=== PATIENT | female | born 1950 | race Caucasian/White ===

== ENCOUNTER 2018-03-26 15:00 | Inpatient (IN) | payer MEDICARE, SELFPAY ==
[2018-03-26] VITALS (10 sets, daily range): BP systolic 136–171; BP diastolic 53–84; PULSE 57–130; RESP 17–22; TEMP 36.7; O2SAT 96–98; BMI 41.6; BMI 40.9
--- NOTE | 2018-03-26 15:07 | EKG12_ITS ---
Test Reason : CP Blood Pressure : / mmHG Vent. Rate : 125 BPM Atrial Rate : 133 BPM P-R Int : 000 ms QRS Dur : 102 ms QT Int : 332 ms P-R-T Axes : 000 088 -17 degrees QTc Int : 479 ms Atrial fibrillation / FLUTTER with rapid ventricular response Incomplete right bundle branch block Nonspecific ST abnormality Abnormal ECG Confirmed by JENNIFFER ONEAL, NIEVES ([id number]), editorial director SOUMYA BARTH ([id number]) on 03/29/2018 1:30:56 PM Referred By: Ana Bradford Confirmed By:NIEVES ABAD MD
--- NOTE | 2018-03-26 15:10 | RAD_ITS ---
STUDY: X-RAY CHEST REASON FOR EXAM: Female, 67 years old. Hypertension. TECHNIQUE: Single AP portable view of the chest. COMPARISON: Comparison is made with prior study dated October 23, 2016. FINDINGS: EKG electrodes are seen. The lungs are clear and expanded. Scattered calcified granulomas. There is no demonstrated pleural abnormality. Sternal cerclage wires and vascular clips are present from a prior sternotomy and coronary artery bypass graft procedure (CABG). Patient is status post aortic valve replacement. Normal mediastinum and janice. Normal visualized pulmonary arteries. Normal visualized aortic arch and descending thoracic aorta. There are diffuse degenerative changes of the visualized thoracic spine. Normal visualized ribs, clavicles, and shoulders. There is no demonstrated abnormality of the visualized soft tissue structures of the upper abdomen. RAD/Chest 1 View (Portable) IMPRESSION: No acute abnormality is seen. Electronically Signed: Krishan Booker MD at 15:38 EST Tel [phone], Service support ,
--- NOTE | 2018-03-26 15:15 | ED.VISSUMM ---
- ER Visit Summary Date of Service: 03/26/18 Chief Complaint: Chest pain and accelerated heart rate History of Present Illness: The patient is a 67 F known history of prior prosthetic valve. Prior triple bypass. COPD, CAD, pzj-iukuxul-uprjbnmgt diabetes. Prior lung CA. No history previously of A. fib. Patient states that around 130-day should accelerate heart rate starting in mid arms. Mild shortness of breath. Denies any prior history. She is on Coumadin secondary to her prosthetic valve. Physical Examination: Older female complaint chest discomfort. Vital signs are stable except for her heart rate that one in the room is in the 130 range. A. fib on the monitor. HEENT exam unremarkable. Neck nontender. Lungs clear to auscultation bilaterally. Heart irregularly irregular rate about 133. Abdomen is soft nontender. Normal bowel sounds no peritoneal signs. Remedies moves all 4. Calves nontender no edema or cords. Neurologically she is awake and alert with no focal motor deficits. Test Results: Initial EKG showed A. fib fib rate of approximately 125. Incomplete right bundle branch block. Inverted T waves in [address] elevation. Patient was given IV Cardizem 25 mg and the second EKG shows what appears to be atrial flutter with a rate of 63. No signs of ischemia. Chest x-ray shows borderline cardiomegaly and mild CHF. CBC normal white count of 6. Hemoglobin 13. Electrolytes unremarkable. Glucose of 257. She is on Coumadin her INR is 2.2 and her troponin is normal. Emergency Department Course and Treatment: Patient undergo cardiac workup. Will receive IV Cardizem for her new onset A. fib RVR. Treatment Plan: Repeat exam patient is doing better with her heart rate now in the 60s. She is still having chest pain an inch of Nitropaste was placed. I very spoken to the hospitalist who has been down to admit the patient to PCU. Disposition: Admission Impression: New onset A. fib RVR Acute chest pain History of prosthetic aortic valve with a prior triple bypass History of CAD, hypertension, wdr-zsvdfgh-tlmzdkxhm diabetes, prior lung CA This note was generated with [employer] dictation software. It may contain incorrect words, spelling, and punctuation that were not noted in review of the chart prior to signing ED Disposition - Plan for ED Patient: Chief Complaint: Chest Pain Referrals: Collin Gamez MD [Primary Care Provider] -
[2018-03-26] MEDS: dilTIAZem 25 MG/5 ML Vial IV BOLUS (15:20)
--- NOTE | 2018-03-26 15:20 | ED.DCSUM_ITS ---
- ER Visit Summary Date of Service: 03/26/18 Chief Complaint: Chest pain and accelerated heart rate History of Present Illness: The patient is a 67 F known history of prior prosthetic valve. Prior triple bypass. COPD, CAD, xis-cwjlfkq-hwonqofmn diabetes. Prior lung CA. No history previously of A. fib. Patient states that around 130-day should accelerate heart rate starting in mid arms. Mild shortness of breath. Denies any prior history. She is on Coumadin secondary to her prosthetic valve. Physical Examination: Older female complaint chest discomfort. Vital signs are stable except for her heart rate that one in the room is in the 130 range. A. fib on the monitor. HEENT exam unremarkable. Neck nontender. Lungs clear to auscultation bilaterally. Heart irregularly irregular rate about 133. Abdomen is soft nontender. Normal bowel sounds no peritoneal signs. Remedies moves all 4. Calves nontender no edema or cords. Neurologically she is awake and alert with no focal motor deficits. Test Results: Initial EKG showed A. fib fib rate of approximately 125. Incomplete right bundle branch block. Inverted T waves in [address] elevation. Patient was given IV Cardizem 25 mg and the second EKG shows what appears to be atrial flutter with a rate of 63. No signs of ischemia. Chest x- ray shows borderline cardiomegaly and mild CHF. CBC normal white count of 6. Hemoglobin 13. Electrolytes unremarkable. Glucose of 257. She is on Coumadin her INR is 2.2 and her troponin is normal. Emergency Department Course and Treatment: Patient undergo cardiac workup. Will receive IV Cardizem for her new onset A. fib RVR. Treatment Plan: Repeat exam patient is doing better with her heart rate now in the 60s. She is still having chest pain an inch of Nitropaste was placed. I very spoken to the hospitalist who has been down to admit the patient to PCU. Disposition: Admission Impression: New onset A. fib RVR Acute chest pain History of prosthetic aortic valve with a prior triple bypass History of CAD, hypertension, gld-bohibta-fmyzrqqnj diabetes, prior lung CA This note was generated with [employer] dictation software. It may contain incorrect words, spelling, and punctuation that were not noted in review of the chart prior to signing ED Disposition - Plan for ED Patient: Chief Complaint: Chest Pain Referrals: Collin Gamez MD [Primary Care Provider] -
[2018-03-26 15:26] LABS: Absolute Lymphocyte Count 1.57 X10^3/ul (0.83-4.51); Absolute Neutrophil Count 4.2 X10^3/uL (2.0-7.7); Basophil# 0.07 X10^3/uL; Basophil% 1.1 % (0-1); Eosinophil# 0.25 X10^3/uL; Eosinophils% 3.9 % (0-5); Hematocrit 40.7 % (37-47); Hemoglobin 13.1 g/dl (12.0-15.0); Lymphocyte # 1.57 X10^3/ul (4.0); Lymphocyte % 24.4 % (19-41); Mean Corp Hgb Conc 32.2 g/gl (32-36); Mean Corpuscular Hgb 26.5 pg (27.0-32.0); Mean Corpuscular Volume 82.2 fL (81-99); Mean Platelet Vol. 11.1 fl (6.2-12.0); Monocyte# 0.37 X10^3/uL; Monocyte% 5.7 % (0-10); Neutrophil # 4.16 X10^3/uL (2.7-7.7); Neutrophil % 64.6 % (47-70); Platelet Count 169 K/mm3 (150-450); RBC Distribution Width CV 16.1 % (11.6-14.6); RBC Distribution Width SD 47.7 fl (35.1-43.9); Red Blood Count 4.95 M/mm3 (4.2-5.4); White Blood Count 6.4 K/mm3 (4.4-11.0)
[2018-03-26 15:31] LABS: International Normalized Ratio 2.2; Prothrombin Time (Protime)PT. 24.7 SECONDS (11.7-14.9)
[2018-03-26 15:35] LABS: POSITIVE COUNT NO; POSITIVE DIFFERENTIAL NO; POSITIVE MORPHOLOGY NO
[2018-03-26 15:38] LABS: Anion Gap 10 (5-15); BUN 13 mg/dL (7-18); BUN/Creat Ratio 18.7 RATIO (10-20); Calcium,Total 9.1 mg/dL (8.5-10.1); Chloride 103 mmol/L (98-107); EST Glomerular Filtration Rate 89 mL/min (>60); Est Glom Filt Rate - Afr Amer 108 mL/min (>60); Estimated Creatinine Clearance 44.54 ml/min; Glucose 257 mg/dL (74-106); Potassium 4.3 mmol/L (3.5-5.1); Sodium Level 137 mmol/L (136-145)
--- NOTE | 2018-03-26 16:14 | NURSING ---
121 OBS KORAM NEW ONSET AFLUTTER AND RVR, CP
--- NOTE | 2018-03-26 16:30 | EKG12_ITS ---
Test Reason : REPEAT EKG Blood Pressure : / mmHG Vent. Rate : 063 BPM Atrial Rate : 267 BPM P-R Int : 000 ms QRS Dur : 102 ms QT Int : 430 ms P-R-T Axes : 000 072 051 degrees QTc Int : 440 ms Atrial flutter with variable A-V block Nonspecific ST abnormality Abnormal ECG Confirmed by JENNIFFER ONEAL, NIEVES ([id number]), movie editor SOUMYA BARTH ([id number]) on 03/29/2018 1:30:11 PM Referred By: Ana Bradford Confirmed By:NIEVES ABAD MD
--- NOTE | 2018-03-26 16:48 | PCM.HP.STD ---
History of Present Illness Date of Admission: 03/26/18 Chief Complaint: chest pain, palpitations The patient is a 67 year old F with an extensive past medical history as listed below including CAD, bicuspid aortic valve status post valve replacement, and hypertension. She was admitted through the ED on 03/26/2018 with a complaint of chest pain and palpitations. She had had such symptoms before and chest pain was left-sided and radiated to her right neck, and was sharp. He had no aggravating or relieving factors. They called the EMS and she was found to be in A. fib and atrial flutter with RVR. She denied any associated shortness of breath, lightheadedness weakness or dizziness, abdominal pain, diarrhea or vomiting. On admission, heart rate was found to be in the 130s; pressure was 171/84, temperature and respiratory rate were normal. She was treated on 9 7% on 4 L of oxygen. Of note patient does not wear oxygen at home. Labs showed unremarkable CBC with initial negative troponin and BMP was also markable. BNP was not checked. Chest x-ray showed clear expanded lungs with no acute abnormality. She is been admitted to be managed for new onset A. fib with RVR. [] Past Medical History Past Medical History (Chronic Problems): Chronic Problems elevated BMI (Chronic) CAD (coronary artery disease) (Chronic) Hx of CABG (Chronic) Type 2 diabetes mellitus (Chronic) Hypertension (Chronic) Chronic obstructive lung disease (Chronic) Allergies adhesive Allergy (Verified 03/26/18 15:02) Rash fluticasone propionate [From Advair Diskus] Allergy (Verified 03/26/18 15:02) Other gabapentin [From Neurontin] Allergy (Verified 03/26/18 15:02) Swelling salmeterol xinafoate [From Advair Diskus] Allergy (Verified 03/26/18 15:02) Other albuterol [From Ventolin HFA] Adverse Reaction (Verified 03/26/18 15:02) Other TOO JITTERY cephalexin monohydrate [From Keflex] Adverse Reaction (Verified 03/26/18 15:02) Other Home Medications: Ambulatory Orders Medication Instructions Recorded Aspirin [Aspirin EC] 81 mg PO DAILY 10/23/16 Furosemide [Lasix] 20 mg PO DAILY 10/23/16 Lansoprazole [Prevacid] 30 mg PO BID 10/23/16 Loratadine 10 mg PO DAILY 10/23/16 Losartan Potassium [Cozaar] 100 mg PO QHS 10/23/16 Metformin(XR) [Glucophage Xr] 1,000 mg PO BID 10/23/16 Polyethylene Glycol 3350 17 gm PO DAILY PRN 10/23/16 Warfarin [Coumadin ([facility])] 6 mg PO SUMOWEFRSA 10/23/16 glipiZIDE [Glucotrol] 10 mg PO DAILY@0730 10/23/16 Albuterol Sulfate [Ventolin Hfa] 2 puff INHALATION Q4H PRN 03/26/18 Amlodipine [Norvasc] 5 mg PO QHS 03/26/18 Atenolol [Tenormin (beta yi)] 100 mg PO DAILY 03/26/18 Atorvastatin Calcium [Lipitor] 20 mg PO QHS 03/26/18 Ferrous Sulfate 325 mg PO BIDCM 03/26/18 Isosorbide Mononitrate [Isosorbide 90 mg PO DAILY 03/26/18 Mononitrate ER] Meclizine HCl [Antivert] 25 mg PO TID PRN PRN 03/26/18 Mupirocin [Bactroban] 1 applicatio NASAL TID PRN 03/26/18 Nitroglycerin [Nitrostat] 0.4 mg SUBLINGUAL Q5M PRN 03/26/18 Nystatin 1 applicatio TP BID PRN 03/26/18 Oxybutynin Chloride [Ditropan Xl] 10 mg PO DAILY 03/26/18 Tizanidine HCl 4 mg PO QHS PRN 03/26/18 Warfarin Sodium 3 mg PO TUTH 03/26/18 Surgical History: - - aortic valve replacement 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: No pertinent psych hx 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 Denies: Chest Pressure, Chest Tightness, Edema, Heaviness, Light Headedness, Orthopnea, Paroxysmal Noc. Dyspnea, Syncope Respiratory: Reports: Shortness of Breath, Shortness of breath at rest, Shortness of breath upon exertion. Denies: Cough, Sputum production, Wheezing Gastrointestinal: Denies: Abdominal Pain, Nausea, Vomiting Genitourinary: Denies: Dysuria Musculoskeletal: Denies: Joint Pain, Joint Tenderness Neurological: Denies: Numbness, Tingling, Focal weakness Psychiatric: Denies: Anxiety, Depression, Homicidal Ideations, Suicidal Ideations Hematologic/ Lymphatic: Denies: Easy Bruising, Easy Bleeding VTE Information - Inpt Only VTE Present on Admission: No VTE Pharm Prophylaxis ordered?: No Reason prophylaxis not ordered:: Treatment Not Indicated - on coumadin. INR is therapeutic - Physical Exam General: Alert, Oriented x3, Cooperative, No apparent distress HEENT: Atraumatic, PERRLA, EOMI, Normocephalic Oral: Moist Mucosa Neck: Supple, No JVD, Negative Carotid Bruits Lungs: Clear to auscultation, Normal air movement, - - on 4L of oxygen Cardiovascular: Regular rate, Irregular Rate - and rhythm, - - mechanical aortic valve click Abdomen: Bowel Sounds Present, Soft, Non Tender, Non-Distended, No Hepato-splenomegaly Extremities: No clubbing, No cyanosis, No edema, Capillary Refill Less than 3 Seconds Skin: No rashes, No breakdown Musculoskeletal: No Tenderness to Palpation of Joints or Extremities Lymphatic: No Cervical, Supraclavicular, or Inguinal Adenopathy Neurological: Cranial nerves II-XII grossly intact Psych/Mental Status: Normal Affect, Appropriate, Alert and oriented to time, place, person, mood and affect Vital Signs Temp Pulse Resp BP Pulse Ox 98.0 F 57 L 17 145/53 H 97 03/26/18 15:02 03/26/18 16:07 03/26/18 16:07 03/26/18 16:07 03/26/18 16:07 Oxygen Flow Rate (L/min) 4 Oxygen Delivery Method Nasal Cannula Weight: 231 lb 0.711 oz Body Mass Index (BMI) 40.9 Laboratory Tests Past 24 Hrs 03/26/18 03/26/18 03/26/18 15:10 15:10 15:10 WBC 6.4 RBC 4.95 Hgb 13.1 Hct 40.7 MCV 82.2 MCH 26.5 L MCHC 32.2 RDW 16.1 H RDW Differential 47.7 H Plt Count 169 MPV 11.1 Immature Gran % (Auto) 0.300 Neut % (Auto) 64.6 Lymph % (Auto) 24.4 Gilmer % (Auto) 5.7 Eos % (Auto) 3.9 Baso % (Auto) 1.1 H Absolute Neuts (auto) 4.2 Absolute Lymphs (auto) 1.57 Total Counted Not Reportable PT 24.7 H INR 2.2 Sodium 137 Potassium 4.3 Chloride 103 Carbon Dioxide 24.0 Anion Gap 10 BUN 13 Creatinine 0.70 Estim Creat Clear Calc 44.54 Est GFR (MDRD) Af Amer 108 Est GFR (MDRD) Non-Af 89 BUN/Creatinine Ratio 18.7 Glucose 257 H Calcium 9.1 Troponin I < 0.015 Diagnostic Data Chest X-Ray 03/26/18 15:10 IMPRESSION: No acute abnormality is seen. Electronically Signed: Krishan Booker MD at 15:38 EST Tel [phone], Service support , Assessment/Plan 67-year-old female with past medical history of CAD, aortic valve replacement due to bicuspid aortic valve on Coumadin, and hypertension presenting with complaint of chest pain and palpitations. 1. New onset afib with RVR now rate controlled. HR was in 130s on admission was given one dose of IV cardizem in the Ed EKG showed Afib with HR of 130, incomplete RBBB and inverted T waves in leads 3 and aVG. CXR showed no acute cardiopulmonary process admit to PCU with telemetry consult cardiolology o/a of new onset Afib check TSH and BNP get 2D echocardiogram 2. Chest pain to rule out ACS Troponin negative. We will cycle. 2D echo ordered. For stress test tomorrow if troponins remain negative. Sublingual nitroglycerin as needed. Aspirin 81 mg daily. 3. Bicuspid aortic valve status post aortic valve replacement: On Coumadin. INR is 2.2. continue coumadin. INR target likely 2.5-3.5 4. CAD s/p triple bypass: on coumadin, statin and atenolol. 5. Hypertension: Continue BP meds 6. Type 2 diabetes mellitus: Insulin sliding scale. on glipizide and metformin; will hold. Accuchecks ACHS. Continue current diabetes medications. Hold metformin. 7. History of small cell lung cancer: Was treated with radiation and is now stable. To follow-up with oncology on discharge. 8. Goiter: States she has been told that she has enlarged thyroid with multiple nodules in it. She is told no intervention is needed. Will check TSH in light of new onset A. fib. DVT prophylaxis: On Coumadin Code status: Patient counseled extensively about different types of CODE STATUS including full code, DNR CCA and DNR CCA. Patient elects to be full code. Total [id number] time 17 minutes. Code Visit Inpatient E&M: 29069 Init Hosp L3 Procedures: 46142 Advncd Care Plan 30 Min
--- NOTE | 2018-03-26 16:49 | EKG12_ITS ---
Test Reason : CP ADMIT Blood Pressure : / mmHG Vent. Rate : 061 BPM Atrial Rate : 267 BPM P-R Int : 000 ms QRS Dur : 106 ms QT Int : 446 ms P-R-T Axes : 268 079 056 degrees QTc Int : 448 ms Atrial flutter with variable A-V block Abnormal ECG Confirmed by JENNIFFER ONEAL, NIEVES ([id number]), field map editor SOUMYA BARTH ([id number]) on 03/29/2018 2:10:55 PM Referred By: Ana Bradford Confirmed By:NIEVES ABAD MD
--- NOTE | 2018-03-26 16:52 | HP.PCM_ITS ---
History of Present Illness Date of Admission: 03/26/18 Chief Complaint: chest pain, palpitations The patient is a 67 year old F with an extensive past medical history as listed below including CAD, bicuspid aortic valve status post valve replacement, and hypertension. She was admitted through the ED on 03/26/2018 with a complaint of chest pain and palpitations. She had had such symptoms before and chest pain was left-sided and radiated to her right neck, and was sharp. He had no aggravating or relieving factors. They called the EMS and she was found to be in A. fib and atrial flutter with RVR. She denied any associated shortness of breath, lightheadedness weakness or dizziness, abdominal pain, diarrhea or vomiting. On admission, heart rate was found to be in the 130s; pressure was 171/84, temperature and respiratory rate were normal. She was treated on 9 7% on 4 L of oxygen. Of note patient does not wear oxygen at home. Labs showed unremarkable CBC with initial negative troponin and BMP was also markable. BNP was not checked. Chest x-ray showed clear expanded lungs with no acute abnor mality. She is been admitted to be managed for new onset A. fib with RVR. [] Past Medical History Past Medical History (Chronic Problems): Chronic Problems elevated BMI (Chronic) CAD (coronary artery disease) (Chronic) Hx of CABG (Chronic) Type 2 diabetes mellitus (Chronic) Hypertension (Chronic) Chronic obstructive lung disease (Chronic) Allergies adhesive Allergy (Verified 03/26/18 15:02) Rash fluticasone propionate [From Advair Diskus] Allergy (Verified 03/26/18 15:02) Other gabapentin [From Neurontin] Allergy (Verified 03/26/18 15:02) Swelling salmeterol xinafoate [From Advair Diskus] Allergy (Verified 03/26/18 15:02) Other albuterol [From Ventolin HFA] Adverse Reaction (Verified 03/26/18 15:02) Other TOO JITTERY cephalexin monohydrate [From Keflex] Adverse Reaction (Verified 03/26/18 15:02) Other Home Medications: Ambulatory Orders Medication Instructions Recorded Aspirin [Aspirin EC] 81 mg PO DAILY 10/23/16 Furosemide [Lasix] 20 mg PO DAILY 10/23/16 Lansoprazole [Prevacid] 30 mg PO BID 10/23/16 Loratadine 10 mg PO DAILY 10/23/16 Losartan Potassium [Cozaar] 100 mg PO QHS 10/23/16 Metformin(XR) [Glucophage Xr] 1,000 mg PO BID 10/23/16 Polyethylene Glycol 3350 17 gm PO DAILY PRN 10/23/16 Warfarin [Coumadin (PBKC)] 6 mg PO SUMOWEFRSA 10/23/16 glipiZIDE [Glucotrol] 10 mg PO DAILY@0730 10/23/16 Albuterol Sulfate [Ventolin Hfa] 2 puff INHALATION Q4H PRN 03/26/18 Amlodipine [Norvasc] 5 mg PO QHS 03/26/18 Atenolol [Tenormin (beta yi)] 100 mg PO DAILY 03/26/18 Atorvastatin Calcium [Lipitor] 20 mg PO QHS 03/26/18 Ferrous Sulfate 325 mg PO BIDCM 03/26/18 Isosorbide Mononitrate [Isosorbide 90 mg PO DAILY 03/26/18 Mononitrate ER] Meclizine HCl [Antivert] 25 mg PO TID PRN PRN 03/26/18 Mupirocin [Bactroban] 1 applicatio NASAL TID PRN 03/26/18 Nitroglycerin [Nitrostat] 0.4 mg SUBLINGUAL Q5M PRN 03/26/18 Nystatin 1 applicatio TP BID PRN 03/26/18 Oxybutynin Chloride [Ditropan Xl] 10 mg PO DAILY 03/26/18 Tizanidine HCl 4 mg PO QHS PRN 03/26/18 Warfarin Sodium 3 mg PO TUTH 03/26/18 Surgical History: - - aortic valve replacement 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: No pertinent psych hx NEUROCRITICAL CARE PHYSICIAN History: No pertinent NEUROCRITICAL CARE PHYSICIAN history Lives: With Family Smoking Status: Former smoker - *Family History Sibling History Items: Cancer - colorectal cancer in sister, Heart Disease Maternal History Items: Heart Disease, Hypertension Paternal History Items: Heart Disease, Hypertension Review of Systems Constitutional: Denies: Chills, Fever, Malaise, Weakness, Weight Change Eyes: Denies: Blurred vision HEENT: Denies: Head Aches, Sinus Congestion, Sinus Drainage Cardiovascular: Reports: Chest Pain, Palpitations. Denies: Chest Pressure, Chest Tightness, Edema, Heaviness, Light Headedness, Orthopnea, Paroxysmal Noc. Dyspnea, Syncope Respiratory: Reports: Shortness of Breath, Shortness of breath at rest, Shortness of breath upon exertion. Denies: Cough, Sputum production, Wheezing Gastrointestinal: Denies: Abdominal Pain, Nausea, Vomiting Genitourinary: Denies: Dysuria Musculoskeletal: Denies: Joint Pain, Joint Tenderness Neurological: Denies: Numbness, Tingling, Focal weakness Psychiatric: Denies: Anxiety, Depression, Homicidal Ideations, Suicidal Ideations Hematologic/ Lymphatic: Denies: Easy Bruising, Easy Bleeding VTE Information - Inpt Only VTE Present on Admission: No VTE Pharm Prophylaxis ordered?: No Reason prophylaxis not ordered:: Treatment Not Indicated - on coumadin. INR is therapeutic - Physical Exam General: Alert, Oriented x3, Cooperative, No apparent distress HEENT: Atraumatic, PERRLA, EOMI, Normocephalic Oral: Moist Mucosa Neck: Supple, No JVD, Negative Carotid Bruits Lungs: Clear to auscultation, Normal air movement, - - on 4L of oxygen Cardiovascular: Regular rate, Irregular Rate - and rhythm, - - mechanical aortic valve click Abdomen: Bowel Sounds Present, Soft, Non Tender, Non-Distended, No Hepato- splenomegaly Extremities: No clubbing, No cyanosis, No edema, Capillary Refill Less than 3 Seconds Skin: No rashes, No breakdown Musculoskeletal: No Tenderness to Palpation of Joints or Extremities Lymphatic: No Cervical, Supraclavicular, or Inguinal Adenopathy Neurological: Cranial nerves II-XII grossly intact Psych/Mental Status: Normal Affect, Appropriate, Alert and oriented to time, place, person, mood and affect Vital Signs Temp Pulse Resp BP Pulse Ox 98.0 F 57 L 17 145/53 H 97 03/26/18 15:02 03/26/18 16:07 03/26/18 16:07 03/26/18 16:07 03/26/18 16:07 Oxygen Flow Rate (L/min) 4 Oxygen Delivery Method Nasal Cannula Weight: 231 lb 0.711 oz Body Mass Index (BMI) 40.9 Laboratory Tests Past 24 Hrs 03/26/18 03/26/18 03/26/18 15:10 15:10 15:10 WBC 6.4 RBC 4.95 Hgb 13.1 Hct 40.7 MCV 82.2 MCH 26.5 L MCHC 32.2 RDW 16.1 H RDW Differential 47.7 H Plt Count 169 MPV 11.1 Immature Gran % (Auto) 0.300 Neut % (Auto) 64.6 Lymph % (Auto) 24.4 [place] % (Auto) 5.7 Eos % (Auto) 3.9 Baso % (Auto) 1.1 H Absolute Neuts (auto) 4.2 Absolute Lymphs (auto) 1.57 Total Counted Not Reportable PT 24.7 H INR 2.2 Sodium 137 Potassium 4.3 Chloride 103 Carbon Dioxide 24.0 Anion Gap 10 BUN 13 Creatinine 0.70 Estim Creat Clear Calc 44.54 Est GFR (MDRD) Af Amer 108 Est GFR (MDRD) Non-Af 89 BUN/Creatinine Ratio 18.7 Glucose 257 H Calcium 9.1 Troponin I < 0.015 Diagnostic Data Chest X-Ray 03/26/18 15:10 IMPRESSION: No acute abnormality is seen. Electronically Signed: Krishan Booker MD at 15:38 EST Tel [phone], Service support , Assessment/Plan 67-year-old female with past medical history of CAD, aortic valve replacement due to bicuspid aortic valve on Coumadin, and hypertension presenting with complaint of chest pain and palpitations. 1. New onset afib with RVR * now rate controlled. HR was in 130s on admission * was given one dose of IV cardizem in the Ed * EKG showed Afib with HR of 130, incomplete RBBB and inverted T waves in leads 3 and aVG. * CXR showed no acute cardiopulmonary process * admit to PCU with telemetry * consult cardiolology o/a of new onset Afib * check TSH and BNP * get 2D echocardiogram * 2. Chest pain to rule out ACS * Troponin negative. We will cycle. * 2D echo ordered. * For stress test tomorrow if troponins remain negative. * Sublingual nitroglycerin as needed. Aspirin 81 mg daily. * 3. Bicuspid aortic valve status post aortic valve replacement: * On Coumadin. INR is 2.2. continue coumadin. INR target likely 2.5-3.5 * 4. CAD s/p triple bypass: on coumadin, statin and atenolol. 5. Hypertension: Continue BP meds 6. Type 2 diabetes mellitus: Insulin sliding scale. on glipizide and metformin; will hold. Accuchecks ACHS. Continue current diabetes medications. Hold metformin. 7. History of small cell lung cancer: Was treated with radiation and is now stable. To follow-up with oncology on discharge. 8. Goiter: States she has been told that she has enlarged thyroid with multiple nodules in it. She is told no intervention is needed. Will check TSH in light of new onset A. fib. DVT prophylaxis: On Coumadin Code status: Patient counseled extensively about different types of CODE STATUS including full code, DNR CCA and DNR CCA. Patient elects to be full code. Total [id number] time 17 minutes. Code Visit Inpatient E&M: 53340 Init Hosp L3 Procedures: 69316 Advncd Care Plan 30 Min
--- NOTE | 2018-03-26 18:18 | PCM.CONS.C ---
Reason for Consult Date of Consultation: 03/26/18 Reason for Consultation: Abnormal cardiac rhythm History of Present Illness: The patient is a 67 year old F with an extensive past medical history consisting of coronary artery disease status post coronary artery bypass surgery, prosthetic aortic valve replacement and hypertension. She presented to the emergency room with complaints of chest discomfort and palpitations. She said that she had had some symptoms of chest discomfort before with chest pain radiating down the right side of her neck. She called emergency medical squad and when they saw her she was noted to be in atrial fibrillation and they brought her in to be in the emergency room. In the emergency room she was evaluated and was noted to be in atrial fibrillation with rapid ventricular response rate. She was treated with intravenous Cardizem with improvement in her heart rate. She denied any associated dizziness or diaphoresis near syncope or syncope. She does not think that she has had any episode of atrial fibrillation in the past. She has been on anticoagulation for her prosthetic valve. Cardiology was called to evaluate her. She previously was following with Dr. Wade Cramer at the [facility]. Past Medical History Allergies/Adverse Reactions: Allergies adhesive Allergy (Verified 03/26/18 15:02) Rash fluticasone propionate [From Advair Diskus] Allergy (Verified 03/26/18 17:00) chest pain gabapentin [From Neurontin] Allergy (Verified 03/26/18 17:00) Swelling of feet and legs salmeterol xinafoate [From Advair Diskus] Allergy (Verified 03/26/18 17:00) chest pains albuterol [From Ventolin HFA] Adverse Reaction (Verified 03/26/18 17:00) jittery TOO JITTERY cephalexin monohydrate [From Keflex] Adverse Reaction (Verified 03/26/18 17:00) abdominal cramping pregabalin Adverse Reaction (Verified 03/26/18 17:00) makes me slow to respond Home Medications: Ambulatory Orders Medication Instructions Recorded Aspirin [Aspirin EC] 81 mg PO DAILY 10/23/16 Furosemide [Lasix] 20 mg PO DAILY 10/23/16 Lansoprazole [Prevacid] 30 mg PO BID 10/23/16 Loratadine 10 mg PO DAILY 10/23/16 Losartan Potassium [Cozaar] 100 mg PO QHS 10/23/16 Metformin(XR) [Glucophage Xr] 1,000 mg PO BID 10/23/16 Polyethylene Glycol 3350 17 gm PO DAILY PRN 10/23/16 Warfarin [Coumadin (PBKC)] 6 mg PO SUMOWEFRSA 10/23/16 glipiZIDE [Glucotrol] 10 mg PO DAILY@0730 10/23/16 Albuterol Sulfate [Ventolin Hfa] 2 puff INHALATION Q4H PRN 03/26/18 Amlodipine [Norvasc] 5 mg PO QHS 03/26/18 Atenolol [Tenormin (beta yi)] 100 mg PO DAILY 03/26/18 Atorvastatin Calcium [Lipitor] 20 mg PO QHS 03/26/18 Ferrous Sulfate 325 mg PO BIDCM 03/26/18 Isosorbide Mononitrate [Isosorbide 90 mg PO DAILY 03/26/18 Mononitrate ER] Meclizine HCl [Antivert] 25 mg PO TID PRN PRN 03/26/18 Mupirocin [Bactroban] 1 applicatio NASAL TID PRN 03/26/18 Nitroglycerin [Nitrostat] 0.4 mg SUBLINGUAL Q5M PRN 03/26/18 Nystatin 1 applicatio TP BID PRN 03/26/18 Oxybutynin Chloride [Ditropan Xl] 10 mg PO DAILY 03/26/18 Tizanidine HCl 4 mg PO QHS PRN 03/26/18 Warfarin Sodium 3 mg PO TUTH 03/26/18 Past Medical History (Chronic Problems): Chronic Problems elevated BMI (Chronic) CAD (coronary artery disease) (Chronic) Hx of CABG (Chronic) Type 2 diabetes mellitus (Chronic) Hypertension (Chronic) Chronic obstructive lung disease (Chronic) Surgical History: coronary bypass surgery, - - aortic valve replacement 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: No pertinent psych hx INSTRUCTIONAL DEVELOPER History: No pertinent INSTRUCTIONAL DEVELOPER history - *Family History Sibling History Items: Cancer - colorectal cancer in sister, Heart Disease Maternal History Items: Heart Disease, Hypertension Paternal History Items: Heart Disease, Hypertension Lives: With Family Smoking Status: Former smoker Tobacco Use: Cigarettes Alcohol: None Drugs: None Review of Systems - Review of Systems General: Denies: Fever, Night Sweats, Fatigue HEENT: Denies: Vision Change Cardiovascular: Reports: Chest Discomfort, Palpitations. Denies: Shortness of Breath, Orthopnea, PND, Peripheral Edema, Lightheadedness, Dizziness, Near Syncope, Syncope Respiratory: Denies: Cough, Sputum Production, Hemoptysis Gastrointestinal: Denies: Indigestion, Hematemesis, Hematochezia, Melena Genitourinary: Denies: Dysuria, Hematuria Muscoloskeletal: Denies: Myalgias Skin: Denies: Rash Neurological: Denies: Dizziness Psychiatric: Denies: Anxiety Endocrine: Denies: Unexplained Weight Loss Hematologic/ Lymphatic: Denies: Anemia Subjectve: Pleasant lady in no apparent distress Objective: Vital Signs Temp Pulse Resp BP Pulse Ox 98.1 F 64 20 H 144/69 H 96 03/26/18 17:13 03/26/18 17:13 03/26/18 17:13 03/26/18 17:14 03/26/18 17:28 Oxygen Flow Rate (L/min) 3 Oxygen Delivery Method Nasal Cannula Weight: 231 lb 0.711 oz Body Mass Index (BMI) 40.9 General: Awake, Alert, Oriented x 3 HEENT: PERRL, EOMI, Sclera Non Icteric Neck: Supple, Good ROM, No Lymph Node Enlargement Lungs: Clear to auscultation Cardiovascular: Regular Rhythm, Normal S1, Normal S2, No Murmurs, No Rubs, No Gallops, [place] Prosthetic S1 Vascular: No Carotid Bruits, Normal Femoral Pulses, Normal Radial Pulses, Normal Dorsalis Pedal Pulse, Normal Posterior Tibial Pulses Abdomen: Bowel Sounds Present, Soft, Non Tender, No HSM, No Organomegaly Extremities: No Cyanosis, No Clubbing, No edema Musculoskeletal: No Erythema Skin: No Rashes Lymphatic: No Lymph Node Enlargement Neurological: No Focal Motor or Sensory Deficit Psych/Mental Status: Appropriate 03/26/18 15:10: WBC 6.4, RBC 4.95, Hgb 13.1, Hct 40.7, MCV 82.2, MCH 26.5 L, MCHC 32.2, RDW 16.1 H, RDW Differential 47.7 H, Plt Count 169, MPV 11.1, Immature Gran % (Auto) 0.300, Neut % (Auto) 64.6, Lymph % (Auto) 24.4, [place] % (Auto) 5.7, Eos % (Auto) 3.9, Baso % (Auto) 1.1 H, Absolute Neuts (auto) 4.2, Total Counted Not Reportable 12/03/18 15:10: Sodium 137, Potassium 4.3, Chloride 103, Carbon Dioxide 24.0, Anion Gap 10, BUN 13, Creatinine 0.70, Est GFR (MDRD) Af Amer 108, Est GFR (MDRD) Non-Af 89, BUN/Creatinine Ratio 18.7, Glucose 257 H, Calcium 9.1, Troponin I < 0.015 03/26/18 15:10: PT 24.7 H, INR 2.2 Rhythm: EKG: Initial EKG demonstrated atrial fibrillation with a rate of 125 bpm., Follow-up EKG demonstrates atrial flutter with a controlled ventricular response rate of 70 bpm. Assessment/Plan 1. Atrial fibrillation with rapid ventricular response rate Patient presents with recent onset atrial fibrillation flutter which responded very well to intravenous Cardizem. Would suggest continue anticoagulation with Coumadin Echocardiogram to assess her left ventricular function Agree with the increase in the beta-yi to 100 mg of atenolol We will obtain records of anticoagulation from her primary woodworking bench carpenter office. If she has been noted to be therapeutic for at least a month may consider DC cardioversion 2. Chest pain Patient has known coronary artery disease status post coronary bypass surgery Chest discomfort is somewhat atypical but thus far her cardiac enzymes are normal with no abnormal EKG findings. If enzymes remain normal may recommend a pharmacologic myocardial perfusion stress test and further treatment depending on the findings 3. 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 Coronary artery disease Patient is status post coronary bypass surgery We will continue cardiac enzymes to rule out acute coronary syndrome 5. Hypertension Pressure control appears to be fair Would recommend the addition of the beta-yi. Thank you for allowing me to participate in the care of your patient. Please don't hesitate to call if any issues arise
[2018-03-26 18:19] LABS: Partial Thromboplast Time 49.7 Seconds (24.1-36.2)
[2018-03-26 18:22] LABS: Thyroid Stim Hormone (TSH) 0.94 uIU/mL (0.358-3.74)
--- NOTE | 2018-03-26 18:23 | CON.PCM_ITS ---
Reason for Consult Date of Consultation: 03/26/18 Reason for Consultation: Abnormal cardiac rhythm History of Present Illness: The patient is a 67 year old F with an extensive past medical history consisting of coronary artery disease status post coronary artery bypass surgery, prosthetic aortic valve replacement and hypertension. She presented to the emergency room with complaints of chest discomfort and palpitations. She said that she had had some symptoms of chest discomfort before with chest pain radiating down the right side of her neck. She called emergency medical squad and when they saw her she was noted to be in atrial fibrillation and they brought her in to be in the emergency room. In the emergency room she was evaluated and was noted to be in atrial fibrillation with rapid ventricular response rate. She was treated with intravenous Cardizem with improvement in her heart rate. She denied any associated dizziness or diaphoresis near syncope or syncope. She does not think that she has had any episode of atrial fibrillation in the past. She has been on anticoagulation for her prosthetic valve. Cardiology was called to evaluate her. She previously was following with Dr. Wade Cramer at the [facility]. Past Medical History Allergies/Adverse Reactions: Allergies adhesive Allergy (Verified 03/26/18 15:02) Rash fluticasone propionate [From Advair Diskus] Allergy (Verified 03/26/18 17:00) chest pain gabapentin [From Neurontin] Allergy (Verified 03/26/18 17:00) Swelling of feet and legs salmeterol xinafoate [From Advair Diskus] Allergy (Verified 03/26/18 17:00) chest pains albuterol [From Ventolin HFA] Adverse Reaction (Verified 03/26/18 17:00) jittery TOO JITTERY cephalexin monohydrate [From Keflex] Adverse Reaction (Verified 03/26/18 17:00) abdominal cramping pregabalin Adverse Reaction (Verified 03/26/18 17:00) makes me slow to respond Home Medications: Ambulatory Orders Medication Instructions Recorded Aspirin [Aspirin EC] 81 mg PO DAILY 10/23/16 Furosemide [Lasix] 20 mg PO DAILY 10/23/16 Lansoprazole [Prevacid] 30 mg PO BID 10/23/16 Loratadine 10 mg PO DAILY 10/23/16 Losartan Potassium [Cozaar] 100 mg PO QHS 10/23/16 Metformin(XR) [Glucophage Xr] 1,000 mg PO BID 10/23/16 Polyethylene Glycol 3350 17 gm PO DAILY PRN 10/23/16 Warfarin [Coumadin (PBKC)] 6 mg PO SUMOWEFRSA 10/23/16 glipiZIDE [Glucotrol] 10 mg PO DAILY@0730 10/23/16 Albuterol Sulfate [Ventolin Hfa] 2 puff INHALATION Q4H PRN 03/26/18 Amlodipine [Norvasc] 5 mg PO QHS 03/26/18 Atenolol [Tenormin (beta yi)] 100 mg PO DAILY 03/26/18 Atorvastatin Calcium [Lipitor] 20 mg PO QHS 03/26/18 Ferrous Sulfate 325 mg PO BIDCM 03/26/18 Isosorbide Mononitrate [Isosorbide 90 mg PO DAILY 03/26/18 Mononitrate ER] Meclizine HCl [Antivert] 25 mg PO TID PRN PRN 03/26/18 Mupirocin [Bactroban] 1 applicatio NASAL TID PRN 03/26/18 Nitroglycerin [Nitrostat] 0.4 mg SUBLINGUAL Q5M PRN 03/26/18 Nystatin 1 applicatio TP BID PRN 03/26/18 Oxybutynin Chloride [Ditropan Xl] 10 mg PO DAILY 03/26/18 Tizanidine HCl 4 mg PO QHS PRN 03/26/18 Warfarin Sodium 3 mg PO TUTH 03/26/18 Past Medical History (Chronic Problems): Chronic Problems elevated BMI (Chronic) CAD (coronary artery disease) (Chronic) Hx of CABG (Chronic) Type 2 diabetes mellitus (Chronic) Hypertension (Chronic) Chronic obstructive lung disease (Chronic) Surgical History: coronary bypass surgery, - - aortic valve replacement 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: No pertinent psych hx 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 Denies: Shortness of Breath, Orthopnea, PND, Peripheral Edema, Lightheadedness, Dizziness, Near Syncope, Syncope Respiratory: Denies: Cough, Sputum Production, Hemoptysis Gastrointestinal: Denies: Indigestion, Hematemesis, Hematochezia, Melena Genitourinary: Denies: Dysuria, Hematuria Muscoloskeletal: Denies: Myalgias Skin: Denies: Rash Neurological: Denies: Dizziness Psychiatric: Denies: Anxiety Endocrine: Denies: Unexplained Weight Loss Hematologic/ Lymphatic: Denies: Anemia Subjectve: Pleasant lady in no apparent distress Objective: Vital Signs Temp Pulse Resp BP Pulse Ox 98.1 F 64 20 H 144/69 H 96 03/26/18 17:13 03/26/18 17:13 03/26/18 17:13 03/26/18 17:14 03/26/18 17:28 Oxygen Flow Rate (L/min) 3 Oxygen Delivery Method Nasal Cannula Weight: 231 lb 0.711 oz Body Mass Index (BMI) 40.9 General: Awake, Alert, Oriented x 3 HEENT: PERRL, EOMI, Sclera Non Icteric Neck: Supple, Good ROM, No Lymph Node Enlargement Lungs: Clear to auscultation Cardiovascular: Regular Rhythm, Normal S1, Normal S2, No Murmurs, No Rubs, No Gallops, [place] Prosthetic S1 Vascular: No Carotid Bruits, Normal Femoral Pulses, Normal Radial Pulses, Normal Dorsalis Pedal Pulse, Normal Posterior Tibial Pulses Abdomen: Bowel Sounds Present, Soft, Non Tender, No HSM, No Organomegaly Extremities: No Cyanosis, No Clubbing, No edema Musculoskeletal: No Erythema Skin: No Rashes Lymphatic: No Lymph Node Enlargement Neurological: No Focal Motor or Sensory Deficit Psych/Mental Status: Appropriate 03/26/18 15:10: WBC 6.4, RBC 4.95, Hgb 13.1, Hct 40.7, MCV 82.2, MCH 26.5 L, MCHC 32.2, RDW 16.1 H, RDW Differential 47.7 H, Plt Count 169, MPV 11.1, Immature Gran % (Auto) 0.300, Neut % (Auto) 64.6, Lymph % (Auto) 24.4, [place] % (Auto) 5.7, Eos % (Auto) 3.9, Baso % (Auto) 1.1 H, Absolute Neuts (auto) 4.2, Total Counted Not Reportable 12/03/18 15:10: Sodium 137, Potassium 4.3, Chloride 103, Carbon Dioxide 24.0, Anion Gap 10, BUN 13, Creatinine 0.70, Est GFR (MDRD) Af Amer 108, Est GFR (MDRD) Non-Af 89, BUN/Creatinine Ratio 18.7, Glucose 257 H, Calcium 9.1, Troponin I < 0.015 03/26/18 15:10: PT 24.7 H, INR 2.2 Rhythm: EKG: Initial EKG demonstrated atrial fibrillation with a rate of 125 bpm., Follow-up EKG demonstrates atrial flutter with a controlled ventricular response rate of 70 bpm. Assessment/Plan 1. Atrial fibrillation with rapid ventricular response rate * Patient presents with recent onset atrial fibrillation flutter which responded very well to intravenous Cardizem. * Would suggest continue anticoagulation with Coumadin * Echocardiogram to assess her left ventricular function * Agree with the increase in the beta-yi to 100 mg of atenolol * We will obtain records of anticoagulation from her primary home care associate office. If she has been noted to be therapeutic for at least a month may consider DC cardioversion * 2. Chest pain * Patient has known coronary artery disease status post coronary bypass surgery * Chest discomfort is somewhat atypical but thus far her cardiac enzymes are normal with no abnormal EKG findings. * If enzymes remain normal may recommend a pharmacologic myocardial perfusion stress test and further treatment depending on the findings * 3. Prosthetic aortic valve- * Patient has been on anticoagulation and appears to be functioning well * Obtain echocardiogram to assess the above * Obtain records to confirm an INR of 2.5-3.5 * 4. Coronary artery disease * Patient is status post coronary bypass surgery * We will continue cardiac enzymes to rule out acute coronary syndrome * 5. Hypertension * Pressure control appears to be fair * Would recommend the addition of the beta-yi. * * Thank you for allowing me to participate in the care of your patient. Please don't hesitate to call if any issues arise
[2018-03-26 18:27] LABS: BNP,B-Type NATRIURETIC PEPTIDE 150.3 pg/mL (0-100)
[2018-03-26] MEDS: Famotidine 20 MG Tablet PO (21:00)
[2018-03-26] MEDS: Pantoprazole Sodium 40 MG Tablet PO (21:00)
[2018-03-26] MEDS: Atorvastatin Calcium 20 MG Tablet PO (21:00)
[2018-03-26] MEDS: Losartan Potassium 100 MG Tablet PO (21:00)
[2018-03-26] MEDS: amLODIPine 5 MG Tablet PO (21:00)
[2018-03-26] MEDS: Insulin Lispro 100 UNIT/ML INSULN.PEN SQ (21:10)
[2018-03-26] MEDS: tiZANidine HCl 2 MG Tablet 4 MG PO (21:12)
[2018-03-26 23:31] LABS: Bedside Glucose 202 mg/dL (70-110)
[2018-03-27] VITALS (13 sets, daily range): BP systolic 131–197; BP diastolic 60–80; PULSE 61–71; RESP 12–20; TEMP 36.6–36.8; O2SAT 94–97
[2018-03-27 05:18] LABS: Absolute Lymphocyte Count 1.93 X10^3/ul (0.83-4.51); Absolute Neutrophil Count 4.1 X10^3/uL (2.0-7.7); Basophil# 0.08 X10^3/uL; Basophil% 1.1 % (0-1); Eosinophil# 0.28 X10^3/uL; Hematocrit 37.1 % (37-47); Lymphocyte # 1.93 X10^3/ul (4.0); Lymphocyte % 27.7 % (19-41); Mean Corp Hgb Conc 32.3 g/gl (32-36); Mean Corpuscular Hgb 26.8 pg (27.0-32.0); Mean Platelet Vol. 11.5 fl (6.2-12.0); Monocyte# 0.57 X10^3/uL; Monocyte% 8.2 % (0-10); Neutrophil # 4.09 X10^3/uL (2.7-7.7); Neutrophil % 58.6 % (47-70); Platelet Count 172 K/mm3 (150-450); RBC Distribution Width SD 47.7 fl (35.1-43.9); Red Blood Count 4.47 M/mm3 (4.2-5.4)
[2018-03-27 05:19] LABS: POSITIVE COUNT NO; POSITIVE DIFFERENTIAL NO; POSITIVE MORPHOLOGY NO
--- NOTE | 2018-03-27 05:30 | EKG12_ITS ---
Test Reason : AM EKG Blood Pressure : / mmHG Vent. Rate : 070 BPM Atrial Rate : 280 BPM P-R Int : 000 ms QRS Dur : 110 ms QT Int : 436 ms P-R-T Axes : 075 082 061 degrees QTc Int : 470 ms Atrial flutter with 4:1 A-V conduction Nonspecific ST abnormality Abnormal ECG Confirmed by JENNIFFER ONEAL, NIEVES ([id number]), movie editor SOUMYA BARTH ([id number]) on 03/29/2018 1:50:49 PM Referred By: Ana Bradford Confirmed By:NIEVES ABAD MD
[2018-03-27 05:33] LABS: Anion Gap 9 (5-15); BUN 14 mg/dL (7-18); BUN/Creat Ratio 19.4 RATIO (10-20); Calcium,Total 8.6 mg/dL (8.5-10.1); Chloride 105 mmol/L (98-107); Creatinine, Serum 0.72 mg/dL (0.55-1.02); EST Glomerular Filtration Rate 85 mL/min (>60); Est Glom Filt Rate - Afr Amer 103 mL/min (>60); Estimated Creatinine Clearance 44.54 ml/min; Glucose 163 mg/dL (74-106); Sodium Level 142 mmol/L (136-145)
[2018-03-27 05:36] LABS: International Normalized Ratio 2.7; Prothrombin Time (Protime)PT. 28.9 SECONDS (11.7-14.9)
[2018-03-27 05:37] LABS: Partial Thromboplast Time 56.2 Seconds (24.1-36.2)
--- NOTE | 2018-03-27 05:55 | NURSING ---
Pt. resting in bed and wanted oxygen off due to nose dryness. removed oxygen and raised HOB to 30 degrees so pt. could take morning ASA. Upon raising HOB, pt. c/o dizziness and felt like she was going to pass out. 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 HR had dropped to 33. BP was 197/80. Placed pt back on oxygen 2L, repeat BP was 162/69, HR 65. Pt. also reported chest pain 3/10 at this time that felt like an aching pressure midsternal. Pt. feeling better at 0609. Feeling very anxious over possible procedures today. Reassured pt. and will continue to monitor.
[2018-03-27] MEDS: Aspirin E.C. 81 MG Tablet PO (06:14)
--- NOTE | 2018-03-27 06:29 | EKG12_ITS ---
Test Reason : CONVERTED Blood Pressure : / mmHG Vent. Rate : 064 BPM Atrial Rate : 064 BPM P-R Int : 186 ms QRS Dur : 106 ms QT Int : 442 ms P-R-T Axes : 047 080 061 degrees QTc Int : 455 ms Normal sinus rhythm Nonspecific ST abnormality Abnormal ECG When compared with ECG of 27-MAR-2018 05:06, MANUAL COMPARISON REQUIRED, DATA IS UNCONFIRMED Confirmed by ROSALBA ONEAL, GREG ([id number]), state editor SOUMYA BARTH ([id number]) on 03/30/2018 3:06:49 PM Referred By: Ana Bradford Confirmed By:GREG NVAARRETE MD
[2018-03-27 07:06] LABS: Bedside Glucose 178 mg/dL (70-110)
[2018-03-27] MEDS: Insulin Lispro 100 UNIT/ML INSULN.PEN SQ ×4 (07:45→22:15)
[2018-03-27] MEDS: Acetaminophen 325 MG Tablet 650 MG PO ×2 (07:45→16:20)
[2018-03-27] MEDS: Ferrous Sulfate 325 MG Tablet PO ×2 (07:46→16:17)
--- NOTE | 2018-03-27 07:54 | PCM.PN.CARD ---
Subjectve: Patient seen and evaluated. Had an episode of chest pain. Apparently converted early this morning. Objective: Vital Signs Temp Pulse Resp BP Pulse Ox 98.2 F 68 20 H 137/60 H 97 03/27/18 05:55 03/27/18 07:41 03/27/18 05:55 03/27/18 07:41 03/27/18 07:52 Oxygen Flow Rate (L/min) 2 Oxygen Delivery Method Nasal Cannula Weight: 231 lb 0.711 oz Body Mass Index (BMI) 40.9 Intake and Output for Last 24 Hours 03/25/18 03/26/18 03/27/18 23:59 23:59 23:59 Intake Total 650 / 650 50 / 50 Balance 650 / 650 50 / 50 General: Awake, Alert, Oriented x 3 HEENT: PERRL, EOMI, Sclera Non Icteric Neck: Supple, Good ROM, No Lymph Node Enlargement Lungs: Clear to auscultation Cardiovascular: Regular Rhythm, Normal S1, Normal S2, No Murmurs, No Rubs, No Gallops Vascular: No Carotid Bruits, Normal Femoral Pulses, Normal Radial Pulses, Normal Dorsalis Pedal Pulse, Normal Posterior Tibial Pulses Abdomen: Bowel Sounds Present, Soft, Non Tender, No HSM, No Organomegaly Extremities: No Cyanosis, No Clubbing, No edema Neurological: No Focal Motor or Sensory Deficit Psych/Mental Status: Appropriate, Anxious 03/26/18 15:10: WBC 6.4, RBC 4.95, Hgb 13.1, Hct 40.7, MCV 82.2, MCH 26.5 L, MCHC 32.2, RDW 16.1 H, RDW Differential 47.7 H, Plt Count 169, MPV 11.1, Immature Gran % (Auto) 0.300, Neut % (Auto) 64.6, Lymph % (Auto) 24.4, Clinch % (Auto) 5.7, Eos % (Auto) 3.9, Baso % (Auto) 1.1 H, Absolute Neuts (auto) 4.2, Total Counted Not Reportable 03/26/18 15:10: Sodium 137, Potassium 4.3, Chloride 103, Carbon Dioxide 24.0, Anion Gap 10, BUN 13, Creatinine 0.70, Est GFR (MDRD) Af Amer 108, Est GFR (MDRD) Non-Af 89, BUN/Creatinine Ratio 18.7, Glucose 257 H, Calcium 9.1, Troponin I < 0.015 03/26/18 15:10: PT 24.7 H, INR 2.2 03/26/18 15:10: B-Natriuretic Peptide 150.3 H 03/26/18 15:10: APTT 49.7 H 03/26/18 18:35: Troponin I 0.337 H 03/26/18 20:56: Troponin I 0.582 H 03/27/18 05:00: WBC 7.0, RBC 4.47, Hgb 12.0, Hct 37.1, MCV 83.0, MCH 26.8 L, MCHC 32.3, RDW 16.0 H, RDW Differential 47.7 H, Plt Count 172, MPV 11.5, Immature Gran % (Auto) 0.400, Neut % (Auto) 58.6, Lymph % (Auto) 27.7, Clinch % (Auto) 8.2, Eos % (Auto) 4.0, Baso % (Auto) 1.1 H, Absolute Neuts (auto) 4.1, Total Counted Not Reportable 03/27/18 05:00: Sodium 142, Potassium 4.0, Chloride 105, Carbon Dioxide 28.0, Anion Gap 9, BUN 14, Creatinine 0.72, Est GFR (MDRD) Af Amer 103, Est GFR (MDRD) Non-Af 85, BUN/Creatinine Ratio 19.4, Glucose 163 H, Calcium 8.6 03/27/18 05:00: PT 28.9 H, INR 2.7, APTT 56.2 H Rhythm: EKG: ECHO: Stress Test: Cardiac Cath: PCI: CT Surgery: Holter monitor: EPS: PPM: CXR: Chest CT Scan: Medical Necessity - Tobacco Use Smoking Status: Former smoker Tobacco Use: Cigarettes Assessment/Plan 1. Atrial fibrillation with rapid ventricular response rate Patient presents with recent onset atrial fibrillation flutter which responded very well to intravenous Cardizem. Would suggest continue anticoagulation with Coumadin Echocardiogram to assess her left ventricular function She did develop a post conversion pause which was rather prolonged more than 5 seconds. She is currently in sinus rhythm though. 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 2. Chest pain Patient has known coronary artery disease status post coronary bypass surgery and she appears to have had a left internal mammary artery to the left anterior descending artery, saphenous vein graft to the right coronary artery, and saphenous vein graft to the circumflex artery. Chest discomfort is somewhat concerning with mild rise in her troponins. Her EKG remains normal with no acute changes. If enzymes remain mildly abnormal may recommend a pharmacologic myocardial perfusion stress test and further treatment depending on the findings The patient is very hesitant to proceed with a cardiac catheterization Will increase isosorbide 120 mg a day 3. 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 Coronary artery disease Patient is status post coronary bypass surgery Cardiac enzymes suggest myocardial damage. However it is not clear whether this is from the tachycardia or progressive coronary disease 5. Hypertension Pressure control appears to be fair Would recommend the addition of the beta-yi. Will increase amlodipine to 10 mg a day 6. Hyperlipidemia Continue statin and increase Lipitor to 40 mg a day Thank you for allowing me to participate in the care of your patient. Please don't hesitate to call if any issues arise
--- NOTE | 2018-03-27 07:59 | PN.CARD_ITS ---
Subjectve: Patient seen and evaluated. Had an episode of chest pain. Apparently converted early this morning. Objective: Vital Signs Temp Pulse Resp BP Pulse Ox 98.2 F 68 20 H 137/60 H 97 03/27/18 05:55 03/27/18 07:41 03/27/18 05:55 03/27/18 07:41 03/27/18 07:52 Oxygen Flow Rate (L/min) 2 Oxygen Delivery Method Nasal Cannula Weight: 231 lb 0.711 oz Body Mass Index (BMI) 40.9 Intake and Output for Last 24 Hours 03/25/18 03/26/18 03/27/18 23:59 23:59 23:59 Intake Total 650 / 650 50 / 50 Balance 650 / 650 50 / 50 General: Awake, Alert, Oriented x 3 HEENT: PERRL, EOMI, Sclera Non Icteric Neck: Supple, Good ROM, No Lymph Node Enlargement Lungs: Clear to auscultation Cardiovascular: Regular Rhythm, Normal S1, Normal S2, No Murmurs, No Rubs, No Ga llops Vascular: No Carotid Bruits, Normal Femoral Pulses, Normal Radial Pulses, Normal Dorsalis Pedal Pulse, Normal Posterior Tibial Pulses Abdomen: Bowel Sounds Present, Soft, Non Tender, No HSM, No Organomegaly Extremities: No Cyanosis, No Clubbing, No edema Neurological: No Focal Motor or Sensory Deficit Psych/Mental Status: Appropriate, Anxious 03/26/18 15:10: WBC 6.4, RBC 4.95, Hgb 13.1, Hct 40.7, MCV 82.2, MCH 26.5 L, MCHC 32.2, RDW 16.1 H, RDW Differential 47.7 H, Plt Count 169, MPV 11.1, Immature Gran % (Auto) 0.300, Neut % (Auto) 64.6, Lymph % (Auto) 24.4, [place] % (Auto) 5.7, Eos % (Auto) 3.9, Baso % (Auto) 1.1 H, Absolute Neuts (auto) 4.2, Total Counted Not Reportable 03/26/18 15:10: Sodium 137, Potassium 4.3, Chloride 103, Carbon Dioxide 24.0, Anion Gap 10, BUN 13, Creatinine 0.70, Est GFR (MDRD) Af Amer 108, Est GFR (MDRD) Non-Af 89, BUN/Creatinine Ratio 18.7, Glucose 257 H, Calcium 9.1, Troponin I < 0.015 03/26/18 15:10: PT 24.7 H, INR 2.2 03/26/18 15:10: B-Natriuretic Peptide 150.3 H 03/26/18 15:10: APTT 49.7 H 03/26/18 18:35: Troponin I 0.337 H 03/26/18 20:56: Troponin I 0.582 H 03/27/18 05:00: WBC 7.0, RBC 4.47, Hgb 12.0, Hct 37.1, MCV 83.0, MCH 26.8 L, MCHC 32.3, RDW 16.0 H, RDW Differential 47.7 H, Plt Count 172, MPV 11.5, Immature Gran % (Auto) 0.400, Neut % (Auto) 58.6, Lymph % (Auto) 27.7, [place] % (Auto) 8.2, Eos % (Auto) 4.0, Baso % (Auto) 1.1 H, Absolute Neuts (auto) 4.1, Total Counted Not Reportable 03/27/18 05:00: Sodium 142, Potassium 4.0, Chloride 105, Carbon Dioxide 28.0, Anion Gap 9, BUN 14, Creatinine 0.72, Est GFR (MDRD) Af Amer 103, Est GFR (MDRD) Non-Af 85, BUN/Creatinine Ratio 19.4, Glucose 163 H, Calcium 8.6 03/27/18 05:00: PT 28.9 H, INR 2.7, APTT 56.2 H Rhythm: EKG: ECHO: Stress Test: Cardiac Cath: PCI: CT Surgery: Holter monitor: EPS: PPM: CXR: Chest CT Scan: Medical Necessity - Tobacco Use Smoking Status: Former smoker Tobacco Use: Cigarettes Assessment/Plan 1. Atrial fibrillation with rapid ventricular response rate * Patient presents with recent onset atrial fibrillation flutter which responded very well to intravenous Cardizem. * Would suggest continue anticoagulation with Coumadin * Echocardiogram to assess her left ventricular function * She did develop a post conversion pause which was rather prolonged more than 5 seconds. She is currently in sinus rhythm though. 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 * 2. Chest pain * Patient has known coronary artery disease status post coronary bypass surgery and she appears to have had a left internal mammary artery to the left anterior descending artery, saphenous vein graft to the right coronary artery, and saphenous vein graft to the circumflex artery. * Chest discomfort is somewhat concerning with mild rise in her troponins. Her EKG remains normal with no acute changes. * If enzymes remain mildly abnormal may recommend a pharmacologic myocardial perfusion stress test and further treatment depending on the findings * The patient is very hesitant to proceed with a cardiac catheterization * Will increase isosorbide 120 mg a day 3. Prosthetic aortic valve- * Patient has been on anticoagulation and appears to be functioning well * Obtain echocardiogram to assess the above * Obtain records to confirm an INR of 2.5-3.5 * 4. Coronary artery disease * Patient is status post coronary bypass surgery * Cardiac enzymes suggest myocardial damage. However it is not clear whether this is from the tachycardia or progressive coronary disease * 5. Hypertension * Pressure control appears to be fair * Would recommend the addition of the beta-yi. * Will increase amlodipine to 10 mg a day * 6. Hyperlipidemia * Continue statin and increase Lipitor to 40 mg a day * * Thank you for allowing me to participate in the care of your patient. Please don't hesitate to call if any issues arise
--- NOTE | 2018-03-27 08:00 | ECHOD_ITS ---
Reason For Study: ATRIAL FIB-FLUTTER Procedure This was a 2D Doppler, Color Flow transthoracic echocardiogram. Myocardial strain analysis was performed in this exam to aid in the assessment of cardiac function. Exam performed portable in patient room. Left Ventricle Normal LV size. Moderate concentric left ventricular hypertrophy. Left ventricular systolic function is normal. The estimated ejection fraction is 60 %. Stage 3 diastolic dysfunction. No regional wall motion abnormalities noted. Atria The left atrium is mildly enlarged. Normal right atrium. Mitral Valve There is mild to moderate mitral annular calcification. Mild focal mitral valve calcification of the anterior leaflet. Mild (1+) eccentric mitral valve insufficiency. Tricuspid Valve Normal tricuspid valve. Mild (1+) tricuspid valve insufficiency. Pulmonary artery systolic pressure is 28 mmHg. Aortic Valve Peak aortic valve gradient 69 mmHg. Mean aortic valve gradient 37 mmHg. Moderate aortic stenosis. Calculated aortic valve area (continuity equation) is 0.9 cm2. Stable appearing mechanical aortic valve apparatus. Pulmonic Valve Normal pulmonic valve. Mild-Moderate (1-2+) pulmonic valve insufficiency. Great Vessels Normal aortic root. The pulmonary artery is normal size. Normal inferior vena cava. Pericardium/Pleural No pericardial effusion. MMode/2D Measurements & Calculations LVIDd: 4.8 cm IVSd: 1.3 cm LVOT diam: 2.0 cm LVIDs: 2.9 cm LVPWd: 1.3 cm LVOT area: 3.1 cm2 RVDd: 4.1 cm FS: 39.6 % Ao root diam: 3.4 cm LAV(MOD-bp): 73.5 ml LVAd ap4: 35.0 cm2 LAV(MOD-bp) Indexed: 35.7 ml/m2 EDV(MOD-sp4): 125.4 ml LAV(MOD-sp2): 81.4 ml EDV(sp4-el): 130.2 ml LAV(MOD-sp4): 64.5 ml LVAs ap4: 20.8 cm2 ESV(MOD-sp4): 54.8 ml ESV(sp4-el): 54.1 ml EF(MOD-sp4): 56.3 % EF(sp4-el): 58.4 % SV(MOD-sp4): 70.6 ml SV(sp4-el): 76.1 ml LA A4 area: 21.5 cm2 LA dimension(2D): 4.1 cm RA A4 area: 17.2 cm2 Time Measurements MV dec time: 0.29 sec Doppler Measurements & Calculations MV E max petr: 146.1 cm/sec Lat Peak E' Petr: 6.5 cm/sec Med Peak E' Petr: 5.6 cm/sec MV A max petr: 47.6 cm/sec E/E' lat: 22.6 E/E' med: 26.0 MV E/A: 3.1 MV V2 max: 147.3 cm/sec Ao V2 max: 413.7 cm/sec LV V1 max: 118.1 cm/sec MV max P.7 mmHg Ao max P.8 mmHg LV V1 max P.6 mmHg MV V2 mean: 83.9 cm/sec Ao V2 mean: 281.3 cm/sec LV V1 mean P.6 mmHg MV mean P.4 mmHg Ao mean P.4 mmHg LV V1 mean: 91.3 cm/sec MV V2 VTI: 47.3 cm Ao V2 VTI: 85.9 cm LV V1 VTI: 30.6 cm MVA(VTI): 2.0 cm2 EDEN(I,D): 1.1 cm2 EDEN(V,D): 0.90 cm2 SV(LVOT): 96.4 ml PA V2 max: 116.0 cm/sec TR max petr: 240.8 cm/sec TR max P.3 mmHg MV P1/2t-pr_phl: 119.9 msec Interpretation Summary Normal LV size. Moderate concentric left ventricular hypertrophy. Left ventricular systolic function is normal. The estimated ejection fraction is 60 %. Stage 3 diastolic dysfunction. Mild (1+) eccentric mitral valve insufficiency. Moderate aortic stenosis. Mean aortic valve gradient 37 mmHg. According to echo from [facility] the aortic valve gradients are similar Ordering Physician: Ana Bradford Referring Physician: KERI SUMMERS Performed By: Yudith Keane RDCS
[2018-03-27] MEDS: Loratadine 10 MG Tablet PO (09:24)
[2018-03-27] MEDS: Tolterodine Tartrate 2 MG CAP.SA PO (09:24)
[2018-03-27] MEDS: Furosemide 20 MG Tablet PO (09:25)
[2018-03-27] MEDS: Atenolol 50 MG Tablet PO (09:25)
[2018-03-27] MEDS: amLODIPine 10 MG Tablet PO (09:25)
[2018-03-27] MEDS: Famotidine 20 MG Tablet PO ×2 (09:25→22:14)
[2018-03-27] MEDS: Pantoprazole Sodium 40 MG Tablet PO ×2 (09:25→22:14)
[2018-03-27 11:20] LABS: Bedside Glucose 240 mg/dL (70-110)
--- NOTE | 2018-03-27 11:58 | CASEMGMT ---
STEFFI PARNELL assessment: Face to Face with patient for initial transition planning/care coordination assessment. STEFFI PARNELL introduced self and role at [facility], pt voices understanding and consents to assessment at this time. Pt is sitting up in bed in no distress at this time. Pt is A/Ox4 at this time and answers all questions appropriately at this time. Care providers, pharmacy, and demographics verified at this time. PCP: Vera Specialists: Shoaib, cardio; onc at [facility] Preferred Pharmacy: [facility] Insurance: [employer] Prescription Benefit: [facility] Living Will/HPOA: Pt states does not have LW/HPOA and declines info at this time as she states that they are already meeting a diesel instructor to set up everything at once. LNOK: Luis Pablo, son; Bear Almanzar, daughter Living Arrangements: Pt states lives with great-granddaughter and sometimes daughter on main level of 2 story home with a couple steps into home and states no concerns at home at this time. Transportation: Pt states drives self and states no transportation concerns at this time. DME/HHC: Pt states has canes/walker at home but does not use. Pt also states has a nebulizer that she does use. Pt states no need for any further DME at this time. Pt states no hx of HHC or SNF in the past. Pt states no concerns with going home at time of discharge. Pt states is retired. Pt states does not smoke or drink ETOH. Pt states no further concerns/needs at this time. CM to follow for any further discharge planning/needs. Advised pt to ask for CM if any further questions/concerns/needs arise, voices understanding. Plan[place] STEFFI PARNELL
--- NOTE | 2018-03-27 13:33 | PCM.PROGNOTE ---
<Efrain Blanco - Last Filed: 03/27/18 13:33> Subjective: Palpitations and CP resolved. No SOB. No LE edema. Rate converted this AM. She had a pause around the time she converted. - Physical Exam General: Alert, Oriented x3, Cooperative HEENT: Atraumatic, PERRLA, EOMI, Normocephalic Neck: Supple, No JVD, Negative Carotid Bruits Lungs: Clear to auscultation, Normal air movement Cardiovascular: Regular rate, No murmurs Abdomen: Bowel Sounds Present, Soft, Non Tender Extremities: No edema, Capillary Refill Less than 3 Seconds Skin: No rashes, No breakdown Musculoskeletal: No Tenderness to Palpation of Joints or Extremities Neurological: Cranial nerves II-XII grossly intact Psych/Mental Status: Normal Affect, Appropriate, Alert and oriented to time, place, person, mood and affect Vital Signs Temp Pulse Resp BP Pulse Ox 98.3 F 65 16 136/72 H 94 03/27/18 09:30 03/27/18 11:00 03/27/18 09:30 03/27/18 09:30 03/27/18 09:30 Oxygen Flow Rate (L/min) 2 Oxygen Delivery Method Room Air Weight: 231 lb 0.711 oz Body Mass Index (BMI) 40.9 Intake and Output for Last 24 Hours 03/25/18 03/26/18 03/27/18 23:59 23:59 23:59 Intake Total 650 / 650 450 / 450 Balance 650 / 650 450 / 450 Laboratory Tests Past 24 Hrs 03/26/18 03/26/18 03/26/18 15:10 15:10 15:10 WBC 6.4 RBC 4.95 Hgb 13.1 Hct 40.7 MCV 82.2 MCH 26.5 L MCHC 32.2 RDW 16.1 H RDW Differential 47.7 H Plt Count 169 MPV 11.1 Immature Gran % (Auto) 0.300 Neut % (Auto) 64.6 Lymph % (Auto) 24.4 [place] % (Auto) 5.7 Eos % (Auto) 3.9 Baso % (Auto) 1.1 H Absolute Neuts (auto) 4.2 Absolute Lymphs (auto) 1.57 Total Counted Not Reportable PT 24.7 H INR 2.2 APTT Sodium 137 Potassium 4.3 Chloride 103 Carbon Dioxide 24.0 Anion Gap 10 BUN 13 Creatinine 0.70 Estim Creat Clear Calc 44.54 Est GFR (MDRD) Af Amer 108 Est GFR (MDRD) Non-Af 89 BUN/Creatinine Ratio 18.7 Glucose 257 H Calcium 9.1 Troponin I < 0.015 B-Natriuretic Peptide TSH 03/26/18 03/26/18 03/26/18 15:10 15:10 15:10 WBC RBC Hgb Hct MCV MCH MCHC RDW RDW Differential Plt Count MPV Immature Gran % (Auto) Neut % (Auto) Lymph % (Auto) [place] % (Auto) Eos % (Auto) Baso % (Auto) Absolute Neuts (auto) Absolute Lymphs (auto) Total Counted PT INR APTT 49.7 H Sodium Potassium Chloride Carbon Dioxide Anion Gap BUN Creatinine Estim Creat Clear Calc Est GFR (MDRD) Af Amer Est GFR (MDRD) Non-Af BUN/Creatinine Ratio Glucose Calcium Troponin I B-Natriuretic Peptide 150.3 H TSH 0.94 03/26/18 03/26/18 03/27/18 18:35 20:56 05:00 WBC 7.0 RBC 4.47 Hgb 12.0 Hct 37.1 MCV 83.0 MCH 26.8 L MCHC 32.3 RDW 16.0 H RDW Differential 47.7 H Plt Count 172 MPV 11.5 Immature Gran % (Auto) 0.400 Neut % (Auto) 58.6 Lymph % (Auto) 27.7 [place] % (Auto) 8.2 Eos % (Auto) 4.0 Baso % (Auto) 1.1 H Absolute Neuts (auto) 4.1 Absolute Lymphs (auto) 1.93 Total Counted Not Reportable PT INR APTT Sodium Potassium Chloride Carbon Dioxide Anion Gap BUN Creatinine Estim Creat Clear Calc Est GFR (MDRD) Af Amer Est GFR (MDRD) Non-Af BUN/Creatinine Ratio Glucose Calcium Troponin I 0.337 H 0.582 H B-Natriuretic Peptide TSH 03/27/18 03/27/18 05:00 05:00 WBC RBC Hgb Hct MCV MCH MCHC RDW RDW Differential Plt Count MPV Immature Gran % (Auto) Neut % (Auto) Lymph % (Auto) [place] % (Auto) Eos % (Auto) Baso % (Auto) Absolute Neuts (auto) Absolute Lymphs (auto) Total Counted PT 28.9 H INR 2.7 APTT 56.2 H Sodium 142 Potassium 4.0 Chloride 105 Carbon Dioxide 28.0 Anion Gap 9 BUN 14 Creatinine 0.72 Estim Creat Clear Calc 44.54 Est GFR (MDRD) Af Amer 103 Est GFR (MDRD) Non-Af 85 BUN/Creatinine Ratio 19.4 Glucose 163 H Calcium 8.6 Troponin I B-Natriuretic Peptide TSH POC Glucose 03/27/18 03/27/18 03/26/18 11:04 06:32 21:03 POC Glucose 240 H 178 H 202 H Medical Necessity - Tobacco Use Smoking Status: Former smoker Tobacco Use: Cigarettes Assessment/Plan 1. Afib with RVR - converted. Cardiology following. Atenolol increased. Continue warfarin. therapeutic. TSH normal. 2. Chest pain with rising troponin - stress test in AM. Echo pending. Prior 3xCABG. On Asa, Atenolol, statin, imdur (increased), losartan. CXR neg. 3. DMT2 - orals held. SSI. 4. HTN - mildly elevated. 5. Prosthetic, titanium, aortic valve - INR goal 2.5-3.5 6. ? Hx COPD - albuterol prn DVT ppx: warfarin DC planning: pending stress test in AM. This patient was seen by Efrain Blanco PA-C under the supervision of Dr. Garcia. <Alex Lainez - Last Filed: 03/27/18 14:54> - Physical Exam Vital Signs Temp Pulse Resp BP Pulse Ox 98.3 F 65 16 136/72 H 94 03/27/18 09:30 03/27/18 11:00 03/27/18 09:30 03/27/18 09:30 03/27/18 09:30 Oxygen Flow Rate (L/min) 2 Oxygen Delivery Method Room Air Weight: 104.8 kg Body Mass Index (BMI) 40.9 Intake and Output for Last 24 Hours 03/25/18 03/26/18 03/27/18 23:59 23:59 23:59 Intake Total 650 / 650 450 / 450 Balance 650 / 650 450 / 450 Laboratory Tests Past 24 Hrs 03/26/18 03/26/18 03/26/18 15:10 15:10 15:10 WBC 6.4 RBC 4.95 Hgb 13.1 Hct 40.7 MCV 82.2 MCH 26.5 L MCHC 32.2 RDW 16.1 H RDW Differential 47.7 H Plt Count 169 MPV 11.1 Immature Gran % (Auto) 0.300 Neut % (Auto) 64.6 Lymph % (Auto) 24.4 [place] % (Auto) 5.7 Eos % (Auto) 3.9 Baso % (Auto) 1.1 H Absolute Neuts (auto) 4.2 Absolute Lymphs (auto) 1.57 Total Counted Not Reportable PT 24.7 H INR 2.2 APTT Sodium 137 Potassium 4.3 Chloride 103 Carbon Dioxide 24.0 Anion Gap 10 BUN 13 Creatinine 0.70 Estim Creat Clear Calc 44.54 Est GFR (MDRD) Af Amer 108 Est GFR (MDRD) Non-Af 89 BUN/Creatinine Ratio 18.7 Glucose 257 H Calcium 9.1 Troponin I < 0.015 B-Natriuretic Peptide TSH 03/26/18 03/26/18 03/26/18 15:10 15:10 15:10 WBC RBC Hgb Hct MCV MCH MCHC RDW RDW Differential Plt Count MPV Immature Gran % (Auto) Neut % (Auto) Lymph % (Auto) [place] % (Auto) Eos % (Auto) Baso % (Auto) Absolute Neuts (auto) Absolute Lymphs (auto) Total Counted PT INR APTT 49.7 H Sodium Potassium Chloride Carbon Dioxide Anion Gap BUN Creatinine Estim Creat Clear Calc Est GFR (MDRD) Af Amer Est GFR (MDRD) Non-Af BUN/Creatinine Ratio Glucose Calcium Troponin I B-Natriuretic Peptide 150.3 H TSH 0.94 03/26/18 03/26/18 03/27/18 18:35 20:56 05:00 WBC 7.0 RBC 4.47 Hgb 12.0 Hct 37.1 MCV 83.0 MCH 26.8 L MCHC 32.3 RDW 16.0 H RDW Differential 47.7 H Plt Count 172 MPV 11.5 Immature Gran % (Auto) 0.400 Neut % (Auto) 58.6 Lymph % (Auto) 27.7 [place] % (Auto) 8.2 Eos % (Auto) 4.0 Baso % (Auto) 1.1 H Absolute Neuts (auto) 4.1 Absolute Lymphs (auto) 1.93 Total Counted Not Reportable PT INR APTT Sodium Potassium Chloride Carbon Dioxide Anion Gap BUN Creatinine Estim Creat Clear Calc Est GFR (MDRD) Af Amer Est GFR (MDRD) Non-Af BUN/Creatinine Ratio Glucose Calcium Troponin I 0.337 H 0.582 H B-Natriuretic Peptide TSH 03/27/18 03/27/18 05:00 05:00 WBC RBC Hgb Hct MCV MCH MCHC RDW RDW Differential Plt Count MPV Immature Gran % (Auto) Neut % (Auto) Lymph % (Auto) [place] % (Auto) Eos % (Auto) Baso % (Auto) Absolute Neuts (auto) Absolute Lymphs (auto) Total Counted PT 28.9 H INR 2.7 APTT 56.2 H Sodium 142 Potassium 4.0 Chloride 105 Carbon Dioxide 28.0 Anion Gap 9 BUN 14 Creatinine 0.72 Estim Creat Clear Calc 44.54 Est GFR (MDRD) Af Amer 103 Est GFR (MDRD) Non-Af 85 BUN/Creatinine Ratio 19.4 Glucose 163 H Calcium 8.6 Troponin I B-Natriuretic Peptide TSH POC Glucose 03/27/18 03/27/18 03/26/18 11:04 06:32 21:03 POC Glucose 240 H 178 H 202 H Assessment/Plan This patient was seen in conjunction with Efrain Blanco PA-C . I have independently interviewed and examined the patient and reviewed pertinent historical, laboratory, and other data. Please refer to Efrain Blanco PA-C note for details of this patient's presentation, findings, and recommendations. I have reviewed Efrain Blanco PA-C note and concur with documented findings. In brief, patient is a 67-year-old lady with multiple comorbidities including CAD status post CABG, prosthetic(mechanical) valve on systemic anticoagulation with Coumadin, hypertension who presented with palpitations. Patient was found to be in A. fib with RVR started on Cardizem drip admitted to a monitored bed for further management Patient converted on the morning of 03/27/2018 followed by a 5-second pause Physical Examination: GENERAL: cooperative HEENT: Atraumatic; EYES; Anicteric, Normal Conjunctiva NECK; supple, normal thyroid, RESPIRATORY: Diminished to auscultation bilaterally, CARDIOVASCULAR: Regular S1 S2,s GI: soft, non-tender, normoactive bowel sounds, : No Renal angle tenderness; EXTREMITIES: No edema, no clubbing, no cyanosis. NEURO: Awake; no lateralizing signs. SKIN: No Rash PSYCH; Normal affect Assessment: 1. A. fib with RVR converted on Cardizem drip 2. Chest pain nuclear stress test ordered for 03/28/2018 3. Prosthetic titanium aortic valve systemic anticoagulation with a therapeutic INR 4. Diabetes mellitus type 2 5. Essential hypertension 6. COPD stable Recommendations: 1. I have discussed the results of my overview and impressions with the patient 2. Options for management were reviewed Active Medications Acetaminophen (Tylenol) 650 mg PO Q6H PRN PRN PRN Reason: PAIN Last Admin: 03/27/18 07:45 Dose: 650 mg Amlodipine Besylate (Norvasc) 10 mg PO DAILY [facility] Last Admin: 03/27/18 09:25 Dose: 10 mg Aspirin (Ecotrin) 81 mg PO DAILY@0800 [facility] Last Admin: 03/27/18 06:14 Dose: 81 mg Atenolol (Tenormin (Beta Arie)) 50 mg PO DAILY [facility] Last Admin: 03/27/18 09:25 Dose: 50 mg Atorvastatin Calcium (Lipitor) 20 mg PO QHS [facility] Last Admin: 03/26/18 21:00 Dose: 20 mg Dextrose (D50w Syringe) 0 gm IV X1 PRN; Protocol PRN Reason: Hypoglycemia Famotidine (Pepcid) 20 mg PO BID [facility] Last Admin: 03/27/18 09:25 Dose: 20 mg Ferrous Sulfate ([facility]ous Sulfate) [facility] Last Admin: 03/27/18 07:46 Dose: 325 mg Furosemide (Lasix) 20 mg PO DAILY [facility] Last Admin: 03/27/18 09:25 Dose: 20 mg Glucagon () 1 mg IM .X1 PRN PRN Reason: Hypoglycemia Heparin Sodium (Porcine) (Heparin Na) 0 unit IV UD PRN; Protocol Insulin Human Lispro (Humalog Kwikpen (Bkc)) 0 unit SQ ACHS [facility]; Protocol Last Admin: 03/27/18 11:11 Dose: 4 units Isosorbide Mononitrate (Imdur) 120 mg PO DAILY [facility] Last Admin: 03/27/18 09:24 Dose: 120 mg Loratadine (Claritin) 10 mg PO DAILY [facility] Last Admin: 03/27/18 09:24 Dose: 10 mg Losartan Potassium (Cozaar) 100 mg PO QHS [facility] Last Admin: 03/26/18 21:00 Dose: 100 mg Magnesium Hydroxide (Milk Of Magnesia) 30 ml PO DAILY PRN PRN PRN Reason: Constipation Meclizine HCl (Antivert) 25 mg PO TID PRN PRN PRN Reason: DIZZINESS Nitroglycerin (Nitrostat) 0.4 mg SUBLINGUAL Q5M PRN PRN Reason: Chest Pain Last Admin: 03/27/18 07:41 Dose: 0.4 mg Pantoprazole Sodium (Protonix) 40 mg PO BID [facility] Last Admin: 03/27/18 09:25 Dose: 40 mg Polyethylene Glycol (Miralax) 17 gm PO DAILY PRN PRN Reason: Constipation Sodium Chloride () 5 - 15 ml IV UD PRN PRN Reason: SALINE FLUSH Tizanidine HCl (Zanaflex) 4 mg PO QHS PRN PRN Reason: SPASMS Last Admin: 03/26/18 21:12 Dose: 4 mg Tolterodine Tartrate (Detrol La) 2 mg PO DAILY [facility] Last Admin: 03/27/18 09:24 Dose: 2 mg Warfarin Sodium (Coumadin (Pbkc)) 6 mg PO SuMoWeFrSa@1700 [facility] Warfarin Sodium (Coumadin (Pbkc)) 3 mg PO TuTh@1700 [facility] Clinical Impression(s) from Imaging Studies Chest X-Ray 03/26/18 15:10 IMPRESSION: No acute abnormality is seen. Electronically Signed: Krishan Booker MD at 15:38 EST Tel [phone], Service support , Code Visit Inpatient E&M: [id number] [facility]
--- NOTE | 2018-03-27 13:41 | PN_ITS ---
<Efrain Blanco - Last Filed: 03/27/18 13:33> Subjective: Palpitations and CP resolved. No SOB. No LE edema. Rate converted this AM. She had a pause around the time she converted. - Physical Exam General: Alert, Oriented x3, Cooperative HEENT: Atraumatic, PERRLA, EOMI, Normocephalic Neck: Supple, No JVD, Negative Carotid Bruits Lungs: Clear to auscultation, Normal air movement Cardiovascular: Regular rate, No murmurs Abdomen: Bowel Sounds Present, Soft, Non Tender Extremities: No edema, Capillary Refill Less than 3 Seconds Skin: No rashes, No breakdown Musculoskeletal: No Tenderness to Palpation of Joints or Extremities Neurological: Cranial nerves II-XII grossly intact Psych/Mental Status: Normal Affect, Appropriate, Alert and oriented to time, place, person, mood and affect Vital Signs Temp Pulse Resp BP Pulse Ox 98.3 F 65 16 136/72 H 94 03/27/18 09:30 03/27/18 11:00 03/27/18 09:30 03/27/18 09:30 03/27/18 09:30 Oxygen Flow Rate (L/min) 2 Oxygen Delivery Method Room Air Weight: 231 lb 0.711 oz Body Mass Index (BMI) 40.9 Intake and Output for Last 24 Hours 03/25/18 03/26/18 03/27/18 23:59 23:59 23:59 Intake Total 650 / 650 450 / 450 Balance 650 / 650 450 / 450 Laboratory Tests Past 24 Hrs 03/26/18 03/26/18 03/26/18 15:10 15:10 15:10 WBC 6.4 RBC 4.95 Hgb 13.1 Hct 40.7 MCV 82.2 MCH 26.5 L MCHC 32.2 RDW 16.1 H RDW Differential 47.7 H Plt Count 169 MPV 11.1 Immature Gran % (Auto) 0.300 Neut % (Auto) 64.6 Lymph % (Auto) 24.4 [place] % (Auto) 5.7 Eos % (Auto) 3.9 Baso % (Auto) 1.1 H Absolute Neuts (auto) 4.2 Absolute Lymphs (auto) 1.57 Total Counted Not Reportable PT 24.7 H INR 2.2 APTT Sodium 137 Potassium 4.3 Chloride 103 Carbon Dioxide 24.0 Anion Gap 10 BUN 13 Creatinine 0.70 Estim Creat Clear Calc 44.54 Est GFR (MDRD) Af Amer 108 Est GFR (MDRD) Non-Af 89 BUN/Creatinine Ratio 18.7 Glucose 257 H Calcium 9.1 Troponin I < 0.015 B-Natriuretic Peptide TSH 03/26/18 03/26/18 03/26/18 15:10 15:10 15:10 WBC RBC Hgb Hct MCV MCH MCHC RDW RDW Differential Plt Count MPV Immature Gran % (Auto) Neut % (Auto) Lymph % (Auto) [place] % (Auto) Eos % (Auto) Baso % (Auto) Absolute Neuts (auto) Absolute Lymphs (auto) Total Counted PT INR APTT 49.7 H Sodium Potassium Chloride Carbon Dioxide Anion Gap BUN Creatinine Estim Creat Clear Calc Est GFR (MDRD) Af Amer Est GFR (MDRD) Non-Af BUN/Creatinine Ratio Glucose Calcium Troponin I B-Natriuretic Peptide 150.3 H TSH 0.94 03/26/18 03/26/18 03/27/18 18:35 20:56 05:00 WBC 7.0 RBC 4.47 Hgb 12.0 Hct 37.1 MCV 83.0 MCH 26.8 L MCHC 32.3 RDW 16.0 H RDW Differential 47.7 H Plt Count 172 MPV 11.5 Immature Gran % (Auto) 0.400 Neut % (Auto) 58.6 Lymph % (Auto) 27.7 [place] % (Auto) 8.2 Eos % (Auto) 4.0 Baso % (Auto) 1.1 H Absolute Neuts (auto) 4.1 Absolute Lymphs (auto) 1.93 Total Counted Not Reportable PT INR APTT Sodium Potassium Chloride Carbon Dioxide Anion Gap BUN Creatinine Estim Creat Clear Calc Est GFR (MDRD) Af Amer Est GFR (MDRD) Non-Af BUN/Creatinine Ratio Glucose Calcium Troponin I 0.337 H 0.582 H B-Natriuretic Peptide TSH 03/27/18 03/27/18 05:00 05:00 WBC RBC Hgb Hct MCV MCH MCHC RDW RDW Differential Plt Count MPV Immature Gran % (Auto) Neut % (Auto) Lymph % (Auto) [place] % (Auto) Eos % (Auto) Baso % (Auto) Absolute Neuts (auto) Absolute Lymphs (auto) Total Counted PT 28.9 H INR 2.7 APTT 56.2 H Sodium 142 Potassium 4.0 Chloride 105 Carbon Dioxide 28.0 Anion Gap 9 BUN 14 Creatinine 0.72 Estim Creat Clear Calc 44.54 Est GFR (MDRD) Af Amer 103 Est GFR (MDRD) Non-Af 85 BUN/Creatinine Ratio 19.4 Glucose 163 H Calcium 8.6 Troponin I B-Natriuretic Peptide TSH POC Glucose 03/27/18 03/27/18 03/26/18 11:04 06:32 21:03 POC Glucose 240 H 178 H 202 H Medical Necessity - Tobacco Use Smoking Status: Former smoker Tobacco Use: Cigarettes Assessment/Plan 1. Afib with RVR - converted. Cardiology following. Atenolol increased. Continue warfarin. therapeutic. TSH normal. 2. Chest pain with rising troponin - stress test in AM. Echo pending. Prior 3xCABG. On Asa, Atenolol, statin, imdur (increased), losartan. CXR neg. 3. DMT2 - orals held. SSI. 4. HTN - mildly elevated. 5. Prosthetic, titanium, aortic valve - INR goal 2.5-3.5 6. ? Hx COPD - albuterol prn DVT ppx: warfarin DC planning: pending stress test in AM. This patient was seen by Efrain Blanco PA-C under the supervision of Dr. Garcia. <Alex Lainez - Last Filed: 03/27/18 14:54> - Physical Exam Vital Signs Temp Pulse Resp BP Pulse Ox 98.3 F 65 16 136/72 H 94 03/27/18 09:30 03/27/18 11:00 03/27/18 09:30 03/27/18 09:30 03/27/18 09:30 Oxygen Flow Rate (L/min) 2 Oxygen Delivery Method Room Air Weight: 104.8 kg Body Mass Index (BMI) 40.9 Intake and Output for Last 24 Hours 03/25/18 03/26/18 03/27/18 23:59 23:59 23:59 Intake Total 650 / 650 450 / 450 Balance 650 / 650 450 / 450 Laboratory Tests Past 24 Hrs 03/26/18 03/26/18 03/26/18 15:10 15:10 15:10 WBC 6.4 RBC 4.95 Hgb 13.1 Hct 40.7 MCV 82.2 MCH 26.5 L MCHC 32.2 RDW 16.1 H RDW Differential 47.7 H Plt Count 169 MPV 11.1 Immature Gran % (Auto) 0.300 Neut % (Auto) 64.6 Lymph % (Auto) 24.4 [place] % (Auto) 5.7 Eos % (Auto) 3.9 Baso % (Auto) 1.1 H Absolute Neuts (auto) 4.2 Absolute Lymphs (auto) 1.57 Total Counted Not Reportable PT 24.7 H INR 2.2 APTT Sodium 137 Potassium 4.3 Chloride 103 Carbon Dioxide 24.0 Anion Gap 10 BUN 13 Creatinine 0.70 Estim Creat Clear Calc 44.54 Est GFR (MDRD) Af Amer 108 Est GFR (MDRD) Non-Af 89 BUN/Creatinine Ratio 18.7 Glucose 257 H Calcium 9.1 Troponin I < 0.015 B-Natriuretic Peptide TSH 03/26/18 03/26/18 03/26/18 15:10 15:10 15:10 WBC RBC Hgb Hct MCV MCH MCHC RDW RDW Differential Plt Count MPV Immature Gran % (Auto) Neut % (Auto) Lymph % (Auto) [place] % (Auto) Eos % (Auto) Baso % (Auto) Absolute Neuts (auto) Absolute Lymphs (auto) Total Counted PT INR APTT 49.7 H Sodium Potassium Chloride Carbon Dioxide Anion Gap BUN Creatinine Estim Creat Clear Calc Est GFR (MDRD) Af Amer Est GFR (MDRD) Non-Af BUN/Creatinine Ratio Glucose Calcium Troponin I B-Natriuretic Peptide 150.3 H TSH 0.94 03/26/18 03/26/18 03/27/18 18:35 20:56 05:00 WBC 7.0 RBC 4.47 Hgb 12.0 Hct 37.1 MCV 83.0 MCH 26.8 L MCHC 32.3 RDW 16.0 H RDW Differential 47.7 H Plt Count 172 MPV 11.5 Immature Gran % (Auto) 0.400 Neut % (Auto) 58.6 Lymph % (Auto) 27.7 [place] % (Auto) 8.2 Eos % (Auto) 4.0 Baso % (Auto) 1.1 H Absolute Neuts (auto) 4.1 Absolute Lymphs (auto) 1.93 Total Counted Not Reportable PT INR APTT Sodium Potassium Chloride Carbon Dioxide Anion Gap BUN Creatinine Estim Creat Clear Calc Est GFR (MDRD) Af Amer Est GFR (MDRD) Non-Af BUN/Creatinine Ratio Glucose Calcium Troponin I 0.337 H 0.582 H B-Natriuretic Peptide TSH 03/27/18 03/27/18 05:00 05:00 WBC RBC Hgb Hct MCV MCH MCHC RDW RDW Differential Plt Count MPV Immature Gran % (Auto) Neut % (Auto) Lymph % (Auto) [place] % (Auto) Eos % (Auto) Baso % (Auto) Absolute Neuts (auto) Absolute Lymphs (auto) Total Counted PT 28.9 H INR 2.7 APTT 56.2 H Sodium 142 Potassium 4.0 Chloride 105 Carbon Dioxide 28.0 Anion Gap 9 BUN 14 Creatinine 0.72 Estim Creat Clear Calc 44.54 Est GFR (MDRD) Af Amer 103 Est GFR (MDRD) Non-Af 85 BUN/Creatinine Ratio 19.4 Glucose 163 H Calcium 8.6 Troponin I B-Natriuretic Peptide TSH POC Glucose 03/27/18 03/27/18 03/26/18 11:04 06:32 21:03 POC Glucose 240 H 178 H 202 H Assessment/Plan This patient was seen in conjunction with Efrain Blanco PA-C . I have independently interviewed and examined the patient and reviewed pertinent historical, laboratory, and other data. Please refer to Efrain Blanco PA-C note for details of this patient's presentation, findings, and recommendations. I have reviewed Efrain Blanco PA-C note and concur with documented findings. In brief, patient is a 67-year-old lady with multiple comorbidities including CAD status post CABG, prosthetic(mechanical) valve on systemic anticoagulation with Coumadin, hypertension who presented with palpitations. Patient was found to be in A. fib with RVR started on Cardizem drip admitted to a monitored bed for further management Patient converted on the morning of 03/27/2018 followed by a 5-second pause Physical Examination: GENERAL: cooperative HEENT: Atraumatic; EYES; Anicteric, Normal Conjunctiva NECK; supple, normal thyroid, RESPIRATORY: Diminished to auscultation bilaterally, CARDIOVASCULAR: Regular S1 S2,s GI: soft, non-tender, normoactive bowel sounds, : No Renal angle tenderness; EXTREMITIES: No edema, no clubbing, no cyanosis. NEURO: Awake; no lateralizing signs. SKIN: No Rash PSYCH; Normal affect Assessment: 1. A. fib with RVR converted on Cardizem drip 2. Chest pain nuclear stress test ordered for 03/28/2018 3. Prosthetic titanium aortic valve systemic anticoagulation with a therapeutic INR 4. Diabetes mellitus type 2 5. Essential hypertension 6. COPD stable Recommendations: 1. I have discussed the results of my overview and impressions with the patient 2. Options for management were reviewed Active Medications Acetaminophen (Tylenol) 650 mg PO Q6H PRN PRN PRN Reason: PAIN Last Admin: 03/27/18 07:45 Dose: 650 mg Amlodipine Besylate (Norvasc) 10 mg PO DAILY [facility] Last Admin: 03/27/18 09:25 Dose: 10 mg Aspirin (Ecotrin) 81 mg PO DAILY@0800 [facility] Last Admin: 03/27/18 06:14 Dose: 81 mg Atenolol (Tenormin (Beta Arie)) 50 mg PO DAILY [facility] Last Admin: 03/27/18 09:25 Dose: 50 mg Atorvastatin Calcium (Lipitor) 20 mg PO QHS [facility] Last Admin: 03/26/18 21:00 Dose: 20 mg Dextrose (D50w Syringe) 0 gm IV X1 PRN; Protocol PRN Reason: Hypoglycemia Famotidine (Pepcid) 20 mg PO BID [facility] Last Admin: 03/27/18 09:25 Dose: 20 mg [facility] Last Admin: 03/27/18 07:46 Dose: 325 mg Furosemide (Lasix) 20 mg PO DAILY [facility] Last Admin: 03/27/18 09:25 Dose: 20 mg Glucagon () 1 mg IM .X1 PRN PRN Reason: Hypoglycemia Heparin Sodium (Porcine) (Heparin Na) 0 unit IV UD PRN; Protocol Insulin Human Lispro (Humalog Kwikpen (Bkc)) 0 unit SQ ACHS [facility]; Protocol Last Admin: 03/27/18 11:11 Dose: 4 units Isosorbide Mononitrate (Imdur) 120 mg PO DAILY [facility] Last Admin: 03/27/18 09:24 Dose: 120 mg Loratadine (Claritin) 10 mg PO DAILY [facility] Last Admin: 03/27/18 09:24 Dose: 10 mg Losartan Potassium (Cozaar) 100 mg PO QHS [facility] Last Admin: 03/26/18 21:00 Dose: 100 mg Magnesium Hydroxide (Milk Of Magnesia) 30 ml PO DAILY PRN PRN PRN Reason: Constipation Meclizine HCl (Antivert) 25 mg PO TID PRN PRN PRN Reason: DIZZINESS Nitroglycerin (Nitrostat) 0.4 mg SUBLINGUAL Q5M PRN PRN Reason: Chest Pain Last Admin: 03/27/18 07:41 Dose: 0.4 mg Pantoprazole Sodium (Protonix) 40 mg PO BID [facility] Last Admin: 03/27/18 09:25 Dose: 40 mg Polyethylene Glycol (Miralax) 17 gm PO DAILY PRN PRN Reason: Constipation Sodium Chloride () 5 - 15 ml IV UD PRN PRN Reason: SALINE FLUSH Tizanidine HCl (Zanaflex) 4 mg PO QHS PRN PRN Reason: SPASMS Last Admin: 03/26/18 21:12 Dose: 4 mg Tolterodine Tartrate (Detrol La) 2 mg PO DAILY [facility] Last Admin: 03/27/18 09:24 Dose: 2 mg Warfarin Sodium (Coumadin (Pbkc)) 6 mg PO SuMoWeFrSa@1700 [facility] Warfarin Sodium (Coumadin (Pbkc)) 3 mg PO TuTh@1700 [facility] Clinical Impression(s) from Imaging Studies Chest X-Ray 03/26/18 15:10 IMPRESSION: No acute abnormality is seen. Electronically Signed: Krishan Booker MD at 15:38 EST Tel [phone], Service support , Code Visit Inpatient E&M: [id number] [facility] L[facility]
[2018-03-27 16:46] LABS: Bedside Glucose 217 mg/dL (70-110)
[2018-03-27] MEDS: Atorvastatin Calcium 20 MG Tablet PO (22:14)
[2018-03-27] MEDS: Losartan Potassium 100 MG Tablet PO (22:14)
[2018-03-27 22:41] LABS: Bedside Glucose 218 mg/dL (70-110)
[2018-03-28] VITALS (8 sets, daily range): BP systolic 127–160; BP diastolic 49–71; PULSE 58–73; RESP 14–20; TEMP 36.6–36.7; O2SAT 94–97
[2018-03-28] MEDS: Aspirin E.C. 81 MG Tablet PO (05:26)
[2018-03-28 05:30] LABS: Anion Gap 8 (5-15); BUN 15 mg/dL (7-18); Calcium,Total 8.6 mg/dL (8.5-10.1); Chloride 105 mmol/L (98-107); Creatinine, Serum 0.79 mg/dL (0.55-1.02); EST Glomerular Filtration Rate 77 mL/min (>60); Est Glom Filt Rate - Afr Amer 93 mL/min (>60); Estimated Creatinine Clearance 44.54 ml/min; Glucose 169 mg/dL (74-106); Sodium Level 142 mmol/L (136-145)
[2018-03-28] MEDS: Insulin Lispro 100 UNIT/ML INSULN.PEN SQ ×2 (05:30→16:21)
--- NOTE | 2018-03-28 05:30 | EKG12_ITS ---
Test Reason : AM EKG Blood Pressure : / mmHG Vent. Rate : 062 BPM Atrial Rate : 062 BPM P-R Int : 170 ms QRS Dur : 108 ms QT Int : 448 ms P-R-T Axes : 027 073 032 degrees QTc Int : 454 ms Normal sinus rhythm Nonspecific ST abnormality Abnormal ECG When compared with ECG of 27-MAR-2018 07:23, MANUAL COMPARISON REQUIRED, DATA IS UNCONFIRMED Confirmed by ROSALBA ONEAL, GREG ([id number]), photographic editor SOUMYA BARTH ([id number]) on 03/30/2018 3:06:38 PM Referred By: Ana Bradford Confirmed By:GREG NAVARRETE MD
[2018-03-28 05:34] LABS: Hematocrit 37.4 % (37-47); Mean Corp Hgb Conc 32.1 g/gl (32-36); Mean Corpuscular Hgb 26.6 pg (27.0-32.0); Mean Corpuscular Volume 82.9 fL (81-99); Platelet Count 175 K/mm3 (150-450); RBC Distribution Width CV 16.2 % (11.6-14.6); RBC Distribution Width SD 49.2 fl (35.1-43.9); Red Blood Count 4.51 M/mm3 (4.2-5.4); Scan Indicated on CBC? Y/N NO; White Blood Count 6.4 K/mm3 (4.4-11.0)
[2018-03-28 05:37] LABS: International Normalized Ratio 2.9; Prothrombin Time (Protime)PT. 30.2 SECONDS (11.7-14.9)
[2018-03-28 05:51] LABS: Partial Thromboplast Time 51.9 Seconds (24.1-36.2)
[2018-03-28 06:41] LABS: Bedside Glucose 185 mg/dL (70-110)
--- NOTE | 2018-03-28 10:07 | STRESSREP_ITS ---
Stress Test Report Pharmacologic myocardial perfusion stress test. 67-year-old lady with a history of abnormal cardiac enzymes. Stress protocol: Resting EKG demonstrates normal sinus rhythm with a rate of 69/min normal intervals are noted resting blood pressure is 148/62 mmHg. 0.4 mg of regadenoson was infused per usual protocol followed by rapid intravenous saline flush injection continuous EKG monitoring was performed. The patient maintained sinus rhythm throughout the recording. The maximum heart rate attained was 92 bpm which was 60% of maximum predicted heart rate the maximum workload was 1 metabolic equivalent. At rest there were nonspecific ST-T wave changes noted with normally the criteria for ischemia at peak infusion nonspecific ST-T wave changes were noted. Resting blood pressure is 148/62 with a final blood pressure 144/58. Myocardial perfusion protocol. 14.4 mCi of technetium 99m sestamibi was injected at rest. 0.4 mg of re gadenoson was infused per usual protocol peak infusion 44.2 mCi of technetium 99m sestamibi was injected stress images were obtained stress and rest images were reconstructed and compared in the short axis vertical long horizontal long axis. Gated images were also obtained next Perfusion SPECT analysis: Review of the stress images demonstrate normal cardiac silhouette size. There is mild reduction of perfusion noted involving the anterolateral wall on the stress and resting images to a similar extent. The septum and inferior wall and inferolateral wall appear to be well perfused. No areas of reversibility are noted suggest ischemia. A small anterolateral infarct cannot be completely excluded. Gated SPECT analysis: The gated ejection fraction is noted to be 64%. Conclusion: Pharmacologic myocardial perfusion stress test with no evidence of ischemia. Small anterior lateral infarct cannot be completely excluded. Preserved ejection fraction.
[2018-03-28] MEDS: Loratadine 10 MG Tablet PO (10:15)
[2018-03-28] MEDS: Tolterodine Tartrate 2 MG CAP.SA PO (10:15)
[2018-03-28] MEDS: amLODIPine 10 MG Tablet PO (10:15)
[2018-03-28] MEDS: Furosemide 20 MG Tablet PO (10:15)
[2018-03-28] MEDS: Ferrous Sulfate 325 MG Tablet PO ×2 (10:15→16:20)
[2018-03-28] MEDS: Pantoprazole Sodium 40 MG Tablet PO (10:16)
[2018-03-28] MEDS: Famotidine 20 MG Tablet PO (10:16)
[2018-03-28] MEDS: Atenolol 50 MG Tablet PO (10:16)
[2018-03-28] MEDS: Acetaminophen 325 MG Tablet 650 MG PO (10:19)
--- NOTE | 2018-03-28 10:23 | DCINST_ITS ---
You will use the following diet at home:: Calorie/Carbohydrate Controlled (specify 1200, 1400, etc) - 1800 obi / day, Cardiac Your food should be the consistency of: Regular Your liquids should be the consistency of: Regular/Thin Discharge Activity: Return to Normal Activity Allergies/Adverse Reactions: Allergies adhesive Allergy (Verified 03/26/18 15:02) Rash fluticasone propionate [From Advair Diskus] Allergy (Verified 03/26/18 17:00) chest pain gabapentin [From Neurontin] Allergy (Verified 03/26/18 17:00) Swelling of feet and legs salmeterol xinafoate [From Advair Diskus] Allergy (Verified 03/26/18 17:00) chest pains albuterol [From Ventolin HFA] Adverse Reaction (Verified 03/26/18 17:00) jittery TOO JITTERY cephalexin monohydrate [From Keflex] Adverse Reaction (Verified 03/26/18 17:00) abdominal cramping pregabalin Adverse Reaction (Verified 03/26/18 17:00) makes me slow to respond Medications to take at Discharge Aspirin [Aspirin EC] 81 mg PO DAILY 10/23/16 Furosemide [Lasix] 20 mg PO DAILY 10/23/16 Lansoprazole [Prevacid] 30 mg PO BID 10/23/16 Loratadine 10 mg PO DAILY 10/23/16 Losartan Potassium [Cozaar] 100 mg PO QHS 10/23/16 Metformin(XR) [Glucophage Xr] 1,000 mg PO BID 10/23/16 Polyethylene Glycol 3350 17 gm PO DAILY PRN 10/23/16 Warfarin [Coumadin] 6 mg PO SUMOWEFRSA 10/23/16 glipiZIDE [Glucotrol] 10 mg PO DAILY@0730 10/23/16 Albuterol Sulfate [Ventolin Hfa] 2 puff INHALATION Q4H PRN 03/26/18 Atorvastatin Calcium [Lipitor] 20 mg PO QHS 03/26/18 Ferrous Sulfate 325 mg PO BIDCM 03/26/18 Meclizine HCl [Antivert] 25 mg PO TID PRN PRN 03/26/18 Mupirocin [Bactroban] 1 applicatio NASAL TID PRN 03/26/18 Nitroglycerin [Nitrostat] 0.4 mg SUBLINGUAL Q5M PRN 03/26/18 Nystatin 1 applicatio TP BID PRN 03/26/18 Oxybutynin Chloride [Ditropan Xl] 10 mg PO DAILY 03/26/18 Tizanidine HCl 4 mg PO QHS PRN 03/26/18 Warfarin Sodium 3 mg PO TUTH 03/26/18 Amlodipine [Norvasc] 10 mg PO DAILY #30 tablet 03/28/18 Atenolol [Tenormin (beta yi)] 50 mg PO DAILY #30 tablet 03/28/18 Isosorbide Mononitrate [Imdur] 120 mg PO DAILY #30 tablet 03/28/18 The following prescriptions were given: Amlodipine [Norvasc] 10 mg PO DAILY #30 tablet Atenolol [Tenormin (beta yi)] 50 mg PO DAILY #30 tablet Isosorbide Mononitrate [Imdur] 120 mg PO DAILY #30 tablet Primary Care Physician: Collin Gamez MD [Primary Care Provider] - Please follow up with your Primary Care Physician in: 1-2 weeks Test Results: Test results from this visit will be discussed in further detail at your follow- up appointment, if applicable. Please Follow Up With: Wade Cramer MD When: 3-4 weeks Proposed Discharge Date: 03/28/18
--- NOTE | 2018-03-28 13:59 | PCM.DC.SUM ---
<Efrain Blanco - Last Filed: 03/28/18 13:59> Discharge Date and Diagnosis Date of Admission: 03/26/18 Date of Discharge: 03/28/18 - Primary Discharge Diagnosis New onset Atrial fibrillation with RVR Chest pain with Indeterminate troponins Presence of mechanical aortic valve CAD s/p 3xCABG HTN T2DM Hx SCLC Goiter Morbid obesity - Secondary Discharge Diagnosis Chronic Problems elevated BMI (Chronic) CAD (coronary artery disease) (Chronic) Hx of CABG (Chronic) Type 2 diabetes mellitus (Chronic) Hypertension (Chronic) Chronic obstructive lung disease (Chronic) Hospital Course and Treatment Imaging Results: 03/28/18 05:55 Nuclear Stress Test - Chemical [NM] AM (NON MEDS) Conclusion: Pharmacologic myocardial perfusion stress test with no evidence of ischemia. Small anterior lateral infarct cannot be completely excluded. Preserved ejection fraction. RAD/Chest 1 View (Portable) IMPRESSION: No acute abnormality is seen. Echo: Interpretation Summary Normal LV size. Moderate concentric left ventricular hypertrophy. Left ventricular systolic function is normal. The estimated ejection fraction is 60 %. Stage 3 diastolic dysfunction. Mild (1+) eccentric mitral valve insufficiency. Moderate aortic stenosis. Mean aortic valve gradient 37 mmHg. According to echo from [facility] the aortic valve gradients are similar Consults: Cardiology Operations: None Procedures: 2-D Echocardiogram, Stress test Summary of Care Provided: Hospital Course: The patient is a 67 year old F with pmhx of mechanical aortic valve, on coumadin, CAD with prior 3x CABG, HTN, HLD, DMt2, goiter, SCLC, who presented to the ER with c/o chest discomfort and palpitations. She was found to be in new onset Afib with RVR. She was admitted to the PCU and placed on tele. She was given cardizem for her dysrhythmia and she converted. When she converted she did have a >5 second pause. Cardiology was consulted. She was on warfarin already which was therapeutic. Echo was checked, with findings as above. Troponins were cycled and had a small rise. BNP was mildly elevated, TSH was normal. Stress test was obtained which was negative for ischemia. She was placed on atenolol, increased imdur, increased norvasc. She was discharged home in stable condition. 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 She will need to see her PCP in 1-2 weeks. This patient was seen by Efrain Blanco PA-C under the supervision of Dr. Lainez. [] - Physical Exam General: Alert, Oriented x3, Cooperative HEENT: Atraumatic, PERRLA, EOMI, Normocephalic Neck: Supple, No JVD, Negative Carotid Bruits Lungs: Clear to auscultation, Normal air movement Cardiovascular: Regular rate, No murmurs Abdomen: Bowel Sounds Present, Soft, Non Tender Extremities: No edema, Capillary Refill Less than 3 Seconds Skin: No rashes, No breakdown Musculoskeletal: No Tenderness to Palpation of Joints or Extremities Neurological: Cranial nerves II-XII grossly intact Psych/Mental Status: Normal Affect, Appropriate, Alert and oriented to time, place, person, mood and affect Vital Signs Temp Pulse Resp BP Pulse Ox 97.8 F 58 L 14 138/53 H 94 03/28/18 10:15 03/28/18 11:00 03/28/18 10:15 03/28/18 10:15 03/28/18 10:15 Oxygen Flow Rate (L/min) 2 Oxygen Delivery Method Room Air Weight: 231 lb 0.711 oz Body Mass Index (BMI) 40.9 Intake and Output for Last 24 Hours 03/26/18 03/27/18 03/28/18 23:59 23:59 23:59 Intake Total 650 / 650 1200 / 1200 555 / 555 Output Total 1250 / 1250 700 / 700 Balance 650 / 650 -50 / -50 -145 / -145 Laboratory Tests Past 24 Hrs 03/28/18 03/28/18 03/28/18 05:05 05:05 05:05 WBC 6.4 RBC 4.51 Hgb 12.0 Hct 37.4 MCV 82.9 MCH 26.6 L MCHC 32.1 RDW 16.2 H RDW Differential 49.2 H Plt Count 175 MPV 11.0 PT 30.2 H INR 2.9 APTT 51.9 H Sodium Potassium Chloride Carbon Dioxide Anion Gap BUN Creatinine Estim Creat Clear Calc Est GFR (MDRD) Af Amer Est GFR (MDRD) Non-Af BUN/Creatinine Ratio Glucose Calcium 03/28/18 05:05 WBC RBC Hgb Hct MCV MCH MCHC RDW RDW Differential Plt Count MPV PT INR APTT Sodium 142 Potassium 4.0 Chloride 105 Carbon Dioxide 29.0 Anion Gap 8 BUN 15 Creatinine 0.79 Estim Creat Clear Calc 44.54 Est GFR (MDRD) Af Amer 93 Est GFR (MDRD) Non-Af 77 BUN/Creatinine Ratio 19.0 Glucose 169 H Calcium 8.6 POC Glucose 03/28/18 03/27/18 03/27/18 05:28 22:10 16:16 POC Glucose 185 H 218 H 217 H Discharge Diet: Low fat/ Low Cholesterol, 1800 Calorie Control Diet, 2000 mg Sodium Diet Discharge Activity: Return to Normal Activity Home Medications: Medications to take at Discharge Aspirin [Aspirin EC] 81 mg PO DAILY 10/23/16 Furosemide [Lasix] 20 mg PO DAILY 10/23/16 Lansoprazole [Prevacid] 30 mg PO BID 10/23/16 Loratadine 10 mg PO DAILY 10/23/16 Losartan Potassium [Cozaar] 100 mg PO QHS 10/23/16 Metformin(XR) [Glucophage Xr] 1,000 mg PO BID 10/23/16 Polyethylene Glycol 3350 17 gm PO DAILY PRN 10/23/16 Warfarin [Coumadin] 6 mg PO SUMOWEFRSA 10/23/16 glipiZIDE [Glucotrol] 10 mg PO DAILY@0730 10/23/16 Albuterol Sulfate [Ventolin Hfa] 2 puff INHALATION Q4H PRN 03/26/18 Atorvastatin Calcium [Lipitor] 20 mg PO QHS 03/26/18 Ferrous Sulfate 325 mg PO BIDCM 03/26/18 Meclizine HCl [Antivert] 25 mg PO TID PRN PRN 03/26/18 Mupirocin [Bactroban] 1 applicatio NASAL TID PRN 03/26/18 Nitroglycerin [Nitrostat] 0.4 mg SUBLINGUAL Q5M PRN 03/26/18 Nystatin 1 applicatio TP BID PRN 03/26/18 Oxybutynin Chloride [Ditropan Xl] 10 mg PO DAILY 03/26/18 Tizanidine HCl 4 mg PO QHS PRN 03/26/18 Warfarin Sodium 3 mg PO TUTH 03/26/18 Amlodipine [Norvasc] 10 mg PO DAILY #30 tablet 03/28/18 Atenolol [Tenormin (beta yi)] 50 mg PO DAILY #30 tablet 03/28/18 Isosorbide Mononitrate [Imdur] 120 mg PO DAILY #30 tablet 03/28/18 Following Prescrptions Were Given to Patient: Amlodipine [Norvasc] 10 mg PO DAILY #30 tablet Atenolol [Tenormin (beta yi)] 50 mg PO DAILY #30 tablet Isosorbide Mononitrate [Imdur] 120 mg PO DAILY #30 tablet Primary Care Physician: Collin Gamez MD [Primary Care Provider] - Please follow up with your Primary Care Physician in: 1-2 weeks Please Follow Up With: Wade Cramer MD When: 3-4 weeks Please Follow Up With: Collin Gamez MD Disposition: Home Minutes spent on discharge:: 35 Patient Condition:: Stable Medical Necessity - Tobacco Use Smoking Status: Former smoker Tobacco Use: Cigarettes Meaningful Use Info Meaningful Use Diagnoses (Choose all that apply): None applicable <Alex Lainez - Last Filed: 03/28/18 14:36> Discharge Date and Diagnosis - Secondary Discharge Diagnosis Chronic Problems elevated BMI (Chronic) CAD (coronary artery disease) (Chronic) Hx of CABG (Chronic) Type 2 diabetes mellitus (Chronic) Hypertension (Chronic) Chronic obstructive lung disease (Chronic) Hospital Course and Treatment Imaging Results: 03/28/18 05:55 Nuclear Stress Test - Chemical [NM] AM (NON MEDS) Summary of Care Provided: This patient was seen in conjunction with Efrain Blanco PA-C . I have independently interviewed and examined the patient and reviewed pertinent historical, laboratory, and other data. Please refer to Efrain Blanco PA-C note for details of this patient's presentation, findings, and recommendations. I have reviewed Efrain Blanco PA-C note and concur with documented findings. In brief, patient is a 67-year-old lady with multiple comorbidities including CAD status post CABG, prosthetic(mechanical) valve on systemic anticoagulation with Coumadin, hypertension who presented with palpitations. Patient was found to be in A. fib with RVR started on Cardizem drip admitted to a monitored bed for further management Assessment: 1. A. fib with RVR converted on Cardizem drip 2. Chest pain 3. Prosthetic titanium aortic valve on systemic anticoagulation with a therapeutic INR 4. Diabetes mellitus type 2 5. Essential hypertension 6. COPD stable Hospital course: As elicited above by Efrain Blanco PA-C - Physical Exam Vital Signs Temp Pulse Resp BP Pulse Ox 97.8 F 58 L 14 138/53 H 94 03/28/18 10:15 03/28/18 11:00 03/28/18 10:15 03/28/18 10:15 03/28/18 10:15 Oxygen Flow Rate (L/min) 2 Oxygen Delivery Method Room Air Weight: 104.8 kg Body Mass Index (BMI) 40.9 Intake and Output for Last 24 Hours 03/26/18 03/27/18 03/28/18 23:59 23:59 23:59 Intake Total 650 / 650 1200 / 1200 555 / 555 Output Total 1250 / 1250 700 / 700 Balance 650 / 650 -50 / -50 -145 / -145 Laboratory Tests Past 24 Hrs 03/28/18 03/28/18 03/28/18 05:05 05:05 05:05 WBC 6.4 RBC 4.51 Hgb 12.0 Hct 37.4 MCV 82.9 MCH 26.6 L MCHC 32.1 RDW 16.2 H RDW Differential 49.2 H Plt Count 175 MPV 11.0 PT 30.2 H INR 2.9 APTT 51.9 H Sodium Potassium Chloride Carbon Dioxide Anion Gap BUN Creatinine Estim Creat Clear Calc Est GFR (MDRD) Af Amer Est GFR (MDRD) Non-Af BUN/Creatinine Ratio Glucose Calcium 03/28/18 05:05 WBC RBC Hgb Hct MCV MCH MCHC RDW RDW Differential Plt Count MPV PT INR APTT Sodium 142 Potassium 4.0 Chloride 105 Carbon Dioxide 29.0 Anion Gap 8 BUN 15 Creatinine 0.79 Estim Creat Clear Calc 44.54 Est GFR (MDRD) Af Amer 93 Est GFR (MDRD) Non-Af 77 BUN/Creatinine Ratio 19.0 Glucose 169 H Calcium 8.6 POC Glucose 03/28/18 03/27/18 03/27/18 05:28 22:10 16:16 POC Glucose 185 H 218 H 217 H Code Visit Inpatient E&M: 00139 Disch Hosp
--- NOTE | 2018-03-28 16:00 | NURSING ---
This RN taking over care at this time
[2018-03-28 16:26] LABS: Bedside Glucose 247 mg/dL (70-110)
--- NOTE | 2018-03-29 16:07 | CASEMGMT ---
STEFFI PARNELL Discharge F/U Phone Call LACE: 10 Strata: 3 Discharge date: 03/28/18 Call date: 03/29/18 Call time: [id number] Duration: 3 minutes Admission dx: New onset A-flutter w/ RVR, Chest pain Pt states has been 'doing great' since discharge from hospital and states 'I feel better than I have in a long, long time.' Pt states no questions regarding discharge instructions at this time. Pt does request to get Imdur in 60mg and take twice daily instead of 120mg once daily. Advised pt to speak with Dr. Gamez when she f/u next week regarding same and pt voices understanding. Pt states no suggestions for WC at this time. Pt voices no further questions/concerns/needs at this time. [place] STEFFI PARNELL
== END 2018-03-28 18:31 | disposition home or self-care (01) | DRG 309 ==
LOC: ED 16:07 → PCU 16:11
PROVIDERS: Internal Medicine Cardiovascular Disease; Physician Assistant; Admitting Provider Student in an Organized Health Care Education/Training Program; Emergency Provider Emergency Medicine; Family Provider Family Medicine; PCP Family Medicine; Referring Provider Student in an Organized Health Care Education/Training Program; Visit Provider Internal Medicine
DX: I48.91 Unspecified atrial fibrillation (principal); Z68.41 Body mass index [BMI] 40.0-44.9, adult; I10 Essential (primary) hypertension; E11.9 Type 2 diabetes mellitus without complications; E04.9 Nontoxic goiter, unspecified; I25.10 Atherosclerotic heart disease of native coronary artery without angina pectoris; E66.01 Morbid (severe) obesity due to excess calories; E78.5 Hyperlipidemia, unspecified; R07.9 Chest pain, unspecified; J44.9 Chronic obstructive pulmonary disease, unspecified; Z79.01 Long term (current) use of anticoagulants; Z95.1 Presence of aortocoronary bypass graft; Z79.84 Long term (current) use of oral hypoglycemic drugs; Z92.3 Personal history of irradiation; Z85.118 Personal history of other malignant neoplasm of bronchus and lung; Z95.2 Presence of prosthetic heart valve; Z87.891 Personal history of nicotine dependence; Z79.82 Long term (current) use of aspirin
CPT/HCPCS: 36415; 71045; 78452; 80048; 82962; 83880; 84443; 84484; 85025; 85027; 85610; 85730; 93005; 93017; 93306; 97162; 97165; 99285; A9500; J7030; A4216; J2785

== ENCOUNTER 2018-04-07 05:11 | Inpatient (IN) | payer MEDICARE, SELFPAY ==
[2018-03-26 16:36] VITALS: BMI 40.9
[2018-04-07] VITALS (16 sets, daily range): BP systolic 120–163; BP diastolic 53–67; PULSE 60–103; RESP 18–20; TEMP 36.6–37.2; O2SAT 93–98; BMI 43.0; BMI 41.4
--- NOTE | 2018-04-07 05:47 | EKG12_ITS ---
Test Reason : PALPITATIONS Blood Pressure : / mmHG Vent. Rate : 105 BPM Atrial Rate : 088 BPM P-R Int : 000 ms QRS Dur : 106 ms QT Int : 336 ms P-R-T Axes : 000 082 -29 degrees QTc Int : 444 ms Atrial fibrillation with rapid ventricular response Nonspecific ST abnormality Abnormal QRS-T angle, consider primary T wave abnormality Abnormal ECG Confirmed by ROSALBA ONEAL, GREG ([id number]), editor in chief SOUMYA BARTH ([id number]) on 04/11/2018 3:51:26 PM Referred By: JENISE Confirmed By:GREG NAVARRETE MD
--- NOTE | 2018-04-07 05:47 | RAD_ITS ---
HISTORY: PT STATED AFIB SINCE 033. HX OF BYPASS STENTS EXAM: XR Chest 1 View: Portable COMPARISON: 03/26/2018 FINDINGS: EKG leads in place. Shallow inspiration. The heart appears normal in size. No vascular congestion, pleural effusion, or acute pulmonary infiltration. Median sternotomy and postsurgical changes in keeping with aortic valve replacement and previous CABG. No pneumothorax. Atherosclerotic thoracic aorta. RAD/Chest 1 View (Portable) IMPRESSION: 1. No acute disease or significant change. Xi 2. Postsurgical changes, as above. at 0618 Reported and signed by: Kleber Baig MD Electronically Signed: Kleber Baig, at 6:16 EST Tel , Service support ,
[2018-04-07 05:57] LABS: Absolute Lymphocyte Count 1.76 X10^3/ul (0.83-4.51); Absolute Neutrophil Count 3.9 X10^3/uL (2.0-7.7); Basophil# 0.06 X10^3/uL; Basophil% 0.9 % (0-1); Eosinophil# 0.26 X10^3/uL; Hematocrit 37.2 % (37-47); Hemoglobin 12.4 g/dl (12.0-15.0); Lymphocyte # 1.76 X10^3/ul (4.0); Lymphocyte % 26.7 % (19-41); Mean Corp Hgb Conc 33.3 g/gl (32-36); Mean Corpuscular Hgb 27.4 pg (27.0-32.0); Mean Corpuscular Volume 82.3 fL (81-99); Mean Platelet Vol. 11.8 fl (6.2-12.0); Monocyte# 0.55 X10^3/uL; Monocyte% 8.4 % (0-10); Neutrophil # 3.92 X10^3/uL (2.7-7.7); Neutrophil % 59.5 % (47-70); Platelet Count 166 K/mm3 (150-450); RBC Distribution Width CV 16.5 % (11.6-14.6); RBC Distribution Width SD 48.7 fl (35.1-43.9); Red Blood Count 4.52 M/mm3 (4.2-5.4); White Blood Count 6.6 K/mm3 (4.4-11.0)
[2018-04-07 05:58] LABS: POSITIVE COUNT NO; POSITIVE DIFFERENTIAL NO; POSITIVE MORPHOLOGY NO
[2018-04-07] MEDS: Metoprolol Tartrate 5 MG/5 ML Vial IV (06:03)
[2018-04-07 06:07] LABS: Anion Gap 9 (5-15); BUN 18 mg/dL (7-18); BUN/Creat Ratio 21.4 RATIO (10-20); Chloride 105 mmol/L (98-107); Creatinine, Serum 0.84 mg/dL (0.55-1.02); EST Glomerular Filtration Rate 71 mL/min (>60); Est Glom Filt Rate - Afr Amer 86 mL/min (>60); Estimated Creatinine Clearance 52.29 ml/min; Glucose 237 mg/dL (74-106); Potassium 3.8 mmol/L (3.5-5.1); Sodium Level 139 mmol/L (136-145)
--- NOTE | 2018-04-07 06:58 | ED.VISSUMM ---
- ER Visit Summary Date of Service: 04/07/18 Chief Complaint: Atrial fibrillation History of Present Illness: The patient is a 68 F who presents with atrial fibrillation. She has a known history and is anticoagulated. About 2 hours before he was already awake but began to feel like her heart was racing and fluttering. She developed central chest pressure which she rated as a 5 out of 10. She also felt short of breath. She called EMS. She was given aspirin and 2 nitroglycerin. She reports improvement but not resolution of her chest pain. He was recently admitted for similar symptoms and underwent stress testing. Physical Examination: Afebrile vitals notable for heart rate 102 Heart is irregularly irregular and slightly tachycardic Lungs are clear Abdomen soft nontender Alert Test Results: EKG shows atrial fibrillation at a rate of 105. Chest x-ray shows no acute disease. Labs unremarkable with negative troponin. Emergency Department Course and Treatment: Patient was continued complaint of chest discomfort and pressure despite being rate controlled. She was given additional sublingual nitroglycerin here with resolution of symptoms. Although she did have a recent negative stress with ongoing angina despite being rate controlled I do feel at minimum she needs repeat enzymes. She was discussed with the hospitalist will be admitted. Treatment Plan: [] Disposition: Admit Impression: Chest pain A. fib with RVR This note was generated with [employer] dictation software. It may contain incorrect words, spelling, and punctuation that were not noted in review of the chart prior to signing ED Disposition - Plan for ED Patient: Chief Complaint: Palpitations Referrals: Collin Gamez MD [Primary Care Provider] -
--- NOTE | 2018-04-07 06:58 | NURSING ---
DR GALLAGHER FOR DR BURDEN
--- NOTE | 2018-04-07 07:08 | NURSING ---
PCU OBS CP SEMENTI
[2018-04-07 07:16] LABS: International Normalized Ratio 3.3; Prothrombin Time (Protime)PT. 34.1 SECONDS (11.7-14.9)
--- NOTE | 2018-04-07 07:44 | EKG12_ITS ---
Test Reason : Blood Pressure : / mmHG Vent. Rate : 069 BPM Atrial Rate : 276 BPM P-R Int : 000 ms QRS Dur : 110 ms QT Int : 430 ms P-R-T Axes : 085 084 087 degrees QTc Int : 460 ms Atrial flutter with 4:1 A-V conduction Nonspecific ST abnormality Abnormal ECG When compared with ECG of 07-APR-2018 05:23, MANUAL COMPARISON REQUIRED, DATA IS UNCONFIRMED Confirmed by ROSALBA ONEAL, GREG ([id number]), mapping editor SOUMYA BARTH ([id number]) on 04/11/2018 4:00:50 PM Referred By: ELLIOTT Confirmed By:GREG NAVARRETE MD
[2018-04-07 08:11] LABS: Bedside Glucose 258 mg/dL (70-110)
[2018-04-07 08:32] LABS: Hemoglobin A1c 8.3 % (4.2-6.3)
[2018-04-07] MEDS: Loratadine 10 MG Tablet PO (09:51)
[2018-04-07] MEDS: Tolterodine Tartrate 2 MG CAP.SA PO (09:51)
[2018-04-07] MEDS: Aspirin E.C. 81 MG Tablet PO (09:52)
[2018-04-07] MEDS: glipiZIDE 10 MG Tablet PO (09:52)
[2018-04-07] MEDS: Ferrous Sulfate 325 MG Tablet PO ×2 (09:52→17:42)
[2018-04-07] MEDS: Atenolol 50 MG Tablet PO (09:53)
[2018-04-07] MEDS: Furosemide 20 MG Tablet PO (09:53)
[2018-04-07] MEDS: Pantoprazole Sodium 40 MG Tablet PO ×2 (09:53→21:46)
[2018-04-07] MEDS: amLODIPine 10 MG Tablet PO (09:53)
--- NOTE | 2018-04-07 10:40 | NURSING ---
pt expressing concerns & states she told the ER she wanted to be a DNR. However, now she wants to be a full code. Talked with patient about advanced directives and CM consulted. Also explained differences between DNR, DNRCCA, & Full Code. Will notify MD of patients wishes.
[2018-04-07 11:30] LABS: Bedside Glucose 225 mg/dL (70-110)
--- NOTE | 2018-04-07 12:13 | PCM.HP.STD ---
Problem List (1) Morbid obesity Status: Chronic (2) Unstable angina Status: Acute (3) Paroxysmal atrial fibrillation with RVR Status: Acute (4) H/O prosthetic aortic valve replacement Status: Chronic Comment: 1994 (5) CAD (coronary artery disease) Status: Chronic (6) Chronic obstructive lung disease Status: Chronic (7) Hx of CABG Status: Chronic (8) Hypertension Status: Chronic (9) Type 2 diabetes mellitus Status: Chronic History of Present Illness Date of Admission: 04/07/18 Chief Complaint: palpitations and substernal chest pain The patient is a 68 year old F with a past medical history of coronary artery disease, CABG, prosthetic aortic valve replacement, hypertension, morbid obesity, type 2 diabetes mellitus and COPD who presented to the emergency department at [facility] on 04/07/2018 complaining of sudden onset of her heart racing and substernal chest pain this a.m. The heart racing began prior to the chest discomfort. She had no radiation of the pain but did experience shortness of breath and nausea. EKG in the emergency room showed atrial fibrillation with rapid ventricular response and nonspecific ST and T wave changes. She was recently admitted to the hospital on 03/26/2018 for atrial fibrillation with RVR and at that time had a stress test that was negative for ischemia. She converted to normal sinus rhythm prior to discharge and she was discharged on atenolol 50 mg p.o. daily. Vital signs of presentation to the emergency room were temp 98.8, pulse rate 102, blood pressure 145/53, respiratory rate 20 and she was 95% saturated on room air. She was given metoprolol 5 mg IV while in the emergency room and the heart rate came under better control. All lab was personally reviewed. CBC is unremarkable. INR is therapeutic at 3.3. Electrolytes are within normal limits and the magnesium was 2.0. Initial troponin was less than 0.015. Hemoglobin A1c is 8.3. Chest x-ray shows no infiltrates, pleural effusions or pulmonary vascular congestion. She is being admitted to the hospital with a diagnosis of PAF with RVR/recurrent. Echocardiogram in early March showed moderate concentric left ventricular hypertrophy with a 60% ejection fraction. She has stage III diastolic dysfunction, moderate aortic stenosis with a mean aortic valve gradient of 37. The aortic valve area was 0.9 cm?. The left atrium was mildly enlarged in the right atrium was normal Past Medical History Past Medical History (Chronic Problems): Chronic Problems Morbid obesity (Chronic) H/O prosthetic aortic valve replacement (Chronic) 1995 elevated BMI (Chronic) CAD (coronary artery disease) (Chronic) Hx of CABG (Chronic) Type 2 diabetes mellitus (Chronic) Hypertension (Chronic) Chronic obstructive lung disease (Chronic) Allergies adhesive Allergy (Verified 03/26/18 15:02) Rash fluticasone propionate [From Advair Diskus] Allergy (Verified 03/26/18 17:00) chest pain gabapentin [From Neurontin] Allergy (Verified 03/26/18 17:00) Swelling of feet and legs salmeterol xinafoate [From Advair Diskus] Allergy (Verified 03/26/18 17:00) chest pains albuterol [From Ventolin HFA] Adverse Reaction (Verified 03/26/18 17:00) jittery TOO JITTERY cephalexin monohydrate [From Keflex] Adverse Reaction (Verified 03/26/18 17:00) abdominal cramping pregabalin Adverse Reaction (Verified 03/26/18 17:00) makes me slow to respond Home Medications: Ambulatory Orders Medication Instructions Recorded Aspirin [Aspirin EC] 81 mg PO DAILY 10/23/16 Furosemide [Lasix] 20 mg PO DAILY 10/23/16 Lansoprazole [Prevacid] 30 mg PO BID 10/23/16 Loratadine 10 mg PO DAILY 10/23/16 Losartan Potassium [Cozaar] 100 mg PO QHS 10/23/16 Metformin(XR) [Glucophage Xr] 1,000 mg PO BID 10/23/16 Polyethylene Glycol 3350 17 gm PO DAILY PRN 10/23/16 Warfarin [Coumadin] 6 mg PO SUMOWEFRSA 10/23/16 glipiZIDE [Glucotrol] 10 mg PO DAILY@0730 10/23/16 Albuterol Sulfate [Ventolin Hfa] 2 puff INHALATION Q4H PRN 03/26/18 Atorvastatin Calcium [Lipitor] 20 mg PO QHS 03/26/18 Ferrous Sulfate 325 mg PO BIDCM 03/26/18 Meclizine HCl [Antivert] 25 mg PO TID PRN PRN 03/26/18 Mupirocin [Bactroban] 1 applicatio NASAL TID PRN 03/26/18 Nitroglycerin [Nitrostat] 0.4 mg SUBLINGUAL Q5M PRN 03/26/18 Nystatin 1 applicatio TP BID PRN 03/26/18 Oxybutynin Chloride [Ditropan Xl] 10 mg PO DAILY 03/26/18 Tizanidine HCl 4 mg PO QHS PRN 03/26/18 Warfarin Sodium 3 mg PO TUTH 03/26/18 Amlodipine [Norvasc] 10 mg PO DAILY #30 tablet 03/28/18 Atenolol [Tenormin (beta yi)] 50 mg PO DAILY #30 tablet 03/28/18 Isosorbide Mononitrate [Imdur] 120 mg PO DAILY #30 tablet 03/28/18 Surgical History: - - aortic valve replacement 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: No pertinent psych hx 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 Denies: Syncope Respiratory: Reports: Shortness of Breath, Shortness of breath at rest, Shortness of breath upon exertion. Denies: Cough, Sputum production Gastrointestinal: Reports: Nausea. Denies: Abdominal Pain, Vomiting Genitourinary: Denies: Dysuria Musculoskeletal: Denies: Joint Pain, Joint Tenderness Skin: Denies: Rash, Wounds Neurological: Denies: Numbness, Tingling, Focal weakness Psychiatric: Reports: Anxiety. Denies: Depression, Homicidal Ideations, Suicidal Ideations Hematologic/ Lymphatic: Reports: Easy Bruising, Easy Bleeding. Denies: Hx of blood clot VTE Information - Inpt Only VTE Present on Admission: No VTE Mechan Device Prophylaxis: None VTE Pharm Prophylaxis ordered?: No Reason prophylaxis not ordered:: Treatment Not Indicated - INR is 3.3 on Warfarin Patient Problems: Active and Suspected Problems Unstable angina (Acute) Paroxysmal atrial fibrillation with RVR (Acute) - Physical Exam General: Alert, Oriented x3, Cooperative, No apparent distress, Well developed, Well nourished HEENT: Atraumatic, PERRLA, EOMI, Normocephalic Oral: Moist Mucosa Neck: Supple, No JVD, Negative Carotid Bruits Lungs: Clear to auscultation, Normal air movement Cardiovascular: Normal S1, Normal S2, No murmurs, Irregular Rate, No Gallop, Tachycardic, - - she has a mechanical aortic valve click Abdomen: Bowel Sounds Present, Soft, Non Tender, Obese Extremities: No clubbing, No cyanosis, No edema, Capillary Refill Less than 3 Seconds, No Calf Tenderness Skin: No rashes, No breakdown Musculoskeletal: No Tenderness to Palpation of Joints or Extremities Neurological: Cranial nerves II-XII grossly intact, Neuro grossly intact Psych/Mental Status: Normal Affect, Appropriate, Anxious Vital Signs Temp Pulse Resp BP Pulse Ox 98.4 F 85 20 H 129/58 H 96 04/07/18 08:00 04/07/18 10:59 04/07/18 08:00 04/07/18 08:00 04/07/18 08:00 Oxygen Flow Rate (L/min) 2 Oxygen Delivery Method Room Air Weight: 233 lb 14.567 oz Body Mass Index (BMI) 41.4 Laboratory Tests Past 24 Hrs 04/07/18 04/07/18 04/07/18 05:18 05:18 05:18 WBC 6.6 RBC 4.52 Hgb 12.4 Hct 37.2 MCV 82.3 MCH 27.4 MCHC 33.3 RDW 16.5 H RDW Differential 48.7 H Plt Count 166 MPV 11.8 Immature Gran % (Auto) 0.500 Neut % (Auto) 59.5 Lymph % (Auto) 26.7 Caswell % (Auto) 8.4 Eos % (Auto) 4.0 Baso % (Auto) 0.9 Absolute Neuts (auto) 3.9 Absolute Lymphs (auto) 1.76 Total Counted Not Reportable PT 34.1 H INR 3.3 Sodium 139 Potassium 3.8 Chloride 105 Carbon Dioxide 25.0 Anion Gap 9 BUN 18 Creatinine 0.84 Estim Creat Clear Calc 52.29 Est GFR (MDRD) Af Amer 86 Est GFR (MDRD) Non-Af 71 BUN/Creatinine Ratio 21.4 H Glucose 237 H Hemoglobin A1c Calcium 9.0 Magnesium Troponin I < 0.015 04/07/18 04/07/18 04/07/18 05:18 05:18 08:18 WBC RBC Hgb Hct MCV MCH MCHC RDW RDW Differential Plt Count MPV Immature Gran % (Auto) Neut % (Auto) Lymph % (Auto) Caswell % (Auto) Eos % (Auto) Baso % (Auto) Absolute Neuts (auto) Absolute Lymphs (auto) Total Counted PT INR Sodium Potassium Chloride Carbon Dioxide Anion Gap BUN Creatinine Estim Creat Clear Calc Est GFR (MDRD) Af Amer Est GFR (MDRD) Non-Af BUN/Creatinine Ratio Glucose Hemoglobin A1c 8.3 H Calcium Magnesium 2.0 Troponin I 0.041 04/07/18 11:24 WBC RBC Hgb Hct MCV MCH MCHC RDW RDW Differential Plt Count MPV Immature Gran % (Auto) Neut % (Auto) Lymph % (Auto) Caswell % (Auto) Eos % (Auto) Baso % (Auto) Absolute Neuts (auto) Absolute Lymphs (auto) Total Counted PT INR Sodium Potassium Chloride Carbon Dioxide Anion Gap BUN Creatinine Estim Creat Clear Calc Est GFR (MDRD) Af Amer Est GFR (MDRD) Non-Af BUN/Creatinine Ratio Glucose Hemoglobin A1c Calcium Magnesium Troponin I Pending POC Glucose 04/07/18 04/07/18 11:21 08:07 POC Glucose 225 H 258 H Assessment/Plan All Active Problems Unstable angina (Acute) Paroxysmal atrial fibrillation with RVR (Acute) Impressions 1. unstable angina - I suspect the pain and the increased troponin are due to AF with RVR. The second troponin increased to 0.095.......it peaked at 0.582 on her last admission and the stress test was negative for ischemia. 2. Coronary artery disease with history of CABG 3. Moderate aortic stenosis with history of mechanical aortic valve replacement in 1994-recent valve area 0.9 cm? 4. Hypertension 5. Morbid obesity 6. COPD 7. Diabetes mellitus type 2-not optimally controlled Admit to a monitored bed on PCU ASA 81 mg PO daily SL NTG 0.4 mg PRN chest pain Serial Cardiac Enzymes Stat EKG PRN CP Chest XRAY DC Norvasc and start Cardizem to better control the heart rate Recent stress was negative and she was seen by cardiology at the last visit.......no plan for anything but rate control at present. If unable to control HR or if chest pain persists will reconsult cardiology Code Visit Inpatient E&M: [id number] Init Hosp L3
--- NOTE | 2018-04-07 13:56 | EKG12_ITS ---
Test Reason : RYTHM CHANGE Blood Pressure : / mmHG Vent. Rate : 077 BPM Atrial Rate : 077 BPM P-R Int : 178 ms QRS Dur : 112 ms QT Int : 424 ms P-R-T Axes : 037 078 035 degrees QTc Int : 479 ms Normal sinus rhythm Nonspecific ST abnormality Abnormal ECG When compared with ECG of 07-APR-2018 11:11, MANUAL COMPARISON REQUIRED, DATA IS UNCONFIRMED Confirmed by ROSALBA ONEAL, GREG ([id number]), photo editor SOUMYA BARTH ([id number]) on 04/11/2018 4:01:31 PM Referred By: ELLIOTT Confirmed By:GREG NAVARRETE MD
--- NOTE | 2018-04-07 14:00 | NURSING ---
this RN entered room @ 1350 to patient stating she needed help, felt like she was going to pass out and couldn't breathe. Pt josemanuel on telemetry. Eyes rolled back in pt's head, but pt remained conscious. Applied 2L O2, other VS stable. Appeared pt flipped back into SR. EKG to confirm. notified.
[2018-04-07] MEDS: dilTIAZem CD 120 MG Capsule PO ×2 (14:38→21:46)
--- NOTE | 2018-04-07 16:44 | CM.UR ---
RN CM assessment (approximately 1:20pm) Face to Face with patient for initial transition planning/care coordination assessment. RN CM introduced self and role at [facility], pt voices understanding and consents to assessment at this time. Pt is sitting up in bed in no distress at this time. Pt is A/Ox4 at this time and answers all questions appropriately at this time. Care providers, pharmacy, and demographics verified at this time. + readmission. PCP: Vera Specialists: Shoaib, cardio; onc at [facility] Preferred [facility]acy: [facility] Insurance: General Blood [facility] Prescription Benefit: [facility] Living Will/HPOA: Pt states does not have LW/HPOA. She wanted the information at this time. States she initially told them in ER that she wanted to be a DNR but she changed her mind. Gave her the informational booklet plus the actual packet of forms. States she wants to talk to her family about it. Explained that a SW can assist filling them out, answer additional questions, etc. Explained if she fills them out ahead of time--to NOT sign them. Explained they should be signed in presence of a notary or two impartial witnesses. Verb understanding. LNOK: Luis Pablo, son; Bear Almanzar, daughter Living Arrangements: Pt states lives with great-granddaughter and sometimes daughter on main level of 2 story home with a couple steps into home and states no concerns at home at this time. Transportation: Pt states drives self and states no transportation concerns at this time. DME/HHC: Pt states has canes/walker at home but does not use. Pt also states has a nebulizer that she does use. Pt states no need for any further DME at this time. Pt states no hx of HHC or SNF in the past. Pt states no concerns with going home at time of discharge. Pt states is retired. Pt states does not smoke or drink ETOH. Pt states no further concerns/needs at this time. CM to follow for any further discharge planning/needs. Advised pt to ask for CM if any further questions/concerns/needs arise, voices understanding. Plan: Home Stacey Harrison RN, CCM.
[2018-04-07 16:56] LABS: Bedside Glucose 197 mg/dL (70-110)
[2018-04-07] MEDS: Atorvastatin Calcium 20 MG Tablet PO (21:45)
[2018-04-07] MEDS: Losartan Potassium 100 MG Tablet PO (21:46)
[2018-04-07 23:10] LABS: Bedside Glucose 183 mg/dL (70-110)
[2018-04-08] VITALS (15 sets, daily range): BP systolic 108–139; BP diastolic 35–66; PULSE 31–71; RESP 16–20; TEMP 36.6–37.7; O2SAT 93–98
[2018-04-08 06:55] LABS: Prothrombin Time (Protime)PT. 35.5 SECONDS (11.7-14.9)
[2018-04-08] MEDS: glipiZIDE 10 MG Tablet PO (07:08)
[2018-04-08 07:13] LABS: International Normalized Ratio 3.5
[2018-04-08 07:16] LABS: Bedside Glucose 169 mg/dL (70-110)
--- NOTE | 2018-04-08 08:31 | PCM.PROGNOTE ---
Patient Problems: Active and Suspected Problems Unstable angina (Acute) Paroxysmal atrial fibrillation with RVR (Acute) Subjective: The patient is a 68-year-old female admitted to [facility] on 04/07/2018 with atrial fibrillation with rapid ventricular response and chest pain. She converted to normal sinus rhythm in the afternoon on 04/07/2018. Norvasc was discontinued and she was started on Cardizem for better rate control when she is in AF and to prevent PAF. she received the first dose of Cardizem this AM and now has SB with pauses. The longest pause is 2.68 seconds. She denies chest pain but does complain of lightheadedness and shortness of breath. Temp today is 99.8. Vital signs are stable with exception of the HR Telemetry: SB with pauses Lab: All lab was personally reviewed. The INR today is 3.5 despite holding warfarin on 04/07/18. Blood sugars are adequately controlled. - Physical Exam General: Alert, Oriented x3, Cooperative HEENT: PERRLA, EOMI Oral: Moist Mucosa Neck: No JVD Lungs: Clear to auscultation, No rhonchi, No wheeze, No rales Cardiovascular: Normal S1, Normal S2, No murmurs, Bradycardic, No Gallop, - - irregular due to pauses Abdomen: Bowel Sounds Present, Soft, Non Tender, Non-Distended Extremities: No Calf Tenderness, Edema - trace pretibial edema Skin: No rashes, No breakdown Neurological: Cranial nerves II-XII grossly intact, Neuro grossly intact Psych/Mental Status: Appropriate, Anxious Vital Signs Temp Pulse Resp BP Pulse Ox 99.8 F H 63 18 135/63 H 94 04/08/18 03:47 04/08/18 07:00 04/08/18 03:47 04/08/18 03:47 04/08/18 07:14 Oxygen Flow Rate (L/min) 4 Oxygen Delivery Method Room Air Weight: 233 lb 14.567 oz Body Mass Index (BMI) 41.4 Intake and Output for Last 24 Hours 04/06/18 04/07/18 04/08/18 23:59 23:59 23:59 Intake Total 990 / 990 100 / 100 Balance 990 / 990 100 / 100 Laboratory Tests Past 24 Hrs 04/07/18 04/07/18 04/07/18 05:18 08:18 11:24 PT INR Hemoglobin A1c 8.3 H Troponin I 0.041 0.095 H 04/08/18 06:18 PT 35.5 H INR 3.5 H* Hemoglobin A1c Troponin I POC Glucose 04/08/18 04/07/18 04/07/18 07:06 21:44 16:49 POC Glucose 169 H 183 H 197 H 04/07/18 11:21 POC Glucose 225 H Medical Necessity - Tobacco Use Smoking Status: Former smoker Tobacco Use: Non-smoker Assessment/Plan All Active Problems Unstable angina (Acute) Paroxysmal atrial fibrillation with RVR (Acute) Impressions 1. unstable angina - I suspect the pain and the increased troponin are due to AF with RVR. The second troponin increased to 0.095.......it peaked at 0.582 on her last admission and the stress test was negative for ischemia. 2. Coronary artery disease with history of CABG 3. Moderate aortic stenosis with history of mechanical aortic valve replacement in 1994-recent valve area 0.9 cm? 4. Hypertension 5. Morbid obesity 6. COPD 7. Diabetes mellitus type 2-not optimally controlled 8. SB with pauses - suspect due to Cardizem add to control the fast HR.......was on Atenolol 50 mg at home when she had the RVR. She may have SSS. May need a PM. Will consult Cardiology in the AM regarding how to manage the AF with the tachy/josemanuel going forward DC Cardizem Pt is symptomatic but tolerating it....would like to avoid Atropine if possible so we do not precipitate another AF with rvr Hold Coumadin today and recheck the INR in the AM Recheck a BMP in the AM and a mag Code Visit Inpatient E&M: [id number] [facility] Hosp L3
[2018-04-08] MEDS: Aspirin E.C. 81 MG Tablet PO (08:46)
[2018-04-08] MEDS: Loratadine 10 MG Tablet PO (08:47)
[2018-04-08] MEDS: Ferrous Sulfate 325 MG Tablet PO ×2 (08:47→16:36)
[2018-04-08] MEDS: dilTIAZem CD 120 MG Capsule PO (08:47)
[2018-04-08] MEDS: Tolterodine Tartrate 2 MG CAP.SA PO (08:48)
[2018-04-08] MEDS: Atenolol 50 MG Tablet PO (08:48)
[2018-04-08] MEDS: Furosemide 20 MG Tablet PO (08:48)
[2018-04-08] MEDS: Pantoprazole Sodium 40 MG Tablet PO ×2 (08:48→22:47)
--- NOTE | 2018-04-08 09:33 | EKG12_ITS ---
Test Reason : Blood Pressure : / mmHG Vent. Rate : 062 BPM Atrial Rate : 062 BPM P-R Int : 194 ms QRS Dur : 112 ms QT Int : 454 ms P-R-T Axes : 046 082 039 degrees QTc Int : 460 ms Normal sinus rhythm Normal ECG When compared with ECG of 07-APR-2018 14:14, MANUAL COMPARISON REQUIRED, DATA IS UNCONFIRMED Confirmed by ROSALBA ONEAL, GREG ([id number]), clinical editor SOUMYA BARTH ([id number]) on 04/11/2018 3:58:03 PM Referred By: ELLIOTT Confirmed By:GREG NAVARRETE MD
[2018-04-08 11:16] LABS: Bedside Glucose 200 mg/dL (70-110)
[2018-04-08 16:35] LABS: Bedside Glucose 229 mg/dL (70-110)
[2018-04-08] MEDS: Acetaminophen 325 MG Tablet 650 MG PO (16:36)
[2018-04-08] MEDS: Atorvastatin Calcium 20 MG Tablet PO (22:47)
[2018-04-08] MEDS: Losartan Potassium 100 MG Tablet PO (22:47)
[2018-04-08 23:10] LABS: Bedside Glucose 181 mg/dL (70-110)
[2018-04-09] VITALS (11 sets, daily range): BP systolic 118–147; BP diastolic 39–68; PULSE 62–74; RESP 16–20; TEMP 36.5–36.9; O2SAT 92–97
[2018-04-09] MEDS: glipiZIDE 10 MG Tablet PO (06:47)
[2018-04-09 06:52] LABS: Hematocrit 35.2 % (37-47); Hemoglobin 11.4 g/dl (12.0-15.0); Mean Corp Hgb Conc 32.4 g/gl (32-36); Mean Corpuscular Hgb 27.3 pg (27.0-32.0); Mean Corpuscular Volume 84.2 fL (81-99); Mean Platelet Vol. 11.8 fl (6.2-12.0); Platelet Count 167 K/mm3 (150-450); RBC Distribution Width CV 16.8 % (11.6-14.6); RBC Distribution Width SD 50.8 fl (35.1-43.9); Red Blood Count 4.18 M/mm3 (4.2-5.4); White Blood Count 8.4 K/mm3 (4.4-11.0)
[2018-04-09 06:55] LABS: Scan Indicated on CBC? Y/N NO
[2018-04-09 06:56] LABS: Bedside Glucose 140 mg/dL (70-110)
[2018-04-09 06:57] LABS: International Normalized Ratio 2.5
[2018-04-09 06:59] LABS: Anion Gap 8 (5-15); BUN 24 mg/dL (7-18); BUN/Creat Ratio 29.6 RATIO (10-20); Calcium,Total 8.4 mg/dL (8.5-10.1); Chloride 106 mmol/L (98-107); Creatinine, Serum 0.81 mg/dL (0.55-1.02); EST Glomerular Filtration Rate 74 mL/min (>60); Est Glom Filt Rate - Afr Amer 90 mL/min (>60); Estimated Creatinine Clearance 54.22 ml/min; Glucose 134 mg/dL (74-106); Magnesium 2.1 mg/dL (1.6-2.6); Potassium 4.1 mmol/L (3.5-5.1); Sodium Level 139 mmol/L (136-145)
[2018-04-09] MEDS: Aspirin E.C. 81 MG Tablet PO (08:37)
[2018-04-09] MEDS: Ferrous Sulfate 325 MG Tablet PO ×2 (08:37→16:52)
--- NOTE | 2018-04-09 09:25 | PCM.CONS.C ---
Reason for Consult Date of Consultation: 04/09/18 Reason for Consultation: Chest pain abnormal cardiac enzymes. Irregular heart rate History of Present Illness: The patient is a 68 year old F with an extensive past medical history consisting of coronary artery disease status post coronary artery bypass surgery, prosthetic aortic valve replacement and hypertension. She presented to the emergency room with complaints of chest discomfort and palpitations. She said that she had had some symptoms of chest discomfort before with chest pain radiating down the right side of her neck. She called emergency medical squad and when they saw her she was noted to be in atrial fibrillation and they brought her in to be in the emergency room. In the emergency room she was evaluated and was noted to be in atrial fibrillation with rapid ventricular response rate. She had presented to the hospital a week ago in atrial fibrillation with rapid ventricular response rate and converted to sinus rhythm. She underwent a pharmacologic myocardial perfusion stress test which demonstrated no evidence of ischemia a small anterolateral infarct cannot be completely excluded though. An echocardiogram was performed which demonstrated preserved ejection fraction with a stable prosthetic valve and a mean gradient of 37 mmHg across. During this hospitalization she was started on Cardizem and became bradycardic. Due to her mildly abnormal cardiac enzymes it was felt that she should undergo further cardiology evaluation with a cardiac catheterization. she has not had any further chest discomfort. Past Medical History Allergies/Adverse Reactions: Allergies adhesive Allergy (Verified 03/26/18 15:02) Rash fluticasone propionate [From Advair Diskus] Allergy (Verified 03/26/18 17:00) chest pain gabapentin [From Neurontin] Allergy (Verified 03/26/18 17:00) Swelling of feet and legs salmeterol xinafoate [From Advair Diskus] Allergy (Verified 03/26/18 17:00) chest pains albuterol [From Ventolin HFA] Adverse Reaction (Verified 03/26/18 17:00) jittery TOO JITTERY cephalexin monohydrate [From Keflex] Adverse Reaction (Verified 03/26/18 17:00) abdominal cramping pregabalin Adverse Reaction (Verified 03/26/18 17:00) makes me slow to respond Home Medications: Ambulatory Orders Medication Instructions Recorded Aspirin [Aspirin EC] 81 mg PO DAILY 10/23/16 Furosemide [Lasix] 20 mg PO DAILY 10/23/16 Lansoprazole [Prevacid] 30 mg PO BID 10/23/16 Loratadine 10 mg PO DAILY 10/23/16 Losartan Potassium [Cozaar] 100 mg PO QHS 10/23/16 Metformin(XR) [Glucophage Xr] 1,000 mg PO BID 10/23/16 Polyethylene Glycol 3350 17 gm PO DAILY PRN 10/23/16 Warfarin [Coumadin] 6 mg PO SUMOWEFRSA 10/23/16 glipiZIDE [Glucotrol] 10 mg PO DAILY@0730 10/23/16 Albuterol Sulfate [Ventolin Hfa] 2 puff INHALATION Q4H PRN 03/26/18 Atorvastatin Calcium [Lipitor] 20 mg PO QHS 03/26/18 Ferrous Sulfate 325 mg PO BIDCM 03/26/18 Meclizine HCl [Antivert] 25 mg PO TID PRN PRN 03/26/18 Mupirocin [Bactroban] 1 applicatio NASAL TID PRN 03/26/18 Nitroglycerin [Nitrostat] 0.4 mg SUBLINGUAL Q5M PRN 03/26/18 Nystatin 1 applicatio TP BID PRN 03/26/18 Oxybutynin Chloride [Ditropan Xl] 10 mg PO DAILY 03/26/18 Tizanidine HCl 4 mg PO QHS PRN 03/26/18 Warfarin Sodium 3 mg PO TUTH 03/26/18 Amlodipine [Norvasc] 10 mg PO DAILY #30 tablet 03/28/18 Atenolol [Tenormin (beta yi)] 50 mg PO DAILY #30 tablet 03/28/18 Isosorbide Mononitrate [Imdur] 120 mg PO DAILY #30 tablet 03/28/18 Past Medical History (Chronic Problems): Chronic Problems Morbid obesity (Chronic) H/O prosthetic aortic valve replacement (Chronic) 1994 elevated BMI (Chronic) CAD (coronary artery disease) (Chronic) Hx of CABG (Chronic) Type 2 diabetes mellitus (Chronic) Hypertension (Chronic) Chronic obstructive lung disease (Chronic) Surgical History: - - aortic valve replacement 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: No pertinent psych hx 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 - *Family History Sibling History Items: Cancer - colorectal cancer in sister, Heart Disease Maternal History Items: Heart Disease, Hypertension Paternal History Items: Heart Disease, Hypertension Smoking Status: Former smoker Tobacco Use: Non-smoker Alcohol: Rare Drugs: None Subjectve: Pleasant lady in no apparent distress Objective: Vital Signs Temp Pulse Resp BP Pulse Ox 97.7 F L 67 17 147/68 H 94 04/09/18 08:29 04/09/18 08:29 04/09/18 08:29 04/09/18 08:29 04/09/18 08:29 Oxygen Flow Rate (L/min) 2 Oxygen Delivery Method Room Air Weight: 233 lb 14.567 oz Body Mass Index (BMI) 41.4 Intake and Output for Last 24 Hours 04/07/18 04/08/18 04/09/18 23:59 23:59 23:59 Intake Total 990 / 990 1180 / 1180 150 / 150 Balance 990 / 990 1180 / 1180 150 / 150 General: Awake, Alert, Oriented x 3 HEENT: PERRL, EOMI, Sclera Non Icteric Neck: Supple, Good ROM, No Lymph Node Enlargement Lungs: Clear to auscultation Cardiovascular: Regular Rhythm, Normal S1, Normal S2, No Rubs, No Gallops, [place] Prosthetic S1 Murmur Murmur: Grade 1/6, Early Systolic, LLSB Vascular: No Carotid Bruits, Normal Femoral Pulses, Normal Radial Pulses, Normal Dorsalis Pedal Pulse, Normal Posterior Tibial Pulses Abdomen: Bowel Sounds Present, Soft, Non Tender, No HSM, No Organomegaly Extremities: No Cyanosis, No Clubbing, No edema Musculoskeletal: No Erythema Skin: No Rashes Lymphatic: No Lymph Node Enlargement Neurological: No Focal Motor or Sensory Deficit Psych/Mental Status: Appropriate 04/09/18 06:24: Sodium 139, Potassium 4.1, Chloride 106, Carbon Dioxide 25.0, Anion Gap 8, BUN 24 H, Creatinine 0.81, Est GFR (MDRD) Af Amer 90, Est GFR (MDRD) Non-Af 74, BUN/Creatinine Ratio 29.6 H, Glucose 134 H, Calcium 8.4 L, Magnesium 2.1 04/09/18 06:24: WBC 8.4, RBC 4.18 L, Hgb 11.4 L, Hct 35.2 L, MCV 84.2, MCH 27.3, MCHC 32.4, RDW 16.8 H, RDW Differential 50.8 H, Plt Count 167, MPV 11.8 04/09/18 06:24: PT 27.0 H, INR 2.5 Rhythm: EKG: Normal sinus rhythm with a rate of 62 bpm and no acute changes Assessment/Plan 1. Atrial fibrillation with rapid ventricular response rate Patient presents with recent onset atrial fibrillation flutter which responded very well to intravenous Cardizem. She has spontaneously converted back to sinus rhythm and is on the beta-yi Would suggest continue anticoagulation with Coumadin Echocardiogram demonstrated normal left ventricular size and function Agree with the continuation of her beta-yi at 50 mg a day and will consider adding amiodarone 200 mg a day to her regimen. 2. Chest pain Patient has known coronary artery disease status post coronary bypass surgery Chest discomfort is somewhat atypical but thus far her cardiac enzymes are minimally abnormal with no ischemia noted on a recent stress test. I would like to discuss this further with the primary writing manager as to whether we continue to manage this medically or needs a cardiac catheterization. This is because the anticoagulation would need to be discontinued completely and we have to weigh the risks versus the benefit. 3. 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 Coronary artery disease Patient is status post coronary bypass surgery We will continue cardiac enzymes to rule out acute coronary syndrome. At this time I suspect the above is more secondary to demand ischemia. 5. Hypertension Pressure control appears to be fair Would recommend the addition of the beta-yi. Thank you for allowing me to participate in the care of your patient. Please don't hesitate to call if any issues arise
--- NOTE | 2018-04-09 09:29 | CON.PCM_ITS ---
Reason for Consult Date of Consultation: 04/09/18 Reason for Consultation: Chest pain abnormal cardiac enzymes. Irregular heart rate History of Present Illness: The patient is a 68 year old F with an extensive past medical history consisting of coronary artery disease status post coronary artery bypass surgery, prosthetic aortic valve replacement and hypertension. She presented to the emergency room with complaints of chest discomfort and palpitations. She said that she had had some symptoms of chest discomfort before with chest pain radiating down the right side of her neck. She called emergency medical squad and when they saw her she was noted to be in atrial fibrillation and they brought her in to be in the emergency room. In the emergency room she was evaluated and was noted to be in atrial fibrillation with rapid ventricular response rate. She had presented to the hospital a week ago in atrial fibrillation with rapid ventricular response rate and converted to sinus rhythm. She underwent a pharmacologic myocardial perfusion stress test which demonstrated no evidence of ischemia a small anterolateral infarct cannot be completely excluded though. An echocardiogram was performed which demonstrated preserved ejection fraction with a stable prosthetic valve and a mean gradient of 37 mmHg across. During this hospitalization she was started on Cardizem and became bradycardic. Due to her mildly abnormal cardiac enzymes it was felt that she should undergo further cardiology evaluation with a cardiac catheterization. she has not had any further chest discomfort. Past Medical History Allergies/Adverse Reactions: Allergies adhesive Allergy (Verified 03/26/18 15:02) Rash fluticasone propionate [From Advair Diskus] Allergy (Verified 03/26/18 17:00) chest pain gabapentin [From Neurontin] Allergy (Verified 03/26/18 17:00) Swelling of feet and legs salmeterol xinafoate [From Advair Diskus] Allergy (Verified 03/26/18 17:00) chest pains albuterol [From Ventolin HFA] Adverse Reaction (Verified 03/26/18 17:00) jittery TOO JITTERY cephalexin monohydrate [From Keflex] Adverse Reaction (Verified 03/26/18 17:00) abdominal cramping pregabalin Adverse Reaction (Verified 03/26/18 17:00) makes me slow to respond Home Medications: Ambulatory Orders Medication Instructions Recorded Aspirin [Aspirin EC] 81 mg PO DAILY 10/23/16 Furosemide [Lasix] 20 mg PO DAILY 10/23/16 Lansoprazole [Prevacid] 30 mg PO BID 10/23/16 Loratadine 10 mg PO DAILY 10/23/16 Losartan Potassium [Cozaar] 100 mg PO QHS 10/23/16 Metformin(XR) [Glucophage Xr] 1,000 mg PO BID 10/23/16 Polyethylene Glycol 3350 17 gm PO DAILY PRN 10/23/16 Warfarin [Coumadin] 6 mg PO SUMOWEFRSA 10/23/16 glipiZIDE [Glucotrol] 10 mg PO DAILY@0730 10/23/16 Albuterol Sulfate [Ventolin Hfa] 2 puff INHALATION Q4H PRN 03/26/18 Atorvastatin Calcium [Lipitor] 20 mg PO QHS 03/26/18 Ferrous Sulfate 325 mg PO BIDCM 03/26/18 Meclizine HCl [Antivert] 25 mg PO TID PRN PRN 03/26/18 Mupirocin [Bactroban] 1 applicatio NASAL TID PRN 03/26/18 Nitroglycerin [Nitrostat] 0.4 mg SUBLINGUAL Q5M PRN 03/26/18 Nystatin 1 applicatio TP BID PRN 03/26/18 Oxybutynin Chloride [Ditropan Xl] 10 mg PO DAILY 03/26/18 Tizanidine HCl 4 mg PO QHS PRN 03/26/18 Warfarin Sodium 3 mg PO TUTH 03/26/18 Amlodipine [Norvasc] 10 mg PO DAILY #30 tablet 03/28/18 Atenolol [Tenormin (beta yi)] 50 mg PO DAILY #30 tablet 03/28/18 Isosorbide Mononitrate [Imdur] 120 mg PO DAILY #30 tablet 03/28/18 Past Medical History (Chronic Problems): Chronic Problems Morbid obesity (Chronic) H/O prosthetic aortic valve replacement (Chronic) 1994 elevated BMI (Chronic) CAD (coronary artery disease) (Chronic) Hx of CABG (Chronic) Type 2 diabetes mellitus (Chronic) Hypertension (Chronic) Chronic obstructive lung disease (Chronic) Surgical History: - - aortic valve replacement 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: 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 - *Family History Sibling History Items: Cancer - colorectal cancer in sister, Heart Disease Maternal History Items: Heart Disease, Hypertension Paternal History Items: Heart Disease, Hypertension Smoking Status: Former smoker Tobacco Use: Non-smoker Alcohol: Rare Drugs: None Subjectve: Pleasant lady in no apparent distress Objective: Vital Signs Temp Pulse Resp BP Pulse Ox 97.7 F L 67 17 147/68 H 94 04/09/18 08:29 04/09/18 08:29 04/09/18 08:29 04/09/18 08:29 04/09/18 08:29 Oxygen Flow Rate (L/min) 2 Oxygen Delivery Method Room Air Weight: 233 lb 14.567 oz Body Mass Index (BMI) 41.4 Intake and Output for Last 24 Hours 04/07/18 04/08/18 04/09/18 23:59 23:59 23:59 Intake Total 990 / 990 1180 / 1180 150 / 150 Balance 990 / 990 1180 / 1180 150 / 150 General: Awake, Alert, Oriented x 3 HEENT: PERRL, EOMI, Sclera Non Icteric Neck: Supple, Good ROM, No Lymph Node Enlargement Lungs: Clear to auscultation Cardiovascular: Regular Rhythm, Normal S1, Normal S2, No Rubs, No Gallops, [place] Prosthetic S1 Murmur Murmur: Grade 1/6, Early Systolic, LLSB Vascular: No Carotid Bruits, Normal Femoral Pulses, Normal Radial Pulses, Normal Dorsalis Pedal Pulse, Normal Posterior Tibial Pulses Abdomen: Bowel Sounds Present, Soft, Non Tender, No HSM, No Organomegaly Extremities: No Cyanosis, No Clubbing, No edema Musculoskeletal: No Erythema Skin: No Rashes Lymphatic: No Lymph Node Enlargement Neurological: No Focal Motor or Sensory Deficit Psych/Mental Status: Appropriate 04/09/18 06:24: Sodium 139, Potassium 4.1, Chloride 106, Carbon Dioxide 25.0, Anion Gap 8, BUN 24 H, Creatinine 0.81, Est GFR (MDRD) Af Amer 90, Est GFR (MDRD) Non-Af 74, BUN/Creatinine Ratio 29.6 H, Glucose 134 H, Calcium 8.4 L, Magnesium 2.1 04/09/18 06:24: WBC 8.4, RBC 4.18 L, Hgb 11.4 L, Hct 35.2 L, MCV 84.2, MCH 27.3, MCHC 32.4, RDW 16.8 H, RDW Differential 50.8 H, Plt Count 167, MPV 11.8 04/09/18 06:24: PT 27.0 H, INR 2.5 Rhythm: EKG: Normal sinus rhythm with a rate of 62 bpm and no acute changes Assessment/Plan 1. Atrial fibrillation with rapid ventricular response rate * Patient presents with recent onset atrial fibrillation flutter which responded very well to intravenous Cardizem. She has spontaneously converted back to sinus rhythm and is on the beta-iy * Would suggest continue anticoagulation with Coumadin * Echocardiogram demonstrated normal left ventricular size and function * Agree with the continuation of her beta-yi at 50 mg a day and will consider adding amiodarone 200 mg a day to her regimen. * 2. Chest pain * Patient has known coronary artery disease status post coronary bypass surgery * Chest discomfort is somewhat atypical but thus far her cardiac enzymes are minimally abnormal with no ischemia noted on a recent stress test. I would like to discuss this further with the primary certified ophthalmic assistant as to whether we continue to manage this medically or needs a cardiac catheterization. This is because the anticoagulation would need to be discontinued completely and we have to weigh the risks versus the benefit. * * 3. Prosthetic aortic valve- * Patient has been on anticoagulation and appears to be functioning well * Obtain echocardiogram to assess the above * Obtain records to confirm an INR of 2.5-3.5 * 4. Coronary artery disease * Patient is status post coronary bypass surgery * We will continue cardiac enzymes to rule out acute coronary syndrome. At this time I suspect the above is more secondary to demand ischemia. * 5. Hypertension * Pressure control appears to be fair * Would recommend the addition of the beta-yi. * * Thank you for allowing me to participate in the care of your patient. Please don't hesitate to call if any issues arise
--- NOTE | 2018-04-09 10:31 | EKG12_ITS ---
Test Reason : CHEST PAIN Blood Pressure : / mmHG Vent. Rate : 068 BPM Atrial Rate : 068 BPM P-R Int : 188 ms QRS Dur : 116 ms QT Int : 446 ms P-R-T Axes : 045 070 000 degrees QTc Int : 474 ms Normal sinus rhythm Incomplete right bundle branch block Nonspecific ST abnormality Abnormal ECG When compared with ECG of 08-APR-2018 09:37, MANUAL COMPARISON REQUIRED, DATA IS UNCONFIRMED Confirmed by ROSALBA ONEAL, GREG ([id number]), assignment editor SOUMYA BARTH ([id number]) on 04/13/2018 2:15:47 PM Referred By: ELLIOTT Confirmed By:GREG NAVARRETE MD
[2018-04-09] MEDS: Amiodarone 200 MG Tablet PO (10:32)
[2018-04-09] MEDS: Tolterodine Tartrate 2 MG CAP.SA PO (10:32)
[2018-04-09] MEDS: Loratadine 10 MG Tablet PO (10:32)
[2018-04-09] MEDS: Atenolol 50 MG Tablet PO (10:33)
[2018-04-09] MEDS: Pantoprazole Sodium 40 MG Tablet PO ×2 (10:33→21:09)
[2018-04-09] MEDS: Furosemide 20 MG Tablet PO (10:33)
[2018-04-09 11:55] LABS: Bedside Glucose 203 mg/dL (70-110)
--- NOTE | 2018-04-09 12:21 | CASEMGMT ---
This STEFFI CM to room with FERRELL form at this time, explanation done and pt voices understanding. Pt signed FERRELL form at this time. Original to chart and copy to pt. Sis KAPADIA CM
[2018-04-09 17:11] LABS: Bedside Glucose 212 mg/dL (70-110)
[2018-04-09] MEDS: 0.9% NaCl Peripheral Flush Adult/Peds IV (17:32)
--- NOTE | 2018-04-09 18:45 | PN_ITS ---
Patient Problems: Active and Suspected Problems Unstable angina (Acute) Paroxysmal atrial fibrillation with RVR (Acute) Subjective: All events of the past 24 hours of been reviewed. Severe bradycardia has resolved with discontinuation of Cardizem. I discussed her treatment plan with Dr. Moo Schrader and he recommended cardiac catheterization. Dr. Marie was consulted and he feels that the elevation in the troponins is likely due to demand ischemia related to A. fib RVR. Patient clearly states that the fast heart rate started prior to chest pain. Dr. Marie spoke to Dr. Schrader and will defer cardiac cath at this time and start the patient on oral amiodarone. She is afebrile. Blood pressures are well controlled. She is 97% saturated on a 2 L nasal cannula today. All lab was personally reviewed. The INR is 2.5 today and will restart Coumadin and give 6 mg today. Electrolytes are within normal limits and the BUN is 24 with a creatinine of 0.81. I reviewed the blood sugar record and blood sugars at noon and 5 PM are mildly elevated. She denies chest pain today. Her shortness of breath has improved. She denies lightheadedness. She does admit to feeling anxious. Objective: PHYSICAL EXAM: GENERAL: alert, oriented X 3, Cooperative, NAD, looks much better today than yesterday when the HR was in the high 30's and low 40's ORAL: moist mucosa, no mucosal lesions NECK: No JVD, supple, trachea midline LUNGS: CTA, symmetric chest expansion, not tachypneic, no conversational dyspnea, no accessory muscle use HEART: RRR, Normal S1 and S2, no rub, no gallop ABDOMEN: soft, NT, ND, BS present, no guarding with palpation, obese EXTREMITIES: +1 pretibial edema, no cyanosis, no calf tenderness SKIN: No rashes, no breakdown NEUROLOGIC: no focal neurologic deficits PSYCH: appropriate, normal affect, pleasant - Physical Exam Vital Signs Temp Pulse Resp BP Pulse Ox 98.2 F 74 16 118/39 L 97 04/09/18 14:00 04/09/18 15:14 04/09/18 14:00 04/09/18 14:00 04/09/18 14:00 Oxygen Flow Rate (L/min) 2 Oxygen Delivery Method Nasal Cannula Weight: 233 lb 14.567 oz Body Mass Index (BMI) 41.4 Intake and Output for Last 24 Hours 04/07/18 04/08/18 04/09/18 23:59 23:59 23:59 Intake Total 990 / 990 1180 / 1180 1170 / 1170 Balance 990 / 990 1180 / 1180 1170 / 1170 Laboratory Tests Past 24 Hrs 04/09/18 04/09/18 04/09/18 06:24 06:24 06:24 WBC 8.4 RBC 4.18 L Hgb 11.4 L Hct 35.2 L MCV 84.2 MCH 27.3 MCHC 32.4 RDW 16.8 H RDW Differential 50.8 H Plt Count 167 MPV 11.8 PT 27.0 H INR 2.5 Sodium 139 Potassium 4.1 Chloride 106 Carbon Dioxide 25.0 Anion Gap 8 BUN 24 H Creatinine 0.81 Estim Creat Clear Calc 54.22 Est GFR (MDRD) Af Amer 90 Est GFR (MDRD) Non-Af 74 BUN/Creatinine Ratio 29.6 H Glucose 134 H Calcium 8.4 L Magnesium 2.1 POC Glucose 04/09/18 04/09/18 04/09/18 16:45 11:42 06:43 POC Glucose 212 H 203 H 140 H 04/08/18 22:45 POC Glucose 181 H Medical Necessity - Tobacco Use Smoking Status: Former smoker Tobacco Use: Non-smoker Assessment/Plan All Active Problems Unstable angina (Acute) Paroxysmal atrial fibrillation with RVR (Acute) Impressions 1. NSTEMI/type II- I suspect the pain and the increased troponin are due to AF with RVR and demand ischemia. The second troponin increased to 0.095.......it peaked at 0.582 on her last admission and the stress test was negative for ischemia. 2. Coronary artery disease with history of CABG 3. Moderate aortic stenosis with history of mechanical aortic valve replacement in 1994-recent valve area 0.9 cm? 4. Hypertension 5. Morbid obesity 6. COPD 7. Diabetes mellitus type 2-not optimally controlled 8. SB with pauses - suspect due to Cardizem add to control the fast HR... ....was on Atenolol 50 mg at home when she had the RVR. She may have SSS. May need a PM. Will consult Cardiology in the AM regarding how to manage the AF with the tachy/josemanuel going forward. resolved with discontinuation of the CardiZem Start Januvia 100 mg p.o. daily Started on amiodarone 200 mg p[address] daily by Dr. Marie-we will continue to monitor heart rate for recurrence of bradycardia.... Recent TSH was normal at 0.94 Encouraged the patient to ambulate in the halls so we can see what the HR does with exertion Start Buspar 5 mg BID for anxiety.....pt denies feeling depressed but, admits to feeling very anxious. She lives with her dtr and grandchild Code Visit Inpatient E&M: 48522 Subs Hosp L2
[2018-04-09] MEDS: Atorvastatin Calcium 20 MG Tablet PO (21:09)
[2018-04-09] MEDS: Losartan Potassium 100 MG Tablet PO (21:09)
[2018-04-09] MEDS: busPIRone 5 MG Tablet PO (21:09)
[2018-04-09 21:50] LABS: Bedside Glucose 156 mg/dL (70-110)
[2018-04-10] VITALS (11 sets, daily range): BP systolic 133–153; BP diastolic 42–70; PULSE 66–74; RESP 18; TEMP 36.4–37.2; O2SAT 92–100
[2018-04-10] MEDS: glipiZIDE 10 MG Tablet PO (06:48)
[2018-04-10 06:55] LABS: Bedside Glucose 132 mg/dL (70-110)
[2018-04-10 07:11] LABS: International Normalized Ratio 2.1; Prothrombin Time (Protime)PT. 23.3 SECONDS (11.7-14.9)
[2018-04-10 07:25] LABS: Anion Gap 11 (5-15); BUN 16 mg/dL (7-18); BUN/Creat Ratio 20.7 RATIO (10-20); Calcium,Total 8.8 mg/dL (8.5-10.1); Chloride 107 mmol/L (98-107); Creatinine, Serum 0.77 mg/dL (0.55-1.02); EST Glomerular Filtration Rate 79 mL/min (>60); Est Glom Filt Rate - Afr Amer 95 mL/min (>60); Estimated Creatinine Clearance 43.92 ml/min; Glucose 139 mg/dL (74-106); Potassium 3.9 mmol/L (3.5-5.1); Sodium Level 142 mmol/L (136-145)
[2018-04-10] MEDS: Ferrous Sulfate 325 MG Tablet PO ×2 (07:56→16:40)
[2018-04-10] MEDS: Aspirin E.C. 81 MG Tablet PO (07:56)
[2018-04-10] MEDS: Amiodarone 200 MG Tablet PO (10:04)
[2018-04-10] MEDS: Loratadine 10 MG Tablet PO (10:04)
[2018-04-10] MEDS: busPIRone 5 MG Tablet PO ×2 (10:04→21:03)
[2018-04-10] MEDS: Tolterodine Tartrate 2 MG CAP.SA PO (10:05)
[2018-04-10] MEDS: Furosemide 20 MG Tablet PO (10:05)
[2018-04-10] MEDS: Pantoprazole Sodium 40 MG Tablet PO ×2 (10:05→21:04)
[2018-04-10] MEDS: LINAGLIPTIN 5 MG TABLET PO (10:05)
[2018-04-10] MEDS: Atenolol 50 MG Tablet PO (10:05)
[2018-04-10 12:01] LABS: Bedside Glucose 185 mg/dL (70-110)
[2018-04-10 16:50] LABS: Bedside Glucose 182 mg/dL (70-110)
--- NOTE | 2018-04-10 19:43 | PCM.PROGNOTE ---
Patient Problems: Active and Suspected Problems Unstable angina (Acute) Paroxysmal atrial fibrillation with RVR (Acute) Subjective: All events of the past 24 hours of been reviewed. Afebrile, vital signs stable, pulse ox 92-96% on room air Blood sugars are better today with the addition of Januvia to her drug regimen. She has experienced no bradycardia with the amiodarone initiation yesterday. She states she feels well. Her anxiety is better with the addition of BuSpar. Denies chest pain, shortness of breath, palpitations. Telemetry shows normal sinus rhythm. Objective: General: alert, oriented X3, NAD, appropriate with normal affect Neck: supple, trachea midline, carotids have brisk upstroke and normal pulse volume, no JVD, no carotid bruits Lungs: CTA, symmetric chest expansion, not tachypneic, able to lie flat with no respiratory distress Heart: Regular rate and rhythm, normal S1, normal S2, no murmur, no gallop, no rub Abdomen: soft, NT, ND, BS's present Extremities: no edema, no calf tenderness, peripheral pulses are normal, no cyanosis - Physical Exam Vital Signs Temp Pulse Resp BP Pulse Ox 97.9 F 74 18 139/63 H 92 04/10/18 16:15 04/10/18 16:15 04/10/18 16:15 04/10/18 16:15 04/10/18 16:15 Oxygen Flow Rate (L/min) 2 Oxygen Delivery Method Room Air Weight: 233 lb 14.567 oz Body Mass Index (BMI) 41.4 Intake and Output for Last 24 Hours 04/08/18 04/09/18 04/10/18 23:59 23:59 23:59 Intake Total 1180 / 1180 1270 / 1270 940 / 940 Balance 1180 / 1180 1270 / 1270 940 / 940 Laboratory Tests Past 24 Hrs 04/10/18 04/10/18 06:37 06:37 PT 23.3 H INR 2.1 Sodium 142 Potassium 3.9 Chloride 107 Carbon Dioxide 24.0 Anion Gap 11 BUN 16 Creatinine 0.77 Estim Creat Clear Calc 43.92 Est GFR (MDRD) Af Amer 95 Est GFR (MDRD) Non-Af 79 BUN/Creatinine Ratio 20.7 H Glucose 139 H Calcium 8.8 POC Glucose 12/04/10/18 04/10/18 16:36 11:55 06:47 POC Glucose 182 H 185 H 132 H 04/09/18 21:20 POC Glucose 156 H Medical Necessity - Tobacco Use Smoking Status: Former smoker Tobacco Use: Non-smoker Assessment/Plan All Active Problems Unstable angina (Acute) Paroxysmal atrial fibrillation with RVR (Acute) Impressions 1. NSTEMI/type II- I suspect the pain and the increased troponin are due to AF with RVR and demand ischemia. The second troponin increased to 0.095.......it peaked at 0.582 on her last admission and the stress test was negative for ischemia. 2. Coronary artery disease with history of CABG 3. Moderate aortic stenosis with history of mechanical aortic valve replacement in 1994-recent valve area 0.9 cm? 4. Hypertension 5. Morbid obesity 6. COPD 7. Diabetes mellitus type 2-not optimally controlled 8. SB with pauses - suspect due to Cardizem add to control the fast HR.......was on Atenolol 50 mg at home when she had the RVR. She may have SSS. May need a PM. Will consult Cardiology in the AM regarding how to manage the AF with the tachy/josemanuel going forward. resolved with discontinuation of the CardiZem Continue Homar Increase BuSpar to 3 times daily since she has had no adverse gastrointestinal effects Continue amiodarone I spent 30 minutes with the patient explaining that she likely has demand ischemia and what that means. I aslso explained that since we are not loading with Amiodarone I can not say with any certainty that she will not have any recurrent AF when she goes home. I taught her how to do a valsalva if she feels her heart start to beat faster. Probable DC in the next 24-48 hours if no AF with RVR and no significant bradycardia. Attempt to keep the potassium at 4 or greater and the magnesium at 2 or greater. Give 6 mg warfarin today rather than 3 mg and recheck the INR in the AM......would like it between 3 and 3.5 per the pt....per Dr. Cramer Code Visit Inpatient E&M: 91977 Subs Hosp L2
[2018-04-10] MEDS: Magnesium Oxide 400 MG Tablet PO (21:03)
[2018-04-10] MEDS: Losartan Potassium 100 MG Tablet PO (21:03)
[2018-04-10] MEDS: Atorvastatin Calcium 20 MG Tablet PO (21:03)
[2018-04-10 21:16] LABS: Bedside Glucose 166 mg/dL (70-110)
[2018-04-11] VITALS (10 sets, daily range): BP systolic 107–139; BP diastolic 42–69; PULSE 64–72; RESP 16–20; TEMP 36.5–37.2; O2SAT 93–96
[2018-04-11] MEDS: glipiZIDE 10 MG Tablet PO (06:44)
[2018-04-11] MEDS: busPIRone 5 MG Tablet PO ×3 (06:44→21:16)
[2018-04-11 07:06] LABS: Bedside Glucose 143 mg/dL (70-110)
[2018-04-11 07:07] LABS: Prothrombin Time (Protime)PT. 22.9 SECONDS (11.7-14.9)
[2018-04-11 07:18] LABS: Anion Gap 11 (5-15); BUN 17 mg/dL (7-18); BUN/Creat Ratio 22.8 RATIO (10-20); Calcium,Total 9.2 mg/dL (8.5-10.1); Chloride 104 mmol/L (98-107); Creatinine, Serum 0.75 mg/dL (0.55-1.02); EST Glomerular Filtration Rate 82 mL/min (>60); Est Glom Filt Rate - Afr Amer 99 mL/min (>60); Estimated Creatinine Clearance 43.92 ml/min; Glucose 143 mg/dL (74-106); Magnesium 1.9 mg/dL (1.6-2.6); Potassium 4.2 mmol/L (3.5-5.1); Sodium Level 140 mmol/L (136-145)
[2018-04-11] MEDS: Ferrous Sulfate 325 MG Tablet PO ×2 (08:08→16:34)
[2018-04-11] MEDS: Aspirin E.C. 81 MG Tablet PO (08:08)
[2018-04-11] MEDS: Magnesium Oxide 400 MG Tablet PO (08:10)
[2018-04-11] MEDS: Loratadine 10 MG Tablet PO (08:10)
[2018-04-11] MEDS: Amiodarone 200 MG Tablet PO (08:10)
[2018-04-11] MEDS: Pantoprazole Sodium 40 MG Tablet PO ×2 (08:10→21:16)
[2018-04-11] MEDS: LINAGLIPTIN 5 MG TABLET PO (08:11)
[2018-04-11] MEDS: Tolterodine Tartrate 2 MG CAP.SA PO (08:11)
[2018-04-11] MEDS: Atenolol 50 MG Tablet PO (08:11)
[2018-04-11] MEDS: Furosemide 20 MG Tablet PO (08:11)
[2018-04-11 11:31] LABS: Bedside Glucose 147 mg/dL (70-110)
--- NOTE | 2018-04-11 12:43 | PN_ITS ---
Patient Problems: Active and Suspected Problems Unstable angina (Acute) Paroxysmal atrial fibrillation with RVR (Acute) Subjective: All events of the past 24 hours been reviewed. She is afebrile and vital signs are stable. She is 95% saturated on room air. The heart rate is within normal limits. All lab was personally reviewed. The INR is only 2.0 today despite an increased dose of Coumadin yesterday. Blood sugars are well controlled. BMP is within normal limits today. States her anxiety is under control. She has no complaints today. Objective: General: alert, oriented X3, NAD, appropriate with normal affect Neck: supple, trachea midline, carotids have brisk upstroke and normal pulse volume, no JVD, no carotid bruits Lungs: CTA, symmetric chest expansion, not tachypneic, able to lie flat with no respiratory distress Heart: Regular rate and rhythm, normal S1, normal S2, no murmur, no gallop, no rub Abdomen: soft, NT, ND, BS's present Extremities: trace ankle edema, no calf tenderness, peripheral pulses are normal, no cyanosis - Physical Exam Vital Signs Temp Pulse Resp BP Pulse Ox 98.1 F 68 18 134/42 H 95 04/11/18 08:03 04/11/18 10:59 04/11/18 08:03 04/11/18 08:03 04/11/18 08:03 Oxygen Flow Rate (L/min) 2 Oxygen Delivery Method Room Air Weight: 233 lb 14.567 oz Body Mass Index (BMI) 41.4 Intake and Output for Last 24 Hours 04/09/18 04/10/18 04/11/18 23:59 23:59 23:59 Intake Total 1270 / 1270 1240 / 1240 500 / 500 Balance 1270 / 1270 1240 / 1240 500 / 500 Laboratory Tests Past 24 Hrs 04/11/18 04/11/18 06:31 06:31 PT 22.9 H INR 2.0 Sodium 140 Potassium 4.2 Chloride 104 Carbon Dioxide 25.0 Anion Gap 11 BUN 17 Creatinine 0.75 Estim Creat Clear Calc 43.92 Est GFR (MDRD) Af Amer 99 Est GFR (MDRD) Non-Af 82 BUN/Creatinine Ratio 22.8 H Glucose 143 H Calcium 9.2 Magnesium 1.9 POC Glucose 04/11/18 04/11/18 04/10/18 11:22 06:47 21:01 POC Glucose 147 H 143 H 166 H 04/10/18 16:36 POC Glucose 182 H Medical Necessity - Tobacco Use Smoking Status: Former smoker Tobacco Use: Non-smoker Assessment/Plan All Active Problems Unstable angina (Acute) Paroxysmal atrial fibrillation with RVR (Acute) Impressions 1. NSTEMI/type II- I suspect the pain and the increased troponin are due to AF with RVR and demand ischemia. The second troponin increased to 0.095.......it peaked at 0.582 on her last admission and the stress test was negative for ischemia. 2. Coronary artery disease with history of CABG 3. Moderate aortic stenosis with history of mechanical aortic valve replacement in 1994-recent valve area 0.9 cm? 4. Hypertension 5. Morbid obesity 6. COPD 7. Diabetes mellitus type 2-not optimally controlled 8. SB with pauses - suspect due to Cardizem add to control the fast HR....... was on Atenolol 50 mg at home when she had the RVR. She may have SSS. May need a PM. Will consult Cardiology in the AM regarding how to manage the AF with the tachy/josemanuel going forward. resolved with discontinuation of the CardiZem 9. Subtherapeutic INR Start the patient on a heparin infusion with no bolus 9 mg of Coumadin today Recheck INR in the a.m. Discharge when the INR is greater than 2.5 and closer to 3. Continue amiodarone Code Visit Inpatient E&M: [id number] [facility] [[email or web address]] Hosp L2
--- NOTE | 2018-04-11 12:43 | CASEMGMT ---
Per RN-CM, patient may D/C with correction and will need referral placed, no preference of agency. Call placed to Laurita at [facility], Laurita will review patient and see if patient can be accepted. STEFFI Gregory-CM aware. Dana Ramey LPN Clinical Support
[2018-04-11 13:24] LABS: Absolute Lymphocyte Count 1.38 X10^3/ul (0.83-4.51); Absolute Neutrophil Count 4.8 X10^3/uL (2.0-7.7); Basophil# 0.07 X10^3/uL; Eosinophil# 0.28 X10^3/uL; Eosinophils% 3.9 % (0-5); Hematocrit 37.2 % (37-47); Hemoglobin 12.1 g/dl (12.0-15.0); Lymphocyte # 1.38 X10^3/ul (4.0); Lymphocyte % 19.1 % (19-41); Mean Corp Hgb Conc 32.5 g/gl (32-36); Mean Corpuscular Hgb 27.3 pg (27.0-32.0); Mean Corpuscular Volume 83.8 fL (81-99); Mean Platelet Vol. 11.5 fl (6.2-12.0); Monocyte# 0.68 X10^3/uL; Monocyte% 9.4 % (0-10); Neutrophil # 4.78 X10^3/uL (2.7-7.7); Neutrophil % 66.2 % (47-70); POSITIVE COUNT NO; POSITIVE DIFFERENTIAL NO; POSITIVE MORPHOLOGY NO; Platelet Count 168 K/mm3 (150-450); RBC Distribution Width CV 16.2 % (11.6-14.6); RBC Distribution Width SD 48.4 fl (35.1-43.9); Red Blood Count 4.44 M/mm3 (4.2-5.4); White Blood Count 7.2 K/mm3 (4.4-11.0)
--- NOTE | 2018-04-11 13:40 | CASEMGMT ---
STEFFI PARNELL ASSESSMENT Face to Face with patient for initial transition planning/care coordination assessment. STEFFI PARNELL introduced self and role at [facility]. Pt voices understanding and consents to assessment at this time. Pt sitting up in chair, in no distress at this time. Pt is A/O at this time and answers all questions appropriately. Care providers, pharmacy, and demographics verified/updated at this time. PCP: Vera Specialists: Oncologist @ [facility], Cardiology: Moo Cramer. Preferred Pharmacy: [facility]. Insurance: [employer] Prescription Benefit: Yes Living Will/HPOA: does not have LW or HCPOA . Interested in more information and stats would like to talk to SW. Provided information on advanced directives and SW, Lucy, made aware pt would like to talk with her. LNOK: Daughter and son Living Arrangements: Lives in 2 story home w/2 steps to enter. has everything set up on main floor and the 2nd floor is an attic. does have laundry in basement but her daughter does her laundry for her so she does not go down the stairs. She states she is independent with all personal ADL's, medications, finances, and home mgmt tasks, stating she does all light-duty chores, except for the heavy chores..my daughter does those for me. Pt states her 14-yr-old great granddaughter lives with her and that she has custody of her. Transportation: Pt is able to drive but that she does not get out much. States her car is broken down currently and that she does have 2 sisters that may be available to help with transportation if needed. Pt provided with [facility] van transportation information. DME: has the following DME: hand-held shower, nebulizer. has not used the nebulizer for a long time. Pt is interested in information on medical alert button. Information given to pt. Pt also is planning on getting a shower chair, stating she already has a script for one from her PCP. Pt wishes to return home. would like to have [facility] fdc for teaching re: a-fib and new medications. Referral made with WAQAS Shay, @ [facility]. Pt does not smoke or drink ETOH. CM to follow for any further discharge planning/needs. Pt voices no further concerns/needs at this time. Advised pt to ask for CM if any further questions/concerns/needs arise. Voices understanding. Plan: Home with HHC: fdc. Adeel REYESN RN CM
[2018-04-11 13:41] LABS: Partial Thromboplast Time 45.4 Seconds (24.1-36.2)
[2018-04-11] MEDS: HEPARIN/D5w 25,000 UNITS 25,000 UNITS/250 ML IV.SOLN. 15 UNITS IV (14:17)
[2018-04-11] MEDS: 0.9% NaCl Peripheral Flush Adult/Peds IV (14:21)
--- NOTE | 2018-04-11 16:15 | CASEMGMT ---
Social Work Received referral from STEFFI Gregory that pt would like information on advance directives. SW met with pt in room and discussed AD. SW explained HCPOA and Living Will as well as difference between living will and DNR. Pt with many questions which were answered. Pt would like to complete both HCPOA and Living Will but would like to speak with her daughter this evening prior to completing documents tomorrow. SW will followup to assist with document completion. KATHARINE Somers
[2018-04-11 17:00] LABS: Bedside Glucose 151 mg/dL (70-110)
[2018-04-11 21:08] LABS: Partial Thromboplast Time 83.5 Seconds (24.1-36.2)
[2018-04-11] MEDS: Atorvastatin Calcium 20 MG Tablet PO (21:16)
[2018-04-11] MEDS: Losartan Potassium 100 MG Tablet PO (21:16)
[2018-04-11 21:40] LABS: Bedside Glucose 120 mg/dL (70-110)
[2018-04-12] VITALS (10 sets, daily range): BP systolic 119–152; BP diastolic 39–70; PULSE 64–80; RESP 14–20; TEMP 36.4–36.9; O2SAT 94–97
[2018-04-12 03:29] LABS: Absolute Lymphocyte Count 1.73 X10^3/ul (0.83-4.51); Absolute Neutrophil Count 3.8 X10^3/uL (2.0-7.7); Basophil# 0.06 X10^3/uL; Eosinophil# 0.27 X10^3/uL; Eosinophils% 4.3 % (0-5); Hematocrit 36.6 % (37-47); Hemoglobin 12.2 g/dl (12.0-15.0); Lymphocyte # 1.73 X10^3/ul (4.0); Lymphocyte % 27.6 % (19-41); Mean Corp Hgb Conc 33.3 g/gl (32-36); Mean Corpuscular Hgb 27.7 pg (27.0-32.0); Mean Corpuscular Volume 83.2 fL (81-99); Monocyte# 0.42 X10^3/uL; Monocyte% 6.7 % (0-10); Neutrophil # 3.76 X10^3/uL (2.7-7.7); Neutrophil % 59.9 % (47-70); POSITIVE COUNT NO; POSITIVE DIFFERENTIAL NO; POSITIVE MORPHOLOGY NO; Platelet Count 161 K/mm3 (150-450); RBC Distribution Width CV 16.3 % (11.6-14.6); RBC Distribution Width SD 48.5 fl (35.1-43.9); White Blood Count 6.3 K/mm3 (4.4-11.0)
[2018-04-12 03:43] LABS: International Normalized Ratio 2.1; Prothrombin Time (Protime)PT. 23.8 SECONDS (11.7-14.9)
[2018-04-12 03:52] LABS: Partial Thromboplast Time 90.1 Seconds (24.1-36.2)
[2018-04-12] MEDS: HEPARIN/D5w 25,000 UNITS 25,000 UNITS/250 ML IV.SOLN. 13 UNITS IV (04:12)
[2018-04-12] MEDS: busPIRone 5 MG Tablet PO ×3 (06:14→22:55)
[2018-04-12 07:01] LABS: Bedside Glucose 135 mg/dL (70-110)
[2018-04-12] MEDS: Pantoprazole Sodium 40 MG Tablet PO ×2 (08:51→22:54)
[2018-04-12] MEDS: Atenolol 50 MG Tablet PO (08:51)
[2018-04-12] MEDS: glipiZIDE 10 MG Tablet PO (08:51)
[2018-04-12] MEDS: Aspirin E.C. 81 MG Tablet PO (08:52)
[2018-04-12] MEDS: Ferrous Sulfate 325 MG Tablet PO ×2 (08:52→17:01)
[2018-04-12] MEDS: LINAGLIPTIN 5 MG TABLET PO (08:52)
[2018-04-12] MEDS: Loratadine 10 MG Tablet PO (08:52)
[2018-04-12] MEDS: Magnesium Oxide 400 MG Tablet PO (08:52)
[2018-04-12] MEDS: Furosemide 20 MG Tablet PO (08:53)
[2018-04-12] MEDS: Amiodarone 200 MG Tablet PO (08:53)
[2018-04-12] MEDS: Tolterodine Tartrate 2 MG CAP.SA PO (08:53)
[2018-04-12 10:37] LABS: Partial Thromboplast Time 82.5 Seconds (24.1-36.2)
--- NOTE | 2018-04-12 11:05 | CASEMGMT ---
Pt is not homebound and therefore, does not qualify for HHC at this time. Pt is aware and agrees to same at this time. Pt does agree to CCN referral at this time. Laurita from [facility] HHC is aware at this time. HHC order is cancelled at this time. Pt does state she would like to complete AD with SW while she is here. E.Mercedes ROGEL aware at this time, voices understanding. Sis KAPADIA CM
[2018-04-12 11:50] LABS: Bedside Glucose 177 mg/dL (70-110)
--- NOTE | 2018-04-12 13:21 | CASEMGMT ---
Social Work: Referral for SW to speak with patient about advance directives. Met with patient in room. Patient verbalizing desire to complete AD documents. Spent time with patient explaining the documents. This social services director assisted patient with filling out documents. Documents completed, signed, witnessed, copies given to patient and copy put in patient's current chart. YOSEPH Garza
[2018-04-12 16:10] LABS: Partial Thromboplast Time 70.8 Seconds (24.1-36.2)
[2018-04-12 16:51] LABS: Bedside Glucose 154 mg/dL (70-110)
--- NOTE | 2018-04-12 16:52 | PN_ITS ---
Patient Problems: Active and Suspected Problems Unstable angina (Acute) Paroxysmal atrial fibrillation with RVR (Acute) Subjective: All events of the past 24 hours have been reviewed. Telemetry shows normal sinus rhythm with no recurrence of atrial fibrillation. She denies chest pain, shortness of breath, lightheadedness. She states that her anxiety is much improved. INR was checked at 320 this a.m. and it was still only 2.1. She remains on a heparin infusion. Blood sugars are well controlled - Physical Exam General: Alert, Oriented x3, Cooperative Lungs: Clear to auscultation Cardiovascular: Regular rate, Regular Rhythm, Normal S1, Normal S2, No Gallop Abdomen: Bowel Sounds Present, Soft, Non Tender Extremities: No edema Psych/Mental Status: Normal Affect, Appropriate Vital Signs Temp Pulse Resp BP Pulse Ox 97.9 F 76 18 119/70 95 04/12/18 14:37 04/12/18 14:59 04/12/18 14:37 04/12/18 14:37 04/12/18 14:37 Oxygen Flow Rate (L/min) 2 Oxygen Delivery Method Room Air Weight: 233 lb 14.567 oz Body Mass Index (BMI) 41.4 Intake and Output for Last 24 Hours 04/10/18 04/11/18 04/12/18 23:59 23:59 23:59 Intake Total 1240 / 1240 1643.8 / 1643.8 640 / 640 Balance 1240 / 1240 1643.8 / 1643.8 640 / 640 Laboratory Tests Past 24 Hrs 04/11/18 04/12/18 04/12/18 20:22 03:20 03:20 WBC 6.3 RBC 4.40 Hgb 12.2 Hct 36.6 L MCV 83.2 MCH 27.7 MCHC 33.3 RDW 16.3 H RDW Differential 48.5 H Plt Count 161 MPV 11.0 Immature Gran % (Auto) 0.500 Neut % (Auto) 59.9 Lymph % (Auto) 27.6 [place] % (Auto) 6.7 Eos % (Auto) 4.3 Baso % (Auto) 1.0 Absolute Neuts (auto) 3.8 Absolute Lymphs (auto) 1.73 Total Counted Not Reportable PT 23.8 H INR 2.1 APTT 83.5 H 04/12/18 04/12/18 04/12/18 03:20 10:02 15:48 WBC RBC Hgb Hct MCV MCH MCHC RDW RDW Differential Plt Count MPV Immature Gran % (Auto) Neut % (Auto) Lymph % (Auto) [place] % (Auto) Eos % (Auto) Baso % (Auto) Absolute Neuts (auto) Absolute Lymphs (auto) Total Counted PT INR APTT 90.1 H* 82.5 H 70.8 H POC Glucose 04/12/18 04/12/18 04/11/18 11:36 06:55 21:19 POC Glucose 177 H 135 H 120 H 04/11/18 16:29 POC Glucose 151 H Medical Necessity - Tobacco Use Smoking Status: Former smoker Tobacco Use: Non-smoker Assessment/Plan All Active Problems Unstable angina (Acute) Paroxysmal atrial fibrillation with RVR (Acute) Impressions 1. NSTEMI/type II- I suspect the pain and the increased troponin are due to AF with RVR and demand ischemia. The second troponin increased to 0.095.......it peaked at 0.582 on her last admission and the stress test was negative for ischemia. 2. Coronary artery disease with history of CABG 3. Moderate aortic stenosis with history of mechanical aortic valve replacement in 1994-recent valve area 0.9 cm? 4. Hypertension 5. Morbid obesity 6. COPD 7. Diabetes mellitus type 2-not optimally controlled 8. SB with pauses - suspect due to Cardizem add to control the fast HR.......was on Atenolol 50 mg at home when she had the RVR. She may have SSS. May need a PM. Will consult Cardiology in the AM regarding how to manage the AF with the tachy/josemanuel going forward. resolved with discontinuation of the CardiZem 9. Subtherapeutic INR Give 9 mg of Coumadin again today Recheck PT/INR in the a.m. Discharge when the INR is 2.5 or greater Code Visit Inpatient E&M: [id number] [facility] Hosp L1
[2018-04-12] MEDS: Atorvastatin Calcium 20 MG Tablet PO (22:54)
[2018-04-12] MEDS: Losartan Potassium 100 MG Tablet PO (22:54)
[2018-04-12] MEDS: HEPARIN/D5w 25,000 UNITS 25,000 UNITS/250 ML IV.SOLN. 15 UNITS IV (22:55)
[2018-04-12 23:15] LABS: Partial Thromboplast Time 77.4 Seconds (24.1-36.2)
[2018-04-13] VITALS (7 sets, daily range): BP systolic 134–147; BP diastolic 54–65; PULSE 67–79; RESP 15–18; TEMP 36.2–36.8; O2SAT 94–96
[2018-04-13 00:21] LABS: Bedside Glucose 153 mg/dL (70-110)
[2018-04-13] MEDS: busPIRone 5 MG Tablet PO ×2 (06:31→15:12)
[2018-04-13] MEDS: glipiZIDE 10 MG Tablet PO (06:32)
[2018-04-13 06:51] LABS: Bedside Glucose 145 mg/dL (70-110)
[2018-04-13 07:03] LABS: Absolute Lymphocyte Count 1.64 X10^3/ul (0.83-4.51); Absolute Neutrophil Count 3.1 X10^3/uL (2.0-7.7); Basophil# 0.05 X10^3/uL; Basophil% 0.9 % (0-1); Eosinophil# 0.21 X10^3/uL; Eosinophils% 3.8 % (0-5); Hematocrit 37.1 % (37-47); Hemoglobin 11.8 g/dl (12.0-15.0); Lymphocyte # 1.64 X10^3/ul (4.0); Lymphocyte % 29.9 % (19-41); Mean Corp Hgb Conc 31.8 g/gl (32-36); Mean Corpuscular Hgb 26.3 pg (27.0-32.0); Mean Corpuscular Volume 82.8 fL (81-99); Mean Platelet Vol. 10.6 fl (6.2-12.0); Monocyte# 0.46 X10^3/uL; Monocyte% 8.4 % (0-10); Neutrophil # 3.12 X10^3/uL (2.7-7.7); Neutrophil % 56.8 % (47-70); Platelet Count 161 K/mm3 (150-450); RBC Distribution Width CV 16.3 % (11.6-14.6); RBC Distribution Width SD 49.3 fl (35.1-43.9); Red Blood Count 4.48 M/mm3 (4.2-5.4); White Blood Count 5.5 K/mm3 (4.4-11.0)
[2018-04-13 07:05] LABS: POSITIVE COUNT NO; POSITIVE DIFFERENTIAL NO; POSITIVE MORPHOLOGY NO
[2018-04-13 07:22] LABS: International Normalized Ratio 2.7; Prothrombin Time (Protime)PT. 28.9 SECONDS (11.7-14.9)
[2018-04-13 07:26] LABS: Partial Thromboplast Time 90.4 Seconds (24.1-36.2)
[2018-04-13] MEDS: Aspirin E.C. 81 MG Tablet PO (09:55)
[2018-04-13] MEDS: Ferrous Sulfate 325 MG Tablet PO ×2 (09:55→16:46)
[2018-04-13] MEDS: Amiodarone 200 MG Tablet PO (09:56)
[2018-04-13] MEDS: Pantoprazole Sodium 40 MG Tablet PO (09:56)
[2018-04-13] MEDS: Tolterodine Tartrate 2 MG CAP.SA PO (09:56)
[2018-04-13] MEDS: Furosemide 20 MG Tablet PO (09:56)
[2018-04-13] MEDS: Loratadine 10 MG Tablet PO (09:56)
[2018-04-13] MEDS: Magnesium Oxide 400 MG Tablet PO (09:56)
[2018-04-13] MEDS: Atenolol 50 MG Tablet PO (09:57)
[2018-04-13] MEDS: LINAGLIPTIN 5 MG TABLET PO (09:57)
--- NOTE | 2018-04-13 15:38 | DCINST_ITS ---
- Discharge Diagnoses Current Active Problems: Current Active and Chronic Problems Morbid obesity (Chronic) Unstable angina (Acute) Paroxysmal atrial fibrillation with RVR (Acute) H/O prosthetic aortic valve replacement (Chronic) 1994 You will use the following diet at home:: Calorie/Carbohydrate Controlled (specify 1200, 1400, etc), Cardiac Your food should be the consistency of: Regular Your liquids should be the consistency of: Regular/Thin Discharge Activity: Return to Normal Activity Call your doctor if you observe: Fever of 101 or Higher, Shortness of breath, Dizziness, Fainting spells, Swelling in the ankles, Chest pain Additional Instructions: 1. I have given you a prescription for a medication called Sharon. It is for anxiety and you have been taking it in the hospital wi th good results. You will take it three times a day with meals. 2. You are being discharged on the antiarrhythmic Amiodarone and you will take this medication once a day. 3. To prevent atrial fibrillation it is important to keep the potassium around 4 and the magnesium around 2. I have given you prescriptions for both potassium and magnesium. You can follow up with Dr. Gamez in 7-10 days to have your lab rechecked. Allergies/Adverse Reactions: Allergies adhesive Allergy (Verified 03/26/18 15:02) Rash fluticasone propionate [From Advair Diskus] Allergy (Verified 03/26/18 17:00) chest pain gabapentin [From Neurontin] Allergy (Verified 03/26/18 17:00) Swelling of feet and legs salmeterol xinafoate [From Advair Diskus] Allergy (Verified 03/26/18 17:00) chest pains albuterol [From Ventolin HFA] Adverse Reaction (Verified 03/26/18 17:00) jittery TOO JITTERY cephalexin monohydrate [From Keflex] Adverse Reaction (Verified 03/26/18 17:00) abdominal cramping pregabalin Adverse Reaction (Verified 03/26/18 17:00) makes me slow to respond Medications to take at Discharge Aspirin [Aspirin EC] 81 mg PO DAILY 10/23/16 Furosemide [Lasix] 20 mg PO DAILY 10/23/16 Lansoprazole [Prevacid] 30 mg PO BID 10/23/16 Loratadine 10 mg PO DAILY 10/23/16 Losartan Potassium [Cozaar] 100 mg PO QHS 10/23/16 Metformin(XR) [Glucophage Xr] 1,000 mg PO BID 10/23/16 Polyethylene Glycol 3350 17 gm PO DAILY PRN 10/23/16 Warfarin [Coumadin] 6 mg PO SUMOWEFRSA 10/23/16 glipiZIDE [Glucotrol] 10 mg PO DAILY@0730 10/23/16 Albuterol Sulfate [Ventolin Hfa] 2 puff INHALATION Q4H PRN 03/26/18 Atorvastatin Calcium [Lipitor] 20 mg PO QHS 03/26/18 Ferrous Sulfate 325 mg PO BIDCM 03/26/18 Meclizine HCl [Antivert] 25 mg PO TID PRN PRN 03/26/18 Mupirocin [Bactroban] 1 applicatio NASAL TID PRN 03/26/18 Nitroglycerin [Nitrostat] 0.4 mg SUBLINGUAL Q5M PRN 03/26/18 Nystatin 1 applicatio TP BID PRN 03/26/18 Oxybutynin Chloride [Ditropan Xl] 10 mg PO DAILY 03/26/18 Tizanidine HCl 4 mg PO QHS PRN 03/26/18 Warfarin Sodium 3 mg PO TUTH 03/26/18 Amlodipine [Norvasc] 10 mg PO DAILY #30 tablet 03/28/18 Atenolol [Tenormin (beta yi)] 50 mg PO DAILY #30 tablet 03/28/18 Isosorbide Mononitrate [Imdur] 120 mg PO DAILY #30 tablet 03/28/18 Amiodarone HCl [Cordarone] 200 mg PO DAILY #30 tablet 04/13/18 Linagliptin [Tradjenta] 5 mg PO DAILY #30 tablet 04/13/18 Magnesium Oxide [Mag-Ox 400] 400 mg PO DAILYCM #30 tablet 04/13/18 Potassium Chloride [K-Dur] 20 meq PO DAILYCM #30 tablet 04/13/18 busPIRone [Buspar] 5 mg PO TID #90 tablet 04/13/18 The following prescriptions were given: Amiodarone HCl [Cordarone] 200 mg PO DAILY #30 tablet Linagliptin [Tradjenta] 5 mg PO DAILY #30 tablet Magnesium Oxide [Mag-Ox 400] 400 mg PO DAILYCM #30 tablet Potassium Chloride [K-Dur] 20 meq PO DAILYCM #30 tablet busPIRone [Buspar] 5 mg PO TID #90 tablet Primary Care Physician: Collin Gamez MD [Primary Care Provider] - Please follow up with your Primary Care Physician in: 7-10 days Test Results: Test results from this visit will be discussed in further detail at your follow- up appointment, if applicable. Please Follow Up With: Wade Cramer MD When: call the office for an appt Proposed Discharge Date: 04/13/18
--- NOTE | 2018-04-13 15:56 | DS.PCM_ITS ---
Discharge Date and Diagnosis - Problem List Patient Problems: Active and Suspected Problems Anxiety about health (Acute) Subtherapeutic international normalized ratio (INR) (Acute) Sinus bradycardia (Acute) Paroxysmal atrial fibrillation with RVR (Acute) Date of Admission: 04/07/18 Date of Discharge: 04/13/18 - Primary Discharge Diagnosis Active and Suspected Problems Paroxysmal atrial fibrillation with RVR (Acute) NSTEMI - type II Anxiety about health (Acute) Subtherapeutic international normalized ratio (INR) (Acute) Sinus bradycardia (Acute) with pauses due to Cardizem intolerance - Secondary Discharge Diagnosis Chronic Problems Moderate aortic stenosis (Chronic) Morbid obesity (Chronic) H/O prosthetic aortic valve replacement (Chronic) 1994 CAD (coronary artery disease) (Chronic) Hx of CABG (Chronic) Type 2 diabetes mellitus (Chronic) Hypertension (Chronic) Chronic obstructive lung disease (Chronic) Hospital Course and Treatment Imaging Results: Clinical Impression(s) from Imaging Studies Chest X-Ray 04/07/18 05:47 IMPRESSION: 1. No acute disease or significant change. Xi 2. Postsurgical changes, as above. at 0618 Reported and signed by: Kleber Baig MD Electronically Signed: Kleber Baig, at 6:16 EST Tel , Service support , Laboratory Results - last 24 hr 04/12/18 04/12/18 04/12/18 15:48 16:25 22:06 WBC RBC Hgb Hct MCV MCH MCHC RDW RDW Differential Plt Count MPV Immature Gran % (Auto) Neut % (Auto) Lymph % (Auto) [place] % (Auto) Eos % (Auto) Baso % (Auto) Absolute Neuts (auto) Absolute Lymphs (auto) Total Counted PT INR APTT 70.8 H 77.4 H POC Glucose 154 H 04/12/18 04/13/18 04/13/18 23:01 06:25 06:25 WBC 5.5 RBC 4.48 Hgb 11.8 L Hct 37.1 MCV 82.8 MCH 26.3 L MCHC 31.8 L RDW 16.3 H RDW Differential 49.3 H Plt Count 161 MPV 10.6 Immature Gran % (Auto) 0.200 Neut % (Auto) 56.8 Lymph % (Auto) 29.9 [place] % (Auto) 8.4 Eos % (Auto) 3.8 Baso % (Auto) 0.9 Absolute Neuts (auto) 3.1 Absolute Lymphs (auto) 1.64 Total Counted Not Reportable PT 28.9 H INR 2.7 APTT 90.4 H* POC Glucose 153 H 04/13/18 04/13/18 06:34 13:31 WBC RBC Hgb Hct MCV MCH MCHC RDW RDW Differential Plt Count MPV Immature Gran % (Auto) Neut % (Auto) Lymph % (Auto) [place] % (Auto) Eos % (Auto) Baso % (Auto) Absolute Neuts (auto) Absolute Lymphs (auto) Total Counted PT INR APTT 75.0 H POC Glucose [address] [facility] cardiology Operations: None Procedures: None Summary of Care Provided: The patient is a 68 year old F with a past medical history of coronary artery disease, CABG, prosthetic aortic valve replacement in 1994, moderate aortic stenosis currently, hypertension, morbid obesity, diabetes mellitus type 2, COPD and morbid obesity who presented to the emergency department at [facility] on 04/07/2018 complaining of sudden onset of racing heart/palpitations and substernal chest pain. The palpitations and racing heart came first and then she got chest pain. EKG in the emergency room revealed atrial fibrillation with rapid ventricular response. She was treated with 5 mg of metoprolol and her heart rate improved. She was admitted to a monitored bed on PCU. The initial troponin was less than 0.015 but the second troponin was 0.041 and the third troponin was 0.095. The chest pain resolved with control of the heart rate. She was started on Cardizem CD 120 mg and unfortunately had symptomatic bradycardia with pauses. Cardizem was discontinued and she was started on amiodarone 200 mg p.o. daily. She was also started on a potassium supplement to keep her K at 4 or greater and a magnesium supplement to keep her magnesium at at least 2. She had no recurrence of atrial fibrillation for the remainder of her hospital stay. She was quite anxious about having to be readmitted for AF with RVR after just recently being in the hospital for the same thing. She was started on Buspar and her anxiety is much better. Her HGBA1C is 8.3 and the blood sugars were mildly elevated in the hospital. She was started on Tradjenta 5 mg daily and the blood sugars were well controlled at NM. She was discharged on 04/13/2018 with prescriptions for Amiodarone 200 mg p.o. daily, BuSpar 5 mg p.o. 3 times daily, Tradjenta 5 mg daily, potassium chloride 20 mEq daily and magnesium oxide 400 mg daily. She will follow-up with Dr. Gamez in the office in 7-10 days and should have a BMP and magnesium drawn at that time. She will call Dr. Cramer's office to schedule an appt for follow up. INR on the day of DC was 2.7 and she is going to resume her regular Warfarin dosage. It was supratherapeutic initially and Coumadin was held and then The INR dropped to 2.1 and heparin was initiated until the INR dayanara to >2.5. PHYSICAL EXAM: GENERAL: alert, oriented X 3, Cooperative, NAD ORAL: moist mucosa, no mucosal lesions NECK: No JVD, supple, trachea midline LUNGS: CTA, symmetric chest expansion HEART: RRR, Normal S1 and S2, no rub, no gallop ABDOMEN: soft, NT, ND, BS present, no guarding with palpation, obese EXTREMITIES: no edema, no cyanosis, no calf tenderness SKIN: No rashes, no breakdown NEUROLOGIC: no focal neurologic deficits PSYCH: appropriate, normal affect, pleasant This note was generated with [employer] dictation software. It may contain incorrect words, spelling, and punctuation that were not noted in checking the note before signing. Patient Problems: Active and Suspected Problems Anxiety about health (Acute) Subtherapeutic international normalized ratio (INR) (Acute) Sinus bradycardia (Acute) Paroxysmal atrial fibrillation with RVR (Acute) - Physical Exam Vital Signs Temp Pulse Resp BP Pulse Ox 97.2 F L 69 16 134/54 H 96 04/13/18 15:32 04/13/18 15:32 04/13/18 15:32 04/13/18 15:32 04/13/18 15:32 Oxygen Flow Rate (L/min) 2 Oxygen Delivery Method Room Air Weight: 233 lb 14.567 oz Body Mass Index (BMI) 41.4 Intake and Output for Last 24 Hours 04/11/18 04/12/18 04/13/18 23:59 23:59 23:59 Intake Total 1643.8 / 1643.8 1167 / 1167 1198 / 1198 Balance 1643.8 / 1643.8 1167 / 1167 1198 / 1198 Laboratory Tests Past 24 Hrs 04/12/18 04/12/18 04/13/18 15:48 22:06 06:25 WBC RBC Hgb Hct MCV MCH MCHC RDW RDW Differential Plt Count MPV Immature Gran % (Auto) Neut % (Auto) Lymph % (Auto) [place] % (Auto) Eos % (Auto) Baso % (Auto) Absolute Neuts (auto) Absolute Lymphs (auto) Total Counted PT 28.9 H INR 2.7 APTT 70.8 H 77.4 H 90.4 H* 04/13/18 04/13/18 06:25 13:31 WBC 5.5 RBC 4.48 Hgb 11.8 L Hct 37.1 MCV 82.8 MCH 26.3 L MCHC 31.8 L RDW 16.3 H RDW Differential 49.3 H Plt Count 161 MPV 10.6 Immature Gran % (Auto) 0.200 Neut % (Auto) 56.8 Lymph % (Auto) 29.9 [place] % (Auto) 8.4 Eos % (Auto) 3.8 Baso % (Auto) 0.9 Absolute Neuts (auto) 3.1 Absolute Lymphs (auto) 1.64 Total Counted Not Reportable PT INR APTT 75.0 H POC Glucose 04/13/18 04/12/18 04/12/18 06:34 23:01 16:25 POC Glucose 145 H 153 H 154 H Discharge Activity: Return to Normal Activity Call your doctor if you observe: Fever of 101 or Higher, Shortness of breath, Dizziness, Fainting spells, Swelling in the ankles, Chest pain Home Medications: Medications to take at Discharge Aspirin [Aspirin EC] 81 mg PO DAILY 10/23/16 Furosemide [Lasix] 20 mg PO DAILY 10/23/16 Lansoprazole [Prevacid] 30 mg PO BID 10/23/16 Loratadine 10 mg PO DAILY 10/23/16 Losartan Potassium [Cozaar] 100 mg PO QHS 10/23/16 Metformin(XR) [Glucophage Xr] 1,000 mg PO BID 10/23/16 Polyethylene Glycol 3350 17 gm PO DAILY PRN 10/23/16 Warfarin [Coumadin] 6 mg PO SUMOWEFRSA 10/23/16 glipiZIDE [Glucotrol] 10 mg PO DAILY@0730 10/23/16 Albuterol Sulfate [Ventolin Hfa] 2 puff INHALATION Q4H PRN 03/26/18 Atorvastatin Calcium [Lipitor] 20 mg PO QHS 03/26/18 Ferrous Sulfate 325 mg PO BIDCM 03/26/18 Meclizine HCl [Antivert] 25 mg PO TID PRN PRN 03/26/18 Mupirocin [Bactroban] 1 applicatio NASAL TID PRN 03/26/18 Nitroglycerin [Nitrostat] 0.4 mg SUBLINGUAL Q5M PRN 03/26/18 Nystatin 1 applicatio TP BID PRN 03/26/18 Oxybutynin Chloride [Ditropan Xl] 10 mg PO DAILY 03/26/18 Tizanidine HCl 4 mg PO QHS PRN 03/26/18 Warfarin Sodium 3 mg PO TUTH 03/26/18 Amlodipine [Norvasc] 10 mg PO DAILY #30 tablet 03/28/18 Atenolol [Tenormin (beta arie)] 50 mg PO DAILY #30 tablet 03/28/18 Isosorbide Mononitrate [Imdur] 120 mg PO DAILY #30 tablet 03/28/18 Amiodarone HCl [Cordarone] 200 mg PO DAILY #30 tablet 04/13/18 Linagliptin [Tradjenta] 5 mg PO DAILY #30 tablet 04/13/18 Magnesium Oxide [Mag-Ox 400] 400 mg PO DAILYCM #30 tablet 04/13/18 Potassium Chloride [K-Dur] 20 meq PO DAILYCM #30 tablet 04/13/18 busPIRone [Buspar] 5 mg PO TID #90 tablet 04/13/18 Following Prescrptions Were Given to Patient: Amiodarone HCl [Cordarone] 200 mg PO DAILY #30 tablet Linagliptin [Tradjenta] 5 mg PO DAILY #30 tablet Magnesium Oxide [Mag-Ox 400] 400 mg PO DAILYCM #30 tablet Potassium Chloride [K-Dur] 20 meq PO DAILYCM #30 tablet busPIRone [Buspar] 5 mg PO TID #90 tablet Primary Care Physician: Collin Gamez MD [Primary Care Provider] - Please follow up with your Primary Care Physician in: 7-10 days Please Follow Up With: Wade Cramer MD When: call the office for an appt Disposition: Home Minutes spent on discharge:: 38 Patient Condition:: Good Medical Necessity - Tobacco Use Smoking Status: Former smoker Tobacco Use: Non-smoker Meaningful Use Info Meaningful Use Diagnoses (Choose all that apply): AMI - AMI Aspirin given w/in 24hrs of arrival?: Yes ASA at discharge?: Yes Statins at discharge?: Yes Malik/ARB at discharge?: Yes Beta Arie at discharge?: Yes Done w/ Acute AK measure.: Yes Code Visit Inpatient E&M: [id number] [facility]
--- NOTE | 2018-04-16 14:27 | CASEMGMT ---
STEFFI CM DC Phone Call DC Date: 04/13/18 DC Disposition: Home Attempted call, home phone not operating. Unable to leave message. Kevin REYESN RN ACM
--- OUTSIDE RECORDS SUMMARY | 2018-07-11 08:12 | XMS RPT_ITS ---
:1950 Author Organization OHIP Support Name Relationship Address Phone BEAR ALMANZAR Unavailable [address] + [address] [place] [id number] R Unavailable Unavailable Unavailable CASE, LACI Unavailable [address] + [place] [address] BEAR ALMANZAR Unavailable [address] + [address] [place] [address] R Unavailable Unavailable Unavailable CASE, LACI Unavailable [address] + [place] [address] BEAR ALMANZAR Unavailable [address] + [address] [place] [address] R Unavailable Unavailable Unavailable CASE, LACI Unavailable [address] + [place] [address] BEAR ALMANZAR Unavailable [address] + [address] [place] [address] R Unavailable Unavailable Unavailable CASE, LACI Unavailable [address] + [place] [address] BEAR ALMANZAR Unavailable [address] + [address] [place] [address] R Unavailable Unavailable Unavailable CASE, LACI Unavailable [address] + [place] [address] BEAR ALMANZAR Unavailable [address] + [address] [place] [address] R Unavailable Unavailable Unavailable CASE, LACI Unavailable [address] + [place] [address] BEAR ALMANZAR Unavailable [address] + [address] [place] [address] R Unavailable Unavailable Unavailable CASE, LACI Unavailable [address] + [place] [address] BEAR ALMANZAR Unavailable [address] + [address] [place] [address] R Unavailable Unavailable Unavailable CASE, LACI Unavailable [address] + [place] [address] BEAR ALMANZAR Unavailable [address] + [address] [place] [address] R Unavailable Unavailable Unavailable CASE, LACI Unavailable [address] + [place] [address] BEAR ALMANZAR Unavailable [address] + [address] [place] [address] R Unavailable Unavailable Unavailable CASE, LACI Unavailable [address] + [place] [address] BEAR ALMANZAR Unavailable [address] + [address] [place] [address] R Unavailable Unavailable Unavailable CASE, LACI Unavailable [address] + [place] [address] BEAR ALMANZAR Unavailable [address] + [address] [place] [address] R Unavailable Unavailable Unavailable CASE, LACI Unavailable [address] + [place] [address] BEAR ALMANZAR Unavailable [address] + [address] [place] [address] R Unavailable Unavailable Unavailable CASE, LACI Unavailable [address] + [place] [address] BEAR ALMANZAR Unavailable [address] + [address] [place] [address] R Unavailable Unavailable Unavailable CASE, LACI Unavailable [address] + [place] [address] BEAR ALMANZAR Unavailable [address] + [address] [place] [address] R Unavailable Unavailable Unavailable CASE, LACI Unavailable [address] + [place] [address] BEAR ALMANZAR Unavailable [address] + [address] [place] [address] R Unavailable Unavailable Unavailable CASE, LACI Unavailable [address] + [place] [address] LENIN BEAR Unavailable [address] + [address] [place] [address] R Unavailable Unavailable Unavailable CASE, LACI Unavailable [address] + [place] [address] LENIN BEAR Unavailable [address] + [address] [place] [address] R Unavailable Unavailable Unavailable CASE, LACI Unavailable [address] + [place] [address] LENIN BEAR Unavailable [address] + [address] [place] [address] R Unavailable Unavailable Unavailable CASE, LACI Unavailable [address] + [place] [address] LENIN BEAR Unavailable [address] + [address] [place] [address] R Unavailable Unavailable Unavailable CASE, LACI Unavailable [address] + [place] [address] LENIN BEAR Unavailable [address] + [address] [place] [address] R Unavailable Unavailable Unavailable CASE, LACI Unavailable [address] + [place] [address] LENIN BEAR Unavailable [address] + [address] [place] [address] R Unavailable Unavailable Unavailable CASE, LACI Unavailable [address] + [place] [address] LENIN BEAR Unavailable [address] + [address] [place] [address] R Unavailable Unavailable Unavailable CASE, LACI Unavailable [address] + [place] [address] LENIN BEAR Unavailable [address] + [address] [place] [address] R Unavailable Unavailable Unavailable CASE, LACI Unavailable [address] + [place] [address] ALMANZAR, BEAR Unavailable [address] + [address] [place] [address] R Unavailable Unavailable Unavailable CASE, LACI Unavailable [address] + [place] [address] BEAR ALMANZAR Unavailable [address] + [address] [place] [address] R Unavailable Unavailable Unavailable CASE, LACI Unavailable [address] + [place] [address] BEAR ALMANZAR Unavailable [address] + [address] [place] [address] R Unavailable Unavailable Unavailable CASE, LACI Unavailable [address] + [place] [address] BEAR ALMANZAR Unavailable [address] + [address] [place] [address] R Unavailable Unavailable Unavailable CASE, LACI Unavailable [address] + [place] [address] BEAR ALMANZAR Unavailable [address] + [address] [place] [address] R Unavailable Unavailable Unavailable CASE, LACI Unavailable [address] + [place] [address] BEAR ALMANZAR Unavailable [address] + [address] [place] [address] R Unavailable Unavailable Unavailable CASE, LACI Unavailable [address] + [place] [address] BEAR ALMANZAR Unavailable [address] + [address] [place] [address] R Unavailable Unavailable Unavailable CASE, LACI Unavailable [address] + [place] [address] BEAR ALMANZAR Unavailable [address] + [address] [place] [address] R Unavailable Unavailable Unavailable CASE, LACI Unavailable [address] + [place] [address] BEAR ALMANZAR Unavailable [address] + [address] [place] [address] R Unavailable Unavailable Unavailable CASE, LACI Unavailable [address] + [place] [address] ALMANZARBEAR Unavailable [address] + [address] [place] [address] R Unavailable Unavailable Unavailable CASE, LACI Unavailable [address] + [place] [address] ALMANZAR, BEAR Unavailable [address] + [address] [place] [address] R Unavailable Unavailable Unavailable CASE, LACI Unavailable [address] + [place] [address] ALMANZAR, BEAR Unavailable [address] + [address] [place] [address] R Unavailable Unavailable Unavailable CASE, LACI Unavailable [address] + [place] [address] ALMANZARBEAR Unavailable [address] + [address] [facility] [place] [address] R Unavailable Unavailable Unavailable CASE, LACI Unavailable [address] + [place] [address] Care Team Providers Name Role Phone [facility] Unavailable Sementi, Sandra Admitting Unavailable Sementi, Sandra Attending Unavailable Sementi, Snadra Admitting Unavailable Sementi, Sandra Attending Unavailable [facility] Unavailable Sementi, Sandra Consulting Unavailable Sementi, Sandra Admitting Unavailable Sementi, Sandra Attending Unavailable [facility] Unavailable Sementi, Sandra Consulting Unavailable Sementi, Sandra Admitting Unavailable Sementi, Sandra Attending Unavailable [facility] Unavailable Sementi, Sandra Consulting Unavailable Sementi, Sandra Admitting Unavailable Sementi, Sandra Attending Unavailable [facility] Unavailable Sementi, Sandra Consulting Unavailable Sementi, Sandra Admitting Unavailable Sementi, Sandra Attending Unavailable [facility] Unavailable Sementi, Sandra Consulting Unavailable Frank, Ferny Attending Unavailable Ana Bradford Referring Unavailable Sementi, Sandra Admitting Unavailable Sementi, Sandra Attending Unavailable [facility] Unavailable Sementi, Sandra Consulting Unavailable Frank, Ferny Attending Unavailable Koram, Ana Allie Referring Unavailable Frank, Everett Attending Unavailable Koram, Ana Allie Referring Unavailable Sementi, Sandra Admitting Unavailable Sementi, Sandra Attending Unavailable [facility] Unavailable Sementi, Sandra Consulting Unavailable [facility] Unavailable Agyepong, Marin Admitting Unavailable Moodispaw, Nieves Consulting Unavailable Semengema, Sandra Attending Unavailable Jasmina aMhajan Consulting Unavailable Agyepong, Marin Admitting Unavailable Agyepong, Marin Attending Unavailable [facility] Unavailable Agyepong, Marin Consulting Unavailable Agyepong, Marin Admitting Unavailable Moodispakatrina, Nieves Attending Unavailable [facility] Unavailable Moodispaw, Nieves Consulting Unavailable Nae, Dusty Consulting Unavailable Agyepong, Marin Admitting Unavailable Dusty Soni Attending Unavailable [facility] Unavailable Moodispaw, Nieves Consulting Unavailable Nae, Dusty Consulting Unavailable Agyepong, Marin Admitting Unavailable Moodischepe, Nieves Attending Unavailable [facility] Unavailable Moodismaycow, Nieves Consulting Unavailable Nae, Dusty Consulting Unavailable Agyepong, Marin Admitting Unavailable Dusty Soni Attending Unavailable [facility] Unavailable Moodispaw, Nieves Consulting Unavailable Nae, Dusty Consulting Unavailable Agyepong, Marin Admitting Unavailable Moodischepe, Nieves Attending Unavailable [facility] Unavailable Moodispaw, Nieves Consulting Unavailable Joppbrenda, Dusty Consulting Unavailable Agyepong, Marin Admitting Unavailable Moodispaw, Nieves Attending Unavailable [facility] Unavailable Moodispaw, Nieves Consulting Unavailable Jopperi, Dusty Consulting Unavailable Agyepong, Marin Admitting Unavailable Dusty Soni Attending Unavailable [facility] Unavailable Moodispaw, Nieves Consulting Unavailable Jopperi, Dusty Consulting Unavailable Agyepong, Marin Admitting Unavailable JoppDusty gutierrez Attending Unavailable [facility] Unavailable Moodispaw, Nieves Consulting Unavailable Jopperi, Dusty Consulting Unavailable Agyepong, Marin Admitting Unavailable Moodispaw, Nieves Attending Unavailable Bursley, Collin Primary Care Unavailable Moodispaw, Nieves Consulting Unavailable Dusty Soni Consulting Unavailable Agyepong, Marin Admitting Unavailable Moodispaw, Nieves Attending [facility] Un[facility] Moodispaw, Nieves Consulting Unavailable Wyneski, Jasmina Consulting Unavailable Sementi, Sandra Consulting Unavailable Agyepong, Marin Admitting Unavailable Sementi, Sandra Attending [facility]available [facility] Unavailable Moodispaw, Nieves Consulting Unavailable Wyneski, Jasmina Consulting Unavailable Sementi, Sandra Consulting Unavailable Agyepong, Marin Admitting Unavailable Moodispaw, Nieves Attending [facility]available [facility] Unavailable Moodispaw, Nieves Consulting Unavailable Wyneski, Jasmina Consulting Unavailable Sementi, Sandra Consulting Unavailable Agyepong, Marin Admitting Unavailable Sementi, Sandra Attending Unavailable [facility] Unavailable Moodispaw, Nieves Consulting Unavailable Wyneski, Jasmina Consulting Unavailable Sementi, Sandra Consulting Unavailable Agyepong, Marin Admitting Unavailable Sementi, Sandra Attending Unavailable [facility] Unavailable Moodispaw, Nieves Consulting Unavailable Wyneski, Jasmina Consulting Unavailable Sementi, Sandra Consulting Unavailable Frank, Ferny Attending Unavailable Sementi, Sandra Referring Unavailable [facility] Unavailable Koram, Ana Allie Admitting Unavailable Koram, Ana Allie Referring Unavailable Frank, Everett Consulting Unavailable Alex Lainez Attending Unavailable Koram, Ana Allie Admitting Unavailable Koram, Ana Allie Attending Unavailable Koram, Ana Allie Referring Unavailable [facility] Unavailable Frank, Everett Consulting Unavailable Koram, Ana Allie Consulting Unavailable Koram, Ana Allie Admitting Unavailable Frank, Ferny Attending Unavailable Koram, Ana Allie Referring Unavailable [facility] Care Unavailable Frank, Everett Consulting Unavailable Alex Lainez Consulting Unavailable Koram, Ana Allie Admitting Unavailable Koram, Ana Allie Referring Unavailable [facility] Care Unavailable Frank, Ferny Consulting Unavailable Alex Lainez Attending Unavailable Alex Lainez Consulting Unavailable Koram, Ana Allie Admitting Unavailable Koram, Ana Allie Referring Unavailable Bursley, Collin Primary Care Unavailable Frank, Everett Consulting Unavailable Alex Lainez Attending Unavailable Alex Lainez Consulting Unavailable Frank, Ferny Attending Unavailable Sandra Mcconnell Referring Unavailable Bursley, Collin Primary Care Unavailable Matti Ledesma Attending Unavailable Brenda Mckenna Attending Unavailable Frank, Ferny Attending Unavailable Marin Sheikh Referring Unavailable MAK, WADE E Attending Unavailable BURSKERI VERMA) Referring Unavailable MAK, WADE Attending Unavailable BURSLEY, CHRISTCAMERONER Referring Unavailable BURSLEY, CHRISTOPHER Primary Care Unavailable MAK, WADE Attending Unavailable MAK, WADE Referring Unavailable BURSLEY, CHRISTOPHER Primary Care Unavailable KERI GAMEZ) Referring Unavailable MAK, WADE E Referring Unavailable BURSLEYKERI) Referring Unavailable JEREMI GREGORY Attending Unavailable KERI GAMEZ) Referring Unavailable BURSLEYKERI) Referring Unavailable BURSLEYKERI) Referring Unavailable BURSLEYKERI) Referring Unavailable BURSLEYKERI) Referring Unavailable BURSLEYKERI) Referring Unavailable BURSLEYKERI) Attending Unavailable BURSKERI VERMA) Referring Unavailable VIDETICKENN Referring Unavailable BURSKERI VERMA) Referring Unavailable BURSKERI VERMA) Referring Unavailable BURSLEYKERI) Referring Unavailable BURSLEYKERI) Referring Unavailable BURSLEYKERI) Referring Unavailable BURSLEYKERI) Referring Unavailable BURSKERI VERMA) Attending Unavailable KERI GAMEZ) Referring Unavailable BURSKERI VERMA) Referring Unavailable BURSLEYKERI) Referring Unavailable MAK, WADE E Attending Unavailable MAK, WADE E Referring Unavailable MAK, WADE E Referring Unavailable BURSLEYKERI) Referring Unavailable KERI GAMEZ) Referring Unavailable ANDERS BURR (TREV) Referring Unavailable VIDETICKENN Referring Unavailable VIDETICKENN Attending Unavailable KENN LIZARRAGA Referring Unavailable KERI GAMEZ () Attending Unavailable KERI GAMEZ () Referring Unavailable KERI GAMEZ () Referring Unavailable KERI GAMEZ () Referring Unavailable KERI GAMEZ () Referring Unavailable KERI GAMEZ () Attending Unavailable KERI GAMEZ () Referring Unavailable KERI GAMEZ () Referring Unavailable CAROLINA WEI Admitting Unavailable DEREK TIRADO Attending Unavailable MATTI LEDESMA Referring Unavailable CAROLINA WEI C Referring Unavailable CAROLINA WEI C Referring Unavailable CAROLINA WEI C Referring Unavailable SYMONE SONG () Referring Unavailable LAURI, GENIA (POINT OF CARE TECHNICIAN) Referring Unavailable LAURI, GENIA (POINT OF CARE TECHNICIAN) Referring Unavailable LAURI, GENIA (POINT OF CARE TECHNICIAN) Referring Unavailable PROBLEMS PROBLEMS DATE TYPE CONDITION / CODE ATTENDING STATUS SOURCE Unknown R31.0 - Gross Sementi, Active [place] 9 hematuria / Sandra Community R31.0(ICD-10) Hospital Repository Unknown R07.9 - Chest pain, Frank, Everett Active [place] 9 unspecified / Community R07.9(ICD-10) Hospital Repository Unknown I10 - Essential Frank, Everett Active [place] 9 (primary) hypertension Community / I10(ICD-10) Hospital Repository Unknown R94.31 - Abnormal Frank, Everett Active [place] 9 electrocardiogram Community [ECG] [EKG] / Hospital R94.31(ICD-10) Repository Unknown R00.1 - Bradycardia, Frank, Everett Active [place] 9 unspecified / Community R00.1(ICD-10) Hospital Repository Unknown I25.110 - Frank, Everett Active [place] 9 Atherosclerotic heart Community disease of [facility] coronary artery with Repository unstable angina pectoris / I25.110(ICD-10) Unknown I48.0 - Paroxysmal Frank, Everett Active [place] 9 atrial fibrillation / Community I48.0(ICD-10) Hospital Repository Unknown I48.91 - Unspecified Frank, Everett Active [place] 8 atrial fibrillation / Community I48.91(ICD-10) Hospital Repository Unknown Z95.2 - Presence of Frank, Everett Active [place] 8 prosthetic heart valve Community / Z95.2(ICD-10) Hospital Repository Unknown I25.10 - FrankTrung wilcoxril Active [place] 8 Atherosclerotic heart Community disease of [facility] coronary artery Repository without angina pectoris / I25.10(ICD-10) Active Encounter for NA Active [place] 8 screening for Clinic Main malignant neoplasm of [place] colon / Z12.11(ICD-10) Repository Active Other specified NA Active [place] 8 symptoms and signs Clinic Main involving the [place] digestive system and Repository abdomen / R19.8(ICD-10) Active Presence of prosthetic NA [facility] 7 heart valve / Clinic Main Z95.2(ICD-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 Clinic Main / Z79.01(ICD-10) [place] Repository Active Malignant neoplasm of [facility] 7 unspecified part of Clinic Main left bronchus or lung [place] / C34.92(ICD-10) Repository Active Type 2 diabetes NA [facility] 8 mellitus without Clinic Main complications / [place] E11.9(ICD-10) Repository Active Encounter for NA [facility] 8 screening mammogram Clinic Main for malignant neoplasm [place] of breast / Repository Z12.31(ICD-10) Active Atherosclerotic heart MAK [facility] 7 disease of [place] [facility] Other coronary artery [place] without angina Repository pectoris / I25.10(ICD-10) Active Essential (primary) MAK [facility] 8 hypertension / [place] [facility] Other I10(ICD-10) [place] Repository Admitting Unknown / UNK(Unknown) MAK Active [facility] 7 diagnosis [facility] Repository Active Unknown / UNK(Unknown) LOIS [facility] 8 [facility] Main [place] Repository PROCEDURES PROCEDURES No Procedure Records FoundRESULTS RESULTS CBC Collected: 05/16/2018 Status: F Source: [place] 12:34 PM [facility] REPOSITORY TYPE CODE TESTS RESULT OUT OF REFERENCE UNITS RANGE LAB WBC 3.70-11.00 k/uL WBC High 13.64 LAB RBC 3.90-5.20 m/uL Low RBC 3.08 LAB HGB 11.5-15.5 g/dL Low Hemoglobin 8.3 LAB HCT 36.0-46.0 % Low Hematocrit 25.6 LAB MCV 80.0-100.0 fL MCV 83.1 LAB MCH 26.0-34.0 pG MCH 26.9 LAB MCHC 30.5-36.0 g/dL MCHC 32.4 LAB RDWCV 11.5-15.0 % RDW-CV High 17.3 LAB PLTCT 150-400 k/uL Low Platelet Count 103 LAB MPV 9.0-12.7 fL MPV 11.7 LAB ABSNUC <0.01 k/uL Absolute nRBC <0.01 Performed By: #### CBC #### [facility] [address] [place], [place] [address] GASA + ALL Collected: 05/16/2018 Status: F Source: [place] FOR 12:04 PM [facility] RADIANCE USE ONLY REPOSITORY TYPE CODE TESTS RESULT OUT OF REFERENCE UNITS RANGE LAB PH 7.35-7.45 pH 7.36 LAB PCO2 34-46 mm Hg pCO2 Low 33 LAB PO2 85-95 mm Hg pO2 High 144 LAB BE mmol/L Base Excess NEG 6 LAB HCO3 22-26 mmol/L Bicarbonate Low 18 LAB CO2CT 22.0-28.0 mmol/L CO2 Content Low 19 LAB O2HB 95-98 % Oxyhemoglobin, Art. 97 LAB COHB 0-5.0 % Carboxyhemoglobin,A 1.8 rt LAB MHGB 0.4-1.5 % Methemoglobin 0.5 LAB TEMP C Temperature, Body 37.0 LAB PHTC 7.35-7.45 pH, Temp Corrected 7.36 LAB PCO2T 34-46 mm Hg pCO2, Temp Low Correct 33 LAB PO2T mm Hg pO2, Temp Corrected 144 LAB NAB 132-148 mmol/L Sodium,Whole Bld Low 127 LAB KWB 3.5-5.0 mmol/L Potassium, Whole Bld 3.9 LAB HGBB 11.5-15.5 g/dL Low Hemoglobin,Total,AC 7.5 L LAB HCTB 36.0-46.0 % Hematocrit, ACL Low 23 LAB IC 1.08-1.30 mmol/L Calcium, Ion, WB Low 1.07 LAB GLB 60-105 mg/dL Glucose,Whole Bld High 210 LAB LACT 0.5-2.2 mmol/L Lactate 1.0 Performed By: #### ALLBG #### [facility] [address] [place], [place] [address] PROGRESS Observed: 05/16/2018 Status: COMPLETED Source: [place] 9:23 AM [facility] REPOSITORY HNO ID: [id number] Author: Jazmin (Trev) Jackie Service: Critical Care Author Type: Nurse Practitioner Type: Progress Notes Filed: 05/16/2018 9:24 AM Note Text: [facility] Note Name: Flavia Case Coordination of Care Note: Indication for Surgery: CAD, , MR, TR, AF Preop LVEF: 71% RVF: Normal Postop LVEF: Normal RVF: Normal Important/Relevant PMH/PSH: CAD, , MR, TR, AF, s/p CABG 1996, s/p AVR with mechanical valve 2005, acute on chronic diastolic HF, Squamous cell lung CA s/p rads, DM, COPD Preoperative Hospital Course: Airway Difficulty: Grade I - No special instrumentation Pacing Wires: Yes: Atrial and Ventricular: When discontinuing pacing wires: Pull all pacing wires Chronological List of Surgeries and Major Events (Diagnosis): (Surgeries in bold characters) 05/14/2018: Redo CABG X 2 SVG-OM, SVG-RCA (prior patent SHELBY- LAD), AVR with 23 CE Inspiris, MVr with 27 Hyde band, TVr with Tia stitch, Biatrial cryoMaze (no CHARLES ligation) A/P of Major Active Problems (excluding routine care and common problems): Cardiac: Junctional bradycardia, intrinsic rhythm adequately supports BP. Continue VVI backup at 40 bpm MA 10. Acute on chronic diastolic HF, Epi weaned off and tolerating. Pulmonary: Post op atelectasis and pulmonary edema on CXR. Oxygenation stable on 4 L NC. Continue OOB, PEP, and optimize pain control. Increase diuresis. Wean O2 as tolerated. Renal: Peripheral edema/Pulmonary edema on exam. Increase lasix dosing, trend IANDO/labs and adjust accordingly. Hyponatremia in the setting of FVO, continue diuresis and monitor and trend Endo: Perioperative insulin resistance and exacerbation of hyperglycemia, SSI for glycemic control. Endocrinology consulted for uncontrolled BG ID: Leukocytosis, WBC 14.50, afebrile. Continue to monitor. Heme: Thrombocytopenia, Plt 96 K. No active s/sx bleeding, continue to monitor and trend Lines:05/14/2018 Charly BRYAN, KARO PA catheter To Do or to Watch: S/p MAZE-daily dose coumadin Junctional bradycardia- VVI backup at 40 bpm MA 10 Discharge Planning: Anticipated Discharge Date: Unknown Barriers to Discharge: Unknown Care Management Discharge Needs: Needs Prior to Discharge: To Be Determined Other Problems I Reviewed and/or Managed During This Encounter: Problem Mr (Mitral Regurgitation) 05/14/2018 Redo MVr with 27 Hyde band A/P: ASA Tricuspid Regurgitation 05/14/2018 Redo TVr with Tia stitch A/P: ASA Coronary Artery Disease Involving [place] Coronary Artery of [place] Heart With Unstable Angina Pectoris (Hcc) History of CABG 1997 05/14/2018 Redo CABG X 2 SVG-OM, SVG-RCA (prior patent SHELBY-LAD) CAD Core Measures: Aspirin: Yes Beta blockers: No - due to not indicated at this time Statins: Reassess for Best Practices prior to hospital discharge Paf (Paroxysmal Atrial Fibrillation) ([facility]) History of PAF-on coumadin 05/14/2018 Redo sternotomy Biatrial cryoMaze (no CHARLES ligation) A/P: Junctional bradycardia, intrinsic rhythm adequately supports BP. Continue VVI backup at 40 bpm MA 10. Daily dosing coumadin. Nonrheumatic Aortic Valve Stenosis History of AVR with mechanical valve 2006 05/14/2018 Redo AVR with 23 CE Inspiris A/P: ASA Acute Pulmonary Edema (Hcc) A/P: Pulmonary edema on CXR. Oxygenation stable on 4 L NC. Increase diuresis, monitor daily CXR Atelectasis A/P: Post op atelectasis. Oxygenation stable on 4 L NC. Continue OOB, PEP, and optimize pain control. Copd (Chronic Obstructive Pulmonary Disease) ([facility]) A/P: Start duonebs scheduled, prednisone 40 mg QD X 3 days duration Junctional Bradycardia A/P: Junctional bradycardia, intrinsic rhythm adequately supports BP. Continue VVI backup at 40 bpm MA 10. Continue to monitor rhythm Acute On Chronic Diastolic Heart Failure ([facility]) A/P: Epi weaned off and tolerating. Start diuresis, resume HF regimen once appropriate Hyperlipemia A/P: Resume statin once appropriate Acute Post-Operative Pain A/P: Pain controlled. Continue Tylenol, lidoderm, and oxycodone. Type 2 Diabetes Mellitus With Complication, Without Long-Term Current Use of Insulin ([facility]) A/P: Perioperative insulin resistance and exacerbation of hyperglycemia, SSI for glycemic control. Endocrinology consulted for assistance with glycemic control. Hyponatremia A/P: NA 126 in the setting of FVO, increase diuresis. Continue to trend NA Hypervolemia A/P: Peripheral edema on exam/pulmonary edema on CXR. Increase diuresis, trend IANDO/labs and adjust accordingly. Thrombocytopenia ([facility]) A/P: Plt 96 K, no active s/sx bleeding. Continue to monitor and trend Anticoagulation Management Encounter A/P: s/p MAZE. Daily dose coumadin for goal INR 2-3 Leukocytosis A/P: WBC 14.50, afebrile. Continue to monitor and trend PHYSICAL EXAM: Neuro: Awake, Follows commands, Alert and oriented x 3 and SANCHEZ Cardiovascular: Rhythm: junctional bradycardia Pulmonary: Clear to auscultation, Breath sounds equal and Diminished breath sounds, bilateral bases Ventilator: N/A, patient is extubated CXR Findings: Pulmonary edema, Atelectasis Bilateral, Pleural effusion Bilateral and CXR personally viewed and interpreted by ICU staff Nurse Practitioner Gastrointestinal: Abdominal: Soft and Non-tender DAILY CVICU CHECKLIST VTE Prophylaxis: Pharmacologic Yes VTE Prophylaxis: Mechanical: Yes Line infection prevention: Can CVC, PAC or arterial line be removed: Yes - Remove arterial line and Remove Central venous catheter Continued need for urinary catheter: Yes - clinical indication: Patient post major surgery requiring fluid balance and input and output measurement. Restraints needed: No SIGNATURE: Jazmin Mejia APRN.CNP DATE of SERVICE: 05/16/2018 TIME of SERVICE: 9:24 AM GASA + ALL Collected: 05/16/2018 Status: F Source: [facility] 4:02 AM [facility] RADIANCE USE ONLY REPOSITORY TYPE CODE TESTS RESULT OUT OF REFERENCE UNITS RANGE LAB PH 7.35-7.45 pH Low 7.33 LAB PCO2 34-46 mm Hg pCO2 43 LAB PO2 85-95 mm Hg pO2 94 LAB BE mmol/L Base Excess NEG 3 LAB HCO3 22-26 mmol/L Bicarbonate 22 LAB CO2CT 22.0-28.0 mmol/L CO2 Content 24 LAB O2HB 95-98 % Oxyhemoglobin, Art. 95 LAB COHB 0-5.0 % Carboxyhemoglobin,A 1.7 rt LAB MHGB 0.4-1.5 % Methemoglobin 0.8 LAB TEMP C Temperature, Body 37.0 LAB PHTC 7.35-7.45 pH, Temp Low Corrected 7.33 LAB PCO2T 34-46 mm Hg pCO2, Temp Correct 43 LAB PO2T mm Hg pO2, Temp Corrected 94 LAB NAB 132-148 mmol/L Sodium,Whole Bld Low 124 LAB KWB 3.5-5.0 mmol/L Potassium, Whole Bld 4.9 LAB HGBB 11.5-15.5 g/dL Low Hemoglobin,Total,AC 9.5 L LAB HCTB 36.0-46.0 % Hematocrit, ACL Low 29 LAB IC 1.08-1.30 mmol/L Calcium, Ion, WB 1.19 LAB GLB 60-105 mg/dL Glucose,Whole Bld High 224 LAB LACT 0.5-2.2 mmol/L Lactate 1.3 Performed By: #### ALLBG #### [facility] [address] [place], [place] [address] XR CHEST 1V FRONTAL Observed: 05/16/2018 Status: F Source: [facility] 2:22 AM [facility] REPOSITORY * * *Final Report* * * DATE OF EXAM: May 16 2018 2:22AM MANUELA [id number] - XR CHEST 1V FRONTAL PORT / PROCEDURE REASON: Post-operative / post-procedure assessment, asymptomatic * * * * Physician Interpretation * * * * EXAMINATION: CHEST RADIOGRAPH (PORTABLE SINGLE VIEW AP) Exam Date/Time: 05/16/2018 2:22 AM Clinical History: Post-operative / post-procedure assessment, asymptomatic, MQ: [id number] Comparison: 1 day prior RESULT: See impression. IMPRESSION: Lines, tubes, and devices: Stable support tubes and lines. Lungs and pleura: Mild interstitial edema pattern. Bilateral basilar subsegmental atelectases possibly associated with small pleural effusions. No large pneumothorax. Cardiomediastinal silhouette: Stable enlarged cardiomediastinal silhouette. CABG, aortic valve replacement (as per history), and mitral annuloplasty Other: Median sternotomy. Tax Associate Attorney: PSCB Transcribe Date/Time: May 16 2018 8:12A Dictated by : SARAI SANTIAGO MD This examination was interpreted and the report reviewed and electronically signed by: SARAI SANTIAGO MD on May 16 2018 8:14AM EST [id number] GASA + ALL Collected: 05/16/2018 Status: F Source: [facility] FOR 1:43 AM [facility] USE ONLY REPOSITORY TYPE CODE TESTS RESULT OUT OF REFERENCE UNITS RANGE LAB PH 7.35-7.45 pH Low 7.33 LAB PCO2 34-46 mm Hg pCO2 42 LAB PO2 85-95 mm Hg pO2 High 124 LAB BE mmol/L Base Excess NEG 4 LAB HCO3 22-26 mmol/L Bicarbonate Low 21 LAB CO2CT 22.0-28.0 mmol/L CO2 Content 23 LAB O2HB 95-98 % Oxyhemoglobin, Art. 97 LAB COHB 0-5.0 % Carboxyhemoglobin,A 1.2 rt LAB MHGB 0.4-1.5 % Methemoglobin 0.6 LAB TEMP C Temperature, Body 37.0 LAB PHTC 7.35-7.45 pH, Temp Low Corrected 7.33 LAB PCO2T 34-46 mm Hg pCO2, Temp Correct 42 LAB PO2T mm Hg pO2, Temp Corrected 124 LAB NAB 132-148 mmol/L Sodium,Whole Bld Low 124 LAB KWB 3.5-5.0 mmol/L Potassium, Whole Bld 4.8 LAB HGBB 11.5-15.5 g/dL Low Hemoglobin,Total,AC 8.6 L LAB HCTB 36.0-46.0 % Hematocrit, ACL Low 27 LAB IC 1.08-1.30 mmol/L Calcium, Ion, WB 1.17 LAB GLB 60-105 mg/dL Glucose,Whole Bld High 267 LAB LACT 0.5-2.2 mmol/L Lactate 1.4 Performed By: #### ALLBG #### [facility] [address] [place], [place] [address] CBC Collected: 05/16/2018 Status: F Source: [facility] 1:39 [facility] REPOSITORY TYPE CODE TESTS RESULT OUT OF REFERENCE UNITS RANGE LAB WBC 3.70-11.00 k/uL WBC High 14.50 LAB RBC 3.90-5.20 m/uL Low RBC 3.24 LAB HGB 11.5-15.5 g/dL Low Hemoglobin 8.8 LAB HCT 36.0-46.0 % Low Hematocrit 27.1 LAB MCV 80.0-100.0 fL MCV 83.6 LAB MCH 26.0-34.0 pG MCH 27.2 LAB MCHC 30.5-36.0 g/dL MCHC 32.5 LAB RDWCV 11.5-15.0 % RDW-CV High 17.2 LAB PLTCT 150-400 k/uL Low Platelet Count 96 Result Comment: Result checked and verified No clot detected. LAB MPV 9.0-12.7 fL MPV 12.1 LAB ABSNUC <0.01 k/uL Absolute nRBC <0.01 Performed By: #### CBC, PT, CMP #### [facility] [address] [place], [place] [address] PROTIME Collected: 05/16/2018 Status: F Source: [facility] 1:39 [facility] REPOSITORY TYPE CODE TESTS RESULT OUT OF RANGE REFERENCE UNITS LAB PSEC 9.7-13.0 sec PT Sec 12.4 LAB INR 0.9-1.3 PT INR 1.2 Result Comment: Vitamin K Antagonist (VKA) Therapeutic Range: INR 2 to 3 (Target INR of 2.5) Note: For patients treated with VKA drugs, such as warfarin, the [place] [employer] 2012 Guideline recommends a therapeutic INR range of 2 to 3 (target INR of 2.5). This recommendation includes high-risk patients with antiphospholipid syndrome with previous arterial or venous thromboembolism, current-generation mechanical or bioprosthetic aortic heart valve replacement. Note: Patients with mechanical aortic valve replacement and additional risk factors for thromboembolic events (atrial fibrillation, previous thromboembolism, LV dysfunction, hypercoagulable conditions) or an older generation mechanical AVR (i.e., ball in-Cage) or any mechanical MVR should have a INR therapeutic range of 2.5 to 3.5 (target INR of 3). Joe BARBER, et al. Chest 2012, 141:7S-47S Catie HONG et al. [facility] 2017, 70: 252-289 Performed By: #### CBC, PT, CMP #### [facility] [address] [place], [place] [address] COMP METABOLIC PANEL Collected: 05/16/2018 Status: F Source: [facility] 1:39 AM [facility] REPOSITORY TYPE CODE TESTS RESULT OUT OF REFERENCE UNITS RANGE LAB TP 6.3-8.0 g/dL Low Protein, Total 6.1 LAB ALB 3.9-4.9 g/dL Low Albumin 3.2 LAB CA 8.5-10.2 mg/dL Low Calcium, Total 8.3 LAB TBIL 0.2-1.3 mg/dL Bilirubin, Total 0.4 LAB ALKP 34-123 U/L Alkaline Phosphatase 50 LAB AST 13-35 U/L AST High 44 LAB GLU 74-99 mg/dL Glucose High 267 Result Comment: The [place] Diabetes Association (ADA) provides guidance for cutoff values for fasting glucose and random glucose. The ADA defines fasting as no caloric intake for at least 8 hours. Fas ting plasma glucose results between 100 to 125 mg/dL indicate increased risk for diabetes (prediabetes). Fasting plasma glucose results greater than or equal to 126 mg/dL meet the criteria for diagnosis of diabetes. In the absence of unequivocal hyperglycemia, results should be confirmed by repeat testing. In a patient with classic symptoms of hyperglycemia or hyperglycemic crisis, random plasma glucose results greater than or equal to 200 mg/dL meet the criteria for diagnosis of diabetes. Reference: Standards of Medical Care in Diabetes 2016, [place] [employer] Association. Diabetes Care. 2016.39(Suppl 1). LAB BUN 7-21 mg/dL BUN High 25 LAB CRET 0.58-0.96 mg/dL Creatinine High 1.00 LAB NA 136-144 mmol/L Low Sodium 126 Result Comment: Result rechecked. LAB K 3.7-5.1 mmol/L Potassium 5.1 LAB CL 97-105 mmol/L Chloride Low 93 Result Comment: Result rechecked. LAB CO2 22-30 mmol/L Low CO2 21 Result Comment: Result rechecked. LAB AGAP 9-18 mmol/L Anion Gap 12 LAB ALT 7-38 U/L ALT 37 LAB GFRAA eGFR- Amer. >60 LAB GFRNAA . eGFR-All Other Races 55 Result Comment: eGFR (Estimated GFR) Units of measure: mL/min/1.73 meters squared eGFR is derived from the reexpressed MDRD Study equation using the following parameters: serum creatinine, age, gender and race. The creatinine assay has been calibrated to be traceable to IDMS. An eGFR <60 mL/min/1.73m2 for >3 months is consistent with chronic kidney disease. Refer to KDOQI guidelines for clinical interpretation. In patients with unstable renal function, e.g. those with acute kidney injury, the eGFR may not accurately reflect actual GFR. Performed By: #### CBC, PT, CMP #### [facility] [address] [place], [place] [address] GASA + ALL Collected: 05/15/2018 Status: F Source: [facility] FOR 9:11 PM [facility] RAD[facility] USE ONLY REPOSITORY TYPE CODE TESTS RESULT OUT OF REFERENCE UNITS RANGE LAB PH 7.35-7.45 pH Low 7.34 LAB PCO2 34-46 mm Hg pCO2 39 LAB PO2 85-95 mm Hg pO2 High 126 LAB BE mmol/L Base Excess NEG 4 LAB HCO3 22-26 mmol/L Bicarbonate Low 21 LAB CO2CT 22.0-28.0 mmol/L CO2 Content 22 LAB O2HB 95-98 % Oxyhemoglobin, Art. 97 LAB COHB 0-5.0 % Carboxyhemoglobin,A 1.8 rt LAB MHGB 0.4-1.5 % Methemoglobin 0.6 LAB TEMP C Temperature, Body 37.0 LAB PHTC 7.35-7.45 pH, Temp Low Corrected 7.34 LAB PCO2T 34-46 mm Hg pCO2, Temp Correct 39 LAB PO2T mm Hg pO2, Temp Corrected 126 LAB NAB 132-148 mmol/L Sodium,Whole Bld Low 127 LAB KWB 3.5-5.0 mmol/L Potassium, Whole Bld 4.5 LAB HGBB 11.5-15.5 g/dL Low Hemoglobin,Total,AC 9.0 L LAB HCTB 36.0-46.0 % Hematocrit, ACL Low 28 LAB IC 1.08-1.30 mmol/L Calcium, Ion, WB 1.15 LAB GLB 60-105 mg/dL Glucose,Whole Bld High 230 LAB LACT 0.5-2.2 mmol/L Lactate 1.0 Performed By: #### ALLBG #### [facility] [address], [place] [address] GASA + ALL Collected: 05/15/2018 Status: F Source: [facility] FOR 6:47 PM [facility] RAD[facility] USE ONLY REPOSITORY TYPE CODE TESTS RESULT OUT OF REFERENCE UNITS RANGE LAB PH 7.35-7.45 pH Low 7.29 LAB PCO2 34-46 mm Hg pCO2 46 LAB PO2 85-95 mm Hg pO2 High 118 LAB BE mmol/L Base Excess NEG 4 LAB HCO3 22-26 mmol/L Bicarbonate 22 LAB CO2CT 22.0-28.0 mmol/L CO2 Content 23 LAB O2HB 95-98 % Oxyhemoglobin, Art. 97 LAB COHB 0-5.0 % Carboxyhemoglobin,A 1.6 rt LAB MHGB 0.4-1.5 % Methemoglobin 0.7 LAB TEMP C Temperature, Body 37.0 LAB PHTC 7.35-7.45 pH, Temp Low Corrected 7.29 LAB PCO2T 34-46 mm Hg pCO2, Temp Correct 46 LAB PO2T mm Hg pO2, Temp Corrected 118 LAB NAB 132-148 mmol/L Sodium,Whole Bld Low 126 LAB KWB 3.5-5.0 mmol/L Potassium, Whole High Bld 5.1 LAB HGBB 11.5-15.5 g/dL Low Hemoglobin,Total,AC 9.1 L LAB HCTB 36.0-46.0 % Hematocrit, ACL Low 28 LAB IC 1.08-1.30 mmol/L Calcium, Ion, WB 1.23 LAB GLB 60-105 mg/dL Glucose,Whole Bld High 264 LAB LACT 0.5-2.2 mmol/L Lactate 1.4 Performed By: #### ALLBG #### [facility] [address] [place], [place] [address] GASA + ALL Collected: 05/15/2018 Status: F Source: [facility] FOR 4:08 PM [facility] RAD[facility] USE ONLY REPOSITORY TYPE CODE TESTS RESULT OUT OF REFERENCE UNITS RANGE LAB PH 7.35-7.45 pH Low 7.32 LAB PCO2 34-46 mm Hg pCO2 42 LAB PO2 85-95 mm Hg pO2 High 116 LAB BE mmol/L Base Excess NEG 4 LAB HCO3 22-26 mmol/L Bicarbonate Low 21 LAB CO2CT 22.0-28.0 mmol/L CO2 Content 22 LAB O2HB 95-98 % Oxyhemoglobin, Art. 96 LAB COHB 0-5.0 % Carboxyhemoglobin,A 1.8 rt LAB MHGB 0.4-1.5 % Methemoglobin 0.4 LAB TEMP C Temperature, Body 37.0 LAB PHTC 7.35-7.45 pH, Temp Low Corrected 7.32 LAB PCO2T 34-46 mm Hg pCO2, Temp Correct 42 LAB PO2T mm Hg pO2, Temp Corrected 116 LAB NAB 132-148 mmol/L Sodium,Whole Bld Low 127 LAB KWB 3.5-5.0 mmol/L Potassium, Whole Bld 5.0 LAB HGBB 11.5-15.5 g/dL Low Hemoglobin,Total,AC 9.5 L LAB HCTB 36.0-46.0 % Hematocrit, ACL Low 29 LAB IC 1.08-1.30 mmol/L Calcium, Ion, WB 1.23 LAB GLB 60-105 mg/dL Glucose,Whole Bld High 259 LAB LACT 0.5-2.2 mmol/L Lactate 1.2 Performed By: #### ALLBG #### [facility] [address] [place], [place] [address] NUTRITION Observed: 05/15/2018 Status: COMPLETED Source: [facility] 3:00 PM [facility] REPOSITORY HNO ID: [id number] Author: Jovita Reyes (Diet-T) Basic Service: Nutrition Therapy Author Type: Railway Switchman Type: Nutrition Filed: 05/15/2018 3:01 PM Note Text: NUTRITION THERAPY FOLLOW-UP NOTE SERVICE DATE: 05/15/2018 SERVICE TIME: 1015 Anthropometrics: Height: 160 cm (5' 3) Current Weight: Weight: (bed not zeroed) Body mass index is 39.38 kg/m?. Loss of lean body mass/visual muscle wasting: no malnutrition per RD on 05/09/2018 Admitting Diagnosis: ANGINA Present Diet Order: Carbohydrate Controlled and Heart Healthy 4 gm Na Is the patient having any pain that is interfering with oral/enteral intake? Unable to assess Allergies: ALLERGIES Allergen Reactions - Advair Diskus [Flut* Other: See Comments CHEST PAIN - Asa [Salicylates] Unknown patient taking coumadin - on low dose ASA for valve dysfunction - Cephalexin Stomach pains-pt. ended up in hospital - Ekg Pads [Other] adhesive - Lisinopril Cough - Nexium [Esomeprazol* Other: See Comments Ineffective - Omeprazole Other: See Comments Ineffective - Tudorza Pressair [A* GI Upset - Ventolin [Albuterol* Other: See Comments Severe shaking, palpitations - Ventolin [Albuterol] Other: See Comments Ventolin MDI does not work, Pro Air works best Reason for Visit: Nutrition screen: LOS > 6 days Nutrient intake assessment: Current intake of meals: 75 - 100% prior to surgery POD#1, sleeping at time of visit. Per RN, patient only consumed orange juice this morning. 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 due to conflicting diet orders, diet has since been corrected Nursing Admission Assessment Malnutrition Score Tool: 3 Plan of Care: Recommendation Continue to monitor weekly Discharge Plan: Home on Carbohydrate Controlled and Heart Healthy 4 gm Na diet MNT Billing Type: Routine Care/15 min 1 unit SIGNATURE: Jovita Melgar DTR PATIENT NAME: Flavia Case DATE: May 15, 2018 TIME: 3:00 PM PAGER: [phone] CONSULT PROG Observed: 05/15/2018 Status: COMPLETED Source: [facility] 1:42 PM [facility] REPOSITORY HNO ID: [id number] Author: Joaquin Barth (Fel) Service: Pulmonary Disease Author Type: Fellow Type: Consult Progress Note Filed: 05/15/2018 1:46 PM Note Text: Saw patient post op Doing well from respiratory perspective. Would recommend continue prednisone for total 5 days Rest of recommendation as previously stated Will sign off. Call back with questions Joaquin Barth MD ANES POST Observed: 05/15/2018 Status: COMPLETED Source: [facility] 1:05 PM [facility] REPOSITORY HNO ID: [id number] Author: Laci Saleh Service: Anesthesiology Author Type: Anesthesiologist Type: Anesthesia PostOp Filed: 05/15/2018 1:06 PM Note Text: POST ANESTHESIA EVALUATION NOTE SERVICE DATE: 05/15/2018 SERVICE TIME: 1306 : 1950 Vitals: 05/13/18 2245 05/14/18 0000 05/15/18 0723 05/15/18 1108 Temp: (!) 35.9 ?C (96.7 ?F) 36.5 ?C (97.7 ?F) (!) 35.6 ?C (96.1 ?F) 36.1 ?C (97 ?F) 05/15/18 1130 05/15/18 1150 05/15/18 1210 05/15/18 1230 Arterial BP 1: 126/52 122/53 112/47 117/48 BP: 114/58 134/60 05/15/18 1154 05/15/18 1207 05/15/18 1210 05/15/18 1230 Pulse: 79 79 79 79 05/15/18 1154 05/15/18 1207 05/15/18 1210 05/15/18 1230 Resp: 13 18 16 13 05/15/18 1154 05/15/18 1207 05/15/18 1210 05/15/18 1230 SpO2: 95% 95% 92% 95% Validated Vital Signs: Yes POST ANES STATUS: No apparent anesthetic complications. The patient is appropriately hydrated with stable respiratory and cardiovascular status. Patient has safe and adequate airway control. The patient has appropriate pain relief and no significant post operative nausea or vomiting. The patient has achieved baseline mental status. Intra-Operative Events: No Significant Anesthesia Events Further assessment by Anesthesia Service: None Other Remarks: SIGNATURE: Laci Saleh MD PATIENT NAME: Flavia Case DATE: May 15, 2018 TIME: 1:05 PM PAGER/CONTACT #: [email or web address] Observed: 05/15/2018 Status: COMPLETED Source: [facility] 11:27 AM [facility] REPOSITORY O ID: [id number] Author: Himanshu Green) Sybil Service: (none) Author Type: Registered Nurse Type: Progress Notes Filed: 05/15/2018 3:22 PM Note Text: PRIMARY CARE COORDINATION SBAR PCC HAND IN Flavia Case, 68 year old female SITUATION: Pt transferred to [facility] after several admissions in past month for chest pain. BACKGROUND: Living arrangements: Lives with great granddaughter pt is raising. 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 ? [phone] Health Pony Roll Finisher: Family Member: daughterBear Self Care/ADLs: Independent Mobility: Independent Barriers to care/Adherence: Financial ASSESSMENT: Psychosocial: Patient has had much stress and anxiety with her family and her medical condition over the past year. Stated she made her grandson HCPOA because pt can not easily get a hold of her son when she needs assistance and even though grandson is out of state he will always answer her calls. RECOMMENDATIONS: Crown Buffer will follow up with patient at discharge. Name of Crown Buffer: Himanshu Aquino RN [facility] or [facility] office: [place] Department: Family Medicine Phone number: [phone] E-mail address: [email or web address] Himanshu Aquino RN PROGRESS Observed: 05/15/2018 Status: COMPLETED Source: [facility] 11:18 AM [facility] REPOSITORY HNO ID: [id number] Author: Himanshu (Koko) Sybil Service: (none) Author Type: Registered Nurse Type: Progress Notes Filed: 05/15/2018 11:26 AM Note Text: PRIMARY CARE COORDINATION FOLLOW-UP NOTE Provider Action/CLAYI DARRYL Araiza requires diagnosis codes for shower chair. Patient identified by name and date of . YES Spoke to Noreen Parker from [facility] Summary: States she needs other ICD-10 codes to cover patient's shower chair ordered by PCP. Informed pt just had CABG yesterday. ICD-10 Codes S/P Aortic and Mitral Valve Replacement Z98.890 Tricuspid Valve Repair Z95.4 CABG I25.709 Blue Leather Sorter plan for next outreach: Will follow up at Hospital Discharge Signature Himanshu Aquino RN May 15, 2018 GASA + ALL Collected: 05/15/2018 Status: F Source: [facility] FOR 10:57 AM [facility] USE ONLY REPOSITORY TYPE CODE TESTS RESULT OUT OF REFERENCE UNITS RANGE LAB PH 7.35-7.45 pH Low 7.29 LAB PCO2 34-46 mm Hg pCO2 42 LAB PO2 85-95 mm Hg pO2 High 102 LAB BE mmol/L Base Excess NEG 6 LAB HCO3 22-26 mmol/L Bicarbonate Low 20 LAB CO2CT 22.0-28.0 mmol/L CO2 Content Low 21 LAB O2HB 95-98 % Oxyhemoglobin, Art. 96 LAB COHB 0-5.0 % Carboxyhemoglobin, 0.0 Art LAB MHGB 0.4-1.5 % Methemoglobin 0.6 LAB TEMP C Temperature, Body 37.0 LAB PHTC 7.35-7.45 pH, Temp Low Corrected 7.29 LAB PCO2T 34-46 mm Hg pCO2, Temp Correct 42 LAB PO2T mm Hg pO2, Temp Corrected 102 LAB NAB 132-148 mmol/L Sodium,Whole Low Bld 130 LAB KWB 3.5-5.0 mmol/L Potassium, Whole Bld 4.8 LAB HGBB 11.5-15.5 g/dL Low Hemoglobin,Total,A 8.5 CL LAB HCTB 36.0-46.0 % Hematocrit, Low ACL 27 LAB IC 1.08-1.30 mmol/L Calcium, Ion, WB 1.15 LAB GLB 60-105 mg/dL Glucose,Whole High Bld 265 LAB LACT 0.5-2.2 mmol/L Lactate 1.8 LAB ACBDTE Notify Date, Art [id number] LAB ACBTME Notify Time, Art Performed By: #### ALLBG #### [facility] [address] [place] [address] PROGRESS Observed: 05/15/2018 Status: COMPLETED Source: [facility] 9:07 AM [facility] REPOSITORY HNO ID: [id number] Author: Jazmin Mejia Service: Critical Care Author Type: Nurse Practitioner Type: Progress Notes Filed: 05/15/2018 9:11 AM Note Text: [facility] Note Name: Flavia Case Coordination of Care Note: Indication for Surgery: CAD, , MR, TR, AF Preop LVEF: 71% RVF: Normal Postop LVEF: Normal RVF: Normal Important/Relevant PMH/PSH: CAD, , MR, TR, AF, s/p CABG 1996, s/p AVR with mechanical valve 2005, acute on chronic diastolic HF, Squamous cell lung CA s/p rads, DM, COPD Preoperative Hospital Course: Airway Difficulty: Grade I - No special instrumentation Pacing Wires: Yes: Atrial and Ventricular: When discontinuing pacing wires: Pull all pacing wires Chronological List of Surgeries and Major Events (Diagnosis): (Surgeries in bold characters) 05/14/2018: Redo CABG X 2 SVG-OM, SVG-RCA (prior patent SHELBY- LAD), AVR with 23 CE Inspiris, MVr with 27 Hyde band, TVr with Tia stitch, Biatrial cryoMaze (no CHARLES ligation) A/P of Major Active Problems (excluding routine care and common problems): Cardiac: Junctional bradycardia requiring VVI pacing at 80 bpm V MA 7, associated hypotension when EPM dialed down. Acute on chronic diastolic HF, Epi weaned off and tolerating. Pulmonary: Post op atelectasis. Oxygenation stable on 3 L NC. Continue OOB, PEP, and optimize pain control. Wean O2 as tolerated. Renal: Peripheral edema on exam. Start lasix, trend IANDO/labs and adjust accordingly. Endo: Perioperative insulin resistance and exacerbation of hyperglycemia, SSI for glycemic control. Consider endo consult if uncontrolled on current regimen ID: Leukocytosis, WBC 12.94, afebrile. Continue to monitor. Lines:05/14/2018 Chraly BRYAN, KARO PA catheter To Do or to Watch: S/p MAZE-daily dose coumadin Junctional bradycardia- VVI pacing Discharge Planning: Anticipated Discharge Date: Unknown Barriers to Discharge: Unknown Care Management Discharge Needs: Needs Prior to Discharge: To Be Determined Other Problems I Reviewed and/or Managed During This Encounter: Problem Mr (Mitral Regurgitation) 05/14/2018 Redo MVr with 27 Hyde band A/P: ASA Tricuspid Regurgitation 05/14/2018 Redo TVr with Tia stitch A/P: ASA Coronary Artery Disease Involving [place] Coronary Artery of [place] Heart With Unstable Angina Pectoris (Hcc) History of CABG 1997 05/14/2018 Redo CABG X 2 SVG-OM, SVG-RCA (prior patent SHELBY-LAD) CAD Core Measures: Aspirin: Yes Beta blockers: No - due to not indicated at this time Statins: Reassess for Best Practices prior to hospital discharge Paf (Paroxysmal Atrial Fibrillation) ([facility]) History of PAF-on coumadin 05/14/2018 Redo sternotomy Biatrial cryoMaze (no CHARLES ligation) A/P: Currently junctional bradycardia, HR 40s. Continue VVI pacing at 80 bpm. Start daily dosing coumadin. Nonrheumatic Aortic Valve Stenosis History of AVR with mechanical valve 200505/14/2018 Redo AVR with 23 CE Inspiris A/P: ASA Atelectasis A/P: Post op atelectasis. Oxygenation stable on 3 L NC. Continue OOB, PEP, and optimize pain control. Copd (Chronic Obstructive Pulmonary Disease) ([facility]) A/P: Start duonebs scheduled, resume prednisone 40 mg QD X 3 days duration Junctional Bradycardia A/P: Junctional bradycardia, underlying HR 40s with associated hypotension. Continue VVI Pacing at 80 bpm MA 7. Continue to monitor rhythm Acute On Chronic Diastolic Heart Failure ([facility]) A/P: Epi weaned off and tolerating. Start diuresis, resume HF regimen once appropriate Hyperlipemia A/P: Resume statin once appropriate Acute Post-Operative Pain A/P: Pain controlled. 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 Type 2 Diabetes Mellitus With Complication, Without Long-Term Current Use of Insulin ([facility]) A/P: Perioperative insulin resistance and exacerbation of hyperglycemia, SSI for glycemic control. Consider endo consult if remains uncontrolled. Hypervolemia A/P: Peripheral edema on exam. Start diuresis, trend IANDO/labs and adjust accordingly. Leukocytosis A/P: WBC 12.94, afebrile. Continue to monitor and trend PHYSICAL EXAM: Neuro: Awake, Follows commands, Alert and oriented x 3 and SANCHEZ Cardiovascular: Rhythm: junctional josemanuel underlying, VVI pacing at 80 bpm Pulmonary: Clear to auscultation, Breath sounds equal and Diminished breath sounds, bilateral bases Ventilator: N/A, patient is extubated CXR Findings: Atelectasis Bilateral, Pleural effusion Bilateral and CXR personally viewed and interpreted by ICU staff Nurse Practitioner Gastrointestinal: Abdominal: Soft and Non-tender DAILY CVICU CHECKLIST VTE Prophylaxis: Pharmacologic Yes VTE Prophylaxis: Mechanical: Yes Line infection prevention: Can CVC, PAC or arterial line be removed: No Continued need for urinary catheter: Yes - clinical indication: Patient post major surgery requiring fluid balance and input and output measurement. Restraints needed: No This patient has a high probability of sudden, clinically significant deterioration, which requires the highest level of preparedness to intervene urgently. I participated in the decision making and personally managed or directed the management of the following life and organ supporting interventions that required my frequent assessment to treat or prevent imminent deterioration of: Problem Mr (Mitral Regurgitation) Tricuspid Regurgitation Coronary Artery Disease Involving Chitina Coronary Artery of [place]it[place] Heart With Unstable Angina Pectoris (Hcc) Paf (Paroxysmal Atrial Fibrillation) (Hcc) Nonrheumatic Aortic Valve Stenosis Atelectasis Copd (Chronic Obstructive Pulmonary Disease) (Hcc) Junctional Bradycardia Acute On Chronic Diastolic Heart Failure (Hcc) Hyperlipemia Acute Post-Operative Pain Type 2 Diabetes Mellitus With Complication, Without Long-Term Current Use of Insulin (Hcc) Hypervolemia Leukocytosis On Mechanically Assisted Ventilation (Hcc) (Resolved) Hypovolemia (Resolved) I personally spent 44 minutes of critical care time treating the patient. Time devoted to any procedures I billed separately is not included. SIGNATURE: Jazmin Mejia APRN.CNP DATE of SERVICE: 05/15/2018 TIME of SERVICE: 9:08 AM CASE MANAGEM Observed: 05/15/2018 Status: COMPLETED Source: [facility] 8:27 AM [facility] REPOSITORY [facility] ID: [id number] Author: Rachell (Koko) KOKO Alba Service: Case Management Author Type: Registered Nurse Type: Care Mgt Progress Note Filed: 05/15/2018 8:33 AM Note Text: CARE MANAGEMENT PROGRESS NOTE SERVICE DATE: 05/15/2018 SERVICE TIME: 8:27 AM LOS: 6 days Needs Prior to Discharge: To Be Determined Chronological List of Surgeries and Major Events (Diagnosis): (Surgeries in bold characters) 05/14/2018: Redo CABG X 2 SVG-OM, SVG-RCA (prior patent SHELBY- LAD), AVR with 23 CE Inspiris, MVr with 27 Hyde band, TVr with Tia stitch, Biatrial cryoMaze (no CHARLES ligation) Patient received from OR intubated and sedated, wean to extubate and OOB to chair. Dc needs TBD. PT eval pending. Case Management will continue to follow Medical course and plan discharge accordingly. SIGNATURE: Rachell Alba RN PATIENT NAME: Flavia Case DATE: May 15, 2018 TIME: 8:27 AM PAGER/CONTACT #: [phone] GASA + ALL Collected: 05/15/2018 Status: F Source: [facility] 7:45 AM [facility] RADIANCE USE ONLY REPOSITORY TYPE CODE TESTS RESULT OUT OF REFERENCE UNITS RANGE LAB PH 7.35-7.45 pH 7.36 LAB PCO2 34-46 mm Hg pCO2 39 LAB PO2 85-95 mm Hg pO2 High 108 LAB BE mmol/L Base Excess NEG 3 LAB HCO3 22-26 mmol/L Bicarbonate Low 21 LAB CO2CT 22.0-28.0 mmol/L CO2 Content 22 LAB O2HB 95-98 % Oxyhemoglobin, Art. 96 LAB COHB 0-5.0 % Carboxyhemoglobin, 1.3 Art LAB MHGB 0.4-1.5 % Methemoglobin 0.8 LAB TEMP C Temperature, Body 37.0 LAB PHTC 7.35-7.45 pH, Temp Corrected 7.36 LAB PCO2T 34-46 mm Hg pCO2, Temp Correct 39 LAB PO2T mm Hg pO2, Temp Corrected 108 LAB NAB 132-148 mmol/L Sodium,Whole Low Bld 130 LAB KWB 3.5-5.0 mmol/L Potassium, Whole Bld 4.8 LAB HGBB 11.5-15.5 g/dL Low Hemoglobin,Total,A 9.8 CL LAB HCTB 36.0-46.0 % Hematocrit, Low ACL 30 LAB IC 1.08-1.30 mmol/L Calcium, Ion, WB 1.25 LAB GLB 60-105 mg/dL Glucose,Whole High Bld 230 LAB LACT 0.5-2.2 mmol/L Lactate 1.3 LAB ACBDTE Notify Date, Art [id number] LAB ACBTME Notify Time, Art Performed By: #### ALLBG #### [facility] [address] [place] [address] PROTIME Collected: 05/15/2018 Status: F Source: [facility] 7:40 AM [facility] REPOSITORY TYPE CODE TESTS RESULT OUT OF RANGE REFERENCE UNITS LAB PSEC 9.7-13.0 sec PT Sec 12.2 LAB INR 0.9-1.3 PT INR 1.2 Result Comment: Vitamin K Antagonist (VKA) Therapeutic Range: INR 2 to 3 (Target INR of 2.5) Note: For patients treated with VKA drugs, such as warfarin, the [place] [employer] 2012 Guideline recommends a therapeutic INR range of 2 to 3 (target INR of 2.5). This recommendation includes high-risk patients with antiphospholipid syndrome with previous arterial or venous thromboembolism, current-generation mechanical or bioprosthetic aortic heart valve replacement. Note: Patients with mechanical aortic valve replacement and additional risk factors for thromboembolic events (atrial fibrillation, previous thromboembolism, LV dysfunction, hypercoagulable conditions) or an older generation mechanical AVR (i.e., ball in-Cage) or any mechanical MVR should have a INR therapeutic range of 2.5 to 3.5 (target INR of 3). Joe GH, et al. Chest 2012, 141:7S-47S Catie RA, et al. [facility] 2017, 70: 252-289 Performed By: #### PT, PTT #### [facility] [address] [place], [place] [address] APTT Collected: 05/15/2018 Status: F Source: [facility] 7:40 AM [facility] REPOSITORY TYPE CODE TESTS RESULT OUT OF RANGE REFERENCE UNITS LAB APTT 23.0-32.4 sec APTT 31.5 Result Comment: Unfractionated Heparin Therapeutic Ranges: Standard Heparin Nomogram: 53 to 78 seconds (anti-Xa level of 0.3 to 0.7 U/ml) Low Dose/ACS Nomogram: 49 to 67 seconds (anti-Xa level of 0.2 to 0.5 U/ml) Stroke Treatment Nomogram: 49 to 67 seconds (anti-Xa level of 0.2 to 0.5 U/ml) Note: The APTT therapeutic range has been determined for the current lot of laboratory APTT reagent in use throughout the [employer]. Performed By: #### PT, PTT #### [facility] [address] [place], [place] [address] GASA + ALL Collected: 05/15/2018 Status: F Source: [facility] 6:41 AM [facility] RADIANCE USE ONLY REPOSITORY TYPE CODE TESTS RESULT OUT OF REFERENCE UNITS RANGE LAB PH 7.35-7.45 pH Low 7.33 LAB PCO2 34-46 mm Hg pCO2 40 LAB PO2 85-95 mm Hg pO2 High 142 LAB BE mmol/L Base Excess NEG 5 LAB HCO3 22-26 mmol/L Bicarbonate Low 21 LAB CO2CT 22.0-28.0 mmol/L CO2 Content 22 LAB O2HB 95-98 % Oxyhemoglobin, Art. 97 LAB COHB 0-5.0 % Carboxyhemoglobin,A 0.8 rt LAB MHGB 0.4-1.5 % Methemoglobin 0.7 LAB TEMP C Temperature, Body 37.0 LAB PHTC 7.35-7.45 pH, Temp Low Corrected 7.33 LAB PCO2T 34-46 mm Hg pCO2, Temp Correct 40 LAB PO2T mm Hg pO2, Temp Corrected 142 LAB NAB 132-148 mmol/L Sodium,Whole Bld 132 LAB KWB 3.5-5.0 mmol/L Potassium, Whole Bld 4.7 LAB HGBB 11.5-15.5 g/dL Low Hemoglobin,Total,AC 9.6 L LAB HCTB 36.0-46.0 % Hematocrit, ACL Low 30 LAB IC 1.08-1.30 mmol/L Calcium, Ion, WB 1.25 LAB GLB 60-105 mg/dL Glucose,Whole Bld High 221 LAB LACT 0.5-2.2 mmol/L Lactate 1.4 Performed By: #### ALLBG #### [facility] [address] [place], [place] [address] GASA + ALL Collected: 05/15/2018 Status: F Source: [facility] FOR 3:47 AM [facility] RADIANCE USE ONLY REPOSITORY TYPE CODE TESTS RESULT OUT OF REFERENCE UNITS RANGE LAB PH 7.35-7.45 pH Low 7.34 LAB PCO2 34-46 mm Hg pCO2 41 LAB PO2 85-95 mm Hg pO2 High 98 LAB BE mmol/L Base Excess NEG 3 LAB HCO3 22-26 mmol/L Bicarbonate 22 LAB CO2CT 22.0-28.0 mmol/L CO2 Content 23 LAB O2HB 95-98 % Oxyhemoglobin, Art. 96 LAB COHB 0-5.0 % Carboxyhemoglobin,A 1.0 rt LAB MHGB 0.4-1.5 % Methemoglobin 0.7 LAB TEMP C Temperature, Body 37.0 LAB PHTC 7.35-7.45 pH, Temp Low Corrected 7.34 LAB PCO2T 34-46 mm Hg pCO2, Temp Correct 41 LAB PO2T mm Hg pO2, Temp Corrected 98 LAB NAB 132-148 mmol/L Sodium,Whole Bld Low 129 LAB KWB 3.5-5.0 mmol/L Potassium, Whole High Bld 5.3 LAB HGBB 11.5-15.5 g/dL Low Hemoglobin,Total,AC 9.6 L LAB HCTB 36.0-46.0 % Hematocrit, ACL Low 30 LAB IC 1.08-1.30 mmol/L Calcium, Ion, WB 1.11 LAB GLB 60-105 mg/dL Glucose,Whole Bld High 213 LAB LACT 0.5-2.2 mmol/L Lactate 1.2 Performed By: #### ALLBG #### [facility] [address] [place], [place] [address] XR CHEST 1V FRONTAL Observed: 05/15/2018 Status: F Source: [facility] 2:14 AM [facility] REPOSITORY * * *Final Report* * * DATE OF EXAM: May 15 2018 2:14AM JIX [id number] - XR CHEST 1V FRONTAL PORT / PROCEDURE REASON: Post-operative / post-procedure assessment, asymptomatic * * * * Physician Interpretation * * * * EXAMINATION: CHEST RADIOGRAPH (PORTABLE SINGLE VIEW AP) Exam Date/Time: 05/15/2018 2:14 AM Clinical History: Post-operative / post-procedure assessment, asymptomatic, MQ: [id number] Comparison: 1 day prior RESULT: See impression. IMPRESSION: Lines, tubes, and devices: Interval extubation. Other support tubes and lines are unchanged. Lungs and pleura: Mild worsening bilateral basilar airspace opacities with possible small layering pleural effusions. Findings likely represent atelectasis, although underlying aspiration in the lung bases cannot be excluded. No pneumothorax. Cardiomediastinal silhouette: Stable cardiomediastinal silhouette. Previous aortic valve replacement and mitral annuloplasty. Other: Median sternotomy Tax Associate Attorney: [facility] Transcribe Date/Time: May 15 2018 7:26A Dictated by : SARAI SANTIAGO MD This examination was interpreted and the report reviewed and electronically signed by: SARAI SANTIAGO MD on May 15 2018 7:27AM EST [id number] GASA + ALL Collected: 05/15/2018 Status: F Source: [facility] FOR 1:43 AM [facility] RADIANCE USE ONLY REPOSITORY TYPE CODE TESTS RESULT OUT OF REFERENCE UNITS RANGE LAB PH 7.35-7.45 pH 7.36 LAB PCO2 34-46 mm Hg pCO2 40 LAB PO2 85-95 mm Hg pO2 High 157 LAB BE mmol/L Base Excess NEG 3 LAB HCO3 22-26 mmol/L Bicarbonate 22 LAB CO2CT 22.0-28.0 mmol/L CO2 Content 23 LAB O2HB 95-98 % Oxyhemoglobin, Art. 97 LAB COHB 0-5.0 % Carboxyhemoglobin,A 0.7 rt LAB MHGB 0.4-1.5 % Methemoglobin 0.9 LAB TEMP C Temperature, Body 37.0 LAB PHTC 7.35-7.45 pH, Temp Corrected 7.36 LAB PCO2T 34-46 mm Hg pCO2, Temp Correct 40 LAB PO2T mm Hg pO2, Temp Corrected 157 LAB NAB 132-148 mmol/L Sodium,Whole Bld 132 LAB KWB 3.5-5.0 mmol/L Potassium, Whole Bld 4.8 LAB HGBB 11.5-15.5 g/dL Low Hemoglobin,Total,AC 9.6 L LAB HCTB 36.0-46.0 % Hematocrit, ACL Low 30 LAB IC 1.08-1.30 mmol/L Calcium, Ion, WB 1.17 LAB GLB 60-105 mg/dL Glucose,Whole Bld High 168 LAB LACT 0.5-2.2 mmol/L Lactate 1.2 Performed By: #### ALLBG #### [facility] [address] [place] [address] CBC Collected: 05/15/2018 Status: F Source: [facility] 1:38 AM [facility] REPOSITORY TYPE CODE TESTS RESULT OUT OF REFERENCE UNITS RANGE LAB WBC 3.70-11.00 k/uL WBC High 12.94 LAB RBC 3.90-5.20 m/uL Low RBC 3.59 LAB HGB 11.5-15.5 g/dL Low Hemoglobin 9.6 LAB HCT 36.0-46.0 % Low Hematocrit 30.0 LAB MCV 80.0-100.0 fL MCV 83.6 LAB MCH 26.0-34.0 pG MCH 26.7 LAB MCHC 30.5-36.0 g/dL MCHC 32.0 LAB RDWCV 11.5-15.0 % RDW-CV High 17.0 LAB PLTCT 150-400 k/uL Low Platelet Count 117 LAB MPV 9.0-12.7 fL MPV 11.8 LAB ABSNUC <0.01 k/uL Absolute High nRBC 0.03 Performed By: #### CBC, CMP, CASSIA #### [facility] [address] [place], [place] [address] COMP METABOLIC PANEL Collected: 05/15/2018 Status: F Source: [facility] 1:38 AM [facility] REPOSITORY TYPE CODE TESTS RESULT OUT OF REFERENCE UNITS RANGE LAB TP 6.3-8.0 g/dL Low Protein, Total 5.3 LAB ALB 3.9-4.9 g/dL Low Albumin 3.1 LAB CA 8.5-10.2 mg/dL Low Calcium, Total 8.3 LAB TBIL 0.2-1.3 mg/dL Bilirubin, Total 0.3 LAB ALKP 34-123 U/L Alkaline Phosphatase 48 LAB AST 13-35 U/L AST High 102 LAB GLU 74-99 mg/dL Glucose High 188 Result Comment: The [place] Diabetes Association (ADA) provides guidance for cutoff values for fasting glucose and random glucose. The ADA defines fasting as no caloric intake for at least 8 hours. Fas ting plasma glucose results between 100 to 125 mg/dL indicate increased risk for diabetes (prediabetes). Fasting plasma glucose results greater than or equal to 126 mg/dL meet the criteria for diagnosis of diabetes. In the absence of unequivocal hyperglycemia, results should be confirmed by repeat testing. In a patient with classic symptoms of hyperglycemia or hyperglycemic crisis, random plasma glucose results greater than or equal to 200 mg/dL meet the criteria for diagnosis of diabetes. Reference: Standards of Medical Care in Diabetes 2016, [place] Diabetes Association. Diabetes Care. 2016.39(Suppl 1). LAB BUN 7-21 mg/dL BUN 18 LAB CRET 0.58-0.96 mg/dL Creatinine 0.95 LAB NA 136-144 mmol/L Low Sodium 135 LAB K 3.7-5.1 mmol/L Potassium High 5.6 LAB CL 97-105 mmol/L Chloride 103 LAB CO2 22-30 mmol/L CO2 24 LAB AGAP 9-18 mmol/L Low Anion Gap 8 LAB ALT 7-38 U/L ALT High 40 LAB GFRAA eGFR- Amer. >60 LAB GFRNAA . eGFR-All Other Races 58 Result Comment: eGFR (Estimated GFR) Units of measure: mL/min/1.73 meters squared eGFR is derived from the reexpressed MDRD Study equation using the following parameters: serum creatinine, age, gender and race. The creatinine assay has been calibrated to be traceable to IDMS. An eGFR <60 mL/min/1.73m2 for >3 months is consistent with chronic kidney disease. Refer to KDOQI guidelines for clinical interpretation. In patients with unstable renal function, e.g. those with acute kidney injury, the eGFR may not accurately reflect actual GFR. Performed By: #### CBC, CMP, CASSIA #### [facility] [address] [place], [place] [address] TROPONIN T Collected: 05/15/2018 Status: F Source: [facility] 1:38 AM [facility] REPOSITORY TYPE CODE TESTS RESULT OUT OF REFERENCE UNITS RANGE LAB TROPT 0.000-0.029 ng/mL High Troponin T 2.440 Result Comment: Called to and read back by: KOKO CASTRO J56 05/15/18 Emeli ZARATE Performed By: #### CBC, CMP, CASSIA #### [facility] [address] [place], [place] [address] CNPTOUTREACH Observed: 05/15/2018 Status: COMPLETED Source: [facility] 12:00 AM [facility] REPOSITORY Patient Outreach (FAMPWS) FLAVIA CASE ([id number]) 1950 F Date Time Provider Department 05/15/18 HIMANSHU AQUINO) FAMPWS During your visit today, we recorded the following information about you: Himanshu Aquino RN 05/15/2018 11:26 AM Signed PRIMARY CARE COORDINATION FOLLOW-UP NOTE Provider Action/FYI FYI [facility] requires diagnosis codes for shower chair. Patient identified by name and date of . YES Spoke to Noreen Parker from [facility] DME Summary: States she needs other ICD-10 codes to cover patient's shower chair ordered by PCP. Informed pt just had CABG yesterday. ICD-10 Codes S/P Aortic and Mitral Valve Replacement Z98.890 Tricuspid Valve Repair Z95.4 CABG I25.709 Blue Leather Sorter plan for next outreach: Will follow up at Hospital Discharge Signature Himanshu Aquino RN May 15, 2018 Himanshu Aquino RN 05/15/2018 3:22 PM Signed PRIMARY CARE COORDINATION SBAR PCC HAND IN Flavia Case, 68 year old female SITUATION: Pt transferred to [facility] after several admissions in past month for chest pain. BACKGROUND: Living arrangements: Lives with great granddaughter pt is raising. 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 ? [phone] Health Pony Roll Finisher: Family Member: Bear mauricio Self Care/ADLs: Independent Mobility: Independent Barriers to care/Adherence: Financial ASSESSMENT: Psychosocial: Patient has had much stress and anxiety with her family and her medical condition over the past year. Stated she made her grandson HCPOA because pt can not easily get a hold of her son when she needs assistance and even though grandson is out of state he will always answer her calls. RECOMMENDATIONS: [facility] will follow up with patient at discharge. Name of [facility]: Himanshu Aquino RN [facility] or [facility] office: [place] Department: Family Medicine Phone number: [phone] E-mail address: [email or web address] Himanshu Aquino RN Allergies As of Date: 05/15/2018 Noted Allergy Reaction ADVAIR DISKUS (FLUTICASONE-SALMET*05/16/2011 14 - Other: See Comments Comments: CHEST PAIN ASA (SALICYLATES) 05/10/2005 16 - Unknown Comments: patient taking coumadin - on low dose ASA for valve dysfunction CEPHALEXIN 02/21/2008 Comments: Stomach pains-pt. ended up in hospital EKG PADS [Other] 05/10/2005 Comments: adhesive LISINOPRIL 07/03/2014 3 - Cough NEXIUM (ESOMEPRAZOLE MAGNESIUM) 01/26/2016 14 - Other: See Comments Comments: Ineffective OMEPRAZOLE 01/26/2016 14 - Other: See Comments Comments: Ineffective TUDORZA PRESSAIR (ACLIDINIUM BROM*01/26/2016 8 - GI Upset VENTOLIN (ALBUTEROL SULFATE) 10/24/2017 14 - Other: See Comments Comments: Severe shaking, palpitations VENTOLIN (ALBUTEROL) 01/26/2016 14 - Other: See Comments Comments: Ventolin MDI does not work, Pro Air works best Date Reviewed: 05/15/2018 Reviewed by: Veda (Rn) KOKO Nolan - Fully Assessed Reason for Visit: [facility] Chronic Care [4828] Prescriptions as of 05/15/2018 Sig: IV CONTRAST (RADIOLOGY PROCED* CT Cardiac - No IV access, in* FUROSEMIDE 20 MG TABLET Take 1 tablet by mouth once d* ISOSORBIDE MONONITRATE ER 120* Take 120 mg by mouth once aminah* MAGNESIUM OXIDE 400 MG CAPSULE Take 1 capsule by mouth w FRANCHESCA* ATENOLOL 50 MG TABLET Take 1 tablet by mouth once d* WARFARIN 6 MG TABLET Take 3 mg , and 6 m* AMLODIPINE 10 MG TABLET Take 1 tablet by mouth once d* LORATADINE 10 MG TABLET Take 1 tablet by mouth once d* BUSPIRONE 5 MG TABLET Take 1 tablet by mouth three * AMIODARONE 200 MG TABLET Take 1 tablet by mouth once d* POTASSIUM CHLORIDE ER 20 MEQ * Take 1 tablet by mouth once d* MECLIZINE 12.5 MG TABLET Take 1 tablet by mouth three * NYSTATIN-TRIAMCINOLONE 100,00* Apply 1 application to affect* LINAGLIPTIN 5 MG TABLET Take 1 tablet by mouth once d* ALPRAZOLAM 0.25 MG TABLET Take 1 tablet by mouth every * RANOLAZINE ER 500 MG TABLET,E* Take 1 tablet by mouth twice * COMPOUNDED PRESCRIPTION HOME BP MONITOR, DX: HTN LABI* COMPOUNDED PRESCRIPTION Home scale for daily weight c* COMPOUNDED PRESCRIPTION Nebulizer for home use. Diagn* GUAIFENESIN ER 600 MG TABLET,* Take 2 tablets by mouth twice* FERROUS SULFATE 325 MG (65 MG* take 1 tablet by mouth twice * ASPIRIN 81 MG TABLET,DELAYED * Take 1 tablet by mouth once d* LANSOPRAZOLE 30 MG CAPSULE,DE* take 1 capsule by mouth every* LOSARTAN 100 MG TABLET take 1 tablet by mouth once d* NITROGLYCERIN 0.4 MG SUBLINGU* Dissolve 1 tablet under the t* ATORVASTATIN 20 MG TABLET take 1 tablet by mouth once d* METFORMIN ER 500 MG TABLET,EX* take 2 tablets by mouth twice* OXYBUTYNIN CHLORIDE ER 10 MG * take 1 tablet by mouth once d* MUPIROCIN 2 % TOPICAL OINTMENT Apply 1 application to affect* ALBUTEROL SULFATE HFA 90 MCG/* Inhale 2 Puffs as instructed * POLYETHYLENE GLYCOL 3350 17 G* Take 17 g by mouth once daily* GLIPIZIDE ER 10 MG TABLET, EX* Take 1 tablet by mouth once d* DICLOFENAC 1 % TOPICAL GEL Apply 2 g to affected area tw* LEG BRACE 1 Each continuous. DX: S89.92* LEG BRACE 1 Each continuous. COMPOUNDED PRESCRIPTION NEBULIZER SUPPLIES, MEDICATIO* Problem List As Of Date 05/15/2018 Noted Resolved AORTOCORONARY BYPASS STATUS [Z95.1] More... OVERWEIGHT [E66.9] 05/08/2015 ASHD (arteriosclerotic heart disease) [I25.10] INVALID FOR* More... DIABETES MELLITUS TYPE II-UNCOMPL [E11.9] INVALID FOR*02/12/2014 More... HYPERLIPIDEMIA NEC/NOS [E78.5] INVALID FOR*07/24/2015 More... Hematuria [599.7] INVALID FOR*07/24/2015 More... History of mechanical aortic valve replacement *INVALID FOR*05/14/2018 More... Abdominal pain, unspecified site [R10.9] INVALID FOR*05/08/2015 Acute gastritis without mention of hemorrhage [*INVALID FOR*01/26/2016 Esophageal reflux [K21.9] INVALID FOR* More... Headache(784.0) [R51] INVALID FOR*01/26/2016 Bronchitis Recurrent [J40] INVALID FOR*03/21/2017 Hallux valgus (acquired) [M20.10] INVALID FOR*07/24/2015 Pain in limb [M79.609] INVALID FOR*01/26/2016 Goiter [E04.9] INVALID FOR* S/P AVR [Z95.2] INVALID FOR*01/26/2016 Multinodular thyroid [E04.2] INVALID FOR* Emphysema of lung (HCC) [J43.9] More... Hyperlipemia [E78.5] INVALID FOR* More... DM type 2 (diabetes mellitus, type 2) ([facility]) [E1*INVALID FOR*05/08/2015 Hematuria [R31.9] INVALID FOR*10/23/2015 Smoking [F17.200] INVALID FOR*10/23/2015 OAB (overactive bladder) [N32.81] INVALID FOR* More... Frequency of urination [R35.0] INVALID FOR*01/26/2016 Hypertension goal BP (blood pressure) < 140/90 *INVALID FOR* More... Diabetes mellitus type 2, uncontrolled, without*INVALID FOR*03/21/2017 More... Nicole rash of groin [B37.89] INVALID FOR* More... Stress at home [F43.9] INVALID FOR* Insomnia [G47.00] INVALID FOR* Financial difficulties [Z59.8] INVALID FOR* Obesity, Class III, BMI >= 40 (morbid obesity) *INVALID FOR* More... Hemoptysis [R04.2] INVALID FOR* More... 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 Eczema [L30.9] Type 2 diabetes mellitus with complication, wit* More... COPD (chronic obstructive pulmonary disease) (H* More... Diastolic CHF ([facility]) [I50.30] Angina at rest ([facility]) [I20.8] INVALID FOR*05/09/2018 Coronary artery disease involving skull [place] man*INVALID FOR* More... PAF (paroxysmal atrial fibrillation) ([facility]) [I48*INVALID FOR* More... Acute on chronic diastolic heart failure ([facility]) *INVALID FOR* More... Nonrheumatic aortic valve stenosis [I35.0] INVALID FOR* More... Preop testing [Z01.818] INVALID FOR* More... MR (mitral regurgitation) [I34.0] INVALID FOR* More... Tricuspid regurgitation [I07.1] INVALID FOR* More... On mechanically assisted ventilation ([facility]) [Z99*INVALID FOR*05/15/2018 More... Acute post-operative pain [G89.18] INVALID FOR* More... Atelectasis [J98.11] INVALID FOR* More... Junctional bradycardia [R00.1] INVALID FOR* More... Hypovolemia [E86.1] INVALID FOR*05/15/2018 More... Hypervolemia [E87.70] INVALID FOR* More... Leukocytosis [D72.829] INVALID FOR* More... Encounter Status:Closed by HIMANSHU AQUINO on 05/15/18 GASA + ALL Collected: 05/14/2018 Status: F Source: [facility] 11:51 PM [facility] RADIANCE USE ONLY REPOSITORY TYPE CODE TESTS RESULT OUT OF REFERENCE UNITS RANGE LAB PH 7.35-7.45 pH 7.37 LAB PCO2 34-46 mm Hg pCO2 38 LAB PO2 85-95 mm Hg pO2 High 169 LAB BE mmol/L Base Excess NEG 3 LAB HCO3 22-26 mmol/L Bicarbonate 22 LAB CO2CT 22.0-28.0 mmol/L CO2 Content 23 LAB O2HB 95-98 % Oxyhemoglobin, High Art. 99 LAB COHB 0-5.0 % Carboxyhemoglobin,A 0.0 rt LAB MHGB 0.4-1.5 % Methemoglobin Low 0.3 LAB TEMP C Temperature, Body 37.0 LAB PHTC 7.35-7.45 pH, Temp Corrected 7.37 LAB PCO2T 34-46 mm Hg pCO2, Temp Correct 38 LAB PO2T mm Hg pO2, Temp Corrected 169 LAB NAB 132-148 mmol/L Sodium,Whole Bld 132 LAB KWB 3.5-5.0 mmol/L Potassium, Whole Bld 4.3 LAB HGBB 11.5-15.5 g/dL Low Hemoglobin,Total,AC 10.3 L LAB HCTB 36.0-46.0 % Hematocrit, ACL Low 32 LAB IC 1.08-1.30 mmol/L Calcium, Ion, WB 1.18 LAB GLB 60-105 mg/dL Glucose,Whole Bld High 150 LAB LACT 0.5-2.2 mmol/L Lactate 1.8 Performed By: #### ALLBG #### [facility] [address] [place], [place] [address] PROGRESS Observed: 05/14/2018 Status: COMPLETED Source: [facility]AT 11:29 PM [facility] REPOSITORY HNO ID: [id number] Author: Ky Damon (Brown Sourer) KIET Hurt Service: Respiratory Therapy Author Type: Respiratory Therapist Type: Progress Notes Filed: 05/14/2018 11:29 PM Note Text: Dr breen at bedside. Rt directed to extubate. Pt follows commands well. GASA + ALL Collected: 05/14/2018 Status: F Source: [facility] FOR 10:55 PM [facility] RADIANCE USE ONLY REPOSITORY TYPE CODE TESTS RESULT OUT OF REFERENCE UNITS RANGE LAB PH 7.35-7.45 pH 7.40 LAB PCO2 34-46 mm Hg pCO2 37 LAB PO2 85-95 mm Hg pO2 High 145 LAB BE mmol/L Base Excess NEG 1 LAB HCO3 22-26 mmol/L Bicarbonate 23 LAB CO2CT 22.0-28.0 mmol/L CO2 Content 24 LAB O2HB 95-98 % Oxyhemoglobin, Art. 96 LAB COHB 0-5.0 % Carboxyhemoglobin,A 1.6 rt LAB MHGB 0.4-1.5 % Methemoglobin 1.3 LAB TEMP C Temperature, Body 37.0 LAB PHTC 7.35-7.45 pH, Temp Corrected 7.40 LAB PCO2T 34-46 mm Hg pCO2, Temp Correct 37 LAB PO2T mm Hg pO2, Temp Corrected 145 LAB NAB 132-148 mmol/L Sodium,Whole Bld 132 LAB KWB 3.5-5.0 mmol/L Potassium, Whole Bld 4.4 LAB HGBB 11.5-15.5 g/dL Low Hemoglobin,Total,AC 10.5 L LAB HCTB 36.0-46.0 % Hematocrit, ACL Low 33 LAB IC 1.08-1.30 mmol/L Calcium, Ion, WB 1.18 LAB GLB 60-105 mg/dL Glucose,Whole Bld High 180 LAB LACT 0.5-2.2 mmol/L Lactate 1.9 Performed By: #### ALLBG #### [facility] [address] [place], [place] [address] GASV + ALL Collected: 05/14/2018 Status: F Source: [facility] 8:52 PM [facility] REPOSITORY TYPE CODE TESTS RESULT OUT OF REFERENCE UNITS RANGE LAB VPH 7.32-7.42 pH 7.34 LAB VPC2 42-55 mm Hg pCO2 47 LAB VPO2 35-45 mm Hg pO2 38 LAB VBE mmol/L Base Excess NEG 1 LAB VHC3 24-28 mmol/L Bicarbonate 25 LAB VC2C 25-29 mmol/L CO2 Content 26 LAB O2HBCX 60-85 % 64 Oxyhemoglobin, Ld. LAB CO <2.0 % 1.0 Carboxyhemoglobin ,Ld LAB METHB 0.4-1.5 % 0.9 Methemoglobin LAB VTMP C 37.0 Temperature, Body LAB VPHTC 7.32-7.42 pH, Temp 7.34 Corrected LAB VPC2T mm Hg pCO2, Temp 47 Correct LAB VPO2T mm Hg pO2, Temp 38 Corrected LAB NAB 132-148 mmol/L 134 Sodium,Whole Bld LAB KWB 3.5-5.0 mmol/L Potassium, 4.0 Whole Bld LAB HGBB 11.5-15.5 g/dL 10.4 Low Hemoglobin,Total, ACL LAB HCTB 36.0-46.0 % Hematocrit, 32 Low ACL LAB IC 1.08-1.30 mmol/L Calcium, 1.18 Ion, WB LAB GLB 60-105 mg/dL 143 High Glucose,Whole Bld LAB LACT 0.5-2.2 mmol/L Lactate 1.6 LAB VBGCOM Blood Gas O2 Comm, Ld Administration Result Comment: 40% Performed By: #### VALLBG #### [facility] [address], [place] [address] GASA + ALL Collected: 05/14/2018 Status: F Source: [facility] FOR 8:49 PM [facility] RADIANCE USE ONLY REPOSITORY TYPE CODE TESTS RESULT OUT OF REFERENCE UNITS RANGE LAB PH 7.35-7.45 pH 7.40 LAB PCO2 34-46 mm Hg pCO2 38 LAB PO2 85-95 mm Hg pO2 138 High LAB BE mmol/L Base Excess NEG 1 LAB HCO3 22-26 mmol/L Bicarbonate 23 LAB CO2CT 22.0-28.0 mmol/L CO2 Content 24 LAB O2HB 95-98 % 97 Oxyhemoglobin, Art. LAB COHB 0-5.0 % 0.9 Carboxyhemoglobin ,Art LAB MHGB 0.4-1.5 % 1.1 Methemoglobin LAB TEMP C 37.0 Temperature, Body LAB PHTC 7.35-7.45 pH, Temp 7.40 Corrected LAB PCO2T 34-46 mm Hg pCO2, Temp 38 Correct LAB PO2T mm Hg pO2, Temp 138 Corrected LAB NAB 132-148 mmol/L 134 Sodium,Whole Bld LAB KWB 3.5-5.0 mmol/L Potassium, 4.1 Whole Bld LAB HGBB 11.5-15.5 g/dL 10.3 Low Hemoglobin,Total, ACL LAB HCTB 36.0-46.0 % Hematocrit, 32 Low ACL LAB IC 1.08-1.30 mmol/L Calcium, 1.22 Ion, WB LAB GLB 60-105 mg/dL 146 High Glucose,Whole Bld LAB LACT 0.5-2.2 mmol/L Lactate 1.6 LAB ABGCOM Blood Gas O2 Comm, Art Administration Result Comment: 40% Performed By: #### ALLBG #### [facility] [address], [place] [address] GASV + ALL Collected: 05/14/2018 Status: F Source: [facility] 7:27 PM [facility] [place] REPOSITORY TYPE CODE TESTS RESULT OUT OF REFERENCE UNITS RANGE LAB VPH 7.32-7.42 pH 7.34 LAB VPC2 42-55 mm Hg pCO2 48 LAB VPO2 35-45 mm Hg pO2 Low 32 LAB VBE mmol/L Base Excess 0 LAB VHC3 24-28 mmol/L Bicarbonate 25 LAB VC2C 25-29 mmol/L CO2 Content 27 LAB O2HBCX 60-85 % Oxyhemoglobin, Low Ld. 51 LAB CO <2.0 % Carboxyhemoglobin,V 1.2 en LAB METHB 0.4-1.5 % Methemoglobin 0.8 LAB VTMP C Temperature, Body 37.0 LAB VPHTC 7.32-7.42 pH, Temp Corrected 7.34 LAB VPC2T mm Hg pCO2, Temp Correct 48 LAB VPO2T mm Hg pO2, Temp Corrected 32 LAB NAB 132-148 mmol/L Sodium,Whole Bld 136 LAB KWB 3.5-5.0 mmol/L Potassium, Whole Bld 4.0 LAB HGBB 11.5-15.5 g/dL Low Hemoglobin,Total,AC 10.1 L LAB HCTB 36.0-46.0 % Hematocrit, ACL Low 31 LAB IC 1.08-1.30 mmol/L Calcium, Ion, WB 1.16 LAB GLB 60-105 mg/dL Glucose,Whole Bld High 144 LAB LACT 0.5-2.2 mmol/L Lactate 1.6 Performed By: #### VALLBG #### [facility] [address] [place], [place] [address] GASA + ALL Collected: 05/14/2018 Status: F Source: [facility] FOR 7:11 PM [facility] REPOSITORY TYPE CODE TESTS RESULT OUT OF REFERENCE UNITS RANGE LAB PH 7.35-7.45 pH 7.40 LAB PCO2 34-46 mm Hg pCO2 39 LAB PO2 85-95 mm Hg pO2 High 138 LAB BE mmol/L Base Excess NEG 1 LAB HCO3 22-26 mmol/L Bicarbonate 23 LAB CO2CT 22.0-28.0 mmol/L CO2 Content 25 LAB O2HB 95-98 % Oxyhemoglobin, Art. 97 LAB COHB 0-5.0 % Carboxyhemoglobin,A 1.3 rt LAB MHGB 0.4-1.5 % Methemoglobin 1.1 LAB TEMP C Temperature, Body 37.0 LAB PHTC 7.35-7.45 pH, Temp Corrected 7.40 LAB PCO2T 34-46 mm Hg pCO2, Temp Correct 39 LAB PO2T mm Hg pO2, Temp Corrected 138 LAB NAB 132-148 mmol/L Sodium,Whole Bld 136 LAB KWB 3.5-5.0 mmol/L Potassium, Whole Bld 4.2 LAB HGBB 11.5-15.5 g/dL Low Hemoglobin,Total,AC 10.4 L LAB HCTB 36.0-46.0 % Hematocrit, ACL Low 32 LAB IC 1.08-1.30 mmol/L Calcium, Ion, WB 1.25 LAB GLB 60-105 mg/dL Glucose,Whole Bld High 158 LAB LACT 0.5-2.2 mmol/L Lactate 1.8 Performed By: #### ALLBG #### [facility] [address] [place], [place] [address] GASA + ALL Collected: 05/14/2018 Status: F Source: [facility] FOR 6:15 PM [facility] USE ONLY REPOSITORY TYPE CODE TESTS RESULT OUT OF REFERENCE UNITS RANGE LAB PH 7.35-7.45 pH 7.38 LAB PCO2 34-46 mm Hg pCO2 38 LAB PO2 85-95 mm Hg pO2 High 153 LAB BE mmol/L Base Excess NEG 2 LAB HCO3 22-26 mmol/L Bicarbonate 22 LAB CO2CT 22.0-28.0 mmol/L CO2 Content 23 LAB O2HB 95-98 % Oxyhemoglobin, Art. 98 LAB COHB 0-5.0 % Carboxyhemoglobin,A 0.3 rt LAB MHGB 0.4-1.5 % Methemoglobin 0.6 LAB TEMP C Temperature, Body 37.0 LAB PHTC 7.35-7.45 pH, Temp Corrected 7.38 LAB PCO2T 34-46 mm Hg pCO2, Temp Correct 38 LAB PO2T mm Hg pO2, Temp Corrected 153 LAB NAB 132-148 mmol/L Sodium,Whole Bld 135 LAB KWB 3.5-5.0 mmol/L Potassium, Whole Bld 3.8 LAB HGBB 11.5-15.5 g/dL Low Hemoglobin,Total,AC 10.2 L LAB HCTB 36.0-46.0 % Hematocrit, ACL Low 32 LAB IC 1.08-1.30 mmol/L Calcium, Ion, WB 1.21 LAB GLB 60-105 mg/dL Glucose,Whole Bld High 148 LAB LACT 0.5-2.2 mmol/L Lactate 2.1 Performed By: #### ALLBG #### [facility] [address] [place] [address] STAPH AUREUS PCR Collected: 05/14/2018 Status: F Source: [facility] 5:43 PM [facility] REPOSITORY TYPE CODE TESTS RESULT OUT OF REFERENCE UNITS RANGE LAB SASRC Nasal S aureus Spec Source LAB MRSRES Negative for MRSA MRSA by PCR. PCR LAB SARES Negative for Staph Staphylococcus aureus PCR aureus by PCR. Performed By: #### SAPCR #### [facility] [address] [place] [address] GASA + ALL Collected: 05/14/2018 Status: F Source: [facility] FOR 5:23 PM [facility] RADIANCE USE ONLY REPOSITORY TYPE CODE TESTS RESULT OUT OF REFERENCE UNITS RANGE LAB PH 7.35-7.45 pH 7.36 LAB PCO2 34-46 mm Hg pCO2 43 LAB PO2 85-95 mm Hg pO2 High 186 LAB BE mmol/L Base Excess NEG 1 LAB HCO3 22-26 mmol/L Bicarbonate 24 LAB CO2CT 22.0-28.0 mmol/L CO2 Content 25 LAB O2HB 95-98 % Oxyhemoglobin, Art. 97 LAB COHB 0-5.0 % Carboxyhemoglobin,A 1.3 rt LAB MHGB 0.4-1.5 % Methemoglobin 0.9 LAB TEMP C Temperature, Body 37.0 LAB PHTC 7.35-7.45 pH, Temp Corrected 7.36 LAB PCO2T 34-46 mm Hg pCO2, Temp Correct 43 LAB PO2T mm Hg pO2, Temp Corrected 186 LAB NAB 132-148 mmol/L Sodium,Whole Bld 134 LAB KWB 3.5-5.0 mmol/L Potassium, Whole Bld 3.9 LAB HGBB 11.5-15.5 g/dL Low Hemoglobin,Total,AC 10.9 L LAB HCTB 36.0-46.0 % Hematocrit, ACL Low 34 LAB IC 1.08-1.30 mmol/L Calcium, Ion, WB 1.21 LAB GLB 60-105 mg/dL Glucose,Whole Bld High 187 LAB LACT 0.5-2.2 mmol/L Lactate 2.0 Performed By: #### ALLBG #### [facility] [address] [place], [place] [address] CBC Collected: 05/14/2018 Status: F Source: [facility] 5:15 PM [facility] REPOSITORY TYPE CODE TESTS RESULT OUT OF REFERENCE UNITS RANGE LAB WBC 3.70-11.00 k/uL WBC High 14.37 LAB RBC 3.90-5.20 m/uL RBC 3.91 LAB HGB 11.5-15.5 g/dL Low Hemoglobin 10.6 LAB HCT 36.0-46.0 % Low Hematocrit 32.5 LAB MCV 80.0-100.0 fL MCV 83.1 LAB MCH 26.0-34.0 pG MCH 27.1 LAB MCHC 30.5-36.0 g/dL MCHC 32.6 LAB RDWCV 11.5-15.0 % RDW-CV High 16.7 LAB PLTCT 150-400 k/uL Low Platelet Count 141 LAB MPV 9.0-12.7 fL MPV 11.2 LAB ABSNUC <0.01 k/uL Absolute High nRBC 0.02 Performed By: #### CBC, FIBCT, PT, PTT #### [facility] [address] [place], [place] [address] FIBRINOGEN Collected: 05/14/2018 Status: F Source: [facility] 5:15 PM [facility] REPOSITORY TYPE CODE TESTS RESULT OUT OF REFERENCE UNITS RANGE LAB FIBCT 200-400 mg/dL Fibrinogen 220 Performed By: #### CBC, FIBCT, PT, PTT #### [facility] [address] [place], [place] [address] PROTIME Collected: 05/14/2018 Status: F Source: [facility] 5:15 PM [facility] REPOSITORY TYPE CODE TESTS RESULT OUT OF RANGE REFERENCE UNITS LAB PSEC 9.7-13.0 sec PT Sec 12.4 LAB INR 0.9-1.3 PT INR 1.2 Result Comment: Vitamin K Antagonist (VKA) Therapeutic Range: INR 2 to 3 (Target INR of 2.5) Note: For patients treated with VKA drugs, such as warfarin, the [employer] 2012 Guideline recommends a therapeutic INR range of 2 to 3 (target INR of 2.5). This recommendation includes high-risk patients with antiphospholipid syndrome with previous arterial or venous thromboembolism, current-generation mechanical or bioprosthetic aortic heart valve replacement. Note: Patients with mechanical aortic valve replacement and additional risk factors for thromboembolic events (atrial fibrillation, previous thromboembolism, LV dysfunction, hypercoagulable conditions) or an older generation mechanical AVR (i.e., ball in-Cage) or any mechanical MVR should have a INR therapeutic range of 2.5 to 3.5 (target INR of 3). Joe BARBER, et al. Chest 2012, 141:7S-47S Catie RA, et al. JACC 2017, 70: 252-289 Performed By: #### CBC, FIBCT, PT, PTT #### [facility] [address] [place], [place] [address] APTT Collected: 05/14/2018 Status: F Source: [facility] 5:15 PM [facility] REPOSITORY TYPE CODE TESTS RESULT OUT OF RANGE REFERENCE UNITS LAB APTT 23.0-32.4 sec High APTT 34.4 Result Comment: Unfractionated Heparin Therapeutic Ranges: Standard Heparin Nomogram: 53 to 78 seconds (anti-Xa level of 0.3 to 0.7 U/ml) Low Dose/ACS Nomogram: 49 to 67 seconds (anti-Xa level of 0.2 to 0.5 U/ml) Stroke Treatment Nomogram: 49 to 67 seconds (anti-Xa level of 0.2 to 0.5 U/ml) Note: The APTT therapeutic range has been determined for the current lot of laboratory APTT reagent in use throughout the [employer]. Performed By: #### CBC, FIBCT, PT, PTT #### [facility] [address] [place], [place] [address] PROGRESS Observed: 05/14/2018 Status: COMPLETED Source: [facility] 4:29 PM [facility] REPOSITORY HNO ID: [id number] Author: Jazmin Mejia Service: Critical Care Author Type: Nurse Practitioner Type: Progress Notes Filed: 05/14/2018 4:33 PM Note Text: [facility] Admission Note Name: Flavia Case Principal Diagnosis: Coronary artery disease involving [place] coronary artery of [place] heart with unstable angina pectoris (HCC) Indication for Surgery: CAD, , MR, TR, AF Preop LVEF: 71% RVF: Normal Postop LVEF: Normal RVF: Normal Important/Relevant PMH/PSH: CAD, , MR, TR, AF, s/p CABG 1996, s/p AVR with mechanical valve 2005, acute on chronic diastolic HF, Squamous cell lung CA s/p rads, DM, COPD Preoperative Hospital Course: Airway Difficulty: Grade I - No special instrumentation Pacing Wires: Yes: Atrial and Ventricular: When discontinuing pacing wires: Pull all pacing wires Chronological List of Surgeries and Major Events (Diagnosis): (Surgeries in bold characters) 05/14/2018: Redo CABG X 2 SVG-OM, SVG-RCA (prior patent SHELBY- LAD), AVR with 23 CE Inspiris, MVr with 27 Hyde band, TVr with Tia stitch, Biatrial cryoMaze (no CHARLES ligation) A/P of Major Active Problems (excluding routine care and common problems): Neuro: Sedation Cardiac: Junctional bradycardia requiring DDD pacing, continue DDD at 80 bpm A MA 18, V MA 7. Acute on chronic diastolic HF, requiring Epi infusion, titrate to maintain CI > 2.2 Pulmonary: Post op atelectasis. Continue lung protective ventilation, WTE. Initiate PEP upon extubation. Renal: Post op fluid shifts. IVF resuscitation as needed. Endo: Perioperative insulin resistance and exacerbation of hyperglycemia, continue RHI infusion to maintain BG <180 Lines:05/14/2018 L RADHA MAL, RIJ PA catheter To Do or to Watch: WTE Junctional bradycardia- DDD pacing. High thresholds for A wires Discharge Planning: Anticipated Discharge Date: Unknown Barriers to Discharge: Unknown Care Management Discharge Needs: Needs Prior to Discharge: To Be Determined Additional Hospital Problems Problem Mr (Mitral Regurgitation) 05/14/2018 Redo MVr with 27 Hyde band A/P: ASA Tricuspid Regurgitation 05/14/2018 Redo TVr with Tia stitch A/P: ASA Coronary Artery Disease Involving [place] Coronary Artery of [place] Heart With Unstable Angina Pectoris ([facility]) History of CABG 1997 05/14/2018 Redo CABG X 2 SVG-OM, SVG-RCA (prior patent SHELBY-LAD) CAD Core Measures: Aspirin: Yes Beta blockers: No - due to not indicated at this time Statins: Reassess for Best Practices prior to hospital discharge Paf (Paroxysmal Atrial Fibrillation) ([facility]) History of PAF-on coumadin 05/14/2018 Redo sternotomy Biatrial cryoMaze (no CHARLES ligation) A/P: Currently junctional bradycardia, HR 40s. Continue DDD pacing at 80 bpm Nonrheumatic Aortic Valve Stenosis History of AVR with mechanical valve 200505/14/2018 Redo AVR with 23 CE Inspiris A/P: ASA On Mechanically Assisted Ventilation ([facility]) A/P: Grade I airway. WTE Atelectasis A/P: Post op atelectasis. Continue lung protective ventilation, WTE. Initiate PEP upon extubation. Copd (Chronic Obstructive Pulmonary Disease) ([facility]) A/P: Start duonebs scheduled, resume prednisone 40 mg QD X 3 days duration Junctional Bradycardia A/P: Junctional bradycardia requiring DDD pacing, continue DDD at 80 bpm A MA 18, V MA 7 Acute On Chronic Diastolic Heart Failure (Hcc) A/P: Requiring Epi post CPB, titrate to maintain CI > 2.2 Hyperlipemia A/P: Resume statin once appropriate Acute Post-Operative Pain A/P: Appears comfortable. 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 Type 2 Diabetes Mellitus With Complication, Without Long-Term Current Use of Insulin ([facility]) A/P: Perioperative insulin resistance and exacerbation of hyperglycemia, continue RHI infusion to maintain BG <180 Hypovolemia A/P: Post op fluid shifts. IVF resuscitation as needed Infusions: Epinephrine Insulin Propofol CVICU Admission ECG: Reviewed CVICU Admission CXR: Reviewed Neuro: Sedation . Cardiovascular: Rhythm: underlying junctional bradycardia, DDD pacing at 80 MAP: 71 mmHg Cardiac Index: 2.5 L/min/m2 Pacemaker : Temporary Epicardial - Pacing Mode: DDD ICD: No Peripheral pulses present: All present Pulmonary: Clear to auscultation, Breath sounds equal and Diminished breath sounds, bilateral bases Ventilator: Intubated Potential prolonged intubation : No Abdominal: Soft Continued need for urinary catheter: Yes - clinical indication: Patient post major surgery requiring fluid balance and input and output measurement. DAY OF SURGERY PLAN: Standard Protocol, intubated patient: Cardiovascular monitoring, stabilization of blood pressure and cardiac function, wean to extubate when ready per protocol. Pain control, glycemic control, DVT prophylaxis, antibiotic prophylaxis. This patient has a high probability of sudden, clinically significant deterioration, which requires the highest level of preparedness to intervene urgently. I participated in the decision making and personally managed or directed the management of the following life and organ supporting interventions that required my frequent assessment to treat or prevent imminent deterioration of: Problem Mr (Mitral Regurgitation) Tricuspid Regurgitation Coronary Artery Disease Involving Chitina Coronary Artery of [place] Heart With Unstable Angina Pectoris (Hcc) Paf (Paroxysmal Atrial Fibrillation) ([facility]) Nonrheumatic Aortic Valve Stenosis On Mechanically Assisted Ventilation (Hcc) Atelectasis Copd (Chronic Obstructive Pulmonary Disease) (Hcc) Junctional Bradycardia Acute On Chronic Diastolic Heart Failure (Hcc) Hyperlipemia Acute Post-Operative Pain Type 2 Diabetes Mellitus With Complication, Without Long-Term Current Use of Insulin (Hcc) Hypovolemia History of Mechanical Aortic Valve Replacement (Resolved) I personally spent 30 minutes of critical care time treating the patient. Time devoted to any procedures I billed separately is not included. SIGNATURE: Jazmin Mejia APRN.CNP DATE of SERVICE: 05/14/2018 TIME of SERVICE: 4:30 PM GASA + ALL Collected: 05/14/2018 Status: F Source: [facility] 4:29 PM [facility] RADIANCE USE ONLY REPOSITORY TYPE CODE TESTS RESULT OUT OF REFERENCE UNITS RANGE LAB PH 7.35-7.45 pH Low 7.33 LAB PCO2 34-46 mm Hg pCO2 High 47 LAB PO2 85-95 mm Hg pO2 88 LAB BE mmol/L Base Excess NEG 2 LAB HCO3 22-26 mmol/L Bicarbonate 24 LAB CO2CT 22.0-28.0 mmol/L CO2 Content 25 LAB O2HB 95-98 % Oxyhemoglobin, Low Art. 94 LAB COHB 0-5.0 % Carboxyhemoglobin,A 1.7 rt LAB MHGB 0.4-1.5 % Methemoglobin 0.4 LAB TEMP C Temperature, Body 37.0 LAB PHTC 7.35-7.45 pH, Temp Low Corrected 7.33 LAB PCO2T 34-46 mm Hg pCO2, Temp High Correct 47 LAB PO2T mm Hg pO2, Temp Corrected 88 LAB NAB 132-148 mmol/L Sodium,Whole Bld 135 LAB KWB 3.5-5.0 mmol/L Potassium, Whole Bld 3.7 LAB HGBB 11.5-15.5 g/dL Low Hemoglobin,Total,AC 10.5 L LAB HCTB 36.0-46.0 % Hematocrit, ACL Low 32 LAB IC 1.08-1.30 mmol/L Calcium, Ion, WB 1.25 LAB GLB 60-105 mg/dL Glucose,Whole Bld High 211 LAB LACT 0.5-2.2 mmol/L Lactate 2.1 Performed By: #### ALLBG #### [facility] [address] [place], [place] [address] XR CHEST 1V FRONTAL Observed: 05/14/2018 Status: F Source: [facility] 4:19 PM [facility] REPOSITORY * * *Final Report* * * DATE OF EXAM: May 14 2018 4:19PM JIX [id number] - XR CHEST 1V FRONTAL PORT / PROCEDURE REASON: Post-operative / post-procedure assessment, asymptomatic * * * * Physician Interpretation * * * * EXAMINATION: CHEST RADIOGRAPH (PORTABLE SINGLE VIEW AP) Exam Date/Time: 05/14/2018 4:19 PM Clinical History: Post-operative / post-procedure assessment, asymptomatic, MQ: [id number] Comparison: 05/09/2018 RESULT: See impression. IMPRESSION: Lines, tubes, and devices: Interval redo median sternotomy. Support devices are unremarkable. Lungs and pleura: Development of basilar atelectatic changes, left more than right. Superimposed infiltrates/infection or edema cannot be entirely excluded. There is blunting of the left CP angle which may represent tiny effusion or pleural thickening. No significant pneumothorax. Cardiomediastinal silhouette: Stable cardiomediastinal silhouette. Other: . Tax Associate Attorney: PSCB Transcribe Date/Time: May 14 2018 4:38P Dictated by : GIOVANY KRAUSE MD This examination was interpreted and the report reviewed and electronically signed by: GIOVANY KRAUSE MD on May 14 2018 4:39PM EST [id number] OP NOT Observed: 05/14/2018 Status: COMPLETED Source: [facility] 3:18 PM [facility] REPOSITORY O ID: [id number] Author: Chad Villa Service: Cardiac Surgery Author Type: Resident Type: Brief Op Note Filed: 05/14/2018 3:21 PM Note Text: CARDIOTHORACIC BRIEF OP NOTE LOG ID: [id number] SURGERY/PROCEDURE DATE: 05/14/2018 INCISION/PROCEDURE START TIME: 8:19 AM INCISION CLOSE/PROCEDURE END TIME: SURGEON(S) 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): Surgeon(s) and Role: * Marj Vargas - Primary * Chad Villa - Resident - Assisting Registered Nurse Weed Sprayer: Lesli (Rn) Nato, RN; Dori (Rn) KOKO AmbrocioFILLER IN AND ANESTHESIA: Redo CABGx2, AVR, MVr, TVr, Maze Great Saphenous Vein, Right, Percutaneous endoscopic ANESTHESIA: General BRIEF FINDINGS: Redo sternotomy Mechanical prosthetic aortic valve stenosis SVG-OM, SVG-RCA (prior patent SHELBY-LAD) AVR with 23 CE Inspiris MVr with 27 Hyde band TVr with Tia stitch Biatrial cryoMaze (no CHARLES ligation) Mediastinal and right pleural tubes A- and V-wires (pull) PREOPERATIVE DIAGNOSIS: atrial fibrillation, aortic stenosis, coronary artery disease, mitral insufficiency and tricuspid insufficiency POSTOPERATIVE DIAGNOSIS: atrial fibrillation, aortic stenosis, coronary artery disease, mitral insufficiency and tricuspid insufficiency ESTIMATED BLOOD LOSS: 500 ml SPECIMENS: Specimen ID Type Site Comments Sent To 1 (path) - explanted prosthetic aortic valve Explant Heart Valve Aortic Prepared by:EILEEN/SONY; Taken by: [facility] Pathology Routine COMPLICATIONS: None SIGNATURE: Chad Villa MD PATIENT NAME: Flavia Case DATE: May 14, 2018 TIME: 3:18 PM PAGER/CONTACT #: [phone] GASA + ALL Collected: 05/14/2018 Status: F Source: [facility] FOR 2:54 PM [facility] USE ONLY REPOSITORY TYPE CODE TESTS RESULT OUT OF REFERENCE UNITS RANGE LAB PH 7.35-7.45 pH 7.36 LAB PCO2 34-46 mm Hg pCO2 41 LAB PO2 85-95 mm Hg pO2 High 319 LAB BE mmol/L Base Excess NEG 2 LAB HCO3 22-26 mmol/L Bicarbonate 23 LAB CO2CT 22.0-28.0 mmol/L CO2 Content 24 LAB O2HB 95-98 % Oxyhemoglobin, Art. 97 LAB COHB 0-5.0 % Carboxyhemoglobin,A 1.6 rt LAB MHGB 0.4-1.5 % Methemoglobin 1.3 LAB TEMP C Temperature, Body 37.0 LAB PHTC 7.35-7.45 pH, Temp Corrected 7.36 LAB PCO2T 34-46 mm Hg pCO2, Temp Correct 41 LAB PO2T mm Hg pO2, Temp Corrected 319 LAB NAB 132-148 mmol/L Sodium,Whole Bld 135 LAB KWB 3.5-5.0 mmol/L Potassium, Whole Bld 3.5 LAB HGBB 11.5-15.5 g/dL Low Hemoglobin,Total,AC 8.2 L LAB HCTB 36.0-46.0 % Hematocrit, ACL Low 26 LAB IC 1.08-1.30 mmol/L Calcium, Ion, WB 1.11 LAB GLB 60-105 mg/dL Glucose,Whole Bld High 298 LAB LACT 0.5-2.2 mmol/L Lactate High 3.6 Performed By: #### ALLBG #### [facility] [address] [place] [phone] GASA + ALL Collected: 05/14/2018 Status: F Source: [facility] FOR 2:11 PM [facility] RADIANCE USE ONLY REPOSITORY TYPE CODE TESTS RESULT OUT OF REFERENCE UNITS RANGE LAB PH 7.35-7.45 pH Low 7.33 LAB PCO2 34-46 mm Hg pCO2 42 LAB PO2 85-95 mm Hg pO2 High 297 LAB BE mmol/L Base Excess NEG 4 LAB HCO3 22-26 mmol/L Bicarbonate 22 LAB CO2CT 22.0-28.0 mmol/L CO2 Content 23 LAB O2HB 95-98 % Oxyhemoglobin, Art. 97 LAB COHB 0-5.0 % Carboxyhemoglobin, 1.2 Art LAB MHGB 0.4-1.5 % Methemoglobin 1.2 LAB TEMP C Temperature, Body 37.0 LAB PHTC 7.35-7.45 pH, Temp Low Corrected 7.33 LAB PCO2T 34-46 mm Hg pCO2, Temp Correct 42 LAB PO2T mm Hg pO2, Temp Corrected 297 LAB NAB 132-148 mmol/L Sodium,Whole Bld 133 LAB KWB 3.5-5.0 mmol/L Potassium, Whole Bld 3.7 LAB HGBB 11.5-15.5 g/dL Low Hemoglobin,Total,A 8.0 CL LAB HCTB 36.0-46.0 % Hematocrit, Low ACL 25 LAB IC 1.08-1.30 mmol/L Calcium, Ion, High WB 1.32 LAB GLB 60-105 mg/dL Glucose,Whole High Bld 331 LAB LACT 0.5-2.2 mmol/L Lactate High 3.8 LAB ACBDTE Notify Date, Art [id number] LAB ACBTME Notify Time, Art Performed By: #### ALLBG #### [facility] [address] [place], [place] [address] GASA + ALL Collected: 05/14/2018 Status: F Source: ARARAT FOR 1:15 PM [facility] USE [facility] REPOSITORY TYPE CODE TESTS RESULT OUT OF REFERENCE UNITS RANGE LAB PH 7.35-7.45 pH 7.36 LAB PCO2 34-46 mm Hg pCO2 43 LAB PO2 85-95 mm Hg pO2 High 292 LAB BE mmol/L Base Excess NEG 1 LAB HCO3 22-26 mmol/L Bicarbonate 24 LAB CO2CT 22.0-28.0 mmol/L CO2 Content 25 LAB O2HB 95-98 % Oxyhemoglobin, Art. 98 LAB COHB 0-5.0 % Carboxyhemoglobin, 0.8 Art LAB MHGB 0.4-1.5 % Methemoglobin 0.8 LAB TEMP C Temperature, Body 37.0 LAB PHTC 7.35-7.45 pH, Temp Corrected 7.36 LAB PCO2T 34-46 mm Hg pCO2, Temp Correct 43 LAB PO2T mm Hg pO2, Temp Corrected 292 LAB NAB 132-148 mmol/L Sodium,Whole Bld 132 LAB KWB 3.5-5.0 mmol/L Potassium, Whole Bld 4.7 LAB HGBB 11.5-15.5 g/dL Low Hemoglobin,Total,A 8.2 CL LAB HCTB 36.0-46.0 % Hematocrit, Low ACL 25 LAB IC 1.08-1.30 mmol/L Calcium, Ion, Low WB 1.07 LAB GLB 60-105 mg/dL Glucose,Whole High Bld 291 LAB LACT 0.5-2.2 mmol/L Lactate High 3.2 LAB ACBDTE Notify Date, Art [id number] LAB ACBTME Notify Time, Art Performed By: #### ALLBG #### [facility] [address] [place], [place] [address] THROMBOGRAPH HEPASE Collected: 05/14/2018 Status: F Source: ARARAT 1:14 PM [facility] REPOSITORY TYPE CODE TESTS RESULT OUT OF REFERENCE UNITS RANGE LAB RTEGH 4.0-10.0 min R Value High (Hep) 11.4 LAB MATEGH 51.0-69.0 mm Maximum Amplit (Hep) 64.1 LAB DEGANH 47.0-74.0 deg Degree Angle (Hep) 53.3 LAB LY30H 0.0-5.0 % Lysis Time High 30 (Hep) 7.1 LAB CITEGH Coagulation Ind(Hep) NEG 5 Result Comment: (NOTE) Reference Range: NEG 4 to 2 The Coagulation Index, a secondary parameter, is labeled by the apns as for research use only and is used per the apns's instructions. Its performance characteristics were determined by [facility] [place] in a manner consistent with CLIA requirements. This test has not been cleared by the U.S. Food and Drug Administration. LAB TEGINH Thrombograph Int(Hep) (NOTE) Result Comment: Performing Pathologist: Jacqueline Chatterjee Interpretation: Abnormal - see comment below. A thromboelastograph (TEG) study was performed using citrate-anticoagulated whole blood treated with heparinase to neutralize a heparin effect. The R value, a measure of coagulation function, is prolonged. This indicates coagulation hypofunction. The Maximal Amplitude (MA), a measure of platelet function, is within the normal range. The Angle, a measure of fibrinogen function, is within the normal range. This is indicative of normal fibrinogen concentration or function. The Ly30, a measure of fibrinolysis function, is prolonged. This is indicative of increased fibrinolytic function. The Coagulation Index (CI), a measure of hemostasis function, is decreased. The CI is a calculated parameter based on the other TEG results. Performed By: #### TEGHPP #### [facility] [address] [place], [place] [address] GASA + ALL Collected: 05/14/2018 Status: F Source: ARARAT FOR 12:36 PM [facility] USE ONLY REPOSITORY TYPE CODE TESTS RESULT OUT OF REFERENCE UNITS RANGE LAB PH 7.35-7.45 pH Low 7.34 LAB PCO2 34-46 mm Hg pCO2 42 LAB PO2 85-95 mm Hg pO2 High 299 LAB BE mmol/L Base Excess NEG 3 LAB HCO3 22-26 mmol/L Bicarbonate 23 LAB CO2CT 22.0-28.0 mmol/L CO2 Content 24 LAB O2HB 95-98 % Oxyhemoglobin, Art. 98 LAB COHB 0-5.0 % Carboxyhemoglobin, 1.7 Art LAB MHGB 0.4-1.5 % Methemoglobin 0.8 LAB TEMP C Temperature, Body 37.0 LAB PHTC 7.35-7.45 pH, Temp Low Corrected 7.34 LAB PCO2T 34-46 mm Hg pCO2, Temp Correct 42 LAB PO2T mm Hg pO2, Temp Corrected 299 LAB NAB 132-148 mmol/L Sodium,Whole Bld 134 LAB KWB 3.5-5.0 mmol/L Potassium, Whole Bld 4.7 LAB HGBB 11.5-15.5 g/dL Low Hemoglobin,Total,A 8.2 CL LAB HCTB 36.0-46.0 % Hematocrit, Low ACL 26 LAB IC 1.08-1.30 mmol/L Calcium, Ion, WB 1.12 LAB GLB 60-105 mg/dL Glucose,Whole High Bld 300 LAB LACT 0.5-2.2 mmol/L Lactate High 3.7 LAB ACBDTE Notify Date, Art [id number] LAB ACBTME Notify Time, Art [id number] Performed By: #### ALLBG #### [facility] [address] [place], [place] [address] FIBRINOGEN Collected: 05/14/2018 Status: F Source: ARARAT 12:13 PM [facility] REPOSITORY TYPE CODE TESTS RESULT OUT OF REFERENCE UNITS RANGE LAB FIBCT 200-400 mg/dL Low Fibrinogen 165 Performed By: #### FIBCT #### [facility] [address] [place], [place] [address] GASA + ALL Collected: 05/14/2018 Status: F Source: ARARAT FOR 11:49 AM [facility] USE ONLY REPOSITORY TYPE CODE TESTS RESULT OUT OF REFERENCE UNITS RANGE LAB PH 7.35-7.45 pH 7.36 LAB PCO2 34-46 mm Hg pCO2 43 LAB PO2 85-95 mm Hg pO2 High 389 LAB BE mmol/L Base Excess NEG 1 LAB HCO3 22-26 mmol/L Bicarbonate 24 LAB CO2CT 22.0-28.0 mmol/L CO2 Content 25 LAB O2HB 95-98 % Oxyhemoglobin, Art. 98 LAB COHB 0-5.0 % Carboxyhemoglobin, 1.7 Art LAB MHGB 0.4-1.5 % Methemoglobin 0.6 LAB TEMP C Temperature, Body 37.0 LAB PHTC 7.35-7.45 pH, Temp Corrected 7.36 LAB PCO2T 34-46 mm Hg pCO2, Temp Correct 43 LAB PO2T mm Hg pO2, Temp Corrected 389 LAB NAB 132-148 mmol/L Sodium,Whole Low Bld 130 LAB KWB 3.5-5.0 mmol/L Potassium, Whole Bld 4.5 LAB HGBB 11.5-15.5 g/dL Low Hemoglobin,Total,A 7.3 CL LAB HCTB 36.0-46.0 % Hematocrit, Low ACL 23 LAB IC 1.08-1.30 mmol/L Calcium, Ion, Low WB 1.07 LAB GLB 60-105 mg/dL Glucose,Whole High Bld 281 LAB LACT 0.5-2.2 mmol/L Lactate High 3.7 LAB ACBDTE Notify Date, Art [id number] LAB ACBTME Notify Time, Art [id number] Performed By: #### ALLBG #### [facility] [address] [place], [place] [address] GASA + ALL Collected: 05/14/2018 Status: F Source: ARARAT FOR 11:13 AM [facility] USE ONLY REPOSITORY TYPE CODE TESTS RESULT OUT OF REFERENCE UNITS RANGE LAB PH 7.35-7.45 pH 7.40 LAB PCO2 34-46 mm Hg pCO2 37 LAB PO2 85-95 mm Hg pO2 High 215 LAB BE mmol/L Base Excess NEG 2 LAB HCO3 22-26 mmol/L Bicarbonate 22 LAB CO2CT 22.0-28.0 mmol/L CO2 Content 23 LAB O2HB 95-98 % Oxyhemoglobin, Art. 97 LAB COHB 0-5.0 % Carboxyhemoglobin, 1.8 Art LAB MHGB 0.4-1.5 % Methemoglobin 0.7 LAB TEMP C Temperature, Body 37.0 LAB PHTC 7.35-7.45 pH, Temp Corrected 7.40 LAB PCO2T 34-46 mm Hg pCO2, Temp Correct 37 LAB PO2T mm Hg pO2, Temp Corrected 215 LAB NAB 132-148 mmol/L Sodium,Whole Low Bld 131 LAB KWB 3.5-5.0 mmol/L Potassium, Whole Bld 4.4 LAB HGBB 11.5-15.5 g/dL Low Hemoglobin,Total,A 8.2 CL LAB HCTB 36.0-46.0 % Hematocrit, Low ACL 25 LAB IC 1.08-1.30 mmol/L Calcium, Ion, WB 1.09 LAB GLB 60-105 mg/dL Glucose,Whole High Bld 272 LAB LACT 0.5-2.2 mmol/L Lactate High 3.3 LAB ACBDTE Notify Date, Art [id number] LAB ACBTME Notify Time, Art [id number] Performed By: #### ALLBG #### [facility] [address] [place], [place] [address] GASV + ALL Collected: 05/14/2018 Status: F Source: ARARAT 10:33 AM [facility] REPOSITORY TYPE CODE TESTS RESULT OUT OF REFERENCE UNITS RANGE LAB VPH 7.32-7.42 pH 7.33 LAB VPC2 42-55 mm Hg pCO2 49 LAB VPO2 35-45 mm Hg pO2 High 48 LAB VBE mmol/L Base Excess 0 LAB VHC3 24-28 mmol/L Bicarbonate 25 LAB VC2C 25-29 mmol/L CO2 Content 27 LAB O2HBCX 60-85 % Oxyhemoglobin, Ld. 76 LAB CO <2.0 % Carboxyhemoglobin, 1.5 Ld LAB METHB 0.4-1.5 % Methemoglobin 0.9 LAB VTMP C Temperature, Body 37.0 LAB VPHTC 7.32-7.42 pH, Temp Corrected 7.33 LAB VPC2T mm Hg pCO2, Temp Correct 49 LAB VPO2T mm Hg pO2, Temp Corrected 48 LAB NAB 132-148 mmol/L Sodium,Whole Bld 134 LAB KWB 3.5-5.0 mmol/L Potassium, Whole Bld 4.2 LAB HGBB 11.5-15.5 g/dL Low Hemoglobin,Total,A 8.7 CL LAB HCTB 36.0-46.0 % Hematocrit, Low ACL 27 LAB IC 1.08-1.30 mmol/L Calcium, Ion, WB 1.12 LAB GLB 60-105 mg/dL Glucose,Whole High Bld 218 LAB LACT 0.5-2.2 mmol/L Lactate High 2.8 LAB VCBDTE Notify Date, Ld [id number] LAB VCBTME Notify Time, Ld Performed By: #### VALLBG #### [facility] [address] [place], [place] [address] GASA + ALL Collected: 05/14/2018 Status: F Source: ARARAT FOR 10:30 AM [facility] USE ONLY REPOSITORY TYPE CODE TESTS RESULT OUT OF REFERENCE UNITS RANGE LAB PH 7.35-7.45 pH 7.39 LAB PCO2 34-46 mm Hg pCO2 40 LAB PO2 85-95 mm Hg pO2 High 329 LAB BE mmol/L Base Excess NEG 1 LAB HCO3 22-26 mmol/L Bicarbonate 24 LAB CO2CT 22.0-28.0 mmol/L CO2 Content 25 LAB O2HB 95-98 % Oxyhemoglobin, Art. 98 LAB COHB 0-5.0 % Carboxyhemoglobin, 1.4 Art LAB MHGB 0.4-1.5 % Methemoglobin 0.8 LAB TEMP C Temperature, Body 37.0 LAB PHTC 7.35-7.45 pH, Temp Corrected 7.39 LAB PCO2T 34-46 mm Hg pCO2, Temp Correct 40 LAB PO2T mm Hg pO2, Temp Corrected 329 LAB NAB 132-148 mmol/L Sodium,Whole Bld 134 LAB KWB 3.5-5.0 mmol/L Potassium, Whole Bld 4.1 LAB HGBB 11.5-15.5 g/dL Low Hemoglobin,Total,A 8.8 CL LAB HCTB 36.0-46.0 % Hematocrit, Low ACL 27 LAB IC 1.08-1.30 mmol/L Calcium, Ion, WB 1.09 LAB GLB 60-105 mg/dL Glucose,Whole High Bld 219 LAB LACT 0.5-2.2 mmol/L Lactate High 2.8 LAB ACBDTE Notify Date, Art [id number] LAB ACBTME Notify Time, Art Performed By: #### ALLBG #### [facility] [address] [place] [address] GASA + ALL Collected: 05/14/2018 Status: F Source: ARARAT FOR 9:47 AM [facility] USE ONLY REPOSITORY TYPE CODE TESTS RESULT OUT OF REFERENCE UNITS RANGE LAB PH 7.35-7.45 pH Low 7.33 LAB PCO2 34-46 mm Hg pCO2 46 LAB PO2 85-95 mm Hg pO2 High 200 LAB BE mmol/L Base Excess NEG 2 LAB HCO3 22-26 mmol/L Bicarbonate 23 LAB CO2CT 22.0-28.0 mmol/L CO2 Content 25 LAB O2HB 95-98 % Oxyhemoglobin, Art. 98 LAB COHB 0-5.0 % Carboxyhemoglobin, 1.5 Art LAB MHGB 0.4-1.5 % Methemoglobin 0.7 LAB TEMP C Temperature, Body 37.0 LAB PHTC 7.35-7.45 pH, Temp Low Corrected 7.33 LAB PCO2T 34-46 mm Hg pCO2, Temp Correct 46 LAB PO2T mm Hg pO2, Temp Corrected 200 LAB NAB 132-148 mmol/L Sodium,Whole Bld 134 LAB KWB 3.5-5.0 mmol/L Potassium, Whole Bld 4.4 LAB HGBB 11.5-15.5 g/dL Low Hemoglobin,Total,A 10.7 CL LAB HCTB 36.0-46.0 % Hematocrit, Low ACL 33 LAB IC 1.08-1.30 mmol/L Calcium, Ion, WB 1.20 LAB GLB 60-105 mg/dL Glucose,Whole High Bld 219 LAB LACT 0.5-2.2 mmol/L Lactate High 2.4 LAB ACBDTE Notify Date, Art [id number] LAB ACBTME Notify Time, Art Performed By: #### ALLBG #### [facility] [address] [place], [place] [address] JARRELL TRIANA, MG Collected: 05/14/2018 Status: F Source: ARARAT FOR 7:22 AM [facility] USE ONLY REPOSITORY TYPE CODE TESTS RESULT OUT OF REFERENCE UNITS RANGE LAB PH 7.35-7.45 pH 7.42 LAB PCO2 34-46 mm Hg pCO2 37 LAB PO2 85-95 mm Hg pO2 High 243 LAB BE mmol/L Base Excess 0 LAB HCO3 22-26 mmol/L Bicarbonate 24 LAB CO2CT 22.0-28.0 mmol/L CO2 Content 25 LAB O2HB 95-98 % Oxyhemoglobin, Art. 97 LAB COHB 0-5.0 % Carboxyhemoglobin,A 1.3 rt LAB MHGB 0.4-1.5 % Methemoglobin 1.0 LAB TEMP C Temperature, Body 37.0 LAB PHTC 7.35-7.45 pH, Temp Corrected 7.42 LAB PCO2T 34-46 mm Hg pCO2, Temp Correct 37 LAB PO2T mm Hg pO2, Temp Corrected 243 LAB NAB 132-148 mmol/L Sodium,Whole Bld 137 LAB KWB 3.5-5.0 mmol/L Potassium, Whole Bld 4.3 LAB HGBB 11.5-15.5 g/dL Low Hemoglobin,Total,AC 10.9 L LAB HCTB 36.0-46.0 % Hematocrit, ACL Low 34 LAB IC 1.08-1.30 mmol/L Calcium, Ion, WB 1.25 LAB GLB 60-105 mg/dL Glucose,Whole Bld High 176 LAB LACT 0.5-2.2 mmol/L Lactate 1.6 LAB MGI 0.43-0.66 mmol/L Magnesium, Ion, WB 0.57 Performed By: #### ALLMG #### [facility] [address] [place], [place] [address] CBC Collected: 05/14/2018 Status: F Source: ARARAT 4:08 AM [facility] REPOSITORY TYPE CODE TESTS RESULT OUT OF REFERENCE UNITS RANGE LAB WBC 3.70-11.00 k/uL WBC 7.30 LAB RBC 3.90-5.20 m/uL RBC 4.20 LAB HGB 11.5-15.5 g/dL Low Hemoglobin 11.3 LAB HCT 36.0-46.0 % Low Hematocrit 35.3 LAB MCV 80.0-100.0 fL MCV 84.0 LAB MCH 26.0-34.0 pG MCH 26.9 LAB MCHC 30.5-36.0 g/dL MCHC 32.0 LAB RDWCV 11.5-15.0 % RDW-CV High 16.2 LAB PLTCT 150-400 k/uL Platelet Count 209 LAB MPV 9.0-12.7 fL MPV 11.0 LAB ABSNUC <0.01 k/uL Absolute nRBC <0.01 Performed By: #### CBC, PT, PTTAC #### [facility] [address] [place], [place] [address] PROTIME Collected: 05/14/2018 Status: F Source: ARARAT 4:08 AM [facility] REPOSITORY TYPE CODE TESTS RESULT OUT OF RANGE REFERENCE UNITS LAB PSEC 9.7-13.0 sec PT Sec 11.7 LAB INR 0.9-1.3 PT INR 1.1 Result Comment: Vitamin K Antagonist (VKA) Therapeutic Range: INR 2 to 3 (Target INR of 2.5) Note: For patients treated with VKA drugs, such as warfarin, the [employer] 2012 Guideline recommends a therapeutic INR range of 2 to 3 (target INR of 2.5). This recommendation includes high-risk patients with antiphospholipid syndrome with previous arterial or venous thromboembolism, current-generation mechanical or bioprosthetic aortic heart valve replacement. Note: Patients with mechanical aortic valve replacement and additional risk factors for thromboembolic events (atrial fibrillation, previous thromboembolism, LV dysfunction, hypercoagulable conditions) or an older generation mechanical AVR (i.e., ball in-Cage) or any mechanical MVR should have a INR therapeutic range of 2.5 to 3.5 (target INR of 3). Joe BARBER, et al. Chest 2012, 141:7S-47S Catie RA, et al. [facility] 2017, 70: 252-289 Performed By: #### CBC, PT, PTTAC #### [facility] [place], [place] [address] PTT,ANTICOAG THERAPY Collected: 05/14/2018 Status: F Source: ARARAT 4:08 AM [facility] REPOSITORY TYPE CODE TESTS RESULT OUT OF RANGE REFERENCE UNITS LAB APTT 23.0-32.4 sec APTT 26.5 Result Comment: Unfractionated Heparin Therapeutic Ranges: Standard Heparin Nomogram: 53 to 78 seconds (anti-Xa level of 0.3 to 0.7 U/ml) Low Dose/ACS Nomogram: 49 to 67 seconds (anti-Xa level of 0.2 to 0.5 U/ml) Stroke Treatment Nomogram: 49 to 67 seconds (anti-Xa level of 0.2 to 0.5 U/ml) Note: The APTT therapeutic range has been determined for the current lot of laboratory APTT reagent in use throughout the [employer]. Performed By: #### CBC, PT, PTTAC #### [place] [id number] [place], [place] [address] OPERATIVE NO Observed: 05/14/2018 Status: COMPLETED Source: ARARAT 12:00 AM [facility] REPOSITORY HNO ID: [id number] Author: Marj Vargas Service: Cardiovascular Surgery Author Type: Physician Type: Operative Report Filed: 05/16/2018 10:09 AM Note Text: [facility] - Cardiothoracic Operative Report [address] [place], [place] [address] [place] FLAVIA CASE : 1950 AGE: 68. SEX: F PATIENT TYPE: IN [facility] [id number] LOCATION: [id number] ATTENDING PHYSICIAN: Marj Vargas M.D., Ph.D. CSN NUMBER: [id number] DATE OF SURGERY/PROCEDURE: 05/14/2018 Incision/Procedure Start Time: 8:19 AM Incision Close/Procedure End Time: 3:35 PM PREOPERATIVE DIAGNOSIS: Aortic valve disease and coronary artery disease, status post aortic valve replacement with mechanical valve and coronary artery bypass grafting x3 in 1996. Aortic valve stenosis. Paroxysmal atrial fibrillation. POSTOPERATIVE DIAGNOSIS: Aortic valve disease and coronary artery disease, status post aortic valve replacement with mechanical valve and coronary artery bypass grafting x3 in 1996. Aortic valve stenosis. Paroxysmal atrial fibrillation and mitral valve regurgitation. SURGEON: Marj Vargas M.D., Ph.D. METAL CNC OPERATOR: Chad Villa M.D. SURGERY/PROCEDURE: Reoperation, 2nd open heart surgery. Coronary artery bypass grafting x2 with saphenous vein graft to lateral circumflex branch and saphenous vein graft to right coronary artery. Maze procedure with cryo. Mitral valve repair with Hyde band #27. Aortic valve re-replacement with Jose M-Neves Inspiris valve #23. Tricuspid valve repair according to Tia. ANESTHESIA: General endotracheal. OPERATIVE INDICATIONS: The patient is a 68-year-old lady with history of coronary artery bypass grafting and aortic valve replacement in 1996. She has multiple comorbidities including diabetes and is fairly severe overweight and she has also history of non-small cell lung cancer in the left upper lobe, which was radiated in 2017. She now returns with fairly severe angina. She has a patent SHELBY to LAD, but other grafts are down. She has left main disease, circumflex disease, and occlusion of the right coronary artery. The aortic valve is also stenotic with peak gradient in the 90s. Preoperatively, minimal MR and TR. OPERATIVE FINDINGS: Transesophageal echocardiography in the operating room confirms the diagnosis and in addition, significant MR and TR. There is mild mitral annular calcification. On exploration, these findings were confirmed. The tricuspid valve however only displayed annulus dilatation, but otherwise looked good. In the coronary arteries, we explored the graft, the lateral circumflex branch, and the right coronary beyond crux were of good size and quality. The conduit was of good quality. DESCRIPTION OF PROCEDURE: The patient was prepped and draped in normal sterile fashion. Re-sternotomy was performed. The right side of the heart and the ascending aorta were dissected out. Saphenous vein graft was harvested from the right thigh endoscopically by the Lesli MAO. The patient was heparinized and aortic and bicaval cannulation was carried out. Cardiopulmonary bypass was initiated. The ascending aorta was cross-clamped and the heart arrested with antegrade and retrograde cardioplegia. We had also dissected out the mammary artery and this was also clamped. The heart was arrested with antegrade and retrograde cardioplegia. Dissection of the heart was completed. 1st, we did the 2 bypasses. The lateral circumflex branch was grafted with 1st vein graft. Distal anastomosis with 7-0 Prolene and proximal anastomosis to the ascending aorta with 5-0 Prolene. Next, we grafted the right coronary artery in the AV groove beyond the crux. Distal anastomosis with 7-0 Prolene and proximal anastomosis at the end of the procedure to the ascending aorta with 5-0 Prolene. The mitral valve and left atrium were approached through the atrial septum. First, we did the Maze procedure. This included a box around the pulmonary veins and a connecting lesion to the mitral annulus with cryo. In the right atrium, we did an SVC-IVC lesion and the lesion from the IVC to the tricuspid annulus at 4 o'clock and up to the incision. This completed the Maze procedure. Mitral valve was repaired with Hyde band #27 inserted with nine 2-0 Ethibond annular sutures. Atrial septum was closed with running 4-0 Prolene. Proximal aortotomy was performed. The aortic root was cleaned from some calcium, which was peeled off the aortic wall. Generous irrigation was performed repeatedly. The old prosthesis was removed and the subvalvular pannus was removed and the annulus debrided from old suture material. Generous irrigation was performed repeatedly. The aortic valve was replaced with a Jose M-Neves Inspiris valve #23 inserted with twelve 2-0 Ethibond annular sutures. The aortotomy was closed with running 4- 0 Prolene. Finally, the tricuspid valve was repaired according to Tia with lateral plication with 1 pledgeted sutures. The right atrium was closed with running 4-0 Prolene. Cardioplegia hotshot was given. The aortic cross-clamp was removed. Pacing wires were placed. The patient was weaned from cardiopulmonary bypass. The heart was decannulated. Protamine was given. Careful hemostasis was carried out. Mediastinal chest tubes were placed. The sternotomy and leg incisions were closed in an ordinary fashion. Post-pump echocardiography demonstrated a well-seated aortic valve prosthesis, 1+ residual mitral and 1+ residual tricuspid regurgitation. The removed aortic valve prosthesis was sent for pathology. Dr. Villa opened and closed the chest and performed components of the procedure. The P.A., Lesli Dutton, harvested the vein endoscopically from the right leg. I was present from cannulation to decannulation and I or another staff surgeon was immediately available for the rest of the procedure. ESTIMATED BLOOD LOSS: Bleeding was estimated to 500 mL. COUNTS: Counts were correct. Marj Vargas M.D., Ph.D. GP:[id number] /[id number] cc: PTT,ANTICOAG THERAPY Collected: 05/13/2018 Status: F Source: ARARAT 6:37 PM [facility] REPOSITORY TYPE CODE TESTS RESULT OUT OF RANGE REFERENCE UNITS LAB APTT 23.0-32.4 sec High APTT 50.7 Result Comment: Unfractionated Heparin Therapeutic Ranges: Standard Heparin Nomogram: 53 to 78 seconds (anti-Xa level of 0.3 to 0.7 U/ml) Low Dose/ACS Nomogram: 49 to 67 seconds (anti-Xa level of 0.2 to 0.5 U/ml) Stroke Treatment Nomogram: 49 to 67 seconds (anti-Xa level of 0.2 to 0.5 U/ml) Note: The APTT therapeutic range has been determined for the current lot of laboratory APTT reagent in use throughout the [employer] [facility]. Results may be inaccurate due to age of specimen. Performed By: #### PTTAC #### [facility] [address] [place], [place] [address] CONSULT PROG Observed: 05/13/2018 Status: COMPLETED Source: ARARAT 2:46 PM [facility] REPOSITORY HNO ID: [id number] Author: Stacy Salazar Service: Pulmonary Disease Author Type: Physician Type: Consult Progress Note Filed: 05/13/2018 5:31 PM Note Text: Brief consult note 68 year old yrs old female with PMH of COPD, CAD, pAFIB, AVR being evaluated for re do CABG, AVR. Consulted for pre-op risk assessment. Recent COPD flare treated with OCS, and again 3 weeks of worsening productive cough. S: improvement in breathing and cough with prednisone x2 days O: on room air, lungs clear without wheezing Labs reviewed. AT-T level wnl, genotype pending. Imp/Rec - COPD exacerbation, good response to prednisone. Plan for total 5 day course - Patient willing to try duoneb while in hospital. Prior history of tachycardia while using albuterol but was years ago - Please have duoneb scheduled q6 hours, plus as needed. If unable to tolerate, can use atrovent plus xopenex. - would benefit from LAMA-LABA eg Anoro as repair tech COPD regimen. - will following AAT genotype. Levels normal. Will follow post op. Joaquin Barth MD Statement of Personal Involvement by the Attending Physician I have personally interviewed and examined the patient. I have personally verified elements of the exam listed above. I have personally and independently reviewed CXR images and results (see data section). I have personally reviewed the resident's note and concur with my comments below representing annotations based on this direct personal review. feels a bit better today. Plan OHS tomorrow. Rx duoneb qid and now day 2 of 5 of prednisone. AAT level normal. Dr. Henson assumes pulm Consult service tomorrow. Stacy Salazar M.D., M.S. CONSULT PROG Observed: 05/13/2018 Status: COMPLETED Source: ARARAT 12:09 PM [facility] REPOSITORY HNO ID: [id number] Author: Annette Ortega Service: Cardiac Surgery Author Type: Nurse Practitioner Type: Consult Progress Note Filed: 05/13/2018 6:30 PM Note Text: [facility] CONSULT PROGRESS NOTE Flavia Case [id number] CONSULTING SERVICE: Cardiothoracic Surgery:Dr. Vargas: Redo AVR/CABG PRIMARY SERVICE: Cardiology: Imaging:Dr. Nur/Dr. Bales ASSESSMENT / RECOMMENDATIONS / PLAN: 68 y/o female with PMHx of COPD, CAD, pAfib, CAD/AVR- s/p CABG/AVR (1996) Now being eval for Redo AVR/CABG Pt was seen/eval by Pulmonary--Prednisone 40 mg/day x 5days rec--ordered--started on 05/12/2018---on day 2 of prednisone Pt was seen/eval and consented per Dr. Vargas on 05/11/2018->Reoperation, 2nd heart surgery, sternotomy, aortic valve replacement (tissue valve), plus minus coronary bypass x1- 3 with vein from right leg, maze procedure Seen eval by Pulm initially on 05/11/18--COPD exac--recs for 40mg Prednisone x 5 days--prednisone started on 05/12/18 [facility] called 05/12/18--elevated SBP c/w flashing--given lasix 80mg IV; EKG negative for acute ischemia; added isordil to BP management- (per [facility] note) Preop education/orders TENTATIVELY SCHEDULED FOR OHS 1ST RND ON ?May 14, 2018 NPO after MN on May 14, 2018 ?Except for Meds with Sips of Water PLEASE GIVE Beta Yi prior to OR on day of OHS PLEASE HOLD JEFF/ARB on day of OHS If BP is elevated-please contact Cardiology for BP managment Please HOLD ?IV HEPARIN @ 12 am MN on 05/14/2018 in anticipation of OHS ?05/14/2018 THANK YOU Pulm 05/13/18-->Imp/Rec - COPD exacerbation, good response to prednisone. Plan for total 5 day course - Patient willing to try duoneb while in hospital. Prior history of tachycardia while using albuterol but was years ago - Please have duoneb scheduled q6 hours, plus as needed. If unable to tolerate, can use atrovent plus xopenex. - would benefit from LAMA-LABA eg Anoro as repair tech COPD regimen. - will following AAT genotype. Levels normal. ?Will follow post op. ?Joaquin Barth MD feels a bit better today. Plan OHS tomorrow. Rx duoneb qid and now day 2 of 5 of prednisone. AAT level normal. Dr. Henson assumes pulm Consult service tomorrow. ?Stacy Salazar M.D., M.S. Seen/eval by Pulmonary 05/11/2018-->IMPRESSION: Flavia Case is a 68 year old yrs old female with PMH of COPD, CAD, pAFIB, AVR being evaluated for re do CABG, AVR. COPD had recent flare about 2-3 months ago treated with OCS burst, and again worsening sx of SOB, productive cough in the last three weeks likely represent another COPD flare currently in partial recovery but not back to baseline. Lung function largely stable compared with 2017 result. Patient would likely benefit from LAMA-LABA regimen in the long run. ? RECOMMENDATIONS: - prednisone 40 x 5 days - duoneb scheduled q6hr scheduled, plus q4 prn as needed - please give patient incentive spirometry device to encourage lung expansion - post surgery, would recommend adding LAMA-LABA to COPD regimen, such as Anoro - rest of pre-op assessments as below. - screen for alpha-1 AT deficiency (ordered) given family history of COPD - influenza and pneumococcal vaccination UTD ? PETRA 05/10/2018-->The left ventricle is normal in size. There is moderate concentric left ventricular hypertrophy. Left ventricular systolic function is normal. EF = 65 ? 5% (visual est.) - The right ventricle is normal in size. Right ventricular systolic function is normal. - The left atrial cavity is dilated. - There is a moderate amount of sub mitral valve calcification. - Mechanical prosthetic aortic valve (size #21). There is trace aortic valve regurgitation. The peak gradient is 71 mmHg and the mean gradient is 32 mmHg. S/p bileaflet mechanical aortic valve prosthesis implant w/ knwon hi gradients, opening well by recent C. CT CHEST 05/11/18->PROXIMITY OF THE CARDIOVASCULAR STRUCTURES TO THE STERNUM: The left brachiocephalic vein lies in close proximity to the posterior aspect of the manubrium at 3 mm The right ventricle is in close proximity to the sternum 5 mm at the level of the lower 2 sternal wires The remainder of the cardiac and vascular structures including the bypass grafts lie a safe distance from the sternum. 1 ?Status post mechanical aortic valve with bileaflet tilting disc that appears well seated with symmetric leaflet excursion. 2. Severe coronary calcifications. There is a SHELBY graft to the LAD that appears patent. ?Additionally, there are 2 aortocoronary bypass grafts that are occluded, though this study was not optimized for coronary artery evaluation 3. ?The thoracic aorta is normal in course and caliber with severe calcification of the ascending aorta. ?There is no acute aortic pathology. 4. ?The pelvic arteries are tortuous with severe calcification of the proximal common iliac arteries and narrowing of the ostium of the right common iliac artery (approximately 5 mm). ?The ostium of the left common iliac artery is approximately 8 mm. ?The ostium of the left external iliac artery is not well visualized due to significant calcium blooming artifact. ?The common femoral arteries are normal in course small in caliber with moderate predominantly distal calcification. ?The minimal luminal caliber throughout = 5 mm. NM PET 05/09/18-->1. PET Perfusion Study: Abnormal. ?2. No evidence of scarred myocardium. ?3. No evidence of hibernation. ?4. There is severe (>20%) ischemia in the anterior wall. ?5. There is moderate (10-20%) ischemia in the inferior wall. ?6. Left ventricle is mildly dilated. The left ventricle systolic function is low normal. ?7. Right ventricle is mildly dilated. The right ventricle systolic function is mildly decreased. ?8. There is a drop in Ejection Fraction post stess. ?9. There is transient ischemic dilation of the LV cavity with stress. 10. This is a high risk scan. ?Gated Stress IR:3D:SC:CTAC Gated Rest IR:3D:SC:CTAC ?LVEF % 64 ? 66 Hospital Problem List reviewed. SUBJECTIVE: INTERVAL HISTORY: seen/eval by PULParvin 05/11/18--recs for Prednisone- 40mg x 5days for COPD exacberation Prednisone started on 05/12/2018 CMET called 05/12/2018--for hypertension SBP-195--c/with flashing; EKG negative for acute ischemia; isordil added to BP management (per CMET note) PERTINENT REVIEW OF SYSTEMS: concern about getting IV started prior to surgery--has anixety w/getting IVs Denies any increased SOB, Denies chest pain, N/V/Dizziness or POLLARD; no constipation or diarrhea Last BM yesterday--no blood in stool No BM today See HPI: Remaining ROS reviewed and negative OBJECTIVE: MEDICATIONS: Current hospital medications: isosorbide dinitrate 30 mg tab(s) (ISORDIL, SORBITRATE) 30 mg ORAL TID 9a/3p/9p predniSONE 40 mg tab(s) (DELTASONE) 40 mg ORAL DAILY [START ON 05/14/2018] metoprolol tartrate (short acting) 12.5 mg tab(s) (LOPRESSOR) 12.5 mg ORAL ONCE nitroglycerin sublingual 0.4 mg tab(s) (NITROQUICK) 0.4 mg SUBLINGUAL PRN heparin iv infusion (STANDARD NOMOGRAM) 25,000 units in NaCl 0.45% 250 mL PREMIX 0-3,000 Units/hr INTRAVENOUS CONTINUOUS heparin RATE CHANGE bolus 1,000-10,000 Units for subtherapeutic aptt results 1,000-10,000 Units INTRAVENOUS PRN furosemide 20 mg tab(s) (LASIX) 20 mg ORAL DAILY ipratropium 0.02 % 0.5 mg (ATROVENT) 0.5 mg INHALATION q 6 H PRN calcium carbonate 750 mg chewable tab(s) (TUMS) 750 mg ORAL BID PRN busPIRone 5 mg tab(s) (BUSPAR) 5 mg ORAL TID ranolazine ER 500 mg tab(s) (RANEXA) 500 mg ORAL BID loratadine 10 mg tab(s) (CLARITIN) 10 mg ORAL DAILY losartan 100 mg tab(s) (COZAAR) 100 mg ORAL DAILY amLODIPine 10 mg tab(s) (NORVASC) 10 mg ORAL DAILY aspirin, enteric coated 81 mg tab(s) 81 mg ORAL DAILY dextrose 40 % 15 g 15 g ORAL PRN glucagon 1 mg injection (GLUCAGEN) 1 mg INTRAMUSCULAR PRN dextrose 50 % 12.5 g injection 12.5 g INTRAVENOUS PRN acetaminophen 650 mg tab(s) (TYLENOL) 650 mg ORAL q 4 H PRN docusate sodium 100 mg cap(s) (COLACE) 100 mg ORAL BID PRN insulin lispro injection (rapid acting) (HumaLOG) SUBCUTANEOUS w MEALS insulin lispro injection (rapid acting) (HumaLOG) SUBCUTANEOUS AT BEDTIME polyethylene glycol 3350 17 g packet (MIRALAX, GLYCOLAX) 17 g ORAL DAILY PRN atorvastatin 80 mg tab(s) (LIPITOR) 80 mg ORAL DAILY guaiFENesin 1,200 mg ER tab(s) (MUCINEX) 1,200 mg ORAL q 12 H sodium chloride 0.65 % 2 [place] (AYR, OCEAN) 2 [place] EACH NOSTRIL PRN lactobacillus rhamnosus 10 billion cell (CULTURELLE) capsule 1 capsule ORAL DAILY PHYSICAL EXAM: 05/13/18 0320 05/13/18 0724 05/13/18 1018 05/13/18 1056 BP: 131/63 159/70 168/72 168/72 Pulse: 62 60 68 69 Resp: 18 18 18 Temp: 36.9 ?C (98.4 ?F) 36.3 ?C (97.4 ?F) 36.7 ?C (98 ?F) TempSrc: Oral Oral Oral SpO2: 97% 95% 97% Weight: 101.2 kg (223 lb 1.7 oz) Height: General: Somewhat fatigue but stable female in NAD noted AAOX 3 Skin: Sternal scar; SVG scars LLE; bilat abdominal folds/ groin skin intact and without incident Head/Eyes: Sclera clear, intact conjunctiva. EOMI. Mouth/Pharynx: Teeth: Full Dentures. No lesions. Neck: No JVD. Supple. Lungs: BBS coarse and diminished throughout Breasts:BBS grossly symmetrical skin intact under breasts bilat Heart: S1 S1 noted 3/6 murmur noted Peripheral Vascular/Arteries: Carotid pulse noted +2 bilat DP/Radial pulses +2 bilat Abdomen: Soft abdomen, nontender, nondistended without mass. + bowel sounds. Musculoskeletal: No kyphoscoliosis.+ joint deformities. Extremities: No clubbing or cyanosis. ++ bilat LE edema. Neurologic/Psychiatric: Stable affect. No gross focal neurologic deficits. Intake/Output Summary (Last 24 hours) at 05/13/18 1209 Last data filed at 05/13/18 0900 Gross per 24 hour Intake 1450 ml Output 1 ml Net 1449 ml DATA: Laboratory: Recent Labs 05/13/18 0549 05/12/18 0611 05/11/18 0113 WBC 6.58 4.76 5.82 HB 10.6* 10.9* 11.3* HCT 32.7* 33.7* 34.9* PLT 160 146* 160 NA -- 139 141 K -- 4.1 3.9 CHLOR -- 101 98 CO2 -- 22 28 BUN -- 13 15 CREAT -- 0.68 0.88 GLUC -- 151* 167* ] Recent Labs 05/13/18 0549 05/12/18 0611 05/11/18 0113 INR 1.2 1.4* 1.6* ] Case discussed with CTS Director Of Industrial Relations SIGNATURE: Annette Ortega APRN.POINT OF CARE TECHNICIAN PAGER: [phone] DATE of SERVICE: 05/13/2018 TIME of SERVICE: 1420 For further questions or If no answer to above pager after 5:30 pm, Please contact CTS office @ [phone] or pgr:[phone]; or CTS Fellow documentation improvement specialist @ [phone] for Emergency/Emergent changes in pt's status. THANK YOU Informed patient (and family) what to expect pre/post operatively: Your surgery and recovery will take place in the [facility] ([facility] Surgery (Cardiac ORs) is on the 4th floor of the [facility], ICUs/ Postop floors are on 5 and 6th floors of the [facility] ([facility]_. Although your surgery has been scheduled for tomorrow-unfortunately there is always a chance that it may be cancel due to an emergency/emergent case in the OR--(for example a heart/lung transplant or an aortic dissection). If you have family that will be here with you on the day of your surgery, during your surgery, your family will wait in J1-2 -which is the Cardiac Surgery waiting area on the first floor of the [facility] ([facility]). One of your family members will need to sign in and get a pager so that family member can be notified when your surgery has started and when it is almost over. The surgical ICUs are on the 5th and 6 th floors of the [facility] ([facility])--it is open visitation---no set times to visit-however, your family member will need to call into the nurses station to make sure it is an appropriate time to visit. You will be NPO after 12 am MN night prior to OHS You will need to take 2 showers night prior to your surgery and the 2 showers morning of your surgery--1st of the 2 showers-will be as if you are taking a shower at home--no ekg electrodes; shower-wash face to feet. Your second shower will be approximately just minutes after your first shower and you will use the antibacterial soap (or wipes if not possible for you to shower). You will wash from your neck to your feet--please wash both sides of your neck, your chest, both groins but not your private area, legs and feet. Stressed to patient the importance of pain control for successful recovery: INFORMED OF IMPORTANCE OF GOOD PAIN [id number]-tlo for pain medication early when pain level is 3/0-10Informed patient (and family) what to expect pre/post operatively IMPORTANCE OF PAIN [id number]-aov for pain medication early, take pain medication routinely to have adquate pain control to prevent postop complications ie Pneumonia, Deep Vein Thrombosis, Delayed Wound Healing, Longer Hospital Stay. Explained importance of Deep Breathing/Coughing before and after surgery pain scale, take pain medication routinely to have adquate pain control to prevent postop complications for example,? Pneumonia, Deep Vein Thrombosis, Delayed Wound Healing, Longer Hospital Stay. ? Explained the importance of Bowel Maintenance-taking stool softners (or laxatives if indicated) to maintain regular bowel movements while on pain medication. Informed of benefits of adequate pain control- taking pain medication when pain level is -ask for pain medication; Inform pt may want to ask for pain medication around the clock/routinely on first postop Day on Regular Nursing Floor- thereby promoting recovery;-able to breathe deeply and adequately thus decrease Oxygen requirements of body, Able to walk, get out of bed- thereby decrease recovery time and decreased risk for infection. Discussed Chest Protection: NO HEAVY LIFTING nothing heaving than 5-10 pounds for 6 weeks to ensure proper healing of sternum. Explained importance of Deep Breathing/Coughing before and after surgery Instructed in breathing exercises-deep breaths 10 times/hour while awake. Pt verbalized understanding and demostrated understanding via return demonstration. ? Discussed discharged plans-informed patient , a Cardiac Surgery Nurse Practitioner visit is recommended within 3-7 days after being discharged if lived in near [place], [place] area or within [address] [place], [place]. Discussed with Patient (Family) will need to see their PCP and Manager Respiratory? following discharged- specific time frames for postop visits for Cardiac Surgery Nurse Practitioner, PCP and Manager Respiratory will be discussed at time of discharged. Patient (Family) Verbalized understanding. PROGRESS Observed: 05/13/2018 Status: COMPLETED Source: ARARAT 7:21 AM [facility] REPOSITORY [facility] ID: [id number] Author: Jean Mukherjee MD Service: Cardiovascular Medicine Author Type: Physician Type: Progress Notes Filed: 05/13/2018 10:08 AM Note Text: [facility] PROGRESS NOTE PRIMARY SERVICE: Hvi Card Intervention HOSPITAL DAY: # 4 68 year old female with pmhx of CAD s/p CABG with recent crescendo angina,paroxysmal, symptomatic atrial fibirllation on coumadin, s/p mechanical AVR on coumadin. Needs redo AVR/CABG- tentatively scheduled for james on Monday INTERVAL HISTORY - Had a flash pulmonary edema event with SBP 195 (also has history of panic attacks). Added isordil to regimen and monitored on the floor - SBP in 130s this AM - Pulm consulted for copd/restriction to start predniseon 40 x 5 days, duonebs, screen for alpha 1 AT given family hx of COPD - HR closely watching -- low of 52 and high of 76 - Labs: Cr is normal - Imaging: had CTA of C/A/P for preop planning, ultasound of carotids done PLAN - tentative AVR/CABG next week with James - monitor HR closely given brief episode of 40s on Monday. Holding amiodarone and carvedilol with HR 60-70s - added isordil in absence of carvedilol - continue heparin PHYSICAL EXAM BP 131/63 Pulse 62 Temp 36.9 ?C (98.4 ?F) (Oral) Resp 18 Ht 160 cm (5' 3) Wt 101.2 kg (223 lb 1.7 oz) SpO2 97% BMI 39.52 kg/m? Intake/Output Summary (Last 24 hours) at 05/13/18 0721 Last data filed at 05/12/18 2238 Gross per 24 hour Intake 1450 ml Output 600 ml Net 850 ml General Appearance: No acute distress HEENT: PERRLA Lungs: Clear Heart: Regular rate AND rhythm Abdomen: Soft and Non-tender Skin: Warm Musculoskeletal: No deformities Neurologic/Psychiatric: Oriented to time, place AND person MEDICATIONS Current hospital medications: predniSONE 40 mg tab(s) (DELTASONE) 40 mg ORAL DAILY [START ON 05/14/2018] metoprolol tartrate (short acting) 12.5 mg tab(s) (LOPRESSOR) 12.5 mg ORAL ONCE nitroglycerin sublingual 0.4 mg tab(s) (NITROQUICK) 0.4 mg SUBLINGUAL PRN isosorbide dinitrate 20 mg tab(s) (ISORDIL, SORBITRATE) 20 mg ORAL TID 9a/3p/9p heparin iv infusion (STANDARD NOMOGRAM) 25,000 units in NaCl 0.45% 250 mL PREMIX 0-3,000 Units/hr INTRAVENOUS CONTINUOUS heparin RATE CHANGE bolus 1,000-10,000 Units for subtherapeutic aptt results 1,000-10,000 Units INTRAVENOUS PRN furosemide 20 mg tab(s) (LASIX) 20 mg ORAL DAILY ipratropium 0.02 % 0.5 mg (ATROVENT) 0.5 mg INHALATION q 6 H PRN calcium carbonate 750 mg chewable tab(s) (TUMS) 750 mg ORAL BID PRN busPIRone 5 mg tab(s) (BUSPAR) 5 mg ORAL TID ranolazine ER 500 mg tab(s) (RANEXA) 500 mg ORAL BID loratadine 10 mg tab(s) (CLARITIN) 10 mg ORAL DAILY losartan 100 mg tab(s) (COZAAR) 100 mg ORAL DAILY amLODIPine 10 mg tab(s) (NORVASC) 10 mg ORAL DAILY aspirin, enteric coated 81 mg tab(s) 81 mg ORAL DAILY dextrose 40 % 15 g 15 g ORAL PRN glucagon 1 mg injection (GLUCAGEN) 1 mg INTRAMUSCULAR PRN dextrose 50 % 12.5 g injection 12.5 g INTRAVENOUS PRN acetaminophen 650 mg tab(s) (TYLENOL) 650 mg ORAL q 4 H PRN docusate sodium 100 mg cap(s) (COLACE) 100 mg ORAL BID PRN insulin lispro injection (rapid acting) (HumaLOG) SUBCUTANEOUS w MEALS insulin lispro injection (rapid acting) (HumaLOG) SUBCUTANEOUS AT BEDTIME polyethylene glycol 3350 17 g packet (MIRALAX, GLYCOLAX) 17 g ORAL DAILY PRN atorvastatin 80 mg tab(s) (LIPITOR) 80 mg ORAL DAILY guaiFENesin 1,200 mg ER tab(s) (MUCINEX) 1,200 mg ORAL q 12 H sodium chloride 0.65 % 2 [place] (AYR, OCEAN) 2 [place] EACH NOSTRIL PRN lactobacillus rhamnosus 10 billion cell (CULTURELLE) capsule 1 capsule ORAL DAILY DATA Recent Labs 05/12/18 0605/11/18112 WBC 4.76 5.82 HB 10.9* 11.3* HCT 33.7* 34.9* PLT 146* 160 Recent Labs 05/12/18 0605/11/18112 NA 139 141 K 4.1 3.9 CO2 22 28 BUN 13 15 CREAT 0.68 0.88 GLUC 151* 167* MG 2.3 2.4* IMAGING reviewed ASSESSMENT AND PLAN 68 year old female with pmhx of CAD s/p CABG with recent crescendo angina,paroxysmal, symptomatic atrial fibirllation on coumadin, s/p mechanical AVR on coumadin. She most recently admitted at [facility] from 04/18/2018 through 04/25/2018. During that admission she presented with chest pain and dyspnea and ultimately had a stress test. This showed no ischemia but given her recurrent symptoms, the patient was taken for cath on 04/20. This showed a 100% SVG-RCA, 100% SVG-LCx and a patent SHELBY-lAD. The AV looked good during the catheterization. She was sent for PCI but despite multiple dilations, no stent was able to pass due to excessive calcifications and the procedure was aborted. She presented to [place] ED with recurrent anginal symptoms and was transferred to [facility] for further evaluation. 68 year old female with pmhx of CAD s/p CABG with recent crescendo angina,paroxysmal, symptomatic atrial fibirllation on coumadin, s/p mechanical AVR on coumadin. She most recently admitted at [facility] from 04/18/2018 through 04/25/2018. During that admission she presented with chest pain and dyspnea and ultimately had a stress test. This showed no ischemia but given her recurrent symptoms, the patient was taken for cath on 04/20. This showed a 100% SVG-RCA, 100% SVG-LCx and a patent SHELBY-lAD. The AV looked good during the catheterization. She was sent for PCI but despite multiple dilations, no stent was able to pass due to excessive calcifications and the procedure was aborted. [facility] for further evaluation. Problem Coronary Artery Disease Involving [place] Coronary Artery of [place] Heart With Unstable Angina Pectoris (Hcc) ? History -s/p CABG with mechanical AVR ? 03/2018 angina pain stress test. This showed no ischemia ? 03/2018 [facility] LM distal 50% LAD - pLAD 85% eccentric, mLAD fills via SHELBY, D1 fills via L-L collaterals LCx- pLCx 25-50% stenosis RCA - pRCA with 95%, mRCA with 50%, dRCA occluded and fills via L-R collaterals SHELBY-LAD patent SVG-LCx occluded SVG-RCA occluded unsuccessful attempt at PCI of RCA ? BNP 653 ? PET There is severe (>20%) ischemia in the anterior wall. There is moderate (10-20%) ischemia in the inferior wall ? 05/09/2018 responded well to 1 dose of IV lasix ? Plan ASA 81mg daily coumadin held heparin gtt per nomagram cont coreg 3.125mg BID (Home BB is atenolol) Cont arb cont norvasc stop Imdur (will need to hold for PET and cautious use in symptomatic ) oral lasix CTS consult for redo AVR/CABG/MAZE dentures- no dental needed ? ? ? History of Mechanical Aortic Valve Replacement ? 1996 on coumadin at home ? 03/2018 OSH echo ? Echo The peak gradient is 98 mmHg (peak velocity = 494.0 cm/s). The mean gradient is 48 ?mmHg. CTS surgery consult for redo AVR/CABG+/_ MAZE ? Acute On Chronic Diastolic Heart Failure (Hcc) ? see plan CAD for management ? Copd (Chronic Obstructive Pulmonary Disease) (Hcc) ? on nebs at home- prn Rhinosinusitis with cough and increased sputum since last hospitalizations- improved slightly with amoxicillin that was given for UTI-(has completed that course) CXR okay much improved with treatment ? Plan Prednisone per pulmonary plan resume mucinex that was helping with sputum nebs as needed- nasal spray- saline will try augmentin (interactions with zithromax and ranexa) pulmonary consult ? ? Case to be discussed with staff Seferino Marrufo MD For communication after 5 pm on weekdays and after 12 pm on weekends, please page the following: - Clinical Cardiology patients on all floors: page [phone] - Other Cardiology patients on J5 and J6: page [phone] - Other Cardiology patients on J7 and J8: page [phone] [facility] STAFF PHYSICIAN NOTE OF PERSONAL INVOLVEMENT IN CARE I have reviewed the progress note obtained and documented by the fellow and I personally participated in the cabral components. I have discussed the case and management of the patient's care. The following comments revise or confirm relevant cabral components of their note. IMPRESSION: This is a 68 year old female who presents with CAD and need for AVR PLAN: Redo AVR with bioprosthetic valve (hopefully large) and CABG Jean Mukherjee MD ETX [id number] PROTIME Collected: 05/13/2018 Status: F Source: ARARAT 5:49 AM [facility] REPOSITORY TYPE CODE TESTS RESULT OUT OF RANGE REFERENCE UNITS LAB PSEC 9.7-13.0 sec PT Sec 12.5 LAB INR 0.9-1.3 PT INR 1.2 Result Comment: Vitamin K Antagonist (VKA) Therapeutic Range: INR 2 to 3 (Target INR of 2.5) Note: For patients treated with VKA drugs, such as warfarin, the [employer] 2012 Guideline recommends a therapeutic INR range of 2 to 3 (target INR of 2.5). This recommendation includes high-risk patients with antiphospholipid syndrome with previous arterial or venous thromboembolism, current-generation mechanical or bioprosthetic aortic heart valve replacement. Note: Patients with mechanical aortic valve replacement and additional risk factors for thromboembolic events (atrial fibrillation, previous thromboembolism, LV dysfunction, hypercoagulable conditions) or an older generation mechanical AVR (i.e., ball in-Cage) or any mechanical MVR should have a INR therapeutic range of 2.5 to 3.5 (target INR of 3). Joe GH, et al. Chest 2012, 141:7S-47S Catie RA, et al. [facility] 2017, 70: 252-289 Performed By: #### PT, PTTAC, CBC #### [facility] [address] [place] [address] PTT,ANTICOAG THERAPY Collected: 05/13/2018 Status: F Source: ARARAT 5:49 [facility] REPOSITORY TYPE CODE TESTS RESULT OUT OF RANGE REFERENCE UNITS LAB APTT 23.0-32.4 sec High APTT 99.6 Result Comment: Unfractionated Heparin Therapeutic Ranges: Standard Heparin Nomogram: 53 to 78 seconds (anti-Xa level of 0.3 to 0.7 U/ml) Low Dose/ACS Nomogram: 49 to 67 seconds (anti-Xa level of 0.2 to 0.5 U/ml) Stroke Treatment Nomogram: 49 to 67 seconds (anti-Xa level of 0.2 to 0.5 U/ml) Note: The APTT therapeutic range has been determined for the current lot of laboratory APTT reagent in use throughout the [employer]. Performed By: #### PT, PTTAC, CBC #### [facility] [address] [place], [place] [address] CBC Collected: 05/13/2018 Status: F Source: ARARAT 5:49 AM [facility] REPOSITORY TYPE CODE TESTS RESULT OUT OF REFERENCE UNITS RANGE LAB WBC 3.70-11.00 k/uL WBC 6.58 LAB RBC 3.90-5.20 m/uL RBC 3.96 LAB HGB 11.5-15.5 g/dL Low Hemoglobin 10.6 LAB HCT 36.0-46.0 % Low Hematocrit 32.7 LAB MCV 80.0-100.0 fL MCV 82.6 LAB MCH 26.0-34.0 pG MCH 26.8 LAB MCHC 30.5-36.0 g/dL MCHC 32.4 LAB RDWCV 11.5-15.0 % RDW-CV High 16.5 LAB PLTCT 150-400 k/uL Platelet Count 160 LAB MPV 9.0-12.7 fL MPV 11.4 LAB ABSNUC <0.01 k/uL Absolute nRBC <0.01 Performed By: #### PT, PTTAC, CBC #### [facility] [address] [place], [place] [address] TYPE AND SCREEN Collected: 05/13/2018 Status: F Source: ARARAT 5:49 AM [facility] REPOSITORY TYPE CODE TESTS RESULT OUT OF REFERENCE UNITS RANGE LAB %ABR O ABO/RH(D) POSITIVE LAB % Antibody NEG Screen Performed By: #### TSCR #### [facility] [facility] [address], [place] [address] PTT,ANTICOAG THERAPY Collected: 05/12/2018 Status: F Source: ARARAT 9:25 PM [facility] REPOSITORY TYPE CODE TESTS RESULT OUT OF RANGE REFERENCE UNITS LAB APTT 23.0-32.4 sec High APTT 75.7 Result Comment: Unfractionated Heparin Therapeutic Ranges: Standard Heparin Nomogram: 53 to 78 seconds (anti-Xa level of 0.3 to 0.7 U/ml) Low Dose/ACS Nomogram: 49 to 67 seconds (anti-Xa level of 0.2 to 0.5 U/ml) Stroke Treatment Nomogram: 49 to 67 seconds (anti-Xa level of 0.2 to 0.5 U/ml) Note: The APTT therapeutic range has been determined for the current lot of laboratory APTT reagent in use throughout the [facility]. Performed By: #### PTTAC #### [facility] [address], [place] [address] PTT,ANTICOAG THERAPY Collected: 05/12/2018 Status: F Source: ARARAT 3:19 PM [facility] REPOSITORY TYPE CODE TESTS RESULT OUT OF RANGE REFERENCE UNITS LAB APTT 23.0-32.4 sec High APTT 75.7 Result Comment: Unfractionated Heparin Therapeutic Ranges: Standard Heparin Nomogram: 53 to 78 seconds (anti-Xa level of 0.3 to 0.7 U/ml) Low Dose/ACS Nomogram: 49 to 67 seconds (anti-Xa level of 0.2 to 0.5 U/ml) Stroke Treatment Nomogram: 49 to 67 seconds (anti-Xa level of 0.2 to 0.5 U/ml) Note: The APTT therapeutic range has been determined for the current lot of laboratory APTT reagent in use throughout the [facility]. Results may be inaccurate due to age of specimen. Performed By: #### PTTAC #### [facility] [address], [place] [address] PROGRESS Observed: 05/12/2018 Status: COMPLETED Source: ARARAT 12:48 PM [facility] REPOSITORY HNO ID: [id number] Author: Stacy Castañeda RRT Service: Respiratory Therapy Author Type: Respiratory Therapist Type: Progress Notes Filed: 05/12/2018 12:56 PM Note Text: RESPIRATORY THERAPY PROGRESS NOTE SERVICE DATE: 05/12/2018 SERVICE TIME: 1152 Call to evaluate patient with hypertension and SOB.Upon arrival patients systolic bp was 193. Patient received 2 doses of sub lingual nitro and Fio2 increased to 5 l/m temporarily until patients symptoms improved. Systolic BP at 135 after nitro and O2 decreased back to 2 l/m with patient stating she felt much better. SIGNATURE: Stacy Castañeda RRT PATIENT NAME: Flavia Case DATE: May 12, 2018 TIME: 12:48 PM PAGER/CONTACT #: [phone] 05/12/18 1152 RT Rapid Response/CMET Is this a Rapid Response/CMET team response? Yes $ CPR/Code Blue No $ CPR/Code [place] No RT medication given? No Is patient on O2? Yes Was patient intubated? No ABGs drawn No O2 Resp 20 SpO2 97 % O2 Device Nasal Cannula Liters 2 $Oximetry $Performed $Oxygen Therapy per protocol $Performed NURSING PROG Observed: 05/12/2018 Status: COMPLETED Source: ARARAT 12:36 PM [facility] REPOSITORY HNO ID: [id number] Author: Keri (Rn) KOKO Weeks Service: (none) Author Type: Registered Nurse Type: Nursing Progress Note Filed: 05/12/2018 12:48 PM Note Text: Nursing Progress Note Patient Name: Flavia Case Patient Location: [address]- Patient states she was washing up when she felt like she had a run of afib, became SOB, headache, anxious. O2 96-98%, HR 48-56, SBP 190s, pt still stating SOB and pursed lip breathing. Service paged at and CMET activated, physician arrived at bedside. This note was completed by: Keri Weeks RN EKG1 Observed: 05/12/2018 Status: F Source: ARARAT 12:11 PM [facility] REPOSITORY NAME : FLAVIA CASE PID : [id number] : 1950 Gender : Female Race : ORD : Procedure Date : May 12 2018 12:11:17 Edit Date : May 16 2018 14:32:53 Diagnosis:SINUS BRADYCARDIA NONSPECIFIC T WAVE ABNORMALITY ABNORMAL ECG Confirmed by CAROLINA WEI M.D. ([id number]) on 05/16/2018 2:19:49 PM Ventricular Rate : 51 BPM Atrial Rate : 51 BPM P-R Interval : 146 ms QRS Duration : 106 ms Q-T Interval : 456 ms QTC Calculation(Bezet) : 420 ms P [place] : 5 degrees R [place] : 74 degrees T [place] : 40 degrees Test Reason : Location : [address] [place] [address] 11 Overread By : CAROLINA WEI M.D. Edited By : CAROLINA WEI M.D. Referred By : , Acquired by : [id number], PROGRESS Observed: 05/12/2018 Status: COMPLETED Source: ARARAT 12:02 PM [facility] REPOSITORY HNO ID: [id number] Author: Leonard Owens (Fel) Service: Cardiovascular Medicine Author Type: Fellow Type: Progress Notes Filed: 05/12/2018 12:14 PM Note Text: CMET note: CMET activated for hypertension (SBP 195) chest pressure and SOB. Presentation c/w flashing. Gave SLN and 80 mg IV lasix with immediate improvement in BP (SBP 165) and symptoms. ECG showed no evidence of acute ischemia. - added isordil to BP regimen - Will continue to monitor on RNF. Ruben Owens MD, PhD EP Fellow, PGY-7 Pager: [phone] 05/12/18 ANES PREOP Observed: 05/12/2018 Status: COMPLETED Source: ARARAT 10:34 AM [facility] REPOSITORY HNO ID: [id number] Author: Manuel Madsen Service: Anesthesiology Author Type: Resident Type: Anesthesia PreOp Filed: 05/12/2018 2:27 PM Note Text: [facility] PREOP EVALUATION CARDIOTHORACIC ANESTHESIA INPATIENT @[email or web address]@ SERVICE DATE: 05/12/2018 SERVICE TIME: 10:34 AM [id number] Proposed Surgical Procedure: CABG and AVR Re-do: YES ASA Class: 4 Surgeon: Sam Surgery Date: 05/14/17 Last Wt 05/12/18 : 101.6 kg (224 lb) Last Ht 05/09/18 : 160 cm (5' 3) Estimated body mass index is 39.68 kg/m? as calculated from the following: Height as of this encounter: 160 cm (5' 3). Weight as of this encounter: 101.6 kg (224 lb). Estimated body surface area is 2.13 meters squared as calculated from the following: Height as of this encounter: 160 cm (5' 3). Weight as of this encounter: 101.6 kg (224 lb). 68 YO female with hx of COPD, HTN, CADS/P CABG, pAfib on coumadin, and mechanical AVR who presents with increasing angina. Scheduled for redo AVR and CABG. PAST MEDICAL HISTORY Diagnosis Date - Acute gastritis without mention of hemorrhage - Acute peptic ulcer - Anxiety - ASHD (arteriosclerotic heart disease) Dr. Corado - Benign neoplasm of colon - Carpal tunnel syndrome - COPD (chronic obstructive pulmonary disease) (HCC) - Corns and callosities 02/11/2010 - Dermatophytosis of nail 02/11/2010 - Diabetes mellitus (HCC) - Diaphragmatic hernia without mention of obstruction or gangrene - Diastolic CHF (HCC) - Eczema - External hemorrhoids without mention of complication - Fatty liver - Hepatosplenomegaly - Hirsutism 10/21/2010 - Hyperlipidemia - Hypertension - Internal hemorrhoids without mention of complication - Lung cancer (HCC) 09/[address] Lizarraga. Stage I squamous cell s/p radiation - Multinodular thyroid benign - Obesity, unspecified - Overactive bladder Dr. Recio - Postsurgical aortocoronary bypass status triple bypass, aortic valve replacement - Pulmonary hypertension (HCC) - Radiation disease - S/P AVR - Seasonal allergies - Squamous cell carcinoma neck, back, leg, left lung - Toe deformity 02/11/2010 PAST SURGICAL HISTORY Procedure Laterality Date - CABG, ARTERY-VEIN, THREE 1996 CABG, three grafts, replace heart valve - DELIVERY ONLY x3 - COLONOSCOP W/ OR W/O [facility] SPEC 01/02/2001, 09/21/2005 Colonoscopy - COLONOSCOP W/ OR W/O [facility] SPEC 04/26/06 - EGD W/O OR W/BRUSH/WASH 04/26/06 - EGD W/O OR W/BRUSH/WASH 01/12/1984 EGD with biopsy of antral ulcer - LAPAROSCOPIC CHOLEYCYSTECTOMY 09-06-12 - PAST SURGICAL HISTORY OF skin cancer from knee / benign spot from back - PAST SURGICAL HISTORY OF cataract removal bilateral - TOTAL ABDOM HYSTERECTOMY 1978 for endometriosis, ovaries spared FAMILY HISTORY Problem Relation Age of Onset - Heart Father - Heart Mother - Thyroid Mother Goiter - Diabetes Maternal Grandfather - other (stomach cancer) Sister Adenocarcinoma - Heart Daughter - Colon Cancer Sister 52 Social History Substance Use Topics - Smoking status: Former Smoker Packs/day: 2.00 Years: 36.00 Types: Cigarettes Start date: 1962 Quit date: 06/28/1995 - Smokeless tobacco: Never Used Comment: Both parents smoked in childhood home. Ex-spouse of 38 years also a smoker. - Alcohol use No ALLERGIES Allergen Reactions - Advair Diskus [Flut* Other: See Comments CHEST PAIN - Asa [Salicylates] Unknown patient taking coumadin - on low dose ASA for valve dysfunction - Cephalexin Stomach pains-pt. ended up in hospital - Ekg Pads [Other] adhesive - Lisinopril Cough - Nexium [Esomeprazol* Other: See Comments Ineffective - Omeprazole Other: See Comments Ineffective - Tudorza Pressair [A* GI Upset - Ventolin [Albuterol* Other: See Comments Severe shaking, palpitations - Ventolin [Albuterol] Other: See Comments Ventolin MDI does not work, Pro Air works best REVIEW OF SYSTEMS: Neuro: no hx of seizures or strokes Respiratory: COPD, Current cough, Daily bronchodilator use for previous 3 months Cardiovascular: See HPI GI: Positive for GERD, PUD Endocrine: Diabetes Mellitus on oral agent Hematology: Chronic anti-coagulation / platelet meds (Aspirin, Coumadin) CKD AND ANEMIA ASSESSMENT: Patient has both eGFR < 60 mL/min and a Hemoglobin < 11 g/dl: No if the patient is going on CPB. ANESTHETIC HISTORY: History of general anesthesia without complications. AIRWAY ASSESSMENT: Airway History: No abnormal airway history Airway Exam: General: Normal appearance Mallampati Score: CLASS I Temporo-Mandibular Displacement Test: no teeth Interincisor Distance: 6 cm Thyromental Distance: 10 cm Neck Circumference: 40 cm Overbite: No Cervical Mobility: Normal Facial Hair: No Head/Neck Pathology: No ANTICIPATED DIFFICULT AIRWAY: NO Pre-Existing Diagnosis of Obstructive Sleep Apnea: No, STOP BANG SCORE: Criteria = Criteria: BMI > 35 Age over 50 (68 year old) Neck circumference > 15.75 inches HTN Score = 4, Score = 4 PHYSICAL EXAM: VITALS: BP 171/74 Pulse 73 Temp 36.6 ?C (97.8 ?F) (Oral) Resp 18 Ht 160 cm (5' 3) Wt 101.6 kg (224 lb) SpO2 97% BMI 39.68 kg/m? CARDIAC: Regular rate and rhythm. Mechanical valve LUNGS: wheezing with exhalation Date 05/12/18 0700 - 05/13/18 0659 Shift 1518-5256 5514-0911 2683-7819 24 Hour Total I N T A K E Shift Total O U T P U T Urine 300 300 Shift Total 300 300 Weight (kg) 101.6 101.6 101.6 101.6 Lines, Drains, Airway: PIV x2 O2 Therapy: Room Air (05/12/18 0732) LABS: Lab Results Past 6 Months Component Value Date HB 10.9 (L) 05/12/2018 HCT 33.7 (L) 05/12/2018 PLT 146 (L) 05/12/2018 WBC 4.76 05/12/2018 NA 139 05/12/2018 K 4.1 05/12/2018 CREAT 0.68 05/12/2018 CA 9.3 05/12/2018 APTT 51.4 (H) 05/12/2018 INR 1.4 (H) 05/12/2018 HBA1C 6.9 (H) 05/10/2018 TSH 2.130 05/10/2018 Lab Results Past 6 Months Component Value Date GLUC 151 (H) 05/12/2018 K 4.1 05/12/2018 NA 139 05/12/2018 CHLOR 101 05/12/2018 CO2 22 05/12/2018 CREAT 0.68 05/12/2018 BUN 13 05/12/2018 ANION 16 05/12/2018 CA 9.3 05/12/2018 TPROT 6.4 05/12/2018 ALB 3.7 (L) 05/12/2018 TBILI 0.3 05/12/2018 ALKPHOS 65 05/12/2018 AST 27 05/12/2018 ALT 28 05/12/2018 ABO/RH(D) (no units) Date Value 10/24/2016 O POSITIVE Antibody Screen (no units) Date Value 10/24/2016 NEG Historical Ab Scr Status (no units) Date Value 10/24/2016 NEGATIVE Anticipated Blood Products Ordered: Ordered 1 units of PRBC. Will the Patient Accept Blood: Yes IMAGING AND TESTS: CTA chest: 1 ?Status post mechanical aortic valve with bileaflet tilting disc that appears well seated with symmetric leaflet excursion. 2. Severe coronary calcifications. There is a SHELBY graft to the LAD that appears patent. ?Additionally, there are 2 aortocoronary bypass grafts that are occluded, though this study was not optimized for coronary artery evaluation 3. ?The thoracic aorta is normal in course and caliber with severe calcification of the ascending aorta. ?There is no acute aortic pathology. 4. ?The pelvic arteries are tortuous with severe calcification of the proximal common iliac arteries and narrowing of the ostium of the right common iliac artery (approximately 5 mm). ?The ostium of the left common iliac artery is approximately 8 mm. ?The ostium of the left external iliac artery is not well visualized due to significant calcium blooming artifact. ?The common femoral arteries are normal in course small in caliber with moderate predominantly distal calcification. ?The minimal luminal caliber throughout = 5 mm. 5. ?Proximity of the cardiovascular structures to the sternum: The left brachiocephalic vein lies in close proximity to the posterior aspect of the manubrium at 3 mm The right ventricle is in close proximity to the sternum 5 mm at the level of the lower 2 sternal wires The remainder of the cardiac and vascular structures including the bypass grafts lie a safe distance from the sternum. 6. ?Old granulomatous disease. 7. ?Stable heterogeneous opacity pattern in the left apex, most likely representing post radiation changes, with component of fibrosis presumed. Treated tumor again is no longer identifiable. Carotid US: Bilateral carotids with 40-59% stenosis NM PET cardiac stress: CONCLUSIONS: ?1. PET Perfusion Study: Abnormal. ?2. No evidence of scarred myocardium. ?3. No evidence of hibernation. ?4. There is severe (>20%) ischemia in the anterior wall. ?5. There is moderate (10-20%) ischemia in the inferior wall. ?6. Left ventricle is mildly dilated. The left ventricle systolic function is low normal. ?7. Right ventricle is mildly dilated. The right ventricle systolic function is mildly decreased. ?8. There is a drop in Ejection Fraction post stess. ?9. There is transient ischemic dilation of the LV cavity with stress. 10. This is a high risk scan. ?Gated Stress IR:3D:SC:CTAC Gated Rest IR:3D:SC:CTAC ?LVEF % 64 Spirometry: Spirometry indicates moderately severe obstruction. The reduced FVC may be due to obstruction: however concurrent restriction is not excluded. Lung volumes are suggested for clarification, if clinically indicated. The diffusing capacity is normal ECG: Sinus rhythm PETRA: Max aortic dimension 3.0 cm ? Ao < 3.8 Ejection Fraction ? ?65 % (visual est.) EF > 54 FINDINGS: LEFT VENTRICLE The left ventricle is normal in size. There is moderate concentric left ventricular hypertrophy. Left ventricular systolic function is normal. Wall Motion: All scored segments are normal. ? RIGHT VENTRICLE The right ventricle is normal in size. Right ventricular systolic function is normal. ? LEFT ATRIUM The left atrial cavity is dilated. ? RIGHT ATRIUM The right atrial cavity is normal in size. ? MITRAL VALVE There is moderate mitral annular calcification observed posterior. There is mild (1+ - 2+) mitral valve regurgitation due to excessive leaflet motion. There is moderate thickening of the anterior and posterior mitral leaflets. There is moderate calcification. 3D echocardiographic multi-planar reconstruction of the mitral valve was performed to assess anatomy and function. ? TRICUSPID VALVE There is mild (1+) tricuspid valve regurgitation. ? AORTIC VALVE Mechanical prosthetic valve size #21. There is trace aortic valve regurgitation. The peak gradient is 71 mmHg (peak velocity = 422.0 cm/s). The mean gradient is 32 mmHg. The aortic VTI is 0.8 cm. 3D echocardiographic multi-planar reconstruction of the aortic valve was performed to assess anatomy and function. ? AORTA The visualized aorta is normal in size. Measurements - Sinus 2.3 cm. Sinotubular junction 2.6 cm. Mid ascending aorta 3.0 cm. There is a moderate atheroma in the mid descending thoracic. DEVICES: none MEDICATIONS: Current Facility-Administered Medications: predniSONE 40 mg tab(s) (DELTASONE) 40 mg ORAL DAILY heparin iv infusion (STANDARD NOMOGRAM) 25,000 units in NaCl 0.45% 250 mL PREMIX 0-3,000 Units/hr INTRAVENOUS CONTINUOUS And heparin RATE CHANGE bolus 1,000-10,000 Units for subtherapeutic aptt results 1,000-10,000 Units INTRAVENOUS PRN furosemide 20 mg tab(s) (LASIX) 20 mg ORAL DAILY ipratropium 0.02 % 0.5 mg (ATROVENT) 0.5 mg INHALATION q 6 H PRN calcium carbonate 750 mg chewable tab(s) (TUMS) 750 mg ORAL BID PRN busPIRone 5 mg tab(s) (BUSPAR) 5 mg ORAL TID ranolazine ER 500 mg tab(s) (RANEXA) 500 mg ORAL BID loratadine 10 mg tab(s) (CLARITIN) 10 mg ORAL DAILY losartan 100 mg tab(s) (COZAAR) 100 mg ORAL DAILY amLODIPine 10 mg tab(s) (NORVASC) 10 mg ORAL DAILY aspirin, enteric coated 81 mg tab(s) 81 mg ORAL DAILY dextrose 40 % 15 g 15 g ORAL PRN Or glucagon 1 mg injection (GLUCAGEN) 1 mg INTRAMUSCULAR PRN Or dextrose 50 % 12.5 g injection 12.5 g INTRAVENOUS PRN acetaminophen 650 mg tab(s) (TYLENOL) 650 mg ORAL q 4 H PRN docusate sodium 100 mg cap(s) (COLACE) 100 mg ORAL BID PRN insulin lispro injection (rapid acting) (HumaLOG) SUBCUTANEOUS w MEALS insulin lispro injection (rapid acting) (HumaLOG) SUBCUTANEOUS AT BEDTIME polyethylene glycol 3350 17 g packet (MIRALAX, GLYCOLAX) 17 g ORAL DAILY PRN atorvastatin 80 mg tab(s) (LIPITOR) 80 mg ORAL DAILY guaiFENesin 1,200 mg ER tab(s) (MUCINEX) 1,200 mg ORAL q 12 H sodium chloride 0.65 % 2 [place] (AYR, OCEAN) 2 [place] EACH NOSTRIL PRN lactobacillus rhamnosus 10 billion cell (CULTURELLE) capsule 1 capsule ORAL DAILY Is the patient currently on any anticoagulant medications: Yes: Anticoagulant medications the patient is currently on: Coumadin This was adequately stopped before surgery: Yes, currently on heparin gtt PAIN AND ANXIETY EDUCATION AND MANAGEMENT: Patient has no concerns to address at this time. Will the Patient Require an Epidural? No Does the Patient have an Anticoagulation Bridge Plan? Yes: heparin gtt Additional Comments: none I have reviewed the Cardiothoracic Surgical Assessment and agree with its findings. During the course of the encounter the patient was prepared for anesthetic care. This conversation included anesthetic options, possible use of invasive monitoring, the risks, benefits, alternatives, and personnel that will be present for the anesthetic encounter. The patient agreed to proceed with the planned anesthetic. BETA YI COMPLIANCE: Is the Patient Scheduled for a CABG: Yes. Order has been written for Metoprolol 12.5mg PO upon patient arrival to preoperative area. SIGNATURE: Manuel Madsen DO PATIENT NAME: Flavia Case DATE: May 12, 2018 TIME: 2:27 PM PAGER/CONTACT #: [email or web address] Collected: 05/12/2018 Status: F Source: ARARAT 6:11 AM [facility] REPOSITORY TYPE CODE TESTS RESULT OUT OF RANGE REFERENCE UNITS LAB PSEC 9.7-13.0 sec High PT Sec 14.0 LAB INR 0.9-1.3 High PT INR 1.4 Result Comment: Vitamin K Antagonist (VKA) Therapeutic Range: INR 2 to 3 (Target INR of 2.5) Note: For patients treated with VKA drugs, such as warfarin, the [place] [employer] 2012 Guideline recommends a therapeutic INR range of 2 to 3 (target INR of 2.5). This recommendation includes high-risk patients with antiphospholipid syndrome with previous arterial or venous thromboembolism, current-generation mechanical or bioprosthetic aortic heart valve replacement. Note: Patients with mechanical aortic valve replacement and additional risk factors for thromboembolic events (atrial fibrillation, previous thromboembolism, LV dysfunction, hypercoagulable conditions) or an older generation mechanical AVR (i.e., ball in-Cage) or any mechanical MVR should have a INR therapeutic range of 2.5 to 3.5 (target INR of 3). Joe GH, et al. Chest 2012, 141:7S-47S Catie RA, et al. [facility] 2017, 70: 252-289 Performed By: #### PT, PTT, CBC, CMP, MG1 #### [facility] [address] [place], [place] [address] APTT Collected: 05/12/2018 Status: F Source: ARARAT 6:11 AM [facility] REPOSITORY TYPE CODE TESTS RESULT OUT OF RANGE REFERENCE UNITS LAB APTT 23.0-32.4 sec High APTT 51.4 Result Comment: Unfractionated Heparin Therapeutic Ranges: Standard Heparin Nomogram: 53 to 78 seconds (anti-Xa level of 0.3 to 0.7 U/ml) Low Dose/ACS Nomogram: 49 to 67 seconds (anti-Xa level of 0.2 to 0.5 U/ml) Stroke Treatment Nomogram: 49 to 67 seconds (anti-Xa level of 0.2 to 0.5 U/ml) Note: The APTT therapeutic range has been determined for the current lot of laboratory APTT reagent in use throughout the [facility]. Performed By: #### PT, PTT, CBC, CMP, MG1 #### [facility] [address] [place], [place] [address] CBC Collected: 05/12/2018 Status: F Source: ARARAT 6:11 AM [facility] REPOSITORY TYPE CODE TESTS RESULT OUT OF REFERENCE UNITS RANGE LAB WBC 3.70-11.00 k/uL WBC 4.76 LAB RBC 3.90-5.20 m/uL RBC 4.03 LAB HGB 11.5-15.5 g/dL Low Hemoglobin 10.9 LAB HCT 36.0-46.0 % Low Hematocrit 33.7 LAB MCV 80.0-100.0 fL MCV 83.6 LAB MCH 26.0-34.0 pG MCH 27.0 LAB MCHC 30.5-36.0 g/dL MCHC 32.3 LAB RDWCV 11.5-15.0 % RDW-CV High 16.4 LAB PLTCT 150-400 k/uL Low Platelet Count 146 LAB MPV 9.0-12.7 fL MPV 12.1 LAB ABSNUC <0.01 k/uL Absolute nRBC <0.01 Performed By: #### PT, PTT, CBC, CMP, MG1 #### [facility] [address] [id number] COMP METABOLIC PANEL Collected: 05/12/2018 Status: F Source: ARARAT 6:11 AM [facility] REPOSITORY TYPE CODE TESTS RESULT OUT OF REFERENCE UNITS RANGE LAB TP 6.3-8.0 g/dL Protein, Total 6.4 LAB ALB 3.9-4.9 g/dL Low Albumin 3.7 LAB CA 8.5-10.2 mg/dL Calcium, Total 9.3 LAB TBIL 0.2-1.3 mg/dL Bilirubin, Total 0.3 LAB ALKP 34-123 U/L Alkaline Phosphatase 65 LAB AST 13-35 U/L AST 27 LAB GLU 74-99 mg/dL Glucose High 151 Result Comment: The [place] Diabetes Association (ADA) provides guidance for cutoff values for fasting glucose and random glucose. The ADA defines fasting as no caloric intake for at least 8 hours. Fas ting plasma glucose results between 100 to 125 mg/dL indicate increased risk for diabetes (prediabetes). Fasting plasma glucose results greater than or equal to 126 mg/dL meet the criteria for diagnosis of diabetes. In the absence of unequivocal hyperglycemia, results should be confirmed by repeat testing. In a patient with classic symptoms of hyperglycemia or hyperglycemic crisis, random plasma glucose results greater than or equal to 200 mg/dL meet the criteria for diagnosis of diabetes. Reference: Standards of Medical Care in Diabetes 2016, [place] [employer]. Diabetes Care. 2016.39(Suppl 1). LAB BUN 7-21 mg/dL BUN 13 LAB CRET 0.58-0.96 mg/dL Creatinine 0.68 LAB NA 136-144 mmol/L Sodium 139 LAB K 3.7-5.1 mmol/L Potassium 4.1 LAB CL 97-105 mmol/L Chloride 101 LAB CO2 22-30 mmol/L CO2 22 LAB AGAP 9-18 mmol/L Anion Gap 16 LAB ALT 7-38 U/L ALT 28 LAB GFRAA eGFR- Amer. >60 LAB GFRNAA . eGFR-All Other Races >60 Result Comment: eGFR (Estimated GFR) Units of measure: mL/min/1.73 meters squared eGFR is derived from the reexpressed MDRD Study equation using the following parameters: serum creatinine, age, gender and race. The creatinine assay has been calibrated to be traceable to IDMS. An eGFR <60 mL/min/1.73m2 for >3 months is consistent with chronic kidney disease. Refer to KDOQI guidelines for clinical interpretation. In patients with unstable renal function, e.g. those with acute kidney injury, the eGFR may not accurately reflect actual GFR. Performed By: #### PT, PTT, CBC, CMP, MG1 #### [facility] [address] [place], [place] [address] MAGNESIUM Collected: 05/12/2018 Status: F Source: ARARAT 6:11 AM [facility] REPOSITORY TYPE CODE TESTS RESULT OUT OF REFERENCE UNITS RANGE LAB MG 1.7-2.3 mg/dL Magnesium 2.3 Performed By: #### PT, PTT, CBC, CMP, MG1 #### [facility] [address] [place], [place] [address] PROGRESS Observed: 05/12/2018 Status: COMPLETED Source: ARARAT 2:17 AM [facility] REPOSITORY HNO ID: [id number] Author: Juana Guido Service: Cardiovascular Medicine Author Type: Physician Type: Progress Notes Filed: 05/12/2018 10:27 AM Note Text: [facility] STAFF PHYSICIAN NOTE OF PERSONAL INVOLVEMENT IN CARE IMPRESSION/PLAN: 68 yo F with mechanical AVR and CAD s/p CABG, with hihg gradient across the mechanical prosthesis and both vein grafts occluded here for redo-AVR + CABG. Hypertensive to 160-180's, adjust antihypertensives. I have reviewed the documentation obtained and documented by the Fellow and have reviewed and updated the problem list as appropriate. I have personally performed a face to face assessment of the patient and have personally participated in the cabral components. I have discussed the case and management of the patient's care. STAFF PHYSICIAN: Juana Guido MD DATE OF SERVICE: May 12, 2018 TIME OF SERVICE: 10:09 AM [facility] PROGRESS NOTE PRIMARY SERVICE: Hvi Card Intervention HOSPITAL DAY: # 3 68 year old female with pmhx of CAD s/p CABG with recent crescendo angina,paroxysmal, symptomatic atrial fibirllation on coumadin, s/p mechanical AVR on coumadin. Needs redo AVR/CABG- tentatively scheduled for james on Monday INTERVAL HISTORY - No acute events overnight. Vitals stable. - Pulm consulted for copd/restriction to start predniseon 40 x 5 days, duonebs, screen for alpha 1 AT given family hx of COPD - Of note, had bradycardic episode in the 40?s on the monitor on Monday. Stopped amio and coreg with improvement in rates to 75. - Labs: Cr is pending today from 0.88. - Imaging: had CTA of C/A/P for preop planning, ultasound of carotids done PLAN - tentative AVR/CABG next week with James - monitor HR closely given brief episode of 40s on Monday. Holding amiodarone and carvedilol with HR 60-70s - continue heparin PHYSICAL EXAM BP 125/60 Pulse 61 Temp 36.4 ?C (97.6 ?F) (Oral) Resp 16 Ht 160 cm (5' 3) Wt 101.6 kg (224 lb) SpO2 97% BMI 39.68 kg/m? Intake/Output Summary (Last 24 hours) at 05/12/18 0559 Last data filed at 05/12/18 0400 Gross per 24 hour Intake 1010 ml Output 2500 ml Net -1490 ml General Appearance: No acute distress HEENT: PERRLA Lungs: Clear Heart: Regular rate AND rhythm Abdomen: Soft and Non-tender Skin: Warm Musculoskeletal: No deformities Neurologic/Psychiatric: Oriented to time, place AND person MEDICATIONS Current hospital medications: iv contrast (radiology procedure) INTRAVENOUS DIRECTED PRN heparin iv infusion (STANDARD NOMOGRAM) 25,000 units in NaCl 0.45% 250 mL PREMIX 0-3,000 Units/hr INTRAVENOUS CONTINUOUS heparin RATE CHANGE bolus 1,000-10,000 Units for subtherapeutic aptt results 1,000-10,000 Units INTRAVENOUS PRN furosemide 20 mg tab(s) (LASIX) 20 mg ORAL DAILY ipratropium 0.02 % 0.5 mg (ATROVENT) 0.5 mg INHALATION q 6 H PRN calcium carbonate 750 mg chewable tab(s) (TUMS) 750 mg ORAL BID PRN busPIRone 5 mg tab(s) (BUSPAR) 5 mg ORAL TID ranolazine ER 500 mg tab(s) (RANEXA) 500 mg ORAL BID loratadine 10 mg tab(s) (CLARITIN) 10 mg ORAL DAILY losartan 100 mg tab(s) (COZAAR) 100 mg ORAL DAILY amLODIPine 10 mg tab(s) (NORVASC) 10 mg ORAL DAILY aspirin, enteric coated 81 mg tab(s) 81 mg ORAL DAILY dextrose 40 % 15 g 15 g ORAL PRN glucagon 1 mg injection (GLUCAGEN) 1 mg INTRAMUSCULAR PRN dextrose 50 % 12.5 g injection 12.5 g INTRAVENOUS PRN acetaminophen 650 mg tab(s) (TYLENOL) 650 mg ORAL q 4 H PRN docusate sodium 100 mg cap(s) (COLACE) 100 mg ORAL BID PRN insulin lispro injection (rapid acting) (HumaLOG) SUBCUTANEOUS w MEALS insulin lispro injection (rapid acting) (HumaLOG) SUBCUTANEOUS AT BEDTIME polyethylene glycol 3350 17 g packet (MIRALAX, GLYCOLAX) 17 g ORAL DAILY PRN atorvastatin 80 mg tab(s) (LIPITOR) 80 mg ORAL DAILY guaiFENesin 1,200 mg ER tab(s) (MUCINEX) 1,200 mg ORAL q 12 H sodium chloride 0.65 % 2 [place] (AYR, OCEAN) 2 [place] EACH NOSTRIL PRN lactobacillus rhamnosus 10 billion cell (CULTURELLE) capsule 1 capsule ORAL DAILY DATA Recent Labs 05/11/18 0113 05/10/18 0623 WBC 5.82 4.98 HB 11.3* 11.3* HCT 34.9* 35.6* PLT 160 168 Recent Labs 05/11/18 0113 05/10/18 0623 NA 141 141 K 3.9 3.6* CO2 28 27 BUN 15 14 CREAT 0.88 0.78 GLUC 167* 110* MG 2.4* 2.3 IMAGING reviewed ASSESSMENT AND PLAN 68 year old female with pmhx of CAD s/p CABG with recent crescendo angina,paroxysmal, symptomatic atrial fibirllation on coumadin, s/p mechanical AVR on coumadin. She most recently admitted at [facility] from 04/18/2018 through 04/25/2018. During that admission she presented with chest pain and dyspnea and ultimately had a stress test. This showed no ischemia but given her recurrent symptoms, the patient was taken for cath on 04/20. This showed a 100% SVG-RCA, 100% SVG-LCx and a patent SHELBY-lAD. The AV looked good during the catheterization. She was sent for PCI but despite multiple dilations, no stent was able to pass due to excessive calcifications and the procedure was aborted. She presented to [place] ED with recurrent anginal symptoms and was transferred to [facility] for further evaluation. 68 year old female with pmhx of CAD s/p CABG with recent crescendo angina,paroxysmal, symptomatic atrial fibirllation on coumadin, s/p mechanical AVR on coumadin. She most recently admitted at [facility] from 04/18/2018 through 04/25/2018. During that admission she presented with chest pain and dyspnea and ultimately had a stress test. This showed no ischemia but given her recurrent symptoms, the patient was taken for cath on 04/20. This showed a 100% SVG-RCA, 100% SVG-LCx and a patent SHELBY-lAD. The AV looked good during the catheterization. She was sent for PCI but despite multiple dilations, no stent was able to pass due to excessive calcifications and the procedure was aborted. [facility] and [facility] to [facility] for further evaluation. Problem Coronary Artery Disease Involving [place] Coronary Artery of [place] Heart With Unstable Angina Pectoris (Hcc) ? History -s/p CABG with mechanical AVR ? 03/2018 angina pain stress test. This showed no ischemia ? 03/2018 [facility] LM distal 50% LAD - pLAD 85% eccentric, mLAD fills via SHELBY, D1 fills via L-L collaterals LCx- pLCx 25-50% stenosis RCA - pRCA with 95%, mRCA with 50%, dRCA occluded and fills via L-R collaterals SHELBY-LAD patent SVG-LCx occluded SVG-RCA occluded unsuccessful attempt at PCI of RCA ? BNP 653 ? PET There is severe (>20%) ischemia in the anterior wall. There is moderate (10-20%) ischemia in the inferior wall ? 05/09/2018 responded well to 1 dose of IV lasix ? Plan ASA 81mg daily coumadin held heparin gtt per nomagram cont coreg 3.125mg BID (Home BB is atenolol) Cont arb cont norvasc stop Imdur (will need to hold for PET and cautious use in symptomatic ) oral lasix CTS consult for redo AVR/CABG/MAZE dentures- no dental needed ? ? ? History of Mechanical Aortic Valve Replacement ? 1996 on coumadin at home ? 03/2018 OSH echo ? Echo The peak gradient is 98 mmHg (peak velocity = 494.0 cm/s). The mean gradient is 48 ?mmHg. CTS surgery consult for redo AVR/CABG+/_ MAZE ? Acute On Chronic Diastolic Heart Failure (Hcc) ? see plan CAD for management ? Copd (Chronic Obstructive Pulmonary Disease) (Hcc) ? on nebs at home- prn Rhinosinusitis with cough and increased sputum since last hospitalizations- improved slightly with amoxicillin that was given for UTI-(has completed that course) CXR okay much improved with treatment ? Plan Prednisone per pulmonary plan resume mucinex that was helping with sputum nebs as needed- nasal spray- saline will try augmentin (interactions with zithromax and ranexa) pulmonary consult ? ? Case to be discussed with staff SIGNATURE: Seferino Marrufo MD PATIENT NAME: Flavia Case DATE: May 12, 2018 TIME: 2:17 AM PAGER/CONTACT #: SEE BELOW For communication after 5 pm on weekdays and after 12 pm on weekends, please page the following: - Clinical Cardiology patients on all floors: page [phone] - Other Cardiology patients on J5 and J6: page [phone] - Other Cardiology patients on J7 and J8: page [phone] ETX [id number] ECG COMPLETE W Observed: 05/12/2018 Status: F Source: [place] INTERPRETATION 12:37 AM [facility] REPOSITORY NAME : FLAVIA CASE PID : [id number] : 1950 Gender : Female Race : ORD : [id number] Procedure Date : May 12 2018 00:37:57 Edit Date : May 15 2018 09:49:18 Diagnosis:NORMAL SINUS RHYTHM NONSPECIFIC INTRAVENTRICULAR CONDUCTION DELAY BORDERLINE ECG Confirmed by SIDRA DE LA TORRE M.D. ([id number]) on 05/15/2018 9:31:49 AM Ventricular Rate : 66 BPM Atrial Rate : 66 BPM P-R Interval : 190 ms QRS Duration : 120 ms Q-T Interval : 454 ms QTC Calculation(Bezet) : 475 ms P [place] : 54 degrees R [place] : 76 degrees T [place] : 33 degrees Test Reason : ANGINA Location : 361 : [id number] Overread By : SIDRA DE LA TORRE M.D. Edited By : SIDRA DE LA TORRE M.D. Referred By : MATTI LEDESMA Acquired by : RENU WINTER NURSING PROG Observed: 05/11/2018 Status: COMPLETED Source: [place] 10:46 PM [facility] [place] REPOSITORY HNO ID: [id number] Author: Aliza (Rn) KOKO Casarez Service: (none) Author Type: Registered Nurse Type: Nursing Progress Note Filed: 05/11/2018 10:48 PM Note Text: Nursing Progress Note Patient Name: Flavia Case [address] BP 160/69 HR 74 pt feeling lightheaded and flushed LIP paged via alpha 23994. 1L o2 applied. Pt. AANDOx3, bed in low and locked position, call mcmanus within reach, will continue to monitor. This note was completed by: Aliza Casarez RN ALPHA 1 ANTITRYPSIN Collected: 05/11/2018 Status: F Source: [place] 9:07 PM [facility] [place] REPOSITORY TYPE CODE TESTS RESULT OUT OF REFERENCE UNITS RANGE LAB AAT 90-200 mg/dL Alpha 1 antitrypsin 171 Performed By: #### AAT #### [facility] [address] [id number] STAPH AUREUS PCR Collected: 05/11/2018 Status: F Source: [place] 5:36 PM [facility] REPOSITORY TYPE CODE TESTS RESULT OUT OF REFERENCE UNITS RANGE LAB [facility] Nasal S aureus Spec Source LAB MRSRES Negative for MRSA MRSA by PCR. PCR LAB SARES Negative for Staph Staphylococcus aureus PCR aureus by PCR. Performed By: #### SAPCR #### [facility] [address], [place] [id number] NURSING PROG Observed: 05/11/2018 Status: COMPLETED Source: [place] 2:38 PM [facility] REPOSITORY HNO ID: [id number] Author: Jessie SamuelsRn) KOKO Parker Service: Nursing Author Type: Registered Nurse Type: Nursing Progress Note Filed: 05/11/2018 2:47 PM Note Text: Problem(s) / Intervention(s) PATIENT NAME: Flavia Case The patient was observed having HR in 40s BP 193/78. The following intervention(s) were initiated :[place] [phone]. The following observation(s) were made: Vitals taken and patient remains under constant observation This note was completed by: Jessie Parker RN CONSULT Observed: 05/11/2018 Status: COMPLETED Source: [place] 1:35 PM [facility] REPOSITORY HNO ID: [id number] Author: Stacy Salazar Service: Pulmonary Disease Author Type: Physician Type: Consults Filed: 05/11/2018 9:56 PM Note Text: PULMONARY CONSULT SERVICE INITIAL CONSULT NOTE Patient Name: Flavia Case Primary Care Physician: Keri Gamez MD REASON FOR CONSULT: pre op evaluation REQUESTING PHYSICIAN: SYMONE SONG?? IMPRESSION: Flavia Case is a 68 year old yrs old female with PMH of COPD, CAD, pAFIB, AVR being evaluated for re do CABG, AVR. COPD had recent flare about 2-3 months ago treated with OCS burst, and again worsening sx of SOB, productive cough in the last three weeks likely represent another COPD flare currently in partial recovery but not back to baseline. Lung function largely stable compared with 2017 result. Patient would likely benefit from LAMA-LABA regimen in the long run. RECOMMENDATIONS: - prednisone 40 x 5 days - duoneb scheduled q6hr scheduled, plus q4 prn as needed - please give patient incentive spirometry device to encourage lung expansion - post surgery, would recommend adding LAMA-LABA to COPD regimen, such as Anoro - rest of pre-op assessments as below. - screen for alpha-1 AT deficiency (ordered) given family history of COPD - influenza and pneumococcal vaccination UTD Will follow. HPI Flavia Case is a 68 year old yrs old female with PMH of 60 pack year prior smoker, quit 1995, COPD (moderate severe obstruction, emphysema type, no peripheral eosinophilia), CAD, AVR, AFIB, being evaluated for redo CABG AVR. Regarding COPD, diagnosed multiple years ago, usually denied cough/sputum production. Last flare was about 1-2 months ago treated with OCS buerst. No recent PNA. No home maintenance inhaler regimen other than proair. Doing okay until 3 weeks ago with increased cough and thick yellow sputum. She was on PO abx already at that time for UTI. Was not given prednisone. Currently felt breathing improved but not completely back to baseline. Never been in pulmonary rehab Family history of COPD: yes, smoker No family history of liver disease Past Medical History: PAST MEDICAL HISTORY Diagnosis Date - Acute gastritis without mention of hemorrhage - Acute peptic ulcer - Anxiety - ASHD (arteriosclerotic heart disease) Dr. Corado - Benign neoplasm of colon - Carpal tunnel syndrome - COPD (chronic obstructive pulmonary disease) (HCC) - Corns and callosities 02/11/2010 - Dermatophytosis of nail 02/11/2010 - Diabetes mellitus (HCC) - Diaphragmatic hernia without mention of obstruction or gangrene - Diastolic CHF (HCC) - Eczema - External hemorrhoids without mention of complication - Fatty liver - Hepatosplenomegaly - Hirsutism 10/21/2010 - Hyperlipidemia - Hypertension - Internal hemorrhoids without mention of complication - Lung cancer (HCC) 09/[address] Lizarraga. Stage I squamous cell s/p radiation - Multinodular thyroid benign - Obesity, unspecified - Overactive bladder Dr. Recio - Postsurgical aortocoronary bypass status triple bypass, aortic valve replacement - Pulmonary hypertension (HCC) - Radiation disease - S/P AVR - Seasonal allergies - Squamous cell carcinoma neck, back, leg, left lung - Toe deformity 02/11/2010 Past Surgical History: PAST SURGICAL HISTORY Procedure Laterality Date - CABG, ARTERY-VEIN, THREE 1996 CABG, three grafts, replace heart valve - DELIVERY ONLY x3 - COLONOSCOP W/ OR W/O [facility] SPEC 01/02/2001, 09/21/2005 Colonoscopy - COLONOSCOP W/ OR W/O [facility] SPEC 04/26/06 - EGD W/O OR W/BRUSH/WASH 04/26/06 - EGD W/O OR W/BRUSH/WASH 01/12/1984 EGD with biopsy of antral ulcer - LAPAROSCOPIC CHOLEYCYSTECTOMY 09-06-12 - PAST SURGICAL HISTORY OF skin cancer from knee / benign spot from back - PAST SURGICAL HISTORY OF cataract removal bilateral - TOTAL ABDOM HYSTERECTOMY 1978 for endometriosis, ovaries spared Family History: FAMILY HISTORY Problem Relation Age of Onset - Heart Father - Heart Mother - Thyroid Mother Goiter - Diabetes Maternal Grandfather - other (stomach cancer) Sister Adenocarcinoma - Heart Daughter - Colon Cancer Sister 52 Social History: Social History Substance Use Topics - Smoking status: Former Smoker Packs/day: 2.00 Years: 36.00 Types: Cigarettes Start date: 1962 Quit date: 06/28/1995 - Smokeless tobacco: Never Used Comment: Both parents smoked in childhood home. Ex-spouse of 38 years also a smoker. - Alcohol use No Medications: Prior to Admission Medications: furosemide (LASIX) 20 mg tablet Take 1 tablet by mouth once daily. magnesium oxide 400 mg cap Take 1 capsule by mouth w MEALS. atenolol (TENORMIN) 50 mg tablet Take 1 tablet by mouth once daily. warfarin (COUMADIN) 6 mg tablet Take 3 mg Tues, Thurs and 6 mg all other days. amLODIPine (NORVASC) 10 mg tablet Take 1 tablet by mouth once daily. loratadine (CLARITIN) 10 mg tablet Take 1 tablet by mouth once daily. busPIRone (BUSPAR) 5 mg tablet Take 1 tablet by mouth three times daily. amiodarone (PACERONE) 200 mg tablet Take 1 tablet by mouth once daily. potassium chloride ER (K-DUR, KLOR-CON) 20 mEq tablet Take 1 tablet by mouth once daily. meclizine (ANTIVERT) 12.5 mg tab Take 1 tablet by mouth three times daily as needed (dizziness). nystatin-triamcinolone (MYCOLOG II) cream Apply 1 application to affected area twice daily as needed. Apply to affected area for 2 weeks linagliptin (TRADJENTA) 5 mg tab Take 1 tablet by mouth once daily. ALPRAZolam (XANAX) 0.25 mg tablet Take 1 tablet by mouth every 6 hours as needed for Anxiety for up to 20 doses. ranolazine ER (RANEXA) 500 mg 12 hr tablet Take 1 tablet by mouth twice daily. COMPOUNDED PRESCRIPTION HOME BP MONITOR, DX: HTN LABILE Dx: Hypertension goal BP (blood pressure) < 140/90 ICD-10 I10 COMPOUNDED PRESCRIPTION Home scale for daily weight check. Dx: CHF-diastolic >Nebulizer For Home Nebulizer for home use. Diagnosis: COPD ICD-10 J42 guaiFENesin (MUCINEX) 600 mg 12 hr tablet Take 2 tablets by mouth twice daily. ferrous sulfate 325 mg (65 mg iron) tablet take 1 tablet by mouth twice a day with meals aspirin, enteric coated (ASPIRIN, ENTERIC COATED) 81 mg EC tablet Take 1 tablet by mouth once daily. lansoprazole (PREVACID) 30 mg capsule take 1 capsule by mouth every morning AT 6 AM and every evening AT 4 PM before meals losartan (COZAAR) 100 mg tablet take 1 tablet by mouth once daily nitroglycerin sublingual (NITROSTAT) 0.4 mg SL tablet Dissolve 1 tablet under the tongue as needed. DISSOLVE ON TONGUE FOR CHEST PAIN. IF NO PAIN RELIEF, CALL 911 atorvastatin (LIPITOR) 20 mg tablet take 1 tablet by mouth once daily metFORMIN ER (GLUCOPHAGE XR) 500 mg 24 hr tablet take 2 tablets by mouth twice a day oxybutynin ER (DITROPAN XL) 10 mg 24 hr tablet take 1 tablet by mouth once daily mupirocin (BACTROBAN) 2 % ointment Apply 1 application to affected area three times daily. Location: Inside nose albuterol HFA (PROAIR HFA) 90 mcg/actuation inhaler Inhale 2 Puffs as instructed every 4 hours as needed. polyethylene glycol 3350 (MIRALAX, GLYCOLAX) 17 gram/dose powder Take 17 g by mouth once daily. dissolve in water. glipiZIDE XL (GLUCOTROL XL) 10 mg 24 hr tablet Take 1 tablet by mouth once daily. diclofenac sodium (VOLTAREN) 1 % topical gel Apply 2 g to affected area twice daily as needed. Both heels Leg Brace (KNEE SUPPORT BRACE) misc 1 Each continuous. DX: S89.92XA Leg Brace (KNEE SUPPORT BRACE) misc 1 Each continuous. COMPOUNDED PRESCRIPTION NEBULIZER SUPPLIES, MEDICATION CUP, TUBING FOR USE WITH NEBULIZER MACHINE DX J40.0 iv contrast (will be provided with radiology test) CT Cardiac - No IV access, insert saline lock prior to the sedation, infusion, injection for imaging exam. Discontinue saline lock post exam. If Pt. has a central line or IVAD, may access for administration according to line specific nursing protocol. Once exam is complete flush line and de-access according to line specific nursing protocol in the CT contrast administration guidelines link. isosorbide mononitrate ER (IMDUR) 120 mg 24 hr tablet Take 120 mg by mouth once daily. Current Medications: Current hospital medications: iv contrast (radiology procedure) INTRAVENOUS DIRECTED PRN heparin iv infusion (STANDARD NOMOGRAM) 25,000 units in NaCl 0.45% 250 mL PREMIX 0-3,000 Units/hr INTRAVENOUS CONTINUOUS heparin RATE CHANGE bolus 1,000-10,000 Units for subtherapeutic aptt results 1,000-10,000 Units INTRAVENOUS PRN furosemide 20 mg tab(s) (LASIX) 20 mg ORAL DAILY ipratropium 0.02 % 0.5 mg (ATROVENT) 0.5 mg INHALATION q 6 H PRN calcium carbonate 750 mg chewable tab(s) (TUMS) 750 mg ORAL BID PRN busPIRone 5 mg tab(s) (BUSPAR) 5 mg ORAL TID ranolazine ER 500 mg tab(s) (RANEXA) 500 mg ORAL BID amiodarone 200 mg tab(s) (PACERONE) 200 mg ORAL DAILY loratadine 10 mg tab(s) (CLARITIN) 10 mg ORAL DAILY losartan 100 mg tab(s) (COZAAR) 100 mg ORAL DAILY carvedilol 3.125 mg tab(s) (COREG) 3.125 mg ORAL BID w MEALS amLODIPine 10 mg tab(s) (NORVASC) 10 mg ORAL DAILY aspirin, enteric coated 81 mg tab(s) 81 mg ORAL DAILY dextrose 40 % 15 g 15 g ORAL PRN glucagon 1 mg injection (GLUCAGEN) 1 mg INTRAMUSCULAR PRN dextrose 50 % 12.5 g injection 12.5 g INTRAVENOUS PRN acetaminophen 650 mg tab(s) (TYLENOL) 650 mg ORAL q 4 H PRN docusate sodium 100 mg cap(s) (COLACE) 100 mg ORAL BID PRN insulin lispro injection (rapid acting) (HumaLOG) SUBCUTANEOUS w MEALS insulin lispro injection (rapid acting) (HumaLOG) SUBCUTANEOUS AT BEDTIME polyethylene glycol 3350 17 g packet (MIRALAX, GLYCOLAX) 17 g ORAL DAILY PRN atorvastatin 80 mg tab(s) (LIPITOR) 80 mg ORAL DAILY guaiFENesin 1,200 mg ER tab(s) (MUCINEX) 1,200 mg ORAL q 12 H sodium chloride 0.65 % 2 [place] (AYR, OCEAN) 2 [place] EACH NOSTRIL PRN amoxicillin-clavulanic acid 875 mg tab(s) (AUGMENTIN) 875 mg ORAL q 12 H lactobacillus rhamnosus 10 billion cell (CULTURELLE) capsule 1 capsule ORAL DAILY REVIEW OF SYSTEMS GEN: No fevers/chills, night sweats, or weight changes HENT: No rhinorrhea, pharyngitis, sinus drainage, congestion, or oral ulcers EYES: No sudden vision changes CV: No chest pain, but intermittent flutter sensation RESP: As above GI: No nausea/vomiting/constipation/diarrhea : No dysuria, no hematuria MSK: No joint swelling NEURO: No sudden weakness or numbness SKIN: No rash PSYCH: No hallucinations Physical Exam: BP 164/71 Pulse 61 Temp 36.8 ?C (98.2 ?F) (Oral) Resp 18 Ht 160 cm (5' 3) Wt 100.8 kg (222 lb 3.2 oz) SpO2 96% BMI 39.36 kg/m? General appearance: Well appearing, alert, in no acute distress Skin: Skin color, turgor normal, No suspicious rashes or lesions Eyes: Anicteric sclera. Pupils are equally round and reactive to light. Extraocular movements are intact. Oropharynx: Lips, mucosa, and tongue normal, oropharynx normal Neck: Supple, no adenopathy; thyroid symmetric, normal size, no bruits Lungs:wheezing and prolonged expiratory phase with forced exhalation. No rhonchi, rales Heart: NS1S2, no, gallop, or rubs Abdomen: Abdomen soft, non-tender. Bowel sounds normal. No masses, organomegaly Extremities: No deformities, edema, clubbing or cyanosis. Peripheral pulses present. Neuro: Reflexes normal and symmetric. Sensation grossly intact. No focal motor deficit Fluid Balance: Intake/Output Summary (Last 24 hours) at 05/11/18 1336 Last data filed at 05/11/18 1200 Gross per 24 hour Intake 848 ml Output 1600 ml Net -752 ml DATA: Lab Data: Recent Labs 05/11/18 0113 05/10/18 0623 05/09/18220 WBC 5.82 4.98 7.17 HB 11.3* 11.3* 11.5 HCT 34.9* 35.6* 35.2* PLT 160 168 207 NA 141 141 138 K 3.9 3.6* 4.2 CHLOR 98 100 102 CO2 28 27 20* BUN 15 14 16 CREAT 0.88 0.78 0.73 GLUC 167* 110* 90 MG 2.4* 2.3 2.3 ALT 28 26 29 AST 27 25 25 TBILI 0.3 0.3 0.3 ALKPHOS 69 71 79 ABG: No results for input(s): BODSITE, CTYPE, PH, PCO2, PO2, BE, HCO3, CO2CT, O2HB, COHB, MHGB, TEMP, PHTC, PCO2T, PO2T, O2AD in the last 72 hours. Coags: Recent Labs 05/11/18 0113 05/10/18 0605/09/18220 INR 1.6* 1.9* 2.5* Immunosuppresion Levels: No results found for: FK506, IGG, CSA 05/11/2018 FEV1/FVC 65%, FEV1 53 %, FVC 61%, DLCO 82%, DL/VA 101%. moderately severe obstruction 01/2017 FEV1 64%, FEV1/FVC 71, DLCO 78% Lung volume 2016:TLC 79% PREOPERATIVE EVALUATION: This patients [facility] Respiratory Failure Index is 10.1% risk of respiratory failure. Sharma respiratory failure risk model [1] predicts 3.1% risk of postoperative respiratory failure. Postoperative respiratory failure (PRF) is considered as failure to wean from mechanical ventilation within 48 hours of surgery or unplanned intubation/reintubation postoperatively. The validated risk calculator provides a risk estimate of PRF and is anticipated to aid in surgical decision-making and informed patient consent. These risk do not preclude the patient from a medically necessary surgical procedure. We would recommend the following intervention to minimize the patients risk for respiratory complications: # Lung Expansion Maneuvers: ? Provide teaching on using incentive spirometry AND deep breathing exercises prior to surgery; these should be done 10X an hour, every hour while awake. ? Provide adequate suctioning if indicated ? Intermittent positive pressure breathing or CPAP @ 10 cm H20 as needed # Early mobilization of the patient, aggressive PT/OT # Pain control: ? Adequate pain control to encourage deep breathing and ambulation # Ventilator/post extubation ? Low tidal volume ventilation (~6 ml/kg) when intubated. ? Post operatively consider extubating to BIPAP (especially if the patient is drowsy or has evidence of hypercapnia) # Other: ? Diuresis to maintain patient at dry weight ? Adequate glycemic control (target blood glucose <180) ? Bowel regimen: prevention of constipation and abdominal distension, aspiration precautions, NGT if needed. ? DVT prophylaxis [1] Zachary H, Zachary PK, Jackie X, Trent SamJ, Татьяна S, Akanksha RA, Sheela ARNDT. Development and validation of a risk calculator predicting postoperative respiratory failure. Chest. 2011 Nov;140(5):1207-15. Epub 2010Nov 04. Thank you for this interesting consult. Page [phone] for Pulmonary On-call after 5:00pm on weekdays and 12 pm on weekends Patient staffed with . The recommendations contained in this consult note are preliminary until co-signed by staff. SIGNATURE: Joaquin Barth MD [facility] PAGER: [phone] DATE of SERVICE: May 11, 2018 TIME of SERVICE: 1:36 PM Statement of Personal Involvement by the Attending Physician I have personally interviewed and examined the patient. I have personally verified elements of the exam listed above. I have personally and independently reviewed CXR images and results (see data section). I have personally reviewed the resident's note and concur with my comments below representing annotations based on this direct personal review. agree with plan per dr. barth above. risk increased for cabg/valve but not prohibitive in my view. . Stacy Salazar M.D., M.S. PROGRESS Observed: 05/11/2018 Status: COMPLETED Source: [facility] 1:10 PM [facility] HNO ID: [id number] Author: Debbie Spears Service: Cardiovascular Medicine Author Type: Nurse Practitioner Type: Progress Notes Filed: 05/11/2018 1:11 PM Note Text: [facility] CARDI[facility]ASCULAR [facility]ICINE PROGRESS NOTE PRIMARY SERVICE: Hvi Card Intervention HOSPITAL DAY: # 2 INTERVAL HISTORY no acute events for CT today no cp cough still there but improved PHYSICAL EXAM BP 164/71 Pulse 61 Temp 36.8 ?C (98.2 ?F) (Oral) Resp 18 Ht 160 cm (5' 3) Wt 100.8 kg (222 lb 3.2 oz) SpO2 96% BMI 39.36 kg/m? Intake/Output Summary (Last 24 hours) at 05/11/18 1310 Last data filed at 05/11/18 1200 Gross per 24 hour Intake 848 ml Output 1600 ml Net -752 ml General: no acute distress- walking around hallways without difficulty Skin warm and dry Neck- no JVP +bruits vs transmitted murmur Lungs- breath sounds clear throughout. Heart- RRR, + valve sound, II/ systolic murmur Abd- Soft nontedner, +BSx4 ext- trace edema, distal pulses intact. Musculoskeletal: No deformities Neurologic/Psychiatric: Oriented to time, place AND person, MAEx4 and No gross focal neurologic deficits MEDICATIONS Current hospital medications: iv contrast (radiology procedure) INTRAVENOUS DIRECTED PRN heparin iv infusion (STANDARD NOMOGRAM) 25,000 units in NaCl 0.45% 250 mL PREMIX 0-3,000 Units/hr INTRAVENOUS CONTINUOUS heparin RATE CHANGE bolus 1,000-10,000 Units for subtherapeutic aptt results 1,000-10,000 Units INTRAVENOUS PRN furosemide 20 mg tab(s) (LASIX) 20 mg ORAL DAILY ipratropium 0.02 % 0.5 mg (ATROVENT) 0.5 mg INHALATION q 6 H PRN calcium carbonate 750 mg chewable tab(s) (TUMS) 750 mg ORAL BID PRN busPIRone 5 mg tab(s) (BUSPAR) 5 mg ORAL TID ranolazine ER 500 mg tab(s) (RANEXA) 500 mg ORAL BID amiodarone 200 mg tab(s) (PACERONE) 200 mg ORAL DAILY loratadine 10 mg tab(s) (CLARITIN) 10 mg ORAL DAILY losartan 100 mg tab(s) (COZAAR) 100 mg ORAL DAILY carvedilol 3.125 mg tab(s) (COREG) 3.125 mg ORAL BID w MEALS amLODIPine 10 mg tab(s) (NORVASC) 10 mg ORAL DAILY aspirin, enteric coated 81 mg tab(s) 81 mg ORAL DAILY dextrose 40 % 15 g 15 g ORAL PRN glucagon 1 mg injection (GLUCAGEN) 1 mg INTRAMUSCULAR PRN dextrose 50 % 12.5 g injection 12.5 g INTRAVENOUS PRN acetaminophen 650 mg tab(s) (TYLENOL) 650 mg ORAL q 4 H PRN docusate sodium 100 mg cap(s) (COLACE) 100 mg ORAL BID PRN insulin lispro injection (rapid acting) (HumaLOG) SUBCUTANEOUS w MEALS insulin lispro injection (rapid acting) (HumaLOG) SUBCUTANEOUS AT BEDTIME polyethylene glycol 3350 17 g packet (MIRALAX, GLYCOLAX) 17 g ORAL DAILY PRN atorvastatin 80 mg tab(s) (LIPITOR) 80 mg ORAL DAILY guaiFENesin 1,200 mg ER tab(s) (MUCINEX) 1,200 mg ORAL q 12 H sodium chloride 0.65 % 2 [place] (AYR, OCEAN) 2 [place] EACH NOSTRIL PRN amoxicillin-clavulanic acid 875 mg tab(s) (AUGMENTIN) 875 mg ORAL q 12 H lactobacillus rhamnosus 10 billion cell (CULTURELLE) capsule 1 capsule ORAL DAILY DATA Recent Labs 05/11/18 0113 05/10/18 0623 05/09/18 0221 WBC 5.82 4.98 7.17 HB 11.3* 11.3* 11.5 HCT 34.9* 35.6* 35.2* PLT 160 168 207 Recent Labs 05/11/18 0113 05/10/18 0623 05/09/18 0221 NA 141 141 138 K 3.9 3.6* 4.2 CO2 28 27 20* BUN 15 14 16 CREAT 0.88 0.78 0.73 GLUC 167* 110* 90 MG 2.4* 2.3 2.3 IMAGING reviewed ASSESSMENT AND PLAN 68 year old female with pmhx of CAD s/p CABG with recent crescendo angina,paroxysmal, symptomatic atrial fibirllation on coumadin, s/p mechanical AVR on coumadin. She most recently admitted at [facility] from 04/18/2018 through 04/25/2018. During that admission she presented with chest pain and dyspnea and ultimately had a stress test. This showed no ischemia but given her recurrent symptoms, the patient was taken for cath on 04/20. This showed a 100% SVG-RCA, 100% SVG-LCx and a patent SHELBY-lAD. The AV looked good during the catheterization. She was sent for PCI but despite multiple dilations, no stent was able to pass due to excessive calcifications and the procedure was aborted. She presented to [place] ED with recurrent anginal symptoms and was transferred to [facility] for further evaluation. Problem Coronary Artery Disease Involving [place] Coronary Artery of [place] Heart With Unstable Angina Pectoris (Hcc) History -s/p CABG with mechanical AVR 03/2018 angina pain stress test. This showed no ischemia 03/2018 [facility] LM distal 50% LAD - pLAD 85% eccentric, mLAD fills via SHELBY, D1 fills via L-L collaterals LCx- pLCx 25-50% stenosis RCA - pRCA with 95%, mRCA with 50%, dRCA occluded and fills via L-R collaterals SHELBY-LAD patent SVG-LCx occluded SVG-RCA occluded unsuccessful attempt at PCI of RCA BNP 653 PET There is severe (>20%) ischemia in the anterior wall. There is moderate (10-20%) ischemia in the inferior wall 05/09/2018 responded well to 1 dose of IV lasix Plan ASA 81mg daily coumadin held heparin gtt per nomagram cont coreg 3.125mg BID (Home BB is atenolol) Cont arb cont norvasc stop Imdur (will need to hold for PET and cautious use in symptomatic ) oral lasix CTS consult for redo AVR/CABG/MAZE dentures- no dental needed History of Mechanical Aortic Valve Replacement 1996 on coumadin at home 03/2018 OSH echo Echo The peak gradient is 98 mmHg (peak velocity = 494.0 cm/s). The mean gradient is 48 ?mmHg. CTS surgery consult for redo AVR/CABG+/_ MAZE Acute On Chronic Diastolic Heart Failure (Hcc) see plan CAD for management Copd (Chronic Obstructive Pulmonary Disease) ([facility]) on nebs at home- prn Rhinosinusitis with cough and increased sputum since last hospitalizations- improved slightly with amoxicillin that was given for UTI-(has completed that course) CXR okay much improved with treatment Plan resume mucinex that was helping with sputum nebs as needed- nasal spray- saline will try augmentin (interactions with zithromax and ranexa) pulmonary consult Case to be discussed with staff- Dr. Song SIGNATURE: Debbie Spears APRN.CNP PATIENT NAME: Flavia Case DATE: May 11, 2018 TIME: 1:10 PM PAGER/CONTACT #: SEE BELOW For communication after 5 pm on weekdays and after 12 pm on weekends, please page the following: - Clinical Cardiology patients on all floors: page [phone] - Other Cardiology patients on J5 and J6: page [phone] - Other Cardiology patients on J7 and J8: page [phone] ETX [id number] CTA C/A/P (GATED) W Observed: 05/11/2018 Status: F Source: [facility] IVCON 1:03 PM [facility] REPOSITORY * * *Final Report* * * DATE OF EXAM: May 11 2018 1:03PM JQC 0133 - CTA C/A/P (GATED) W IVCON / PROCEDURE REASON: Aortic valve stenosis, non-rheumatic * * * * Physician Interpretation * * * * Examination: CTA chest, CTA abdomen and pelvis dated 05/11/2018 1:03 PM. Comparison: CT chest 01/23/[address] abdomen and pelvis 04/01/2013 Indication: 68 year old Female with history of coronary artery disease status post 3 vessel CABG and mechanical AVR (1996), paroxysmal atrial fibrillation, L apical lung cancer s/p radiation (2016), who was admitted with worsening angina in the setting of occluded vein grafts not amenable to PCI and who is being evaluated for redo aortic valve replacement and CABG. Technique: Multi-detector CT technology was employed (Siemens Somatom Force dual source scanner). Spiral imaging of the heart with retrospective gating with sub-millimeter slice reconstruction throughout the cardiac cycle for dynamic 4-D assessment, following contrast administration. Additional single-phase, Flash mode spiral imaging of the chest/abdomen/pelvis with 1 and 3-mm slice reconstruction without additional contrast administration. A low-osmolar contrast agent was used (60 cc of Omnipaque 350). CT Dose-Length Product (DLP): [address] Dose Reduction Employed: Automated exposure control(AEC) and iterative recon For optimization of anatomic evaluation, multiplanar reconstruction, maximum intensity projections, and advanced 3-D off-line postprocessing were performed on a dedicated stand-alone workstation under the direct supervision of the interpreting physician. RESULT: Potential study limitations: None. CHEST: 8 mm hypodense lesion within the left thyroid as well as an adjacent punctate calcification. The chest wall is remarkable for prior median sternotomy with sternal wires and intact sternal union. The mediastinum and pericardium are unremarkable. No significant adenopathy is identified in the axilla, mediastinum, and janice, though there is a single calcified lymph node in the mediastinum. The pulmonary arteries are mildly dilated (main PA 3.2 cm), as can be seen in pulmonary hypertension. Lung windows reveal no acute abnormalities. There is mild upper lobe predominant emphysematous changes. There is no infiltrate, or pleural effusion. Within the left apex, heterogeneous opacities are noted related to posttreatment changes, with treated tumor again difficult to identify. There are a few small noncalcified nodules in the lungs. For example, there is a stable subpleural 3 mm nodule in the left lower lobe (image 153) and a stable, 3 mm subpleural nodule in the left upper lobe (image 108). There are also a few surgical clips noted in the anterior left lung/mediastinum. There are a few calcified nodules in the lungs bilaterally including a stable,7 mm nodule within the right lower lobe consistent with granulomatous disease. The cardiac chambers demonstrate normal atrioventricular and ventriculoarterial concordance, and systemic and pulmonary venous return. The cardiac chamber sizes are normal. The left ventricle has normal systolic function as assess qualitatively. There is moderate posterior mitral annular calcification as well as calcification noted within the mid posterior medial papillary muscles. The coronary arteries have normal origins and courses with dominant right coronary artery. There are severe coronary calcifications identified. There is a SHELBY graft to the LAD that appears patent. Additionally there are 2 aortocoronary bypass grafts that are occluded, though this study was not optimized for coronary artery evaluation. VASCULAR WITH ADVANCED 3-D OFF-LINE POSTPROCESSING: Status post mechanical aortic valve with bileaflet tilting disc that appears well seated with symmetric leaflet excursion. The thoracic aorta is normal in course and caliber with severe calcification of the ascending aorta, moderate calcification within the transverse arch, and mild calcification within the descending thoracic aorta. There is no acute aortic pathology, such as dissection, intramural hematoma, or contained rupture. The arch vessel branching pattern is bovine (i.e., common trunk of the innominate and left common carotid artery), and the arch branch vessels are all widely patent in their proximal portions with mild proximal calcifications. The abdominal aorta is normal in course and caliber with moderate calcification of the suprarenal and severe calcification of the infrarenal abdominal aorta. There is no acute aortic pathology. Artificial Glass Eye Maker dimensions of the thoracoabdominal aorta are as follows: 3.3 cm at the sinuses of Valsalva (the sinotubular junction is preserved) 3.6 cm in the mid ascending aorta 3.2 cm at the distal ascending aorta 2.8 cm at the mid transverse arch 3.0 cm at the proximal descending thoracic aorta 2.6 cm at the diaphragmatic hiatus. 2.3 cm at the supramesenteric segment 2.0 cm at the mesenteric segment 1.8 cm at the renal segment 1.8 cm at the mid infrarenal segment 1.6 cm at the aortic bifurcation. The celiac axis, SMA, and single renal arteries bilaterally that appear patent. The LILLY is not well-visualized and may be occluded. The pelvic arteries are tortuous with severe calcification of the proximal common iliac arteries and narrowing of the ostium of the right common iliac artery (approximately 5 mm). Of note, the ostium of the left common iliac artery is approximately 8 mm. The ostium of the left external iliac artery is not well visualized due to significant calcium blooming artifact. The common femoral arteries are normal in course small in caliber with moderate predominantly distal calcification. The minimal luminal caliber throughout = 5 mm. PROXIMITY OF THE CARDIOVASCULAR STRUCTURES TO THE STERNUM: The left brachiocephalic vein lies in close proximity to the posterior aspect of the manubrium at 3 mm The right ventricle is in close proximity to the sternum 5 mm at the level of the lower 2 sternal wires The remainder of the cardiac and vascular structures including the bypass grafts lie a safe distance from the sternum. ABDOMEN: The liver, gallbladder, spleen, and pancreas appear normal aside from punctate calcifications within the liver and spleen. The adrenal glands appear normal. Both kidneys are normal in size, shape, and density. There is no abnormal mass or hydronephrosis. PELVIS: Status post hysterectomy. There is no significant retroperitoneal adenopathy. No free fluid or free air within the abdomen or pelvis. The bowel appears unremarkable on this non-GI contrast examination aside from diverticulosis. The urinary bladder appears normal. There are scattered phleboliths within the deep pelvis. BONES: Degenerative changes of the spine. IMPRESSION: 1 Status post mechanical aortic valve with bileaflet tilting disc that appears well seated with symmetric leaflet excursion. 2. Severe coronary calcifications. There is a SHELBY graft to the LAD that appears patent. Additionally, there are 2 aortocoronary bypass grafts that are occluded, though this study was not optimized for coronary artery evaluation 3. The thoracic aorta is normal in course and caliber with severe calcification of the ascending aorta. There is no acute aortic pathology. 4. The pelvic arteries are tortuous with severe calcification of the proximal common iliac arteries and narrowing of the ostium of the right common iliac artery (approximately 5 mm). The ostium of the left common iliac artery is approximately 8 mm. The ostium of the left external iliac artery is not well visualized due to significant calcium blooming artifact. The common femoral arteries are normal in course small in caliber with moderate predominantly distal calcification. The minimal luminal caliber throughout = 5 mm. 5. Proximity of the cardiovascular structures to the sternum: As detailed in the body of report. 6. Old granulomatous disease. 7. Stable heterogeneous opacity pattern in the left apex, most likely representing post radiation changes, with component of fibrosis presumed. Treated tumor again is no longer identifiable. Tax Associate Attorney: FAHAD Transcribe Date/Time: May 11 2018 1:18P Dictated by : STACY MARQUEZ MD This examination was interpreted and the report reviewed and electronically signed by: VIRGILIO EMMANUEL MD on May 11 2018 4:12PM EST [id number] PROGRESS Observed: 05/11/2018 Status: COMPLETED Source: [facility] 1:02 PM [facility] REPOSITORY HNO ID: [id number] Author: Snow Sanz Ct Service: (none) Author Type: (none) Type: Progress Notes Filed: 05/11/2018 1:03 PM Note Text: Radiology Service Progress Note PATIENT NAME: Flavia Case DATE OF SERVICE: May 11, 2018 TIME: 1:02 PM PATIENT IDENTITY VERIFICATION COMPLETED USING TWO (2) METHODS: Patient confirmed name verbally and ID band matches.. PATIENT GENDER DATA: Female. status: : No status: NO. PATIENT RELEVANT IMPLANT DATA REVIEWED: Yes RADIOLOGY DEPARTMENT: CT; Exam(s) Completed: Cardiac PERIPHERAL IV DATA: Inpatient: see LDA documentation SIGNED BY: Snow Garcia May 11, 2018 1:02 PM PROGRESS Observed: 05/11/2018 Status: COMPLETED Source: [facility] 12:51 PM [facility] REPOSITORY HNO ID: [id number] Author: Margoth (Rn) KOKO Snider Service: Radiology Author Type: Registered Nurse Type: Progress Notes Filed: 05/11/2018 12:52 PM Note Text: Radiology Service Progress Note PATIENT NAME: Flavia Case DATE OF SERVICE: May 11, 2018 TIME: 12:51 PM PATIENT WEIGHT: 222 LBS PATIENT IDENTITY VERIFICATION COMPLETED USING TWO (2) METHODS: Patient confirmed name verbally and ID band matches.. PATIENT GENDER DATA: Female. status: : No status: NO. CONTRAST INDUCED NEPHROPATHY RISK FACTORS: Patient age > 60 years CREATININE: Creatinine Date Value Ref Range Status 05/11/2018 0.88 0.58 - 0.96 mg/dL Final 05/10/2018 0.78 0.58 - 0.96 mg/dL Final 05/09/2018 0.73 0.58 - 0.96 mg/dL Final eGFR-All Other Races Date Value Ref Range Status 05/11/2018 >60 . Final Comment: eGFR (Estimated GFR) Units of measure: mL/min/1.73 meters squared eGFR is derived from the reexpressed MDRD Study equation using the following parameters: serum creatinine, age, gender and race. The creatinine assay has been calibrated to be traceable to IDMS. An eGFR <60 mL/min/1.73m2 for >3 months is consistent with chronic kidney disease. Refer to KDOQI guidelines for clinical interpretation. In patients with unstable renal function, e.g. those with acute kidney injury, the eGFR may not accurately reflect actual GFR. eGFR- Date Value Ref Range Status 05/11/2018 >60 Final P.O.C.T. RESULTS: N/A May 11, 2018 TREATMENT: No Hydration needed. ALLERGIES: Reviewed and unchanged CONTRAST ALLERGY: NO. IV SITE: Inpatient - refer to LDA documentation IV SITE APPEARANCE: Clean,Dry and Intact SIGNED BY: Margoth Snider RN May 11, 2018 12:51 PM CONSULT PROG Observed: 05/11/2018 Status: COMPLETED Source: [facility] 10:59 AM [facility] REPOSITORY HNO ID: [id number] Author: Chikis Sharma Service: Cardiac Surgery Author Type: Nurse Practitioner Type: Consult Progress Note Filed: 05/11/2018 11:03 AM Note Text: CTS: Dr. Vargas DX: Redo AV/CABG Pt tentatively for surgery Monday. Mapping completed. PFTs are poor, pt needs a pulmonary evaluation prior to surgery. CTA chest, abd, and pelvis to be done to evaluate cardiac structures r/t sternum, for evaluation of fatty liver, and for evaluation of iliac arteries. Will get updated type and screen on Monday. LHC needs to be reviewed. Will get op note from 1996. Chikis Sharma, CAROLE.POINT OF CARE TECHNICIAN CNOV Observed: 05/11/2018 Status: COMPLETED Source: [facility] 8:45 AM [facility] REPOSITORY Office Visit ([facility]) FLAVIA CASE ([id number]) 1950 F Date Time Provider Department 05/11/18 8:45 AM [facility]1 [facility] During your visit today, we recorded the following information about you: Referring Provider: DEBBIE SPEARS CNP [[id number]] Allergies As of Date: 05/11/2018 Noted Allergy Reaction ADVAIR DISKUS (FLUTICASONE-SALMET*05/16/2011 14 - Other: See Comments Comments: CHEST PAIN ASA (SALICYLATES) 05/10/2005 16 - Unknown Comments: patient taking coumadin - on low dose ASA for valve dysfunction CEPHALEXIN 02/21/2008 Comments: Stomach pains-pt. ended up in hospital EKG PADS [Other] 05/10/2005 Comments: adhesive LISINOPRIL 07/03/2014 3 - Cough NEXIUM (ESOMEPRAZOLE MAGNESIUM) 01/26/2016 14 - Other: See Comments Comments: Ineffective OMEPRAZOLE 01/26/2016 14 - Other: See Comments Comments: Ineffective TUDORZA PRESSAIR (ACLIDINIUM BROM*01/26/2016 8 - GI Upset VENTOLIN (ALBUTEROL SULFATE) 10/24/2017 14 - Other: See Comments Comments: Severe shaking, palpitations VENTOLIN (ALBUTEROL) 01/26/2016 14 - Other: See Comments Comments: Ventolin MDI does not work, Pro Air works best Date Reviewed: 05/10/2018 Reviewed by: Padmini (Rn) KOKO Evangelista - Fully Assessed Reason for Visit: Spirometry [191] Primary Visit Diagnosis:Dyspnea and respiratory abnormalities [R06.00, R06.89] Prescriptions as of 05/11/2018 Sig: FUROSEMIDE 20 MG TABLET Take 1 tablet by mouth once d* ISOSORBIDE MONONITRATE ER 120* Take 120 mg by mouth once aminah* MAGNESIUM OXIDE 400 MG CAPSULE Take 1 capsule by mouth w FRANCHESCA* ATENOLOL 50 MG TABLET Take 1 tablet by mouth once d* WARFARIN 6 MG TABLET Take 3 mg , and 6 m* AMLODIPINE 10 MG TABLET Take 1 tablet by mouth once d* LORATADINE 10 MG TABLET Take 1 tablet by mouth once d* BUSPIRONE 5 MG TABLET Take 1 tablet by mouth three * AMIODARONE 200 MG TABLET Take 1 tablet by mouth once d* POTASSIUM CHLORIDE ER 20 MEQ * Take 1 tablet by mouth once d* MECLIZINE 12.5 MG TABLET Take 1 tablet by mouth three * NYSTATIN-TRIAMCINOLONE 100,00* Apply 1 application to affect* LINAGLIPTIN 5 MG TABLET Take 1 tablet by mouth once d* ALPRAZOLAM 0.25 MG TABLET Take 1 tablet by mouth every * RANOLAZINE ER 500 MG TABLET,E* Take 1 tablet by mouth twice * COMPOUNDED PRESCRIPTION HOME BP MONITOR, DX: HTN LABI* COMPOUNDED PRESCRIPTION Home scale for daily weight c* COMPOUNDED PRESCRIPTION Nebulizer for home use. Diagn* GUAIFENESIN ER 600 MG TABLET,* Take 2 tablets by mouth twice* FERROUS SULFATE 325 MG (65 MG* take 1 tablet by mouth twice * ASPIRIN 81 MG TABLET,DELAYED * Take 1 tablet by mouth once d* LANSOPRAZOLE 30 MG CAPSULE,DE* take 1 capsule by mouth every* LOSARTAN 100 MG TABLET take 1 tablet by mouth once d* NITROGLYCERIN 0.4 MG SUBLINGU* Dissolve 1 tablet under the t* ATORVASTATIN 20 MG TABLET take 1 tablet by mouth once d* METFORMIN ER 500 MG TABLET,EX* take 2 tablets by mouth twice* OXYBUTYNIN CHLORIDE ER 10 MG * take 1 tablet by mouth once d* MUPIROCIN 2 % TOPICAL OINTMENT Apply 1 application to affect* ALBUTEROL SULFATE HFA 90 MCG/* Inhale 2 Puffs as instructed * POLYETHYLENE GLYCOL 3350 17 G* Take 17 g by mouth once daily* GLIPIZIDE ER 10 MG TABLET, EX* Take 1 tablet by mouth once d* DICLOFENAC 1 % TOPICAL GEL Apply 2 g to affected area tw* LEG BRACE 1 Each continuous. DX: S89.92* LEG BRACE 1 Each continuous. COMPOUNDED PRESCRIPTION NEBULIZER SUPPLIES, MEDICATIO* Problem List As Of Date 05/11/2018 Noted Resolved AORTOCORONARY BYPASS STATUS [Z95.1] More... OVERWEIGHT [E66.9] 05/08/2015 ASHD (arteriosclerotic heart disease) [I25.10] INVALID FOR* More... DIABETES MELLITUS TYPE II-UNCOMPL [E11.9] INVALID FOR*02/12/2014 More... HYPERLIPIDEMIA NEC/NOS [E78.5] INVALID FOR*07/24/2015 More... Hematuria [599.7] INVALID FOR*07/24/2015 More... History of mechanical aortic valve replacement *INVALID FOR* More... Abdominal pain, unspecified site [R10.9] INVALID FOR*05/08/2015 Acute gastritis without mention of hemorrhage [*INVALID FOR*01/26/2016 Esophageal reflux [K21.9] INVALID FOR* More... Headache(784.0) [R51] INVALID FOR*01/26/2016 Bronchitis Recurrent [J40] INVALID FOR*03/21/2017 Hallux valgus (acquired) [M20.10] INVALID FOR*07/24/2015 Pain in limb [M79.609] INVALID FOR*01/26/2016 Goiter [E04.9] INVALID FOR* S/P AVR [Z95.2] INVALID FOR*01/26/2016 Multinodular thyroid [E04.2] INVALID FOR* Emphysema of lung (HCC) [J43.9] More... Hyperlipemia [E78.5] INVALID FOR* More... DM type 2 (diabetes mellitus, type 2) (HCC) [E1*INVALID FOR*05/08/2015 Hematuria [R31.9] INVALID FOR*10/23/2015 Smoking [F17.200] INVALID FOR*10/23/2015 Chronic anticoagulation [Z79.01] INVALID FOR* OAB (overactive bladder) [N32.81] INVALID FOR* More... Frequency of urination [R35.0] INVALID FOR*01/26/2016 Hypertension goal BP (blood pressure) < 140/90 *INVALID FOR* More... Diabetes mellitus type 2, uncontrolled, without*INVALID FOR*03/21/2017 More... Nicole rash of groin [B37.89] INVALID FOR* More... Stress at home [F43.9] INVALID FOR* Insomnia [G47.00] INVALID FOR* Financial difficulties [Z59.8] INVALID FOR* Obesity, Class III, BMI >= 40 (morbid obesity) *INVALID FOR* More... Hemoptysis [R04.2] INVALID FOR* More... 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 Eczema [L30.9] Diabetes mellitus (HCC) [E11.9] More... COPD (chronic obstructive pulmonary disease) (H* More... Diastolic CHF (HCC) [I50.30] Angina at rest (HCC) [I20.8] INVALID FOR*05/09/2018 Coronary artery disease involving [place] man*INVALID FOR* More... PAF (paroxysmal atrial fibrillation) (HCC) [I48*INVALID FOR* More... Acute on chronic diastolic heart failure (HCC) *INVALID FOR* More... Nonrheumatic aortic valve stenosis [I35.0] INVALID FOR* More... Encounter Status:Closed by JERRELL EVANS on 05/11/18 JULIENNE Observed: 05/11/2018 Status: COMPLETED Source: MARILEE 8:30 AM [facility] REPOSITORY Office Visit (PULACA) FLAVIA CASE ([id number]) 1950 F Date Time Provider Department 05/11/18 8:30 AM [facility] J-1 PULACA During your visit today, we recorded the following information about you: Referring Provider: DEBBIE SPEARS POINT OF CARE TECHNICIAN [[id number]] Allergies As of Date: 05/11/2018 Noted Allergy Reaction ADVAIR DISKUS (FLUTICASONE-SALMET*05/16/2011 14 - Other: See Comments Comments: CHEST PAIN ASA (SALICYLATES) 05/10/2005 16 - Unknown Comments: patient taking coumadin - on low dose ASA for valve dysfunction CEPHALEXIN 02/21/2008 Comments: Stomach pains-pt. ended up in hospital EKG PADS [Other] 05/10/2005 Comments: adhesive LISINOPRIL 07/03/2014 3 - Cough NEXIUM (ESOMEPRAZOLE MAGNESIUM) 01/26/2016 14 - Other: See Comments Comments: Ineffective OMEPRAZOLE 01/26/2016 14 - Other: See Comments Comments: Ineffective TUDORZA PRESSAIR (ACLIDINIUM BROM*01/26/2016 8 - GI Upset VENTOLIN (ALBUTEROL SULFATE) 10/24/2017 14 - Other: See Comments Comments: Severe shaking, palpitations VENTOLIN (ALBUTEROL) 01/26/2016 14 - Other: See Comments Comments: Ventolin MDI does not work, Pro Air works best Date Reviewed: 05/10/2018 Reviewed by: Padmini (Rn) KOKO Evangelista - Fully Assessed Reason for Visit: Spirometry [191] Primary Visit Diagnosis:Dyspnea and respiratory abnormalities [R06.00, R06.89] Prescriptions as of 05/11/2018 Sig: FUROSEMIDE 20 MG TABLET Take 1 tablet by mouth once d* ISOSORBIDE MONONITRATE ER 120* Take 120 mg by mouth once aminah* MAGNESIUM OXIDE 400 MG CAPSULE Take 1 capsule by mouth w FRANCHESCA* ATENOLOL 50 MG TABLET Take 1 tablet by mouth once d* WARFARIN 6 MG TABLET Take 3 mg Tues, Thurs and 6 m* AMLODIPINE 10 MG TABLET Take 1 tablet by mouth once d* LORATADINE 10 MG TABLET Take 1 tablet by mouth once d* BUSPIRONE 5 MG TABLET Take 1 tablet by mouth three * AMIODARONE 200 MG TABLET Take 1 tablet by mouth once d* POTASSIUM CHLORIDE ER 20 MEQ * Take 1 tablet by mouth once d* MECLIZINE 12.5 MG TABLET Take 1 tablet by mouth three * NYSTATIN-TRIAMCINOLONE 100,00* Apply 1 application to affect* LINAGLIPTIN 5 MG TABLET Take 1 tablet by mouth once d* ALPRAZOLAM 0.25 MG TABLET Take 1 tablet by mouth every * RANOLAZINE ER 500 MG TABLET,E* Take 1 tablet by mouth twice * COMPOUNDED PRESCRIPTION HOME BP MONITOR, DX: HTN LABI* COMPOUNDED PRESCRIPTION Home scale for daily weight c* COMPOUNDED PRESCRIPTION Nebulizer for home use. Diagn* GUAIFENESIN ER 600 MG TABLET,* Take 2 tablets by mouth twice* FERROUS SULFATE 325 MG (65 MG* take 1 tablet by mouth twice * ASPIRIN 81 MG TABLET,DELAYED * Take 1 tablet by mouth once d* LANSOPRAZOLE 30 MG CAPSULE,DE* take 1 capsule by mouth every* LOSARTAN 100 MG TABLET take 1 tablet by mouth once d* NITROGLYCERIN 0.4 MG SUBLINGU* Dissolve 1 tablet under the t* ATORVASTATIN 20 MG TABLET take 1 tablet by mouth once d* METFORMIN ER 500 MG TABLET,EX* take 2 tablets by mouth twice* OXYBUTYNIN CHLORIDE ER 10 MG * take 1 tablet by mouth once d* MUPIROCIN 2 % TOPICAL OINTMENT Apply 1 application to affect* ALBUTEROL SULFATE HFA 90 MCG/* Inhale 2 Puffs as instructed * POLYETHYLENE GLYCOL 3350 17 G* Take 17 g by mouth once daily* GLIPIZIDE ER 10 MG TABLET, EX* Take 1 tablet by mouth once d* DICLOFENAC 1 % TOPICAL GEL Apply 2 g to affected area tw* LEG BRACE 1 Each continuous. DX: S89.92* LEG BRACE 1 Each continuous. COMPOUNDED PRESCRIPTION NEBULIZER SUPPLIES, MEDICATIO* Problem List As Of Date 05/11/2018 Noted Resolved AORTOCORONARY BYPASS STATUS [Z95.1] More... OVERWEIGHT [E66.9] 05/08/2015 ASHD (arteriosclerotic heart disease) [I25.10] INVALID FOR* More... DIABETES MELLITUS TYPE II-UNCOMPL [E11.9] INVALID FOR*02/12/2014 More... HYPERLIPIDEMIA NEC/NOS [E78.5] INVALID FOR*07/24/2015 More... Hematuria [599.7] INVALID FOR*07/24/2015 More... History of mechanical aortic valve replacement *INVALID FOR* More... Abdominal pain, unspecified site [R10.9] INVALID FOR*05/08/2015 Acute gastritis without mention of hemorrhage [*INVALID FOR*01/26/2016 Esophageal reflux [K21.9] INVALID FOR* More... Headache(784.0) [R51] INVALID FOR*01/26/2016 Bronchitis Recurrent [J40] INVALID FOR*03/21/2017 Hallux valgus (acquired) [M20.10] INVALID FOR*07/24/2015 Pain in limb [M79.609] INVALID FOR*01/26/2016 Goiter [E04.9] INVALID FOR* S/P AVR [Z95.2] INVALID FOR*01/26/2016 Multinodular thyroid [E04.2] INVALID FOR* Emphysema of lung (HCC) [J43.9] More... Hyperlipemia [E78.5] INVALID FOR* More... DM type 2 (diabetes mellitus, type 2) (HCC) [E1*INVALID FOR*05/08/2015 Hematuria [R31.9] INVALID FOR*10/23/2015 Smoking [F17.200] INVALID FOR*10/23/2015 Chronic anticoagulation [Z79.01] INVALID FOR* OAB (overactive bladder) [N32.81] INVALID FOR* More... Frequency of urination [R35.0] INVALID FOR*01/26/2016 Hypertension goal BP (blood pressure) < 140/90 *INVALID FOR* More... Diabetes mellitus type 2, uncontrolled, without*INVALID FOR*03/21/2017 More... Nicole rash of groin [B37.89] INVALID FOR* More... Stress at home [F43.9] INVALID FOR* Insomnia [G47.00] INVALID FOR* Financial difficulties [Z59.8] INVALID FOR* Obesity, Class III, BMI >= 40 (morbid obesity) *INVALID FOR* More... Hemoptysis [R04.2] INVALID FOR* More... 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 Eczema [L30.9] Diabetes mellitus (HCC) [E11.9] More... COPD (chronic obstructive pulmonary disease) (H* More... Diastolic CHF (HCC) [I50.30] Angina at rest (HCC) [I20.8] INVALID FOR*05/09/2018 Coronary artery disease involving [place] man*INVALID FOR* More... PAF (paroxysmal atrial fibrillation) (HCC) [I48*INVALID FOR* More... Acute on chronic diastolic heart failure (HCC) *INVALID FOR* More... Nonrheumatic aortic valve stenosis [I35.0] INVALID FOR* More... Encounter Status:Closed by JERRELL EVANS on 05/11/18 CASE MANAGEM Observed: 05/11/2018 Status: COMPLETED Source: ARARAT 8:29 AM [facility] REPOSITORY HNO ID: [id number] Author: Bella (Koko) KOKO Bunch Service: Care Management Author Type: Registered Nurse Type: Care Mgt Progress Note Filed: 05/11/2018 8:30 AM Note Text: CARE MANAGEMENT PROGRESS NOTE SERVICE DATE: 05/11/2018 SERVICE TIME: 8:29 AM LOS: 2 days Needs Prior to Discharge: To Be Determined Patient remains on RA. CTS evaluation in process. Currently no skilled discharge needs. Will continue to follow and plan for discharge accordingly. SIGNATURE: Bella Bunch RN PATIENT NAME: Flavia Case DATE: May 11, 2018 TIME: 8:29 AM PAGER/CONTACT #: [phone] [facility] PAGER: [phone] PROTIME Collected: 05/11/2018 Status: F Source: ARARAT 1:13 AM [facility] REPOSITORY TYPE CODE TESTS RESULT OUT OF RANGE REFERENCE UNITS LAB PSEC 9.7-13.0 sec High PT Sec 16.5 LAB INR 0.9-1.3 High PT INR 1.6 Result Comment: Vitamin K Antagonist (VKA) Therapeutic Range: INR 2 to 3 (Target INR of 2.5) Note: For patients treated with VKA drugs, such as warfarin, the [place] [employer] 2012 Guideline recommends a therapeutic INR range of 2 to 3 (target INR of 2.5). This recommendation includes high-risk patients with antiphospholipid syndrome with previous arterial or venous thromboembolism, current-generation mechanical or bioprosthetic aortic heart valve replacement. Note: Patients with mechanical aortic valve replacement and additional risk factors for thromboembolic events (atrial fibrillation, previous thromboembolism, LV dysfunction, hypercoagulable conditions) or an older generation mechanical AVR (i.e., ball in-Cage) or any mechanical MVR should have a INR therapeutic range of 2.5 to 3.5 (target INR of 3). Joe GH, et al. Chest 2012, 141:7S-47S Catie RA et al. [facility] 2017, 70: 252-289 Performed By: #### PT, PTTAC, CBC, CMP, MG1 #### [facility] [address], [place] [address] PTT,ANTICOAG THERAPY Collected: 05/11/2018 Status: F Source: ARARAT 1:13 [facility] REPOSITORY TYPE CODE TESTS RESULT OUT OF RANGE REFERENCE UNITS LAB APTT 23.0-32.4 sec High APTT 66.9 Result Comment: Unfractionated Heparin Therapeutic Ranges: Standard Heparin Nomogram: 53 to 78 seconds (anti-Xa level of 0.3 to 0.7 U/ml) Low Dose/ACS Nomogram: 49 to 67 seconds (anti-Xa level of 0.2 to 0.5 U/ml) Stroke Treatment Nomogram: 49 to 67 seconds (anti-Xa level of 0.2 to 0.5 U/ml) Note: The APTT therapeutic range has been determined for the current lot of laboratory APTT reagent in use throughout the [employer] [facility]. Performed By: #### PT, PTTAC, CBC, CMP, MG1 #### [facility] [address] [place], [place] [address] CBC Collected: 05/11/2018 Status: F Source: ARARAT 1:13 AM [facility] REPOSITORY TYPE CODE TESTS RESULT OUT OF REFERENCE UNITS RANGE LAB WBC 3.70-11.00 k/uL WBC 5.82 LAB RBC 3.90-5.20 m/uL RBC 4.17 LAB HGB 11.5-15.5 g/dL Low Hemoglobin 11.3 LAB HCT 36.0-46.0 % Low Hematocrit 34.9 LAB MCV 80.0-100.0 fL MCV 83.7 LAB MCH 26.0-34.0 pG MCH 27.1 LAB MCHC 30.5-36.0 g/dL MCHC 32.4 LAB RDWCV 11.5-15.0 % RDW-CV High 16.4 LAB PLTCT 150-400 k/uL Platelet Count 160 LAB MPV 9.0-12.7 fL MPV 11.7 LAB ABSNUC <0.01 k/uL Absolute nRBC <0.01 Performed By: #### PT, PTTAC, CBC, CMP, MG1 #### [facility] [address] [place], [place] [address] COMP METABOLIC PANEL Collected: 05/11/2018 Status: F Source: ARARAT 1:13 AM [facility] REPOSITORY TYPE CODE TESTS RESULT OUT OF REFERENCE UNITS RANGE LAB TP 6.3-8.0 g/dL Protein, Total 6.8 LAB ALB 3.9-4.9 g/dL Albumin 4.1 LAB CA 8.5-10.2 mg/dL Calcium, Total 9.4 LAB TBIL 0.2-1.3 mg/dL Bilirubin, Total 0.3 LAB ALKP 34-123 U/L Alkaline Phosphatase 69 LAB AST 13-35 U/L AST 27 LAB GLU 74-99 mg/dL Glucose High 167 Result Comment: The [place] Diabetes Association (ADA) provides guidance for cutoff values for fasting glucose and random glucose. The ADA defines fasting as no caloric intake for at least 8 hours. Fas ting plasma glucose results between 100 to 125 mg/dL indicate increased risk for diabetes (prediabetes). Fasting plasma glucose results greater than or equal to 126 mg/dL meet the criteria for diagnosis of diabetes. In the absence of unequivocal hyperglycemia, results should be confirmed by repeat testing. In a patient with classic symptoms of hyperglycemia or hyperglycemic crisis, random plasma glucose results greater than or equal to 200 mg/dL meet the criteria for diagnosis of diabetes. Reference: Standards of Medical Care in Diabetes 2016, [place] Diabetes Association. Diabetes Care. 2016.39(Suppl 1). LAB BUN 7-21 mg/dL BUN 15 LAB CRET 0.58-0.96 mg/dL Creatinine 0.88 LAB NA 136-144 mmol/L Sodium 141 LAB K 3.7-5.1 mmol/L Potassium 3.9 LAB CL 97-105 mmol/L Chloride 98 LAB CO2 22-30 mmol/L CO2 28 LAB AGAP 9-18 mmol/L Anion Gap 15 LAB ALT 7-38 U/L ALT 28 LAB GFRAA eGFR- Amer. >60 LAB GFRNAA . eGFR-All Other Races >60 Result Comment: eGFR (Estimated GFR) Units of measure: mL/min/1.73 meters squared eGFR is derived from the reexpressed MDRD Study equation using the following parameters: serum creatinine, age, gender and race. The creatinine assay has been calibrated to be traceable to IDMS. An eGFR <60 mL/min/1.73m2 for >3 months is consistent with chronic kidney disease. Refer to KDOQI guidelines for clinical interpretation. In patients with unstable renal function, e.g. those with acute kidney injury, the eGFR may not accurately reflect actual GFR. Performed By: #### PT, PTTAC, CBC, CMP, MG1 #### [facility] [address] [place] [address] MAGNESIUM Collected: 05/11/2018 Status: F Source: ARARAT 1:13 AM [facility] REPOSITORY TYPE CODE TESTS RESULT OUT OF REFERENCE UNITS RANGE LAB MG 1.7-2.3 mg/dL High Magnesium 2.4 Performed By: #### PT, PTTAC, CBC, CMP, MG1 #### [facility] [address] [place], [place] [address] NURSING PROG Observed: 05/10/2018 Status: COMPLETED Source: ARARAT 7:51 PM [facility] REPOSITORY HNO ID: [id number] Author: Padmini (Rn) KOKO Evangelista Service: (none) Author Type: Registered Nurse Type: Nursing Progress Note Filed: 05/10/2018 7:52 PM Note Text: Paged documentation improvement specialist card intervention regarding pt's K+ 3.6. No prn orders noted. Pt remains under constant observation. PTT,ANTICOAG THERAPY Collected: 05/10/2018 Status: F Source: ARARAT 6:47 PM [facility] REPOSITORY TYPE CODE TESTS RESULT OUT OF RANGE REFERENCE UNITS LAB APTT 23.0-32.4 sec High APTT 62.6 Result Comment: Unfractionated Heparin Therapeutic Ranges: Standard Heparin Nomogram: 53 to 78 seconds (anti-Xa level of 0.3 to 0.7 U/ml) Low Dose/ACS Nomogram: 49 to 67 seconds (anti-Xa level of 0.2 to 0.5 U/ml) Stroke Treatment Nomogram: 49 to 67 seconds (anti-Xa level of 0.2 to 0.5 U/ml) Note: The APTT therapeutic range has been determined for the current lot of laboratory APTT reagent in use throughout the [employer] [facility]. Performed By: #### PTTAC #### [facility] [address] [place], [place] [address] CNOV Observed: 05/10/2018 Status: COMPLETED Source: ARARAT 4:15 PM [facility] REPOSITORY Office Visit (CAFLMN) FLAVIA CASE ([id number]) 1950 F Date Time Provider Department 05/10/18 4:15 PM IP TRANSESOPHAGEAL ECHO CAFLMN During your visit today, we recorded the following information about you: Melissa Madrid RN, RN 05/10/2018 12:29 PM Signed AMBULATORY PATIENT EDUCATION TOPIC: PETRA READINESS TO LEARN COGNITIVE ABILITY: Alert and oriented MOTIVATION TO LEARN: Interested FAMILY SUPPORT: None - Unavailable/disinterested INSTRUCTION PROVIDED TO: Patient PATIENT LEARNS BEST BY: Multiple Methods FACTORS AFFECTING LEARNING: None PHYSICAL LIMITATIONS AFFECTING LEARNING: None LEARNING RESPONSE DIAGNOSIS: METHOD OF INSTRUCTION: Individual instruction Written instruction - handouts PATIENT / FAMILY RESPONSE: Verbalizes understanding of: POST-PROCEDURE INSTRUCTIONS-Correct actions to take to reduce post procedure complications PRE-PROCEDURE INSTRUCTIONS-Correct action to take to follow pre-procedure instructions FOLLOW-UP PLAN: Complete - No need for follow-up SUPPLEMENTAL MATERIAL: Procedure discharge instructions REFERRAL (RECOMMENDATION): None Electronically Signed By Melissa Madrid RN In Department: CARDIOLOGY Referring Provider: SYMONE SONG) [[id number]] Allergies As of Date: 05/10/2018 Noted Allergy Reaction ADVAIR DISKUS (FLUTICASONE-SALMET*05/16/2011 14 - Other: See Comments Comments: CHEST PAIN ASA (SALICYLATES) 05/10/2005 16 - Unknown Comments: patient taking coumadin - on low dose ASA for valve dysfunction CEPHALEXIN 02/21/2008 Comments: Stomach pains-pt. ended up in hospital EKG PADS [Other] 05/10/2005 Comments: adhesive LISINOPRIL 07/03/2014 3 - Cough NEXIUM (ESOMEPRAZOLE MAGNESIUM) 01/26/2016 14 - Other: See Comments Comments: Ineffective OMEPRAZOLE 01/26/2016 14 - Other: See Comments Comments: Ineffective TUDORZA PRESSAIR (ACLIDINIUM BROM*01/26/2016 8 - GI Upset VENTOLIN (ALBUTEROL SULFATE) 10/24/2017 14 - Other: See Comments Comments: Severe shaking, palpitations VENTOLIN (ALBUTEROL) 01/26/2016 14 - Other: See Comments Comments: Ventolin MDI does not work, Pro Air works best Date Reviewed: 05/10/2018 Reviewed by: Melissa SamuelsRn) KOKO Madrid - Fully Assessed Reason for Visit: Patient Education [91] Cmt: PETRA Primary Visit Diagnosis:Nonrheumatic aortic valve stenosis [I35.0] Prescriptions as of 05/10/2018 Sig: FUROSEMIDE 20 MG TABLET Take 1 tablet by mouth once d* ISOSORBIDE MONONITRATE ER 120* Take 120 mg by mouth once aminah* MAGNESIUM OXIDE 400 MG CAPSULE Take 1 capsule by mouth w FRANCHESCA* ATENOLOL 50 MG TABLET Take 1 tablet by mouth once d* WARFARIN 6 MG TABLET Take 3 mg Tu, and 6 m* AMLODIPINE 10 MG TABLET Take 1 tablet by mouth once d* LORATADINE 10 MG TABLET Take 1 tablet by mouth once d* BUSPIRONE 5 MG TABLET Take 1 tablet by mouth three * AMIODARONE 200 MG TABLET Take 1 tablet by mouth once d* POTASSIUM CHLORIDE ER 20 MEQ * Take 1 tablet by mouth once d* MECLIZINE 12.5 MG TABLET Take 1 tablet by mouth three * NYSTATIN-TRIAMCINOLONE 100,00* Apply 1 application to affect* LINAGLIPTIN 5 MG TABLET Take 1 tablet by mouth once d* ALPRAZOLAM 0.25 MG TABLET Take 1 tablet by mouth every * RANOLAZINE ER 500 MG TABLET,E* Take 1 tablet by mouth twice * COMPOUNDED PRESCRIPTION HOME BP MONITOR, DX: HTN LABI* COMPOUNDED PRESCRIPTION Home scale for daily weight c* COMPOUNDED PRESCRIPTION Nebulizer for home use. Diagn* GUAIFENESIN ER 600 MG TABLET,* Take 2 tablets by mouth twice* FERROUS SULFATE 325 MG (65 MG* take 1 tablet by mouth twice * ASPIRIN 81 MG TABLET,DELAYED * Take 1 tablet by mouth once d* LANSOPRAZOLE 30 MG CAPSULE,DE* take 1 capsule by mouth every* LOSARTAN 100 MG TABLET take 1 tablet by mouth once d* NITROGLYCERIN 0.4 MG SUBLINGU* Dissolve 1 tablet under the t* ATORVASTATIN 20 MG TABLET take 1 tablet by mouth once d* METFORMIN ER 500 MG TABLET,EX* take 2 tablets by mouth twice* OXYBUTYNIN CHLORIDE ER 10 MG * take 1 tablet by mouth once d* MUPIROCIN 2 % TOPICAL OINTMENT Apply 1 application to affect* ALBUTEROL SULFATE HFA 90 MCG/* Inhale 2 Puffs as instructed * POLYETHYLENE GLYCOL 3350 17 G* Take 17 g by mouth once daily* GLIPIZIDE ER 10 MG TABLET, EX* Take 1 tablet by mouth once d* DICLOFENAC 1 % TOPICAL GEL Apply 2 g to affected area tw* LEG BRACE 1 Each continuous. DX: S89.92* LEG BRACE 1 Each continuous. COMPOUNDED PRESCRIPTION NEBULIZER SUPPLIES, MEDICATIO* Problem List As Of Date 05/10/2018 Noted Resolved AORTOCORONARY BYPASS STATUS [Z95.1] More... OVERWEIGHT [E66.9] 05/08/2015 ASHD (arteriosclerotic heart disease) [I25.10] INVALID FOR* More... DIABETES MELLITUS TYPE II-UNCOMPL [E11.9] INVALID FOR*02/12/2014 More... HYPERLIPIDEMIA NEC/NOS [E78.5] INVALID FOR*07/24/2015 More... Hematuria [599.7] INVALID FOR*07/24/2015 More... History of mechanical aortic valve replacement *INVALID FOR* More... Abdominal pain, unspecified site [R10.9] INVALID FOR*05/08/2015 Acute gastritis without mention of hemorrhage [*INVALID FOR*01/26/2016 Esophageal reflux [K21.9] INVALID FOR* More... Headache(784.0) [R51] INVALID FOR*01/26/2016 Bronchitis Recurrent [J40] INVALID FOR*03/21/2017 Hallux valgus (acquired) [M20.10] INVALID FOR*07/24/2015 Pain in limb [M79.609] INVALID FOR*01/26/2016 Goiter [E04.9] INVALID FOR* S/P AVR [Z95.2] INVALID FOR*01/26/2016 Multinodular thyroid [E04.2] INVALID FOR* Emphysema of lung (HCC) [J43.9] More... Hyperlipemia [E78.5] INVALID FOR* More... DM type 2 (diabetes mellitus, type 2) ([facility]) [E1*INVALID FOR*05/08/2015 Hematuria [R31.9] INVALID FOR*10/23/2015 Smoking [F17.200] INVALID FOR*10/23/2015 Chronic anticoagulation [Z79.01] INVALID FOR* OAB (overactive bladder) [N32.81] INVALID FOR* More... Frequency of urination [R35.0] INVALID FOR*01/26/2016 Hypertension goal BP (blood pressure) < 140/90 *INVALID FOR* More... Diabetes mellitus type 2, uncontrolled, without*INVALID FOR*03/21/2017 More... Nicole rash of groin [B37.89] INVALID FOR* More... Stress at home [F43.9] INVALID FOR* Insomnia [G47.00] INVALID FOR* Financial difficulties [Z59.8] INVALID FOR* Obesity, Class III, BMI >= 40 (morbid obesity) *INVALID FOR* More... Hemoptysis [R04.2] INVALID FOR* More... 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 Eczema [L30.9] Diabetes mellitus (HCC) [E11.9] More... COPD (chronic obstructive pulmonary disease) (H* More... Diastolic CHF ([facility]) [I50.30] Angina at rest ([facility]) [I20.8] INVALID FOR*05/09/2018 Coronary artery disease involving skull [place] man*INVALID FOR* More... PAF (paroxysmal atrial fibrillation) ([facility]) [I48*INVALID FOR* More... Acute on chronic diastolic heart failure (HCC) *INVALID FOR* More... Nonrheumatic aortic valve stenosis [I35.0] INVALID FOR* More... Encounter Status:Closed by MELISSA MADRID on 05/10/18 12 LEAD ELECTROCARDIOGRAM Observed: 05/10/2018 Status: F Source: HELENA 3:55 PM [facility] REPOSITORY [facility] Cardiovascular Services [address] [place] [address] 12 Lead EKG 05/08/18 1447 MR#: [id number] Acct: [id number] Name: FLAVIA CASE Rep #: [id number] : 1950 68 From: Nieves Lei MD Attending Dr: Status: DEP ER Ordering Dr: Matti Ledesma DO Date: 05/08/18 Location: ED Sex: F C Admitted: Test Reason : CHEST PAIN Blood Pressure : / mmHG Vent. Rate : 048 BPM Atrial Rate : 048 BPM P-R Int : 174 ms QRS Dur : 110 ms QT Int : 496 ms P-R-T Axes : 029 074 062 degrees QTc Int : 443 ms Sinus bradycardia Otherwise normal ECG Confirmed by JENNIFFER ONEAL, NIEVES ([id number]), graphic editor SOUMYA BARTH ([id number]) on 05/10/2018 3:55:17 PM Referred By: DAVID Confirmed By:NIEVES LEI MD 05/10/18 155 Date Nieves Lei MD CC: Collin Gamez MD; Matti Ledesma DO Signed 12 LEAD ELECTROCARDIOGRAM Observed: 05/10/2018 Status: F Source: HELENA 3:49 PM [facility] REPOSITORY [facility] Cardiovascular Services [address] [place] [address] 12 Lead EKG 05/08/18 1653 MR#: [id number] Acct: [id number] Name: CASEFLAVIA Rep #: [id number] : 1950 68 From: Nieves Lei MD Attending Dr: Status: DEP ER Ordering Dr: Matti Ledesma DO Date: 05/08/18 Location: ED Sex: F C Admitted: Test Reason : REPEAT EKG Blood Pressure : / mmHG Vent. Rate : 044 BPM Atrial Rate : 044 BPM P-R Int : 172 ms QRS Dur : 104 ms QT Int : 488 ms P-R-T Axes : 018 071 081 degrees QTc Int : 417 ms Marked sinus bradycardia Nonspecific ST abnormality Abnormal ECG Confirmed by JENNIFFER ONEAL, NIEVES ([id number]), graphic editor SOUMYA BARTH ([id number]) on 05/10/2018 3:49:17 PM Referred By: BALTAZAR Confirmed By:NIEVES LEI MD 05/10/18 1549 Date Nieves Lei MD CC: Collin Gamez MD; Matti Ledesma DO Signed CASE MANAGEM Observed: 05/10/2018 Status: COMPLETED Source: ARARAT 3:14 PM [facility] REPOSITORY HNO ID: [id number] Author: Tracy Neil (Sw) Service: Care Management Author Type: Outside Rigger Type: Care Mgt Progress Note Filed: 05/10/2018 3:15 PM Note Text: CARE MANAGEMENT PROGRESS NOTE SERVICE DATE: 05/10/2018 SERVICE TIME: 3:14 PM LOS: 1 day JUAN F met with pt to complete advance directives. Pt completed HCPOA and listed sonLaci, at agent. Pt also completed living will. JUAN F submitted documents to be added to pt's medical record. SW to follow as needed. SIGNATURE: YOSEPH Bianchi PATIENT NAME: Flavia Hook Manpreet DATE: May 10, 2018 TIME: 3:14 PM PAGER/CONTACT #: [phone] CONSULT Observed: 05/10/2018 Status: COMPLETED Source: ARARAT 2:38 PM [facility] REPOSITORY HNO ID: [id number] Author: Marj Vargas Service: Cardiac Surgery Author Type: Physician Type: Consults Filed: 05/11/2018 5:41 PM Note Text: CONSULT HISTORY and PHYSICAL CARDIOTHORACIC SURGERY Consulting Service: Cardiothoracic Surgery [facility] Manager Respiratory, Dr. Song Opinion/advice regarding: Pre-Op Open Heart Surgery Cardiothoracic Physician: Marj Vargas M.D. NAME: Flavia Case HEIGHT: 160 cm WEIGHT: 100.8 kg Intended Procedure: REDO AVR CABG REDO: Yes, 1996: Dr. Heredia CABG STS SCORE: 11% HPI: This is a 68 year old female who presents in consultation for an opinion regarding treatment options for Coroanry Artery disease and Mechanical prosthetic-valve aortic valve (#21) with P/M gradients 71/32 mmHg on PETRA and recent TTE: 97/48 mmHg in the setting of chest pain and presyncopal episodes and prior radiation exposure to the chest: Status post radiation therapy on 11/18/2016, 3400 cGy to the left upper lobe; who recently has required multiple recent hospital (4) total since Mar for heart failure exacerbations and intermittent bursts of atrial fibrillation. She was a hospital transfer from [place] for continuation of medical care and for consideration of a REDO OHS. Currently, she is in stable condition. Comorbidities include COPD, Diabetes~hgba1c: 6.9, Diastolic Heart Failure, Diabetes, Fatty liver/Hepatosplenomegaly, Diaphragmatic hernia without mention of obstruction or gangrene, HTN, HPL, Obesity~39.36, Squamous cell carcinoma: ABOVE RIGHT KNEE, SHAVE BIOPSY - SQUAMOUS CELL CARCINOMA IN SITU,WELL-DIFFERENTIATED, Lung cancer: LEFT UPPER LOBE LUNG: Positive for malignant cells. Non-small cell carcinoma, consistent with squamous cell carcinoma. The malignant cells showed strong positive staining with P40 and negative staining with TTF1, consistent with squamous cell carcinoma. Rosales from Dr. Young at the time of Radiation Therapy; former 72 py smoker (quit 1995) with a pmh significant for COPD, AVR (Coumadin), CAD (s/p 3 vessel CABG in 1996), skin cancer excised from knee, pulmonary HTN, and DM.?On 06/08/2016 CT imaging of her chest for evaluation of her thoracic aorta incidentally identified a 1.3 cm PAWAN nodule, a few 3 mm nodules bilaterally, and innumerable tiny centrilobular nodules throughout both lungs, likely related to small airway disease. Remote granulomatous disease was also seen in the chest and abdomen. PET imaging performed on 09/14/2016 described hypermetabolic uptake associated with the 1.3 x 1.2 cm PAWAN nodule. The additional scattered nodules were below the resolution for PET. CT guided biopsy of the PAWAN lung lesion confirmed non- small cell carcinoma, consistent with squamous cell carcinoma. Pulmonary function testing performed on 11/09/16 reported a FEV1 of?1.16L / 51% and DLCO of 83 % of predicted value. Thoracic Surgery determined patient to be a risk candidate for surgery due to her co morbid health issues. Received Radiation Therapy: 11/18/2016. PAST MEDICAL HISTORY Diagnosis Date - Acute gastritis without mention of hemorrhage - Acute peptic ulcer - Anxiety - ASHD (arteriosclerotic heart disease) Dr. Corado - Benign neoplasm of colon - Carpal tunnel syndrome - COPD (chronic obstructive pulmonary disease) (HCC) - Corns and callosities 02/11/2010 - Dermatophytosis of nail 02/11/2010 - Diabetes mellitus (HCC) - Diaphragmatic hernia without mention of obstruction or gangrene - Diastolic CHF (HCC) - Eczema - External hemorrhoids without mention of complication - Fatty liver - Hepatosplenomegaly - Hirsutism 10/21/2010 - Hyperlipidemia - Hypertension - Internal hemorrhoids without mention of complication - Lung cancer (HCC) 09/[address] Lizarraga. Stage I squamous cell s/p radiation - Multinodular thyroid benign - Obesity, unspecified - Overactive bladder Dr. Recio - Postsurgical aortocoronary bypass status triple bypass, aortic valve replacement - Pulmonary hypertension (HCC) - S/P AVR - Seasonal allergies - Squamous cell carcinoma neck, back, leg, left lung - Toe deformity 02/11/2010 PAST SURGICAL HISTORY Procedure Laterality Date - CABG, ARTERY-VEIN, THREE 1996 CABG, three grafts, replace heart valve - DELIVERY ONLY x3 - COLONOSCOP W/ OR W/O [facility] SPEC 01/02/2001, 09/21/2005 Colonoscopy - COLONOSCOP W/ OR W/O [facility] SPEC 04/26/06 - EGD W/O OR W/BRUSH/WASH 04/26/06 - EGD W/O OR W/BRUSH/WASH 01/12/1984 EGD with biopsy of antral ulcer - LAPAROSCOPIC CHOLEYCYSTECTOMY 09-06-12 - PAST SURGICAL HISTORY OF skin cancer from knee / benign spot from back - PAST SURGICAL HISTORY OF cataract removal bilateral - TOTAL ABDOM HYSTERECTOMY 1978 for endometriosis, ovaries spared FAMILY HISTORY Problem Relation Age of Onset - Heart Father - Heart Mother - Thyroid Mother Goiter - Diabetes Maternal Grandfather - other (stomach cancer) Sister Adenocarcinoma - Heart Daughter - Colon Cancer Sister 52 FAMILY HISTORY OF CAD: Yes SOCIAL HISTORY: Social History Substance Use Topics - Smoking status: Former Smoker Packs/day: 2.00 Years: 36.00 Types: Cigarettes Start date: 1962 Quit date: 06/28/1995 - Smokeless tobacco: Never Used Comment: Both parents smoked in childhood home. Ex-spouse of 38 years also a smoker. - Alcohol use No MEDICATIONS: Prior to Admission Medications: furosemide (LASIX) 20 mg tablet Take 1 tablet by mouth once daily. magnesium oxide 400 mg cap Take 1 capsule by mouth w MEALS. atenolol (TENORMIN) 50 mg tablet Take 1 tablet by mouth once daily. warfarin (COUMADIN) 6 mg tablet Take 3 mg Tues, Thurs and 6 mg all other days. amLODIPine (NORVASC) 10 mg tablet Take 1 tablet by mouth once daily. loratadine (CLARITIN) 10 mg tablet Take 1 tablet by mouth once daily. busPIRone (BUSPAR) 5 mg tablet Take 1 tablet by mouth three times daily. amiodarone (PACERONE) 200 mg tablet Take 1 tablet by mouth once daily. potassium chloride ER (K-DUR, KLOR-CON) 20 mEq tablet Take 1 tablet by mouth once daily. meclizine (ANTIVERT) 12.5 mg tab Take 1 tablet by mouth three times daily as needed (dizziness). nystatin-triamcinolone (MYCOLOG II) cream Apply 1 application to affected area twice daily as needed. Apply to affected area for 2 weeks linagliptin (TRADJENTA) 5 mg tab Take 1 tablet by mouth once daily. ALPRAZolam (XANAX) 0.25 mg tablet Take 1 tablet by mouth every 6 hours as needed for Anxiety for up to 20 doses. ranolazine ER (RANEXA) 500 mg 12 hr tablet Take 1 tablet by mouth twice daily. COMPOUNDED PRESCRIPTION HOME BP MONITOR, DX: HTN LABILE Dx: Hypertension goal BP (blood pressure) < 140/90 ICD-10 I10 COMPOUNDED PRESCRIPTION Home scale for daily weight check. Dx: CHF-diastolic >Nebulizer For Home Nebulizer for home use. Diagnosis: COPD ICD-10 J42 guaiFENesin (MUCINEX) 600 mg 12 hr tablet Take 2 tablets by mouth twice daily. ferrous sulfate 325 mg (65 mg iron) tablet take 1 tablet by mouth twice a day with meals aspirin, enteric coated (ASPIRIN, ENTERIC COATED) 81 mg EC tablet Take 1 tablet by mouth once daily. lansoprazole (PREVACID) 30 mg capsule take 1 capsule by mouth every morning AT 6 AM and every evening AT 4 PM before meals losartan (COZAAR) 100 mg tablet take 1 tablet by mouth once daily nitroglycerin sublingual (NITROSTAT) 0.4 mg SL tablet Dissolve 1 tablet under the tongue as needed. DISSOLVE ON TONGUE FOR CHEST PAIN. IF NO PAIN RELIEF, CALL 911 atorvastatin (LIPITOR) 20 mg tablet take 1 tablet by mouth once daily metFORMIN ER (GLUCOPHAGE XR) 500 mg 24 hr tablet take 2 tablets by mouth twice a day oxybutynin ER (DITROPAN XL) 10 mg 24 hr tablet take 1 tablet by mouth once daily mupirocin (BACTROBAN) 2 % ointment Apply 1 application to affected area three times daily. Location: Inside nose albuterol HFA (PROAIR HFA) 90 mcg/actuation inhaler Inhale 2 Puffs as instructed every 4 hours as needed. polyethylene glycol 3350 (MIRALAX, GLYCOLAX) 17 gram/dose powder Take 17 g by mouth once daily. dissolve in water. glipiZIDE XL (GLUCOTROL XL) 10 mg 24 hr tablet Take 1 tablet by mouth once daily. diclofenac sodium (VOLTAREN) 1 % topical gel Apply 2 g to affected area twice daily as needed. Both heels Leg Brace (KNEE SUPPORT BRACE) misc 1 Each continuous. DX: S89.92XA Leg Brace (KNEE SUPPORT BRACE) misc 1 Each continuous. COMPOUNDED PRESCRIPTION NEBULIZER SUPPLIES, MEDICATION CUP, TUBING FOR USE WITH NEBULIZER MACHINE DX J40.0 isosorbide mononitrate ER (IMDUR) 120 mg 24 hr tablet Take 120 mg by mouth once daily. Current hospital medications: heparin iv infusion (STANDARD NOMOGRAM) 25,000 units in NaCl 0.45% 250 mL PREMIX 0-3,000 Units/hr INTRAVENOUS CONTINUOUS heparin RATE CHANGE bolus 1,000-10,000 Units for subtherapeutic aptt results 1,000-10,000 Units INTRAVENOUS PRN heparin nomogram - NO INITIAL BOLUS OTHER ONCE (heparin bolus) furosemide 20 mg tab(s) (LASIX) 20 mg ORAL DAILY busPIRone 5 mg tab(s) (BUSPAR) 5 mg ORAL TID ranolazine ER 500 mg tab(s) (RANEXA) 500 mg ORAL BID amiodarone 200 mg tab(s) (PACERONE) 200 mg ORAL DAILY loratadine 10 mg tab(s) (CLARITIN) 10 mg ORAL DAILY losartan 100 mg tab(s) (COZAAR) 100 mg ORAL DAILY carvedilol 3.125 mg tab(s) (COREG) 3.125 mg ORAL BID w MEALS amLODIPine 10 mg tab(s) (NORVASC) 10 mg ORAL DAILY aspirin, enteric coated 81 mg tab(s) 81 mg ORAL DAILY dextrose 40 % 15 g 15 g ORAL PRN glucagon 1 mg injection (GLUCAGEN) 1 mg INTRAMUSCULAR PRN dextrose 50 % 12.5 g injection 12.5 g INTRAVENOUS PRN acetaminophen 650 mg tab(s) (TYLENOL) 650 mg ORAL q 4 H PRN docusate sodium 100 mg cap(s) (COLACE) 100 mg ORAL BID PRN insulin lispro injection (rapid acting) (HumaLOG) SUBCUTANEOUS w MEALS insulin lispro injection (rapid acting) (HumaLOG) SUBCUTANEOUS AT BEDTIME polyethylene glycol 3350 17 g packet (MIRALAX, GLYCOLAX) 17 g ORAL DAILY PRN atorvastatin 80 mg tab(s) (LIPITOR) 80 mg ORAL DAILY guaiFENesin 1,200 mg ER tab(s) (MUCINEX) 1,200 mg ORAL q 12 H sodium chloride 0.65 % 2 [place] (AYR, OCEAN) 2 [place] EACH NOSTRIL PRN amoxicillin-clavulanic acid 875 mg tab(s) (AUGMENTIN) 875 mg ORAL q 12 H lactobacillus rhamnosus 10 billion cell (CULTURELLE) capsule 1 capsule ORAL DAILY ALLERGIES Allergen Reactions - Advair Diskus [Flut* Other: See Comments CHEST PAIN - Asa [Salicylates] Unknown patient taking coumadin - on low dose ASA for valve dysfunction - Cephalexin Stomach pains-pt. ended up in hospital - Ekg Pads [Other] adhesive - Lisinopril Cough - Nexium [Esomeprazol* Other: See Comments Ineffective - Omeprazole Other: See Comments Ineffective - Tudorza Pressair [A* GI Upset - Ventolin [Albuterol* Other: See Comments Severe shaking, palpitations - Ventolin [Albuterol] Other: See Comments Ventolin MDI does not work, Pro Air works best COMPLETE REVIEW OF SYSTEMS: Constitutional: Positive for fatigue and significant weight loss x 20 since Mar HEENT: Negative for frequent or significant headaches, No changes in hearing or vision, no nose bleeds or other nasal problems. Edentulous Resp: Positive for shortness of breath limiting daily activity Cardiovascular: Positive for chest pain, paroxysmal nocturnal dyspnea and orthopnea GI: Negative for abdominal discomfort, blood in stools or black stools or change in bowel habits : Positive for dysuria~cleared with UTI treatment Endo: Negative for cold or heat intolerance, polyuria, polydipsia and goiter Heme/Lymph: Negative for prolonged bleeding, bruising easily or swollen nodes Neurologic: No history or headaches, syncope, paralysis, seizures or tremors Integumentary: Negative for lesions, rash, and itching. Additional systems reviewed: Pain:denies, Musculoskeletal: normal strength and Psychiatric: Negative for sleep disturbance, mood disorder and recent psychosocial stressors PHYSICAL EXAM: (8) BP 133/64 Pulse 71 Temp 36.5 ?C (97.7 ?F) (Oral) Resp 18 Ht 160 cm (5' 3) Wt 100.8 kg (222 lb 3.2 oz) SpO2 96% BMI 39.36 kg/m? Constitutional: No acute distress, Obese HEENT: PERRLA, EOM's intact, Dentures and Neck No cervical, supraclavicular, or axillary adenopathy Resp: Decreased breath sounds Cardiovascular: IRRegular rate AND rhythm, No heaves, Murmur and S1, S2 normal GI: Soft, Non-tender and Bowel sounds present Integumentary: Warm and Dry Musculoskeletal: No deformities Neurological/Psychiatric: Oriented to time, place AND person Additional systems reviewed: No additional systems reviewed Labs: Recent Labs 05/09/18 1833 05/09/18220 CK 64 62 MB 1.9 1.7 CKMBP CK MB % not reported with CK <100 U/L. CK MB % not reported with CK <100 U/L. TROPT <0.010 <0.010 Recent Labs 05/10/18 0623 05/09/18220 WBC 4.98 7.17 HB 11.3* 11.5 HCT 35.6* 35.2* PLT 168 207 Recent Labs 05/10/18 0623 05/09/18220 INR 1.9* 2.5* APTT 38.4* 42.7* Recent Labs 05/10/18 0623 05/09/18 0221 NA 141 138 K 3.6* 4.2 CHLOR 100 102 CO2 27 20* BUN 14 16 CREAT 0.78 0.73 GLUC 110* 90 ALKPHOS 71 79 ALT 26 29 AST 25 25 ALB 4.0 4.5 Cholesterol, Total 121 05/10/2018 HDL Cholesterol 23 05/10/2018 LDL Chol, [place] 61 05/10/2018 DATA: I have personally reviewed the following data: Cardiac Catheterization: [place] multivessel coronary artery disease, Known SVG x 3 failure, patent SHELBY. SHELBY to LAD patent SVG to LCx occluded SVG to RCA occluded Aortic valve: Mechanical bileaflet opening and closing appropriately. ? Attempt was made to PTCA the RCA but the vessel was too heavily calcified and the procedure was not successful ? PI: dom: BOTH RIGHT: 70% left: 75% PETRA: 05/10/2018:The left ventricle is normal in size. There is moderate concentric left ventricular hypertrophy. Left ventricular systolic function is normal. EF = 65 ? 5% (visual est.) - The right ventricle is normal in size. Right ventricular systolic function is normal. - The left atrial cavity is dilated. - There is a moderate amount of sub mitral valve calcification. - Mechanical prosthetic aortic valve (size #21). There is trace aortic valve regurgitation. The peak gradient is 71 mmHg and the mean gradient is 32 mmHg. Gradients on recent TTE were peak 97 mmHg and mean 48 mmHg. CXR: 05/09/2018: Lungs and pleura: Stable size of approximately 1 cm right lower lobe nodule likely representing a granuloma. ?Left apical ill-defined opacity probably from radiation changes. ?No new consolidations. ?No pneumothorax. Cardiomediastinal silhouette: ?Borderline enlarged cardiomediastinal silhouette. Other: ?Mild degenerative changes of the thoracic spine. CT scan: 01/23/2018: 1. ?Stable heterogeneous opacity pattern in the left apex, most likely representing post radiation changes, with component of fibrosis presumed. ?Treated tumor is no longer identifiable. 2. ?Other small indeterminate pulmonary nodules are redemonstrated. ?Mosaic attenuation pattern indicating small airways disease and some component of emphysema noted again. 3. ?No enlarging lymph nodes. ?Status post CABG and mechanical aortic valve replacement. ?Suspect mild anemia. ?Old granulomatous disease. ?Diffuse hepatic steatosis ?with subtle nodularity of the liver surface redemonstrated. Carotids: Pending Dental clearance: N/A edentulous EKG: May 10 2018 13:08:16 NORMAL SINUS RHYTHM INCOMPLETE LEFT BUNDLE BRANCH BLOCK ORDERLINE ECG Ventricular Rate : 68 ?BPM Atrial Rate : 68 ?BPM P-R Interval : 184 ?ms QRS Duration : 120 ?ms Q-T Interval : 456 ?ms QTC Calculation(Bezet) : 484 ?ms P [place] : 27 ?degrees R [place] : 71 ?degrees T [place] : 16 ?degrees PET scan: 05/09/2018 1. PET Perfusion Study: Abnormal. ?2. No evidence of scarred myocardium. ?3. No evidence of hibernation. ?4. There is severe (>20%) ischemia in the anterior wall. ?5. There is moderate (10-20%) ischemia in the inferior wall. ?6. Left ventricle is mildly dilated. The left ventricle systolic function is low normal. ?7. Right ventricle is mildly dilated. The right ventricle systolic function is mildly decreased. ?8. There is a drop in Ejection Fraction post stess. ?9. There is transient ischemic dilation of the LV cavity with stress. 10. This is a high risk scan. ??Gated Stress IR:3D:SC:CTAC Gated Rest IR:3D:SC:CTAC ?LVEF % 64 ? PFT: 01/24/2017: FVC ?2.04 ? ? 69 ? FEV 1 ? ? ?1.45 ? ? 64 ? FEV1%F ? ?71.11 ? ? 93 ? FEV 2 ?1.70 ? ? 74 ? FEV 3 ? ? ? 1.82 ? ? 70 ? DLCOSB ? ? ?15.85 ? ? 78 ? Impression: This is a 68 year old year-old female, who is being evaluated for surgical intervention of aortic stenosis and coronary artery disease. In consideration for surgery, the patient's acute and chronic medical issues have been evaluated as documented above and reviewed in the electronic medical record. Active Hospital Problems Diagnosis - Squamous cell carcinoma of left lung (HCC) PAWAN nodule, medically inoperable [cardiac comorbidity], peripheral, squamous cell CA, T1a[1.3cm, ?SUV 5] ?N0[PET] M0 s/p 34 Gy in 1 fx completed 11/18/16. Follows with oncology at [place]- last check up stable on 01/2018 - Coronary artery disease involving [place] coronary artery of [place] heart with unstable angina pectoris ([facility]) History -s/p CABG with mechanical AVR 03/2018 angina pain stress test. This showed no ischemia 03/2018 [facility] LM distal 50% LAD - pLAD 85% eccentric, mLAD fills via SHELBY, D1 fills via L-L collaterals LCx- pLCx 25-50% stenosis RCA - pRCA with 95%, mRCA with 50%, dRCA occluded and fills via L-R collaterals SHELBY-LAD patent SVG-LCx occluded SVG-RCA occluded unsuccessful attempt at PCI of RCA BNP 653 PET There is severe (>20%) ischemia in the anterior wall. There is moderate (10-20%) ischemia in the inferior wall 05/09/2018 responded well to 1 dose of IV lasix Plan ASA 81mg daily coumadin held heparin gtt per nomagram cont coreg 3.125mg BID (Home BB is atenolol) Cont arb cont norvasc stop Imdur (will need to hold for PET and cautious use in symptomatic ) oral lasix CTS consult for redo AVR/CABG/MAZE dentures- no dental needed PFT's ordered will need carotid and vein mapping - PAF (paroxysmal atrial fibrillation) ([facility]) History of PAF-on coumadin Assessment symptomatic when in afib with palpitations. This also leads to dyspnea. When she returns to normal rhythm it sounds like she is having pauses which do cause presyncopal symptoms Plan cont BB for rate control cont oral amio monitor tele - Acute on chronic diastolic heart failure ([facility]) see plan CAD for management. - Nonrheumatic aortic valve stenosis see plan s/p AVR. - COPD (chronic obstructive pulmonary disease) (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 The mean gradient is 48 ?mmHg. PETRA today and then CTS surgery consult for redo AVR/CABG+/_ MAZE Plan: Patient will be seen by the surgeon, for his surgical impression. We will need to obtain a Cardiac CT Scan along with CT of the ABD/pelvis for eval of the fatty liver and also for access to the iliac arteries. PFT/DLCO, carotid US, LILLY and vein mapping and obtain the op-note from 1996 and formal cath review from the cath from 03/2018. Anticipated Discharge Needs: TBD. These findings will be communicated back to the requesting provider electronically. SIGNATURE:Genia Mcknight APRN.POINT OF CARE TECHNICIAN PAGER:[phone] Date of Service: May 10, 2018 Time of Service: 6:27 PM [facility] STAFF PHYSICIAN NOTE OF PERSONAL INVOLVEMENT IN CARE I have reviewed the documentation above obtained and documented by the Nurse Practitioner and have reviewed and updated the problem list as appropriate. I have personally participated in the cabral component and physical exam and have discussed the case and management of the patient's care. The following comments revise or confirm relevant cabral components. HPI: Ms. Flavia Case is a 68 year old female seen in consultation at the request of Dr. Kimber MD for opinion regarding treatment options for Paroxysmal Atrial Fibrillation, Aortic Stenosis, Coronary Artery Disease and st/p CABG and AVR in 1996, after being seen by Symone Mo) MD Kimber. She is currently symptomatic and complains of chest pain and dyspnea. She had a stress test which showed no ischemia but given her recurrent symptoms, the patient was taken for cath on 04/20. This showed a 100% SVG-RCA, 100% SVG-LCx and a patent SHELBY-lAD. The AV looked good during the catheterization. Complicating her entire presentation is her paroxysmal atrial fibrillation which is highly symptomatic. She reports feeling her heart racing when she goes into atrial fibrillation. This also leads to dyspnea. When she returns to normal rhythm it sounds like she is having pauses which do cause presyncopal symptoms Comorbidities include hypertension, diabetes mellitus, overweight, coronary artery disease, valvular heart disease, arrhythmia and angina. CABG and Aortic valve replacement (1996). She had radiation for a NSCLC in 2017 and she has no recurrence at this point, she has a reduced FEV1 to 53% but her DLCO is normal. Primary rhythm: sinus. Height: 160.00 cm BSA: 2.14 m? Weight: 103.28 kg BMI: 40.3 kg/m? I have personally reviewed her outside cardiac catheterization which shows severe 3 vessel CAD wit occluded right and LAD and patent KEY to LAD which wraps th apex and fills distal right. LM and a large LCx has at least moderate, according to Dr. Pino possibly 70 %. PET scan 05-09-18 CONCLUSIONS: ?1. PET Perfusion Study: Abnormal. ?2. No evidence of scarred myocardium. ?3. No evidence of hibernation. ?4. There is severe (>20%) ischemia in the anterior wall. ?5. There is moderate (10-20%) ischemia in the inferior wall. ?6. Left ventricle is mildly dilated. The left ventricle systolic function is low normal. ?7. Right ventricle is mildly dilated. The right ventricle systolic function is mildly decreased. ?8. There is a drop in Ejection Fraction post stess. ?9. There is transient ischemic dilation of the LV cavity with stress. 10. This is a high risk scan. The Echocardiogram reveals CONCLUSIONS: - Technically difficult exam due to body habitus. - Exam indication: Chest Pain - The left ventricle is normal in size. There is moderate concentric left ventricular hypertrophy. Left ventricular systolic function is normal. EF = 71 ? 5% (2D biplane) Grade II left ventricular diastolic dysfunction. - The right ventricle is normal in size. Right ventricular systolic function is normal. - The left atrial cavity is mildly dilated. - The visualized aorta is borderline dilated with a maximal dimension of 3.9 cm. - Mechanical prosthetic aortic valve (size #21). There is trace aortic valve regurgitation. The peak gradient is 98 mmHg, the mean gradient is 48 mmHg and the dimensionless valve index is 0.30. Prior Pk/Mn gradients= 80/39 mmHg. - Estimated right ventricular systolic pressure is 41 mmHg consistent with mild pulmonary hypertension. Estimated right atrial pressure is 3 mmHg based on IVC assessment. - Exam was compared with the prior CC echocardiographic exam performed on 05/24/2017. Significant gradients across LVOT as previously noted. PETRA CONCLUSIONS: - Exam indication: Routine surveillance of moderate or severe valvular stenosis (>1yr) - The left ventricle is normal in size. There is moderate concentric left ventricular hypertrophy. Left ventricular systolic function is normal. EF = 65 ? 5% (visual est.) - The right ventricle is normal in size. Right ventricular systolic function is normal. - The left atrial cavity is dilated. - There is a moderate amount of sub mitral valve calcification. - Mechanical prosthetic aortic valve (size #21). There is trace aortic valve regurgitation. The peak gradient is 71 mmHg and the mean gradient is 32 mmHg. S/p bileaflet mechanical aortic valve prosthesis implant w/ knwon hi gradients, opening well by recent C. -No change since prior echoes ECG Diagnosis:NORMAL SINUS RHYTHM INCOMPLETE LEFT BUNDLE BRANCH BLOCK BORDERLINE ECG PFTS IMPRESSION: ?[facility] ?Pulmonary Function Lab ?Pred ? ? ? LLN ? ULN ? ? ? Pre ? ? % ? Date ? 117374 ? Time ?08:47AM ? Height ?159.7 ? Weight ?100 ? FVC ?2.89 ? ? ?2.23 ?3.56 ? ? ?1.77 ? ? 61 ? FEV 1 ?2.19 ? ? ?1.63 ?2.76 ? ? ?1.17 ? ? 53 ? FEV1%F ? ? ?76.15 ? ? 66.35 85.94 ? ? 65.76 ? ? 86 ? DLCO ?20.16 ? ? 13.65 26.67 ? ? 16.54 ? ? 82 ? DL/VA ?4.35 ? ? ?3.03 ?5.67 ? ? ?4.38 ? ?101 ? VA ? 4.88 ? ? ?3.78 ?5.98 ? ? ?3.78 ? ? 77 ? Results for JESUS CASELY Monster ( ) as of 05/11/2018 16:33 Ref. Range 05/11/2018 01:13 Sodium Latest Ref Range: 136 - 144 mmol/L 141 Potassium Latest Ref Range: 3.7 - 5.1 mmol/L 3.9 Chloride Latest Ref Range: 97 - 105 mmol/L 98 CO2 Latest Ref Range: 22 - 30 mmol/L 28 BUN Latest Ref Range: 7 - 21 mg/dL 15 Creatinine Latest Ref Range: 0.58 - 0.96 mg/dL 0.88 Glucose Latest Ref Range: 74 - 99 mg/dL 167 (H) Protein, Total Latest Ref Range: 6.3 - 8.0 g/dL 6.8 Calcium Latest Ref Range: 8.5 - 10.2 mg/dL 9.4 Magnesium Latest Ref Range: 1.7 - 2.3 mg/dL 2.4 (H) Albumin Latest Ref Range: 3.9 - 4.9 g/dL 4.1 Bilirubin, Total Latest Ref Range: 0.2 - 1.3 mg/dL 0.3 Alkaline Phosphatase Latest Ref Range: 34 - 123 U/L 69 ALT Latest Ref Range: 7 - 38 U/L 28 AST Latest Ref Range: 13 - 35 U/L 27 Anion Gap Latest Ref Range: 9 - 18 mmol/L 15 eGFR- Unknown >60 eGFR-All Other Races Latest Units: . >60 Hematocrit Latest Ref Range: 36.0 - 46.0 % 34.9 (L) WBC Latest Ref Range: 3.70 - 11.00 k/uL 5.82 RBC Latest Ref Range: 3.90 - 5.20 m/uL 4.17 Hemoglobin Latest Ref Range: 11.5 - 15.5 g/dL 11.3 (L) Platelet Count Latest Ref Range: 150 - 400 k/uL 160 MCV Latest Ref Range: 80.0 - 100.0 fL 83.7 MCH Latest Ref Range: 26.0 - 34.0 pG 27.1 MCHC Latest Ref Range: 30.5 - 36.0 g/dL 32.4 MPV Latest Ref Range: 9.0 - 12.7 fL 11.7 RDW-CV Latest Ref Range: 11.5 - 15.0 % 16.4 (H) Absolute nRBC Latest Ref Range: <0.01 k/uL <0.01 PT Sec Latest Ref Range: 9.7 - 13.0 sec 16.5 (H) PT INR Latest Ref Range: 0.9 - 1.3 1.6 (H) APTT Latest Ref Range: 23.0 - 32.4 sec 66.9 (H) Impression: Paroxysmal Atrial Fibrillation, Aortic Stenosis, Coronary Artery Disease and st/p CABG and AVR in 1996 Plan: Redo, Full Sternotomy, +CABG x1-3 S-RCA, S-DG1, S-Lat Cx , AV Replacement (Tissue valve) and Maze Procedure Based on my evaluation she is high risk. Discussed the operaiton with Dr. Song and Dr. Pino, will do AVR and Maze and CABG only if conduits and dissection are favorable. STAFF PHYSICIAN: Marj Vargas MD DATE OF SERVICE: May 11, 2018 TIME OF SERVICE: 4:17 PM PROGRESS Observed: 05/10/2018 Status: COMPLETED Source: ARARAT 11:46 AM [facility] [place] REPOSITORY HNO ID: [id number] Author: Debbie Spears Service: Cardiovascular Medicine Author Type: Nurse Practitioner Type: Progress Notes Filed: 05/10/2018 11:48 AM Note Text: [facility] PROGRESS NOTE PRIMARY SERVICE: Hvi Card Intervention HOSPITAL DAY: # 1 INTERVAL HISTORY no acute events no further cp post stress test breathing is stable, cough has improved with treatment and with IV lasix for PETRA today and then CTS consult PHYSICAL EXAM BP 133/64 Pulse 71 Temp 36.5 ?C (97.7 ?F) (Oral) Resp 18 Ht 160 cm (5' 3) Wt 100.8 kg (222 lb 3.2 oz) SpO2 96% BMI 39.36 kg/m? Intake/Output Summary (Last 24 hours) at 05/10/18 1146 Last data filed at 05/10/18 0354 Gross per 24 hour Intake 0 ml Output 1300 ml Net -1300 ml General: no acute distress- walking around hallways without difficulty Skin warm and dry Neck- no JVP +bruits vs transmitted murmur Lungs- breath sounds clear throughout. Heart- RRR, + valve sound, II/ systolic murmur Abd- Soft nontedner, +BSx4 ext- trace edema, distal pulses intact. Musculoskeletal: No deformities Neurologic/Psychiatric: Oriented to time, place AND person, MAEx4 and No gross focal neurologic deficits MEDICATIONS Current hospital medications: heparin iv infusion (STANDARD NOMOGRAM) 25,000 units in NaCl 0.45% 250 mL PREMIX 0-3,000 Units/hr INTRAVENOUS CONTINUOUS heparin RATE CHANGE bolus 1,000-10,000 Units for subtherapeutic aptt results 1,000-10,000 Units INTRAVENOUS PRN heparin nomogram - NO INITIAL BOLUS OTHER ONCE (heparin bolus) busPIRone 5 mg tab(s) (BUSPAR) 5 mg ORAL TID ranolazine ER 500 mg tab(s) (RANEXA) 500 mg ORAL BID amiodarone 200 mg tab(s) (PACERONE) 200 mg ORAL DAILY loratadine 10 mg tab(s) (CLARITIN) 10 mg ORAL DAILY losartan 100 mg tab(s) (COZAAR) 100 mg ORAL DAILY carvedilol 3.125 mg tab(s) (COREG) 3.125 mg ORAL BID w MEALS amLODIPine 10 mg tab(s) (NORVASC) 10 mg ORAL DAILY aspirin, enteric coated 81 mg tab(s) 81 mg ORAL DAILY dextrose 40 % 15 g 15 g ORAL PRN glucagon 1 mg injection (GLUCAGEN) 1 mg INTRAMUSCULAR PRN dextrose 50 % 12.5 g injection 12.5 g INTRAVENOUS PRN acetaminophen 650 mg tab(s) (TYLENOL) 650 mg ORAL q 4 H PRN docusate sodium 100 mg cap(s) (COLACE) 100 mg ORAL BID PRN insulin lispro injection (rapid acting) (HumaLOG) SUBCUTANEOUS w MEALS insulin lispro injection (rapid acting) (HumaLOG) SUBCUTANEOUS AT BEDTIME polyethylene glycol 3350 17 g packet (MIRALAX, GLYCOLAX) 17 g ORAL DAILY PRN atorvastatin 80 mg tab(s) (LIPITOR) 80 mg ORAL DAILY guaiFENesin 1,200 mg ER tab(s) (MUCINEX) 1,200 mg ORAL q 12 H sodium chloride 0.65 % 2 [place] (AYR, OCEAN) 2 [place] EACH NOSTRIL PRN amoxicillin-clavulanic acid 875 mg tab(s) (AUGMENTIN) 875 mg ORAL q 12 H lactobacillus rhamnosus 10 billion cell (CULTURELLE) capsule 1 capsule ORAL DAILY DATA Recent Labs 05/10/18 0623 05/09/18220 WBC 4.98 7.17 HB 11.3* 11.5 HCT 35.6* 35.2* PLT 168 207 Recent Labs 05/09/18220 NA 138 K 4.2 CO2 20* BUN 16 CREAT 0.73 GLUC 90 MG 2.3 IMAGING reviewed ASSESSMENT AND PLAN 68 year old female with pmhx of CAD s/p CABG with recent crescendo angina,paroxysmal, symptomatic atrial fibirllation on coumadin, s/p mechanical AVR on coumadin. She most recently admitted at [facility] from 04/18/2018 through 04/25/2018. During that admission she presented with chest pain and dyspnea and ultimately had a stress test. This showed no ischemia but given her recurrent symptoms, the patient was taken for cath on 04/20. This showed a 100% SVG-RCA, 100% SVG-LCx and a patent SHELBY-lAD. The AV looked good during the catheterization. She was sent for PCI but despite multiple dilations, no stent was able to pass due to excessive calcifications and the procedure was aborted. She presented to [place] ED with recurrent anginal symptoms and was transferred to [facility] for further evaluation. Problem Coronary Artery Disease Involving [place] Coronary Artery of [place] Heart With Unstable Angina Pectoris (Hcc) History -s/p CABG with mechanical AVR 03/2018 angina pain stress test. This showed no ischemia 03/2018 [facility] LM distal 50% LAD - pLAD 85% eccentric, mLAD fills via SHELBY, D1 fills via L-L collaterals LCx- pLCx 25-50% stenosis RCA - pRCA with 95%, mRCA with 50%, dRCA occluded and fills via L-R collaterals SHELBY-LAD patent SVG-LCx occluded SVG-RCA occluded unsuccessful attempt at PCI of RCA BNP 653 PET There is severe (>20%) ischemia in the anterior wall. There is moderate (10-20%) ischemia in the inferior wall 05/09/2018 responded well to 1 dose of IV lasix Plan ASA 81mg daily coumadin held heparin gtt per nomagram cont coreg 3.125mg BID (Home BB is atenolol) Cont arb cont norvasc stop Imdur (will need to hold for PET and cautious use in symptomatic ) oral lasix CTS consult for redo AVR/CABG/MAZE dentures- no dental needed PFT's ordered will need carotid and vein mapping History of Mechanical Aortic Valve Replacement 1996 on coumadin at home 03/2018 OSH echo Echo The peak gradient is 98 mmHg (peak velocity = 494.0 cm/s). The mean gradient is 48 ?mmHg. PETRA today and then CTS surgery consult for redo AVR/CABG+/_ MAZE Acute On Chronic Diastolic Heart Failure (Hcc) see plan CAD for management. Nonrheumatic Aortic Valve Stenosis see plan s/p AVR. Paf (Paroxysmal Atrial Fibrillation) ([facility]) History of PAF-on coumadin Assessment symptomatic when in afib with palpitations. This also leads to dyspnea. When she returns to normal rhythm it sounds like she is having pauses which do cause presyncopal symptoms Plan cont BB for rate control cont oral amio monitor tele Copd (Chronic Obstructive Pulmonary Disease) ([facility]) on nebs at home- prn Rhinosinusitis with cough and increased sputum since last hospitalizations- improved slightly with amoxicillin that was given for UTI-(has completed that course) CXR okay 05/10/2018 much improved with treatment Plan resume mucinex that was helping with sputum nebs as needed- check allergies nasal spray- saline will try augmentin (interactions with zithromax and ranexa) will need pft's Case to be discussed with staff- Dr. Pino covering SIGNATURE: Debbie Spears APRN.POINT OF CARE TECHNICIAN PATIENT NAME: Flavia Case DATE: May 10, 2018 TIME: 11:46 AM PAGER/CONTACT #: SEE BELOW For communication after 5 pm on weekdays and after 12 pm on weekends, please page the following: - Clinical Cardiology patients on all floors: page [phone] - Other Cardiology patients on J5 and J6: page [phone] - Other Cardiology patients on J7 and J8: page [phone] ETX [id number] PROGRESS Observed: 05/10/2018 Status: COMPLETED Source: ARARAT 11:18 AM [facility] [place] REPOSITORY HNO ID: [id number] Author: Melissa (Rn) KOKO Madrid Service: (none) Author Type: Registered Nurse Type: Progress Notes Filed: 05/10/2018 12:29 PM Note Text: AMBULATORY PATIENT EDUCATION TOPIC: PETRA READINESS TO LEARN COGNITIVE ABILITY: Alert and oriented MOTIVATION TO LEARN: Interested FAMILY SUPPORT: None - Unavailable/disinterested INSTRUCTION PROVIDED TO: Patient PATIENT LEARNS BEST BY: Multiple Methods FACTORS AFFECTING LEARNING: None PHYSICAL LIMITATIONS AFFECTING LEARNING: None LEARNING RESPONSE DIAGNOSIS: METHOD OF INSTRUCTION: Individual instruction Written instruction - handouts PATIENT / FAMILY RESPONSE: Verbalizes understanding of: POST-PROCEDURE INSTRUCTIONS-Correct actions to take to reduce post procedure complications PRE-PROCEDURE INSTRUCTIONS-Correct action to take to follow pre-procedure instructions FOLLOW-UP PLAN: Complete - No need for follow-up SUPPLEMENTAL MATERIAL: Procedure discharge instructions REFERRAL (RECOMMENDATION): None Electronically Signed By Melissa Madrid RN In Department: CARDIOLOGY CBC Collected: 05/10/2018 Status: F Source: ARARAT 6:23 AM [facility] REPOSITORY TYPE CODE TESTS RESULT OUT OF REFERENCE UNITS RANGE LAB WBC 3.70-11.00 k/uL WBC 4.98 LAB RBC 3.90-5.20 m/uL RBC 4.21 LAB HGB 11.5-15.5 g/dL Low Hemoglobin 11.3 LAB HCT 36.0-46.0 % Low Hematocrit 35.6 LAB MCV 80.0-100.0 fL MCV 84.6 LAB MCH 26.0-34.0 pG MCH 26.8 LAB MCHC 30.5-36.0 g/dL MCHC 31.7 LAB RDWCV 11.5-15.0 % RDW-CV High 16.5 LAB PLTCT 150-400 k/uL Platelet Count 168 LAB MPV 9.0-12.7 fL MPV 11.6 LAB ABSNUC <0.01 k/uL Absolute nRBC <0.01 Performed By: #### CBC, PT, PTT, HBA1C, CMP, LIPB, MG1, TSH #### [facility] [address] [address] PROTIME Collected: 05/10/2018 Status: F Source: ARARAT 6:23 AM [facility] REPOSITORY TYPE CODE TESTS RESULT OUT OF RANGE REFERENCE UNITS LAB PSEC 9.7-13.0 sec High PT Sec 18.7 LAB INR 0.9-1.3 High PT INR 1.9 Result Comment: Vitamin K Antagonist (VKA) Therapeutic Range: INR 2 to 3 (Target INR of 2.5) Note: For patients treated with VKA drugs, such as warfarin, the [place] [employer] 2012 Guideline recommends a therapeutic INR range of 2 to 3 (target INR of 2.5). This recommendation includes high-risk patients with antiphospholipid syndrome with previous arterial or venous thromboembolism, current-generation mechanical or bioprosthetic aortic heart valve replacement. Note: Patients with mechanical aortic valve replacement and additional risk factors for thromboembolic events (atrial fibrillation, previous thromboembolism, LV dysfunction, hypercoagulable conditions) or an older generation mechanical AVR (i.e., ball in-Cage) or any mechanical MVR should have a INR therapeutic range of 2.5 to 3.5 (target INR of 3). Joe GH, et al. Chest 2012, 141:7S-47S Catie RA, et al. [facility] 2017, 70: 252-289 Performed By: #### CBC, PT, PTT, HBA1C, CMP, LIPB, MG1, TSH #### [facility] [address], [place] [address] APTT Collected: 05/10/2018 Status: F Source: ARARAT 6:23 [facility] REPOSITORY TYPE CODE TESTS RESULT OUT OF RANGE REFERENCE UNITS LAB APTT 23.0-32.4 sec High APTT 38.4 Result Comment: Unfractionated Heparin Therapeutic Ranges: Standard Heparin Nomogram: 53 to 78 seconds (anti-Xa level of 0.3 to 0.7 U/ml) Low Dose/ACS Nomogram: 49 to 67 seconds (anti-Xa level of 0.2 to 0.5 U/ml) Stroke Treatment Nomogram: 49 to 67 seconds (anti-Xa level of 0.2 to 0.5 U/ml) Note: The APTT therapeutic range has been determined for the current lot of laboratory APTT reagent in use throughout the [employer]. Performed By: #### CBC, PT, PTT, HBA1C, CMP, LIPB, MG1, TSH #### [facility] [address] [place], [place] [address] HEMOGLOBIN A1C Collected: 05/10/2018 Status: F Source: ARARAT 6:[address] [place] [address] REPOSITORY TYPE CODE TESTS RESULT OUT OF REFERENCE UNITS RANGE LAB HGBA1C 4.3-5.6 % High Hemoglobin A1c 6.9 Result Comment: [place] Diabetes Association guidelines indicate that patients with HgbA1c in the range 5.7-6.4% are at increased risk for development of diabetes, and intervention by lifestyle modification may be beneficial. HgbA1c greater or equal to 6.5% is considered diagnostic of diabetes. LAB HBA0 mg/dL Est. Average Glucose 151 Result Comment: eAG: (Estimated average glucose) is a calculated value from HgbA1c and is retail service representative of the average blood glucose level in the last 2-3 month period. Performed By: #### CBC, PT, PTT, HBA1C, CMP, LIPB, MG1, TSH #### [facility] [address] [place], [place] [address] COMP METABOLIC PANEL Collected: 05/10/2018 Status: F Source: ARARAT 6:23 AM [facility] REPOSITORY TYPE CODE TESTS RESULT OUT OF REFERENCE UNITS RANGE LAB TP 6.3-8.0 g/dL Protein, Total 6.6 LAB ALB 3.9-4.9 g/dL Albumin 4.0 LAB CA 8.5-10.2 mg/dL Calcium, Total 9.5 LAB TBIL 0.2-1.3 mg/dL Bilirubin, Total 0.3 LAB ALKP 34-123 U/L Alkaline Phosphatase 71 LAB AST 13-35 U/L AST 25 LAB GLU 74-99 mg/dL Glucose High 110 Result Comment: The [place] Diabetes Association (ADA) provides guidance for cutoff values for fasting glucose and random glucose. The ADA defines fasting as no caloric intake for at least 8 hours. Fas ting plasma glucose results between 100 to 125 mg/dL indicate increased risk for diabetes (prediabetes). Fasting plasma glucose results greater than or equal to 126 mg/dL meet the criteria for diagnosis of diabetes. In the absence of unequivocal hyperglycemia, results should be confirmed by repeat testing. In a patient with classic symptoms of hyperglycemia or hyperglycemic crisis, random plasma glucose results greater than or equal to 200 mg/dL meet the criteria for diagnosis of diabetes. Reference: Standards of Medical Care in Diabetes 2016, [place] Diabetes Association. Diabetes Care. 2016.39(Suppl 1). LAB BUN 7-21 mg/dL BUN 14 LAB CRET 0.58-0.96 mg/dL Creatinine 0.78 LAB NA 136-144 mmol/L Sodium 141 LAB K 3.7-5.1 mmol/L Potassium Low 3.6 LAB CL 97-105 mmol/L Chloride 100 LAB CO2 22-30 mmol/L CO2 27 LAB AGAP 9-18 mmol/L Anion Gap 14 LAB ALT 7-38 U/L ALT 26 LAB GFRAA eGFR- Amer. >60 LAB GFRNAA . eGFR-All Other Races >60 Result Comment: eGFR (Estimated GFR) Units of measure: mL/min/1.73 meters squared eGFR is derived from the reexpressed MDRD Study equation using the following parameters: serum creatinine, age, gender and race. The creatinine assay has been calibrated to be traceable to IDMS. An eGFR <60 mL/min/1.73m2 for >3 months is consistent with chronic kidney disease. Refer to KDOQI guidelines for clinical interpretation. In patients with unstable renal function, e.g. those with acute kidney injury, the eGFR may not accurately reflect actual GFR. Performed By: #### CBC, PT, PTT, HBA1C, CMP, LIPB, MG1, TSH #### [facility] [address] [place], [place] [address] LIPID PANEL, BASIC Collected: 05/10/2018 Status: F Source: ARARAT 6:23 AM [facility] [place] REPOSITORY TYPE CODE TESTS RESULT OUT OF REFERENCE UNITS RANGE LAB CHOL <200 mg/dL Cholesterol 121 Result Comment: <200 mg/dL, Desirable 200-239 mg/dL, Borderline high >239 mg/dL, High LAB TRIGLY <150 mg/dL Triglyceride High 187 Result Comment: <150 mg/dL, Normal 150-199 mg/dL, Borderline high 200-499 mg/dL, High >499 mg/dL, Very high LAB HDL >39 mg/dL HDL-Cholesterol Low 23 Result Comment: 40-59 mg/dL, Acceptable >59 mg/dL, High: Negative risk factor for coronary heart disease <40 mg/dL, Low: Positive risk factor for coronary heart disease LAB LDL <100 mg/dL LDL-Cholesterol 61 Result Comment: <100 mg/dL, Optimal 100-129 mg/dL, Near optimal/above optimal 130-159 mg/dL, Borderline high 160-189 mg/dL, High >189 mg/dL, Very high Secondary prevention optimal LDL Cholesterol levels are recommended to be < 70 mg/dL LAB NONHDL <130 mg/dL Non HDL Cholesterol 98 Result Comment: <130 mg/dL, Optimal 130-159 mg/dL, Near optimal/above optimal 160-189 mg/dL, Borderline high 190-219 mg/dL, High >219 mg/dL, Very high Secondary prevention optimal non HDL Cholesterol levels are recommended to be < 100 mg/dL LAB FT hrs Fasting Time Unknown LAB VLDL <30 mg/dL VLDL 37 High Cholesterol LAB TCHDL <5.10 TC:HDL Ratio High 5.26 LAB LDLHDL <2.54 LDL:HDL Ratio High 2.65 Result Comment: Reference: 1. National Cholesterol Education Program ATP III Guideline At-A-Glance Quick Desk Reference: National Heart, Lung, and Blood [place]. National Institutes of Health. 2001: NIH Publication No. 01-3305. 2. An International Atherosclerosis Society position paper: global recommendations for the management of dyslipidemia: executive summary, Atherosclerosis. 2014: 232(2):410-413. Performed By: #### CBC, PT, PTT, HBA1C, CMP, LIPB, MG1, TSH #### [facility] [address] [place], [place] [address] MAGNESIUM Collected: 05/10/2018 Status: F Source: ARARAT 6:23 AM [facility] REPOSITORY TYPE CODE TESTS RESULT OUT OF REFERENCE UNITS RANGE LAB MG 1.7-2.3 mg/dL Magnesium 2.3 Performed By: #### CBC, PT, PTT, HBA1C, CMP, LIPB, MG1, TSH #### [address] [address] TSH Collected: 05/10/2018 Status: F Source: ARARAT 6:23 AM [facility] REPOSITORY TYPE CODE TESTS RESULT OUT OF RANGE REFERENCE UNITS LAB TSH 0.400-5.500 uU/mL TSH 2.130 Performed By: #### CBC, PT, PTT, HBA1C, CMP, LIPB, MG1, TSH #### [facility] [address] [place], [place] [address] CK, TOTAL AND CKMB Collected: 05/09/2018 Status: F Source: ARARAT 6:33 PM [facility] REPOSITORY TYPE CODE TESTS RESULT OUT OF REFERENCE UNITS RANGE LAB CK 42-196 U/L 64 CK LAB MB <4.3 ng/mL MB 1.9 LAB CKMBRI 0.0-4.0 % CK CK MB MB % not % reported with CK <100 U/L. Performed By: #### CKCKMB #### [facility] [address] [place], [place] [address] TROPONIN T Collected: 05/09/2018 Status: F Source: ARARAT 6:33 PM [facility] REPOSITORY TYPE CODE TESTS RESULT OUT OF REFERENCE UNITS RANGE LAB TROPT 0.000-0.029 ng/mL Troponin T <0.010 Performed By: #### CASSIA #### [facility] [address] [place], [place] [address] PROGRESS Observed: 05/09/2018 Status: COMPLETED Source: ARARAT 2:28 PM [facility] REPOSITORY HNO ID: [id number] Author: Sheldon Guerra Service: (none) Author Type: (none) Type: Progress Notes Filed: 05/09/2018 2:29 PM Note Text: Radiology Service Progress Note PATIENT NAME: Flavia Case DATE OF SERVICE: May 09, 2018 TIME: 2:28 PM PATIENT IDENTITY VERIFICATION COMPLETED USING TWO (2) METHODS: Patient confirmed name verbally and Date of . PATIENT GENDER DATA: Female. status: : No status: NO. PATIENT RELEVANT IMPLANT DATA REVIEWED: Not Applicable RADIOLOGY DEPARTMENT: General X-ray: Exam(s) Completed: Chest X-Ray PERIPHERAL IV DATA: Not applicable SIGNED BY: Sheldon Guerra May 09, 2018 2:28 PM XR CHEST 2V FRONTAL/LAT Observed: 05/09/2018 Status: F Source: ARARAT 2:25 PM [facility] REPOSITORY * * *Final Report* * * DATE OF EXAM: May 09 2018 2:25PM JIX [id number] - XR CHEST 2V FRONTAL/LAT / PROCEDURE REASON: Shortness of breath * * * * Physician Interpretation * * * * EXAMINATION: CHEST RADIOGRAPH (2 VIEW FRONTAL and LATERAL) CLINICAL HISTORY: Shortness of breath, MQ: XC2_5 Comparison: 2 view chest radiograph 10/20/2016. RESULT: Lines, tubes, and devices: None. Lungs and pleura: Stable size of approximately 1 cm right lower lobe nodule likely representing a granuloma. Left apical ill-defined opacity probably from radiation changes. No new consolidations. No pneumothorax. Cardiomediastinal silhouette: Borderline enlarged cardiomediastinal silhouette. Other: Mild degenerative changes of the thoracic spine. IMPRESSION: See report. Tax Associate Attorney: FAHAD Transcribe Date/Time: May 09 2018 2:35P Dictated by : QUANG JOHNSON MD This examination was interpreted and the report reviewed and electronically signed by: LEN FLEMING MD on May 09 2018 4:51PM EST [id number] NM PET CARDIAC PERF Observed: 05/09/2018 Status: F Source: ARARAT REST/STRESS 12:52 PM [facility] REPOSITORY * * *Final Report* * * DATE OF EXAM: May 09 2018 12:52PM [facility] 0109 - NM PET CARDIAC PERF REST/STRESS / PROCEDURE REASON: Prior revascularization (either PTCA or CABG) * * * * Physician Interpretation * * * * PATIENT: Name: FLAVIA CASE Age: 68 years Gender: F CONCLUSIONS: 1. PET Perfusion Study: Abnormal. 2. No evidence of scarred myocardium. 3. No evidence of hibernation. 4. There is severe (>20%) ischemia in the anterior wall. 5. There is moderate (10-20%) ischemia in the inferior wall. 6. Left ventricle is mildly dilated. The left ventricle systolic function is low normal. 7. Right ventricle is mildly dilated. The right ventricle systolic function is mildly decreased. 8. There is a drop in Ejection Fraction post stess. 9. There is transient ischemic dilation of the LV cavity with stress. 10. This is a high risk scan. Gated Stress IR:3D:SC:CTAC Gated Rest IR:3D:SC:CTAC LVEF % 64 66 Prior Study Comparison No prior nuclear cardiology exam available for comparison. Nuclear Med Report:Gated Rb-82 Regadenoson Stress PET Study: The patient was injected with Rb-82 at rest, and ECG gated tomographic images were obtained. Approximately 10 minutes later, the patient received 0.4 mg of regadenoson, via rapid IV push, immediately followed by Rb- 82 30 seconds after starting the regadenoson infusion; and ECG gated tomographic images were obtained. See administered doses below. [facility] Date of service: 05/09/2018 12:04:52 PM Ordering Physician: Requesting Physician: EDY SAMUEL Indication: Assessment for suspected CAD. Interpreting physician: Jack Man MD Weight: 102.97 kg BMI: CT Dose-Length Product(DLP): 44.0 mGy*cm. CT Dose Reduction Employed: Yes. Exam Type: Rest Stress Radiopharm: Rb-82 Rb-82 Dosage(mCi): 35 35 Atten Correction: performed performed Stress Agent: Regadenoson 0.4mg Supply provided from [facility] Image Quality The overall study imaging quality was deemed to be good. FINDINGS: Left Ventricle Wall Motion: Stress IR:3D:SC:CTAC - The mid and distal anterior wall and inferior wall are hypokinetic. All remaining scored segments are normal. Rest IR:3D:SC:CTAC - Gated Stress IR:3D:SC:CTAC - Gated Rest IR:3D:SC:CTAC - Reversibility - Stress IR:3D:SC:CTAC Stress Gated Stress Gated Rest IR:3D:SC:CTAC IR:3D:SC:CTAC IR:3D:SC:CTAC LVEF: 64 % 66 % ED Volume: 166 ml 136 ml ES Volume: 59 ml 46 ml TID: 1.32 Perfusion Findings Stress IR:3D:SC:CTAC - Summed Score=13 There is a moderate perfusion defect in the apical lateral segment, apical anterior segment, basal inferior segment, and apex. There is a mild perfusion defect in the anterior wall, mid and distal inferior wall, and apical septal segment. All remaining scored segments show normal perfusion. Rest IR:3D:SC:CTAC - Summed Score=0 All scored segments reflect normal perfusion. Stress IR:3D:SC:CTAC Rest IR:3D:SC:CTAC Summed Score=13 Summed Score=0 LEFT VENTRICLE The left ventricle is mildly dilated. Left ventricular systolic function is low normal. Right Ventricle The right ventricle is mildly dilated. Right ventricle systolic function is mildly decreased. Stress Test Findings: Positron Emission Aleksandar Test Findings: There is no evidence of scarring. There is no evidence of hibernation. Final Tax Associate Attorney: DANNY Transcribe Date/Time: May 09 2018 12:04P Dictated by : JACK MAN MD This examination was interpreted and the report reviewed and electronically signed by: JACK MAN MD on May 09 2018 1:38PM EST [id number] NURSING PROG Observed: 05/09/2018 Status: COMPLETED Source: [place] 12:50 PM [facility] REPOSITORY HNO ID: [id number] Author: Noreen SamuelsRn) KOKO Moralez Service: Nursing Author Type: Registered Nurse Type: Nursing Progress Note Filed: 05/09/2018 12:52 PM Note Text: RADIOLOGY SERVICE PROGRESS NOTE SERVICE DATE: 05/09/2018 SERVICE TIME: 12:50 PM PATIENT IDENTITY VERIFICATION COMPLETED USING TWO (2) METHODS: Patient confirmed name and Date of verbally. PATIENT GENDER DATA: female : No ALLERGIES: Reviewed and unchanged MEDICATIONS REVIEWED BY: Wood Polisher and Noreen Moralez RN PROCEDURE TYPE: NM PET Myocardial Imagin.4 mg of Regadenoson was administered at 1224 over 10 Seconds. Reversal agent used: Nitroglycerin. 0.4mg sl at 1235 and NM PET Myocardial Action Taken: POCT Blood Glucose 148 mg/dL at 1203 (QC = OK). Viability not needed per Dr Yuan MAR SITE: Inpatient - refer to LDA documentation POST EXAM PIV STATUS: Inpatient see LDA documentation PATIENT DISCHARGED TO: Ambulatory patient, left [place] department area. A Diagnostic radioactive procedure has taken place, with no further precautions necessary other than routine body substance precautions. More information regarding radiation safety can be found using this link: [email or web address] SIGNATURE: Noreen Moralez RN PATIENT NAME: Flavia Case DATE: May 09, 2018 TIME: 12:50 PM PAGER/CONTACT #:[phone] PROGRESS Observed: 05/09/2018 Status: COMPLETED Source: ARARAT 12:44 PM [facility] [place] [facility] REPOSITORY HNO ID: [id number] Author: Samantha Crenshaw Service: (none) Author Type: (none) Type: Progress Notes Filed: 05/09/2018 12:45 PM Note Text: 12:10pm 70 mCi 82Rb iv for PET CARDIAC PERFUSION STRESS test. samantha rousemt NUTRITION Observed: 05/09/2018 Status: COMPLETED Source: ARARAT 12:23 PM [facility] [place] [facility] REPOSITORY HNO ID: [id number] Author: Marin Cooney RD Service: Nutrition Therapy Author Type: Registered Dietitian Type: Nutrition Filed: 05/09/2018 12:34 PM Note Text: NUTRITION THERAPY INITIAL ASSESSMENT SERVICE DATE: 05/09/2018 SERVICE TIME: 0900 RECOMMENDED MALNUTRITION DIAGNOSIS: NO MALNUTRITION IDENTIFIED NUTRITION CARE PLAN: Problem, Etiology and Signs/Symptoms: Suboptimal oral intake related to decreased appetite and inability to meet nutritional needs as evidenced by pt interview. Intervention: 1) NPO currently - Recommend HH 2g Na+ restricted diet once medically appropriate 2) Denies need for supplements/snacks 3) Recommend daily MVI 4) Maintain normal bowel regimen 5) Please document accurate intakes of meals and supplements to further assess nutritional status. Thank you. Goal: pt to meet >/ 75% of est needs prior to d/c. Monitor and Evaluation: 1) PO intake 2) Supplement tolerance 3) Wt status 4) Biochemical Markers 5) Skin integrity 6) Plan of care Discharge Nutrition Recommendations: Diet: HH 2g Na+ restricted diet as tolerated Supplements: high kcal/high ptn commercial beverage if PO </ 75% of est needs _ _ _ _ _ _ _ _ _ _ _ _ _ _ _ _ _ _ _ _ _ _ _ _ _ _ _ _ _ _ _ _ _ _ _ _ _ _ _ _ _ _ _ _ _ _ _ Per HPI: This is a 68 year old female with a past history notable for: ? - CAD s/p CABG with recent crescendo angina - hematuria - cystitis due to E.Coli s/p treatment with amoxicillin - HLD - morbid obesity - paroxysmal, symptomatic atrial fibirllation on coumadin - s/p mechanical AVR on coumadin - DM2 - HTN - COPD ? Ms Case presents from [place] ED with recurrent anginal symptoms. Patient has been in the hospital 4 times during the past month with the same symptoms, most recently admitted at [facility] from 04/18/2018 through 04/25/2018. During that admission she presented with chest pain and dyspnea and ultimately had a stress test. This showed no ischemia but given her recurrent symptoms, the patient was taken for cath on 04/20. This showed a 100% SVG-RCA, 100% SVG-LCx and a patent SHELBY- lAD. The AV looked good during the catheterization. She was sent for PCI but despite multiple dilations, no stent was able to pass due to excessive calcifications and the procedure was aborted. ? Also during this admission, she had a supratherapeutic INR and hematuria. She ultimately did ok with heparin and urology felt this was due to an E.coli UTI. ? Complicating her entire presentation is her paroxysmal atrial fibrillation which is highly symptomatic. She reports feeling her heart racing when she goes into atrial fibrillation. This also leads to dyspnea. When she returns to normal rhythm it sounds like she is having pauses which do cause presyncopal symptoms. She denies arun syncope. She tells me that the presyncopal symptoms do not come in the setting of exertion or while she is having chest pain. ? At the time of my evaluation, she is chest pain free and in normal rhythm. Nutritional Intake Prior to Admission: Pt reports slightly decreased appetite and intakes COOKY PACKER, mainly d/t previous hospitalizations. Pt denies any chewing/swallowing difficulties, no current N/V/D/C. Pt denies any food allergies at present. Pt is agreeable to supplementation while admitted. GI symptoms: none Nutrition Abdominal Exam: and not assessed ANTHROPOMETRICS Height: 160 cm (5' 3) Admission Weight: 103.3 kg (227 lb 11.2 oz) Current Weight: 103.3 kg (227 lb 11.2 oz) Body mass index is 40.34 kg/m?. class 3 obesity Pt reports UBW of ~230-240# COOKY PACKER. HT/WT/BMI HEIGHT WEIGHT 06/05/2017 101.152 kg 06/15/2017 5' 3 100.789 kg 06/28/2017 93.441 kg 07/25/2017 101.016 kg 10/24/2017 105.235 kg 12/19/2017 105.688 kg 01/23/2018 105.688 kg 01/24/2018 104.781 kg 05/01/2018 102.967 kg 05/09/2018 5' 3 103.284 kg [place] Body Weight: 52.3kg Dosing Weight: 103.3 kg Resting Metabolic Rate: 1531 Estimated kilocalorie needs: 1238-8775 kilocalories determined by 15-20 kcal/kg @ CBW Estimated protein needs: 83-103 grams determined by 0.8-1.0 g/kg Current weight Estimated fluid needs: ~6550-7163 milliliters based on 1 mL per kcal (unless otherwise indicated) NUTRITION FOCUSED PHYSICAL EXAM: Subcutaneous Fat Loss Orbital Mild Triceps No fat loss Mid-axillary at the iliac crest Unable to determine at this time Muscle Loss Locations: Temporalis No muscle loss Pectoralis No muscle loss Deltoids No muscle loss Interosseous No muscle loss Latissimus dorsi, trapezius Unable to determine at this time Quadriceps No muscle loss Gastrocnemius Unable to determine at this time Potential micronutrient deficiency revealed in: No deficiency identified Edema: Yes Lower extremities Moderate 2+ Ascites: No Assessment of Functional Status: Functional capacity is unrelated to nutrition status Temperature Max:36.7 ?C (98.1 ?F) BP 162/73 Pulse 70 Resp 18 Recent Labs 05/09/18 0221 GLUC 90 BUN 16 CREAT 0.73 NA 138 K 4.2 CHLOR 102 CO2 20* ALB 4.5 HB 11.5 HCT 35.2* WBC 7.17 MG 2.3 Potential Signs of Inflammation: no identifiable sources Current Pertinent Medications: busPIRone 5 mg tab(s) (BUSPAR) 5 mg ORAL TID ranolazine ER 500 mg tab(s) (RANEXA) 500 mg ORAL BID amiodarone 200 mg tab(s) (PACERONE) 200 mg ORAL DAILY loratadine 10 mg tab(s) (CLARITIN) 10 mg ORAL DAILY losartan 100 mg tab(s) (COZAAR) 100 mg ORAL DAILY carvedilol 3.125 mg tab(s) (COREG) 3.125 mg ORAL BID w MEALS amLODIPine 10 mg tab(s) (NORVASC) 10 mg ORAL DAILY aspirin, enteric coated 81 mg tab(s) 81 mg ORAL DAILY docusate sodium 100 mg cap(s) (COLACE) 100 mg ORAL BID PRN insulin lispro injection (rapid acting) (HumaLOG) SUBCUTANEOUS w MEALS insulin lispro injection (rapid acting) (HumaLOG) SUBCUTANEOUS AT BEDTIME polyethylene glycol 3350 17 g packet (MIRALAX, GLYCOLAX) 17 g ORAL DAILY PRN atorvastatin 80 mg tab(s) (LIPITOR) 80 mg ORAL DAILY NaCl 0.9% 2-10 mL 2-10 mL INTRAVENOUS ONCE furosemide 20 mg injection (LASIX) 20 mg INTRAVENOUS ONCE guaiFENesin 1,200 mg ER tab(s) (MUCINEX) 1,200 mg ORAL q 12 H lactobacillus rhamnosus 10 billion cell (CULTURELLE) capsule 1 capsule ORAL DAILY MNT Billing Type: Initial Assess/15 min 4 units SIGNATURE: Marin Cooney RD, LD PATIENT NAME: Flavia Case DATE: May 09, 2018 TIME: 12:24 PM PAGER: [phone] CASE MGT INIT Observed: 05/09/2018 Status: COMPLETED Source: [facility] 8:35 AM [facility] REPOSIT[facility] HNO ID: [id number] Author: Bella (Rn) KOKO Bunch Service: Care Management Author Type: Registered Nurse Type: Care Mgt Initial Assessment Filed: 05/09/2018 9:19 AM Note Text: CARE MANAGEMENT: ASSESSMENT AND DISCHARGE PLAN SERVICE DATE: 05/09/2018 SERVICE TIME: 08:35 AM PRIMARY CARE PHYSICIAN: Keri Gamez MD *Confirmed this is patients PCP ADMISSION STATUS: Inpatient Needs Prior to Discharge: To Be Determined 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 No Advance Directive: Current Advance Directive: Health Care Power of Opto Mechanical Engineer;Living Will In Chart: No Legislative Assistant Attempted to Assist with AD Completion: Yes Action: Education Provided (Patient reports has AD at home and on file at [facility]. She reports will ask family to bring a copy. ) *Patient reports kenia Rogers is her HCPOA. She did not have a phone number to provide for him. She will ask family to bring in copies of AD from home. Health Literacy: 1. How often do you need to have someone help you when you read instructions, pamphlets, or other written material from your doctor or pharmacy? Never - 1 2. How confident are you filling out medical forms by yourself? Extremely - 1 If Patient scores > 3 on either question, the following interventions were put into place: Patient did not score > 3 FUNCTIONAL AND COGNITIVE/BEHAVIORAL PRIOR TO ADMISSION: Baseline Mental Status: Alert AND Oriented, Person, Place , Time and Situation Functional Status: Independent Does Patient Currently Receive Any Community Services or Home Care? None Equipment Prior to Admission: Nebulizer, BP cuff, Shower chair Has the Patient Been in a Fdc Facility in the Past 30 days? No SOCIAL: Living Arrangement: Home Lives With: Great granddaughter (who is 15 y/o). Reports daughter and granddaughter also stay/assist daily. Financial Resources: Retired Primary Contact: Extended Emergency Contact Information Primary Emergency Contact: Bear Almanzar Mobile Relation: Daughter Secondary Emergency Contact: Laci Case Address: [address] [place] [address] Mobile Relation: Son Supportive: Yes Other Important Patient Contacts: None Caregiver Assessment: Caregiver is ready, willing and able to meet the patient's needs as recommended by the inter-professional team? 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 Does the patient have an acute stroke diagnosis, or has the patient had a stroke during this admission? No Medication Adherence: I am convinced of the importance of my prescription medication: Agree completely - 0 I worry that my prescription medication will do more harm than good to me Disagree completely - 0 I feel financially burdened by my [id number] expenses for my prescription medication: Disagree completely - 0 Patient is categorized as low risk < 2 Are you interested in bedside delivery of your medications? Yes Food Concerns: In the Last Month, Have You had Trouble Getting Food? No trouble getting food During the Last Month, Have You Worried Whether Your Food Would Run Out Before You Had Enough Money to Buy More? No Is the Patient Psychosocially Complex? No ASSESSMENT AND PLAN: Medical Needs: 2 or more chronic diseases Psychosocial Needs: None FREEDOM OF CHOICE EXPLAINED: N/A POTENTIAL TRANSITION PLANS Home To Be Determined Patient is a 68 year old female who was admitted on 05/09/18 from [place] ED with recurrent anginal symptoms. She reports multiple recent admissions for same symptoms. She is awaiting further evaluation at [facility]. 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 She reports great granddaughter (Caren) stays with her and that her daughter (Bear) is there daily as well. She reports being independent with ADL's, with minimal assistance from family (for laundry as it's in the basement). She drives to her own appointments. No HHC or Home O2 in place COOKY PACKER. Patient reports supportive family available to assist as needed at discharge. She also reports son will provide transportation when ready for discharge. Patient has a PCC on file at her PCP office: Himanshu Aquino ([phone]). Called PCC to notify her of discharge, VM left. Will follow and plan for discharge accordingly. SIGNATURE: Bella Bunch RN PATIENT NAME: Flavia Case DATE: May 09, 2018 TIME: 08:35 AM PAGER/CONTACT #: [phone] URINALYSIS Collected: 05/09/2018 Status: F Source: [place] 5:58 AM [facility] REPOSITORY TYPE CODE TESTS RESULT OUT OF REFERENCE UNITS RANGE LAB UCOL Yellow Color Yellow LAB [facility] Clear Clarity Clear LAB UGLUC Negative mg/dL Glucose, Urine Negative LAB UBIL Negative Bilirubin, Urine Negative LAB UKET Negative Ketones, Urine Negative LAB USPG 1.005-1.030 Specific [place], Ur 1.013 LAB UHGB Negative Hemoglobin/Blood, Negative Ur LAB UPH 4.5-8.0 pH 5.0 LAB UPROT Negative mg/dL Protein, Urine Negative LAB UUROB Normal Urobilinogen Normal LAB UNITR Negative Nitrites Negative LAB ULKEST Negative Leukest Negative LAB UCOM Comments SEE COMMENT Result Comment: Microscopic not warranted LAB UMCOM Urine SEE Bozena Comment COMMENT Result Comment: N/A Performed By: #### UA #### [facility] [address], [place] [address] ECG COMPLETE W Observed: 05/09/2018 Status: F Source: ARARAT INTERPRETATION 4:10 AM [facility] REPOSITORY NAME : FLAVIA CASE PID : [id number] : 1950 Gender : Female Race : ORD : [id number] Procedure Date : May 09 2018 04:10:35 Edit Date : May 10 2018 13:08:16 Diagnosis:NORMAL SINUS RHYTHM INCOMPLETE LEFT BUNDLE BRANCH BLOCK BORDERLINE ECG Confirmed by AARTI CONTRERAS M.D. ([id number]) on 05/10/2018 12:54:20 PM Ventricular Rate : 68 BPM Atrial Rate : 68 BPM P-R Interval : 184 ms QRS Duration : 120 ms Q-T Interval : 456 ms QTC Calculation(Bezet) : 484 ms P [place] : 27 degrees R [place] : 71 degrees T [place] : 16 degrees Test Reason : ANGINA Location : 361 : [id number] Overread By : AARTI CONTRERAS M.D. Edited By : AARTI CONTRERAS M.D. Referred By : MATTI LEDESMA Acquired by : Kathleen Osorio NURSING PROG Observed: 05/09/2018 Status: COMPLETED Source: [place] 3:51 AM [facility] REPOSITORY HNO ID: [id number] Author: Jeffry (Rn) KOKO Dobbs Service: (none) Author Type: Registered Nurse Type: Nursing Progress Note Filed: 05/09/2018 3:53 AM Note Text: Nursing Progress Note Patient Name: Flavia Case Patient Location: [place] [address]-- Daily Note:Pt transferred to [facility] in stable condition. Pt was oriented to room and call light. Oriented about falls risk Skin check done with Jhony KAPADIA. Will continue to monitor and assess. This note was completed by: Jeffry Dobbs RN CBC AND DIFFERENTIAL Collected: 05/09/2018 Status: F Source: ARARAT 2:21 AM [facility] REPOSITORY TYPE CODE TESTS RESULT OUT OF REFERENCE UNITS RANGE LAB WBC 3.70-11.00 k/uL WBC 7.17 LAB RBC 3.90-5.20 m/uL RBC 4.22 LAB HGB 11.5-15.5 g/dL Hemoglobin 11.5 LAB HCT 36.0-46.0 % Low Hematocrit 35.2 LAB MCV 80.0-100.0 fL MCV 83.4 LAB MCH 26.0-34.0 pG MCH 27.3 LAB MCHC 30.5-36.0 g/dL MCHC 32.7 LAB RDWCV 11.5-15.0 % RDW-CV High 16.6 LAB PLTCT 150-400 k/uL Platelet Count 207 LAB MPV 9.0-12.7 fL MPV 11.0 LAB ANEUT % Neut% 67.2 LAB AANEUT 1.45-7.50 k/uL Abs Neut 4.81 LAB ALYMP % Lymph% 20.2 LAB AALYMP 1.00-4.00 k/uL Abs Lymph 1.45 LAB AMONO % [place]% 8.5 LAB AAMONO <0.87 k/uL Abs [place] 0.61 LAB AEOS % Eosin% 3.3 LAB AAEOS <0.46 k/uL Abs Eosin 0.24 LAB ABASO % Baso% 0.8 LAB AABASO <0.11 k/uL Abs Baso 0.06 LAB AUNRBC 0 /100 WBC NRBCs High 0.1 LAB ABNRBC <0.01 k/uL Absolute High nRBC 0.01 LAB DTYP DTYPE Auto Diff Performed By: #### CBCDIF, PT, PTT, CKCKMB, CMP, MG1, NTBNP, CASSIA #### [facility] [address] [place], [place] [address] PROTIME Collected: 05/09/2018 Status: F Source: ARARAT 2:21 AM [facility] REPOSITORY TYPE CODE TESTS RESULT OUT OF RANGE REFERENCE UNITS LAB PSEC 9.7-13.0 sec High PT Sec 24.5 LAB INR 0.9-1.3 High PT INR 2.5 Result Comment: Vitamin K Antagonist (VKA) Therapeutic Range: INR 2 to 3 (Target INR of 2.5) Note: For patients treated with VKA drugs, such as warfarin, the [place] [employer] 2012 Guideline recommends a therapeutic INR range of 2 to 3 (target INR of 2.5). This recommendation includes high-risk patients with antiphospholipid syndrome with previous arterial or venous thromboembolism, current-generation mechanical or bioprosthetic aortic heart valve replacement. Note: Patients with mechanical aortic valve replacement and additional risk factors for thromboembolic events (atrial fibrillation, previous thromboembolism, LV dysfunction, hypercoagulable conditions) or an older generation mechanical AVR (i.e., ball in-Cage) or any mechanical MVR should have a INR therapeutic range of 2.5 to 3.5 (target INR of 3). Joe BARBER, et al. Chest 2012, 141:7S-47S Catie RA, et al. [facility] 2017, 70: 252-289 Performed By: #### CBCDIF, PT, PTT, CKCKMB, CMP, MG1, NTBNP, CASSIA #### [facility] [address] [place], [place] [address] APTT Collected: 05/09/2018 Status: F Source: AR[place]AT 2:21 AM [facility] REPOSITORY TYPE CODE TESTS RESULT OUT OF RANGE REFERENCE UNITS LAB APTT 23.0-32.4 sec High APTT 42.7 Result Comment: Unfractionated Heparin Therapeutic Ranges: Standard Heparin Nomogram: 53 to 78 seconds (anti-Xa level of 0.3 to 0.7 U/ml) Low Dose/ACS Nomogram: 49 to 67 seconds (anti-Xa level of 0.2 to 0.5 U/ml) Stroke Treatment Nomogram: 49 to 67 seconds (anti-Xa level of 0.2 to 0.5 U/ml) Note: The APTT therapeutic range has been determined for the current lot of laboratory APTT reagent in use throughout the [employer]. Performed By: #### CBCDIF, PT, PTT, CKCKMB, CMP, MG1, NTBNP, CASSIA #### [facility] [address], [place] [address] CK, TOTAL AND CKMB Collected: 05/09/2018 Status: F Source: ARARAT 2:21 AM [facility] REPOSITORY TYPE CODE TESTS RESULT OUT OF REFERENCE UNITS RANGE LAB CK 42-196 U/L 62 CK LAB MB <4.3 ng/mL MB 1.7 LAB CKMBRI 0.0-4.0 % CK CK MB MB % not % reported with CK <100 U/L. Performed By: #### CBCDIF, PT, PTT, CKCKMB, CMP, MG1, NTBNP, CASSIA #### [facility] [address], [place] [id number] COMP METABOLIC PANEL Collected: 05/09/2018 Status: F Source: ARARAT 2:21 AM [facility] REPOSITORY TYPE CODE TESTS RESULT OUT OF REFERENCE UNITS RANGE LAB TP 6.3-8.0 g/dL Protein, Total 7.5 LAB ALB 3.9-4.9 g/dL Albumin 4.5 LAB CA 8.5-10.2 mg/dL Calcium, Total 9.6 LAB TBIL 0.2-1.3 mg/dL Bilirubin, Total 0.3 LAB ALKP 34-123 U/L Alkaline Phosphatase 79 LAB AST 13-35 U/L AST 25 LAB GLU 74-99 mg/dL Glucose 90 Result Comment: The [place] Diabetes Association (ADA) provides guidance for cutoff values for fasting glucose and random glucose. The ADA defines fasting as no caloric intake for at least 8 hours. Fas ting plasma glucose results between 100 to 125 mg/dL indicate increased risk for diabetes (prediabetes). Fasting plasma glucose results greater than or equal to 126 mg/dL meet the criteria for diagnosis of diabetes. In the absence of unequivocal hyperglycemia, results should be confirmed by repeat testing. In a patient with classic symptoms of hyperglycemia or hyperglycemic crisis, random plasma glucose results greater than or equal to 200 mg/dL meet the criteria for diagnosis of diabetes. Reference: Standards of Medical Care in Diabetes 2016, [place] Diabetes Association. Diabetes Care. 2016.39(Suppl 1). LAB BUN 7-21 mg/dL BUN 16 LAB CRET 0.58-0.96 mg/dL Creatinine 0.73 LAB NA 136-144 mmol/L Sodium 138 LAB K 3.7-5.1 mmol/L Potassium 4.2 LAB CL 97-105 mmol/L Chloride 102 LAB CO2 22-30 mmol/L CO2 Low 20 LAB AGAP 9-18 mmol/L Anion Gap 16 LAB ALT 7-38 U/L ALT 29 LAB GFRAA eGFR- Amer. >60 LAB GFRNAA . eGFR-All Other Races >60 Result Comment: eGFR (Estimated GFR) Units of measure: mL/min/1.73 meters squared eGFR is derived from the reexpressed MDRD Study equation using the following parameters: serum creatinine, age, gender and race. The creatinine assay has been calibrated to be traceable to IDMS. An eGFR <60 mL/min/1.73m2 for >3 months is consistent with chronic kidney disease. Refer to KDOQI guidelines for clinical interpretation. In patients with unstable renal function, e.g. those with acute kidney injury, the eGFR may not accurately reflect actual GFR. Performed By: #### CBCDIF, PT, PTT, CKCKMB, CMP, MG1, NTBNP, CASSIA #### [facility] [address], [place] [address] MAGNESIUM Collected: 05/09/2018 Status: F Source: ARARAT 2:21 AM [facility] REPOSITORY TYPE CODE TESTS RESULT OUT OF REFERENCE UNITS RANGE LAB MG 1.7-2.3 mg/dL Magnesium 2.3 Performed By: #### CBCDIF, PT, PTT, CKCKMB, CMP, MG1, NTBNP, CASSIA #### [facility] [address], [place] [address] NT PRO BNP Collected: 05/09/2018 Status: F Source: ARARAT 2:21 AM [facility] REPOSITORY TYPE CODE TESTS RESULT OUT OF REFERENCE UNITS RANGE LAB PBNP <125 pg/mL High PRO B Natr 653 Peptide Performed By: #### CBCDIF, PT, PTT, CKCKMB, CMP, MG1, NTBNP, CASSIA #### [facility] [address], [place] [address] TROPONIN T Collected: 05/09/2018 Status: F Source: ARARAT 2:21 AM [facility] REPOSITORY TYPE CODE TESTS RESULT OUT OF REFERENCE UNITS RANGE LAB TROPT 0.000-0.029 ng/mL Troponin T <0.010 Performed By: #### CBCDIF, PT, PTT, CKCKMB, CMP, MG1, NTBNP, CASSIA #### [facility] [address], [place] [address] EMERGENCY DEPARTMENT Observed: 05/09/2018 Status: F Source: [place] SUMMARY 1:22 AM [facility] REPOSITORY [facility] Medical Records Department [address] [place] [address] Emergency Department Summary 05/08/18 1643 MR#: [id number] Acct: [id number] Name: FLAVIA CASE Rep #: [id number] : 1950 68 From: Matti Ledesma DO PCP: Collin Gamez MD Status: DEP ER - ER Visit Summary Date of Service: 05/08/18 Chief Complaint: Chest pain History of Present Illness: The patient is a 68 F who presents for the evaluation of chest pain. Patient states that today at approximately 1330 hrs. while doing dishes she suddenly got dizzy weak and developed a pressure in her chest. She felt that maybe her blood sugar was low so she took it was 117. She felt her heart fluttering so she took her heart rate and blood pressure and they were lower than normal for her. She states her heart rate typically is in the 50-70 range. Patient has cardiac history of having had a mechanical aortic valve replacement and is on Coumadin. She also has a history of having had a CABG in 1996. She is on amiodarone and also takes 50 of atenolol a day. Also history of COPD and lung cancer. She is recently treated with amoxicillin and a cough medicine through her primary care physician for what sounds like a bronchitis. In March she was admitted several times for chest pain and her last admission underwent cardiac catheterization. She was found to have multivessel coronary artery disease her SHELBY graft to the LAD was patent. Her SVG graft to the LCx was occluded. Her SVG graft to the RCA was occluded. The proximal right coronary artery was moderate to large sized in a long acute marginal branch was unprotected. There is a mild calcification and eccentric 95% stenosis. It was made to stent this and was unsuccessful due to underlying calcification. Because of this it was felt that if despite medical management she was continued to have symptoms that she would need referral to tertiary care facility for high risk pCI. Physical Examination: Afebrile heart rate noted at 47 otherwise vital signs are stable Gen: Well-nourished well-developed obese Head: Normocephalic atraumatic Eyes: Perrl EOMI ENT: TMs clear no rhinorrhea moist mucous membranes Neck: Supple no lymphadenopathy no JVD nontender CVS: Regular rate bradycardic rhythm no murmurs normal S1-S2 Respiratory: No distress clear to auscultation bilaterally chest nontender Abdomen: Soft nontender nondistended normal bowel sounds no masses Back: Nontender Extremity: Nontender 1+ bilateral edema Skin: Normal color no rash Neuro: alert orientated 3 CN II-XII intact normal strength sensation reflexes gait cerebellar Psych: Normal affect normal mood Test Results: EKG showed a sinus bradycardia at a rate of 48. CBC showed a hemoglobin 11.3. Glucose of 186. INR 2.6. Troponin less than 0.015. Chest x-ray showed no acute findings. Emergency Department Course and Treatment: Patient was discussed with Dr. Lei who confirms that the patient should be transferred. Patient has requested [facility]. I have contacted [facility]. Impression: 1. Acute chest pain 2. Coronary artery disease This note was generated with Newsboundation software. It may contain incorrect words, spelling, and punctuation that were not noted in review of the chart prior to signing ED Disposition - Plan for ED Patient: Chief Complaint: Chest Pain Referrals: Collin Gamez MD [Primary Care Provider] - What to do if you have Problems For any increased pain, shortness of breath, bleeding, nausea or vomiting, chest pain, or any unexpected problems, contact your Primary Care Provider. Call [facility] ([phone]) or report to the closest Emergency Room. Call 911 if necessary. 05/09/18 0122 <Electronically signed by Matti Ledesma DO> Date Matti Ledesma DO Cosigner Signature (If Indicated): Date CC: Collin Gamez MD HISTORY PHYSICAL Observed: 05/09/2018 Status: COMPLETED Source: ARARAT 1:06 AM [facility] REPOSITORY HNO ID: [id number] Author: Symone Mo) MD Kimber Service: Cardiovascular Medicine Author Type: Physician Type: HANDP Filed: 05/09/2018 11:09 AM Note Text: [facility] HISTORY AND PHYSICAL Flavia Case [id number] HPI: This is a 68 year old female with a past history notable for: - CAD s/p CABG with recent crescendo angina - hematuria - cystitis due to E.Coli s/p treatment with amoxicillin - HLD - morbid obesity - paroxysmal, symptomatic atrial fibirllation on coumadin - s/p mechanical AVR on coumadin - DM2 - HTN - COPD Ms Case presents from [place] ED with recurrent anginal symptoms. Patient has been in the hospital 4 times during the past month with the same symptoms, most recently admitted at [facility] from 04/18/2018 through 04/25/2018. During that admission she presented with chest pain and dyspnea and ultimately had a stress test. This showed no ischemia but given her recurrent symptoms, the patient was taken for cath on 04/20. This showed a 100% SVG-RCA, 100% SVG-LCx and a patent SHELBY- lAD. The AV looked good during the catheterization. She was sent for PCI but despite multiple dilations, no stent was able to pass due to excessive calcifications and the procedure was aborted. Also during this admission, she had a supratherapeutic INR and hematuria. She ultimately did ok with heparin and urology felt this was due to an E.coli UTI. Complicating her entire presentation is her paroxysmal atrial fibrillation which is highly symptomatic. She reports feeling her heart racing when she goes into atrial fibrillation. This also leads to dyspnea. When she returns to normal rhythm it sounds like she is having pauses which do cause presyncopal symptoms. She denies arun syncope. She tells me that the presyncopal symptoms do not come in the setting of exertion or while she is having chest pain. At the time of my evaluation, she is chest pain free and in normal rhythm. HISTORY PAST MEDICAL HISTORY: PAST MEDICAL HISTORY Diagnosis Date - Acute gastritis without mention of hemorrhage - Acute peptic ulcer - Anxiety - ASHD (arteriosclerotic heart disease) Dr. Corado - Benign neoplasm of colon - Carpal tunnel syndrome - COPD (chronic obstructive pulmonary disease) (HCC) - Corns and callosities 02/11/2010 - Dermatophytosis of nail 02/11/2010 - Diabetes mellitus (HCC) - Diaphragmatic hernia without mention of obstruction or gangrene - Diastolic CHF (HCC) - Eczema - External hemorrhoids without mention of complication - Fatty liver - Hepatosplenomegaly - Hirsutism 10/21/2010 - Hyperlipidemia - Hypertension - Internal hemorrhoids without mention of complication - Lung cancer (HCC) 09/[address] Lizarraga. Stage I squamous cell s/p radiation - Multinodular thyroid benign - Obesity, unspecified - Overactive bladder Dr. Recio - Postsurgical aortocoronary bypass status triple bypass, aortic valve replacement - Pulmonary hypertension (HCC) - S/P AVR - Seasonal allergies - Squamous cell carcinoma neck, back, leg, left lung - Toe deformity 02/11/2010 PAST SURGICAL HISTORY: PAST SURGICAL HISTORY Procedure Laterality Date - CABG, ARTERY-VEIN, THREE 1997 CABG, three grafts, replace heart valve - DELIVERY ONLY x3 - COLONOSCOP W/ OR W/O BRS SPEC 01/02/2001, 09/21/2005 Colonoscopy - COLONOSCOP W/ OR W/O BRSH SPEC 04/26/06 - EGD W/O OR W/BRUSH/WASH 04/26/06 - EGD W/O OR W/BRUSH/WASH 01/12/1984 EGD with biopsy of antral ulcer - LAPAROSCOPIC CHOLEYCYSTECTOMY 09-06-12 - PAST SURGICAL HISTORY OF skin cancer from knee / benign spot from back - PAST SURGICAL HISTORY OF cataract removal bilateral - TOTAL ABDOM HYSTERECTOMY 1978 for endometriosis, ovaries spared FAMILY HISTORY: FAMILY HISTORY Problem Relation Age of Onset - Heart Father - Heart Mother - Thyroid Mother Goiter - Diabetes Maternal Grandfather - other (stomach cancer) Sister Adenocarcinoma - Heart Daughter - Colon Cancer Sister 52 SOCIAL HISTORY: Social History Substance Use Topics - Smoking status: Former Smoker Packs/day: 2.00 Years: 36.00 Types: Cigarettes Start date: 1962 Quit date: 06/28/1995 - Smokeless tobacco: Never Used Comment: Both parents smoked in childhood home. Ex-spouse of 38 years also a smoker. - Alcohol use No MEDICATIONS: Prior to Admission Medications: warfarin (COUMADIN) 6 mg tablet Take 3 mg Tues, Thurs and 6 mg all other days. atenolol (TENORMIN) 50 mg tablet Take 0.5 tablets by mouth once daily. amLODIPine (NORVASC) 10 mg tablet Take 1 tablet by mouth once daily. loratadine (CLARITIN) 10 mg tablet Take 1 tablet by mouth once daily. busPIRone (BUSPAR) 5 mg tablet Take 1 tablet by mouth three times daily. amiodarone (PACERONE) 200 mg tablet Take 1 tablet by mouth once daily. potassium chloride ER (K-DUR, KLOR-CON) 20 mEq tablet Take 1 tablet by mouth once daily. magnesium oxide (MAG-OX) 400 mg (241.3 mg magnesium) tablet Take 1 tablet by mouth once daily. meclizine (ANTIVERT) 12.5 mg tab Take 1 tablet by mouth three times daily as needed (dizziness). nystatin-triamcinolone (MYCOLOG II) cream Apply 1 application to affected area twice daily as needed. Apply to affected area for 2 weeks linagliptin (TRADJENTA) 5 mg tab Take 1 tablet by mouth once daily. ALPRAZolam (XANAX) 0.25 mg tablet Take 1 tablet by mouth every 6 hours as needed for Anxiety for up to 20 doses. amoxicillin (POLYMOX, AMOXIL) 500 mg capsule Take 1 capsule by mouth three times daily for 30 doses. ranolazine ER (RANEXA) 500 mg 12 hr tablet Take 1 tablet by mouth twice daily. COMPOUNDED PRESCRIPTION HOME BP MONITOR, DX: HTN LABILE Dx: Hypertension goal BP (blood pressure) < 140/90 ICD-10 I10 COMPOUNDED PRESCRIPTION Home scale for daily weight check. Dx: CHF-diastolic >Nebulizer For Home Nebulizer for home use. Diagnosis: COPD ICD-10 J42 guaiFENesin (MUCINEX) 600 mg 12 hr tablet Take 2 tablets by mouth twice daily. ferrous sulfate 325 mg (65 mg iron) tablet take 1 tablet by mouth twice a day with meals isosorbide mononitrate ER (IMDUR) 30 mg 24 hr tablet Take 4 tablets by mouth once daily. atenolol (TENORMIN) 100 mg tablet Take 0.5 tablets by mouth once daily. warfarin (COUMADIN) 6 mg tablet 3 mg Tues/th and 6 mg all other days or as directed amLODIPine (NORVASC) 5 mg tablet Take 2 tablets by mouth once daily. aspirin, enteric coated (ASPIRIN, ENTERIC COATED) 81 mg EC tablet Take 1 tablet by mouth once daily. lansoprazole (PREVACID) 30 mg capsule take 1 capsule by mouth every morning AT 6 AM and every evening AT 4 PM before meals losartan (COZAAR) 100 mg tablet take 1 tablet by mouth once daily nitroglycerin sublingual (NITROSTAT) 0.4 mg SL tablet Dissolve 1 tablet under the tongue as needed. DISSOLVE ON TONGUE FOR CHEST PAIN. IF NO PAIN RELIEF, CALL 911 atorvastatin (LIPITOR) 20 mg tablet take 1 tablet by mouth once daily metFORMIN ER (GLUCOPHAGE XR) 500 mg 24 hr tablet take 2 tablets by mouth twice a day oxybutynin ER (DITROPAN XL) 10 mg 24 hr tablet take 1 tablet by mouth once daily mupirocin (BACTROBAN) 2 % ointment Apply 1 application to affected area three times daily. Location: Inside nose albuterol HFA (PROAIR HFA) 90 mcg/actuation inhaler Inhale 2 Puffs as instructed every 4 hours as needed. polyethylene glycol 3350 (MIRALAX, GLYCOLAX) 17 gram/dose powder Take 17 g by mouth once daily. dissolve in water. glipiZIDE XL (GLUCOTROL XL) 10 mg 24 hr tablet Take 1 tablet by mouth once daily. diclofenac sodium (VOLTAREN) 1 % topical gel Apply 2 g to affected area twice daily as needed. Both heels Leg Brace (KNEE SUPPORT BRACE) misc 1 Each continuous. DX: S89.92XA furosemide (LASIX) 20 mg tablet take 1 tablet by mouth once daily Leg Brace (KNEE SUPPORT BRACE) misc 1 Each continuous. nystatin (MYCOSTATIN) cream Apply 1 application to affected area twice daily. Groin as needed traZODone (DESYREL) 50 mg tablet Take 1 tablet by mouth daily at bedtime. albuterol (PROVENTIL) 5 mg/mL nebu Inhale 0.5 mL as instructed one time only for 1 dose. 1 DOSE NOW - BACK OFFICE. PLACE 0.5 ML PER DROPPER AND 2.5 ML OF NORMAL SALINE INTO RESERVOIR. COMPOUNDED PRESCRIPTION NEBULIZER SUPPLIES, MEDICATION CUP, TUBING FOR USE WITH NEBULIZER MACHINE DX J40.0 Current hospital medications: busPIRone 5 mg tab(s) (BUSPAR) 5 mg ORAL TID ranolazine ER 500 mg tab(s) (RANEXA) 500 mg ORAL BID amiodarone 200 mg tab(s) (PACERONE) 200 mg ORAL DAILY loratadine 10 mg tab(s) (CLARITIN) 10 mg ORAL DAILY [START ON 05/10/2018] atorvastatin 20 mg tab(s) (LIPITOR) 20 mg ORAL DAILY losartan 100 mg tab(s) (COZAAR) 100 mg ORAL DAILY carvedilol 3.125 mg tab(s) (COREG) 3.125 mg ORAL BID w MEALS amLODIPine 10 mg tab(s) (NORVASC) 10 mg ORAL DAILY aspirin, enteric coated 81 mg tab(s) 81 mg ORAL DAILY isosorbide mononitrate ER 120 mg tab(s) (IMDUR) 120 mg ORAL DAILY dextrose 40 % 15 g 15 g ORAL PRN glucagon 1 mg injection (GLUCAGEN) 1 mg INTRAMUSCULAR PRN dextrose 50 % 12.5 g injection 12.5 g INTRAVENOUS PRN acetaminophen 650 mg tab(s) (TYLENOL) 650 mg ORAL q 4 H PRN docusate sodium 100 mg cap(s) (COLACE) 100 mg ORAL BID PRN insulin lispro injection (rapid acting) (HumaLOG) SUBCUTANEOUS w MEALS insulin lispro injection (rapid acting) (HumaLOG) SUBCUTANEOUS AT BEDTIME polyethylene glycol 3350 17 g packet (MIRALAX, GLYCOLAX) 17 g ORAL DAILY PRN ALLERGIES: ALLERGIES Allergen Reactions - Advair Diskus [Flut* Other: See Comments CHEST PAIN - Asa [Salicylates] Unknown patient taking coumadin - on low dose ASA for valve dysfunction - Cephalexin Stomach pains-pt. ended up in hospital - Ekg Pads [Other] adhesive - Lisinopril Cough - Nexium [Esomeprazol* Other: See Comments Ineffective - Omeprazole Other: See Comments Ineffective - Tudorza Pressair [A* GI Upset - Ventolin [Albuterol* Other: See Comments Severe shaking, palpitations - Ventolin [Albuterol] Other: See Comments Ventolin MDI does not work, Pro Air works best COMPLETE REVIEW OF SYSTEMS: See HPI: 10 point ROS reviewed and otherwise negative. PHYSICAL EXAM: BP 134/63 Pulse 72 Temp 36.7 ?C (98.1 ?F) (Oral) Resp 18 SpO2 94% GEN: well appearing, NAD, AANDOx3 HEENT: OP clear, MMM, sclera anicteric, no conj pallor Neck: JVP not appreciated due to habitus. CV: RRR. Warm and nonedematous. Mechanical AV sounds crisp. II/ crescendo-decrescendo systolic murmur with S2 still appreciable. Lungs: No IWOB. Abd: SNTND, BS+ Ext. WWP DATA: Laboratory: Studies 03/27/2018 TTE (OSH) LVEF 60. Mod LVH. LA mild enlargement. 1+MR. 1+TR. AV peak 69 with mean 37. 05/24/2017 TTE ([facility] study) AV pk/mn 80/39. CONCLUSIONS: - Technically difficult exam due to body habitus. - Exam indication: Routine surveillance of prosthetic valve (>3yrs) - The left ventricle is normal in size. There is moderate concentric left ventricular hypertrophy. Left ventricular systolic function is normal. EF = 62 ? 5% (2D biplane) Indeterminate left ventricular diastolic dysfunction. - The right ventricle is normal in size. Right ventricular systolic function is low normal. - Mechanical prosthetic aortic valve (size #21). There is trivial aortic valve regurgitation. The peak gradient is 80 mmHg, the mean gradient is 39 mmHg and the dimensionless valve index is 0.30. - Exam was compared with the prior echocardiographic exam performed on 05/25/2016, no significant change. Since 2010, there has been progressive increase ?in wall thickness and now patient has moderate LVH. 03/2018 [facility] LM distal 50% LAD - pLAD 85% eccentric, mLAD fills via SHELBY, D1 fills via L-L collaterals LCx- pLCx 25-50% stenosis RCA - pRCA with 95%, mRCA with 50%, dRCA occluded and fills via L-R collaterals SHELBY-LAD patent SVG-LCx occluded SVG-RCA occluded ASSESSMENT AND PLAN RECOMMENDATIONS: Ms Case is a 68yo woman with hx of AVR(mechanical)/CABG who presents with recurrent chest pain. Differential at this point for her chest pain is coronary artery disease (recent [facility] with RCA calcified stenosis), prosthetic AV stenosis. Her symptoms are made worse by her anxiety. Also concerning for her is her presyncopal episodes which are concerning for post-conversion pauses although less likely could be related to prosthetic valve dysfunction. Given the technical issues with stenting the RCA, I think it would be useful to document ischemia in this territory before repeating another revascularization attempt. #Chest Pain Admit to tele. - cycle enzymes - PET rest/stress/viability - need to obtain OSH [facility] films - cont coreg, amlodipine, ranolazine, losartan, aspirin #s/p Mechanical AVR Stable gradients for the past 8 years. - repeat surface to confirm valve integrity but do not think this is most likely source of her pain or symptoms #DM2 - POCT with SSI #AF - cont coumadin/amio - coreg #Hematura Appears to have resolved and was related to UTI Case to be discussed with staff. Edy Samuel MD Fellow, Cardiovascular Disease Pager: [phone] This note was written by the overnight or covering fellow. Please page the primary service indicated on the top of this note Monday-Monday 8am-5pm and the Cardiology on-call pager (see below) during evenings and on weekends. On-Call Cardiology Pagers: J5 and 6: pager - [phone] J7 and 8: pager - [phone] [facility] STAFF PHYSICIAN NOTE OF PERSONAL INVOLVEMENT IN CARE IMPRESSION: History reviewed with patient. Likely mechanical aortic valve progressive stenosis with mean transprosthetic gradients approaching 40 mmHg. Intermittent rapid AF and exertional symptoms. Known SVG x 3 failure, patent SHELBY. LV f(x) normal. Failed attempt at OSH to intervene percutaneously on skull valley coronaries. Was not able to personally view these PLAN: PETRA, nazanin OSH cath films, agree with PET stress to assess residual ischemia burden. Looking like probable re-eval for re-do AVR +/- CABG. Increase beta-yi dose, prn lasix I have reviewed the documentation obtained and documented by the Fellow and have reviewed and updated the problem list as appropriate. I have personally performed a face to face assessment of the patient and have personally participated in the cabral components. I have discussed the case and management of the patient's care. Counseling (Inpatient): I personally spent 45 total minutes involved in the care of this patient. Greater than 50% of the time was spent counseling and/or coordinating care for the patient, the nature of which is noted above. Symone Song MD, PhD, FRACP Clinical Staff [facility] Department of Cardiovascular Medicine Heart and Vascular [facility] Desk [place] [id number] Office STAFF PHYSICIAN: Symone Song DATE OF SERVICE: May 09, 2018 TIME OF SERVICE: 11:04 AM CNCO Observed: 05/09/2018 Status: COMPLETED Source: ARARAT 12:00 AM [facility] REPOSITORY Letter Text Symone Song MD, PhD [facility] [address] [place] [address] /[place] [address] Office: [phone] URGENT REQUEST FOR CONTINUITY OF CARE May 09, 2018 [facility] Medical Records - Jessica Alejandro REGARDING: NAME: FLAVIA CASE : 1950 CLINIC NO: [id number] [place] DATE OF HEART CATH: 04/20/2018 [employer] will be picking up CD copy of patients heart cath that was completed at [facility] on 04/20/2018 today. Thank you for your assistance. Sincerely yours, Symone Song MD CNPN Observed: 05/09/2018 Status: COMPLETED Source: ARARAT 12:00 AM [facility] REPOSITORY Telephone (CATHMN) FLAVIA CASE ([id number]) 1950 F Date Time Provider Department 05/09/18 SYMONE SONG) CATHMN During your visit today, we recorded the following information about you: Pareshbrandon Rodeo [facility] 05/09/2018 2:13 PM Signed Office contacted [facility] this morning for a copy patients heart cath from 04/20/18 on a CD. Office has been informed that the CD is ready to be picked up. Office contacted [employer] to pick up attendant CD from [place] and bring to J2-3. [facility] 05/09/2018 5:38 PM Signed CD of patients heart cath arrived and was uploaded into [employer]. Allergies As of Date: 05/09/2018 Noted Allergy Reaction ADVAIR DISKUS (FLUTICASONE-SALMET*05/16/2011 14 - Other: See Comments Comments: CHEST PAIN ASA (SALICYLATES) 05/10/2005 16 - Unknown Comments: patient taking coumadin - on low dose ASA for valve dysfunction CEPHALEXIN 02/21/2008 Comments: Stomach pains-pt. ended up in hospital EKG PADS [Other] 05/10/2005 Comments: adhesive LISINOPRIL 07/03/2014 3 - Cough NEXIUM (ESOMEPRAZOLE MAGNESIUM) 01/26/2016 14 - Other: See Comments Comments: Ineffective OMEPRAZOLE 01/26/2016 14 - Other: See Comments Comments: Ineffective TUDORZA PRESSAIR (ACLIDINIUM BROM*01/26/2016 8 - GI Upset VENTOLIN (ALBUTEROL SULFATE) 10/24/2017 14 - Other: See Comments Comments: Severe shaking, palpitations VENTOLIN (ALBUTEROL) 01/26/2016 14 - Other: See Comments Comments: Ventolin MDI does not work, Pro Air works best Date Reviewed: 05/09/2018 Reviewed by: Jessie Green) KOKO Parker - Fully Assessed Reason for Visit: CD of heart cath [Other] Prescriptions as of 05/09/2018 Sig: FUROSEMIDE 20 MG TABLET Take 1 tablet by mouth once d* ISOSORBIDE MONONITRATE ER 120* Take 120 mg by mouth once aminah* MAGNESIUM OXIDE 400 MG CAPSULE Take 1 capsule by mouth w FRANCHESCA* ATENOLOL 50 MG TABLET Take 1 tablet by mouth once d* WARFARIN 6 MG TABLET Take 3 mg , and 6 m* AMLODIPINE 10 MG TABLET Take 1 tablet by mouth once d* LORATADINE 10 MG TABLET Take 1 tablet by mouth once d* BUSPIRONE 5 MG TABLET Take 1 tablet by mouth three * AMIODARONE 200 MG TABLET Take 1 tablet by mouth once d* POTASSIUM CHLORIDE ER 20 MEQ * Take 1 tablet by mouth once d* MECLIZINE 12.5 MG TABLET Take 1 tablet by mouth three * NYSTATIN-TRIAMCINOLONE 100,00* Apply 1 application to affect* LINAGLIPTIN 5 MG TABLET Take 1 tablet by mouth once d* ALPRAZOLAM 0.25 MG TABLET Take 1 tablet by mouth every * RANOLAZINE ER 500 MG TABLET,E* Take 1 tablet by mouth twice * COMPOUNDED PRESCRIPTION HOME BP MONITOR, DX: HTN LABI* COMPOUNDED PRESCRIPTION Home scale for daily weight c* COMPOUNDED PRESCRIPTION Nebulizer for home use. Diagn* GUAIFENESIN ER 600 MG TABLET,* Take 2 tablets by mouth twice* FERROUS SULFATE 325 MG (65 MG* take 1 tablet by mouth twice * ASPIRIN 81 MG TABLET,DELAYED * Take 1 tablet by mouth once d* LANSOPRAZOLE 30 MG CAPSULE,DE* take 1 capsule by mouth every* LOSARTAN 100 MG TABLET take 1 tablet by mouth once d* NITROGLYCERIN 0.4 MG SUBLINGU* Dissolve 1 tablet under the t* ATORVASTATIN 20 MG TABLET take 1 tablet by mouth once d* METFORMIN ER 500 MG TABLET,EX* take 2 tablets by mouth twice* OXYBUTYNIN CHLORIDE ER 10 MG * take 1 tablet by mouth once d* MUPIROCIN 2 % TOPICAL OINTMENT Apply 1 application to affect* ALBUTEROL SULFATE HFA 90 MCG/* Inhale 2 Puffs as instructed * POLYETHYLENE GLYCOL 3350 17 G* Take 17 g by mouth once daily* GLIPIZIDE ER 10 MG TABLET, EX* Take 1 tablet by mouth once d* DICLOFENAC 1 % TOPICAL GEL Apply 2 g to affected area tw* LEG BRACE 1 Each continuous. DX: S89.92* LEG BRACE 1 Each continuous. COMPOUNDED PRESCRIPTION NEBULIZER SUPPLIES, MEDICATIO* Problem List As Of Date 05/09/2018 Noted Resolved AORTOCORONARY BYPASS STATUS [Z95.1] More... OVERWEIGHT [E66.9] 05/08/2015 ASHD (arteriosclerotic heart disease) [I25.10] INVALID FOR* More... DIABETES MELLITUS TYPE II-UNCOMPL [E11.9] INVALID FOR*02/12/2014 More... HYPERLIPIDEMIA NEC/NOS [E78.5] INVALID FOR*07/24/2015 More... Hematuria [599.7] INVALID FOR*07/24/2015 More... History of mechanical aortic valve replacement *INVALID FOR* More... Abdominal pain, unspecified site [R10.9] INVALID FOR*05/08/2015 Acute gastritis without mention of hemorrhage [*INVALID FOR*01/26/2016 Esophageal reflux [K21.9] INVALID FOR* More... Headache(784.0) [R51] INVALID FOR*01/26/2016 Bronchitis Recurrent [J40] INVALID FOR*03/21/2017 Hallux valgus (acquired) [M20.10] INVALID FOR*07/24/2015 Pain in limb [M79.609] INVALID FOR*01/26/2016 Goiter [E04.9] INVALID FOR* S/P AVR [Z95.2] INVALID FOR*01/26/2016 Multinodular thyroid [E04.2] INVALID FOR* Emphysema of lung (HCC) [J43.9] More... Hyperlipemia [E78.5] INVALID FOR* More... DM type 2 (diabetes mellitus, type 2) (HCC) [E1*INVALID FOR*05/08/2015 Hematuria [R31.9] INVALID FOR*10/23/2015 Smoking [F17.200] INVALID FOR*10/23/2015 Chronic anticoagulation [Z79.01] INVALID FOR* OAB (overactive bladder) [N32.81] INVALID FOR* More... Frequency of urination [R35.0] INVALID FOR*01/26/2016 Hypertension goal BP (blood pressure) < 140/90 *INVALID FOR* More... Diabetes mellitus type 2, uncontrolled, without*INVALID FOR*03/21/2017 More... Nicole rash of groin [B37.89] INVALID FOR* More... Stress at home [F43.9] INVALID FOR* Insomnia [G47.00] INVALID FOR* Financial difficulties [Z59.8] INVALID FOR* Obesity, Class III, BMI >= 40 (morbid obesity) *INVALID FOR* More... Hemoptysis [R04.2] INVALID FOR* More... 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 Eczema [L30.9] Diabetes mellitus (HCC) [E11.9] More... COPD (chronic obstructive pulmonary disease) (H* More... Diastolic CHF (HCC) [I50.30] Angina at rest (HCC) [I20.8] INVALID FOR*05/09/2018 Coronary artery disease involving [place] man*INVALID FOR* More... PAF (paroxysmal atrial fibrillation) (HCC) [I48*INVALID FOR* More... Acute on chronic diastolic heart failure (HCC) *INVALID FOR* More... Nonrheumatic aortic valve stenosis [I35.0] INVALID FOR* More... Encounter Status:Closed by NONI MARTE on 05/09/18 TROPONIN-I Collected: 05/08/2018 Status: F Source: HELENA 6:00 PM [facility] REPOSITORY TYPE CODE TESTS RESULT OUT OF RANGE REFERENCE UNITS LAB [id number] <0.045 ng/mL Normal < 0.015 TROPONIN-I Result Comment: TROPONIN-I EXPECTED VALUES <0.045 Negative 0.045 - 0.590 Consistent with Cardiac Damage > OR = 0.600 Critical Value Not every elevated troponin is indicative of FL. These values should be used with clinical judgement in examining the patient's clinical picture for diagnosis. To establish a diagnosis of FL versus myocardial injury, there must be a demonstrated rise and/or fall in the troponin values, in addition to ischemic symptoms, EKG changes, new regional wall motion abnormality, and/or angiographical evidence. PLEASE NOTE: REFERENCE RANGES EDITED 17 Performed By: #### L501.4010 #### [facility] [place], [address] CHEST 1 VIEW Observed: 05/08/2018 Status: F Source: [place] (PORTABLE) 3:07 PM [facility] REPOSITORY [facility] Imaging Services [address] [place] [address] Chest 1 View (Portable) MR#: [id number] Acct: [id number] Name: FLAVIA CASE Rep #: [id number] : 1950 F 68 From: Krishan Booker MD PCP: Collin Gamez MD Status: REG ER Study: Chest 1 View (Portable) Date of Exam: 05/08/18 Exam# [id number] Ordering Dr: Matti Ledesma DO STUDY: X-RAY CHEST REASON FOR EXAM: Female, 68 years old. Chest pain and chest pressure. TECHNIQUE: Single AP portable view of the chest. COMPARISON: Comparison is made with prior study dated April 18, 2018. FINDINGS: EKG electrodes are seen. Findings suggestive of a minimal degree of vascular congestion. There is no demonstrated pleural abnormality. Sternal cerclage wires and vascular clips are present from a prior sternotomy and coronary artery bypass graft procedure (CABG). Cardiomegaly. Normal mediastinum and janice. Normal visualized pulmonary arteries. There is atherosclerotic calcification of the aortic arch with tortuosity. Normal visualized thoracic spine. Normal visualized ribs, clavicles, and shoulders. There is no demonstrated abnormality of the visualized soft tissue structures of the upper abdomen. RAD/Chest 1 View (Portable) IMPRESSION: Findings suggestive of a mild degree of vascular congestion. Electronically Signed: Krishan Booker MD at 15:45 EST Tel [phone], Service support , CC: Collin Gamez MD; Matti Ledesma DO Tax Associate Attorney: Signed BASIC METABOLIC Collected: 05/08/2018 Status: F Source: [place] PROFILE (BMP) 2:45 PM [facility] REPOSITORY TYPE CODE TESTS RESULT OUT OF RANGE REFERENCE UNITS LAB L501.0100 74-106 mg/dL High GLU 186 Result Comment: Fasting Glucose result greater than or equal to 126 mg/dL suggests DIABETES MELLITUS per A.D.A. criteria. Please note revised GLUCOSE reference range effective 2017. LAB L501.1000 7-18 mg/dL Normal BUN 14 LAB L501.1100 0.55-1.02 mg/dL Normal CREAT,SERUM 0.80 Result Comment: The validity of the calculated GFR AND GFRAA in patients over 70 years has not been determined. Clinical correlation is essential. LAB L501.1110 >60 mL/min Normal EST GFR 76 Result Comment: Non- GFR Calc LAB L501.1115 >60 mL/min Normal EST GFR - AA 91 Result Comment: GFR Calc LAB L501.1255 ml/min Normal Estimated CRCL 54.90 LAB L501.1300 10-20 RATIO Normal BUN/CRE 17.5 LAB L501.2200 8.5-10 mg/dL Low .1 CA 8.3 LAB L501.5300 136-14 mmol/L Normal 5 NA 138 LAB L501.5600 3.5-5. mmol/L Normal 1 K 4.3 LAB L501.5900 98-107 mmol/L Normal CL 107 LAB L501.6100 21.0-3 mmol/L Normal 2.0 CO2 22.0 LAB L501.6200 5-15 Normal GAP 9 Performed By: #### L500.2500, L501.4010 #### [facility] [address] [place], [address] TROPONIN-I Collected: 05/08/2018 Status: F Source: [place] 2:45 PM [facility] REPOSITORY TYPE CODE TESTS RESULT OUT OF RANGE REFERENCE UNITS LAB L501.4010 <0.045 ng/mL Normal < 0.015 TROPONIN-I Result Comment: TROPONIN-I EXPECTED VALUES <0.045 Negative 0.045 - 0.590 Consistent with Cardiac Damage > OR = 0.600 Critical Value Not every elevated troponin is indicative of FL. These values should be used with clinical judgement in examining the patient's clinical picture for diagnosis. To establish a diagnosis of FL versus myocardial injury, there must be a demonstrated rise and/or fall in the troponin values, in addition to ischemic symptoms, EKG changes, new regional wall motion abnormality, and/or angiographical evidence. PLEASE NOTE: REFERENCE RANGES EDITED 17 Performed By: #### L500.2500, L501.4010 #### [facility] [place], [address] CBC W/DIFF, AUTOMATED Collected: 05/08/2018 Status: F Source: [place] 2:45 PM [facility] REPOSITORY TYPE CODE TESTS RESULT OUT OF RANGE REFERENCE UNITS LAB L100.1000 4.4-11.0 K/mm3 Normal WBC 6.5 LAB L100.1200 4.2-5.4 M/mm3 Normal RBC 4.20 LAB L100.1300 12.0-15.0 g/dl Low HGB 11.3 LAB L100.1400 37-47 % Low HCT 35.1 LAB L100.1500 81-99 fL Normal MCV 83.6 LAB L100.1600 27.0-32.0 pg Low MCH 26.9 LAB L100.1700 32-36 g/gl Normal MCHC 32.2 LAB L100.1810 11.6-14.6 % High RDW CV 16.9 LAB L100.1820 35.1-43.9 fl High RDW SD 50.1 LAB L100.1900 150-450 K/mm3 Normal PLT 196 LAB L100.2000 6.2-12.0 fl Normal MPV 11.2 LAB L100.2100 47-70 % High NEUT% 71.5 LAB L100.2200 19-41 % Low LY% 18.4 LAB L100.2300 0-10 % Normal MONO% 5.9 LAB L100.2400 0-5 % Normal EO% 3.1 LAB L100.2500 0-1 % Normal BASO% 0.6 LAB L100.2550 0.0-0.9 % Normal IM GRAN % 0.500 Result Comment: IG% - Immature Granulocytes (promyelocytes, myelocytes and metamyelocytes) > 1% indicates that a LEFT SHIFT is Present. LAB L100.2620 2.0-7.7 X10 3/uL Normal Absolute Neut 4.6 LAB L100.2720 0.83-4.51 X10 3/ul Normal Absolute Lymph 1.19 Performed By: #### L100.0100 #### [facility] [address] [place], [address] PROTHROMBIN TIME W/INR Collected: 05/08/2018 Status: F Source: [place] 2:45 PM [facility] REPOSITORY TYPE CODE TESTS RESULT OUT OF RANGE REFERENCE UNITS LAB L300.4150 11.7-14.9 SECONDS High PROTIME 28.3 LAB L300.4200 Normal INR 2.6 Performed By: #### L300.3900, L300.4310 #### [facility] [address] [place], [address] PARTIAL THROMBOPLAST Collected: 05/08/2018 Status: F Source: [place] TIME 2:45 PM [facility] REPOSITORY TYPE CODE TESTS RESULT OUT OF REFERENCE UNITS RANGE LAB L300.4310 24.1-36.2 Seconds High PTT 48.8 Performed By: #### L300.3900, L300.4310 #### [facility] [address] [place], [address] HOSP Observed: 05/08/2018 Status: COMPLETED Source: [place] 12:00 AM [facility] REPOSITORY Patient:Flavia Case MRN: <[id number]> Height:5' 3(1.6 m) Weight:222 lb 4.8 oz (100.835 kg) Outpatient Medications as of 05/14/18: iv contrast (will be provided with radiology test) furosemide (LASIX) 20 mg tablet isosorbide mononitrate ER (IMDUR) 120 mg 24 hr tablet magnesium oxide 400 mg cap atenolol (TENORMIN) 50 mg tablet warfarin (COUMADIN) 6 mg tablet amLODIPine (NORVASC) 10 mg tablet loratadine (CLARITIN) 10 mg tablet busPIRone (BUSPAR) 5 mg tablet amiodarone (PACERONE) 200 mg tablet potassium chloride ER (K-DUR, KLOR-CON) 20 mEq tablet meclizine (ANTIVERT) 12.5 mg tab nystatin-triamcinolone (MYCOLOG II) cream linagliptin (TRADJENTA) 5 mg tab ALPRAZolam (XANAX) 0.25 mg tablet ranolazine ER (RANEXA) 500 mg 12 hr tablet COMPOUNDED PRESCRIPTION COMPOUNDED PRESCRIPTION >Nebulizer For Home guaiFENesin (MUCINEX) 600 mg 12 hr tablet ferrous sulfate 325 mg (65 mg iron) tablet aspirin, enteric coated (ASPIRIN, ENTERIC COATED) 81 mg EC tablet lansoprazole (PREVACID) 30 mg capsule losartan (COZAAR) 100 mg tablet nitroglycerin sublingual (NITROSTAT) 0.4 mg SL tablet atorvastatin (LIPITOR) 20 mg tablet metFORMIN ER (GLUCOPHAGE XR) 500 mg 24 hr tablet oxybutynin ER (DITROPAN XL) 10 mg 24 hr tablet mupirocin (BACTROBAN) 2 % ointment albuterol HFA (PROAIR HFA) 90 mcg/actuation inhaler polyethylene glycol 3350 (MIRALAX, GLYCOLAX) 17 gram/dose powder glipiZIDE XL (GLUCOTROL XL) 10 mg 24 hr tablet diclofenac sodium (VOLTAREN) 1 % topical gel Leg Brace (KNEE SUPPORT BRACE) [facility] Leg Brace (KNEE SUPPORT BRACE) [facility] COMPOUNDED PRESCRIPTION Admission/Clinic Administered Medications as of 05/14/18: isosorbide dinitrate 30 mg tab(s) (ISORDIL, SORBITRATE) docusate sodium 100 mg cap(s) (COLACE) predniSONE 40 mg tab(s) (DELTASONE) nitroglycerin sublingual 0.4 mg tab(s) (NITROQUICK) heparin iv infusion (STANDARD NOMOGRAM) 25,000 units in NaCl 0.45% 250 mL PREMIX heparin RATE CHANGE bolus 1,000-10,000 Units for subtherapeutic aptt results furosemide 20 mg tab(s) (LASIX) ipratropium 0.02 % 0.5 mg (ATROVENT) calcium carbonate 750 mg chewable tab(s) (TUMS) busPIRone 5 mg tab(s) (BUSPAR) ranolazine ER 500 mg tab(s) (RANEXA) loratadine 10 mg tab(s) (CLARITIN) losartan 100 mg tab(s) (COZAAR) amLODIPine 10 mg tab(s) (NORVASC) aspirin, enteric coated 81 mg tab(s) dextrose 40 % 15 g glucagon 1 mg injection (GLUCAGEN) dextrose 50 % 12.5 g injection acetaminophen 650 mg tab(s) (TYLENOL) docusate sodium 100 mg cap(s) (COLACE) insulin lispro injection (rapid acting) (HumaLOG) insulin lispro injection (rapid acting) (HumaLOG) polyethylene glycol 3350 17 g packet (MIRALAX, GLYCOLAX) atorvastatin 80 mg tab(s) (LIPITOR) guaiFENesin 1,200 mg ER tab(s) (MUCINEX) sodium chloride 0.65 % 2 [place] (AYR, OCEAN) lactobacillus rhamnosus 10 billion cell (CULTURELLE) capsule Problem List: Postsurgical aortocoronary bypass status [Z95.1] ASHD (arteriosclerotic heart disease) [I25.10] History of mechanical aortic valve replacement [Z95.2] Esophageal reflux [K21.9] Goiter [E04.9] Multinodular thyroid [E04.2] Emphysema of lung (HCC) [J43.9] Hyperlipemia [E78.5] Chronic anticoagulation [Z79.01] OAB (overactive bladder) [N32.81] Hypertension goal BP (blood pressure) < 140/90 [I10] Nicole rash of groin [B37.89] Stress at home [F43.9] Insomnia [G47.00] Financial difficulties [Z59.8] Obesity, Class III, BMI >= 40 (morbid obesity) E66.01 [E66.01] Hemoptysis [R04.2] 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) [I50.30] Coronary artery disease involving [place] coronary artery of [place] heart with unstable angina pectoris (HCC) [I25.110] PAF (paroxysmal atrial fibrillation) ([facility]) [I48.0] Acute on chronic diastolic heart failure (HCC) [I50.33] Nonrheumatic aortic valve stenosis [I35.0] Preop testing [Z01.818] Allergies: Advair Diskus [Fluticasone-Salmeterol] Asa [Salicylates] Cephalexin EKG PADS [Other] Lisinopril Nexium [Esomeprazole Magnesium] Omeprazole Tudorza Pressair [Aclidinium Gypsum] Ventolin [Albuterol Sulfate] Ventolin [Albuterol] Date Verified: 05/13/18 Lab Values Lab Value Units Date High Low POTA* 4.1 mmol/L 05/12/2018 5.1 3.7 THOM* 35.3 % 05/14/2018 46.0 36.0 Progress Notes (CARD FUNCTION LAB J1-5): Melissa aMdrid RN, RN 05/10/2018 12:29 PM Signed AMBULATORY PATIENT EDUCATION TOPIC: PETRA READINESS TO LEARN COGNITIVE ABILITY: Alert and oriented MOTIVATION TO LEARN: Interested FAMILY SUPPORT: None - Unavailable/disinterested INSTRUCTION PROVIDED TO: Patient PATIENT LEARNS BEST BY: Multiple Methods FACTORS AFFECTING LEARNING: None PHYSICAL LIMITATIONS AFFECTING LEARNING: None LEARNING RESPONSE DIAGNOSIS: METHOD OF INSTRUCTION: Individual instruction Written instruction - handouts PATIENT / FAMILY RESPONSE: Verbalizes understanding of: POST-PROCEDURE INSTRUCTIONS-Correct actions to take to reduce post procedure complications PRE-PROCEDURE INSTRUCTIONS-Correct action to take to follow pre-procedure instructions FOLLOW-UP PLAN: Complete - No need for follow-up SUPPLEMENTAL MATERIAL: Procedure discharge instructions REFERRAL (RECOMMENDATION): None Electronically Signed By Melissa Madrid RN In Department: CARDIOLOGY Progress Notes (CARD INTERVENTION MAIN): Noni Mendes [facility] 05/09/2018 2:13 PM Signed Office contacted [facility] this morning for a copy patients heart cath from 04/20/18 on a CD. Office has been informed that the CD is ready to be picked up. Office contacted reliable runners to pick up attendant CD from [place] and bring to J2-3. Noni Mendes [facility] 05/09/2018 5:38 PM Signed CD of patients heart cath arrived and was uploaded into [employer]. 12 LEAD ELECTROCARDIOGRAM Observed: 05/07/2018 Status: F Source: [place] 10:31 AM [facility] REPOSITORY [facility] Cardiovascular Services [address] [place] [address] 12 Lead EKG 04/24/18 011 MR#: [id number] Acct: [id number] Name: FLAVIA CASE Rep #: [id number] : 1950 68 From: Ferny Marie MD Attending Dr: Sandra Mcconnell Status: DIS IN Ordering Dr: Marin Sheikh MD Date: 04/24/18 [facility] [facility] Sex: F C Admitted: 04/20/18 Test Reason : CP Blood Pressure : / mmHG Vent. Rate : 067 BPM Atrial Rate : 067 BPM P-R Int : 182 ms QRS Dur : 116 ms QT Int : 442 ms P-R-T Axes : 047 075 029 degrees QTc Int : 467 ms Normal sinus rhythm Incomplete left bundle branch block Borderline ECG When compared with ECG of 20-APR-2018 13:57, MANUAL COMPARISON REQUIRED, DATA IS UNCONFIRMED Confirmed by FRANK ONEAL, FERNY ([id number]), graphic editor SOUMYA BARTH ([id number]) on 05/07/2018 10:31:24 AM Referred By: DR FUNES Confirmed By:FERNY MARIE MD 05/07/18 1031 Date Ferny Marie MD CC: Sandra Mcconnell; Collin Gamez MD; Marin Sheikh MD Signed PROGRESS Observed: 05/04/2018 Status: COMPLETED Source: [place] 1:14 PM [facility] REPOSITORY HNO ID: [id number] Author: Keri Gamez Service: (none) Author Type: Physician Type: Progress Notes Filed: 05/04/2018 1:15 PM Note Text: INR therapeutic. Continue current coumadin dosage and follow up in 2 weeks. PROGRESS Observed: 05/04/2018 Status: COMPLETED Source: [place] 1:05 PM [facility] REPOSITORY HNO ID: [id number] Author: Brenda Darby RN Service: (none) Author Type: (none) Type: Progress Notes Filed: 05/04/2018 1:06 PM Note Text: patient had inr completed at [facility] patients inr is 3.3 (patients inr range is 3.0-4.0) patient is currently taking 3mg Tues, Thurs and 6mg all other days patients last dose change was on 01/08/18 due to a low level of 2.6 (dose at that time was 3mg Tues,Thurs,Sat and 6mg all other days) patient has had no changes in medication and no missed doses and no change in diet Advised patient to continue on the same dose(s) and that they would only be contacted regarding dosage and follow up instructions after review with provider, if a change is needed. Written instructions given and patient verbalized understanding. Presently scheduled on 05/15/18 for follow up INR. PROGRESS Observed: 05/02/2018 Status: COMPLETED Source: [place] 1:35 PM [facility] REPOSITORY HNO ID: [id number] Author: Keri Mo) Vera Service: (none) Author Type: Physician Type: Progress Notes Filed: 05/02/2018 1:36 PM Note Text: Reviewed. Will await their recommendations. If symptoms return and she has crushing chest pain, SOB, nausea, diaphoresis, and palpitations would recommend she return to the ED. PROGRESS Observed: 05/02/2018 Status: COMPLETED Source: [place] 10:53 AM [facility] REPOSITORY HNO ID: [id number] Author: Himanshu Green) Sybil Service: (none) Author Type: Registered Nurse Type: Progress Notes Filed: 05/02/2018 11:57 AM Note Text: TRANSITION CARE MANAGEMENT (TCM) FOLLOW-UP NOTE Provider Action/FYI Dr. Lei's nurse sending message to Dr. Lei to ask if he wants to see pt sooner regarding elevated BP, quivering in mid chest and sm amt of pain in chest last night. Pt having congestion with some trouble breathing and heaviness. Asked if she can use her rescue inhaler. Informed yes, use inhaler but if sx don't clear or pt has increased sx she is to call Dr. Lei's office Patient identified by name and date of : YES Spoke to patient and nurse Gigi at Dr. Lei Summary: TC to patient, discussed conversation with Dr. Lei's nurse (below.) Informed pt Dr. Lei's office should be calling to let pt know if she should be seen sooner. Also instructed to call Dr. Lei's office right away if she has any further symptoms. Patient asked if she can use her inhaler? Asked why? Pt states she is having some congestion and a little difficulty breathing, like heaviness. Instructed to use her inhaler but if the trouble breathing and heaviness doesn't clear she should call Dr. Lei's office and let them know in case it is due to her heart, verbalized understanding and agreement. TC to Gigi, nurse at Dr. Lei's office. Informed of all of below and read hospital discharge note regarding patient's cardiac cath and PCI documentation. Gigi asked Brenda MAO if patient should be seen sooner, she recommended Gigi send a message to Dr. Lei. Instructed to tell patient if she has any other symptoms to call their office right away. Concerns: Pt states last night she was woken up twice. Her BP was 200+/100+ and pulse was above 80. States she has a quivery feeling in the center of my chest and last night had some small pain with it. She called Dr. Lei's office but hasn't heard back from them yet. BP this morning was 169/75 and 154/57 and pulse 69 both times. Blue Leather Sorter plan for next outreach: Will follow up one week Signature Himanshu Aquino RN May 02, 2018 PROGRESS Observed: 05/02/2018 Status: COMPLETED Source: [place] 10:42 AM [facility] REPOSITORY HNO ID: [id number] Author: Himanshu (Rn) Sybil Service: (none) Author Type: Registered Nurse Type: Progress Notes Filed: 05/02/2018 10:51 AM Note Text: PRIMARY CARE COORDINATION QUICK NOTE Provider Action/FYI FYI Patient identified by name and date . TC to Micaela at [facility], informed pt received a call from rehab stating Dr. Lei wanted pt to start rehab. Micaela states patient would need to come in for an interview/assessment in a week or two then they decide if she is appropriate for rehab. Informed pt doesn't want to start the rehab process until after she sees Dr. Lei, states she will let Tom know. LIBORIO Observed: 05/02/2018 Status: COMPLETED Source: [place] 12:00 AM [facility] REPOSITORY Patient Outreach ([facility]AMP[facility]) MANPREETFLAVIA Hook ([id number]) 1950 F Date Time Provider Department 05/02/18 HIMANSHU AQUINO (RN) JERAD During your visit today, we recorded the following information about you: Himanshu Aquino RN 05/02/2018 11:57 AM Signed TRANSITION CARE MANAGEMENT (TCM) FOLLOW-UP NOTE Provider Action/FYI Dr. Lei's nurse sending message to Dr. Lei to ask if he wants to see pt sooner regarding elevated BP, quivering in mid chest and sm amt of pain in chest last night. Pt having congestion with some trouble breathing and heaviness. Asked if she can use her rescue inhaler. Informed yes, use inhaler but if sx don't clear or pt has increased sx she is to call Dr. Lei's office Patient identified by name and date of : YES Spoke to patient and nurse Gigi at Dr. Lei Summary: TC to patient, discussed conversation with Dr. Lei's nurse (below.) Informed pt Dr. Lei's office should be calling to let pt know if she should be seen sooner. Also instructed to call Dr. Lei's office right away if she has any further symptoms. Patient asked if she can use her inhaler? Asked why? Pt states she is having some congestion and a little difficulty breathing, like heaviness. Instructed to use her inhaler but if the trouble breathing and heaviness doesn't clear she should call Dr. Lei's office and let them know in case it is due to her heart, verbalized understanding and agreement. TC to nurse Gigi at Dr. Lei's office. Informed of all of below and read hospital discharge note regarding patient's cardiac cath and PCI documentation. Gigi asked Brenda MAO if patient should be seen sooner, she recommended Gigi send a message to Dr. Lei. Instructed to tell patient if she has any other symptoms to call their office right away. Concerns: Pt states last night she was woken up twice. Her BP was 200+/100+ and pulse was above 80. States she has a quivery feeling in the center of my chest and last night had some small pain with it. She called Dr. Lei's office but hasn't heard back from them yet. BP this morning was 169/75 and 154/57 and pulse 69 both times. Blue Leather Sorter plan for next outreach: Will follow up one week Signature Himanshu Aquino RN May 02, 2018 Keri Gamez MD 05/02/2018 1:36 PM Signed Reviewed. Will await their recommendations. If symptoms return and she has crushing chest pain, SOB, nausea, diaphoresis, and palpitations would recommend she return to the ED. Allergies As of Date: 05/02/2018 Noted Allergy Reaction ADVAIR DISKUS (FLUTICASONE-SALMET*05/16/2011 14 - Other: See Comments Comments: CHEST PAIN ASA (SALICYLATES) 05/10/2005 16 - Unknown Comments: patient taking coumadin - on low dose ASA for valve dysfunction CEPHALEXIN 02/21/2008 Comments: Stomach pains-pt. ended up in hospital EKG PADS [Other] 05/10/2005 Comments: adhesive LISINOPRIL 07/03/2014 3 - Cough NEXIUM (ESOMEPRAZOLE MAGNESIUM) 01/26/2016 14 - Other: See Comments Comments: Ineffective OMEPRAZOLE 01/26/2016 14 - Other: See Comments Comments: Ineffective TUDORZA PRESSAIR (ACLIDINIUM BROM*01/26/2016 8 - GI Upset VENTOLIN (ALBUTEROL SULFATE) 10/24/2017 14 - Other: See Comments Comments: Severe shaking, palpitations VENTOLIN (ALBUTEROL) 01/26/2016 14 - Other: See Comments Comments: Ventjose LEGER does not work, Pro Air works best Date Reviewed: 05/01/2018 Reviewed by: Pepito Li Ma - Fully Assessed Reason for Visit: [facility] Follow Up [3604] Cmt: TCM F/U call #1 Prescriptions as of 05/02/2018 Sig: WARFARIN 6 MG TABLET Take 3 mg Tues, Thurs and 6 m* ATENOLOL 50 MG TABLET Take 0.5 tablets by mouth onc* AMLODIPINE 10 MG TABLET Take 1 tablet by mouth once d* LORATADINE 10 MG TABLET Take 1 tablet by mouth once d* BUSPIRONE 5 MG TABLET Take 1 tablet by mouth three * AMIODARONE 200 MG TABLET Take 1 tablet by mouth once d* POTASSIUM CHLORIDE ER 20 MEQ * Take 1 tablet by mouth once d* MAGNESIUM OXIDE 400 MG (241.3* Take 1 tablet by mouth once d* MECLIZINE 12.5 MG TABLET Take 1 tablet by mouth three * NYSTATIN-TRIAMCINOLONE 100,00* Apply 1 application to affect* LINAGLIPTIN 5 MG TABLET Take 1 tablet by mouth once d* ALPRAZOLAM 0.25 MG TABLET Take 1 tablet by mouth every * AMOXICILLIN 500 MG CAPSULE Take 1 capsule by mouth three* RANOLAZINE ER 500 MG TABLET,E* Take 1 tablet by mouth twice * COMPOUNDED PRESCRIPTION HOME BP MONITOR, DX: HTN LABI* COMPOUNDED PRESCRIPTION Home scale for daily weight c* COMPOUNDED PRESCRIPTION Nebulizer for home use. Diagn* GUAIFENESIN ER 600 MG TABLET,* Take 2 tablets by mouth twice* FERROUS SULFATE 325 MG (65 MG* take 1 tablet by mouth twice * ISOSORBIDE MONONITRATE ER 30 * Take 4 tablets by mouth once * ATENOLOL 100 MG TABLET Take 0.5 tablets by mouth onc* WARFARIN 6 MG TABLET 3 mg Tu/ and 6 mg all * AMLODIPINE 5 MG TABLET Take 2 tablets by mouth once * ASPIRIN 81 MG TABLET,DELAYED * Take 1 tablet by mouth once d* LANSOPRAZOLE 30 MG CAPSULE,DE* take 1 capsule by mouth every* LOSARTAN 100 MG TABLET take 1 tablet by mouth once d* NITROGLYCERIN 0.4 MG SUBLINGU* Dissolve 1 tablet under the t* ATORVASTATIN 20 MG TABLET take 1 tablet by mouth once d* METFORMIN ER 500 MG TABLET,EX* take 2 tablets by mouth twice* OXYBUTYNIN CHLORIDE ER 10 MG * take 1 tablet by mouth once d* MUPIROCIN 2 % TOPICAL OINTMENT Apply 1 application to affect* ALBUTEROL SULFATE HFA 90 MCG/* Inhale 2 Puffs as instructed * POLYETHYLENE GLYCOL 3350 17 G* Take 17 g by mouth once daily* GLIPIZIDE ER 10 MG TABLET, EX* Take 1 tablet by mouth once d* DICLOFENAC 1 % TOPICAL GEL Apply 2 g to affected area tw* LEG BRACE 1 Each continuous. DX: S89.92* FUROSEMIDE 20 MG TABLET take 1 tablet by mouth once d* LEG BRACE 1 Each continuous. NYSTATIN 100,000 UNIT/GRAM TO* Apply 1 application to affect* TRAZODONE 50 MG TABLET Take 1 tablet by mouth daily * ALBUTEROL SULFATE CONCENTRATE* Inhale 0.5 mL as instructed o* COMPOUNDED PRESCRIPTION NEBULIZER SUPPLIES, MEDICATIO* Problem List As Of Date 05/02/2018 Noted Resolved AORTOCORONARY BYPASS STATUS [Z95.1] More... OVERWEIGHT [E66.9] 05/08/2015 ASHD (arteriosclerotic heart disease) [I25.10] INVALID FOR* More... DIABETES MELLITUS TYPE II-UNCOMPL [E11.9] INVALID FOR*02/12/2014 More... HYPERLIPIDEMIA NEC/NOS [E78.5] INVALID FOR*07/24/2015 More... Hematuria [599.7] INVALID FOR*07/24/2015 More... History of mechanical aortic valve replacement *INVALID FOR* More... Abdominal pain, unspecified site [R10.9] INVALID FOR*05/08/2015 Acute gastritis without mention of hemorrhage [*INVALID FOR*01/26/2016 Esophageal reflux [K21.9] INVALID FOR* More... Headache(784.0) [R51] INVALID FOR*01/26/2016 Bronchitis Recurrent [J40] INVALID FOR*03/21/2017 Hallux valgus (acquired) [M20.10] INVALID FOR*07/24/2015 Pain in limb [M79.609] INVALID FOR*01/26/2016 Goiter [E04.9] INVALID FOR* S/P AVR [Z95.2] INVALID FOR*01/26/2016 Multinodular thyroid [E04.2] INVALID FOR* Emphysema of lung (HCC) [J43.9] More... Hyperlipemia [E78.5] INVALID FOR* DM type 2 (diabetes mellitus, type 2) (HCC) [E1*INVALID FOR*05/08/2015 Hematuria [R31.9] INVALID FOR*10/23/2015 Smoking [F17.200] INVALID FOR*10/23/2015 Chronic anticoagulation [Z79.01] INVALID FOR* OAB (overactive bladder) [N32.81] INVALID FOR* More... Frequency of urination [R35.0] INVALID FOR*01/26/2016 Hypertension goal BP (blood pressure) < 140/90 *INVALID FOR* More... Diabetes mellitus type 2, uncontrolled, without*INVALID FOR*03/21/2017 More... Nicole rash of groin [B37.89] INVALID FOR* More... Stress at home [F43.9] INVALID FOR* Insomnia [G47.00] INVALID FOR* Financial difficulties [Z59.8] INVALID FOR* Obesity, Class III, BMI >= 40 (morbid obesity) *INVALID FOR* Hemoptysis [R04.2] INVALID FOR* More... 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 Eczema [L30.9] Diabetes mellitus (HCC) [E11.9] COPD (chronic obstructive pulmonary disease) (H* Diastolic CHF (HCC) [I50.30] Encounter Status:Closed by HIMANSHU AQUINO on 05/02/18 PROGRESS Observed: 05/01/2018 Status: COMPLETED Source: [place] 7:14 PM [facility] REPOSITORY HNO ID: [id number] Author: Pepito Li Ma Service: (none) Author Type: (none) Type: Progress Notes Filed: 05/01/2018 7:15 PM Note Text: Patient made aware at today's OV. Checking with CC for double book appointment. Pepito Li Ma PROGRESS Observed: 05/01/2018 Status: COMPLETED Source: [place] 5:28 PM [facility] REPOSITORY HNO ID: [id number] Author: Himanshu (Koko) Sybil Service: (none) Author Type: Registered Nurse Type: Progress Notes Filed: 05/01/2018 5:33 PM Note Text: PRIMARY CARE COORDINATION IN OFFICE VISIT WITH PCP Patient has been identified by name and date of . PCP Assessment/Plan: Reviewed PCP plan with patient using Teach Back Lengthy discussion regarding advanced directives and discussing pt's wishes for cardiac treatment with pt's family Patient completed Advanced Directives at [facility]. Asked pt to bring copies in to next appt to be scanned, verbalized understanding PCC Plan of Care: Patient concerns: Patient wants to have cardiac treatment done to open heart vessel before she has more chest pain. Patient is not afraid of dying but states she doesn't want to leave her family and she is worried about the pain and suffering she would go through during the dying process. Patient goals: Patient will follow up with Dr. Lei and will have treatment completed before she begins to have more chest pain Next Office Visit: 06/29/2018 Plan For Next Call: One week Himanshu Aquino RN May 01, 2018 PROGRESS Observed: 05/01/2018 Status: COMPLETED Source: [place] 5:08 PM [facility] REPOSITORY HNO ID: [id number] Author: Twila Bah LPN Service: (none) Author Type: (none) Type: Progress Notes Filed: 05/01/2018 5:08 PM Note Text: LM for pt to return call to Triage nurse. PROGRESS Observed: 05/01/2018 Status: COMPLETED Source: [place] 4:41 PM [facility] REPOSITORY HNO ID: [id number] Author: Keri Mo) Vera Service: (none) Author Type: Physician Type: Progress Notes Filed: 05/01/2018 4:41 PM Note Text: INR therapeutic. Continue current coumadin dosage and follow up on 05/04 due to amoxicillin use with coumadin. CNOV Observed: 05/01/2018 Status: COMPLETED Source: ARARAT 4:20 PM [facility] REPOSITORY Office Visit (FAMPWS) MANPREETFLAVIA Hook ([id number]) 1950 F Date Time Provider Department 05/01/18 4:20 PM KERI GAMEZ) FAMPWS During your visit today, we recorded the following information about you: Pulse Respiration Blood pressure Weight 68/minute 16/minute 136/60 103 kg Keri Gamez MD 05/01/2018 5:55 PM Signed Chief Complaint No chief complaint on file. HPI Flavia Case is a 68 year old female who presents here today for Hospital Discharge Follow up. Patient admitted to [facility] from 04/18 to 04/25 for complaint of chest pain and SOB. Hopsital course summarized by PCC Himanshu Aquino in bold below: TRANSITION CARE MANAGEMENT (TCM) INITIAL CONTACT ? ? Provider Action/FYI: NOT A TCM ? Pt states pulse dropped to 50's yesterday and she called [facility]. Instructed to decrease atenolol 50 mg to 1/2 tablet Daily ? Pt has chest congestion, some SOB and slight wheezing and expectorating yellow mucous since hospital discharge. Hasn't used rescue inhaler, instructed to use with wheezing and SOB Pt concerned Amoxil for UTI will not help her URI. Appt scheduled for tomorrow Pt asking if she can take Mucinex or decongestant ? Pt wasn't instructed on when to get next INR. 04/25/18 INR 2.2 On same dose of insulin as pre-hospital ? PLEASE FILE MEDICATION UPDATES AND ORDERS PENDED: Meclizine and Loratadine Refills Home Scale, BP Monitor and Nebulizer printed scripts ? TC jeremias Mendez at [facility], instructed to fax scripts for medical supplies along with insurance card copy and she will check if they are covered by [employer]. ? ? Initial contact with patient post discharge, spoke to Patient. Patient identified by name and . ? SUMMARY: -Pt discharged from [facility] on 04/25. -Follow up appointment on 05/01. -Medication review done with patient. -Admitted for: Unstable Angina/ACS Hematuria Cystitis due to E. Coli ? CONCERNS: Pt has chest congestion, some SOB and slight wheezing since hospital discharge. Hasn't used rescue inhaler, instructed to use with wheezing and SOB Pt concerned Amoxil for UTI will not help her URI. Appt scheduled for tomorrow ? NEW MEDICATIONS: Alprazolam [Xanax] 0.25 mg PO Q6H PRN #20 tab PRN Reason: panic attack Amoxicillin [Amoxil] 500 mg PO Q8H #30 Ranolazine [Ranexa] 500 mg PO BID #60 Amiodarone HCl [Cordarone] 200 mg PO DAILY #30 tablet 04/13/18 Linagliptin [Tradjenta] 5 mg PO DAILY #30 tablet 04/13/18 Magnesium Oxide [Mag-Ox 400] 400 mg PO DAILYCM #30 tablet Potassium Chloride [K-Dur] 20 meq PO DAILYCM #30 tablet busPIRone [Buspar] 5 mg PO TID #90 tablet ? MEDICATION CHANGES: Isosorbide Mononitrate (Imdur) 120 mg PO Daily #30 tablet ? MEDS HELD/DISCONTINUED: sertraline (ZOLOFT) 100 mg 1 tablet by mouth once daily ? BRIEF HOSPITAL COURSE: ? COPIED FROM [facility]: ? Procedures: Cardiac catheterization - [place] multivessel coronary artery disease, SHELBY to LAD patent, SVG to LCx occluded, SVG to RCA occluded, aortic valve: Mechanical bileaflet opening and closing appropriately. Attempt was made to PTCA the RCA but the vessel was too heavily calcified and the procedure was not successful Presented to the ED at [facility] on 04/18/2018 complaining of chest pain radiating into both sides of her neck. It was a associated with shortness of breath and diaphoresis. Earlier in month she had a stress test that was negative for ischemia. She has had 2 recent admissions for paroxysmal atrial fibrillation with rapid ventricular response. Troponin x3 was less than 0.015. She was seen in consultation by Dr. Nieves Lei who felt that since this was her third admission in less than 30 days for chest pain that she should have a cardiac catheterization. Pt agreeable. Cardiac catheterization was done on 04/20/2018 and revealed a 100% occlusion of the saphenous vein graft to the RCA, occluded left circumflex saphenous vein graft and a patent SHELBY to the LAD. The AV was a bileaflet valve which opened and closed appropriately. She was referred for PCI but the RCA was heavily calcified and could not be successfully dilated. The preprocedure stenosis was 95-100% and post procedure the RCA had a 80% stenosis. She was started on Ranexa. INR at admission was 4 and she had gross hematuria. Warfarin was held and she was started on a Heparin drip when the INR dropped below 2. Seen in consult by Dr. Mahajan from urology. The urine cleared and the aden was removed. The patient is going to follow up with Dr. Mahajan in the office for renal imaging for hematuria and possible cystoscopy. Warfarin was restarted and a heparin infusion was used to bridge. She had no further hematuria. She began c/o urinary frequency and a straight cath was done and the urine was sent for culture which grew a saunders-sensitive E. Coli. She was started on Amoxil 500 mg TID. Discharged home on 04/25/18. She will be continued on Buspar which has significantly improved her anxiety and he was given a RX for Xanax 0.25 mg and will take 1 every 4 hours as needed for panic attack. She was given literature at [place] about anxiety disorders, panic attacks and medical and non-pharmacologic treatments for anxiety with panic attacks. ?s She will follow-up with Dr. Gamez in the office in 1-[address] Lei in 2-3 weeks. She is also going to follow-up with Dr. Mahajan in the future. ? Himanshu Aquino, RN Since discharge, patient has been doing well at home without OT or PT. Cardiology recommended cardiac rehab, but patient has been playing phone tag and nothing has been set up this far. Denies chest pain since discharge. Able to perform all ADL's without issue. Feels like she is doing much better than when she was admitted to the hospital. Taking all medications as prescribed without side effects. UTI: asymptomatic on amoxicillin. Has about 3 days left of rx. Cough: Improving slowly on OTC mucinex. Denies SOB, chest pain, chest congestion, fever/chills or wheezing today. Anxiety: patient's symptoms controlled with buspar and xanax PRN. Patient requesting to stay on current regimen. Discussed may need to add on SSRI to control symptoms so she doesn't need Xanax. Patient would like to continue this regimen as she may feel better once she knows her vessels are open again. Patient has appointment with Dr. Lei's office on 05/16. Considering switching to Dr. Lei as network coordinator as Dr. Corado is leaving. Past medical history, appointments, medications, allergies reviewed. Previous Medical History PAST MEDICAL HISTORY Diagnosis Date - Acute gastritis without mention of hemorrhage - Acute peptic ulcer - Anxiety - ASHD (arteriosclerotic heart disease) Dr. Corado - Benign neoplasm of colon - Carpal tunnel syndrome - COPD (chronic obstructive pulmonary disease) (HCC) - Corns and callosities 02/11/2010 - Dermatophytosis of nail 02/11/2010 - Diabetes mellitus (HCC) - Diaphragmatic hernia without mention of obstruction or gangrene - Diastolic CHF (HCC) - Eczema - External hemorrhoids without mention of complication - Fatty liver - Hepatosplenomegaly - Hirsutism 10/21/2010 - Hyperlipidemia - Hypertension - Internal hemorrhoids without mention of complication - Lung cancer (HCC) 09/[address] Lizarraga. Stage I squamous cell s/p radiation - Multinodular thyroid benign - Obesity, unspecified - Overactive bladder Dr. Recio - Postsurgical aortocoronary bypass status triple bypass, aortic valve replacement - Pulmonary hypertension (HCC) - S/P AVR - Seasonal allergies - Squamous cell carcinoma neck, back, leg, left lung - Toe deformity 02/11/2010 Previous Surgical History PAST SURGICAL HISTORY Procedure Laterality Date - CABG, ARTERY-VEIN, THREE 1996 CABG, three grafts, replace heart valve - DELIVERY ONLY x3 - COLONOSCOP W/ OR W/O [facility] SPEC 01/02/2001, 09/21/2005 Colonoscopy - COLONOSCOP W/ OR W/O BRS SPEC 04/26/06 - EGD W/O OR W/BRUSH/WASH 04/26/06 - EGD W/O OR W/BRUSH/WASH 01/12/1984 EGD with biopsy of antral ulcer - LAPAROSCOPIC CHOLEYCYSTECTOMY 09-06-12 - PAST SURGICAL HISTORY OF skin cancer from knee / benign spot from back - PAST SURGICAL HISTORY OF cataract removal bilateral - TOTAL ABDOM HYSTERECTOMY 1978 for endometriosis, ovaries spared Family History FAMILY HISTORY Problem Relation Age of Onset - Heart Father - Heart Mother - Thyroid Mother Goiter - Diabetes Maternal Grandfather - other (stomach cancer) Sister Adenocarcinoma - Heart Daughter - Colon Cancer Sister 52 Patient Allergies ALLERGIES Allergen Reactions - Advair Diskus [Flut* Other: See Comments CHEST PAIN - Asa [Salicylates] Unknown patient taking coumadin - on low dose ASA for valve dysfunction - Cephalexin Stomach pains-pt. ended up in hospital - Ekg Pads [Other] adhesive - Lisinopril Cough - Nexium [Esomeprazol* Other: See Comments Ineffective - Omeprazole Other: See Comments Ineffective - Tudorza Pressair [A* GI Upset - Ventolin [Albuterol* Other: See Comments Severe shaking, palpitations - Ventolin [Albuterol] Other: See Comments Ventolin MDI does not work, Pro Air works best Current Medications Current Outpatient Prescriptions on File Prior to Visit: atenolol (TENORMIN) 50 mg tablet Take 0.5 tablets by mouth once daily. amLODIPine (NORVASC) 10 mg tablet Take 1 tablet by mouth once daily. loratadine (CLARITIN) 10 mg tablet Take 1 tablet by mouth once daily. busPIRone (BUSPAR) 5 mg tablet Take 1 tablet by mouth three times daily. amiodarone (PACERONE) 200 mg tablet Take 1 tablet by mouth once daily. potassium chloride ER (K-DUR, KLOR-CON) 20 mEq tablet Take 1 tablet by mouth once daily. magnesium oxide (MAG-OX) 400 mg (241.3 mg magnesium) tablet Take 1 tablet by mouth once daily. meclizine (ANTIVERT) 12.5 mg tab Take 1 tablet by mouth three times daily as needed (dizziness). nystatin-triamcinolone (MYCOLOG II) cream Apply 1 application to affected area twice daily as needed. Apply to affected area for 2 weeks linagliptin (TRADJENTA) 5 mg tab Take 1 tablet by mouth once daily. ALPRAZolam (XANAX) 0.25 mg tablet Take 1 tablet by mouth every 6 hours as needed for Anxiety for up to 20 doses. amoxicillin (POLYMOX, AMOXIL) 500 mg capsule Take 1 capsule by mouth three times daily for 30 doses. ranolazine ER (RANEXA) 500 mg 12 hr tablet Take 1 tablet by mouth twice daily. COMPOUNDED PRESCRIPTION HOME BP MONITOR, DX: HTN LABILE Dx: Hypertension goal BP (blood pressure) < 140/90 ICD-10 I10 COMPOUNDED PRESCRIPTION Home scale for daily weight check. Dx: CHF-diastolic >Nebulizer For Home Nebulizer for home use. Diagnosis: COPD ICD-10 J42 guaiFENesin (MUCINEX) 600 mg 12 hr tablet Take 2 tablets by mouth twice daily. tiZANidine (ZANAFLEX) 4 mg tablet take 1 tablet by mouth at bedtime if needed ferrous sulfate 325 mg (65 mg iron) tablet take 1 tablet by mouth twice a day with meals isosorbide mononitrate ER (IMDUR) 30 mg 24 hr tablet Take 4 tablets by mouth once daily. atenolol (TENORMIN) 100 mg tablet Take 0.5 tablets by mouth once daily. warfarin (COUMADIN) 6 mg tablet 3 mg Tues/thurs and 6 mg all other days or as directed amLODIPine (NORVASC) 5 mg tablet Take 2 tablets by mouth once daily. aspirin, enteric coated (ASPIRIN, ENTERIC COATED) 81 mg EC tablet Take 1 tablet by mouth once daily. lansoprazole (PREVACID) 30 mg capsule take 1 capsule by mouth every morning AT 6 AM and every evening AT 4 PM before meals losartan (COZAAR) 100 mg tablet take 1 tablet by mouth once daily nitroglycerin sublingual (NITROSTAT) 0.4 mg SL tablet Dissolve 1 tablet under the tongue as needed. DISSOLVE ON TONGUE FOR CHEST PAIN. IF NO PAIN RELIEF, CALL 911 atorvastatin (LIPITOR) 20 mg tablet take 1 tablet by mouth once daily metFORMIN ER (GLUCOPHAGE XR) 500 mg 24 hr tablet take 2 tablets by mouth twice a day oxybutynin ER (DITROPAN XL) 10 mg 24 hr tablet take 1 tablet by mouth once daily mupirocin (BACTROBAN) 2 % ointment Apply 1 application to affected area three times daily. Location: Inside nose albuterol HFA (PROAIR HFA) 90 mcg/actuation inhaler Inhale 2 Puffs as instructed every 4 hours as needed. polyethylene glycol 3350 (MIRALAX, GLYCOLAX) 17 gram/dose powder Take 17 g by mouth once daily. dissolve in water. warfarin (COUMADIN) 1 mg tablet Take 1 tablet by mouth once daily. glipiZIDE XL (GLUCOTROL XL) 10 mg 24 hr tablet Take 1 tablet by mouth once daily. diclofenac sodium (VOLTAREN) 1 % topical gel Apply 2 g to affected area twice daily as needed. Both heels Leg Brace (KNEE SUPPORT BRACE) misc 1 Each continuous. DX: S89.92XA furosemide (LASIX) 20 mg tablet take 1 tablet by mouth once daily Leg Brace (KNEE SUPPORT BRACE) misc 1 Each continuous. warfarin (COUMADIN) 6 mg tablet Take 7 mg Daily nystatin (MYCOSTATIN) cream Apply 1 application to affected area twice daily. Groin as needed traZODone (DESYREL) 50 mg tablet Take 1 tablet by mouth daily at bedtime. albuterol (PROVENTIL) 5 mg/mL nebu Inhale 0.5 mL as instructed one time only for 1 dose. 1 DOSE NOW - BACK OFFICE. PLACE 0.5 ML PER DROPPER AND 2.5 ML OF NORMAL SALINE INTO RESERVOIR. COMPOUNDED PRESCRIPTION NEBULIZER SUPPLIES, MEDICATION CUP, TUBING FOR USE WITH NEBULIZER MACHINE DX J40.0 No current facility-administered medications on file prior to visit. 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 Ex-spouse of 38 years also a smoker. Alcohol use: No Drug use: No Sexual activity: No Comment: Social History Narrative Born [place], moved [facility] 1958 age 9. 4 years in current home[place]. Dry basement. Electric baseboard heat. No central A/C, uses window units. No pets in home currently. Bird and dog not replaced at deaths 13 years ago. SSI and medical card. [employer], 01/07 in 2012. Review of Symptoms REVIEW OF SYSTEMS GENERAL: No weight loss, malaise or fevers RESPIRATORY: Negative for cough, hemoptysis, wheezing, COPD, dyspnea or shortness of breath CARDIOVASCULAR: Negative for chest pain, leg swelling, hypertension, CHF or palpitations GI: No nausea, vomiting, or diarrhea SKIN: Negative for lesions, rash, and itching EXAM: BP 136/60 Pulse 68 Resp 16 Wt 103 kg (227 lb) SpO2 96% BMI 40.21 kg/m? General Appearance: Well appearing, alert, in no acute distress, well-hydrated, well nourished.. Skin: Skin color, texture, turgor normal, no suspicious rashes or lesions. Lungs: lungs clear to auscultation. No wheezing, rhonchi, rales. Heart: RRR without murmur, gallop, or rubs. No ectopy. Abdomen: Normal abdominal exam, Abdomen soft, non-tender. Bowel sounds normal. No masses, organomegaly. Extremities: No deformities, edema, skin discoloration, clubbing or cyanosis. Good capillary refill. . Health Maintenance List DILATED RETINAL EXAM due on 03/10/2018 JEFF/ARB MED PRESCRIBED due on 05/25/2018 STATIN MED ADHERENCE due on 05/25/2018 DIABETES MED ADHERENCE due on 05/25/2018 MAMMOGRAM due on 06/16/2018 LDL CHOLESTEROL due on 06/16/2018 DIABETIC FOOT EXAM due on 06/28/2018 HBA1C due on 07/15/2018 URINE ALBUMIN:CREATININE RATIO due on 01/15/2019 ANNUAL PCP TEAM CHRONIC DISEASE VISIT due on 01/24/2019 BP CONTROLLED (<130/80) due on 01/24/2019 FECAL OCCULT BLOOD due on 01/30/2019 DTAP,TDAP,TD(2 - Td) due on 03/08/2021 BONE DENSITY Completed ADULT PREVNAR-13 Completed INFLUENZA Completed HEPATITIS C SCREENING Completed PNEUMOVAX AGE 65 AND OVER WITH 5YR LOOKBACK Completed ASSESSMENT/PLAN: 1. Unstable angina (HCC) - ICD9: 411.1, ICD10: I20.0 (primary diagnosis) Asymptomatic on current regimen. F/u with cardiology as recommended. 2. Anxiety - ICD9: 300.00, ICD10: F41.9 Controlled on current regimen. Continue buspar and xanax as prescribed. 3. Acute cystitis with hematuria - ICD9: 595.0, ICD10: N30.01 Symptoms resolved. Finish course of abx. 4. Cough - ICD9: 786.2, ICD10: R05 Improving with OTC mucinex. To call with changing/worsening symptoms. 5. Hospital discharge follow-up - ICD9: V67.59, ICD10: Z09 Patient doing well after discharge. Discussed scheduling f/u with cardiac rehab with PCC Himanshu Aquino. music coordinator will call later this week to help set up. Keri Gamez MD Referring Provider: EKRI GAMEZ) [[id number]] Allergies As of Date: 05/01/2018 Noted Allergy Reaction ADVAIR DISKUS (FLUTICASONE-SALMET*05/16/2011 14 - Other: See Comments Comments: CHEST PAIN ASA (SALICYLATES) 05/10/2005 16 - Unknown Comments: patient taking coumadin - on low dose ASA for valve dysfunction CEPHALEXIN 02/21/2008 Comments: Stomach pains-pt. ended up in hospital EKG PADS [Other] 05/10/2005 Comments: adhesive LISINOPRIL 07/03/2014 3 - Cough NEXIUM (ESOMEPRAZOLE MAGNESIUM) 01/26/2016 14 - Other: See Comments Comments: Ineffective OMEPRAZOLE 01/26/2016 14 - Other: See Comments Comments: Ineffective TUDORZA PRESSAIR (ACLIDINIUM BROM*01/26/2016 8 - GI Upset VENTOLIN (ALBUTEROL SULFATE) 10/24/2017 14 - Other: See Comments Comments: Severe shaking, palpitations JANY (ALBUTEROL) 01/26/2016 14 - Other: See Comments Comments: Jany LEGER does not work, Pro Air works best Date Reviewed: 05/01/2018 Reviewed by: Pepito Li Ma - Fully Assessed Reason for Visit: Hospital Follow Up [177] Cmt: fasting BS this amm 99 Reason For Visit History Recorded Primary Visit Diagnosis:Unstable angina (HCC) [I20.0] Other Visit Diagnoses:Anxiety [F41.9] Acute cystitis with hematuria [N30.01] Cough [R05] Hospital discharge follow-up [Z09] History of mechanical aortic valve replacement [Z95.2] Chronic anticoagulation [Z79.01] Order(s):warfarin (COUMADIN) 6 mg tabletTake 3 mg Tues, Thurs and 6 mg all other days.Disp: 90 tabletRfl: 3 Prescriptions as of 05/01/2018 Sig: WARFARIN 6 MG TABLET Take 3 mg Tues, Thurs and 6 m* ATENOLOL 50 MG TABLET Take 0.5 tablets by mouth onc* AMLODIPINE 10 MG TABLET Take 1 tablet by mouth once d* LORATADINE 10 MG TABLET Take 1 tablet by mouth once d* BUSPIRONE 5 MG TABLET Take 1 tablet by mouth three * AMIODARONE 200 MG TABLET Take 1 tablet by mouth once d* POTASSIUM CHLORIDE ER 20 MEQ * Take 1 tablet by mouth once d* MAGNESIUM OXIDE 400 MG (241.3* Take 1 tablet by mouth once d* MECLIZINE 12.5 MG TABLET Take 1 tablet by mouth three * NYSTATIN-TRIAMCINOLONE 100,00* Apply 1 application to affect* LINAGLIPTIN 5 MG TABLET Take 1 tablet by mouth once d* ALPRAZOLAM 0.25 MG TABLET Take 1 tablet by mouth every * AMOXICILLIN 500 MG CAPSULE Take 1 capsule by mouth three* RANOLAZINE ER 500 MG TABLET,E* Take 1 tablet by mouth twice * COMPOUNDED PRESCRIPTION HOME BP MONITOR, DX: HTN LABI* COMPOUNDED PRESCRIPTION Home scale for daily weight c* COMPOUNDED PRESCRIPTION Nebulizer for home use. Diagn* GUAIFENESIN ER 600 MG TABLET,* Take 2 tablets by mouth twice* FERROUS SULFATE 325 MG (65 MG* take 1 tablet by mouth twice * ISOSORBIDE MONONITRATE ER 30 * Take 4 tablets by mouth once * ATENOLOL 100 MG TABLET Take 0.5 tablets by mouth onc* WARFARIN 6 MG TABLET 3 mg Tues/thurs and 6 mg all * AMLODIPINE 5 MG TABLET Take 2 tablets by mouth once * ASPIRIN 81 MG TABLET,DELAYED * Take 1 tablet by mouth once d* LANSOPRAZOLE 30 MG CAPSULE,DE* take 1 capsule by mouth every* LOSARTAN 100 MG TABLET take 1 tablet by mouth once d* NITROGLYCERIN 0.4 MG SUBLINGU* Dissolve 1 tablet under the t* ATORVASTATIN 20 MG TABLET take 1 tablet by mouth once d* METFORMIN ER 500 MG TABLET,EX* take 2 tablets by mouth twice* OXYBUTYNIN CHLORIDE ER 10 MG * take 1 tablet by mouth once d* MUPIROCIN 2 % TOPICAL OINTMENT Apply 1 application to affect* ALBUTEROL SULFATE HFA 90 MCG/* Inhale 2 Puffs as instructed * POLYETHYLENE GLYCOL 3350 17 G* Take 17 g by mouth once daily* GLIPIZIDE ER 10 MG TABLET, EX* Take 1 tablet by mouth once d* DICLOFENAC 1 % TOPICAL GEL Apply 2 g to affected area tw* LEG BRACE 1 Each continuous. DX: S89.92* FUROSEMIDE 20 MG TABLET take 1 tablet by mouth once d* LEG BRACE 1 Each continuous. NYSTATIN 100,000 UNIT/GRAM TO* Apply 1 application to affect* TRAZODONE 50 MG TABLET Take 1 tablet by mouth daily * ALBUTEROL SULFATE CONCENTRATE* Inhale 0.5 mL as instructed o* COMPOUNDED PRESCRIPTION NEBULIZER SUPPLIES, MEDICATIO* Problem List As Of Date 05/01/2018 Noted Resolved AORTOCORONARY BYPASS STATUS [Z95.1] More... OVERWEIGHT [E66.9] 05/08/2015 ASHD (arteriosclerotic heart disease) [I25.10] INVALID FOR* More... DIABETES MELLITUS TYPE II-UNCOMPL [E11.9] INVALID FOR*02/12/2014 More... HYPERLIPIDEMIA NEC/NOS [E78.5] INVALID FOR*07/24/2015 More... Hematuria [599.7] INVALID FOR*07/24/2015 More... History of mechanical aortic valve replacement *INVALID FOR* More... Abdominal pain, unspecified site [R10.9] INVALID FOR*05/08/2015 Acute gastritis without mention of hemorrhage [*INVALID FOR*01/26/2016 Esophageal reflux [K21.9] INVALID FOR* More... Headache(784.0) [R51] INVALID FOR*01/26/2016 Bronchitis Recurrent [J40] INVALID FOR*03/21/2017 Hallux valgus (acquired) [M20.10] INVALID FOR*07/24/2015 Pain in limb [M79.609] INVALID FOR*01/26/2016 Goiter [E04.9] INVALID FOR* S/P AVR [Z95.2] INVALID FOR*01/26/2016 Multinodular thyroid [E04.2] INVALID FOR* Emphysema of lung (HCC) [J43.9] More... Hyperlipemia [E78.5] INVALID FOR* DM type 2 (diabetes mellitus, type 2) (HCC) [E1*INVALID FOR*05/08/2015 Hematuria [R31.9] INVALID FOR*10/23/2015 Smoking [F17.200] INVALID FOR*10/23/2015 Chronic anticoagulation [Z79.01] INVALID FOR* OAB (overactive bladder) [N32.81] INVALID FOR* More... Frequency of urination [R35.0] INVALID FOR*01/26/2016 Hypertension goal BP (blood pressure) < 140/90 *INVALID FOR* More... Diabetes mellitus type 2, uncontrolled, without*INVALID FOR*03/21/2017 More... Nicole rash of groin [B37.89] INVALID FOR* More... Stress at home [F43.9] INVALID FOR* Insomnia [G47.00] INVALID FOR* Financial difficulties [Z59.8] INVALID FOR* Obesity, Class III, BMI >= 40 (morbid obesity) *INVALID FOR* Hemoptysis [R04.2] INVALID FOR* More... 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 Eczema [L30.9] Diabetes mellitus (HCC) [E11.9] COPD (chronic obstructive pulmonary disease) (H* Diastolic CHF (HCC) [I50.30] Prescriptions ordered this encounter Disp Refills Start End WARFARIN 6 MG TABLET 90 t* 3 05/01/2018 Class: Med Update Cmt: Take with 1 mg tablet to make 7 mg dose Sig: Take 3 mg Tues, Thurs and 6 mg all other days. Medications Discontinued During This Encounter warfarin (COUMADIN) 6 mg tablet 90 t* 3 11/03/2016 05/01/2018 Class: Med Update Cmt: Take with 1 mg tablet to make 7 mg dose Sig: Take 7 mg Daily Disc: Adjust Sig - Block E-Cancel warfarin (COUMADIN) 1 mg tablet 30 t* 11 09/05/2017 05/01/2018 Route: ORAL Sig: Take 1 tablet by mouth once daily. Disc: Reason for discontinue is not on file. tiZANidine (ZANAFLEX) 4 mg tablet 30 t* 2 04/09/2018 05/01/2018 Sig: take 1 tablet by mouth at bedtime if needed Disc: Reason for discontinue is not on file. Disposition: Return in about 2 months (around 06/29/2018). Follow-up and Disposition History Recorded Encounter Status:Closed by KERI GAMEZ MD on 05/01/18 PROGRESS Observed: 05/01/2018 Status: COMPLETED Source: [facility] 4:10 PM [facility] [place] REPOSITORY HNO ID: [id number] Author: Keri Mo) Vera Service: (none) Author Type: Physician Type: Progress Notes Filed: 05/01/2018 5:55 PM Note Text: Chief Complaint No chief complaint on file. HPI Flavia Case is a 68 year old female who presents here today for Hospital Discharge Follow up. Patient admitted to [facility] from 04/18 to 04/25 for complaint of chest pain and SOB. Hopsital course summarized by PCC Himanshu Aquino in bold below: TRANSITION CARE MANAGEMENT (TCM) INITIAL CONTACT ? ? Provider Action/FYI: NOT A TCM ? Pt states pulse dropped to 50's yesterday and she called [facility]. Instructed to decrease atenolol 50 mg to 1/2 tablet Daily ? Pt has chest congestion, some SOB and slight wheezing and expectorating yellow mucous since hospital discharge. Hasn't used rescue inhaler, instructed to use with wheezing and SOB Pt concerned Amoxil for UTI will not help her URI. Appt scheduled for tomorrow Pt asking if she can take Mucinex or decongestant ? Pt wasn't instructed on when to get next INR. 04/25/18 INR 2.2 On same dose of insulin as pre-hospital ? PLEASE FILE MEDICATION UPDATES AND ORDERS PENDED: Meclizine and Loratadine Refills Home Scale, BP Monitor and Nebulizer printed scripts ? TC to Vanessa at [facility], instructed to fax scripts for medical supplies along with insurance card copy and she will check if they are covered by [employer]. ? ? Initial contact with patient post discharge, spoke to Patient. Patient identified by name and . ? SUMMARY: -Pt discharged from [facility] on 04/25. -Follow up appointment on 05/01. -Medication review done with patient. -Admitted for: Unstable Angina/ACS Hematuria Cystitis due to E. Coli ? CONCERNS: Pt has chest congestion, some SOB and slight wheezing since hospital discharge. Hasn't used rescue inhaler, instructed to use with wheezing and SOB Pt concerned Amoxil for UTI will not help her URI. Appt scheduled for tomorrow ? NEW MEDICATIONS: Alprazolam [Xanax] 0.25 mg PO Q6H PRN #20 tab PRN Reason: panic attack Amoxicillin [Amoxil] 500 mg PO Q8H #30 Ranolazine [Ranexa] 500 mg PO BID #60 Amiodarone HCl [Cordarone] 200 mg PO DAILY #30 tablet 04/13/18 Linagliptin [Tradjenta] 5 mg PO DAILY #30 tablet 18 Magnesium Oxide [Mag-Ox 400] 400 mg PO DAILYCM #30 tablet Potassium Chloride [K-Dur] 20 meq PO DAILYCM #30 tablet busPIRone [Buspar] 5 mg PO TID #90 tablet ? MEDICATION CHANGES: Isosorbide Mononitrate (Imdur) 120 mg PO Daily #30 tablet ? MEDS HELD/DISCONTINUED: sertraline (ZOLOFT) 100 mg 1 tablet by mouth once daily ? BRIEF HOSPITAL COURSE: ? COPIED FROM [facility]: ? Procedures: Cardiac catheterization - [place] multivessel coronary artery disease, SHELBY to LAD patent, SVG to LCx occluded, SVG to RCA occluded, aortic valve: Mechanical bileaflet opening and closing appropriately. Attempt was made to PTCA the RCA but the vessel was too heavily calcified and the procedure was not successful Presented to the ED at [facility] on 04/18/2018 complaining of chest pain radiating into both sides of her neck. It was a associated with shortness of breath and diaphoresis. Earlier in month she had a stress test that was negative for ischemia. She has had 2 recent admissions for paroxysmal atrial fibrillation with rapid ventricular response. Troponin x3 was less than 0.015. She was seen in consultation by Dr. Nieves Lei who felt that since this was her third admission in less than 30 days for chest pain that she should have a cardiac catheterization. Pt agreeable. Cardiac catheterization was done on 04/20/2018 and revealed a 100% occlusion of the saphenous vein graft to the RCA, occluded left circumflex saphenous vein graft and a patent SHELBY to the LAD. The AV was a bileaflet valve which opened and closed appropriately. She was referred for PCI but the RCA was heavily calcified and could not be successfully dilated. The preprocedure stenosis was 95-100% and post procedure the RCA had a 80% stenosis. She was started on Ranexa. INR at admission was 4 and she had gross hematuria. Warfarin was held and she was started on a Heparin drip when the INR dropped below 2. Seen in consult by Dr. Mahajan from urology. The urine cleared and the aden was removed. The patient is going to follow up with Dr. Mahajan in the office for renal imaging for hematuria and possible cystoscopy. Warfarin was restarted and a heparin infusion was used to bridge. She had no further hematuria. She began c/o urinary frequency and a straight cath was done and the urine was sent for culture which grew a saunders-sensitive E. Coli. She was started on Amoxil 500 mg TID. Discharged home on 04/25/18. She will be continued on Buspar which has significantly improved her anxiety and he was given a RX for Xanax 0.25 mg and will take 1 every 4 hours as needed for panic attack. She was given literature at [place] about anxiety disorders, panic attacks and medical and non-pharmacologic treatments for anxiety with panic attacks. ?s She will follow-up with Dr. Gamez in the office in 1-[address] Lei in 2-3 weeks. She is also going to follow-up with Dr. Mahajan in the future. ? Himanshu Aquino, RN Since discharge, patient has been doing well at home without OT or PT. Cardiology recommended cardiac rehab, but patient has been playing phone tag and nothing has been set up this far. Denies chest pain since discharge. Able to perform all ADL's without issue. Feels like she is doing much better than when she was admitted to the hospital. Taking all medications as prescribed without side effects. UTI: asymptomatic on amoxicillin. Has about 3 days left of rx. Cough: Improving slowly on OTC mucinex. Denies SOB, chest pain, chest congestion, fever/chills or wheezing today. Anxiety: patient's symptoms controlled with buspar and xanax PRN. Patient requesting to stay on current regimen. Discussed may need to add on SSRI to control symptoms so she doesn't need Xanax. Patient would like to continue this regimen as she may feel better once she knows her vessels are open again. Patient has appointment with Dr. Lei's office on 05/16. Considering switching to Dr. Lei as network coordinator as Dr. Corado is leaving. Past medical history, appointments, medications, allergies reviewed. Previous Medical History PAST MEDICAL HISTORY Diagnosis Date - Acute gastritis without mention of hemorrhage - Acute peptic ulcer - Anxiety - ASHD (arteriosclerotic heart disease) Dr. Corado - Benign neoplasm of colon - Carpal tunnel syndrome - COPD (chronic obstructive pulmonary disease) (HCC) - Corns and callosities 02/11/2010 - Dermatophytosis of nail 02/11/2010 - Diabetes mellitus (HCC) - Diaphragmatic hernia without mention of obstruction or gangrene - Diastolic CHF (HCC) - Eczema - External hemorrhoids without mention of complication - Fatty liver - Hepatosplenomegaly - Hirsutism 10/21/2010 - Hyperlipidemia - Hypertension - Internal hemorrhoids without mention of complication - Lung cancer (HCC) 09/[address] Lizarraga. Stage I squamous cell s/p radiation - Multinodular thyroid benign - Obesity, unspecified - Overactive bladder Dr. Recio - Postsurgical aortocoronary bypass status triple bypass, aortic valve replacement - Pulmonary hypertension (HCC) - S/P AVR - Seasonal allergies - Squamous cell carcinoma neck, back, leg, left lung - Toe deformity 02/11/2010 Previous Surgical History PAST SURGICAL HISTORY Procedure Laterality Date - CABG, ARTERY-VEIN, THREE 1996 CABG, three grafts, replace heart valve - DELIVERY ONLY x3 - COLONOSCOP W/ OR W/O [facility] SPEC 01/02/2001, 09/21/2005 Colonoscopy - COLONOSCOP W/ OR W/O [facility] SPEC 04/26/06 - EGD W/O OR W/BRUSH/WASH 04/26/06 - EGD W/O OR W/BRUSH/WASH 01/12/1984 EGD with biopsy of antral ulcer - LAPAROSCOPIC CHOLEYCYSTECTOMY 09-06-12 - PAST SURGICAL HISTORY OF skin cancer from knee / benign spot from back - PAST SURGICAL HISTORY OF cataract removal bilateral - TOTAL ABDOM HYSTERECTOMY 1978 for endometriosis, ovaries spared Family History FAMILY HISTORY Problem Relation Age of Onset - Heart Father - Heart Mother - Thyroid Mother Goiter - Diabetes Maternal Grandfather - other (stomach cancer) Sister Adenocarcinoma - Heart Daughter - Colon Cancer Sister 52 Patient Allergies ALLERGIES Allergen Reactions - Advair Diskus [Flut* Other: See Comments CHEST PAIN - Asa [Salicylates] Unknown patient taking coumadin - on low dose ASA for valve dysfunction - Cephalexin Stomach pains-pt. ended up in hospital - Ekg Pads [Other] adhesive - Lisinopril Cough - Nexium [Esomeprazol* Other: See Comments Ineffective - Omeprazole Other: See Comments Ineffective - Tudorza Pressair [A* GI Upset - Ventolin [Albuterol* Other: See Comments Severe shaking, palpitations - Ventolin [Albuterol] Other: See Comments Ventolin MDI does not work, Pro Air works best Current Medications Current Outpatient Prescriptions on File Prior to Visit: atenolol (TENORMIN) 50 mg tablet Take 0.5 tablets by mouth once daily. amLODIPine (NORVASC) 10 mg tablet Take 1 tablet by mouth once daily. loratadine (CLARITIN) 10 mg tablet Take 1 tablet by mouth once daily. busPIRone (BUSPAR) 5 mg tablet Take 1 tablet by mouth three times daily. amiodarone (PACERONE) 200 mg tablet Take 1 tablet by mouth once daily. potassium chloride ER (K-DUR, KLOR-CON) 20 mEq tablet Take 1 tablet by mouth once daily. magnesium oxide (MAG-OX) 400 mg (241.3 mg magnesium) tablet Take 1 tablet by mouth once daily. meclizine (ANTIVERT) 12.5 mg tab Take 1 tablet by mouth three times daily as needed (dizziness). nystatin-triamcinolone (MYCOLOG II) cream Apply 1 application to affected area twice daily as needed. Apply to affected area for 2 weeks linagliptin (TRADJENTA) 5 mg tab Take 1 tablet by mouth once daily. ALPRAZolam (XANAX) 0.25 mg tablet Take 1 tablet by mouth every 6 hours as needed for Anxiety for up to 20 doses. amoxicillin (POLYMOX, AMOXIL) 500 mg capsule Take 1 capsule by mouth three times daily for 30 doses. ranolazine ER (RANEXA) 500 mg 12 hr tablet Take 1 tablet by mouth twice daily. COMPOUNDED PRESCRIPTION HOME BP MONITOR, DX: HTN LABILE Dx: Hypertension goal BP (blood pressure) < 140/90 ICD-10 I10 COMPOUNDED PRESCRIPTION Home scale for daily weight check. Dx: CHF-diastolic >Nebulizer For Home Nebulizer for home use. Diagnosis: COPD ICD-10 J42 guaiFENesin (MUCINEX) 600 mg 12 hr tablet Take 2 tablets by mouth twice daily. tiZANidine (ZANAFLEX) 4 mg tablet take 1 tablet by mouth at bedtime if needed ferrous sulfate 325 mg (65 mg iron) tablet take 1 tablet by mouth twice a day with meals isosorbide mononitrate ER (IMDUR) 30 mg 24 hr tablet Take 4 tablets by mouth once daily. atenolol (TENORMIN) 100 mg tablet Take 0.5 tablets by mouth once daily. warfarin (COUMADIN) 6 mg tablet 3 mg Tues/th and 6 mg all other days or as directed amLODIPine (NORVASC) 5 mg tablet Take 2 tablets by mouth once daily. aspirin, enteric coated (ASPIRIN, ENTERIC COATED) 81 mg EC tablet Take 1 tablet by mouth once daily. lansoprazole (PREVACID) 30 mg capsule take 1 capsule by mouth every morning AT 6 AM and every evening AT 4 PM before meals losartan (COZAAR) 100 mg tablet take 1 tablet by mouth once daily nitroglycerin sublingual (NITROSTAT) 0.4 mg SL tablet Dissolve 1 tablet under the tongue as needed. DISSOLVE ON TONGUE FOR CHEST PAIN. IF NO PAIN RELIEF, CALL 911 atorvastatin (LIPITOR) 20 mg tablet take 1 tablet by mouth once daily metFORMIN ER (GLUCOPHAGE XR) 500 mg 24 hr tablet take 2 tablets by mouth twice a day oxybutynin ER (DITROPAN XL) 10 mg 24 hr tablet take 1 tablet by mouth once daily mupirocin (BACTROBAN) 2 % ointment Apply 1 application to affected area three times daily. Location: Inside nose albuterol HFA (PROAIR HFA) 90 mcg/actuation inhaler Inhale 2 Puffs as instructed every 4 hours as needed. polyethylene glycol 3350 (MIRALAX, GLYCOLAX) 17 gram/dose powder Take 17 g by mouth once daily. dissolve in water. warfarin (COUMADIN) 1 mg tablet Take 1 tablet by mouth once daily. glipiZIDE XL (GLUCOTROL XL) 10 mg 24 hr tablet Take 1 tablet by mouth once daily. diclofenac sodium (VOLTAREN) 1 % topical gel Apply 2 g to affected area twice daily as needed. Both heels Leg Brace (KNEE SUPPORT BRACE) misc 1 Each continuous. DX: S89.92XA furosemide (LASIX) 20 mg tablet take 1 tablet by mouth once daily Leg Brace (KNEE SUPPORT BRACE) misc 1 Each continuous. warfarin (COUMADIN) 6 mg tablet Take 7 mg Daily nystatin (MYCOSTATIN) cream Apply 1 application to affected area twice daily. Groin as needed traZODone (DESYREL) 50 mg tablet Take 1 tablet by mouth daily at bedtime. albuterol (PROVENTIL) 5 mg/mL nebu Inhale 0.5 mL as instructed one time only for 1 dose. 1 DOSE NOW - BACK OFFICE. PLACE 0.5 ML PER DROPPER AND 2.5 ML OF NORMAL SALINE INTO RESERVOIR. COMPOUNDED PRESCRIPTION NEBULIZER SUPPLIES, MEDICATION CUP, TUBING FOR USE WITH NEBULIZER MACHINE DX J40.0 No current facility-administered medications on file prior to visit. 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 Ex-spouse of 38 years also a smoker. Alcohol use: No Drug use: No Sexual activity: No Comment: Social History Narrative Born [place], moved [facility] 1958 age 9. 4 years in current home[place]. Dry basement. Electric baseboard heat. No central A/C, uses window units. No pets in home currently. Bird and dog not replaced at deaths 13 years ago. SSI and medical card. Watches 2 grandkids, 01/07 in 2012. Review of Symptoms REVIEW OF SYSTEMS GENERAL: No weight loss, malaise or fevers RESPIRATORY: Negative for cough, hemoptysis, wheezing, COPD, dyspnea or shortness of breath CARDIOVASCULAR: Negative for chest pain, leg swelling, hypertension, CHF or palpitations GI: No nausea, vomiting, or diarrhea SKIN: Negative for lesions, rash, and itching EXAM: BP 136/60 Pulse 68 Resp 16 Wt 103 kg (227 lb) SpO2 96% BMI 40.21 kg/m? General Appearance: Well appearing, alert, in no acute distress, well-hydrated, well nourished.. Skin: Skin color, texture, turgor normal, no suspicious rashes or lesions. Lungs: lungs clear to auscultation. No wheezing, rhonchi, rales. Heart: RRR without murmur, gallop, or rubs. No ectopy. Abdomen: Normal abdominal exam, Abdomen soft, non-tender. Bowel sounds normal. No masses, organomegaly. Extremities: No deformities, edema, skin discoloration, clubbing or cyanosis. Good capillary refill. . Health Maintenance List DILATED RETINAL EXAM due on 03/10/2018 JEFF/ARB MED PRESCRIBED due on 05/25/2018 STATIN MED ADHERENCE due on 05/25/2018 DIABETES MED ADHERENCE due on 05/25/2018 MAMMOGRAM due on 06/16/2018 LDL CHOLESTEROL due on 06/16/2018 DIABETIC FOOT EXAM due on 06/28/2018 HBA1C due on 07/15/2018 URINE ALBUMIN:CREATININE RATIO due on 01/15/2019 ANNUAL PCP TEAM CHRONIC DISEASE VISIT due on 01/24/2019 BP CONTROLLED (<130/80) due on 01/24/2019 FECAL OCCULT BLOOD due on 01/30/2019 DTAP,TDAP,TD(2 - Td) due on 03/08/2021 BONE DENSITY Completed ADULT PREVNAR-13 Completed INFLUENZA Completed HEPATITIS C SCREENING Completed PNEUMOVAX AGE 65 AND OVER WITH 5YR LOOKBACK Completed ASSESSMENT/PLAN: 1. Unstable angina (HCC) - ICD9: 411.1, ICD10: I20.0 (primary diagnosis) Asymptomatic on current regimen. F/u with cardiology as recommended. 2. Anxiety - ICD9: 300.00, ICD10: F41.9 Controlled on current regimen. Continue buspar and xanax as prescribed. 3. Acute cystitis with hematuria - ICD9: 595.0, ICD10: N30.01 Symptoms resolved. Finish course of abx. 4. Cough - ICD9: 786.2, ICD10: R05 Improving with OTC mucinex. To call with changing/worsening symptoms. 5. Hospital discharge follow-up - ICD9: V67.59, ICD10: Z09 Patient doing well after discharge. Discussed scheduling f/u with cardiac rehab with PCC Himanshu Aquino. music coordinator will call later this week to help set up. Keri Gamez MD PROGRESS Observed: 05/01/2018 Status: COMPLETED Source: ARARAT 3:54 PM [facility] REPOSITORY HNO ID: [id number] Author: Brenda Darby RN Service: (none) Author Type: (none) Type: Progress Notes Filed: 05/01/2018 3:55 PM Note Text: patient had inr completed at [facility] patients inr is 3.4 (patients inr range is 3.0-4.0) patient is currently taking n3mg Tues,Thurs and 6mg all other days patients last dose change unknown as patient was in the hospital and discharged on this dosing patient has had a change in medication and pt is on an antibiotic and no missed doses and no change in diet Advised patient to continue on the same dose(s) and that they would only be contacted regarding dosage and follow up instructions after review with provider, if a change is needed. Written instructions given and patient verbalized understanding. Presently scheduled in 2 weeks (05/15/18) for follow up INR. [id number] Observed: 05/01/2018 Status: COMPLETED Source: ARARAT 12:00 AM [facility] REPOSITORY Patient Outreach (FAMPWS) FLAVIA CASE ([id number]) 1950 F Date Time Provider Department 05/01/18 HIMANSHU AQUINORN) FAMPWS During your visit today, we recorded the following information about you: Himanshu Aquino RN 05/01/2018 5:33 PM Signed PRIMARY CARE COORDINATION IN OFFICE VISIT WITH PCP Patient has been identified by name and date of . PCP Assessment/Plan: Reviewed PCP plan with patient using Teach Back Lengthy discussion regarding advanced directives and discussing pt's wishes for cardiac treatment with pt's family Patient completed Advanced Directives at [facility]. Asked pt to bring copies in to next appt to be scanned, verbalized understanding PCC Plan of Care: Patient concerns: Patient wants to have cardiac treatment done to open heart vessel before she has more chest pain. Patient is not afraid of dying but states she doesn't want to leave her family and she is worried about the pain and suffering she would go through during the dying process. Patient goals: Patient will follow up with Dr. Lei and will have treatment completed before she begins to have more chest pain Next Office Visit: 06/29/2018 Plan For Next Call: One week Himanshu Aquino RN May 01, 2018 Himanshu Aquino RN 05/02/2018 10:51 AM Signed PRIMARY CARE COORDINATION QUICK NOTE Provider Action/FYI FYI Patient identified by name and date . TC to Micaela at [facility] Cardiac Rehab, informed pt received a call from rehab stating Dr. Lei wanted pt to start rehab. Micaela states patient would need to come in for an interview/assessment in a week or two then they decide if she is appropriate for rehab. Informed pt doesn't want to start the rehab process until after she sees Dr. Lei, states she will let Tom know. Allergies As of Date: 05/01/2018 Noted Allergy Reaction ADVAIR DISKUS (FLUTICASONE-SALMET*05/16/2011 14 - Other: See Comments Comments: CHEST PAIN ASA (SALICYLATES) 05/10/2005 16 - Unknown Comments: patient taking coumadin - on low dose ASA for valve dysfunction CEPHALEXIN 02/21/2008 Comments: Stomach pains-pt. ended up in hospital EKG PADS [Other] 05/10/2005 Comments: adhesive LISINOPRIL 07/03/2014 3 - Cough NEXIUM (ESOMEPRAZOLE MAGNESIUM) 01/26/2016 14 - Other: See Comments Comments: Ineffective OMEPRAZOLE 01/26/2016 14 - Other: See Comments Comments: Ineffective TUDORZA PRESSAIR (ACLIDINIUM BROM*01/26/2016 8 - GI Upset VENTOLIN (ALBUTEROL SULFATE) 10/24/2017 14 - Other: See Comments Comments: Severe shaking, palpitations VENTOLIN (ALBUTEROL) 01/26/2016 14 - Other: See Comments Comments: Ventolin MDI does not work, Pro Air works best Date Reviewed: 05/01/2018 Reviewed by: Pepito Li Ma - Fully Assessed Reason for Visit: Crown Buffer-In Office Visit [4194] Prescriptions as of 05/01/2018 Sig: ATENOLOL 50 MG TABLET Take 0.5 tablets by mouth onc* AMLODIPINE 10 MG TABLET Take 1 tablet by mouth once d* LORATADINE 10 MG TABLET Take 1 tablet by mouth once d* BUSPIRONE 5 MG TABLET Take 1 tablet by mouth three * AMIODARONE 200 MG TABLET Take 1 tablet by mouth once d* POTASSIUM CHLORIDE ER 20 MEQ * Take 1 tablet by mouth once d* MAGNESIUM OXIDE 400 MG (241.3* Take 1 tablet by mouth once d* MECLIZINE 12.5 MG TABLET Take 1 tablet by mouth three * NYSTATIN-TRIAMCINOLONE 100,00* Apply 1 application to affect* LINAGLIPTIN 5 MG TABLET Take 1 tablet by mouth once d* ALPRAZOLAM 0.25 MG TABLET Take 1 tablet by mouth every * AMOXICILLIN 500 MG CAPSULE Take 1 capsule by mouth three* RANOLAZINE ER 500 MG TABLET,E* Take 1 tablet by mouth twice * COMPOUNDED PRESCRIPTION HOME BP MONITOR, DX: HTN LABI* COMPOUNDED PRESCRIPTION Home scale for daily weight c* COMPOUNDED PRESCRIPTION Nebulizer for home use. Diagn* GUAIFENESIN ER 600 MG TABLET,* Take 2 tablets by mouth twice* X TIZANIDINE 4 MG TABLET take 1 tablet by mouth at bed* FERROUS SULFATE 325 MG (65 MG* take 1 tablet by mouth twice * ISOSORBIDE MONONITRATE ER 30 * Take 4 tablets by mouth once * ATENOLOL 100 MG TABLET Take 0.5 tablets by mouth onc* WARFARIN 6 MG TABLET 3 mg Tues/thurs and 6 mg all * AMLODIPINE 5 MG TABLET Take 2 tablets by mouth once * ASPIRIN 81 MG TABLET,DELAYED * Take 1 tablet by mouth once d* LANSOPRAZOLE 30 MG CAPSULE,DE* take 1 capsule by mouth every* LOSARTAN 100 MG TABLET take 1 tablet by mouth once d* NITROGLYCERIN 0.4 MG SUBLINGU* Dissolve 1 tablet under the t* ATORVASTATIN 20 MG TABLET take 1 tablet by mouth once d* METFORMIN ER 500 MG TABLET,EX* take 2 tablets by mouth twice* OXYBUTYNIN CHLORIDE ER 10 MG * take 1 tablet by mouth once d* MUPIROCIN 2 % TOPICAL OINTMENT Apply 1 application to affect* ALBUTEROL SULFATE HFA 90 MCG/* Inhale 2 Puffs as instructed * POLYETHYLENE GLYCOL 3350 17 G* Take 17 g by mouth once daily* X WARFARIN 1 MG TABLET Take 1 tablet by mouth once d* GLIPIZIDE ER 10 MG TABLET, EX* Take 1 tablet by mouth once d* DICLOFENAC 1 % TOPICAL GEL Apply 2 g to affected area tw* LEG BRACE 1 Each continuous. DX: S89.92* FUROSEMIDE 20 MG TABLET take 1 tablet by mouth once d* LEG BRACE 1 Each continuous. NYSTATIN 100,000 UNIT/GRAM TO* Apply 1 application to affect* X WARFARIN 6 MG TABLET Take 7 mg Daily TRAZODONE 50 MG TABLET Take 1 tablet by mouth daily * ALBUTEROL SULFATE CONCENTRATE* Inhale 0.5 mL as instructed o* COMPOUNDED PRESCRIPTION NEBULIZER SUPPLIES, MEDICATIO* Problem List As Of Date 05/01/2018 Noted Resolved AORTOCORONARY BYPASS STATUS [Z95.1] More... OVERWEIGHT [E66.9] 05/08/2015 ASHD (arteriosclerotic heart disease) [I25.10] INVALID FOR* More... DIABETES MELLITUS TYPE II-UNCOMPL [E11.9] INVALID FOR*02/12/2014 More... HYPERLIPIDEMIA NEC/NOS [E78.5] INVALID FOR*07/24/2015 More... Hematuria [599.7] INVALID FOR*07/24/2015 More... History of mechanical aortic valve replacement *INVALID FOR* More... Abdominal pain, unspecified site [R10.9] INVALID FOR*05/08/2015 Acute gastritis without mention of hemorrhage [*INVALID FOR*01/26/2016 Esophageal reflux [K21.9] INVALID FOR* More... Headache(784.0) [R51] INVALID FOR*01/26/2016 Bronchitis Recurrent [J40] INVALID FOR*03/21/2017 Hallux valgus (acquired) [M20.10] INVALID FOR*07/24/2015 Pain in limb [M79.609] INVALID FOR*01/26/2016 Goiter [E04.9] INVALID FOR* S/P AVR [Z95.2] INVALID FOR*01/26/2016 Multinodular thyroid [E04.2] INVALID FOR* Emphysema of lung (HCC) [J43.9] More... Hyperlipemia [E78.5] INVALID FOR* DM type 2 (diabetes mellitus, type 2) (HCC) [E1*INVALID FOR*05/08/2015 Hematuria [R31.9] INVALID FOR*10/23/2015 Smoking [F17.200] INVALID FOR*10/23/2015 Chronic anticoagulation [Z79.01] INVALID FOR* OAB (overactive bladder) [N32.81] INVALID FOR* More... Frequency of urination [R35.0] INVALID FOR*01/26/2016 Hypertension goal BP (blood pressure) < 140/90 *INVALID FOR* More... Diabetes mellitus type 2, uncontrolled, without*INVALID FOR*03/21/2017 More... Nicole rash of groin [B37.89] INVALID FOR* More... Stress at home [F43.9] INVALID FOR* Insomnia [G47.00] INVALID FOR* Financial difficulties [Z59.8] INVALID FOR* Obesity, Class III, BMI >= 40 (morbid obesity) *INVALID FOR* Hemoptysis [R04.2] INVALID FOR* More... 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 Eczema [L30.9] Diabetes mellitus (HCC) [E11.9] COPD (chronic obstructive pulmonary disease) (H* Diastolic CHF (HCC) [I50.30] Encounter Status:Closed by HIMANSHU AQUINO on 05/01/18 PROGRESS Observed: 04/30/2018 Status: COMPLETED Source: [facility] 5:17 PM [facility] REPOSITORY HNO ID: [id number] Author: Pepito Li Ma Service: (none) Author Type: (none) Type: Progress Notes Filed: 04/30/2018 5:17 PM Note Text: Orders faxed to [facility] along with face sheet and insurance cards. Pepito Li Ma PROGRESS Observed: 04/30/2018 Status: COMPLETED Source: AR[facility] 5:02 PM [facility] REPOSITORY HNO ID: [id number] Author: Himanshu Green) Sybil Service: (none) Author Type: Registered Nurse Type: Progress Notes Filed: 04/30/2018 5:11 PM Note Text: PRIMARY CARE COORDINATION QUICK NOTE Provider Action/FYI FYI Patient identified by name and date . TC to patient, informed Mucinex script was sent in along with refills. Instructed pt to continue Amoxicillin but if cough worsens, SOB or wheezing increases go to ER, verbalized understanding. Also informed [facility] will send scripts for BP, nebulizer and scale to [facility] [employer]. [facility] will check to see which ones are covered. Himanshu Aquino RN April 30, 2018 5:11 PM PROGRESS Observed: 04/30/2018 Status: COMPLETED Source: AR[facility] 3:29 PM [facility] REPOSITORY HNO ID: [id number] Author: Keri Mo) Vera Service: (none) Author Type: Physician Type: Progress Notes Filed: 04/30/2018 3:31 PM Note Text: meds updated and rx printed as requested. Removed discontinued medications. OK to take Mucinex OTC as directed on package for cough. Continue amoxicillin at this time for UTI. If cough worsens or she becomes more SOB, has increased wheezing should be seen immediately. PROGRESS Observed: 04/30/2018 Status: COMPLETED Source: [facility] 1:39 PM [facility] REPOSITORY HNO ID: [id number] Author: Himanshu Green) Sybil Service: (none) Author Type: Registered Nurse Type: Progress Notes Filed: 04/30/2018 2:45 PM Note Text: TRANSITION CARE MANAGEMENT (TCM) INITIAL CONTACT Provider Action/FYI: NOT A TCM Pt states pulse dropped to 50's yesterday and she called [facility]. Instructed to decrease atenolol 50 mg to 1/2 tablet Daily Pt has chest congestion, some SOB and slight wheezing and expectorating yellow mucous since hospital discharge. Hasn't used rescue inhaler, instructed to use with wheezing and SOB Pt concerned Amoxil for UTI will not help her URI. Appt scheduled for tomorrow Pt asking if she can take Mucinex or decongestant Pt wasn't instructed on when to get next INR. 04/25/18 INR 2.2 On same dose of insulin as pre-hospital PLEASE FILE MEDICATION UPDATES AND ORDERS PENDED: Meclizine and Loratadine Refills Home Scale, BP Monitor and Nebulizer printed scripts TC jeremias Mendez at [facility], instructed to fax scripts for medical supplies along with insurance card copy and she will [facility] Initial contact with patient post discharge, spoke to Patient. Patient identified by name and . SUMMARY: -Pt discharged from [facility] on 04/25. -Follow up appointment on 05/01. -Medication review done with patient. -Admitted for: Unstable Angina/ACS Hematuria Cystitis due to E. Coli CONCERNS: Pt has chest congestion, some SOB and slight wheezing since hospital discharge. Hasn't used rescue inhaler, instructed to use with wheezing and SOB Pt concerned Amoxil for UTI will not help her URI. Appt scheduled for tomorrow NEW MEDICATIONS: Alprazolam [Xanax] 0.25 mg PO Q6H PRN #20 tab PRN Reason: panic attack Amoxicillin [Amoxil] 500 mg PO Q8H #30 Ranolazine [Ranexa] 500 mg PO BID #60 Amiodarone HCl [Cordarone] 200 mg PO DAILY #30 tablet 04/13/18 Linagliptin [Tradjenta] 5 mg PO DAILY #30 tablet 04/13/18 Magnesium Oxide [Mag-Ox 400] 400 mg PO DAILYCM #30 tablet Potassium Chloride [K-Dur] 20 meq PO DAILYCM #30 tablet busPIRone [Buspar] 5 mg PO TID #90 tablet MEDICATION CHANGES: Isosorbide Mononitrate (Imdur) 120 mg PO Daily #30 tablet MEDS HELD/DISCONTINUED: sertraline (ZOLOFT) 100 mg 1 tablet by mouth once daily BRIEF HOSPITAL COURSE: COPIED FROM [facility]: Procedures: Cardiac catheterization - [place] multivessel coronary artery disease, SHELBY to LAD patent, SVG to LCx occluded, SVG to RCA occluded, aortic valve: Mechanical bileaflet opening and closing appropriately. Attempt was made to PTCA the RCA but the vessel was too heavily calcified and the procedure was not successful Presented to the ED at [facility] on 04/18/2018 complaining of chest pain radiating into both sides of her neck. It was a associated with shortness of breath and diaphoresis. Earlier in month she had a stress test that was negative for ischemia. She has had 2 recent admissions for paroxysmal atrial fibrillation with rapid ventricular response. Troponin x3 was less than 0.015. She was seen in consultation by Dr. Nieves Lei who felt that since this was her third admission in less than 30 days for chest pain that she should have a cardiac catheterization. Pt agreeable. Cardiac catheterization was done on 04/20/2018 and revealed a 100% occlusion of the saphenous vein graft to the RCA, occluded left circumflex saphenous vein graft and a patent SHELBY to the LAD. The AV was a bileaflet valve which opened and closed appropriately. She was referred for PCI but the RCA was heavily calcified and could not be successfully dilated. The preprocedure stenosis was 95- 100% and post procedure the RCA had a 80% stenosis. She was started on Ranexa. INR at admission was 4 and she had gross hematuria. Warfarin was held and she was started on a Heparin drip when the INR dropped below 2. Seen in consult by Dr. Mahajan from urology. The urine cleared and the aden was removed. The patient is going to follow up with Dr. Mahajan in the office for renal imaging for hematuria and possible cystoscopy. Warfarin was restarted and a heparin infusion was used to bridge. She had no further hematuria. She began c/o urinary frequency and a straight cath was done and the urine was sent for culture which grew a saunders- sensitive E. Coli. She was started on Amoxil 500 mg TID. Discharged home on 04/25/18. She will be continued on Buspar which has significantly improved her anxiety and she was given a RX for Xanax 0.25 mg and will take 1 every 4 hours as needed for panic attack. She was given literature at [place] about anxiety disorders, panic attacks and medical and non-pharmacologic treatments for anxiety with panic attacks. She will follow-up with Dr. Gamez in the office in 1-[address] Lei in 2-3 weeks. She is also going to follow-up with Dr. Mahajan in the future. Himanshu Aquino RN CNPTOUTREACH Observed: 04/30/2018 Status: COMPLETED Source: [facility] 12:00 AM [facility] REPOSITORY Patient Outreach (FAMPWS) FLAVIA CASE ([id number]) 1950 F Date Time Provider Department 04/30/18 HIMANSHU AQUINO (RN) FAMPWS During your visit today, we recorded the following information about you: Himanshu Aquino RN 04/30/2018 2:45 PM Addendum TRANSITION CARE MANAGEMENT (TCM) INITIAL CONTACT Provider Action/FYI: NOT A TCM Pt states pulse dropped to 50's yesterday and she called [facility]. Instructed to decrease atenolol 50 mg to 1/2 tablet Daily Pt has chest congestion, some SOB and slight wheezing and expectorating yellow mucous since hospital discharge. Hasn't used rescue inhaler, instructed to use with wheezing and SOB Pt concerned Amoxil for UTI will not help her URI. Appt scheduled for tomorrow Pt asking if she can take Mucinex or decongestant Pt wasn't instructed on when to get next INR. 04/25/18 INR 2.2 On same dose of insulin as pre-hospital PLEASE FILE MEDICATION UPDATES AND ORDERS PENDED: Meclizine and Loratadine Refills Home Scale, BP Monitor and Nebulizer printed scripts TC to [facility], instructed to fax scripts for medical supplies along with insurance card copy and she will check if they are covered by [employer]. Initial contact with patient post discharge, spoke to Patient. Patient identified by name and . SUMMARY: -Pt discharged from [facility] on 04/25. -Follow up appointment on 05/01. -Medication review done with patient. -Admitted for: Unstable Angina/ACS Hematuria Cystitis due to E. Coli CONCERNS: Pt has chest congestion, some SOB and slight wheezing since hospital discharge. Hasn't used rescue inhaler, instructed to use with wheezing and SOB Pt concerned Amoxil for UTI will not help her URI. Appt scheduled for tomorrow NEW MEDICATIONS: Alprazolam [Xanax] 0.25 mg PO Q6H PRN #20 tab PRN Reason: panic attack Amoxicillin [Amoxil] 500 mg PO Q8H #30 Ranolazine [Ranexa] 500 mg PO BID #60 Amiodarone HCl [Cordarone] 200 mg PO DAILY #30 tablet 04/13/18 Linagliptin [Tradjenta] 5 mg PO DAILY #30 tablet 18 Magnesium Oxide [Mag-Ox 400] 400 mg PO DAILYCM #30 tablet Potassium Chloride [K-Dur] 20 meq PO DAILYCM #30 tablet busPIRone [Buspar] 5 mg PO TID #90 tablet MEDICATION CHANGES: Isosorbide Mononitrate (Imdur) 120 mg PO Daily #30 tablet MEDS HELD/DISCONTINUED: sertraline (ZOLOFT) 100 mg 1 tablet by mouth once daily BRIEF HOSPITAL COURSE: COPIED FROM [facility]: Procedures: Cardiac catheterization - Chitina multivessel coronary artery disease, SHELBY to LAD patent, SVG to LCx occluded, SVG to RCA occluded, aortic valve: Mechanical bileaflet opening and closing appropriately. Attempt was made to PTCA the RCA but the vessel was too heavily calcified and the procedure was not successful Presented to the ED at [facility] on 04/18/2018 complaining of chest pain radiating into both sides of her neck. It was a associated with shortness of breath and diaphoresis. Earlier in month she had a stress test that was negative for ischemia. She has had 2 recent admissions for paroxysmal atrial fibrillation with rapid ventricular response. Troponin x3 was less than 0.015. She was seen in consultation by Dr. Nieves Lei who felt that since this was her third admission in less than 30 days for chest pain that she should have a cardiac catheterization. Pt agreeable. Cardiac catheterization was done on 04/20/2018 and revealed a 100% occlusion of the saphenous vein graft to the RCA, occluded left circumflex saphenous vein graft and a patent SHELBY to the LAD. The AV was a bileaflet valve which opened and closed appropriately. She was referred for PCI but the RCA was heavily calcified and could not be successfully dilated. The preprocedure stenosis was 95-100% and post procedure the RCA had a 80% stenosis. She was started on Ranexa. INR at admission was 4 and she had gross hematuria. Warfarin was held and she was started on a Heparin drip when the INR dropped below 2. Seen in consult by Dr. Mahajan from urology. The urine cleared and the aden was removed. The patient is going to follow up with Dr. Mahajan in the office for renal imaging for hematuria and possible cystoscopy. Warfarin was restarted and a heparin infusion was used to bridge. She had no further hematuria. She began c/o urinary frequency and a straight cath was done and the urine was sent for culture which grew a saunders-sensitive E. Coli. She was started on Amoxil 500 mg TID. Discharged home on 04/25/18. She will be continued on Buspar which has significantly improved her anxiety and she was given a RX for Xanax 0.25 mg and will take 1 every 4 hours as needed for panic attack. She was given literature at [place] about anxiety disorders, panic attacks and medical and non-pharmacologic treatments for anxiety with panic attacks. She will follow-up with Dr. Gamez in the office in 1-[address] Lei in 2-3 weeks. She is also going to follow-up with Dr. Mahajan in the future. KOKO Hopson MD 04/30/2018 3:31 PM Signed meds updated and rx printed as requested. Removed discontinued medications. OK to take Mucinex OTC as directed on package for cough. Continue amoxicillin at this time for UTI. If cough worsens or she becomes more SOB, has increased wheezing should be seen immediately. Himanshu Aquino RN 04/30/2018 5:11 PM Signed PRIMARY CARE COORDINATION QUICK NOTE Provider Action/FYI FYI Patient identified by name and date . TC to patient, informed Mucinex script was sent in along with refills. Instructed pt to continue Amoxicillin but if cough worsens, SOB or wheezing increases go to ER, verbalized understanding. Also informed [facility] will send scripts for BP, nebulizer and scale to [facility] [employer]. [facility] will check to see which ones are covered. Himanshu Aquino RN April 30, 2018 5:11 PM Pepito Li Ma 04/30/2018 5:17 PM Signed Orders faxed to [facility] along with face sheet and insurance cards. Pepito Li Ma Allergies As of Date: 04/30/2018 Noted Allergy Reaction ADVAIR DISKUS (FLUTICASONE-SALMET*05/16/2011 14 - Other: See Comments Comments: CHEST PAIN ASA (SALICYLATES) 05/10/2005 16 - Unknown Comments: patient taking coumadin - on low dose ASA for valve dysfunction CEPHALEXIN 02/21/2008 Comments: Stomach pains-pt. ended up in hospital EKG PADS [Other] 05/10/2005 Comments: adhesive LISINOPRIL 07/03/2014 3 - Cough NEXIUM (ESOMEPRAZOLE MAGNESIUM) 01/26/2016 14 - Other: See Comments Comments: Ineffective OMEPRAZOLE 01/26/2016 14 - Other: See Comments Comments: Ineffective TUDORZA PRESSAIR (ACLIDINIUM BROM*01/26/2016 8 - GI Upset VENTOLIN (ALBUTEROL SULFATE) 10/24/2017 14 - Other: See Comments Comments: Severe shaking, palpitations VENTOLIN (ALBUTEROL) 01/26/2016 14 - Other: See Comments Comments: Ventolin MDI does not work, Pro Air works best Date Reviewed: 01/24/2018 Reviewed by: Mary Weber - Fully Assessed Reason for Visit: [facility] Follow Up [3610] Cmt: Not A TCM Primary Visit Diagnosis:Urine culture positive for Escherichia coli Other Visit Diagnoses:Dizziness and giddiness [R42] Chest pain, unspecified type [R07.9] Hypertension goal BP (blood pressure) < 140/90 [I10] Anxiety [F41.9] Panic attacks [F41.0] ACS (acute coronary syndrome) (HCC) [I24.9] Unstable angina (HCC) [I20.0] Chronic bronchitis, unspecified chronic bronchitis type (HCC) [J42] Order(s):atenolol (TENORMIN) 50 mg tabletTake 0.5 tablets by mouth once daily.Disp: Rfl: amLODIPine (NORVASC) 10 mg tabletTake 1 tablet by mouth once daily.Disp: Rfl: loratadine (CLARITIN) 10 mg tabletTake 1 tablet by mouth once daily.Disp: 75 tabletRfl: 0 busPIRone (BUSPAR) 5 mg tabletTake 1 tablet by mouth three times daily.Disp: Rfl: amiodarone (PACERONE) 200 mg tabletTake 1 tablet by mouth once daily.Disp: Rfl: potassium chloride ER (K-DUR, KLOR-CON) 20 mEq tabletTake 1 tablet by mouth once daily.Disp: Rfl: magnesium oxide (MAG-OX) 400 mg (241.3 mg magnesium) tabletTake 1 tablet by mouth once daily.Disp: Rfl: meclizine (ANTIVERT) 12.5 mg tabTake 1 tablet by mouth three times daily as needed (dizziness).Disp: 30 tabletRfl: 0 nystatin-triamcinolone (MYCOLOG II) creamApply 1 application to affected area twice daily as needed. Apply to affected area for 2 weeksDisp: Rfl: linagliptin (TRADJENTA) 5 mg tabTake 1 tablet by mouth once daily.Disp: 30 tabletRfl: 0 ALPRAZolam (XANAX) 0.25 mg tabletTake 1 tablet by mouth every 6 hours as needed for Anxiety for up to 20 doses.Disp: 20 tabletRfl: 0 amoxicillin (POLYMOX, AMOXIL) 500 mg capsuleTake 1 capsule by mouth three times daily for 30 doses.Disp: 30 capsuleRfl: 0 ranolazine ER (RANEXA) 500 mg 12 hr tabletTake 1 tablet by mouth twice daily.Disp: Rfl: COMPOUNDED PRESCRIPTIONHOME BP MONITOR, DX: HTN LABILE Dx: Hypertension goal BP (blood pressure) < 140/90 ICD- 10 [id number]: 1 EachRfl: 0 COMPOUNDED PRESCRIPTIONHome scale for daily weight check. Dx: CHF-diastolicDisp: 1 DeviceRfl: 0 >Nebulizer For HomeNebulizer for home use. Diagnosis: COPD ICD-10 [id number]: 1 EachRfl: 0 guaiFENesin (MUCINEX) 600 mg 12 hr tabletTake 2 tablets by mouth twice daily.Disp: 40 tabletRfl: 0 Prescriptions as of 04/30/2018 Sig: LORATADINE 10 MG TABLET Take 1 tablet by mouth once d* MECLIZINE 12.5 MG TABLET Take 1 tablet by mouth three * FERROUS SULFATE 325 MG (65 MG* take 1 tablet by mouth twice * ISOSORBIDE MONONITRATE ER 30 * Take 4 tablets by mouth once * WARFARIN 6 MG TABLET 3 mg Tues/thurs and 6 mg all * ASPIRIN 81 MG TABLET,DELAYED * Take 1 tablet by mouth once d* LANSOPRAZOLE 30 MG CAPSULE,DE* take 1 capsule by mouth every* LOSARTAN 100 MG TABLET take 1 tablet by mouth once d* NITROGLYCERIN 0.4 MG SUBLINGU* Dissolve 1 tablet under the t* ATORVASTATIN 20 MG TABLET take 1 tablet by mouth once d* METFORMIN ER 500 MG TABLET,EX* take 2 tablets by mouth twice* OXYBUTYNIN CHLORIDE ER 10 MG * take 1 tablet by mouth once d* MUPIROCIN 2 % TOPICAL OINTMENT Apply 1 application to affect* ALBUTEROL SULFATE HFA 90 MCG/* Inhale 2 Puffs as instructed * POLYETHYLENE GLYCOL 3350 17 G* Take 17 g by mouth once daily* WARFARIN 1 MG TABLET Take 1 tablet by mouth once d* GLIPIZIDE ER 10 MG TABLET, EX* Take 1 tablet by mouth once d* DICLOFENAC 1 % TOPICAL GEL Apply 2 g to affected area tw* LEG BRACE 1 Each continuous. DX: S89.92* FUROSEMIDE 20 MG TABLET take 1 tablet by mouth once d* LEG BRACE 1 Each continuous. ATENOLOL 50 MG TABLET Take 0.5 tablets by mouth onc* AMLODIPINE 10 MG TABLET Take 1 tablet by mouth once d* BUSPIRONE 5 MG TABLET Take 1 tablet by mouth three * AMIODARONE 200 MG TABLET Take 1 tablet by mouth once d* POTASSIUM CHLORIDE ER 20 MEQ * Take 1 tablet by mouth once d* MAGNESIUM OXIDE 400 MG (241.3* Take 1 tablet by mouth once d* NYSTATIN-TRIAMCINOLONE 100,00* Apply 1 application to affect* LINAGLIPTIN 5 MG TABLET Take 1 tablet by mouth once d* ALPRAZOLAM 0.25 MG TABLET Take 1 tablet by mouth every * AMOXICILLIN 500 MG CAPSULE Take 1 capsule by mouth three* RANOLAZINE ER 500 MG TABLET,E* Take 1 tablet by mouth twice * COMPOUNDED PRESCRIPTION HOME BP MONITOR, DX: HTN LABI* COMPOUNDED PRESCRIPTION Home scale for daily weight c* COMPOUNDED PRESCRIPTION Nebulizer for home use. Diagn* GUAIFENESIN ER 600 MG TABLET,* Take 2 tablets by mouth twice* TIZANIDINE 4 MG TABLET take 1 tablet by mouth at bed* ATENOLOL 100 MG TABLET Take 0.5 tablets by mouth onc* AMLODIPINE 5 MG TABLET Take 2 tablets by mouth once * WARFARIN 6 MG TABLET Take 7 mg Daily NYSTATIN 100,000 UNIT/GRAM TO* Apply 1 application to affect* TRAZODONE 50 MG TABLET Take 1 tablet by mouth daily * ALBUTEROL SULFATE CONCENTRATE* Inhale 0.5 mL as instructed o* COMPOUNDED PRESCRIPTION NEBULIZER SUPPLIES, MEDICATIO* Medication notes this encounter TIZANIDINE 4 MG TABLET >> Hiamnshu Aquino RN 04/30/2018 11:49 AM >> HIMANSHU AQUINO Apr 30, 2018 11:49 AM Patient hasn't taken for a while SERTRALINE 100 MG TABLET >> Himanshu Aquino RN 04/30/2018 11:54 AM >> SYBIL HIMANSHU [facility] Apr 30, 2018 11:54 AM Discontinued ISOSORBIDE MONONITRATE ER 30 MG TABLET,EXTENDED RELEASE 24 HR >> Himanshu Aquino RN 04/30/2018 11:56 AM >> HIMANSHU AQUINO [facility] Apr 30, 2018 11:56 AM Duplicate Entry Problem List As Of Date 04/30/2018 Noted Resolved AORTOCORONARY BYPASS STATUS [Z95.1] More... OVERWEIGHT [E66.9] 05/08/2015 ASHD (arteriosclerotic heart disease) [I25.10] INVALID FOR* More... DIABETES MELLITUS TYPE II-UNCOMPL [E11.9] INVALID FOR*02/12/2014 More... HYPERLIPIDEMIA NEC/NOS [E78.5] INVALID FOR*07/24/2015 More... Hematuria [599.7] INVALID FOR*07/24/2015 More... History of mechanical aortic valve replacement *INVALID FOR* More... Abdominal pain, unspecified site [R10.9] INVALID FOR*05/08/2015 Acute gastritis without mention of hemorrhage [*INVALID FOR*01/26/2016 Esophageal reflux [K21.9] INVALID FOR* More... Headache(784.0) [R51] INVALID FOR*01/26/2016 Bronchitis Recurrent [J40] INVALID FOR*03/21/2017 Hallux valgus (acquired) [M20.10] INVALID FOR*07/24/2015 Pain in limb [M79.609] INVALID FOR*01/26/2016 Goiter [E04.9] INVALID FOR* S/P AVR [Z95.2] INVALID FOR*01/26/2016 Multinodular thyroid [E04.2] INVALID FOR* Emphysema of lung (HCC) [J43.9] More... Hyperlipemia [E78.5] INVALID FOR* DM type 2 (diabetes mellitus, type 2) (HCC) [E1*INVALID FOR*05/08/2015 Hematuria [R31.9] INVALID FOR*10/23/2015 Smoking [F17.200] INVALID FOR*10/23/2015 Chronic anticoagulation [Z79.01] INVALID FOR* OAB (overactive bladder) [N32.81] INVALID FOR* More... Frequency of urination [R35.0] INVALID FOR*01/26/2016 Hypertension goal BP (blood pressure) < 140/90 *INVALID FOR* More... Diabetes mellitus type 2, uncontrolled, without*INVALID FOR*03/21/2017 More... Nicole rash of groin [B37.89] INVALID FOR* More... Stress at home [F43.9] INVALID FOR* Insomnia [G47.00] INVALID FOR* Financial difficulties [Z59.8] INVALID FOR* Obesity, Class III, BMI >= 40 (morbid obesity) *INVALID FOR* Hemoptysis [R04.2] INVALID FOR* More... 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 Eczema [L30.9] Diabetes mellitus (HCC) [E11.9] COPD (chronic obstructive pulmonary disease) (H* Diastolic CHF (HCC) [I50.30] Prescriptions ordered this encounter Disp Refills Start End ATENOLOL 50 MG TABLET 04/30/2018 Class: Med Update Route: ORAL Sig: Take 0.5 tablets by mouth once daily. AMLODIPINE 10 MG TABLET 04/30/2018 Class: Med Update Route: ORAL Sig: Take 1 tablet by mouth once daily. LORATADINE 10 MG TABLET 75 t* 0 04/30/2018 Class: Med Update Route: ORAL Sig: Take 1 tablet by mouth once daily. BUSPIRONE 5 MG TABLET 04/30/2018 Class: Med Update Route: ORAL Sig: Take 1 tablet by mouth three times daily. AMIODARONE 200 MG TABLET 04/30/2018 Class: Med Update Route: ORAL Sig: Take 1 tablet by mouth once daily. POTASSIUM CHLORIDE ER 20 MEQ TABLET,* 04/30/2018 Class: Med Update Route: ORAL Sig: Take 1 tablet by mouth once daily. MAGNESIUM OXIDE 400 MG (241.3 MG MAG* 04/30/2018 Class: Med Update Route: ORAL Sig: Take 1 tablet by mouth once daily. MECLIZINE 12.5 MG TABLET 30 t* 0 04/30/2018 Class: Med Update Route: ORAL Sig: Take 1 tablet by mouth three times daily as needed (dizziness). NYSTATIN-TRIAMCINOLONE 100,000 UNIT/* 04/30/2018 Class: Med Update Route: TOPICAL Sig: Apply 1 application to affected area twice daily as needed. Apply to affected area for 2 weeks LINAGLIPTIN 5 MG TABLET 30 t* 0 04/30/2018 Class: Med Update Route: ORAL Sig: Take 1 tablet by mouth once daily. ALPRAZOLAM 0.25 MG TABLET 20 t* 0 04/30/2018 05/28/2018 Class: Med Update Route: ORAL Sig: Take 1 tablet by mouth every 6 hours as needed for Anxiety for up to 20 doses. AMOXICILLIN 500 MG CAPSULE 30 c* 0 04/30/2018 05/10/2018 Class: Med Update Route: ORAL Sig: Take 1 capsule by mouth three times daily for 30 doses. RANOLAZINE ER 500 MG TABLET,EXTENDED* 04/30/2018 Class: Med Update Route: ORAL Sig: Take 1 tablet by mouth twice daily. COMPOUNDED PRESCRIPTION 1 Ea* 0 04/30/2018 Class: Print RX Sig: HOME BP MONITOR, DX: HTN LABILE Dx: Hypertension goal BP (blood pressure) < 140/90 ICD-10 I10 COMPOUNDED PRESCRIPTION 1 De* 0 04/30/2018 Class: Print RX Sig: Home scale for daily weight check. Dx: CHF-diastolic COMPOUNDED PRESCRIPTION 1 Ea* 0 04/30/2018 Class: Print RX Sig: Nebulizer for home use. Diagnosis: COPD ICD-10 J42 GUAIFENESIN ER 600 MG TABLET, EXTEND* 40 t* 0 04/30/2018 Route: ORAL Sig: Take 2 tablets by mouth twice daily. Medications Discontinued During This Encounter loratadine (CLARITIN) 10 mg tablet 75 t* 0 03/05/2018 04/30/2018 Route: ORAL Sig: take 1 tablet by mouth once daily Disc: Reason for discontinue is not on file. meclizine (ANTIVERT) 12.5 mg tab 30 t* 0 11/03/2016 04/30/2018 Route: ORAL Sig: Take 1 tablet by mouth three times daily as needed (dizziness). Disc: Reason for discontinue is not on file. >Blood Pressure Cuff Home 1 Ea* 0 06/05/2015 04/30/2018 Class: Print RX Sig: HOME BP CUFF, DX: HTN LABILE Dx: i10 Disc: Reason for discontinue is not on file. COMPOUNDED PRESCRIPTION 1 De* 0 01/08/2018 04/30/2018 Class: Print RX Sig: Home scale for daily weight check. Dx: CHF-diastolic Disc: Reason for discontinue is not on file. sertraline (ZOLOFT) 100 mg tablet 90 t* 1 08/28/2017 04/30/2018 Sig: take 1 tablet by mouth once daily Disc: Reason for discontinue is not on file. isosorbide mononitrate ER (IMDUR) 30* 180 * 3 08/03/2017 04/30/2018 Class: Med Update Route: ORAL Sig: Take 3 tablets by mouth once daily. Disc: Reason for discontinue is not on file. FREESTYLE LITE STRIPS test strip 50 S* 11 07/31/2017 04/30/2018 Cmt: ICD 10 E11.9, Insulin: No Sig: TEST twice a day Disc: Reason for discontinue is not on file. FREESTYLE LANCETS 28 gauge misc 100 * 11 07/31/2017 04/30/2018 Sig: TEST twice a day Disc: Reason for discontinue is not on file. Encounter Status:Closed by HIMANSHU AQUINO on 04/30/18 DISCHARGE SUMMARY Observed: 04/25/2018 Status: F Source: [place] 2:49 PM [facility]POS[facility] Medical Records Department [address] [place] [address] Discharge Summary 04/25/18 1424 MR#: [id number] Acct: [id number] Name: FLAVIA CASE Monster Rep #: [id number] : 1950 68 From: Parvin Mcconnell DO PCP: Collin Gamez MD Status: ADM IN Location: [place] [id number] Discharge Date and Diagnosis - Problem List Patient Problems: Active and Suspected Problems Chest pain at rest (Acute) Chest pain (Acute) Date of Admission: 04/18/18 Date of Discharge: 04/25/18 - Primary Discharge Diagnosis Active and Suspected Problems unstable angina/ACS Hematuria Cystitis due to E. Coli - Secondary Discharge Diagnosis Chronic Problems HLD (hyperlipidemia) (Chronic) Moderate aortic stenosis (Chronic) Morbid obesity (Chronic) Paroxysmal atrial fibrillation with RVR (Chronic) H/O prosthetic aortic valve replacement (Chronic) 1994 CAD (coronary artery disease) (Chronic) Hx of CABG (Chronic) Type 2 diabetes mellitus (Chronic) Hypertension (Chronic) Chronic obstructive lung disease (Chronic) Hospital Course and Treatment Imaging Results: Clinical Impression(s) from Imaging Studies Chest X-Ray 04/18/18 02:50 IMPRESSION: Postoperative changes and mild cardiomegaly without evidence of acute cardiopulmonary disease. Electronically Signed: Brittany Barth MD at 3:12 EST , Service support , Dr. Jasmina Mahajan -urology Dr. Nieves [facility] Operations: None Procedures: Cardiac catheterization - [place] multivessel coronary artery disease, SHELBY to LAD patent, SVG to LCx occluded, SVG to RCA occluded, aortic valve: Mechanical bileaflet opening and closing appropriately. Attempt was made to PTCA the RCA but the vessel was too heavily calcified and the procedure was not successful Summary of Care Provided: Mrs Case is a 68 YO female with a PMH of DM II, CAD with hx of CABG, mechanical AVR,COPD, HTN, paroxysmal atrial fibrillation, chronic anticoagulation with warfarin, anxiety and obesity who presented to the emergency department at [facility] on 04/18/2018 complaining of chest pain radiating into both sides of her neck. It was a associated with shortness of breath and diaphoresis. Earlier in the month she had a stress test that was negative for ischemia. She has had 2 recent admissions for paroxysmal atrial fibrillation with rapid ventricular response. He was admitted to a monitored bed and serial cardiac enzymes were ordered. Troponin x3 was less than 0.015. She was seen in consultation by Dr. Nieves Lei who felt that since this was her third admission in less than 30 days for chest pain that she should have a cardiac catheterization. The patient was agreeable. Cardiac catheterization was done on 04/20/2018 and revealed a 100% occlusion of the saphenous vein graft to the RCA, occluded left circumflex saphenous vein graft and a patent SHELBY to the LAD. The AV was a bileaflet valve which opened and closed appropriately. She was referred for PCI but the RCA was heavily calcified and could not be successfully dilated. The preprocedure stenosis was 95-100% and post procedure the RCA had a 80% stenosis. She was started on Ranexa. The INR at admission was 4 and she had gross hematuria. Warfarin was held and she was started on a Heparin drip when the INR dropped below 2. she was seen in consult by Dr. Mahajan from urology. The urine cleared and the aden was removed. The patient is going to follow up with Dr. Mahajan in the office for renal imaging for hematuria and possible cystoscopy. Warfarin was restarted and a heparin infusion was used to bridge. She had no further hematuria. She began c/o urinary frequency and a straight cath was done and the urine was sent for culture which grew a saunders-sensitive E. Coli. She was started on Amoxil 500 mg TID. She was discharged home on 04/25/18. She will be continued on Buspar which has significantly improved her anxiety and she was given a RX for Xanax 0.25 mg and will take 1 every 4 hours as needed for panic attack. She was given literature at [place] about anxiety disorders, panic attacks and medical and non-pharmacologic treatments for anxiety with panic attacks. She will follow-up with Dr. Gamez in the office in 1-[address] Lei in 2-3 weeks. She is also going to follow-up with Dr. Mahajan in the future. GENERAL: alert, oriented X 3, Cooperative, NAD ORAL: moist mucosa, no mucosal lesions NECK: No JVD, supple, trachea midline LUNGS: CTA, symmetric chest expansion, no conversational dyspnea, not tachypneic, no accessory muscle use HEART: RRR, Normal S1 and S2, no rub, no gallop, she has a mechanical valve click at the second RICS ABDOMEN: soft, NT, ND, BS present, no guarding with palpation, obese EXTREMITIES: no edema, no cyanosis, no calf tenderness SKIN: No rashes, no breakdown NEUROLOGIC: no focal neurologic deficits PSYCH: appropriate, normal affect, pleasant This note was generated with Newsboundation software. It may contain incorrect words, spelling, and punctuation that were not noted in checking the note before signing. Patient Problems: Active and Suspected Problems Chest pain at rest (Acute) Chest pain (Acute) - Physical Exam Vital Signs Temp Pulse Resp BP Pulse Ox 97.9 F 69 18 132/56 H 95 04/25/18 08:16 04/25/18 11:17 04/25/18 08:16 04/25/18 08:16 04/25/18 08:16 Oxygen Flow Rate (L/min) 2 Oxygen Delivery Method Room Air Weight: 229 lb 15.074 oz Body Mass Index (BMI) 41.1 Intake and Output for Last 24 Hours Intake Total 2149.2 / 2149.2 2550 / 2550 1460 / 1460 Output Total 2275 / 2275 1500 / 1500 Balance -125.8 / -125.8 1050 / 1050 1460 / 1460 Microbiology Past 72 Hours 04/23/18 16:55 Urine Culture - Final Urine Catheter - Catheter Presumptive E. coli 04/22/18 09:15 Urine Culture - Final Urine, Clean Catch Presumptive E. coli Laboratory Tests Past 24 Hrs PT 24.3 H INR 2.2 POC Glucose POC Glucose 250 H 194 H 208 H POC Glucose 267 H Discharge Activity: Return to Normal Activity Call your doctor if you observe: Fever of 101 or Higher, Shortness of breath, Dizziness, Fainting spells, Swelling in the ankles, Chest pain, Calf discomfort, - - palpitations Home Medications: Medications to take at Discharge Aspirin [Aspirin EC] 81 mg PO DAILY 10/23/16 Furosemide [Lasix] 20 mg PO DAILY 10/23/16 Lansoprazole [Prevacid] 30 mg PO BID 10/23/16 Loratadine 10 mg PO DAILY 10/23/16 Losartan Potassium [Cozaar] 100 mg PO QHS 10/23/16 Metformin(XR) [Glucophage Xr] 1,000 mg PO BID 10/23/16 Polyethylene Glycol 3350 17 gm PO DAILY PRN 10/23/16 Warfarin [Coumadin] 6 mg PO SUMOWEFRSA 10/23/16 glipiZIDE [Glucotrol] 10 mg PO DAILY@0730 10/23/16 Atorvastatin Calcium [Lipitor] 20 mg PO QHS 03/26/18 Ferrous Sulfate 325 mg PO BIDCM 03/26/18 Meclizine HCl [Antivert] 25 mg PO TID PRN PRN 03/26/18 Mupirocin [Bactroban] 1 applicatio NASAL TID PRN 03/26/18 Nitroglycerin [Nitrostat] 0.4 mg SUBLINGUAL Q5M PRN 03/26/18 Nystatin 1 applicatio TP BID PRN 03/26/18 Oxybutynin Chloride [Ditropan Xl] 10 mg PO DAILY 03/26/18 Tizanidine HCl 4 mg PO QHS PRN 03/26/18 Warfarin Sodium 3 mg PO TUTH 03/26/18 Amlodipine [Norvasc] 10 mg PO DAILY #30 tablet 03/28/18 Atenolol [Tenormin (beta yi)] 50 mg PO DAILY #30 tablet 03/28/18 Isosorbide Mononitrate [Imdur] 120 mg PO DAILY #30 tablet 03/28/18 Amiodarone HCl [Cordarone] 200 mg PO DAILY #30 tablet 04/13/18 Linagliptin [Tradjenta] 5 mg PO DAILY #30 tablet 04/13/18 Magnesium Oxide [Mag-Ox 400] 400 mg PO DAILYCM #30 tablet 04/13/18 Potassium Chloride [K-Dur] 20 meq PO DAILYCM #30 tablet 04/13/18 busPIRone [Buspar] 5 mg PO TID #90 tablet 04/13/18 Albuterol IH (ProAir) [Proair Hfa] 2 puff INHALATION Q4H PRN PRN 04/18/18 Alprazolam [Xanax] 0.25 mg PO Q6H PRN PRN #20 tab 04/25/18 Amoxicillin [Amoxil] 500 mg PO Q8H #30 capsule 04/25/18 Ranolazine [Ranexa] 500 mg PO BID #60 tablet 04/25/18 Following Prescrptions Were Given to Patient: Alprazolam [Xanax] 0.25 mg PO Q6H PRN PRN #20 tab PRN Reason: panic attack Amoxicillin [Amoxil] 500 mg PO Q8H #30 capsule Ranolazine [Ranexa] 500 mg PO BID #60 tablet Primary Care Physician: Collin Gamez MD [Primary Care Provider] - Please follow up with your Primary Care Physician in: 1-2 weeks Please Follow Up With: Nieves Lei MD When: 2-3 weeks Please Follow Up With: Jasmina Mahajan MD When: as needed Patient Instructions: Your Body's Response to Anxiety, Understanding Panic Disorder (Panic Attack) Disposition: Home Minutes spent on discharge:: 35 Patient Condition:: Good Medical Necessity - Tobacco Use Smoking Status: Former smoker Tobacco Use: Cigarettes Meaningful Use Info Meaningful Use Diagnoses (Choose all that apply): None applicable Code Visit Inpatient MARTY: [id number] Disch Hosp 04/25/18 1449 <Electronically signed by Parvin Mcconnell DO> Date Parvin Mcconnell DO Cosigner Signature (if applicable): Date CC: Sandra Mcconnell; Collin Gamez MD; Jasmina Mahajan MD; Wade Corado MD; Nieves Lei MD Signed DISCHARGE INSTRUCTION Observed: 04/25/2018 Status: F Source: [place] 2:24 PM [facility]POS[facility] Medical Records Department [address] [place] [address] Instructions for Home/Discharge Instructions 04/25/18 1411 MR#: [id number] Acct: [id number] Name: FLAVIA CASE Rep #: [id number] : 1950 68 From: Parvin Mcconnell DO PCP: Collin Gamez MD Status: ADM IN - Discharge Diagnoses Current Active Problems: Current Active and Chronic Problems Chest pain at rest (Acute) Chest pain (Acute) HLD (hyperlipidemia) (Chronic) You will use the following diet at home:: Calorie/Carbohydrate Controlled (specify 1200, 1400, etc), Cardiac Your food should be the consistency of: Regular Your liquids should be the consistency of: Regular/Thin Discharge Activity: Return to Normal Activity Call your doctor if you observe: Fever of 101 or Higher, Shortness of breath, Dizziness, Fainting spells, Swelling in the ankles, Chest pain, Calf discomfort, - - palpitations Instructions: Your Body's Response to Anxiety, Understanding Panic Disorder (Panic Attack) Additional Instructions: I have given you a prescription for a medication called Alprazolam (Xanax). this medication is to be used for a panic attack........when you get anxious and feel like the breath will not go the whole way down and you get tingling in your fingers and around your mouth and when your hair stands on end and you feel like you are going to . Allergies/Adverse Reactions: Allergies adhesive Allergy (Verified 04/18/18 02:03) Rash fluticasone propionate [From Advair Diskus] Allergy (Verified 04/18/18 02:03) chest pain gabapentin [From Neurontin] Allergy (Verified 04/18/18 02:03) Swelling of feet and legs salmeterol xinafoate [From Advair Diskus] Allergy (Verified 04/18/18 02:03) chest pains albuterol [From Ventolin HFA] Adverse Reaction (Verified 04/18/18 02:03) jittery TOO JITTERY cephalexin monohydrate [From Keflex] Adverse Reaction (Verified 04/18/18 02:03) abdominal cramping diltiazem [From Cardizem] Adverse Reaction (Verified 04/18/18 06:08) Other pregabalin Adverse Reaction (Verified 04/18/18 02:03) makes me slow to respond Medications to take at Discharge Aspirin [Aspirin EC] 81 mg PO DAILY 10/23/16 Furosemide [Lasix] 20 mg PO DAILY 10/23/16 Lansoprazole [Prevacid] 30 mg PO BID 10/23/16 Loratadine 10 mg PO DAILY 10/23/16 Losartan Potassium [Cozaar] 100 mg PO QHS 10/23/16 Metformin(XR) [Glucophage Xr] 1,000 mg PO BID 10/23/16 Polyethylene Glycol 3350 17 gm PO DAILY PRN 10/23/16 Warfarin [Coumadin] 6 mg PO SUMOWEFRSA 10/23/16 glipiZIDE [Glucotrol] 10 mg PO DAILY@0730 10/23/16 Atorvastatin Calcium [Lipitor] 20 mg PO QHS 03/26/18 Ferrous Sulfate 325 mg PO BIDCM 03/26/18 Meclizine HCl [Antivert] 25 mg PO TID PRN PRN 03/26/18 Mupirocin [Bactroban] 1 applicatio NASAL TID PRN 03/26/18 Nitroglycerin [Nitrostat] 0.4 mg SUBLINGUAL Q5M PRN 03/26/18 Nystatin 1 applicatio TP BID PRN 03/26/18 Oxybutynin Chloride [Ditropan Xl] 10 mg PO DAILY 03/26/18 Tizanidine HCl 4 mg PO QHS PRN 03/26/18 Warfarin Sodium 3 mg PO TUTH 03/26/18 Amlodipine [Norvasc] 10 mg PO DAILY #30 tablet 03/28/18 Atenolol [Tenormin (beta yi)] 50 mg PO DAILY #30 tablet 03/28/18 Isosorbide Mononitrate [Imdur] 120 mg PO DAILY #30 tablet 03/28/18 Amiodarone HCl [Cordarone] 200 mg PO DAILY #30 tablet 04/13/18 Linagliptin [Tradjenta] 5 mg PO DAILY #30 tablet 04/13/18 Magnesium Oxide [Mag-Ox 400] 400 mg PO DAILYCM #30 tablet 04/13/18 Potassium Chloride [K-Dur] 20 meq PO DAILYCM #30 tablet 04/13/18 busPIRone [Buspar] 5 mg PO TID #90 tablet 04/13/18 Albuterol IH (ProAir) [Proair Hfa] 2 puff INHALATION Q4H PRN PRN 04/18/18 Amoxicillin [Amoxil] 500 mg PO Q8H #30 capsule 04/25/18 Ranolazine [Ranexa] 500 mg PO BID #60 tablet 04/25/18 The following prescriptions were given: Amoxicillin [Amoxil] 500 mg PO Q8H #30 capsule Ranolazine [Ranexa] 500 mg PO BID #60 tablet Primary Care Physician: Collin Gamez MD [Primary Care Provider] - Please follow up with your Primary Care Physician in: 1-2 weeks Test Results: Test results from this visit will be discussed in further detail at your follow-up appointment, if applicable. Please Follow Up With: Nieves Lei MD When: 2-3 weeks Please Follow Up With: Jasmina Mahajan MD When: as needed Proposed Discharge Date: 04/25/18 04/25/18 1424 <Electronically signed by Parvin Mcconnell DO> Date M CRodrigo Mcconnell DO CC: Collin Gamez MD; Jasmina Mahajan MD; Nieves Lei MD Signed BEDSIDE GLUCOSE Collected: 04/25/2018 Status: F Source: [place] 11:09 AM [facility] REPOSITORY TYPE CODE TESTS RESULT OUT OF REFERENCE UNITS RANGE LAB L501.080 70-110 mg/dL High BEDSIDE GLU 250 Result Comment: MANAGEMENT OF PATIENT CARE PER NURSING PROTOCOL Performed By: #### L501.080 #### [facility] Laboratory Point of Care [address] [place] [address] BEDSIDE GLUCOSE Collected: 04/25/2018 Status: F Source: [place] 6:29 AM [facility] REPOSITORY TYPE CODE TESTS RESULT OUT OF REFERENCE UNITS RANGE LAB L501.080 70-110 mg/dL High BEDSIDE GLU 194 Result Comment: MANAGEMENT OF PATIENT CARE PER NURSING PROTOCOL Performed By: #### L501.080 #### [facility] Point of Care [address] [place] [address] PROTHROMBIN TIME W/INR Collected: 04/25/2018 Status: F Source: [place] 5:30 AM [facility] REPOSITORY TYPE CODE TESTS RESULT OUT OF RANGE REFERENCE UNITS LAB L300.4150 11.7-14.9 SECONDS High PROTIME 24.3 LAB L300.4200 Normal INR 2.2 Performed By: #### L300.3900 #### [facility] [address] [place], [address] BEDSIDE GLUCOSE Collected: 04/24/2018 Status: F Source: [place] 9:59 PM [facility] REPOSITORY TYPE CODE TESTS RESULT OUT OF REFERENCE UNITS RANGE LAB L501.080 70-110 mg/dL High BEDSIDE GLU 208 Result Comment: MANAGEMENT OF PATIENT CARE PER NURSING PROTOCOL Performed By: #### L501.080 #### [facility] Point of Care [address] [place] [address] BEDSIDE GLUCOSE Collected: 04/24/2018 Status: F Source: [place] 3:40 PM [facility] REPOSITORY TYPE CODE TESTS RESULT OUT OF REFERENCE UNITS RANGE LAB L501.080 70-110 mg/dL High BEDSIDE GLU 267 Result Comment: MANAGEMENT OF PATIENT CARE PER NURSING PROTOCOL Performed By: #### L501.080 #### [facility] Point of Care [address] [place] [address] PROTHROMBIN TIME W/INR Collected: 04/24/2018 Status: F Source: [place] 11:55 AM [facility] REPOSITORY TYPE CODE TESTS RESULT OUT OF RANGE REFERENCE UNITS LAB L300.4150 11.7-14.9 SECONDS High PROTIME 20.9 LAB L300.4200 Normal INR 1.8 Performed By: #### L300.3900 #### [facility] [address] [place], [address] BEDSIDE GLUCOSE Collected: 04/24/2018 Status: F Source: [place] 11:54 AM [facility] REPOSITORY TYPE CODE TESTS RESULT OUT OF REFERENCE UNITS RANGE LAB L501.080 70-110 mg/dL High BEDSIDE GLU 262 Result Comment: MANAGEMENT OF PATIENT CARE PER NURSING PROTOCOL Performed By: #### L501.080 #### [facility] Point of Care [address] [place] [address] TROPONIN-I Collected: 04/24/2018 Status: F Source: [place] 7:50 AM [facility] REPOSITORY Order Comment: 'TROP' Serial specimen #1, #2 or #3: 3 TYPE CODE TESTS RESULT OUT OF RANGE REFERENCE UNITS LAB L501.4010 <0.045 ng/mL Normal < 0.015 TROPONIN-I Result Comment: TROPONIN-I EXPECTED VALUES <0.045 Negative 0.045 - 0.590 Consistent with Cardiac Damage > OR = 0.600 Critical Value Not every elevated troponin is indicative of [place]. These values should be used with clinical judgement in examining the patient's clinical picture for diagnosis. To establish a diagnosis of [place] versus myocardial injury, there must be a demonstrated rise and/or fall in the troponin values, in addition to ischemic symptoms, EKG changes, new regional wall motion abnormality, and/or angiographical evidence. PLEASE NOTE: REFERENCE RANGES EDITED 17 Performed By: #### L501.4010 #### [facility] [address] [place], [address] BEDSIDE GLUCOSE Collected: 04/24/2018 Status: F Source: [place] 6:26 AM [facility] REPOSITORY TYPE CODE TESTS RESULT OUT OF REFERENCE UNITS RANGE LAB L501.080 70-110 mg/dL High BEDSIDE GLU 211 Result Comment: MANAGEMENT OF PATIENT CARE PER NURSING PROTOCOL Performed By: #### L501.080 #### [place] [facility] Laboratory Point of Care [address] [place] [address] PROTHROMBIN TIME W/INR Collected: 04/24/2018 Status: F Source: [place] 4:30 AM [facility] REPOSITORY TYPE CODE TESTS RESULT OUT OF RANGE REFERENCE UNITS LAB L300.4150 11.7-14.9 SECONDS High PROTIME 21.6 LAB L300.4200 Normal INR 1.9 Performed By: #### L300.3900 #### [facility] [address] [place], [address] TROPONIN-I Collected: 04/24/2018 Status: F Source: [place] 4:30 AM [facility] REPOSITORY Order Comment: 'TROP' Serial specimen #1, #2 or #3: 2 TYPE CODE TESTS RESULT OUT OF RANGE REFERENCE UNITS LAB L501.4010 <0.045 ng/mL Normal < 0.015 TROPONIN-I Result Comment: TROPONIN-I EXPECTED VALUES <0.045 Negative 0.045 - 0.590 Consistent with Cardiac Damage > OR = 0.600 Critical Value Not every elevated troponin is indicative of [place]. These values should be used with clinical judgement in examining the patient's clinical picture for diagnosis. To establish a diagnosis of [place] versus myocardial injury, there must be a demonstrated rise and/or fall in the troponin values, in addition to ischemic symptoms, EKG changes, new regional wall motion abnormality, and/or angiographical evidence. PLEASE NOTE: REFERENCE RANGES EDITED 17 Performed By: #### L501.4010 #### [place] [facility] [address] [place], [address] TROPONIN-I Collected: 04/24/2018 Status: F Source: [place] 1:38 AM [facility] REPOSITORY Order Comment: 'TROP' Serial specimen #1, #2 or #3: 1 TYPE CODE TESTS RESULT OUT OF RANGE REFERENCE UNITS LAB L501.4010 <0.045 ng/mL Normal < 0.015 TROPONIN-I Result Comment: TROPONIN-I EXPECTED VALUES <0.045 Negative 0.045 - 0.590 Consistent with Cardiac Damage > OR = 0.600 Critical Value Not every elevated troponin is indicative of FL. These values should be used with clinical judgement in examining the patient's clinical picture for diagnosis. To establish a diagnosis of FL versus myocardial injury, there must be a demonstrated rise and/or fall in the troponin values, in addition to ischemic symptoms, EKG changes, new regional wall motion abnormality, and/or angiographical evidence. PLEASE NOTE: REFERENCE RANGES EDITED 17 Performed By: #### L501.4010 #### [facility] [address] [place], [place], [id number] BEDSIDE GLUCOSE Collected: 04/24/2018 Status: F Source: [place] 1:05 AM [facility] REPOSITORY TYPE CODE TESTS RESULT OUT OF REFERENCE UNITS RANGE LAB L501.080 70-110 mg/dL High BEDSIDE GLU 252 Result Comment: MANAGEMENT OF PATIENT CARE PER NURSING PROTOCOL Performed By: #### L501.080 #### [facility] Point of Care [address] [facility] [address] [place] [address] BEDSIDE GLUCOSE Collected: 04/23/2018 Status: F Source: [place] 8:38 PM [facility] REPOSITORY TYPE CODE TESTS RESULT OUT OF REFERENCE UNITS RANGE LAB L501.080 70-110 mg/dL High BEDSIDE GLU 200 Result Comment: MANAGEMENT OF PATIENT CARE PER NURSING PROTOCOL Performed By: #### L501.080 #### [facility] Point of Care [address] [place] [address] Observed: 04/23/2018 Status: F Source: [place] CULTURE, URINE 4:55 PM [facility] REPOSITORY Urine Culture ORGANISM 1: Presumptive E. coli Brooks Count >100,000 Presumptive E. coli: REACTION Amoxacillin/Clavulanic Acid $ <=2 S Ampicillin $ <=2 S Ampicillin/Sulbactam $ <=2 S Cefazolin $ <=4 S Cefepime $ <=1 S Ceftriaxone $ <=1 S Ciprofloxacin $ <=0.25 S ESBL - Ertapenim $$$ <=0.5 S Gentamicin $ <=1 S Imipenem *NF <=0.25 S Levofloxacin $ <=0.12 S Nitrofurantoin $ <=16 S Piperacillin/Tazobactam $$ <=4 S Tobramycin $ <=1 S Trimethoprim/Sulfametho $ <=20 S (NF) indicates non-formulary drug at [facility]. Approval by Infectious Disease Specialist required before non-formulary drugs may be ordered and/or dispensed. Performed By: #### M100.0650 #### [facility] [address] [place], [address] BEDSIDE GLUCOSE Collected: 04/23/2018 Status: F Source: [place] 4:37 PM [facility] REPOSITORY TYPE CODE TESTS RESULT OUT OF REFERENCE UNITS RANGE LAB L501.080 70-110 mg/dL High BEDSIDE GLU 238 Result Comment: MANAGEMENT OF PATIENT CARE PER NURSING PROTOCOL Performed By: #### L501.080 #### [facility] Point of Care [address] [place] [address] CYTOSPIN ON FLUID Observed: 04/23/2018 Status: F Source: [place] 2:00 PM [facility] REPOSITORY Patient: FLAVIA CASE : 1950 (68/F) Acct Num: [id number] Phys: Sandra Mcconnell Unit Num: [id number] Loc: MS2 [id number] Specimen: [id number] Received: 04/25/1858 Spec Type: CYSPIN FL TISSUES 1 TISSUES: Urine CYTOLOGY GROSS Received is 7.5 ml of clear yellow fluid labeled with the patient's name and and designated per the requisition as urine. Submitted for cytology preparation. / 04/25/18 TC:2 CPT: 94782 CYTOLOGY STUDY Slides are reviewed. DIAGNOSIS CYTOLOGY Urine for cytology (cytospin): Negative for malignant cells. Acute inflammation and bacterial colonies. AM:matthew 04/26/18 HEADER OPERATION: Not noted PRE-OP DIAGNOSIS: Gross hematuria TISSUE SUBMITTED: Urine for cytology Signed Paxtondavid Nava, DO 04/26/18 <signature on file> Performed By: #### PCYSPIN #### [facility] [address] [place], [address] CYTOLOGY, BODY FLUID / Collected: 04/23/2018 Status: F Source: [place] CSF 2:00 PM [facility] REPOSITORY Order Comment: Comments: urine for cytology, gross hematuria TYPE CODE TESTS RESULT OUT OF RANGE REFERENCE UNITS LAB L350.1000 SEE Normal PATHOLOGY CYTOLOGY,BF REPORT /CSF Result Comment: Specimen submitted to Anatomical Pathology Department for testing. Performed By: #### L350.1000 #### [facility] [address] [facility] [address] [place], [address] 12 LEAD ELECTROCARDIOGRAM Observed: 04/23/2018 Status: F Source: [place] 1:32 PM [facility] REPOSITORY [facility] Cardiovascular Services [address] [place] [address] 12 Lead EKG 04/20/18 0531 MR#: [id number] Acct: [id number] Name: FLAVIA CASE Rep #: [id number] : 1950 68 From: Nieves Lei MD Attending Dr: Sandra Mcconnell Status: ADM IN Ordering Dr: Nieves Lei MD Date: 04/20/18 [facility] [facility] Sex: F C Admitted: 04/20/18 Test Reason : MORNING EKG Blood Pressure : / mmHG Vent. Rate : 062 BPM Atrial Rate : 062 BPM P-R Int : 172 ms QRS Dur : 118 ms QT Int : 442 ms P-R-T Axes : 024 074 019 degrees QTc Int : 448 ms Normal sinus rhythm Non-specific intra-ventricular conduction delay Borderline ECG Confirmed by JENNIFFER ONEAL, NIEVES ([id number]), graphic editor SOUMYA BARTH ([id number]) on 04/23/2018 1:32:04 PM Referred By: NAE Confirmed By:NIEVES LEI MD 04/23/18 1332 Date Nieves Lei MD CC: Sandra Mcconnell; Collin Gamez MD; Nieves Lei MD Signed BEDSIDE GLUCOSE Collected: 04/23/2018 Status: F Source: [place] 11:17 AM [facility] REPOSITORY TYPE CODE TESTS RESULT OUT OF REFERENCE UNITS RANGE LAB L501.080 70-110 mg/dL High BEDSIDE GLU 295 Result Comment: MANAGEMENT OF PATIENT CARE PER NURSING PROTOCOL Performed By: #### L501.080 #### [facility] Point of Care [address] [facility] [address] [facility] [place] [address] CONSULTATION Observed: 04/23/2018 Status: F Source: [place] 10:47 AM [facility] REPOSIT[facility] Medical Records Department [address] [place] [address] Consultation 04/23/18 1041 MR#: [id number] Acct: [id number] Name: FLAVIA CASE Rep #: [id number] : 1950 68 From: Jasmina Mahajan MD PCP: Collin Gamez MD Status: ADM IN Location: [place] [id number] Problem List (1) Hematuria Status: Resolved Reason for Consult Date of Consultation: 04/23/18 Reason for Consultation: gross hematuria History of Present Illness: The patient is a 68 year old F receiving anticoagulation secondary to cardiac condition and procedure. She developed gross hematuria on heparin anticoagulation and urology consultation was placed. The patient is a patient of the [facility] and has had gross hematuria in the past approximately 2 years ago. She had a full evaluation at that time revealing no evidence of etiology. She denies history of urinary tract infections in the past and does not have any dysuria, increase in urgency or frequency at this time. She does have a history of overactive bladder and this is being successfully treated with oxybutynin. She is engaged and understands the importance of follow-up after discharge in regards to her hematuria. Past Medical History Past Medical History (Chronic Problems): Chronic Problems HLD (hyperlipidemia) (Chronic) Moderate aortic stenosis (Chronic) Morbid obesity (Chronic) Paroxysmal atrial fibrillation with RVR (Chronic) H/O prosthetic aortic valve replacement (Chronic) 1994 CAD (coronary artery disease) (Chronic) Hx of CABG (Chronic) Type 2 diabetes mellitus (Chronic) Hypertension (Chronic) Chronic obstructive lung disease (Chronic) Allergies adhesive Allergy (Verified 04/18/18 02:03) Rash fluticasone propionate [From Advair Diskus] Allergy (Verified 04/18/18 02:03) chest pain gabapentin [From Neurontin] Allergy (Verified 04/18/18 02:03) Swelling of feet and legs salmeterol xinafoate [From Advair Diskus] Allergy (Verified 04/18/18 02:03) chest pains albuterol [From Ventolin HFA] Adverse Reaction (Verified 04/18/18 02:03) jittery TOO JITTERY cephalexin monohydrate [From Keflex] Adverse Reaction (Verified 04/18/18 02:03) abdominal cramping diltiazem [From Cardizem] Adverse Reaction (Verified 04/18/18 06:08) Other pregabalin Adverse Reaction (Verified 04/18/18 02:03) makes me slow to respond Home Medications: Ambulatory Orders Medication Instructions Recorded Aspirin [Aspirin EC] 81 mg PO DAILY 10/23/16 Furosemide [Lasix] 20 mg PO DAILY 10/23/16 Lansoprazole [Prevacid] 30 mg PO BID 10/23/16 Surgical History: - - aortic valve replacement 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: No pertinent psych hx 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 Denies: Dysuria, Frequency, Hesitancy - Please see HPI, she has known urgency and frequency with her overactive bladder. This is not increased., Urgency Patient Problems: Active and Suspected Problems Chest pain at rest (Acute) Chest pain (Acute) - Physical Exam General: Alert, Oriented x3, Cooperative, No apparent distress HEENT: Atraumatic, Normocephalic Oral: Moist Mucosa Neck: Supple, Trachea Midline Lungs: Normal air movement Cardiovascular: Regular rate Abdomen: Soft Extremities: Edema Musculoskeletal: No Muscle Wasting Neurological: Cranial nerves II-XII grossly intact, Neuro grossly intact Psych/Mental Status: Normal Affect Vital Signs Temp Pulse Resp BP Pulse Ox 98.5 F 67 18 127/63 H 95 04/23/18 02:48 04/23/18 04:04 04/23/18 02:48 04/23/18 02:48 04/23/18 02:48 Oxygen Flow Rate (L/min) 2 Oxygen Delivery Method Room Air Weight: 104.3 kg Body Mass Index (BMI) 41.1 Intake and Output for Last 24 Hours Laboratory Tests Past 24 Hrs WBC 8.4 RBC 4.19 L Hgb 11.5 L Hct 35.4 L MCV 84.5 MCH 27.4 WBC RBC Hgb Hct POC Glucose POC Glucose 183 H 200 H 237 H POC Glucose 255 H Assessment/Plan All Active Problems Hematuria (Resolved) Chest pain at rest (Acute) Chest pain (Acute) Anxiety about health (Acute) Subtherapeutic international normalized ratio (INR) (Acute) Urine has cleared and aden is out. Urine for cytology. Await urine culture, treat with appropriate antibiotics. Will consider repeat cystoscopy as out patient. Renal imaging for hematuria. Can be done in few weeks as outpatient due to recent dye load. Ok to follow up with or with me in the office. Thank you for the consult. 04/23/18 1047 <Electronically signed by Jasmina Mahajan MD> Date Jasmina Mahajan MD Cosigner Signature (if applicable): Date CC: Collin Gamez MD; Jasmina Mahajan MD; Nieves Lei MD Signed BEDSIDE GLUCOSE Collected: 04/23/2018 Status: F Source: [place] 6:39 AM [facility] REPOSITORY TYPE CODE TESTS RESULT OUT OF REFERENCE UNITS RANGE LAB L501.080 70-110 mg/dL High BEDSIDE GLU 183 Result Comment: MANAGEMENT OF PATIENT CARE PER NURSING PROTOCOL Performed By: #### L501.080 #### [facility] Point of Care [address] [place] [address] CBC W/DIFF, AUTOMATED Collected: 04/23/2018 Status: F Source: [place] 5:30 AM [facility] REPOSITORY TYPE CODE TESTS RESULT OUT OF RANGE REFERENCE UNITS LAB L100.1000 4.4-11.0 K/mm3 Normal WBC 8.4 LAB L100.1200 4.2-5.4 M/mm3 Low RBC 4.19 LAB L100.1300 12.0-15.0 g/dl Low HGB 11.5 LAB L100.1400 37-47 % Low HCT 35.4 LAB L100.1500 81-99 fL Normal MCV 84.5 LAB L100.1600 27.0-32.0 pg Normal MCH 27.4 LAB L100.1700 32-36 g/gl Normal MCHC 32.5 LAB L100.1810 11.6-14.6 % High RDW CV 16.5 LAB L100.1820 35.1-43.9 fl High RDW SD 48.7 LAB L100.1900 150-450 K/mm3 Normal PLT 167 LAB L100.2000 6.2-12.0 fl Normal MPV 11.1 LAB L100.3100 MANUAL DIFF Normal CELLS COUNTED 100 LAB L100.3200 47-70 % High 76 SEGS LAB L100.3800 19-41 % Low 15 LYMPH LAB L100.3900 0-10 % 6 Normal MONOCYTE LAB L100.4000 0-5 % 2 Normal EOS LAB L100.4100 0-1 % 1 Normal BASOPHIL LAB L100.5500 ADEQ Normal PLT EST ADEQUATE LAB L100.7000 NORM C AND C NORMAL Normal RED CELL MORPH NORM C+C LAB L100.2620 2.0-7.7 X10 3/uL Normal Absolute Neut 6.4 LAB L100.2720 0.83-4.51 X10 3/ul Normal Absolute Lymph 1.26 LAB L100.9900 Normal PATH REV May foll Performed By: #### L100.0100 #### [facility] [address] [place], [place], [address] BASIC METABOLIC Collected: 04/23/2018 Status: F Source: [place] PROFILE (BMP) 5:30 AM [facility] REPOSITORY TYPE CODE TESTS RESULT OUT OF RANGE REFERENCE UNITS LAB L501.0100 74-106 mg/dL High GLU 175 Result Comment: Fasting Glucose result greater than or equal to 126 mg/dL suggests DIABETES MELLITUS per A.D.A. criteria. Please note revised GLUCOSE reference range effective 2017. LAB L501.1000 7-18 mg/dL Normal BUN 13 LAB L501.1100 0.55-1.02 mg/dL Normal CREAT,SERUM 0.75 Result Comment: The validity of the calculated GFR AND GFRAA in patients over 70 years has not been determined. Clinical correlation is essential. LAB L501.1110 >60 mL/min Normal EST GFR 81 Result Comment: Non- GFR Calc LAB L501.1115 >60 mL/min Normal EST GFR - AA 98 Result Comment: GFR Calc LAB L501.1255 ml/min Normal Estimated CRCL 43.92 LAB L501.1300 10-20 RATIO Normal BUN/CRE 17.3 LAB L501.2200 8.5-10 mg/dL Normal .1 CA 8.7 LAB L501.5300 136-14 mmol/L Normal 5 NA 139 LAB L501.5600 3.5-5. mmol/L Normal 1 K 4.1 LAB L501.5900 98-107 mmol/L Normal CL 103 LAB L501.6100 21.0-3 mmol/L Normal 2.0 CO2 26.0 LAB L501.6200 5-15 Normal GAP 10 Performed By: #### L500.2500 #### [facility] [address] [place], [place], [address] PROTHROMBIN TIME W/INR Collected: 04/23/2018 Status: F Source: [place] 5:30 AM [facility] REPOSITORY TYPE CODE TESTS RESULT OUT OF RANGE REFERENCE UNITS LAB L300.4150 11.7-14.9 SECONDS High PROTIME 18.7 LAB L300.4200 Normal INR 1.6 Performed By: #### L300.3900 #### [facility] [address] [place], [place], [address] BEDSIDE GLUCOSE Collected: 04/22/2018 Status: F Source: [place] 9:46 PM [facility] REPOSITORY TYPE CODE TESTS RESULT OUT OF REFERENCE UNITS RANGE LAB L501.080 70-110 mg/dL High BEDSIDE GLU 200 Result Comment: MANAGEMENT OF PATIENT CARE PER NURSING PROTOCOL Performed By: #### L501.080 #### [facility] Point of Care [address] [place] [address] BEDSIDE GLUCOSE Collected: 04/22/2018 Status: F Source: [place] 4:22 PM [facility] REPOSITORY TYPE CODE TESTS RESULT OUT OF REFERENCE UNITS RANGE LAB L501.080 70-110 mg/dL High BEDSIDE GLU 237 Result Comment: MANAGEMENT OF PATIENT CARE PER NURSING PROTOCOL Performed By: #### L501.080 #### [facility] Point of Care [address] [place], [place] [address] PROTHROMBIN TIME W/INR Collected: 04/22/2018 Status: F Source: [place] 12:30 PM [facility] REPOSITORY TYPE CODE TESTS RESULT OUT OF RANGE REFERENCE UNITS LAB L300.4150 11.7-14.9 SECONDS High PROTIME 16.0 LAB L300.4200 Normal INR 1.3 Performed By: #### L300.3900 #### [facility] [address] [place], [place], [address] BEDSIDE GLUCOSE Collected: 04/22/2018 Status: F Source: [place] 11:44 AM [facility] REPOSITORY TYPE CODE TESTS RESULT OUT OF REFERENCE UNITS RANGE LAB L501.080 70-110 mg/dL High BEDSIDE GLU 255 Result Comment: MANAGEMENT OF PATIENT CARE PER NURSING PROTOCOL Performed By: #### L501.080 #### [facility] Point of Care [address] [place] [address] URINALYSIS, COMPLETE Collected: 04/22/2018 Status: F Source: [place] 9:15 AM [facility] REPOSITORY Order Comment: COLOR OF URINE MAY AFFECT DIPSTICK RESULTS. How was Urine Obtained? CLEAN CATCH TYPE CODE TESTS RESULT OUT OF RANGE REFERENCE UNITS LAB L400.3000 Yellow COLOR Normal Red LAB L400.3050 Clear Normal CLARITY Cloudy LAB L400.3200 Normal mg/dl Normal GLUCOSE, UR Normal LAB L400.3300 Negative mg/dL Normal BILIRUBIN URINE Negative LAB L400.3400 Negative mg/dl Normal KETONE UR Negative LAB L400.3465 1.002-1.030 Normal SP.GR. DIPSTX 1.010 LAB L400.3550 5.0 - 8.0 pH UR Normal 8.0 LAB L400.3600 Negative mg/dl High PROT DIPSTX 100 LAB L400.3700 Normal mg/dl Normal UROBILI Normal LAB L400.3750 Negative High NITRITE UR Positive LAB L400.3780 Negative /ul High OCCULT BLOOD-UR 250 LAB L400.3800 Negative /ul High LEUK ESTERASE 100 LAB L400.4050 0-5 /hpf WBC Normal 10-25 SEEN LAB L400.4100 0-5 /hpf > Normal RBC-UA 100 SEEN LAB L400.4150 5-10 /hpf SQUAM 0 Normal EPI SEEN LAB L400.4300 None Seen /hpf 1+ Normal BACTERIA LAB L400.4350 <or=2+ /hpf 0 Normal MUCUS, URINE SEEN Performed By: #### L400.0001 #### [facility] [address] [place], [address] Observed: 04/22/2018 Status: F Source: [place] CULTURE, URINE 9:15 AM [facility] REPOSITORY Urine Culture ORGANISM 1: Presumptive E. coli Brooks Count >100,000 Presumptive E. coli: REACTION Amoxacillin/Clavulanic Acid $ <=2 S Ampicillin $ <=2 S Ampicillin/Sulbactam $ <=2 S Cefazolin $ <=4 S Cefepime $ <=1 S Ceftriaxone $ <=1 S Ciprofloxacin $ <=0.25 S ESBL - Ertapenim $$$ <=0.5 S Gentamicin $ <=1 S Imipenem *NF <=0.25 S Levofloxacin $ <=0.12 S Nitrofurantoin $ <=16 S Piperacillin/Tazobactam $$ <=4 S Tobramycin $ <=1 S Trimethoprim/Sulfametho $ <=20 S (NF) indicates non-formulary drug at [facility]. Approval by Infectious Disease Specialist required before non-formulary drugs may be ordered and/or dispensed. Performed By: #### M100.0650 #### [facility] [address] [place], [place], [address] BEDSIDE GLUCOSE Collected: 04/22/2018 Status: F Source: [place] 6:44 AM [facility] REPOSITORY TYPE CODE TESTS RESULT OUT OF REFERENCE UNITS RANGE LAB L501.080 70-110 mg/dL High BEDSIDE GLU 158 Result Comment: MANAGEMENT OF PATIENT CARE PER NURSING PROTOCOL Performed By: #### L501.080 #### [facility] Point of Care [address] [place] [address] CBC W/DIFF, AUTOMATED Collected: 04/22/2018 Status: F Source: [place] 3:10 AM [facility] REPOSITORY TYPE CODE TESTS RESULT OUT OF RANGE REFERENCE UNITS LAB L100.1000 4.4-11.0 K/mm3 Normal WBC 7.2 LAB L100.1200 4.2-5.4 M/mm3 Low RBC 4.05 LAB L100.1300 12.0-15.0 g/dl Low HGB 11.1 LAB L100.1400 37-47 % Low HCT 34.1 LAB L100.1500 81-99 fL Normal MCV 84.2 LAB L100.1600 27.0-32.0 pg Normal MCH 27.4 LAB L100.1700 32-36 g/gl Normal MCHC 32.6 LAB L100.1810 11.6-14.6 % High RDW CV 15.9 LAB L100.1820 35.1-43.9 fl High RDW SD 47.3 LAB L100.1900 150-450 K/mm3 Normal PLT 166 LAB L100.2000 6.2-12.0 fl Normal MPV 11.5 LAB L100.2100 47-70 % Normal NEUT% 66.3 LAB L100.2200 19-41 % Normal LY% 19.9 LAB L100.2300 0-10 % Normal MONO% 9.2 LAB L100.2400 0-5 % Normal EO% 2.9 LAB L100.2500 0-1 % Normal BASO% 1.0 LAB L100.2550 0.0-0.9 % Normal IM GRAN % 0.700 Result Comment: IG% - Immature Granulocytes (promyelocytes, myelocytes and metamyelocytes) > 1% indicates that a LEFT SHIFT is Present. LAB L100.2620 2.0-7.7 X10 3/uL Normal Absolute Neut 4.8 LAB L100.2720 0.83-4.51 X10 3/ul Normal Absolute Lymph 1.43 Performed By: #### L100.0100 #### [facility] [address] [place], [address] PARTIAL THROMBOPLAST Collected: 04/22/2018 Status: F Source: [place] TIME 3:10 AM [facility] REPOSITORY TYPE CODE TESTS RESULT OUT OF REFERENCE UNITS RANGE LAB L300.4310 24.1-36.2 Seconds High PTT 38.7 Performed By: #### L300.4310 #### [facility] [address] [place], [address] PROTHROMBIN TIME W/INR Collected: 04/22/2018 Status: F Source: [place] 3:10 AM [facility] REPOSITORY TYPE CODE TESTS RESULT OUT OF RANGE REFERENCE UNITS LAB L300.4150 11.7-14.9 SECONDS High PROTIME 16.0 LAB L300.4200 Normal INR 1.3 Performed By: #### L300.3900 #### [facility] [address] [place], [address] PARTIAL THROMBOPLAST Collected: 04/22/2018 Status: F Source: [place] TIME 1:15 AM [facility] REPOSITORY TYPE CODE TESTS RESULT OUT OF REFERENCE UNITS RANGE LAB L300.4310 24.1-36.2 Seconds High PTT 66.6 Performed By: #### L300.4310 #### [facility] [address] [place], [address] BEDSIDE GLUCOSE Collected: 04/21/2018 Status: F Source: [place] 9:42 PM [facility] REPOSITORY TYPE CODE TESTS RESULT OUT OF REFERENCE UNITS RANGE LAB L501.080 70-110 mg/dL High BEDSIDE GLU 183 Result Comment: MANAGEMENT OF PATIENT CARE PER NURSING PROTOCOL Performed By: #### L501.080 #### [facility] Point of Care [address] [place] [address] BEDSIDE GLUCOSE Collected: 04/21/2018 Status: F Source: [place] 4:35 PM [facility] REPOSITORY TYPE CODE TESTS RESULT OUT OF REFERENCE UNITS RANGE LAB L501.080 70-110 mg/dL High BEDSIDE GLU 201 Result Comment: MANAGEMENT OF PATIENT CARE PER NURSING PROTOCOL Performed By: #### L501.080 #### [facility] Point of Care [address] [place] [address] BEDSIDE GLUCOSE Collected: 04/21/2018 Status: F Source: [place] 12:03 PM [facility] REPOSITORY TYPE CODE TESTS RESULT OUT OF REFERENCE UNITS RANGE LAB L501.080 70-110 mg/dL High BEDSIDE GLU 184 Result Comment: MANAGEMENT OF PATIENT CARE PER NURSING PROTOCOL Performed By: #### L501.080 #### [facility] Point of Care [address] [place] [address] BEDSIDE GLUCOSE Collected: 04/21/2018 Status: F Source: [place] 8:22 AM [facility] REPOSITORY TYPE CODE TESTS RESULT OUT OF REFERENCE UNITS RANGE LAB L501.080 70-110 mg/dL High BEDSIDE GLU 157 Result Comment: MANAGEMENT OF PATIENT CARE PER NURSING PROTOCOL Performed By: #### L501.080 #### [facility] Point of Care [address] [place] [address] PARTIAL THROMBOPLAST Collected: 04/21/2018 Status: F Source: [place] TIME 6:45 AM [facility] REPOSITORY TYPE CODE TESTS RESULT OUT OF REFERENCE UNITS RANGE LAB L300.4310 24.1-36.2 Seconds High PTT 76.1 Performed By: #### L300.4310 #### [facility] [address] [place], [address] CBC W/DIFF, AUTOMATED Collected: 04/21/2018 Status: F Source: [place] 4:35 AM [facility] REPOSITORY TYPE CODE TESTS RESULT OUT OF RANGE REFERENCE UNITS LAB L100.1000 4.4-11.0 K/mm3 Normal WBC 5.7 LAB L100.1200 4.2-5.4 M/mm3 Low RBC 4.04 LAB L100.1300 12.0-15.0 g/dl Low HGB 10.9 LAB L100.1400 37-47 % Low HCT 33.7 LAB L100.1500 81-99 fL Normal MCV 83.4 LAB L100.1600 27.0-32.0 pg Normal MCH 27.0 LAB L100.1700 32-36 g/gl Normal MCHC 32.3 LAB L100.1810 11.6-14.6 % High RDW CV 16.1 LAB L100.1820 35.1-43.9 fl High RDW SD 49.2 LAB L100.1900 150-450 K/mm3 Normal PLT 156 LAB L100.2000 6.2-12.0 fl Normal MPV 10.5 LAB L100.2100 47-70 % Normal NEUT% 56.5 LAB L100.2200 19-41 % Normal LY% 32.6 LAB L100.2300 0-10 % Normal MONO% 6.1 LAB L100.2400 0-5 % Normal EO% 3.3 LAB L100.2500 0-1 % High BASO% 1.1 LAB L100.2550 0.0-0.9 % Normal IM GRAN % 0.400 Result Comment: IG% - Immature Granulocytes (promyelocytes, myelocytes and metamyelocytes) > 1% indicates that a LEFT SHIFT is Present. LAB L100.2620 2.0-7.7 X10 3/uL Normal Absolute Neut 3.2 LAB L100.2720 0.83-4.51 X10 3/ul Normal Absolute Lymph 1.86 Performed By: #### L100.0100 #### [facility] [address]. [place], [place], [address] PROTHROMBIN TIME W/INR Collected: 04/21/2018 Status: F Source: [place] 4:35 AM [facility] REPOSITORY TYPE CODE TESTS RESULT OUT OF RANGE REFERENCE UNITS LAB L300.4150 11.7-14.9 SECONDS High PROTIME 16.3 LAB L300.4200 Normal INR 1.3 Performed By: #### L300.3900 #### [facility] [address] [facility]. [place], [place], [address] BASIC METABOLIC Collected: 04/21/2018 Status: F Source: [place] PROFILE (BMP) [facility] TYPE CODE TESTS RESULT OUT OF RANGE REFERENCE UNITS LAB L501.0100 74-106 mg/dL High GLU 156 Result Comment: Fasting Glucose result greater than or equal to 126 mg/dL suggests DIABETES MELLITUS per A.D.A. criteria. Please note revised GLUCOSE reference range effective 2017. LAB L501.1000 7-18 mg/dL Normal BUN 14 LAB L501.1100 0.55-1.02 mg/dL Normal CREAT,SERUM 0.71 Result Comment: The validity of the calculated GFR AND GFRAA in patients over 70 years has not been determined. Clinical correlation is essential. LAB L501.1110 >60 mL/min Normal EST GFR 87 Result Comment: Non- GFR Calc LAB L501.1115 >60 mL/min Normal EST GFR - AA 106 Result Comment: GFR Calc LAB L501.1255 ml/min Normal Estimated CRCL 43.92 LAB L501.1300 10-20 RATIO Normal BUN/CRE 19.8 LAB L501.2200 8.5-10 mg/dL Low .1 CA 8.3 LAB L501.5300 136-14 mmol/L Normal 5 NA 141 LAB L501.5600 3.5-5. mmol/L Normal 1 K 4.0 LAB L501.5900 98-107 mmol/L Normal CL 106 LAB L501.6100 21.0-3 mmol/L Normal 2.0 CO2 27.0 LAB L501.6200 5-15 Normal GAP 8 Performed By: #### L500.2500 #### [facility] [address] [place], [place], [address] PARTIAL THROMBOPLAST Collected: 04/21/2018 Status: F Source: [place] TIME 12:55 AM [facility] REPOSITORY TYPE CODE TESTS RESULT OUT OF REFERENCE UNITS RANGE LAB L300.4310 24.1-36.2 Seconds High PTT 78.8 Performed By: #### L300.4310 #### [facility] [address] [place], [address] BEDSIDE GLUCOSE Collected: 04/20/2018 Status: F Source: [place] 9:10 PM [facility] REPOSITORY TYPE CODE TESTS RESULT OUT OF REFERENCE UNITS RANGE LAB L501.080 70-110 mg/dL High BEDSIDE GLU 179 Result Comment: MANAGEMENT OF PATIENT CARE PER NURSING PROTOCOL Performed By: #### L501.080 #### [facility] Point of Care [address] [place] [address] BEDSIDE GLUCOSE Collected: 04/20/2018 Status: F Source: [place] 5:02 PM [facility] REPOSITORY TYPE CODE TESTS RESULT OUT OF REFERENCE UNITS RANGE LAB L501.080 70-110 mg/dL High BEDSIDE GLU 140 Result Comment: MANAGEMENT OF PATIENT CARE PER NURSING PROTOCOL Performed By: #### L501.080 #### [facility] Point of Care [address] [place] [address] 12 LEAD ELECTROCARDIOGRAM Observed: 04/20/2018 Status: F Source: [place] 3:38 PM [facility] REPOSITORY [facility] Cardiovascular Services [address] [place] [address] 12 Lead EKG 04/18/18 0546 MR#: [id number] Acct: [id number] Name: FLAVIA CASE Rep #: [id number] : 1950 68 From: Nieves Lei MD Attending Dr: Dusty Soni DO Status: ADM BOZENA Ordering Dr: Marin Sheikh MD Date: 04/18/18 Location: ICU Sex: F C Admitted: 04/18/18 Test Reason : CP ADMIT Blood Pressure : / mmHG Vent. Rate : 067 BPM Atrial Rate : 067 BPM P-R Int : 176 ms QRS Dur : 110 ms QT Int : 448 ms P-R-T Axes : 031 082 037 degrees QTc Int : 473 ms Normal sinus rhythm Nonspecific ST abnormality Abnormal ECG Confirmed by JENNIFFER ONEAL, NIEVES ([id number]), graphic editor SOUMYA BARTH ([id number]) on 04/20/2018 3:37:55 PM Referred By: DR FUNES Confirmed By:NIEVES LEI MD 04/20/18 8809 Date Nieves Lei MD CC: Collin Gamez MD; Dusty Soni DO; Marin Sheikh MD Signed 12 LEAD ELECTROCARDIOGRAM Observed: 04/20/2018 Status: F Source: [place] 3:23 PM [facility] REPOSITORY [facility] Cardiovascular Services [address] [place] [address] 12 Lead EKG 04/18/18 0201 MR#: [id number] Acct: [id number] Name: FLAVIA CASE Rep #: [id number] : 1950 68 From: Nieves Lei MD Attending Dr: Dusty Soni DO Status: ADM BOZENA Ordering Dr: Chikis Jackson MD Date: 04/18/18 Location: ICU Sex: F C Admitted: 04/18/18 Test Reason : CHEST PRESSURE Blood Pressure : / mmHG Vent. Rate : 069 BPM Atrial Rate : 069 BPM P-R Int : 168 ms QRS Dur : 114 ms QT Int : 440 ms P-R-T Axes : 040 087 032 degrees QTc Int : 471 ms Normal sinus rhythm Normal ECG Confirmed by JENNIFFER ONEAL, NIEVES ([id number]), graphic editor SOUMYA BARTH ([id number]) on 04/20/2018 3:22:47 PM Referred By: TIMBO Confirmed By:NIEVES LEI MD 04/20/18 1522 Date Nieves Lei MD CC: Collin Gamez MD; Dusty Soni DO; Chikis Jackson MD Signed BEDSIDE GLUCOSE Collected: 04/20/2018 Status: F Source: [place] 2:46 PM [facility] REPOSITORY TYPE CODE TESTS RESULT OUT OF REFERENCE UNITS RANGE LAB L501.080 70-110 mg/dL High BEDSIDE GLU 156 Result Comment: MANAGEMENT OF PATIENT CARE PER NURSING PROTOCOL Performed By: #### L501.080 #### [facility] Point of Care [address] [place] [address] BEDSIDE GLUCOSE Collected: 04/20/2018 Status: F Source: [place] 6:48 AM [facility] REPOSITORY TYPE CODE TESTS RESULT OUT OF REFERENCE UNITS RANGE LAB L501.080 70-110 mg/dL High BEDSIDE GLU 156 Result Comment: MANAGEMENT OF PATIENT CARE PER NURSING PROTOCOL Performed By: #### L501.080 #### [facility] Point of Care [address] [place], [place] [address] CBC W/DIFF, AUTOMATED Collected: 04/20/2018 Status: F Source: [place] 5:18 AM [facility] REPOSITORY TYPE CODE TESTS RESULT OUT OF RANGE REFERENCE UNITS LAB L100.1000 4.4-11.0 K/mm3 Normal WBC 6.0 LAB L100.1200 4.2-5.4 M/mm3 Normal RBC 4.21 LAB L100.1300 12.0-15.0 g/dl Low HGB 11.3 LAB L100.1400 37-47 % Low HCT 35.4 LAB L100.1500 81-99 fL Normal MCV 84.1 LAB L100.1600 27.0-32.0 pg Low MCH 26.8 LAB L100.1700 32-36 g/gl Low MCHC 31.9 LAB L100.1810 11.6-14.6 % High RDW CV 15.9 LAB L100.1820 35.1-43.9 fl High RDW SD 48.3 LAB L100.1900 150-450 K/mm3 Normal PLT 160 LAB L100.2000 6.2-12.0 fl Normal MPV 11.5 LAB L100.2100 47-70 % Normal NEUT% 57.6 LAB L100.2200 19-41 % Normal LY% 28.7 LAB L100.2300 0-10 % Normal MONO% 9.0 LAB L100.2400 0-5 % Normal EO% 3.2 LAB L100.2500 0-1 % Normal BASO% 1.0 LAB L100.2550 0.0-0.9 % Normal IM GRAN % 0.500 Result Comment: IG% - Immature Granulocytes (promyelocytes, myelocytes and metamyelocytes) > 1% indicates that a LEFT SHIFT is Present. LAB L100.2620 2.0-7.7 X10 3/uL Normal Absolute Neut 3.5 LAB L100.2720 0.83-4.51 X10 3/ul Normal Absolute Lymph 1.73 Performed By: #### L100.0100 #### [facility] [address] [place], [address] BASIC METABOLIC Collected: 04/20/2018 Status: F Source: [place] PROFILE ([facility]) 5:18 AM [facility] REPOSITORY TYPE CODE TESTS RESULT OUT OF RANGE REFERENCE UNITS LAB L501.0100 74-106 mg/dL High GLU 160 Result Comment: Fasting Glucose result greater than or equal to 126 mg/dL suggests DIABETES MELLITUS per A.D.A. criteria. Please note revised GLUCOSE reference range effective 2017. LAB L501.1000 7-18 mg/dL Normal BUN 17 LAB L501.1100 0.55-1.02 mg/dL Normal CREAT,SERUM 0.71 Result Comment: The validity of the calculated GFR AND GFRAA in patients over 70 years has not been determined. Clinical correlation is essential. LAB L501.1110 >60 mL/min Normal EST GFR 86 Result Comment: Non- GFR Calc LAB L501.1115 >60 mL/min Normal EST GFR - AA 104 Result Comment: GFR Calc LAB L501.1255 ml/min Normal Estimated CRCL 43.92 LAB L501.1300 10-20 RATIO High BUN/CRE 23.8 LAB L501.2200 8.5-10 mg/dL Normal .1 CA 8.7 LAB L501.5300 136-14 mmol/L Normal 5 NA 140 LAB L501.5600 3.5-5. mmol/L Normal 1 K 4.3 LAB L501.5900 98-107 mmol/L Normal CL 107 LAB L501.6100 21.0-3 mmol/L Normal 2.0 CO2 26.0 LAB L501.6200 5-15 Normal GAP 7 Performed By: #### L500.2500 #### [facility] [address] [place], [address] PROTHROMBIN TIME W/INR Collected: 04/20/2018 Status: F Source: [place] 5:18 AM [facility] REPOSITORY TYPE CODE TESTS RESULT OUT OF RANGE REFERENCE UNITS LAB L300.4150 11.7-14.9 SECONDS High PROTIME 20.8 LAB L300.4200 Normal INR 1.8 Performed By: #### L300.3900, L300.4310 #### [facility] [address] [place], [address] PARTIAL THROMBOPLAST Collected: 04/20/2018 Status: F Source: [place] TIME 5:18 AM [facility] REPOSITORY TYPE CODE TESTS RESULT OUT OF REFERENCE UNITS RANGE LAB L300.4310 24.1-36.2 Seconds High PTT 42.7 Performed By: #### L300.3900, L300.4310 #### [facility] [address] [place], [address] BEDSIDE GLUCOSE Collected: 04/19/2018 Status: F Source: [place] 11:55 PM [facility] REPOSITORY TYPE CODE TESTS RESULT OUT OF REFERENCE UNITS RANGE LAB L501.080 70-110 mg/dL High BEDSIDE GLU 192 Result Comment: MANAGEMENT OF PATIENT CARE PER NURSING PROTOCOL Performed By: #### L501.080 #### [facility] Point of Care [address] [place] [address] URINALYSIS, COMPLETE Collected: 04/19/2018 Status: F Source: [place] 9:30 PM [facility] REPOSITORY Order Comment: How was Urine Obtained? GRILL CHEF TO SPECIFY TYPE CODE TESTS RESULT OUT OF RANGE REFERENCE UNITS LAB L400.3000 Yellow COLOR Normal Straw LAB L400.3050 Clear Normal CLARITY Clear LAB L400.3200 Normal mg/dl Normal GLUCOSE, UR Normal LAB L400.3300 Negative mg/dL Normal BILIRUBIN URINE Negative LAB L400.3400 Negative mg/dl Normal KETONE UR Negative LAB L400.3465 1.002-1.030 Normal SP.GR. DIPSTX 1.010 LAB L400.3550 5.0 - 8.0 pH UR Normal 6.0 LAB L400.3600 Negative mg/dl PROT Normal DIPSTX Negative LAB L400.3700 Normal mg/dl Normal UROBILI Normal LAB L400.3750 Negative Normal NITRITE UR Negative LAB L400.3780 Negative /ul Normal OCCULT BLOOD-UR Negative LAB L400.3800 Negative /ul High LEUK 25 ESTERASE LAB L400.4050 0-5 /hpf WBC Normal 0-5 SEEN LAB L400.4100 0-5 /hpf 0 Normal RBC-UA SEEN LAB L400.4150 5-10 /hpf SQUAM Normal EPI 0-5 SEEN LAB L400.4300 None Seen /hpf Normal BACTERIA RARE LAB L400.4350 <or=2+ /hpf 0 Normal MUCUS, URINE SEEN Performed By: #### L400.0001 #### [facility] [address] [place], [address] BEDSIDE GLUCOSE Collected: 04/19/2018 Status: F Source: [place] 5:21 PM [facility] REPOSITORY TYPE CODE TESTS RESULT OUT OF REFERENCE UNITS RANGE LAB L501.080 70-110 mg/dL High BEDSIDE GLU 172 Result Comment: MANAGEMENT OF PATIENT CARE PER NURSING PROTOCOL Performed By: #### L501.080 #### [facility] Point of Care [address] [place], [place] [address] PROTHROMBIN TIME W/INR Collected: 04/19/2018 Status: F Source: [place] 4:05 PM [facility] REPOSITORY TYPE CODE TESTS RESULT OUT OF RANGE REFERENCE UNITS LAB L300.4150 11.7-14.9 SECONDS High PROTIME 32.0 LAB L300.4200 Normal INR 3.1 Performed By: #### L300.3900 #### [facility] [address] [place], [address] BEDSIDE GLUCOSE Collected: 04/19/2018 Status: F Source: [place] 11:55 AM [facility] REPOSITORY TYPE CODE TESTS RESULT OUT OF REFERENCE UNITS RANGE LAB L501.080 70-110 mg/dL High BEDSIDE GLU 216 Result Comment: MANAGEMENT OF PATIENT CARE PER NURSING PROTOCOL Performed By: #### L501.080 #### [facility] Point of Care [address] [place], [place] [address] PROGRESS Observed: 04/19/2018 Status: COMPLETED Source: [place] 7:57 AM [facility] REPOSITORY HNO ID: [id number] Author: Keri Mo) Vera Service: (none) Author Type: Physician Type: Progress Notes Filed: 04/19/2018 7:57 AM Note Text: Reviewed. Thanks. BEDSIDE GLUCOSE Collected: 04/19/2018 Status: F Source: [place] 7:04 AM [facility] REPOSITORY TYPE CODE TESTS RESULT OUT OF REFERENCE UNITS RANGE LAB L501.080 70-110 mg/dL High BEDSIDE GLU 154 Result Comment: MANAGEMENT OF PATIENT CARE PER NURSING PROTOCOL Performed By: #### L501.080 #### [facility] Point of Care [address] [place] [address] PROTHROMBIN TIME W/INR Collected: 04/19/2018 Status: F Source: [place] 6:45 AM [facility] REPOSITORY TYPE CODE TESTS RESULT OUT OF RANGE REFERENCE UNITS LAB L300.4150 11.7-14.9 SECONDS High PROTIME 33.7 LAB L300.4200 Normal INR 3.3 Performed By: #### L300.3900 #### [facility] [address] [place], [address] BEDSIDE GLUCOSE Collected: 04/19/2018 Status: F Source: [place] 12:22 AM [facility] REPOSITORY TYPE CODE TESTS RESULT OUT OF REFERENCE UNITS RANGE LAB L501.080 70-110 mg/dL High BEDSIDE GLU 130 Result Comment: MANAGEMENT OF PATIENT CARE PER NURSING PROTOCOL Performed By: #### L501.080 #### [facility] Point of Care [address] [place] [address] CONSULTATION Observed: 04/18/2018 Status: F Source: [place] 9:00 PM [facility] REPOSITORY [facility] Medical Records Department [address] [place] [address] Consultation 04/18/18 2044 MR#: [id number] Acct: [id number] Name: FLAVIA CASE Monster Rep #: [id number] : 1950 68 From: Nieves Lei MD PCP: Collin Gamez MD Status: ADM BOZENA Y Location: [place] [address] Problem List (1) Chest pain Status: Acute (2) CAD (coronary artery disease) Status: Chronic (3) Hx of CABG Status: Chronic (4) H/O prosthetic aortic valve replacement Status: Chronic Comment: 1994 (5) Paroxysmal atrial fibrillation with RVR Status: Chronic (6) Sinus bradycardia Status: Inactive (7) HLD (hyperlipidemia) Status: Chronic (8) Hypertension Status: Chronic (9) Type 2 diabetes mellitus Status: Chronic (10) Chronic obstructive lung disease Status: Chronic (11) Morbid obesity Status: Chronic Reason for Consult Date of Consultation: 04/18/18 History of Present Illness: The patient is a 68 year old white female who has previously been followed by Dr. Wade Corado formerly of [facility] cardiology who presents back to the [facility] for the third time this month for a variety of concerns of chest discomfort, palpitations, and anxiety that she may need a redo open heart surgery and a redo aortic valve replacement and readily admitting she is afraid to go home. She has been evaluated earlier this month x2 by Ferny Marie MD of the [facility]. During this time she is undergone noninvasive evaluation and medication adjustment. It appears that she had a transthoracic echocardiogram performed on 03/27/2018. At that time her left ventricle was described as normal with an LVEF of 60%, mild MR, a stable appearing mechanical aortic valve prosthesis with a peak gradient of approximately 69 mmHg, mean gradient of approximately 36 mmHg, and an aortic valve area of approximately 1.0 cm . According to previous medical records it appeared that this was considered similar to previous outside [facility] echocardiographic studies. She also underwent evaluation with a pharmacologic stress nuclear imaging study on 03/28/2018. According to report a small anterolateral infarct cannot be completely excluded, there is no evidence of inducible ischemia, the LVEF was 64%. There apparently were concerns based upon her underlying cardiac rate and rhythm with atrial fibrillation with subsequent postconversion pauses and bradycardia. Her medications were adjusted. She was eventually released home. However, there were comments that she should be considered for further evaluation with diagnostic cardiac catheterization. This did not occur during either 1 of her hospitalizations. She notes she was to follow-up with Dr. Schrader today. However she states based upon concerns of recurrent chest pressure, a quivering sensation in her chest, followed by the anxiety of being at home, superimposed upon chronic shortness of breath/dyspnea and peripheral pitting edema, she elected to present back to the hospital for reevaluation. Thus far her cardiac enzymes have been negative. Her ECG has demonstrated sinus rhythm with nonspecific ST segment abnormality. Her INR was therapeutic at 4.0. [] Past Medical History Allergies/Adverse Reactions: Allergies adhesive Allergy (Verified 04/18/18 02:03) Rash fluticasone propionate [From Advair Diskus] Allergy (Verified 04/18/18 02:03) chest pain gabapentin [From Neurontin] Allergy (Verified 04/18/18 02:03) Swelling of feet and legs salmeterol xinafoate [From Advair Diskus] Allergy (Verified 04/18/18 02:03) chest pains albuterol [From Ventolin HFA] Adverse Reaction (Verified 04/18/18 02:03) jittery TOO JITTERY cephalexin monohydrate [From Keflex] Adverse Reaction (Verified 04/18/18 02:03) abdominal cramping diltiazem [From Cardizem] Adverse Reaction (Verified 04/18/18 06:08) Other pregabalin Adverse Reaction (Verified 04/18/18 02:03) makes me slow to respond Home Medications: Ambulatory Orders Medication Instructions Recorded Aspirin [Aspirin EC] 81 mg PO DAILY 10/23/16 Furosemide [Lasix] 20 mg PO DAILY 10/23/16 Lansoprazole [Prevacid] 30 mg PO BID 10/23/16 Past Medical History (Chronic Problems): Chronic Problems HLD (hyperlipidemia) (Chronic) Moderate aortic stenosis (Chronic) Morbid obesity (Chronic) Paroxysmal atrial fibrillation with RVR (Chronic) H/O prosthetic aortic valve replacement (Chronic) 1994 CAD (coronary artery disease) (Chronic) Hx of CABG (Chronic) Type 2 diabetes mellitus (Chronic) Hypertension (Chronic) Chronic obstructive lung disease (Chronic) Surgical History: - - aortic valve replacement 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: No pertinent psych hx 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 Denies: Orthopnea, PND, Peripheral Edema, Lightheadedness, Dizziness, Near Syncope, Syncope Respiratory: Reports: Shortness of Breath. Denies: Cough, Sputum Production, Hemoptysis Gastrointestinal: Denies: Hematemesis, Hematochezia, Melena Genitourinary: Denies: Dysuria, Hematuria Skin: Denies: Rash Subjectve: This is a 68-year-old white female who appears resting comfortably at the moment in no acute distress. Objective: Vital Signs Temp Pulse Resp BP Pulse Ox 97 F L 65 16 133/49 H 92 04/18/18 15:29 04/18/18 19:05 04/18/18 15:29 04/18/18 15:29 04/18/18 15:29 Oxygen Flow Rate (L/min) 2 Oxygen Delivery Method Room Air Weight: 231 lb 14.821 oz Body Mass Index (BMI) 41.1 Intake and Output for Last 24 Hours Intake Total 770 / 770 Balance 770 / 770 General: Awake, Alert, Oriented x 3, Cooperative, No Acute Distress, Obese HEENT: Atraumatic, Normocephalic, PERRL, EOMI, Sclera Non Icteric Oral: Moist Mucosa Neck: Supple, Good ROM, No JVD Lungs: Clear to auscultation Cardiovascular: Regular Rhythm, Normal S1, Josephine Prosthetic S2 Vascular: No Carotid Bruits Abdomen: Bowel Sounds Present, Soft Extremities: No Cyanosis, No Clubbing, No edema Neurological: No Focal Motor or Sensory Deficit Psych/Mental Status: Appropriate 04/18/18 02:10: WBC 5.5, RBC 4.29, Hgb 11.7 L, Hct 35.5 L, MCV 82.8, MCH 27.3, MCHC 33.0, RDW 16.0 H, RDW Differential 48.1 H, Plt Count 169, MPV 11.8, Immature Gran % (Auto) 0.400, Neut % (Auto) 57.8, Lymph % (Auto) 26.6, [place] % (Auto) 9.4, Eos % (Auto) 4.5, Baso % (Auto) 1.3 H, Absolute Neuts (auto) 3.2, Total Counted Not Reportable 04/18/18 02:10: Sodium 139, Potassium 3.8, Chloride 107, Carbon Dioxide 22.0, Anion Gap 10, BUN 18, Creatinine 0.83, Est GFR (MDRD) Af Amer 87, Est GFR (MDRD) Non-Af 72, BUN/Creatinine Ratio 21.6 H, Glucose 178 H, Calcium 8.9, Magnesium 2.0, Troponin I < 0.015 04/18/18 03:00: PT 39.1 H, INR 4.0 H* 04/18/18 05:55: Triglycerides 205 H, Cholesterol 123, LDL Cholesterol 59, VLDL Cholesterol 41 H, HDL Cholesterol 23 L 04/18/18 05:55: Troponin I < 0.015 04/18/18 09:03: Troponin I < 0.015 Rhythm: Sinus rhythm EKG: As noted above ECHO: As noted above Stress Test: As noted above CT Surgery: VS report unavailable for review at this time, however, based on previous [facility] medical record there is comments that the patient received a SHELBY to the LAD, and SVG to the LCx, and an SVG to the RCA CXR: Preliminary evaluation: Postoperative changes: No acute cardiopulmonary disease process appreciated: Please see official report Assessment/Plan 1. CAD status post CABG-remote The patient has a history of CAD status post remote CABG. She has been having recurrent chest discomfort. She has undergone evaluation with cardiac enzymes which have been negative. Her ECG demonstrates no acute changes. She is also undergone evaluation earlier this month with both a transthoracic echocardiogram and an exercise tolerance test/imaging study-pharmacologic. The studies demonstrated her left ventricle to be preserved with respect to wall motion and systolic function and no definitive evidence of ongoing myocardial ischemia. The patient has been considered based on the previous cardiovascular consultation notes for cardiac catheterization. However this is not been accomplished thus far. At the present time the patient can continue to be monitored. The patient can be considered for further evaluation with diagnostic cardiac catheterization. However her anticoagulant will have to be placed on hold and her INR will have to be allowed to decrease. Once that occurs her anticoagulant therapy can be adjusted to IV heparin as a bridge with respect to her aortic valve prosthesis. She could then undergo diagnostic cardiac catheterization, and eventually be placed back on IV heparin and then subsequently her oral anticoagulant. 2. Status post aortic valve replacement The patient does have a mechanical aortic valve prosthesis. Her most recent noninvasive study is as noted above. It is unclear at this time, noting that the report states there is no significant change compared to previous [facility] echocardiogram, as to whether or not she is symptomatic with respect to her aortic valve based upon her gradients, etc. and what it can some point in time being need for a redo aortic valve replacement surgery. In the interim she should continue AHA antibiotic prophylaxis as deemed appropriate and anticoagulant therapy as deemed appropriate. 3. Paroxysmal atrial fibrillation At the present time she remains in sinus rhythm. She will continue a combination of rate control therapy, antiarrhythmic therapy, and anticoagulant therapy as deemed appropriate. 4. Bradycardia Apparently there is been concerns in the past that she has developed episodes of bradycardia especially post return to sinus rhythm. Thus her medications have been adjusted in the past. At the moment her rate and rhythm. Be stable. She will continue to be followed. 5. Hyperlipidemia She will continue medical management. 6. Hypertension Her blood pressure can be followed. Her medications can be adjusted as needed. 7. Diabetes The patient will need to continue on her care of internal medicine for her diabetes. 8. COPD The patient does have a history of COPD. This can contribute to her shortness of breath and dyspnea. He could also potentially contribute to concerns of her atrial dysrhythmia. She will need continue evaluation care per internal medicine and pulmonology as deemed appropriate. 9. Obesity The patient remains overweight. Again this could contribute to her shortness of breath and dyspnea as well. He has been counseled on dietary adjustment and exercise as best as possible and attempt to bring her weight under better control. This note was generated using a voice recognition system and there may be incorrect words, spelling or punctuation that were not noted when reviewing the office note prior to saving. 04/18/18 2100 <Electronically signed by Nieves Lei MD> Date Nieves Lei MD Cosigner Signature (if applicable): Date CC: Collin Gamez MD; Wade Corado MD; Nieves Lei MD Signed BEDSIDE GLUCOSE Collected: 04/18/2018 Status: F Source: [place] 5:28 PM [facility] REPOSITORY TYPE CODE TESTS RESULT OUT OF REFERENCE UNITS RANGE LAB L501.080 70-110 mg/dL High BEDSIDE GLU 186 Result Comment: MANAGEMENT OF PATIENT CARE PER NURSING PROTOCOL Performed By: #### L501.080 #### [facility] Point of Care [address] [place] [address] BEDSIDE GLUCOSE Collected: 04/18/2018 Status: F Source: [place] 11:00 AM [facility] REPOSITORY TYPE CODE TESTS RESULT OUT OF REFERENCE UNITS RANGE LAB L501.080 70-110 mg/dL High BEDSIDE GLU 148 Result Comment: MANAGEMENT OF PATIENT CARE PER NURSING PROTOCOL Performed By: #### L501.080 #### [facility] Point of Care [address] [place] [address] TROPONIN-I Collected: 04/18/2018 Status: F Source: [place] 9:03 AM [facility] REPOSITORY Order Comment: 'TROP' Serial specimen #1, #2 or #3: 3 TYPE CODE TESTS RESULT OUT OF RANGE REFERENCE UNITS LAB L501.4010 <0.045 ng/mL Normal < 0.015 TROPONIN-I Result Comment: TROPONIN-I EXPECTED VALUES <0.045 Negative 0.045 - 0.590 Consistent with Cardiac Damage > OR = 0.600 Critical Value Not every elevated troponin is indicative of FL. These values should be used with clinical judgement in examining the patient's clinical picture for diagnosis. To establish a diagnosis of FL versus myocardial injury, there must be a demonstrated rise and/or fall in the troponin values, in addition to ischemic symptoms, EKG changes, new regional wall motion abnormality, and/or angiographical evidence. PLEASE NOTE: REFERENCE RANGES EDITED 17 Performed By: #### L501.4010 #### [facility] [address] [place], [address] EMERGENCY DEPARTMENT Observed: 04/18/2018 Status: F Source: [place] SUMMARY 7:25 AM [facility] REPOSITORY [facility] Medical Records Department [address] [place] [address] Emergency Department Summary 04/18/18 0426 MR#: [id number] Acct: [id number] Name: FLAVIA CASE Rep #: [id number] : 1950 68 From: Chikis Jackson MD PCP: Collin Gamez MD Status: ADM BOZENA - ER Visit Summary Date of Service: 04/18/18 Chief Complaint: Chest pain History of Present Illness: The patient is a 68 F with onset of chest pain which she describes as tightness and heaviness tonight. She also had palpitations. Pain was relieved with aspirin and 2 sublingual nitro. Patient was admitted to the hospital April 07. At that time she had paroxysmal A. fib and was started on amiodarone. In looking at cardiology consult note, it appears there was some thought given to performing a heart cath as patient does have known history of cardiac disease, but decision was made to hold off at that time until it can be further discussed with her personal network coordinator. Physical Examination: Blood pressure is 182/64, temperature 97.8, heart rate 71, respiratory rate 16, pulse ox 94% on room air. Patient sitting upright in bed no acute distress. Head neck examination is unremarkable. Heart is regular rate and rhythm. Lung sounds are clear. Abdomen is soft nontender. Lower extremity examination reveals no focal calf tenderness. She has strong distal pulses. Test Results: EKG is sinus at 69 with no sign of acute ischemia. Portable chest x-ray shows postoperative changes and mild cardiomegaly. CBC was normal white count with hemoglobin 11.7. Chemistry studies significant for glucose of 178. INR is 4.0. Troponin is less than 0.015. Emergency Department Course and Treatment: Patient had been given aspirin and sublingual nitro with EMS. She has not had recurrent chest pain while here. Patient certainly does have some element of anxiety, she also has known history of cardiac disease and it does appear there was thought given to heart cath on last admission. Patient will be admitted for cycling of cardiac enzymes and further discussion with cardiology regarding any further testing at this time. Hospitalist has been contacted for admission. Treatment Plan: [] Disposition: Admit Impression: Chest pain This note was generated with [employer] dictation software. It may contain incorrect words, spelling, and punctuation that were not noted in review of the chart prior to signing ED Disposition - Plan for ED Patient: Chief Complaint: Chest Pain Referrals: Collin Gamez MD [Primary Care Provider] - What to do if you have Problems For any increased pain, shortness of breath, bleeding, nausea or vomiting, chest pain, or any unexpected problems, contact your Primary Care Provider. Call [facility] ([phone]) or report to the closest Emergency Room. Call 911 if necessary. 04/18/18 7852 <Electronically signed by Chikis Jackson MD> Date Chikis Jackson MD Cosigner Signature (If Indicated): Date CC: Collin Gamez MD BEDSIDE GLUCOSE Collected: 04/18/2018 Status: F Source: [place] 6:50 AM [facility] REPOSITORY TYPE CODE TESTS RESULT OUT OF REFERENCE UNITS RANGE LAB L501.080 70-110 mg/dL High BEDSIDE GLU 153 Result Comment: MANAGEMENT OF PATIENT CARE PER NURSING PROTOCOL Performed By: #### L501.080 #### [facility] Point of Care [address] [facility] [place], [place] [address] LIPID PROFILE Collected: 04/18/2018 Status: F Source: [place] 5:55 AM [facility] REPOSITORY TYPE CODE TESTS RESULT OUT OF RANGE REFERENCE UNITS LAB L501.4900 200 mg/dL Normal CHOL 123 Result Comment: <200 mg/dL Desirable 200-240 mg/dL Borderline >240 mg/dL High Risk LAB L501.5000 mg/dL High TRIG 205 Result Comment: The drugs N-Acetylcysteine and Metamizole may falsely depress this assay. Serum Triglycerides Reference Interval Normal <150 mg/dL Borderline high 150 - 199 mg/dL High 200 - 499 mg/dL Very High > or = 500 mg/dL LAB L501.6400 mg/dL Low HDL 23 Result Comment: The drugs N-Acetylcysteine and Metamizole may falsely depress this assay. Reference Range HDL <40 mg/dL Low HDL Cholesterol HDL >or= 60 mg/dL High HDL Cholesterol LAB L501.6500 0-130 mg/dL Normal LDL 59 LAB L501.6600 5-40 mg/dL High VLDL 41 Performed By: #### L500.4100 #### [facility] [address] [facility] [facility] [place], [address] TROPONIN-I Collected: 04/18/2018 Status: F Source: [place] 5:55 AM [facility] REPOSITORY Order Comment: 'TROP' Serial specimen #1, #2 or #3: 2 TYPE CODE TESTS RESULT OUT OF RANGE REFERENCE UNITS LAB L501.4010 <0.045 ng/mL Normal < 0.015 TROPONIN-I Result Comment: TROPONIN-I EXPECTED VALUES <0.045 Negative 0.045 - 0.590 Consistent with Cardiac Damage > OR = 0.600 Critical Value Not every elevated troponin is indicative of FL. These values should be used with clinical judgement in examining the patient's clinical picture for diagnosis. To establish a diagnosis of FL versus myocardial injury, there must be a demonstrated rise and/or fall in the troponin values, in addition to ischemic symptoms, EKG changes, new regional wall motion abnormality, and/or angiographical evidence. PLEASE NOTE: REFERENCE RANGES EDITED 17 Performed By: #### L501.4010 #### [facility] [address] [facility] [place], [address] HISTORY AND PHYSICAL Observed: 04/18/2018 Status: F Source: [place] EXAM 5:47 AM [facility]POSIT[facility] Medical Records Department [address] [place] [address] History and Physical 04/18/18 0408 MR#: [id number] Acct: [id number] Name: FLAVIA CASE Rep #: [id number] : 1950 68 From: Marin Sheikh MD PCP: Collin Gamez MD Status: ADM BOZENA Y Location: [place] [address] Problem List (1) Chest pain at rest Status: Acute History of Present Illness Date of Admission: 04/18/18 Chief Complaint: chest Pain The patient is a 68 year old F with a significant history of morbid obesity; anxiety; aortic stenosis status post mechanical [place] valve; paroxysmal A. fib; CAD status post CABG; type 2 diabetes; hypertension and chronic obstructive lung disease who presented with epigastric to substernal progressively worsening chest pain that started a few hours prior to her admission. Her chest pain started when patient was at rest. Her chest pain began suddenly when she was playing computer games. She described her chest pain as squeezing and pressure. Her chest pain radiates to her bilateral neck. Associated with her symptoms is anxiety, shortness of breath, headache and diaphoresis. Further she reports a feeling of her heart fluttering. She denies any nausea or vomiting. There is no aggravating factor to her chest pain. Chest pain was somewhat relieved with receiving 2 tablets of nitroglycerin. In the last 24 hours she took 4 tablets of aspirin: her routine 1 tablet that she takes in the morning and 3 tablets that was given by the paramedics when patient had chest pain. She reported that at home when the chest pain began her systolic blood pressure was in the high between 220s and her diastolic blood pressure was 104. Paramedics reported that patient was in sinus rhythm with PVCs At emergency department her INR was 4.0. As stated the above patient had CABG at 22 years ago. At the same time he had aortic valve replacement. Patient was admitted at our hospital and discharged about 1 week ago. At that time she was started on amiodarone because of A. fib. Patient reported that on a previous admission because of her Afib a discussion was made on permanent pacemaker. She also reported that on her last admission discussion was made on cardiac cath. Emergency department doctor reported that on patient last admission cardiac cath was not done because of uncertainty in stopping her Coumadin and beginning heparin drip. Patient sees Dr. Schrader, cardiology outpatient. Last time patient was here she saw Dr. Marie. Past Medical History Past Medical History (Chronic Problems): Chronic Problems Moderate aortic stenosis (Chronic) Morbid obesity (Chronic) H/O prosthetic aortic valve replacement (Chronic) 1994 CAD (coronary artery disease) (Chronic) Hx of CABG (Chronic) Type 2 diabetes mellitus (Chronic) Hypertension (Chronic) Chronic obstructive lung disease (Chronic) Allergies adhesive Allergy (Verified 04/18/18 02:03) Rash fluticasone propionate [From Advair Diskus] Allergy (Verified 04/18/18 02:03) chest pain gabapentin [From Neurontin] Allergy (Verified 04/18/18 02:03) Swelling of feet and legs salmeterol xinafoate [From Advair Diskus] Allergy (Verified 04/18/18 02:03) chest pains albuterol [From Ventolin HFA] Adverse Reaction (Verified 04/18/18 02:03) jittery TOO JITTERY cephalexin monohydrate [From Keflex] Adverse Reaction (Verified 04/18/18 02:03) abdominal cramping pregabalin Adverse Reaction (Verified 04/18/18 02:03) makes me slow to respond Home Medications: Ambulatory Orders Medication Instructions Recorded Aspirin [Aspirin EC] 81 mg PO DAILY 10/23/16 Furosemide [Lasix] 20 mg PO DAILY 10/23/16 Surgical History: - - aortic valve replacement 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: No pertinent psych hx 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 Denies: Sinus Congestion, Sinus Drainage Cardiovascular: Reports: Chest Pain, Chest Pressure, Chest Tightness. Denies: Palpitations Respiratory: Reports: Shortness of Breath. Denies: Cough, Shortness of breath at rest, Sputum production Gastrointestinal: Denies: Abdominal Pain, Nausea, Vomiting Genitourinary: Denies: Dysuria Musculoskeletal: Reports: Neck Pain. Denies: Joint Pain, Joint Tenderness Skin: Denies: Rash, Wounds Neurological: Denies: Numbness, Tingling, Focal weakness Psychiatric: Denies: Anxiety, Depression, Homicidal Ideations, Suicidal Ideations Hematologic/ Lymphatic: Denies: Easy Bruising, Easy Bleeding VTE Information - Inpt Only VTE Present on Admission: No VTE Mechan Device Prophylaxis: SCD's VTE Pharm Prophylaxis ordered?: No Patient Problems: Active and Suspected Problems Chest pain at rest (Acute) Chest pain (Acute) - Physical Exam General: Alert, Oriented x3, Cooperative HEENT: Atraumatic, PERRLA, EOMI, Normocephalic Neck: Supple, No JVD, Negative Carotid Bruits Lungs: Clear to auscultation, Normal air movement Cardiovascular: Regular rate, No murmurs Abdomen: Bowel Sounds Present, Soft, Non Tender Extremities: No edema, Capillary Refill Less than 3 Seconds Skin: No rashes, No breakdown Musculoskeletal: No Tenderness to Palpation of Joints or Extremities Neurological: Neuro grossly intact Psych/Mental Status: Normal Affect, Appropriate Vital Signs Temp Pulse Resp BP Pulse Ox 97.8 F 65 18 181/67 H 96 04/18/18 01:57 04/18/18 04:04 04/18/18 04:04 04/18/18 04:04 04/18/18 04:04 Oxygen Flow Rate (L/min) 2 Oxygen Delivery Method Room Air Weight: 106.5 kg Body Mass Index (BMI) 41.5 Laboratory Tests Past 24 Hrs Assessment/Plan All Active Problems Chest pain at rest (Acute) Chest pain (Acute) Anxiety about health (Acute) Subtherapeutic international normalized ratio (INR) (Acute) Paroxysmal atrial fibrillation with RVR (Acute) The patient is a 68 year old F with a significant history of morbid obesity; anxiety; aortic stenosis status post mechanical [place] valve; paroxysmal A. fib; CAD status post CABG; type 2 diabetes; hypertension and chronic obstructive lung disease who presented with epigastric to substernal progressively worsening chest pain Chest pain Different diagnosis of her chest pain includes hypertensive emergency; aortic stenosis; paroxysmal A. fib; anxiety or CAD Admit to a monitored bed on PCU CXR independently reviewed confirms cardiomegaly; previous sternotomy ; and enlargement of the pulmonary vessels without congestion. EKG independently reviewed confirms sinus rhythm ASA 81 mg p.o. daily SL NTG 0.4 mg prn as needed for chest pain Serial cardiac enzymes Stat EKG as needed for chest pain Since a cardiac cath was being planned on the last admission we will consult cardiology for risk stratification and to optimize management. Will control blood pressure by continuing home amlodipine; atenolol; Cozaar; Lasix and Imdur. We will add as needed labetalol for systolic blood pressure more than 160. Will check fasting lipids. We will continue home Lipitor Aortic stenosis status post mechanical [place] valve. Last echocardiogram was on 03/27/2018. It showed a peak aortic valve gradient of 69. Mean aortic valve gradient of 37. Moderate aortic stenosis. Calculated aortic valve area by continuity equation was 0.9 cm . Also echo showed stable appearing mechanical aortic valve apparatus. She reports that her cardiology wants her INR between 3 and 4. On admission her INR was 4. Would hold off Coumadin at this time. Repeat INR next day. Cardiology consult as above to optimize management. Hypertensive emergency She reports that at home at the time of chest pain her blood pressure was in the high 220s; and a diastolic blood pressure was 104. Her systolic blood pressure at emergency department was in the 180s. We will continue home blood pressure medications as above; and add as needed labetalol for systolic blood pressure more than 160. COPD Patient has associated shortness of breath with chest pain. Her chest pain is likely due to cardiac origin. Her lungs are clear, not diminished; no wheezing. COPD is probably stable As needed albuterol continued. Diabetes mellitus On admission blood pressure was within goal of 140s-180. Since we will keep patient n.p.o. until cardiology sees patient will order fingerstick q. before meals at bedtime and hold home metformin; Tradjenta and glipizide. Low-dose correction scale ordered. Paroxysmal A. fib On admission patient was in sinus rhythm. Amiodarone and atenolol continued Anxiety Buspirone continued Overactive bladder Oxybutynin continued. DVT prophylaxis SCD ordered. Patient supratherapeutic on Coumadin. Code Visit OBSV E AND M: [id number] Initial observation care L3 04/18/18 0547 <Electronically signed by Marin Sheikh MD> Date Marin Sheikh MD Cosigner Signature: Date (if applicable) CC: Collin Gamez MD; Marin Sheikh MD Signed PROTHROMBIN TIME W/INR Collected: 04/18/2018 Status: F Source: [place] 3:00 AM [facility] REPOSITORY TYPE CODE TESTS RESULT OUT OF REFERENCE UNITS RANGE LAB L300.4150 11.7-14.9 SECONDS High PROTIME 39.1 LAB L300.4200 High alert INR 4.0 Result Comment: CRITICAL VALUE VERIFIED. CALLED TO ADEOLA HENDERSON 04/18/18 Javier Johnson. RESULTS READ BACK BY SAME . Performed By: #### L300.3900 #### [facility] [address] [place], [address] CHEST 1 VIEW Observed: 04/18/2018 Status: F Source: [place] (PORTABLE) 2:21 AM [facility] REPOSITORY [facility] Imaging Services [address] [place] [address] Chest 1 View (Portable) MR#: [id number] Acct: [id number] Name: FLAVIA CASE Rep #: [id number] : 1950 F 68 From: Brittany Barth MD PCP: Collin Gamez MD Status: REG ER Study: Chest 1 View (Portable) Date of Exam: 04/18/18 Exam# [id number] Ordering Dr: Chikis Jackson MD STUDY: X-RAY CHEST REASON FOR EXAM: Female, 68 years old. Chest pain and palpitations. TECHNIQUE: Single AP portable view of the chest. COMPARISON: April 07, 2018. FINDINGS: Cardiac monitoring leads are present. Patient has had a sternotomy. The lungs are clear and expanded. There is no demonstrated pleural abnormality. There is mild cardiac enlargement. Normal mediastinum and janice. There is prominence of the pulmonary hilar arteries without peripheral pulmonary vascular congestion. Normal visualized aortic arch and descending thoracic aorta. There is mild curvature of the thoracic spine with convexity towards the right. There are degenerative changes of both shoulders. Normal visualized ribs, clavicles, and shoulders. There is no demonstrated abnormality of the visualized soft tissue structures of the upper abdomen. RAD/Chest 1 View (Portable) IMPRESSION: Postoperative changes and mild cardiomegaly without evidence of acute cardiopulmonary disease. Electronically Signed: Brittany Barth MD at 3:12 EST , Service support , CC: Collin Gamez MD; Chikis Jackson MD Tax Associate Attorney: Signed CBC W/DIFF, AUTOMATED Collected: 04/18/2018 Status: F Source: [place] 2:10 AM [facility] REPOSITORY TYPE CODE TESTS RESULT OUT OF RANGE REFERENCE UNITS LAB L100.1000 4.4-11.0 K/mm3 Normal WBC 5.5 LAB L100.1200 4.2-5.4 M/mm3 Normal RBC 4.29 LAB L100.1300 12.0-15.0 g/dl Low HGB 11.7 LAB L100.1400 37-47 % Low HCT 35.5 LAB L100.1500 81-99 fL Normal MCV 82.8 LAB L100.1600 27.0-32.0 pg Normal MCH 27.3 LAB L100.1700 32-36 g/gl Normal MCHC 33.0 LAB L100.1810 11.6-14.6 % High RDW CV 16.0 LAB L100.1820 35.1-43.9 fl High RDW SD 48.1 LAB L100.1900 150-450 K/mm3 Normal PLT 169 LAB L100.2000 6.2-12.0 fl Normal MPV 11.8 LAB L100.2100 47-70 % Normal NEUT% 57.8 LAB L100.2200 19-41 % Normal LY% 26.6 LAB L100.2300 0-10 % Normal MONO% 9.4 LAB L100.2400 0-5 % Normal EO% 4.5 LAB L100.2500 0-1 % High BASO% 1.3 LAB L100.2550 0.0-0.9 % Normal IM GRAN % 0.400 Result Comment: IG% - Immature Granulocytes (promyelocytes, myelocytes and metamyelocytes) > 1% indicates that a LEFT SHIFT is Present. LAB L100.2620 2.0-7.7 X10 3/uL Normal Absolute Neut 3.2 LAB L100.2720 0.83-4.51 X10 3/ul Normal Absolute Lymph 1.47 Performed By: #### L100.0100 #### [facility] [address] [place], [address] BASIC METABOLIC Collected: 04/18/2018 Status: F Source: [place] PROFILE (BMP) 2:10 AM [facility] REPOSITORY TYPE CODE TESTS RESULT OUT OF RANGE REFERENCE UNITS LAB L501.0100 74-106 mg/dL High GLU 178 Result Comment: Fasting Glucose result greater than or equal to 126 mg/dL suggests DIABETES MELLITUS per A.D.A. criteria. Please note revised GLUCOSE reference range effective 2017. LAB L501.1000 7-18 mg/dL Normal BUN 18 LAB L501.1100 0.55-1.02 mg/dL Normal CREAT,SERUM 0.83 Result Comment: The validity of the calculated GFR AND GFRAA in patients over 70 years has not been determined. Clinical correlation is essential. LAB L501.1110 >60 mL/min Normal EST GFR 72 Result Comment: Non- GFR Calc LAB L501.1115 >60 mL/min Normal EST GFR - AA 87 Result Comment: GFR Calc LAB L501.1255 ml/min Normal Estimated CRCL 52.92 LAB L501.1300 10-20 RATIO High BUN/CRE 21.6 LAB L501.2200 8.5-10 mg/dL Normal .1 CA 8.9 LAB L501.5300 136-14 mmol/L Normal 5 NA 139 LAB L501.5600 3.5-5. mmol/L Normal 1 K 3.8 LAB L501.5900 98-107 mmol/L Normal CL 107 LAB L501.6100 21.0-3 mmol/L Normal 2.0 CO2 22.0 LAB L501.6200 5-15 Normal GAP 10 Performed By: #### L500.2500, L501.4010, L501.5200 #### [facility] [address] [place], [address] TROPONIN-I Collected: 04/18/2018 Status: F Source: [place] 2:10 AM [facility] REPOSITORY TYPE CODE TESTS RESULT OUT OF RANGE REFERENCE UNITS LAB L501.4010 <0.045 ng/mL Normal < 0.015 TROPONIN-I Result Comment: TROPONIN-I EXPECTED VALUES <0.045 Negative 0.045 - 0.590 Consistent with Cardiac Damage > OR = 0.600 Critical Value Not every elevated troponin is indicative of FL. These values should be used with clinical judgement in examining the patient's clinical picture for diagnosis. To establish a diagnosis of FL versus myocardial injury, there must be a demonstrated rise and/or fall in the troponin values, in addition to ischemic symptoms, EKG changes, new regional wall motion abnormality, and/or angiographical evidence. PLEASE NOTE: REFERENCE RANGES EDITED 17 Performed By: #### L500.2500, L501.4010, L501.5200 #### [facility] [address] [place], [address] MAGNESIUM Collected: 04/18/2018 Status: F Source: [place] 2:10 AM [facility] REPOSITORY TYPE CODE TESTS RESULT OUT OF RANGE REFERENCE UNITS LAB L501.5200 1.6-2.6 mg/dL Normal MG 2.0 Performed By: #### L500.2500, L501.4010, L501.5200 #### [facility] [address] [place], [address] PROGRESS Observed: 04/16/2018 Status: COMPLETED Source: [place] 11:34 AM [facility] REPOSITORY HNO ID: [id number] Author: Himanshu Green) Sybil Service: (none) Author Type: Registered Nurse Type: Progress Notes Filed: 04/18/2018 5:14 PM Note Text: PRIMARY CARE COORDINATION FOLLOW-UP NOTE Provider Action/FYI TC to patient, left messages on 04/16 and 04/18 regarding hospital discharge on 04/13 REVIEWED WC ON 04/18 PT READMITTED TO HOSPITAL FOR CHEST PAIN AT REST Patient identified by name and date of . YES Himanshu Aquino RN April 18, 2018 [id number] Observed: 04/16/2018 Status: COMPLETED Source: [place] 12:00 AM [facility] REPOSITORY Patient Outreach (FAMPWS) FLAVIA CASE ([id number]) 1950 F Date Time Provider Department 04/16/18 HIMANSHU AQUINO) JERAD During your visit today, we recorded the following information about you: Himanshu Aquino RN 04/18/2018 5:14 PM Signed PRIMARY CARE COORDINATION FOLLOW-UP NOTE Provider Action/FYI TC to patient, left messages on 04/16 and 04/18 regarding hospital discharge on 04/13 REVIEWED WC ON 04/18 PT READMITTED TO HOSPITAL FOR CHEST PAIN AT REST Patient identified by name and date of . YES Himanshu Aquino RN April 18, 2018 Keri Gamez MD 04/19/2018 7:57 AM Signed Reviewed. Thanks. Allergies As of Date: 04/16/2018 Noted Allergy Reaction ADVAIR DISKUS (FLUTICASONE-SALMET*05/16/2011 14 - Other: See Comments Comments: CHEST PAIN ASA (SALICYLATES) 05/10/2005 16 - Unknown Comments: patient taking coumadin - on low dose ASA for valve dysfunction CEPHALEXIN 02/21/2008 Comments: Stomach pains-pt. ended up in hospital EKG PADS [Other] 05/10/2005 Comments: adhesive LISINOPRIL 07/03/2014 3 - Cough NEXIUM (ESOMEPRAZOLE MAGNESIUM) 01/26/2016 14 - Other: See Comments Comments: Ineffective OMEPRAZOLE 01/26/2016 14 - Other: See Comments Comments: Ineffective TUDORZA PRESSAIR (ACLIDINIUM BROM*01/26/2016 8 - GI Upset VENTOLIN (ALBUTEROL SULFATE) 10/24/2017 14 - Other: See Comments Comments: Severe shaking, palpitations VENTOLIN (ALBUTEROL) 01/26/2016 14 - Other: See Comments Comments: Ventolin MDI does not work, Pro Air works best Date Reviewed: 01/24/2018 Reviewed by: Mary Weber - Fully Assessed Reason for Visit: Transition Of Care [4074] Prescriptions as of 04/16/2018 Sig: COMPOUNDED PRESCRIPTION HOME BP CUFF, DX: HTN LABILE * ALBUTEROL SULFATE CONCENTRATE* Inhale 0.5 mL as instructed o* ALBUTEROL SULFATE HFA 90 MCG/* Inhale 2 Puffs as instructed * AMLODIPINE 5 MG TABLET Take 2 tablets by mouth once * ASPIRIN 81 MG TABLET,DELAYED * Take 1 tablet by mouth once d* ATENOLOL 100 MG TABLET Take 0.5 tablets by mouth onc* ATORVASTATIN 20 MG TABLET take 1 tablet by mouth once d* COMPOUNDED PRESCRIPTION NEBULIZER SUPPLIES, MEDICATIO* COMPOUNDED PRESCRIPTION Home scale for daily weight c* DICLOFENAC 1 % TOPICAL GEL Apply 2 g to affected area tw* FERROUS SULFATE 325 MG (65 MG* take 1 tablet by mouth twice * FREESTYLE LANCETS 28 GAUGE TEST twice a day FREESTYLE LITE STRIPS TEST twice a day FUROSEMIDE 20 MG TABLET take 1 tablet by mouth once d* GLIPIZIDE ER 10 MG TABLET, EX* Take 1 tablet by mouth once d* ISOSORBIDE MONONITRATE ER 30 * Take 3 tablets by mouth once * ISOSORBIDE MONONITRATE ER 30 * Take 4 tablets by mouth once * LANSOPRAZOLE 30 MG CAPSULE,DE* take 1 capsule by mouth every* LEG BRACE 1 Each continuous. LEG BRACE 1 Each continuous. DX: S89.92* LORATADINE 10 MG TABLET take 1 tablet by mouth once d* LOSARTAN 100 MG TABLET take 1 tablet by mouth once d* MECLIZINE 12.5 MG TABLET Take 1 tablet by mouth three * METFORMIN ER 500 MG TABLET,EX* take 2 tablets by mouth twice* MUPIROCIN 2 % TOPICAL OINTMENT Apply 1 application to affect* NITROGLYCERIN 0.4 MG SUBLINGU* Dissolve 1 tablet under the t* NYSTATIN 100,000 UNIT/GRAM TO* Apply 1 application to affect* OXYBUTYNIN CHLORIDE ER 10 MG * take 1 tablet by mouth once d* POLYETHYLENE GLYCOL 3350 17 G* Take 17 g by mouth once daily* SERTRALINE 100 MG TABLET take 1 tablet by mouth once d* TIZANIDINE 4 MG TABLET take 1 tablet by mouth at bed* TRAZODONE 50 MG TABLET Take 1 tablet by mouth daily * WARFARIN 1 MG TABLET Take 1 tablet by mouth once d* WARFARIN 6 MG TABLET Take 7 mg Daily WARFARIN 6 MG TABLET 3 mg Tues/th and 6 mg all * Problem List As Of Date 04/16/2018 Noted Resolved AORTOCORONARY BYPASS STATUS [Z95.1] More... OVERWEIGHT [E66.9] 05/08/2015 ASHD (arteriosclerotic heart disease) [I25.10] INVALID FOR* More... DIABETES MELLITUS TYPE II-UNCOMPL [E11.9] INVALID FOR*02/12/2014 More... HYPERLIPIDEMIA NEC/NOS [E78.5] INVALID FOR*07/24/2015 More... Hematuria [599.7] INVALID FOR*07/24/2015 More... History of mechanical aortic valve replacement *INVALID FOR* More... Abdominal pain, unspecified site [R10.9] INVALID FOR*05/08/2015 Acute gastritis without mention of hemorrhage [*INVALID FOR*01/26/2016 Esophageal reflux [K21.9] INVALID FOR* More... Headache(784.0) [R51] INVALID FOR*01/26/2016 Bronchitis Recurrent [J40] INVALID FOR*03/21/2017 Hallux valgus (acquired) [M20.10] INVALID FOR*07/24/2015 Pain in limb [M79.609] INVALID FOR*01/26/2016 Goiter [E04.9] INVALID FOR* S/P AVR [Z95.2] INVALID FOR*01/26/2016 Multinodular thyroid [E04.2] INVALID FOR* Emphysema of lung (HCC) [J43.9] More... Hyperlipemia [E78.5] INVALID FOR* DM type 2 (diabetes mellitus, type 2) (HCC) [E1*INVALID FOR*05/08/2015 Hematuria [R31.9] INVALID FOR*10/23/2015 Smoking [F17.200] INVALID FOR*10/23/2015 Chronic anticoagulation [Z79.01] INVALID FOR* OAB (overactive bladder) [N32.81] INVALID FOR* More... Frequency of urination [R35.0] INVALID FOR*01/26/2016 Hypertension goal BP (blood pressure) < 140/90 *INVALID FOR* More... Diabetes mellitus type 2, uncontrolled, without*INVALID FOR*03/21/2017 More... Nicole rash of groin [B37.89] INVALID FOR* More... Stress at home [F43.9] INVALID FOR* Insomnia [G47.00] INVALID FOR* Financial difficulties [Z59.8] INVALID FOR* Obesity, Class III, BMI >= 40 (morbid obesity) *INVALID FOR* Hemoptysis [R04.2] INVALID FOR* More... 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 Eczema [L30.9] Diabetes mellitus (HCC) [E11.9] COPD (chronic obstructive pulmonary disease) (H* Diastolic CHF (HCC) [I50.30] Encounter Status:Closed by HIMANSHU AQUINO on 04/19/18 DISCHARGE SUMMARY Observed: 04/13/2018 Status: F Source: [place] 4:00 PM [facility] REPOSITORY [facility] Medical Records Department [address] [place] [address] Discharge Summary 04/13/18 1541 MR#: [id number] Acct: [id number] Name: FLAVIA CASE Rep #: [id number] : 1950 68 From: Parvin Mcconnell DO PCP: Collin Gamez MD Status: ADM IN Y Location: [place] [address] Discharge Date and Diagnosis - Problem List Patient Problems: Active and Suspected Problems Anxiety about health (Acute) Subtherapeutic international normalized ratio (INR) (Acute) Sinus bradycardia (Acute) Paroxysmal atrial fibrillation with RVR (Acute) Date of Admission: 04/07/18 Date of Discharge: 04/13/18 - Primary Discharge Diagnosis Active and Suspected Problems Paroxysmal atrial fibrillation with RVR (Acute) NSTEMI - type II Anxiety about health (Acute) Subtherapeutic international normalized ratio (INR) (Acute) Sinus bradycardia (Acute) with pauses due to Cardizem intolerance - Secondary Discharge Diagnosis Chronic Problems Moderate aortic stenosis (Chronic) Morbid obesity (Chronic) H/O prosthetic aortic valve replacement (Chronic) 1994 CAD (coronary artery disease) (Chronic) Hx of CABG (Chronic) Type 2 diabetes mellitus (Chronic) Hypertension (Chronic) Chronic obstructive lung disease (Chronic) Hospital Course and Treatment Imaging Results: Clinical Impression(s) from Imaging Studies Chest X-Ray 04/07/18 05:47 IMPRESSION: 1. No acute disease or significant change. Xi 2. Postsurgical changes, as above. at 0618 Reported and signed by: Jeremi Baig MD Electronically Signed: Jeremi Baig, at 6:16 EST Tel , Service support , Laboratory Results - last 24 hr WBC 5.5 RBC 4.48 Hgb 11.8 L Hct 37.1 MCV 82.8 MCH 26.3 L MCHC 31.8 L WBC RBC Hgb Hct MCV MCH MCHC RDW RDW Differential Plt Count MPV Immature Gran % (Auto) Neut % (Auto) Dr. Isaacs [facility] cardiology Operations: None Procedures: None Summary of Care Provided: The patient is a 68 year old F with a past medical history of coronary artery disease, CABG, prosthetic aortic valve replacement in 1994, moderate aortic stenosis currently, hypertension, morbid obesity, diabetes mellitus type 2, COPD and morbid obesity who presented to the emergency department at [facility] on 04/07/2018 complaining of sudden onset of racing heart/palpitations and substernal chest pain. The palpitations and racing heart came first and then she got chest pain. EKG in the emergency room revealed atrial fibrillation with rapid ventricular response. She was treated with 5 mg of metoprolol and her heart rate improved. She was admitted to a monitored bed on PCU. The initial troponin was less than 0.015 but the second troponin was 0.041 and the third troponin was 0.095. The chest pain resolved with control of the heart rate. She was started on Cardizem CD 120 mg and unfortunately had symptomatic bradycardia with pauses. Cardizem was discontinued and she was started on amiodarone 200 mg p.o. daily. She was also started on a potassium supplement to keep her K at 4 or greater and a magnesium supplement to keep her magnesium at at least 2. She had no recurrence of atrial fibrillation for the remainder of her hospital stay. She was quite anxious about having to be readmitted for AF with RVR after just recently being in the hospital for the same thing. She was started on Buspar and her anxiety is much better. Her HGBA1C is 8.3 and the blood sugars were mildly elevated in the hospital. She was started on Tradjenta 5 mg daily and the blood sugars were well controlled at LA. She was discharged on 04/13/2018 with prescriptions for Amiodarone 200 mg p.o. daily, BuSpar 5 mg p.o. 3 times daily, Tradjenta 5 mg daily, potassium chloride 20 mEq daily and magnesium oxide 400 mg daily. She will follow-up with Dr. Gamez in the office in 7-10 days and should have a BMP and magnesium drawn at that time. She will call Dr. Corado's office to schedule an appt for follow up. INR on the day of DC was 2.7 and she is going to resume her regular Warfarin dosage. It was supratherapeutic initially and Coumadin was held and then The INR dropped to 2.1 and heparin was initiated until the INR dayanara to >2.5. PHYSICAL EXAM: GENERAL: alert, oriented X 3, Cooperative, NAD ORAL: moist mucosa, no mucosal lesions NECK: No JVD, supple, trachea midline LUNGS: CTA, symmetric chest expansion HEART: RRR, Normal S1 and S2, no rub, no gallop ABDOMEN: soft, NT, ND, BS present, no guarding with palpation, obese EXTREMITIES: no edema, no cyanosis, no calf tenderness SKIN: No rashes, no breakdown NEUROLOGIC: no focal neurologic deficits PSYCH: appropriate, normal affect, pleasant This note was generated with [employer] dictation software. It may contain incorrect words, spelling, and punctuation that were not noted in checking the note before signing. Patient Problems: Active and Suspected Problems Anxiety about health (Acute) Subtherapeutic international normalized ratio (INR) (Acute) Sinus bradycardia (Acute) Paroxysmal atrial fibrillation with RVR (Acute) - Physical Exam Vital Signs Temp Pulse Resp BP Pulse Ox 97.2 F L 69 16 134/54 H 96 04/13/18 15:32 04/13/18 15:32 04/13/18 15:32 04/13/18 15:32 04/13/18 15:32 Oxygen Flow Rate (L/min) 2 Oxygen Delivery Method Room Air Weight: 233 lb 14.567 oz Body Mass Index (BMI) 41.4 Intake and Output for Last 24 Hours Intake Total 1643.8 / 1643.8 1167 / 1167 1198 / 1198 Balance 1643.8 / 1643.8 1167 / 1167 1198 / 1198 Laboratory Tests Past 24 Hrs WBC 5.5 RBC 4.48 Hgb 11.8 L Hct 37.1 POC Glucose POC Glucose 145 H 153 H 154 H Discharge Activity: Return to Normal Activity Call your doctor if you observe: Fever of 101 or Higher, Shortness of breath, Dizziness, Fainting spells, Swelling in the ankles, Chest pain Home Medications: Medications to take at Discharge Aspirin [Aspirin EC] 81 mg PO DAILY 10/23/16 Furosemide [Lasix] 20 mg PO DAILY 10/23/16 Lansoprazole [Prevacid] 30 mg PO BID 10/23/16 Loratadine 10 mg PO DAILY 10/23/16 Losartan Potassium [Cozaar] 100 mg PO QHS 10/23/16 Metformin(XR) [Glucophage Xr] 1,000 mg PO BID 10/23/16 Polyethylene Glycol 3350 17 gm PO DAILY PRN 10/23/16 Warfarin [Coumadin] 6 mg PO SUMOWEFRSA 10/23/16 glipiZIDE [Glucotrol] 10 mg PO DAILY@0730 10/23/16 Albuterol Sulfate [Ventolin Hfa] 2 puff INHALATION Q4H PRN 03/26/18 Atorvastatin Calcium [Lipitor] 20 mg PO QHS 03/26/18 Ferrous Sulfate 325 mg PO BIDCM 03/26/18 Meclizine HCl [Antivert] 25 mg PO TID PRN PRN 03/26/18 Mupirocin [Bactroban] 1 applicatio NASAL TID PRN 03/26/18 Nitroglycerin [Nitrostat] 0.4 mg SUBLINGUAL Q5M PRN 03/26/18 Nystatin 1 applicatio TP BID PRN 03/26/18 Oxybutynin Chloride [Ditropan Xl] 10 mg PO DAILY 03/26/18 Tizanidine HCl 4 mg PO QHS PRN 03/26/18 Warfarin Sodium 3 mg PO TUTH 03/26/18 Amlodipine [Norvasc] 10 mg PO DAILY #30 tablet 03/28/18 Atenolol [Tenormin (beta yi)] 50 mg PO DAILY #30 tablet 03/28/18 Isosorbide Mononitrate [Imdur] 120 mg PO DAILY #30 tablet 03/28/18 Amiodarone HCl [Cordarone] 200 mg PO DAILY #30 tablet 04/13/18 Linagliptin [Tradjenta] 5 mg PO DAILY #30 tablet 04/13/18 Magnesium Oxide [Mag-Ox 400] 400 mg PO DAILYCM #30 tablet 04/13/18 Potassium Chloride [K-Dur] 20 meq PO DAILYCM #30 tablet 04/13/18 busPIRone [Buspar] 5 mg PO TID #90 tablet 04/13/18 Following Prescrptions Were Given to Patient: Amiodarone HCl [Cordarone] 200 mg PO DAILY #30 tablet Linagliptin [Tradjenta] 5 mg PO DAILY #30 tablet Magnesium Oxide [Mag-Ox 400] 400 mg PO DAILYCM #30 tablet Potassium Chloride [K-Dur] 20 meq PO DAILYCM #30 tablet busPIRone [Buspar] 5 mg PO TID #90 tablet Primary Care Physician: Collin Gamez MD [Primary Care Provider] - Please follow up with your Primary Care Physician in: 7-10 days Please Follow Up With: Wade Corado MD When: call the office for an appt Disposition: Home Minutes spent on discharge:: 38 Patient Condition:: Good Medical Necessity - Tobacco Use Smoking Status: Former smoker Tobacco Use: Non-smoker Meaningful Use Info Meaningful Use Diagnoses (Choose all that apply): AMI - AMI Aspirin given w/in 24hrs of arrival?: Yes ASA at discharge?: Yes Statins at discharge?: Yes Jeff/ARB at discharge?: Yes Beta Yi at discharge?: Yes Done w/ Acute [place] measure.: Yes Code Visit Inpatient E AND M: [id number] Disch Hosp 04/13/18 1600 <Electronically signed by Parvin Mcconnell DO> Date Parvin Mcconnell DO Cosigner Signature (if applicable): Date CC: Sandra Mcconnell; Collin Gamez MD; Ferny Marie MD; Wade Corado MD Signed DISCHARGE INSTRUCTION Observed: 04/13/2018 Status: F Source: [place] 3:40 PM [facility] REPOSITORY [facility] Medical Records Department [address] [place] [address] Instructions for Home/Discharge Instructions 04/13/18 1529 MR#: [id number] Acct: [id number] Name: FLAVIA CASE Rep #: [id number] : 1950 68 From: Parvin Mcconnell DO PCP: Collin Gamez MD Status: ADM IN - Discharge Diagnoses Current Active Problems: Current Active and Chronic Problems Morbid obesity (Chronic) Unstable angina (Acute) Paroxysmal atrial fibrillation with RVR (Acute) H/O prosthetic aortic valve replacement (Chronic) 1994 You will use the following diet at home:: Calorie/Carbohydrate Controlled (specify 1200, 1400, etc), Cardiac Your food should be the consistency of: Regular Your liquids should be the consistency of: Regular/Thin Discharge Activity: Return to Normal Activity Call your doctor if you observe: Fever of 101 or Higher, Shortness of breath, Dizziness, Fainting spells, Swelling in the ankles, Chest pain Additional Instructions: 1. I have given you a prescription for a medication called Sharon. It is for anxiety and you have been taking it in the hospital with good results. You will take it three times a day with meals. 2. You are being discharged on the antiarrhythmic Amiodarone and you will take this medication once a day. 3. To prevent atrial fibrillation it is important to keep the potassium around 4 and the magnesium around 2. I have given you prescriptions for both potassium and magnesium. You can follow up with Dr. Gamez in 7-10 days to have your lab rechecked. Allergies/Adverse Reactions: Allergies adhesive Allergy (Verified 03/26/18 15:02) Rash fluticasone propionate [From Advair Diskus] Allergy (Verified 03/26/18 17:00) chest pain gabapentin [From Neurontin] Allergy (Verified 03/26/18 17:00) Swelling of feet and legs salmeterol xinafoate [From Advair Diskus] Allergy (Verified 03/26/18 17:00) chest pains albuterol [From Ventolin HFA] Adverse Reaction (Verified 03/26/18 17:00) jittery TOO JITTERY cephalexin monohydrate [From Keflex] Adverse Reaction (Verified 03/26/18 17:00) abdominal cramping pregabalin Adverse Reaction (Verified 03/26/18 17:00) makes me slow to respond Medications to take at Discharge Aspirin [Aspirin EC] 81 mg PO DAILY 10/23/16 Furosemide [Lasix] 20 mg PO DAILY 10/23/16 Lansoprazole [Prevacid] 30 mg PO BID 10/23/16 Loratadine 10 mg PO DAILY 10/23/16 Losartan Potassium [Cozaar] 100 mg PO QHS 10/23/16 Metformin(XR) [Glucophage Xr] 1,000 mg PO BID 10/23/16 Polyethylene Glycol 3350 17 gm PO DAILY PRN 10/23/16 Warfarin [Coumadin] 6 mg PO SUMOWEFRSA 10/23/16 glipiZIDE [Glucotrol] 10 mg PO DAILY@0730 10/23/16 Albuterol Sulfate [Ventolin Hfa] 2 puff INHALATION Q4H PRN 03/26/18 Atorvastatin Calcium [Lipitor] 20 mg PO QHS 03/26/18 Ferrous Sulfate 325 mg PO BIDCM 03/26/18 Meclizine HCl [Antivert] 25 mg PO TID PRN PRN 03/26/18 Mupirocin [Bactroban] 1 applicatio NASAL TID PRN 03/26/18 Nitroglycerin [Nitrostat] 0.4 mg SUBLINGUAL Q5M PRN 03/26/18 Nystatin 1 applicatio TP BID PRN 03/26/18 Oxybutynin Chloride [Ditropan Xl] 10 mg PO DAILY 03/26/18 Tizanidine HCl 4 mg PO QHS PRN 03/26/18 Warfarin Sodium 3 mg PO TUTH 03/26/18 Amlodipine [Norvasc] 10 mg PO DAILY #30 tablet 03/28/18 Atenolol [Tenormin (beta yi)] 50 mg PO DAILY #30 tablet 03/28/18 Isosorbide Mononitrate [Imdur] 120 mg PO DAILY #30 tablet 03/28/18 Amiodarone HCl [Cordarone] 200 mg PO DAILY #30 tablet 04/13/18 Linagliptin [Tradjenta] 5 mg PO DAILY #30 tablet 04/13/18 Magnesium Oxide [Mag-Ox 400] 400 mg PO DAILYCM #30 tablet 04/13/18 Potassium Chloride [K-Dur] 20 meq PO DAILYCM #30 tablet 04/13/18 busPIRone [Buspar] 5 mg PO TID #90 tablet 04/13/18 The following prescriptions were given: Amiodarone HCl [Cordarone] 200 mg PO DAILY #30 tablet Linagliptin [Tradjenta] 5 mg PO DAILY #30 tablet Magnesium Oxide [Mag-Ox 400] 400 mg PO DAILYCM #30 tablet Potassium Chloride [K-Dur] 20 meq PO DAILYCM #30 tablet busPIRone [Buspar] 5 mg PO TID #90 tablet Primary Care Physician: Clolin Gamez MD [Primary Care Provider] - Please follow up with your Primary Care Physician in: 7-10 days Test Results: Test results from this visit will be discussed in further detail at your follow-up appointment, if applicable. Please Follow Up With: Wade Corado MD When: call the office for an appt Proposed Discharge Date: 04/13/18 04/13/18 1540 <Electronically signed by Parvin Mcconnell DO> Date Parvin Mcconnell DO CC: Collin Gamez MD; Ferny Marie MD; Wade Corado MD Signed 12 LEAD ELECTROCARDIOGRAM Observed: 04/13/2018 Status: F Source: [place] 2:16 PM [facility] REPOSITORY [facility] Cardiovascular Services [facility] [place] [address] [place] [address] 12 Lead EKG 04/09/18 1040 MR#: [id number] Acct: [id number] Name: FLAVIA CASE Rep #: [id number] : 1950 68 From: Ferny Marie MD Attending Dr: Sandra Mcconnell Status: ADM IN Ordering Dr: Parvin Mcconnell DO Date: 04/09/18 Location: [facility] Sex: F C Admitted: 04/10/18 Test Reason : CHEST PAIN Blood Pressure : / mmHG Vent. Rate : 068 BPM Atrial Rate : 068 BPM P-R Int : 188 ms QRS Dur : 116 ms QT Int : 446 ms P-R-T Axes : 045 070 000 degrees QTc Int : 474 ms Normal sinus rhythm Incomplete right bundle branch block Nonspecific ST abnormality Abnormal ECG When compared with ECG of 08-APR-2018 09:37, MANUAL COMPARISON REQUIRED, DATA IS UNCONFIRMED Confirmed by FERNY MARIE MD ([id number]), graphic editor SOUMYA BARTH ([id number]) on 04/13/2018 2:15:47 PM Referred By: ELLIOTT Confirmed By:FERNY MARIE MD 04/13/18 1415 Date Ferny Marie MD CC: Sandra Mcconnell; Collin Gamez MD Signed PARTIAL THROMBOPLAST Collected: 04/13/2018 Status: F Source: [place] TIME 1:31 PM [facility] REPOSITORY TYPE CODE TESTS RESULT OUT OF REFERENCE UNITS RANGE LAB L300.4310 24.1-36.2 Seconds High PTT 75.0 Performed By: #### L300.4310 #### [facility] [address] [place], [place], [address] BEDSIDE GLUCOSE Collected: 04/13/2018 Status: F Source: [place] 6:34 AM [facility] REPOSITORY TYPE CODE TESTS RESULT OUT OF REFERENCE UNITS RANGE LAB L501.080 70-110 mg/dL High BEDSIDE GLU 145 Result Comment: MANAGEMENT OF PATIENT CARE PER NURSING PROTOCOL Performed By: #### L501.080 #### [facility] Point of Care [address] [place], [place] [address] CBC W/DIFF, AUTOMATED Collected: 04/13/2018 Status: F Source: [place] 6:25 AM [facility] REPOSITORY TYPE CODE TESTS RESULT OUT OF RANGE REFERENCE UNITS LAB L100.1000 4.4-11.0 K/mm3 Normal WBC 5.5 LAB L100.1200 4.2-5.4 M/mm3 Normal RBC 4.48 LAB L100.1300 12.0-15.0 g/dl Low HGB 11.8 LAB L100.1400 37-47 % Normal HCT 37.1 LAB L100.1500 81-99 fL Normal MCV 82.8 LAB L100.1600 27.0-32.0 pg Low MCH 26.3 LAB L100.1700 32-36 g/gl Low MCHC 31.8 LAB L100.1810 11.6-14.6 % High RDW CV 16.3 LAB L100.1820 35.1-43.9 fl High RDW SD 49.3 LAB L100.1900 150-450 K/mm3 Normal PLT 161 LAB L100.2000 6.2-12.0 fl Normal MPV 10.6 LAB L100.2100 47-70 % Normal NEUT% 56.8 LAB L100.2200 19-41 % Normal LY% 29.9 LAB L100.2300 0-10 % Normal MONO% 8.4 LAB L100.2400 0-5 % Normal EO% 3.8 LAB L100.2500 0-1 % Normal BASO% 0.9 LAB L100.2550 0.0-0.9 % Normal IM GRAN % 0.200 Result Comment: IG% - Immature Granulocytes (promyelocytes, myelocytes and metamyelocytes) > 1% indicates that a LEFT SHIFT is Present. LAB L100.2620 2.0-7.7 X10 3/uL Normal Absolute Neut 3.1 LAB L100.2720 0.83-4.51 X10 3/ul Normal Absolute Lymph 1.64 Performed By: #### L100.0100 #### [facility] [address] [place], [place], [id number] PROTHROMBIN TIME W/INR Collected: 04/13/2018 Status: F Source: [place] 6:25 AM [facility] REPOSITORY TYPE CODE TESTS RESULT OUT OF RANGE REFERENCE UNITS LAB L300.4150 11.7-14.9 SECONDS High PROTIME 28.9 LAB L300.4200 Normal INR 2.7 Performed By: #### L300.3900, L300.4310 #### [facility] [address] [place], [place], [id number] PARTIAL THROMBOPLAST Collected: 04/13/2018 Status: F Source: [place] TIME 6:25 AM [facility] REPOSITORY TYPE CODE TESTS RESULT OUT OF REFERENCE UNITS RANGE LAB L300.4310 24.1-36.2 Seconds High alert PTT 90.4 Result Comment: CRITICAL VALUE VERIFIED. CALLED TO GEOVANY KAPADIA 04/13/18 0726 [place]. RESULTS READ BACK BY SAME. Performed By: #### L300.3900, L300.4310 #### [facility] [address] [place], [place], [address] BEDSIDE GLUCOSE Collected: 04/12/2018 Status: F Source: [place] 11:01 PM [facility] REPOSITORY TYPE CODE TESTS RESULT OUT OF REFERENCE UNITS RANGE LAB L501.080 70-110 mg/dL High BEDSIDE GLU 153 Result Comment: MANAGEMENT OF PATIENT CARE PER NURSING PROTOCOL Performed By: #### L501.080 #### [facility] Point of Care [address] [place] [address] PARTIAL THROMBOPLAST Collected: 04/12/2018 Status: F Source: [place] TIME 10:06 PM [facility] REPOSITORY TYPE CODE TESTS RESULT OUT OF REFERENCE UNITS RANGE LAB L300.4310 24.1-36.2 Seconds High PTT 77.4 Performed By: #### L300.4310 #### [facility] [address] [place], [address] BEDSIDE GLUCOSE Collected: 04/12/2018 Status: F Source: [place] 4:25 PM [facility] REPOSITORY TYPE CODE TESTS RESULT OUT OF REFERENCE UNITS RANGE LAB L501.080 70-110 mg/dL High BEDSIDE GLU 154 Result Comment: MANAGEMENT OF PATIENT CARE PER NURSING PROTOCOL Performed By: #### L501.080 #### [facility] Point of Care [address] [place] [address] PARTIAL THROMBOPLAST Collected: 04/12/2018 Status: F Source: [place] TIME 3:48 PM [facility] REPOSITORY TYPE CODE TESTS RESULT OUT OF REFERENCE UNITS RANGE LAB L300.4310 24.1-36.2 Seconds High PTT 70.8 Performed By: #### L300.4310 #### [facility] [address] [place], [address] BEDSIDE GLUCOSE Collected: 04/12/2018 Status: F Source: [place] 11:36 AM [facility] REPOSITORY TYPE CODE TESTS RESULT OUT OF REFERENCE UNITS RANGE LAB L501.080 70-110 mg/dL High BEDSIDE GLU 177 Result Comment: MANAGEMENT OF PATIENT CARE PER NURSING PROTOCOL Performed By: #### L501.080 #### [facility] Point of Care [address] [place] [address] PARTIAL THROMBOPLAST Collected: 04/12/2018 Status: F Source: [place] TIME 10:02 AM [facility] REPOSITORY TYPE CODE TESTS RESULT OUT OF REFERENCE UNITS RANGE LAB L300.4310 24.1-36.2 Seconds High PTT 82.5 Performed By: #### L300.4310 #### [facility] [address] [place], [address] BEDSIDE GLUCOSE Collected: 04/12/2018 Status: F Source: [place] 6:55 AM [facility] REPOSITORY TYPE CODE TESTS RESULT OUT OF REFERENCE UNITS RANGE LAB L501.080 70-110 mg/dL High BEDSIDE GLU 135 Result Comment: MANAGEMENT OF PATIENT CARE PER NURSING PROTOCOL Performed By: #### L501.080 #### [facility] Point of Care [address] [place] [address] CBC W/DIFF, AUTOMATED Collected: 04/12/2018 Status: F Source: [place] 3:20 AM [facility] REPOSITORY TYPE CODE TESTS RESULT OUT OF RANGE REFERENCE UNITS LAB L100.1000 4.4-11.0 K/mm3 Normal WBC 6.3 LAB L100.1200 4.2-5.4 M/mm3 Normal RBC 4.40 LAB L100.1300 12.0-15.0 g/dl Normal HGB 12.2 LAB L100.1400 37-47 % Low HCT 36.6 LAB L100.1500 81-99 fL Normal MCV 83.2 LAB L100.1600 27.0-32.0 pg Normal MCH 27.7 LAB L100.1700 32-36 g/gl Normal MCHC 33.3 LAB L100.1810 11.6-14.6 % High RDW CV 16.3 LAB L100.1820 35.1-43.9 fl High RDW SD 48.5 LAB L100.1900 150-450 K/mm3 Normal PLT 161 LAB L100.2000 6.2-12.0 fl Normal MPV 11.0 LAB L100.2100 47-70 % Normal NEUT% 59.9 LAB L100.2200 19-41 % Normal LY% 27.6 LAB L100.2300 0-10 % Normal MONO% 6.7 LAB L100.2400 0-5 % Normal EO% 4.3 LAB L100.2500 0-1 % Normal BASO% 1.0 LAB L100.2550 0.0-0.9 % Normal IM GRAN % 0.500 Result Comment: IG% - Immature Granulocytes (promyelocytes, myelocytes and metamyelocytes) > 1% indicates that a LEFT SHIFT is Present. LAB L100.2620 2.0-7.7 X10 3/uL Normal Absolute Neut 3.8 LAB L100.2720 0.83-4.51 X10 3/ul Normal Absolute Lymph 1.73 Performed By: #### L100.0100 #### [facility] [address] [place], [address] PROTHROMBIN TIME W/INR Collected: 04/12/2018 Status: F Source: [place] 3:20 AM [facility] REPOSITORY TYPE CODE TESTS RESULT OUT OF RANGE REFERENCE UNITS LAB L300.4150 11.7-14.9 SECONDS High PROTIME 23.8 LAB L300.4200 Normal INR 2.1 Performed By: #### L300.3900 #### [facility] [address] [place], [address] PARTIAL THROMBOPLAST Collected: 04/12/2018 Status: F Source: [place] TIME 3:20 AM [facility] REPOSITORY TYPE CODE TESTS RESULT OUT OF REFERENCE UNITS RANGE LAB L300.4310 24.1-36.2 Seconds High alert PTT 90.1 Result Comment: CRITICAL VALUE VERIFIED. CALLED TO DANDY HAUSER 04/12/18 0352 Marlee Johnson. RESULTS READ BACK BY SAME . Performed By: #### L300.4310 #### [facility] [address] [address] [place], [place], [address] BEDSIDE GLUCOSE Collected: 04/11/2018 Status: F Source: [place] 9:19 PM [facility] REPOSITORY TYPE CODE TESTS RESULT OUT OF REFERENCE UNITS RANGE LAB L501.080 70-110 mg/dL High BEDSIDE GLU 120 Result Comment: MANAGEMENT OF PATIENT CARE PER NURSING PROTOCOL Performed By: #### L501.080 #### [facility] Point of Care [address] [place], [place] [address] PARTIAL THROMBOPLAST Collected: 04/11/2018 Status: F Source: [place] TIME 8:22 PM [facility] REPOSITORY TYPE CODE TESTS RESULT OUT OF REFERENCE UNITS RANGE LAB L300.4310 24.1-36.2 Seconds High PTT 83.5 Performed By: #### L300.4310 #### [facility] [address] [place], [address] BEDSIDE GLUCOSE Collected: 04/11/2018 Status: F Source: [place] 4:29 PM [facility] REPOSITORY TYPE CODE TESTS RESULT OUT OF REFERENCE UNITS RANGE LAB L501.080 70-110 mg/dL High BEDSIDE GLU 151 Result Comment: MANAGEMENT OF PATIENT CARE PER NURSING PROTOCOL Performed By: #### L501.080 #### [facility] Point of Care [address] [place] [address] 12 LEAD ELECTROCARDIOGRAM Observed: 04/11/2018 Status: F Source: [place] 4:01 PM [facility] REPOSITORY [facility] Cardiovascular Services [address] [place] [address] 12 Lead EKG 04/07/18 1111 MR#: [id number] Acct: [id number] Name: FLAVIA CASE Rep #: [id number] : 1950 68 From: Ferny Marie MD Attending Dr: Sandra Mcconnell Status: ADM IN Ordering Dr: Parvin Mcconnell DO Date: 04/07/18 Location: [facility] Sex: F C Admitted: 04/10/18 Test Reason : Blood Pressure : / mmHG Vent. Rate : 069 BPM Atrial Rate : 276 BPM P-R Int : 000 ms QRS Dur : 110 ms QT Int : 430 ms P-R-T Axes : 085 084 087 degrees QTc Int : 460 ms Atrial flutter with 4:1 A-V conduction Nonspecific ST abnormality Abnormal ECG When compared with ECG of 07-APR-2018 05:23, MANUAL COMPARISON REQUIRED, DATA IS UNCONFIRMED Confirmed by FERNY MARIE MD ([id number]), graphic editor SOUMYA BARTH ([id number]) on 04/11/2018 4:00:50 PM Referred By: ELLIOTT Confirmed By:FERNY MARIE MD 04/11/18 1600 Date Ferny Marie MD CC: Sandra Mcconnell; Collin Gamez MD Signed 12 LEAD ELECTROCARDIOGRAM Observed: 04/11/2018 Status: F Source: [place] 4:01 PM [facility] REPOSITORY [facility] Cardiovascular Services [address] [place] [address] 12 Lead EKG 04/07/18 1414 MR#: [id number] Acct: [id number] Name: FLAVIA CASE Rep #: [id number] : 1950 68 From: Ferny Marie MD Attending Dr: Sandra Mcconnell Status: ADM IN Ordering Dr: Parvin Mcconnell DO Date: 04/07/18 Location: [facility] Sex: F C Admitted: 04/10/18 Test Reason : RYTHM CHANGE Blood Pressure : / mmHG Vent. Rate : 077 BPM Atrial Rate : 077 BPM P-R Int : 178 ms QRS Dur : 112 ms QT Int : 424 ms P-R-T Axes : 037 078 035 degrees QTc Int : 479 ms Normal sinus rhythm Nonspecific ST abnormality Abnormal ECG When compared with ECG of 07-APR-2018 11:11, MANUAL COMPARISON REQUIRED, DATA IS UNCONFIRMED Confirmed by FERNY MARIE MD ([id number]), graphic editor SOUMYA BARTH ([id number]) on 04/11/2018 4:01:31 PM Referred By: ELLIOTT Confirmed By:FERNY MARIE MD 04/11/18 1601 Date Ferny Marie MD CC: Sandra Mcconnell; Collin Gamez MD Signed 12 LEAD ELECTROCARDIOGRAM Observed: 04/11/2018 Status: F Source: [place] 3:58 PM [facility] REPOSITORY [facility] Cardiovascular Services [address] [place] [address] 12 Lead EKG 04/08/18 0937 MR#: [id number] Acct: [id number] Name: FLAVIA CASE Rep #: [id number] : 1950 68 From: Ferny Marie MD Attending Dr: Sandra Mcconnell Status: ADM IN Ordering Dr: Parvin Mcconnell DO Date: 04/08/18 Location: [facility] Sex: F C Admitted: 04/10/18 Test Reason : Blood Pressure : / mmHG Vent. Rate : 062 BPM Atrial Rate : 062 BPM P-R Int : 194 ms QRS Dur : 112 ms QT Int : 454 ms P-R-T Axes : 046 082 039 degrees QTc Int : 460 ms Normal sinus rhythm Normal ECG When compared with ECG of 07-APR-2018 14:14, MANUAL COMPARISON REQUIRED, DATA IS UNCONFIRMED Confirmed by FERNY MARIE MD ([id number]), graphic editor SOUMYA BARTH ([id number]) on 04/11/2018 3:58:03 PM Referred By: ELLIOTT Confirmed By:FERNY MARIE MD 04/11/18 1558 Date Ferny Marie MD CC: Sandra Mcconnell; Collin Gamez MD Signed 12 LEAD ELECTROCARDIOGRAM Observed: 04/11/2018 Status: F Source: [place] 3:51 PM [facility] REPOSITORY [facility] Cardiovascular Services [address] [place] [address] 12 Lead EKG 04/07/18 0523 MR#: [id number] Acct: [id number] Name: FLAVIA CASE Rep #: [id number] : 1950 68 From: Ferny Marie MD Attending Dr: Sandra Mcconnell Status: ADM IN Ordering Dr: Mike Oliva MD Date: 04/07/18 Location: [facility] Sex: F C Admitted: 04/10/18 Test Reason : PALPITATIONS Blood Pressure : / mmHG Vent. Rate : 105 BPM Atrial Rate : 088 BPM P-R Int : 000 ms QRS Dur : 106 ms QT Int : 336 ms P-R-T Axes : 000 082 -29 degrees QTc Int : 444 ms Atrial fibrillation with rapid ventricular response Nonspecific ST abnormality Abnormal QRS-T angle, consider primary T wave abnormality Abnormal ECG Confirmed by FERNY MARIE MD ([id number]), graphic editor SOUMYA BARTH ([id number]) on 04/11/2018 3:51:26 PM Referred By: JENISE Confirmed By:FERNY MARIE MD 04/11/18 1551 Date Ferny Marie MD CC: Sandra Mcconnell; Collin Gamez MD; Mike Oliva MD Signed CBC W/DIFF, AUTOMATED Collected: 04/11/2018 Status: F Source: [place] 1:15 PM [facility] REPOSITORY TYPE CODE TESTS RESULT OUT OF RANGE REFERENCE UNITS LAB L100.1000 4.4-11.0 K/mm3 Normal WBC 7.2 LAB L100.1200 4.2-5.4 M/mm3 Normal RBC 4.44 LAB L100.1300 12.0-15.0 g/dl Normal HGB 12.1 LAB L100.1400 37-47 % Normal HCT 37.2 LAB L100.1500 81-99 fL Normal MCV 83.8 LAB L100.1600 27.0-32.0 pg Normal MCH 27.3 LAB L100.1700 32-36 g/gl Normal MCHC 32.5 LAB L100.1810 11.6-14.6 % High RDW CV 16.2 LAB L100.1820 35.1-43.9 fl High RDW SD 48.4 LAB L100.1900 150-450 K/mm3 Normal PLT 168 LAB L100.2000 6.2-12.0 fl Normal MPV 11.5 LAB L100.2100 47-70 % Normal NEUT% 66.2 LAB L100.2200 19-41 % Normal LY% 19.1 LAB L100.2300 0-10 % Normal MONO% 9.4 LAB L100.2400 0-5 % Normal EO% 3.9 LAB L100.2500 0-1 % Normal BASO% 1.0 LAB L100.2550 0.0-0.9 % Normal IM GRAN % 0.400 Result Comment: IG% - Immature Granulocytes (promyelocytes, myelocytes and metamyelocytes) > 1% indicates that a LEFT SHIFT is Present. LAB L100.2620 2.0-7.7 X10 3/uL Normal Absolute Neut 4.8 LAB L100.2720 0.83-4.51 X10 3/ul Normal Absolute Lymph 1.38 Performed By: #### L100.0100 #### [facility] [address] [place], [address] PARTIAL THROMBOPLAST Collected: 04/11/2018 Status: F Source: [place] TIME 1:15 PM [facility] REPOSITORY TYPE CODE TESTS RESULT OUT OF REFERENCE UNITS RANGE LAB L300.4310 24.1-36.2 Seconds High PTT 45.4 Performed By: #### L300.4310 #### [facility] [address] [place], [address] BEDSIDE GLUCOSE Collected: 04/11/2018 Status: F Source: [place] 11:22 AM [facility] REPOSITORY TYPE CODE TESTS RESULT OUT OF REFERENCE UNITS RANGE LAB L501.080 70-110 mg/dL High BEDSIDE GLU 147 Result Comment: MANAGEMENT OF PATIENT CARE PER NURSING PROTOCOL Performed By: #### L501.080 #### [facility] Point of Care [address] [place] [address] BEDSIDE GLUCOSE Collected: 04/11/2018 Status: F Source: [place] 6:47 AM [facility] REPOSITORY TYPE CODE TESTS RESULT OUT OF REFERENCE UNITS RANGE LAB L501.080 70-110 mg/dL High BEDSIDE GLU 143 Result Comment: MANAGEMENT OF PATIENT CARE PER NURSING PROTOCOL Performed By: #### L501.080 #### [facility] Point of Care [address] [place] [address] PROTHROMBIN TIME W/INR Collected: 04/11/2018 Status: F Source: [place] 6:31 AM [facility] REPOSITORY TYPE CODE TESTS RESULT OUT OF RANGE REFERENCE UNITS LAB L300.4150 11.7-14.9 SECONDS High PROTIME 22.9 LAB L300.4200 Normal INR 2.0 Performed By: #### L300.3900 #### [facility] [address] [place], [address] BASIC METABOLIC Collected: 04/11/2018 Status: F Source: [place] PROFILE (BMP) 6:31 AM [facility] REPOSITORY TYPE CODE TESTS RESULT OUT OF RANGE REFERENCE UNITS LAB L501.0100 74-106 mg/dL High GLU 143 Result Comment: Fasting Glucose result greater than or equal to 126 mg/dL suggests DIABETES MELLITUS per A.D.A. criteria. Please note revised GLUCOSE reference range effective 2017. LAB L501.1000 7-18 mg/dL Normal BUN 17 LAB L501.1100 0.55-1.02 mg/dL Normal CREAT,SERUM 0.75 Result Comment: The validity of the calculated GFR AND GFRAA in patients over 70 years has not been determined. Clinical correlation is essential. LAB L501.1110 >60 mL/min Normal EST GFR 82 Result Comment: Non- GFR Calc LAB L501.1115 >60 mL/min Normal EST GFR - AA 99 Result Comment: GFR Calc LAB L501.1255 ml/min Normal Estimated CRCL 43.92 LAB L501.1300 10-20 RATIO High BUN/CRE 22.8 LAB L501.2200 8.5-10 mg/dL Normal .1 CA 9.2 LAB L501.5300 136-14 mmol/L Normal 5 NA 140 LAB L501.5600 3.5-5. mmol/L Normal 1 K 4.2 LAB L501.5900 98-107 mmol/L Normal CL 104 LAB L501.6100 21.0-3 mmol/L Normal 2.0 CO2 25.0 LAB L501.6200 5-15 Normal GAP 11 Performed By: #### L500.2500, L501.5200 #### [facility] [address] [place], [place], [address] MAGNESIUM Collected: 04/11/2018 Status: F Source: [place] 6:31 AM [facility] REPOSITORY TYPE CODE TESTS RESULT OUT OF RANGE REFERENCE UNITS LAB L501.5200 1.6-2.6 mg/dL Normal MG 1.9 Performed By: #### L500.2500, L501.5200 #### [facility] [address] [place], [address] BEDSIDE GLUCOSE Collected: 04/10/2018 Status: F Source: [place] 9:01 PM [facility] REPOSITORY TYPE CODE TESTS RESULT OUT OF REFERENCE UNITS RANGE LAB L501.080 70-110 mg/dL High BEDSIDE GLU 166 Result Comment: MANAGEMENT OF PATIENT CARE PER NURSING PROTOCOL Performed By: #### L501.080 #### [facility] Point of Care [address] [place] [address] BEDSIDE GLUCOSE Collected: 04/10/2018 Status: F Source: [place] 4:36 PM [facility] REPOSITORY TYPE CODE TESTS RESULT OUT OF REFERENCE UNITS RANGE LAB L501.080 70-110 mg/dL High BEDSIDE GLU 182 Result Comment: MANAGEMENT OF PATIENT CARE PER NURSING PROTOCOL Performed By: #### L501.080 #### [facility] Point of Care [address] [place] [address] CONSULTATION Observed: 04/10/2018 Status: F Source: [place] 12:54 PM [facility] REPOSITORY [facility] Medical Records Department [address] [place] [address] Consultation 04/09/18 0925 MR#: [id number] Acct: [id number] Name: FLAVIA CASE Rep #: [id number] : 1950 68 From: Ferny Marie MD PCP: Collin Gamez MD Status: ADM BOZENA Y Location: [place] [address] Reason for Consult Date of Consultation: 04/09/18 Reason for Consultation: Chest pain abnormal cardiac enzymes. Irregular heart rate History of Present Illness: The patient is a 68 year old F with an extensive past medical history consisting of coronary artery disease status post coronary artery bypass surgery, prosthetic aortic valve replacement and hypertension. She presented to the emergency room with complaints of chest discomfort and palpitations. She said that she had had some symptoms of chest discomfort before with chest pain radiating down the right side of her neck. She called emergency medical squad and when they saw her she was noted to be in atrial fibrillation and they brought her in to be in the emergency room. In the emergency room she was evaluated and was noted to be in atrial fibrillation with rapid ventricular response rate. She had presented to the hospital a week ago in atrial fibrillation with rapid ventricular response rate and converted to sinus rhythm. She underwent a pharmacologic myocardial perfusion stress test which demonstrated no evidence of ischemia a small anterolateral infarct cannot be completely excluded though. An echocardiogram was performed which demonstrated preserved ejection fraction with a stable prosthetic valve and a mean gradient of 37 mmHg across. During this hospitalization she was started on Cardizem and became bradycardic. Due to her mildly abnormal cardiac enzymes it was felt that she should undergo further cardiology evaluation with a cardiac catheterization. she has not had any further chest discomfort. Past Medical History Allergies/Adverse Reactions: Allergies adhesive Allergy (Verified 03/26/18 15:02) Rash fluticasone propionate [From Advair Diskus] Allergy (Verified 03/26/18 17:00) chest pain gabapentin [From Neurontin] Allergy (Verified 03/26/18 17:00) Swelling of feet and legs salmeterol xinafoate [From Advair Diskus] Allergy (Verified 03/26/18 17:00) chest pains albuterol [From Ventolin HFA] Adverse Reaction (Verified 03/26/18 17:00) jittery TOO JITTERY cephalexin monohydrate [From Keflex] Adverse Reaction (Verified 03/26/18 17:00) abdominal cramping pregabalin Adverse Reaction (Verified 03/26/18 17:00) makes me slow to respond Home Medications: Ambulatory Orders Medication Instructions Recorded Past Medical History (Chronic Problems): Chronic Problems Morbid obesity (Chronic) H/O prosthetic aortic valve replacement (Chronic) 1994 elevated BMI (Chronic) CAD (coronary artery disease) (Chronic) Hx of CABG (Chronic) Type 2 diabetes mellitus (Chronic) Hypertension (Chronic) Chronic obstructive lung disease (Chronic) Surgical History: - - aortic valve replacement 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: No pertinent psych hx 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 - *Family History Sibling History Items: Cancer - colorectal cancer in sister, Heart Disease Maternal History Items: Heart Disease, Hypertension Paternal History Items: Heart Disease, Hypertension Smoking Status: Former smoker Tobacco Use: Non-smoker Alcohol: Rare Drugs: None Subjectve: Pleasant lady in no apparent distress Objective: Vital Signs Temp Pulse Resp BP Pulse Ox 97.7 F L 67 17 147/68 H 94 04/09/18 08:29 04/09/18 08:29 04/09/18 08:29 04/09/18 08:29 04/09/18 08:29 Oxygen Flow Rate (L/min) 2 Oxygen Delivery Method Room Air Weight: 233 lb 14.567 oz Body Mass Index (BMI) 41.4 Intake and Output for Last 24 Hours Intake Total 990 / 990 1180 / 1180 150 / 150 Balance 990 / 990 1180 / 1180 150 / 150 General: Awake, Alert, Oriented x 3 HEENT: PERRL, EOMI, Sclera Non Icteric Neck: Supple, Good ROM, No Lymph Node Enlargement Lungs: Clear to auscultation Cardiovascular: Regular Rhythm, Normal S1, Normal S2, No Rubs, No Gallops, Josephine Prosthetic S1 Murmur Murmur: Grade 1/6, Early Systolic, LLSB Vascular: No Carotid Bruits, Normal Femoral Pulses, Normal Radial Pulses, Normal Dorsalis Pedal Pulse, Normal Posterior Tibial Pulses Abdomen: Bowel Sounds Present, Soft, Non Tender, No HSM, No Organomegaly Extremities: No Cyanosis, No Clubbing, No edema Musculoskeletal: No Erythema Skin: No Rashes Lymphatic: No Lymph Node Enlargement Neurological: No Focal Motor or Sensory Deficit Psych/Mental Status: Appropriate 04/09/18 06:24: Sodium 139, Potassium 4.1, Chloride 106, Carbon Dioxide 25.0, Anion Gap 8, BUN 24 H, Creatinine 0.81, Est GFR (MDRD) Af Amer 90, Est GFR (MDRD) Non-Af 74, BUN/Creatinine Ratio 29.6 H, Glucose 134 H, Calcium 8.4 L, Magnesium 2.1 04/09/18 06:24: WBC 8.4, RBC 4.18 L, Hgb 11.4 L, Hct 35.2 L, MCV 84.2, MCH 27.3, MCHC 32.4, RDW 16.8 H, RDW Differential 50.8 H, Plt Count 167, MPV 11.8 04/09/18 06:24: PT 27.0 H, INR 2.5 Rhythm: EKG: Normal sinus rhythm with a rate of 62 bpm and no acute changes Assessment/Plan 1. Atrial fibrillation with rapid ventricular response rate * Patient presents with recent onset atrial fibrillation flutter which responded very well to intravenous Cardizem. She has spontaneously converted back to sinus rhythm and is on the beta-yi * Would suggest continue anticoagulation with Coumadin * Echocardiogram demonstrated normal left ventricular size and function * Agree with the continuation of her beta-yi at 50 mg a day and will consider adding amiodarone 200 mg a day to her regimen. * 2. Chest pain * Patient has known coronary artery disease status post coronary bypass surgery * Chest discomfort is somewhat atypical but thus far her cardiac enzymes are minimally abnormal with no ischemia noted on a recent stress test. I would like to discuss this further with the primary network coordinator as to whether we continue to manage this medically or needs a cardiac catheterization. This is because the anticoagulation would need to be discontinued completely and we have to weigh the risks versus the benefit. * * 3. Prosthetic aortic valve- * Patient has been on anticoagulation and appears to be functioning well * Obtain echocardiogram to assess the above * Obtain records to confirm an INR of 2.5-3.5 * 4. Coronary artery disease * Patient is status post coronary bypass surgery * We will continue cardiac enzymes to rule out acute coronary syndrome. At this time I suspect the above is more secondary to demand ischemia. * 5. Hypertension * Pressure control appears to be fair * Would recommend the addition of the beta-yi. * * Thank you for allowing me to participate in the care of your patient. Please don't hesitate to call if any issues arise 04/10/18 1254 <Electronically signed by Ferny Marie MD> Date Ferny Marie MD Cosigner Signature (if applicable): Date CC: Collin Gamez MD Signed BEDSIDE GLUCOSE Collected: 04/10/2018 Status: F Source: [place] 11:55 AM [facility] REPOSITORY TYPE CODE TESTS RESULT OUT OF REFERENCE UNITS RANGE LAB L501.080 70-110 mg/dL High BEDSIDE GLU 185 Result Comment: MANAGEMENT OF PATIENT CARE PER NURSING PROTOCOL Performed By: #### L501.080 #### [facility] Point [place] [address] BEDSIDE GLUCOSE Collected: 04/10/2018 Status: F Source: [place] 6:47 AM [facility] REPOSITORY TYPE CODE TESTS RESULT OUT OF REFERENCE UNITS RANGE LAB L501.080 70-110 mg/dL High BEDSIDE GLU 132 Result Comment: MANAGEMENT OF PATIENT CARE PER NURSING PROTOCOL Performed By: #### L501.080 #### [facility] Point of Care [address] [place], [place] [address] PROTHROMBIN TIME W/INR Collected: 04/10/2018 Status: F Source: [place] 6:37 AM [facility] REPOSITORY TYPE CODE TESTS RESULT OUT OF RANGE REFERENCE UNITS LAB L300.4150 11.7-14.9 SECONDS High PROTIME 23.3 LAB L300.4200 Normal INR 2.1 Performed By: #### L300.3900 #### [facility] [address] [place], [address] BASIC METABOLIC Collected: 04/10/2018 Status: F Source: [place] PROFILE (BMP) 6:37 AM [facility] REPOSITORY TYPE CODE TESTS RESULT OUT OF RANGE REFERENCE UNITS LAB L501.0100 74-106 mg/dL High GLU 139 Result Comment: Fasting Glucose result greater than or equal to 126 mg/dL suggests DIABETES MELLITUS per A.D.A. criteria. Please note revised GLUCOSE reference range effective 2017. LAB L501.1000 7-18 mg/dL Normal BUN 16 LAB L501.1100 0.55-1.02 mg/dL Normal CREAT,SERUM 0.77 Result Comment: The validity of the calculated GFR AND GFRAA in patients over 70 years has not been determined. Clinical correlation is essential. LAB L501.1110 >60 mL/min Normal EST GFR 79 Result Comment: Non- GFR Calc LAB L501.1115 >60 mL/min Normal EST GFR - AA 95 Result Comment: GFR Calc LAB L501.1255 ml/min Normal Estimated CRCL 43.92 LAB L501.1300 10-20 RATIO High BUN/CRE 20.7 LAB L501.2200 8.5-10 mg/dL Normal .1 CA 8.8 LAB L501.5300 136-14 mmol/L Normal 5 NA 142 LAB L501.5600 3.5-5. mmol/L Normal 1 K 3.9 LAB L501.5900 98-107 mmol/L Normal CL 107 LAB L501.6100 21.0-3 mmol/L Normal 2.0 CO2 24.0 LAB L501.6200 5-15 Normal GAP 11 Performed By: #### L500.2500 #### [facility] [address] [place], [address] BEDSIDE GLUCOSE Collected: 04/09/2018 Status: F Source: [place] 9:20 PM [facility] REPOSITORY TYPE CODE TESTS RESULT OUT OF REFERENCE UNITS RANGE LAB L501.080 70-110 mg/dL High BEDSIDE GLU 156 Result Comment: MANAGEMENT OF PATIENT CARE PER NURSING PROTOCOL Performed By: #### L501.080 #### [facility] Point of Care [address] [place] [address] BEDSIDE GLUCOSE Collected: 04/09/2018 Status: F Source: [place] 4:45 PM [facility] REPOSITORY TYPE CODE TESTS RESULT OUT OF REFERENCE UNITS RANGE LAB L501.080 70-110 mg/dL High BEDSIDE GLU 212 Result Comment: MANAGEMENT OF PATIENT CARE PER NURSING PROTOCOL Performed By: #### L501.080 #### [facility] Point of Care [address] [place] [address] BEDSIDE GLUCOSE Collected: 04/09/2018 Status: F Source: [place] 11:42 AM [facility] REPOSITORY TYPE CODE TESTS RESULT OUT OF REFERENCE UNITS RANGE LAB L501.080 70-110 mg/dL High BEDSIDE GLU 203 Result Comment: MANAGEMENT OF PATIENT CARE PER NURSING PROTOCOL Performed By: #### L501.080 #### [facility] Point of Care [address] [place] [address] BEDSIDE GLUCOSE Collected: 04/09/2018 Status: F Source: [place] 6:43 AM [facility] REPOSITORY TYPE CODE TESTS RESULT OUT OF REFERENCE UNITS RANGE LAB L501.080 70-110 mg/dL High BEDSIDE GLU 140 Result Comment: MANAGEMENT OF PATIENT CARE PER NURSING PROTOCOL Performed By: #### L501.080 #### [facility] Point of Care [address] [place] [address] CBC-COMPLETE BLOOD CNT Collected: 04/09/2018 Status: F Source: [place] NO DIFF 6:24 AM [facility] REPOSITORY TYPE CODE TESTS RESULT OUT OF RANGE REFERENCE UNITS LAB L100.1000 4.4-11.0 K/mm3 Normal WBC 8.4 LAB L100.1200 4.2-5.4 M/mm3 Low RBC 4.18 LAB L100.1300 12.0-15.0 g/dl Low HGB 11.4 LAB L100.1400 37-47 % Low HCT 35.2 LAB L100.1500 81-99 fL Normal MCV 84.2 LAB L100.1600 27.0-32.0 pg Normal MCH 27.3 LAB L100.1700 32-36 g/gl Normal MCHC 32.4 LAB L100.1810 11.6-14.6 % High RDW CV 16.8 LAB L100.1820 35.1-43.9 fl High RDW SD 50.8 LAB L100.1900 150-450 K/mm3 Normal PLT 167 LAB L100.2000 6.2-12.0 fl Normal MPV 11.8 Performed By: #### L100.0500 #### [facility] [address] [place], [address] BASIC METABOLIC Collected: 04/09/2018 Status: F Source: [place] PROFILE (BMP) 6:24 AM [facility] REPOSITORY TYPE CODE TESTS RESULT OUT OF RANGE REFERENCE UNITS LAB L501.0100 74-106 mg/dL High GLU 134 Result Comment: Fasting Glucose result greater than or equal to 126 mg/dL suggests DIABETES MELLITUS per A.D.A. criteria. Please note revised GLUCOSE reference range effective 2017. LAB L501.1000 7-18 mg/dL High BUN 24 LAB L501.1100 0.55-1.02 mg/dL Normal CREAT,SERUM 0.81 Result Comment: The validity of the calculated GFR AND GFRAA in patients over 70 years has not been determined. Clinical correlation is essential. LAB L501.1110 >60 mL/min Normal EST GFR 74 Result Comment: Non- GFR Calc LAB L501.1115 >60 mL/min Normal EST GFR - AA 90 Result Comment: GFR Calc LAB L501.1255 ml/min Normal Estimated CRCL 54.22 LAB L501.1300 10-20 RATIO High BUN/CRE 29.6 LAB L501.2200 8.5-10 mg/dL Low .1 CA 8.4 LAB L501.5300 136-14 mmol/L Normal 5 NA 139 LAB L501.5600 3.5-5. mmol/L Normal 1 K 4.1 Result Comment: Slight Hemolysis, Result may be falsely increased. LAB L501.5900 98-107 mmol/L Normal CL 106 LAB L501.6100 21.0-32.0 mmol/L Normal CO2 25.0 LAB L501.6200 5-15 Normal 8 GAP Performed By: #### L500.2500, L501.5200 #### [facility] [address] [place], [address] MAGNESIUM Collected: 04/09/2018 Status: F Source: [place] 6:24 AM [facility] REPOSITORY TYPE CODE TESTS RESULT OUT OF RANGE REFERENCE UNITS LAB L501.5200 1.6-2.6 mg/dL Normal MG 2.1 Result Comment: Slight Hemolysis, Result may be falsely increased. Performed By: #### L500.2500, L501.5200 #### [facility] [address] [facility] [place], [address] PROTHROMBIN TIME W/INR Collected: 04/09/2018 Status: F Source: [place] 6:24 AM [facility] REPOSITORY TYPE CODE TESTS RESULT OUT OF RANGE REFERENCE UNITS LAB L300.4150 11.7-14.9 SECONDS High PROTIME 27.0 LAB L300.4200 Normal INR 2.5 Performed By: #### L300.3900 #### [facility] [place], [address] BEDSIDE GLUCOSE Collected: 04/08/2018 Status: F Source: [place] 10:45 PM [facility] REPOSITORY TYPE CODE TESTS RESULT OUT OF REFERENCE UNITS RANGE LAB L501.080 70-110 mg/dL High BEDSIDE GLU 181 Result Comment: MANAGEMENT OF PATIENT CARE PER NURSING PROTOCOL Performed By: #### L501.080 #### [facility] Point of Care [address] [facility] [address] BEDSIDE GLUCOSE Collected: 04/08/2018 Status: F Source: [place] 4:28 PM [facility] REPOSITORY TYPE CODE TESTS RESULT OUT OF REFERENCE UNITS RANGE LAB L501.080 70-110 mg/dL High BEDSIDE GLU 229 Result Comment: MANAGEMENT OF PATIENT CARE PER NURSING PROTOCOL Performed By: #### L501.080 #### [facility] Point of Care [address] [place], [place] [id number] BEDSIDE GLUCOSE Collected: 04/08/2018 Status: F Source: [place] 11:13 AM [facility] REPOSITORY TYPE CODE TESTS RESULT OUT OF REFERENCE UNITS RANGE LAB L501.080 70-110 mg/dL High BEDSIDE GLU 200 Result Comment: MANAGEMENT OF PATIENT CARE PER NURSING PROTOCOL Performed By: #### L501.080 #### [facility] Point of Care [address] [place], [place] [id number] BEDSIDE GLUCOSE Collected: 04/08/2018 Status: F Source: [place] 7:06 AM [facility] REPOSITORY TYPE CODE TESTS RESULT OUT OF REFERENCE UNITS RANGE LAB L501.080 70-110 mg/dL High BEDSIDE GLU 169 Result Comment: MANAGEMENT OF PATIENT CARE PER NURSING PROTOCOL Performed By: #### L501.080 #### [facility] Point of Care [address] [place] [address] PROTHROMBIN TIME W/INR Collected: 04/08/2018 Status: F Source: [place] 6:18 AM [facility] REPOSITORY TYPE CODE TESTS RESULT OUT OF REFERENCE UNITS RANGE LAB L300.4150 11.7-14.9 SECONDS High PROTIME 35.5 LAB L300.4200 High alert INR 3.5 Result Comment: CRITICAL VALUE VERIFIED. CALLED TO KOKO POON 04/08/18 0713 Dana Armas. RESULTS READ BACK BY SAME . Performed By: #### L300.3900 #### [facility] [address] [place], [place], [address] BEDSIDE GLUCOSE Collected: 04/07/2018 Status: F Source: [place] 9:44 PM [facility] REPOSITORY TYPE CODE TESTS RESULT OUT OF REFERENCE UNITS RANGE LAB L501.080 70-110 mg/dL High BEDSIDE GLU 183 Result Comment: MANAGEMENT OF PATIENT CARE PER NURSING PROTOCOL Performed By: #### L501.080 #### [facility] Point of Care [address] [place] [address] BEDSIDE GLUCOSE Collected: 04/07/2018 Status: F Source: [place] 4:49 PM [facility] REPOSITORY TYPE CODE TESTS RESULT OUT OF REFERENCE UNITS RANGE LAB L501.080 70-110 mg/dL High BEDSIDE GLU 197 Result Comment: MANAGEMENT OF PATIENT CARE PER NURSING PROTOCOL Performed By: #### L501.080 #### [facility] Point of Care [address] [place] [address] HISTORY AND PHYSICAL Observed: 04/07/2018 Status: F Source: [place] EXAM 12:53 PM [facility] REPOSITORY [facility] Medical Records Department [address] [place] [address] History and Physical 04/07/18 1213 MR#: [id number] Acct: [id number] Name: FLAVIA CASE Rep #: [id number] : 1950 68 From: Parvin Mcconnell DO PCP: Collin Gamez MD Status: ADM BOZENA Y Location: [place] [address] Problem List (1) Morbid obesity Status: Chronic (2) Unstable angina Status: Acute (3) Paroxysmal atrial fibrillation with RVR Status: Acute (4) H/O prosthetic aortic valve replacement Status: Chronic Comment: 1994 (5) CAD (coronary artery disease) Status: Chronic (6) Chronic obstructive lung disease Status: Chronic (7) Hx of CABG Status: Chronic (8) Hypertension Status: Chronic (9) Type 2 diabetes mellitus Status: Chronic History of Present Illness Date of Admission: 04/07/18 Chief Complaint: palpitations and substernal chest pain The patient is a 68 year old F with a past medical history of coronary artery disease, CABG, prosthetic aortic valve replacement, hypertension, morbid obesity, type 2 diabetes mellitus and COPD who presented to the emergency department at [facility] on 04/07/2018 complaining of sudden onset of her heart racing and substernal chest pain this a.m. The heart racing began prior to the chest discomfort. She had no radiation of the pain but did experience shortness of breath and nausea. EKG in the emergency room showed atrial fibrillation with rapid ventricular response and nonspecific ST and T wave changes. She was recently admitted to the hospital on 03/26/2018 for atrial fibrillation with RVR and at that time had a stress test that was negative for ischemia. She converted to normal sinus rhythm prior to discharge and she was discharged on atenolol 50 mg p.o. daily. Vital signs of presentation to the emergency room were temp 98.8, pulse rate 102, blood pressure 145/53, respiratory rate 20 and she was 95% saturated on room air. She was given metoprolol 5 mg IV while in the emergency room and the heart rate came under better control. All lab was personally reviewed. CBC is unremarkable. INR is therapeutic at 3.3. Electrolytes are within normal limits and the magnesium was 2.0. Initial troponin was less than 0.015. Hemoglobin A1c is 8.3. Chest x-ray shows no infiltrates, pleural effusions or pulmonary vascular congestion. She is being admitted to the hospital with a diagnosis of PAF with RVR/recurrent. Echocardiogram in early March showed moderate concentric left ventricular hypertrophy with a 60% ejection fraction. She has stage III diastolic dysfunction, moderate aortic stenosis with a mean aortic valve gradient of 37. The aortic valve area was 0.9 cm . The left atrium was mildly enlarged in the right atrium was normal Past Medical History Past Medical History (Chronic Problems): Chronic Problems Morbid obesity (Chronic) H/O prosthetic aortic valve replacement (Chronic) 1994 elevated BMI (Chronic) CAD (coronary artery disease) (Chronic) Hx of CABG (Chronic) Type 2 diabetes mellitus (Chronic) Hypertension (Chronic) Chronic obstructive lung disease (Chronic) Allergies adhesive Allergy (Verified 03/26/18 15:02) Rash fluticasone propionate [From Advair Diskus] Allergy (Verified 03/26/18 17:00) chest pain gabapentin [From Neurontin] Allergy (Verified 03/26/18 17:00) Swelling of feet and legs salmeterol xinafoate [From Advair Diskus] Allergy (Verified 03/26/18 17:00) chest pains albuterol [From Ventolin HFA] Adverse Reaction (Verified 03/26/18 17:00) jittery TOO JITTERY cephalexin monohydrate [From Keflex] Adverse Reaction (Verified 03/26/18 17:00) abdominal cramping pregabalin Adverse Reaction (Verified 03/26/18 17:00) makes me slow to respond Home Medications: Ambulatory Orders Medication Instructions Recorded Surgical History: - - aortic valve replacement 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: No pertinent psych hx 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 Denies: Syncope Respiratory: Reports: Shortness of Breath, Shortness of breath at rest, Shortness of breath upon exertion. Denies: Cough, Sputum production Gastrointestinal: Reports: Nausea. Denies: Abdominal Pain, Vomiting Genitourinary: Denies: Dysuria Musculoskeletal: Denies: Joint Pain, Joint Tenderness Skin: Denies: Rash, Wounds Neurological: Denies: Numbness, Tingling, Focal weakness Psychiatric: Reports: Anxiety. Denies: Depression, Homicidal Ideations, Suicidal Ideations Hematologic/ Lymphatic: Reports: Easy Bruising, Easy Bleeding. Denies: Hx of blood clot VTE Information - Inpt Only VTE Present on Admission: No VTE Mechan Device Prophylaxis: None VTE Pharm Prophylaxis ordered?: No Reason prophylaxis not ordered:: Treatment Not Indicated - INR is 3.3 on Warfarin Patient Problems: Active and Suspected Problems Unstable angina (Acute) Paroxysmal atrial fibrillation with RVR (Acute) - Physical Exam General: Alert, Oriented x3, Cooperative, No apparent distress, Well developed, Well nourished HEENT: Atraumatic, PERRLA, EOMI, Normocephalic Oral: Moist Mucosa Neck: Supple, No JVD, Negative Carotid Bruits Lungs: Clear to auscultation, Normal air movement Cardiovascular: Normal S1, Normal S2, No murmurs, Irregular Rate, No Gallop, Tachycardic, - - she has a mechanical aortic valve click Abdomen: Bowel Sounds Present, Soft, Non Tender, Obese Extremities: No clubbing, No cyanosis, No edema, Capillary Refill Less than 3 Seconds, No Calf Tenderness Skin: No rashes, No breakdown Musculoskeletal: No Tenderness to Palpation of Joints or Extremities Neurological: Cranial nerves II-XII grossly intact, Neuro grossly intact Psych/Mental Status: Normal Affect, Appropriate, Anxious Vital Signs Temp Pulse Resp BP Pulse Ox 98.4 F 85 20 H 129/58 H 96 04/07/18 08:00 04/07/18 10:59 04/07/18 08:00 04/07/18 08:00 04/07/18 08:00 Oxygen Flow Rate (L/min) 2 Oxygen Delivery Method Room Air Weight: 233 lb 14.567 oz Body Mass Index (BMI) 41.4 Laboratory Tests Past 24 Hrs WBC 6.6 WBC RBC Hgb Hct WBC RBC Hgb Hct MCV MCH MCHC RDW RDW Differential Plt Count MPV Immature Gran % (Auto) Neut % (Auto) Lymph % (Auto) POC Glucose POC Glucose 225 H 258 H Assessment/Plan All Active Problems Unstable angina (Acute) Paroxysmal atrial fibrillation with RVR (Acute) Impressions 1. unstable angina - I suspect the pain and the increased troponin are due to AF with RVR. The second troponin increased to 0.095.......it peaked at 0.582 on her last admission and the stress test was negative for ischemia. 2. Coronary artery disease with history of CABG 3. Moderate aortic stenosis with history of mechanical aortic valve replacement in 1994-recent valve area 0.9 cm 4. Hypertension 5. Morbid obesity 6. COPD 7. Diabetes mellitus type 2-not optimally controlled Admit to a monitored bed on PCU ASA 81 mg PO daily SL NTG 0.4 mg PRN chest pain Serial Cardiac Enzymes Stat EKG PRN CP Chest XRAY DC Norvasc and start Cardizem to better control the heart rate Recent stress was negative and she was seen by cardiology at the last visit.......no plan for anything but rate control at present. If unable to control HR or if chest pain persists will reconsult cardiology Code Visit Inpatient Tomasa AND Parvin: [id number] Init Hosp L3 04/07/18 1253 <Electronically signed by Parvin Mcconnell DO> Date Parvin Mcconnell DO Cosigner Signature: Date (if applicable) CC: Sandra Mcconnell; Collin Gamez MD Signed TROPONIN-I Collected: 04/07/2018 Status: F Source: [place] 11:24 AM [facility] REPOSITORY Order Comment: 'TROP' Serial specimen #1, #2 or #3: 3 TYPE CODE TESTS RESULT OUT OF RANGE REFERENCE UNITS LAB L501.4010 <0.045 ng/mL High 0.095 TROPONIN-I Result Comment: TROPONIN-I EXPECTED VALUES <0.045 Negative 0.045 - 0.590 Consistent with Cardiac Damage > OR = 0.600 Critical Value Not every elevated troponin is indicative of FL. These values should be used with clinical judgement in examining the patient's clinical picture for diagnosis. To establish a diagnosis of FL versus myocardial injury, there must be a demonstrated rise and/or fall in the troponin values, in addition to ischemic symptoms, EKG changes, new regional wall motion abnormality, and/or angiographical evidence. PLEASE NOTE: REFERENCE RANGES EDITED 17 Performed By: #### L501.4010 #### [facility] [address] [place], [place], [address] BEDSIDE GLUCOSE Collected: 04/07/2018 Status: F Source: [place] 11:21 AM [facility] REPOSITORY TYPE CODE TESTS RESULT OUT OF REFERENCE UNITS RANGE LAB L501.080 70-110 mg/dL High BEDSIDE GLU 225 Result Comment: MANAGEMENT OF PATIENT CARE PER NURSING PROTOCOL Performed By: #### L501.080 #### [facility] Point of Care [address] [place] [address] TROPONIN-I Collected: 04/07/2018 Status: F Source: [place] 8:18 AM [facility] REPOSITORY Order Comment: 'TROP' Serial specimen #1, #2 or #3: 2 TYPE CODE TESTS RESULT OUT OF RANGE REFERENCE UNITS LAB L501.4010 <0.045 ng/mL Normal 0.041 TROPONIN-I Result Comment: TROPONIN-I EXPECTED VALUES <0.045 Negative 0.045 - 0.590 Consistent with Cardiac Damage > OR = 0.600 Critical Value Not every elevated troponin is indicative of FL. These values should be used with clinical judgement in examining the patient's clinical picture for diagnosis. To establish a diagnosis of FL versus myocardial injury, there must be a demonstrated rise and/or fall in the troponin values, in addition to ischemic symptoms, EKG changes, new regional wall motion abnormality, and/or angiographical evidence. PLEASE NOTE: REFERENCE RANGES EDITED 17 Performed By: #### L501.4010 #### [facility] [address] [place], [address] BEDSIDE GLUCOSE Collected: 04/07/2018 Status: F Source: [place] 8:07 AM [facility] REPOSITORY TYPE CODE TESTS RESULT OUT OF REFERENCE UNITS RANGE LAB L501.080 70-110 mg/dL High BEDSIDE GLU 258 Result Comment: MANAGEMENT OF PATIENT CARE PER NURSING PROTOCOL Performed By: #### L501.080 #### [facility] Point of Care [address] [facility] [place] [address] EMERGENCY DEPARTMENT Observed: 04/07/2018 Status: F Source: [place] SUMMARY 7:05 AM [facility] REPOSITORY [facility] Medical Records Department [address] [place] [address] Emergency Department Summary 04/07/18 0658 MR#: [id number] Acct: [id number] Name: FLAVIA CASE Rep #: [id number] : 1950 68 From: Mike Oliva MD PCP: Collin Gamez MD Status: REG ER - ER Visit Summary Date of Service: 04/07/18 Chief Complaint: Atrial fibrillation History of Present Illness: The patient is a 68 F who presents with atrial fibrillation. She has a known history and is anticoagulated. About 2 hours before he was already awake but began to feel like her heart was racing and fluttering. She developed central chest pressure which she rated as a 5 out of 10. She also felt short of breath. She called EMS. She was given aspirin and 2 nitroglycerin. She reports improvement but not resolution of her chest pain. He was recently admitted for similar symptoms and underwent stress testing. Physical Examination: Afebrile vitals notable for heart rate 102 Heart is irregularly irregular and slightly tachycardic Lungs are clear Abdomen soft nontender Alert Test Results: EKG shows atrial fibrillation at a rate of 105. Chest x-ray shows no acute disease. Labs unremarkable with negative troponin. Emergency Department Course and Treatment: Patient was continued complaint of chest discomfort and pressure despite being rate controlled. She was given additional sublingual nitroglycerin here with resolution of symptoms. Although she did have a recent negative stress with ongoing angina despite being rate controlled I do feel at minimum she needs repeat enzymes. She was discussed with the hospitalist will be admitted. Treatment Plan: [] Disposition: Admit Impression: Chest pain A. fib with RVR This note was generated with [employer] dictation software. It may contain incorrect words, spelling, and punctuation that were not noted in review of the chart prior to signing ED Disposition - Plan for ED Patient: Chief Complaint: Palpitations Referrals: Collin Gamez MD [Primary Care Provider] - What to do if you have Problems For any increased pain, shortness of breath, bleeding, nausea or vomiting, chest pain, or any unexpected problems, contact your Primary Care Provider. Call [facility] ([phone]) or report to the closest Emergency Room. Call 911 if necessary. 04/07/18 0705 <Electronically signed by Mike Oliva MD> Date Mike Oliva MD Cosigner Signature (If Indicated): Date CC: Collin Gamez MD CHEST 1 VIEW Observed: 04/07/2018 Status: F Source: [place] (PORTABLE) 5:48 AM [facility] REPOSITORY [facility] Imaging Services [address] [place] [id number] Chest 1 View (Portable) MR#: [id number] Acct: [id number] Name: FLAVIA CASE Rep #: [id number] : 1950 F 68 From: Jeremi Baig MD PCP: Collin Gamez MD Status: REG ER Study: Chest 1 View (Portable) Date of Exam: 04/07/18 Exam# [id number] Ordering Dr: Mike Oliva MD HISTORY: PT STATED AFIB SINCE 0330. HX OF BYPASS STENTS EXAM: XR Chest 1 View: Portable COMPARISON: 03/26/2018 FINDINGS: EKG leads in place. Shallow inspiration. The heart appears normal in size. No vascular congestion, pleural effusion, or acute pulmonary infiltration. Median sternotomy and postsurgical changes in keeping with aortic valve replacement and previous CABG. No pneumothorax. Atherosclerotic thoracic aorta. RAD/Chest 1 View (Portable) IMPRESSION: 1. No acute disease or significant change. Xi 2. Postsurgical changes, as above. at 0618 Reported and signed by: Jeremi Baig MD Electronically Signed: Jeremi Baig, at 6:16 EST Tel , Service support , CC: Collin Gamez MD; Mike Oliva MD Tax Associate Attorney: Signed CBC W/DIFF, AUTOMATED Collected: 04/07/2018 Status: F Source: [place] 5:18 AM [facility] REPOSITORY TYPE CODE TESTS RESULT OUT OF RANGE REFERENCE UNITS LAB L100.1000 4.4-11.0 K/mm3 Normal WBC 6.6 LAB L100.1200 4.2-5.4 M/mm3 Normal RBC 4.52 LAB L100.1300 12.0-15.0 g/dl Normal HGB 12.4 LAB L100.1400 37-47 % Normal HCT 37.2 LAB L100.1500 81-99 fL Normal MCV 82.3 LAB L100.1600 27.0-32.0 pg Normal MCH 27.4 LAB L100.1700 32-36 g/gl Normal MCHC 33.3 LAB L100.1810 11.6-14.6 % High RDW CV 16.5 LAB L100.1820 35.1-43.9 fl High RDW SD 48.7 LAB L100.1900 150-450 K/mm3 Normal PLT 166 LAB L100.2000 6.2-12.0 fl Normal MPV 11.8 LAB L100.2100 47-70 % Normal NEUT% 59.5 LAB L100.2200 19-41 % Normal LY% 26.7 LAB L100.2300 0-10 % Normal MONO% 8.4 LAB L100.2400 0-5 % Normal EO% 4.0 LAB L100.2500 0-1 % Normal BASO% 0.9 LAB L100.2550 0.0-0.9 % Normal IM GRAN % 0.500 Result Comment: IG% - Immature Granulocytes (promyelocytes, myelocytes and metamyelocytes) > 1% indicates that a LEFT SHIFT is Present. LAB L100.2620 2.0-7.7 X10 3/uL Normal Absolute Neut 3.9 LAB L100.2720 0.83-4.51 X10 3/ul Normal Absolute Lymph 1.76 Performed By: #### L100.0100 #### [facility] [address] [place], [address] BASIC METABOLIC Collected: 04/07/2018 Status: F Source: [place] PROFILE (BMP) 5:18 AM [facility] REPOSITORY TYPE CODE TESTS RESULT OUT OF RANGE REFERENCE UNITS LAB L501.0100 74-106 mg/dL High GLU 237 Result Comment: Glucose result greater than or equal to 200 mg/dL suggests DIABETES MELLITUS per A.D.A. criteria. Please note revised GLUCOSE reference range effective 2017. LAB L501.1000 7-18 mg/dL Normal BUN 18 LAB L501.1100 0.55-1.02 mg/dL Normal CREAT,SERUM 0.84 Result Comment: The validity of the calculated GFR AND GFRAA in patients over 70 years has not been determined. Clinical correlation is essential. LAB L501.1110 >60 mL/min Normal EST GFR 71 Result Comment: Non- GFR Calc LAB L501.1115 >60 mL/min Normal EST GFR - AA 86 Result Comment: GFR Calc LAB L501.1255 ml/min Normal Estimated CRCL 52.29 LAB L501.1300 10-20 RATIO High BUN/CRE 21.4 LAB L501.2200 8.5-10 mg/dL Normal .1 CA 9.0 LAB L501.5300 136-14 mmol/L Normal 5 NA 139 LAB L501.5600 3.5-5. mmol/L Normal 1 K 3.8 LAB L501.5900 98-107 mmol/L Normal CL 105 LAB L501.6100 21.0-3 mmol/L Normal 2.0 CO2 25.0 LAB L501.6200 5-15 Normal GAP 9 Performed By: #### L500.2500, L501.4010 #### [facility] [address] [place], [address] TROPONIN-I Collected: 04/07/2018 Status: F Source: [place] 5:18 AM [facility] REPOSITORY TYPE CODE TESTS RESULT OUT OF RANGE REFERENCE UNITS LAB L501.4010 <0.045 ng/mL Normal < 0.015 TROPONIN-I Result Comment: TROPONIN-I EXPECTED VALUES <0.045 Negative 0.045 - 0.590 Consistent with Cardiac Damage > OR = 0.600 Critical Value Not every elevated troponin is indicative of FL. These values should be used with clinical judgement in examining the patient's clinical picture for diagnosis. To establish a diagnosis of FL versus myocardial injury, there must be a demonstrated rise and/or fall in the troponin values, in addition to ischemic symptoms, EKG changes, new regional wall motion abnormality, and/or angiographical evidence. PLEASE NOTE: REFERENCE RANGES EDITED 17 Performed By: #### L500.2500, L501.4010 #### [facility] [address] [place], [address] PROTHROMBIN TIME W/INR Collected: 04/07/2018 Status: F Source: [place] 5:18 AM [facility] REPOSITORY TYPE CODE TESTS RESULT OUT OF RANGE REFERENCE UNITS LAB L300.4150 11.7-14.9 SECONDS High PROTIME 34.1 LAB L300.4200 Normal INR 3.3 Performed By: #### L300.3900 #### [facility] [address] [place], [address] MAGNESIUM Collected: 04/07/2018 Status: F Source: [place] 5:18 AM [facility] REPOSITORY TYPE CODE TESTS RESULT OUT OF RANGE REFERENCE UNITS LAB L501.5200 1.6-2.6 mg/dL Normal MG 2.0 Performed By: #### L501.5200 #### [facility] [address] [place], [address] HEMOGLOBIN A1C Collected: 04/07/2018 Status: F Source: [place] 5:18 AM [facility] REPOSITORY TYPE CODE TESTS RESULT OUT OF RANGE REFERENCE UNITS LAB L501.9985 4.2-6.3 % High HGB A1C 8.3 Performed By: #### L501.9985 #### [facility] [address] [place], [address] PROGRESS Observed: 04/03/2018 Status: COMPLETED Source: [place] 2:57 PM [facility] REPOSITORY HNO ID: [id number] Author: Keri Mo) Vera Service: (none) Author Type: Physician Type: Progress Notes Filed: 04/03/2018 2:57 PM Note Text: Reviewed. thanks PROGRESS Observed: 04/03/2018 Status: COMPLETED Source: [place] 9:30 AM [facility] REPOSITORY HNO ID: [id number] Author: Himanshu SamuelsRn) Sybil Service: (none) Author Type: Registered Nurse Type: Progress Notes Filed: 04/03/2018 2:53 PM Note Text: TRANSITION CARE MANAGEMENT (TCM) FOLLOW-UP NOTE Provider Action/FYI No SOB, Chest Pain or palpitations since D/C States she feels better than she has felt in a long time Received letter recommending sleep study because it can cause A fib Appt w/ PCP on 04/11 Appt w/ Dr. Corado on 04/18 Would like to establish with new network coordinator in [place] instead of driving to [place] Continuing taking warfarin 6 mg daily except 3 mg on and Appt made for coumadin clinic on 04/11 Shower chair script faxed to [facility] [place] Patient identified by name and date of : YES Spoke to patient Summary: Patient states she received a letter from [facility] that A fib can be caused by sleep apnea and they recommend pt have a sleep study. They didn't order the sleep study. Informed PCC will discuss with PCP and he will discuss with patient at 04/11 appt, verbalized agreement. Concerns: TC to patient, left message to please call PCC back regarding where shower chair script is to be faxed and to discuss coumadin and INR. Himanshu Aquino RN April 03, 2018 9:31 AM TC to patient, left message to please call PCC back Himanshu Aquino RN April 02, 2018 2:54 PM Blue Leather Sorter plan for next outreach: Will follow up one week Signature Himanshu Aquino RN April 03, 2018 12 LEAD ELECTROCARDIOGRAM Observed: 03/30/2018 Status: F Source: [place] 3:07 PM [facility] REPOSITORY [facility] Cardiovascular Services [address] [place] [address] 12 Lead EKG 03/28/18 0530 MR#: [id number] Acct: [id number] Name: FLAVIA CASE Rep #: [id number] : 1950 67 From: Ferny Marie MD Attending Dr: Alex Lainez MD Status: DIS IN Ordering Dr: Ferny Marie MD Date: 03/28/18 Location: [facility] Sex: F C Admitted: 03/26/18 Test Reason : AM EKG Blood Pressure : / mmHG Vent. Rate : 062 BPM Atrial Rate : 062 BPM P-R Int : 170 ms QRS Dur : 108 ms QT Int : 448 ms P-R-T Axes : 027 073 032 degrees QTc Int : 454 ms Normal sinus rhythm Nonspecific ST abnormality Abnormal ECG When compared with ECG of 27-MAR-2018 07:23, MANUAL COMPARISON REQUIRED, DATA IS UNCONFIRMED Confirmed by FRANK ONEAL, FERNY ([id number]), graphic editor SOUMYA BARTH ([id number]) on 03/30/2018 3:06:38 PM Referred By: Ana Bradford Confirmed By:FERNY MARIE MD 03/30/18 1506 Date Ferny Marie MD CC: Collin Gamez MD; Ferny Marie MD; Alex Lainez MD; Ana Bradford MD Signed 12 LEAD ELECTROCARDIOGRAM Observed: 03/30/2018 Status: F Source: [place] 3:07 PM [facility] REPOSITORY [facility] Cardiovascular Services [address] [place] [address] 12 Lead EKG 03/27/18 0723 MR#: [id number] Acct: [id number] Name: FLAVIA CASE Rep #: [id number] : 1950 67 From: Ferny Marie MD Attending Dr: Alex Lainez MD Status: DIS IN Ordering Dr: Nieves Jim MD Date: 03/27/18 Location: [facility] Sex: F C Admitted: 03/26/18 Test Reason : CONVERTED Blood Pressure : / mmHG Vent. Rate : 064 BPM Atrial Rate : 064 BPM P-R Int : 186 ms QRS Dur : 106 ms QT Int : 442 ms P-R-T Axes : 047 080 061 degrees QTc Int : 455 ms Normal sinus rhythm Nonspecific ST abnormality Abnormal ECG When compared with ECG of 27-MAR-2018 05:06, MANUAL COMPARISON REQUIRED, DATA IS UNCONFIRMED Confirmed by FRANK ONEAL, FERNY ([id number]), graphic editor SOUMYA BARTH ([id number]) on 03/30/2018 3:06:49 PM Referred By: Ana Bradford Confirmed By:FERNY MARIE MD 03/30/18 1506 Date Ferny Marie MD CC: Collin Gamez MD; Alex Lainez MD; Ana Bradford MD; Nieves Jim MD Signed PROGRESS Observed: 03/29/2018 Status: COMPLETED Source: [place] 4:11 PM [facility] REPOSITORY HNO ID: [id number] Author: Keri Mo) Vera Service: (none) Author Type: Physician Type: Progress Notes Filed: 03/29/2018 4:11 PM Note Text: INR therapeutic. Continue current coumadin dosage and follow up in 2 weeks. meds updated PROGRESS Observed: 03/29/2018 Status: COMPLETED Source: [place] 4:03 PM [facility] REPOSITORY HNO ID: [id number] Author: Himanshu SamuelsRn) Sybil Service: (none) Author Type: Registered Nurse Type: Progress Notes Filed: 03/29/2018 4:09 PM Note Text: PRIMARY CARE COORDINATION QUICK NOTE Provider Action/FYI When do you want pt to get next INR INR on 03/28 at [facility] 2.9 Warfarin 3 mg Tues/Thurs and 6 mg all other days. ORDER FOR SHOWER CHAIR PENDED FOR YOUR APPROVAL PLEASE FILE MEDICATION UPDATES Patient identified by name and date . Himanshu Aquino RN March 29, 2018 4:07 PM PROGRESS Observed: 03/29/2018 Status: COMPLETED Source: [place] 3:46 PM [facility] REPOSITORY HNO ID: [id number] Author: Keri Mo) Vera Service: (none) Author Type: Physician Type: Progress Notes Filed: 03/29/2018 3:46 PM Note Text: Reviewed. Thanks. PROGRESS Observed: 03/29/2018 Status: COMPLETED Source: [place] 3:33 PM [facility] REPOSITORY HNO ID: [id number] Author: Himanshu Green) Sybil Service: (none) Author Type: Registered Nurse Type: Progress Notes Filed: 03/29/2018 3:35 PM Note Text: PRIMARY CARE COORDINATION QUICK NOTE Provider Action/FYI Noted TCM on 04/11 PCC will f/u next week Patient identified by name and date . Himanshu Aquino RN March 29, 2018 3:35 PM PROGRESS Observed: 03/29/2018 Status: COMPLETED Source: [place] 2:55 PM [facility] REPOSITORY HNO ID: [id number] Author: Radha Bartholomew) WAQAS Gibson Service: (none) Author Type: LICENSED NURSE Type: Progress Notes Filed: 04/03/2018 5:08 PM Note Text: TRANSITION CARE MANAGEMENT (TCM) INITIAL CONTACT Financial Institution Branch Manager Outreach Provider Action/FYI: Pt just wanting doctor to know when Dr. Corado retires August 22 she will be going to [place] [facility] . Then any surgeries she wants to go to [facility] Initial contact with patient post discharge, spoke to patient. Patient identified by name and . TRANSITION CARE MANAGEMENT INITIAL OUTREACH DOCUMENTATION: Date of Outreach: 03/29/2018 03/29/2018 Outreach Attempt 1: Contact Not Made - Date of Discharge 03/28/2018 03/28/2018 Some recent data might be hidden SUMMARY: -Pt discharged from [facility] on 03/28/18. -Admitted for: chest pain ,a fib Do you have a hospital follow up appointment with your PCP? Appointment on 04/11/[address] GAMEZ. Yes. Remind patient of appointment date, time, and location. If not within 14 calendar days of discharge - please reschedule accordingly. MEDICATIONS: Many patients have questions or concerns about their medications once they are home. Were you prescribed any new medications? No Were you told to hold any medications? Yes , Glucophage for 48 hours she will continue taking on Monday the . Were any of your medications discontinued? No Do you have any questions about getting or taking your medications? No Your discharge instructions/After visit Summary (AVS) are important in guiding you through the recovery process. Is there anything I might help you understand? No, she received and understands instructions. Do you have all the necessary equipment and supplies at home? Yes Medical records from recent hospitalization: Placed for provider to review PROGRESS Observed: 03/29/2018 Status: COMPLETED Source: [place] 2:48 PM [facility] REPOSITORY HNO ID: [id number] Author: Himanshu Green) Sybil Service: (none) Author Type: Registered Nurse Type: Progress Notes Filed: 04/03/2018 5:08 PM Note Text: Initial contact with patient post discharge, spoke to patient. Unable to reach managed care analyst at time of call. Patient identified by name and . SUMMARY: -Pt discharged from [facility] on 03/28/18, was admitted on 03/26/18. -Follow up appointment on 04/11/18. -Medication review done yes- please see changes on Imdur, Amlodipine, warfarin and Atenolol. -Admitted for: Chest pain, went to [facility] via squad. A-Fib was confirmed, stress test negative. CONCERNS: 1) Asking when Next INR should be checked? 2) Asking for order for shower bench[facility] NEW MEDICATIONS: No new medications, Amolodipine increased from 5 mg to 10 mg, Atenolol decreased from 100 mg to 50 mg, Imdur increased from 90 mg to 120 mg and warfarin changed to 3 mg Tues/Thurs and 6 mg all other days. MEDS HELD/DISCONTINUED: Holding Metformin for two days, related to Nuclear Stress Test. BRIEF HOSPITAL COURSE: 03/26: Chest pain and short of breath, went to [facility] via squad. A- Fib was confirmed, stress test negative. Cardiac medications adjusted. Patient states this is the best I have felt in months. 1) Asking when Next INR should be checked? 2) Asking for order for shower bench, [facility] Please review and advise. Anastasiya Swift RN 12 LEAD ELECTROCARDIOGRAM Observed: 03/29/2018 Status: F Source: [place] 2:11 PM [facility] REPOSITORY [facility] Cardiovascular Services [address] [place] [address] 12 Lead EKG 03/26/18 1645 MR#: [id number] Acct: [id number] Name: FLAVIA CASE Rep #: [id number] : 1950 67 From: Nieves Lei MD Attending Dr: Fatou ONEAL,Alex Status: DIS IN Ordering Dr: Phillip Alexandra MD Date: 03/26/18 Location: [facility] Sex: F C Admitted: 03/26/18 Test Reason : CP ADMIT Blood Pressure : / mmHG Vent. Rate : 061 BPM Atrial Rate : 267 BPM P-R Int : 000 ms QRS Dur : 106 ms QT Int : 446 ms P-R-T Axes : 268 079 056 degrees QTc Int : 448 ms Atrial flutter with variable A-V block Abnormal ECG Confirmed by JENNIFFER ONEAL, NIEVES ([id number]), graphic editor SOUMYA BARTH ([id number]) on 03/29/2018 2:10:55 PM Referred By: Ana Bradford Confirmed By:NIEVES LEI MD 03/29/18 1411 Date Nieves Lei MD CC: Collin Gamez MD; Alex Lainez MD; Phillip Alexandra MD; Ana Bradford MD Signed 12 LEAD ELECTROCARDIOGRAM Observed: 03/29/2018 Status: F Source: [place] 1:50 PM [facility] REPOSITORY [facility] Cardiovascular Services [address] [place] [address] 12 Lead EKG 03/27/18 0506 MR#: [id number] Acct: [id number] Name: CASEFLAVIA Rep #: [id number] : 1950 67 From: Nieves Lei MD Attending Dr: Alex Lainez MD Status: DIS IN Ordering Dr: Ferny Marie MD Date: 03/27/18 Location: [facility] Sex: F C Admitted: 03/26/18 Test Reason : AM EKG Blood Pressure : / mmHG Vent. Rate : 070 BPM Atrial Rate : 280 BPM P-R Int : 000 ms QRS Dur : 110 ms QT Int : 436 ms P-R-T Axes : 075 082 061 degrees QTc Int : 470 ms Atrial flutter with 4:1 A-V conduction Nonspecific ST abnormality Abnormal ECG Confirmed by NIEVES LEI MD ([id number]), graphic editor SOUMYA BARTH ([id number]) on 03/29/2018 1:50:49 PM Referred By: Ana Bradford Confirmed By:NIEVES LEI MD 03/29/18 1350 Date Nieves Lei MD CC: Collin Gamez MD; Ferny Marie MD; Alex Lainez MD; Ana Bradford MD Signed 12 LEAD ELECTROCARDIOGRAM Observed: 03/29/2018 Status: F Source: [place] 1:31 PM [facility] REPOSITORY [facility] Cardiovascular Services [address] [place] [address] 12 Lead EKG 03/26/18 1504 MR#: [id number] Acct: [id number] Name: FLAVIA CASE Rep #: [id number] : 1950 67 From: Nieves Lei MD Attending Dr: Alex Lainez MD Status: DIS IN Ordering Dr: Phillip Alexandra MD Date: 03/26/18 Location: U Sex: F C Admitted: 03/26/18 Test Reason : CP Blood Pressure : / mmHG Vent. Rate : 125 BPM Atrial Rate : 133 BPM P-R Int : 000 ms QRS Dur : 102 ms QT Int : 332 ms P-R-T Axes : 000 088 -17 degrees QTc Int : 479 ms Atrial fibrillation / FLUTTER with rapid ventricular response Incomplete right bundle branch block Nonspecific ST abnormality Abnormal ECG Confirmed by NIEVES LEI MD ([id number]), graphic editor SOUMYA BARTH ([id number]) on 03/29/2018 1:30:56 PM Referred By: Ana Bradford Confirmed By:NIEVES LEI MD 03/29/18 133 Date Nieves Lei MD CC: Collin Gamez MD; Alex Lainez MD; Phillip Alexandra MD; Ana Bradford MD Signed 12 LEAD ELECTROCARDIOGRAM Observed: 03/29/2018 Status: F Source: [place] 1:30 PM [facility] REPOSITORY [facility] Cardiovascular Services [address] [address] 12 Lead EKG 03/26/18 1530 MR#: [id number] Acct: [id number] Name: FLAVIA CASE Rep #: [id number] : 1950 67 From: Nieves Lei MD Attending Dr: Alex Lainez MD Status: DIS IN Ordering Dr: Ana Bradford MD Date: 03/26/18 Location: [facility] Sex: F C Admitted: 03/26/18 Test Reason : REPEAT EKG Blood Pressure : / mmHG Vent. Rate : 063 BPM Atrial Rate : 267 BPM P-R Int : 000 ms QRS Dur : 102 ms QT Int : 430 ms P-R-T Axes : 000 072 051 degrees QTc Int : 440 ms Atrial flutter with variable A-V block Nonspecific ST abnormality Abnormal ECG Confirmed by NIEVES LEI MD ([id number]), graphic editor SOUMYA BARTH ([id number]) on 03/29/2018 1:30:11 PM Referred By: Ana Bradford Confirmed By:NIEVES LEI MD 03/29/18 1330 Date Nieves Lei MD CC: Collin Gamez MD; Alex Lainez MD; Ana Bradford MD Signed PROGRESS Observed: 03/29/2018 Status: COMPLETED Source: [place] 9:17 AM [facility] REPOSITORY HNO ID: [id number] Author: Radha Bartholomew) WAQAS Gibson Service: (none) Author Type: LICENSED NURSE Type: Progress Notes Filed: 04/03/2018 5:08 PM Note Text: Attempted to call pt for tcm. Left message on machine to return call. [id number] Observed: 03/29/2018 Status: COMPLETED Source: [place] 12:00 AM [facility] REPOSITORY Patient Outreach ([facility]) FLAVIA CASE ([id number]) 1950 F Date Time Provider Department 03/29/18 [facility] GAMEZ) [facility] During your visit today, we recorded the following information about you: Radha Gibson LPN, WAQAS 04/03/2018 5:08 PM Signed Attempted to call pt for tcm. Left message on machine to return call. Himanshu Aquino RN 04/03/2018 5:08 PM Signed Initial contact with patient post discharge, spoke to patient. Unable to reach managed care analyst at time of call. Patient identified by name and . SUMMARY: -Pt discharged from [facility] on 03/28/18, was admitted on 03/26/18. -Follow up appointment on 04/11/18. -Medication review done yes- please see changes on Imdur, Amlodipine, warfarin and Atenolol. -Admitted for: Chest pain, went to [facility] via squad. A-Fib was confirmed, stress test negative. CONCERNS: 1) Asking when Next INR should be checked? 2) Asking for order for shower bench[facility] NEW MEDICATIONS: No new medications, Amolodipine increased from 5 mg to 10 mg, Atenolol decreased from 100 mg to 50 mg, Imdur increased from 90 mg to 120 mg and warfarin changed to 3 mg Tues/Thurs and 6 mg all other days. MEDS HELD/DISCONTINUED: Holding Metformin for two days, related to Nuclear Stress Test. BRIEF HOSPITAL COURSE: 03/26: Chest pain and short of breath, went to [facility] via squad. A- Fib was confirmed, stress test negative. Cardiac medications adjusted. Patient states this is the best I have felt in months. 1) Asking when Next INR should be checked? 2) Asking for order for shower bench, faxed to [facility]. Please review and advise. KOKO Santamaria, VETERINARY ASSISTANT TECHNICIAN, VETERINARY ASSISTANT TECHNICIAN 04/03/2018 5:08 PM Signed TRANSITION CARE MANAGEMENT (TCM) INITIAL CONTACT Financial Institution Branch Manager Outreach Provider Action/FYI: Pt just wanting doctor to know when Dr. oCrado retires August 22 she will be going to [place] [facility] . Then any surgeries she wants to go to [facility] Initial contact with patient post discharge, spoke to patient. Patient identified by name and . TRANSITION CARE MANAGEMENT INITIAL OUTREACH DOCUMENTATION: Date of Outreach: 03/29/2018 03/29/2018 Outreach Attempt 1: Contact Not Made - Date of Discharge 03/28/2018 03/28/2018 Some recent data might be hidden SUMMARY: -Pt discharged from [facility] on 03/28/18. -Admitted for: chest pain ,a fib Do you have a hospital follow up appointment with your PCP? Appointment on 04/11/[address] GAMEZ. Yes. Remind patient of appointment date, time, and location. If not within 14 calendar days of discharge - please reschedule accordingly. MEDICATIONS: Many patients have questions or concerns about their medications once they are home. Were you prescribed any new medications? No Were you told to hold any medications? Yes , Glucophage for 48 hours she will continue taking on Monday the . Were any of your medications discontinued? No Do you have any questions about getting or taking your medications? No Your discharge instructions/After visit Summary (AVS) are important in guiding you through the recovery process. Is there anything I might help you understand? No, she received and understands instructions. Do you have all the necessary equipment and supplies at home? Yes Medical records from recent hospitalization: Placed for provider to review Himanshu Aquino RN 03/29/2018 3:35 PM Signed PRIMARY CARE COORDINATION QUICK NOTE Provider Action/FYI Noted TCM on 04/11 PCC will f/u next week Patient identified by name and date . Himanshu Aquino RN March 29, 2018 3:35 PM Keri Gamez MD 03/29/2018 3:46 PM Signed Reviewed. Thanks. Himanshu Aquino RN 03/29/2018 4:09 PM Addendum PRIMARY CARE COORDINATION QUICK NOTE Provider Action/FYI When do you want pt to get next INR INR on 03/28 at [facility] 2.9 Warfarin 3 mg Tues/Thurs and 6 mg all other days. ORDER FOR SHOWER CHAIR PENDED FOR YOUR APPROVAL PLEASE FILE MEDICATION UPDATES Patient identified by name and date . Himanshu Aquino RN March 29, 2018 4:07 PM Keri Gamez MD 03/29/2018 4:11 PM Signed INR therapeutic. Continue current coumadin dosage and follow up in 2 weeks. meds updated Himanshu Aquino RN 04/03/2018 2:53 PM Signed TRANSITION CARE MANAGEMENT (TCM) FOLLOW-UP NOTE Provider Action/FYI No SOB, Chest Pain or palpitations since D/C States she feels better than she has felt in a long time Received letter recommending sleep study because it can cause A fib Appt w/ PCP on 04/11 Appt w/ Dr. Corado on 04/18 Would like to establish with new network coordinator in [place] instead of driving to [place] Continuing taking warfarin 6 mg daily except 3 mg on and Th Appt made for coumadin clinic on 04/11 Shower chair script faxed to [facility] Patient identified by name and date of : YES Spoke to patient Summary: Patient states she received a letter from [facility] that A fib can be caused by sleep apnea and they recommend pt have a sleep study. They didn't order the sleep study. Informed PCC will discuss with PCP and he will discuss with patient at 04/11 appt, verbalized agreement. Concerns: TC to patient, left message to please call PCC back regarding where shower chair script is to be faxed and to discuss coumadin and INR. Himanshu Aquino RN April 03, 2018 9:31 AM TC to patient, left message to please call PCC back Himanshu Aquino RN April 02, 2018 2:54 PM [employer] plan for next outreach: Will follow up one week Signature Himanshu Aquino RN April 03, 2018 Keri Gamez MD 04/03/2018 2:57 PM Signed Reviewed. thanks Allergies As of Date: 03/29/2018 Noted Allergy Reaction ADVAIR DISKUS (FLUTICASONE-SALMET*05/16/2011 14 - Other: See Comments Comments: CHEST PAIN ASA (SALICYLATES) 05/10/2005 16 - Unknown Comments: patient taking coumadin - on low dose ASA for valve dysfunction CEPHALEXIN 02/21/2008 Comments: Stomach pains-pt. ended up in hospital EKG PADS [Other] 05/10/2005 Comments: adhesive LISINOPRIL 07/03/2014 3 - Cough NEXIUM (ESOMEPRAZOLE MAGNESIUM) 01/26/2016 14 - Other: See Comments Comments: Ineffective OMEPRAZOLE 01/26/2016 14 - Other: See Comments Comments: Ineffective TUDORZA PRESSAIR (ACLIDINIUM BROM*01/26/2016 8 - GI Upset VENTOLIN (ALBUTEROL SULFATE) 10/24/2017 14 - Other: See Comments Comments: Severe shaking, palpitations VENTOLIN (ALBUTEROL) 01/26/2016 14 - Other: See Comments Comments: Ventolin MDI does not work, Pro Air works best Date Reviewed: 01/24/2018 Reviewed by: Mary Weber - Fully Assessed Reason for Visit: [facility] Follow Up [7275] Primary Visit Diagnosis:Pulmonary emphysema, unspecified emphysema type (HCC) [J43.9] Other Visit Diagnoses:Chronic obstructive pulmonary disease, unspecified COPD type (HCC) [J44.9] Diastolic congestive heart failure, unspecified HF chronicity (HCC) [I50.30] Order(s):isosorbide mononitrate ER (IMDUR) 30 mg 24 hr tabletTake 4 tablets by mouth once daily.Disp: 270 tabletRfl: 3 atenolol (TENORMIN) 100 mg tabletTake 0.5 tablets by mouth once daily.Disp: 90 tabletRfl: 1 warfarin (COUMADIN) 6 mg tablet3 mg Tues/thurs and 6 mg all other days or as directedDisp: 90 tabletRfl: 1 amLODIPine (NORVASC) 5 mg tabletTake 2 tablets by mouth once daily.Disp: 30 tabletRfl: 5 SHOWER CHAIR [[id number]] Order #: [id number] Prescriptions as of 03/29/2018 Sig: COMPOUNDED PRESCRIPTION HOME BP CUFF, DX: HTN LABILE * ALBUTEROL SULFATE CONCENTRATE* Inhale 0.5 mL as instructed o* ALBUTEROL SULFATE HFA 90 MCG/* Inhale 2 Puffs as instructed * AMLODIPINE 5 MG TABLET Take 2 tablets by mouth once * ASPIRIN 81 MG TABLET,DELAYED * Take 1 tablet by mouth once d* ATENOLOL 100 MG TABLET Take 0.5 tablets by mouth onc* ATORVASTATIN 20 MG TABLET take 1 tablet by mouth once d* COMPOUNDED PRESCRIPTION NEBULIZER SUPPLIES, MEDICATIO* COMPOUNDED PRESCRIPTION Home scale for daily weight c* DICLOFENAC 1 % TOPICAL GEL Apply 2 g to affected area tw* FERROUS SULFATE 325 MG (65 MG* take 1 tablet by mouth twice * FREESTYLE LANCETS 28 GAUGE TEST twice a day FREESTYLE LITE STRIPS TEST twice a day FUROSEMIDE 20 MG TABLET take 1 tablet by mouth once d* GLIPIZIDE ER 10 MG TABLET, EX* Take 1 tablet by mouth once d* ISOSORBIDE MONONITRATE ER 30 * Take 3 tablets by mouth once * ISOSORBIDE MONONITRATE ER 30 * Take 4 tablets by mouth once * LANSOPRAZOLE 30 MG CAPSULE,DE* take 1 capsule by mouth every* LEG BRACE 1 Each continuous. LEG BRACE 1 Each continuous. DX: S89.92* LORATADINE 10 MG TABLET take 1 tablet by mouth once d* LOSARTAN 100 MG TABLET take 1 tablet by mouth once d* MECLIZINE 12.5 MG TABLET Take 1 tablet by mouth three * METFORMIN ER 500 MG TABLET,EX* take 2 tablets by mouth twice* MUPIROCIN 2 % TOPICAL OINTMENT Apply 1 application to affect* NITROGLYCERIN 0.4 MG SUBLINGU* Dissolve 1 tablet under the t* NYSTATIN 100,000 UNIT/GRAM TO* Apply 1 application to affect* OXYBUTYNIN CHLORIDE ER 10 MG * take 1 tablet by mouth once d* POLYETHYLENE GLYCOL 3350 17 G* Take 17 g by mouth once daily* SERTRALINE 100 MG TABLET take 1 tablet by mouth once d* TIZANIDINE 4 MG TABLET take 1 tablet by mouth once d* TRAZODONE 50 MG TABLET Take 1 tablet by mouth daily * WARFARIN 1 MG TABLET Take 1 tablet by mouth once d* WARFARIN 6 MG TABLET Take 7 mg Daily WARFARIN 6 MG TABLET 3 mg Tues/thurs and 6 mg all * Problem List As Of Date 03/29/2018 Noted Resolved AORTOCORONARY BYPASS STATUS [Z95.1] More... OVERWEIGHT [E66.9] 05/08/2015 ASHD (arteriosclerotic heart disease) [I25.10] INVALID FOR* More... DIABETES MELLITUS TYPE II-UNCOMPL [E11.9] INVALID FOR*02/12/2014 More... HYPERLIPIDEMIA NEC/NOS [E78.5] INVALID FOR*07/24/2015 More... Hematuria [599.7] INVALID FOR*07/24/2015 More... History of mechanical aortic valve replacement *INVALID FOR* More... Abdominal pain, unspecified site [R10.9] INVALID FOR*05/08/2015 Acute gastritis without mention of hemorrhage [*INVALID FOR*01/26/2016 Esophageal reflux [K21.9] INVALID FOR* More... Headache(784.0) [R51] INVALID FOR*01/26/2016 Bronchitis Recurrent [J40] INVALID FOR*03/21/2017 Hallux valgus (acquired) [M20.10] INVALID FOR*07/24/2015 Pain in limb [M79.609] INVALID FOR*01/26/2016 Goiter [E04.9] INVALID FOR* S/P AVR [Z95.2] INVALID FOR*01/26/2016 Multinodular thyroid [E04.2] INVALID FOR* Emphysema of lung (HCC) [J43.9] More... Hyperlipemia [E78.5] INVALID FOR* DM type 2 (diabetes mellitus, type 2) (HCC) [E1*INVALID FOR*05/08/2015 Hematuria [R31.9] INVALID FOR*10/23/2015 Smoking [F17.200] INVALID FOR*10/23/2015 Chronic anticoagulation [Z79.01] INVALID FOR* OAB (overactive bladder) [N32.81] INVALID FOR* More... Frequency of urination [R35.0] INVALID FOR*01/26/2016 Hypertension goal BP (blood pressure) < 140/90 *INVALID FOR* More... Diabetes mellitus type 2, uncontrolled, without*INVALID FOR*03/21/2017 More... Nicole rash of groin [B37.89] INVALID FOR* More... Stress at home [F43.9] INVALID FOR* Insomnia [G47.00] INVALID FOR* Financial difficulties [Z59.8] INVALID FOR* Obesity, Class III, BMI >= 40 (morbid obesity) *INVALID FOR* Hemoptysis [R04.2] INVALID FOR* More... 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 Eczema [L30.9] Diabetes mellitus (HCC) [E11.9] COPD (chronic obstructive pulmonary disease) (H* Diastolic CHF (HCC) [I50.30] Prescriptions ordered this encounter Disp Refills Start End ISOSORBIDE MONONITRATE ER 30 MG TABL* 270 * 3 03/29/2018 Class: Med Update Route: ORAL Sig: Take 4 tablets by mouth once daily. ATENOLOL 100 MG TABLET 90 t* 1 03/29/2018 Class: Med Update Route: ORAL Sig: Take 0.5 tablets by mouth once daily. WARFARIN 6 MG TABLET 90 t* 1 03/29/2018 Class: Med Update Si mg Tues/thurs and 6 mg all other days or as directed AMLODIPINE 5 MG TABLET 30 t* 5 03/29/2018 Class: Med Update Route: ORAL Sig: Take 2 tablets by mouth once daily. Medications Discontinued During This Encounter isosorbide mononitrate ER (IMDUR) 30* 270 * 3 03/16/2018 03/29/2018 Route: ORAL Sig: Take 3 tablets by mouth once daily. Disc: Reason for discontinue is not on file. atenolol (TENORMIN) 100 mg tablet 90 t* 1 03/14/2018 03/29/2018 Route: ORAL Sig: take 1 tablet by mouth once daily Disc: Reason for discontinue is not on file. warfarin (COUMADIN) 6 mg tablet 90 t* 1 08/28/2017 03/29/2018 Cmt: Take with 1 mg tablet to make 7 mg dose Sig: TAKE 7 MG ON Monday AND MONDAY, TAKE 1 TABLET (6 MG) ON ALL OTHER DAYS, TAKE 6 MG AND 1 MG TAB TABLET TO MAKE 7 MG Disc: Reason for discontinue is not on file. amLODIPine (NORVASC) 5 mg tablet 30 t* 5 11/07/2017 03/29/2018 Route: ORAL Sig: Take 1 tablet by mouth once daily. Disc: Reason for discontinue is not on file. Encounter Status:Closed by HIMANSHU AQUINO on 04/03/18 BEDSIDE GLUCOSE Collected: 03/28/2018 Status: F Source: [place] 4:17 PM [facility] REPOSITORY TYPE CODE TESTS RESULT OUT OF REFERENCE UNITS RANGE LAB L501.080 70-110 mg/dL High BEDSIDE GLU 247 Result Comment: MANAGEMENT OF PATIENT CARE PER NURSING PROTOCOL Performed By: #### L501.080 #### [facility] Point of Care [address] [facility] [place] [place] [address] DISCHARGE SUMMARY Observed: 03/28/2018 Status: F Source: [place] 2:36 PM [facility] REPOSITORY [facility] Medical Records Department [address] [place] [address] Discharge Summary 03/28/18 1359 MR#: [id number] Acct: [id number] Name: FLAVIA CASE Rep #: [id number] : 1950 67 From: Efrain MAO PCP: Collin Gamez MD Status: ADM IN Y Location: [place] [id number] <Efrain Blanco - Last Filed: 03/28/18 13:59> Discharge Date and Diagnosis Date of Admission: 03/26/18 Date of Discharge: 03/28/18 - Primary Discharge Diagnosis New onset Atrial fibrillation with RVR Chest pain with Indeterminate troponins Presence of mechanical aortic valve CAD s/p 3xCABG HTN T2DM Hx SCLC Goiter Morbid obesity - Secondary Discharge Diagnosis Chronic Problems elevated BMI (Chronic) CAD (coronary artery disease) (Chronic) Hx of CABG (Chronic) Type 2 diabetes mellitus (Chronic) Hypertension (Chronic) Chronic obstructive lung disease (Chronic) Hospital Course and Treatment Imaging Results: 03/28/18 05:55 Nuclear Stress Test - Chemical [NM] AM (NON MEDS) Conclusion: Pharmacologic myocardial perfusion stress test with no evidence of ischemia. Small anterior lateral infarct cannot be completely excluded. Preserved ejection fraction. RAD/Chest 1 View (Portable) IMPRESSION: No acute abnormality is seen. Echo: Interpretation Summary Normal LV size. Moderate concentric left ventricular hypertrophy. Left ventricular systolic function is normal. The estimated ejection fraction is 60 %. Stage 3 diastolic dysfunction. Mild (1+) eccentric mitral valve insufficiency. Moderate aortic stenosis. Mean aortic valve gradient 37 mmHg. According to echo from [facility] the aortic valve gradients are similar Consults: Cardiology Operations: None Procedures: 2-D Echocardiogram, Stress test Summary of Care Provided: Hospital Course: The patient is a 67 year old F with pmhx of mechanical aortic valve, on coumadin, CAD with prior 3x CABG, HTN, HLD, DMt2, goiter, SCLC, who presented to the ER with c/o chest discomfort and palpitations. She was found to be in new onset Afib with RVR. She was admitted to the PCU and placed on tele. She was given cardizem for her dysrhythmia and she converted. When she converted she did have a >5 second pause. Cardiology was consulted. She was on warfarin already which was therapeutic. Echo was checked, with findings as above. Troponins were cycled and had a small rise. BNP was mildly elevated, TSH was normal. Stress test was obtained which was negative for ischemia. She was placed on atenolol, increased imdur, increased norvasc. She was discharged home in stable condition. She desired to follow up with her own network coordinator, Dr. Garcia, and will do so in 3-4 weeks. She will need to see her PCP in 1-2 weeks. This patient was seen by Efrain Blanco PA-C under the supervision of Dr. Lainez. [] - Physical Exam General: Alert, Oriented x3, Cooperative HEENT: Atraumatic, PERRLA, EOMI, Normocephalic Neck: Supple, No JVD, Negative Carotid Bruits Lungs: Clear to auscultation, Normal air movement Cardiovascular: Regular rate, No murmurs Abdomen: Bowel Sounds Present, Soft, Non Tender Extremities: No edema, Capillary Refill Less than 3 Seconds Skin: No rashes, No breakdown Musculoskeletal: No Tenderness to Palpation of Joints or Extremities Neurological: Cranial nerves II-XII grossly intact Psych/Mental Status: Normal Affect, Appropriate, Alert and oriented to time, place, person, mood and affect Vital Signs Temp Pulse Resp BP Pulse Ox 97.8 F 58 L 14 138/53 H 94 03/28/18 10:15 03/28/18 11:00 03/28/18 10:15 03/28/18 10:15 03/28/18 10:15 Oxygen Flow Rate (L/min) 2 Oxygen Delivery Method Room Air Weight: 231 lb 0.711 oz Body Mass Index (BMI) 40.9 Intake and Output for Last 24 Hours Intake Total 650 / 650 1200 / 1200 555 / 555 Output Total 1250 / 1250 700 / 700 Balance 650 / 650 -50 / -50 -145 / -145 Laboratory Tests Past 24 Hrs WBC 6.4 RBC 4.51 Hgb 12.0 Hct 37.4 MCV 82.9 POC Glucose POC Glucose 185 H 218 H 217 H Discharge Diet: Low fat/ Low Cholesterol, 1800 Calorie Control Diet, 2000 mg Sodium Diet Discharge Activity: Return to Normal Activity Home Medications: Medications to take at Discharge Aspirin [Aspirin EC] 81 mg PO DAILY 10/23/16 Furosemide [Lasix] 20 mg PO DAILY 10/23/16 Lansoprazole [Prevacid] 30 mg PO BID 10/23/16 Loratadine 10 mg PO DAILY 10/23/16 Losartan Potassium [Cozaar] 100 mg PO QHS 10/23/16 Metformin(XR) [Glucophage Xr] 1,000 mg PO BID 10/23/16 Polyethylene Glycol 3350 17 gm PO DAILY PRN 10/23/16 Warfarin [Coumadin] 6 mg PO SUMOWEFRSA 10/23/16 glipiZIDE [Glucotrol] 10 mg PO DAILY@0730 10/23/16 Albuterol Sulfate [Ventolin Hfa] 2 puff INHALATION Q4H PRN 03/26/18 Atorvastatin Calcium [Lipitor] 20 mg PO QHS 03/26/18 Ferrous Sulfate 325 mg PO BIDCM 03/26/18 Meclizine HCl [Antivert] 25 mg PO TID PRN PRN 03/26/18 Mupirocin [Bactroban] 1 applicatio NASAL TID PRN 03/26/18 Nitroglycerin [Nitrostat] 0.4 mg SUBLINGUAL Q5M PRN 03/26/18 Nystatin 1 applicatio TP BID PRN 03/26/18 Oxybutynin Chloride [Ditropan Xl] 10 mg PO DAILY 03/26/18 Tizanidine HCl 4 mg PO QHS PRN 03/26/18 Warfarin Sodium 3 mg PO TUTH 03/26/18 Amlodipine [Norvasc] 10 mg PO DAILY #30 tablet 03/28/18 Atenolol [Tenormin (beta yi)] 50 mg PO DAILY #30 tablet 03/28/18 Isosorbide Mononitrate [Imdur] 120 mg PO DAILY #30 tablet 03/28/18 Following Prescrptions Were Given to Patient: Amlodipine [Norvasc] 10 mg PO DAILY #30 tablet Atenolol [Tenormin (beta yi)] 50 mg PO DAILY #30 tablet Isosorbide Mononitrate [Imdur] 120 mg PO DAILY #30 tablet Primary Care Physician: Collin Gamez MD [Primary Care Provider] - Please follow up with your Primary Care Physician in: 1-2 weeks Please Follow Up With: Wade Corado MD When: 3-4 weeks Please Follow Up With: Collin Gamez MD Disposition: Home Minutes spent on discharge:: 35 Patient Condition:: Stable Medical Necessity - Tobacco Use Smoking Status: Former smoker Tobacco Use: Cigarettes Meaningful Use Info Meaningful Use Diagnoses (Choose all that apply): None applicable <Alex Lainez - Last Filed: 03/28/18 14:36> Discharge Date and Diagnosis - Secondary Discharge Diagnosis Chronic Problems elevated BMI (Chronic) CAD (coronary artery disease) (Chronic) Hx of CABG (Chronic) Type 2 diabetes mellitus (Chronic) Hypertension (Chronic) Chronic obstructive lung disease (Chronic) Hospital Course and Treatment Imaging Results: 03/28/18 05:55 Nuclear Stress Test - Chemical [NM] AM (NON MEDS) Summary of Care Provided: This patient was seen in conjunction with Efrain Blanco PA-C . I have independently interviewed and examined the patient and reviewed pertinent historical, laboratory, and other data. Please refer to Efrain Blanco PA-C note for details of this patient's presentation, findings, and recommendations. I have reviewed Efrain Blanco PA-C note and concur with documented findings. In brief, patient is a 67-year-old lady with multiple comorbidities including CAD status post CABG, prosthetic(mechanical) valve on systemic anticoagulation with Coumadin, hypertension who presented with palpitations. Patient was found to be in A. fib with RVR started on Cardizem drip admitted to a monitored bed for further management Assessment: 1. A. fib with RVR converted on Cardizem drip 2. Chest pain 3. Prosthetic titanium aortic valve on systemic anticoagulation with a therapeutic INR 4. Diabetes mellitus type 2 5. Essential hypertension 6. COPD stable Hospital course: As elicited above by Efrain Blanco PA-C - Physical Exam Vital Signs Temp Pulse Resp BP Pulse Ox 97.8 F 58 L 14 138/53 H 94 03/28/18 10:15 03/28/18 11:00 03/28/18 10:15 03/28/18 10:15 03/28/18 10:15 Oxygen Flow Rate (L/min) 2 Oxygen Delivery Method Room Air Weight: 104.8 kg Body Mass Index (BMI) 40.9 Intake and Output for Last 24 Hours Intake Total 650 / 650 1200 / 1200 555 / 555 Output Total 1250 / 1250 700 / 700 Balance 650 / 650 -50 / -50 -145 / -145 Laboratory Tests Past 24 Hrs WBC 6.4 RBC 4.51 Hgb 12.0 Hct 37.4 MCV 82.9 POC Glucose POC Glucose 185 H 218 H 217 H Code Visit Inpatient E AND M: [id number] Disch Hosp 03/28/18 1408 <Electronically signed by Efrain MAO> Date Efrain MAO 03/28/18 1436<Electronically signed by Alex Lainez MD> Cosigner Signature (if applicable): Date Alex Lainez MD CC: MAYCO Blanco; Collin Gamez MD; Alex Lainez MD Signed DISCHARGE INSTRUCTION Observed: 03/28/2018 Status: F Source: [place] 10:23 AM [facility] REPOSITORY [facility] Medical Records Department [facility] [place] [address] Instructions for Home/Discharge Instructions 03/28/18 1021 MR#: [id number] Acct: [id number] Name: FLAVIA CASE Rep #: [id number] : 1950 67 From: Efrain MAO PCP: Collin Gamez MD Status: ADM IN You will use the following diet at home:: Calorie/Carbohydrate Controlled (specify 1200, 1400, etc) - 1800 obi / day, Cardiac Your food should be the consistency of: Regular Your liquids should be the consistency of: Regular/Thin Discharge Activity: Return to Normal Activity Allergies/Adverse Reactions: Allergies adhesive Allergy (Verified 03/26/18 15:02) Rash fluticasone propionate [From Advair Diskus] Allergy (Verified 03/26/18 17:00) chest pain gabapentin [From Neurontin] Allergy (Verified 03/26/18 17:00) Swelling of feet and legs salmeterol xinafoate [From Advair Diskus] Allergy (Verified 03/26/18 17:00) chest pains albuterol [From Ventolin HFA] Adverse Reaction (Verified 03/26/18 17:00) jittery TOO JITTERY cephalexin monohydrate [From Keflex] Adverse Reaction (Verified 03/26/18 17:00) abdominal cramping pregabalin Adverse Reaction (Verified 03/26/18 17:00) makes me slow to respond Medications to take at Discharge Aspirin [Aspirin EC] 81 mg PO DAILY 10/23/16 Furosemide [Lasix] 20 mg PO DAILY 10/23/16 Lansoprazole [Prevacid] 30 mg PO BID 10/23/16 Loratadine 10 mg PO DAILY 10/23/16 Losartan Potassium [Cozaar] 100 mg PO QHS 10/23/16 Metformin(XR) [Glucophage Xr] 1,000 mg PO BID 10/23/16 Polyethylene Glycol 3350 17 gm PO DAILY PRN 10/23/16 Warfarin [Coumadin] 6 mg PO SUMOWEFRSA 10/23/16 glipiZIDE [Glucotrol] 10 mg PO DAILY@0730 10/23/16 Albuterol Sulfate [Ventolin Hfa] 2 puff INHALATION Q4H PRN 03/26/18 Atorvastatin Calcium [Lipitor] 20 mg PO QHS 03/26/18 Ferrous Sulfate 325 mg PO BIDCM 03/26/18 Meclizine HCl [Antivert] 25 mg PO TID PRN PRN 03/26/18 Mupirocin [Bactroban] 1 applicatio NASAL TID PRN 03/26/18 Nitroglycerin [Nitrostat] 0.4 mg SUBLINGUAL Q5M PRN 03/26/18 Nystatin 1 applicatio TP BID PRN 03/26/18 Oxybutynin Chloride [Ditropan Xl] 10 mg PO DAILY 03/26/18 Tizanidine HCl 4 mg PO QHS PRN 03/26/18 Warfarin Sodium 3 mg PO TUTH 03/26/18 Amlodipine [Norvasc] 10 mg PO DAILY #30 tablet 03/28/18 Atenolol [Tenormin (beta yi)] 50 mg PO DAILY #30 tablet 03/28/18 Isosorbide Mononitrate [Imdur] 120 mg PO DAILY #30 tablet 03/28/18 The following prescriptions were given: Amlodipine [Norvasc] 10 mg PO DAILY #30 tablet Atenolol [Tenormin (beta yi)] 50 mg PO DAILY #30 tablet Isosorbide Mononitrate [Imdur] 120 mg PO DAILY #30 tablet Primary Care Physician: Collin Gamez MD [Primary Care Provider] - Please follow up with your Primary Care Physician in: 1-2 weeks Test Results: Test results from this visit will be discussed in further detail at your follow-up appointment, if applicable. Please Follow Up With: Wade Corado MD When: 3-4 weeks Proposed Discharge Date: 03/28/18 03/28/18 1023 <Electronically signed by Efrain MAO> Date Efrain MAO CC: Collin Gamez MD; Ferny Marie MD STRESS REPORT Observed: 03/28/2018 Status: F Source: [place] 10:07 AM [facility] Cardiovascular Services [address] [place] [id number] MR#: [id number] Acct: [id number] Name: FLAVIA CASE Rep #: [id number] : 1950 67 From: Ferny Marie MD Primary Care: Collin Gamez MD Status: ADM IN Ordering Dr: Sex: F C Stress Test Report Pharmacologic myocardial perfusion stress test. 67-year-old lady with a history of abnormal cardiac enzymes. Stress protocol: Resting EKG demonstrates normal sinus rhythm with a rate of 69/min normal intervals are noted resting blood pressure is 148/62 mmHg. 0.4 mg of regadenoson was infused per usual protocol followed by rapid intravenous saline flush injection continuous EKG monitoring was performed. The patient maintained sinus rhythm throughout the recording. The maximum heart rate attained was 92 bpm which was 60% of maximum predicted heart rate the maximum workload was 1 metabolic equivalent. At rest there were nonspecific ST-T wave changes noted with normally the criteria for ischemia at peak infusion nonspecific ST-T wave changes were noted. Resting blood pressure is 148/62 with a final blood pressure 144/58. Myocardial perfusion protocol. 14.4 mCi of technetium 99m sestamibi was injected at rest. 0.4 mg of regadenoson was infused per usual protocol peak infusion 44.2 mCi of technetium 99m sestamibi was injected stress images were obtained stress and rest images were reconstructed and compared in the short axis vertical long horizontal long axis. Gated images were also obtained next Perfusion SPECT analysis: Review of the stress images demonstrate normal cardiac silhouette size. There is mild reduction of perfusion noted involving the anterolateral wall on the stress and resting images to a similar extent. The septum and inferior wall and inferolateral wall appear to be well perfused. No areas of reversibility are noted suggest ischemia. A small anterolateral infarct cannot be completely excluded. Gated SPECT analysis: The gated ejection fraction is noted to be 64%. Conclusion: Pharmacologic myocardial perfusion stress test with no evidence of ischemia. Small anterior lateral infarct cannot be completely excluded. Preserved ejection fraction. 03/28/18 1007 <Electronically signed by Ferny Marie MD> Date Ferny Marie MD CC: Collin Gamez MD; Alex Lainez MD; Ana Bradford MD Date Dictated: 03/28/18 1004 Date Transcribed: 03/28/18 100 Tax Associate Attorney: [place] Signed BEDSIDE GLUCOSE Collected: 03/28/2018 Status: F Source: [place] 5:28 AM [facility] REPOSITORY TYPE CODE TESTS RESULT OUT OF REFERENCE UNITS RANGE LAB L501.080 70-110 mg/dL High BEDSIDE GLU 185 Result Comment: MANAGEMENT OF PATIENT CARE PER NURSING PROTOCOL Performed By: #### L501.080 #### [facility] Point of Care [address] [place] [address] BASIC METABOLIC Collected: 03/28/2018 Status: F Source: [place] PROFILE (BMP) 5:05 AM [facility] REPOSITORY Order Comment: Comments: stress test protocol TYPE CODE TESTS RESULT OUT OF RANGE REFERENCE UNITS LAB L501.0100 74-106 mg/dL High GLU 169 Result Comment: Fasting Glucose result greater than or equal to 126 mg/dL suggests DIABETES MELLITUS per A.D.A. criteria. Please note revised GLUCOSE reference range effective 2017. LAB L501.1000 7-18 mg/dL Normal BUN 15 LAB L501.1100 0.55-1.02 mg/dL Normal CREAT,SERUM 0.79 Result Comment: The validity of the calculated GFR AND GFRAA in patients over 70 years has not been determined. Clinical correlation is essential. LAB L501.1110 >60 mL/min Normal EST GFR 77 Result Comment: Non- GFR Calc LAB L501.1115 >60 mL/min Normal EST GFR - AA 93 Result Comment: GFR Calc LAB L501.1255 ml/min Normal Estimated CRCL 44.54 LAB L501.1300 10-20 RATIO Normal BUN/CRE 19.0 LAB L501.2200 8.5-10 mg/dL Normal .1 CA 8.6 LAB L501.5300 136-14 mmol/L Normal 5 NA 142 LAB L501.5600 3.5-5. mmol/L Normal 1 K 4.0 LAB L501.5900 98-107 mmol/L Normal CL 105 LAB L501.6100 21.0-3 mmol/L Normal 2.0 CO2 29.0 LAB L501.6200 5-15 Normal GAP 8 Performed By: #### L500.2500, L100.0500, L300.4310 #### [facility] [address] [place], [place], [address] CBC-COMPLETE BLOOD CNT Collected: 03/28/2018 Status: F Source: [place] NO DIFF 5:05 AM [facility] REPOSITORY Order Comment: Comments: stress test protocol TYPE CODE TESTS RESULT OUT OF RANGE REFERENCE UNITS LAB L100.1000 4.4-11.0 K/mm3 Normal WBC 6.4 LAB L100.1200 4.2-5.4 M/mm3 Normal RBC 4.51 LAB L100.1300 12.0-15.0 g/dl Normal HGB 12.0 LAB L100.1400 37-47 % Normal HCT 37.4 LAB L100.1500 81-99 fL Normal MCV 82.9 LAB L100.1600 27.0-32.0 pg Low MCH 26.6 LAB L100.1700 32-36 g/gl Normal MCHC 32.1 LAB L100.1810 11.6-14.6 % High RDW CV 16.2 LAB L100.1820 35.1-43.9 fl High RDW SD 49.2 LAB L100.1900 150-450 K/mm3 Normal PLT 175 LAB L100.2000 6.2-12.0 fl Normal MPV 11.0 Performed By: #### L500.2500, L100.0500, L300.4310 #### [facility] [address] [place], [place], [id number] PARTIAL THROMBOPLAST Collected: 03/28/2018 Status: F Source: [place] TIME 5:05 AM [facility] REPOSITORY Order Comment: Comments: stress test protocol TYPE CODE TESTS RESULT OUT OF REFERENCE UNITS RANGE LAB L300.4310 24.1-36.2 Seconds High PTT 51.9 Performed By: #### L500.2500, L100.0500, L300.4310 #### [facility] [address] [place], [place], [address] PROTHROMBIN TIME W/INR Collected: 03/28/2018 Status: F Source: [place] 5:05 AM [facility] REPOSITORY TYPE CODE TESTS RESULT OUT OF RANGE REFERENCE UNITS LAB L300.4150 11.7-14.9 SECONDS High PROTIME 30.2 LAB L300.4200 Normal INR 2.9 Performed By: #### L300.3900 #### [facility] [address] [place], [place], [id number] BEDSIDE GLUCOSE Collected: 03/27/2018 Status: F Source: [place] 10:10 PM [facility] REPOSITORY TYPE CODE TESTS RESULT OUT OF REFERENCE UNITS RANGE LAB L501.080 70-110 mg/dL High BEDSIDE GLU 218 Result Comment: MANAGEMENT OF PATIENT CARE PER NURSING PROTOCOL Performed By: #### L501.080 #### [facility] Point of Care [address] [place] [address] ECHOCARDIOGRAM COMPLETE Observed: 03/27/2018 Status: F Source: [place] 5:27 PM [facility] REPOSITORY [facility] Cardiovascular Services [address] [place] [address] Echo Complete 03/27/18 08 MR#: [id number] Acct: [id number] Name: FLAVIA CASE Rep #: [id number] : 1950 67 From: Ferny Marie MD Attending Dr: Alex Lainez MD Status: ADM IN Ordering Dr: Ana Bradford MD Date: 03/27/18 Location: U Sex: F C Admitted: 03/26/18 Reason For Study: ATRIAL FIB-FLUTTER Procedure This was a 2D Doppler, Color Flow transthoracic echocardiogram. Myocardial strain analysis was performed in this exam to aid in the assessment of cardiac function. Exam performed portable in patient room. Left Ventricle Normal LV size. Moderate concentric left ventricular hypertrophy. Left ventricular systolic function is normal. The estimated ejection fraction is 60 %. Stage 3 diastolic dysfunction. No regional wall motion abnormalities noted. Atria The left atrium is mildly enlarged. Normal right atrium. Mitral Valve There is mild to moderate mitral annular calcification. Mild focal mitral valve calcification of the anterior leaflet. Mild (1+) eccentric mitral valve insufficiency. Tricuspid Valve Normal tricuspid valve. Mild (1+) tricuspid valve insufficiency. Pulmonary artery systolic pressure is 28 mmHg. Aortic Valve Peak aortic valve gradient 69 mmHg. Mean aortic valve gradient 37 mmHg. Moderate aortic stenosis. Calculated aortic valve area (continuity equation) is 0.9 cm2. Stable appearing mechanical aortic valve apparatus. Pulmonic Valve Normal pulmonic valve. Mild-Moderate (1-2+) pulmonic valve insufficiency. Great Vessels Normal aortic root. The pulmonary artery is normal size. Normal inferior vena cava. Pericardium/Pleural No pericardial effusion. MMode/2D Measurements AND Calculations LVIDd: 4.8 cm IVSd: 1.3 cm LVOT diam: 2.0 cm LVIDs: 2.9 cm LVPWd: 1.3 cm LVOT area: 3.1 cm2 RVDd: 4.1 cm FS: 39.6 % Ao root diam: 3.4 cm LAV(MOD-bp): 73.5 ml LVAd ap4: 35.0 cm2 LAV(MOD-bp) Indexed: 35.7 ml/m2 EDV(MOD-sp4): 125.4 ml LAV(MOD-sp2): 81.4 ml EDV(sp4-el): 130.2 ml LAV(MOD-sp4): 64.5 ml LVAs ap4: 20.8 cm2 ESV(MOD-sp4): 54.8 ml ESV(sp4-el): 54.1 ml EF(MOD-sp4): 56.3 % EF(sp4-el): 58.4 % SV(MOD-sp4): 70.6 ml SV(sp4-el): 76.1 ml LA A4 area: 21.5 cm2 LA dimension(2D): 4.1 cm RA A4 area: 17.2 cm2 Time Measurements MV dec time: 0.29 sec Doppler Measurements AND Calculations MV E max santo: 146.1 cm/sec Lat Peak E' Santo: 6.5 cm/sec Med Peak E' Santo: 5.6 cm/sec MV A max santo: 47.6 cm/sec E/E' lat: 22.6 E/E' med: 26.0 MV E/A: 3.1 MV V2 max: 147.3 cm/sec Ao V2 max: 413.7 cm/sec LV V1 max: 118.1 cm/sec MV max P.7 mmHg Ao max P.8 mmHg LV V1 max P.6 mmHg MV V2 mean: 83.9 cm/sec Ao V2 mean: 281.3 cm/sec LV V1 mean P.6 mmHg MV mean P.4 mmHg Ao mean P.4 mmHg LV V1 mean: 91.3 cm/sec MV V2 VTI: 47.3 cm Ao V2 VTI: 85.9 cm LV V1 VTI: 30.6 cm MVA(VTI): 2.0 cm2 EDEN(I,D): 1.1 cm2 EDEN(V,D): 0.90 cm2 SV(LVOT): 96.4 ml PA V2 max: 116.0 cm/sec TR max santo: 240.8 cm/sec TR max P.3 mmHg MV P1/2t-pr_phl: 119.9 msec Interpretation Summary Normal LV size. Moderate concentric left ventricular hypertrophy. Left ventricular systolic function is normal. The estimated ejection fraction is 60 %. Stage 3 diastolic dysfunction. Mild (1+) eccentric mitral valve insufficiency. Moderate aortic stenosis. Mean aortic valve gradient 37 mmHg. According to echo from [facility] the aortic valve gradients are similar Ordering Physician: Ana Bradford Referring Physician: KERI GAMEZ Performed By: Yudith Keane RDCS 03/27/181725 Date Ferny Marie MD CC: Collin Gamez MD; Alex Lainez MD; Ana Bradford MD Date Dictated: 03/27/18825 Date Transcribed: 03/27/181725 Tax Associate Attorney: Signed BEDSIDE GLUCOSE Collected: 03/27/2018 Status: F Source: [place] 4:16 PM [facility] REPOSITORY TYPE CODE TESTS RESULT OUT OF REFERENCE UNITS RANGE LAB L501.080 70-110 mg/dL High BEDSIDE GLU 217 Result Comment: MANAGEMENT OF PATIENT CARE PER NURSING PROTOCOL Performed By: #### L501.080 #### [facility] Point of [place] [address] BEDSIDE GLUCOSE Collected: 03/27/2018 Status: F Source: [place] 11:04 AM [facility] REPOSITORY TYPE CODE TESTS RESULT OUT OF REFERENCE UNITS RANGE LAB L501.080 70-110 mg/dL High BEDSIDE GLU 240 Result Comment: MANAGEMENT OF PATIENT CARE PER NURSING PROTOCOL Performed By: #### L501.080 #### [facility] Point of Care [address] [place] [address] CONSULTATION Observed: 03/27/2018 Status: F Source: [place] 8:15 AM [facility]IT[facility] Medical Records Department [address] [place] [address] Consultation 03/26/18 1818 MR#: [id number] Acct: [id number] Name: FLAVIA CASE Rep #: [id number] : 1950 67 From: Ferny Marie MD PCP: Collin Gamez MD Status: ADM IN Y Location: [place] [address] Reason for Consult Date of Consultation: 03/26/18 Reason for Consultation: Abnormal cardiac rhythm History of Present Illness: The patient is a 67 year old F with an extensive past medical history consisting of coronary artery disease status post coronary artery bypass surgery, prosthetic aortic valve replacement and hypertension. She presented to the emergency room with complaints of chest discomfort and palpitations. She said that she had had some symptoms of chest discomfort before with chest pain radiating down the right side of her neck. She called emergency medical squad and when they saw her she was noted to be in atrial fibrillation and they brought her in to be in the emergency room. In the emergency room she was evaluated and was noted to be in atrial fibrillation with rapid ventricular response rate. She was treated with intravenous Cardizem with improvement in her heart rate. She denied any associated dizziness or diaphoresis near syncope or syncope. She does not think that she has had any episode of atrial fibrillation in the past. She has been on anticoagulation for her prosthetic valve. Cardiology was called to evaluate her. She previously was following with Dr. Wade Corado at the [facility]. Past Medical History Allergies/Adverse Reactions: Allergies adhesive Allergy (Verified 03/26/18 15:02) Rash fluticasone propionate [From Advair Diskus] Allergy (Verified 03/26/18 17:00) chest pain gabapentin [From Neurontin] Allergy (Verified 03/26/18 17:00) Swelling of feet and legs salmeterol xinafoate [From Advair Diskus] Allergy (Verified 03/26/18 17:00) chest pains albuterol [From Ventolin HFA] Adverse Reaction (Verified 03/26/18 17:00) jittery TOO JITTERY cephalexin monohydrate [From Keflex] Adverse Reaction (Verified 03/26/18 17:00) abdominal cramping pregabalin Adverse Reaction (Verified 03/26/18 17:00) makes me slow to respond Home Medications: Ambulatory Orders Medication Instructions Recorded Past Medical History (Chronic Problems): Chronic Problems elevated BMI (Chronic) CAD (coronary artery disease) (Chronic) Hx of CABG (Chronic) Type 2 diabetes mellitus (Chronic) Hypertension (Chronic) Chronic obstructive lung disease (Chronic) Surgical History: coronary bypass surgery, - - aortic valve replacement 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: No pertinent psych hx 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 Denies: Shortness of Breath, Orthopnea, PND, Peripheral Edema, Lightheadedness, Dizziness, Near Syncope, Syncope Respiratory: Denies: Cough, Sputum Production, Hemoptysis Gastrointestinal: Denies: Indigestion, Hematemesis, Hematochezia, Melena Genitourinary: Denies: Dysuria, Hematuria Muscoloskeletal: Denies: Myalgias Skin: Denies: Rash Neurological: Denies: Dizziness Psychiatric: Denies: Anxiety Endocrine: Denies: Unexplained Weight Loss Hematologic/ Lymphatic: Denies: Anemia Subjectve: Pleasant lady in no apparent distress Objective: Vital Signs Temp Pulse Resp BP Pulse Ox 98.1 F 64 20 H 144/69 H 96 03/26/18 17:13 03/26/18 17:13 03/26/18 17:13 03/26/18 17:14 03/26/18 17:28 Oxygen Flow Rate (L/min) 3 Oxygen Delivery Method Nasal Cannula Weight: 231 lb 0.711 oz Body Mass Index (BMI) 40.9 General: Awake, Alert, Oriented x 3 HEENT: PERRL, EOMI, Sclera Non Icteric Neck: Supple, Good ROM, No Lymph Node Enlargement Lungs: Clear to auscultation Cardiovascular: Regular Rhythm, Normal S1, Normal S2, No Murmurs, No Rubs, No Gallops, Josephine Prosthetic S1 Vascular: No Carotid Bruits, Normal Femoral Pulses, Normal Radial Pulses, Normal Dorsalis Pedal Pulse, Normal Posterior Tibial Pulses Abdomen: Bowel Sounds Present, Soft, Non Tender, No HSM, No Organomegaly Extremities: No Cyanosis, No Clubbing, No edema Musculoskeletal: No Erythema Skin: No Rashes Lymphatic: No Lymph Node Enlargement Neurological: No Focal Motor or Sensory Deficit Psych/Mental Status: Appropriate 03/26/18 15:10: WBC 6.4, RBC 4.95, Hgb 13.1, Hct 40.7, MCV 82.2, MCH 26.5 L, MCHC 32.2, RDW 16.1 H, RDW Differential 47.7 H, Plt Count 169, MPV 11.1, Immature Gran % (Auto) 0.300, Neut % (Auto) 64.6, Lymph % (Auto) 24.4, [place] % (Auto) 5.7, Eos % (Auto) 3.9, Baso % (Auto) 1.1 H, Absolute Neuts (auto) 4.2, Total Counted Not Reportable 03/26/18 15:10: Sodium 137, Potassium 4.3, Chloride 103, Carbon Dioxide 24.0, Anion Gap 10, BUN 13, Creatinine 0.70, Est GFR (MDRD) Af Amer 108, Est GFR (MDRD) Non-Af 89, BUN/Creatinine Ratio 18.7, Glucose 257 H, Calcium 9.1, Troponin I < 0.015 03/26/18 15:10: PT 24.7 H, INR 2.2 Rhythm: EKG: Initial EKG demonstrated atrial fibrillation with a rate of 125 bpm., Follow-up EKG demonstrates atrial flutter with a controlled ventricular response rate of 70 bpm. Assessment/Plan 1. Atrial fibrillation with rapid ventricular response rate * Patient presents with recent onset atrial fibrillation flutter which responded very well to intravenous Cardizem. * Would suggest continue anticoagulation with Coumadin * Echocardiogram to assess her left ventricular function * Agree with the increase in the beta-yi to 100 mg of atenolol * We will obtain records of anticoagulation from her primary network coordinator office. If she has been noted to be therapeutic for at least a month may consider DC cardioversion * 2. Chest pain * Patient has known coronary artery disease status post coronary bypass surgery * Chest discomfort is somewhat atypical but thus far her cardiac enzymes are normal with no abnormal EKG findings. * If enzymes remain normal may recommend a pharmacologic myocardial perfusion stress test and further treatment depending on the findings * 3. Prosthetic aortic valve- * Patient has been on anticoagulation and appears to be functioning well * Obtain echocardiogram to assess the above * Obtain records to confirm an INR of 2.5-3.5 * 4. Coronary artery disease * Patient is status post coronary bypass surgery * We will continue cardiac enzymes to rule out acute coronary syndrome * 5. Hypertension * Pressure control appears to be fair * Would recommend the addition of the beta-yi. * * Thank you for allowing me to participate in the care of your patient. Please don't hesitate to call if any issues arise 03/27/1815 <Electronically signed by Ferny Marie MD> Date Ferny Marie MD Cosigner Signature (if applicable): Date CC: Collin Gamez MD; Ferny Marie MD; Ana Bradford MD Signed BEDSIDE GLUCOSE Collected: 03/27/2018 Status: F Source: [place] 6:32 AM [facility] REPOS[facility]ORY TYPE CODE TESTS RESULT OUT OF REFERENCE UNITS RANGE LAB L501.080 70-110 mg/dL High BEDSIDE GLU 178 Result Comment: MANAGEMENT OF PATIENT CARE PER NURSING PROTOCOL Performed By: #### L501.080 #### [facility] Point of Care [address] [place] [address] CBC W/DIFF, AUTOMATED Collected: 03/27/2018 Status: F Source: [place] 5:00 AM [facility] REPOS[facility]ORY TYPE CODE TESTS RESULT OUT OF RANGE REFERENCE UNITS LAB L100.1000 4.4-11.0 K/mm3 Normal WBC 7.0 LAB L100.1200 4.2-5.4 M/mm3 Normal RBC 4.47 LAB L100.1300 12.0-15.0 g/dl Normal HGB 12.0 LAB L100.1400 37-47 % Normal HCT 37.1 LAB L100.1500 81-99 fL Normal MCV 83.0 LAB L100.1600 27.0-32.0 pg Low MCH 26.8 LAB L100.1700 32-36 g/gl Normal MCHC 32.3 LAB L100.1810 11.6-14.6 % High RDW CV 16.0 LAB L100.1820 35.1-43.9 fl High RDW SD 47.7 LAB L100.1900 150-450 K/mm3 Normal PLT 172 LAB L100.2000 6.2-12.0 fl Normal MPV 11.5 LAB L100.2100 47-70 % Normal NEUT% 58.6 LAB L100.2200 19-41 % Normal LY% 27.7 LAB L100.2300 0-10 % Normal MONO% 8.2 LAB L100.2400 0-5 % Normal EO% 4.0 LAB L100.2500 0-1 % High BASO% 1.1 LAB L100.2550 0.0-0.9 % Normal IM GRAN % 0.400 Result Comment: IG% - Immature Granulocytes (promyelocytes, myelocytes and metamyelocytes) > 1% indicates that a LEFT SHIFT is Present. LAB L100.2620 2.0-7.7 X10 3/uL Normal Absolute Neut 4.1 LAB L100.2720 0.83-4.51 X10 3/ul Normal Absolute Lymph 1.93 Performed By: #### L100.0100 #### [facility] [address] [place], [place], [id number] BASIC METABOLIC Collected: 03/27/2018 Status: F Source: [place] PROFILE (BMP) 5:00 AM [facility] REPOSITORY TYPE CODE TESTS RESULT OUT OF RANGE REFERENCE UNITS LAB L501.0100 74-106 mg/dL High GLU 163 Result Comment: Fasting Glucose result greater than or equal to 126 mg/dL suggests DIABETES MELLITUS per A.D.A. criteria. Please note revised GLUCOSE reference range effective 2017. LAB L501.1000 7-18 mg/dL Normal BUN 14 LAB L501.1100 0.55-1.02 mg/dL Normal CREAT,SERUM 0.72 Result Comment: The validity of the calculated GFR AND GFRAA in patients over 70 years has not been determined. Clinical correlation is essential. LAB L501.1110 >60 mL/min Normal EST GFR 85 Result Comment: Non- GFR Calc LAB L501.1115 >60 mL/min Normal EST GFR - AA 103 Result Comment: GFR Calc LAB L501.1255 ml/min Normal Estimated CRCL 44.54 LAB L501.1300 10-20 RATIO Normal BUN/CRE 19.4 LAB L501.2200 8.5-10 mg/dL Normal .1 CA 8.6 LAB L501.5300 136-14 mmol/L Normal 5 NA 142 LAB L501.5600 3.5-5. mmol/L Normal 1 K 4.0 LAB L501.5900 98-107 mmol/L Normal CL 105 LAB L501.6100 21.0-3 mmol/L Normal 2.0 CO2 28.0 LAB L501.6200 5-15 Normal GAP 9 Performed By: #### L500.2500 #### [facility] [address] [place], [place], [id number] PROTHROMBIN TIME W/INR Collected: 03/27/2018 Status: F Source: [place] 5:00 AM [facility] REPOSITORY Order Comment: Comments: stress test protocol TYPE CODE TESTS RESULT OUT OF RANGE REFERENCE UNITS LAB L300.4150 11.7-14.9 SECONDS High PROTIME 28.9 LAB L300.4200 Normal INR 2.7 Performed By: #### L300.3900, L300.4310 #### [facility] [address] [place], [address] PARTIAL THROMBOPLAST Collected: 03/27/2018 Status: F Source: [place] TIME 5:00 AM [facility] REPOSITORY Order Comment: Comments: stress test protocol TYPE CODE TESTS RESULT OUT OF REFERENCE UNITS RANGE LAB L300.4310 24.1-36.2 Seconds High PTT 56.2 Performed By: #### L300.3900, L300.4310 #### [facility] [address] [place], [address] EMERGENCY DEPARTMENT Observed: 03/26/2018 Status: F Source: [place] SUMMARY 11:27 PM [facility] REPOSITORY [facility] Medical Records Department [address] [place] [address] Emergency Department Summary 03/26/18 1515 MR#: [id number] Acct: [id number] Name: FLAVIA CASE Rep #: [id number] : 1950 67 From: Phillip Alexandra MD PCP: Collin Gamez MD Status: ADM IN - ER Visit Summary Date of Service: 03/26/18 Chief Complaint: Chest pain and accelerated heart rate History of Present Illness: The patient is a 67 F known history of prior prosthetic valve. Prior triple bypass. COPD, CAD, wii-nqqxjyi-opqjrkarb diabetes. Prior lung CA. No history previously of A. fib. Patient states that around 130-day should accelerate heart rate starting in mid arms. Mild shortness of breath. Denies any prior history. She is on Coumadin secondary to her prosthetic valve. Physical Examination: Older female complaint chest discomfort. Vital signs are stable except for her heart rate that one in the room is in the 130 range. A. fib on the monitor. HEENT exam unremarkable. Neck nontender. Lungs clear to auscultation bilaterally. Heart irregularly irregular rate about 133. Abdomen is soft nontender. Normal bowel sounds no peritoneal signs. Remedies moves all 4. Calves nontender no edema or cords. Neurologically she is awake and alert with no focal motor deficits. Test Results: Initial EKG showed A. fib fib rate of approximately 125. Incomplete right bundle branch block. Inverted T waves in [address] elevation. Patient was given IV Cardizem 25 mg and the second EKG shows what appears to be atrial flutter with a rate of 63. No signs of ischemia. Chest x-ray shows borderline cardiomegaly and mild CHF. CBC normal white count of 6. Hemoglobin 13. Electrolytes unremarkable. Glucose of 257. She is on Coumadin her INR is 2.2 and her troponin is normal. Emergency Department Course and Treatment: Patient undergo cardiac workup. Will receive IV Cardizem for her new onset A. fib RVR. Treatment Plan: Repeat exam patient is doing better with her heart rate now in the 60s. She is still having chest pain an inch of Nitropaste was placed. I very spoken to the hospitalist who has been down to admit the patient to PCU. Disposition: Admission Impression: New onset A. fib RVR Acute chest pain History of prosthetic aortic valve with a prior triple bypass History of CAD, hypertension, lvd-mvzhhfv-srdkvafqq diabetes, prior lung CA This note was generated with Newsboundation software. It may contain incorrect words, spelling, and punctuation that were not noted in review of the chart prior to signing ED Disposition - Plan for ED Patient: Chief Complaint: Chest Pain Referrals: Collin Gamez MD [Primary Care Provider] - What to do if you have Problems For any increased pain, shortness of breath, bleeding, nausea or vomiting, chest pain, or any unexpected problems, contact your Primary Care Provider. Call [facility] ([phone]) or report to the closest Emergency Room. Call 911 if necessary. 03/26/18 8120 <Electronically signed by Phillip Alexandra MD> Date Phillip Alexandra MD Cosigner Signature (If Indicated): Date CC: Collin Gamez MD BEDSIDE GLUCOSE Collected: 03/26/2018 Status: F Source: [place] 9:03 PM [facility] REPOSITORY TYPE CODE TESTS RESULT OUT OF REFERENCE UNITS RANGE LAB L501.080 70-110 mg/dL High BEDSIDE GLU 202 Result Comment: MANAGEMENT OF PATIENT CARE PER NURSING PROTOCOL Performed By: #### L501.080 #### [facility] Point of Care [address] [place] [address] TROPONIN-I Collected: 03/26/2018 Status: F Source: [place] 8:56 PM [facility] REPOSITORY Order Comment: 'TROP' Serial specimen #1, #2 or #3: 3 TYPE CODE TESTS RESULT OUT OF RANGE REFERENCE UNITS LAB L501.4010 <0.045 ng/mL High 0.582 TROPONIN-I Result Comment: TROPONIN-I EXPECTED VALUES <0.045 Negative 0.045 - 0.590 Consistent with Cardiac Damage > OR = 0.600 Critical Value Not every elevated troponin is indicative of FL. These values should be used with clinical judgement in examining the patient's clinical picture for diagnosis. To establish a diagnosis of FL versus myocardial injury, there must be a demonstrated rise and/or fall in the troponin values, in addition to ischemic symptoms, EKG changes, new regional wall motion abnormality, and/or angiographical evidence. PLEASE NOTE: REFERENCE RANGES EDITED 17 Performed By: #### L501.4010 #### [facility] [address] [facility] [place], [address] HISTORY AND PHYSICAL Observed: 03/26/2018 Status: F Source: [place] EXAM 6:53 PM [facility] REPOSITORY [facility] Medical Records Department [address] [place] [address] History and Physical 03/26/18 1648 MR#: [id number] Acct: [id number] Name: FLAVIA CASE Rep #: [id number] : 1950 67 From: Ana Bradford MD PCP: Collin Gamez MD Status: ADM IN Location: [place] [address] History of Present Illness Date of Admission: 03/26/18 Chief Complaint: chest pain, palpitations The patient is a 67 year old F with an extensive past medical history as listed below including CAD, bicuspid aortic valve status post valve replacement, and hypertension. She was admitted through the ED on 03/26/2018 with a complaint of chest pain and palpitations. She had had such symptoms before and chest pain was left-sided and radiated to her right neck, and was sharp. He had no aggravating or relieving factors. They called the EMS and she was found to be in A. fib and atrial flutter with RVR. She denied any associated shortness of breath, lightheadedness weakness or dizziness, abdominal pain, diarrhea or vomiting. On admission, heart rate was found to be in the 130s; pressure was 171/84, temperature and respiratory rate were normal. She was treated on 9 7% on 4 L of oxygen. Of note patient does not wear oxygen at home. Labs showed unremarkable CBC with initial negative troponin and BMP was also markable. BNP was not checked. Chest x-ray showed clear expanded lungs with no acute abnormality. She is been admitted to be managed for new onset A. fib with RVR. [] Past Medical History Past Medical History (Chronic Problems): Chronic Problems elevated BMI (Chronic) CAD (coronary artery disease) (Chronic) Hx of CABG (Chronic) Type 2 diabetes mellitus (Chronic) Hypertension (Chronic) Chronic obstructive lung disease (Chronic) Allergies adhesive Allergy (Verified 03/26/18 15:02) Rash fluticasone propionate [From Advair Diskus] Allergy (Verified 03/26/18 15:02) Other gabapentin [From Neurontin] Allergy (Verified 03/26/18 15:02) Swelling salmeterol xinafoate [From Advair Diskus] Allergy (Verified 03/26/18 15:02) Other albuterol [From Ventolin HFA] Adverse Reaction (Verified 03/26/18 15:02) Other TOO JITTERY cephalexin monohydrate [From Keflex] Adverse Reaction (Verified 03/26/18 15:02) Other Home Medications: Ambulatory Orders Medication Instructions Recorded Surgical History: - - aortic valve replacement 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: No pertinent psych hx 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 Denies: Chest Pressure, Chest Tightness, Edema, Heaviness, Light Headedness, Orthopnea, Paroxysmal Noc. Dyspnea, Syncope Respiratory: Reports: Shortness of Breath, Shortness of breath at rest, Shortness of breath upon exertion. Denies: Cough, Sputum production, Wheezing Gastrointestinal: Denies: Abdominal Pain, Nausea, Vomiting Genitourinary: Denies: Dysuria Musculoskeletal: Denies: Joint Pain, Joint Tenderness Neurological: Denies: Numbness, Tingling, Focal weakness Psychiatric: Denies: Anxiety, Depression, Homicidal Ideations, Suicidal Ideations Hematologic/ Lymphatic: Denies: Easy Bruising, Easy Bleeding VTE Information - Inpt Only VTE Present on Admission: No VTE Pharm Prophylaxis ordered?: No Reason prophylaxis not ordered:: Treatment Not Indicated - on coumadin. INR is therapeutic - Physical Exam General: Alert, Oriented x3, Cooperative, No apparent distress HEENT: Atraumatic, PERRLA, EOMI, Normocephalic Oral: Moist Mucosa Neck: Supple, No JVD, Negative Carotid Bruits Lungs: Clear to auscultation, Normal air movement, - - on 4L of oxygen Cardiovascular: Regular rate, Irregular Rate - and rhythm, - - mechanical aortic valve click Abdomen: Bowel Sounds Present, Soft, Non Tender, Non-Distended, No Hepato-splenomegaly Extremities: No clubbing, No cyanosis, No edema, Capillary Refill Less than 3 Seconds Skin: No rashes, No breakdown Musculoskeletal: No Tenderness to Palpation of Joints or Extremities Lymphatic: No Cervical, Supraclavicular, or Inguinal Adenopathy Neurological: Cranial nerves II-XII grossly intact Psych/Mental Status: Normal Affect, Appropriate, Alert and oriented to time, place, person, mood and affect Vital Signs Temp Pulse Resp BP Pulse Ox 98.0 F 57 L 17 145/53 H 97 03/26/18 15:02 03/26/18 16:07 03/26/18 16:07 03/26/18 16:07 03/26/18 16:07 Oxygen Flow Rate (L/min) 4 Oxygen Delivery Method Nasal Cannula Weight: 231 lb 0.711 oz Body Mass Index (BMI) 40.9 Laboratory Tests Past 24 Hrs Diagnostic Data Chest X-Ray 03/26/18 15:10 IMPRESSION: No acute abnormality is seen. Electronically Signed: Krishan Booker MD at 15:38 EST Tel [phone], Service support , Assessment/Plan 67-year-old female with past medical history of CAD, aortic valve replacement due to bicuspid aortic valve on Coumadin, and hypertension presenting with complaint of chest pain and palpitations. 1. New onset afib with RVR * now rate controlled. HR was in 130s on admission * was given one dose of IV cardizem in the Ed * EKG showed Afib with HR of 130, incomplete RBBB and inverted T waves in leads 3 and aVG. * CXR showed no acute cardiopulmonary process * admit to PCU with telemetry * consult cardiolology o/a of new onset Afib * check TSH and BNP * get 2D echocardiogram * 2. Chest pain to rule out ACS * Troponin negative. We will cycle. * 2D echo ordered. * For stress test tomorrow if troponins remain negative. * Sublingual nitroglycerin as needed. Aspirin 81 mg daily. * 3. Bicuspid aortic valve status post aortic valve replacement: * On Coumadin. INR is 2.2. continue coumadin. INR target likely 2.5-3.5 * 4. CAD s/p triple bypass: on coumadin, statin and atenolol. 5. Hypertension: Continue BP meds 6. Type 2 diabetes mellitus: Insulin sliding scale. on glipizide and metformin; will hold. Accuchecks ACHS. Continue current diabetes medications. Hold metformin. 7. History of small cell lung cancer: Was treated with radiation and is now stable. To follow-up with oncology on discharge. 8. Goiter: States she has been told that she has enlarged thyroid with multiple nodules in it. She is told no intervention is needed. Will check TSH in light of new onset A. fib. DVT prophylaxis: On Coumadin Code status: Patient counseled extensively about different types of CODE STATUS including full code, DNR CCA and DNR CCA. Patient elects to be full code. Total [id number] time 17 minutes. Code Visit Inpatient E AND M: 89890 Init Hosp L3 Procedures: 59250 Advncd Care Plan 30 Min 03/26/18 4613 <Electronically signed by Ana Bradford MD> Date Ana Bradford MD Cosigner Signature: Date (if applicable) CC: Collin Gamez MD; Ana Bradford MD Signed CBC W/DIFF, AUTOMATED Collected: 03/26/2018 Status: F Source: [place] 3:10 PM [facility] REPOSITORY TYPE CODE TESTS RESULT OUT OF RANGE REFERENCE UNITS LAB L100.1000 4.4-11.0 K/mm3 Normal WBC 6.4 LAB L100.1200 4.2-5.4 M/mm3 Normal RBC 4.95 LAB L100.1300 12.0-15.0 g/dl Normal HGB 13.1 LAB L100.1400 37-47 % Normal HCT 40.7 LAB L100.1500 81-99 fL Normal MCV 82.2 LAB L100.1600 27.0-32.0 pg Low MCH 26.5 LAB L100.1700 32-36 g/gl Normal MCHC 32.2 LAB L100.1810 11.6-14.6 % High RDW CV 16.1 LAB L100.1820 35.1-43.9 fl High RDW SD 47.7 LAB L100.1900 150-450 K/mm3 Normal PLT 169 LAB L100.2000 6.2-12.0 fl Normal MPV 11.1 LAB L100.2100 47-70 % Normal NEUT% 64.6 LAB L100.2200 19-41 % Normal LY% 24.4 LAB L100.2300 0-10 % Normal MONO% 5.7 LAB L100.2400 0-5 % Normal EO% 3.9 LAB L100.2500 0-1 % High BASO% 1.1 LAB L100.2550 0.0-0.9 % Normal IM GRAN % 0.300 Result Comment: IG% - Immature Granulocytes (promyelocytes, myelocytes and metamyelocytes) > 1% indicates that a LEFT SHIFT is Present. LAB L100.2620 2.0-7.7 X10 3/uL Normal Absolute Neut 4.2 LAB L100.2720 0.83-4.51 X10 3/ul Normal Absolute Lymph 1.57 Performed By: #### L100.0100 #### [facility] [address] [place], [address] PROTHROMBIN TIME W/INR Collected: 03/26/2018 Status: F Source: [place] 3:10 PM [facility] REPOSITORY TYPE CODE TESTS RESULT OUT OF RANGE REFERENCE UNITS LAB L300.4150 11.7-14.9 SECONDS High PROTIME 24.7 LAB L300.4200 Normal INR 2.2 Performed By: #### L300.3900 #### [facility] [address] [place], [address] BASIC METABOLIC Collected: 03/26/2018 Status: F Source: [place] PROFILE (BMP) 3:10 PM [facility] REPOSITORY TYPE CODE TESTS RESULT OUT OF RANGE REFERENCE UNITS LAB L501.0100 74-106 mg/dL High GLU 257 Result Comment: Glucose result greater than or equal to 200 mg/dL suggests DIABETES MELLITUS per A.D.A. criteria. Please note revised GLUCOSE reference range effective 2017. LAB L501.1000 7-18 mg/dL Normal BUN 13 LAB L501.1100 0.55-1.02 mg/dL Normal CREAT,SERUM 0.70 Result Comment: The validity of the calculated GFR AND GFRAA in patients over 70 years has not been determined. Clinical correlation is essential. LAB L501.1110 >60 mL/min Normal EST GFR 89 Result Comment: Non- GFR Calc LAB L501.1115 >60 mL/min Normal EST GFR - AA 108 Result Comment: GFR Calc LAB L501.1255 ml/min Normal Estimated CRCL 44.54 LAB L501.1300 10-20 RATIO Normal BUN/CRE 18.7 LAB L501.2200 8.5-10 mg/dL Normal .1 CA 9.1 LAB L501.5300 136-14 mmol/L Normal 5 NA 137 LAB L501.5600 3.5-5. mmol/L Normal 1 K 4.3 LAB L501.5900 98-107 mmol/L Normal CL 103 LAB L501.6100 21.0-3 mmol/L Normal 2.0 CO2 24.0 LAB L501.6200 5-15 Normal GAP 10 Performed By: #### L500.2500, L501.4010 #### [facility] [address] [place], [address] TROPONIN-I Collected: 03/26/2018 Status: F Source: [place] 3:10 PM [facility] REPOSITORY TYPE CODE TESTS RESULT OUT OF RANGE REFERENCE UNITS LAB L501.4010 <0.045 ng/mL Normal < 0.015 TROPONIN-I Result Comment: TROPONIN-I EXPECTED VALUES <0.045 Negative 0.045 - 0.590 Consistent with Cardiac Damage > OR = 0.600 Critical Value Not every elevated troponin is indicative of FL. These values should be used with clinical judgement in examining the patient's clinical picture for diagnosis. To establish a diagnosis of FL versus myocardial injury, there must be a demonstrated rise and/or fall in the troponin values, in addition to ischemic symptoms, EKG changes, new regional wall motion abnormality, and/or angiographical evidence. PLEASE NOTE: REFERENCE RANGES EDITED 17 Performed By: #### L500.2500, L501.4010 #### [facility] [address] [place], [address] PARTIAL THROMBOPLAST Collected: 03/26/2018 Status: F Source: [place] TIME 3:10 PM [facility] REPOSITORY TYPE CODE TESTS RESULT OUT OF REFERENCE UNITS RANGE LAB L300.4310 24.1-36.2 Seconds High PTT 49.7 Performed By: #### L300.4310 #### [facility] [address] [place], [address] THYROID STIM HORMONE Collected: 03/26/2018 Status: F Source: [place] (TSH) 3:10 PM [facility] REPOSITORY TYPE CODE TESTS RESULT OUT OF RANGE REFERENCE UNITS LAB L501.9520 0.358-3.74 uIU/mL Normal TSH 0.94 Performed By: #### L501.9520 #### [facility] [address] [place], [address] BNP,B-TYPE NATRIURETIC Collected: 03/26/2018 Status: F Source: [place] PEPTIDE 3:10 PM [facility] REPOSITORY TYPE CODE TESTS RESULT OUT OF RANGE REFERENCE UNITS LAB L503.6620 0-100 pg/mL High B-TYPE 150.3 STIVEN PEP Performed By: #### L503.6620 #### [facility] [address] [place], [address] CHEST 1 VIEW Observed: 03/26/2018 Status: F Source: [place] (PORTABLE) 3:09 PM [facility] REPOSITORY [facility] Imaging Services [address] [place] [address] Chest 1 View (Portable) MR#: [id number] Acct: [id number] Name: FLAVIA CASE Rep #: [id number] : 1950 F 67 From: Krishan Booker MD PCP: Collin Gamez MD Status: PRE ER Study: Chest 1 View (Portable) Date of Exam: 03/26/18 Exam# [id number] Ordering Dr: Phillip Alexandra MD STUDY: X-RAY CHEST REASON FOR EXAM: Female, 67 years old. Hypertension. TECHNIQUE: Single AP portable view of the chest. COMPARISON: Comparison is made with prior study dated October 23, 2016. FINDINGS: EKG electrodes are seen. The lungs are clear and expanded. Scattered calcified granulomas. There is no demonstrated pleural abnormality. Sternal cerclage wires and vascular clips are present from a prior sternotomy and coronary artery bypass graft procedure (CABG). Patient is status post aortic valve replacement. Normal mediastinum and janice. Normal visualized pulmonary arteries. Normal visualized aortic arch and descending thoracic aorta. There are diffuse degenerative changes of the visualized thoracic spine. Normal visualized ribs, clavicles, and shoulders. There is no demonstrated abnormality of the visualized soft tissue structures of the upper abdomen. RAD/Chest 1 View (Portable) IMPRESSION: No acute abnormality is seen. Electronically Signed: Krishan Booker MD at 15:38 EST Tel [phone], Service support , CC: Collin Gamez MD; Phillip Alexandra MD Tax Associate Attorney: Signed PROGRESS Observed: 02/01/2018 Status: COMPLETED Source: [place] 10:51 AM [facility] REPOSITORY HNO ID: [id number] Author: Dana Alfaro Service: (none) Author Type: Validation Engineer Type: Progress Notes Filed: 02/01/2018 10:51 AM Note Text: Radiology Service Progress Note PATIENT NAME: Flavia Case DATE OF SERVICE: February 01, 2018 TIME: 10:51 AM PATIENT IDENTITY VERIFICATION COMPLETED USING TWO (2) METHODS: Patient confirmed name verbally and Date of . PATIENT GENDER DATA: Female. status: : No status: N/A PATIENT RELEVANT IMPLANT DATA REVIEWED: Not Applicable RADIOLOGY DEPARTMENT: Ultrasound PERIPHERAL IV DATA: Not applicable SIGNED BY: DANA ALFARO RDMS RVJohnathan February 01, 2018 10:51 AM US ABD SPLEEN -NB Observed: 02/01/2018 Status: F Source: [place] 10:49 AM [facility] REPOSITORY * * *Final Report* * * DATE OF EXAM: Feb 01 2018 10:49AM WRU 1232 - US ABD SPLEEN -NB / PROCEDURE REASON: RUQ fullness * * * * Physician Interpretation * * * * EXAMINATION: RIGHT UPPER QUADRANT ULTRASOUND CLINICAL HISTORY: Right upper quadrant fullness and pain. Remote cholecystectomy. TECHNIQUE: Sonography of the right upper quadrant was performed. Images were obtained and stored in a permanent archive. MQ: URUQ_1 COMPARISON: Comparison is made to CT chest dated 23 January [address] abdomen pelvis from 01 April 2013 LIMITATIONS: Patient body habitus and shadowing from bowel gas. RESULT: Pancreas: Normal sonographic appearance. Portions obscured: tail Liver: Enlarged with a sagittal length of 24 cm Echotexture: Coarsened Echogenicity: Inhomogeneous Surface contour: Smooth Lesions: None. Spleen: Spleen is homogeneous with calcified residuals prior granulomatous disease. It is mildly enlarged with a sagittal length of 13.9 cm. No focal lesions. Biliary: No intrahepatic biliary duct dilation. CBD: 0.51 cm at the hilum. Gallbladder: Surgically absent. Right and left Kidney: No hydronephrosis. Ascites: None. IMPRESSION: Chronic hepatosplenomegaly with fatty infiltration of the liver. Gallbladder surgically absent. No apparent choledocholithiasis or significant biliary ectasia. Tax Associate Attorney: FAHAD Transcribe Date/Time: Feb 01 2018 11:34A Dictated by : BOB OBRIEN MD This examination was interpreted and the report reviewed and electronically signed by: BOB OBRIEN MD on Feb 01 2018 11:43AM EST [id number] US ABD RIGHT UPPER Observed: 02/01/2018 Status: F Source: [facility] 10:49 AM [facility] REPOSITORY * * *Final Report* * * DATE OF EXAM: Feb 01 2018 10:49AM WRU 1032 - US ABD RIGHT UPPER QUADRANT / PROCEDURE REASON: RUQ fullness * * * * Physician Interpretation * * * * EXAMINATION: RIGHT UPPER QUADRANT ULTRASOUND CLINICAL HISTORY: Right upper quadrant fullness and pain. Remote cholecystectomy. TECHNIQUE: Sonography of the right upper quadrant was performed. Images were obtained and stored in a permanent archive. MQ: URUQ_1 COMPARISON: Comparison is made to CT chest dated 23 January [address] abdomen pelvis from 01 April 2013 LIMITATIONS: Patient body habitus and shadowing from bowel gas. RESULT: Pancreas: Normal sonographic appearance. Portions obscured: tail Liver: Enlarged with a sagittal length of 24 cm Echotexture: Coarsened Echogenicity: Inhomogeneous Surface contour: Smooth Lesions: None. Spleen: Spleen is homogeneous with calcified residuals prior granulomatous disease. It is mildly enlarged with a sagittal length of 13.9 cm. No focal lesions. Biliary: No intrahepatic biliary duct dilation. CBD: 0.51 cm at the hilum. Gallbladder: Surgically absent. Right and left Kidney: No hydronephrosis. Ascites: None. IMPRESSION: Chronic hepatosplenomegaly with fatty infiltration of the liver. Gallbladder surgically absent. No apparent choledocholithiasis or significant biliary ectasia. Tax Associate Attorney: FAHAD Transcribe Date/Time: Feb 01 2018 11:34A Dictated by : BOB OBRIEN MD This examination was interpreted and the report reviewed and electronically signed by: BOB OBRIEN MD on Feb 01 2018 11:43AM EST [id number] FECAL OCCULT BLD Collected: 01/30/2018 Status: F Source: [facility] 9:00 AM [facility] REPOSITORY TYPE CODE TESTS RESULT OUT OF REFERENCE UNITS RANGE LAB IFO Negative Immuno Negative FOB Result Comment: This test was developed and its performance characteristics determined by [facility] [place] ([facility]). It has not been cleared or approved by the FDA. [facility] is regulated under CLIA as qualified to perform high-complexity testing. This test is used for clinical purposes. It should not be regarded as investigational or for research. Performed By: #### IFOBT #### [facility] [address], [place] [address] Observed: 01/24/2018 Status: F Source: [place] URINE CULTURE 2:44 PM [facility] REPOSITORY Sp. Request/Comment: - Specimen received in preservative Culture Result - >=100,000 CFU/ml Escherichia coli --> ABNORMAL ALERT ORGANISM: Escherichia coli METHOD: Minimum inhibitory concentration(Vitek) Antibiotic Interp BOZENA Status Ampicillin SUSCEPTIBLE <=2 F Gentamicin SUSCEPTIBLE <=1 F Trimeth sulfameth SUSCEPTIBLE <=20 F Cefazolin SUSCEPTIBLE <=4 F CLSI breakpoints for therapy of uncomplicated UTI's due to E.coli, K.pneumoniae, and P.mirabilis were applied and may be used to predict the activity of oral agents(cefaclor, cefdinir, cefpodoxime, cefp rozil, cefuroxime, cephalexin, loracarbef). Ciprofloxacin SUSCEPTIBLE <=0.25 F Nitrofurantoin SUSCEPTIBLE <=16 F Cefepime SUSCEPTIBLE <=1 F Piperacillin/Tazobac SUSCEPTIBLE <=4 F Ampicillin Sulbact SUSCEPTIBLE <=2 F Ceftriaxone SUSCEPTIBLE <=1 F Meropenem SUSCEPTIBLE <=0.25 F Ertapenem SUSCEPTIBLE <=0.5 F Performed By: #### URCUL #### [facility] [address], [place] [address] PROGRESS Observed: 01/24/2018 Status: COMPLETED Source: [place] 2:26 PM [facility] REPOSITORY HNO ID: [id number] Author: Himanshu (Koko) Sybil Service: (none) Author Type: Registered Nurse Type: Progress Notes Filed: 01/24/2018 2:55 PM Note Text: PRIMARY CARE COORDINATION IN OFFICE VISIT WITH PCP Patient has been identified by name and date of . PCP Assessment/Plan: Reviewed PCP plan with patient using Teach Back PCP concerned about abdominal fullness. Will have pt get abdominal US today PCC Plan of Care: PCC Interventions: Gave patient printed script for home scale. Instructed to go to [facility] and have them check with insurance if they will pay for scale. If they won't pay let PCC know, pt verbalized understanding. Next Office Visit: Visit date not found Plan For Next Call: 3 weeks Himanshu Aquino RN January 24, 2018 PROGRESS Observed: 01/24/2018 Status: COMPLETED Source: [place] 1:46 PM [facility] REPOSITORY O ID: [id number] Author: Keri Mo) Vera Service: (none) Author Type: Physician Type: Progress Notes Filed: 01/24/2018 3:23 PM Note Text: 67 year old female here for INACTIVATED INFLUENZA VACCINE. 5900-3475 Season Patient is identified by name and date of : Yes [] CONTRAINDICATIONS color enhanced section Age less than 6 months? No Allergy to eggs, chicken, chicken feathers, or chicken dander? No Allergy to thimerosal (a preservative) or formaldehyde, gelatin? No History of severe reaction to any vaccine component or a previous dose of influenza vaccination? No History of Guillain-[place] Syndrome within 6 weeks after a previous influenza vaccine? No Patient is not moderately or severely ill? No Current temperature greater or equal to 100.4F? No History of Bone Marrow Transplant prior 6 months or solid organ transplant in the past 3 months ? No History of fainting after a prior injection or medical procedure? No- ? If patient has fainted in the past, the CDC recommends sitting or lying down for 15 minutes after the vaccination. [] VERIFICATION color enhanced section Was the answer Yes for any of the above contraindications? No contraindications present. Acceptable to proceed with vaccine. Patient/guardian agrees the above answers are true to the best of their knowledge? Yes Flu vaccine information sheet given? Yes See immunization activity in [facility] for details of immunizations adminstered today. Patient age: [age] year old For The 8186-6477 Flu Season 6-35 months old: Fluzone 0.25 ml - IM (Preservative Free) 3 years of age: Fluzone 0.5 ml - IM (Preservative Free) 3 years and older: Fluzone 0.5 ml- IM-(with Preservatives) 65+ years old: 2-49 years old Fluzone High-Dose 0.5 ml - IM (Preservative Free) FLUMIST- intranasal REMEMBER: If patient is less than 9 years of age and this is the first vaccine of Influenza to be received in any flu season, they should receive a second dose in one months time. CNOV Observed: 01/24/2018 Status: COMPLETED Source: [place] 1:40 PM [facility] REPOSITORY [facility] FLAVIA CASE ([id number]) 1950 F Date Time Provider Department 01/24/18 1:40 PM KERI GAMEZ) [facility] During your visit today, we recorded the following information about you: Pulse Respiration Blood pressure Weight 78/minute 18/minute 124/78 104.8 kg Keri Gamez MD 01/24/2018 3:23 PM Signed Chief Complaint Patient presents with: Recheck: pt complains of nausea for 2-3 months Imm/Inj: Flu Vaccine HPI Flavia Case is a 67 year old female who presents here today for 3 month follow up. Complaining today of nausea without vomiting intermittently over the last 2-3 months. Symptoms occur 2-3 times per week. Thinks symptoms occur when she eats a big meal. Taking prevacid as prescribed. Admits to urinary urgency and dark urine. Denies abdominal pain, GERD, flank pain, hematuria, frequency, dysuria. DIABETES MELLITUS: Ms. Case was last seen 3 months ago. Since our last visit she denies excessive thirst or increased frequency of urination, numbness, tingling or pain in extremities, new or unusual visual symptoms and low sugar/hypoglycemic reactions. Follows a diabetic diet most of the time. She is not compliant with medication(s) but is tolerating med(s) without any side effects. She reports checking her glucose on a once a day schedule with sugars in the fasting 140-160 range. Patient's last HgA1C was Hemoglobin A1C (%) Date Value 01/15/2018 6.8 10/03/2017 7.7 ) Last Ophthalmology exam was within the past 12 months Last Podiatry exam was within the past 12 months Seen yesterday by oncology Dr. Lizarraga and told that she does not need to undergo any further treatment for lung cancer at this time as CT yesterday showed no further identifiable lesions, just post radiation changes. Recommended follow up in 6 months. ASHD: Stable. patient following up with Dr. Corado. Last OV in November no changes made to regimen. F/u in 8 months. Due for flu vaccine today. Past medical history, appointments, medications, allergies reviewed. Previous Medical History PAST MEDICAL HISTORY Diagnosis Date - Acute gastritis without mention of hemorrhage - Acute peptic ulcer - Anxiety - ASHD (arteriosclerotic heart disease) Dr. Corado - Benign neoplasm of colon - Carpal tunnel syndrome - COPD (chronic obstructive pulmonary disease) (HCC) - Corns and callosities 02/11/2010 - Dermatophytosis of nail 02/11/2010 - Diabetes mellitus (HCC) - Diaphragmatic hernia without mention of obstruction or gangrene - Diastolic CHF (HCC) - Eczema - External hemorrhoids without mention of complication - Hirsutism 10/21/2010 - Hyperlipidemia - Hypertension - Internal hemorrhoids without mention of complication - Lung cancer (HCC) 09/[address] Lizarraga. Stage I squamous cell s/p radiation - Multinodular thyroid benign - Obesity, unspecified - Overactive bladder Dr. Recio - Postsurgical aortocoronary bypass status triple bypass, aortic valve replacement - Pulmonary hypertension (HCC) - S/P AVR - Seasonal allergies - Squamous cell carcinoma neck, back, leg, left lung - Toe deformity 02/11/2010 Previous Surgical History PAST SURGICAL HISTORY Procedure Laterality Date - CABG, ARTERY-VEIN, THREE 1996 CABG, three grafts, replace heart valve - DELIVERY ONLY x3 - COLONOSCOP W/ OR W/O [facility] SPEC 01/02/2001, 09/21/2005 Colonoscopy - COLONOSCOP W/ OR W/O [facility] SPEC 04/26/06 - EGD W/O OR W/BRUSH/WASH 04/26/06 - EGD W/O OR W/BRUSH/WASH 01/12/1984 EGD with biopsy of antral ulcer - LAPAROSCOPIC CHOLEYCYSTECTOMY 09-06-12 - PAST SURGICAL HISTORY OF skin cancer from knee / benign spot from back - PAST SURGICAL HISTORY OF cataract removal bilateral - TOTAL ABDOM HYSTERECTOMY 1978 for endometriosis, ovaries spared Family History FAMILY HISTORY Problem Relation Age of Onset - Heart Father - Heart Mother - Thyroid Mother Goiter - Diabetes Maternal Grandfather - other (stomach cancer) Sister Adenocarcinoma - Heart Daughter - Colon Cancer Sister 52 Patient Allergies ALLERGIES Allergen Reactions - Advair Diskus [Flut* Other: See Comments CHEST PAIN - Asa [Salicylates] Unknown patient taking coumadin - on low dose ASA for valve dysfunction - Cephalexin Stomach pains-pt. ended up in hospital - Ekg Pads [Other] adhesive - Lisinopril Cough - Nexium [Esomeprazol* Other: See Comments Ineffective - Omeprazole Other: See Comments Ineffective - Tudorza Pressair [A* GI Upset - Ventolin [Albuterol* Other: See Comments Severe shaking, palpitations - Ventolin [Albuterol] Other: See Comments Ventolin MDI does not work, Pro Air works best Current Medications Current Outpatient Prescriptions on File Prior to Visit: COMPOUNDED PRESCRIPTION Home scale for daily weight check. Dx: CHF-diastolic atorvastatin (LIPITOR) 20 mg tablet take 1 tablet by mouth once daily tiZANidine (ZANAFLEX) 4 mg tablet take 1 tablet by mouth once daily at bedtime if needed ferrous sulfate 325 mg (65 mg iron) tablet take 1 tablet by mouth twice a day with meals metFORMIN ER (GLUCOPHAGE XR) 500 mg 24 hr tablet take 2 tablets by mouth twice a day oxybutynin ER (DITROPAN XL) 10 mg 24 hr tablet take 1 tablet by mouth once daily amLODIPine (NORVASC) 5 mg tablet Take 1 tablet by mouth once daily. mupirocin (BACTROBAN) 2 % ointment Apply 1 application to affected area three times daily. Location: Inside nose albuterol HFA (PROAIR HFA) 90 mcg/actuation inhaler Inhale 2 Puffs as instructed every 4 hours as needed. polyethylene glycol 3350 (MIRALAX, GLYCOLAX) 17 gram/dose powder Take 17 g by mouth once daily. dissolve in water. aspirin, enteric coated (ASPIRIN, ENTERIC COATED) 81 mg EC tablet take 1 tablet by mouth once daily warfarin (COUMADIN) 1 mg tablet Take 1 tablet by mouth once daily. atenolol (TENORMIN) 100 mg tablet take 1 tablet by mouth once daily warfarin (COUMADIN) 6 mg tablet TAKE 7 MG ON Monday AND MONDAY, TAKE 1 TABLET (6 MG) ON ALL OTHER DAYS, TAKE 6 MG AND 1 MG TAB TABLET TO MAKE 7 MG sertraline (ZOLOFT) 100 mg tablet take 1 tablet by mouth once daily isosorbide mononitrate ER (IMDUR) 30 mg 24 hr tablet Take 3 tablets by mouth once daily. FREESTYLE LITE STRIPS test strip TEST twice a day FREESTYLE LANCETS 28 gauge misc TEST twice a day loratadine (CLARITIN) 10 mg tablet Take 1 tablet by mouth once daily. lansoprazole (PREVACID) 30 mg capsule Take 1 capsule by mouth twice daily before meals (0600/1600). glipiZIDE XL (GLUCOTROL XL) 10 mg 24 hr tablet Take 1 tablet by mouth once daily. losartan (COZAAR) 100 mg tablet take 1 tablet by mouth once daily diclofenac sodium (VOLTAREN) 1 % topical gel Apply 2 g to affected area twice daily as needed. Both heels Leg Brace (KNEE SUPPORT BRACE) misc 1 Each continuous. DX: S89.92XA furosemide (LASIX) 20 mg tablet take 1 tablet by mouth once daily Leg Brace (KNEE SUPPORT BRACE) misc 1 Each continuous. warfarin (COUMADIN) 6 mg tablet Take 7 mg Daily nitroglycerin sublingual (NITROSTAT) 0.4 mg SL tablet Dissolve 1 tablet under the tongue as needed. DISSOLVE ON TONGUE FOR CHEST PAIN. IF NO PAIN RELIEF, CALL 911 nystatin (MYCOSTATIN) cream Apply 1 application to affected area twice daily. Groin as needed meclizine (ANTIVERT) 12.5 mg tab Take 1 tablet by mouth three times daily as needed (dizziness). traZODone (DESYREL) 50 mg tablet Take 1 tablet by mouth daily at bedtime. albuterol (PROVENTIL) 5 mg/mL nebu Inhale 0.5 mL as instructed one time only for 1 dose. 1 DOSE NOW - BACK OFFICE. PLACE 0.5 ML PER DROPPER AND 2.5 ML OF NORMAL SALINE INTO RESERVOIR. COMPOUNDED PRESCRIPTION NEBULIZER SUPPLIES, MEDICATION CUP, TUBING FOR USE WITH NEBULIZER MACHINE DX J40.0 >Blood Pressure Cuff Home HOME BP CUFF, DX: HTN LABILE Dx: i10 No current facility-administered medications on file prior to visit. 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 Ex-spouse of 38 years also a smoker. Alcohol use: No Drug use: No Sexual activity: No Comment: Social History Narrative Born [place], moved [facility] 1958 age 9. 4 years in current home[place]. Dry basement. Electric baseboard heat. No central A/C, uses window units. No pets in home currently. Bird and dog not replaced at deaths 13 years ago. SSI and medical card. Watches 2 [employer], 01/07 in 2012. Review of Symptoms REVIEW OF SYSTEMS GENERAL: No weight loss, malaise or fevers RESPIRATORY: Negative for cough, hemoptysis, wheezing, COPD, dyspnea or shortness of breath CARDIOVASCULAR: Negative for chest pain, leg swelling, hypertension, CHF or palpitations GI: No nausea, vomiting, or diarrhea SKIN: Positive for rash: right lateral calf, itching without pain/burning or vesicles. treating with OTC anti itch cream which is helping with symtpoms and rash is improving. EXAM: BP 124/78 (BP Site: Left Arm, BP Position: Sitting, BP Cuff Size: Regular Adult) Pulse 78 Resp 18 Wt 104.8 kg (231 lb) BMI 40.92 kg/m? General Appearance: Well appearing, alert, in no acute distress, well-hydrated, well nourished.. Skin: confluent raised erythematous rash on right lateral calf without vesicles or pustules. Lungs: Lungs clear to auscultation. No wheezing, rhonchi, rales. Heart: RRR without murmur, gallop, or rubs. No ectopy. Abdomen: Abdomen soft=. Bowel sounds normal. Negative CVA tenderness, Positive findings: tenderness mild RUQ, hepatomegaly, liver edge palpable 7 cm below costal margin. Extremities: No deformities, edema, skin discoloration, clubbing or cyanosis. Good capillary refill. . Health Maintenance List INFLUENZA(1) due on 12/23/2017 FECAL OCCULT BLOOD due on 01/09/2018 JEFF/ARB MED PRESCRIBED due on 02/22/2018 STATIN MED ADHERENCE due on 02/22/2018 DIABETES MED ADHERENCE due on 02/22/2018 DILATED RETINAL EXAM due on 03/10/2018 MAMMOGRAM due on 06/16/2018 LDL CHOLESTEROL due on 06/16/2018 DIABETIC FOOT EXAM due on 06/28/2018 HBA1C due on 07/15/2018 ANNUAL PCP TEAM CHRONIC DISEASE VISIT due on 10/24/2018 URINE ALBUMIN:CREATININE RATIO due on 01/15/2019 BP CONTROLLED (<130/80) due on 01/23/2019 DTAP,TDAP,TD(2 - Td) due on 03/08/2021 BONE DENSITY Completed ADULT PREVNAR-13 Completed HEPATITIS C SCREENING Completed PNEUMOVAX AGE 65 AND OVER WITH 5YR LOOKBACK Completed Data reviewed Component Latest Ref Rng AND Units 06/16/2017 01/15/2018 WBC 3.70 - 11.00 k/uL 9.37 6.96 RBC 3.90 - 5.20 m/uL 5.27 (H) 4.41 Hemoglobin 11.5 - 15.5 g/dL 12.5 11.6 Hematocrit 36.0 - 46.0 % 41.2 38.1 MCV 80.0 - 100.0 fL 78.2 (L) 86.4 MCH 26.0 - 34.0 pG 23.7 (L) 26.3 MCHC 30.5 - 36.0 g/dL 30.3 (L) 30.4 (L) RDW-CV 11.5 - 15.0 % 17.3 (H) 15.9 (H) Platelet Count 150 - 400 k/uL 224 193 MPV 9.0 - 12.7 fL 11.6 11.8 Neut% % 77.2 Abs Neut (ANC) 1.45 - 7.50 k/uL 7.23 Lymph% % 12.9 Abs Lymph 1.00 - 4.00 k/uL 1.21 [place]% % 6.8 Abs [place] <0.87 k/uL 0.64 Eosin% % 2.0 Abs Eosin <0.46 k/uL 0.19 Baso% % 1.1 Abs Baso <0.11 k/uL 0.10 Nucleated Reds 0 /100 WBC 0.0 Absolute nRBC <0.01 k/uL <0.01 <0.01 Diff Type Auto Diff Protein, Total 6.3 - 8.0 g/dL 7.1 7.0 Albumin 3.9 - 4.9 g/dL 3.9 4.4 Calcium 8.5 - 10.2 mg/dL 9.3 9.5 Bilirubin, Total 0.2 - 1.3 mg/dL 0.2 0.2 Alkaline Phosphatase 32 - 117 U/L 101 84 AST 13 - 35 U/L 22 31 Glucose 74 - 99 mg/dL 212 (H) 179 (H) BUN 7 - 21 mg/dL 14 19 Creatinine 0.58 - 0.96 mg/dL 0.64 0.60 Sodium 136 - 144 mmol/L 135 (L) 139 Potassium 3.7 - 5.1 mmol/L 4.8 4.2 Chloride 97 - 105 mmol/L 101 100 CO2 22 - 30 mmol/L 22 23 Anion Gap 9 - 18 mmol/L 12 16 ALT 7 - 38 U/L 31 30 eGFR- >60 >60 eGFR-All Other Races . >60 >60 Cholesterol, Total <200 mg/dL 143 Triglyceride <150 mg/dL 222 (H) HDL Cholesterol >39 mg/dL 27 (L) LDL Cholesterol <100 mg/dL 72 Non HDL Cholesterol <130 mg/dL 116 Fasting Time hrs 14 VLDL Cholesterol <30 mg/dL 44 (H) TC:HDL Ratio <5.10 5.30 (H) LDL:HDL Ratio <2.54 2.67 (H) Creatinine, Ur Random (UCRR) 20 - 300 mg/dL 91.7 Albumin, Urine Random 0.0 - 23.0 mg/L 16.6 Albumin/Creat Ratio 0 - 30 mg/g 18 Hemoglobin A1C 4.3 - 5.6 % 8.5 (H) 6.8 (H) Estimated Average Glucose mg/dL 197 148 PT Sec 9.7 - 13.0 sec 29.3 (H) PT INR 0.9 - 1.3 3.0 (H) Component Latest Ref Rng AND Units 01/24/2018 Glucose, Urine Neg mg/dL neg Bilirubin, Urine Neg neg Ketones, Urine Neg neg Specific [place], Ur 1.005 - 1.030 1.020 Hemoglobin/Blood,Ur Neg [id number]-xdru-[id number] pH, Urine 4.5 - 8.0 5.0 Protein, Urine Neg mg/dL neg Urobilinogen, Urine Normal (<1.1) EU normal Nitrites Neg neg Leukocytes Neg trace Color/Appearance comment: yellow/clear Quality Check yes/no Yes ASSESSMENT/PLAN: 1. Type 2 diabetes mellitus without complication, without long-term current use of insulin (HCC) - ICD9: 250.00, ICD10: E11.9 (primary diagnosis) Controlled. - Continue current medications - Blood glucose monitoring on a once a day schedule - Encouraged regular aerobic exercise and weight loss - Daily Asprin therapy recommended - Follow up in 6 months, sooner should any other issues arise. 2. ASHD (arteriosclerotic heart disease) - ICD9: 414.00, ICD10: I25.10 Asymptomatic. Will refill nitro. Continue current regimen. F/u with cardiology as scheduled. - NITROGLYCERIN 0.4 MG SUBLINGUAL TABLET 3. Squamous cell carcinoma of left lung (HCC) - ICD9: 162.9, ICD10: C34.92 Lesions resolved on last CT. Will follow up oncology recommendations in 6 months. 4. Nausea without vomiting - ICD9: 787.02, ICD10: R11.0 Suspect 2/2 hiatal hernia and large meals. Will have patient eat smaller meals throughout the day ,work on weight loss, and continue current regimen. 5. Gastroesophageal reflux disease, esophagitis presence not specified - ICD9: 530.81, ICD10: K21.9 - Continue treatment with Prevacid 30 mg QD 6. Dermatitis - ICD9: 692.9, ICD10: L30.9 - Topical steriod tx with OTC 1% Hydrocortisone cream - Anti itch therapy of OTC 1% Hydrocortisone cream recommended prn - discussed skin care of rash - follow up if symptoms persist or worsen. 7. Hiatal hernia - ICD9: 553.3, ICD10: K44.9 See above 8. RUQ fullness - ICD9: 789.9, ICD10: R19.8 Suspect fatty liver disease as noted on CT chest yesterday. Obtain US to confirm. Normal LFTs recently. Will call with results. - US ABD RT UPPER QUADRANT 9. Dark brown urine - ICD9: 791.9, ICD10: R82.998 UA shows trace leuks and WBC, send for culture, push PO fluids. - UA DIP B/O - URINE CULTURE 10. Screening for colon cancer - ICD9: V76.51, ICD10: Z12.11 - FECAL OCCULT BLOOD TEST 11. Need for vaccination - ICD9: V05.9, ICD10: Z23 - INFLUENZA SEASONAL HIGH DOSE AGE 65+ MD Keri Curiel MD 01/24/2018 3:23 PM Signed 67 year old female here for INACTIVATED INFLUENZA VACCINE. [id number] Season Patient is identified by name and date of : Yes [] CONTRAINDICATIONS color enhanced section Age less than 6 months? No Allergy to eggs, chicken, chicken feathers, or chicken dander? No Allergy to thimerosal (a preservative) or formaldehyde, gelatin? No History of severe reaction to any vaccine component or a previous dose of influenza vaccination? No History of Guillain-[place] Syndrome within 6 weeks after a previous influenza vaccine? No Patient is not moderately or severely ill? No Current temperature greater or equal to 100.4F? No History of Bone Marrow Transplant prior 6 months or solid organ transplant in the past 3 months ? No History of fainting after a prior injection or medical procedure? No- ? If patient has fainted in the past, the CDC recommends sitting or lying down for 15 minutes after the vaccination. [] VERIFICATION color enhanced section Was the answer Yes for any of the above contraindications? No contraindications present. Acceptable to proceed with vaccine. Patient/guardian agrees the above answers are true to the best of their knowledge? Yes Flu vaccine information sheet given? Yes See immunization activity in [facility] for details of immunizations adminstered today. Patient age: [age] year old For The [id number] Flu Season 6-35 months old: Fluzone 0.25 ml - IM (Preservative Free) 3 years of age: Fluzone 0.5 ml - IM (Preservative Free) 3 years and older: Fluzone 0.5 ml- IM-(with Preservatives) 65+ years old: 2-49 years old Fluzone High-Dose 0.5 ml - IM (Preservative Free) FLUMIST- intranasal REMEMBER: If patient is less than 9 years of age and this is the first vaccine of Influenza to be received in any flu season, they should receive a second dose in one months time. Mary Weber 01/24/2018 3:15 PM Signed Urine Dip: Had trace leukocytes, results were put in with no trace of leukocytes this is incorrect. Mary Weber Referring Provider: KERI GAMEZ) [[id number]] Allergies As of Date: 01/24/2018 Noted Allergy Reaction ADVAIR DISKUS (FLUTICASONE-SALMET*05/16/2011 14 - Other: See Comments Comments: CHEST PAIN ASA (SALICYLATES) 05/10/2005 16 - Unknown Comments: patient taking coumadin - on low dose ASA for valve dysfunction CEPHALEXIN 02/21/2008 Comments: Stomach pains-pt. ended up in hospital EKG PADS [Other] 05/10/2005 Comments: adhesive LISINOPRIL 07/03/2014 3 - Cough NEXIUM (ESOMEPRAZOLE MAGNESIUM) 01/26/2016 14 - Other: See Comments Comments: Ineffective OMEPRAZOLE 01/26/2016 14 - Other: See Comments Comments: Ineffective TUDORZA PRESSAIR (ACLIDINIUM BROM*01/26/2016 8 - GI Upset VENTOLIN (ALBUTEROL SULFATE) 10/24/2017 14 - Other: See Comments Comments: Severe shaking, palpitations VENTOLIN (ALBUTEROL) 01/26/2016 14 - Other: See Comments Comments: Ventolin MDI does not work, Pro Air works best Date Reviewed: 01/24/2018 Reviewed by: Mary Weber - Fully Assessed Reason for Visit: Recheck [92] Cmt: pt complains of nausea for 2-3 months Imm/Inj [58] Cmt: Flu Vaccine Reason For Visit History Recorded Primary Visit Diagnosis:Type 2 diabetes mellitus without complication, without long-term current use of insulin (HCC) [E11.9] Other Visit Diagnoses:ASHD (arteriosclerotic heart disease) [I25.10] Squamous cell carcinoma of left lung (HCC) [C34.92] Nausea without vomiting [R11.0] Gastroesophageal reflux disease, esophagitis presence not specified [K21.9] Dermatitis [L30.9] Hiatal hernia [K44.9] RUQ fullness [R19.8] Dark brown urine [R82.998] Screening for colon cancer [Z12.11] Need for vaccination [Z23] Order(s):INFLUENZA SEASONAL HIGH DOSE AGE 65+ [[id number]] Order #: [id number] nitroglycerin sublingual (NITROSTAT) 0.4 mg SL tabletDissolve 1 tablet under the tongue as needed. DISSOLVE ON TONGUE FOR CHEST PAIN. IF NO PAIN RELIEF, CALL 911Disp: 25 tabletRfl: 1 FECAL OCCULT BLOOD TEST [SQIFOBT] Order #: [id number] FUTURE US ABD RT UPPER QUADRANT [[id number]] Order #: [id number] FUTURE UA DIP B/O [[id number]] Order #: [id number] URINE CULTURE [SQURCUL] Order #: [id number]. #:[id number] Prescriptions as of 01/24/2018 Sig: NITROGLYCERIN 0.4 MG SUBLINGU* Dissolve 1 tablet under the t* COMPOUNDED PRESCRIPTION Home scale for daily weight c* ATORVASTATIN 20 MG TABLET take 1 tablet by mouth once d* TIZANIDINE 4 MG TABLET take 1 tablet by mouth once d* FERROUS SULFATE 325 MG (65 MG* take 1 tablet by mouth twice * METFORMIN ER 500 MG TABLET,EX* take 2 tablets by mouth twice* OXYBUTYNIN CHLORIDE ER 10 MG * take 1 tablet by mouth once d* AMLODIPINE 5 MG TABLET Take 1 tablet by mouth once d* MUPIROCIN 2 % TOPICAL OINTMENT Apply 1 application to affect* ALBUTEROL SULFATE HFA 90 MCG/* Inhale 2 Puffs as instructed * POLYETHYLENE GLYCOL 3350 17 G* Take 17 g by mouth once daily* ASPIRIN 81 MG TABLET,DELAYED * take 1 tablet by mouth once d* WARFARIN 1 MG TABLET Take 1 tablet by mouth once d* ATENOLOL 100 MG TABLET take 1 tablet by mouth once d* WARFARIN 6 MG TABLET TAKE 7 MG ON Monday* SERTRALINE 100 MG TABLET take 1 tablet by mouth once d* ISOSORBIDE MONONITRATE ER 30 * Take 3 tablets by mouth once * FREESTYLE LITE STRIPS TEST twice a day FREESTYLE LANCETS 28 GAUGE TEST twice a day LORATADINE 10 MG TABLET Take 1 tablet by mouth once d* LANSOPRAZOLE 30 MG CAPSULE,DE* Take 1 capsule by mouth twice* GLIPIZIDE ER 10 MG TABLET, EX* Take 1 tablet by mouth once d* LOSARTAN 100 MG TABLET take 1 tablet by mouth once d* DICLOFENAC 1 % TOPICAL GEL Apply 2 g to affected area tw* LEG BRACE 1 Each continuous. DX: S89.92* FUROSEMIDE 20 MG TABLET take 1 tablet by mouth once d* LEG BRACE 1 Each continuous. WARFARIN 6 MG TABLET Take 7 mg Daily NYSTATIN 100,000 UNIT/GRAM TO* Apply 1 application to affect* MECLIZINE 12.5 MG TABLET Take 1 tablet by mouth three * TRAZODONE 50 MG TABLET Take 1 tablet by mouth daily * ALBUTEROL SULFATE CONCENTRATE* Inhale 0.5 mL as instructed o* COMPOUNDED PRESCRIPTION NEBULIZER SUPPLIES, MEDICATIO* COMPOUNDED PRESCRIPTION HOME BP CUFF, DX: HTN LABILE * Problem List As Of Date 01/24/2018 Noted Resolved AORTOCORONARY BYPASS STATUS [Z95.1] More... OVERWEIGHT [E66.9] 05/08/2015 ASHD (arteriosclerotic heart disease) [I25.10] INVALID FOR* More... DIABETES MELLITUS TYPE II-UNCOMPL [E11.9] INVALID FOR*02/12/2014 More... HYPERLIPIDEMIA NEC/NOS [E78.5] INVALID FOR*07/24/2015 More... Hematuria [599.7] INVALID FOR*07/24/2015 More... History of mechanical aortic valve replacement *INVALID FOR* More... Abdominal pain, unspecified site [R10.9] INVALID FOR*05/08/2015 Acute gastritis without mention of hemorrhage [*INVALID FOR*01/26/2016 Esophageal reflux [K21.9] INVALID FOR* More... Headache(784.0) [R51] INVALID FOR*01/26/2016 Bronchitis Recurrent [J40] INVALID FOR*03/21/2017 Hallux valgus (acquired) [M20.10] INVALID FOR*07/24/2015 Pain in limb [M79.609] INVALID FOR*01/26/2016 Goiter [E04.9] INVALID FOR* S/P AVR [Z95.2] INVALID FOR*01/26/2016 Multinodular thyroid [E04.2] INVALID FOR* Emphysema of lung (HCC) [J43.9] More... Hyperlipemia [E78.5] INVALID FOR* DM type 2 (diabetes mellitus, type 2) (HCC) [E1*INVALID FOR*05/08/2015 Hematuria [R31.9] INVALID FOR*10/23/2015 Smoking [F17.200] INVALID FOR*10/23/2015 Chronic anticoagulation [Z79.01] INVALID FOR* OAB (overactive bladder) [N32.81] INVALID FOR* More... Frequency of urination [R35.0] INVALID FOR*01/26/2016 Hypertension goal BP (blood pressure) < 140/90 *INVALID FOR* More... Diabetes mellitus type 2, uncontrolled, without*INVALID FOR*03/21/2017 More... Nicole rash of groin [B37.89] INVALID FOR* More... Stress at home [F43.9] INVALID FOR* Insomnia [G47.00] INVALID FOR* Financial difficulties [Z59.8] INVALID FOR* Obesity, Class III, BMI >= 40 (morbid obesity) *INVALID FOR* Hemoptysis [R04.2] INVALID FOR* Priority: A More... 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 Eczema [L30.9] Diabetes mellitus (HCC) [E11.9] COPD (chronic obstructive pulmonary disease) (H* Diastolic CHF (HCC) [I50.30] Visit Notes: >> Mary Tia MonJan 24, 2018 3:13 PM Status: Signed Urine Dip: Had trace leukocytes, results were put in with no trace of leukocytes this is incorrect. Mary Weber Prescriptions ordered this encounter Disp Refills Start End NITROGLYCERIN 0.4 MG SUBLINGUAL TABL* 25 t* 1 01/24/2018 Route: SUBLINGUAL Sig: Dissolve 1 tablet under the tongue as needed. DISSOLVE ON TONGUE FOR CHEST PAIN. IF NO PAIN RELIEF, CALL 911 Medications Discontinued During This Encounter nitroglycerin sublingual (NITROSTAT)* 25 t* 1 11/03/2016 01/24/2018 Route: SUBLINGUAL Sig: Dissolve 1 tablet under the tongue as needed. DISSOLVE ON TONGUE FOR CHEST PAIN. IF NO PAIN RELIEF, CALL 911 Disc: Reason for discontinue is not on file. Encounter Status:Closed by KERI GAMEZ MD on 01/24/18 PROGRESS Observed: 01/24/2018 Status: COMPLETED Source: [place] 1:39 PM [facility] [place] REPOSITORY HNO ID: [id number] Author: Keri Mo) Vera Service: (none) Author Type: Physician Type: Progress Notes Filed: 01/24/2018 3:23 PM Note Text: Chief Complaint Patient presents with: Recheck: pt complains of nausea for 2-3 months Imm/Inj: Flu Vaccine HPI Flavia Case is a 67 year old female who presents here today for 3 month follow up. Complaining today of nausea without vomiting intermittently over the last 2-3 months. Symptoms occur 2-3 times per week. Thinks symptoms occur when she eats a big meal. Taking prevacid as prescribed. Admits to urinary urgency and dark urine. Denies abdominal pain, GERD, flank pain, hematuria, frequency, dysuria. DIABETES MELLITUS: Ms. Case was last seen 3 months ago. Since our last visit she denies excessive thirst or increased frequency of urination, numbness, tingling or pain in extremities, new or unusual visual symptoms and low sugar/hypoglycemic reactions. Follows a diabetic diet most of the time. She is not compliant with medication(s) but is tolerating med(s) without any side effects. She reports checking her glucose on a once a day schedule with sugars in the fasting 140-160 range. Patient's last HgA1C was Hemoglobin A1C (%) Date Value 01/15/2018 6.8 10/03/2017 7.7 ) Last Ophthalmology exam was within the past 12 months Last Podiatry exam was within the past 12 months Seen yesterday by oncology Dr. Lizarraga and told that she does not need to undergo any further treatment for lung cancer at this time as CT yesterday showed no further identifiable lesions, just post radiation changes. Recommended follow up in 6 months. ASHD: Stable. patient following up with Dr. Corado. Last OV in November no changes made to regimen. F/u in 8 months. Due for flu vaccine today. Past medical history, appointments, medications, allergies reviewed. Previous Medical History PAST MEDICAL HISTORY Diagnosis Date - Acute gastritis without mention of hemorrhage - Acute peptic ulcer - Anxiety - ASHD (arteriosclerotic heart disease) Dr. Corado - Benign neoplasm of colon - Carpal tunnel syndrome - COPD (chronic obstructive pulmonary disease) (HCC) - Corns and callosities 02/11/2010 - Dermatophytosis of nail 02/11/2010 - Diabetes mellitus (HCC) - Diaphragmatic hernia without mention of obstruction or gangrene - Diastolic CHF (HCC) - Eczema - External hemorrhoids without mention of complication - Hirsutism 10/21/2010 - Hyperlipidemia - Hypertension - Internal hemorrhoids without mention of complication - Lung cancer (HCC) 09/[address] Lizarraga. Stage I squamous cell s/p radiation - Multinodular thyroid benign - Obesity, unspecified - Overactive bladder Dr. Recio - Postsurgical aortocoronary bypass status triple bypass, aortic valve replacement - Pulmonary hypertension (HCC) - S/P AVR - Seasonal allergies - Squamous cell carcinoma neck, back, leg, left lung - Toe deformity 02/11/2010 Previous Surgical History PAST SURGICAL HISTORY Procedure Laterality Date - CABG, ARTERY-VEIN, THREE 1996 CABG, three grafts, replace heart valve - DELIVERY ONLY x3 - COLONOSCOP W/ OR W/O [facility] 01/02/2001, 09/21/2005 Colonoscopy - COLONOSCOP W/ OR W/O [facility] SPEC 04/26/06 - EGD W/O OR W/BRUSH/WASH 04/26/06 - EGD W/O OR W/BRUSH/WASH 01/12/1984 EGD with biopsy of antral ulcer - LAPAROSCOPIC CHOLEYCYSTECTOMY 5-16-13 - PAST SURGICAL HISTORY OF skin cancer from knee / benign spot from back - PAST SURGICAL HISTORY OF cataract removal bilateral - TOTAL ABDOM HYSTERECTOMY 1978 for endometriosis, ovaries spared Family History FAMILY HISTORY Problem Relation Age of Onset - Heart Father - Heart Mother - Thyroid Mother Goiter - Diabetes Maternal Grandfather - other (stomach cancer) Sister Adenocarcinoma - Heart Daughter - Colon Cancer Sister 52 Patient Allergies ALLERGIES Allergen Reactions - Advair Diskus [Flut* Other: See Comments CHEST PAIN - Asa [Salicylates] Unknown patient taking coumadin - on low dose ASA for valve dysfunction - Cephalexin Stomach pains-pt. ended up in hospital - Ekg Pads [Other] adhesive - Lisinopril Cough - Nexium [Esomeprazol* Other: See Comments Ineffective - Omeprazole Other: See Comments Ineffective - Tudorza Pressair [A* GI Upset - Ventolin [Albuterol* Other: See Comments Severe shaking, palpitations - Ventolin [Albuterol] Other: See Comments Ventolin MDI does not work, Pro Air works best Current Medications Current Outpatient Prescriptions on File Prior to Visit: COMPOUNDED PRESCRIPTION Home scale for daily weight check. Dx: CHF-diastolic atorvastatin (LIPITOR) 20 mg tablet take 1 tablet by mouth once daily tiZANidine (ZANAFLEX) 4 mg tablet take 1 tablet by mouth once daily at bedtime if needed ferrous sulfate 325 mg (65 mg iron) tablet take 1 tablet by mouth twice a day with meals metFORMIN ER (GLUCOPHAGE XR) 500 mg 24 hr tablet take 2 tablets by mouth twice a day oxybutynin ER (DITROPAN XL) 10 mg 24 hr tablet take 1 tablet by mouth once daily amLODIPine (NORVASC) 5 mg tablet Take 1 tablet by mouth once daily. mupirocin (BACTROBAN) 2 % ointment Apply 1 application to affected area three times daily. Location: Inside nose albuterol HFA (PROAIR HFA) 90 mcg/actuation inhaler Inhale 2 Puffs as instructed every 4 hours as needed. polyethylene glycol 3350 (MIRALAX, GLYCOLAX) 17 gram/dose powder Take 17 g by mouth once daily. dissolve in water. aspirin, enteric coated (ASPIRIN, ENTERIC COATED) 81 mg EC tablet take 1 tablet by mouth once daily warfarin (COUMADIN) 1 mg tablet Take 1 tablet by mouth once daily. atenolol (TENORMIN) 100 mg tablet take 1 tablet by mouth once daily warfarin (COUMADIN) 6 mg tablet TAKE 7 MG ON Monday AND MONDAY, TAKE 1 TABLET (6 MG) ON ALL OTHER DAYS, TAKE 6 MG AND 1 MG TAB TABLET TO MAKE 7 MG sertraline (ZOLOFT) 100 mg tablet take 1 tablet by mouth once daily isosorbide mononitrate ER (IMDUR) 30 mg 24 hr tablet Take 3 tablets by mouth once daily. FREESTYLE LITE STRIPS test strip TEST twice a day FREESTYLE LANCETS 28 gauge misc TEST twice a day loratadine (CLARITIN) 10 mg tablet Take 1 tablet by mouth once daily. lansoprazole (PREVACID) 30 mg capsule Take 1 capsule by mouth twice daily before meals (0600/1600). glipiZIDE XL (GLUCOTROL XL) 10 mg 24 hr tablet Take 1 tablet by mouth once daily. losartan (COZAAR) 100 mg tablet take 1 tablet by mouth once daily diclofenac sodium (VOLTAREN) 1 % topical gel Apply 2 g to affected area twice daily as needed. Both heels Leg Brace (KNEE SUPPORT BRACE) misc 1 Each continuous. DX: S89.92XA furosemide (LASIX) 20 mg tablet take 1 tablet by mouth once daily Leg Brace (KNEE SUPPORT BRACE) misc 1 Each continuous. warfarin (COUMADIN) 6 mg tablet Take 7 mg Daily nitroglycerin sublingual (NITROSTAT) 0.4 mg SL tablet Dissolve 1 tablet under the tongue as needed. DISSOLVE ON TONGUE FOR CHEST PAIN. IF NO PAIN RELIEF, CALL 911 nystatin (MYCOSTATIN) cream Apply 1 application to affected area twice daily. Groin as needed meclizine (ANTIVERT) 12.5 mg tab Take 1 tablet by mouth three times daily as needed (dizziness). traZODone (DESYREL) 50 mg tablet Take 1 tablet by mouth daily at bedtime. albuterol (PROVENTIL) 5 mg/mL nebu Inhale 0.5 mL as instructed one time only for 1 dose. 1 DOSE NOW - BACK OFFICE. PLACE 0.5 ML PER DROPPER AND 2.5 ML OF NORMAL SALINE INTO RESERVOIR. COMPOUNDED PRESCRIPTION NEBULIZER SUPPLIES, MEDICATION CUP, TUBING FOR USE WITH NEBULIZER MACHINE DX J40.0 >Blood Pressure Cuff Home HOME BP CUFF, DX: HTN LABILE Dx: i10 No current facility-administered medications on file prior to visit. 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 Ex-spouse of 38 years also a smoker. Alcohol use: No Drug use: No Sexual activity: No Comment: Social History Narrative Born [place], moved [facility] 1958 age 9. 4 years in current home[place]. Dry basement. Electric baseboard heat. No central A/C, uses window units. No pets in home currently. Bird and dog not replaced at deaths 13 years ago. SSI and medical card. [employer], 01/07 in 2012. Review of Symptoms REVIEW OF SYSTEMS GENERAL: No weight loss, malaise or fevers RESPIRATORY: Negative for cough, hemoptysis, wheezing, COPD, dyspnea or shortness of breath CARDIOVASCULAR: Negative for chest pain, leg swelling, hypertension, CHF or palpitations GI: No nausea, vomiting, or diarrhea SKIN: Positive for rash: right lateral calf, itching without pain/burning or vesicles. treating with OTC anti itch cream which is helping with symtpoms and rash is improving. EXAM: BP 124/78 (BP Site: Left Arm, BP Position: Sitting, BP Cuff Size: Regular Adult) Pulse 78 Resp 18 Wt 104.8 kg (231 lb) BMI 40.92 kg/m? General Appearance: Well appearing, alert, in no acute distress, well-hydrated, well nourished.. Skin: confluent raised erythematous rash on right lateral calf without vesicles or pustules. Lungs: Lungs clear to auscultation. No wheezing, rhonchi, rales. Heart: RRR without murmur, gallop, or rubs. No ectopy. Abdomen: Abdomen soft=. Bowel sounds normal. Negative CVA tenderness, Positive findings: tenderness mild RUQ, hepatomegaly, liver edge palpable 7 cm below costal margin. Extremities: No deformities, edema, skin discoloration, clubbing or cyanosis. Good capillary refill. . Health Maintenance List INFLUENZA(1) due on 12/23/2017 FECAL OCCULT BLOOD due on 01/09/2018 JEFF/ARB MED PRESCRIBED due on 02/22/2018 STATIN MED ADHERENCE due on 02/22/2018 DIABETES MED ADHERENCE due on 02/22/2018 DILATED RETINAL EXAM due on 03/10/2018 MAMMOGRAM due on 06/16/2018 LDL CHOLESTEROL due on 06/16/2018 DIABETIC FOOT EXAM due on 06/28/2018 HBA1C due on 07/15/2018 ANNUAL PCP TEAM CHRONIC DISEASE VISIT due on 10/24/2018 URINE ALBUMIN:CREATININE RATIO due on 01/15/2019 BP CONTROLLED (<130/80) due on 01/23/2019 DTAP,TDAP,TD(2 - Td) due on 03/08/2021 BONE DENSITY Completed ADULT PREVNAR-13 Completed HEPATITIS C SCREENING Completed PNEUMOVAX AGE 65 AND OVER WITH 5YR LOOKBACK Completed Data reviewed Component Latest Ref Rng AND Units 06/16/2017 01/15/2018 WBC 3.70 - 11.00 k/uL 9.37 6.96 RBC 3.90 - 5.20 m/uL 5.27 (H) 4.41 Hemoglobin 11.5 - 15.5 g/dL 12.5 11.6 Hematocrit 36.0 - 46.0 % 41.2 38.1 MCV 80.0 - 100.0 fL 78.2 (L) 86.4 MCH 26.0 - 34.0 pG 23.7 (L) 26.3 MCHC 30.5 - 36.0 g/dL 30.3 (L) 30.4 (L) RDW-CV 11.5 - 15.0 % 17.3 (H) 15.9 (H) Platelet Count 150 - 400 k/uL 224 193 MPV 9.0 - 12.7 fL 11.6 11.8 Neut% % 77.2 Abs Neut (ANC) 1.45 - 7.50 k/uL 7.23 Lymph% % 12.9 Abs Lymph 1.00 - 4.00 k/uL 1.21 [place]% % 6.8 Abs [place] <0.87 k/uL 0.64 Eosin% % 2.0 Abs Eosin <0.46 k/uL 0.19 Baso% % 1.1 Abs Baso <0.11 k/uL 0.10 Nucleated Reds 0 /100 WBC 0.0 Absolute nRBC <0.01 k/uL <0.01 <0.01 Diff Type Auto Diff Protein, Total 6.3 - 8.0 g/dL 7.1 7.0 Albumin 3.9 - 4.9 g/dL 3.9 4.4 Calcium 8.5 - 10.2 mg/dL 9.3 9.5 Bilirubin, Total 0.2 - 1.3 mg/dL 0.2 0.2 Alkaline Phosphatase 32 - 117 U/L 101 84 AST 13 - 35 U/L 22 31 Glucose 74 - 99 mg/dL 212 (H) 179 (H) BUN 7 - 21 mg/dL 14 19 Creatinine 0.58 - 0.96 mg/dL 0.64 0.60 Sodium 136 - 144 mmol/L 135 (L) 139 Potassium 3.7 - 5.1 mmol/L 4.8 4.2 Chloride 97 - 105 mmol/L 101 100 CO2 22 - 30 mmol/L 22 23 Anion Gap 9 - 18 mmol/L 12 16 ALT 7 - 38 U/L 31 30 eGFR- >60 >60 eGFR-All Other Races . >60 >60 Cholesterol, Total <200 mg/dL 143 Triglyceride <150 mg/dL 222 (H) HDL Cholesterol >39 mg/dL 27 (L) LDL Cholesterol <100 mg/dL 72 Non HDL Cholesterol <130 mg/dL 116 Fasting Time hrs 14 VLDL Cholesterol <30 mg/dL 44 (H) TC:HDL Ratio <5.10 5.30 (H) LDL:HDL Ratio <2.54 2.67 (H) Creatinine, Ur Random (UCRR) 20 - 300 mg/dL 91.7 Albumin, Urine Random 0.0 - 23.0 mg/L 16.6 Albumin/Creat Ratio 0 - 30 mg/g 18 Hemoglobin A1C 4.3 - 5.6 % 8.5 (H) 6.8 (H) Estimated Average Glucose mg/dL 197 148 PT Sec 9.7 - 13.0 sec 29.3 (H) PT INR 0.9 - 1.3 3.0 (H) Component Latest Ref Rng AND Units 01/24/2018 Glucose, Urine Neg mg/dL neg Bilirubin, Urine Neg neg Ketones, Urine Neg neg Specific [place], Ur 1.005 - 1.030 1.020 Hemoglobin/Blood,Ur Neg [id number] pH, Urine 4.5 - 8.0 5.0 Protein, Urine Neg mg/dL neg Urobilinogen, Urine Normal (<1.1) EU normal Nitrites Neg neg Leukocytes Neg trace Color/Appearance comment: yellow/clear Quality Check yes/no Yes ASSESSMENT/PLAN: 1. Type 2 diabetes mellitus without complication, without long-term current use of insulin (HCC) - ICD9: 250.00, ICD10: E11.9 (primary diagnosis) Controlled. - Continue current medications - Blood glucose monitoring on a once a day schedule - Encouraged regular aerobic exercise and weight loss - Daily Asprin therapy recommended - Follow up in 6 months, sooner should any other issues arise. 2. ASHD (arteriosclerotic heart disease) - ICD9: 414.00, ICD10: I25.10 Asymptomatic. Will refill nitro. Continue current regimen. F/u with cardiology as scheduled. - NITROGLYCERIN 0.4 MG SUBLINGUAL TABLET 3. Squamous cell carcinoma of left lung (HCC) - ICD9: 162.9, ICD10: C34.92 Lesions resolved on last CT. Will follow up oncology recommendations in 6 months. 4. Nausea without vomiting - ICD9: 787.02, ICD10: R11.0 Suspect 2/2 hiatal hernia and large meals. Will have patient eat smaller meals throughout the day ,work on weight loss, and continue current regimen. 5. Gastroesophageal reflux disease, esophagitis presence not specified - ICD9: 530.81, ICD10: K21.9 - Continue treatment with Prevacid 30 mg QD 6. Dermatitis - ICD9: 692.9, ICD10: L30.9 - Topical steriod tx with OTC 1% Hydrocortisone cream - Anti itch therapy of OTC 1% Hydrocortisone cream recommended prn - discussed skin care of rash - follow up if symptoms persist or worsen. 7. Hiatal hernia - ICD9: 553.3, ICD10: K44.9 See above 8. RUQ fullness - ICD9: 789.9, ICD10: R19.8 Suspect fatty liver disease as noted on CT chest yesterday. Obtain US to confirm. Normal LFTs recently. Will call with results. - US ABD RT UPPER QUADRANT 9. Dark brown urine - ICD9: 791.9, ICD10: R82.998 UA shows trace leuks and WBC, send for culture, push PO fluids. - UA DIP B/O - URINE CULTURE 10. Screening for colon cancer - ICD9: V76.51, ICD10: Z12.11 - FECAL OCCULT BLOOD TEST 11. Need for vaccination - ICD9: V05.9, ICD10: Z23 - INFLUENZA SEASONAL HIGH DOSE AGE 65+ Keri Gamez MD CNPTOUTREA Observed: 01/24/2018 Status: COMPLETED Source: ARARAT 12:00 AM [facility] REPOSITORY Patient Outreach (FAMPWS) FLAVIA CASE ([id number]) 1950 F Date Time Provider Department 01/24/18 HIMANSHU AQUINO (RN) FAMPWS During your visit today, we recorded the following information about you: Himanshu Aquino RN 01/24/2018 2:55 PM Signed PRIMARY CARE COORDINATION IN OFFICE VISIT WITH PCP Patient has been identified by name and date of . PCP Assessment/Plan: Reviewed PCP plan with patient using Te[facility] Back PCP concerned about abdominal fullness. Will have pt get abdominal US today PCC Plan of Care: PCC Interventions: Gave patient printed script for home scale. Instructed to go to [facility] and have them check with insurance if they will pay for scale. If they won't pay let PCC know, pt verbalized understanding. Next Office Visit: Visit date not found Plan For Next Call: 3 weeks Himanshu Aquino RN January 24, 2018 Allergies As of Date: 01/24/2018 Noted Allergy Reaction ADVAIR DISKUS (FLUTICASONE-SALMET*05/16/2011 14 - Other: See Comments Comments: CHEST PAIN ASA (SALICYLATES) 05/10/2005 16 - Unknown Comments: patient taking coumadin - on low dose ASA for valve dysfunction CEPHALEXIN 02/21/2008 Comments: Stomach pains-pt. ended up in hospital EKG PADS [Other] 05/10/2005 Comments: adhesive LISINOPRIL 07/03/2014 3 - Cough NEXIUM (ESOMEPRAZOLE MAGNESIUM) 01/26/2016 14 - Other: See Comments Comments: Ineffective OMEPRAZOLE 01/26/2016 14 - Other: See Comments Comments: Ineffective TUDORZA PRESSAIR (ACLIDINIUM BROM*01/26/2016 8 - GI Upset VENTOLIN (ALBUTEROL SULFATE) 10/24/2017 14 - Other: See Comments Comments: Severe shaking, palpitations VENTOLIN (ALBUTEROL) 01/26/2016 14 - Other: See Comments Comments: Ventolin MDI does not work, Pro Air works best Date Reviewed: 01/24/2018 Reviewed by: Mary Weber - Fully Assessed Reason for Visit: Crown Buffer-In Office Visit [2824] Prescriptions as of 01/24/2018 Sig: NITROGLYCERIN 0.4 MG SUBLINGU* Dissolve 1 tablet under the t* COMPOUNDED PRESCRIPTION Home scale for daily weight c* ATORVASTATIN 20 MG TABLET take 1 tablet by mouth once d* TIZANIDINE 4 MG TABLET take 1 tablet by mouth once d* FERROUS SULFATE 325 MG (65 MG* take 1 tablet by mouth twice * METFORMIN ER 500 MG TABLET,EX* take 2 tablets by mouth twice* OXYBUTYNIN CHLORIDE ER 10 MG * take 1 tablet by mouth once d* AMLODIPINE 5 MG TABLET Take 1 tablet by mouth once d* MUPIROCIN 2 % TOPICAL OINTMENT Apply 1 application to affect* ALBUTEROL SULFATE HFA 90 MCG/* Inhale 2 Puffs as instructed * POLYETHYLENE GLYCOL 3350 17 G* Take 17 g by mouth once daily* ASPIRIN 81 MG TABLET,DELAYED * take 1 tablet by mouth once d* WARFARIN 1 MG TABLET Take 1 tablet by mouth once d* ATENOLOL 100 MG TABLET take 1 tablet by mouth once d* WARFARIN 6 MG TABLET TAKE 7 MG ON Monday* SERTRALINE 100 MG TABLET take 1 tablet by mouth once d* ISOSORBIDE MONONITRATE ER 30 * Take 3 tablets by mouth once * FREESTYLE LITE STRIPS TEST twice a day FREESTYLE LANCETS 28 GAUGE TEST twice a day LORATADINE 10 MG TABLET Take 1 tablet by mouth once d* LANSOPRAZOLE 30 MG CAPSULE,DE* Take 1 capsule by mouth twice* GLIPIZIDE ER 10 MG TABLET, EX* Take 1 tablet by mouth once d* LOSARTAN 100 MG TABLET take 1 tablet by mouth once d* DICLOFENAC 1 % TOPICAL GEL Apply 2 g to affected area tw* LEG BRACE 1 Each continuous. DX: S89.92* FUROSEMIDE 20 MG TABLET take 1 tablet by mouth once d* LEG BRACE 1 Each continuous. WARFARIN 6 MG TABLET Take 7 mg Daily NYSTATIN 100,000 UNIT/GRAM TO* Apply 1 application to affect* MECLIZINE 12.5 MG TABLET Take 1 tablet by mouth three * TRAZODONE 50 MG TABLET Take 1 tablet by mouth daily * ALBUTEROL SULFATE CONCENTRATE* Inhale 0.5 mL as instructed o* COMPOUNDED PRESCRIPTION NEBULIZER SUPPLIES, MEDICATIO* COMPOUNDED PRESCRIPTION HOME BP CUFF, DX: HTN LABILE * Problem List As Of Date 01/24/2018 Noted Resolved AORTOCORONARY BYPASS STATUS [Z95.1] More... OVERWEIGHT [E66.9] 05/08/2015 ASHD (arteriosclerotic heart disease) [I25.10] INVALID FOR* More... DIABETES MELLITUS TYPE II-UNCOMPL [E11.9] INVALID FOR*02/12/2014 More... HYPERLIPIDEMIA NEC/NOS [E78.5] INVALID FOR*07/24/2015 More... Hematuria [599.7] INVALID FOR*07/24/2015 More... History of mechanical aortic valve replacement *INVALID FOR* More... Abdominal pain, unspecified site [R10.9] INVALID FOR*05/08/2015 Acute gastritis without mention of hemorrhage [*INVALID FOR*01/26/2016 Esophageal reflux [K21.9] INVALID FOR* More... Headache(784.0) [R51] INVALID FOR*01/26/2016 Bronchitis Recurrent [J40] INVALID FOR*03/21/2017 Hallux valgus (acquired) [M20.10] INVALID FOR*07/24/2015 Pain in limb [M79.609] INVALID FOR*01/26/2016 Goiter [E04.9] INVALID FOR* S/P AVR [Z95.2] INVALID FOR*01/26/2016 Multinodular thyroid [E04.2] INVALID FOR* Emphysema of lung (HCC) [J43.9] More... Hyperlipemia [E78.5] INVALID FOR* DM type 2 (diabetes mellitus, type 2) (HCC) [E1*INVALID FOR*05/08/2015 Hematuria [R31.9] INVALID FOR*10/23/2015 Smoking [F17.200] INVALID FOR*10/23/2015 Chronic anticoagulation [Z79.01] INVALID FOR* OAB (overactive bladder) [N32.81] INVALID FOR* More... Frequency of urination [R35.0] INVALID FOR*01/26/2016 Hypertension goal BP (blood pressure) < 140/90 *INVALID FOR* More... Diabetes mellitus type 2, uncontrolled, without*INVALID FOR*03/21/2017 More... Nicole rash of groin [B37.89] INVALID FOR* More... Stress at home [F43.9] INVALID FOR* Insomnia [G47.00] INVALID FOR* Financial difficulties [Z59.8] INVALID FOR* Obesity, Class III, BMI >= 40 (morbid obesity) *INVALID FOR* Hemoptysis [R04.2] INVALID FOR* Priority: A More... 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 Eczema [L30.9] Diabetes mellitus (HCC) [E11.9] COPD (chronic obstructive pulmonary disease) (H* Diastolic CHF (HCC) [I50.30] Encounter Status:Closed by HIMANSHU AQUINO on 01/24/18 PROGRESS Observed: 01/23/2018 Status: COMPLETED Source: ARARAT 3:15 PM [facility] REPOSITORY HNO ID: [id number] Author: Kenn Lizarraga Service: (none) Author Type: Physician Type: Progress Notes Filed: 01/24/2018 12:10 PM Note Text: Radiation Oncology - Follow Up Note PATIENT NAME: Flavia Case PATIENT DIAGNOSIS: 67 year old female with incidentally found PAWAN nodule, medically inoperable [cardiac comorbidity], peripheral, squamous cell CA, T1a[1.3cm, ?SUV 5] ?N0[PET] M0 s/p 34 Gy in 1 fx completed 11/18/16. INTERVAL HISTORY: Ms. Case came for her follow up. She says she is doing well overall. She complaint of cough and SOB. She has history of COPD. She complaints loss of appetite and loss of weight. Other leija she is doing well. CT Scan done today showed(01/23/18) Stable heterogeneous opacity pattern in the left apex, most likely representing post radiation changes, with component of fibrosis presumed. Treated tumor is no longer identifiable. ?No enlarging lymph nodes ALLERGIES Allergen Reactions - Advair Diskus [Flut* Other: See Comments CHEST PAIN - Asa [Salicylates] Unknown patient taking coumadin - on low dose ASA for valve dysfunction - Cephalexin Stomach pains-pt. ended up in hospital - Ekg Pads [Other] adhesive - Lisinopril Cough - Nexium [Esomeprazol* Other: See Comments Ineffective - Omeprazole Other: See Comments Ineffective - Tudorza Pressair [A* GI Upset - Ventolin [Albuterol* Other: See Comments Severe shaking, palpitations - Ventolin [Albuterol] Other: See Comments Ventolin MDI does not work, Pro Air works best MEDICATIONS: COMPOUNDED PRESCRIPTION Home scale for daily weight check. Dx: CHF-diastolic atorvastatin (LIPITOR) 20 mg tablet take 1 tablet by mouth once daily tiZANidine (ZANAFLEX) 4 mg tablet take 1 tablet by mouth once daily at bedtime if needed ferrous sulfate 325 mg (65 mg iron) tablet take 1 tablet by mouth twice a day with meals metFORMIN ER (GLUCOPHAGE XR) 500 mg 24 hr tablet take 2 tablets by mouth twice a day oxybutynin ER (DITROPAN XL) 10 mg 24 hr tablet take 1 tablet by mouth once daily amLODIPine (NORVASC) 5 mg tablet Take 1 tablet by mouth once daily. mupirocin (BACTROBAN) 2 % ointment Apply 1 application to affected area three times daily. Location: Inside nose albuterol HFA (PROAIR HFA) 90 mcg/actuation inhaler Inhale 2 Puffs as instructed every 4 hours as needed. polyethylene glycol 3350 (MIRALAX, GLYCOLAX) 17 gram/dose powder Take 17 g by mouth once daily. dissolve in water. aspirin, enteric coated (ASPIRIN, ENTERIC COATED) 81 mg EC tablet take 1 tablet by mouth once daily warfarin (COUMADIN) 1 mg tablet Take 1 tablet by mouth once daily. atenolol (TENORMIN) 100 mg tablet take 1 tablet by mouth once daily warfarin (COUMADIN) 6 mg tablet TAKE 7 MG ON Monday AND MONDAY, TAKE 1 TABLET (6 MG) ON ALL OTHER DAYS, TAKE 6 MG AND 1 MG TAB TABLET TO MAKE 7 MG sertraline (ZOLOFT) 100 mg tablet take 1 tablet by mouth once daily isosorbide mononitrate ER (IMDUR) 30 mg 24 hr tablet Take 3 tablets by mouth once daily. FREESTYLE LITE STRIPS test strip TEST twice a day FREESTYLE LANCETS 28 gauge misc TEST twice a day loratadine (CLARITIN) 10 mg tablet Take 1 tablet by mouth once daily. lansoprazole (PREVACID) 30 mg capsule Take 1 capsule by mouth twice daily before meals (0600/1600). glipiZIDE XL (GLUCOTROL XL) 10 mg 24 hr tablet Take 1 tablet by mouth once daily. losartan (COZAAR) 100 mg tablet take 1 tablet by mouth once daily diclofenac sodium (VOLTAREN) 1 % topical gel Apply 2 g to affected area twice daily as needed. Both heels Leg Brace (KNEE SUPPORT BRACE) misc 1 Each continuous. DX: S89.92XA furosemide (LASIX) 20 mg tablet take 1 tablet by mouth once daily Leg Brace (KNEE SUPPORT BRACE) misc 1 Each continuous. warfarin (COUMADIN) 6 mg tablet Take 7 mg Daily nitroglycerin sublingual (NITROSTAT) 0.4 mg SL tablet Dissolve 1 tablet under the tongue as needed. DISSOLVE ON TONGUE FOR CHEST PAIN. IF NO PAIN RELIEF, CALL 911 nystatin (MYCOSTATIN) cream Apply 1 application to affected area twice daily. Groin as needed meclizine (ANTIVERT) 12.5 mg tab Take 1 tablet by mouth three times daily as needed (dizziness). traZODone (DESYREL) 50 mg tablet Take 1 tablet by mouth daily at bedtime. albuterol (PROVENTIL) 5 mg/mL nebu Inhale 0.5 mL as instructed one time only for 1 dose. 1 DOSE NOW - BACK OFFICE. PLACE 0.5 ML PER DROPPER AND 2.5 ML OF NORMAL SALINE INTO RESERVOIR. COMPOUNDED PRESCRIPTION NEBULIZER SUPPLIES, MEDICATION CUP, TUBING FOR USE WITH NEBULIZER MACHINE DX J40.0 >Blood Pressure Cuff Home HOME BP CUFF, DX: HTN LABILE Dx: i10 REVIEW OF SYSTEMS: GENERAL: Negative for fevers, chills, or night sweats. HEENT: Negative for sudden vision or hearing changes. NECK: Negative for masses in the neck. RESPIRATORY: see HPI GI: Negative for nausea, vomiting, diarrhea, constipation, blood per rectum, or melena. : Negative for dysuria, hematuria, urgency, frequency or incontinence. MUSCULOSKELETAL: Negative for limitations in movement, pain, or swelling. NEURO: Negative for dizziness, headache, weakness or numbness. PHYSICAL EXAM: VS: BP (!) 114/46 Pulse 61 Temp 37.2 ?C (98.9 ?F) (Oral) Resp 20 Wt 105.7 kg (233 lb) SpO2 95% BMI 41.27 kg/m? KPS: 70 General Appearance: Alert and oriented. No acute distress. HEENT: Sclera anicteric. Neck: Normal ROM. Chest: No respiratory distress. Abdomen: Nondistended. Neuro: No focal deficits. TOXICITY ASSESSMENT CTC3: No ASSESSMENT/PLAN: Clinically doing well. CT demonstrates complete response in the treated tumor. We will see her again in 6 months for followup. Fatimah Enamorado MD Fellow Rad Onc Page: [phone] [facility] STAFF PHYSICAN NOTE OF PERSONAL INVOLVEMENT IN CARE I have personally participated in the cabral components of the case including a review of imaging and agree with the above findings Kenn Lizarraga MD cc: Keri Gamez MD [id number] [place] [address] [place] [id number] [facility] [id number] CNOV Observed: 01/23/2018 Status: COMPLETED Source: ARARAT 2:45 PM [facility] REPOSITORY Office Visit (RADTMN) FLAVIA CASE ([id number]) 1950 F Date Time Provider Department 01/23/18 2:45 PM KENN LIZARRAGA During your visit today, we recorded the following information about you: Temperature Pulse Respiration Blood pressure 98.9 degrees 61/minute 20/minute 114/46 Weight 105.7 kg Jodie Veronica APRN.POINT OF CARE TECHNICIAN 01/24/2018 12:10 PM Signed Cancer Treatment Summary Provided by Jodie Veronica CNP on June 01, 2016 General Information Patient Name: Flavia Case Date of : 1950 Age: 67 Support Contact: Bear Almanzar (daughter) [phone] Background Information Ms. Flavia Case is a 67 year old female, former 72 py smoker (quit 1995) with a pmh significant for COPD, AVR (Coumadin), CAD (s/p 3 vessel CABG in 1996), skin cancer excised from knee, pulmonary HTN, and DM.?On 06/08/2016 CT imaging of her chest for evaluation of her thoracic aorta incidentally identified a 1.3 cm PAWAN nodule, a few 3 mm nodules bilaterally, and innumerable tiny centrilobular nodules throughout both lungs, likely related to small airway disease. Remote granulomatous disease was also seen in the chest and abdomen. PET imaging performed on 09/14/2016 described hypermetabolic uptake associated with the 1.3 x 1.2 cm PAWAN nodule. The additional scattered nodules were below the resolution for PET. CT guided biopsy of the PAWAN lung lesion confirmed non-small cell carcinoma, consistent with squamous cell carcinoma. Pulmonary function testing performed on 11/09/16 reported a FEV1 of?1.16L / 51% and DLCO of 83 % of predicted value. Thoracic Surgery determined patient to be a risk candidate for surgery due to her co morbid health issues.. Care Team Radiation Oncologist: Kenn Lizarraga MD: [phone] Pulmonary Physician: JARRETT Primary Care Physician: Dr. Keri Gamez Cancer Diagnosis Information Diagnosis: Lung Cancer Diagnosis date: 10/20/2016 (CT guided biopsy) Staging Information: Histology: Squamous Cell Carcinoma Stage: IA AJCC TNM (7th edition) stage: [id number] Tumor Size: 1.3 cm Diagnostic Imaging (Date): As documented above Diagnostic Surgical procedure: NA Surgical Pathology: NA TREATMENT REGIMENS PROVIDED AT [facility] Radiation Therapy Radiation Therapy Type Area in Treatment Field Total Dose Total number of fractions (sessions): SBRT PAWAN lung 3400 cGy 1 Start Date: 11/18/2016 End Date: 11/18/2016 Treatment Goal: Curative Treatment on Clinical Trial? No Potential Delayed Side Effects: ? Cough ? Chest wall aching ? Radiation pneumonitis ? Rib fracture (very rare) Response to Treatment: Favorable with no evidence or recurrent disease as of 07/25/2017 CT imaging Post Treatment Care Post treatment Imaging (Date): CT chest without contrast: 01/24/2017, 07/25/2017, scheduled 01/23/2018 Ability to perform activities of daily living has: Remained the same Years since Diagnosis Outpatient Visits Chest Imaging 1-2 Every 3 - 6 months Every 3 - 6 months 3-5 Every 6 months Every 6 months Healthy Lifestyle: ? Continue to NOT smoke ? Minimize alcohol consumption ? Adequate calorie and fluid intake ? Maintain routine follow up with PCP and Manager Respiratory as directed ? Routine exercise as recommended by PCP Potential late effects of treatment(s): ? Radiation Pneumonitis ? Cough ? Chest wall aching ? Rib fracture (very rare) When to call: We encourage you to call with any new concerns or questions. Specifically report any: - Increased cough - Blood tinged sputum - Changes in breathing - Chest Pain Notify your health care team so that we can evaluate your concerns in a timely manner. We routinely do NOT recommend: FDG-PET scans for routine surveillance. Other Concerns: Prevention and Wellness: ? Tobacco Cessation services available upon request ? Follow up with PCP ? [facility] - [phone] Support Services: ? Outside [facility] - [facility] [phone] ? Tobacco Cessation Services Available Upon Request ? [facility] [phone] ([place]) ? [address] [place] [address] ? [facility] [phone] ([place]) If you are experience any financial, insurance, employment, or social issues directly related to your cancer diagnosis and/or treatment: Contact your treatment team or [facility] [place] [phone] so that you can be directed to the appropriate support person. Referrals provided: Discussed and ordered as appropriate during Survivorship Visit. Survivorship Care Provider Contacts: If at any time you have questions or concerns, please do not hesitate to contact any member of your health care team: ? Jodie Veronica CNP at [phone] ? Dr. Kenn Lizarraga at [phone] Treatment plan and follow-up summary given to patient and sent to: PCP: Dr. Keri Gamez via [facility] ? 2008 [employer]. All rights reserved. Important caution: this is a summary document whose purpose is to review the highlights of the cancer treatment for this patient. This does not replace information available in the medical record, a complete medical history provided by the patient, examination and diagnostic information, or educational materials that describe strategies for coping with cancer and cancer therapies in detail. Both medical science and an individual's health care needs change, and therefore this document is current only as of the date of preparation. This summary document does not prescribe or recommend any particular medical treatment or care for cancer or any other disease and does not substitute for the independent medical judgment of the treating professional. Kenn Lizarraga MD 01/24/2018 12:10 PM Signed Radiation Oncology - Follow Up Note PATIENT NAME: Flavia Case PATIENT DIAGNOSIS: 67 year old female with incidentally found PAWAN nodule, medically inoperable [cardiac comorbidity], peripheral, squamous cell CA, T1a[1.3cm, ?SUV 5] ?N0[PET] M0 s/p 34 Gy in 1 fx completed 11/18/16. INTERVAL HISTORY: Ms. Case came for her follow up. She says she is doing well overall. She complaint of cough and SOB. She has history of COPD. She complaints loss of appetite and loss of weight. Other leija she is doing well. CT Scan done today showed(01/23/18) Stable heterogeneous opacity pattern in the left apex, most likely representing post radiation changes, with component of fibrosis presumed. Treated tumor is no longer identifiable. ?No enlarging lymph nodes ALLERGIES Allergen Reactions - Advair Diskus [Flut* Other: See Comments CHEST PAIN - Asa [Salicylates] Unknown patient taking coumadin - on low dose ASA for valve dysfunction - Cephalexin Stomach pains-pt. ended up in hospital - Ekg Pads [Other] adhesive - Lisinopril Cough - Nexium [Esomeprazol* Other: See Comments Ineffective - Omeprazole Other: See Comments Ineffective - Tudorza Pressair [A* GI Upset - Ventolin [Albuterol* Other: See Comments Severe shaking, palpitations - Ventolin [Albuterol] Other: See Comments Ventolin MDI does not work, Pro Air works best MEDICATIONS: COMPOUNDED PRESCRIPTION Home scale for daily weight check. Dx: CHF-diastolic atorvastatin (LIPITOR) 20 mg tablet take 1 tablet by mouth once daily tiZANidine (ZANAFLEX) 4 mg tablet take 1 tablet by mouth once daily at bedtime if needed ferrous sulfate 325 mg (65 mg iron) tablet take 1 tablet by mouth twice a day with meals metFORMIN ER (GLUCOPHAGE XR) 500 mg 24 hr tablet take 2 tablets by mouth twice a day oxybutynin ER (DITROPAN XL) 10 mg 24 hr tablet take 1 tablet by mouth once daily amLODIPine (NORVASC) 5 mg tablet Take 1 tablet by mouth once daily. mupirocin (BACTROBAN) 2 % ointment Apply 1 application to affected area three times daily. Location: Inside nose albuterol HFA (PROAIR HFA) 90 mcg/actuation inhaler Inhale 2 Puffs as instructed every 4 hours as needed. polyethylene glycol 3350 (MIRALAX, GLYCOLAX) 17 gram/dose powder Take 17 g by mouth once daily. dissolve in water. aspirin, enteric coated (ASPIRIN, ENTERIC COATED) 81 mg EC tablet take 1 tablet by mouth once daily warfarin (COUMADIN) 1 mg tablet Take 1 tablet by mouth once daily. atenolol (TENORMIN) 100 mg tablet take 1 tablet by mouth once daily warfarin (COUMADIN) 6 mg tablet TAKE 7 MG ON Monday AND MONDAY, TAKE 1 TABLET (6 MG) ON ALL OTHER DAYS, TAKE 6 MG AND 1 MG TAB TABLET TO MAKE 7 MG sertraline (ZOLOFT) 100 mg tablet take 1 tablet by mouth once daily isosorbide mononitrate ER (IMDUR) 30 mg 24 hr tablet Take 3 tablets by mouth once daily. FREESTYLE LITE STRIPS test strip TEST twice a day FREESTYLE LANCETS 28 gauge misc TEST twice a day loratadine (CLARITIN) 10 mg tablet Take 1 tablet by mouth once daily. lansoprazole (PREVACID) 30 mg capsule Take 1 capsule by mouth twice daily before meals (0600/1600). glipiZIDE XL (GLUCOTROL XL) 10 mg 24 hr tablet Take 1 tablet by mouth once daily. losartan (COZAAR) 100 mg tablet take 1 tablet by mouth once daily diclofenac sodium (VOLTAREN) 1 % topical gel Apply 2 g to affected area twice daily as needed. Both heels Leg Brace (KNEE SUPPORT BRACE) misc 1 Each continuous. DX: S89.92XA furosemide (LASIX) 20 mg tablet take 1 tablet by mouth once daily Leg Brace (KNEE SUPPORT BRACE) misc 1 Each continuous. warfarin (COUMADIN) 6 mg tablet Take 7 mg Daily nitroglycerin sublingual (NITROSTAT) 0.4 mg SL tablet Dissolve 1 tablet under the tongue as needed. DISSOLVE ON TONGUE FOR CHEST PAIN. IF NO PAIN RELIEF, CALL 911 nystatin (MYCOSTATIN) cream Apply 1 application to affected area twice daily. Groin as needed meclizine (ANTIVERT) 12.5 mg tab Take 1 tablet by mouth three times daily as needed (dizziness). traZODone (DESYREL) 50 mg tablet Take 1 tablet by mouth daily at bedtime. albuterol (PROVENTIL) 5 mg/mL nebu Inhale 0.5 mL as instructed one time only for 1 dose. 1 DOSE NOW - BACK OFFICE. PLACE 0.5 ML PER DROPPER AND 2.5 ML OF NORMAL SALINE INTO RESERVOIR. COMPOUNDED PRESCRIPTION NEBULIZER SUPPLIES, MEDICATION CUP, TUBING FOR USE WITH NEBULIZER MACHINE DX J40.0 >Blood Pressure Cuff Home HOME BP CUFF, DX: HTN LABILE Dx: i10 REVIEW OF SYSTEMS: GENERAL: Negative for fevers, chills, or night sweats. HEENT: Negative for sudden vision or hearing changes. NECK: Negative for masses in the neck. RESPIRATORY: see HPI GI: Negative for nausea, vomiting, diarrhea, constipation, blood per rectum, or melena. : Negative for dysuria, hematuria, urgency, frequency or incontinence. MUSCULOSKELETAL: Negative for limitations in movement, pain, or swelling. NEURO: Negative for dizziness, headache, weakness or numbness. PHYSICAL EXAM: VS: BP (!) 114/46 Pulse 61 Temp 37.2 ?C (98.9 ?F) (Oral) Resp 20 Wt 105.7 kg (233 lb) SpO2 95% BMI 41.27 kg/m? KPS: 70 General Appearance: Alert and oriented. No acute distress. HEENT: Sclera anicteric. Neck: Normal ROM. Chest: No respiratory distress. Abdomen: Nondistended. Neuro: No focal deficits. TOXICITY ASSESSMENT CTC3: No ASSESSMENT/PLAN: Clinically doing well. CT demonstrates complete response in the treated tumor. We will see her again in 6 months for followup. Fatimah Enamorado MD Fellow Rad Onc Page: [id number] [facility] STAFF PHYSICAN NOTE OF PERSONAL INVOLVEMENT IN CARE I have personally participated in the cabral components of the case including a review of imaging and agree with the above findings Kenn Lizarraga MD cc: Keri Gamez MD [id number] [place] [address] [place] [id number] [address] [facility] [address] Referring Provider: KENN LIZARRAGA [[id number]] Allergies As of Date: 01/23/2018 Noted Allergy Reaction ADVAIR DISKUS (FLUTICASONE-SALMET*05/16/2011 14 - Other: See Comments Comments: CHEST PAIN ASA (SALICYLATES) 05/10/2005 16 - Unknown Comments: patient taking coumadin - on low dose ASA for valve dysfunction CEPHALEXIN 02/21/2008 Comments: Stomach pains-pt. ended up in hospital EKG PADS [Other] 05/10/2005 Comments: adhesive LISINOPRIL 07/03/2014 3 - Cough NEXIUM (ESOMEPRAZOLE MAGNESIUM) 01/26/2016 14 - Other: See Comments Comments: Ineffective OMEPRAZOLE 01/26/2016 14 - Other: See Comments Comments: Ineffective TUDORZA PRESSAIR (ACLIDINIUM BROM*01/26/2016 8 - GI Upset VENTOLIN (ALBUTEROL SULFATE) 10/24/2017 14 - Other: See Comments Comments: Severe shaking, palpitations VENTOLIN (ALBUTEROL) 01/26/2016 14 - Other: See Comments Comments: Ventolin MDI does not work, Pro Air works best Date Reviewed: 12/19/2017 Reviewed by: Laina Aponte RN - Fully Assessed Primary Visit Diagnosis:Squamous carcinoma of lung, 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] Other Visit Diagnosis:Neoplasm of lung [D49.1] Order(s):CT CHEST WO IVCON [[id number]] Order #: [id number] FUTURE Prescriptions as of 01/23/2018 Sig: COMPOUNDED PRESCRIPTION Home scale for daily weight c* ATORVASTATIN 20 MG TABLET take 1 tablet by mouth once d* TIZANIDINE 4 MG TABLET take 1 tablet by mouth once d* FERROUS SULFATE 325 MG (65 MG* take 1 tablet by mouth twice * METFORMIN ER 500 MG TABLET,EX* take 2 tablets by mouth twice* OXYBUTYNIN CHLORIDE ER 10 MG * take 1 tablet by mouth once d* AMLODIPINE 5 MG TABLET Take 1 tablet by mouth once d* MUPIROCIN 2 % TOPICAL OINTMENT Apply 1 application to affect* ALBUTEROL SULFATE HFA 90 MCG/* Inhale 2 Puffs as instructed * POLYETHYLENE GLYCOL 3350 17 G* Take 17 g by mouth once daily* ASPIRIN 81 MG TABLET,DELAYED * take 1 tablet by mouth once d* WARFARIN 1 MG TABLET Take 1 tablet by mouth once d* ATENOLOL 100 MG TABLET take 1 tablet by mouth once d* WARFARIN 6 MG TABLET TAKE 7 MG ON Monday* SERTRALINE 100 MG TABLET take 1 tablet by mouth once d* ISOSORBIDE MONONITRATE ER 30 * Take 3 tablets by mouth once * FREESTYLE LITE STRIPS TEST twice a day FREESTYLE LANCETS 28 GAUGE TEST twice a day LORATADINE 10 MG TABLET Take 1 tablet by mouth once d* LANSOPRAZOLE 30 MG CAPSULE,DE* Take 1 capsule by mouth twice* GLIPIZIDE ER 10 MG TABLET, EX* Take 1 tablet by mouth once d* LOSARTAN 100 MG TABLET take 1 tablet by mouth once d* DICLOFENAC 1 % TOPICAL GEL Apply 2 g to affected area tw* LEG BRACE 1 Each continuous. DX: S89.92* FUROSEMIDE 20 MG TABLET take 1 tablet by mouth once d* LEG BRACE 1 Each continuous. WARFARIN 6 MG TABLET Take 7 mg Daily NITROGLYCERIN 0.4 MG SUBLINGU* Dissolve 1 tablet under the t* NYSTATIN 100,000 UNIT/GRAM TO* Apply 1 application to affect* MECLIZINE 12.5 MG TABLET Take 1 tablet by mouth three * TRAZODONE 50 MG TABLET Take 1 tablet by mouth daily * ALBUTEROL SULFATE CONCENTRATE* Inhale 0.5 mL as instructed o* COMPOUNDED PRESCRIPTION NEBULIZER SUPPLIES, MEDICATIO* COMPOUNDED PRESCRIPTION HOME BP CUFF, DX: HTN LABILE * Problem List As Of Date 01/23/2018 Noted Resolved AORTOCORONARY BYPASS STATUS [Z95.1] More... OVERWEIGHT [E66.9] 05/08/2015 ASHD (arteriosclerotic heart disease) [I25.10] INVALID FOR* More... DIABETES MELLITUS TYPE II-UNCOMPL [E11.9] INVALID FOR*02/12/2014 More... HYPERLIPIDEMIA NEC/NOS [E78.5] INVALID FOR*07/24/2015 More... Hematuria [599.7] INVALID FOR*07/24/2015 More... History of mechanical aortic valve replacement *INVALID FOR* More... Abdominal pain, unspecified site [R10.9] INVALID FOR*05/08/2015 Acute gastritis without mention of hemorrhage [*INVALID FOR*01/26/2016 Esophageal reflux [K21.9] INVALID FOR* More... Headache(784.0) [R51] INVALID FOR*01/26/2016 Bronchitis Recurrent [J40] INVALID FOR*03/21/2017 Hallux valgus (acquired) [M20.10] INVALID FOR*07/24/2015 Pain in limb [M79.609] INVALID FOR*01/26/2016 Goiter [E04.9] INVALID FOR* S/P AVR [Z95.2] INVALID FOR*01/26/2016 Multinodular thyroid [E04.2] INVALID FOR* Emphysema of lung (HCC) [J43.9] More... Hyperlipemia [E78.5] INVALID FOR* DM type 2 (diabetes mellitus, type 2) (HCC) [E1*INVALID FOR*05/08/2015 Hematuria [R31.9] INVALID FOR*10/23/2015 Smoking [F17.200] INVALID FOR*10/23/2015 Chronic anticoagulation [Z79.01] INVALID FOR* OAB (overactive bladder) [N32.81] INVALID FOR* More... Frequency of urination [R35.0] INVALID FOR*01/26/2016 Hypertension goal BP (blood pressure) < 140/90 *INVALID FOR* More... Diabetes mellitus type 2, uncontrolled, without*INVALID FOR*03/21/2017 More... Nicole rash of groin [B37.89] INVALID FOR* More... Stress at home [F43.9] INVALID FOR* Insomnia [G47.00] INVALID FOR* Financial difficulties [Z59.8] INVALID FOR* Obesity, Class III, BMI >= 40 (morbid obesity) *INVALID FOR* Hemoptysis [R04.2] INVALID FOR* Priority: A More... 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 Eczema [L30.9] Diabetes mellitus (HCC) [E11.9] COPD (chronic obstructive pulmonary disease) (H* Diastolic CHF (HCC) [I50.30] Disposition: Return in about 6 months (around 07/24/2018) for Follow up. LOS history recorded Follow-up and Disposition History Recorded Encounter Status:Closed by KENN LIZARRAGA MD on 01/24/18 PROGRESS Observed: 01/23/2018 Status: COMPLETED Source: [place]AT 2:26 PM [facility] [place] REPOSITORY HNO ID: [id number] Author: Jodie Mann (Trev) Jeremías Service: (none) Author Type: Nurse Practitioner Type: Progress Notes Filed: 01/24/2018 12:10 PM Note Text: Cancer Treatment Summary Provided by Jodie Veronica CNP on June 01, 2016 General Information Patient Name: Flavia Case Date of : 1950 Age: 67 Support Contact: Bear Almanzar (daughter) [phone] Background Information Ms. Flavia Case is a 67 year old female, former 72 py smoker (quit 1995) with a pmh significant for COPD, AVR (Coumadin), CAD (s/p 3 vessel CABG in 1996), skin cancer excised from knee, pulmonary HTN, and DM.?On 06/08/2016 CT imaging of her chest for evaluation of her thoracic aorta incidentally identified a 1.3 cm PAWAN nodule, a few 3 mm nodules bilaterally, and innumerable tiny centrilobular nodules throughout both lungs, likely related to small airway disease. Remote granulomatous disease was also seen in the chest and abdomen. PET imaging performed on 09/14/2016 described hypermetabolic uptake associated with the 1.3 x 1.2 cm PAWAN nodule. The additional scattered nodules were below the resolution for PET. CT guided biopsy of the PAWAN lung lesion confirmed non- small cell carcinoma, consistent with squamous cell carcinoma. Pulmonary function testing performed on 11/09/16 reported a FEV1 of?1.16L / 51% and DLCO of 83 % of predicted value. Thoracic Surgery determined patient to be a risk candidate for surgery due to her co morbid health issues.. Care Team Radiation Oncologist: Kenn Lizarraga MD: [phone] Pulmonary Physician: JARRETT Primary Care Physician: Dr. Keri Gamez Cancer Diagnosis Information Diagnosis: Lung Cancer Diagnosis date: 10/20/2016 (CT guided biopsy) Staging Information: Histology: Squamous Cell Carcinoma Stage: IA AJCC TNM (7th edition) stage: [id number] Tumor Size: 1.3 cm Diagnostic Imaging (Date): As documented above Diagnostic Surgical procedure: NA Surgical Pathology: NA TREATMENT REGIMENS PROVIDED AT [facility] Radiation Therapy Radiation Therapy Type Area in Treatment Field Total Dose Total number of fractions (sessions): SBRT PAWAN lung 3400 cGy 1 Start Date: 11/18/2016 End Date: 11/18/2016 Treatment Goal: Curative Treatment on Clinical Trial? No Potential Delayed Side Effects: ? Cough ? Chest wall aching ? Radiation pneumonitis ? Rib fracture (very rare) Response to Treatment: Favorable with no evidence or recurrent disease as of 07/25/2017 CT imaging Post Treatment Care Post treatment Imaging (Date): CT chest without contrast: 01/24/2017, 07/25/2017, scheduled 01/23/2018 Ability to perform activities of daily living has: Remained the same Years since Diagnosis Outpatient Visits Chest Imaging 1-2 Every 3 - 6 months Every 3 - 6 months 3-5 Every 6 months Every 6 months Healthy Lifestyle: ? Continue to NOT smoke ? Minimize alcohol consumption ? Adequate calorie and fluid intake ? Maintain routine follow up with PCP and Manager Respiratory as directed ? Routine exercise as recommended by PCP Potential late effects of treatment(s): ? Radiation Pneumonitis ? Cough ? Chest wall aching ? Rib fracture (very rare) When to call: We encourage you to call with any new concerns or questions. Specifically report any: - Increased cough - Blood tinged sputum - Changes in breathing - Chest Pain Notify your health care team so that we can evaluate your concerns in a timely manner. We routinely do NOT recommend: FDG-PET scans for routine surveillance. Other Concerns: Prevention and Wellness: ? Tobacco Cessation services available upon request ? Follow up with PCP ? [place] [facility] - [phone] Support Services: ? Outside [facility] - [employer] [facility] [phone] ? Tobacco Cessation Services Available Upon Request ? [facility] [phone] ([place]) ? [address] [place] [address] ? [facility] - [phone] ([place]) If you are experience any financial, insurance, employment, or social issues directly related to your cancer diagnosis and/or treatment: Contact your treatment team or [employer] [place] [phone] so that you can be directed to the appropriate support person. Referrals provided: Discussed and ordered as appropriate during Survivorship Visit. Survivorship Care Provider Contacts: If at any time you have questions or concerns, please do not hesitate to contact any member of your health care team: ? Jodie Veronica CNP at [phone] ? Dr. Kenn Lizarraga at [phone] Treatment plan and follow-up summary given to patient and sent to: PCP: Dr. Keri Gamez via [employer] ? 2008 [employer]. All rights reserved. Important caution: this is a summary document whose purpose is to review the highlights of the cancer treatment for this patient. This does not replace information available in the medical record, a complete medical history provided by the patient, examination and diagnostic information, or educational materials that describe strategies for coping with cancer and cancer therapies in detail. Both medical science and an individual's health care needs change, and therefore this document is current only as of the date of preparation. This summary document does not prescribe or recommend any particular medical treatment or care for cancer or any other disease and does not substitute for the independent medical judgment of the treating professional. CT CHEST WO IVCON Observed: 01/23/2018 Status: F Source: ARARAT 2:26 PM [facility] REPOSITORY * * *Final Report* * * DATE OF EXAM: Jan 23 2018 2:26PM [facility] 0541 - CT CHEST WO IVCON / PROCEDURE REASON: Malignant neoplasm of unspecified part of left bronchus or lung * * * * Physician Interpretation * * * * EXAMINATION: CHEST CT WITHOUT CONTRAST CLINICAL HISTORY: Malignant neoplasm of unspecified part of left bronchus or lung 67 year old female, former 72 py smoker (quit 1995) with a pmh significant for COPD, AVR (Coumadin), CAD (s/p 3 vessel CABG in 1996), skin cancer excised from knee, pulmonary HTN, and DM.?On 06/08/2016 CT imaging of her chest for evaluation of her thoracic aorta incidentally identified a 1.3 cm PAWAN nodule, a few 3 mm nodules bilaterally, and innumerable tiny centrilobular nodules throughout both lungs, likely related to small airway disease. ?CT guided biopsy of the PAWAN lung lesion confirmed non-small cell carcinoma, consistent with squamous cell carcinoma. Status post radiation therapy on 11/18/2016, 3400 cGy to the left upper lobe Technique: Spiral CT acquisition of the chest from the thoracic inlet to the upper abdomen without contrast. MQ: [id number]_4 CT Dose-Length Product: 504 mGy*cm CT Dose Reduction Employed: Automated exposure control (AEC) Comparison: 07/25/2017 RESULT: Limitations: None. Lines, tubes, and devices: None. Lung parenchyma and pleura: On lung windows, clear central airways noted. Within the left apex, heterogeneous opacities are noted with peripheral bronchiectasis/bronchiolectasis, related to posttreatment changes/, with treated tumor difficult to identify. There are some peripheral nodular opacities noted on image 20, presumably related to posttreatment changes. Redemonstration of bilateral small indeterminate pulmonary nodules, for example right upper lobe image 70, right lower lobe image 100, left upper lobe image 41, left lower lobe image 104. These are visible back to 06/08/2016 exam. Calcified granuloma. Mild mosaic attenuation noted suggestive of small airways disease. Some of the parenchymal lucencies in the upper lobes may relate to emphysema. No pleural effusion. No pneumothorax. Thoracic inlet, heart, and mediastinum: Visualized portions of the thyroid appear stable with focally calcified nodules. No progressive axillary or supraclavicular lymphadenopathy meeting size criteria noted. Intrathoracically, no progressive intrathoracic lymphadenopathy meeting size criteria noted. Calcified subcarinal lymph node redemonstrated. Atherosclerotic calcifications of the aorta and its branches noted. Common origin of brachiocephalic and left common carotid arteries arising off the aortic arch is noted, an anatomic variant. CABG and mechanical aortic valve replacement changes are noted. Severe, multivessel [place] coronary artery calcifications noted. Mitral annular calcifications. Left ventricular calcifications, may relate to papillary muscle or left ventricular myocardial calcifications. Normal caliber ascending aorta and pulmonary trunk noted. Stable cardiac chambers, with mild anemia suspected, attenuation of the blood slightly lower than adjacent myocardium. No pericardial effusion. Stable esophagus with some luminal gas. Bones and soft tissues: Chest wall soft tissues are stable, with median sternotomy changes. On bone window images, minor degenerative changes of the spine noted. Upper abdomen: Numerous splenic calcified granulomata and hepatic granulomata noted. Hepatic steatosis noted with subtle nodularity of the liver surface, fairly diffuse (intrinsic attenuation ranging 17- 21 Hounsfield units). Atherosclerotic calcifications of the abdominal aorta and splenic artery appears fairly extensive. Small upper abdominal lymph nodes noted in the gastrohepatic ligament. QB_N IMPRESSION: 1. Stable heterogeneous opacity pattern in the left apex, most likely representing post radiation changes, with component of fibrosis presumed. Treated tumor is no longer identifiable. 2. Other small indeterminate pulmonary nodules are redemonstrated. Mosaic attenuation pattern indicating small airways disease and some component of emphysema noted again. 3. No enlarging lymph nodes. Status post CABG and mechanical aortic valve replacement. Suspect mild anemia. Old granulomatous disease. Diffuse hepatic steatosis with subtle nodularity of the liver surface redemonstrated. Tax Associate Attorney: PSCB Transcribe Date/Time: Jan 23 2018 2:45P Dictated by : DEMETRIUS VÁSQUEZ MD This examination was interpreted and the report reviewed and electronically signed by: DEMETRIUS VÁSQUEZ MD on Jan 23 2018 3:09PM EST [id number] PROGRESS Observed: 01/23/2018 Status: COMPLETED Source: ARARAT 2:17 PM [facility] REPOSITORY HNO ID: [id number] Author: PETRONA Grove (Ct) Service: Radiology Author Type: Clinical Biomedical Photographer Type: Progress Notes Filed: 01/23/2018 2:21 PM Note Text: Radiology Service Progress Note PATIENT NAME: Flavia Case DATE OF SERVICE: January 23, 2018 TIME: 2:17 PM PATIENT IDENTITY VERIFICATION COMPLETED USING TWO (2) METHODS: Patient confirmed name verbally and ID band matches.. PATIENT GENDER DATA: Female. status: : No status: NO. PATIENT RELEVANT IMPLANT DATA REVIEWED: Yes RADIOLOGY DEPARTMENT: CT; Exam(s) Completed: Chest PERIPHERAL IV DATA: Not applicable SIGNED BY: PETRONA Grove January 23, 2018 2:17 PM ALBUMIN/CREAT RATIO Collected: 01/15/2018 Status: F Source: ARARAT 1:55 PM [facility] REPOSITORY TYPE CODE TESTS RESULT OUT OF REFERENCE UNITS RANGE LAB UCRR 20-300 mg/dL Creatinine,Ur 91.7 ine,Ran LAB UALBR 0.0-23.0 mg/L Albumin Urine 16.6 Random LAB UALBCR 0-30 mg/g Albumin/Creat 18 Ratio Result Comment: 30 to 300 mg/g indicates an increased risk for diabetic nephropathy. Greater than 300 mg/g is consistent with clinical nephropathy. (Am J Kidney Disease 1994, 25:107) Performed By: #### UACR #### [facility] [address], [place] [address] CBC Collected: 01/15/2018 Status: F Source: ARARAT 1:29 [facility] REPOSITORY TYPE CODE TESTS RESULT OUT OF REFERENCE UNITS RANGE LAB WBC 3.70-11.00 k/uL WBC 6.96 LAB RBC 3.90-5.20 m/uL RBC 4.41 LAB HGB 11.5-15.5 g/dL Hemoglobin 11.6 LAB HCT 36.0-46.0 % Hematocrit 38.1 LAB MCV 80.0-100.0 fL MCV 86.4 LAB MCH 26.0-34.0 pG MCH 26.3 LAB MCHC 30.5-36.0 g/dL Low MCHC 30.4 LAB RDWCV 11.5-15.0 % RDW-CV High 15.9 LAB PLTCT 150-400 k/uL Platelet Count 193 LAB MPV 9.0-12.7 fL MPV 11.8 LAB ABSNUC <0.01 k/uL Absolute nRBC <0.01 Performed By: #### CBC, PT, CMP, HBA1C #### [facility] [address], [place] [address] PROTIME Collected: 01/15/2018 Status: F Source: ARARAT 1:29 [facility] REPOSITORY TYPE CODE TESTS RESULT OUT OF RANGE REFERENCE UNITS LAB PSEC 9.7-13.0 sec High PT Sec 29.3 LAB INR 0.9-1.3 High PT INR 3.0 Result Comment: Vitamin K Antagonist (VKA) Therapeutic Range: INR 2 to 3 (Target INR of 2.5) Note: For patients treated with VKA drugs, such as warfarin, the [place] [employer] 2012 Guideline recommends a therapeutic INR range of 2 to 3 (target INR of 2.5). This recommendation includes high-risk patients with antiphospholipid syndrome with previous arterial or venous thromboembolism, current-generation mechanical or bioprosthetic aortic heart valve replacement. Note: Patients with mechanical aortic valve replacement and additional risk factors for thromboembolic events (atrial fibrillation, previous thromboembolism, LV dysfunction, hypercoagulable conditions) or an older generation mechanical AVR (i.e., ball in-Cage) or any mechanical MVR should have a INR therapeutic range of 2.5 to 3.5 (target INR of 3). Joe GH, et al. Chest 2012, 141:7S-47S Catie HONG, et al. [facility] 2017, 70: 252-289 Performed By: #### CBC, PT, CMP, HBA1C #### [facility] [address] [place] [id number] COMP METABOLIC PANEL Collected: 01/15/2018 Status: F Source: ARARAT 1:29 PM [facility] REPOSITORY TYPE CODE TESTS RESULT OUT OF REFERENCE UNITS RANGE LAB TP 6.3-8.0 g/dL Protein, Total 7.0 LAB ALB 3.9-4.9 g/dL Albumin 4.4 LAB CA 8.5-10.2 mg/dL Calcium, Total 9.5 LAB TBIL 0.2-1.3 mg/dL Bilirubin, Total 0.2 LAB ALKP 32-117 U/L Alkaline Phosphatase 84 LAB AST 13-35 U/L AST 31 LAB GLU 74-99 mg/dL Glucose High 179 Result Comment: The [place] Diabetes [employer] (ADA) provides guidance for cutoff values for fasting glucose and random glucose. The ADA defines fasting as no caloric intake for at least 8 hours. Fas ting plasma glucose results between 100 to 125 mg/dL indicate increased risk for diabetes (prediabetes). Fasting plasma glucose results greater than or equal to 126 mg/dL meet the criteria for diagnosis of diabetes. In the absence of unequivocal hyperglycemia, results should be confirmed by repeat testing. In a patient with classic symptoms of hyperglycemia or hyperglycemic crisis, random plasma glucose results greater than or equal to 200 mg/dL meet the criteria for diagnosis of diabetes. Reference: Standards of Medical Care in Diabetes 2016, [place] [employer] Association. Diabetes Care. 2016.39(Suppl 1). LAB BUN 7-21 mg/dL BUN 19 LAB CRET 0.58-0.96 mg/dL Creatinine 0.60 LAB NA 136-144 mmol/L Sodium 139 LAB K 3.7-5.1 mmol/L Potassium 4.2 LAB CL 97-105 mmol/L Chloride 100 LAB CO2 22-30 mmol/L CO2 23 LAB AGAP 9-18 mmol/L Anion Gap 16 LAB ALT 7-38 U/L ALT 30 LAB GFRAA eGFR- Amer. >60 LAB GFRNAA . eGFR-All Other Races >60 Result Comment: eGFR (Estimated GFR) Units of measure: mL/min/1.73 meters squared eGFR is derived from the reexpressed MDRD Study equation using the following parameters: serum creatinine, age, gender and race. The creatinine assay has been calibrated to be traceable to IDMS. An eGFR <60 mL/min/1.73m2 for >3 months is consistent with chronic kidney disease. Refer to KDOQI guidelines for clinical interpretation. In patients with unstable renal function, e.g. those with acute kidney injury, the eGFR may not accurately reflect actual GFR. Performed By: #### CBC, PT, CMP, HBA1C #### [facility] [address] [place], [place] [address] HEMOGLOBIN A1C Collected: 01/15/2018 Status: F Source: ARARAT 1:29 PM [facility] REPOSITORY TYPE CODE TESTS RESULT OUT OF REFERENCE UNITS RANGE LAB HGBA1C 4.3-5.6 % High Hemoglobin A1c 6.8 LAB HBA0 mg/dL Est. Average Glucose 148 Result Comment: eAG: (Estimated average glucose) is a calculated value from HgbA1c and is retail service representative of the average blood glucose level in the last 2-3 month period. Performed By: #### CBC, PT, CMP, HBA1C #### [facility] [address] [place], [place] [address] CNPTOUTREACH Observed: 01/09/2018 Status: COMPLETED Source: ARARAT 12:00 AM [facility] REPOSITORY Patient Outreach (FAMPST) FLAVIA CASE ([id number]) 1950 F Date Time Provider Department 01/09/18 KERI GAMEZ) NAEEMPST During your visit today, we recorded the following information about you: Allergies As of Date: 01/09/2018 Noted Allergy Reaction ADVAIR DISKUS (FLUTICASONE-SALMET*05/16/2011 14 - Other: See Comments Comments: CHEST PAIN ASA (SALICYLATES) 05/10/2005 16 - Unknown Comments: patient taking coumadin - on low dose ASA for valve dysfunction CEPHALEXIN 02/21/2008 Comments: Stomach pains-pt. ended up in hospital EKG PADS [Other] 05/10/2005 Comments: adhesive LISINOPRIL 07/03/2014 3 - Cough NEXIUM (ESOMEPRAZOLE MAGNESIUM) 01/26/2016 14 - Other: See Comments Comments: Ineffective OMEPRAZOLE 01/26/2016 14 - Other: See Comments Comments: Ineffective TUDORZA PRESSAIR (ACLIDINIUM BROM*01/26/2016 8 - GI Upset VENTOLIN (ALBUTEROL SULFATE) 10/24/2017 14 - Other: See Comments Comments: Severe shaking, palpitations VENTOLIN (ALBUTEROL) 01/26/2016 14 - Other: See Comments Comments: Ventolin MDI does not work, Pro Air works best Date Reviewed: 12/19/2017 Reviewed by: Laina Aponte RN - Fully Assessed Visit Diagnosis:Medication management [Z79.899] Order(s):ALBUMIN/CREAT RATIO RND UR [SQUACR] Order #: [id number] FUTURE Prescriptions as of 01/09/2018 Sig: COMPOUNDED PRESCRIPTION Home scale for daily weight c* ATORVASTATIN 20 MG TABLET take 1 tablet by mouth once d* TIZANIDINE 4 MG TABLET take 1 tablet by mouth once d* FERROUS SULFATE 325 MG (65 MG* take 1 tablet by mouth twice * METFORMIN ER 500 MG TABLET,EX* take 2 tablets by mouth twice* OXYBUTYNIN CHLORIDE ER 10 MG * take 1 tablet by mouth once d* AMLODIPINE 5 MG TABLET Take 1 tablet by mouth once d* MUPIROCIN 2 % TOPICAL OINTMENT Apply 1 application to affect* ALBUTEROL SULFATE HFA 90 MCG/* Inhale 2 Puffs as instructed * POLYETHYLENE GLYCOL 3350 17 G* Take 17 g by mouth once daily* ASPIRIN 81 MG TABLET,DELAYED * take 1 tablet by mouth once d* WARFARIN 1 MG TABLET Take 1 tablet by mouth once d* ATENOLOL 100 MG TABLET take 1 tablet by mouth once d* WARFARIN 6 MG TABLET TAKE 7 MG ON Monday* SERTRALINE 100 MG TABLET take 1 tablet by mouth once d* ISOSORBIDE MONONITRATE ER 30 * Take 3 tablets by mouth once * FREESTYLE LITE STRIPS TEST twice a day FREESTYLE LANCETS 28 GAUGE TEST twice a day LORATADINE 10 MG TABLET Take 1 tablet by mouth once d* LANSOPRAZOLE 30 MG CAPSULE,DE* Take 1 capsule by mouth twice* GLIPIZIDE ER 10 MG TABLET, EX* Take 1 tablet by mouth once d* LOSARTAN 100 MG TABLET take 1 tablet by mouth once d* DICLOFENAC 1 % TOPICAL GEL Apply 2 g to affected area tw* LEG BRACE 1 Each continuous. DX: S89.92* FUROSEMIDE 20 MG TABLET take 1 tablet by mouth once d* LEG BRACE 1 Each continuous. WARFARIN 6 MG TABLET Take 7 mg Daily NYSTATIN 100,000 UNIT/GRAM TO* Apply 1 application to affect* MECLIZINE 12.5 MG TABLET Take 1 tablet by mouth three * X NITROGLYCERIN 0.4 MG SUBLINGU* Dissolve 1 tablet under the t* TRAZODONE 50 MG TABLET Take 1 tablet by mouth daily * ALBUTEROL SULFATE CONCENTRATE* Inhale 0.5 mL as instructed o* COMPOUNDED PRESCRIPTION NEBULIZER SUPPLIES, MEDICATIO* COMPOUNDED PRESCRIPTION HOME BP CUFF, DX: HTN LABILE * Problem List As Of Date 01/09/2018 Noted Resolved AORTOCORONARY BYPASS STATUS [Z95.1] More... OVERWEIGHT [E66.9] 05/08/2015 ASHD (arteriosclerotic heart disease) [I25.10] INVALID FOR* More... DIABETES MELLITUS TYPE II-UNCOMPL [E11.9] INVALID FOR*02/12/2014 More... HYPERLIPIDEMIA NEC/NOS [E78.5] INVALID FOR*07/24/2015 More... Hematuria [599.7] INVALID FOR*07/24/2015 More... History of mechanical aortic valve replacement *INVALID FOR* More... Abdominal pain, unspecified site [R10.9] INVALID FOR*05/08/2015 Acute gastritis without mention of hemorrhage [*INVALID FOR*01/26/2016 Esophageal reflux [K21.9] INVALID FOR* More... Headache(784.0) [R51] INVALID FOR*01/26/2016 Bronchitis Recurrent [J40] INVALID FOR*03/21/2017 Hallux valgus (acquired) [M20.10] INVALID FOR*07/24/2015 Pain in limb [M79.609] INVALID FOR*01/26/2016 Goiter [E04.9] INVALID FOR* S/P AVR [Z95.2] INVALID FOR*01/26/2016 Multinodular thyroid [E04.2] INVALID FOR* Emphysema of lung (HCC) [J43.9] More... Hyperlipemia [E78.5] INVALID FOR* DM type 2 (diabetes mellitus, type 2) (HCC) [E1*INVALID FOR*05/08/2015 Hematuria [R31.9] INVALID FOR*10/23/2015 Smoking [F17.200] INVALID FOR*10/23/2015 Chronic anticoagulation [Z79.01] INVALID FOR* OAB (overactive bladder) [N32.81] INVALID FOR* More... Frequency of urination [R35.0] INVALID FOR*01/26/2016 Hypertension goal BP (blood pressure) < 140/90 *INVALID FOR* More... Diabetes mellitus type 2, uncontrolled, without*INVALID FOR*03/21/2017 More... Nicole rash of groin [B37.89] INVALID FOR* More... Stress at home [F43.9] INVALID FOR* Insomnia [G47.00] INVALID FOR* Financial difficulties [Z59.8] INVALID FOR* Obesity, Class III, BMI >= 40 (morbid obesity) *INVALID FOR* Hemoptysis [R04.2] INVALID FOR* Priority: A More... 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 Eczema [L30.9] Diabetes mellitus (HCC) [E11.9] COPD (chronic obstructive pulmonary disease) (H* Diastolic CHF (HCC) [I50.30] Encounter Status:Closed by [employer], DonordonutUSER on 02/09/18 PROGRESS Observed: 01/08/2018 Status: COMPLETED Source: ARARAT 4:57 PM [facility] REPOSITORY O ID: [id number] Author: Brenda Darby RN Service: (none) Author Type: (none) Type: Progress Notes Filed: 01/08/2018 4:59 PM Note Text: please file pended order detailed message left for patient with information and to contact the office with any questions PROGRESS Observed: 01/08/2018 Status: COMPLETED Source: ARARAT 4:07 PM [facility] REPOSITORY HNO ID: [id number] Author: Keri Mo) Vera Service: (none) Author Type: Physician Type: Progress Notes Filed: 01/08/2018 4:07 PM Note Text: INR subtherapeutic. Increase coumadin to 3 mg Tue, Thurs and 6 mg all other days. Recheck in 1 week. PROGRESS Observed: 01/08/2018 Status: COMPLETED Source: ARARAT 3:59 PM [facility] REPOSITORY HNO ID: [id number] Author: Brenda Darby RN Service: (none) Author Type: (none) Type: Progress Notes Filed: 01/08/2018 4:01 PM Note Text: patient had inr completed at [facility] patients inr is 2.6 (patients inr range is 3.0-4.0) patient is currently taking 3mg Tues,Thurs,Sat and 6mg all other days patients last dose change was on 12/15/17 due to a high level of 4.3 (dose at that time was 3mg Tues and 6mg all other days) patient has had no changes in medication and no missed doses and no change in diet Advised patient that they would be contacted regarding medication dose and when to follow up after information is reviewed by provider. After provider review please contact the patient with information and schedule follow up appointment with coumadin clinic. FYI - patient has been instructed to repeat inr in 1 week and would like to have this completed at the lab due to she needs to have other lab testing done. please review pended order and ok. PROGRESS Observed: 01/03/2018 Status: COMPLETED Source: ARARAT 9:20 AM [facility] REPOSITORY HNO ID: [id number] Author: Keri Mo) Vera Service: (none) Author Type: Physician Type: Progress Notes Filed: 01/04/2018 3:11 PM Note Text: Reviewed. Problem list and PMH updated. Order for social work placed. PROGRESS Observed: 01/02/2018 Status: COMPLETED Source: ARARAT 5:44 PM [facility] REPOSITORY HNO ID: [id number] Author: Himanshu Green) Sybil Service: (none) Author Type: Registered Nurse Type: Progress Notes Filed: 01/03/2018 8:54 AM Note Text: PRIMARY CARE COORDINATION PRE-VISIT ASSESSMENT Provider Action/FYI: Pt now has order for second dose of Lasix 20 mg PRN edema Reports LE edema, Abdominal edema and SOB when she overeats Discussed CHF, when to call MD and obtaining scale for daily weights DIAGNOSIS CHF-DIASTOLIC IS NOT ON PROBLEM LIST (dx per Param Coraod) PLEASE FILE SW CONSULT FBS 140 or higher. Not watching diet, discussed diet PCP appt 01/24 To obtain labs prior Patient has been identified by name and date of . Next Office Visit: 01/24/2018 Last Office Visit Plan/Progress: 10/24/2017 Gaps in care: Last ambulatory BP 130/65 Specialty visits: Saw Dr. Corado on 12/19 Instructed pt can take an extra Lasix 20 mg daily PRN to control edema Reports: LE edema that goes down overnight SOB, especially when pt overeats. Feels she carries fluid in her midriff Patient Concerns: 1. Cardiology Discussed getting scale so pt can weigh daily to monitor edema-pt can't afford scale. Will check with SW re: assistance with obtaining scale 2. Diabetes FBS ranging 140 or higher. States she hasn't been watching her diet due to family issues and stress 3. Anticoalgulation Pt didn't get INR lab this week. Appt made for Anticoagulation Clinic on Monday, 01/08 4. Labs Reminded of appt with PCP on 01/24. Informed pt needs labs, CBC, CMP, A1C Medication Review: No new medications or medication changes Health Maintenance: BP CONTROLLED (<130/80) due on 1967 INFLUENZA(1) due on 12/23/2017 URINE ALBUMIN:CREATININE RATIO due on 12/27/2017 Interventions/PCC Plan of Care: Recommendations: Pt to watch diet and obtain labs before PCP appt. Pt to f/u with INR clinic next week SW contact for assistance with obtaining scale for pt. Himanshu Aquino RN January 03, 2018 LIBORIO Observed: 01/02/2018 Status: COMPLETED Source: ARARAT 12:00 AM [facility] REPOSITORY Patient Outreach (FAMPWS) FLAVIA CASE ([id number]) 1950 F Date Time Provider Department 01/02/18 HIMANSHU AQUINO (RN) JERAD During your visit today, we recorded the following information about you: Himanshu Aquino RN 01/03/2018 8:54 AM Addendum PRIMARY CARE COORDINATION PRE-VISIT ASSESSMENT Provider Action/FYI: Pt now has order for second dose of Lasix 20 mg PRN edema Reports LE edema, Abdominal edema and SOB when she overeats Discussed CHF, when to call MD and obtaining scale for daily weights DIAGNOSIS CHF-DIASTOLIC IS NOT ON PROBLEM LIST (dx per Param Corado) PLEASE FILE SW CONSULT FBS 140 or higher. Not watching diet, discussed diet PCP appt 01/24 To obtain labs prior Patient has been identified by name and date of . Next Office Visit: 01/24/2018 Last Office Visit Plan/Progress: 10/24/2017 Gaps in care: Last ambulatory BP 130/65 Specialty visits: Saw Dr. Corado on 12/19 Instructed pt can take an extra Lasix 20 mg daily PRN to control edema Reports: LE edema that goes down overnight SOB, especially when pt overeats. Feels she carries fluid in her midriff Patient Concerns: 1. Cardiology Discussed getting scale so pt can weigh daily to monitor edema-pt can't afford scale. Will check with SW re: assistance with obtaining scale 2. Diabetes FBS ranging 140 or higher. States she hasn't been watching her diet due to family issues and stress 3. Anticoalgulation Pt didn't get INR lab this week. Appt made for Anticoagulation Clinic on Monday, 01/08 4. Labs Reminded of appt with PCP on 01/24. Informed pt needs labs, CBC, CMP, A1C Medication Review: No new medications or medication changes Health Maintenance: BP CONTROLLED (<130/80) due on 1967 INFLUENZA(1) due on 12/23/2017 URINE ALBUMIN:CREATININE RATIO due on 12/27/2017 Interventions/PCC Plan of Care: Recommendations: Pt to watch diet and obtain labs before PCP appt. Pt to f/u with INR clinic next week SW contact for assistance with obtaining scale for pt. Himanshu Aquino RN January 03, 2018 Keri Gamez MD 01/04/2018 3:11 PM Signed Reviewed. Problem list and PMH updated. Order for social work placed. Allergies As of Date: 01/02/2018 Noted Allergy Reaction ADVAIR DISKUS (FLUTICASONE-SALMET*05/16/2011 14 - Other: See Comments Comments: CHEST PAIN ASA (SALICYLATES) 05/10/2005 16 - Unknown Comments: patient taking coumadin - on low dose ASA for valve dysfunction CEPHALEXIN 02/21/2008 Comments: Stomach pains-pt. ended up in hospital EKG PADS [Other] 05/10/2005 Comments: adhesive LISINOPRIL 07/03/2014 3 - Cough NEXIUM (ESOMEPRAZOLE MAGNESIUM) 01/26/2016 14 - Other: See Comments Comments: Ineffective OMEPRAZOLE 01/26/2016 14 - Other: See Comments Comments: Ineffective TUDORZA PRESSAIR (ACLIDINIUM BROM*01/26/2016 8 - GI Upset VENTOLIN (ALBUTEROL SULFATE) 10/24/2017 14 - Other: See Comments Comments: Severe shaking, palpitations VENTOLIN (ALBUTEROL) 01/26/2016 14 - Other: See Comments Comments: Ventolin MDI does not work, Pro Air works best Date Reviewed: 12/19/2017 Reviewed by: Laina Aponte RN - Fully Assessed Reason for Visit: Crown Buffer-Pre-Visit Assessment [4923] Reason For Visit History Recorded Primary Visit Diagnosis:Diastolic congestive heart failure, unspecified HF chronicity (HCC) [I50.30] Order(s):PRIMARY CARE SOCIAL WORK CONSULT [8349769] Order #: [id number]: 1 Prescriptions as of 01/02/2018 Sig: TIZANIDINE 4 MG TABLET take 1 tablet by mouth once d* FERROUS SULFATE 325 MG (65 MG* take 1 tablet by mouth twice * METFORMIN ER 500 MG TABLET,EX* take 2 tablets by mouth twice* OXYBUTYNIN CHLORIDE ER 10 MG * take 1 tablet by mouth once d* AMLODIPINE 5 MG TABLET Take 1 tablet by mouth once d* MUPIROCIN 2 % TOPICAL OINTMENT Apply 1 application to affect* ALBUTEROL SULFATE HFA 90 MCG/* Inhale 2 Puffs as instructed * POLYETHYLENE GLYCOL 3350 17 G* Take 17 g by mouth once daily* ASPIRIN 81 MG TABLET,DELAYED * take 1 tablet by mouth once d* WARFARIN 1 MG TABLET Take 1 tablet by mouth once d* ATENOLOL 100 MG TABLET take 1 tablet by mouth once d* WARFARIN 6 MG TABLET TAKE 7 MG ON Monday* SERTRALINE 100 MG TABLET take 1 tablet by mouth once d* ISOSORBIDE MONONITRATE ER 30 * Take 3 tablets by mouth once * FREESTYLE LITE STRIPS TEST twice a day FREESTYLE LANCETS 28 GAUGE TEST twice a day ATORVASTATIN 20 MG TABLET take 1 tablet by mouth once d* LORATADINE 10 MG TABLET Take 1 tablet by mouth once d* LANSOPRAZOLE 30 MG CAPSULE,DE* Take 1 capsule by mouth twice* GLIPIZIDE ER 10 MG TABLET, EX* Take 1 tablet by mouth once d* LOSARTAN 100 MG TABLET take 1 tablet by mouth once d* DICLOFENAC 1 % TOPICAL GEL Apply 2 g to affected area tw* LEG BRACE 1 Each continuous. DX: S89.92* FUROSEMIDE 20 MG TABLET take 1 tablet by mouth once d* LEG BRACE 1 Each continuous. WARFARIN 6 MG TABLET Take 7 mg Daily NITROGLYCERIN 0.4 MG SUBLINGU* Dissolve 1 tablet under the t* NYSTATIN 100,000 UNIT/GRAM TO* Apply 1 application to affect* MECLIZINE 12.5 MG TABLET Take 1 tablet by mouth three * TRAZODONE 50 MG TABLET Take 1 tablet by mouth daily * ALBUTEROL SULFATE CONCENTRATE* Inhale 0.5 mL as instructed o* COMPOUNDED PRESCRIPTION NEBULIZER SUPPLIES, MEDICATIO* COMPOUNDED PRESCRIPTION HOME BP CUFF, DX: HTN LABILE * Problem List As Of Date 01/02/2018 Noted Resolved AORTOCORONARY BYPASS STATUS [Z95.1] More... OVERWEIGHT [E66.9] 05/08/2015 ASHD (arteriosclerotic heart disease) [I25.10] INVALID FOR* More... DIABETES MELLITUS TYPE II-UNCOMPL [E11.9] INVALID FOR*02/12/2014 More... HYPERLIPIDEMIA NEC/NOS [E78.5] INVALID FOR*07/24/2015 More... Hematuria [599.7] INVALID FOR*07/24/2015 More... History of mechanical aortic valve replacement *INVALID FOR* More... Abdominal pain, unspecified site [R10.9] INVALID FOR*05/08/2015 Acute gastritis without mention of hemorrhage [*INVALID FOR*01/26/2016 Esophageal reflux [K21.9] INVALID FOR* More... Headache(784.0) [R51] INVALID FOR*01/26/2016 Bronchitis Recurrent [J40] INVALID FOR*03/21/2017 Hallux valgus (acquired) [M20.10] INVALID FOR*07/24/2015 Pain in limb [M79.609] INVALID FOR*01/26/2016 Goiter [E04.9] INVALID FOR* S/P AVR [Z95.2] INVALID FOR*01/26/2016 Multinodular thyroid [E04.2] INVALID FOR* Emphysema of lung (HCC) [J43.9] More... Hyperlipemia [E78.5] INVALID FOR* DM type 2 (diabetes mellitus, type 2) (HCC) [E1*INVALID FOR*05/08/2015 Hematuria [R31.9] INVALID FOR*10/23/2015 Smoking [F17.200] INVALID FOR*10/23/2015 Chronic anticoagulation [Z79.01] INVALID FOR* OAB (overactive bladder) [N32.81] INVALID FOR* More... Frequency of urination [R35.0] INVALID FOR*01/26/2016 Hypertension goal BP (blood pressure) < 140/90 *INVALID FOR* More... Diabetes mellitus type 2, uncontrolled, without*INVALID FOR*03/21/2017 More... Nicole rash of groin [B37.89] INVALID FOR* More... Stress at home [F43.9] INVALID FOR* Insomnia [G47.00] INVALID FOR* Financial difficulties [Z59.8] INVALID FOR* Obesity, Class III, BMI >= 40 (morbid obesity) *INVALID FOR* Hemoptysis [R04.2] INVALID FOR* Priority: A More... 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 Eczema [L30.9] Diabetes mellitus (HCC) [E11.9] COPD (chronic obstructive pulmonary disease) (H* Encounter Status:Closed by HIMANSHU AQUINO on 01/04/18 PROGRESS Observed: 12/22/2017 Status: COMPLETED Source: ARARAT 2:34 PM [facility] REPOSITORY HNO ID: [id number] Author: Keri Mo) Vera Service: (none) Author Type: Physician Type: Progress Notes Filed: 12/22/2017 2:34 PM Note Text: Agreed. Continue current regimen. Recheck in 1 week. PROGRESS Observed: 12/22/2017 Status: COMPLETED Source: ARARAT 2:19 PM [facility] REPOSITORY HNO ID: [id number] Author: Brenda Darby RN Service: (none) Author Type: (none) Type: Progress Notes Filed: 12/22/2017 2:21 PM Note Text: patient had inr completed at [facility] patients inr is 2.8 (patients inr range is 3.0-4.0) patient is currently taking 3mg Tues,thurs,Sat and 6mg all other days patients last dose change was on 12/15/17 due to a high level of 4.3 (dose at that time was 3mg Tues, and 6mg all other days) patient has had no changes in medication and no uninstructed missed doses and no change in diet Advised patient to continue on the same dose(s) and that they would only be contacted regarding dosage and follow up instructions after review with provider, if a change is needed. Written instructions given and patient verbalized understanding. Presently scheduled in 1 week (pt has been instructed to go to the lab for a blood draw due to the coumadin clinic will be closed) for follow up INR, since level is slightly low must most likely cause due to missing one 6mg dose. PROGRESS Observed: 12/19/2017 Status: COMPLETED Source: [place] 3:27 PM [facility] REPOSITORY HNO ID: [id number] Author: Wade Corado Service: (none) Author Type: Physician Type: Progress Notes Filed: 12/19/2017 5:12 PM Note Text: PERTINENT CARDIAC HISTORY Aortic stenosis - mechanical AVR, with elevated gradients 1996 (prosthetic/BSA mismatch) ASHD - CABGx3 1996 HTN HL DM CHF - diastolic ADHERENCE TO GUIDELINES JEFF-I or ARB for HF with prior LVEF<40 (NQF 0081) - N/A ASA or Plavix for ASHD (NQF 0067) - met Beta yi for ASHD with prior FL or prior LVEF<40 (NQF 0070) - N/A Beta yi for HF with prior LVEF<40 (NQF 0083) - N/A JEFF-I or ARB for ASHD with DM or prior LVEF<40 (NQF 0066) - N/A Statin therapy for ASHD or FHL or DM - met BMI documented and plan if >25 (NQF 0421) - lifestyle recommendation form Tobacco use screening and referral (NQF 0028) - lifestyle recommendation form Recommendation for whole food, plant based diet - lifestyle recommendation form CLINICAL IMPRESSION/PLAN: Flavia Case has stable valvular heart disease. She has been strongly advised to get her weight under better control for improvement in her valve gradient, hypertension, hyperlipidemia and diabetes. She has been advised that she can take an extra Lasix on a when necessary basis for control of her edema. If she does so, we'll update her electrolytes, although her potassium tends to run on the high side. I will see her in 8 months or as needed. If there is increased chest pain or shortness of breath, she has been advised to contact me. Written and verbal health teaching given to patient, patient verbalizes understanding and agrees with treatment plan. DIAGNOSIS FOR VISIT: AVR ASHD HISTORY OF PRESENT ILLNESS Flavia Caes returns for follow-up of her coronary disease and valvular heart disease. She reports chronic exercise intolerance. She's had no change in her intermittent atypical chest discomfort. She continues to be active. Her edema has been stable. She's had no bleeding. She is tolerating high-dose warfarin and aspirin. She's had no syncope, palpitations, TIAs, amaurosis or claudication. ALLERGIES: ALLERGIES Allergen Reactions - Advair Diskus [Flut* Other: See Comments CHEST PAIN - Asa [Salicylates] Unknown patient taking coumadin - on low dose ASA for valve dysfunction - Cephalexin Stomach pains-pt. ended up in hospital - Ekg Pads [Other] adhesive - Lisinopril Cough - Nexium [Esomeprazol* Other: See Comments Ineffective - Omeprazole Other: See Comments Ineffective - Tudorza Pressair [A* GI Upset - Ventolin [Albuterol* Other: See Comments Severe shaking, palpitations - Ventolin [Albuterol] Other: See Comments Ventolin MDI does not work, Pro Air works best CURRENT OUTPATIENT MEDICATIONS: tiZANidine (ZANAFLEX) 4 mg tablet take 1 tablet by mouth once daily at bedtime if needed ferrous sulfate 325 mg (65 mg iron) tablet take 1 tablet by mouth twice a day with meals metFORMIN ER (GLUCOPHAGE XR) 500 mg 24 hr tablet take 2 tablets by mouth twice a day oxybutynin ER (DITROPAN XL) 10 mg 24 hr tablet take 1 tablet by mouth once daily amLODIPine (NORVASC) 5 mg tablet Take 1 tablet by mouth once daily. mupirocin (BACTROBAN) 2 % ointment Apply 1 application to affected area three times daily. Location: Inside nose albuterol HFA (PROAIR HFA) 90 mcg/actuation inhaler Inhale 2 Puffs as instructed every 4 hours as needed. polyethylene glycol 3350 (MIRALAX, GLYCOLAX) 17 gram/dose powder Take 17 g by mouth once daily. dissolve in water. aspirin, enteric coated (ASPIRIN, ENTERIC COATED) 81 mg EC tablet take 1 tablet by mouth once daily warfarin (COUMADIN) 1 mg tablet Take 1 tablet by mouth once daily. atenolol (TENORMIN) 100 mg tablet take 1 tablet by mouth once daily warfarin (COUMADIN) 6 mg tablet TAKE 7 MG ON Monday AND MONDAY, TAKE 1 TABLET (6 MG) ON ALL OTHER DAYS, TAKE 6 MG AND 1 MG TAB TABLET TO MAKE 7 MG sertraline (ZOLOFT) 100 mg tablet take 1 tablet by mouth once daily isosorbide mononitrate ER (IMDUR) 30 mg 24 hr tablet Take 3 tablets by mouth once daily. atorvastatin (LIPITOR) 20 mg tablet take 1 tablet by mouth once daily loratadine (CLARITIN) 10 mg tablet Take 1 tablet by mouth once daily. lansoprazole (PREVACID) 30 mg capsule Take 1 capsule by mouth twice daily before meals (0600/1600). glipiZIDE XL (GLUCOTROL XL) 10 mg 24 hr tablet Take 1 tablet by mouth once daily. losartan (COZAAR) 100 mg tablet take 1 tablet by mouth once daily diclofenac sodium (VOLTAREN) 1 % topical gel Apply 2 g to affected area twice daily as needed. Both heels furosemide (LASIX) 20 mg tablet take 1 tablet by mouth once daily warfarin (COUMADIN) 6 mg tablet Take 7 mg Daily nitroglycerin sublingual (NITROSTAT) 0.4 mg SL tablet Dissolve 1 tablet under the tongue as needed. DISSOLVE ON TONGUE FOR CHEST PAIN. IF NO PAIN RELIEF, CALL 911 nystatin (MYCOSTATIN) cream Apply 1 application to affected area twice daily. Groin as needed meclizine (ANTIVERT) 12.5 mg tab Take 1 tablet by mouth three times daily as needed (dizziness). traZODone (DESYREL) 50 mg tablet Take 1 tablet by mouth daily at bedtime. COMPOUNDED PRESCRIPTION NEBULIZER SUPPLIES, MEDICATION CUP, TUBING FOR USE WITH NEBULIZER MACHINE DX J40.0 FREESTYLE LITE STRIPS test strip TEST twice a day FREESTYLE LANCETS 28 gauge misc TEST twice a day Leg Brace (KNEE SUPPORT BRACE) misc 1 Each continuous. DX: S89.92XA Leg Brace (KNEE SUPPORT BRACE) misc 1 Each continuous. albuterol (PROVENTIL) 5 mg/mL nebu Inhale 0.5 mL as instructed one time only for 1 dose. 1 DOSE NOW - BACK OFFICE. PLACE 0.5 ML PER DROPPER AND 2.5 ML OF NORMAL SALINE INTO RESERVOIR. >Blood Pressure Cuff Home HOME BP CUFF, DX: HTN LABILE Dx: i10 PHYSICAL EXAMINATION: VITAL SIGNS: BP 130/65 Pulse 65 Wt 233 lb (105.7kg) Chest: Clear to percussion and auscultation. Trachea is midline. Air entry is equal. Cardiac: Regular rhythm. Mechanical prosthetic valve sounds are normal. PMI is nondisplaced. There is a 2/6 mid peaking systolic ejection murmur. Carotids are brisk without bruits. JVP is less than 10 cm. Abdomen: Soft and nontender. There are no pulsatile masses or bruits. No liver enlargement. Bowel sounds are active. Extremities: 1 plus edema. Pulses are intact and symmetrical. EKG shows sinus rhythm. There are nonspecific repolarization changes. No change is seen since 11/22/16. Recent labs were reviewed. Hemoglobin is normal. Renal function is normal. LDL was 72. Electronically Signed: Wade Corado MD December 19, 2017 3:27 PM CC: Keri Gamez MD EKG1 Observed: 12/19/2017 Status: F Source: [place] 3:14 PM [facility] REPOSITORY NAME : FLAVIA CASE PID : [id number] : 1950 Gender : Female Race : ORD : Procedure Date : Dec 19 2017 15:14:27 Edit Date : Dec 21 2017 16:12:33 Diagnosis:NORMAL SINUS RHYTHM NON-SPECIFIC ST AND T WAVE CHANGES ABNORMAL ECG Confirmed by WADE CORADO MD ([id number]) on 12/21/2017 4:12:11 PM Ventricular Rate : 65 BPM Atrial Rate : 65 BPM P-R Interval : 166 ms QRS Duration : 104 ms Q-T Interval : 424 ms QTC Calculation(Bezet) : 440 ms P [place] : 4 degrees R [place] : 70 degrees T [place] : 45 degrees Test Reason : Location : 136 : [facility] Overread By : WADE CORDAO MD Edited By : WADE CORADO MD Referred By : WADE CORADO Acquired by : JULIENNE TORRES Observed: 12/19/2017 Status: COMPLETED Source: [place] 3:00 PM [facility] REPOSITORY Office Visit (CAWSTR) FLAVIA CASE ([id number]) 1950 F Date Time Provider Department 12/19/17 3:00 PM WADE CORADO E CAWSTR During your visit today, we recorded the following information about you: Pulse Blood pressure Weight 65/minute 130/65 105.7 kg Wade Corado MD 12/19/2017 5:12 PM Signed PERTINENT CARDIAC HISTORY Aortic stenosis - mechanical AVR, with elevated gradients 1996 (prosthetic/BSA mismatch) ASHD - CABGx3 1996 HTN HL DM CHF - diastolic ADHERENCE TO GUIDELINES JEFF-I or ARB for HF with prior LVEF<40 (NQF 0081) - N/A ASA or Plavix for ASHD (NQF 0067) - met Beta yi for ASHD with prior FL or prior LVEF<40 (NQF 0070) - N/A Beta yi for HF with prior LVEF<40 (NQF 0083) - N/A JEFF-I or ARB for ASHD with DM or prior LVEF<40 (NQF 0066) - N/A Statin therapy for ASHD or FHL or DM - met BMI documented and plan if >25 (NQF 0421) - lifestyle recommendation form Tobacco use screening and referral (NQF 0028) - lifestyle recommendation form Recommendation for whole food, plant based diet - lifestyle recommendation form CLINICAL IMPRESSION/PLAN: Flavia Case has stable valvular heart disease. She has been strongly advised to get her weight under better control for improvement in her valve gradient, hypertension, hyperlipidemia and diabetes. She has been advised that she can take an extra Lasix on a when necessary basis for control of her edema. If she does so, we'll update her electrolytes, although her potassium tends to run on the high side. I will see her in 8 months or as needed. If there is increased chest pain or shortness of breath, she has been advised to contact me. Written and verbal health teaching given to patient, patient verbalizes understanding and agrees with treatment plan. DIAGNOSIS FOR VISIT: AGNES CASE HISTORY OF PRESENT ILLNESS Flavia Case returns for follow-up of her coronary disease and valvular heart disease. She reports chronic exercise intolerance. She's had no change in her intermittent atypical chest discomfort. She continues to be active. Her edema has been stable. She's had no bleeding. She is tolerating high-dose warfarin and aspirin. She's had no syncope, palpitations, TIAs, amaurosis or claudication. ALLERGIES: ALLERGIES Allergen Reactions - Advair Diskus [Flut* Other: See Comments CHEST PAIN - Asa [Salicylates] Unknown patient taking coumadin - on low dose ASA for valve dysfunction - Cephalexin Stomach pains-pt. ended up in hospital - Ekg Pads [Other] adhesive - Lisinopril Cough - Nexium [Esomeprazol* Other: See Comments Ineffective - Omeprazole Other: See Comments Ineffective - Tudorza Pressair [A* GI Upset - Ventolin [Albuterol* Other: See Comments Severe shaking, palpitations - Ventolin [Albuterol] Other: See Comments Ventolin MDI does not work, Pro Air works best CURRENT OUTPATIENT MEDICATIONS: tiZANidine (ZANAFLEX) 4 mg tablet take 1 tablet by mouth once daily at bedtime if needed ferrous sulfate 325 mg (65 mg iron) tablet take 1 tablet by mouth twice a day with meals metFORMIN ER (GLUCOPHAGE XR) 500 mg 24 hr tablet take 2 tablets by mouth twice a day oxybutynin ER (DITROPAN XL) 10 mg 24 hr tablet take 1 tablet by mouth once daily amLODIPine (NORVASC) 5 mg tablet Take 1 tablet by mouth once daily. mupirocin (BACTROBAN) 2 % ointment Apply 1 application to affected area three times daily. Location: Inside nose albuterol HFA (PROAIR HFA) 90 mcg/actuation inhaler Inhale 2 Puffs as instructed every 4 hours as needed. polyethylene glycol 3350 (MIRALAX, GLYCOLAX) 17 gram/dose powder Take 17 g by mouth once daily. dissolve in water. aspirin, enteric coated (ASPIRIN, ENTERIC COATED) 81 mg EC tablet take 1 tablet by mouth once daily warfarin (COUMADIN) 1 mg tablet Take 1 tablet by mouth once daily. atenolol (TENORMIN) 100 mg tablet take 1 tablet by mouth once daily warfarin (COUMADIN) 6 mg tablet TAKE 7 MG ON Monday AND MONDAY, TAKE 1 TABLET (6 MG) ON ALL OTHER DAYS, TAKE 6 MG AND 1 MG TAB TABLET TO MAKE 7 MG sertraline (ZOLOFT) 100 mg tablet take 1 tablet by mouth once daily isosorbide mononitrate ER (IMDUR) 30 mg 24 hr tablet Take 3 tablets by mouth once daily. atorvastatin (LIPITOR) 20 mg tablet take 1 tablet by mouth once daily loratadine (CLARITIN) 10 mg tablet Take 1 tablet by mouth once daily. lansoprazole (PREVACID) 30 mg capsule Take 1 capsule by mouth twice daily before meals (0600/1600). glipiZIDE XL (GLUCOTROL XL) 10 mg 24 hr tablet Take 1 tablet by mouth once daily. losartan (COZAAR) 100 mg tablet take 1 tablet by mouth once daily diclofenac sodium (VOLTAREN) 1 % topical gel Apply 2 g to affected area twice daily as needed. Both heels furosemide (LASIX) 20 mg tablet take 1 tablet by mouth once daily warfarin (COUMADIN) 6 mg tablet Take 7 mg Daily nitroglycerin sublingual (NITROSTAT) 0.4 mg SL tablet Dissolve 1 tablet under the tongue as needed. DISSOLVE ON TONGUE FOR CHEST PAIN. IF NO PAIN RELIEF, CALL 911 nystatin (MYCOSTATIN) cream Apply 1 application to affected area twice daily. Groin as needed meclizine (ANTIVERT) 12.5 mg tab Take 1 tablet by mouth three times daily as needed (dizziness). traZODone (DESYREL) 50 mg tablet Take 1 tablet by mouth daily at bedtime. COMPOUNDED PRESCRIPTION NEBULIZER SUPPLIES, MEDICATION CUP, TUBING FOR USE WITH NEBULIZER MACHINE DX J40.0 FREESTYLE LITE STRIPS test strip TEST twice a day FREESTYLE LANCETS 28 gauge misc TEST twice a day Leg Brace (KNEE SUPPORT BRACE) misc 1 Each continuous. DX: S89.92XA Leg Brace (KNEE SUPPORT BRACE) misc 1 Each continuous. albuterol (PROVENTIL) 5 mg/mL nebu Inhale 0.5 mL as instructed one time only for 1 dose. 1 DOSE NOW - BACK OFFICE. PLACE 0.5 ML PER DROPPER AND 2.5 ML OF NORMAL SALINE INTO RESERVOIR. >Blood Pressure Cuff Home HOME BP CUFF, DX: HTN LABILE Dx: i10 PHYSICAL EXAMINATION: VITAL SIGNS: BP 130/65 Pulse 65 Wt 233 lb (105.7kg) Chest: Clear to percussion and auscultation. Trachea is midline. Air entry is equal. Cardiac: Regular rhythm. Mechanical prosthetic valve sounds are normal. PMI is nondisplaced. There is a 2/6 mid peaking systolic ejection murmur. Carotids are brisk without bruits. JVP is less than 10 cm. Abdomen: Soft and nontender. There are no pulsatile masses or bruits. No liver enlargement. Bowel sounds are active. Extremities: 1 plus edema. Pulses are intact and symmetrical. EKG shows sinus rhythm. There are nonspecific repolarization changes. No change is seen since 11/22/16. Recent labs were reviewed. Hemoglobin is normal. Renal function is normal. LDL was 72. Electronically Signed: Wade Corado MD December 19, 2017 3:27 PM CC: MD Wade Curiel MD 12/19/2017 3:27 PM Signed LIFESTYLE CHANGE A healthy lifestyle is the most important component of your overall treatment plan. Please give serious thought to the following areas and commit to making repair tech changes. EAT A WHOLE FOOD, PLANT BASED DIET The nutrition your body gets is more important than the medicine you take. What matters most is the overall way you eat. We encourage you to minimize the use of animal products (which include dairy and all meats except fatty fish) and use whole, unprocessed plant foods to provide your protein, vitamins and other nutrients. We have a lot of information to share with you on this topic. This is not a diet. It is a way of life that you will keep with you. EXERCISE REGULARLY It is not important to spend hours in the gym, lifting weights and perspiring heavily. A total of 2-3 hours per week of aerobic (causing you to be moderately short of breath) exercise is sufficient to improve your health. Talk to us before you begin a new exercise program, if you have heart disease or experience shortness of breath or chest pain. REDUCE STRESS Chronic emotional and physical stress leads to disease. Ways of reducing stress include meditation, visualization, prayer, yoga and other forms of relaxation therapy. Consistency is the cabral. Find a technique that works for you and do it every day. CULTIVATE RELATIONSHIPS Loneliness and isolation have a major negative impact on health. Seek out others who can love, care for and nurture you. Avoid hurtful relationships. MAINTAIN IDEAL BODY WEIGHT The best way to do this is to do all the things above. Our bodies naturally find the right weight if we keep moving and feed ourselves the right food. If your BMI is greater than 25, we strongly recommend a referral to a weight management program. Please speak to us or your family physician about available programs. AVOID NICOTINE IN ALL FORMS This includes all tobacco products, whether chewed, smoked, vaped, or rubbed on the skin. Smoking cessation programs, which can make use of tobacco substitutes, medications to suppress cravings and behavior management, are available. Please contact your family physician about programs in your area. Referring Provider: WADE CORADO [[id number]] Allergies As of Date: 12/19/2017 Noted Allergy Reaction ADVAIR DISKUS (FLUTICASONE-SALMET*05/16/2011 14 - Other: See Comments Comments: CHEST PAIN ASA (SALICYLATES) 05/10/2005 16 - Unknown Comments: patient taking coumadin - on low dose ASA for valve dysfunction CEPHALEXIN 02/21/2008 Comments: Stomach pains-pt. ended up in hospital EKG PADS [Other] 05/10/2005 Comments: adhesive LISINOPRIL 07/03/2014 3 - Cough NEXIUM (ESOMEPRAZOLE MAGNESIUM) 01/26/2016 14 - Other: See Comments Comments: Ineffective OMEPRAZOLE 01/26/2016 14 - Other: See Comments Comments: Ineffective TUDORZA PRESSAIR (ACLIDINIUM BROM*01/26/2016 8 - GI Upset VENTOLIN (ALBUTEROL SULFATE) 10/24/2017 14 - Other: See Comments Comments: Severe shaking, palpitations JANY (ALBUTEROL) 01/26/2016 14 - Other: See Comments Comments: Jany LEGER does not work, Pro Air works best Date Reviewed: 12/19/2017 Reviewed by: Laina Aponte RN - Fully Assessed Reason for Visit: Recheck [92] Primary Visit Diagnosis:ASHD (arteriosclerotic heart disease) [I25.10] Other Visit Diagnoses:S/P AVR [Z95.2] Hypertension, essential [I10] Order(s):ECG COMPLETE W INTERPRETATION [ECG01] Order #: [id number] FUTURE COMPLETE ECG [9788713] Order #: [id number]. #:[id number]--[id number]: 1 Prescriptions as of 12/19/2017 Sig: TIZANIDINE 4 MG TABLET take 1 tablet by mouth once d* FERROUS SULFATE 325 MG (65 MG* take 1 tablet by mouth twice * METFORMIN ER 500 MG TABLET,EX* take 2 tablets by mouth twice* OXYBUTYNIN CHLORIDE ER 10 MG * take 1 tablet by mouth once d* AMLODIPINE 5 MG TABLET Take 1 tablet by mouth once d* MUPIROCIN 2 % TOPICAL OINTMENT Apply 1 application to affect* ALBUTEROL SULFATE HFA 90 MCG/* Inhale 2 Puffs as instructed * POLYETHYLENE GLYCOL 3350 17 G* Take 17 g by mouth once daily* ASPIRIN 81 MG TABLET,DELAYED * take 1 tablet by mouth once d* WARFARIN 1 MG TABLET Take 1 tablet by mouth once d* ATENOLOL 100 MG TABLET take 1 tablet by mouth once d* WARFARIN 6 MG TABLET TAKE 7 MG ON Monday* SERTRALINE 100 MG TABLET take 1 tablet by mouth once d* ISOSORBIDE MONONITRATE ER 30 * Take 3 tablets by mouth once * ATORVASTATIN 20 MG TABLET take 1 tablet by mouth once d* LORATADINE 10 MG TABLET Take 1 tablet by mouth once d* LANSOPRAZOLE 30 MG CAPSULE,DE* Take 1 capsule by mouth twice* GLIPIZIDE ER 10 MG TABLET, EX* Take 1 tablet by mouth once d* LOSARTAN 100 MG TABLET take 1 tablet by mouth once d* DICLOFENAC 1 % TOPICAL GEL Apply 2 g to affected area tw* FUROSEMIDE 20 MG TABLET take 1 tablet by mouth once d* WARFARIN 6 MG TABLET Take 7 mg Daily NITROGLYCERIN 0.4 MG SUBLINGU* Dissolve 1 tablet under the t* NYSTATIN 100,000 UNIT/GRAM TO* Apply 1 application to affect* MECLIZINE 12.5 MG TABLET Take 1 tablet by mouth three * TRAZODONE 50 MG TABLET Take 1 tablet by mouth daily * COMPOUNDED PRESCRIPTION NEBULIZER SUPPLIES, MEDICATIO* FREESTYLE LITE STRIPS TEST twice a day FREESTYLE LANCETS 28 GAUGE TEST twice a day LEG BRACE 1 Each continuous. DX: S89.92* LEG BRACE 1 Each continuous. ALBUTEROL SULFATE CONCENTRATE* Inhale 0.5 mL as instructed o* COMPOUNDED PRESCRIPTION HOME BP CUFF, DX: HTN LABILE * Problem List As Of Date 12/19/2017 Noted Resolved AORTOCORONARY BYPASS STATUS [Z95.1] More... OVERWEIGHT [E66.9] 05/08/2015 ASHD (arteriosclerotic heart disease) [I25.10] INVALID FOR* More... DIABETES MELLITUS TYPE II-UNCOMPL [E11.9] INVALID FOR*02/12/2014 More... HYPERLIPIDEMIA NEC/NOS [E78.5] INVALID FOR*07/24/2015 More... Hematuria [599.7] INVALID FOR*07/24/2015 More... History of mechanical aortic valve replacement *INVALID FOR* More... Abdominal pain, unspecified site [R10.9] INVALID FOR*05/08/2015 Acute gastritis without mention of hemorrhage [*INVALID FOR*01/26/2016 Esophageal reflux [K21.9] INVALID FOR* More... Headache(784.0) [R51] INVALID FOR*01/26/2016 Bronchitis Recurrent [J40] INVALID FOR*03/21/2017 Hallux valgus (acquired) [M20.10] INVALID FOR*07/24/2015 Pain in limb [M79.609] INVALID FOR*01/26/2016 Goiter [E04.9] INVALID FOR* S/P AVR [Z95.2] INVALID FOR*01/26/2016 Multinodular thyroid [E04.2] INVALID FOR* Emphysema of lung (HCC) [J43.9] More... Hyperlipemia [E78.5] INVALID FOR* DM type 2 (diabetes mellitus, type 2) (HCC) [E1*INVALID FOR*05/08/2015 Hematuria [R31.9] INVALID FOR*10/23/2015 Smoking [F17.200] INVALID FOR*10/23/2015 Chronic anticoagulation [Z79.01] INVALID FOR* OAB (overactive bladder) [N32.81] INVALID FOR* More... Frequency of urination [R35.0] INVALID FOR*01/26/2016 Hypertension goal BP (blood pressure) < 140/90 *INVALID FOR* More... Diabetes mellitus type 2, uncontrolled, without*INVALID FOR*03/21/2017 More... Nicole rash of groin [B37.89] INVALID FOR* More... Stress at home [F43.9] INVALID FOR* Insomnia [G47.00] INVALID FOR* Financial difficulties [Z59.8] INVALID FOR* Obesity, Class III, BMI >= 40 (morbid obesity) *INVALID FOR* Hemoptysis [R04.2] INVALID FOR* Priority: A More... 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 Eczema [L30.9] Diabetes mellitus (HCC) [E11.9] COPD (chronic obstructive pulmonary disease) (H* Other instructions from your clinician: LIFESTYLE CHANGE A healthy lifestyle is the most important component of your overall treatment plan. Please give serious thought to the following areas and commit to making repair tech changes. EAT A WHOLE FOOD, PLANT BASED DIET The nutrition your body gets is more important than the medicine you take. What matters most is the overall way you eat. We encourage you to minimize the use of animal products (which include dairy and all meats except fatty fish) and use whole, unprocessed plant foods to provide your protein, vitamins and other nutrients. We have a lot of information to share with you on this topic. This is not a diet. It is a way of life that you will keep with you. EXERCISE REGULARLY It is not important to spend hours in the gym, lifting weights and perspiring heavily. A total of 2-3 hours per week of aerobic (causing you to be moderately short of breath) exercise is sufficient to improve your health. Talk to us before you begin a new exercise program, if you have heart disease or experience shortness of breath or chest pain. REDUCE STRESS Chronic emotional and physical stress leads to disease. Ways of reducing stress include meditation, visualization, prayer, yoga and other forms of relaxation therapy. Consistency is the cabral. Find a technique that works for you and do it every day. CULTIVATE RELATIONSHIPS Loneliness and isolation have a major negative impact on health. Seek out others who can love, care for and nurture you. Avoid hurtful relationships. MAINTAIN IDEAL BODY WEIGHT The best way to do this is to do all the things above. Our bodies naturally find the right weight if we keep moving and feed ourselves the right food. If your BMI is greater than 25, we strongly recommend a referral to a weight management program. Please speak to us or your family physician about available programs. AVOID NICOTINE IN ALL FORMS This includes all tobacco products, whether chewed, smoked, vaped, or rubbed on the skin. Smoking cessation programs, which can make use of tobacco substitutes, medications to suppress cravings and behavior management, are available. Please contact your family physician about programs in your area. Encounter Status:Closed by WADE CORADO MD on 12/19/17 CNNURSE Observed: 12/19/2017 Status: COMPLETED Source: [facility] 2:45 PM [facility] REPOSITORY Nurse Visit (CAWSTR) FLAVIA CASE ([id number]) 1950 F Date Time Provider Department 12/19/17 2:45 PM [facility] During your visit today, we recorded the following information about you: Laina Aponte RN 12/20/2017 5:14 PM Signed Ekg completed per order. Pt tolerated procedure without distress. Laina Aponte RN Referring Provider: WADE CORADO [[id number]] Allergies As of Date: 12/19/2017 Noted Allergy Reaction ADVAIR DISKUS (FLUTICASONE-SALMET*05/16/2011 14 - Other: See Comments Comments: CHEST PAIN ASA (SALICYLATES) 05/10/2005 16 - Unknown Comments: patient taking coumadin - on low dose ASA for valve dysfunction CEPHALEXIN 02/21/2008 Comments: Stomach pains-pt. ended up in hospital EKG PADS [Other] 05/10/2005 Comments: adhesive LISINOPRIL 07/03/2014 3 - Cough NEXIUM (ESOMEPRAZOLE MAGNESIUM) 01/26/2016 14 - Other: See Comments Comments: Ineffective OMEPRAZOLE 01/26/2016 14 - Other: See Comments Comments: Ineffective TUDORZA PRESSAIR (ACLIDINIUM BROM*01/26/2016 8 - GI Upset VENTOLIN (ALBUTEROL SULFATE) 10/24/2017 14 - Other: See Comments Comments: Severe shaking, palpitations VENTOLIN (ALBUTEROL) 01/26/2016 14 - Other: See Comments Comments: Ventolin MDI does not work, Pro Air works best Date Reviewed: 12/19/2017 Reviewed by: Laina Aponte RN - Fully Assessed Reason for Visit: Nurse Visit [792] Visit Diagnoses:ASHD (arteriosclerotic heart disease) [I25.10] S/P AVR [Z95.2] Hypertension, essential [I10] Order(s):ECG COMPLETE W INTERPRETATION [ECG01] Order #: [id number] Prescriptions as of 12/19/2017 Sig: TIZANIDINE 4 MG TABLET take 1 tablet by mouth once d* FERROUS SULFATE 325 MG (65 MG* take 1 tablet by mouth twice * METFORMIN ER 500 MG TABLET,EX* take 2 tablets by mouth twice* OXYBUTYNIN CHLORIDE ER 10 MG * take 1 tablet by mouth once d* AMLODIPINE 5 MG TABLET Take 1 tablet by mouth once d* MUPIROCIN 2 % TOPICAL OINTMENT Apply 1 application to affect* ALBUTEROL SULFATE HFA 90 MCG/* Inhale 2 Puffs as instructed * POLYETHYLENE GLYCOL 3350 17 G* Take 17 g by mouth once daily* ASPIRIN 81 MG TABLET,DELAYED * take 1 tablet by mouth once d* WARFARIN 1 MG TABLET Take 1 tablet by mouth once d* ATENOLOL 100 MG TABLET take 1 tablet by mouth once d* WARFARIN 6 MG TABLET TAKE 7 MG ON Monday* SERTRALINE 100 MG TABLET take 1 tablet by mouth once d* ISOSORBIDE MONONITRATE ER 30 * Take 3 tablets by mouth once * FREESTYLE LITE STRIPS TEST twice a day FREESTYLE LANCETS 28 GAUGE TEST twice a day ATORVASTATIN 20 MG TABLET take 1 tablet by mouth once d* LORATADINE 10 MG TABLET Take 1 tablet by mouth once d* LANSOPRAZOLE 30 MG CAPSULE,DE* Take 1 capsule by mouth twice* GLIPIZIDE ER 10 MG TABLET, EX* Take 1 tablet by mouth once d* LOSARTAN 100 MG TABLET take 1 tablet by mouth once d* DICLOFENAC 1 % TOPICAL GEL Apply 2 g to affected area tw* LEG BRACE 1 Each continuous. DX: S89.92* FUROSEMIDE 20 MG TABLET take 1 tablet by mouth once d* LEG BRACE 1 Each continuous. WARFARIN 6 MG TABLET Take 7 mg Daily NITROGLYCERIN 0.4 MG SUBLINGU* Dissolve 1 tablet under the t* NYSTATIN 100,000 UNIT/GRAM TO* Apply 1 application to affect* MECLIZINE 12.5 MG TABLET Take 1 tablet by mouth three * TRAZODONE 50 MG TABLET Take 1 tablet by mouth daily * ALBUTEROL SULFATE CONCENTRATE* Inhale 0.5 mL as instructed o* COMPOUNDED PRESCRIPTION NEBULIZER SUPPLIES, MEDICATIO* COMPOUNDED PRESCRIPTION HOME BP CUFF, DX: HTN LABILE * Problem List As Of Date 12/19/2017 Noted Resolved AORTOCORONARY BYPASS STATUS [Z95.1] More... OVERWEIGHT [E66.9] 05/08/2015 ASHD (arteriosclerotic heart disease) [I25.10] INVALID FOR* More... DIABETES MELLITUS TYPE II-UNCOMPL [E11.9] INVALID FOR*02/12/2014 More... HYPERLIPIDEMIA NEC/NOS [E78.5] INVALID FOR*07/24/2015 More... Hematuria [599.7] INVALID FOR*07/24/2015 More... History of mechanical aortic valve replacement *INVALID FOR* More... Abdominal pain, unspecified site [R10.9] INVALID FOR*05/08/2015 Acute gastritis without mention of hemorrhage [*INVALID FOR*01/26/2016 Esophageal reflux [K21.9] INVALID FOR* More... Headache(784.0) [R51] INVALID FOR*01/26/2016 Bronchitis Recurrent [J40] INVALID FOR*03/21/2017 Hallux valgus (acquired) [M20.10] INVALID FOR*07/24/2015 Pain in limb [M79.609] INVALID FOR*01/26/2016 Goiter [E04.9] INVALID FOR* S/P AVR [Z95.2] INVALID FOR*01/26/2016 Multinodular thyroid [E04.2] INVALID FOR* Emphysema of lung (HCC) [J43.9] More... Hyperlipemia [E78.5] INVALID FOR* DM type 2 (diabetes mellitus, type 2) (HCC) [E1*INVALID FOR*05/08/2015 Hematuria [R31.9] INVALID FOR*10/23/2015 Smoking [F17.200] INVALID FOR*10/23/2015 Chronic anticoagulation [Z79.01] INVALID FOR* OAB (overactive bladder) [N32.81] INVALID FOR* More... Frequency of urination [R35.0] INVALID FOR*01/26/2016 Hypertension goal BP (blood pressure) < 140/90 *INVALID FOR* More... Diabetes mellitus type 2, uncontrolled, without*INVALID FOR*03/21/2017 More... Nicole rash of groin [B37.89] INVALID FOR* More... Stress at home [F43.9] INVALID FOR* Insomnia [G47.00] INVALID FOR* Financial difficulties [Z59.8] INVALID FOR* Obesity, Class III, BMI >= 40 (morbid obesity) *INVALID FOR* Hemoptysis [R04.2] INVALID FOR* Priority: A More... 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 Eczema [L30.9] Diabetes mellitus (HCC) [E11.9] COPD (chronic obstructive pulmonary disease) (H* Visit Notes: >> Laina Aponte RN MonDec 20, 2017 5:14 PM Status: Signed Ekg completed per order. Pt tolerated procedure without distress. Laina Aponte RN Encounter Status:Closed by LAINA APONTE RN on 12/20/17 PROGRESS Observed: 12/15/2017 Status: COMPLETED Source: [facility] 3:57 PM [facility] HNO ID: [id number] Author: Briseida Gunn LPN Service: (none) Author Type: (none) Type: Progress Notes Filed: 12/15/2017 3:59 PM Note Text: patient notified with understanding and correctly read back instructions. Tracker updated. PROGRESS Observed: 12/15/2017 Status: COMPLETED Source: [facility] 3:20 PM [facility] HNO ID: [id number] Author: Keri Mo) Vera Service: (none) Author Type: Physician Type: Progress Notes Filed: 12/15/2017 3:21 PM Note Text: INR still supratherapeutic. Hold next dose. Decrease coumadin to 3mg Tues, Thurs, Sat and 6 mg all other days. Recheck in 1 week. PROGRESS Observed: 12/15/2017 Status: COMPLETED Source: [facility] 3:10 PM [facility] [place] REPOSITORY HNO ID: [id number] Author: Brenda Darby RN Service: (none) Author Type: (none) Type: Progress Notes Filed: 12/15/2017 3:12 PM Note Text: patient had inr completed at [facility] patients inr is 4.3 (patients inr rangeis 3.0-4.0) patient is currently taking 3mg Tues and 6mg all other days patients last dose change was on 12/08/17 due to a high level of 4.8 (dose at that time was 6mg daily) patient has had no changes in medication except for coumadin and no missed doses and no change in diet Advised patient that they would be contacted regarding medication dose and when to follow up after information is reviewed by provider. After provider review please contact the patient with information and schedule follow up appointment with coumadin clinic. FYI - patient has been scheduled for a 1 week follow up inr on 12/22/17 PROGRESS Observed: 12/08/2017 Status: COMPLETED Source: [facility] 5:40 PM [facility] REPOSITORY HNO ID: [id number] Author: Natasha SamuelsRn) Adelina Service: (none) Author Type: Registered Nurse Type: Progress Notes Filed: 12/12/2017 1:42 PM Note Text: Patient returned call. Patient repeated instructions left on voicemail back to nurse correctly. Aware to have lab rechecked in 1 week. PROGRESS Observed: 12/08/2017 Status: COMPLETED Source: [facility] 4:49 PM [facility] [place] REPOSITORY HNO ID: [id number] Author: Briseida Gunn LPN Service: (none) Author Type: (none) Type: Progress Notes Filed: 12/12/2017 1:42 PM Note Text: left message on secure voicemail with instructions and to return call to office to confirm message received. PROGRESS Observed: 12/08/2017 Status: COMPLETED Source: [facility] 3:51 PM [facility] REPOSITORY HNO ID: [id number] Author: Keri Gamez Service: (none) Author Type: Physician Type: Progress Notes Filed: 12/08/2017 3:52 PM Note Text: INR supratherapeutic. Hold next dose, decrease to 3 mg Tues, 6 mg all other days. Recheck in 1 week. PROGRESS Observed: 12/08/2017 Status: COMPLETED Source: [facility] 3:32 PM [facility] REPOSITORY HNO ID: [id number] Author: Brenda Darby RN Service: (none) Author Type: (none) Type: Progress Notes Filed: 12/08/2017 3:33 PM Note Text: patient had inr completed at [facility] patients inr is 4.8 (patients inr range is 3.0-4.0) patient is currently taking 6mg daily patients last dose change was on 10/03/17 due to a high level of 5.5 (dose at that time was 7mg daily) patient has had no changes in medication and no missed doses and no change in diet Advised patient that they would be contacted regarding medication dose and when to follow up after information is reviewed by provider. After provider review please contact the patient with information and schedule follow up appointment with coumadin clinic. FYI - patient has been scheduled for a 1 week follow up inr on 12/15/17 PROGRESS Observed: 12/08/2017 Status: COMPLETED Source: [facility] 2:33 PM [facility] REPOSITORY HNO ID: [id number] Author: Jane Dejesus LPN Service: (none) Author Type: (none) Type: Progress Notes Filed: 12/08/2017 2:43 PM Note Text: Manual Readin/50 Pulse: 70 Reason for blood pressure check - Last BP elevated and Medication adjustment Patient is: Taking medication as prescribed Yes Took medication today Yes If no, date medication last taken N/A Experiencing side effects No BP continued to be elevated at nurse visit 11/07/17. Was started on Amlodipine 5mg daily. Tolerating medication well. Does report increased fatigue. Denies any chest pain, unusual shortness of breath, dizziness, or headaches. Occasional caffeine use; none today. Past personal history of tobacco use; no current exposure. Alert and oriented. Pt has been identified by name and birthdate: Yes Allergies reviewed: Yes Latex allergy: no. Medication - prescribed and OTC reviewed and updated: Yes Do you need any prescription refills prior to your next visit: No Health Maintenance: Reviewed and not up to date and provider notified Patient advised to continue with current medications and would be contacted with any further instructions after review by PCP. Jane Dejesus LPN CNNURSE Observed: 12/08/2017 Status: COMPLETED Source: [facility] 2:30 PM [facility] REPOSITORY Nurse Visit (FAMPWS) FLAVIA CASE ([id number]) 1950 F Date Time Provider Department 12/08/17 2:30 PM [place] [facility] During your visit today, we recorded the following information about you: Pulse Blood pressure 70/minute 114/50 Jane Dejesus LPN 12/08/2017 2:43 PM Signed Manual Readin/50 Pulse: 70 Reason for blood pressure check - Last BP elevated and Medication adjustment Patient is: Taking medication as prescribed Yes Took medication today Yes If no, date medication last taken N/A Experiencing side effects No BP continued to be elevated at nurse visit 11/07/17. Was started on Amlodipine 5mg daily. Tolerating medication well. Does report increased fatigue. Denies any chest pain, unusual shortness of breath, dizziness, or headaches. Occasional caffeine use; none today. Past personal history of tobacco use; no current exposure. Alert and oriented. Pt has been identified by name and birthdate: Yes Allergies reviewed: Yes Latex allergy: no. Medication - prescribed and OTC reviewed and updated: Yes Do you need any prescription refills prior to your next visit: No Health Maintenance: Reviewed and not up to date and provider notified Patient advised to continue with current medications and would be contacted with any further instructions after review by PCP. Jane Dejesus LPN Referring Provider: SELF [[id number]] Allergies As of Date: 12/08/2017 Noted Allergy Reaction ADVAIR DISKUS (FLUTICASONE-SALMET*05/16/2011 14 - Other: See Comments Comments: CHEST PAIN ASA (SALICYLATES) 05/10/2005 16 - Unknown Comments: patient taking coumadin - on low dose ASA for valve dysfunction CEPHALEXIN 02/21/2008 Comments: Stomach pains-pt. ended up in hospital EKG PADS [Other] 05/10/2005 Comments: adhesive LISINOPRIL 07/03/2014 3 - Cough NEXIUM (ESOMEPRAZOLE MAGNESIUM) 01/26/2016 14 - Other: See Comments Comments: Ineffective OMEPRAZOLE 01/26/2016 14 - Other: See Comments Comments: Ineffective TUDORZA PRESSAIR (ACLIDINIUM BROM*01/26/2016 8 - GI Upset VENTOLIN (ALBUTEROL SULFATE) 10/24/2017 14 - Other: See Comments Comments: Severe shaking, palpitations VENTOLIN (ALBUTEROL) 01/26/2016 14 - Other: See Comments Comments: Ventolin MDI does not work, Pro Air works best Date Reviewed: 10/24/2017 Reviewed by: Pepito Li Ma - Fully Assessed Reason for Visit: Blood Pressure Check [195] Primary Visit Diagnosis:Essential hypertension, malignant [I10] Prescriptions as of 12/08/2017 Sig: METFORMIN ER 500 MG TABLET,EX* take 2 tablets by mouth twice* OXYBUTYNIN CHLORIDE ER 10 MG * take 1 tablet by mouth once d* AMLODIPINE 5 MG TABLET Take 1 tablet by mouth once d* MUPIROCIN 2 % TOPICAL OINTMENT Apply 1 application to affect* ALBUTEROL SULFATE HFA 90 MCG/* Inhale 2 Puffs as instructed * POLYETHYLENE GLYCOL 3350 17 G* Take 17 g by mouth once daily* TIZANIDINE 4 MG TABLET take 1 tablet by mouth at bed* FERROUS SULFATE 325 MG (65 MG* take 1 tablet by mouth twice * ASPIRIN 81 MG TABLET,DELAYED * take 1 tablet by mouth once d* WARFARIN 1 MG TABLET Take 1 tablet by mouth once d* ATENOLOL 100 MG TABLET take 1 tablet by mouth once d* WARFARIN 6 MG TABLET TAKE 7 MG ON Monday* SERTRALINE 100 MG TABLET take 1 tablet by mouth once d* ISOSORBIDE MONONITRATE ER 30 * Take 3 tablets by mouth once * FREESTYLE LITE STRIPS TEST twice a day FREESTYLE LANCETS 28 GAUGE TEST twice a day ATORVASTATIN 20 MG TABLET take 1 tablet by mouth once d* LORATADINE 10 MG TABLET Take 1 tablet by mouth once d* LANSOPRAZOLE 30 MG CAPSULE,DE* Take 1 capsule by mouth twice* GLIPIZIDE ER 10 MG TABLET, EX* Take 1 tablet by mouth once d* LOSARTAN 100 MG TABLET take 1 tablet by mouth once d* DICLOFENAC 1 % TOPICAL GEL Apply 2 g to affected area tw* LEG BRACE 1 Each continuous. DX: S89.92* FUROSEMIDE 20 MG TABLET take 1 tablet by mouth once d* LEG BRACE 1 Each continuous. WARFARIN 6 MG TABLET Take 7 mg Daily NITROGLYCERIN 0.4 MG SUBLINGU* Dissolve 1 tablet under the t* NYSTATIN 100,000 UNIT/GRAM TO* Apply 1 application to affect* MECLIZINE 12.5 MG TABLET Take 1 tablet by mouth three * TRAZODONE 50 MG TABLET Take 1 tablet by mouth daily * ALBUTEROL SULFATE CONCENTRATE* Inhale 0.5 mL as instructed o* COMPOUNDED PRESCRIPTION NEBULIZER SUPPLIES, MEDICATIO* COMPOUNDED PRESCRIPTION HOME BP CUFF, DX: HTN LABILE * Problem List As Of Date 12/08/2017 Noted Resolved AORTOCORONARY BYPASS STATUS [Z95.1] More... OVERWEIGHT [E66.9] 05/08/2015 ASHD (arteriosclerotic heart disease) [I25.10] INVALID FOR* More... DIABETES MELLITUS TYPE II-UNCOMPL [E11.9] INVALID FOR*02/12/2014 More... HYPERLIPIDEMIA NEC/NOS [E78.5] INVALID FOR*07/24/2015 More... Hematuria [599.7] INVALID FOR*07/24/2015 More... History of mechanical aortic valve replacement *INVALID FOR* More... Abdominal pain, unspecified site [R10.9] INVALID FOR*05/08/2015 Acute gastritis without mention of hemorrhage [*INVALID FOR*01/26/2016 Esophageal reflux [K21.9] INVALID FOR* More... Headache(784.0) [R51] INVALID FOR*01/26/2016 Bronchitis Recurrent [J40] INVALID FOR*03/21/2017 Hallux valgus (acquired) [M20.10] INVALID FOR*07/24/2015 Pain in limb [M79.609] INVALID FOR*01/26/2016 Goiter [E04.9] INVALID FOR* S/P AVR [Z95.2] INVALID FOR*01/26/2016 Multinodular thyroid [E04.2] INVALID FOR* Emphysema of lung (HCC) [J43.9] More... Hyperlipemia [E78.5] INVALID FOR* DM type 2 (diabetes mellitus, type 2) (HCC) [E1*INVALID FOR*05/08/2015 Hematuria [R31.9] INVALID FOR*10/23/2015 Smoking [F17.200] INVALID FOR*10/23/2015 Chronic anticoagulation [Z79.01] INVALID FOR* OAB (overactive bladder) [N32.81] INVALID FOR* More... Frequency of urination [R35.0] INVALID FOR*01/26/2016 Hypertension goal BP (blood pressure) < 140/90 *INVALID FOR* More... Diabetes mellitus type 2, uncontrolled, without*INVALID FOR*03/21/2017 More... Nicole rash of groin [B37.89] INVALID FOR* More... Stress at home [F43.9] INVALID FOR* Insomnia [G47.00] INVALID FOR* Financial difficulties [Z59.8] INVALID FOR* Obesity, Class III, BMI >= 40 (morbid obesity) *INVALID FOR* Hemoptysis [R04.2] INVALID FOR* Priority: A More... 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 Eczema [L30.9] Diabetes mellitus (HCC) [E11.9] COPD (chronic obstructive pulmonary disease) (H* Encounter Status:Closed by JANE DEJESUS LPN on 12/08/17 PROGRESS Observed: 11/24/2017 Status: COMPLETED Source: [facility] 3:56 PM [facility] REPOSITORY HNO ID: [id number] Author: Keri Mo) Vera Service: (none) Author Type: Physician Type: Progress Notes Filed: 11/24/2017 3:57 PM Note Text: Reviewed. PROGRESS Observed: 11/24/2017 Status: COMPLETED Source: [facility] 3:26 PM [facility] REPOSITORY HNO ID: [id number] Author: Himanshu SamuelsRn) Sybil Service: (none) Author Type: Registered Nurse Type: Progress Notes Filed: 11/24/2017 3:50 PM Note Text: PRIMARY CARE COORDINATION FOLLOW-UP NOTE Provider Action/FYI Increased amlodipine to 5 mg daily Home BP elevated and almost went to ER for chest pain. Noted her atenolol wasn't in medications so she started taking it immediately and felt better shortly after. BP was running 170's systolic, now down to 139/60 today [facility] scheduled BP ck for 11/28 Patient identified by name and date of . YES Spoke to patient Summary: States she inadvertently forgot to put her atenolol in her medications for the past week. Home BP was elevated and she almost went to ER for chest pain. Noted her atenolol wasn't in medications so she started taking it immediately and felt better shortly after. BP was running 170's systolic, now down to 139/60 today Discussed scheduling BP check, scheduled for 11/28 Verbalizes compliance with increasing amlodipine to 5 mg daily [employer] plan for next outreach: Will follow up one month Signature Himanshu Aquino RN November 24, 2017 ANAIS Observed: 11/24/2017 Status: COMPLETED Source: [facility] 12:00 AM [facility] REPOSITORY Patient Outreach (FAMPWS) FLAVIA CASE ([id number]) 1950 F Date Time Provider Department 11/24/17 HIMANSHU AQUINO (RN) NAEEMPWS During your visit today, we recorded the following information about you: Himanshu Aquino RN 11/24/2017 3:50 PM Signed PRIMARY CARE COORDINATION FOLLOW-UP NOTE Provider Talat/DARRYL Increased amlodipine to 5 mg daily Home BP elevated and almost went to ER for chest pain. Noted her atenolol wasn't in medications so she started taking it immediately and felt better shortly after. BP was running 170's systolic, now down to 139/60 today [facility] scheduled BP ck for 11/28 Patient identified by name and date of . YES Spoke to patient Summary: States she inadvertently forgot to put her atenolol in her medications for the past week. Home BP was elevated and she almost went to ER for chest pain. Noted her atenolol wasn't in medications so she started taking it immediately and felt better shortly after. BP was running 170's systolic, now down to 139/60 today Discussed scheduling BP check, scheduled for 11/28 Verbalizes compliance with increasing amlodipine to 5 mg daily [employer] plan for next outreach: Will follow up one month Signature Himanshu Aquino RN November 24, 2017 Keri Gamez MD 11/24/2017 3:57 PM Signed Reviewed. Allergies As of Date: 11/24/2017 Noted Allergy Reaction ADVAIR DISKUS (FLUTICASONE-SALMET*05/16/2011 14 - Other: See Comments Comments: CHEST PAIN ASA (SALICYLATES) 05/10/2005 16 - Unknown Comments: patient taking coumadin - on low dose ASA for valve dysfunction CEPHALEXIN 02/21/2008 Comments: Stomach pains-pt. ended up in hospital EKG PADS [Other] 05/10/2005 Comments: adhesive LISINOPRIL 07/03/2014 3 - Cough NEXIUM (ESOMEPRAZOLE MAGNESIUM) 01/26/2016 14 - Other: See Comments Comments: Ineffective OMEPRAZOLE 01/26/2016 14 - Other: See Comments Comments: Ineffective TUDORZA PRESSAIR (ACLIDINIUM BROM*01/26/2016 8 - GI Upset VENTOLIN (ALBUTEROL SULFATE) 10/24/2017 14 - Other: See Comments Comments: Severe shaking, palpitations VENTOLIN (ALBUTEROL) 01/26/2016 14 - Other: See Comments Comments: Ventolin MDI does not work, Pro Air works best Date Reviewed: 10/24/2017 Reviewed by: Pepito Li Ma - Fully Assessed Reason for Visit: [facility] [1356] Prescriptions as of 11/24/2017 Sig: METFORMIN ER 500 MG TABLET,EX* take 2 tablets by mouth twice* OXYBUTYNIN CHLORIDE ER 10 MG * take 1 tablet by mouth once d* AMLODIPINE 5 MG TABLET Take 1 tablet by mouth once d* MUPIROCIN 2 % TOPICAL OINTMENT Apply 1 application to affect* ALBUTEROL SULFATE HFA 90 MCG/* Inhale 2 Puffs as instructed * POLYETHYLENE GLYCOL 3350 17 G* Take 17 g by mouth once daily* TIZANIDINE 4 MG TABLET take 1 tablet by mouth at bed* FERROUS SULFATE 325 MG (65 MG* take 1 tablet by mouth twice * ASPIRIN 81 MG TABLET,DELAYED * take 1 tablet by mouth once d* WARFARIN 1 MG TABLET Take 1 tablet by mouth once d* ATENOLOL 100 MG TABLET take 1 tablet by mouth once d* WARFARIN 6 MG TABLET TAKE 7 MG ON Monday* SERTRALINE 100 MG TABLET take 1 tablet by mouth once d* ISOSORBIDE MONONITRATE ER 30 * Take 3 tablets by mouth once * FREESTYLE LITE STRIPS TEST twice a day FREESTYLE LANCETS 28 GAUGE TEST twice a day ATORVASTATIN 20 MG TABLET take 1 tablet by mouth once d* LORATADINE 10 MG TABLET Take 1 tablet by mouth once d* LANSOPRAZOLE 30 MG CAPSULE,DE* Take 1 capsule by mouth twice* GLIPIZIDE ER 10 MG TABLET, EX* Take 1 tablet by mouth once d* LOSARTAN 100 MG TABLET take 1 tablet by mouth once d* DICLOFENAC 1 % TOPICAL GEL Apply 2 g to affected area tw* LEG BRACE 1 Each continuous. DX: S89.92* FUROSEMIDE 20 MG TABLET take 1 tablet by mouth once d* LEG BRACE 1 Each continuous. WARFARIN 6 MG TABLET Take 7 mg Daily NITROGLYCERIN 0.4 MG SUBLINGU* Dissolve 1 tablet under the t* NYSTATIN 100,000 UNIT/GRAM TO* Apply 1 application to affect* MECLIZINE 12.5 MG TABLET Take 1 tablet by mouth three * TRAZODONE 50 MG TABLET Take 1 tablet by mouth daily * ALBUTEROL SULFATE CONCENTRATE* Inhale 0.5 mL as instructed o* COMPOUNDED PRESCRIPTION NEBULIZER SUPPLIES, MEDICATIO* COMPOUNDED PRESCRIPTION HOME BP CUFF, DX: HTN LABILE * Problem List As Of Date 11/24/2017 Noted Resolved AORTOCORONARY BYPASS STATUS [Z95.1] More... OVERWEIGHT [E66.9] 05/08/2015 ASHD (arteriosclerotic heart disease) [I25.10] INVALID FOR* More... DIABETES MELLITUS TYPE II-UNCOMPL [E11.9] INVALID FOR*02/12/2014 More... HYPERLIPIDEMIA NEC/NOS [E78.5] INVALID FOR*07/24/2015 More... Hematuria [599.7] INVALID FOR*07/24/2015 More... History of mechanical aortic valve replacement *INVALID FOR* More... Abdominal pain, unspecified site [R10.9] INVALID FOR*05/08/2015 Acute gastritis without mention of hemorrhage [*INVALID FOR*01/26/2016 Esophageal reflux [K21.9] INVALID FOR* More... Headache(784.0) [R51] INVALID FOR*01/26/2016 Bronchitis Recurrent [J40] INVALID FOR*03/21/2017 Hallux valgus (acquired) [M20.10] INVALID FOR*07/24/2015 Pain in limb [M79.609] INVALID FOR*01/26/2016 Goiter [E04.9] INVALID FOR* S/P AVR [Z95.2] INVALID FOR*01/26/2016 Multinodular thyroid [E04.2] INVALID FOR* Emphysema of lung (HCC) [J43.9] More... Hyperlipemia [E78.5] INVALID FOR* DM type 2 (diabetes mellitus, type 2) (HCC) [E1*INVALID FOR*05/08/2015 Hematuria [R31.9] INVALID FOR*10/23/2015 Smoking [F17.200] INVALID FOR*10/23/2015 Chronic anticoagulation [Z79.01] INVALID FOR* OAB (overactive bladder) [N32.81] INVALID FOR* More... Frequency of urination [R35.0] INVALID FOR*01/26/2016 Hypertension goal BP (blood pressure) < 140/90 *INVALID FOR* More... Diabetes mellitus type 2, uncontrolled, without*INVALID FOR*03/21/2017 More... Nicole rash of groin [B37.89] INVALID FOR* More... Stress at home [F43.9] INVALID FOR* Insomnia [G47.00] INVALID FOR* Financial difficulties [Z59.8] INVALID FOR* Obesity, Class III, BMI >= 40 (morbid obesity) *INVALID FOR* Hemoptysis [R04.2] INVALID FOR* Priority: A More... 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 Eczema [L30.9] Diabetes mellitus (HCC) [E11.9] COPD (chronic obstructive pulmonary disease) (H* Disposition: Return in about 5 weeks (around 12/27/2017). Follow-up and Disposition History Recorded Encounter Status:Closed by HIMANSHU AQUINO on 11/27/17 PROGRESS Observed: 11/07/2017 Status: COMPLETED Source: [place] 1:11 PM [facility] REPOSITORY HNO ID: [id number] Author: Jane Dejesus LPN Service: (none) Author Type: (none) Type: Progress Notes Filed: 11/07/2017 1:27 PM Note Text: Manual Readin/62 Pulse: 74 BP Bishnu average: 141/54 P: 71 Repeat BP Check: 142/58 P71 #1 145/50 P72 #2 140/51 P69 #4 140/58 P72 #5 139/58 P72 #6 Reason for blood pressure check - Last BP elevated Patient is: Taking medication as prescribed Yes Took medication today Yes If no, date medication last taken N/A Experiencing side effects No BP was elevated at last appt 10/24/17. No BP medication changes were made at that time. Taking all medications as prescribed; does report that she did not take her Lasix today d/t travel and needing the bathroom. Denies any chest pain, unusual shortness of breath, dizziness, or headaches. Occasional caffeine use. Past personal history of tobacco use; no current exposure. Alert and oriented. Pt has been identified by name and birthdate: Yes Allergies reviewed: Yes Latex allergy: no. Medication - prescribed and OTC reviewed and updated: Yes Do you need any prescription refills prior to your next visit: No Health Maintenance: Reviewed and not up to date and provider notified Patient advised that she would be contacted after review by PCP. Jane Dejesus LPN CNNURSE Observed: 11/07/2017 Status: COMPLETED Source: [place] 1:00 PM [facility] REPOSITORY Nurse Visit (FAMPWS) FLAVIA CASE ([id number]) 1950 F Date Time Provider Department 11/07/17 1:00 PM [place] NURSE FAMPWS During your visit today, we recorded the following information about you: Pulse Blood pressure 71/minute 141/54 Jane Dejesus LPN 11/07/2017 1:27 PM Signed Manual Readin/62 Pulse: 74 BP Bishnu average: 141/54 P: 71 Repeat BP Check: 142/58 P71 #1 145/50 P72 #2 140/51 P69 #4 140/58 P72 #5 139/58 P72 #6 Reason for blood pressure check - Last BP elevated Patient is: Taking medication as prescribed Yes Took medication today Yes If no, date medication last taken N/A Experiencing side effects No BP was elevated at last appt 10/24/17. No BP medication changes were made at that time. Taking all medications as prescribed; does report that she did not take her Lasix today d/t travel and needing the bathroom. Denies any chest pain, unusual shortness of breath, dizziness, or headaches. Occasional caffeine use. Past personal history of tobacco use; no current exposure. Alert and oriented. Pt has been identified by name and birthdate: Yes Allergies reviewed: Yes Latex allergy: no. Medication - prescribed and OTC reviewed and updated: Yes Do you need any prescription refills prior to your next visit: No Health Maintenance: Reviewed and not up to date and provider notified Patient advised that she would be contacted after review by PCP. Jane Dejesus LPN Referring Provider: KERI AGMEZ) [[id number]] Allergies As of Date: 11/07/2017 Noted Allergy Reaction ADVAIR DISKUS (FLUTICASONE-SALMET*05/16/2011 14 - Other: See Comments Comments: CHEST PAIN ASA (SALICYLATES) 05/10/2005 16 - Unknown Comments: patient taking coumadin - on low dose ASA for valve dysfunction CEPHALEXIN 02/21/2008 Comments: Stomach pains-pt. ended up in hospital EKG PADS [Other] 05/10/2005 Comments: adhesive LISINOPRIL 07/03/2014 3 - Cough NEXIUM (ESOMEPRAZOLE MAGNESIUM) 01/26/2016 14 - Other: See Comments Comments: Ineffective OMEPRAZOLE 01/26/2016 14 - Other: See Comments Comments: Ineffective TUDORZA PRESSAIR (ACLIDINIUM BROM*01/26/2016 8 - GI Upset VENTOLIN (ALBUTEROL SULFATE) 10/24/2017 14 - Other: See Comments Comments: Severe shaking, palpitations VENTOLIN (ALBUTEROL) 01/26/2016 14 - Other: See Comments Comments: Jany LEGER does not work, Pro Air works best Date Reviewed: 10/24/2017 Reviewed by: Pepito Li Ma - Fully Assessed Reason for Visit: Blood Pressure Check [195] Primary Visit Diagnosis:Essential hypertension, malignant [I10] Prescriptions as of 11/07/2017 Sig: MUPIROCIN 2 % TOPICAL OINTMENT Apply 1 application to affect* ALBUTEROL SULFATE HFA 90 MCG/* Inhale 2 Puffs as instructed * POLYETHYLENE GLYCOL 3350 17 G* Take 17 g by mouth once daily* TIZANIDINE 4 MG TABLET take 1 tablet by mouth at bed* FERROUS SULFATE 325 MG (65 MG* take 1 tablet by mouth twice * ASPIRIN 81 MG TABLET,DELAYED * take 1 tablet by mouth once d* WARFARIN 1 MG TABLET Take 1 tablet by mouth once d* ATENOLOL 100 MG TABLET take 1 tablet by mouth once d* WARFARIN 6 MG TABLET TAKE 7 MG ON Monday* SERTRALINE 100 MG TABLET take 1 tablet by mouth once d* ISOSORBIDE MONONITRATE ER 30 * Take 3 tablets by mouth once * FREESTYLE LITE STRIPS TEST twice a day FREESTYLE LANCETS 28 GAUGE TEST twice a day OXYBUTYNIN CHLORIDE ER 10 MG * take 1 tablet by mouth once d* ATORVASTATIN 20 MG TABLET take 1 tablet by mouth once d* LORATADINE 10 MG TABLET Take 1 tablet by mouth once d* METFORMIN ER 500 MG TABLET,EX* Take 2 tablets by mouth twice* LANSOPRAZOLE 30 MG CAPSULE,DE* Take 1 capsule by mouth twice* GLIPIZIDE ER 10 MG TABLET, EX* Take 1 tablet by mouth once d* LOSARTAN 100 MG TABLET take 1 tablet by mouth once d* DICLOFENAC 1 % TOPICAL GEL Apply 2 g to affected area tw* LEG BRACE 1 Each continuous. DX: S89.92* FUROSEMIDE 20 MG TABLET take 1 tablet by mouth once d* LEG BRACE 1 Each continuous. WARFARIN 6 MG TABLET Take 7 mg Daily NITROGLYCERIN 0.4 MG SUBLINGU* Dissolve 1 tablet under the t* NYSTATIN 100,000 UNIT/GRAM TO* Apply 1 application to affect* MECLIZINE 12.5 MG TABLET Take 1 tablet by mouth three * TRAZODONE 50 MG TABLET Take 1 tablet by mouth daily * ALBUTEROL SULFATE CONCENTRATE* Inhale 0.5 mL as instructed o* COMPOUNDED PRESCRIPTION NEBULIZER SUPPLIES, MEDICATIO* COMPOUNDED PRESCRIPTION HOME BP CUFF, DX: HTN LABILE * Problem List As Of Date 11/07/2017 Noted Resolved AORTOCORONARY BYPASS STATUS [Z95.1] More... OVERWEIGHT [E66.9] 05/08/2015 ASHD (arteriosclerotic heart disease) [I25.10] INVALID FOR* More... DIABETES MELLITUS TYPE II-UNCOMPL [E11.9] INVALID FOR*02/12/2014 More... HYPERLIPIDEMIA NEC/NOS [E78.5] INVALID FOR*07/24/2015 More... Hematuria [599.7] INVALID FOR*07/24/2015 More... History of mechanical aortic valve replacement *INVALID FOR* More... Abdominal pain, unspecified site [R10.9] INVALID FOR*05/08/2015 Acute gastritis without mention of hemorrhage [*INVALID FOR*01/26/2016 Esophageal reflux [K21.9] INVALID FOR* More... Headache(784.0) [R51] INVALID FOR*01/26/2016 Bronchitis Recurrent [J40] INVALID FOR*03/21/2017 Hallux valgus (acquired) [M20.10] INVALID FOR*07/24/2015 Pain in limb [M79.609] INVALID FOR*01/26/2016 Goiter [E04.9] INVALID FOR* S/P AVR [Z95.2] INVALID FOR*01/26/2016 Multinodular thyroid [E04.2] INVALID FOR* Emphysema of lung (HCC) [J43.9] More... Hyperlipemia [E78.5] INVALID FOR* DM type 2 (diabetes mellitus, type 2) (HCC) [E1*INVALID FOR*05/08/2015 Hematuria [R31.9] INVALID FOR*10/23/2015 Smoking [F17.200] INVALID FOR*10/23/2015 Chronic anticoagulation [Z79.01] INVALID FOR* OAB (overactive bladder) [N32.81] INVALID FOR* More... Frequency of urination [R35.0] INVALID FOR*01/26/2016 Hypertension goal BP (blood pressure) < 140/90 *INVALID FOR* More... Diabetes mellitus type 2, uncontrolled, without*INVALID FOR*03/21/2017 More... Nicole rash of groin [B37.89] INVALID FOR* More... Stress at home [F43.9] INVALID FOR* Insomnia [G47.00] INVALID FOR* Financial difficulties [Z59.8] INVALID FOR* Obesity, Class III, BMI >= 40 (morbid obesity) *INVALID FOR* Hemoptysis [R04.2] INVALID FOR* Priority: A More... 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 Eczema [L30.9] Diabetes mellitus (HCC) [E11.9] COPD (chronic obstructive pulmonary disease) (H* Encounter Status:Closed by JANE DEJESUS LPN on 11/07/17 PROGRESS Observed: 10/24/2017 Status: COMPLETED Source: [place] 4:36 PM [facility] REPOSITORY HNO ID: [id number] Author: Keri Mo) Vera Service: (none) Author Type: Physician Type: Progress Notes Filed: 10/24/2017 4:36 PM Note Text: INR therapeutic. Continue current coumadin dosage and follow up in 4 weeks. PROGRESS Observed: 10/24/2017 Status: COMPLETED Source: [place] 4:16 PM [facility] REPOSIT[facility] HNO ID: [id number] Author: Brenda Darby RN Service: (none) Author Type: (none) Type: Progress Notes Filed: 10/24/2017 4:18 PM Note Text: patient had inr completed at [facility] patients inr is 3.2 (patients inr range is 3.0-4.0) patient is currently taking 6mg daily patients last dose change was on 10/03/17 due to a high level of 5.5 (dose at that time was 7mg daily) patient has had no changes in medication and no missed doses and no change in diet Advised patient to continue on the same dose(s) and that they would only be contacted regarding dosage and follow up instructions after review with provider, if a change is needed. Written instructions given and patient verbalized understanding. Presently scheduled in 1 month follow up (11/28/17) for follow up INR. CNOV Observed: 10/24/2017 Status: COMPLETED Source: [place] 1:00 PM [facility] REPOSIT[facility] Office Visit (FAMPWS) FLAVIA CASE ([id number]) 1950 F Date Time Provider Department 10/24/17 1:00 PM KERI GAMEZ) JERAD During your visit today, we recorded the following information about you: Pulse Respiration Blood pressure Weight 64/minute 20/minute 146/62 105.2 kg Keri Gamez MD 10/24/2017 7:50 PM Signed Chief Complaint Patient presents with: F/U 3 Month: see Nursing Note HPI Flavia Case is a 67 year old female who presents here today for 3 month DM follow up. DIABETES MELLITUS: Ms. Case was last seen 3 months ago. At that OV, we increased her metformin to max dosage. Since our last visit she denies excessive thirst or increased frequency of urination, numbness, tingling or pain in extremities, new or unusual visual symptoms and low sugar/hypoglycemic reactions. Follows a diabetic diet some of the time. She is compliant with medication(s) and is tolerating med(s) without any side effects. She reports checking her glucose on a once a day schedule with sugars in the <200 range. Patient's last HgA1C was Hemoglobin A1C (%) Date Value 10/03/2017 7.7 06/16/2017 8.5 ) Last Ophthalmology exam was within the past 12 months Last Podiatry exam was within the past 12 months Was seen by Dr. Lizarraga about [address] scan showed improvement of squamous cell lung cancer after dose of radiation. Recommending 6 month follow up. COPD has been worse with the hot weather. When she is in air conditioning she is able to breath normally, but when she goes out in the heat becomes more SOB with wheezing. 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 Requesting Proair instead of ventolin due to side effect of ventolin. Gets severe shaking and palpitations. Requesting mupirocin refill for pimples in nares occasionally. Past medical history, appointments, medications, allergies reviewed. Previous Medical History PAST MEDICAL HISTORY Diagnosis Date - Acute gastritis without mention of hemorrhage - Acute peptic ulcer - Anxiety - ASHD (arteriosclerotic heart disease) Dr. Corado - Benign neoplasm of colon - Carpal tunnel syndrome - COPD (chronic obstructive pulmonary disease) (HCC) - Corns and callosities 02/11/2010 - Dermatophytosis of nail 02/11/2010 - Diabetes mellitus (HCC) - Diaphragmatic hernia without mention of obstruction or gangrene - Eczema - External hemorrhoids without mention of complication - Hirsutism 10/21/2010 - Hyperlipidemia - Hypertension - Internal hemorrhoids without mention of complication - Lung cancer (HCC) 09/[address] Lizarraga. Stage I squamous cell s/p radiation - Multinodular thyroid benign - Obesity, unspecified - Overactive bladder Dr. Recio - Postsurgical aortocoronary bypass status triple bypass, aortic valve replacement - Pulmonary hypertension (HCC) - S/P AVR - Seasonal allergies - Squamous cell carcinoma neck, back, leg, left lung - Toe deformity 02/11/2010 Previous Surgical History PAST SURGICAL HISTORY Procedure Laterality Date - CABG, ARTERY-VEIN, THREE 1996 CABG, three grafts, replace heart valve - DELIVERY ONLY x3 - COLONOSCOP W/ OR W/O [facility] SPEC 01/02/2001, 09/21/2005 Colonoscopy - COLONOSCOP W/ OR W/O [facility] SPEC 04/26/06 - EGD W/O OR W/BRUSH/WASH 04/26/06 - EGD W/O OR W/BRUSH/WASH 01/12/1984 EGD with biopsy of antral ulcer - LAPAROSCOPIC CHOLEYCYSTECTOMY 09-06- - PAST SURGICAL HISTORY OF skin cancer from knee / benign spot from back - PAST SURGICAL HISTORY OF cataract removal bilateral - TOTAL ABDOM HYSTERECTOMY 1978 for endometriosis, ovaries spared Family History FAMILY HISTORY Problem Relation Age of Onset - Heart Father - Heart Mother - Thyroid Mother Goiter - Diabetes Maternal Grandfather - stomach cancer [OTHER] Sister Adenocarcinoma - Heart Daughter - Colon Cancer Sister 52 Patient Allergies ALLERGIES Allergen Reactions - Advair Diskus [Flut* Other: See Comments CHEST PAIN - Asa [Salicylates] Unknown patient taking coumadin - on low dose ASA for valve dysfunction - Cephalexin Stomach pains-pt. ended up in hospital - Ekg Pads [Other] adhesive - Lisinopril Cough - Nexium [Esomeprazol* Other: See Comments Ineffective - Omeprazole Other: See Comments Ineffective - Tudorza Pressair [A* GI Upset - Ventolin [Albuterol] Other: See Comments Ventolin MDI does not work, Pro Air works best Current Medications Current Outpatient Prescriptions on File Prior to Visit: polyethylene glycol 3350 (MIRALAX, GLYCOLAX) 17 gram/dose powder Take 17 g by mouth once daily. dissolve in water. tiZANidine (ZANAFLEX) 4 mg tablet take 1 tablet by mouth at bedtime if needed for muscle spasm ferrous sulfate 325 mg (65 mg iron) tablet take 1 tablet by mouth twice a day with meals aspirin, enteric coated (ASPIRIN, ENTERIC COATED) 81 mg EC tablet take 1 tablet by mouth once daily warfarin (COUMADIN) 1 mg tablet Take 1 tablet by mouth once daily. atenolol (TENORMIN) 100 mg tablet take 1 tablet by mouth once daily warfarin (COUMADIN) 6 mg tablet TAKE 7 MG ON Monday AND MONDAY, TAKE 1 TABLET (6 MG) ON ALL OTHER DAYS, TAKE 6 MG AND 1 MG TAB TABLET TO MAKE 7 MG sertraline (ZOLOFT) 100 mg tablet take 1 tablet by mouth once daily isosorbide mononitrate ER (IMDUR) 30 mg 24 hr tablet Take 3 tablets by mouth once daily. FREESTYLE LITE STRIPS test strip TEST twice a day FREESTYLE LANCETS 28 gauge misc TEST twice a day oxybutynin ER (DITROPAN XL) 10 mg 24 hr tablet take 1 tablet by mouth once daily atorvastatin (LIPITOR) 20 mg tablet take 1 tablet by mouth once daily loratadine (CLARITIN) 10 mg tablet Take 1 tablet by mouth once daily. metFORMIN ER (GLUCOPHAGE XR) 500 mg 24 hr tablet Take 2 tablets by mouth twice daily. lansoprazole (PREVACID) 30 mg capsule Take 1 capsule by mouth twice daily before meals (0600/1600). glipiZIDE XL (GLUCOTROL XL) 10 mg 24 hr tablet Take 1 tablet by mouth once daily. losartan (COZAAR) 100 mg tablet take 1 tablet by mouth once daily diclofenac sodium (VOLTAREN) 1 % topical gel Apply 2 g to affected area twice daily as needed. Both heels Leg Brace (KNEE SUPPORT BRACE) misc 1 Each continuous. DX: S89.92XA furosemide (LASIX) 20 mg tablet take 1 tablet by mouth once daily albuterol HFA (PROAIR HFA) 90 mcg/actuation inhaler Inhale 2 Puffs as instructed every 4 hours as needed. Leg Brace (KNEE SUPPORT BRACE) misc 1 Each continuous. warfarin (COUMADIN) 6 mg tablet Take 7 mg Daily nitroglycerin sublingual (NITROSTAT) 0.4 mg SL tablet Dissolve 1 tablet under the tongue as needed. DISSOLVE ON TONGUE FOR CHEST PAIN. IF NO PAIN RELIEF, CALL 911 nystatin (MYCOSTATIN) cream Apply 1 application to affected area twice daily. Groin as needed meclizine (ANTIVERT) 12.5 mg tab Take 1 tablet by mouth three times daily as needed (dizziness). traZODone (DESYREL) 50 mg tablet Take 1 tablet by mouth daily at bedtime. COMPOUNDED PRESCRIPTION NEBULIZER SUPPLIES, MEDICATION CUP, TUBING FOR USE WITH NEBULIZER MACHINE DX J40.0 >Blood Pressure Cuff Home HOME BP CUFF, DX: HTN LABILE Dx: i10 No current facility-administered medications on file prior to visit. 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 Ex-spouse of 38 years also a smoker. Alcohol use: No Drug use: No Sexual activity: No Comment: Social History Narrative Born [place], moved [facility] age 9. 4 years in current home[place]. Dry basement. Electric baseboard heat. No central A/C, uses window units. No pets in home currently. Bird and dog not replaced at deaths 13 years ago. SSI and medical card. Watches 2 grandkids, 01/07 in 2013. Review of Symptoms REVIEW OF SYSTEMS GENERAL: No weight loss, malaise or fevers RESPIRATORY: See HPI CARDIOVASCULAR: Negative for chest pain, leg swelling, hypertension, CHF or palpitations GI: No nausea, vomiting, or diarrhea SKIN: Negative for lesions, rash, and itching EXAM: BP 146/62 Pulse 64 Resp 20 Wt 105.2 kg (232 lb) SpO2 96% BMI 41.10 kg/m? General Appearance: Well appearing, alert, in no acute distress, well-hydrated, well nourished.. Skin: Skin color, texture, turgor normal, no suspicious rashes or lesions. Lungs: Lungs clear to auscultation. No wheezing, rhonchi, rales. Heart: RRR without murmur, gallop, or rubs. No ectopy. Mechanical heart valve appreciated. Abdomen: Abdomen soft. Bowel sounds normal. No masses, organomegaly, Positive findings: tenderness mild RUQ without guarding or rebound. Extremities: No deformities, edema, skin discoloration, clubbing or cyanosis. Good capillary refill. . Health Maintenance List ZOSTER VACCINE (SHINGRIX)(2 of 3) due on 12/16/2011 INFLUENZA(1) due on 12/23/2017 URINE ALBUMIN CREATININE RATIO due on 12/27/2017 FECAL OCCULT BLOOD due on 01/09/2018 DILATED RETINAL EXAM due on 03/10/2018 HBA1C due on 2018 MAMMOGRAM due on 06/16/2018 LDL due on 06/16/2018 DIABETIC FOOT EXAM due on 06/28/2018 DTAP,TDAP,TD(2 - Td) due on 03/08/2021 BONE DENSITY Completed ADULT PREVNAR-13 Completed HEPATITIS C SCREENING Completed PNEUMOVAX AGE 65 AND OVER WITH 5YR LOOKBACK Completed Data reviewed Component Latest Ref Rng AND Units 01/09/2017 03/15/2017 06/16/2017 10/03/2017 WBC 3.70 - 11.00 k/uL 9.37 RBC 3.90 - 5.20 m/uL 5.27 (H) Hemoglobin 11.5 - 15.5 g/dL 12.5 Hematocrit 36.0 - 46.0 % 41.2 MCV 80.0 - 100.0 fL 78.2 (L) MCH 26.0 - 34.0 pG 23.7 (L) MCHC 30.5 - 36.0 g/dL 30.3 (L) RDW-CV 11.5 - 15.0 % 17.3 (H) Platelet Count 150 - 400 k/uL 224 MPV 9.0 - 12.7 fL 11.6 Neut% % 77.2 Abs Neut (ANC) 1.45 - 7.50 k/uL 7.23 Lymph% % 12.9 Abs Lymph 1.00 - 4.00 k/uL 1.21 [place]% % 6.8 Abs [place] <0.87 k/uL 0.64 Eosin% % 2.0 Abs Eosin <0.46 k/uL 0.19 Baso% % 1.1 Abs Baso <0.11 k/uL 0.10 Nucleated Reds 0 /100 WBC 0.0 Absolute nRBC <0.01 k/uL <0.01 Diff Type Auto Diff Protein, Total 6.3 - 8.0 g/dL 7.1 Albumin 3.9 - 4.9 g/dL 3.9 Calcium 8.5 - 10.2 mg/dL 9.3 Bilirubin, Total 0.2 - 1.3 mg/dL 0.2 Alkaline Phosphatase 32 - 117 U/L 101 AST 13 - 35 U/L 22 Glucose 74 - 99 mg/dL 212 (H) BUN 7 - 21 mg/dL 14 Creatinine 0.58 - 0.96 mg/dL 0.64 Sodium 136 - 144 mmol/L 135 (L) Potassium 3.7 - 5.1 mmol/L 4.8 Chloride 97 - 105 mmol/L 101 CO2 22 - 30 mmol/L 22 Anion Gap 9 - 18 mmol/L 12 ALT 7 - 38 U/L 31 eGFR- >60 eGFR-All Other Races . >60 Hemoglobin A1C 4.3 - 5.6 % 7.2 (H) 8.5 (H) 7.7 (H) Estimated Average Glucose mg/dL 160 197 174 Occult Blood, Stool Negative Negative ASSESSMENT/PLAN: 1. Type 2 diabetes mellitus without complication, without long-term current use of insulin (HCC) - ICD9: 250.00, ICD10: E11.9 (primary diagnosis) Controlled. - Continue current medications - Blood glucose monitoring on a once a day schedule - Encouraged regular aerobic exercise and weight loss - Daily Asprin therapy recommended - Follow up in 3 months, sooner should any other issues arise. 2. Abdominal pain, RUQ - ICD9: 789.01, ICD10: R10.11 - Mild TTP on exam today with intermittent pain at home. Patient refusing further workup today. Discussed possible liver etiology vs gastritis vs muscle soreness. To call if symptoms worsen or change. 3. Other hyperlipidemia - ICD9: 272.4, ICD10: E78.4 - good control - Continue current medication. - Encouraged following a low fat, low cholesterol diet. - Discussed the benefits of regular aerobic exercise and weight loss. 4. ASHD (arteriosclerotic heart disease) - ICD9: 414.00, ICD10: I25.10 Asymptomatic. Continue current regimen. Follow up with cardiology as scheduled. 5. History of mechanical aortic valve replacement - ICD9: V43.3, ICD10: Z95.2 Continue anticoagulation and follow up with cardiology. 6. Chronic anticoagulation - ICD9: V58.61, ICD10: Z79.01 See above. 7. Hypertension goal BP (blood pressure) < 140/90 - ICD9: 401.9, ICD10: I10 - suboptimal control - Continue current medication(s) - Encouraged dietary sodium restriction/DASH diet - Recommended regular aerobic exercise. - Follow up in 1 month for BP recheck. - Reviewed risks of HTN and principles of treatment - Goal of BP <140/90 8. Obesity, Class III, BMI >= 40 (morbid obesity) E66.01 - ICD9: 278.01, ICD10: E66.01 Discussed improved diet and exercise. Recheck at next OV. 9. 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 Recommend follow up in 6 months. - HGB A1C - COMP METABOLIC PANEL - CBC 10. Chronic obstructive pulmonary disease, unspecified COPD type (HCC) - ICD9: 496, ICD10: J44.9 Discussed continued inhaler regimen and staying inside during high temperature portion of the day. Will attempt to get patient Proair instead of ventolin due to side effects. Will start PA if not approved. - ALBUTEROL SULFATE HFA 90 MCG/ACTUATION AEROSOL INHALER MD Pepito Curiel Ma 10/24/2017 1:03 PM Signed Patient states she was seen through ENT with previous PCP - was given Bactroban ointment for sores in nose - would like to know if ok for a new rx. Referring Provider: KERI GAMEZ) [[id number]] Allergies As of Date: 10/24/2017 Noted Allergy Reaction ADVAIR DISKUS (FLUTICASONE-SALMET*05/16/2011 14 - Other: See Comments Comments: CHEST PAIN ASA (SALICYLATES) 05/10/2005 16 - Unknown Comments: patient taking coumadin - on low dose ASA for valve dysfunction CEPHALEXIN 02/21/2008 Comments: Stomach pains-pt. ended up in hospital EKG PADS [Other] 05/10/2005 Comments: adhesive LISINOPRIL 07/03/2014 3 - Cough NEXIUM (ESOMEPRAZOLE MAGNESIUM) 01/26/2016 14 - Other: See Comments Comments: Ineffective OMEPRAZOLE 01/26/2016 14 - Other: See Comments Comments: Ineffective TUDORZA PRESSAIR (ACLIDINIUM BROM*01/26/2016 8 - GI Upset VENTOLIN (ALBUTEROL SULFATE) 10/24/2017 14 - Other: See Comments Comments: Severe shaking, palpitations VENTOLIN (ALBUTEROL) 01/26/2016 14 - Other: See Comments Comments: Ventolin MDI does not work, Pro Air works best Date Reviewed: 10/24/2017 Reviewed by: Peptio Li Ma - Fully Assessed Reason for Visit: F/U 3 Month [443] Cmt: see Nursing Note Reason For Visit History Recorded Primary Visit Diagnosis:Type 2 diabetes mellitus without complication, without long-term current use of insulin (HCC) [E11.9] Other Visit Diagnoses:Abdominal pain, RUQ [R10.11] Other hyperlipidemia [E78.4] ASHD (arteriosclerotic heart disease) [I25.10] History of mechanical aortic valve replacement [Z95.2] Chronic anticoagulation [Z79.01] Hypertension goal BP (blood pressure) < 140/90 [I10] Obesity, Class III, BMI >= 40 (morbid obesity) E66.01 [E66.01] 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 Location: Inside noseDisp: 1 TubeRfl: 2 albuterol HFA (PROAIR HFA) 90 mcg/actuation inhalerInhale 2 Puffs as instructed every 4 hours as needed.Disp: 1 EachRfl: 5 HGB A1C [TGNSL5G] Order #: [id number] FUTURE COMP METABOLIC PANEL [SQCMP] Order #: [id number] FUTURE CBC [SQCBC] Order #: [id number] FUTURE INR (POC) [0433393] Order #: [id number]. #:[id number] Prescriptions as of 10/24/2017 Sig: MUPIROCIN 2 % TOPICAL OINTMENT Apply 1 application to affect* ALBUTEROL SULFATE HFA 90 MCG/* Inhale 2 Puffs as instructed * POLYETHYLENE GLYCOL 3350 17 G* Take 17 g by mouth once daily* TIZANIDINE 4 MG TABLET take 1 tablet by mouth at bed* FERROUS SULFATE 325 MG (65 MG* take 1 tablet by mouth twice * ASPIRIN 81 MG TABLET,DELAYED * take 1 tablet by mouth once d* WARFARIN 1 MG TABLET Take 1 tablet by mouth once d* ATENOLOL 100 MG TABLET take 1 tablet by mouth once d* WARFARIN 6 MG TABLET TAKE 7 MG ON Monday* SERTRALINE 100 MG TABLET take 1 tablet by mouth once d* ISOSORBIDE MONONITRATE ER 30 * Take 3 tablets by mouth once * FREESTYLE LITE STRIPS TEST twice a day FREESTYLE LANCETS 28 GAUGE TEST twice a day OXYBUTYNIN CHLORIDE ER 10 MG * take 1 tablet by mouth once d* ATORVASTATIN 20 MG TABLET take 1 tablet by mouth once d* LORATADINE 10 MG TABLET Take 1 tablet by mouth once d* METFORMIN ER 500 MG TABLET,EX* Take 2 tablets by mouth twice* LANSOPRAZOLE 30 MG CAPSULE,DE* Take 1 capsule by mouth twice* GLIPIZIDE ER 10 MG TABLET, EX* Take 1 tablet by mouth once d* LOSARTAN 100 MG TABLET take 1 tablet by mouth once d* DICLOFENAC 1 % TOPICAL GEL Apply 2 g to affected area tw* LEG BRACE 1 Each continuous. DX: S89.92* FUROSEMIDE 20 MG TABLET take 1 tablet by mouth once d* LEG BRACE 1 Each continuous. WARFARIN 6 MG TABLET Take 7 mg Daily NITROGLYCERIN 0.4 MG SUBLINGU* Dissolve 1 tablet under the t* NYSTATIN 100,000 UNIT/GRAM TO* Apply 1 application to affect* MECLIZINE 12.5 MG TABLET Take 1 tablet by mouth three * TRAZODONE 50 MG TABLET Take 1 tablet by mouth daily * COMPOUNDED PRESCRIPTION NEBULIZER SUPPLIES, MEDICATIO* COMPOUNDED PRESCRIPTION HOME BP CUFF, DX: HTN LABILE * Problem List As Of Date 10/24/2017 Noted Resolved AORTOCORONARY BYPASS STATUS [Z95.1] More... OVERWEIGHT [E66.9] 05/08/2015 ASHD (arteriosclerotic heart disease) [I25.10] INVALID FOR* More... DIABETES MELLITUS TYPE II-UNCOMPL [E11.9] INVALID FOR*02/12/2014 More... HYPERLIPIDEMIA NEC/NOS [E78.5] INVALID FOR*07/24/2015 More... Hematuria [599.7] INVALID FOR*07/24/2015 More... History of mechanical aortic valve replacement *INVALID FOR* More... Abdominal pain, unspecified site [R10.9] INVALID FOR*05/08/2015 Acute gastritis without mention of hemorrhage [*INVALID FOR*01/26/2016 Esophageal reflux [K21.9] INVALID FOR* More... Headache(784.0) [R51] INVALID FOR*01/26/2016 Bronchitis Recurrent [J40] INVALID FOR*03/21/2017 Hallux valgus (acquired) [M20.10] INVALID FOR*07/24/2015 Pain in limb [M79.609] INVALID FOR*01/26/2016 Goiter [E04.9] INVALID FOR* S/P AVR [Z95.2] INVALID FOR*01/26/2016 Multinodular thyroid [E04.2] INVALID FOR* Emphysema of lung (HCC) [J43.9] More... Hyperlipemia [E78.5] INVALID FOR* DM type 2 (diabetes mellitus, type 2) (HCC) [E1*INVALID FOR*05/08/2015 Hematuria [R31.9] INVALID FOR*10/23/2015 Smoking [F17.200] INVALID FOR*10/23/2015 Chronic anticoagulation [Z79.01] INVALID FOR* OAB (overactive bladder) [N32.81] INVALID FOR* More... Frequency of urination [R35.0] INVALID FOR*01/26/2016 Hypertension goal BP (blood pressure) < 140/90 *INVALID FOR* More... Diabetes mellitus type 2, uncontrolled, without*INVALID FOR*03/21/2017 More... Nicole rash of groin [B37.89] INVALID FOR* More... Stress at home [F43.9] INVALID FOR* Insomnia [G47.00] INVALID FOR* Financial difficulties [Z59.8] INVALID FOR* Obesity, Class III, BMI >= 40 (morbid obesity) *INVALID FOR* Hemoptysis [R04.2] INVALID FOR* Priority: A More... 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 Eczema [L30.9] Diabetes mellitus (HCC) [E11.9] COPD (chronic obstructive pulmonary disease) (H* Visit Notes: >> Pepito Li Anel MonOct 24, 2017 1:01 PM Status: Signed Patient states she was seen through ENT with previous PCP - was given Bactroban ointment for sores in nose - would like to know if ok for a new rx. Prescriptions ordered this encounter Disp Refills Start End MUPIROCIN 2 % TOPICAL OINTMENT 1 * 2 10/24/2017 Route: TOPICAL Sig: Apply 1 application to affected area three times daily. Location: Inside nose ALBUTEROL SULFATE HFA 90 MCG/ACTUATI* 1 Ea* 5 10/24/2017 Route: INHALATION Sig: Inhale 2 Puffs as instructed every 4 hours as needed. Medications Discontinued During This Encounter albuterol HFA (PROAIR HFA) 90 mcg/ac* 1 Ea* 0 11/10/2016 10/24/2017 Route: INHALATION Sig: Inhale 2 Puffs as instructed every 4 hours as needed. Disc: Reason for discontinue is not on file. Encounter Status:Closed by KERI GAMEZ MD on 10/24/17 PROGRESS Observed: 10/24/2017 Status: COMPLETED Source: [facility] 12:51 PM [facility] REPOSITORY O ID: [id number] Author: Keri Mo) Vera Service: (none) Author Type: Physician Type: Progress Notes Filed: 10/24/2017 7:50 PM Note Text: Chief Complaint Patient presents with: F/U 3 Month: see Nursing Note HPI Flavia Case is a 67 year old female who presents here today for 3 month DM follow up. DIABETES MELLITUS: Ms. Case was last seen 3 months ago. At that OV, we increased her metformin to max dosage. Since our last visit she denies excessive thirst or increased frequency of urination, numbness, tingling or pain in extremities, new or unusual visual symptoms and low sugar/hypoglycemic reactions. Follows a diabetic diet some of the time. She is compliant with medication(s) and is tolerating med(s) without any side effects. She reports checking her glucose on a once a day schedule with sugars in the <200 range. Patient's last HgA1C was Hemoglobin A1C (%) Date Value 10/03/2017 7.7 06/16/2017 8.5 ) Last Ophthalmology exam was within the past 12 months Last Podiatry exam was within the past 12 months Was seen by Dr. Lizarraga about [address] scan showed improvement of squamous cell lung cancer after dose of radiation. Recommending 6 month follow up. COPD has been worse with the hot weather. When she is in air conditioning she is able to breath normally, but when she goes out in the heat becomes more SOB with wheezing. 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 Requesting Proair instead of ventolin due to side effect of ventolin. Gets severe shaking and palpitations. Requesting mupirocin refill for pimples in nares occasionally. Past medical history, appointments, medications, allergies reviewed. Previous Medical History PAST MEDICAL HISTORY Diagnosis Date - Acute gastritis without mention of hemorrhage - Acute peptic ulcer - Anxiety - ASHD (arteriosclerotic heart disease) Dr. Corado - Benign neoplasm of colon - Carpal tunnel syndrome - COPD (chronic obstructive pulmonary disease) (HCC) - Corns and callosities 02/11/2010 - Dermatophytosis of nail 02/11/2010 - Diabetes mellitus (HCC) - Diaphragmatic hernia without mention of obstruction or gangrene - Eczema - External hemorrhoids without mention of complication - Hirsutism 10/21/2010 - Hyperlipidemia - Hypertension - Internal hemorrhoids without mention of complication - Lung cancer (HCC) 09/[address] Lizarraga. Stage I squamous cell s/p radiation - Multinodular thyroid benign - Obesity, unspecified - Overactive bladder Dr. Recio - Postsurgical aortocoronary bypass status triple bypass, aortic valve replacement - Pulmonary hypertension (HCC) - S/P AVR - Seasonal allergies - Squamous cell carcinoma neck, back, leg, left lung - Toe deformity 02/11/2010 Previous Surgical History PAST SURGICAL HISTORY Procedure Laterality Date - CABG, ARTERY-VEIN, THREE 1996 CABG, three grafts, replace heart valve - DELIVERY ONLY x3 - COLONOSCOP W/ OR W/O [facility] SPEC 01/02/2001, 09/21/2005 Colonoscopy - COLONOSCOP W/ OR W/O [facility] SPEC 04/26/06 - EGD W/O OR W/BRUSH/WASH 04/26/06 - EGD W/O OR W/BRUSH/WASH 01/12/1984 EGD with biopsy of antral ulcer - LAPAROSCOPIC CHOLEYCYSTECTOMY 09-06-12 - PAST SURGICAL HISTORY OF skin cancer from knee / benign spot from back - PAST SURGICAL HISTORY OF cataract removal bilateral - TOTAL ABDOM HYSTERECTOMY 1978 for endometriosis, ovaries spared Family History FAMILY HISTORY Problem Relation Age of Onset - Heart Father - Heart Mother - Thyroid Mother Goiter - Diabetes Maternal Grandfather - stomach cancer [OTHER] Sister Adenocarcinoma - Heart Daughter - Colon Cancer Sister 52 Patient Allergies ALLERGIES Allergen Reactions - Advair Diskus [Flut* Other: See Comments CHEST PAIN - Asa [Salicylates] Unknown patient taking coumadin - on low dose ASA for valve dysfunction - Cephalexin Stomach pains-pt. ended up in hospital - Ekg Pads [Other] adhesive - Lisinopril Cough - Nexium [Esomeprazol* Other: See Comments Ineffective - Omeprazole Other: See Comments Ineffective - Tudorza Pressair [A* GI Upset - Ventolin [Albuterol] Other: See Comments Jany MDI does not work, Pro Air works best Current Medications Current Outpatient Prescriptions on File Prior to Visit: polyethylene glycol 3350 (MIRALAX, GLYCOLAX) 17 gram/dose powder Take 17 g by mouth once daily. dissolve in water. tiZANidine (ZANAFLEX) 4 mg tablet take 1 tablet by mouth at bedtime if needed for muscle spasm ferrous sulfate 325 mg (65 mg iron) tablet take 1 tablet by mouth twice a day with meals aspirin, enteric coated (ASPIRIN, ENTERIC COATED) 81 mg EC tablet take 1 tablet by mouth once daily warfarin (COUMADIN) 1 mg tablet Take 1 tablet by mouth once daily. atenolol (TENORMIN) 100 mg tablet take 1 tablet by mouth once daily warfarin (COUMADIN) 6 mg tablet TAKE 7 MG ON Monday AND MONDAY, TAKE 1 TABLET (6 MG) ON ALL OTHER DAYS, TAKE 6 MG AND 1 MG TAB TABLET TO MAKE 7 MG sertraline (ZOLOFT) 100 mg tablet take 1 tablet by mouth once daily isosorbide mononitrate ER (IMDUR) 30 mg 24 hr tablet Take 3 tablets by mouth once daily. FREESTYLE LITE STRIPS test strip TEST twice a day FREESTYLE LANCETS 28 gauge misc TEST twice a day oxybutynin ER (DITROPAN XL) 10 mg 24 hr tablet take 1 tablet by mouth once daily atorvastatin (LIPITOR) 20 mg tablet take 1 tablet by mouth once daily loratadine (CLARITIN) 10 mg tablet Take 1 tablet by mouth once daily. metFORMIN ER (GLUCOPHAGE XR) 500 mg 24 hr tablet Take 2 tablets by mouth twice daily. lansoprazole (PREVACID) 30 mg capsule Take 1 capsule by mouth twice daily before meals (0600/1600). glipiZIDE XL (GLUCOTROL XL) 10 mg 24 hr tablet Take 1 tablet by mouth once daily. losartan (COZAAR) 100 mg tablet take 1 tablet by mouth once daily diclofenac sodium (VOLTAREN) 1 % topical gel Apply 2 g to affected area twice daily as needed. Both heels Leg Brace (KNEE SUPPORT BRACE) misc 1 Each continuous. DX: S89.92XA furosemide (LASIX) 20 mg tablet take 1 tablet by mouth once daily albuterol HFA (PROAIR HFA) 90 mcg/actuation inhaler Inhale 2 Puffs as instructed every 4 hours as needed. Leg Brace (KNEE SUPPORT BRACE) misc 1 Each continuous. warfarin (COUMADIN) 6 mg tablet Take 7 mg Daily nitroglycerin sublingual (NITROSTAT) 0.4 mg SL tablet Dissolve 1 tablet under the tongue as needed. DISSOLVE ON TONGUE FOR CHEST PAIN. IF NO PAIN RELIEF, CALL 911 nystatin (MYCOSTATIN) cream Apply 1 application to affected area twice daily. Groin as needed meclizine (ANTIVERT) 12.5 mg tab Take 1 tablet by mouth three times daily as needed (dizziness). traZODone (DESYREL) 50 mg tablet Take 1 tablet by mouth daily at bedtime. COMPOUNDED PRESCRIPTION NEBULIZER SUPPLIES, MEDICATION CUP, TUBING FOR USE WITH NEBULIZER MACHINE DX J40.0 >Blood Pressure Cuff Home HOME BP CUFF, DX: HTN LABILE Dx: i10 No current facility-administered medications on file prior to visit. 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 Ex-spouse of 38 years also a smoker. Alcohol use: No Drug use: No Sexual activity: No Comment: Social History Narrative Born [place], moved [facility] 1958 age 9. 4 years in current home[place]. Dry basement. Electric baseboard heat. No central A/C, uses window units. No pets in home currently. Bird and dog not replaced at deaths 13 years ago. SSI and medical card. [employer], 01/07 in 2013. Review of Symptoms REVIEW OF SYSTEMS GENERAL: No weight loss, malaise or fevers RESPIRATORY: See HPI CARDIOVASCULAR: Negative for chest pain, leg swelling, hypertension, CHF or palpitations GI: No nausea, vomiting, or diarrhea SKIN: Negative for lesions, rash, and itching EXAM: BP 146/62 Pulse 64 Resp 20 Wt 105.2 kg (232 lb) SpO2 96% BMI 41.10 kg/m? General Appearance: Well appearing, alert, in no acute distress, well-hydrated, well nourished.. Skin: Skin color, texture, turgor normal, no suspicious rashes or lesions. Lungs: Lungs clear to auscultation. No wheezing, rhonchi, rales. Heart: RRR without murmur, gallop, or rubs. No ectopy. Mechanical heart valve appreciated. Abdomen: Abdomen soft. Bowel sounds normal. No masses, organomegaly, Positive findings: tenderness mild RUQ without guarding or rebound. Extremities: No deformities, edema, skin discoloration, clubbing or cyanosis. Good capillary refill. . Health Maintenance List ZOSTER VACCINE (SHINGRIX)(2 of 3) due on 12/16/2011 INFLUENZA(1) due on 12/23/2017 URINE ALBUMIN CREATININE RATIO due on 12/27/2017 FECAL OCCULT BLOOD due on 01/09/2018 DILATED RETINAL EXAM due on 03/10/2018 HBA1C due on 2018 MAMMOGRAM due on 06/16/2018 LDL due on 06/16/2018 DIABETIC FOOT EXAM due on 06/28/2018 DTAP,TDAP,TD(2 - Td) due on 03/08/2021 BONE DENSITY Completed ADULT PREVNAR-13 Completed HEPATITIS C SCREENING Completed PNEUMOVAX AGE 65 AND OVER WITH 5YR LOOKBACK Completed Data reviewed Component Latest Ref Rng AND Units 01/09/2017 03/15/2017 06/16/2017 10/03/2017 WBC 3.70 - 11.00 k/uL 9.37 RBC 3.90 - 5.20 m/uL 5.27 (H) Hemoglobin 11.5 - 15.5 g/dL 12.5 Hematocrit 36.0 - 46.0 % 41.2 MCV 80.0 - 100.0 fL 78.2 (L) MCH 26.0 - 34.0 pG 23.7 (L) MCHC 30.5 - 36.0 g/dL 30.3 (L) RDW-CV 11.5 - 15.0 % 17.3 (H) Platelet Count 150 - 400 k/uL 224 MPV 9.0 - 12.7 fL 11.6 Neut% % 77.2 Abs Neut (ANC) 1.45 - 7.50 k/uL 7.23 Lymph% % 12.9 Abs Lymph 1.00 - 4.00 k/uL 1.21 [place]% % 6.8 Abs [place] <0.87 k/uL 0.64 Eosin% % 2.0 Abs Eosin <0.46 k/uL 0.19 Baso% % 1.1 Abs Baso <0.11 k/uL 0.10 Nucleated Reds 0 /100 WBC 0.0 Absolute nRBC <0.01 k/uL <0.01 Diff Type Auto Diff Protein, Total 6.3 - 8.0 g/dL 7.1 Albumin 3.9 - 4.9 g/dL 3.9 Calcium 8.5 - 10.2 mg/dL 9.3 Bilirubin, Total 0.2 - 1.3 mg/dL 0.2 Alkaline Phosphatase 32 - 117 U/L 101 AST 13 - 35 U/L 22 Glucose 74 - 99 mg/dL 212 (H) BUN 7 - 21 mg/dL 14 Creatinine 0.58 - 0.96 mg/dL 0.64 Sodium 136 - 144 mmol/L 135 (L) Potassium 3.7 - 5.1 mmol/L 4.8 Chloride 97 - 105 mmol/L 101 CO2 22 - 30 mmol/L 22 Anion Gap 9 - 18 mmol/L 12 ALT 7 - 38 U/L 31 eGFR- >60 eGFR-All Other Races . >60 Hemoglobin A1C 4.3 - 5.6 % 7.2 (H) 8.5 (H) 7.7 (H) Estimated Average Glucose mg/dL 160 197 174 Occult Blood, Stool Negative Negative ASSESSMENT/PLAN: 1. Type 2 diabetes mellitus without complication, without long-term current use of insulin (HCC) - ICD9: 250.00, ICD10: E11.9 (primary diagnosis) Controlled. - Continue current medications - Blood glucose monitoring on a once a day schedule - Encouraged regular aerobic exercise and weight loss - Daily Asprin therapy recommended - Follow up in 3 months, sooner should any other issues arise. 2. Abdominal pain, RUQ - ICD9: 789.01, ICD10: R10.11 - Mild TTP on exam today with intermittent pain at home. Patient refusing further workup today. Discussed possible liver etiology vs gastritis vs muscle soreness. To call if symptoms worsen or change. 3. Other hyperlipidemia - ICD9: 272.4, ICD10: E78.4 - good control - Continue current medication. - Encouraged following a low fat, low cholesterol diet. - Discussed the benefits of regular aerobic exercise and weight loss. 4. ASHD (arteriosclerotic heart disease) - ICD9: 414.00, ICD10: I25.10 Asymptomatic. Continue current regimen. Follow up with cardiology as scheduled. 5. History of mechanical aortic valve replacement - ICD9: V43.3, ICD10: Z95.2 Continue anticoagulation and follow up with cardiology. 6. Chronic anticoagulation - ICD9: V58.61, ICD10: Z79.01 See above. 7. Hypertension goal BP (blood pressure) < 140/90 - ICD9: 401.9, ICD10: I10 - suboptimal control - Continue current medication(s) - Encouraged dietary sodium restriction/DASH diet - Recommended regular aerobic exercise. - Follow up in 1 month for BP recheck. - Reviewed risks of HTN and principles of treatment - Goal of BP <140/90 8. Obesity, Class III, BMI >= 40 (morbid obesity) E66.01 - ICD9: 278.01, ICD10: E66.01 Discussed improved diet and exercise. Recheck at next OV. 9. 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 Recommend follow up in 6 months. - HGB A1C - COMP METABOLIC PANEL - CBC 10. Chronic obstructive pulmonary disease, unspecified COPD type (HCC) - ICD9: 496, ICD10: J44.9 Discussed continued inhaler regimen and staying inside during high temperature portion of the day. Will attempt to get patient Proair instead of ventolin due to side effects. Will start PA if not approved. - ALBUTEROL SULFATE HFA 90 MCG/ACTUATION AEROSOL INHALER Keri Gamez MD PROGRESS Observed: 10/10/2017 Status: COMPLETED Source: [facility] 2:23 PM [facility] REPOSITORY HNO ID: [id number] Author: Brenda Darby RN Service: (none) Author Type: (none) Type: Progress Notes Filed: 10/10/2017 2:25 PM Note Text: patient had inr completed at [facility] patients inr is 2.6 (patients inr range is 3.0-4.0) patient is currently taking 6mg daily patients last dose change was on 10/03/17 due to a high level of 5.5 (dose at that time was 7mg daily) patient has had no changes in medication except for the coumadin and no uninstructed missed doses and no change in diet Advised patient to continue on the same dose(s) and that they would only be contacted regarding dosage and follow up instructions after review with provider, if a change is needed. Written instructions given and patient verbalized understanding. Presently scheduled in 2 weeks (10/24/17) for follow up INR since level is just slightly low but probably caused by holding the 2 doses last week. PROGRESS Observed: 10/03/2017 Status: COMPLETED Source: [facility] 5:01 PM [facility] REPOSITORY HNO ID: [id number] Author: Twila Bah LPN Service: (none) Author Type: (none) Type: Progress Notes Filed: 10/03/2017 5:02 PM Note Text: Pt notified. PROGRESS Observed: 10/03/2017 Status: COMPLETED Source: [facility] 4:53 PM [facility] REPOSITORY HNO ID: [id number] Author: Shawn Lomeli Service: (none) Author Type: Physician Type: Progress Notes Filed: 10/03/2017 5:02 PM Note Text: Hold for 2 days, then go to 6 mg daily Recheck in 1 week Shawn Lomeli MD PROGRESS Observed: 10/03/2017 Status: COMPLETED Source: [facility] 3:03 PM [facility] REPOSITORY HNO ID: [id number] Author: Brenda Darby RN Service: (none) Author Type: (none) Type: Progress Notes Filed: 10/03/2017 3:07 PM Note Text: patient had inr completed at [facility] patients inr is 5.5 (patients inr range is 3.0-4.0) patient is currently taking 7mg daily patients last dose change: unknown as patient has been instructed to change dose over the past several months and always comes back in on 7mg daily patient has had no changes in medication and no missed doses and no change in diet Advised patient that they would be contacted regarding medication dose and when to follow up after information is reviewed by provider. After provider review please contact the patient with information and schedule follow up appointment with coumadin clinic. FYI - patient has been scheduled for a 1 week follow up inr on 10/10/17 PROGRESS Observed: 10/03/2017 Status: COMPLETED Source: [facility] 2:26 PM [facility] REPOSITORY HNO ID: [id number] Author: Himanshu Green) Sybil Service: (none) Author Type: Registered Nurse Type: Progress Notes Filed: 10/03/2017 2:33 PM Note Text: PRIMARY CARE COORDINATION FOLLOW-UP NOTE Provider Action/FYI Lab asking for standing order for INR to be drawn when pt has other labs ORDER PENDED IF YOU APPROVE Patient identified by name and date of . YES Spoke to patient Summary: Patient very emotional regarding family health issues occurring recently. Discussed patient taking care of herself, try to get rest and eat correctly. Pt having labs drawn for 7/3 appt wit PCP [facility] Sorter plan for next outreach: Will follow up 2 months Signature Himanshu Aquino RN October 03, 2017 HEMOGLOBIN A1C Collected: 10/03/2017 Status: F Source: [facility] 2:17 PM [facility] REPOSITORY TYPE CODE TESTS RESULT OUT OF REFERENCE UNITS RANGE LAB HGBA1C 4.3-5.6 % High Hemoglobin A1c 7.7 LAB HBA0 mg/dL Est. Average Glucose 174 Result Comment: eAG: (Estimated average glucose) is a calculated value from HgbA1c and is retail service representative of the average blood glucose level in the last 2-3 month period. Performed By: #### HBA1C #### [facility] [address] [place], [place] [address] CNPTOUTREACH Observed: 10/03/2017 Status: COMPLETED Source: [facility] 12:00 AM [facility] REPOSITORY Patient Outreach (FAMPWS) FLAVIA CASE ([id number]) 1950 F Date Time Provider Department 10/03/17 HIMANSHU AQUINO (RN) FAMPWS During your visit today, we recorded the following information about you: Himanshu Aquino RN 10/03/2017 2:33 PM Signed PRIMARY CARE COORDINATION FOLLOW-UP NOTE Provider Action/FYI Lab asking for standing order for INR to be drawn when pt has other labs ORDER PENDED IF YOU APPROVE Patient identified by name and date of . YES Spoke to patient Summary: Patient very emotional regarding family health issues occurring recently. Discussed patient taking care of herself, try to get rest and eat correctly. Pt having labs drawn for 7/3 appt wit PCP [facility] Sorter plan for next outreach: Will follow up 2 months Signature Himanshu Aquino RN October 03, 2017 Allergies As of Date: 10/03/2017 Noted Allergy Reaction ADVAIR DISKUS (FLUTICASONE-SALMET*05/16/2011 14 - Other: See Comments Comments: CHEST PAIN ASA (SALICYLATES) 05/10/2005 16 - Unknown Comments: patient taking coumadin - on low dose ASA for valve dysfunction CEPHALEXIN 02/21/2008 Comments: Stomach pains-pt. ended up in hospital EKG PADS [Other] 05/10/2005 Comments: adhesive LISINOPRIL 07/03/2014 3 - Cough NEXIUM (ESOMEPRAZOLE MAGNESIUM) 01/26/2016 14 - Other: See Comments Comments: Ineffective OMEPRAZOLE 01/26/2016 14 - Other: See Comments Comments: Ineffective TUDORZA PRESSAIR (ACLIDINIUM BROM*01/26/2016 8 - GI Upset VENTOLIN (ALBUTEROL) 01/26/2016 14 - Other: See Comments Comments: Ventolin MDI does not work, Pro Air works best Date Reviewed: 10/03/2017 Reviewed by: Brenda Darby RN - Fully Assessed Reason for Visit: [place] Chronic Care [3612] Primary Visit Diagnosis:History of mechanical aortic valve replacement [Z95.2] Other Visit Diagnosis:Chronic anticoagulation [Z79.01] Order(s):PROTHROMBIN TIME/PT [SQPT] Order #: [id number] STANDING Prescriptions as of 10/03/2017 Sig: FERROUS SULFATE 325 MG (65 MG* take 1 tablet by mouth twice * ASPIRIN 81 MG TABLET,DELAYED * take 1 tablet by mouth once d* WARFARIN 1 MG TABLET Take 1 tablet by mouth once d* ATENOLOL 100 MG TABLET take 1 tablet by mouth once d* WARFARIN 6 MG TABLET TAKE 7 MG ON Monday* SERTRALINE 100 MG TABLET take 1 tablet by mouth once d* ISOSORBIDE MONONITRATE ER 30 * Take 3 tablets by mouth once * FREESTYLE LITE STRIPS TEST twice a day FREESTYLE LANCETS 28 GAUGE TEST twice a day OXYBUTYNIN CHLORIDE ER 10 MG * take 1 tablet by mouth once d* ATORVASTATIN 20 MG TABLET take 1 tablet by mouth once d* TIZANIDINE 4 MG TABLET Take 1 tablet by mouth at bed* LORATADINE 10 MG TABLET Take 1 tablet by mouth once d* METFORMIN ER 500 MG TABLET,EX* Take 2 tablets by mouth twice* LANSOPRAZOLE 30 MG CAPSULE,DE* Take 1 capsule by mouth twice* POLYETHYLENE GLYCOL 3350 17 G* Take 17 g by mouth once daily. GLIPIZIDE ER 10 MG TABLET, EX* Take 1 tablet by mouth once d* LOSARTAN 100 MG TABLET take 1 tablet by mouth once d* DICLOFENAC 1 % TOPICAL GEL Apply 2 g to affected area tw* LEG BRACE 1 Each continuous. DX: S89.92* FUROSEMIDE 20 MG TABLET take 1 tablet by mouth once d* ALBUTEROL SULFATE HFA 90 MCG/* Inhale 2 Puffs as instructed * LEG BRACE 1 Each continuous. WARFARIN 6 MG TABLET Take 7 mg Daily NITROGLYCERIN 0.4 MG SUBLINGU* Dissolve 1 tablet under the t* NYSTATIN 100,000 UNIT/GRAM TO* Apply 1 application to affect* MECLIZINE 12.5 MG TABLET Take 1 tablet by mouth three * TRAZODONE 50 MG TABLET Take 1 tablet by mouth daily * COMPOUNDED PRESCRIPTION NEBULIZER SUPPLIES, MEDICATIO* COMPOUNDED PRESCRIPTION HOME BP CUFF, DX: HTN LABILE * Problem List As Of Date 10/03/2017 Noted Resolved AORTOCORONARY BYPASS STATUS [Z95.1] More... OVERWEIGHT [E66.9] 05/08/2015 ASHD (arteriosclerotic heart disease) [I25.10] INVALID FOR* More... DIABETES MELLITUS TYPE II-UNCOMPL [E11.9] INVALID FOR*02/12/2014 More... HYPERLIPIDEMIA NEC/NOS [E78.5] INVALID FOR*07/24/2015 More... Hematuria [599.7] INVALID FOR*07/24/2015 More... History of mechanical aortic valve replacement *INVALID FOR* More... Abdominal pain, unspecified site [R10.9] INVALID FOR*05/08/2015 Acute gastritis without mention of hemorrhage [*INVALID FOR*01/26/2016 Esophageal reflux [K21.9] INVALID FOR* More... Headache(784.0) [R51] INVALID FOR*01/26/2016 Bronchitis Recurrent [J40] INVALID FOR*03/21/2017 Hallux valgus (acquired) [M20.10] INVALID FOR*07/24/2015 Pain in limb [M79.609] INVALID FOR*01/26/2016 Goiter [E04.9] INVALID FOR* S/P AVR [Z95.2] INVALID FOR*01/26/2016 Multinodular thyroid [E04.2] INVALID FOR* Emphysema of lung (HCC) [J43.9] More... Hyperlipemia [E78.5] INVALID FOR* DM type 2 (diabetes mellitus, type 2) (HCC) [E1*INVALID FOR*05/08/2015 Hematuria [R31.9] INVALID FOR*10/23/2015 Smoking [F17.200] INVALID FOR*10/23/2015 Chronic anticoagulation [Z79.01] INVALID FOR* OAB (overactive bladder) [N32.81] INVALID FOR* More... Frequency of urination [R35.0] INVALID FOR*01/26/2016 Hypertension goal BP (blood pressure) < 140/90 *INVALID FOR* More... Diabetes mellitus type 2, uncontrolled, without*INVALID FOR*03/21/2017 More... Nicole rash of groin [B37.89] INVALID FOR* More... Stress at home [F43.9] INVALID FOR* Insomnia [G47.00] INVALID FOR* Financial difficulties [Z59.8] INVALID FOR* Obesity, Class III, BMI >= 40 (morbid obesity) *INVALID FOR* Hemoptysis [R04.2] INVALID FOR* Priority: A More... 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 Eczema [L30.9] Diabetes mellitus (HCC) [E11.9] Encounter Status:Closed by HIMANSHU AQUINO on 10/03/17 PROGRESS Observed: 09/26/2017 Status: COMPLETED Source: [place] 5:24 PM [facility] REPOSITORY HNO ID: [id number] Author: Keri Mo) Vera Service: (none) Author Type: Physician Type: Progress Notes Filed: 09/26/2017 5:25 PM Note Text: Reviewed. PROGRESS Observed: 09/21/2017 Status: COMPLETED Source: [place] 11:21 AM [facility] REPOSITORY HNO ID: [id number] Author: Himanshu Green) Sybil Service: (none) Author Type: Registered Nurse Type: Progress Notes Filed: 09/26/2017 4:27 PM Note Text: PRIMARY CARE COORDINATION FOLLOW-UP NOTE Provider Action/FYI Pt missed August INR due to family emergencies, scheduled for next week PCP appt rescheduled for October. Instructed to have A1C drawn even though pt hasn't been following diet Patient identified by name and date of . YES Spoke to patient on 09/26 Summary: Pt has had multiple family emergencies, son had nerve/brain damage during surgery and is home now with speech therapy. Ex- has oral cancer and is now on hospice. Pt has not been following her diet or doing self care. Appointment rescheduled for first week in October. Instructed even though she has not been following diet she should have her A1C drawn so PCP is aware of how her diabetes is doing right now. Because he may want to change her medication, verbalized understanding. Pt missed having her INR done in August, appt scheduled for 10/03. Concerns: TC to patient, left message asking pt to call PCC back. PCC was worried about pt after last call and the stress pt was going though with her son's stroke. Himanshu Aquino RN September 21, 2017 11:22 AM [employer] plan for next outreach: Will follow up one month Signature Himanshu Aquino RN September 21, 2017 LIBORIO Observed: 09/21/2017 Status: COMPLETED Source: [place] 12:00 AM [facility] REPOSITORY Patient Outreach (FAMPWS) FLAVIA CASE ([id number]) 1950 F Date Time Provider Department 09/21/17 HIMANSHU AQUINO (RN) FAMPWS During your visit today, we recorded the following information about you: Himanshu Aquino RN 09/26/2017 4:27 PM Signed PRIMARY CARE COORDINATION FOLLOW-UP NOTE Provider Action/FYI Pt missed August INR due to family emergencies, scheduled for next week PCP appt rescheduled for October. Instructed to have A1C drawn even though pt hasn't been following diet Patient identified by name and date of . YES Spoke to patient on 09/26 Summary: Pt has had multiple family emergencies, son had nerve/brain damage during surgery and is home now with speech therapy. Ex- has oral cancer and is now on hospice. Pt has not been following her diet or doing self care. Appointment rescheduled for first week in October. Instructed even though she has not been following diet she should have her A1C drawn so PCP is aware of how her diabetes is doing right now. Because he may want to change her medication, verbalized understanding. Pt missed having her INR done in August, appt scheduled for 10/03. Concerns: TC to patient, left message asking pt to call PCC back. PCC was worried about pt after last call and the stress pt was going though with her son's stroke. Himanshu Aquino RN September 21, 2017 11:22 AM [employer] plan for next outreach: Will follow up one month Signature Himanshu Aquino RN September 21, 2017 Keri Gamez MD 09/26/2017 5:25 PM Signed Reviewed. Allergies As of Date: 09/21/2017 Noted Allergy Reaction ADVAIR DISKUS (FLUTICASONE-SALMET*05/16/2011 14 - Other: See Comments Comments: CHEST PAIN ASA (SALICYLATES) 05/10/2005 16 - Unknown Comments: patient taking coumadin - on low dose ASA for valve dysfunction CEPHALEXIN 02/21/2008 Comments: Stomach pains-pt. ended up in hospital EKG PADS [Other] 05/10/2005 Comments: adhesive LISINOPRIL 07/03/2014 3 - Cough NEXIUM (ESOMEPRAZOLE MAGNESIUM) 01/26/2016 14 - Other: See Comments Comments: Ineffective OMEPRAZOLE 01/26/2016 14 - Other: See Comments Comments: Ineffective TUDORZA PRESSAIR (ACLIDINIUM BROM*01/26/2016 8 - GI Upset VENTOLIN (ALBUTEROL) 01/26/2016 14 - Other: See Comments Comments: Ventolin MDI does not work, Pro Air works best Date Reviewed: 08/15/2017 Reviewed by: Brenda Darby RN - Fully Assessed Reason for Visit: Crown Buffer Chronic Care [0122] Prescriptions as of 09/21/2017 Sig: FERROUS SULFATE 325 MG (65 MG* take 1 tablet by mouth twice * ASPIRIN 81 MG TABLET,DELAYED * take 1 tablet by mouth once d* WARFARIN 1 MG TABLET Take 1 tablet by mouth once d* ATENOLOL 100 MG TABLET take 1 tablet by mouth once d* WARFARIN 6 MG TABLET TAKE 7 MG ON Monday* SERTRALINE 100 MG TABLET take 1 tablet by mouth once d* ISOSORBIDE MONONITRATE ER 30 * Take 3 tablets by mouth once * FREESTYLE LITE STRIPS TEST twice a day FREESTYLE LANCETS 28 GAUGE TEST twice a day OXYBUTYNIN CHLORIDE ER 10 MG * take 1 tablet by mouth once d* ATORVASTATIN 20 MG TABLET take 1 tablet by mouth once d* TIZANIDINE 4 MG TABLET Take 1 tablet by mouth at bed* LORATADINE 10 MG TABLET Take 1 tablet by mouth once d* METFORMIN ER 500 MG TABLET,EX* Take 2 tablets by mouth twice* LANSOPRAZOLE 30 MG CAPSULE,DE* Take 1 capsule by mouth twice* POLYETHYLENE GLYCOL 3350 17 G* Take 17 g by mouth once daily. GLIPIZIDE ER 10 MG TABLET, EX* Take 1 tablet by mouth once d* LOSARTAN 100 MG TABLET take 1 tablet by mouth once d* DICLOFENAC 1 % TOPICAL GEL Apply 2 g to affected area tw* LEG BRACE 1 Each continuous. DX: S89.92* FUROSEMIDE 20 MG TABLET take 1 tablet by mouth once d* ALBUTEROL SULFATE HFA 90 MCG/* Inhale 2 Puffs as instructed * LEG BRACE 1 Each continuous. WARFARIN 6 MG TABLET Take 7 mg Daily NITROGLYCERIN 0.4 MG SUBLINGU* Dissolve 1 tablet under the t* NYSTATIN 100,000 UNIT/GRAM TO* Apply 1 application to affect* MECLIZINE 12.5 MG TABLET Take 1 tablet by mouth three * TRAZODONE 50 MG TABLET Take 1 tablet by mouth daily * COMPOUNDED PRESCRIPTION NEBULIZER SUPPLIES, MEDICATIO* COMPOUNDED PRESCRIPTION HOME BP CUFF, DX: HTN LABILE * Problem List As Of Date 09/21/2017 Noted Resolved AORTOCORONARY BYPASS STATUS [Z95.1] More... OVERWEIGHT [E66.9] 05/08/2015 ASHD (arteriosclerotic heart disease) [I25.10] INVALID FOR* More... DIABETES MELLITUS TYPE II-UNCOMPL [E11.9] INVALID FOR*02/12/2014 More... HYPERLIPIDEMIA NEC/NOS [E78.5] INVALID FOR*07/24/2015 More... Hematuria [599.7] INVALID FOR*07/24/2015 More... History of mechanical aortic valve replacement *INVALID FOR* More... Abdominal pain, unspecified site [R10.9] INVALID FOR*05/08/2015 Acute gastritis without mention of hemorrhage [*INVALID FOR*01/26/2016 Esophageal reflux [K21.9] INVALID FOR* More... Headache(784.0) [R51] INVALID FOR*01/26/2016 Bronchitis Recurrent [J40] INVALID FOR*03/21/2017 Hallux valgus (acquired) [M20.10] INVALID FOR*07/24/2015 Pain in limb [M79.609] INVALID FOR*01/26/2016 Goiter [E04.9] INVALID FOR* S/P AVR [Z95.2] INVALID FOR*01/26/2016 Multinodular thyroid [E04.2] INVALID FOR* Emphysema of lung (HCC) [J43.9] More... Hyperlipemia [E78.5] INVALID FOR* DM type 2 (diabetes mellitus, type 2) (HCC) [E1*INVALID FOR*05/08/2015 Hematuria [R31.9] INVALID FOR*10/23/2015 Smoking [F17.200] INVALID FOR*10/23/2015 Chronic anticoagulation [Z79.01] INVALID FOR* OAB (overactive bladder) [N32.81] INVALID FOR* More... Frequency of urination [R35.0] INVALID FOR*01/26/2016 Hypertension goal BP (blood pressure) < 140/90 *INVALID FOR* More... Diabetes mellitus type 2, uncontrolled, without*INVALID FOR*03/21/2017 More... Nicole rash of groin [B37.89] INVALID FOR* More... Stress at home [F43.9] INVALID FOR* Insomnia [G47.00] INVALID FOR* Financial difficulties [Z59.8] INVALID FOR* Obesity, Class III, BMI >= 40 (morbid obesity) *INVALID FOR* Hemoptysis [R04.2] INVALID FOR* Priority: A More... 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 Eczema [L30.9] Diabetes mellitus (HCC) [E11.9] Encounter Status:Closed by HIMANSHU AQUINO on 09/27/17 PROGRESS Observed: 08/30/2017 Status: COMPLETED Source: [place] 8:58 AM [facility] REPOSITORY HNO ID: [id number] Author: Keri Gamez) Service: (none) Author Type: Physician Type: Progress Notes Filed: 08/30/2017 8:58 AM Note Text: Reviewed. PROGRESS Observed: 08/29/2017 Status: COMPLETED Source: [place] 5:10 PM [facility] REPOSITORY HNO ID: [id number] Author: Himanshu Aquino (Rn) Service: (none) Author Type: Registered Nurse Type: Progress Notes Filed: 08/30/2017 8:56 AM Note Text: PRIMARY CARE COORDINATION FOLLOW-UP NOTE Provider Action/FYI Discussed understanding of stress with son's stroke however discussed taking care of herself, including rest, taking diuretic, elevating LE and watching diet. Patient identified by name and date of . YES Spoke to patient Summary: Pt's son went in for rotator cuff surgery and had a massive stroke in surgery. He is only 46 years old. Pt has been going to hospital so she hasn't been taking her diuretic and her ankles are very swollen. She elevates them when she gets home and takes diuretic if she's home Pt hasn't been watching her diet and hasn't been taking her diuretic as she should. BS in [facility]'s [employer] plan for next outreach: Will follow up 2-3 weeks Signature Himanshu Aquino RN August 29, 2017 CNPTOUTREACH Observed: 08/29/2017 Status: COMPLETED Source: [place] 12:00 AM [facility] REPOSITORY Patient Outreach (FAMPWS) FLAVIA CASE ([id number]) 1950 F Date Time Provider Department 08/29/17 HIMANSHU AQUINO (RN) FAMPWS During your visit today, we recorded the following information about you: Himanshu Aquino (Rn) 08/30/2017 8:56 AM Signed PRIMARY CARE COORDINATION FOLLOW-UP NOTE Provider Action/FYI Discussed understanding of stress with son's stroke however discussed taking care of herself, including rest, taking diuretic, elevating LE and watching diet. Patient identified by name and date of . YES Spoke to patient Summary: Pt's son went in for rotator cuff surgery and had a massive stroke in surgery. He is only 46 years old. Pt has been going to hospital so she hasn't been taking her diuretic and her ankles are very swollen. She elevates them when she gets home and takes diuretic if she's home Pt hasn't been watching her diet and hasn't been taking her diuretic as she should. BS in [facility]'s [employer] plan for next outreach: Will follow up 2-3 weeks Signature Himanshu Aquino RN August 29, 2017 Keri Gamez) 08/30/2017 8:58 AM Signed Reviewed. Allergies As of Date: 08/29/2017 Noted Allergy Reaction ADVAIR DISKUS (FLUTICASONE-SALMET*05/16/2011 14 - Other: See Comments Comments: CHEST PAIN ASA (SALICYLATES) 05/10/2005 16 - Unknown Comments: patient taking coumadin - on low dose ASA for valve dysfunction CEPHALEXIN 02/21/2008 Comments: Stomach pains-pt. ended up in hospital EKG PADS [Other] 05/10/2005 Comments: adhesive LISINOPRIL 07/03/2014 3 - Cough NEXIUM (ESOMEPRAZOLE MAGNESIUM) 01/26/2016 14 - Other: See Comments Comments: Ineffective OMEPRAZOLE 01/26/2016 14 - Other: See Comments Comments: Ineffective TUDORZA PRESSAIR (ACLIDINIUM BROM*01/26/2016 8 - GI Upset VENTOLIN (ALBUTEROL) 01/26/2016 14 - Other: See Comments Comments: Ventolin MDI does not work, Pro Air works best Date Reviewed: 08/15/2017 Reviewed by: Brenda Darby RN - Fully Assessed Reason for Visit: Crown Buffer Chronic Care [0690] Prescriptions as of 08/29/2017 Sig: ATENOLOL 100 MG TABLET take 1 tablet by mouth once d* WARFARIN 6 MG TABLET TAKE 7 MG ON Monday* SERTRALINE 100 MG TABLET take 1 tablet by mouth once d* ISOSORBIDE MONONITRATE ER 30 * Take 3 tablets by mouth once * FREESTYLE LITE STRIPS TEST twice a day FREESTYLE LANCETS 28 GAUGE TEST twice a day OXYBUTYNIN CHLORIDE ER 10 MG * take 1 tablet by mouth once d* ATORVASTATIN 20 MG TABLET take 1 tablet by mouth once d* TIZANIDINE 4 MG TABLET Take 1 tablet by mouth at bed* LORATADINE 10 MG TABLET Take 1 tablet by mouth once d* METFORMIN ER 500 MG TABLET,EX* Take 2 tablets by mouth twice* LANSOPRAZOLE 30 MG CAPSULE,DE* Take 1 capsule by mouth twice* POLYETHYLENE GLYCOL 3350 17 G* Take 17 g by mouth once daily. GLIPIZIDE ER 10 MG TABLET, EX* Take 1 tablet by mouth once d* ASPIRIN 81 MG TABLET,DELAYED * take 1 tablet by mouth once d* LOSARTAN 100 MG TABLET take 1 tablet by mouth once d* FERROUS SULFATE 325 MG (65 MG* Take 1 tablet by mouth twice * DICLOFENAC 1 % TOPICAL GEL Apply 2 g to affected area tw* LEG BRACE 1 Each continuous. DX: S89.92* FUROSEMIDE 20 MG TABLET take 1 tablet by mouth once d* ALBUTEROL SULFATE HFA 90 MCG/* Inhale 2 Puffs as instructed * LEG BRACE 1 Each continuous. WARFARIN 6 MG TABLET Take 7 mg Daily NITROGLYCERIN 0.4 MG SUBLINGU* Dissolve 1 tablet under the t* NYSTATIN 100,000 UNIT/GRAM TO* Apply 1 application to affect* MECLIZINE 12.5 MG TABLET Take 1 tablet by mouth three * WARFARIN 1 MG TABLET take 1 tablet by mouth once d* TRAZODONE 50 MG TABLET Take 1 tablet by mouth daily * COMPOUNDED PRESCRIPTION NEBULIZER SUPPLIES, MEDICATIO* COMPOUNDED PRESCRIPTION HOME BP CUFF, DX: HTN LABILE * Problem List As Of Date 08/29/2017 Noted Resolved AORTOCORONARY BYPASS STATUS [Z95.1] More... OVERWEIGHT [E66.9] 05/08/2015 ASHD (arteriosclerotic heart disease) [I25.10] INVALID FOR* More... DIABETES MELLITUS TYPE II-UNCOMPL [E11.9] INVALID FOR*02/12/2014 More... HYPERLIPIDEMIA NEC/NOS [E78.5] INVALID FOR*07/24/2015 More... Hematuria [599.7] INVALID FOR*07/24/2015 More... History of mechanical aortic valve replacement *INVALID FOR* More... Abdominal pain, unspecified site [R10.9] INVALID FOR*05/08/2015 Acute gastritis without mention of hemorrhage [*INVALID FOR*01/26/2016 Esophageal reflux [K21.9] INVALID FOR* More... Headache(784.0) [R51] INVALID FOR*01/26/2016 Bronchitis Recurrent [J40] INVALID FOR*03/21/2017 Hallux valgus (acquired) [M20.10] INVALID FOR*07/24/2015 Pain in limb [M79.609] INVALID FOR*01/26/2016 Goiter [E04.9] INVALID FOR* S/P AVR [Z95.2] INVALID FOR*01/26/2016 Multinodular thyroid [E04.2] INVALID FOR* Emphysema of lung (HCC) [J43.9] More... Hyperlipemia [E78.5] INVALID FOR* DM type 2 (diabetes mellitus, type 2) (HCC) [E1*INVALID FOR*05/08/2015 Hematuria [R31.9] INVALID FOR*10/23/2015 Smoking [F17.200] INVALID FOR*10/23/2015 Chronic anticoagulation [Z79.01] INVALID FOR* OAB (overactive bladder) [N32.81] INVALID FOR* More... Frequency of urination [R35.0] INVALID FOR*01/26/2016 Hypertension goal BP (blood pressure) < 140/90 *INVALID FOR* More... Diabetes mellitus type 2, uncontrolled, without*INVALID FOR*03/21/2017 More... Nicole rash of groin [B37.89] INVALID FOR* More... Stress at home [F43.9] INVALID FOR* Insomnia [G47.00] INVALID FOR* Financial difficulties [Z59.8] INVALID FOR* Obesity, Class III, BMI >= 40 (morbid obesity) *INVALID FOR* Hemoptysis [R04.2] INVALID FOR* Priority: A More... 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 Eczema [L30.9] Diabetes mellitus (HCC) [E11.9] Encounter Status:Closed by HIMANSHU AQUINO on 08/30/17 PROGRESS Observed: 08/17/2017 Status: COMPLETED Source: [place] 1:08 PM [facility] REPOSITORY HNO ID: [id number] Author: Anastasiya Swift RN Service: (none) Author Type: (none) Type: Progress Notes Filed: 08/17/2017 1:09 PM Note Text: Patient notified of results and provider's instructions. Patient verbalizes understanding. Anastasiya Swift RN PROGRESS Observed: 08/17/2017 Status: COMPLETED Source: ARARAT 1:03 PM [facility] REPOSITORY HNO ID: [id number] Author: Keri Mo) Vera Service: (none) Author Type: Physician Type: Progress Notes Filed: 08/17/2017 1:04 PM Note Text: INR therapeutic. Continue current coumadin dosage and follow up in 4 weeks. PROGRESS Observed: 08/17/2017 Status: COMPLETED Source: AR[place] 12:57 PM [facility] REPOSITORY HNO ID: [id number] Author: Anastasiya Swift RN Service: (none) Author Type: (none) Type: Progress Notes Filed: 08/17/2017 1:09 PM Note Text: Clarification of instructions: Patient held coumadin last two days due to higher INR of 5.2 on 08/15, is she to return to taking 7 mg daily and recheck in one month? Please review and advise. Anastasiya Switf RN PROGRESS Observed: 08/17/2017 Status: COMPLETED Source: AR[place] 10:49 AM [facility] REPOSITORY HNO ID: [id number] Author: Keri Mo) Vera Service: (none) Author Type: Physician Type: Progress Notes Filed: 08/17/2017 10:49 AM Note Text: INR therapeutic. Continue current coumadin dosage and follow up in 4 weeks. PROGRESS Observed: 08/17/2017 Status: COMPLETED Source: AR[place] 10:34 AM [facility] REPOSITORY HNO ID: [id number] Author: Anastasiya Swift RN Service: (none) Author Type: (none) Type: Progress Notes Filed: 08/17/2017 1:09 PM Note Text: INR 3.2 (Target INR range Of 3.0 - 4.0, valve replacement)-results reviewed with patient. Current Coumadin dose is on hold last two days due to INR Of 5.2 on 08/15/17. Previous dose of 7 mg daily Previous INR on 07/28/17 was 3.0. Has 1 mg and 6 mg tablets. Advised patient would be contacted regarding dosage and followup instructions after review by provider. Written instructions given and patient verbalized understanding. Anastasiya Swift RN PROGRESS Observed: 08/15/2017 Status: COMPLETED Source: [place] 5:12 PM [facility] REPOSITORY HNO ID: [id number] Author: Cortney Christian LPN Service: (none) Author Type: (none) Type: Progress Notes Filed: 08/15/2017 5:13 PM Note Text: Pt notified of message. Pt notified of holding coumadin tonight and tomorrow. Recheck in 2 days. Appt scheduled with CC. Cortney Christian LPN PROGRESS Observed: 08/15/2017 Status: COMPLETED Source: ARARAT 5:12 PM [facility] REPOSITORY HNO ID: [id number] Author: Cortney Christian LPN Service: (none) Author Type: (none) Type: Progress Notes Filed: 08/15/2017 5:13 PM Note Text: This note was created using [employer]. Subjective Flavia Case is a 67 year old female. Review of Systems Objective There were no vitals taken for this visit. Physical Exam Assessment and Plan PROGRESS Observed: 08/15/2017 Status: COMPLETED Source: AR[place] 4:02 PM [facility] REPOSITORY HNO ID: [id number] Author: Daphne Saleem LPN Service: (none) Author Type: (none) Type: Progress Notes Filed: 08/15/2017 5:13 PM Note Text: Left message for patient to call back PROGRESS Observed: 08/15/2017 Status: COMPLETED Source: [place] 3:24 PM [facility] REPOSITORY HNO ID: [id number] Author: Geo Pimentel Service: (none) Author Type: Physician Type: Progress Notes Filed: 08/15/2017 5:13 PM Note Text: This note was created using [employer]. Subjective Flavia Case is a 67 year old female. Review of Systems Objective There were no vitals taken for this visit. Physical Exam Assessment and Plan Hold and recheck in two days. Call if any bleeding issues PROGRESS Observed: 08/15/2017 Status: COMPLETED Source: [place] 3:17 PM [facility] REPOSITORY HNO ID: [id number] Author: Brenda Darby RN Service: (none) Author Type: (none) Type: Progress Notes Filed: 08/15/2017 3:22 PM Note Text: patient had inr completed at [facility] patients inr is 5.2 (patients inr rnage is 3.0-4.0) patient is currently taking 7mg daily patients last dose change was to be on 07/26/17 due to a high level of 6.5. patient was to change from 7mg to hold for 3 days and then start 6mg Fri,Sat,Sun and 7mg all other days but patient did not get the message of dosage change. patient has had no changes in medication and no missed doses and no change in diet Since patient did not get the information on the dose change patient has been given the previous instructions again from when level was high on 07/26/17 of to hold coumadin for 3 days and then restart on Monday with the dose of 6mg Fri,Sat,Sun and 7mg all other days and recheck level again on Monday (08/21/17) PROGRESS Observed: 08/11/2017 Status: COMPLETED Source: [place] 8:51 AM [facility] REPOSITORY HNO ID: [id number] Author: Wade Corado Service: (none) Author Type: Physician Type: Progress Notes Filed: 08/11/2017 9:00 AM Note Text: Noted. I was not aware that the dose had been increased or that she was having chest pain. Please have her call if discomfort returns. Wade Corado MD PROGRESS Observed: 08/10/2017 Status: COMPLETED Source: [place] 12:02 PM [facility] REPOSITORY HNO ID: [id number] Author: Himanshu Green) Sybil Service: (none) Author Type: Registered Nurse Type: Progress Notes Filed: 08/10/2017 3:35 PM Note Text: PRIMARY CARE COORDINATION FOLLOW-UP NOTE Provider Action/FYI Dr. Corado, please note below, increase in Imdur has helped pt's chest pain Patient identified by name and date of . YES Patient called back and left message Summary: Pt states increasing Imdur has helped her chest pain. Pt had one slight episode of chest tightness when I got really upset, but I calmed down and it went away. I didn't have any smothering with it. States NTG does help when she has chest pain and she will take it if the pain gets worse. 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 Corado, please note below, increase in Imdur has helped pt's chest pain Patient identified by name and date of . YES Patient called back and left message Summary: Pt states increasing Imdur has helped her chest pain. Pt had one slight episode of chest ANDquot;tightness when I got really upset, but I calmed down and it went away. I didn't have any smothering with it.ANDquot; States NTG does help when she has chest pain and she will take it if the pain gets worse. 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 I was not aware that the dose had been increased or that she was having chest pain. Please have her call if discomfort returns. Wade Corado MD Allergies As of Date: 08/10/2017 Noted Allergy Reaction ADVAIR DISKUS (FLUTICASONE-SALMET*05/16/2011 14 - Other: See Comments Comments: CHEST PAIN ASA (SALICYLATES) 05/10/2005 16 - Unknown Comments: patient taking coumadin - on low dose ASA for valve dysfunction CEPHALEXIN 02/21/2008 Comments: Stomach pains-pt. ended up in hospital EKG PADS [Other] 05/10/2005 Comments: adhesive LISINOPRIL 07/03/2014 3 - Cough NEXIUM (ESOMEPRAZOLE MAGNESIUM) 01/26/2016 14 - Other: See Comments Comments: Ineffective OMEPRAZOLE 01/26/2016 14 - Other: See Comments Comments: Ineffective TUDORZA PRESSAIR (ACLIDINIUM BROM*01/26/2016 8 - GI Upset VENTOLIN (ALBUTEROL) 01/26/2016 14 - Other: See Comments Comments: Ventolin MDI does not work, Pro Air works best Date Reviewed: 07/28/2017 Reviewed by: Brenda Darby RN - Fully Assessed Reason for Visit: Crown Buffer Chronic Care [3619] Prescriptions as of 08/10/2017 Sig: ISOSORBIDE MONONITRATE ER 30 * Take 3 tablets by mouth once * FREESTYLE LITE STRIPS TEST twice a day FREESTYLE LANCETS 28 GAUGE TEST twice a day OXYBUTYNIN CHLORIDE ER 10 MG * take 1 tablet by mouth once d* ATORVASTATIN 20 MG TABLET take 1 tablet by mouth once d* TIZANIDINE 4 MG TABLET Take 1 tablet by mouth at bed* LORATADINE 10 MG TABLET Take 1 tablet by mouth once d* METFORMIN ER 500 MG TABLET,EX* Take 2 tablets by mouth twice* ATENOLOL 100 MG TABLET Take 1 tablet by mouth once d* LANSOPRAZOLE 30 MG CAPSULE,DE* Take 1 capsule by mouth twice* POLYETHYLENE GLYCOL 3350 17 G* Take 17 g by mouth once daily. GLIPIZIDE ER 10 MG TABLET, EX* Take 1 tablet by mouth once d* ASPIRIN 81 MG TABLET,DELAYED * take 1 tablet by mouth once d* LOSARTAN 100 MG TABLET take 1 tablet by mouth once d* FERROUS SULFATE 325 MG (65 MG* Take 1 tablet by mouth twice * DICLOFENAC 1 % TOPICAL GEL Apply 2 g to affected area tw* LEG BRACE 1 Each continuous. DX: S89.92* FUROSEMIDE 20 MG TABLET take 1 tablet by mouth once d* ALBUTEROL SULFATE HFA 90 MCG/* Inhale 2 Puffs as instructed * LEG BRACE 1 Each continuous. WARFARIN 6 MG TABLET Take 7 mg Daily NITROGLYCERIN 0.4 MG SUBLINGU* Dissolve 1 tablet under the t* NYSTATIN 100,000 UNIT/GRAM TO* Apply 1 application to affect* MECLIZINE 12.5 MG TABLET Take 1 tablet by mouth three * WARFARIN 1 MG TABLET take 1 tablet by mouth once d* TRAZODONE 50 MG TABLET Take 1 tablet by mouth daily * COMPOUNDED PRESCRIPTION NEBULIZER SUPPLIES, MEDICATIO* COMPOUNDED PRESCRIPTION HOME BP CUFF, DX: HTN LABILE * Problem List As Of Date 08/10/2017 Noted Resolved AORTOCORONARY BYPASS STATUS [Z95.1] More... OVERWEIGHT [E66.9] 05/08/2015 ASHD (arteriosclerotic heart disease) [I25.10] INVALID FOR* More... DIABETES MELLITUS TYPE II-UNCOMPL [E11.9] INVALID FOR*02/12/2014 More... HYPERLIPIDEMIA NEC/NOS [E78.5] INVALID FOR*07/24/2015 More... Hematuria [599.7] INVALID FOR*07/24/2015 More... History of mechanical aortic valve replacement *INVALID FOR* More... Abdominal pain, unspecified site [R10.9] INVALID FOR*05/08/2015 Acute gastritis without mention of hemorrhage [*INVALID FOR*01/26/2016 Esophageal reflux [K21.9] INVALID FOR* More... Headache(784.0) [R51] INVALID FOR*01/26/2016 Bronchitis Recurrent [J40] INVALID FOR*03/21/2017 Hallux valgus (acquired) [M20.10] INVALID FOR*07/24/2015 Pain in limb [M79.609] INVALID FOR*01/26/2016 Goiter [E04.9] INVALID FOR* S/P AVR [Z95.2] INVALID FOR*01/26/2016 Multinodular thyroid [E04.2] INVALID FOR* Emphysema of lung (HCC) [J43.9] More... Hyperlipemia [E78.5] INVALID FOR* DM type 2 (diabetes mellitus, type 2) (HCC) [E1*INVALID FOR*05/08/2015 Hematuria [R31.9] INVALID FOR*10/23/2015 Smoking [F17.200] INVALID FOR*10/23/2015 Chronic anticoagulation [Z79.01] INVALID FOR* OAB (overactive bladder) [N32.81] INVALID FOR* More... Frequency of urination [R35.0] INVALID FOR*01/26/2016 Hypertension goal BP (blood pressure) < 140/90 *INVALID FOR* More... Diabetes mellitus type 2, uncontrolled, without*INVALID FOR*03/21/2017 More... Nicole rash of groin [B37.89] INVALID FOR* More... Stress at home [F43.9] INVALID FOR* Insomnia [G47.00] INVALID FOR* Financial difficulties [Z59.8] INVALID FOR* Obesity, Class III, BMI >= 40 (morbid obesity) *INVALID FOR* Hemoptysis [R04.2] INVALID FOR* Priority: A More... 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 Eczema [L30.9] Diabetes mellitus (HCC) [E11.9] Encounter Status:Closed by HIMANSHU AQUINO on 08/11/17 PROGRESS Observed: 08/03/2017 Status: COMPLETED Source: ARARAT 3:09 PM [facility] [place] REPOSITORY HNO ID: [id number] Author: Carlotta Rodas Service: (none) Author Type: Financial Institution Branch Manager Type: Progress Notes Filed: 08/03/2017 4:38 PM Note Text: Patient notified and verbalized understanding. Please file med update. Carlotta Rodas MA PROGRESS Observed: 08/03/2017 Status: COMPLETED Source: ARAR[place] 12:11 PM [facility] REPOSITORY HNO ID: [id number] Author: Wade Corado Service: (none) Author Type: Physician Type: Progress Notes Filed: 08/03/2017 4:38 PM Note Text: Increase Imdur to 90 milligrams daily and use sublingual nitroglycerin as needed for sudden shortness of breath or tightness. Report progress next week and we will decide whether she needs a stress test. Wade Corado MD PROGRESS Observed: 08/03/2017 Status: COMPLETED Source: ARARAT 11:57 AM [facility] REPOSITORY HNO ID: [id number] Author: Carlotta Rodas Service: (none) Author Type: Financial Institution Branch Manager Type: Progress Notes Filed: 08/03/2017 4:38 PM Note Text: Patient stated that she didn't know she had the stress test ordered. She is willing to try the nitroglycerin. Carlotta Rodas MA PROGRESS Observed: 08/02/2017 Status: COMPLETED Source: ARAR[place] 4:25 PM [facility] REPOSITORY HNO ID: [id number] Author: Carlotta Rodas Service: (none) Author Type: Financial Institution Branch Manager Type: Progress Notes Filed: 08/03/2017 4:38 PM Note Text: Left message for patient to call back. Carlotta Rodas MA PROGRESS Observed: 08/02/2017 Status: COMPLETED Source: AR[place] 4:19 PM [facility] REPOSITORY HNO ID: [id number] Author: Wade Corado Service: (none) Author Type: Physician Type: Progress Notes Filed: 08/03/2017 4:38 PM Note Text: Chest tightness with exercise is not normal. It appears that she had a stress test ordered last summer but never completed. I cannot tell why this was ordered at that time but my name is the ordering Dr. Does she remember why she didn't have it done? Is she willing to try some long acting nitroglycerin? Wade Corado MD PROGRESS Observed: 08/02/2017 Status: COMPLETED Source: [place] 12:09 PM [facility] REPOSITORY HNO ID: [id number] Author: Keri Mo) Vera Service: (none) Author Type: Physician Type: Progress Notes Filed: 08/02/2017 12:09 PM Note Text: Reviewed. Continue current regimen without changes. Work on improved diet and exercise as able. PROGRESS Observed: 07/28/2017 Status: COMPLETED Source: AR[place] 4:47 PM [facility] REPOSITORY HNO ID: [id number] Author: Himanshu Green) Sybil Service: (none) Author Type: Registered Nurse Type: Progress Notes Filed: 08/03/2017 4:38 PM Note Text: PRIMARY CARE COORDINATION FOLLOW-UP NOTE Provider Action/FYI Please note BS SOB with ambulating into taoism and up 6 steps. Occasional productive cough, expectorating clear mucous. Chest pain with exertion. States this has been the norm. Chest pain stops with rest Patient doesn't take NTG because it causes headache. States she gets a sl headache with Imdur LE edema at baseline. Edema down in AM and increases throughout day. Pt elevates LE and is watching salt. Patient identified by name and date of . YES Spoke to patient Summary: Pt doesn't write down dates or times of BS BS 202, 123, 127, 170, 126, 131, 168 States higher BS are PP (usually 1-3 hrs PP) metFORMIN ER (GLUCOPHAGE XR) 500 mg Take 2 tablets by mouth twice daily. glipiZIDE XL (GLUCOTROL XL) 10 mg Take 1 tablet by mouth once daily. Noted SOB with ambulating into taoism and up 6 steps. Notes occasional productive cough, expectorating clear mucous. Notes chest pain with exertion. States this has been the norm. Chest pain stops with rest Patient doesn't take NTG because it causes headache. States she gets a sl headache with Imdur LE edema at baseline. Edema down in AM and increases throughout day. Pt elevates LE and is watching salt. 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 Tracker updated. Janki Woodard CMA PROGRESS Observed: 07/28/2017 Status: COMPLETED Source: AR[place] 3:50 PM [facility] REPOSITORY HNO ID: [id number] Author: Keri Gamez Service: (none) Author Type: Physician Type: Progress Notes Filed: 07/28/2017 3:50 PM Note Text: INR therapeutic. Start back at 6 mg Fri, sat, sun and 7 mg all other days. Recheck in 1 week. PROGRESS Observed: 07/28/2017 Status: COMPLETED Source: ARAR[place] 2:48 PM [facility] REPOSITORY HNO ID: [id number] Author: Brenda Darby RN Service: (none) Author Type: (none) Type: Progress Notes Filed: 07/28/2017 2:50 PM Note Text: patient had inr completed at [facility] patients inr is 3.0 (patients inr range is 3.0-4.0) patient is currently holding 7mg daily since 07/26/17 patients last dose change was on 4/4/18 due to a high level of 6.5 patient has had no changes in medication except for holding coumadin and no change in diet Advised patient that they would be contacted regarding medication dose and when to follow up after information is reviewed by provider. After provider review please contact the patient with information and schedule follow up appointment with coumadin clinic. LIBORIO Observed: 07/28/2017 Status: COMPLETED Source: ARARAT 12:00 AM [facility] REPOSITORY Patient Outreach (FAMPWS) FLAVIA CASE ([id number]) 1950 F Date Time Provider Department 07/28/17 [facility] During your visit today, we recorded the following information about you: Himanshu Aquino RN 08/03/2017 4:38 PM Signed PRIMARY CARE COORDINATION FOLLOW-UP NOTE Provider Action/FYI Please note BS SOB with ambulating into taoism and up 6 steps. Occasional productive cough, expectorating clear mucous. Chest pain with exertion. States this has been the norm. Chest pain stops with rest Patient doesn't take NTG because it causes headache. States she gets a sl headache with Imdur LE edema at baseline. Edema down in AM and increases throughout day. Pt elevates LE and is watching salt. Patient identified by name and date of . YES Spoke to patient Summary: Pt doesn't write down dates or times of BS BS 202, 123, 127, 170, 126, 131, 168 States higher BS are PP (usually 1-3 hrs PP) metFORMIN ER (GLUCOPHAGE XR) 500 mg Take 2 tablets by mouth twice daily. glipiZIDE XL (GLUCOTROL XL) 10 mg Take 1 tablet by mouth once daily. Noted SOB with ambulating into taoism and up 6 steps. Notes occasional productive cough, expectorating clear mucous. Notes chest pain with exertion. States this has been the norm. Chest pain stops with rest Patient doesn't take NTG because it causes headache. States she gets a sl headache with Imdur LE edema at baseline. Edema down in AM and increases throughout day. Pt elevates LE and is watching salt. 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 Continue current regimen without changes. Work on improved diet and exercise as able. Wade Corado MD 08/03/2017 4:38 PM Signed Chest tightness with exercise is not normal. It appears that she had a stress test ordered last summer but never completed. I cannot tell why this was ordered at that time but my name is the ordering Dr. Does she remember why she didn't have it done? Is she willing to try some long acting nitroglycerin? MD Carlotta Luo MA 08/03/2017 4:38 PM Signed Left message for patient to call back. ANEL Miller MA 08/03/2017 4:38 PM Signed Patient stated that she didn't know she had the stress test ordered. She is willing to try the nitroglycerin. ANEL Miller MD 08/03/2017 4:38 PM Signed Increase Imdur to 90 milligrams daily and use sublingual nitroglycerin as needed for sudden shortness of breath or tightness. Report progress next week and we will decide whether she needs a stress test. MD Carlotta Luo MA 08/03/2017 4:38 PM Signed Patient notified and verbalized understanding. Please file med update. Carlotta Rodas MA Allergies As of Date: 07/28/2017 Noted Allergy Reaction ADVAIR DISKUS (FLUTICASONE-SALMET*05/16/2011 14 - Other: See Comments Comments: CHEST PAIN ASA (SALICYLATES) 05/10/2005 16 - Unknown Comments: patient taking coumadin - on low dose ASA for valve dysfunction CEPHALEXIN 02/21/2008 Comments: Stomach pains-pt. ended up in hospital EKG PADS [Other] 05/10/2005 Comments: adhesive LISINOPRIL 07/03/2014 3 - Cough NEXIUM (ESOMEPRAZOLE MAGNESIUM) 01/26/2016 14 - Other: See Comments Comments: Ineffective OMEPRAZOLE 01/26/2016 14 - Other: See Comments Comments: Ineffective TUDORZA PRESSAIR (ACLIDINIUM BROM*01/26/2016 8 - GI Upset VENTOLIN (ALBUTEROL) 01/26/2016 14 - Other: See Comments Comments: Ventolin MDI does not work, Pro Air works best Date Reviewed: 07/28/2017 Reviewed by: Brenda Darby RN - Fully Assessed Reason for Visit: Crown Buffer Chronic Care [4751] Order(s):isosorbide mononitrate ER (IMDUR) 30 mg 24 hr tabletTake 3 tablets by mouth once daily.Disp: 180 tabletRfl: 3 Prescriptions as of 07/28/2017 Sig: ISOSORBIDE MONONITRATE ER 30 * Take 3 tablets by mouth once * OXYBUTYNIN CHLORIDE ER 10 MG * take 1 tablet by mouth once d* ATORVASTATIN 20 MG TABLET take 1 tablet by mouth once d* TIZANIDINE 4 MG TABLET Take 1 tablet by mouth at bed* LORATADINE 10 MG TABLET Take 1 tablet by mouth once d* METFORMIN ER 500 MG TABLET,EX* Take 2 tablets by mouth twice* ATENOLOL 100 MG TABLET Take 1 tablet by mouth once d* LANSOPRAZOLE 30 MG CAPSULE,DE* Take 1 capsule by mouth twice* POLYETHYLENE GLYCOL 3350 17 G* Take 17 g by mouth once daily. GLIPIZIDE ER 10 MG TABLET, EX* Take 1 tablet by mouth once d* ASPIRIN 81 MG TABLET,DELAYED * take 1 tablet by mouth once d* LOSARTAN 100 MG TABLET take 1 tablet by mouth once d* FERROUS SULFATE 325 MG (65 MG* Take 1 tablet by mouth twice * DICLOFENAC 1 % TOPICAL GEL Apply 2 g to affected area tw* LEG BRACE 1 Each continuous. DX: S89.92* FUROSEMIDE 20 MG TABLET take 1 tablet by mouth once d* ALBUTEROL SULFATE HFA 90 MCG/* Inhale 2 Puffs as instructed * LEG BRACE 1 Each continuous. WARFARIN 6 MG TABLET Take 7 mg Daily NITROGLYCERIN 0.4 MG SUBLINGU* Dissolve 1 tablet under the t* NYSTATIN 100,000 UNIT/GRAM TO* Apply 1 application to affect* MECLIZINE 12.5 MG TABLET Take 1 tablet by mouth three * WARFARIN 1 MG TABLET take 1 tablet by mouth once d* TRAZODONE 50 MG TABLET Take 1 tablet by mouth daily * COMPOUNDED PRESCRIPTION NEBULIZER SUPPLIES, MEDICATIO* COMPOUNDED PRESCRIPTION HOME BP CUFF, DX: HTN LABILE * Problem List As Of Date 07/28/2017 Noted Resolved AORTOCORONARY BYPASS STATUS [Z95.1] More... OVERWEIGHT [E66.9] 05/08/2015 ASHD (arteriosclerotic heart disease) [I25.10] INVALID FOR* More... DIABETES MELLITUS TYPE II-UNCOMPL [E11.9] INVALID FOR*02/12/2014 More... HYPERLIPIDEMIA NEC/NOS [E78.5] INVALID FOR*07/24/2015 More... Hematuria [599.7] INVALID FOR*07/24/2015 More... History of mechanical aortic valve replacement *INVALID FOR* More... Abdominal pain, unspecified site [R10.9] INVALID FOR*05/08/2015 Acute gastritis without mention of hemorrhage [*INVALID FOR*01/26/2016 Esophageal reflux [K21.9] INVALID FOR* More... Headache(784.0) [R51] INVALID FOR*01/26/2016 Bronchitis Recurrent [J40] INVALID FOR*03/21/2017 Hallux valgus (acquired) [M20.10] INVALID FOR*07/24/2015 Pain in limb [M79.609] INVALID FOR*01/26/2016 Goiter [E04.9] INVALID FOR* S/P AVR [Z95.2] INVALID FOR*01/26/2016 Multinodular thyroid [E04.2] INVALID FOR* Emphysema of lung (HCC) [J43.9] More... Hyperlipemia [E78.5] INVALID FOR* DM type 2 (diabetes mellitus, type 2) (HCC) [E1*INVALID FOR*05/08/2015 Hematuria [R31.9] INVALID FOR*10/23/2015 Smoking [F17.200] INVALID FOR*10/23/2015 Chronic anticoagulation [Z79.01] INVALID FOR* OAB (overactive bladder) [N32.81] INVALID FOR* More... Frequency of urination [R35.0] INVALID FOR*01/26/2016 Hypertension goal BP (blood pressure) < 140/90 *INVALID FOR* More... Diabetes mellitus type 2, uncontrolled, without*INVALID FOR*03/21/2017 More... Nicole rash of groin [B37.89] INVALID FOR* More... Stress at home [F43.9] INVALID FOR* Insomnia [G47.00] INVALID FOR* Financial difficulties [Z59.8] INVALID FOR* Obesity, Class III, BMI >= 40 (morbid obesity) *INVALID FOR* Hemoptysis [R04.2] INVALID FOR* Priority: A More... 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 Eczema [L30.9] Diabetes mellitus (HCC) [E11.9] Prescriptions ordered this encounter Disp Refills Start End ISOSORBIDE MONONITRATE ER 30 MG TABL* 180 * 3 08/03/2017 Class: Med Update Route: ORAL Sig: Take 3 tablets by mouth once daily. Medications Discontinued During This Encounter isosorbide mononitrate ER (IMDUR) 30* 180 * 3 11/14/2016 08/03/2017 Sig: take 2 tablets by mouth once daily Disc: Reason for discontinue is not on file. Follow-up and Disposition History Recorded Encounter Status:Closed by CARLOTTA RODAS MA on 08/03/17 PROGRESS Observed: 07/26/2017 Status: COMPLETED Source: ARAR[place] 3:41 PM [facility] REPOSITORY HNO ID: [id number] Author: Briseida SamuelsRn) KOKO Hampton Service: (none) Author Type: Registered Nurse Type: Progress Notes Filed: 07/26/2017 3:42 PM Note Text: Patient notified of results and provider's instructions. Patient verbalizes understanding. Confirmed appt with pt for 07/28/17 Briseida Hampton RN PROGRESS Observed: 07/26/2017 Status: COMPLETED Source: ARAR[place] 2:22 PM [facility] [place] REPOSITORY HNO ID: [id number] Author: Twila Bah LPN Service: (none) Author Type: (none) Type: Progress Notes Filed: 07/26/2017 3:42 PM Note Text: LM for pt to return call to Triage nurse. PROGRESS Observed: 07/26/2017 Status: COMPLETED Source: [place] 1:27 PM [facility] [place] REPOSITORY HNO ID: [id number] Author: Keri Gamez Service: (none) Author Type: Physician Type: Progress Notes Filed: 07/26/2017 1:28 PM Note Text: INR supratherapeutic. Hold today and tomorrow's dose and have patient return on 07/28 for repeat INR. PROGRESS Observed: 07/26/2017 Status: COMPLETED Source: [place] 1:22 PM [facility] [place] REPOSITORY HNO ID: [id number] Author: Brenda Darby RN Service: (none) Author Type: (none) Type: Progress Notes Filed: 07/26/2017 1:25 PM Note Text: patient had inr completed at [facility] patients inr is 6.5 (patients inr range is 3.0-4.0) patient is currently taking 7mg daily patients last dose change was on 07/24/15 due to a low normal level of 3.21 (dose at that time was 6mg daily - formerly handled by cardio) patient has had no changes in medication and no missed doses and no change in diet FYI - patient has been instructed to hold coumadin until contacted and has been giving bleeding precautions Advised patient that they would be contacted regarding medication dose and when to follow up after information is reviewed by provider. After provider review please contact the patient with information and schedule follow up appointment with coumadin clinic. FYI - patient has been scheduled for an inr follow up for this Monday (07/28/17) PROGRESS Observed: 07/25/2017 Status: COMPLETED Source: AR[place] 3:28 PM [facility] REPOSITORY HNO ID: [id number] Author: Kenn Lizarraga Service: (none) Author Type: Physician Type: Progress Notes Filed: 07/27/2017 10:53 AM Note Text: Radiation Oncology - Follow Up Note PATIENT NAME: Flavia Case PATIENT DIAGNOSIS: 67 year old female with incidentally found PAWAN nodule, medically inoperable [cardiac comorbidity], peripheral, squamous cell CA, T1a[1.3cm, SUV 5] N0[PET] M0 s/p 34 Gy in 1 fx completed 11/18/16. INTERVAL HISTORY: Ms. Case returns to clinic in routine follow- up. CT chest was completed earlier today. She says that she is feeling well overall. She denies any new/concerning pulmonary symptoms (specifically, no new cough, hemoptysis, dyspnea, chest pain). She tries to remain active around the house, walking around regularly, cleaning the kitchen, working on the computer. She continues to provide sole custody to her 14 year old great grand-daughter so is active with her care as well. Ambulation continues to be limited by knee pain which requires her to use a walker at times. Otherwise, no specific complaints. ALLERGIES Allergen Reactions - Advair Diskus [Flut* Other: See Comments CHEST PAIN - Asa [Salicylates] Unknown patient taking coumadin - on low dose ASA for valve dysfunction - Cephalexin Stomach pains-pt. ended up in hospital - Ekg Pads [Other] adhesive - Lisinopril Cough - Nexium [Esomeprazol* Other: See Comments Ineffective - Omeprazole Other: See Comments Ineffective - Tudorza Pressair [A* GI Upset - Ventolin [Albuterol] Other: See Comments Ventolin MDI does not work, Pro Air works best MEDICATIONS: oxybutynin ER (DITROPAN XL) 10 mg 24 hr tablet take 1 tablet by mouth once daily atorvastatin (LIPITOR) 20 mg tablet take 1 tablet by mouth once daily tiZANidine (ZANAFLEX) 4 mg tablet Take 1 tablet by mouth at bedtime as needed (muscle spasms). loratadine (CLARITIN) 10 mg tablet Take 1 tablet by mouth once daily. metFORMIN ER (GLUCOPHAGE XR) 500 mg 24 hr tablet Take 2 tablets by mouth twice daily. atenolol (TENORMIN) 100 mg tablet Take 1 tablet by mouth once daily. lansoprazole (PREVACID) 30 mg capsule Take 1 capsule by mouth twice daily before meals (0600/1600). polyethylene glycol 3350 (MIRALAX) 17 gram/dose powder Take 17 g by mouth once daily. glipiZIDE XL (GLUCOTROL XL) 10 mg 24 hr tablet Take 1 tablet by mouth once daily. aspirin, enteric coated (ASPIRIN, ENTERIC COATED) 81 mg EC tablet take 1 tablet by mouth once daily losartan (COZAAR) 100 mg tablet take 1 tablet by mouth once daily ferrous sulfate 325 mg (65 mg iron) tablet Take 1 tablet by mouth twice daily with meals. diclofenac sodium (VOLTAREN) 1 % topical gel Apply 2 g to affected area twice daily as needed. Both heels Leg Brace (KNEE SUPPORT BRACE) misc 1 Each continuous. DX: S89.92XA isosorbide mononitrate ER (IMDUR) 30 mg 24 hr tablet take 2 tablets by mouth once daily furosemide (LASIX) 20 mg tablet take 1 tablet by mouth once daily albuterol HFA (PROAIR HFA) 90 mcg/actuation inhaler Inhale 2 Puffs as instructed every 4 hours as needed. Leg Brace (KNEE SUPPORT BRACE) misc 1 Each continuous. warfarin (COUMADIN) 6 mg tablet Take 7 mg Daily nitroglycerin sublingual (NITROSTAT) 0.4 mg SL tablet Dissolve 1 tablet under the tongue as needed. DISSOLVE ON TONGUE FOR CHEST PAIN. IF NO PAIN RELIEF, CALL 911 nystatin (MYCOSTATIN) cream Apply 1 application to affected area twice daily. Groin as needed meclizine (ANTIVERT) 12.5 mg tab Take 1 tablet by mouth three times daily as needed (dizziness). warfarin (COUMADIN) 1 mg tablet take 1 tablet by mouth once daily traZODone (DESYREL) 50 mg tablet Take 1 tablet by mouth daily at bedtime. COMPOUNDED PRESCRIPTION NEBULIZER SUPPLIES, MEDICATION CUP, TUBING FOR USE WITH NEBULIZER MACHINE DX J40.0 >Blood Pressure Cuff Home HOME BP CUFF, DX: HTN LABILE Dx: i10 REVIEW OF SYSTEMS: GENERAL: Negative for weight loss, fevers, chills, or night sweats. HEENT: Negative for sudden vision or hearing changes. NECK: Negative for masses in the neck. RESPIRATORY: Negative for cough or shortness of breath. CARDIAC: Negative for chest pain, palpitations. GI: Some diarrhea attributed to foods. Now improved. Negative for nausea, vomiting, or abdominal pain. MUSCULOSKELETAL: +knee pain as before NEURO: Slight dizziness attributed to medication changes. No focal weakness or numbness. SKIN: Negative for rashes or other skin changes. PHYSICAL EXAM: VS: BP 141/51 Pulse 65 Temp 36.7 ?C (98.1 ?F) Resp 16 Wt 101 kg (222 lb 11.2 oz) SpO2 96% BMI 39.45 kg/m2 KPS: 90 General Appearance: Alert and oriented female in wheelchair. No acute distress. HEENT: NCAT. Sclera anicteric. Neck: Normal ROM. No cervical LAD. Chest: No respiratory distress. Heart: Pulse regular. Abdomen: Nondistended, nontender. Neuro: Speech fluent. No focal deficits. Skin: No rashes noted Lymphatics: No palpable lymphadenopathy. TOXICITY ASSESSMENT CTC3: No ASSESSMENT/PLAN: Clinically doing well overall. The final read on today's CT chest is pending; nevertheless, images were reviewed and showed to the patient and her family. Findings demonstrate favorable response to the treated site with no evidence of new or metastatic disease. We will plan to see her again in 6 months for follow-up with repeat CT Chest. She has our contact information and was encouraged to call with any questions/concerns in the interim. Signed by: Christie Henao MD Resident Physician Radiation Oncology [facility] STAFF PHYSICAN NOTE OF PERSONAL INVOLVEMENT IN CARE I have personally participated in the cabral components of the case including a personal review of the pertinent imaging and agree with the above findings Kenn Lizarraga MD cc: Keri Gamez MD [address] [place] [address] CNOV Observed: 07/25/2017 Status: COMPLETED Source: [place] 3:15 PM [facility] REPOSITORY Office Visit (RADTMN) JESUS CASELY Monster ([id number]) 1950 F Date Time Provider Department 07/25/17 3:15 PM KENN LIZARRAGA During your visit today, we recorded the following information about you: Temperature Pulse Respiration Blood pressure 98.1 degrees 65/minute 16/minute 141/51 Weight 101 kg Kenn Lizarraga MD 07/27/2017 10:53 AM Signed Radiation Oncology - Follow Up Note PATIENT NAME: Flavia Case PATIENT DIAGNOSIS: 67 year old female with incidentally found PAWAN nodule, medically inoperable [cardiac comorbidity], peripheral, squamous cell CA, T1a[1.3cm, SUV 5] N0[PET] M0 s/p 34 Gy in 1 fx completed 11/18/16. INTERVAL HISTORY: Ms. Case returns to clinic in routine follow- up. CT chest was completed earlier today. She says that she is feeling well overall. She denies any new/concerning pulmonary symptoms (specifically, no new cough, hemoptysis, dyspnea, chest pain). She tries to remain active around the house, walking around regularly, cleaning the kitchen, working on the computer. She continues to provide sole custody to her 14 year old great grand-daughter so is active with her care as well. Ambulation continues to be limited by knee pain which requires her to use a walker at times. Otherwise, no specific complaints. ALLERGIES Allergen Reactions - Advair Diskus [Flut* Other: See Comments CHEST PAIN - Asa [Salicylates] Unknown patient taking coumadin - on low dose ASA for valve dysfunction - Cephalexin Stomach pains-pt. ended up in hospital - Ekg Pads [Other] adhesive - Lisinopril Cough - Nexium [Esomeprazol* Other: See Comments Ineffective - Omeprazole Other: See Comments Ineffective - Tudorza Pressair [A* GI Upset - Ventolin [Albuterol] Other: See Comments Ventolin MDI does not work, Pro Air works best MEDICATIONS: oxybutynin ER (DITROPAN XL) 10 mg 24 hr tablet take 1 tablet by mouth once daily atorvastatin (LIPITOR) 20 mg tablet take 1 tablet by mouth once daily tiZANidine (ZANAFLEX) 4 mg tablet Take 1 tablet by mouth at bedtime as needed (muscle spasms). loratadine (CLARITIN) 10 mg tablet Take 1 tablet by mouth once daily. metFORMIN ER (GLUCOPHAGE XR) 500 mg 24 hr tablet Take 2 tablets by mouth twice daily. atenolol (TENORMIN) 100 mg tablet Take 1 tablet by mouth once daily. lansoprazole (PREVACID) 30 mg capsule Take 1 capsule by mouth twice daily before meals (0600/1600). polyethylene glycol 3350 (MIRALAX) 17 gram/dose powder Take 17 g by mouth once daily. glipiZIDE XL (GLUCOTROL XL) 10 mg 24 hr tablet Take 1 tablet by mouth once daily. aspirin, enteric coated (ASPIRIN, ENTERIC COATED) 81 mg EC tablet take 1 tablet by mouth once daily losartan (COZAAR) 100 mg tablet take 1 tablet by mouth once daily ferrous sulfate 325 mg (65 mg iron) tablet Take 1 tablet by mouth twice daily with meals. diclofenac sodium (VOLTAREN) 1 % topical gel Apply 2 g to affected area twice daily as needed. Both heels Leg Brace (KNEE SUPPORT BRACE) misc 1 Each continuous. DX: S89.92XA isosorbide mononitrate ER (IMDUR) 30 mg 24 hr tablet take 2 tablets by mouth once daily furosemide (LASIX) 20 mg tablet take 1 tablet by mouth once daily albuterol HFA (PROAIR HFA) 90 mcg/actuation inhaler Inhale 2 Puffs as instructed every 4 hours as needed. Leg Brace (KNEE SUPPORT BRACE) misc 1 Each continuous. warfarin (COUMADIN) 6 mg tablet Take 7 mg Daily nitroglycerin sublingual (NITROSTAT) 0.4 mg SL tablet Dissolve 1 tablet under the tongue as needed. DISSOLVE ON TONGUE FOR CHEST PAIN. IF NO PAIN RELIEF, CALL 911 nystatin (MYCOSTATIN) cream Apply 1 application to affected area twice daily. Groin as needed meclizine (ANTIVERT) 12.5 mg tab Take 1 tablet by mouth three times daily as needed (dizziness). warfarin (COUMADIN) 1 mg tablet take 1 tablet by mouth once daily traZODone (DESYREL) 50 mg tablet Take 1 tablet by mouth daily at bedtime. COMPOUNDED PRESCRIPTION NEBULIZER SUPPLIES, MEDICATION CUP, TUBING FOR USE WITH NEBULIZER MACHINE DX J40.0 ANDgt;Blood Pressure Cuff Home HOME BP CUFF, DX: HTN LABILE Dx: i10 REVIEW OF SYSTEMS: GENERAL: Negative for weight loss, fevers, chills, or night sweats. HEENT: Negative for sudden vision or hearing changes. NECK: Negative for masses in the neck. RESPIRATORY: Negative for cough or shortness of breath. CARDIAC: Negative for chest pain, palpitations. GI: Some diarrhea attributed to foods. Now improved. Negative for nausea, vomiting, or abdominal pain. MUSCULOSKELETAL: +knee pain as before NEURO: Slight dizziness attributed to medication changes. No focal weakness or numbness. SKIN: Negative for rashes or other skin changes. PHYSICAL EXAM: VS: BP 141/51 Pulse 65 Temp 36.7 ?C (98.1 ?F) Resp 16 Wt 101 kg (222 lb 11.2 oz) SpO2 96% BMI 39.45 kg/m2 KPS: 90 General Appearance: Alert and oriented female in wheelchair. No acute distress. HEENT: NCAT. Sclera anicteric. Neck: Normal ROM. No cervical LAD. Chest: No respiratory distress. Heart: Pulse regular. Abdomen: Nondistended, nontender. Neuro: Speech fluent. No focal deficits. Skin: No rashes noted Lymphatics: No palpable lymphadenopathy. TOXICITY ASSESSMENT CTC3: No ASSESSMENT/PLAN: Clinically doing well overall. The final read on today's CT chest is pending; nevertheless, images were reviewed and showed to the patient and her family. Findings demonstrate favorable response to the treated site with no evidence of new or metastatic disease. We will plan to see her again in 6 months for follow-up with repeat CT Chest. She has our contact information and was encouraged to call with any questions/concerns in the interim. Signed by: Christie Henao MD Resident Physician Radiation Oncology [facility] STAFF PHYSICAN NOTE OF PERSONAL INVOLVEMENT IN CARE I have personally participated in the cabral components of the case including a personal review of the pertinent imaging and agree with the above findings Kenn Lizarraga MD cc: Keri Gamez MD [address] [place] [address] Referring Provider: KENN LIZARRAGA [[id number]] Allergies As of Date: 07/25/2017 Noted Allergy Reaction ADVAIR DISKUS (FLUTICASONE-SALMET*05/16/2011 14 - Other: See Comments Comments: CHEST PAIN ASA (SALICYLATES) 05/10/2005 16 - Unknown Comments: patient taking coumadin - on low dose ASA for valve dysfunction CEPHALEXIN 02/21/2008 Comments: Stomach pains-pt. 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 GLIPIZIDE ER 10 MG TABLET, EX* Take 1 tablet by mouth once d* ASPIRIN 81 MG TABLET,DELAYED * take 1 tablet by mouth once d* LOSARTAN 100 MG TABLET take 1 tablet by mouth once d* FERROUS SULFATE 325 MG (65 MG* Take 1 tablet by mouth twice * DICLOFENAC 1 % TOPICAL GEL Apply 2 g to affected area tw* LEG BRACE 1 Each continuous. DX: S89.92* ISOSORBIDE MONONITRATE ER 30 * take 2 tablets by mouth once * FUROSEMIDE 20 MG TABLET take 1 tablet by mouth once d* ALBUTEROL SULFATE HFA 90 MCG/* Inhale 2 Puffs as instructed * LEG BRACE 1 Each continuous. WARFARIN 6 MG TABLET Take 7 mg Daily NITROGLYCERIN 0.4 MG SUBLINGU* Dissolve 1 tablet under the t* NYSTATIN 100,000 UNIT/GRAM TO* Apply 1 application to affect* MECLIZINE 12.5 MG TABLET Take 1 tablet by mouth three * WARFARIN 1 MG TABLET take 1 tablet by mouth once d* TRAZODONE 50 MG TABLET Take 1 tablet by mouth daily * COMPOUNDED PRESCRIPTION NEBULIZER SUPPLIES, MEDICATIO* COMPOUNDED PRESCRIPTION HOME BP CUFF, DX: HTN LABILE * Medication notes this encounter WARFARIN 6 MG TABLET >> Cookie Cedillo LPN, LPN 07/25/2017 3:28 PM >> COOKIE CEDILLO Jul 25, 2017 3:28 PM Taking a total of 7mg Daily Problem List As Of Date 07/25/2017 Noted Resolved AORTOCORONARY BYPASS STATUS [Z95.1] More... OVERWEIGHT [E66.9] 05/08/2015 ASHD (arteriosclerotic heart disease) [I25.10] INVALID FOR* More... DIABETES MELLITUS TYPE II-UNCOMPL [E11.9] INVALID FOR*02/12/2014 More... HYPERLIPIDEMIA NEC/NOS [E78.5] INVALID FOR*07/24/2015 More... Hematuria [599.7] INVALID FOR*07/24/2015 More... History of mechanical aortic valve replacement *INVALID FOR* More... Abdominal pain, unspecified site [R10.9] INVALID FOR*05/08/2015 Acute gastritis without mention of hemorrhage [*INVALID FOR*01/26/2016 Esophageal reflux [K21.9] INVALID FOR* More... Headache(784.0) [R51] INVALID FOR*01/26/2016 Bronchitis Recurrent [J40] INVALID FOR*03/21/2017 Hallux valgus (acquired) [M20.10] INVALID FOR*07/24/2015 Pain in limb [M79.609] INVALID FOR*01/26/2016 Goiter [E04.9] INVALID FOR* S/P AVR [Z95.2] INVALID FOR*01/26/2016 Multinodular thyroid [E04.2] INVALID FOR* Emphysema of lung (HCC) [J43.9] More... Hyperlipemia [E78.5] INVALID FOR* DM type 2 (diabetes mellitus, type 2) (HCC) [E1*INVALID FOR*05/08/2015 Hematuria [R31.9] INVALID FOR*10/23/2015 Smoking [F17.200] INVALID FOR*10/23/2015 Chronic anticoagulation [Z79.01] INVALID FOR* OAB (overactive bladder) [N32.81] INVALID FOR* More... Frequency of urination [R35.0] INVALID FOR*01/26/2016 Hypertension goal BP (blood pressure) < 140/90 *INVALID FOR* More... Diabetes mellitus type 2, uncontrolled, without*INVALID FOR*03/21/2017 More... Nicole rash of groin [B37.89] INVALID FOR* More... Stress at home [F43.9] INVALID FOR* Insomnia [G47.00] INVALID FOR* Financial difficulties [Z59.8] INVALID FOR* Obesity, Class III, BMI >= 40 (morbid obesity) *INVALID FOR* Hemoptysis [R04.2] INVALID FOR* Priority: A More... 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 Eczema [L30.9] Diabetes mellitus (HCC) [E11.9] Medications Discontinued During This Encounter warfarin (COUMADIN) 6 mg tablet 90 t* 1 05/19/2017 07/25/2017 Cmt: Take with 1 mg tablet to make 7 mg dose Sig: TAKE 7MG ON MONDAY, MONDAY, AND MONDAY, AND take 1 tablet by mouth ALL OTHER DAYS Disc: Other Encounter Status:Closed by KENN LIZARRAGA MD on 07/27/17 CT CHEST WO IVCON Observed: 07/25/2017 Status: F Source: [place] 2:55 PM [facility] REPOSITORY * * *Final Report* * * DATE OF EXAM: Jul 25 2017 2:55PM [facility] 0541 - CT CHEST WO IVCON / PROCEDURE REASON: Malignant neoplasm of unspecified part of left bronchus or lung * * * * Physician Interpretation * * * * EXAMINATION: CHEST CT WITHOUT CONTRAST Indication: 66-year-old female with history of medically inoperable [cardiac comorbidity], with incidentally found PAWAN nodule, peripheral, squamous cell CA, T1a[1.3cm, ?SUV 5] ?N0[PET] M0 s/p 34 Gy in 1 fx completed 11/18/16. Technique: Spiral CT acquisition of the chest from the thoracic inlet to the upper abdomen without contrast. MQ: [id number]_4 CT Dose-Length Product: 502 mGy*cm CT Dose Reduction Employed: Automated exposure control (AEC) Comparison: Chest CT exams dated 01/24/2017 and 06/08/2016 RESULT: Limitations: None. Lines, tubes, and devices: None. Lung parenchyma and pleura: The previously seen treated left upper lobe nodule which previously measured 10 x 8 mm on the prior CT dated 01/24/2017 is not clearly visualized and is likely obscured by increasing ground-glass and consolidation in this region as seen on image 19. A more discrete nodular region in the subpleural region anteriorly, image 19 appears new and is favored to represent radiation pneumonitis. Small (less than 5 mm) pulmonary nodules are stable including a 3 mm left upper lobe nodule, image 39; a 3 mm subpleural left upper lobe nodule, image 70; a 3 mm subpleural right upper lobe nodule, image 33; and a 3 mm right upper lobe nodule, image 69, which are stable in size since 06/08/2016. Bronchial wall thickening is present bilaterally. Densely calcified right lower lobe nodule, image 112, is consistent with a granuloma, stable. No pleural effusion or pulmonary edema. No pneumothorax. Central airways are patent, no endobronchial lesion. Thoracic inlet, heart, and mediastinum: Tiny focus of calcification in the anterior left thyroid lobe, image 6, is unchanged.. No supraclavicular or axillary lymphadenopathy. Small subcentimeter in short axis mediastinal lymph nodes are stable in size. Calcified subcarinal lymph node is consistent with prior granulomatous disease. No definite hilar lymphadenopathy within limitations of this noncontrast exam. Moderate to severe atherosclerosis of the thoracic aorta and branch vessels. There is common origin of the right brachiocephalic and left common carotid arteries, a normal anatomic variant. Ascending thoracic aorta is mildly ectatic and measures up to 3.8 cm in diameter in the mid ascending segment. Main pulmonary artery is borderline enlarged, which can be seen with pulmonary hypertension. Patient is status post median sternotomy for CABG and aortic valve replacement. Mild mitral annulus calcification. Severe diffuse skull valley three-vessel coronary artery atherosclerotic calcifications. Overall heart size appears normal although individual chamber sizes are not well assessed on this noncontrast exam. No pericardial effusion. Esophagus is nondilated. Bones and soft tissues: Benign-appearing coarse calcifications are noted within both breasts, unchanged. The sternum is well approximated by the median sternotomy wires. No destructive lytic or blastic bone lesion. Mild endplate degenerative changes are present throughout the thoracic spine. Upper abdomen: Images of the upper abdomen demonstrate scattered calcifications throughout the liver and spleen, consistent with prior granulomatous disease. The liver appears low in attenuation, suggestive of steatosis. Subtle surface nodularity of the liver is unchanged, which may be secondary to cirrhosis. Dense splenic artery calcifications are noted. QB_N IMPRESSION: 1. The previously seen treated left upper lobe 10 x 8 mm pulmonary nodule is now obscured by increasing ground-glass and consolidative opacities. A more discrete nodular region as seen anteriorly in this region is also favored to represent radiation pneumonitis although continued CT surveillance is recommended. 2. Bilateral small (less than 5 mm) indeterminate pulmonary nodules are unchanged since 06/08/2016 and are probably benign given small size and stability for greater than a year although continued CT surveillance is recommended in this patient with history of malignancy. 3. No thoracic lymphadenopathy. 4. Postsurgical changes of median sternotomy for CABG and aortic valve replacement. 5. Hepatic steatosis. Subtle surface nodularity of the liver, may be related to cirrhosis and could be further evaluated with ultrasound. Tax Associate Attorney: PSCB Transcribe Date/Time: Jul 26 2017 11:36A Dictated by : MARIN SANDHU MD This examination was interpreted and the report reviewed and electronically signed by: MARIN SANDHU MD on Jul 26 2017 11:48AM EST [id number] PROGRESS Observed: 07/25/2017 Status: COMPLETED Source: [place] 2:44 PM [facility] REPOSIT[facility] HNO ID: [id number] Author: PETRONA Dailey (Ct) Service: Radiology Author Type: Clinical Biomedical Photographer Type: Progress Notes Filed: 07/25/2017 2:52 PM Note Text: Radiology Service Progress Note PATIENT NAME: Flavia Case DATE OF SERVICE: July 25, 2017 TIME: 2:44 PM PATIENT IDENTITY VERIFICATION COMPLETED USING TWO (2) METHODS: Patient confirmed name verbally and ID band matches.. PATIENT GENDER DATA: Female. status: : No status: NO. PATIENT RELEVANT IMPLANT DATA REVIEWED: Yes RADIOLOGY DEPARTMENT: CT; Exam(s) Completed: Chest PERIPHERAL IV DATA: Not applicable SIGNED BY: PETRONA Dailey July 25, 2017 2:44 PM PROGRESS Observed: 07/14/2017 Status: COMPLETED Source: [place] 3:50 PM [facility] REPOSIT[facility] HNO ID: [id number] Author: Keri Mo) Vera Service: (none) Author Type: Physician Type: Progress Notes Filed: 07/14/2017 3:51 PM Note Text: Reviewed. Agree with need to recheck CT chest as previously ordered. PROGRESS Observed: 07/14/2017 Status: COMPLETED Source: [place] 1:25 PM [facility] RE[facility]IT[facility] HNO ID: [id number] Author: Himanshu SamuelsRn) Sybil Service: (none) Author Type: Registered Nurse Type: Progress Notes Filed: 07/14/2017 1:35 PM Note Text: PRIMARY CARE COORDINATION FOLLOW-UP NOTE Provider Action/FYI Cancelled CT Chest and appt w/ Dr. Lizarraga, strongly encouraged to reschedule Hasn't been taken routine BS FBS ranging 150-210 1 hr PP around 280s- instructed to take twice daily and PCC will call back in 2 weeks Patient identified by name and date of . YES Spoke to patient Summary: Pt states she cancelled her CT Chest and appt with Dr. Lizarraga and hasn't rescheduled yet. Encourage pt strongly to reschedule both appts and gave phone numbers, verbalized understanding and agreement States depression and GERD are both good with current medications. Pt hasn't been taking her BS routinely. When she has taken them FBS ranges between 150-210 and 1 hr PP around 280's. Strongly encouraged to take BS twice daily and PCC will call back in two weeks for log, verbalized agreement. Blue Leather Sorter plan for next outreach: Will follow up 2 weeks Signature Himanshu Aquino RN July 14, [facility] Observed: 07/14/2017 Status: COMPLETED Source: [place] 12:00 AM [facility] REPOSITORY Patient Outreach (FAMPWS) FLAVIA CASE ([id number]) 1950 F Date Time Provider Department 07/14/17 HIMANSHU AQUINO (RN) LUCÍAWS During your visit today, we recorded the following information about you: Himanshu Aquino RN 07/14/2017 1:35 PM Signed PRIMARY CARE COORDINATION FOLLOW-UP NOTE Provider Action/FYI Cancelled CT Chest and appt w/ Dr. Lizarraga, strongly encouraged to reschedule Hasn't been taken routine BS FBS ranging 150-210 1 hr PP around 280ANDquot;s- instructed to take twice daily and PCC will call back in 2 weeks Patient identified by name and date of . YES Spoke to patient Summary: Pt states she cancelled her CT Chest and appt with Dr. Lizarraga and hasn't rescheduled yet. Encourage pt strongly to reschedule both appts and gave phone numbers, verbalized understanding and agreement States depression and GERD are both good with current medications. Pt hasn't been taking her BS routinely. When she has taken them FBS ranges between 150-210 and 1 hr PP around 280's. Strongly encouraged to take BS twice daily and PCC will call back in two weeks for log, verbalized agreement. Blue Leather Sorter plan for next outreach: Will follow up 2 weeks Signature Himanshu Aquino RN July 14, 2017 Keri Gamez MD 07/14/2017 3:51 PM Signed Reviewed. Agree with need to recheck CT chest as previously ordered. Allergies As of Date: 07/14/2017 Noted Allergy Reaction ADVAIR DISKUS (FLUTICASONE-SALMET*05/16/2011 14 - Other: See Comments Comments: CHEST PAIN ASA (SALICYLATES) 05/10/2005 16 - Unknown Comments: patient taking coumadin - on low dose ASA for valve dysfunction CEPHALEXIN 02/21/2008 Comments: Stomach pains-pt. ended up in hospital EKG PADS [Other] 05/10/2005 Comments: adhesive LISINOPRIL 07/03/2014 3 - Cough NEXIUM (ESOMEPRAZOLE MAGNESIUM) 01/26/2016 14 - Other: See Comments Comments: Ineffective OMEPRAZOLE 01/26/2016 14 - Other: See Comments Comments: Ineffective TUDORZA PRESSAIR (ACLIDINIUM BROM*01/26/2016 8 - GI Upset VENTOLIN (ALBUTEROL) 01/26/2016 14 - Other: See Comments Comments: Jany ONEALI does not work, Pro Air works best Date Reviewed: 06/28/2017 Reviewed by: Augustine Day Ma - Fully Assessed Reason for Visit: [facility] [2823] Prescriptions as of 07/14/2017 Sig: OXYBUTYNIN CHLORIDE ER 10 MG * take 1 tablet by mouth once d* ATORVASTATIN 20 MG TABLET take 1 tablet by mouth once d* TIZANIDINE 4 MG TABLET Take 1 tablet by mouth at bed* LORATADINE 10 MG TABLET Take 1 tablet by mouth once d* METFORMIN ER 500 MG TABLET,EX* Take 2 tablets by mouth twice* ATENOLOL 100 MG TABLET Take 1 tablet by mouth once d* LANSOPRAZOLE 30 MG CAPSULE,DE* Take 1 capsule by mouth twice* POLYETHYLENE GLYCOL 3350 17 G* Take 17 g by mouth once daily. WARFARIN 6 MG TABLET TAKE 7MG ON MONDAY, MONDAY* GLIPIZIDE ER 10 MG TABLET, EX* Take 1 tablet by mouth once d* ASPIRIN 81 MG TABLET,DELAYED * take 1 tablet by mouth once d* LOSARTAN 100 MG TABLET take 1 tablet by mouth once d* FERROUS SULFATE 325 MG (65 MG* Take 1 tablet by mouth twice * DICLOFENAC 1 % TOPICAL GEL Apply 2 g to affected area tw* LEG BRACE 1 Each continuous. DX: S89.92* ISOSORBIDE MONONITRATE ER 30 * take 2 tablets by mouth once * FUROSEMIDE 20 MG TABLET take 1 tablet by mouth once d* ALBUTEROL SULFATE HFA 90 MCG/* Inhale 2 Puffs as instructed * LEG BRACE 1 Each continuous. WARFARIN 6 MG TABLET Take 7 mg Daily NITROGLYCERIN 0.4 MG SUBLINGU* Dissolve 1 tablet under the t* NYSTATIN 100,000 UNIT/GRAM TO* Apply 1 application to affect* MECLIZINE 12.5 MG TABLET Take 1 tablet by mouth three * WARFARIN 1 MG TABLET take 1 tablet by mouth once d* TRAZODONE 50 MG TABLET Take 1 tablet by mouth daily * COMPOUNDED PRESCRIPTION NEBULIZER SUPPLIES, MEDICATIO* COMPOUNDED PRESCRIPTION HOME BP CUFF, DX: HTN LABILE * Problem List As Of Date 07/14/2017 Noted Resolved AORTOCORONARY BYPASS STATUS [Z95.1] More... OVERWEIGHT [E66.9] 05/08/2015 ASHD (arteriosclerotic heart disease) [I25.10] INVALID FOR* More... DIABETES MELLITUS TYPE II-UNCOMPL [E11.9] INVALID FOR*02/12/2014 More... HYPERLIPIDEMIA NEC/NOS [E78.5] INVALID FOR*07/24/2015 More... Hematuria [599.7] INVALID FOR*07/24/2015 More... History of mechanical aortic valve replacement *INVALID FOR* More... Abdominal pain, unspecified site [R10.9] INVALID FOR*05/08/2015 Acute gastritis without mention of hemorrhage [*INVALID FOR*01/26/2016 Esophageal reflux [K21.9] INVALID FOR* More... Headache(784.0) [R51] INVALID FOR*01/26/2016 Bronchitis Recurrent [J40] INVALID FOR*03/21/2017 Hallux valgus (acquired) [M20.10] INVALID FOR*07/24/2015 Pain in limb [M79.609] INVALID FOR*01/26/2016 Goiter [E04.9] INVALID FOR* S/P AVR [Z95.2] INVALID FOR*01/26/2016 Multinodular thyroid [E04.2] INVALID FOR* Emphysema of lung (HCC) [J43.9] More... Hyperlipemia [E78.5] INVALID FOR* DM type 2 (diabetes mellitus, type 2) (HCC) [E1*INVALID FOR*05/08/2015 Hematuria [R31.9] INVALID FOR*10/23/2015 Smoking [F17.200] INVALID FOR*10/23/2015 Chronic anticoagulation [Z79.01] INVALID FOR* OAB (overactive bladder) [N32.81] INVALID FOR* More... Frequency of urination [R35.0] INVALID FOR*01/26/2016 Hypertension goal BP (blood pressure) < 140/90 *INVALID FOR* More... Diabetes mellitus type 2, uncontrolled, without*INVALID FOR*03/21/2017 More... Nicole rash of groin [B37.89] INVALID FOR* More... Stress at home [F43.9] INVALID FOR* Insomnia [G47.00] INVALID FOR* Financial difficulties [Z59.8] INVALID FOR* Obesity, Class III, BMI >= 40 (morbid obesity) *INVALID FOR* Hemoptysis [R04.2] INVALID FOR* Priority: A More... 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 Eczema [L30.9] Diabetes mellitus (HCC) [E11.9] Encounter Status:Closed by HIMANSHU AQUINO on 07/14/17 CNNURSE Observed: 07/11/2017 Status: COMPLETED Source: [place] 11:30 AM [facility] REPOSITORY [facility] FLAVIA CASE ([id number]) 1950 F Date Time Provider Department 07/11/17 11:30 AM [place] NURSE JERAD During your visit today, we recorded the following information about you: Pulse Blood pressure 72/minute 130/58 Jane Dejesus LPN 07/11/2017 11:34 AM Signed Manual Readin/58 Pulse: 72 Reason for blood pressure check - Last BP elevated and Medication adjustment Patient is: Taking medication as prescribed Yes Took medication today Yes If no, date medication last taken N/A Experiencing side effects No BP was elevated at last appt 06/28/17. Atenolol was increased to 100mg daily. Tolerating medication change well. Denies any chest pain, unusual shortness of breath, or headaches. Does note some dizziness/lightheadedness with positional changes. Drinks decaf; none today. Past personal history of tobacco use; no current exposure. Alert and oriented. Pt has been identified by name and birthdate: Yes Allergies reviewed: Yes Latex allergy: no. Medication - prescribed and OTC reviewed and updated: Yes Do you need any prescription refills prior to your next visit: No Health Maintenance: Reviewed and up to date Patient advised to continue with current medications and would be contacted with any further instructions after review by PCP. Jane Dejesus LPN Referring Provider: SELF [200] Allergies As of Date: 07/11/2017 Noted Allergy Reaction ADVAIR DISKUS (FLUTICASONE-SALMET*05/16/2011 14 - Other: See Comments Comments: CHEST PAIN ASA (SALICYLATES) 05/10/2005 16 - Unknown Comments: patient taking coumadin - on low dose ASA for valve dysfunction CEPHALEXIN 02/21/2008 Comments: Stomach pains-pt. ended up in hospital EKG PADS [Other] 05/10/2005 Comments: adhesive LISINOPRIL 07/03/2014 3 - Cough NEXIUM (ESOMEPRAZOLE MAGNESIUM) 01/26/2016 14 - Other: See Comments Comments: Ineffective OMEPRAZOLE 01/26/2016 14 - Other: See Comments Comments: Ineffective TUDORZA PRESSAIR (ACLIDINIUM BROM*01/26/2016 8 - GI Upset VENTOLIN (ALBUTEROL) 01/26/2016 14 - Other: See Comments Comments: Ventolin MDI does not work, Pro Air works best Date Reviewed: 06/28/2017 Reviewed by: Augustine Day Ma - Fully Assessed Reason for Visit: Blood Pressure Check [195] Primary Visit Diagnosis:Hypertension goal BP (blood pressure) < 140/90 [I10] Prescriptions as of 07/11/2017 Sig: TIZANIDINE 4 MG TABLET Take 1 tablet by mouth at bed* LORATADINE 10 MG TABLET Take 1 tablet by mouth once d* METFORMIN ER 500 MG TABLET,EX* Take 2 tablets by mouth twice* ATENOLOL 100 MG TABLET Take 1 tablet by mouth once d* ATORVASTATIN 20 MG TABLET take 1 tablet by mouth once d* LANSOPRAZOLE 30 MG CAPSULE,DE* Take 1 capsule by mouth twice* POLYETHYLENE GLYCOL 3350 17 G* Take 17 g by mouth once daily. WARFARIN 6 MG TABLET TAKE 7MG ON MONDAY, MONDAY* GLIPIZIDE ER 10 MG TABLET, EX* Take 1 tablet by mouth once d* ASPIRIN 81 MG TABLET,DELAYED * take 1 tablet by mouth once d* LOSARTAN 100 MG TABLET take 1 tablet by mouth once d* OXYBUTYNIN CHLORIDE ER 10 MG * take 1 tablet by mouth once d* FERROUS SULFATE 325 MG (65 MG* Take 1 tablet by mouth twice * DICLOFENAC 1 % TOPICAL GEL Apply 2 g to affected area tw* LEG BRACE 1 Each continuous. DX: S89.92* ISOSORBIDE MONONITRATE ER 30 * take 2 tablets by mouth once * FUROSEMIDE 20 MG TABLET take 1 tablet by mouth once d* LEG BRACE 1 Each continuous. WARFARIN 6 MG TABLET Take 7 mg Daily NITROGLYCERIN 0.4 MG SUBLINGU* Dissolve 1 tablet under the t* NYSTATIN 100,000 UNIT/GRAM TO* Apply 1 application to affect* MECLIZINE 12.5 MG TABLET Take 1 tablet by mouth three * WARFARIN 1 MG TABLET take 1 tablet by mouth once d* TRAZODONE 50 MG TABLET Take 1 tablet by mouth daily * COMPOUNDED PRESCRIPTION NEBULIZER SUPPLIES, MEDICATIO* COMPOUNDED PRESCRIPTION HOME BP CUFF, DX: HTN LABILE * ALBUTEROL SULFATE HFA 90 MCG/* Inhale 2 Puffs as instructed * Problem List As Of Date 07/11/2017 Noted Resolved AORTOCORONARY BYPASS STATUS [Z95.1] More... OVERWEIGHT [E66.9] 05/08/2015 ASHD (arteriosclerotic heart disease) [I25.10] INVALID FOR* More... DIABETES MELLITUS TYPE II-UNCOMPL [E11.9] INVALID FOR*02/12/2014 More... HYPERLIPIDEMIA NEC/NOS [E78.5] INVALID FOR*07/24/2015 More... Hematuria [599.7] INVALID FOR*07/24/2015 More... History of mechanical aortic valve replacement *INVALID FOR* More... Abdominal pain, unspecified site [R10.9] INVALID FOR*05/08/2015 Acute gastritis without mention of hemorrhage [*INVALID FOR*01/26/2016 Esophageal reflux [K21.9] INVALID FOR* More... Headache(784.0) [R51] INVALID FOR*01/26/2016 Bronchitis Recurrent [J40] INVALID FOR*03/21/2017 Hallux valgus (acquired) [M20.10] INVALID FOR*07/24/2015 Pain in limb [M79.609] INVALID FOR*01/26/2016 Goiter [E04.9] INVALID FOR* S/P AVR [Z95.2] INVALID FOR*01/26/2016 Multinodular thyroid [E04.2] INVALID FOR* Emphysema of lung (HCC) [J43.9] More... Hyperlipemia [E78.5] INVALID FOR* DM type 2 (diabetes mellitus, type 2) (HCC) [E1*INVALID FOR*05/08/2015 Hematuria [R31.9] INVALID FOR*10/23/2015 Smoking [F17.200] INVALID FOR*10/23/2015 Chronic anticoagulation [Z79.01] INVALID FOR* OAB (overactive bladder) [N32.81] INVALID FOR* More... Frequency of urination [R35.0] INVALID FOR*01/26/2016 Hypertension goal BP (blood pressure) < 140/90 *INVALID FOR* More... Diabetes mellitus type 2, uncontrolled, without*INVALID FOR*03/21/2017 More... Nicole rash of groin [B37.89] INVALID FOR* More... Stress at home [F43.9] INVALID FOR* Insomnia [G47.00] INVALID FOR* Financial difficulties [Z59.8] INVALID FOR* Obesity, Class III, BMI >= 40 (morbid obesity) *INVALID FOR* Hemoptysis [R04.2] INVALID FOR* Priority: A More... 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 Eczema [L30.9] Diabetes mellitus (HCC) [E11.9] Encounter Status:Closed by JANE DEJESUS LPN on 07/11/17 PROGRESS Observed: 07/11/2017 Status: COMPLETED Source: [place] 11:29 AM [facility] [place] RE[facility] HNO ID: [id number] Author: Jane Dejesus LPN Service: (none) Author Type: (none) Type: Progress Notes Filed: 07/11/2017 11:34 AM Note Text: Manual Readin/58 Pulse: 72 Reason for blood pressure check - Last BP elevated and Medication adjustment Patient is: Taking medication as prescribed Yes Took medication today Yes If no, date medication last taken N/A Experiencing side effects No BP was elevated at last appt 06/28/17. Atenolol was increased to 100mg daily. Tolerating medication change well. Denies any chest pain, unusual shortness of breath, or headaches. Does note some dizziness/lightheadedness with positional changes. Drinks decaf; none today. Past personal history of tobacco use; no current exposure. Alert and oriented. Pt has been identified by name and birthdate: Yes Allergies reviewed: Yes Latex allergy: no. Medication - prescribed and OTC reviewed and updated: Yes Do you need any prescription refills prior to your next visit: No Health Maintenance: Reviewed and up to date Patient advised to continue with current medications and would be contacted with any further instructions after review by PCP. Jane Dejesus LPN PROGRESS Observed: 06/28/2017 Status: COMPLETED Source: [place] 3:12 PM [facility] [place] REPOSITORY HNO ID: [id number] Author: Keri Gamez Service: (none) Author Type: Physician Type: Progress Notes Filed: 06/28/2017 3:12 PM Note Text: INR therapeutic. Continue current coumadin dosage and follow up in 4 weeks. PROGRESS Observed: 06/28/2017 Status: COMPLETED Source: [place] 2:51 PM [facility] [place] REPOSITORY HNO ID: [id number] Author: Brenda Darby RN Service: (none) Author Type: (none) Type: Progress Notes Filed: 06/28/2017 2:53 PM Note Text: patient had inr completed at [facility] patients inr is 3.7 (patients inr range is 3.0-4.0) patient is currently taking 7mg daily patients last dose change was on 06/05/15 due to a low level of 2.6 (dose at that time was 6mg daily) patient has had no changes in medication and no missed doses and no change in diet Advised patient to continue on the same dose(s) and that they would only be contacted regarding dosage and follow up instructions after review with provider, if a change is needed. Written instructions given and patient verbalized understanding. Presently scheduled in 4 weeks (07/26/17) for follow up INR. PROGRESS Observed: 06/28/2017 Status: COMPLETED Source: [place] 2:48 PM [facility] HNO ID: [id number] Author: Keri Mo) Vera Service: (none) Author Type: Physician Type: Progress Notes Filed: 06/28/2017 7:44 PM Note Text: Chief Complaint Patient presents with: F/U Diabetes 3 Month HPI Flavia Case is a 67 year old female who presents here today for Above Complaints.. DIABETES MELLITUS: Ms. Case was last seen 3 months ago. Since our last visit she denies numbness, tingling or pain in extremities, new or unusual visual symptoms and low sugar/hypoglycemic reactions. Admits to to polyuria, polydipsia. Follows a diabetic diet generally not very much. She is compliant with medication(s) and is tolerating med(s) without any side effects. She reports checking her glucose on a once a day schedule with sugars in the <200 range. Patient's last HgA1C was Hemoglobin A1C (%) Date Value 06/16/2017 8.5 03/15/2017 7.2 ) Last Ophthalmology exam was within the past 12 months Last Podiatry exam was within the past 12 months Has not been taking Zoloft for anxiety symptoms as she was concerned about side effect. Has not had anxiety symptoms recently and does not feel like she needs medication at this time. Following up with Dr. Corado regarding ASHD history and AVR. Needed to work on BP control at last OV. Will increase atenolol as BP still elevated today. Taking coumadin as prescribed for history of AVR. INR 3.7 today. Past medical history, appointments, medications, allergies reviewed. Previous Medical History PAST MEDICAL HISTORY Diagnosis Date - Acute gastritis without mention of hemorrhage - Acute peptic ulcer - Anxiety - ASHD (arteriosclerotic heart disease) Dr. Corado - Benign neoplasm of colon - Carpal tunnel syndrome - COPD (chronic obstructive pulmonary disease) (HCC) - Corns and callosities 02/11/2010 - Dermatophytosis of nail 02/11/2010 - Diabetes mellitus (HCC) - Diaphragmatic hernia without mention of obstruction or gangrene - Eczema - External hemorrhoids without mention of complication - Hirsutism 10/21/2010 - Hyperlipidemia - Hypertension - Internal hemorrhoids without mention of complication - Lung cancer ([facility]) 09/[address] Lizarraga. Stage I squamous cell s/p radiation - Multinodular thyroid benign - Obesity, unspecified - Overactive bladder Dr. Recio - Postsurgical aortocoronary bypass status triple bypass, aortic valve replacement - Pulmonary hypertension - S/P AVR - Seasonal allergies - Squamous cell carcinoma neck, back, leg, left lung - Toe deformity 02/11/2010 Previous Surgical History PAST SURGICAL HISTORY Procedure Laterality Date - CABG, ARTERY-VEIN, THREE 1996 CABG, three grafts, replace heart valve - DELIVERY ONLY x3 - COLONOSCOP W/ OR W/O [facility] SPEC 01/02/2001, 09/21/2005 Colonoscopy - COLONOSCOP W/ OR W/O [facility] SPEC 04/26/06 - EGD W/O OR W/BRUSH/WASH 04/26/06 - EGD W/O OR W/BRUSH/WASH 01/12/1984 EGD with biopsy of antral ulcer - LAPAROSCOPIC CHOLEYCYSTECTOMY 09-06-12 - PAST SURGICAL HISTORY OF skin cancer from knee / benign spot from back - PAST SURGICAL HISTORY OF cataract removal bilateral - TOTAL ABDOM HYSTERECTOMY 1978 for endometriosis, ovaries spared Family History FAMILY HISTORY Problem Relation Age of Onset - Heart Father - Heart Mother - Thyroid Mother Goiter - Diabetes Maternal Grandfather - stomach cancer [OTHER] Sister Adenocarcinoma - Heart Daughter - Colon Cancer Sister 52 Patient Allergies ALLERGIES Allergen Reactions - Advair Diskus [Flut* Other: See Comments CHEST PAIN - Asa [Salicylates] Unknown patient taking coumadin - on low dose ASA for valve dysfunction - Cephalexin Stomach pains-pt. ended up in hospital - Ekg Pads [Other] adhesive - Lisinopril Cough - Nexium [Esomeprazol* Other: See Comments Ineffective - Omeprazole Other: See Comments Ineffective - Tudorza Pressair [A* GI Upset - Ventolin [Albuterol] Other: See Comments Ventolin MDI does not work, Pro Air works best Current Medications Current Outpatient Prescriptions on File Prior to Visit: atorvastatin (LIPITOR) 20 mg tablet take 1 tablet by mouth once daily lansoprazole (PREVACID) 30 mg capsule Take 1 capsule by mouth twice daily before meals (0600/1600). polyethylene glycol 3350 (MIRALAX) 17 gram/dose powder Take 17 g by mouth once daily. sertraline (ZOLOFT) 100 mg tablet Take 2 tablets by mouth once daily. warfarin (COUMADIN) 6 mg tablet TAKE 7MG ON MONDAY, MONDAY, AND MONDAY, AND take 1 tablet by mouth ALL OTHER DAYS glipiZIDE XL (GLUCOTROL XL) 10 mg 24 hr tablet Take 1 tablet by mouth once daily. atenolol (TENORMIN) 50 mg tablet Take 1 tablet by mouth once daily. aspirin, enteric coated (ASPIRIN, ENTERIC COATED) 81 mg EC tablet take 1 tablet by mouth once daily losartan (COZAAR) 100 mg tablet take 1 tablet by mouth once daily oxybutynin ER (DITROPAN XL) 10 mg 24 hr tablet take 1 tablet by mouth once daily metFORMIN ER (GLUCOPHAGE XR) 500 mg 24 hr tablet take 1 tablet by mouth every morning and take 2 tablets every evening ferrous sulfate 325 mg (65 mg iron) tablet Take 1 tablet by mouth twice daily with meals. diclofenac sodium (VOLTAREN) 1 % topical gel Apply 2 g to affected area twice daily as needed. Both heels cyclobenzaprine (FLEXERIL) 10 mg tablet Take 1 tablet by mouth at bedtime as needed for Muscle Spasm. ALPRAZolam (XANAX) 0.25 mg tablet Take 1 tablet by mouth twice daily as needed. triamcinolone acetonide (KENALOG) 0.1 % cream Apply 1 application to affected area once daily as needed. Apply sparingly to eczema on legs. atenolol (TENORMIN) 50 mg tablet Take 50 mg by mouth once daily. POLYETHYLENE GLYCOL 3350 ORAL Take 17 g by mouth once daily. Leg Brace (KNEE SUPPORT BRACE) misc 1 Each continuous. DX: S89.92XA isosorbide mononitrate ER (IMDUR) 30 mg 24 hr tablet take 2 tablets by mouth once daily furosemide (LASIX) 20 mg tablet take 1 tablet by mouth once daily albuterol HFA (PROAIR HFA) 90 mcg/actuation inhaler Inhale 2 Puffs as instructed every 4 hours as needed. Leg Brace (KNEE SUPPORT BRACE) misc 1 Each continuous. warfarin (COUMADIN) 6 mg tablet Take 7 mg Daily nitroglycerin sublingual (NITROSTAT) 0.4 mg SL tablet Dissolve 1 tablet under the tongue as needed. DISSOLVE ON TONGUE FOR CHEST PAIN. IF NO PAIN RELIEF, CALL 911 nystatin (MYCOSTATIN) cream Apply 1 application to affected area twice daily. Groin as needed meclizine (ANTIVERT) 12.5 mg tab Take 1 tablet by mouth three times daily as needed (dizziness). polyethylene glycol 3350 (MIRALAX, GLYCOLAX) 17 gram/dose powder Take 17g dissolved into 8oz of liquid one time daily as needed warfarin (COUMADIN) 1 mg tablet take 1 tablet by mouth once daily COMPOUNDED PRESCRIPTION [facility] loratadine (CLARITIN) 10 mg tablet take 1 tablet by mouth once daily traZODone (DESYREL) 50 mg tablet Take 1 tablet by mouth daily at bedtime. COMPOUNDED PRESCRIPTION NEBULIZER SUPPLIES, MEDICATION CUP, TUBING FOR USE WITH NEBULIZER MACHINE DX J40.0 >Blood Pressure Cuff Home HOME BP CUFF, DX: HTN LABILE Dx: i10 No current facility-administered medications on file prior to visit. 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 Ex-spouse of 38 years also a smoker. Alcohol use: No Drug use: No Sexual activity: No Comment: Social History Narrative Born [place], moved [facility] 1958 age 9. 4 years in current home[place]. Dry basement. Electric baseboard heat. No central A/C, uses window units. No pets in home currently. Bird and dog not replaced at deaths 13 years ago. SSI and medical card. Watches 2 serena, 01/07 in 2012. Review of Symptoms REVIEW OF SYSTEMS GENERAL: No weight loss, malaise or fevers RESPIRATORY: Negative for cough, hemoptysis, wheezing, COPD, dyspnea or shortness of breath CARDIOVASCULAR: Denies palpitations. Admits to chronic angina GI: No nausea, vomiting, or diarrhea SKIN: Negative for lesions, rash, and itching EXAM: BP 154/74 Pulse 84 Temp 36.5 ?C (97.7 ?F) (Left Tympanic) Resp 16 Wt 93.4 kg (206 lb) SpO2 96% BMI 36.49 kg/m2 General Appearance: Well appearing, alert, in no acute distress, well-hydrated, well nourished.. Skin: Skin color, texture, turgor normal, no suspicious rashes or lesions. Lungs: Lungs clear to auscultation. No wheezing, rhonchi, rales. Heart: RRR without murmur, gallop, or rubs. No ectopy. Mechanical heart valve appreciated. Abdomen: Normal abdominal exam, Abdomen soft, non-tender. Bowel sounds normal. No masses, organomegaly. Extremities: No deformities, edema, skin discoloration, clubbing or cyanosis. Good capillary refill. . Feet: Shoes and socks removed and No deformities, ulcers, calluses Health Maintenance List HBA1C due on 12/14/2017 URINE ALBUMIN CREATININE RATIO due on 12/27/2017 FECAL OCCULT BLOOD due on 01/09/2018 DILATED RETINAL EXAM due on 03/10/2018 DIABETIC FOOT EXAM due on 06/07/2018 MAMMOGRAM due on 06/16/2018 LDL due on 06/16/2018 TETANUS due on 03/08/2021 BONE DENSITY Completed ADULT PREVNAR-13 Completed INFLUENZA Completed HEPATITIS C SCREENING Completed PNEUMOVAX AGE 65 AND OVER WITH 5YR LOOKBACK Completed Data reviewed Component Latest Ref Rng AND Units 03/15/2017 06/16/2017 WBC 3.70 - 11.00 k/uL 9.37 RBC 3.90 - 5.20 m/uL 5.27 (H) Hemoglobin 11.5 - 15.5 g/dL 12.5 Hematocrit 36.0 - 46.0 % 41.2 MCV 80.0 - 100.0 fL 78.2 (L) MCH 26.0 - 34.0 pG 23.7 (L) MCHC 30.5 - 36.0 g/dL 30.3 (L) RDW-CV 11.5 - 15.0 % 17.3 (H) Platelet Count 150 - 400 k/uL 224 MPV 9.0 - 12.7 fL 11.6 Neut% % 77.2 Abs Neut (ANC) 1.45 - 7.50 k/uL 7.23 Lymph% % 12.9 Abs Lymph 1.00 - 4.00 k/uL 1.21 [place]% % 6.8 Abs [place] <0.87 k/uL 0.64 Eosin% % 2.0 Abs Eosin <0.46 k/uL 0.19 Baso% % 1.1 Abs Baso <0.11 k/uL 0.10 Nucleated Reds 0 /100 WBC 0.0 Absolute nRBC <0.01 k/uL <0.01 Diff Type Auto Diff Protein, Total 6.3 - 8.0 g/dL 7.1 Albumin 3.9 - 4.9 g/dL 3.9 Calcium 8.5 - 10.2 mg/dL 9.3 Bilirubin, Total 0.2 - 1.3 mg/dL 0.2 Alkaline Phosphatase 32 - 117 U/L 101 AST 13 - 35 U/L 22 Glucose 74 - 99 mg/dL 212 (H) BUN 7 - 21 mg/dL 14 Creatinine 0.58 - 0.96 mg/dL 0.64 Sodium 136 - 144 mmol/L 135 (L) Potassium 3.7 - 5.1 mmol/L 4.8 Chloride 97 - 105 mmol/L 101 CO2 22 - 30 mmol/L 22 Anion Gap 9 - 18 mmol/L 12 ALT 7 - 38 U/L 31 eGFR- >60 eGFR-All Other Races . >60 Cholesterol, Total <200 mg/dL 143 Triglyceride <150 mg/dL 222 (H) HDL Cholesterol >39 mg/dL 27 (L) LDL Cholesterol <100 mg/dL 72 Non HDL Cholesterol <130 mg/dL 116 Fasting Time hrs 14 VLDL Cholesterol <30 mg/dL 44 (H) TC:HDL Ratio <5.10 5.30 (H) LDL:HDL Ratio <2.54 2.67 (H) Hemoglobin A1C 4.3 - 5.6 % 7.2 (H) 8.5 (H) Estimated Average Glucose mg/dL 160 197 ASSESSMENT/PLAN: 1. Type 2 diabetes mellitus without complication, without long-term current use of insulin (HCC) - ICD9: 250.00, ICD10: E11.9 (primary diagnosis) worsening control Poor adherence to plan of care. - Increase metformin (Glucophage) - Blood glucose monitoring on a twice a day schedule - Encouraged regular aerobic exercise and weight loss. Discussed diabetic diet and good choices. - Daily Asprin therapy recommended - Follow up in 3 months, sooner should any other issues arise. - HGB A1C 2. ASHD (arteriosclerotic heart disease) - ICD9: 414.00, ICD10: I25.10 Continue recommendations per cardiology. 3. Postsurgical aortocoronary bypass status - ICD9: V45.81, ICD10: Z95.1 Continue recommendations per cardiology. 4. Gastroesophageal reflux disease, esophagitis presence not specified - ICD9: 530.81, ICD10: K21.9 Good control Prevacid 30 mg BID 5. Other hyperlipidemia - ICD9: 272.4, ICD10: E78.4 - good control - Continue current medication. - Encouraged following a low fat, low cholesterol diet. - Discussed the benefits of regular aerobic exercise and weight loss. 6. Hypertension goal BP (blood pressure) < 140/90 - ICD9: 401.9, ICD10: I10 - poor control - Increase atenolol (Tenormin) - Encouraged dietary sodium restriction/DASH diet - Recommended regular aerobic exercise. - Reviewed risks of HTN and principles of treatment - Goal of BP <140/90 7. Chronic anticoagulation - ICD9: V58.61, ICD10: Z79.01 Continue current regimen of coumadin. INR therapeutic today. Keri Gamez MD CNOV Observed: 06/28/2017 Status: COMPLETED Source: [place] 2:40 PM [facility] REPOSITORY Office [facility] ([facility] [facility] FLAVIA CASE ([id number]) 1950 F Date Time Provider Department 06/28/17 2:40 PM KERI GAMEZ) LUCÍAWS During your visit today, we recorded the following information about you: Temperature Pulse Respiration Blood pressure 97.7 degrees 84/minute 16/minute 154/74 Weight 93.4 kg Keri Gamez MD 06/28/2017 7:44 PM Signed Chief Complaint Patient presents with: F/U Diabetes 3 Month HPI Flavia Case is a 67 year old female who presents here today for Above Complaints.. DIABETES MELLITUS: Ms. Case was last seen 3 months ago. Since our last visit she denies numbness, tingling or pain in extremities, new or unusual visual symptoms and low sugar/hypoglycemic reactions. Admits to to polyuria, polydipsia. Follows a diabetic diet generally not very much. She is compliant with medication(s) and is tolerating med(s) without any side effects. She reports checking her glucose on a once a day schedule with sugars in the ANDlt;200 range. Patient's last HgA1C was Hemoglobin A1C (%) Date Value 06/16/2017 8.5 03/15/2017 7.2 ) Last Ophthalmology exam was within the past 12 months Last Podiatry exam was within the past 12 months Has not been taking Zoloft for anxiety symptoms as she was concerned about side effect. Has not had anxiety symptoms recently and does not feel like she needs medication at this time. Following up with Dr. Corado regarding ASHD history and AVR. Needed to work on BP control at last OV. Will increase atenolol as BP still elevated today. Taking coumadin as prescribed for history of AVR. INR 3.7 today. Past medical history, appointments, medications, allergies reviewed. Previous Medical History PAST MEDICAL HISTORY Diagnosis Date - Acute gastritis without mention of hemorrhage - Acute peptic ulcer - Anxiety - ASHD (arteriosclerotic heart disease) Dr. Corado - Benign neoplasm of colon - Carpal tunnel syndrome - COPD (chronic obstructive pulmonary disease) (HCC) - Corns and callosities 02/11/2010 - Dermatophytosis of nail 02/11/2010 - Diabetes mellitus (HCC) - Diaphragmatic hernia without mention of obstruction or gangrene - Eczema - External hemorrhoids without mention of complication - Hirsutism 10/21/2010 - Hyperlipidemia - Hypertension - Internal hemorrhoids without mention of complication - Lung cancer (HCC) 09/[address] Lizarraga. Stage I squamous cell s/p radiation - Multinodular thyroid benign - Obesity, unspecified - Overactive bladder Dr. Recio - Postsurgical aortocoronary bypass status triple bypass, aortic valve replacement - Pulmonary hypertension - S/P AVR - Seasonal allergies - Squamous cell carcinoma neck, back, leg, left lung - Toe deformity 02/11/2010 Previous Surgical History PAST SURGICAL HISTORY Procedure Laterality Date - CABG, ARTERY-VEIN, THREE 1996 CABG, three grafts, replace heart valve - DELIVERY ONLY x3 - COLONOSCOP W/ OR W/O [facility] SPE[facility] 01/02/2001, 09/21/2005 Colonoscopy - COLONOSCOP W/ OR W/O [facility] SPEC 04/26/06 - EGD W/O OR W/BRUSH/WASH 04/26/06 - EGD W/O OR W/BRUSH/WASH 01/12/1984 EGD with biopsy of antral ulcer - LAPAROSCOPIC CHOLEYCYSTECTOMY 09-06-12 - PAST SURGICAL HISTORY OF skin cancer from knee / benign spot from back - PAST SURGICAL HISTORY OF cataract removal bilateral - TOTAL ABDOM HYSTERECTOMY 1978 for endometriosis, ovaries spared Family History FAMILY HISTORY Problem Relation Age of Onset - Heart Father - Heart Mother - Thyroid Mother Goiter - Diabetes Maternal Grandfather - stomach cancer [OTHER] Sister Adenocarcinoma - Heart Daughter - Colon Cancer Sister 52 Patient Allergies ALLERGIES Allergen Reactions - Advair Diskus [Flut* Other: See Comments CHEST PAIN - Asa [Salicylates] Unknown patient taking coumadin - on low dose ASA for valve dysfunction - Cephalexin Stomach pains-pt. ended up in hospital - Ekg Pads [Other] adhesive - Lisinopril Cough - Nexium [Esomeprazol* Other: See Comments Ineffective - Omeprazole Other: See Comments Ineffective - Tudorza Pressair [A* GI Upset - Ventolin [Albuterol] Other: See Comments Ventolin MDI does not work, Pro Air works best Current Medications Current Outpatient Prescriptions on File Prior to Visit: atorvastatin (LIPITOR) 20 mg tablet take 1 tablet by mouth once daily lansoprazole (PREVACID) 30 mg capsule Take 1 capsule by mouth twice daily before meals (0600/1600). polyethylene glycol 3350 (MIRALAX) 17 gram/dose powder Take 17 g by mouth once daily. sertraline (ZOLOFT) 100 mg tablet Take 2 tablets by mouth once daily. warfarin (COUMADIN) 6 mg tablet TAKE 7MG ON MONDAY, MONDAY, AND MONDAY, AND take 1 tablet by mouth ALL OTHER DAYS glipiZIDE XL (GLUCOTROL XL) 10 mg 24 hr tablet Take 1 tablet by mouth once daily. atenolol (TENORMIN) 50 mg tablet Take 1 tablet by mouth once daily. aspirin, enteric coated (ASPIRIN, ENTERIC COATED) 81 mg EC tablet take 1 tablet by mouth once daily losartan (COZAAR) 100 mg tablet take 1 tablet by mouth once daily oxybutynin ER (DITROPAN XL) 10 mg 24 hr tablet take 1 tablet by mouth once daily metFORMIN ER (GLUCOPHAGE XR) 500 mg 24 hr tablet take 1 tablet by mouth every morning and take 2 tablets every evening ferrous sulfate 325 mg (65 mg iron) tablet Take 1 tablet by mouth twice daily with meals. diclofenac sodium (VOLTAREN) 1 % topical gel Apply 2 g to affected area twice daily as needed. Both heels cyclobenzaprine (FLEXERIL) 10 mg tablet Take 1 tablet by mouth at bedtime as needed for Muscle Spasm. ALPRAZolam (XANAX) 0.25 mg tablet Take 1 tablet by mouth twice daily as needed. triamcinolone acetonide (KENALOG) 0.1 % cream Apply 1 application to affected area once daily as needed. Apply sparingly to eczema on legs. atenolol (TENORMIN) 50 mg tablet Take 50 mg by mouth once daily. POLYETHYLENE GLYCOL 3350 ORAL Take 17 g by mouth once daily. Leg Brace (KNEE SUPPORT BRACE) misc 1 Each continuous. DX: S89.92XA isosorbide mononitrate ER (IMDUR) 30 mg 24 hr tablet take 2 tablets by mouth once daily furosemide (LASIX) 20 mg tablet take 1 tablet by mouth once daily albuterol HFA (PROAIR HFA) 90 mcg/actuation inhaler Inhale 2 Puffs as instructed every 4 hours as needed. Leg Brace (KNEE SUPPORT BRACE) misc 1 Each continuous. warfarin (COUMADIN) 6 mg tablet Take 7 mg Daily nitroglycerin sublingual (NITROSTAT) 0.4 mg SL tablet Dissolve 1 tablet under the tongue as needed. DISSOLVE ON TONGUE FOR CHEST PAIN. IF NO PAIN RELIEF, CALL 911 nystatin (MYCOSTATIN) cream Apply 1 application to affected area twice daily. Groin as needed meclizine (ANTIVERT) 12.5 mg tab Take 1 tablet by mouth three times daily as needed (dizziness). polyethylene glycol 3350 (MIRALAX, GLYCOLAX) 17 gram/dose powder Take 17g dissolved into 8oz of liquid one time daily as needed warfarin (COUMADIN) 1 mg tablet take 1 tablet by mouth once daily COMPOUNDED PRESCRIPTION Aqu[facility]rapy at [facility] loratadine (CLARITIN) 10 mg tablet take 1 tablet by mouth once daily traZODone (DESYREL) 50 mg tablet Take 1 tablet by mouth daily at bedtime. COMPOUNDED PRESCRIPTION NEBULIZER SUPPLIES, MEDICATION CUP, TUBING FOR USE WITH NEBULIZER MACHINE DX J40.0 ANDgt;Blood Pressure Cuff Home HOME BP CUFF, DX: HTN LABILE Dx: i10 No current facility-administered medications on file prior to visit. 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 Ex-spouse of 38 years also a smoker. Alcohol use: No Drug use: No Sexual activity: No Comment: Social History Narrative Born [place], moved [facility] 1958 age 9. 4 years in current home[place]quot[place]ANDquot; Dry basement. Electric baseboard heat. No central A/C, uses window units. No pets in home currently. Bird and dog not replaced at deaths 13 years ago. SSI and medical card. Watches 2 [employer], 01/07 in 2013. Review of Symptoms REVIEW OF SYSTEMS GENERAL: No weight loss, malaise or fevers RESPIRATORY: Negative for cough, hemoptysis, wheezing, COPD, dyspnea or shortness of breath CARDIOVASCULAR: Denies palpitations. Admits to chronic angina GI: No nausea, vomiting, or diarrhea SKIN: Negative for lesions, rash, and itching EXAM: BP 154/74 Pulse 84 Temp 36.5 ?C (97.7 ?F) (Left Tympanic) Resp 16 Wt 93.4 kg (206 lb) SpO2 96% BMI 36.49 kg/m2 General Appearance: Well appearing, alert, in no acute distress, well-hydrated, well nourished.. Skin: Skin color, texture, turgor normal, no suspicious rashes or lesions. Lungs: Lungs clear to auscultation. No wheezing, rhonchi, rales. Heart: RRR without murmur, gallop, or rubs. No ectopy. Mechanical heart valve appreciated. Abdomen: Normal abdominal exam, Abdomen soft, non-tender. Bowel sounds normal. No masses, organomegaly. Extremities: No deformities, edema, skin discoloration, clubbing or cyanosis. Good capillary refill. . Feet: Shoes and socks removed and No deformities, ulcers, calluses Health Maintenance List HBA1C due on 12/14/2017 URINE ALBUMIN CREATININE RATIO due on 12/27/2017 FECAL OCCULT BLOOD due on 01/09/2018 DILATED RETINAL EXAM due on 03/10/2018 DIABETIC FOOT EXAM due on 06/07/2018 MAMMOGRAM due on 06/16/2018 LDL due on 06/16/2018 TETANUS due on 03/08/2021 BONE DENSITY Completed ADULT PREVNAR-13 Completed INFLUENZA Completed HEPATITIS C SCREENING Completed PNEUMOVAX AGE 65 AND OVER WITH 5YR LOOKBACK Completed Data reviewed Component Latest Ref Rng ANDamp; Units 03/15/2017 06/16/2017 WBC 3.70 - 11.00 k/uL 9.37 RBC 3.90 - 5.20 m/uL 5.27 (H) Hemoglobin 11.5 - 15.5 g/dL 12.5 Hematocrit 36.0 - 46.0 % 41.2 MCV 80.0 - 100.0 fL 78.2 (L) MCH 26.0 - 34.0 pG 23.7 (L) MCHC 30.5 - 36.0 g/dL 30.3 (L) RDW-CV 11.5 - 15.0 % 17.3 (H) Platelet Count 150 - 400 k/uL 224 MPV 9.0 - 12.7 fL 11.6 Neut% % 77.2 Abs Neut (ANC) 1.45 - 7.50 k/uL 7.23 Lymph% % 12.9 Abs Lymph 1.00 - 4.00 k/uL 1.21 [place]% % 6.8 Abs [place] ANDlt;0.87 k/uL 0.64 Eosin% % 2.0 Abs Eosin ANDlt;0.46 k/uL 0.19 Baso% % 1.1 Abs Baso ANDlt;0.11 k/uL 0.10 Nucleated Reds 0 /100 WBC 0.0 Absolute nRBC ANDlt;0.01 k/uL ANDlt;0.01 Diff Type Auto Diff Protein, Total 6.3 - 8.0 g/dL 7.1 Albumin 3.9 - 4.9 g/dL 3.9 Calcium 8.5 - 10.2 mg/dL 9.3 Bilirubin, Total 0.2 - 1.3 mg/dL 0.2 Alkaline Phosphatase 32 - 117 U/L 101 AST 13 - 35 U/L 22 Glucose 74 - 99 mg/dL 212 (H) BUN 7 - 21 mg/dL 14 Creatinine 0.58 - 0.96 mg/dL 0.64 Sodium 136 - 144 mmol/L 135 (L) Potassium 3.7 - 5.1 mmol/L 4.8 Chloride 97 - 105 mmol/L 101 CO2 22 - 30 mmol/L 22 Anion Gap 9 - 18 mmol/L 12 ALT 7 - 38 U/L 31 eGFR- ANDgt;60 eGFR-All Other Races . ANDgt;60 Cholesterol, Total ANDlt;200 mg/dL 143 Triglyceride ANDlt;150 mg/dL 222 (H) HDL Cholesterol ANDgt;39 mg/dL 27 (L) LDL Cholesterol ANDlt;100 mg/dL 72 Non HDL Cholesterol ANDlt;130 mg/dL 116 Fasting Time hrs 14 VLDL Cholesterol ANDlt;30 mg/dL 44 (H) TC:HDL Ratio ANDlt;5.10 5.30 (H) LDL:HDL Ratio ANDlt;2.54 2.67 (H) Hemoglobin A1C 4.3 - 5.6 % 7.2 (H) 8.5 (H) Estimated Average Glucose mg/dL 160 197 ASSESSMENT/PLAN: 1. Type 2 diabetes mellitus without complication, without long-term current use of insulin (HCC) - ICD9: 250.00, ICD10: E11.9 (primary diagnosis) worsening control Poor adherence to plan of care. - Increase metformin (Glucophage) - Blood glucose monitoring on a twice a day schedule - Encouraged regular aerobic exercise and weight loss. Discussed diabetic diet and good choices. - Daily Asprin therapy recommended - Follow up in 3 months, sooner should any other issues arise. - HGB A1C 2. ASHD (arteriosclerotic heart disease) - ICD9: 414.00, ICD10: I25.10 Continue recommendations per cardiology. 3. Postsurgical aortocoronary bypass status - ICD9: V45.81, ICD10: Z95.1 Continue recommendations per cardiology. 4. Gastroesophageal reflux disease, esophagitis presence not specified - ICD9: 530.81, ICD10: K21.9 Good control Prevacid 30 mg BID 5. Other hyperlipidemia - ICD9: 272.4, ICD10: E78.4 - good control - Continue current medication. - Encouraged following a low fat, low cholesterol diet. - Discussed the benefits of regular aerobic exercise and weight loss. 6. Hypertension goal BP (blood pressure) ANDlt; 140/90 - ICD9: 401.9, ICD10: I10 - poor control - Increase atenolol (Tenormin) - Encouraged dietary sodium restriction/DASH diet - Recommended regular aerobic exercise. - Reviewed risks of HTN and principles of treatment - Goal of BP ANDlt;140/90 7. Chronic anticoagulation - ICD9: V58.61, ICD10: Z79.01 Continue current regimen of coumadin. INR therapeutic today. MD Augustine Curiel Ma 06/28/2017 3:10 PM Written 06/28/2017: Home BP Cuff Validated. Home BP: 154/73 Office BP: 154/74 Referring Provider: KERI GAMEZ) [[id number]] Allergies As of Date: 06/28/2017 Noted Allergy Reaction ADVAIR DISKUS (FLUTICASONE-SALMET*05/16/2011 14 - Other: See Comments Comments: CHEST PAIN ASA (SALICYLATES) 05/10/2005 16 - Unknown Comments: patient taking coumadin - on low dose ASA for valve dysfunction CEPHALEXIN 02/21/2008 Comments: Stomach pains-pt. ended up in hospital EKG PADS [Other] 05/10/2005 Comments: adhesive LISINOPRIL 07/03/2014 3 - Cough NEXIUM (ESOMEPRAZOLE MAGNESIUM) 01/26/2016 14 - Other: See Comments Comments: Ineffective OMEPRAZOLE 01/26/2016 14 - Other: See Comments Comments: Ineffective TUDORZA PRESSAIR (ACLIDINIUM BROM*01/26/2016 8 - GI Upset VENTOLIN (ALBUTEROL) 01/26/2016 14 - Other: See Comments Comments: Jany MDI does not work, Pro Air works best Date Reviewed: 06/28/2017 Reviewed by: Augustine Day Ma - Fully Assessed Reason for Visit: F/U Diabetes 3 Month [445] Primary Visit Diagnosis:Type 2 diabetes mellitus without complication, without long-term current use of insulin (HCC) [E11.9] Other Visit Diagnoses:ASHD (arteriosclerotic heart disease) [I25.10] Postsurgical aortocoronary bypass status [Z95.1] Gastroesophageal reflux disease, esophagitis presence not specified [K21.9] Other hyperlipidemia [E78.4] Hypertension goal BP (blood pressure) < 140/90 [I10] Chronic anticoagulation [Z79.01] Order(s):INR (POC) [[id number]] Order #: [id number]. #:[id number] cyclobenzaprine (FLEXERIL) 10 mg tabletTake 1 tablet by mouth at bedtime as needed for Muscle Spasm.Disp: 30 tabletRfl: 3 loratadine (CLARITIN) 10 mg tabletTake 1 tablet by mouth once daily.Disp: 90 tabletRfl: 1 metFORMIN ER (GLUCOPHAGE XR) 500 mg 24 hr tabletTake 2 tablets by mouth twice daily.Disp: 120 tabletRfl: 5 atenolol (TENORMIN) 100 mg tabletTake 1 tablet by mouth once daily.Disp: 30 tabletRfl: 2 HGB A1C [[id number]] Order #: [id number] FUTURE Prescriptions as of 06/28/2017 Sig: LORATADINE 10 MG TABLET Take 1 tablet by mouth once d* METFORMIN ER 500 MG TABLET,EX* Take 2 tablets by mouth twice* ATENOLOL 100 MG TABLET Take 1 tablet by mouth once d* ATORVASTATIN 20 MG TABLET take 1 tablet by mouth once d* LANSOPRAZOLE 30 MG CAPSULE,DE* Take 1 capsule by mouth twice* POLYETHYLENE GLYCOL 3350 17 G* Take 17 g by mouth once daily. WARFARIN 6 MG TABLET TAKE 7MG ON MONDAY, MONDAY* GLIPIZIDE ER 10 MG TABLET, EX* Take 1 tablet by mouth once d* LOSARTAN 100 MG TABLET take 1 tablet by mouth once d* OXYBUTYNIN CHLORIDE ER 10 MG * take 1 tablet by mouth once d* FERROUS SULFATE 325 MG (65 MG* Take 1 tablet by mouth twice * DICLOFENAC 1 % TOPICAL GEL Apply 2 g to affected area tw* LEG BRACE 1 Each continuous. DX: S89.92* ISOSORBIDE MONONITRATE ER 30 * take 2 tablets by mouth once * FUROSEMIDE 20 MG TABLET take 1 tablet by mouth once d* LEG BRACE 1 Each continuous. WARFARIN 6 MG TABLET Take 7 mg Daily NITROGLYCERIN 0.4 MG SUBLINGU* Dissolve 1 tablet under the t* NYSTATIN 100,000 UNIT/GRAM TO* Apply 1 application to affect* MECLIZINE 12.5 MG TABLET Take 1 tablet by mouth three * WARFARIN 1 MG TABLET take 1 tablet by mouth once d* COMPOUNDED PRESCRIPTION NEBULIZER SUPPLIES, MEDICATIO* COMPOUNDED PRESCRIPTION HOME BP CUFF, DX: HTN LABILE * CYCLOBENZAPRINE 10 MG TABLET Take 1 tablet by mouth at bed* ASPIRIN 81 MG TABLET,DELAYED * take 1 tablet by mouth once d* ALBUTEROL SULFATE HFA 90 MCG/* Inhale 2 Puffs as instructed * TRAZODONE 50 MG TABLET Take 1 tablet by mouth daily * Medication notes this encounter ALBUTEROL SULFATE HFA 90 MCG/ACTUATION AEROSOL INHALER >> Augustine Day Ma 06/28/2017 2:57 PM >> AUGUSTINE DAY MA MonJun 28, 2017 2:57 PM Insurance will not cover. POLYETHYLENE GLYCOL 3350 17 GRAM/DOSE ORAL POWDER >> Augustine Haumesser Anel 06/28/2017 2:59 PM >> HAUMESSER AUGUSTINE TAM MonJun 28, 2017 2:59 PM Duplicate. Problem List As Of Date 06/28/2017 Noted Resolved AORTOCORONARY BYPASS STATUS [Z95.1] More... OVERWEIGHT [E66.9] 05/08/2015 ASHD (arteriosclerotic heart disease) [I25.10] INVALID FOR* More... DIABETES MELLITUS TYPE II-UNCOMPL [E11.9] INVALID FOR*02/12/2014 More... HYPERLIPIDEMIA NEC/NOS [E78.5] INVALID FOR*07/24/2015 More... Hematuria [599.7] INVALID FOR*07/24/2015 More... History of mechanical aortic valve replacement *INVALID FOR* More... Abdominal pain, unspecified site [R10.9] INVALID FOR*05/08/2015 Acute gastritis without mention of hemorrhage [*INVALID FOR*01/26/2016 Esophageal reflux [K21.9] INVALID FOR* More... Headache(784.0) [R51] INVALID FOR*01/26/2016 Bronchitis Recurrent [J40] INVALID FOR*03/21/2017 Hallux valgus (acquired) [M20.10] INVALID FOR*07/24/2015 Pain in limb [M79.609] INVALID FOR*01/26/2016 Goiter [E04.9] INVALID FOR* S/P AVR [Z95.2] INVALID FOR*01/26/2016 Multinodular thyroid [E04.2] INVALID FOR* Emphysema of lung (HCC) [J43.9] More... Hyperlipemia [E78.5] INVALID FOR* DM type 2 (diabetes mellitus, type 2) (HCC) [E1*INVALID FOR*05/08/2015 Hematuria [R31.9] INVALID FOR*10/23/2015 Smoking [F17.200] INVALID FOR*10/23/2015 Chronic anticoagulation [Z79.01] INVALID FOR* OAB (overactive bladder) [N32.81] INVALID FOR* More... Frequency of urination [R35.0] INVALID FOR*01/26/2016 Hypertension goal BP (blood pressure) < 140/90 *INVALID FOR* More... Diabetes mellitus type 2, uncontrolled, without*INVALID FOR*03/21/2017 More... Nicole rash of groin [B37.89] INVALID FOR* More... Stress at home [F43.9] INVALID FOR* Insomnia [G47.00] INVALID FOR* Financial difficulties [Z59.8] INVALID FOR* Obesity, Class III, BMI >= 40 (morbid obesity) *INVALID FOR* Hemoptysis [R04.2] INVALID FOR* Priority: A More... 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 Eczema [L30.9] Diabetes mellitus (HCC) [E11.9] Prescriptions ordered this encounter Disp Refills Start End CYCLOBENZAPRINE 10 MG TABLET 30 t* 3 06/28/2017 Route: ORAL Sig: Take 1 tablet by mouth at bedtime as needed for Muscle Spasm. LORATADINE 10 MG TABLET 90 t* 1 06/28/2017 Route: ORAL Sig: Take 1 tablet by mouth once daily. METFORMIN ER 500 MG TABLET,EXTENDED * 120 * 5 06/28/2017 Route: ORAL Sig: Take 2 tablets by mouth twice daily. ATENOLOL 100 MG TABLET 30 t* 2 06/28/2017 Route: ORAL Sig: Take 1 tablet by mouth once daily. Medications Discontinued During This Encounter cyclobenzaprine (FLEXERIL) 10 mg tab* 30 t* 1 03/21/2017 06/28/2017 Route: ORAL Sig: Take 1 tablet by mouth at bedtime as needed for Muscle Spasm. Disc: Reason for discontinue is not on file. ALPRAZolam (XANAX) 0.25 mg tablet 60 t* 0 03/21/2017 06/28/2017 Class: Print RX Route: ORAL Sig: Take 1 tablet by mouth twice daily as needed. Disc: Reason for discontinue is not on file. triamcinolone acetonide (KENALOG) 0.* 60 g 1 03/21/2017 06/28/2017 Route: TOPICAL Sig: Apply 1 application to affected area once daily as needed. Apply sparingly to eczema on legs. Disc: Reason for discontinue is not on file. POLYETHYLENE GLYCOL 3350 ORAL 06/28/2017 Class: Historical Med Route: ORAL Sig: Take 17 g by mouth once daily. Disc: Reason for discontinue is not on file. polyethylene glycol 3350 (MIRALAX, G* 1 Tony* 11 08/29/2016 06/28/2017 Sig: Take 17g dissolved into 8oz of liquid one time daily as needed Disc: Reason for discontinue is not on file. COMPOUNDED PRESCRIPTION 1 Ea* 0 06/07/2016 06/28/2017 Sig: [facility] Disc: Reason for discontinue is not on file. loratadine (CLARITIN) 10 mg tablet 90 t* 3 04/19/2016 06/28/2017 Sig: take 1 tablet by mouth once daily Disc: Reason for discontinue is not on file. metFORMIN ER (GLUCOPHAGE XR) 500 mg * 90 t* 3 04/10/2017 06/28/2017 Sig: take 1 tablet by mouth every morning and take 2 tablets every evening Disc: Reason for discontinue is not on file. atenolol (TENORMIN) 50 mg tablet 06/28/2017 Class: Historical Med Route: ORAL Sig: Take 50 mg by mouth once daily. Disc: Reason for discontinue is not on file. sertraline (ZOLOFT) 100 mg tablet 90 t* 1 05/23/2017 06/28/2017 Class: Med Update Route: ORAL Sig: Take 2 tablets by mouth once daily. Disc: Reason for discontinue is not on file. atenolol (TENORMIN) 50 mg tablet 90 t* 3 05/16/2017 06/28/2017 Route: ORAL Sig: Take 1 tablet by mouth once daily. Disc: Reason for discontinue is not on file. Disposition: Return in about 3 months (around 09/28/2017). Follow-up and Disposition History Recorded Encounter Status:Closed by KERI GAMEZ MD on 06/28/17 PROGRESS Observed: 06/22/2017 Status: COMPLETED Source: [facility] 2:02 PM [facility] REPOSITORY HNO ID: [id number] Author: Anastasiya Swift RN Service: (none) Author Type: (none) Type: Progress Notes Filed: 06/22/2017 2:03 PM Note Text: Left detailed message with instructions below and asked patient to call back if any questions and informed patient that next INR check is at 2:15 om on 06/28/17, just prior to PCP appointment at 2:40 pm. Anastasiya Swift RN PROGRESS Observed: 06/22/2017 Status: COMPLETED Source: [facility] 11:58 AM [facility] REPOSITORY HNO ID: [id number] Author: Keri Mo) Vera Service: (none) Author Type: Physician Type: Progress Notes Filed: 06/22/2017 11:59 AM Note Text: INR therapeutic. Continue current coumadin dosage and follow up in 1 week prior to appointment. PROGRESS Observed: 06/22/2017 Status: COMPLETED Source: [facility] 11:38 AM [facility] REPOSITORY HNO ID: [id number] Author: Anastasiya Swift RN Service: (none) Author Type: (none) Type: Progress Notes Filed: 06/22/2017 2:03 PM Note Text: INR 4.0 target INR range of 3.0-4.0-results reviewed with patient. Current Coumadin dose is 7 mg daily with last dose change on 03/22/18 and previous dose of holding one dose then resume 7 mg daily with INR of 4.5. Last INR on 06/15/17 was 2.6. Has 1 mg and 6mg tablets. Advised patient would be contacted regarding dosage and followup instructions after review by provider. Please advise on coumadin dose and if PCP approves, patient can have INR check prior to PCP appointment on 06/28/17? Please review and advise. Anastasiya Swift RN + CNCO Observed: 06/16/2017 Status: COMPLETED Source: [facility] 2:11 PM [facility] REPOSITORY HNO ID: [id number] Author: Mammography Coordinator Service: (none) Author Type: Physician Type: Letter Filed: 06/19/2017 11:33 PM Note Text: June 16, 2017 PID: [id number] Flavia Case [address] [place] [address] Dear Ms. Case, We are pleased to inform you that the results of your recent breast imaging exam on 06/16/2017 are normal. Early detection of cancer is very important. We also understand recommendations regarding breast cancer screening are controversial. Please discuss with your primary care provider which strategy is best for you and whether a mammogram is right for you. Your imaging studies and report will be kept on file at [facility] as part of your permanent medical record and are available for your continuing care. Thank you for allowing us to help in meeting your health care needs. Sincerely, Dr. Arshad Interpreting Radiologist [facility] (Normal over 40) CBC AND DIFFERENTIAL Collected: 06/16/2017 Status: F Source: [facility] 12:16 PM [facility] [place] REPOSITORY TYPE CODE TESTS RESULT OUT OF REFERENCE UNITS RANGE LAB WBC 3.70-11.00 k/uL WBC 9.37 LAB RBC 3.90-5.20 m/uL RBC High 5.27 LAB HGB 11.5-15.5 g/dL Hemoglobin 12.5 LAB HCT 36.0-46.0 % Hematocrit 41.2 LAB MCV 80.0-100.0 fL Low MCV 78.2 LAB MCH 26.0-34.0 pG Low MCH 23.7 LAB MCHC 30.5-36.0 g/dL Low MCHC 30.3 LAB RDWCV 11.5-15.0 % RDW-CV High 17.3 LAB PLTCT 150-400 k/uL Platelet Count 224 LAB MPV 9.0-12.7 fL MPV 11.6 LAB ANEUT % Neut% 77.2 LAB AANEUT 1.45-7.50 k/uL Abs Neut 7.23 LAB ALYMP % Lymph% 12.9 LAB AALYMP 1.00-4.00 k/uL Abs Lymph 1.21 LAB AMONO % [place]ad% 6.8 LAB AAMONO <0.87 k/uL Abs [place] 0.64 LAB AEOS % Eosin% 2.0 LAB AAEOS <0.46 k/uL Abs Eosin 0.19 LAB ABASO % Baso% 1.1 LAB AABASO <0.11 k/uL Abs Baso 0.10 LAB AUNRBC 0 /100 WBC NRBCs 0.0 LAB ABNRBC <0.01 k/uL Absolute nRBC <0.01 LAB DTYP DTYPE Auto Diff Performed By: #### CBCDIF, CMP, LIPB, HBA1C #### [facility] [address] [place] [address] COMP METABOLIC PANEL Collected: 06/16/2017 Status: F Source: ARARAT 12:16 PM [facility] REPOSITORY TYPE CODE TESTS RESULT OUT OF REFERENCE UNITS RANGE LAB TP 6.3-8.0 g/dL Protein, Total 7.1 LAB ALB 3.9-4.9 g/dL Albumin 3.9 LAB CA 8.5-10.2 mg/dL Calcium, Total 9.3 LAB TBIL 0.2-1.3 mg/dL Bilirubin, Total 0.2 LAB ALKP 32-117 U/L Alkaline Phosphatase 101 LAB AST 13-35 U/L AST 22 LAB GLU 74-99 mg/dL Glucose High 212 Result Comment: The [place] Diabetes [employer] (ADA) provides guidance for cutoff values for fasting glucose and random glucose. The ADA defines fasting as no caloric intake for at least 8 hours. Fas ting plasma glucose results between 100 to 125 mg/dL indicate increased risk for diabetes (prediabetes). Fasting plasma glucose results greater than or equal to 126 mg/dL meet the criteria for diagnosis of diabetes. In the absence of unequivocal hyperglycemia, results should be confirmed by repeat testing. In a patient with classic symptoms of hyperglycemia or hyperglycemic crisis, random plasma glucose results greater than or equal to 200 mg/dL meet the criteria for diagnosis of diabetes. Reference: Standards of Medical Care in Diabetes 2016, [place] Diabetes Association. Diabetes Care. 2016.39(Suppl 1). LAB BUN 7-21 mg/dL BUN 14 LAB CRET 0.58-0.96 mg/dL Creatinine 0.64 LAB NA 136-144 mmol/L Sodium Low 135 LAB K 3.7-5.1 mmol/L Potassium 4.8 LAB CL 97-105 mmol/L Chloride 101 LAB CO2 22-30 mmol/L CO2 22 LAB AGAP 9-18 mmol/L Anion Gap 12 LAB ALT 7-38 U/L ALT 31 LAB GFRAA eGFR- Amer. >60 LAB GFRNAA . eGFR-All Other Races >60 Result Comment: eGFR (Estimated GFR) Units of measure: mL/min/1.73 meters squared eGFR is derived from the reexpressed MDRD Study equation using the following parameters: serum creatinine, age, gender and race. The creatinine assay has been calibrated to be traceable to IDMS. An eGFR <60 mL/min/1.73m2 for >3 months is consistent with chronic kidney disease. Refer to KDOQI guidelines for clinical interpretation. In patients with unstable renal function, e.g. those with acute kidney injury, the eGFR may not accurately reflect actual GFR. Performed By: #### CBCDIF, CMP, LIPB, HBA1C #### [facility] [address] [place] [id number] LIPID PANEL, BASIC Collected: 06/16/2017 Status: F Source: ARARAT 12:16 PM [facility] REPOSITORY TYPE CODE TESTS RESULT OUT OF REFERENCE UNITS RANGE LAB CHOL <200 mg/dL Cholesterol 143 Result Comment: <200 mg/dL, Desirable 200-239 mg/dL, Borderline high >239 mg/dL, High LAB TRIGLY <150 mg/dL Triglyceride High 222 Result Comment: <150 mg/dL, Normal 150-199 mg/dL, Borderline high 200-499 mg/dL, High >499 mg/dL, Very high LAB HDL >39 mg/dL HDL-Cholesterol Low 27 Result Comment: 40-59 mg/dL, Acceptable >59 mg/dL, High: Negative risk factor for coronary heart disease <40 mg/dL, Low: Positive risk factor for coronary heart disease LAB LDL <100 mg/dL LDL-Cholesterol 72 Result Comment: <100 mg/dL, Optimal 100-129 mg/dL, Near optimal/above optimal 130-159 mg/dL, Borderline high 160-189 mg/dL, High >189 mg/dL, Very high Secondary prevention optimal LDL Cholesterol levels are recommended to be < 70 mg/dL LAB NONHDL <130 mg/dL Non HDL Cholesterol 116 Result Comment: <130 mg/dL, Optimal 130-159 mg/dL, Near optimal/above optimal 160-189 mg/dL, Borderline high 190-219 mg/dL, High >219 mg/dL, Very high Secondary prevention optimal non HDL Cholesterol levels are recommended to be < 100 mg/dL LAB FT hrs Fasting Time 14 LAB VLDL <30 mg/dL High VLDL Cholesterol 44 LAB TCHDL <5.10 High TC:HDL Ratio 5.30 LAB LDLHDL <2.54 High LDL:HDL Ratio 2.67 Result Comment: Reference: 1. National Cholesterol Education Program ATP III Guideline At-A-Glance Quick Desk Reference: National Heart, Lung, and Blood [place]. National Institutes of Health. 2001: NIH Publication No. 01-3305. 2. An International Atherosclerosis Society position paper: global recommendations for the management of dyslipidemia: executive summary, Atherosclerosis. 2014: 232(2):410-413. Performed By: #### CBCDIF, CMP, LIPB, HBA1C #### [facility] [address] [place], [place] [address] HEMOGLOBIN A1C Collected: 06/16/2017 Status: F Source: ARARAT 12:16 PM [facility] [place] REPOSITORY TYPE CODE TESTS RESULT OUT OF REFERENCE UNITS RANGE LAB HGBA1C 4.3-5.6 % High Hemoglobin A1c 8.5 LAB HBA0 mg/dL Est. Average Glucose 197 Result Comment: eAG: (Estimated average glucose) is a calculated value from HgbA1c and is retail service representative of the average blood glucose level in the last 2-3 month period. Performed By: #### CBCDIF, CMP, LIPB, HBA1C #### [facility] [address] [place], [place] [id number] ANABELA SCREENING Observed: 06/16/2017 Status: F Source: ARARAT 11:56 AM [facility] REPOSITORY * * *Final Report* * * DATE OF EXAM: Jun 16 2017 11:56AM RIYA [id number] - [facility] SCREENING / PROCEDURE REASON: Encounter for screening mammogram for malignant neoplasm of breast * * * * Physician Interpretation * * * * RESULT: #[id number] - ANABELA SCREENING BILATERAL DIGITAL SCREENING MAMMOGRAM WITH CAD: 06/16/2017 HISTORY: Screening Mammogram - patient reports NO breast symptoms /priors available for comparison. RESULT: TECHNIQUE: The study was acquired using full field digital technology and interpreted from soft copy. Current study was also evaluated with a Computer Aided Detection (CAD). Comparison is made to exams dated: 08/19/2015 mammogram and 06/05/2014 mammogram - [facility]. There are scattered fibroglandular elements in both breasts. There are benign appearing scattered calcifications in both breasts. No significant masses, calcifications, or other findings are seen in either breast. There has been no significant interval change. IMPRESSION: BENIGN FINDING There is no mammographic evidence of malignancy.A 1 year screening mammogram is recommended. Sita Arshad M.D., lp/josé:06/16/2017 14:11:16 Product Development Technician: Bertha FORD(Polo)(Parvin), [facility] letter sent: Normal over 40 Mammogram BI-RADS: 2 Benign finding Tax Associate Attorney: José Transcribe Date/Time: Jun 16 2017 11:34A Dictated by: SITA ARSHAD MD This examination was interpreted and the report reviewed and electronically signed by: SITA ARSHAD MD on Jun 16 2017 2:11PM EST [id number] PROGRESS Observed: 06/16/2017 Status: COMPLETED Source: ARARAT 11:32 AM [facility] REPOSITORY HNO ID: [id number] Author: Christelle Ford Service: (none) Author Type: (none) Type: Progress Notes Filed: 06/16/2017 11:32 AM Note Text: Radiology Service Progress Note PATIENT NAME: Flavia Case DATE OF SERVICE: June 16, 2017 TIME: 11:32 AM PATIENT IDENTITY VERIFICATION COMPLETED USING TWO (2) METHODS: Patient confirmed name verbally and Date of . PATIENT GENDER DATA: Female. status: : No status: NO. PATIENT RELEVANT IMPLANT DATA REVIEWED: Not Applicable RADIOLOGY DEPARTMENT: [facility] DATA: Not applicable SIGNED BY: Christelle Ford June 16, 2017 11:32 AM CNCO Observed: 06/16/2017 Status: COMPLETED Source: ARARAT 12:00 AM [facility] [place] REPOSITORY Letter Text Keri Gamez MD F [facility] Flavia Case [address] [place] [id number] [facility] #: [id number] 06/16/2017 Dear Rodrigo Case, I have received the results of your recent tests. The results of your Mammogram tests were either normal or within the acceptable range. Repeat in 1 year. We can discuss this at your next visit. Please do not hesitate to contact me with any questions. Sincerely, Keri Gamez MD [facility] electronically signed to expedite mailing PROGRESS Observed: 06/15/2017 Status: COMPLETED Source: ARARAT 4:41 PM [facility] REPOSITORY HNO ID: [id number] Author: Arminda Fair Ma Service: (none) Author Type: (none) Type: Progress Notes Filed: 06/15/2017 4:43 PM Note Text: Patient was notified and advised stopped zoloft 3 weeks ago but advised that to Himanshu Aquino previously. Patient has had no change in other medications and no leafy greens increased in diet. Patient is aware to continue same dose and recheck in one week Tracker updated and apt made previously with nurse in coumadin clinic Arminda Fair Ma PROGRESS Observed: 06/15/2017 Status: COMPLETED Source: ARARAT 4:29 PM [facility] REPOSITORY HNO ID: [id number] Author: Keri Gamez Service: (none) Author Type: Physician Type: Progress Notes Filed: 06/15/2017 4:30 PM Note Text: INR now subtherapeutic on same dose. Please confirm she has not missed any doses and ask about change in medications or more leafy green vegetables. She has been therapeutic on this dose previously. Would recommend continuing same dose and recheck in 1 week. PROGRESS Observed: 06/15/2017 Status: COMPLETED Source: ARARAT 12:36 PM [facility] REPOSITORY HNO ID: [id number] Author: Nohelia Riggins RN Service: (none) Author Type: (none) Type: Progress Notes Filed: 06/15/2017 12:37 PM Note Text: Patient had INR completed at [facility] Patient's INR is 2.6 (target range 3.0-4.0) Patient is currently taking 7mg daily Patient's last dose change was 05/22/17 due to high INR at 4.5 Patient has had no medication and no change in diet. Advised patient that they would be contacted regarding medication dose and follow-up once reviewed by provider. After provider review, please contact patient with information and schedule follow-up appointment with coumadin clinic. PROGRESS Observed: 06/15/2017 Status: COMPLETED Source: ARARAT 11:41 AM [facility] REPOSITORY HNO ID: [id number] Author: Wade Corado Service: (none) Author Type: Physician Type: Progress Notes Filed: 06/15/2017 11:54 AM Note Text: PERTINENT CARDIAC HISTORY Aortic stenosis - mechanical AVR, with elevated gradients 1996 (prosthetic/BSA mismatch) ASHD - CABGx3 1996 HTN HL DM CHF - diastolic ADHERENCE TO GUIDELINES JEFF-I or ARB for HF with prior LVEF<40 (NQF 0081) - N/A ASA or Plavix for ASHD (NQF 0067) - met Beta yi for ASHD with prior FL or prior LVEF<40 (NQF 0070) - N/A Beta yi for HF with prior LVEF<40 (NQF 0083) - N/A JEFF-I or ARB for ASHD with DM or prior LVEF<40 (NQF 0066) - N/A Statin therapy for ASHD or FHL or DM - met BMI documented and plan if >25 (NQF 0421) - lifestyle recommendation form Tobacco use screening and referral (NQF 0028) - lifestyle recommendation form Recommendation for whole food, plant based diet - lifestyle recommendation form CLINICAL IMPRESSION/PLAN: Flavia Case has stable aortic valve prosthetic function. Her valve is small for her BSA. She has no good options at this time other than significant weight loss. We have discussed this in the past. I've asked her to have labs done as scheduled. She will continue her current medication. I've asked her to check blood pressure at home and to let me know. We will need to decrease afterload as much as possible to avoid further LVH. There is been no development of LV systolic dysfunction. I will see her in 6 months. If there is increased chest pain or shortness of breath, she has been advised to contact me. Written and verbal health teaching given to patient, patient verbalizes understanding and agrees with treatment plan. This note was generated using [employer] voice recognition system, and there may be some incorrect words, spellings, and punctuation that were not noted in checking the note before saving. DIAGNOSIS FOR VISIT: AVR Hypertension HISTORY OF PRESENT ILLNESS Flavia Case returns for follow-up of her aortic valve disease and other cardiac issues, as noted above. She has completed her radiation therapy for the time being. She still has not had her colonoscopy. She is supposed any further bridging with Lovenox She's had no chest discomfort. She reports stable exercise tolerance. She's had no orthopnea. Her edema is unchanged. She's had no syncope, palpitations, TIAs, amaurosis or claudication ALLERGIES: ALLERGIES Allergen Reactions - Advair Diskus [Flut* Other: See Comments CHEST PAIN - Asa [Salicylates] Unknown patient taking coumadin - on low dose ASA for valve dysfunction - Cephalexin Stomach pains-pt. ended up in hospital - Ekg Pads [Other] adhesive - Lisinopril Cough - Nexium [Esomeprazol* Other: See Comments Ineffective - Omeprazole Other: See Comments Ineffective - Tudorza Pressair [A* GI Upset - Ventolin [Albuterol] Other: See Comments Ventjose MDI does not work, Pro Air works best CURRENT OUTPATIENT MEDICATIONS: atorvastatin (LIPITOR) 20 mg tablet take 1 tablet by mouth once daily guaiFENesin (MUCINEX) 600 mg 12 hr tablet Take 2 tablets by mouth twice daily for 7 days. lansoprazole (PREVACID) 30 mg capsule Take 1 capsule by mouth twice daily before meals (0600/1600). polyethylene glycol 3350 (MIRALAX) 17 gram/dose powder Take 17 g by mouth once daily. sertraline (ZOLOFT) 100 mg tablet Take 2 tablets by mouth once daily. warfarin (COUMADIN) 6 mg tablet TAKE 7MG ON MONDAY, MONDAY, AND MONDAY, AND take 1 tablet by mouth ALL OTHER DAYS glipiZIDE XL (GLUCOTROL XL) 10 mg 24 hr tablet Take 1 tablet by mouth once daily. atenolol (TENORMIN) 50 mg tablet Take 1 tablet by mouth once daily. aspirin, enteric coated (ASPIRIN, ENTERIC COATED) 81 mg EC tablet take 1 tablet by mouth once daily losartan (COZAAR) 100 mg tablet take 1 tablet by mouth once daily oxybutynin ER (DITROPAN XL) 10 mg 24 hr tablet take 1 tablet by mouth once daily metFORMIN ER (GLUCOPHAGE XR) 500 mg 24 hr tablet take 1 tablet by mouth every morning and take 2 tablets every evening ferrous sulfate 325 mg (65 mg iron) tablet Take 1 tablet by mouth twice daily with meals. diclofenac sodium (VOLTAREN) 1 % topical gel Apply 2 g to affected area twice daily as needed. Both heels cyclobenzaprine (FLEXERIL) 10 mg tablet Take 1 tablet by mouth at bedtime as needed for Muscle Spasm. ALPRAZolam (XANAX) 0.25 mg tablet Take 1 tablet by mouth twice daily as needed. triamcinolone acetonide (KENALOG) 0.1 % cream Apply 1 application to affected area once daily as needed. Apply sparingly to eczema on legs. atenolol (TENORMIN) 50 mg tablet Take 50 mg by mouth once daily. POLYETHYLENE GLYCOL 3350 ORAL Take 17 g by mouth once daily. Leg Brace (KNEE SUPPORT BRACE) misc 1 Each continuous. DX: S89.92XA isosorbide mononitrate ER (IMDUR) 30 mg 24 hr tablet take 2 tablets by mouth once daily furosemide (LASIX) 20 mg tablet take 1 tablet by mouth once daily albuterol HFA (PROAIR HFA) 90 mcg/actuation inhaler Inhale 2 Puffs as instructed every 4 hours as needed. Leg Brace (KNEE SUPPORT BRACE) misc 1 Each continuous. warfarin (COUMADIN) 6 mg tablet Take 7 mg Daily nitroglycerin sublingual (NITROSTAT) 0.4 mg SL tablet Dissolve 1 tablet under the tongue as needed. DISSOLVE ON TONGUE FOR CHEST PAIN. IF NO PAIN RELIEF, CALL 911 nystatin (MYCOSTATIN) cream Apply 1 application to affected area twice daily. Groin as needed meclizine (ANTIVERT) 12.5 mg tab Take 1 tablet by mouth three times daily as needed (dizziness). polyethylene glycol 3350 (MIRALAX, GLYCOLAX) 17 gram/dose powder Take 17g dissolved into 8oz of liquid one time daily as needed warfarin (COUMADIN) 1 mg tablet take 1 tablet by mouth once daily COMPOUNDED PRESCRIPTION Aquatherapy at [facility] loratadine (CLARITIN) 10 mg tablet take 1 tablet by mouth once daily traZODone (DESYREL) 50 mg tablet Take 1 tablet by mouth daily at bedtime. COMPOUNDED PRESCRIPTION NEBULIZER SUPPLIES, MEDICATION CUP, TUBING FOR USE WITH NEBULIZER MACHINE DX J40.0 >Blood Pressure Cuff Home HOME BP CUFF, DX: HTN LABILE Dx: i10 PHYSICAL EXAMINATION: VITAL SIGNS: BP 142/78 Pulse 68 Ht 5' 3 (1.60m) Wt 222 lb 3.2 oz (100.8kg) BMI 39.37 kg/(m2). Chest: Clear to percussion and auscultation. Trachea is midline. Air entry is equal. Cardiac: Regular rhythm. S1 and S2 Are normal for mechanical aortic prosthesis. PMI is nondisplaced. There is a soft systolic ejection murmur. Carotids are brisk without bruits. JVP is less than 10 cm. Abdomen: Soft and nontender. There are no pulsatile masses or bruits. No liver enlargement. Bowel sounds are active. Extremities: Trace edema. Pulses are intact and symmetrical. Echocardiogram was recently reviewed. Left ventricular function is normal. She has moderate LVH, which has increased slightly. There is no significant change in valve gradients. Laboratory studies are due. Electronically Signed: Wade Corado MD June 15, 2017 11:41 AM CC: Keri Gamez MD CNOV Observed: 06/15/2017 Status: COMPLETED Source: ARARAT 11:30 AM [facility] OTHER [place] REPOSITORY Office Visit (AGCARDWST) FLAVIA CASE ([id number]) 1950 F Date Time Provider Department 06/15/17 11:30 AM WADE CORADO During your visit today, we recorded the following information about you: Pulse Blood pressure Weight Height 68/minute 142/78 100.8 kg 1.6 m Wade Corado MD 06/15/2017 11:54 AM Signed PERTINENT CARDIAC HISTORY Aortic stenosis - mechanical AVR, with elevated gradients 1996 (prosthetic/BSA mismatch) ASHD - CABGx3 1996 HTN HL DM CHF - diastolic ADHERENCE TO GUIDELINES JEFF-I or ARB for HF with prior LVEFANDlt;40 (NQF 0081) - N/A ASA or Plavix for ASHD (NQF 0067) - met Beta yi for ASHD with prior FL or prior LVEFANDlt;40 (NQF 0070) - N/A Beta yi for HF with prior LVEFANDlt;40 (NQF 0083) - N/A JEFF-I or ARB for ASHD with DM or prior LVEFANDlt;40 (NQF 0066) - N/A Statin therapy for ASHD or FHL or DM - met BMI documented and plan if ANDgt;25 (NQF 0421) - lifestyle recommendation form Tobacco use screening and referral (NQF 0028) - lifestyle recommendation form Recommendation for whole food, plant based diet - lifestyle recommendation form CLINICAL IMPRESSION/PLAN: Flavia Case has stable aortic valve prosthetic function. Her valve is small for her BSA. She has no good options at this time other than significant weight loss. We have discussed this in the past. I've asked her to have labs done as scheduled. She will continue her current medication. I've asked her to check blood pressure at home and to let me know. We will need to decrease afterload as much as possible to avoid further LVH. There is been no development of LV systolic dysfunction. I will see her in 6 months. If there is increased chest pain or shortness of breath, she has been advised to contact me. Written and verbal health teaching given to patient, patient verbalizes understanding and agrees with treatment plan. This note was generated using [employer] voice recognition system, and there may be some incorrect words, spellings, and punctuation that were not noted in checking the note before saving. DIAGNOSIS FOR VISIT: AVR Hypertension HISTORY OF PRESENT ILLNESS Flavia Case returns for follow-up of her aortic valve disease and other cardiac issues, as noted above. She has completed her radiation therapy for the time being. She still has not had her colonoscopy. She is supposed any further bridging with Lovenox She's had no chest discomfort. She reports stable exercise tolerance. She's had no orthopnea. Her edema is unchanged. She's had no syncope, palpitations, TIAs, amaurosis or claudication ALLERGIES: ALLERGIES Allergen Reactions - Advair Diskus [Flut* Other: See Comments CHEST PAIN - Asa [Salicylates] Unknown patient taking coumadin - on low dose ASA for valve dysfunction - Cephalexin Stomach pains-pt. ended up in hospital - Ekg Pads [Other] adhesive - Lisinopril Cough - Nexium [Esomeprazol* Other: See Comments Ineffective - Omeprazole Other: See Comments Ineffective - Tudorza Pressair [A* GI Upset - Ventolin [Albuterol] Other: See Comments Ventolin MDI does not work, Pro Air works best CURRENT OUTPATIENT MEDICATIONS: atorvastatin (LIPITOR) 20 mg tablet take 1 tablet by mouth once daily guaiFENesin (MUCINEX) 600 mg 12 hr tablet Take 2 tablets by mouth twice daily for 7 days. lansoprazole (PREVACID) 30 mg capsule Take 1 capsule by mouth twice daily before meals (0600/1600). polyethylene glycol 3350 (MIRALAX) 17 gram/dose powder Take 17 g by mouth once daily. sertraline (ZOLOFT) 100 mg tablet Take 2 tablets by mouth once daily. warfarin (COUMADIN) 6 mg tablet TAKE 7MG ON MONDAY, MONDAY, AND MONDAY, AND take 1 tablet by mouth ALL OTHER DAYS glipiZIDE XL (GLUCOTROL XL) 10 mg 24 hr tablet Take 1 tablet by mouth once daily. atenolol (TENORMIN) 50 mg tablet Take 1 tablet by mouth once daily. aspirin, enteric coated (ASPIRIN, ENTERIC COATED) 81 mg EC tablet take 1 tablet by mouth once daily losartan (COZAAR) 100 mg tablet take 1 tablet by mouth once daily oxybutynin ER (DITROPAN XL) 10 mg 24 hr tablet take 1 tablet by mouth once daily metFORMIN ER (GLUCOPHAGE XR) 500 mg 24 hr tablet take 1 tablet by mouth every morning and take 2 tablets every evening ferrous sulfate 325 mg (65 mg iron) tablet Take 1 tablet by mouth twice daily with meals. diclofenac sodium (VOLTAREN) 1 % topical gel Apply 2 g to affected area twice daily as needed. Both heels cyclobenzaprine (FLEXERIL) 10 mg tablet Take 1 tablet by mouth at bedtime as needed for Muscle Spasm. ALPRAZolam (XANAX) 0.25 mg tablet Take 1 tablet by mouth twice daily as needed. triamcinolone acetonide (KENALOG) 0.1 % cream Apply 1 application to affected area once daily as needed. Apply sparingly to eczema on legs. atenolol (TENORMIN) 50 mg tablet Take 50 mg by mouth once daily. POLYETHYLENE GLYCOL 3350 ORAL Take 17 g by mouth once daily. Leg Brace (KNEE SUPPORT BRACE) misc 1 Each continuous. DX: S89.92XA isosorbide mononitrate ER (IMDUR) 30 mg 24 hr tablet take 2 tablets by mouth once daily furosemide (LASIX) 20 mg tablet take 1 tablet by mouth once daily albuterol HFA (PROAIR HFA) 90 mcg/actuation inhaler Inhale 2 Puffs as instructed every 4 hours as needed. Leg Brace (KNEE SUPPORT BRACE) misc 1 Each continuous. warfarin (COUMADIN) 6 mg tablet Take 7 mg Daily nitroglycerin sublingual (NITROSTAT) 0.4 mg SL tablet Dissolve 1 tablet under the tongue as needed. DISSOLVE ON TONGUE FOR CHEST PAIN. IF NO PAIN RELIEF, CALL 911 nystatin (MYCOSTATIN) cream Apply 1 application to affected area twice daily. Groin as needed meclizine (ANTIVERT) 12.5 mg tab Take 1 tablet by mouth three times daily as needed (dizziness). polyethylene glycol 3350 (MIRALAX, GLYCOLAX) 17 gram/dose powder Take 17g dissolved into 8oz of liquid one time daily as needed warfarin (COUMADIN) 1 mg tablet take 1 tablet by mouth once daily COMPOUNDED PRESCRIPTION Aquatherapy at [facility] loratadine (CLARITIN) 10 mg tablet take 1 tablet by mouth once daily traZODone (DESYREL) 50 mg tablet Take 1 tablet by mouth daily at bedtime. COMPOUNDED PRESCRIPTION NEBULIZER SUPPLIES, MEDICATION CUP, TUBING FOR USE WITH NEBULIZER MACHINE DX J40.0 ANDgt;Blood Pressure Cuff Home HOME BP CUFF, DX: HTN LABILE Dx: i10 PHYSICAL EXAMINATION: VITAL SIGNS: BP 142/78 Pulse 68 Ht 5' 3ANDquot; (1.60m) Wt 222 lb 3.2 oz (100.8kg) BMI 39.37 kg/(m2). Chest: Clear to percussion and auscultation. Trachea is midline. Air entry is equal. Cardiac: Regular rhythm. S1 and S2 Are normal for mechanical aortic prosthesis. PMI is nondisplaced. There is a soft systolic ejection murmur. Carotids are brisk without bruits. JVP is less than 10 cm. Abdomen: Soft and nontender. There are no pulsatile masses or bruits. No liver enlargement. Bowel sounds are active. Extremities: Trace edema. Pulses are intact and symmetrical. Echocardiogram was recently reviewed. Left ventricular function is normal. She has moderate LVH, which has increased slightly. There is no significant change in valve gradients. Laboratory studies are due. Electronically Signed: Wade Corado MD June 15, 2017 11:41 AM CC: MD Wade Curiel MD 06/15/2017 11:41 AM Signed LIFESTYLE CHANGE A healthy lifestyle is the most important component of your overall treatment plan. Please give serious thought to the following areas and commit to making repair tech changes. EAT A WHOLE FOOD, PLANT BASED DIET The nutrition your body gets is more important than the medicine you take. What matters most is the overall way you eat. We encourage you to minimize the use of animal products (which include dairy and all meats except fatty fish) and use whole, unprocessed plant foods to provide your protein, vitamins and other nutrients. We have a lot of information to share with you on this topic. We also hold Shared Medical Appointments, where you can come visit with Dr. Corado in the company of other patients and spend over an hour talking about the challenges of changing the way you eat. This is not a ANDquot;dietANDquot;. It is a way of life that you will keep with you. EXERCISE REGULARLY It is not important to spend hours in the gym, lifting weights and perspiring heavily. A total of 2-3 hours per week of aerobic (causing you to be moderately short of breath) exercise is sufficient to improve your health. Talk to us before you begin a new exercise program, if you have heart disease or experience shortness of breath or chest pain. REDUCE STRESS Chronic emotional and physical stress leads to disease. Ways of reducing stress include meditation, visualization, prayer, yoga and other forms of relaxation therapy. Consistency is the cabral. Find a technique that works for you and do it every day. CULTIVATE RELATIONSHIPS Loneliness and isolation have a major negative impact on health. Seek out others who can love, care for and nurture you. Avoid hurtful relationships. MAINTAIN IDEAL BODY WEIGHT The best way to do this is to do all the things above. Our bodies naturally find the right weight if we keep moving and feed ourselves the right food. If your BMI is greater than 25, we strongly recommend a referral to a weight management program. Please speak to us or your family physician about available programs. AVOID NICOTINE IN ALL FORMS This includes all tobacco products, whether chewed, smoked, vaped, or rubbed on the skin. Smoking cessation programs, which can make use of tobacco substitutes, medications to suppress cravings and behavior management, are available. Please contact your family physician about programs in your area. Referring Provider: KERI GAMEZ) [[id number]] Allergies As of Date: 06/15/2017 Noted Allergy Reaction ADVAIR DISKUS (FLUTICASONE-SALMET*05/16/2011 14 - Other: See Comments Comments: CHEST PAIN ASA (SALICYLATES) 05/10/2005 16 - Unknown Comments: patient taking coumadin - on low dose ASA for valve dysfunction CEPHALEXIN 02/21/2008 Comments: Stomach pains-pt. ended up in hospital EKG PADS [Other] 05/10/2005 Comments: adhesive LISINOPRIL 07/03/2014 3 - Cough NEXIUM (ESOMEPRAZOLE MAGNESIUM) 01/26/2016 14 - Other: See Comments Comments: Ineffective OMEPRAZOLE 01/26/2016 14 - Other: See Comments Comments: Ineffective TUDORZA PRESSAIR (ACLIDINIUM BROM*01/26/2016 8 - GI Upset VENTOLIN (ALBUTEROL) 01/26/2016 14 - Other: See Comments Comments: Ventolin MDI does not work, Pro Air works best Date Reviewed: 06/15/2017 Reviewed by: Aly SamuelsRn) KOKO Acosta - Fully Assessed Reason for Visit: Follow Up [171] Cmt: 6 month Primary Visit Diagnosis:S/P AVR [Z95.2] Other Visit Diagnoses:Hypertension, essential [I10] ASHD (arteriosclerotic heart disease) [I25.10] Prescriptions as of 06/15/2017 Sig: ATORVASTATIN 20 MG TABLET take 1 tablet by mouth once d* GUAIFENESIN ER 600 MG TABLET,* Take 2 tablets by mouth twice* LANSOPRAZOLE 30 MG CAPSULE,DE* Take 1 capsule by mouth twice* POLYETHYLENE GLYCOL 3350 17 G* Take 17 g by mouth once daily. SERTRALINE 100 MG TABLET Take 2 tablets by mouth once * WARFARIN 6 MG TABLET TAKE 7MG ON MONDAY, MONDAY* GLIPIZIDE ER 10 MG TABLET, EX* Take 1 tablet by mouth once d* ATENOLOL 50 MG TABLET Take 1 tablet by mouth once d* ASPIRIN 81 MG TABLET,DELAYED * take 1 tablet by mouth once d* LOSARTAN 100 MG TABLET take 1 tablet by mouth once d* OXYBUTYNIN CHLORIDE ER 10 MG * take 1 tablet by mouth once d* METFORMIN ER 500 MG TABLET,EX* take 1 tablet by mouth every * FERROUS SULFATE 325 MG (65 MG* Take 1 tablet by mouth twice * DICLOFENAC 1 % TOPICAL GEL Apply 2 g to affected area tw* CYCLOBENZAPRINE 10 MG TABLET Take 1 tablet by mouth at bed* ALPRAZOLAM 0.25 MG TABLET Take 1 tablet by mouth twice * TRIAMCINOLONE ACETONIDE 0.1 %* Apply 1 application to affect* ATENOLOL 50 MG TABLET Take 50 mg by mouth once trisha* POLYETHYLENE GLYCOL 3350 ORAL Take 17 g by mouth once daily. LEG BRACE 1 Each continuous. DX: S89.92* ISOSORBIDE MONONITRATE ER 30 * take 2 tablets by mouth once * FUROSEMIDE 20 MG TABLET take 1 tablet by mouth once d* ALBUTEROL SULFATE HFA 90 MCG/* Inhale 2 Puffs as instructed * LEG BRACE 1 Each continuous. WARFARIN 6 MG TABLET Take 7 mg Daily NITROGLYCERIN 0.4 MG SUBLINGU* Dissolve 1 tablet under the t* NYSTATIN 100,000 UNIT/GRAM TO* Apply 1 application to affect* MECLIZINE 12.5 MG TABLET Take 1 tablet by mouth three * POLYETHYLENE GLYCOL 3350 17 G* Take 17g dissolved into 8oz o* WARFARIN 1 MG TABLET take 1 tablet by mouth once d* COMPOUNDED PRESCRIPTION Aquatherapy at [facility] LORATADINE 10 MG TABLET take 1 tablet by mouth once d* TRAZODONE 50 MG TABLET Take 1 tablet by mouth daily * COMPOUNDED PRESCRIPTION NEBULIZER SUPPLIES, MEDICATIO* COMPOUNDED PRESCRIPTION HOME BP CUFF, DX: HTN LABILE * Problem List As Of Date 06/15/2017 Noted Resolved AORTOCORONARY BYPASS STATUS [Z95.1] OVERWEIGHT [E66.9] 05/08/2015 ASHD (arteriosclerotic heart disease) [I25.10] INVALID FOR* More... DIABETES MELLITUS TYPE II-UNCOMPL [E11.9] INVALID FOR*02/12/2014 More... HYPERLIPIDEMIA NEC/NOS [E78.5] INVALID FOR*07/24/2015 More... Hematuria [599.7] INVALID FOR*07/24/2015 More... History of mechanical aortic valve replacement *INVALID FOR* More... Abdominal pain, unspecified site [R10.9] INVALID FOR*05/08/2015 Acute gastritis without mention of hemorrhage [*INVALID FOR*01/26/2016 Esophageal reflux [K21.9] INVALID FOR* More... Headache(784.0) [R51] INVALID FOR*01/26/2016 Bronchitis Recurrent [J40] INVALID FOR*03/21/2017 Hallux valgus (acquired) [M20.10] INVALID FOR*07/24/2015 Pain in limb [M79.609] INVALID FOR*01/26/2016 Goiter [E04.9] INVALID FOR* S/P AVR [Z95.2] INVALID FOR*01/26/2016 Multinodular thyroid [E04.2] INVALID FOR* Emphysema of lung (HCC) [J43.9] More... Hyperlipemia [E78.5] INVALID FOR* DM type 2 (diabetes mellitus, type 2) (HCC) [E1*INVALID FOR*05/08/2015 Hematuria [R31.9] INVALID FOR*10/23/2015 Smoking [F17.200] INVALID FOR*10/23/2015 Chronic anticoagulation [Z79.01] INVALID FOR* OAB (overactive bladder) [N32.81] INVALID FOR* More... Frequency of urination [R35.0] INVALID FOR*01/26/2016 Hypertension goal BP (blood pressure) < 140/90 *INVALID FOR* More... Diabetes mellitus type 2, uncontrolled, without*INVALID FOR*03/21/2017 More... Nicole rash of groin [B37.89] INVALID FOR* More... Stress at home [F43.9] INVALID FOR* Insomnia [G47.00] INVALID FOR* Financial difficulties [Z59.8] INVALID FOR* Obesity, Class III, BMI >= 40 (morbid obesity) *INVALID FOR* Hemoptysis [R04.2] INVALID FOR* Priority: A More... 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 Eczema [L30.9] Diabetes mellitus (HCC) [E11.9] Other instructions from your clinician: LIFESTYLE CHANGE A healthy lifestyle is the most important component of your overall treatment plan. Please give serious thought to the following areas and commit to making [facility] changes. EAT A WHOLE FOOD, PLANT BASED DIET The nutrition your body gets is more important than the medicine you take. What matters most is the overall way you eat. We encourage you to minimize the use of animal products (which include dairy and all meats except fatty fish) and use whole, unprocessed plant foods to provide your protein, vitamins and other nutrients. We have a lot of information to share with you on this topic. We also hold Shared Medical Appointments, where you can come visit with Dr. Corado in the company of other patients and spend over an hour talking about the challenges of changing the way you eat. This is not a diet. It is a way of life that you will keep with you. EXERCISE REGULARLY It is not important to spend hours in the gym, lifting weights and perspiring heavily. A total of 2-3 hours per week of aerobic (causing you to be moderately short of breath) exercise is sufficient to improve your health. Talk to us before you begin a new exercise program, if you have heart disease or experience shortness of breath or chest pain. REDUCE STRESS Chronic emotional and physical stress leads to disease. Ways of reducing stress include meditation, visualization, prayer, yoga and other forms of relaxation therapy. Consistency is the cabral. Find a technique that works for you and do it every day. CULTIVATE RELATIONSHIPS Loneliness and isolation have a major negative impact on health. Seek out others who can love, care for and nurture you. Avoid hurtful relationships. MAINTAIN IDEAL BODY WEIGHT The best way to do this is to do all the things above. Our bodies naturally find the right weight if we keep moving and feed ourselves the right food. If your BMI is greater than 25, we strongly recommend a referral to a weight management program. Please speak to us or your family physician about available programs. AVOID NICOTINE IN ALL FORMS This includes all tobacco products, whether chewed, smoked, vaped, or rubbed on the skin. Smoking cessation programs, which can make use of tobacco substitutes, medications to suppress cravings and behavior management, are available. Please contact your family physician about programs in your area. Classic SmartForms filed during this visit: Extended Vitals Encounter Status:Closed by WADE CORADO MD on 06/15/17 PROGRESS Observed: 06/13/2017 Status: COMPLETED Source: [place] 11:51 AM [facility] REPOSITORY HNO ID: [id number] Author: Hiamnshu Green) Sybil Service: (none) Author Type: Registered Nurse Type: Progress Notes Filed: 06/13/2017 11:54 AM Note Text: TC to patient, left message Mucinex refill has been called in and pt is to call PCC back if sx are not improving or if they are getting worse. Himanshu Aquino RN June 13, 2017 11:54 AM PROGRESS Observed: 06/12/2017 Status: COMPLETED Source: [place] 4:55 PM [facility] REPOSITORY HNO ID: [id number] Author: Keri Mo) Vera Service: (none) Author Type: Physician Type: Progress Notes Filed: 06/13/2017 11:54 AM Note Text: rx for mucinex sent. Please have patient notify us if symptoms not improving. PROGRESS Observed: 06/12/2017 Status: COMPLETED Source: [place] 2:57 PM [facility] REPOSITORY HNO ID: [id number] Author: Himanshu Green) Sybil Service: (none) Author Type: Registered Nurse Type: Progress Notes Filed: 06/12/2017 4:38 PM Note Text: PRIMARY CARE COORDINATION FOLLOW-UP NOTE Provider Action/FYI See below Requesting refill on Mucinex Patient identified by name and date of . YES Spoke to patient Summary: Pt finished ATB for COPD exacerbation and will finish steroids tomorrow. Congestion is better, still has productive cough expectorating clear to green/hoover mucous. Reports SOB with doing too much, not with usual activites Would like refill Mucinex because it is helping very much. Pending Prescriptions Disp Refills GUAIFENESIN ER 600 MG TABLET, EXTENDED RELEASE 12 HR 28 tablet 0 Sig: Take 2 tablets by mouth twice daily for 7 days. PATRICK: No BS usually takes FBS. One Hour PP BS-303 FBS 123, 127, 170, 126, 131, 168, 102 BP at home 143/64 But was 122/68 in Urgent Care Instructed to bring BP monitor to check at next appt. Blue Leather Sorter plan for next outreach: Will follow up 2 weeks Signature Himanshu Aquino RN June 12, 2017 TREVTOUTREACH Observed: 06/12/2017 Status: COMPLETED Source: [place] 12:00 AM [facility] REPOSITORY Patient Outreach (FAMPWS) FLAVIA CASE ([id number]) 1950 F Date Time Provider Department 06/12/17 HIMANSHU AQUINO (RN) [facility] During your visit today, we recorded the following information about you: Himanshu Aquino RN 06/12/2017 4:38 PM Signed PRIMARY CARE COORDINATION FOLLOW-UP NOTE Provider Action/FYI See below Requesting refill on Mucinex Patient identified by name and date of . YES Spoke to patient Summary: Pt finished ATB for COPD exacerbation and will finish steroids tomorrow. Congestion is better, still has productive cough expectorating clear to green/hoover mucous. Reports SOB with ANDquot;doing too muchANDquot;, not with usual activites Would like refill Mucinex because it is helping very much. Pending Prescriptions Disp Refills GUAIFENESIN ER 600 MG TABLET, EXTENDED RELEASE 12 HR 28 tablet 0 Sig: Take 2 tablets by mouth twice daily for 7 days. PATRICK: No BS usually takes FBS. One Hour PP BS-303 FBS 123, 127, 170, 126, 131, 168, 102 BP at home 143/64 But was 122/68 in Urgent Care Instructed to bring BP monitor to check at next appt. Blue Leather Sorter plan for next outreach: Will follow up 2 weeks Signature Himanshu Aquino RN June 12, 2017 Keri Gamez MD 06/13/2017 11:54 AM Signed rx for mucinex sent. Please have patient notify us if symptoms not improving. Himanshu Aquino RN 06/13/2017 11:54 AM Signed TC to patient, left message Mucinex refill has been called in and pt is to call PCC back if sx are not improving or if they are getting worse. Himanshu Aquino RN June 13, 2017 11:54 AM Allergies As of Date: 06/12/2017 Noted Allergy Reaction ADVAIR DISKUS (FLUTICASONE-SALMET*05/16/2011 14 - Other: See Comments Comments: CHEST PAIN ASA (SALICYLATES) 05/10/2005 16 - Unknown Comments: patient taking coumadin - on low dose ASA for valve dysfunction CEPHALEXIN 02/21/2008 Comments: Stomach pains-pt. ended up in hospital EKG PADS [Other] 05/10/2005 Comments: adhesive LISINOPRIL 07/03/2014 3 - Cough NEXIUM (ESOMEPRAZOLE MAGNESIUM) 01/26/2016 14 - Other: See Comments Comments: Ineffective OMEPRAZOLE 01/26/2016 14 - Other: See Comments Comments: Ineffective TUDORZA PRESSAIR (ACLIDINIUM BROM*01/26/2016 8 - GI Upset VENTOLIN (ALBUTEROL) 01/26/2016 14 - Other: See Comments Comments: Ventolin MDI does not work, Pro Air works best Date Reviewed: 06/07/2017 Reviewed by: Aurora Calvillo Ma - Fully Assessed Reason for Visit: [facility] [1987] Primary Visit Diagnosis:COPD with exacerbation (HCC) [J44.1] Order(s):guaiFENesin (MUCINEX) 600 mg 12 hr tabletTake 2 tablets by mouth twice daily for 7 days.Disp: 28 tabletRfl: 0 Prescriptions as of 06/12/2017 Sig: GUAIFENESIN ER 600 MG TABLET,* Take 2 tablets by mouth twice* PREDNISONE 10 MG TABLET Take 4 tabs daily for 3 days,* LANSOPRAZOLE 30 MG CAPSULE,DE* Take 1 capsule by mouth twice* POLYETHYLENE GLYCOL 3350 17 G* Take 17 g by mouth once daily. SERTRALINE 100 MG TABLET Take 2 tablets by mouth once * WARFARIN 6 MG TABLET TAKE 7MG ON MONDAY, MONDAY* GLIPIZIDE ER 10 MG TABLET, EX* Take 1 tablet by mouth once d* ATENOLOL 50 MG TABLET Take 1 tablet by mouth once d* ASPIRIN 81 MG TABLET,DELAYED * take 1 tablet by mouth once d* LOSARTAN 100 MG TABLET take 1 tablet by mouth once d* OXYBUTYNIN CHLORIDE ER 10 MG * take 1 tablet by mouth once d* METFORMIN ER 500 MG TABLET,EX* take 1 tablet by mouth every * FERROUS SULFATE 325 MG (65 MG* Take 1 tablet by mouth twice * DICLOFENAC 1 % TOPICAL GEL Apply 2 g to affected area tw* CYCLOBENZAPRINE 10 MG TABLET Take 1 tablet by mouth at bed* ALPRAZOLAM 0.25 MG TABLET Take 1 tablet by mouth twice * TRIAMCINOLONE ACETONIDE 0.1 %* Apply 1 application to affect* ATENOLOL 50 MG TABLET Take 50 mg by mouth once trisha* POLYETHYLENE GLYCOL 3350 ORAL Take 17 g by mouth once daily. LEG BRACE 1 Each continuous. DX: S89.92* ISOSORBIDE MONONITRATE ER 30 * take 2 tablets by mouth once * FUROSEMIDE 20 MG TABLET take 1 tablet by mouth once d* ALBUTEROL SULFATE HFA 90 MCG/* Inhale 2 Puffs as instructed * LEG BRACE 1 Each continuous. WARFARIN 6 MG TABLET Take 7 mg Daily NITROGLYCERIN 0.4 MG SUBLINGU* Dissolve 1 tablet under the t* NYSTATIN 100,000 UNIT/GRAM TO* Apply 1 application to affect* MECLIZINE 12.5 MG TABLET Take 1 tablet by mouth three * POLYETHYLENE GLYCOL 3350 17 G* Take 17g dissolved into 8oz o* WARFARIN 1 MG TABLET take 1 tablet by mouth once d* X ATORVASTATIN 20 MG TABLET Take 1 tablet by mouth once d* COMPOUNDED PRESCRIPTION Aquatherapy at [facility] LORATADINE 10 MG TABLET take 1 tablet by mouth once d* TRAZODONE 50 MG TABLET Take 1 tablet by mouth daily * COMPOUNDED PRESCRIPTION NEBULIZER SUPPLIES, MEDICATIO* COMPOUNDED PRESCRIPTION HOME BP CUFF, DX: HTN LABILE * Problem List As Of Date 06/12/2017 Noted Resolved AORTOCORONARY BYPASS STATUS [Z95.1] OVERWEIGHT [E66.9] 05/08/2015 ASHD (arteriosclerotic heart disease) [I25.10] INVALID FOR* More... DIABETES MELLITUS TYPE II-UNCOMPL [E11.9] INVALID FOR*02/12/2014 More... HYPERLIPIDEMIA NEC/NOS [E78.5] INVALID FOR*07/24/2015 More... Hematuria [599.7] INVALID FOR*07/24/2015 More... History of mechanical aortic valve replacement *INVALID FOR* More... Abdominal pain, unspecified site [R10.9] INVALID FOR*05/08/2015 Acute gastritis without mention of hemorrhage [*INVALID FOR*01/26/2016 Esophageal reflux [K21.9] INVALID FOR* More... Headache(784.0) [R51] INVALID FOR*01/26/2016 Bronchitis Recurrent [J40] INVALID FOR*03/21/2017 Hallux valgus (acquired) [M20.10] INVALID FOR*07/24/2015 Pain in limb [M79.609] INVALID FOR*01/26/2016 Goiter [E04.9] INVALID FOR* S/P AVR [Z95.2] INVALID FOR*01/26/2016 Multinodular thyroid [E04.2] INVALID FOR* Emphysema of lung (HCC) [J43.9] More... Hyperlipemia [E78.5] INVALID FOR* DM type 2 (diabetes mellitus, type 2) (HCC) [E1*INVALID FOR*05/08/2015 Hematuria [R31.9] INVALID FOR*10/23/2015 Smoking [F17.200] INVALID FOR*10/23/2015 Chronic anticoagulation [Z79.01] INVALID FOR* OAB (overactive bladder) [N32.81] INVALID FOR* More... Frequency of urination [R35.0] INVALID FOR*01/26/2016 Hypertension goal BP (blood pressure) < 140/90 *INVALID FOR* More... Diabetes mellitus type 2, uncontrolled, without*INVALID FOR*03/21/2017 More... Nicole rash of groin [B37.89] INVALID FOR* More... Stress at home [F43.9] INVALID FOR* Insomnia [G47.00] INVALID FOR* Financial difficulties [Z59.8] INVALID FOR* Obesity, Class III, BMI >= 40 (morbid obesity) *INVALID FOR* Hemoptysis [R04.2] INVALID FOR* Priority: A More... 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 Eczema [L30.9] Diabetes mellitus (HCC) [E11.9] Prescriptions ordered this encounter Disp Refills Start End GUAIFENESIN ER 600 MG TABLET, EXTEND* 28 t* 0 06/12/2017 06/19/2017 Route: ORAL Sig: Take 2 tablets by mouth twice daily for 7 days. Medications Discontinued During This Encounter guaiFENesin (MUCINEX) 600 mg 12 hr t* 28 t* 0 06/05/2017 06/12/2017 Route: ORAL Sig: Take 2 tablets by mouth twice daily for 7 days. Disc: Reason for discontinue is not on file. Encounter Status:Closed by HIMANSHU AQUINO on 06/13/17 PROGRESS Observed: 06/07/2017 Status: COMPLETED Source: [place] 2:49 PM [facility] REPOSITORY HNO ID: [id number] Author: Jeremi Gregory Service: (none) Author Type: Physician Type: Progress Notes Filed: 06/08/2017 6:14 AM Note Text: Consultation requested by Dr. Gamez for an opinion regarding diabetic foot exam. My final recommendations will be communicated back to the requesting physician by way of shared Medical record or letter to requesting physician via US mail. Initial Office Visit Subjective: This 67 year old female presents to clinic for diabetic foot check. Patient has the following complaints: painful toenails and diabetic foot check. Patient admits to being diabetic for 10-12 years now and states that their blood sugar was 130 mg/dL this AM. Patient -B/T/N in feet at this time. Patient -pain in legs when walking. No other pedal complaints at this time. No change in medications or medical history since last visit. PAIN EVALUATION No data found. Hemoglobin A1C (%) Date Value 03/15/2017 7.2 05/25/2016 7.3 01/20/2016 7.4 10/09/2015 7.3 07/24/2015 7.4 PCP: Keri Gamez MD PAST MEDICAL HISTORY Diagnosis Date - Acute gastritis without mention of hemorrhage - Acute peptic ulcer - Anxiety - ASHD (arteriosclerotic heart disease) Dr. Corado - Benign neoplasm of colon - Carpal tunnel syndrome - COPD (chronic obstructive pulmonary disease) (HCC) - Corns and callosities 02/11/2010 - Dermatophytosis of nail 02/11/2010 - Diabetes mellitus (HCC) - Diaphragmatic hernia without mention of obstruction or gangrene - Eczema - External hemorrhoids without mention of complication - Hirsutism 10/21/2010 - Hyperlipidemia - Hypertension - Internal hemorrhoids without mention of complication - Lung cancer (HCC) 09/[address] Lizarraga. Stage I squamous cell s/p radiation - Multinodular thyroid benign - Obesity, unspecified - Overactive bladder Dr. Recio - Postsurgical aortocoronary bypass status triple bypass, aortic valve replacement - Pulmonary hypertension - S/P AVR - Seasonal allergies - Squamous cell carcinoma neck, back, leg, left lung - Toe deformity 02/11/2010 Current Outpatient Prescriptions: predniSONE (DELTASONE) 10 mg tablet Take 4 tabs daily for 3 days, then 2 tabs daily for 3 days, then 1 tab daily for 3 days with food. azithromycin (ZITHROMAX Z-FANNIE) 250 mg tablet Take 2 tablets day one, then, 1 tablet daily until gone. guaiFENesin (MUCINEX) 600 mg 12 hr tablet Take 2 tablets by mouth twice daily for 7 days. lansoprazole (PREVACID) 30 mg capsule Take 1 capsule by mouth twice daily before meals (0600/1600). polyethylene glycol 3350 (MIRALAX) 17 gram/dose powder Take 17 g by mouth once daily. warfarin (COUMADIN) 6 mg tablet TAKE 7MG ON MONDAY, MONDAY, AND MONDAY, AND take 1 tablet by mouth ALL OTHER DAYS glipiZIDE XL (GLUCOTROL XL) 10 mg 24 hr tablet Take 1 tablet by mouth once daily. atenolol (TENORMIN) 50 mg tablet Take 1 tablet by mouth once daily. aspirin, enteric coated (ASPIRIN, ENTERIC COATED) 81 mg EC tablet take 1 tablet by mouth once daily losartan (COZAAR) 100 mg tablet take 1 tablet by mouth once daily oxybutynin ER (DITROPAN XL) 10 mg 24 hr tablet take 1 tablet by mouth once daily metFORMIN ER (GLUCOPHAGE XR) 500 mg 24 hr tablet take 1 tablet by mouth every morning and take 2 tablets every evening ferrous sulfate 325 mg (65 mg iron) tablet Take 1 tablet by mouth twice daily with meals. diclofenac sodium (VOLTAREN) 1 % topical gel Apply 2 g to affected area twice daily as needed. Both heels triamcinolone acetonide (KENALOG) 0.1 % cream Apply 1 application to affected area once daily as needed. Apply sparingly to eczema on legs. atenolol (TENORMIN) 50 mg tablet Take 50 mg by mouth once daily. Leg Brace (KNEE SUPPORT BRACE) misc 1 Each continuous. DX: S89.92XA isosorbide mononitrate ER (IMDUR) 30 mg 24 hr tablet take 2 tablets by mouth once daily furosemide (LASIX) 20 mg tablet take 1 tablet by mouth once daily albuterol HFA (PROAIR HFA) 90 mcg/actuation inhaler Inhale 2 Puffs as instructed every 4 hours as needed. Leg Brace (KNEE SUPPORT BRACE) misc 1 Each continuous. warfarin (COUMADIN) 6 mg tablet Take 7 mg Daily nitroglycerin sublingual (NITROSTAT) 0.4 mg SL tablet Dissolve 1 tablet under the tongue as needed. DISSOLVE ON TONGUE FOR CHEST PAIN. IF NO PAIN RELIEF, CALL 911 nystatin (MYCOSTATIN) cream Apply 1 application to affected area twice daily. Groin as needed meclizine (ANTIVERT) 12.5 mg tab Take 1 tablet by mouth three times daily as needed (dizziness). polyethylene glycol 3350 (MIRALAX, GLYCOLAX) 17 gram/dose powder Take 17g dissolved into 8oz of liquid one time daily as needed warfarin (COUMADIN) 1 mg tablet take 1 tablet by mouth once daily atorvastatin (LIPITOR) 20 mg tablet Take 1 tablet by mouth once daily. Per Outcome recc. loratadine (CLARITIN) 10 mg tablet take 1 tablet by mouth once daily traZODone (DESYREL) 50 mg tablet Take 1 tablet by mouth daily at bedtime. COMPOUNDED PRESCRIPTION NEBULIZER SUPPLIES, MEDICATION CUP, TUBING FOR USE WITH NEBULIZER MACHINE DX J40.0 >Blood Pressure Cuff Home HOME BP CUFF, DX: HTN LABILE Dx: i10 sertraline (ZOLOFT) 100 mg tablet Take 2 tablets by mouth once daily. cyclobenzaprine (FLEXERIL) 10 mg tablet Take 1 tablet by mouth at bedtime as needed for Muscle Spasm. ALPRAZolam (XANAX) 0.25 mg tablet Take 1 tablet by mouth twice daily as needed. POLYETHYLENE GLYCOL 3350 ORAL Take 17 g by mouth once daily. COMPOUNDED PRESCRIPTION [facility] at [facility] No current facility-administered medications for this visit. ALLERGIES Allergen Reactions - Advair Diskus [Flut* Other: See Comments CHEST PAIN - Asa [Salicylates] Unknown patient taking coumadin - on low dose ASA for valve dysfunction - Cephalexin Stomach pains-pt. ended up in hospital - Ekg Pads [Other] adhesive - Lisinopril Cough - Nexium [Esomeprazol* Other: See Comments Ineffective - Omeprazole Other: See Comments Ineffective - Tudorza Pressair [A* GI Upset - Ventolin [Albuterol] Other: See Comments Ventolin MDI does not work, Pro Air works best PAST SURGICAL HISTORY Procedure Laterality Date - CABG, ARTERY-VEIN, THREE 1996 CABG, three grafts, replace heart valve - DELIVERY ONLY x3 - COLONOSCOP W/ OR W/O [facility] SPEC 01/02/2001, 09/21/2005 Colonoscopy - COLONOSCOP W/ OR W/O [facility] SPEC 04/26/06 - EGD W/O OR W/BRUSH/WASH 04/26/06 - EGD W/O OR W/BRUSH/WASH 01/12/1984 EGD with biopsy of antral ulcer - LAPAROSCOPIC CHOLEYCYSTECTOMY 09-06-12 - PAST SURGICAL HISTORY OF skin cancer from knee / benign spot from back - PAST SURGICAL HISTORY OF cataract removal bilateral - TOTAL ABDOM HYSTERECTOMY 1978 for endometriosis, ovaries spared FAMILY HISTORY Problem Relation Age of Onset - Heart Father - Heart Mother - Thyroid Mother Goiter - Diabetes Maternal Grandfather - stomach cancer [OTHER] Sister Adenocarcinoma - Heart Daughter - Colon Cancer Sister 52 Social History Marital status: Spouse name: Years of education: Number of children: 3 Occupational History Occupation Employer Comment [employer]* Just a few months. 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 Ex-spouse of 38 years also a smoker. Alcohol use: No Drug use: No Sexual activity: No Comment: Social History Narrative Born [place], moved [facility] 1958 age 9. 4 years in current home[place]. Dry basement. Electric baseboard heat. No central A/C, uses window units. No pets in home currently. Bird and dog not replaced at deaths 13 years ago. SSI and medical card. Watches 2 grandkids, 9/16 in 2012. REVIEW OF SYSTEMS GENERAL: Negative for Malaise, significant weight loss, fever RESPIRATORY: Negative for cough, wheezing and shortness of breath CARDIOVASCULAR: Negative for chest pain, leg swelling and palpitations GI: Negative for abdominal discomfort, blood in stools or black stools and change in bowel habits : Negative for dysuria, frequency and incontinence MUSCULOSKELETAL: Negative for joint pain or swelling, back pain, and muscle pain. SKIN: Negative for lesions, rash, and itching. HEMATOLOGY/LYMPHOLOGY Negative for prolonged bleeding, bruising easily, and swollen nodes. ENDOCRINE: Negative for cold or heat intolerance, polyuria, polydipsia and goiter. NEURO: negative The remainder of the review of systems is noncontributory. Objective: Patient presents to clinic ambulating in dress shoes Constitutional: Pt is a well developed 67 year old female who is alert, oriented, cooperative and in no apparent distress. Eyes: Following during examination. No redness or drainage. Respiratory: RR normal and nonlabored. Even breathing. No evidence of distress. Psychology: Patient is engaged during conversation. Normal affect and mood. Does not appear depressed or anxious. Vasc: DP and PT pulses are palpable bilateral. CFT is less than 5 seconds bilateral. Skin temperature is warm to warm proximal to distal bilateral. There is no edema or varicosities noted. Hair growth present. Neuro: Protective sensation is intact to the foot and toes when tested with the 5.07 SWM bilateral. Vibratory sensation is decreased at the hallux bilateral. No Significant neurological defecits. Derm: Inspection and palpation performed. Nails 1-5 b/l are painful, discolored-yellow, thick, crumbly, dystrophic and with subungal debris. Skin is of normal turgor and texture. Hyperkeratosis noted to no. NO ulcerations, scars, verruca or other lesions noted. Ortho: Ankle joint DF is full with the knee extended and full with knee flexed. No pain or crepitus noted. STJ, MTJ ROM are full and free of pain or crepitus. Muscle strength is 5/5 for dorsiflexors, plantarflexors, inverters, everters. Digital deformities include hammertoe of b/l 5th toe. Assessment: (B35.1) Onychomycosis (primary encounter diagnosis) (M79.675) Pain in toe of left foot (M79.674) Pain in toe of right foot (M20.41, M20.42) Hammer toes of both feet (E11.49) Other diabetic neurological complication associated with type 2 diabetes mellitus (HCC) Plan: 1. Patient was seen and evaluated. 2. Patient was instructed on the continued importance of diabetic foot care along with proper diet and keeping their blood sugar under control to prevent complications. Instructions given both oral and written. 3. Patient toenails 1-5 b/l were debrided in length and thickness 4. Diabetic shoes ordered. 5. F/u in 3 months for nail care Jeremi Gregory DPM PROGRESS Observed: 06/05/2017 Status: COMPLETED Source: [facility] 3:33 PM [facility] REPOSITORY HNO ID: [id number] Author: Maribell Adler (Planer Setup Operator) TREV Nicolas Service: (none) Author Type: Nurse Practitioner Type: Progress Notes Filed: 06/05/2017 3:48 PM Note Text: HPI Patient presents with: Chest Congestion: cough x 3 days States did receive flu vaccine this season. Hx of COPD, Lung CA, bronchitis and pneumonia. Review of Systems Constitutional: Positive for chills and malaise/fatigue. Negative for fever. HENT: Positive for congestion. Negative for ear pain and sore throat. Eyes: Negative for discharge and redness. Respiratory: Positive for cough, sputum production (green/yellow) and wheezing. Negative for hemoptysis and shortness of breath. Gastrointestinal: Negative for abdominal pain, diarrhea, nausea and vomiting. Musculoskeletal: Positive for myalgias. Skin: Negative for rash. Neurological: Negative for headaches. PAST MEDICAL HISTORY Diagnosis Date - Acute gastritis without mention of hemorrhage - Acute peptic ulcer - Anxiety - ASHD (arteriosclerotic heart disease) Dr. Corado - Benign neoplasm of colon - Carpal tunnel syndrome - COPD (chronic obstructive pulmonary disease) (HCC) - Corns and callosities 02/11/2010 - Dermatophytosis of nail 02/11/2010 - Diabetes mellitus (HCC) - Diaphragmatic hernia without mention of obstruction or gangrene - Eczema - External hemorrhoids without mention of complication - Hirsutism 10/21/2010 - Hyperlipidemia - Hypertension - Internal hemorrhoids without mention of complication - Lung cancer (HCC) 09/[address] Videtic. Stage I squamous cell s/p radiation - Multinodular thyroid benign - Obesity, unspecified - Overactive bladder Dr. Recio - Postsurgical aortocoronary bypass status triple bypass, aortic valve replacement - Pulmonary hypertension - S/P AVR - Seasonal allergies - Squamous cell carcinoma neck, back, leg, left lung - Toe deformity 02/11/2010 PAST SURGICAL HISTORY Procedure Laterality Date - CABG, ARTERY-VEIN, THREE 1996 CABG, three grafts, replace heart valve - DELIVERY ONLY x3 - COLONOSCOP W/ OR W/O [facility] SPEC 01/02/2001, 09/21/2005 Colonoscopy - COLONOSCOP W/ OR W/O [facility] SPEC 04/26/06 - EGD W/O OR W/BRUSH/WASH 04/26/06 - EGD W/O OR W/BRUSH/WASH 01/12/1984 EGD with biopsy of antral ulcer - LAPAROSCOPIC CHOLEYCYSTECTOMY 09-06-12 - PAST SURGICAL HISTORY OF skin cancer from knee / benign spot from back - PAST SURGICAL HISTORY OF cataract removal bilateral - TOTAL ABDOM HYSTERECTOMY 1978 for endometriosis, ovaries spared ALLERGIES Advair Diskus [Fluticasone-Salmeterol]; Asa [Salicylates]; Cephalexin; Ekg Pads [Other]; Lisinopril; Nexium [Esomeprazole Magnesium]; Omeprazole; Tudorza Pressair [Aclidinium Gypsum]; Ventolin [Albuterol] MEDICATIONS lansoprazole (PREVACID) 30 mg capsule Take 1 capsule by mouth twice daily before meals (0600/1600). polyethylene glycol 3350 (MIRALAX) 17 gram/dose powder Take 17 g by mouth once daily. sertraline (ZOLOFT) 100 mg tablet Take 2 tablets by mouth once daily. warfarin (COUMADIN) 6 mg tablet TAKE 7MG ON MONDAY, MONDAY, AND MONDAY, AND take 1 tablet by mouth ALL OTHER DAYS glipiZIDE XL (GLUCOTROL XL) 10 mg 24 hr tablet Take 1 tablet by mouth once daily. atenolol (TENORMIN) 50 mg tablet Take 1 tablet by mouth once daily. aspirin, enteric coated (ASPIRIN, ENTERIC COATED) 81 mg EC tablet take 1 tablet by mouth once daily losartan (COZAAR) 100 mg tablet take 1 tablet by mouth once daily oxybutynin ER (DITROPAN XL) 10 mg 24 hr tablet take 1 tablet by mouth once daily metFORMIN ER (GLUCOPHAGE XR) 500 mg 24 hr tablet take 1 tablet by mouth every morning and take 2 tablets every evening ferrous sulfate 325 mg (65 mg iron) tablet Take 1 tablet by mouth twice daily with meals. diclofenac sodium (VOLTAREN) 1 % topical gel Apply 2 g to affected area twice daily as needed. Both heels cyclobenzaprine (FLEXERIL) 10 mg tablet Take 1 tablet by mouth at bedtime as needed for Muscle Spasm. ALPRAZolam (XANAX) 0.25 mg tablet Take 1 tablet by mouth twice daily as needed. atenolol (TENORMIN) 50 mg tablet Take 50 mg by mouth once daily. POLYETHYLENE GLYCOL 3350 ORAL Take 17 g by mouth once daily. guaiFENesin (MUCINEX) 600 mg 12 hr tablet Take 2 tablets by mouth twice daily. Leg Brace (KNEE SUPPORT BRACE) misc 1 Each continuous. DX: S89.92XA isosorbide mononitrate ER (IMDUR) 30 mg 24 hr tablet take 2 tablets by mouth once daily furosemide (LASIX) 20 mg tablet take 1 tablet by mouth once daily albuterol HFA (PROAIR HFA) 90 mcg/actuation inhaler Inhale 2 Puffs as instructed every 4 hours as needed. Leg Brace (KNEE SUPPORT BRACE) misc 1 Each continuous. warfarin (COUMADIN) 6 mg tablet Take 7 mg Daily nitroglycerin sublingual (NITROSTAT) 0.4 mg SL tablet Dissolve 1 tablet under the tongue as needed. DISSOLVE ON TONGUE FOR CHEST PAIN. IF NO PAIN RELIEF, CALL 911 nystatin (MYCOSTATIN) cream Apply 1 application to affected area twice daily. Groin as needed meclizine (ANTIVERT) 12.5 mg tab Take 1 tablet by mouth three times daily as needed (dizziness). polyethylene glycol 3350 (MIRALAX, GLYCOLAX) 17 gram/dose powder Take 17g dissolved into 8oz of liquid one time daily as needed warfarin (COUMADIN) 1 mg tablet take 1 tablet by mouth once daily atorvastatin (LIPITOR) 20 mg tablet Take 1 tablet by mouth once daily. Per Outcome recc. COMPOUNDED PRESCRIPTION [facility] at [facility] loratadine (CLARITIN) 10 mg tablet take 1 tablet by mouth once daily traZODone (DESYREL) 50 mg tablet Take 1 tablet by mouth daily at bedtime. COMPOUNDED PRESCRIPTION NEBULIZER SUPPLIES, MEDICATION CUP, TUBING FOR USE WITH NEBULIZER MACHINE DX J40.0 >Blood Pressure Cuff Home HOME BP CUFF, DX: HTN LABILE Dx: i10 triamcinolone acetonide (KENALOG) 0.1 % cream Apply 1 application to affected area once daily as needed. Apply sparingly to eczema on legs. FAMILY HISTORY Problem Relation Age of Onset - Heart Father - Heart Mother - Thyroid Mother Goiter - Diabetes Maternal Grandfather - stomach cancer [OTHER] Sister Adenocarcinoma - Heart Daughter - Colon Cancer Sister 52 Social History Substance Use Topics - Smoking status: Former Smoker Packs/day: 2.00 Years: 36.00 Types: Cigarettes Start date: 1962 Quit date: 06/28/1995 - Smokeless tobacco: Never Used Comment: Both parents smoked in childhood home. Ex-spouse of 38 years also a smoker. - Alcohol use No Physical Exam Constitutional: She is well-developed, well-nourished, and in no distress. HENT: Head: Normocephalic. Right Ear: Tympanic membrane, external ear and ear canal normal. Left Ear: Tympanic membrane, external ear and ear canal normal. Nose: Rhinorrhea present. Right sinus exhibits no maxillary sinus tenderness and no frontal sinus tenderness. Left sinus exhibits no maxillary sinus tenderness and no frontal sinus tenderness. Mouth/Throat: Posterior oropharyngeal erythema (injected with PND) present. Eyes: Conjunctivae are normal. Neck: Normal range of motion. Neck supple. Cardiovascular: Normal rate, regular rhythm and normal heart sounds. Pulmonary/Chest: Effort normal and breath sounds normal. No respiratory distress. She has no wheezes. She has no rhonchi. She has no rales. Abdominal: Soft. She exhibits no distension. There is no tenderness. Lymphadenopathy: She has no cervical adenopathy. Skin: Skin is warm and dry. No rash noted. Nursing note and vitals reviewed. ASSESSMENT/PLAN: 1. COPD with exacerbation (HCC) - ICD9: 491.21, ICD10: J44.1 -Zpak -Prednisone -Mucinex -cont. Home inhalers -supportive care, rest, fluids, analgesics PRN -F/u with pcp in 3-5 days or sooner if symptoms are not improving or worsening Prescription instructions reviewed with patient as applicable. Patient advised if symptoms do not improve or if symptoms worsen sooner, to contact their primary care physician. Potential red flag symptoms discussed with the patient. Reviewed appropriate action plan to take if red flag symptoms occur. Patient agreeable to treatment plan. Maribell Nicolas CNP PROGRESS Observed: 06/02/2017 Status: COMPLETED Source: [facility] 3:07 PM [facility] REPOSITORY HNO ID: [id number] Author: Nena Malloy Psr Service: (none) Author Type: (none) Type: Progress Notes Filed: 06/02/2017 3:07 PM Note Text: Called and got patient scheduled for a mammogram PROGRESS Observed: 05/31/2017 Status: COMPLETED Source: [facility] 10:29 AM [facility] REPOSITORY HNO ID: [id number] Author: Himanshu Green) Sybil Service: (none) Author Type: Registered Nurse Type: Progress Notes Filed: 06/01/2017 12:41 PM Note Text: TC to patient, informed Prevacid has been called in, PCP will await pt calling insurance regarding antidepressant, PCC will call next week for BP and BS and appt made for Dr. Gregory for 06/07. Himanshu Aquino RN May 31, 2017 10:30 AM PROGRESS Observed: 05/31/2017 Status: COMPLETED Source: [facility] 10:09 AM [facility] REPOSITORY HNO ID: [id number] Author: Keri Gamez Service: (none) Author Type: Physician Type: Progress Notes Filed: 06/01/2017 12:41 PM Note Text: Rx approved and pantoprazole discontinued. Would like patient to follow up with Dr. Gregory for foot care, referral order placed. Will await BP and glucose readings. PROGRESS Observed: 05/31/2017 Status: COMPLETED Source: [facility] 9:33 AM [facility] REPOSITORY HNO ID: [id number] Author: Himanshu Green) Sybil Service: (none) Author Type: Registered Nurse Type: Progress Notes Filed: 05/31/2017 9:59 AM Note Text: PRIMARY CARE COORDINATION FOLLOW-UP NOTE Provider Action/FYI PLEASE SEE BELOW, MULTIPLE ISSUES Patient identified by name and date of . YES Spoke to patient Concerns: 1. Pt's insurance now covers Prevacid and pt would like to go back on that. It worked much better for her. Having stomach pain and burning with pantoprazole 2. Pt wants to stop Zoloft because it has a warning that it can cause increased bleeding and pt has had bleeding ulcers in the past Instructed pt to call her insurance company and ask which antidepressants they will cover. 3. BP has been running higher. Last BP was 147/67. She has not kept log of BPs but states it's been higher than 140's Asked pt to keep log of BP and PCC will call next week. States when she had her ECHO her BP was 180 4. BS ranging 130's-150's before meals. Instructed to keep log 5. Reminded pt of upcoming lab work ordered and pt needs a mammogram, which is ordered. Pt also due for Diabetic Foot exam. States Dr. Montana told pt she didn't need to come to machine clothing worker for nail trims and foot check Do you want pt scheduled with Dr. Gregory? 6. 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 YES Spoke to patient Concerns: 1. Pt's insurance now covers Prevacid and pt would like to go back on that. It worked much better for her. Having stomach pain and burning with pantoprazole 2. Pt wants to stop Zoloft because it has a warning that it can cause increased bleeding and pt has had bleeding ulcers in the past Instructed pt to call her insurance company and ask which antidepressants they will cover. 3. BP has been running higher. Last BP was 147/67. She has not kept log of BPs but states it's been higher than 140's Asked pt to keep log of BP and PCC will call next week. States when she had her ECHO her BP was 180 4. BS ranging 130's-150's before meals. Instructed to keep log 5. Reminded pt of upcoming lab work ordered and pt needs a mammogram, which is ordered. Pt also due for Diabetic Foot exam. States Dr. Montana told pt she didn't need to come to machine clothing worker for nail trims and foot check Do you want pt scheduled with Dr. Gregory? 6. COPD is at baseline [employer] Sorter plan for next outreach: Will follow up one week Signature Himanshu Aquino RN May 31, 2017 Keri Gamez MD 06/01/2017 12:41 PM Signed Rx approved and pantoprazole discontinued. Would like patient to follow up with Dr. Gregory for foot care, referral order placed. Will await BP and glucose readings. Himanshu Aquino RN 06/01/2017 12:41 PM Signed TC to patient, informed Prevacid has been called in, PCP will await pt calling insurance regarding antidepressant, PCC will call next week for BP and BS and appt made for Dr. Gregory for 06/07. Himanshu Aquino RN May 31, 2017 10:30 AM Nena Malloy Psr 06/02/2017 3:07 PM Signed Called and got patient scheduled for a mammogram Allergies As of Date: 05/31/2017 Noted Allergy Reaction ADVAIR DISKUS (FLUTICASONE-SALMET*05/16/2011 14 - Other: See Comments Comments: CHEST PAIN ASA (SALICYLATES) 05/10/2005 16 - Unknown Comments: patient taking coumadin - on low dose ASA for valve dysfunction CEPHALEXIN 02/21/2008 Comments: Stomach pains-pt. ended up in hospital EKG PADS [Other] 05/10/2005 Comments: adhesive LISINOPRIL 07/03/2014 3 - Cough NEXIUM (ESOMEPRAZOLE MAGNESIUM) 01/26/2016 14 - Other: See Comments Comments: Ineffective OMEPRAZOLE 01/26/2016 14 - Other: See Comments Comments: Ineffective TUDORZA PRESSAIR (ACLIDINIUM BROM*01/26/2016 8 - GI Upset JANY (ALBUTEROL) 01/26/2016 14 - Other: See Comments Comments: Jany ONEALI does not work, Pro Air works best Date Reviewed: 05/29/2017 Reviewed by: Brenda Darby RN - Fully Assessed Reason for Visit: Crown Buffer - Patient Initiated [3614] Primary Visit Diagnosis:Hemoptysis [R04.2] Other Visit Diagnoses:Gastroesophageal reflux disease, esophagitis presence not specified [K21.9] Type 2 diabetes mellitus without complication, without long-term current use of insulin (HCC) [E11.9] Order(s):lansoprazole (PREVACID) 30 mg capsuleTake 1 capsule by mouth twice daily before meals (0600/1600).Disp: 180 capsuleRfl: 3 CONSULT TO PODIATRY [9034] Order #: [id number]: 1 Prescriptions as of 05/31/2017 Sig: LANSOPRAZOLE 30 MG CAPSULE,DE* Take 1 capsule by mouth twice* POLYETHYLENE GLYCOL 3350 17 G* Take 17 g by mouth once daily. SERTRALINE 100 MG TABLET Take 2 tablets by mouth once * WARFARIN 6 MG TABLET TAKE 7MG ON MONDAY, MONDAY* GLIPIZIDE ER 10 MG TABLET, EX* Take 1 tablet by mouth once d* ATENOLOL 50 MG TABLET Take 1 tablet by mouth once d* ASPIRIN 81 MG TABLET,DELAYED * take 1 tablet by mouth once d* LOSARTAN 100 MG TABLET take 1 tablet by mouth once d* OXYBUTYNIN CHLORIDE ER 10 MG * take 1 tablet by mouth once d* METFORMIN ER 500 MG TABLET,EX* take 1 tablet by mouth every * FERROUS SULFATE 325 MG (65 MG* Take 1 tablet by mouth twice * DICLOFENAC 1 % TOPICAL GEL Apply 2 g to affected area tw* CYCLOBENZAPRINE 10 MG TABLET Take 1 tablet by mouth at bed* ALPRAZOLAM 0.25 MG TABLET Take 1 tablet by mouth twice * TRIAMCINOLONE ACETONIDE 0.1 %* Apply 1 application to affect* ATENOLOL 50 MG TABLET Take 50 mg by mouth once trisha* POLYETHYLENE GLYCOL 3350 ORAL Take 17 g by mouth once daily. GUAIFENESIN ER 600 MG TABLET,* Take 2 tablets by mouth twice* LEG BRACE 1 Each continuous. DX: S89.92* ISOSORBIDE MONONITRATE ER 30 * take 2 tablets by mouth once * FUROSEMIDE 20 MG TABLET take 1 tablet by mouth once d* ALBUTEROL SULFATE HFA 90 MCG/* Inhale 2 Puffs as instructed * LEG BRACE 1 Each continuous. WARFARIN 6 MG TABLET Take 7 mg Daily NITROGLYCERIN 0.4 MG SUBLINGU* Dissolve 1 tablet under the t* NYSTATIN 100,000 UNIT/GRAM TO* Apply 1 application to affect* MECLIZINE 12.5 MG TABLET Take 1 tablet by mouth three * POLYETHYLENE GLYCOL 3350 17 G* Take 17g dissolved into 8oz o* Patient not taking: Reported on 03/21/2017 WARFARIN 1 MG TABLET take 1 tablet by mouth once d* ATORVASTATIN 20 MG TABLET Take 1 tablet by mouth once d* COMPOUNDED PRESCRIPTION [facility] Patient not taking: Reported on 03/21/2017 LORATADINE 10 MG TABLET take 1 tablet by mouth once d* TRAZODONE 50 MG TABLET Take 1 tablet by mouth daily * Patient not taking: Reported on 03/21/2017 COMPOUNDED PRESCRIPTION NEBULIZER SUPPLIES, MEDICATIO* COMPOUNDED PRESCRIPTION HOME BP CUFF, DX: HTN LABILE * Problem List As Of Date 05/31/2017 Noted Resolved AORTOCORONARY BYPASS STATUS [Z95.1] OVERWEIGHT [E66.9] 05/08/2015 ASHD (arteriosclerotic heart disease) [I25.10] INVALID FOR* More... DIABETES MELLITUS TYPE II-UNCOMPL [E11.9] INVALID FOR*02/12/2014 More... HYPERLIPIDEMIA NEC/NOS [E78.5] INVALID FOR*07/24/2015 More... Hematuria [599.7] INVALID FOR*07/24/2015 More... History of mechanical aortic valve replacement *INVALID FOR* More... Abdominal pain, unspecified site [R10.9] INVALID FOR*05/08/2015 Acute gastritis without mention of hemorrhage [*INVALID FOR*01/26/2016 Esophageal reflux [K21.9] INVALID FOR* More... Headache(784.0) [R51] INVALID FOR*01/26/2016 Bronchitis Recurrent [J40] INVALID FOR*03/21/2017 Hallux valgus (acquired) [M20.10] INVALID FOR*07/24/2015 Pain in limb [M79.609] INVALID FOR*01/26/2016 Goiter [E04.9] INVALID FOR* S/P AVR [Z95.2] INVALID FOR*01/26/2016 Multinodular thyroid [E04.2] INVALID FOR* Emphysema of lung (HCC) [J43.9] More... Hyperlipemia [E78.5] INVALID FOR* DM type 2 (diabetes mellitus, type 2) (HCC) [E1*INVALID FOR*05/08/2015 Hematuria [R31.9] INVALID FOR*10/23/2015 Smoking [F17.200] INVALID FOR*10/23/2015 Chronic anticoagulation [Z79.01] INVALID FOR* OAB (overactive bladder) [N32.81] INVALID FOR* More... Frequency of urination [R35.0] INVALID FOR*01/26/2016 Hypertension goal BP (blood pressure) < 140/90 *INVALID FOR* More... Diabetes mellitus type 2, uncontrolled, without*INVALID FOR*03/21/2017 More... Nicole rash of groin [B37.89] INVALID FOR* More... Stress at home [F43.9] INVALID FOR* Insomnia [G47.00] INVALID FOR* Financial difficulties [Z59.8] INVALID FOR* Obesity, Class III, BMI >= 40 (morbid obesity) *INVALID FOR* Hemoptysis [R04.2] INVALID FOR* Priority: A More... 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 Eczema [L30.9] Diabetes mellitus (HCC) [E11.9] Prescriptions ordered this encounter Disp Refills Start End LANSOPRAZOLE 30 MG CAPSULE,DELAYED R* 180 * 3 05/31/2017 Route: ORAL Sig: Take 1 capsule by mouth twice daily before meals (0600/1600). Medications Discontinued During This Encounter pantoprazole DR (PROTONIX) 40 mg tab* 30 t* 5 12/15/2016 05/31/2017 Route: ORAL Sig: Take 1 tablet by mouth once daily. Disc: Reason for discontinue is not on file. Encounter Status:Closed by HIMANSHU AQUINO on 06/01/17 PROGRESS Observed: 05/29/2017 Status: COMPLETED Source: [place] 12:12 PM [facility] REPOSITORY HNO ID: [id number] Author: Keri Mo) Vera Service: (none) Author Type: Physician Type: Progress Notes Filed: 05/29/2017 12:13 PM Note Text: INR therapeutic. Continue current coumadin dosage and follow up in 2 weeks. PROGRESS Observed: 05/29/2017 Status: COMPLETED Source: [place] 11:56 AM [facility] REPOSITORY HNO ID: [id number] Author: Brenda Darby RN Service: (none) Author Type: (none) Type: Progress Notes Filed: 05/29/2017 11:58 AM Note Text: patient had inr completed at [facility] patients inr is 3.6 (patients inr range is 3.0-4.0) patient is currently taking 7mg daily patients last dose change unsure at this time due to formerly followed by cardio patient has had no changes in medication and no change in diet FYI - last week patient had a high inr of 4.5 patient was to hold 1 dose and then resume back on the 7mg Advised patient to continue on the same dose(s) and that they would only be contacted regarding dosage and follow up instructions after review with provider, if a change is needed. Written instructions given and patient verbalized understanding. Presently scheduled in 2 weeks (06/15/17) for follow up INR since this is the first normal reading after prior high reading. PROGRESS Observed: 05/25/2017 Status: COMPLETED Source: [place] 10:29 AM [facility] REPOSITORY HNO ID: [id number] Author: Himanshu Aquino Service: (none) Author Type: Registered Nurse Type: Progress Notes Filed: 05/25/2017 10:31 AM Note Text: TC to patient, instructed to double Zoloft to 200 mg daily. Pt can double pills she has at home and PCP will send refill when she get low. Pt to call with side effects or if anxiety symptoms aren't improving within 4-6 weeks, verbalized understanding and agreement. Himanshu Aquino RN May 25, 2017 10:30 AM PROGRESS Observed: 05/23/2017 Status: COMPLETED Source: [place] 2:41 PM [facility] REPOSITORY HNO ID: [id number] Author: Keri Mo) Vera Service: (none) Author Type: Physician Type: Progress Notes Filed: 05/25/2017 10:31 AM Note Text: Zoloft updated to increase dose to 200 mg daily. May double up on pills at home and will send in refill when she starts to run low. To call with side effects or if anxiety symptoms not improving in 4-6 weeks. PROGRESS Observed: 05/23/2017 Status: COMPLETED Source: [place] 10:33 AM [facility] REPOSITORY HNO ID: [id number] Author: Himanshu Green) Sybil Service: (none) Author Type: Registered Nurse Type: Progress Notes Filed: 05/23/2017 2:33 PM Note Text: TC from pt, discussed increasing Zoloft for anxiety instead of Xanax. Pt states when she gets anxious she sits and worries and frets about issues and xanax helps her to not worry so much. Pt states she is willing to try increase in Zoloft. She is worried about side effects if it is increased too much. Instructed to call PCC if pt notes side effects, verbalized agreement. Instructed to watch diet, ice and analgesics for shoulder pain, verbalized agreement. Discussed cough, states it's not a sick cough, it's a chronic cough where she has to expectorate mucous from bronchials Only occurs infrequently. Encouraged to call if cough gets worse, verbalized agreement. Patient phones requesting refills as follows: States she takes it daily. Pending Prescriptions Disp Refills POLYETHYLENE GLYCOL 3350 17 GRAM/DOSE ORAL POWDER 510 g 5 Sig: Take 17 g by mouth once daily. PATRICK: No Please review and advise. KOKO Hopson RN May 23, 2017 2:29 PM TC to daughter, left message for patient to call me back re: a prescription, verbalized agreement. Himanshu Aquino RN May 23, 2017 10:36 AM PROGRESS Observed: 05/22/2017 Status: COMPLETED Source: [place] 3:32 PM [facility] REPOSITORY HNO ID: [id number] Author: Brenda Darby RN Service: (none) Author Type: (none) Type: Progress Notes Filed: 05/22/2017 3:33 PM Note Text: PATIENT NOTIFIED OF INFORMATION PROGRESS Observed: 05/22/2017 Status: COMPLETED Source: [place] 1:15 PM [facility] REPOSITORY HNO ID: [id number] Author: Keri Gamez Service: (none) Author Type: Physician Type: Progress Notes Filed: 05/22/2017 1:15 PM Note Text: INR supratherapeutic. Hold next dose and continue current dosage of coumadin. Repeat in 1 week. Please confirm patient has not had recent change to medications and that she is taking coumadin as prescribed. HOSP Observed: 05/22/2017 Status: COMPLETED Source: [place] 1:15 PM [facility] REPOSITORY Anticoagulation Visit (COUMWS) FLAVIA CASE ([id number]) 1950 F Date Time Provider Department 05/22/17 1:15 PM [facility] COUMWS During your visit today, we recorded the following information about you: Brenda Darby RN 05/22/2017 1:13 PM Signed patient had inr completed at [facility] patients inr is 4.5 (patients inr range is 3.0-4.0) patient is currently taking 7mg daily patients last dose change unsure at this time due to formerly followed by cardio patient has had no changes in medication and no change in diet Advised patient that they would be contacted regarding medication dose and when to follow up after information is reviewed by provider. After provider review please contact the patient with information and schedule follow up appointment with coumadin clinic. Keri Gamez MD 05/22/2017 1:15 PM Signed INR supratherapeutic. Hold next dose and continue current dosage of coumadin. Repeat in 1 week. Please confirm patient has not had recent change to medications and that she is taking coumadin as prescribed. Brenda Darby RN 05/22/2017 3:33 PM Signed PATIENT NOTIFIED OF INFORMATION Referring Provider: KERI GAMEZ) [[id number]] Allergies As of Date: 05/22/2017 Noted Allergy Reaction ADVAIR DISKUS (FLUTICASONE-SALMET*05/16/2011 14 - Other: See Comments Comments: CHEST PAIN ASA (SALICYLATES) 05/10/2005 16 - Unknown Comments: patient taking coumadin - on low dose ASA for valve dysfunction CEPHALEXIN 02/21/2008 Comments: Stomach pains-pt. ended up in hospital EKG PADS [Other] 05/10/2005 Comments: adhesive LISINOPRIL 07/03/2014 3 - Cough NEXIUM (ESOMEPRAZOLE MAGNESIUM) 01/26/2016 14 - Other: See Comments Comments: Ineffective OMEPRAZOLE 01/26/2016 14 - Other: See Comments Comments: Ineffective TUDORZA PRESSAIR (ACLIDINIUM BROM*01/26/2016 8 - GI Upset VENTOLIN (ALBUTEROL) 01/26/2016 14 - Other: See Comments Comments: Ventolin MDI does not work, Pro Air works best Date Reviewed: 05/22/2017 Reviewed by: Brenda Darby RN - Fully Assessed Reason for Visit: Anticoagulation [8] Visit Diagnosis:History of mechanical aortic valve replacement [Z98.890, Z95.2] Order(s):INR (POC) [[id number]] Order #: [id number]. #:[id number] Prescriptions as of 05/22/2017 Sig: WARFARIN 6 MG TABLET TAKE 7MG ON MONDAY, MONDAY* SERTRALINE 100 MG TABLET take 1 tablet by mouth once d* GLIPIZIDE ER 10 MG TABLET, EX* Take 1 tablet by mouth once d* ATENOLOL 50 MG TABLET Take 1 tablet by mouth once d* ASPIRIN 81 MG TABLET,DELAYED * take 1 tablet by mouth once d* LOSARTAN 100 MG TABLET take 1 tablet by mouth once d* OXYBUTYNIN CHLORIDE ER 10 MG * take 1 tablet by mouth once d* METFORMIN ER 500 MG TABLET,EX* take 1 tablet by mouth every * FERROUS SULFATE 325 MG (65 MG* Take 1 tablet by mouth twice * DICLOFENAC 1 % TOPICAL GEL Apply 2 g to affected area tw* CYCLOBENZAPRINE 10 MG TABLET Take 1 tablet by mouth at bed* ALPRAZOLAM 0.25 MG TABLET Take 1 tablet by mouth twice * TRIAMCINOLONE ACETONIDE 0.1 %* Apply 1 application to affect* ATENOLOL 50 MG TABLET Take 50 mg by mouth once trisha* POLYETHYLENE GLYCOL 3350 ORAL Take 17 g by mouth once daily. POLYETHYLENE GLYCOL 3350 17 G* Take 17 g by mouth once daily. GUAIFENESIN ER 600 MG TABLET,* Take 2 tablets by mouth twice* PANTOPRAZOLE 40 MG TABLET,DEL* Take 1 tablet by mouth once d* LEG BRACE 1 Each continuous. DX: S89.92* ISOSORBIDE MONONITRATE ER 30 * take 2 tablets by mouth once * FUROSEMIDE 20 MG TABLET take 1 tablet by mouth once d* ALBUTEROL SULFATE HFA 90 MCG/* Inhale 2 Puffs as instructed * LEG BRACE 1 Each continuous. WARFARIN 6 MG TABLET Take 7 mg Daily NITROGLYCERIN 0.4 MG SUBLINGU* Dissolve 1 tablet under the t* NYSTATIN 100,000 UNIT/GRAM TO* Apply 1 application to affect* MECLIZINE 12.5 MG TABLET Take 1 tablet by mouth three * POLYETHYLENE GLYCOL 3350 17 G* Take 17g dissolved into 8oz o* Patient not taking: Reported on 03/21/2017 WARFARIN 1 MG TABLET take 1 tablet by mouth once d* ATORVASTATIN 20 MG TABLET Take 1 tablet by mouth once d* COMPOUNDED PRESCRIPTION [facility] Patient not taking: Reported on 03/21/2017 LORATADINE 10 MG TABLET take 1 tablet by mouth once d* TRAZODONE 50 MG TABLET Take 1 tablet by mouth daily * Patient not taking: Reported on 03/21/2017 COMPOUNDED PRESCRIPTION NEBULIZER SUPPLIES, MEDICATIO* COMPOUNDED PRESCRIPTION HOME BP CUFF, DX: HTN LABILE * Problem List As Of Date 05/22/2017 Noted Resolved AORTOCORONARY BYPASS STATUS [Z95.1] OVERWEIGHT [E66.9] 05/08/2015 ASHD (arteriosclerotic heart disease) [I25.10] INVALID FOR* More... DIABETES MELLITUS TYPE II-UNCOMPL [E11.9] INVALID FOR*02/12/2014 More... HYPERLIPIDEMIA NEC/NOS [E78.5] INVALID FOR*07/24/2015 More... Hematuria [599.7] INVALID FOR*07/24/2015 More... History of mechanical aortic valve replacement *INVALID FOR* More... Abdominal pain, unspecified site [R10.9] INVALID FOR*05/08/2015 Acute gastritis without mention of hemorrhage [*INVALID FOR*01/26/2016 Esophageal reflux [K21.9] INVALID FOR* More... Headache(784.0) [R51] INVALID FOR*01/26/2016 Bronchitis Recurrent [J40] INVALID FOR*03/21/2017 Hallux valgus (acquired) [M20.10] INVALID FOR*07/24/2015 Pain in limb [M79.609] INVALID FOR*01/26/2016 Goiter [E04.9] INVALID FOR* S/P AVR [Z95.2] INVALID FOR*01/26/2016 Multinodular thyroid [E04.2] INVALID FOR* Emphysema of lung (HCC) [J43.9] More... Hyperlipemia [E78.5] INVALID FOR* DM type 2 (diabetes mellitus, type 2) (HCC) [E1*INVALID FOR*05/08/2015 Hematuria [R31.9] INVALID FOR*10/23/2015 Smoking [F17.200] INVALID FOR*10/23/2015 Chronic anticoagulation [Z79.01] INVALID FOR* OAB (overactive bladder) [N32.81] INVALID FOR* More... Frequency of urination [R35.0] INVALID FOR*01/26/2016 Hypertension goal BP (blood pressure) < 140/90 *INVALID FOR* More... Diabetes mellitus type 2, uncontrolled, without*INVALID FOR*03/21/2017 More... Nicole rash of groin [B37.89] INVALID FOR* More... Stress at home [F43.9] INVALID FOR* Insomnia [G47.00] INVALID FOR* Financial difficulties [Z59.8] INVALID FOR* Obesity, Class III, BMI >= 40 (morbid obesity) *INVALID FOR* Hemoptysis [R04.2] INVALID FOR* Priority: A More... 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 Eczema [L30.9] Diabetes mellitus (HCC) [E11.9] Follow-up and Disposition History Recorded Encounter Status:Closed by BRENDA DARBY RN on 05/22/17 PROGRESS Observed: 05/22/2017 Status: COMPLETED Source: [place] 1:12 PM [facility] [place] REPOSITORY O ID: [id number] Author: Brenda Darby RN Service: (none) Author Type: (none) Type: Progress Notes Filed: 05/22/2017 1:13 PM Note Text: patient had inr completed at [facility] patients inr is 4.5 (patients inr range is 3.0-4.0) patient is currently taking 7mg daily patients last dose change unsure at this time due to formerly followed by cardio patient has had no changes in medication and no change in diet Advised patient that they would be contacted regarding medication dose and when to follow up after information is reviewed by provider. After provider review please contact the patient with information and schedule follow up appointment with coumadin clinic. PROGRESS Observed: 05/22/2017 Status: COMPLETED Source: [place] 8:06 AM [facility] REPOSITORY HNO ID: [id number] Author: Keri Mo) Vera Service: (none) Author Type: Physician Type: Progress Notes Filed: 05/22/2017 8:08 AM Note Text: If her anxiety is uncontrolled with current dose of Zoloft would recommend increase. This typically improves symptoms and I do not typically prescribed xanax [facility] for anxiety symptoms. What symptoms is she experiencing that she needs xanax for. Agree with bringing in BP monitor to next visit. BS slightly elevated prior to meals, continue working on diet. Ice and OTC analgesics for shoulder. OV for cough if not controlled with OTC medications. PROGRESS Observed: 05/19/2017 Status: COMPLETED Source: [place] 4:50 PM [facility] REPOSITORY HNO ID: [id number] Author: Himanshu Green) Sybil Service: (none) Author Type: Registered Nurse Type: Progress Notes Filed: 05/19/2017 5:03 PM Note Text: PRIMARY CARE COORDINATION FOLLOW-UP NOTE Provider Action/FYI Please note below Patient identified by name and date of . YES Spoke to patient Summary: 1. Reports some SOB when she doesn't pace activities Occasional productive cough, expectorating clear to yellow mucous No chest pain 2. Reports pain in mid shoulder blade. States it feels like a pulled muscle and happened 6 weeks ago. States pain is slowly improving. 3. States she takes xanax as needed. Received 60 tablets on 03/21 and has 8 tablets left. Pt is worried about not being able to get refill. Doesn't feel increasing Zoloft will help 4. Taking BP at home, states it's 130-150/60-70. Pt is unsure about accuracy. Instructed to bring monitor to next MD appt. Instructed positioning and resting at least 5 minutes before taking BP, verbalized understanding. 5. BS ranging 130-140 before meals and 160's at hs [employer] plan for next outreach: Will follow up one month Signature Himanshu Aquino RN May 19, 2017 TREVTOUTREACH Observed: 05/19/2017 Status: COMPLETED Source: [place] 12:00 AM [facility] REPOSITORY Patient Outreach (FAMPWS) FLAVIA CASE ([id number]) 1950 F Date Time Provider Department 05/19/17 HIMANSHU AQUINO (RN) LUCÍAWS During your visit today, we recorded the following information about you: Himanshu Aquino RN 05/19/2017 5:03 PM Signed PRIMARY CARE COORDINATION FOLLOW-UP NOTE Provider Action/FYI Please note below Patient identified by name and date of . YES Spoke to patient Summary: 1. Reports some SOB when she doesn't pace activities Occasional productive cough, expectorating clear to yellow mucous No chest pain 2. Reports pain in mid shoulder blade. States it feels like a pulled muscle and happened 6 weeks ago. States pain is slowly improving. 3. States she takes xanax as needed. Received 60 tablets on 03/21 and has 8 tablets left. Pt is worried about not being able to get refill. Doesn't feel increasing Zoloft will help 4. Taking BP at home, states it's 130-150/60-70. Pt is unsure about accuracy. Instructed to bring monitor to next MD appt. Instructed positioning and resting at least 5 minutes before taking BP, verbalized understanding. 5. BS ranging 130-140 before meals and 160's at hs [employer] plan for next outreach: Will follow up one month Signature Himanshu Aquino RN May 19, 2017 Keri Gamez MD 05/22/2017 8:08 AM Signed If her anxiety is uncontrolled with current dose of Zoloft would recommend increase. This typically improves symptoms and I do not typically prescribed xanax [facility] for anxiety symptoms. What symptoms is she experiencing that she needs xanax for. Agree with bringing in BP monitor to next visit. BS slightly elevated prior to meals, continue working on diet. Ice and OTC analgesics for shoulder. OV for cough if not controlled with OTC medications. Himanshu Aquino RN 05/23/2017 2:33 PM Signed TC from pt, discussed increasing Zoloft for anxiety instead of Xanax. Pt states when she gets anxious she sits and worries and frets about issues and xanax helps her to not worry so much. Pt states she is willing to try increase in Zoloft. She is worried about side effects if it is increased too much. Instructed to call PCC if pt notes side effects, verbalized agreement. Instructed to watch diet, ice and analgesics for shoulder pain, verbalized agreement. Discussed cough, states it's not a ANDquot;sickANDquot; cough, it's a chronic cough where she has to expectorate mucous ANDquot;from bronchialsANDquot; Only occurs infrequently. Encouraged to call if cough gets worse, verbalized agreement. Patient phones requesting refills as follows: States she takes it daily. Pending Prescriptions Disp Refills POLYETHYLENE GLYCOL 3350 17 GRAM/DOSE ORAL POWDER 510 g 5 Sig: Take 17 g by mouth once daily. PATRICK: No Please review and advise. KOKO Hopson RN May 23, 2017 2:29 PM TC to daughter, left message for patient to call me back re: a prescription, verbalized agreement. Himanshu Aquino RN May 23, 2017 10:36 AM Keri Gamez MD 05/25/2017 10:31 AM Signed Zoloft updated to increase dose to 200 mg daily. May double up on pills at home and will send in refill when she starts to run low. To call with side effects or if anxiety symptoms not improving in 4-6 weeks. Himanshu Aquino RN 05/25/2017 10:31 AM Signed TC to patient, instructed to double Zoloft to 200 mg daily. Pt can double pills she has at home and PCP will send refill when she get low. Pt to call with side effects or if anxiety symptoms aren't improving within 4-6 weeks, verbalized understanding and agreement. Himanshu Aquino RN May 25, 2017 10:30 AM Allergies As of Date: 05/19/2017 Noted Allergy Reaction ADVAIR DISKUS (FLUTICASONE-SALMET*05/16/2011 14 - Other: See Comments Comments: CHEST PAIN ASA (SALICYLATES) 05/10/2005 16 - Unknown Comments: patient taking coumadin - on low dose ASA for valve dysfunction CEPHALEXIN 02/21/2008 Comments: Stomach pains-pt. ended up in hospital EKG PADS [Other] 05/10/2005 Comments: adhesive LISINOPRIL 07/03/2014 3 - Cough NEXIUM (ESOMEPRAZOLE MAGNESIUM) 01/26/2016 14 - Other: See Comments Comments: Ineffective OMEPRAZOLE 01/26/2016 14 - Other: See Comments Comments: Ineffective TUDORZA PRESSAIR (ACLIDINIUM BROM*01/26/2016 8 - GI Upset VENTOLIN (ALBUTEROL) 01/26/2016 14 - Other: See Comments Comments: Ventolin MDI does not work, Pro Air works best Date Reviewed: 03/21/2017 Reviewed by: Pepito Li Ma - Fully Assessed Reason for Visit: [facility] [9689] Order(s):polyethylene glycol 3350 (MIRALAX) 17 gram/dose powderTake 17 g by mouth once daily.Disp: 510 gRfl: 5 sertraline (ZOLOFT) 100 mg tabletTake 2 tablets by mouth once daily.Disp: 90 tabletRfl: 1 Prescriptions as of 05/19/2017 Sig: POLYETHYLENE GLYCOL 3350 17 G* Take 17 g by mouth once daily. SERTRALINE 100 MG TABLET Take 2 tablets by mouth once * WARFARIN 6 MG TABLET TAKE 7MG ON MONDAY, MONDAY* GLIPIZIDE ER 10 MG TABLET, EX* Take 1 tablet by mouth once d* ATENOLOL 50 MG TABLET Take 1 tablet by mouth once d* ASPIRIN 81 MG TABLET,DELAYED * take 1 tablet by mouth once d* LOSARTAN 100 MG TABLET take 1 tablet by mouth once d* OXYBUTYNIN CHLORIDE ER 10 MG * take 1 tablet by mouth once d* METFORMIN ER 500 MG TABLET,EX* take 1 tablet by mouth every * FERROUS SULFATE 325 MG (65 MG* Take 1 tablet by mouth twice * DICLOFENAC 1 % TOPICAL GEL Apply 2 g to affected area tw* CYCLOBENZAPRINE 10 MG TABLET Take 1 tablet by mouth at bed* ALPRAZOLAM 0.25 MG TABLET Take 1 tablet by mouth twice * TRIAMCINOLONE ACETONIDE 0.1 %* Apply 1 application to affect* ATENOLOL 50 MG TABLET Take 50 mg by mouth once trisha* POLYETHYLENE GLYCOL 3350 ORAL Take 17 g by mouth once daily. GUAIFENESIN ER 600 MG TABLET,* Take 2 tablets by mouth twice* PANTOPRAZOLE 40 MG TABLET,DEL* Take 1 tablet by mouth once d* LEG BRACE 1 Each continuous. DX: S89.92* ISOSORBIDE MONONITRATE ER 30 * take 2 tablets by mouth once * FUROSEMIDE 20 MG TABLET take 1 tablet by mouth once d* ALBUTEROL SULFATE HFA 90 MCG/* Inhale 2 Puffs as instructed * LEG BRACE 1 Each continuous. WARFARIN 6 MG TABLET Take 7 mg Daily NITROGLYCERIN 0.4 MG SUBLINGU* Dissolve 1 tablet under the t* NYSTATIN 100,000 UNIT/GRAM TO* Apply 1 application to affect* MECLIZINE 12.5 MG TABLET Take 1 tablet by mouth three * POLYETHYLENE GLYCOL 3350 17 G* Take 17g dissolved into 8oz o* Patient not taking: Reported on 03/21/2017 WARFARIN 1 MG TABLET take 1 tablet by mouth once d* ATORVASTATIN 20 MG TABLET Take 1 tablet by mouth once d* COMPOUNDED PRESCRIPTION [facility] Patient not taking: Reported on 03/21/2017 LORATADINE 10 MG TABLET take 1 tablet by mouth once d* TRAZODONE 50 MG TABLET Take 1 tablet by mouth daily * Patient not taking: Reported on 03/21/2017 COMPOUNDED PRESCRIPTION NEBULIZER SUPPLIES, MEDICATIO* COMPOUNDED PRESCRIPTION HOME BP CUFF, DX: HTN LABILE * Problem List As Of Date 05/19/2017 Noted Resolved AORTOCORONARY BYPASS STATUS [Z95.1] OVERWEIGHT [E66.9] 05/08/2015 ASHD (arteriosclerotic heart disease) [I25.10] INVALID FOR* More... DIABETES MELLITUS TYPE II-UNCOMPL [E11.9] INVALID FOR*02/12/2014 More... HYPERLIPIDEMIA NEC/NOS [E78.5] INVALID FOR*07/24/2015 More... Hematuria [599.7] INVALID FOR*07/24/2015 More... History of mechanical aortic valve replacement *INVALID FOR* More... Abdominal pain, unspecified site [R10.9] INVALID FOR*05/08/2015 Acute gastritis without mention of hemorrhage [*INVALID FOR*01/26/2016 Esophageal reflux [K21.9] INVALID FOR* More... Headache(784.0) [R51] INVALID FOR*01/26/2016 Bronchitis Recurrent [J40] INVALID FOR*03/21/2017 Hallux valgus (acquired) [M20.10] INVALID FOR*07/24/2015 Pain in limb [M79.609] INVALID FOR*01/26/2016 Goiter [E04.9] INVALID FOR* S/P AVR [Z95.2] INVALID FOR*01/26/2016 Multinodular thyroid [E04.2] INVALID FOR* Emphysema of lung (HCC) [J43.9] More... Hyperlipemia [E78.5] INVALID FOR* DM type 2 (diabetes mellitus, type 2) (HCC) [E1*INVALID FOR*05/08/2015 Hematuria [R31.9] INVALID FOR*10/23/2015 Smoking [F17.200] INVALID FOR*10/23/2015 Chronic anticoagulation [Z79.01] INVALID FOR* OAB (overactive bladder) [N32.81] INVALID FOR* More... Frequency of urination [R35.0] INVALID FOR*01/26/2016 Hypertension goal BP (blood pressure) < 140/90 *INVALID FOR* More... Diabetes mellitus type 2, uncontrolled, without*INVALID FOR*03/21/2017 More... Nicole rash of groin [B37.89] INVALID FOR* More... Stress at home [F43.9] INVALID FOR* Insomnia [G47.00] INVALID FOR* Financial difficulties [Z59.8] INVALID FOR* Obesity, Class III, BMI >= 40 (morbid obesity) *INVALID FOR* Hemoptysis [R04.2] INVALID FOR* Priority: A More... 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 Eczema [L30.9] Diabetes mellitus (HCC) [E11.9] Prescriptions ordered this encounter Disp Refills Start End POLYETHYLENE GLYCOL 3350 17 GRAM/DOS* 510 g 5 05/23/2017 Route: ORAL Sig: Take 17 g by mouth once daily. SERTRALINE 100 MG TABLET 90 t* 1 05/23/2017 Class: Med Update Route: ORAL Sig: Take 2 tablets by mouth once daily. Medications Discontinued During This Encounter polyethylene glycol 3350 (MIRALAX) 1* 1 Tony* 2 03/21/2017 05/23/2017 Route: ORAL Sig: Take 17 g by mouth once daily. Disc: Reason for discontinue is not on file. sertraline (ZOLOFT) 100 mg tablet 90 t* 1 05/19/2017 05/23/2017 Sig: take 1 tablet by mouth once daily Disc: Reason for discontinue is not on file. Encounter Status:Closed by HIMANSHU AQUINO on 05/25/17 ALLERGIES ALLERGIES DATE TYPE / CODE NAME / CODE REACTION SEVERITY SOURCE Drug fluticasone CHEST PAIN Unknown [place] 8 Allergy/[id number]( propionate/[id number] [facility] SNOMED CT) 3593(RXNORM) Hospital Repository Drug salmeterol chest pains Unknown [place] 8 Allergy/[id number]( xinafoate/[id number] [facility] SNOMED CT) 037(RXNORM) Hospital Repository Drug cephalexin abdominal Unknown [place] 8 Allergy/[id number]( monohydrate/F0000 cramping [facility] SNOMED CT) 56624(RXNORM) Hospital Repository Drug albuterol/[id number] jittery Unknown [place] 8 Allergy/875225537( 814(RXNORM) [facility] SNOMED CT) Hospital Repository Drug adhesive/[id number] Rash Unknown [place] 8 Allergy/606566467( 45(RXNORM) [facility] SNOMED CT) Hospital Repository Drug gabapentin/X08269 Swelling of Unknown [place] 8 Allergy/931412980( 4415(RXNORM) [facility] SNOM[facility] Hospital Repository Drug pregabalin/D50994 makes me slow Unknown [place] 8 Allergy/669948676( 0083(RXNORM) to respond [facility] SNOMED CT) Hospital Repository Drug diltiazem/C582683 Other Unknown [place] 8 Allergy/208413956( 514(RXNORM) [facility] SNOMED CT) Hospital Repository DRUG ALBUTEROL SULFATE OTHER: SEE [place] 8 INGREDI/159077747( Clinic Main SNOMED CT) [place] Repository DRUG ESOMEPRAZOLE OTHER: SEE C [place] 6 INGREDI/537879011( MAGNESIUM Clinic Other SNOMED CT) [place] Repository DRUG OMEPRAZOLE OTHER: SEE [facility] 6 INGREDI/281466790( Clinic Other SNOMED CT) [place] Repository DRUG ACLIDINIUM GI UPSET [place] 6 INGREDI/545304989( BROMIDE Clinic Other SNOMED CT) [place] Repository DRUG ALBUTEROL OTHER: SEE C [place] 6 INGREDI/135729511( Clinic Other SNOMED CT) [place] Repository DRUG LISINOPRIL COUGH [place] 5 INGREDI/245662351( Clinic Other SNOMED CT) [place] Repository DRUG/540146583(SNO FLUTICASONE-SALME OTHER: SEE [facility] [address] TEROL Clinic Other [place] Repository DRUG CEPHALEXIN [place] 8 INGREDI/501020763( Clinic Other SNOMED CT) [place] Repository Drug SALICYLATES UNKNOWN [place] 6 Class/012568789(SN Clinic Other OMED CT) [place] Repository Miscellaneous OTHER [place] 6 Allergy/192379152( Clinic Other SNOMED CT) [place] Repository NG/554693422(SNOME FLUTICASONE-SALME [facility] D [facility]) [facility] Repository NG/766290291(SNOME SALICYLATES [facility] D [facility]) [facility] Repository NG/213442401(SNOME CEPHALEXIN [facility] D [facility]) [facility] Repository NG/984330244(SNOME OTHER [facility] D CT) [facility] System Repository NG/227540600(SNOME LISINOPRIL [facility] D CT) [facility] System Repository NG/054801342(SNOME ESOMEPRAZOLE [facility] D CT) MAGNESIUM [facility] Repository NG/145628712(SNOME OMEPRAZOLE [facility] D CT) [facility] System Repository NG/902895051(SNOME ACLIDINIUM [facility] D CT) BROMIDE [facility] Repository NG/623732146(SNOME ALBUTEROL [facility] D CT) Health System Repository ENCOUNTERS ENCOUNTERS ADMIT/DISCHARGE ACCOUNT NUMBER ADMITTING ENCOUNTER LOCATION SOURCE CLASS 05/11/2018/05/15/19 [id number] Ambulatory [address] Main [place] Repository 05/11/2018 [id number] Ambulatory BMSBuilding: [place] BMS.[facility] Repository 05/11/2018/05/15/19 [id number] Ambulatory [address] Main [place] Repository 05/11/2018/05/11/19 [id number] Ambulatory [address] [place] Repository 05/11/2018/05/11/19 [id number] Inpatient [address] [place] Repository 05/11/2018/05/14/19 [id number] Ambulatory [address] Main [place] Repository 05/10/2018/05/10/19 [id number] Ambulatory [address] [place] Repository 05/09/2018/05/09/19 [id number] Ambulatory [address] [place] Repository 05/09/2018/05/09/19 [id number] Ambulatory [address] [place] Repository 05/09/2018/05/09/19 [id number] Ambulatory [address] Repository 05/09/2018 [id number] SANJUANA, Inpatient [facility] Repository 05/08/2018/05/08/19 [id number] Emergency [address] ding:ED Repository 05/04/2018/05/04/19 [id number] Ambulatory [address] [place] Repository 05/01/2018/05/02/19 [id number] Ambulatory [address] Repository 05/01/2018/05/02/19 [id number] Ambulatory [address] Repository 04/20/2018/04/25/19 [id number] Agyepong, Inpatient [address] ding:BV6Arni Repository : CT464Awv: 1 04/20/2018 [id number] Agyepong, Ambulatory BMSBuilding: [place] BMS.[facility] Repository 04/20/2018 [id number] Agyepong, Ambulatory BMSBuilding: [place] BMS.[facility] Repository 04/20/2018 [id number] Agyepong, Ambulatory BMSBuilding: [place] BMS.[facility] Repository 04/20/2018 [id number] Agyepong, Ambulatory BMSBuilding: [place] BMS.[facility] Repository 04/20/2018 [id number] Agyepong, Ambulatory BMSBuilding: [place] BMS.[facility] Repository 04/20/2018 [id number] Agyepong, Ambulatory BMSBuilding: [place] BMS.[facility] Repository 04/20/2018 [id number] Agyepong, Ambulatory BMSBuilding: [place] BMS.[facility] Repository 04/20/2018 [id number] Agyepong, Ambulatory BMSBuilding: [place] BMS.[facility] Repository 04/20/2018 [id number] Agyepong, Ambulatory BMSBuilding: [place] BMS.[facility] Repository 04/20/2018 [id number] Agyepong, Ambulatory BMSBuilding: [place] BMS.[facility] Repository 04/20/2018/04/25/19 [id number] Ambulatory BMSBuilding: [place] [facility] Repository 04/18/2018 [id number] Agyepong, Ambulatory BMSBuilding: [place] BMS.[facility] Repository 04/18/2018 [id number] Agyepong, Ambulatory BMSBuilding: [place] BMS..[facility] Repository 04/18/2018 [id number] Agyepong, Ambulatory BMSBuilding: [place] BMS.[facility] Repository 04/18/2018 [id number] Agyepong, Ambulatory BMSBuilding: [place] BMS..[facility] Repository 04/18/2018 [id number] Agyepong, Ambulatory BMSBuilding: [place] BMS.[facility] Repository 04/10/2018/04/13/20 [id number] Sementi, Inpatient [place] [facility] ding:PCURoom Repository : PHM123Nhl: 1 04/10/2018 [id number] Sementi, Ambulatory BMSBuilding: [place] Sandra BMS.[facility] Repository 04/10/2018 [id number] Sementi, Ambulatory BMSBuilding: [place] Sandra BMS.[facility] Repository 04/07/2018 [id number] Sementi, Ambulatory BMSBuilding: [place] Sandra BMS.[facility] Repository 04/07/2018 [id number] Sementi, Ambulatory BMSBuilding: [place] BMS.[facility] Repository 04/07/2018 [id number] Sementi, Ambulatory BMSBuilding: [place] BMS.[facility] Repository 04/07/2018 [id number] Sementi, Ambulatory BMSBuilding: [place] BMS.[facility] Repository 04/07/2018 [id number] Sementi, Ambulatory BMSBuilding: [place] Sandra BMS.[facility] Repository 04/07/2018 [id number] Ambulatory BMSBuilding: [facility] Repository 04/07/2018 [id number] Ambulatory BMSBuilding: [facility] Repository 03/26/2018/03/28/20 [id number] Ambulatory BMSBuilding: [address] Repository 03/26/2018/03/28/20 [id number] Ambulatory BMSBuilding: [address] Repository 03/26/2018/03/28/20 [id number] Ambulatory BMSBuilding: [address] Repository 03/26/2018/03/28/20 [id number] Ana Bradford Inpatient [address] ding:PCURoom Repository : FLV760Odm: 1 03/26/2018 [id number] Ana Bradford Ambulatory BMSBuilding: [place] Allie BMS.[facility] Repository 03/26/2018 [id number] Ana Bradford Ambulatory BMSBuilding: [place] Allie BMS.[facility] Repository 03/26/2018 [id number] Ana Bradford Ambulatory BMSBuilding: [place] Allie BMS.[facility] Repository 03/26/2018 [id number] Ana Bradford Ambulatory BMSBuilding: [place] Allie BMS.[facility] Repository 02/01/2018/02/02/20 [id number] Ambulatory [address] Repository 02/01/2018/02/02/20 [id number] Ambulatory [facility] [place] Repository 01/24/2018/02/07/20 [id number] Ambulatory [facility] [place] Repository 01/23/2018/01/24/20 [id number] Ambulatory [facility] [place] Repository 01/23/2018/01/24/20 [id number] Ambulatory [facility] [place] Repository 01/15/2018/01/16/20 [id number] Ambulatory [facility] [place] Repository 01/08/2018/01/10/20 [id number] Ambulatory [facility] [place] Repository 12/22/2017/12/27/19 [id number] Ambulatory [facility] [place] Repository 12/19/2017/12/21/19 [id number] Ambulatory [facility] [place] Repository 12/19/2017/12/21/19 [id number] Ambulatory [facility] [place] Repository 12/19/2017 [id number] Ambulatory [facility] MEDICAL Repository CENTERBuildi ng:CAGWS 12/15/2017/12/19/19 [id number] Ambulatory [facility] [place] Repository 12/08/2017/12/13/19 [id number] Ambulatory [facility] [place] Repository 12/08/2017/12/12/19 [id number] Ambulatory [facility] [place] Repository 11/07/2017/11/09/19 [id number] Ambulatory [facility] [place] Repository 10/24/2017/10/27/19 [id number] Ambulatory [facility] [place] Repository 10/24/2017/10/27/19 [id number] Ambulatory [facility] [place] Repository 10/10/2017/10/12/19 [id number] Ambulatory [facility] [place] Repository 10/03/2017/10/05/19 [id number] Ambulatory [facility] [place] Repository 10/03/2017 [id number] Ambulatory [facility] [place] Repository 08/17/2017/08/19/19 [id number] Ambulatory [facility] [place] Repository 08/15/2017/08/17/19 [id number] Ambulatory [facility] [place] Repository 07/28/2017/08/01/19 [id number] Ambulatory [facility] [place] Repository 07/26/2017/07/28/19 [id number] Ambulatory [facility] [place] Repository 07/25/2017/07/26/19 [id number] Ambulatory [facility] [place] Repository 07/11/2017/07/13/19 [id number] Ambulatory [facility] [place] Repository 06/28/2017/06/30/19 [id number] Ambulatory [facility] [place] Repository 06/28/2017/06/30/19 [id number] Ambulatory [facility] [place] Repository 06/22/2017/06/24/19 [id number] Ambulatory [facility] [place] Repository 06/16/2017 [id number] Ambulatory [facility] [place] Repository 06/16/2017/06/16/19 [id number] Ambulatory [facility] [place] Repository 06/15/2017/06/16/19 [id number] Ambulatory [address] Main [place] Repository 06/15/2017/06/15/19 [id number] Ambulatory [address] Other [place] Repository 06/15/2017/06/15/19 [id number] Ambulatory DORA [address] MEDICAL [place]ository [place] 06/07/2017/06/14/19 [id number] Ambulatory [address] Main [place] Repository 06/05/2017/06/05/19 [id number] Ambulatory [address] Main [place] Repository 05/29/2017/05/30/19 [id number] Ambulatory [address] Main [place] Repository 05/24/2017/05/29/19 [id number] Ambulatory [address] Main [place] Repository 05/22/2017/05/23/19 [id number] Ambulatory [address] Main [place] Repository PAYERS PAYERS ENCOUNTER GUARANTOR PAYER SUBSCRIBER SOURCE 05/11/2018 FLAVIA Monster Primary FLAVIA MEJIA Insurance:[facility] MANPREETDOB: Community [place]ERRY *IN [facility] 8363-31-26VACNorth [place] Number: Repository [address]Wui: (012) [id number] [phone] () Date:1104-50-89UMSF CLAIMS [address] [place] [address]YN: 05/11/2018 Secondary NOT GIVENUNK [place] Insurance:SELF PAY [facility] Number: Effective Repository Date:2018-05-11 05/08/2018 FLAVIA A Primary FLAVIA A [place] [id number] Insurance:MYCARE CRSC WATTSDOB: Community STRAWBERRY *IN [facility] 8589-13-38GXNNorth [place] Number: Repository [address]Bxh: 330 [id number] [phone] () Date:2004-09-72PASW CLAIMS [address] [place] [address]HW: 05/08/2018 Secondary NOT GIVENUNK [place] Insurance:SELF PAY [facility] Number: Effective Repository Date:2018-05-08 04/20/2018 FLAVIA A Primary FLAVIA A [place] [id number] Insurance:MYCARE CRSC WATTSDOB: Community [place]ERRY *IN [facility] 2539-80-77OTNNorth [place] Number: Repository [address]Yff: 330 [id number] [phone] () Date:2683-21-05QWTX CLAIMS [address]PT[address] [place] [address]UC: 04/20/2018 Secondary NOT GIVENUNK [place] Insurance:SELF PAY [facility] Number: Effective Repository Date:2018-04-18 04/20/2018 FLAVIA A Primary FLAVIA A [place] [id number] Insurance:MYCARE CRSC WATTSDOB: Community STRAWBERRY *IN [facility] 4888-87-78JKHNorth [place] Number: Repository [address]Ujr: 330 [id number] [phone] () Date:5154-64-41BWNZ CLAIMS [address]PT[address] [place] [address]JB: 04/20/2018 Secondary NOT GIVENUNK [place] Insurance:SELF PAY [facility] Number: Effective Repository Date:2018-04-20 04/20/2018 FLAVIA A Primary FLAVIA A [place] [id number] Insurance:MYCARE CRSC WATTSDOB: Community STR[place]ERRY *IN [facility] [id number] [place], [place] Number: Repository [address]Eqi: 330 [id number] [phone] (HP) Date:8824-91-80TYYW CLAIMS [address], [place] [address]TJ: 04/20/2018 Secondary NOT GIVENUNK [place] Insurance:SELF PAY [facility] Number: Effective Repository Date:2018-04-20 04/20/2018 FLAVIA A Primary FLAVIA A [place] [id number] Insurance:MYCARE CRSC WATTSDOB: Community [place]ERRY *IN [facility] 8637-23-81YCWNorth [place] Number: Repository [address]Xtc: 330 [id number] [phone] (HP) Date:3470-44-65GWZG CLAIMS [address] [place] [address]SZ: 04/20/2018 Secondary NOT GIVENUNK [place] Insurance:SELF PAY [facility] Number: Effective Repository Date:2018-04-20 04/20/2018 FLAVIA A Primary FLAVIA A [place] [id number] Insurance:MYCARE CRSC WATTSDOB: Community [place]Y *IN [facility] 9523-96-29FKWNorth [place] Number: Repository [address]Txs: 330 [id number] [phone] () Date:2143-63-95VIYB CLAIMS [address]PT[address] [place] [address]DI: 04/20/2018 Secondary NOT GIVENUNK [place] Insurance:SELF PAY [facility] Number: Effective Repository Date:2018-04-20 04/20/2018 FLAVIA A Primary FLAVIA A [place] [id number] Insurance:MYCARE CRSC WATTSDOB: Community [place]ERRY *IN [facility] 9506-71-42WWWNorth [place] Number: Repository [address]Kwi: 330 [id number] [phone] () Date:4638-44-79ITPY CLAIMS [address] [place] [address]AE: 04/20/2018 Secondary NOT GIVENUNK [place] Insurance:SELF PAY [facility] Number: Effective Repository Date:2018-04-20 04/20/2018 FLAVIA A Primary FLAVIA A [place] [id number] Insurance:MYCARE CRSC WATTSDOB: Community [place]Y *IN [facility] 5001-36-41FKONorth [place] Number: Repository [address]Xaw: 330 [id number] [phone] () Date:5702-13-21DPKL CLAIMS [address] [place] [address]JN: 04/20/2018 Secondary NOT GIVENUNK [place] Insurance:SELF PAY [facility] Number: Effective Repository Date:2018-04-20 04/20/2018 FLAVIA A Primary FLAVIA A [place] [id number] Insurance:MYCARE CRSC WATTSDOB: Community [place]ERRY *IN [facility] 7418-68-61YMXNorth [place] Number: Repository [address]Oln: 330 [id number] [phone] () Date:9190-67-66LOER CLAIMS [address] [place] [address]IF: 04/20/2018 Secondary NOT GIVENUNK [place] Insurance:SELF PAY [facility] Number: Effective Repository Date:2018-04-20 04/20/2018 FLAVIA A Primary FLAVIA A [place] [id number] Insurance:MYCARE CRSC WATTSDOB: Community [place]Y *IN [facility] 1152-64-33QIXNorth [place] Number: Repository [address]Ijr: 330 [id number] [phone] () Date:7254-80-76MJMP CLAIMS DEPT[address] [place] [address]TQ: 04/20/2018 Secondary NOT GIVENUNK [place] Insurance:SELF PAY [facility] Number: Effective Repository Date:2018-04-20 04/20/2018 FLAVIA A Primary FLAVIA A [place] [id number] Insurance:MYCARE CRSC WATTSDOB: Community [place]Y *IN [facility] 6307-56-72ZBANorth [place] Number: Repository [address]Xsj: 330 [id number] [phone] (HP) Date:2309-89-36CGVQ CLAIMS [address], [place] [address]PC: 04/20/2018 Secondary NOT GIVENUNK [place] Insurance:SELF PAY [facility] Effective Repository Date:2018-04-20 04/20/2018 FLAVIA A Primary FLAVIA A [place] [id number] Insurance:MYCARE CRSC WATTSDOB: Community [place]Y *IN [facility] [id number] [place] Number: Repository [address]Rip: 330 [id number] [phone] (HP) Date:6663-36-80XVLB CLAIMS DEPTPO [address] [place] [address]LS: 04/20/2018 Secondary NOT GIVENUNK [place] Insurance:SELF PAY [facility] Number: Effective Repository Date:2018-04-20 04/20/2018 FLAVIA A Primary FLAVIA A [place] [id number] Insurance:MYCARE CRSC WATTSDOB: Community [place]ERRY *IN [facility] 2239-01-56EPPNorth [place] Number: Repository [address]Dns: 330 [id number] [phone] () Date:7502-14-89XPOD CLAIMS DEPT[address] [place] [address]AG: 04/20/2018 Secondary NOT GIVENUNK [place] Insurance:SELF PAY [facility] Number: Effective Repository Date:2018-04-20 04/18/2018 FLAVIA A Primary FLAVIA A [place] [id number] Insurance:MYCARE CRSC WATTSDOB: Community [place]Y *IN [facility] 5364-15-65RJJNorth [place] Number: Repository [address]Ksl: 330 [id number] [phone] () Date:7670-71-23JGMF CLAIMS [address], [place] [address]MR: 04/18/2018 Secondary NOT GIVENUNK [place] Insurance:[facility]LF [facility]Y [facility] Effective Repository Date:2018-04-18 04/18/2018 FLAVIA A Primary FLAVIA A [place] [id number] Insurance:MYCARE CRSC WATTSDOB: Community [place]Y *IN [facility] 1055-17-09GDZNorth [place] Number: Repository [address]Zof: 330 [id number] [phone] () Date:1324-53-28QOUI CLAIMS [address]PT[address] [place] [address]GI: 04/18/2018 Secondary NOT GIVENUNK [place] Insurance:SELF PAY [facility] Number: Effective Repository Date:2018-04-18 04/18/2018 FLAVIA A Primary FLAVIA A [place] [id number] Insurance:MYCARE CRSC WATTSDOB: Community [place]Y *IN [facility] 6424-96-55RMGNorth [place] Number: Repository [address]Pyy: 330 [id number] [phone] () Date:9573-37-61EPHG CLAIMS [address]PT[address] [place] [address]YL: 04/18/2018 Secondary NOT GIVENUNK [place] Insurance:SELF PAY [facility] Number: Effective Repository Date:2018-04-18 04/18/2018 FLAVIA A Primary FLAVIA A [place] [id number] Insurance:MYCARE CRSC WATTSDOB: Community [place]Y *IN [facility] 8199-57-67RMQNorth [place] Number: Repository [address]Flx: 330 [id number] [phone] () Date:4911-97-56GESN CLAIMS DEPT[address] [place] [address]BJ: 04/18/2018 Secondary NOT GIVENUNK [place] Insurance:SELF PAY [facility] Number: Effective Repository Date:2018-04-18 04/18/2018 FLAVIA A Primary FLAVIA A [place] [id number] Insurance:MYCARE CRSC WATTSDOB: Community [place]ERRY *IN [facility] 5013-35-11FUJNorth [place] Number: Repository [address]Zji: 330 [id number] [phone] (HP) Date:1022-13-10IXPP CLAIMS [address], [place] [address]NX: 04/18/2018 Secondary NOT GIVENUNK [place] Insurance:SELF PAY [facility] Number: Effective Repository Date:2018-04-18 04/10/2018 FLAVIA A Primary FLAVIA A [place] [id number] Insurance:MYCARE CRSC WATTSDOB: Community STR[place]ERRY *IN [facility] 7374-75-72GFWNorth [place] Number: Repository [address]Evq: 330 [id number] [phone] (HP) Date:1771-80-21DCQK CLAIMS DEPT[address] [place] [address]GX: 04/10/2018 Secondary NOT GIVENUNK [place] Insurance:SELF PAY [facility] Number: Effective Repository Date:2018-04-07 04/10/2018 FLAVIA A Primary FLAVIA A [place] [id number] Insurance:MYCARE CRSC WATTSDOB: Community [place]ERRY *IN [facility] 7178-29-70FMHNorth [place] Number: Repository [address]Zwr: 330 [id number] [phone] () Date:4395-58-13VIZK CLAIMS [address] [place] [address]ZN: 04/10/2018 Secondary NOT GIVENUNK [place] Insurance:SELF PAY [facility] Number: Effective Repository Date:2018-04-10 04/10/2018 FLAVIA A Primary FLAVIA A [place] [id number] Insurance:MYCARE CRSC WATTSDOB: Community STRAWBERRY *IN [facility] 6190-19-68MIHNorth [place] Number: Repository [address]Eip: 330 [id number] [phone] (HP) Date:3583-69-92GXUB CLAIMS [address], [place] [address]CF: 04/10/2018 Secondary NOT GIVENUNK [place] Insurance:SELF PAY [facility] Effective Repository Date:2018-04-10 04/07/2018 FLAVIA A Primary FLAVIA A [place] [id number] Insurance:MYCARE CRSC WATTSDOB: Community STRAWBERRY *IN [facility] 1573-54-84DGTNorth [place] Number: Repository [address]Irs: 330 [id number] [phone] () Date:2940-55-82HZKD CLAIMS DEPTPO [address] [place] [address]EG: 04/07/2018 Secondary NOT GIVENUNK [place] Insurance:SELF PAY [facility] Number: Effective Repository Date:2018-04-07 04/07/2018 FLAVIA A Primary FLAVIA A [place] [id number] Insurance:MYCARE CRSC WATTSDOB: Community STRAWBERRY *IN [facility] 9786-74-16IPZNorth [place] Number: Repository [address]Xix: 330 [id number] [phone] () Date:0887-49-55HKPF CLAIMS DEPTPO [address] [place] [address]KD: 04/07/2018 Secondary NOT GIVENUNK [place] Insurance:SELF PAY [facility] Number: Effective Repository Date:2018-04-07 04/07/2018 FLAVIA A Primary FLAVIA A [place] [id number] Insurance:MYCARE CRSC WATTSDOB: Community STRAWBERRY *IN [facility] 4174-49-01GBCNorth [place] Number: Repository [address]Bfp: 330 [id number] [phone] () Date:3370-81-53FNNX CLAIMS DEPTPO [address] [place] [address]IM: 04/07/2018 Secondary NOT GIVENUNK [place] Insurance:SELF PAY [facility] Number: Effective Repository Date:2018-04-07 04/07/2018 FLAVIA A Primary FLAVIA A [place] [id number] Insurance:MYCARE CRSC WATTSDOB: Community STRAWBERRY *IN [facility] 4732-65-48CWZNorth [place] Number: Repository [address]Qes: 330 [id number] [phone] (HP) Date:4600-90-66ZBMZ CLAIMS [address], [place] [address]WH: 04/07/2018 Secondary NOT GIVENUNK [place] Insurance:SELF PAY [facility] Number: Effective Repository Date:2018-04-07 04/07/2018 FLAVIA A Primary FLAVIA A [place] [id number] Insurance:MYCARE CRSC WATTSDOB: Community STRAWBERRY *IN [facility] 2132-03-68GZVNorth [place] Number: Repository [address]Rnj: 330 [id number] [phone] (HP) Date:0799-56-22IVTH CLAIMS [address]PT[address] [place] [address]VW: 04/07/2018 Secondary NOT GIVENUNK [place] Insurance:SELF PAY [facility] Number: Effective Repository Date:2018-04-07 04/07/2018 LFAVIA A Primary FLAVIA A [place] [id number] Insurance:MYCARE CRSC WATTSDOB: Community [place]Y *[facility] [facility] [id number] [place] Number: Repository [id number]: 330 [id number] [phone] (HP) Date:[id number] CLAIMS DEPT[address] [place] [id number]: 04/07/2018 Secondary NOT GIVENUNK [place] Insurance:SELF PAY [facility] Number: Effective Repository Date:2018-04-07 04/07/2018 FLAVIA A Primary FLAVIA A [place] [id number] Insurance:MYCARE CRSC WATTSDOB: Community [place] *IN [facility] [id number] [place] Number: Repository [id number]: 330 [id number] [phone] (HP) Date:9888-79-45DFRO CLAIMS DEPT[address] [place] [id number]: 04/07/2018 Secondary NOT GIVENUNK [place] Insurance:SELF PAY [facility] Effective Rep[facility] Date:2018-04-07 03/26/2018 FLAVIA A Primary FLAVIA A [place] [id number] Insurance:MYCARE CRSC WATTSDOB: Community [place] *IN [facility] [id number] [place] Number: Repository [address]Bmo: 330 [id number] [phone] () Date:1261-77-33SNQX CLAIMS DEPTPO [address] [place] [id number]: 03/26/2018 Secondary NOT GIVENUNK [place] Insurance:SELF PAY [facility] Number: Effective Repository Date:2018-03-26 03/26/2018 FLAVIA A Primary FLAVIA A [place] [id number] Insurance:MYCARE CRSC WATTSDOB: Community [place] *IN [facility] [id number] [place] Number: Repository [id number]: 330 [id number] [phone] () Date:9911-36-49OSPF CLAIMS DEPTPO [address] [place] [id number]: 03/26/2018 Secondary NOT GIVENUNK [place] Insurance:SELF PAY [facility] Number: Effective Repository Date:2018-03-26 03/26/2018 FLAVIA A Primary FLAVIA A [place] [id number] Insurance:MYCARE CRSC WATTSDOB: Community [place] *IN [facility] [id number] [place] Number: Repository [address]Nws: 330 [id number] [phone] () Date:2788-29-87JYXM CLAIMS DEPTPO [address] [place] [id number]: 03/26/2018 Secondary NOT GIVENUNK [place] Insurance:SELF PAY [facility] Number: Effective Repository Date:2018-03-26 03/26/2018 FLAVIA A Primary FLAVIA A [place] [id number] Insurance:MYCARE CRSC WATTSDOB: Community [place] *IN [facility] [id number] [place] Number: Repository [id number]: 330 [id number] [phone] (HP) Date:4491-62-91SCOP CLAIMS DEPTPO [address] [place] [id number]: 03/26/2018 Secondary NOT GIVENUNK [place] Insurance:SELF PAY [facility] Number: Effective Repository Date:2018-03-26 03/26/2018 FLAVIA A Primary FLAVIA A [place] [id number] Insurance:MYCARE CRSC WATTSDOB: Community [place] *IN [facility] [id number] [place] Number: Repository [phone]: 330 [id number] [phone] (HP) Date:3175-00-60ZYTJ CLAIMS DEPTPO [address] [place] [id number]: 03/26/2018 Secondary NOT GIVENUNK [place] Insurance:SELF PAY [facility] Number: Effective Repository Date:2018-03-26 03/26/2018 FLAVIA A Primary FLAVIA A [place] [id number] Insurance:MYCARE CRSC WATTSDOB: Community [place] *IN [facility] [id number] [place] Number: Repository [phone]: 330 [id number] [phone] (HP) Date:5691-31-52IMIY CLAIMS DEPTPO [address] [place] [address]CK: 03/26/2018 Secondary NOT GIVENUNK [place] Insurance:SELF PAY [facility] Number: Effective Repository Date:2018-03-26 03/26/2018 FLAVIA A Primary FLAVIA A [place] [id number] Insurance:MYCARE CRSC WATTSDOB: Community [place] *IN [facility] [id number] [place] Number: Repository [phone]: 330 [id number] [phone] (HP) Date:0722-99-23NPZN CLAIMS DEPTPO [address] [place] [address]ZW: 03/26/2018 Secondary NOT GIVENUNK [place] Insurance:SELF PAY [facility] Number: Effective Repository Date:2018-03-26 03/26/2018 FLAVIA A Primary FLAVIA A [place] [id number] Insurance:MYCARE CRSC WATTSDOB: Community [place] *IN [facility] [id number] [place] Number: Repository [phone]: 330 [id number] [phone] (HP) Date:9919-04-66EBMF CLAIMS DEPTPO [address] [place] [id number]: 03/26/2018 Secondary NOT GIVENUNK [place] Insurance:SELF PAY [facility] Number: Effective Repository Date:2018-03-26 12/19/2017 FLAVIA A Primary FLAVIA A [facility] WATTSDOB: Insurance:MYCARE WATTSDOB: [facility] [id number] Repository [place] MEDICAREPolicy [place] Number: [id number]: 330 [id number] [phone] (HP) Date: 12/19/2017 Secondary FLAVAI A [facility] Insurance:MYCARE WATTSDOB: [facility] [id number] Repository MEDICAIDPolicy Number: [id number] Date: 06/15/2017 FLAVIA A Primary FLAVIA A [facility] WATTSDOB: Insurance:MYCARE WATDOB: [facility] [id number] Repository [place] MEDICAREPolicy [place], [place] Number: [id number]: 330 [id number] [phone] (HP) Date: 06/15/2017 Secondary FLAVIA A [facility] Insurance:MYCARE WATTSDOB: [facility] [id number] Repository MEDICAREPolicy Number: [id number] Date: 06/15/2017 Tertiary FLAVIA A [facility] Insurance:MYCARE WATTSDOB: [facility] [id number] Repository MEDICAIDPolicy Number: [id number] Date:
== END 2018-04-13 19:30 | disposition home or self-care (01) | DRG 281 ==
LOC: ED 05:49 → PCU 07:17
PROVIDERS: Admitting Provider Internal Medicine; Emergency Provider Emergency Medicine; Family Provider Family Medicine; PCP Family Medicine; Visit Provider Internal Medicine
DX: I21.A1 Myocardial infarction type 2 (principal); Z68.41 Body mass index [BMI] 40.0-44.9, adult; E66.01 Morbid (severe) obesity due to excess calories; I25.110 Atherosclerotic heart disease of native coronary artery with unstable angina pectoris; I10 Essential (primary) hypertension; I48.0 Paroxysmal atrial fibrillation; J44.9 Chronic obstructive pulmonary disease, unspecified; I35.0 Nonrheumatic aortic (valve) stenosis; Z95.2 Presence of prosthetic heart valve; Z95.1 Presence of aortocoronary bypass graft; F41.9 Anxiety disorder, unspecified; Z79.01 Long term (current) use of anticoagulants; R00.1 Bradycardia, unspecified; Z87.891 Personal history of nicotine dependence; E11.65 Type 2 diabetes mellitus with hyperglycemia; Z79.82 Long term (current) use of aspirin; Z79.84 Long term (current) use of oral hypoglycemic drugs; Z79.899 Other long term (current) drug therapy
CPT/HCPCS: 36415; 71045; 80048; 82962; 83036; 83735; 84484; 85025; 85027; 85610; 85730; 93005; 97802; 99285; A4216

== ENCOUNTER 2018-04-18 01:55 | Inpatient (IN) | payer MEDICARE, SELFPAY ==
[2018-04-07 07:46] VITALS: BMI 41.4
[2018-04-18] VITALS (14 sets, daily range): BP systolic 133–182; BP diastolic 47–67; PULSE 59–99; RESP 15–18; TEMP 36.1–36.7; O2SAT 92–100; BMI 41.5; BMI 41.1
--- NOTE | 2018-04-18 02:19 | EKG12_ITS ---
Test Reason : CHEST PRESSURE Blood Pressure : / mmHG Vent. Rate : 069 BPM Atrial Rate : 069 BPM P-R Int : 168 ms QRS Dur : 114 ms QT Int : 440 ms P-R-T Axes : 040 087 032 degrees QTc Int : 471 ms Normal sinus rhythm Normal ECG Confirmed by JENNIFFER ONEAL, NIEVES ([id number]), acquisitions editor SOUMYA BARTH ([id number]) on 04/20/2018 3:22:47 PM Referred By: TIMBO Confirmed By:NIEVES ABAD MD
[2018-04-18] MEDS: 0.9% Normal Saline 1,000 ML 150 ML IV (02:44)
[2018-04-18 02:48] LABS: Absolute Lymphocyte Count 1.47 X10^3/ul (0.83-4.51); Absolute Neutrophil Count 3.2 X10^3/uL (2.0-7.7); Basophil# 0.07 X10^3/uL; Basophil% 1.3 % (0-1); Eosinophil# 0.25 X10^3/uL; Eosinophils% 4.5 % (0-5); Hematocrit 35.5 % (37-47); Hemoglobin 11.7 g/dl (12.0-15.0); Lymphocyte # 1.47 X10^3/ul (4.0); Lymphocyte % 26.6 % (19-41); Mean Corpuscular Hgb 27.3 pg (27.0-32.0); Mean Corpuscular Volume 82.8 fL (81-99); Mean Platelet Vol. 11.8 fl (6.2-12.0); Monocyte# 0.52 X10^3/uL; Monocyte% 9.4 % (0-10); Neutrophil % 57.8 % (47-70); POSITIVE COUNT NO; POSITIVE DIFFERENTIAL NO; POSITIVE MORPHOLOGY NO; Platelet Count 169 K/mm3 (150-450); RBC Distribution Width SD 48.1 fl (35.1-43.9); Red Blood Count 4.29 M/mm3 (4.2-5.4); White Blood Count 5.5 K/mm3 (4.4-11.0)
--- NOTE | 2018-04-18 02:50 | RAD_ITS ---
STUDY: X-RAY CHEST REASON FOR EXAM: Female, 68 years old. Chest pain and palpitations. TECHNIQUE: Single AP portable view of the chest. COMPARISON: April 07, 2018. FINDINGS: Cardiac monitoring leads are present. Patient has had a sternotomy. The lungs are clear and expanded. There is no demonstrated pleural abnormality. There is mild cardiac enlargement. Normal mediastinum and janice. There is prominence of the pulmonary hilar arteries without peripheral pulmonary vascular congestion. Normal visualized aortic arch and descending thoracic aorta. There is mild curvature of the thoracic spine with convexity towards the right. There are degenerative changes of both shoulders. Normal visualized ribs, clavicles, and shoulders. There is no demonstrated abnormality of the visualized soft tissue structures of the upper abdomen. RAD/Chest 1 View (Portable) IMPRESSION: Postoperative changes and mild cardiomegaly without evidence of acute cardiopulmonary disease. Electronically Signed: Brittany Newman MD at 3:12 EST , Service support ,
[2018-04-18 03:03] LABS: Anion Gap 10 (5-15); BUN 18 mg/dL (7-18); BUN/Creat Ratio 21.6 RATIO (10-20); Calcium,Total 8.9 mg/dL (8.5-10.1); Chloride 107 mmol/L (98-107); Creatinine, Serum 0.83 mg/dL (0.55-1.02); EST Glomerular Filtration Rate 72 mL/min (>60); Est Glom Filt Rate - Afr Amer 87 mL/min (>60); Estimated Creatinine Clearance 52.92 ml/min; Glucose 178 mg/dL (74-106); Potassium 3.8 mmol/L (3.5-5.1); Sodium Level 139 mmol/L (136-145)
[2018-04-18 03:33] LABS: Prothrombin Time (Protime)PT. 39.1 SECONDS (11.7-14.9)
--- NOTE | 2018-04-18 03:40 | ED.RN ---
LAB CALLED TO REPORT INR 4.0, DR. IZQUIERDO NOTIFIED.
--- NOTE | 2018-04-18 04:08 | HP.PCM_ITS ---
Problem List (1) Chest pain at rest Status: Acute History of Present Illness Date of Admission: 04/18/18 Chief Complaint: chest Pain The patient is a 68 year old F with a significant history of morbid obesity; anxiety; aortic stenosis status post mechanical [place] valve; paroxysmal A. fib; CAD status post CABG; type 2 diabetes; hypertension and chronic obstructive lung disease who presented with epigastric to substernal progressively worsening chest pain that started a few hours prior to her admission. Her chest pain started when patient was at rest. Her chest pain began suddenly when she was playing computer games. She described her chest pain as squeezing and pressure. Her chest pain radiates to her bilateral neck. Associated with her symptoms is anxiety, shortness of breath, headache and diaphoresis. Further she reports a feeling of her heart fluttering. She denies any nausea or vomiting. There is no aggravating factor to her chest pain. Chest pain was somewhat relieved with receiving 2 tablets of nitroglycerin. In the last 24 hours she took 4 tablets of aspirin: her routine 1 tablet that she takes in the morning and 3 tablets that was given by the paramedics when patient had chest pain. She reported that at home when the chest pain began her systolic blood pressure was in the high between 220s and her diastolic blood pressure was 104. Paramedics reported that patient was in sinus rhythm with PVCs At emergency department her INR was 4.0. As stated the above patient had CABG at 22 years ago. At the same time he had aortic valve replacement. Patient was admitted at our hospital and discharged about 1 week ago. At that time she was started on amiodarone because of A. fib. Patient reported that on a previous admission because of her Afib a discussion was made on permanent pacemaker. She also reported that on her last admission discussion was made on cardiac cath. Emergency department doctor reported that on patient last admission cardiac cath was not done because of uncertainty in stopping her Coumadin and beginning heparin drip. Patient sees Dr. Schrader, cardiology outpatient. Last time patient was here she saw Dr. Marie. Past Medical History Past Medical History (Chronic Problems): Chronic Problems Moderate aortic stenosis (Chronic) Morbid obesity (Chronic) H/O prosthetic aortic valve replacement (Chronic) 1994 CAD (coronary artery disease) (Chronic) Hx of CABG (Chronic) Type 2 diabetes mellitus (Chronic) Hypertension (Chronic) Chronic obstructive lung disease (Chronic) Allergies adhesive Allergy (Verified 04/18/18 02:03) Rash fluticasone propionate [From Advair Diskus] Allergy (Verified 04/18/18 02:03) chest pain gabapentin [From Neurontin] Allergy (Verified 04/18/18 02:03) Swelling of feet and legs salmeterol xinafoate [From Advair Diskus] Allergy (Verified 04/18/18 02:03) chest pains albuterol [From Ventolin HFA] Adverse Reaction (Verified 04/18/18 02:03) jittery TOO JITTERY cephalexin monohydrate [From Keflex] Adverse Reaction (Verified 04/18/18 02:03) abdominal cramping pregabalin Adverse Reaction (Verified 04/18/18 02:03) makes me slow to respond Home Medications: Ambulatory Orders Medication Instructions Recorded Aspirin [Aspirin EC] 81 mg PO DAILY 10/23/16 Furosemide [Lasix] 20 mg PO DAILY 10/23/16 Lansoprazole [Prevacid] 30 mg PO BID 10/23/16 Loratadine 10 mg PO DAILY 10/23/16 Losartan Potassium [Cozaar] 100 mg PO QHS 10/23/16 Metformin(XR) [Glucophage Xr] 1,000 mg PO BID 10/23/16 Polyethylene Glycol 3350 17 gm PO DAILY PRN 10/23/16 Warfarin [Coumadin] 6 mg PO SUMOWEFRSA 10/23/16 glipiZIDE [Glucotrol] 10 mg PO DAILY@0730 10/23/16 Albuterol Sulfate [Ventolin Hfa] 2 puff INHALATION Q4H PRN 03/26/18 Atorvastatin Calcium [Lipitor] 20 mg PO QHS 03/26/18 Ferrous Sulfate 325 mg PO BIDCM 03/26/18 Meclizine HCl [Antivert] 25 mg PO TID PRN PRN 03/26/18 Mupirocin [Bactroban] 1 applicatio NASAL TID PRN 03/26/18 Nitroglycerin [Nitrostat] 0.4 mg SUBLINGUAL Q5M PRN 03/26/18 Nystatin 1 applicatio TP BID PRN 03/26/18 Oxybutynin Chloride [Ditropan Xl] 10 mg PO DAILY 03/26/18 Tizanidine HCl 4 mg PO QHS PRN 03/26/18 Warfarin Sodium 3 mg PO TUTH 03/26/18 Amlodipine [Norvasc] 10 mg PO DAILY #30 tablet 03/28/18 Atenolol [Tenormin (beta yi)] 50 mg PO DAILY #30 tablet 03/28/18 Isosorbide Mononitrate [Imdur] 120 mg PO DAILY #30 tablet 03/28/18 Amiodarone HCl [Cordarone] 200 mg PO DAILY #30 tablet 04/13/18 Linagliptin [Tradjenta] 5 mg PO DAILY #30 tablet 04/13/18 Magnesium Oxide [Mag-Ox 400] 400 mg PO DAILYCM #30 tablet 04/13/18 Potassium Chloride [K-Dur] 20 meq PO DAILYCM #30 tablet 04/13/18 busPIRone [Buspar] 5 mg PO TID #90 tablet 04/13/18 Surgical History: - - aortic valve replacement 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: No pertinent psych hx [employer] History: No pertinent [employer] history Lives: With Family Smoking Status: Former smoker - *Family History Sibling History Items: Cancer - colorectal cancer in sister, Heart Disease Maternal History Items: Heart Disease, Hypertension Paternal History Items: Heart Disease, Hypertension Review of Systems Constitutional: Denies: Chills, Fever, Weight Change HEENT: Reports: Head Aches. Denies: Sinus Congestion, Sinus Drainage Cardiovascular: Reports: Chest Pain, Chest Pressure, Chest Tightness. Denies: Palpitations Respiratory: Reports: Shortness of Breath. Denies: Cough, Shortness of breath at rest, Sputum production Gastrointestinal: Denies: Abdominal Pain, Nausea, Vomiting Genitourinary: Denies: Dysuria Musculoskeletal: Reports: Neck Pain. Denies: Joint Pain, Joint Tenderness Skin: Denies: Rash, Wounds Neurological: Denies: Numbness, Tingling, Focal weakness Psychiatric: Denies: Anxiety, Depression, Homicidal Ideations, Suicidal Ideations Hematologic/ Lymphatic: Denies: Easy Bruising, Easy Bleeding VTE Information - Inpt Only VTE Present on Admission: No VTE Mechan Device Prophylaxis: SCD's VTE Pharm Prophylaxis ordered?: No Patient Problems: Active and Suspected Problems Chest pain at rest (Acute) Chest pain (Acute) - Physical Exam General: Alert, Oriented x3, Cooperative HEENT: Atraumatic, PERRLA, EOMI, Normocephalic Neck: Supple, No JVD, Negative Carotid Bruits Lungs: Clear to auscultation, Normal air movement Cardiovascular: Regular rate, No murmurs Abdomen: Bowel Sounds Present, Soft, Non Tender Extremities: No edema, Capillary Refill Less than 3 Seconds Skin: No rashes, No breakdown Musculoskeletal: No Tenderness to Palpation of Joints or Extremities Neurological: Neuro grossly intact Psych/Mental Status: Normal Affect, Appropriate Vital Signs Temp Pulse Resp BP Pulse Ox 97.8 F 65 18 181/67 H 96 04/18/18 01:57 04/18/18 04:04 04/18/18 04:04 04/18/18 04:04 04/18/18 04:04 Oxygen Flow Rate (L/min) 2 Oxygen Delivery Method Room Air Weight: 106.5 kg Body Mass Index (BMI) 41.5 Laboratory Tests Past 24 Hrs 04/18/18 04/18/18 04/18/18 02:10 02:10 03:00 WBC 5.5 RBC 4.29 Hgb 11.7 L Hct 35.5 L MCV 82.8 MCH 27.3 MCHC 33.0 RDW 16.0 H RDW Differential 48.1 H Plt Count 169 MPV 11.8 Immature Gran % (Auto) 0.400 Neut % (Auto) 57.8 Lymph % (Auto) 26.6 [place] % (Auto) 9.4 Eos % (Auto) 4.5 Baso % (Auto) 1.3 H Absolute Neuts (auto) 3.2 Absolute Lymphs (auto) 1.47 Total Counted Not Reportable PT 39.1 H INR 4.0 H* Sodium 139 Potassium 3.8 Chloride 107 Carbon Dioxide 22.0 Anion Gap 10 BUN 18 Creatinine 0.83 Estim Creat Clear Calc 52.92 Est GFR (MDRD) Af Amer 87 Est GFR (MDRD) Non-Af 72 BUN/Creatinine Ratio 21.6 H Glucose 178 H Calcium 8.9 Magnesium 2.0 Troponin I < 0.015 Assessment/Plan All Active Problems Chest pain at rest (Acute) Chest pain (Acute) Anxiety about health (Acute) Subtherapeutic international normalized ratio (INR) (Acute) Paroxysmal atrial fibrillation with RVR (Acute) The patient is a 68 year old F with a significant history of morbid obesity; anxiety; aortic stenosis status post mechanical [place] valve; paroxysmal A. fib; CAD status post CABG; type 2 diabetes; hypertension and chronic obstructive lung disease who presented with epigastric to substernal progressively worsening chest pain Chest pain Different diagnosis of her chest pain includes hypertensive emergency; aortic stenosis; paroxysmal A. fib; anxiety or CAD Admit to a monitored bed on PCU CXR independently reviewed confirms cardiomegaly; previous sternotomy ; and enlargement of the pulmonary vessels without congestion. EKG independently reviewed confirms sinus rhythm ASA 81 mg p.o. daily SL NTG 0.4 mg prn as needed for chest pain Serial cardiac enzymes Stat EKG as needed for chest pain Since a cardiac cath was being planned on the last admission we will consult cardiology for risk stratification and to optimize management. Will control blood pressure by continuing home amlodipine; atenolol; Cozaar; Lasix and Imdur. We will add as needed labetalol for systolic blood pressure more than 160. Will check fasting lipids. We will continue home Lipitor Aortic stenosis status post mechanical [place] valve. Last echocardiogram was on 03/27/2018. It showed a peak aortic valve gradient of 69. Mean aortic valve gradient of 37. Moderate aortic stenosis. Calculated aortic valve area by continuity equation was 0.9 cm?. Also echo showed stable appearing mechanical aortic valve apparatus. She reports that her cardiology wants her INR between 3 and 4. On admission her INR was 4. Would hold off Coumadin at this time. Repeat INR next day. Cardiology consult as above to optimize management. Hypertensive emergency She reports that at home at the time of chest pain her blood pressure was in the high 220s; and a diastolic blood pressure was 104. Her systolic blood pressure at emergency department was in the 180s. We will continue home blood pressure medications as above; and add as needed labetalol for systolic blood pressure more than 160. COPD Patient has associated shortness of breath with chest pain. Her chest pain is likely due to cardiac origin. Her lungs are clear, not diminished; no wheezing. COPD is probably stable As needed albuterol continued. Diabetes mellitus On admission blood pressure was within goal of 140s-180. Since we will keep patient n.p.o. until cardiology sees patient will order fingerstick q. before meals at bedtime and hold home metformin; Tradjenta and glipizide. Low-dose correction scale ordered. Paroxysmal A. fib On admission patient was in sinus rhythm. Amiodarone and atenolol continued Anxiety Buspirone continued Overactive bladder Oxybutynin continued. DVT prophylaxis SCD ordered. Patient supratherapeutic on Coumadin. Code Visit OBSV E&M: 61481 Initial observation care L3
--- NOTE | 2018-04-18 04:26 | ED.VISSUMM ---
- ER Visit Summary Date of Service: 04/18/18 Chief Complaint: Chest pain History of Present Illness: The patient is a 68 F with onset of chest pain which she describes as tightness and heaviness tonight. She also had palpitations. Pain was relieved with aspirin and 2 sublingual nitro. Patient was admitted to the hospital April 07. At that time she had paroxysmal A. fib and was started on amiodarone. 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 Physical Examination: Blood pressure is 182/64, temperature 97.8, heart rate 71, respiratory rate 16, pulse ox 94% on room air. Patient sitting upright in bed no acute distress. Head neck examination is unremarkable. Heart is regular rate and rhythm. Lung sounds are clear. Abdomen is soft nontender. Lower extremity examination reveals no focal calf tenderness. She has strong distal pulses. Test Results: EKG is sinus at 69 with no sign of acute ischemia. Portable chest x-ray shows postoperative changes and mild cardiomegaly. CBC was normal white count with hemoglobin 11.7. Chemistry studies significant for glucose of 178. INR is 4.0. Troponin is less than 0.015. Emergency Department Course and Treatment: Patient had been given aspirin and sublingual nitro with EMS. She has not had recurrent chest pain while here. Patient certainly does have some element of anxiety, she also has known history of cardiac disease and it does appear there was thought given to heart cath on last admission. Patient will be admitted for cycling of cardiac enzymes and further discussion with cardiology regarding any further testing at this time. Hospitalist has been contacted for admission. Treatment Plan: [] Disposition: Admit Impression: Chest pain This note was generated with Expert TA dictation software. It may contain incorrect words, spelling, and punctuation that were not noted in review of the chart prior to signing ED Disposition - Plan for ED Patient: Chief Complaint: Chest Pain Referrals: Collin Gamez MD [Primary Care Provider] -
--- NOTE | 2018-04-18 05:46 | EKG12_ITS ---
Test Reason : CP ADMIT Blood Pressure : / mmHG Vent. Rate : 067 BPM Atrial Rate : 067 BPM P-R Int : 176 ms QRS Dur : 110 ms QT Int : 448 ms P-R-T Axes : 031 082 037 degrees QTc Int : 473 ms Normal sinus rhythm Nonspecific ST abnormality Abnormal ECG Confirmed by JENNIFFER ONEAL, NIEVES ([id number]), book or script editor SOUMYA BARTH ([id number]) on 04/20/2018 3:37:55 PM Referred By: DR MCLAUGHLIN Confirmed By:NIEVES ABAD MD
[2018-04-18 06:48] LABS: Cholesterol 123 mg/dL (200); High Density Lipoprotein 23 mg/dL; Triglycerides 205 mg/dL; Very Low Density Lipoprotein 41 mg/dL (5-40)
[2018-04-18] MEDS: busPIRone 5 MG Tablet PO ×3 (06:48→21:07)
[2018-04-18] MEDS: Insulin Lispro 100 UNIT/ML INSULN.PEN SQ ×2 (06:54→17:35)
--- NOTE | 2018-04-18 08:17 | NURSING ---
After MD ordered medications, home med list was changed. Pt takes Proair instead of Ventolin.
[2018-04-18 08:25] LABS: Bedside Glucose 153 mg/dL (70-110)
[2018-04-18] MEDS: Pantoprazole Sodium 40 MG Tablet PO ×2 (10:24→21:07)
[2018-04-18] MEDS: Loratadine 10 MG Tablet PO (10:24)
[2018-04-18] MEDS: Atenolol 50 MG Tablet PO (10:25)
[2018-04-18] MEDS: Aspirin E.C. 81 MG Tablet PO (10:25)
[2018-04-18] MEDS: Furosemide 20 MG Tablet PO (10:25)
[2018-04-18] MEDS: Magnesium Oxide 400 MG Tablet PO (10:25)
[2018-04-18] MEDS: amLODIPine 10 MG Tablet PO (10:25)
[2018-04-18] MEDS: Amiodarone 200 MG Tablet PO (10:25)
[2018-04-18] MEDS: Tolterodine Tartrate 2 MG CAP.SA PO (10:26)
[2018-04-18 11:06] LABS: Bedside Glucose 148 mg/dL (70-110)
[2018-04-18] MEDS: Ferrous Sulfate 325 MG Tablet PO ×2 (11:31→17:35)
--- NOTE | 2018-04-18 14:53 | PCM.PN.HOSP ---
Patient Problems: Active and Suspected Problems Chest pain at rest (Acute) Chest pain (Acute) Subjective: No further chest pain. Vitals/I&O's: Vital Signs Temp Pulse Resp BP Pulse Ox 36.6 C 64 18 142/48 H 100 04/18/18 09:55 04/18/18 11:24 04/18/18 09:55 04/18/18 09:55 04/18/18 09:55 Oxygen Flow Rate (L/min) 2 Oxygen Delivery Method Nasal Cannula Weight: 105.2 kg Body Mass Index (BMI) 41.1 Intake and Output for Last 24 Hours 04/16/18 04/17/18 04/18/18 23:59 23:59 23:59 Intake Total 290 / 290 Balance 290 / 290 General: Alert, No apparent distress HEENT: Atraumatic, Normocephalic Oral: Moist Mucosa, No Gingival or Mucosal Lesions/ Ulcerations Neck: No Nodes, Thyroid Normal Size and Texture Lungs: Clear to auscultation, Normal air movement, No rhonchi, No wheeze Cardiovascular: Regular rate, Regular Rhythm, Normal S1, Normal S2 Abdomen: Bowel Sounds Present, Soft, Non Tender, Non-Distended, Obese Extremities: No edema, No Calf Tenderness Skin: No rashes, No breakdown Psych/Mental Status: Normal Affect, Appropriate Laboratory Results 04/18/18 02:10: WBC 5.5, RBC 4.29, Hgb 11.7 L, Hct 35.5 L, MCV 82.8, MCH 27.3, MCHC 33.0, RDW 16.0 H, RDW Differential 48.1 H, Plt Count 169, MPV 11.8, Immature Gran % (Auto) 0.400, Neut % (Auto) 57.8, Lymph % (Auto) 26.6, [place] % (Auto) 9.4, Eos % (Auto) 4.5, Baso % (Auto) 1.3 H, Absolute Neuts (auto) 3.2, Absolute Lymphs (auto) 1.47, Total Counted Not Reportable 04/18/18 02:10: Sodium 139, Potassium 3.8, Chloride 107, Carbon Dioxide 22.0, Anion Gap 10, BUN 18, Creatinine 0.83, Estim Creat Clear Calc 52.92, Est GFR (MDRD) Af Amer 87, Est GFR (MDRD) Non-Af 72, BUN/Creatinine Ratio 21.6 H, Glucose 178 H, Calcium 8.9, Magnesium 2.0, Troponin I < 0.015 04/18/18 03:00: PT 39.1 H, INR 4.0 H* 04/18/18 05:55: Triglycerides 205 H, Cholesterol 123, LDL Cholesterol 59, VLDL Cholesterol 41 H, HDL Cholesterol 23 L 04/18/18 05:55: Troponin I < 0.015 04/18/18 06:50: POC Glucose 153 H 04/18/18 09:03: Troponin I < 0.015 04/18/18 11:00: POC Glucose 148 H Current Medications Acetaminophen (Tylenol) 650 mg PO Q6H PRN PRN PRN Reason: Mild Pain (1-3)/Temp > 100.7 F [facility] Last Admin: 04/18/18 10:25 Dose: 200 mg Amlodipine Besylate (Norvasc) 10 mg PO DAILY [facility] Last Admin: 04/18/18 10:25 Dose: 10 mg Aspirin (Ecotrin) [facility] Last Admin: 04/18/18 10:25 Dose: 81 mg Atenolol (Tenormin (Beta Arie)) 50 mg PO DAILY [facility] Last Admin: 04/18/18 10:25 Dose: 50 mg Atorvastatin Calcium (Lipitor) 20 mg PO QHS [facility] Buspirone HCl (Buspar) 5 mg PO TID [facility] Last Admin: 04/18/18 14:01 Dose: 5 mg Dextrose (D50w Syringe) 0 gm IV X1 PRN; Protocol PRN Reason: Hypoglycemia Ferrous Sulfate (Ferrous Sulfate) 325 mg PO BIDCM@1200,1700 [facility] Last Admin: 04/18/18 11:31 Dose: 325 mg Furosemide (Lasix) 20 mg PO DAILY [facility] Last Admin: 04/18/18 10:25 Dose: 20 mg Glucagon () 1 mg IM .X1 PRN PRN Reason: Hypoglycemia Insulin Human Lispro (Humalog Kwikpen (Bkc)) 0 unit SQ Q6 [facility]; Protocol Last Admin: 04/18/18 11:31 Dose: Not Given Isosorbide Mononitrate (Imdur) 120 mg PO DAILY [facility] Last Admin: 04/18/18 10:26 Dose: 120 mg Labetalol HCl (Trandate) 10 mg IV Q4H PRN PRN PRN Reason: SBP > 160 Loratadine (Claritin) 10 mg PO DAILY [facility] Last Admin: 04/18/18 10:24 Dose: 10 mg Losartan Potassium (Cozaar) 100 mg PO QHS [facility] Magnesium Hydroxide (Milk Of Magnesia) 30 ml PO DAILY PRN PRN Reason: Constipation Magnesium Oxide (Mag-Ox 400) [facility] Last Admin: 04/18/18 10:25 Dose: 400 mg Meclizine HCl (Antivert) 25 mg PO TID PRN PRN PRN Reason: DIZZINESS Morphine Sulfate () 2 - 4 mg IV Q4H PRN PRN PRN Reason: MOD-SEVERE PAIN (4-10/10) Morphine Sulfate () 2 - 4 mg IV Q4H PRN PRN PRN Reason: MOD-SEVERE PAIN (4-10/10) Nitroglycerin (Nitrostat) 0.4 mg SUBLINGUAL Q5M PRN PRN Reason: CHEST PAIN Nystatin (Mycostatin) 1 applic TOPICAL BID PRN PRN PRN Reason: redness in groin Pantoprazole Sodium (Protonix) 40 mg PO BID [facility] Last Admin: 04/18/18 10:24 Dose: 40 mg Potassium Chloride (K-Dur) 20 meq [facility] Last Admin: 04/18/18 10:25 Dose: 20 meq Sodium Chloride () 5 - 15 ml IV UD PRN PRN Reason: SALINE FLUSH Tizanidine HCl (Zanaflex) 4 mg PO QHS PRN PRN Reason: SPASMS Tolterodine Tartrate (Detrol La) 2 mg PO DAILY [facility] Last Admin: 04/18/18 10:26 Dose: 2 mg Medical Necessity - Tobacco Use Smoking Status: Former smoker Tobacco Use: Cigarettes Assessment/Plan All Active Problems Chest pain at rest (Acute) Chest pain (Acute) Anxiety about health (Acute) Subtherapeutic international normalized ratio (INR) (Acute) Paroxysmal atrial fibrillation with RVR (Acute) 1. chest pain known CAD stress test negative on 03/28 cardiology on consult. 2. DM2 fair control Code Visit Procedures: Other Procedure - See Report - non-billable rounding.
--- NOTE | 2018-04-18 14:57 | PN_ITS ---
Patient Problems: Active and Suspected Problems Chest pain at rest (Acute) Chest pain (Acute) Subjective: No further chest pain. Vitals/I&O's: Vital Signs Temp Pulse Resp BP Pulse Ox 36.6 C 64 18 142/48 H 100 04/18/18 09:55 04/18/18 11:24 04/18/18 09:55 04/18/18 09:55 04/18/18 09:55 Oxygen Flow Rate (L/min) 2 Oxygen Delivery Method Nasal Cannula Weight: 105.2 kg Body Mass Index (BMI) 41.1 Intake and Output for Last 24 Hours 04/16/18 04/17/18 04/18/18 23:59 23:59 23:59 Intake Total 290 / 290 Balance 290 / 290 General: Alert, No apparent distress HEENT: Atraumatic, Normocephalic Oral: Moist Mucosa, No Gingival or Mucosal Lesions/ Ulcerations Neck: No Nodes, Thyroid Normal Size and Texture Lungs: Clear to auscultation, Normal air movement, No rhonchi, No wheeze Cardiovascular: Regular rate, Regular Rhythm, Normal S1, Normal S2 Abdomen: Bowel Sounds Present, Soft, Non Tender, Non-Distended, Obese Extremities: No edema, No Calf Tenderness Skin: No rashes, No breakdown Psych/Mental Status: Normal Affect, Appropriate Laboratory Results 04/18/18 02:10: WBC 5.5, RBC 4.29, Hgb 11.7 L, Hct 35.5 L, MCV 82.8, MCH 27.3, MCHC 33.0, RDW 16.0 H, RDW Differential 48.1 H, Plt Count 169, MPV 11.8, Immature Gran % (Auto) 0.400, Neut % (Auto) 57.8, Lymph % (Auto) 26.6, [place] % (Auto) 9.4, Eos % (Auto) 4.5, Baso % (Auto) 1.3 H, Absolute Neuts (auto) 3.2, Absolute Lymphs (auto) 1.47, Total Counted Not Reportable 04/18/18 02:10: Sodium 139, Potassium 3.8, Chloride 107, Carbon Dioxide 22.0, Anion Gap 10, BUN 18, Creatinine 0.83, Estim Creat Clear Calc 52.92, Est GFR (MDRD) Af Amer 87, Est GFR (MDRD) Non-Af 72, BUN/Creatinine Ratio 21.6 H, Glucose 178 H, Calcium 8.9, Magnesium 2.0, Troponin I < 0.015 04/18/18 03:00: PT 39.1 H, INR 4.0 H* 04/18/18 05:55: Triglycerides 205 H, Cholesterol 123, LDL Cholesterol 59, VLDL Cholesterol 41 H, HDL Cholesterol 23 L 04/18/18 05:55: Troponin I < 0.015 04/18/18 06:50: POC Glucose 153 H 04/18/18 09:03: Troponin I < 0.015 04/18/18 11:00: POC Glucose 148 H Current Medications Acetaminophen (Tylenol) 650 mg PO Q6H PRN PRN PRN Reason: Mild Pain (1-3)/Temp > 100.7 F Amiod[facility] ([facility]) [facility] Last Admin: 04/18/18 10:25 Dose: 200 mg Amlodipine Besylate (Norvasc) 10 mg PO DAILY [facility] Last Admin: 04/18/18 10:25 Dose: 10 mg Aspirin (Ecotrin) [facility] Last Admin: 04/18/18 10:25 Dose: 81 mg Atenolol (Tenormin (Beta Arie)) 50 mg PO DAILY [facility] Last Admin: 04/18/18 10:25 Dose: 50 mg Atorvastatin Calcium (Lipitor) 20 mg PO QHS [facility] Buspirone HCl (Buspar) 5 mg PO TID [facility] Last Admin: 04/18/18 14:01 Dose: 5 mg Dextrose (D50w Syringe) 0 gm IV X1 PRN; Protocol PRN Reason: Hypoglycemia Ferrous Sulfate (Ferrous Sulfate) 325 mg PO BIDCM@1200,1700 [facility] Last Admin: 04/18/18 11:31 Dose: 325 mg Furosemide (Lasix) 20 mg PO DAILY [facility] Last Admin: 04/18/18 10:25 Dose: 20 mg Glucagon () 1 mg IM .X1 PRN PRN Reason: Hypoglycemia Insulin Human Lispro (Humalog Kwikpen (Bkc)) 0 unit SQ Q6 [facility]; Protocol Last Admin: 04/18/18 11:31 Dose: Not Given Isosorbide Mononitrate (Imdur) 120 mg PO DAILY [facility] Last Admin: 04/18/18 10:26 Dose: 120 mg Labetalol HCl (Trandate) 10 mg IV Q4H PRN PRN PRN Reason: SBP > 160 Loratadine (Claritin) 10 mg PO DAILY [facility] Last Admin: 04/18/18 10:24 Dose: 10 mg Losartan Potassium (Cozaar) 100 mg PO QHS [facility] Magnesium Hydroxide (Milk Of Magnesia) 30 ml PO DAILY PRN PRN Reason: Constipation Magnesium Oxide (Mag-Ox 400) [facility] Last Admin: 04/18/18 10:25 Dose: 400 mg Meclizine HCl (Antivert) 25 mg PO TID PRN PRN PRN Reason: DIZZINESS Morphine Sulfate () 2 - 4 mg IV Q4H PRN PRN PRN Reason: MOD-SEVERE PAIN (4-10/10) Morphine Sulfate () 2 - 4 mg IV Q4H PRN PRN PRN Reason: MOD-SEVERE PAIN (4-10/10) Nitroglycerin (Nitrostat) 0.4 mg SUBLINGUAL Q5M PRN PRN Reason: CHEST PAIN Nystatin (Mycostatin) 1 applic TOPICAL BID PRN PRN PRN Reason: redness in groin Pantoprazole Sodium (Protonix) 40 mg PO BID [facility] Last Admin: 04/18/18 10:24 Dose: 40 mg Potassium Chloride (K-Dur) [facility]q [facility] Last Admin: 04/18/18 10:25 Dose: 20 meq Sodium Chloride () 5 - 15 ml IV UD PRN PRN Reason: SALINE FLUSH Tizanidine HCl (Zanaflex) 4 mg PO QHS PRN PRN Reason: SPASMS Tolterodine Tartrate (Detrol La) 2 mg PO DAILY [facility] Last Admin: 04/18/18 10:26 Dose: 2 mg Medical Necessity - Tobacco Use Smoking Status: Former smoker Tobacco Use: Cigarettes Assessment/Plan All Active Problems Chest pain at rest (Acute) Chest pain (Acute) Anxiety about health (Acute) Subtherapeutic international normalized ratio (INR) (Acute) Paroxysmal atrial fibrillation with RVR (Acute) 1. chest pain * known CAD * stress test negative on 03/28 * cardiology on consult. 2. DM2 * fair control Code Visit Procedures: Other Procedure - See Report - non-billable rounding.
[2018-04-18 17:41] LABS: Bedside Glucose 186 mg/dL (70-110)
--- NOTE | 2018-04-18 18:48 | NURSING ---
PT C/O BLOODY NOSE, REQUESTS SALINE NASAL SPRAY - RN NOTIFIED
--- NOTE | 2018-04-18 20:44 | PCM.CONS.C ---
Problem List (1) Chest pain Status: Acute (2) CAD (coronary artery disease) Status: Chronic (3) Hx of CABG Status: Chronic (4) H/O prosthetic aortic valve replacement Status: Chronic Comment: 1994 (5) Paroxysmal atrial fibrillation with RVR Status: Chronic (6) Sinus bradycardia Status: Inactive (7) HLD (hyperlipidemia) Status: Chronic (8) Hypertension Status: Chronic (9) Type 2 diabetes mellitus Status: Chronic (10) Chronic obstructive lung disease Status: Chronic (11) Morbid obesity Status: Chronic Reason for Consult Date of Consultation: 04/18/18 History of Present Illness: The patient is a 68 year old white female who has previously been followed by Dr. Wade Cramer formerly of [facility] cardiology who presents back to the [facility] for the third time this month for a variety of concerns of chest discomfort, palpitations, and anxiety that she may need a redo open heart surgery and a redo aortic valve replacement and readily admitting she is afraid to go home. She has been evaluated earlier this month x2 by Ferny Marie MD of the [facility]. During this time she is undergone noninvasive evaluation and medication adjustment. It appears that she had a transthoracic echocardiogram performed on 03/27/2018. At that time her left ventricle was described as normal with an LVEF of 60%, mild MR, a stable appearing mechanical aortic valve prosthesis with a peak gradient of approximately 69 mmHg, mean gradient of approximately 36 mmHg, and an aortic valve area of approximately 1.0 cm?. According to previous medical records it appeared that this was considered similar to previous outside [facility] echocardiographic studies. She also underwent evaluation with a pharmacologic stress nuclear imaging study on 03/28/2018. According to report a small anterolateral infarct cannot be completely excluded, there is no evidence of inducible ischemia, the LVEF was 64%. There apparently were concerns based upon her underlying cardiac rate and rhythm with atrial fibrillation with subsequent postconversion pauses and bradycardia. Her medications were adjusted. She was eventually released home. However, there were comments that she should be considered for further evaluation with diagnostic cardiac catheterization. This did not occur during either 1 of her hospitalizations. She notes she was to follow-up with Dr. Schrader today. However she states based upon concerns of recurrent chest pressure, a quivering sensation in her chest, followed by the anxiety of being at home, superimposed upon chronic shortness of breath/dyspnea and peripheral pitting edema, she elected to present back to the hospital for reevaluation. Thus far her cardiac enzymes have been negative. Her ECG has demonstrated sinus rhythm with nonspecific ST segment abnormality. Her INR was therapeutic at 4.0. [] Past Medical History Allergies/Adverse Reactions: Allergies adhesive Allergy (Verified 04/18/18 02:03) Rash fluticasone propionate [From Advair Diskus] Allergy (Verified 04/18/18 02:03) chest pain gabapentin [From Neurontin] Allergy (Verified 04/18/18 02:03) Swelling of feet and legs salmeterol xinafoate [From Advair Diskus] Allergy (Verified 04/18/18 02:03) chest pains albuterol [From Ventolin HFA] Adverse Reaction (Verified 04/18/18 02:03) jittery TOO JITTERY cephalexin monohydrate [From Keflex] Adverse Reaction (Verified 04/18/18 02:03) abdominal cramping diltiazem [From Cardizem] Adverse Reaction (Verified 04/18/18 06:08) Other pregabalin Adverse Reaction (Verified 04/18/18 02:03) makes me slow to respond Home Medications: Ambulatory Orders Medication Instructions Recorded Aspirin [Aspirin EC] 81 mg PO DAILY 10/23/16 Furosemide [Lasix] 20 mg PO DAILY 10/23/16 Lansoprazole [Prevacid] 30 mg PO BID 10/23/16 Loratadine 10 mg PO DAILY 10/23/16 Losartan Potassium [Cozaar] 100 mg PO QHS 10/23/16 Metformin(XR) [Glucophage Xr] 1,000 mg PO BID 10/23/16 Polyethylene Glycol 3350 17 gm PO DAILY PRN 10/23/16 Warfarin [Coumadin] 6 mg PO SUMOWEFRSA 10/23/16 glipiZIDE [Glucotrol] 10 mg PO DAILY@0730 10/23/16 Atorvastatin Calcium [Lipitor] 20 mg PO QHS 03/26/18 Ferrous Sulfate 325 mg PO BIDCM 03/26/18 Meclizine HCl [Antivert] 25 mg PO TID PRN PRN 03/26/18 Mupirocin [Bactroban] 1 applicatio NASAL TID PRN 03/26/18 Nitroglycerin [Nitrostat] 0.4 mg SUBLINGUAL Q5M PRN 12/03/18 Nystatin 1 applicatio TP BID PRN 03/26/18 Oxybutynin Chloride [Ditropan Xl] 10 mg PO DAILY 03/26/18 Tizanidine HCl 4 mg PO QHS PRN 03/26/18 Warfarin Sodium 3 mg PO TUTH 03/26/18 Amlodipine [Norvasc] 10 mg PO DAILY #30 tablet 03/28/18 Atenolol [Tenormin (beta yi)] 50 mg PO DAILY #30 tablet 03/28/18 Isosorbide Mononitrate [Imdur] 120 mg PO DAILY #30 tablet 03/28/18 Amiodarone HCl [Cordarone] 200 mg PO DAILY #30 tablet 04/13/18 Linagliptin [Tradjenta] 5 mg PO DAILY #30 tablet 04/13/18 Magnesium Oxide [Mag-Ox 400] 400 mg PO DAILYCM #30 tablet 04/13/18 Potassium Chloride [K-Dur] 20 meq PO DAILYCM #30 tablet 04/13/18 busPIRone [Buspar] 5 mg PO TID #90 tablet 04/13/18 Albuterol IH (ProAir) [Proair Hfa 2 puff INHALATION Q4H PRN PRN 04/18/18 (SP)Vent Pts] Past Medical History (Chronic Problems): Chronic Problems HLD (hyperlipidemia) (Chronic) Moderate aortic stenosis (Chronic) Morbid obesity (Chronic) Paroxysmal atrial fibrillation with RVR (Chronic) H/O prosthetic aortic valve replacement (Chronic) 1994 CAD (coronary artery disease) (Chronic) Hx of CABG (Chronic) Type 2 diabetes mellitus (Chronic) Hypertension (Chronic) Chronic obstructive lung disease (Chronic) Surgical History: - - aortic valve replacement 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: No pertinent psych hx [employer] History: No pertinent [employer] history - *Family History Sibling History Items: Cancer - colorectal cancer in sister, Heart Disease Maternal History Items: Heart Disease, Hypertension Paternal History Items: Heart Disease, Hypertension Lives: With Family Smoking Status: Former smoker Tobacco Use: Cigarettes Review of Systems - Review of Systems General: Denies: Fever, Night Sweats, Fatigue Cardiovascular: Reports: Chest Discomfort, Chest Discomfort at Rest, Shortness of Breath, Shortness of Breath at Rest, Shortness of Breath with Exertion, Palpitations. Denies: Orthopnea, PND, Peripheral Edema, Lightheadedness, Dizziness, Near Syncope, Syncope Respiratory: Reports: Shortness of Breath. Denies: Cough, Sputum Production, Hemoptysis Gastrointestinal: Denies: Hematemesis, Hematochezia, Melena Genitourinary: Denies: Dysuria, Hematuria Skin: Denies: Rash Subjectve: This is a 68-year-old white female who appears resting comfortably at the moment in no acute distress. Objective: Vital Signs Temp Pulse Resp BP Pulse Ox 97 F L 65 16 133/49 H 92 04/18/18 15:29 04/18/18 19:05 04/18/18 15:29 04/18/18 15:29 04/18/18 15:29 Oxygen Flow Rate (L/min) 2 Oxygen Delivery Method Room Air Weight: 231 lb 14.821 oz Body Mass Index (BMI) 41.1 Intake and Output for Last 24 Hours 04/16/18 04/17/18 04/18/18 23:59 23:59 23:59 Intake Total 770 / 770 Balance 770 / 770 General: Awake, Alert, Oriented x 3, Cooperative, No Acute Distress, Obese HEENT: Atraumatic, Normocephalic, PERRL, EOMI, Sclera Non Icteric Oral: Moist Mucosa Neck: Supple, Good ROM, No JVD Lungs: Clear to auscultation Cardiovascular: Regular Rhythm, Normal S1, Walsh Prosthetic S2 Vascular: No Carotid Bruits Abdomen: Bowel Sounds Present, Soft Extremities: No Cyanosis, No Clubbing, No edema Neurological: No Focal Motor or Sensory Deficit Psych/Mental Status: Appropriate 04/18/18 02:10: WBC 5.5, RBC 4.29, Hgb 11.7 L, Hct 35.5 L, MCV 82.8, MCH 27.3, MCHC 33.0, RDW 16.0 H, RDW Differential 48.1 H, Plt Count 169, MPV 11.8, Immature Gran % (Auto) 0.400, Neut % (Auto) 57.8, Lymph % (Auto) 26.6, [place] % (Auto) 9.4, Eos % (Auto) 4.5, Baso % (Auto) 1.3 H, Absolute Neuts (auto) 3.2, Total Counted Not Reportable 04/18/18 02:10: Sodium 139, Potassium 3.8, Chloride 107, Carbon Dioxide 22.0, Anion Gap 10, BUN 18, Creatinine 0.83, Est GFR (MDRD) Af Amer 87, Est GFR (MDRD) Non-Af 72, BUN/Creatinine Ratio 21.6 H, Glucose 178 H, Calcium 8.9, Magnesium 2.0, Troponin I < 0.015 04/18/18 03:00: PT 39.1 H, INR 4.0 H* 04/18/18 05:55: Triglycerides 205 H, Cholesterol 123, LDL Cholesterol 59, VLDL Cholesterol 41 H, HDL Cholesterol 23 L 04/18/18 05:55: Troponin I < 0.015 04/18/18 09:03: Troponin I < 0.015 Rhythm: Sinus rhythm EKG: As noted above ECHO: As noted above Stress Test: As noted above CT Surgery: VS report unavailable for review at this time, however, based on previous [facility] medical record there is comments that the patient received a SHELBY to the LAD, and SVG to the LCx, and an SVG to the RCA CXR: Preliminary evaluation: Postoperative changes: No acute cardiopulmonary disease process appreciated: Please see official report Assessment/Plan 1. CAD status post CABG-remote The patient has a history of CAD status post remote CABG. She has been having recurrent chest discomfort. She has undergone evaluation with cardiac enzymes which have been negative. Her ECG demonstrates no acute changes. She is also undergone evaluation earlier this month with both a transthoracic echocardiogram and an exercise tolerance test/imaging study-pharmacologic. The studies demonstrated her left ventricle to be preserved with respect to wall motion and systolic function and no definitive evidence of ongoing myocardial ischemia. The patient has been considered based on the previous cardiovascular consultation notes for cardiac catheterization. However this is not been accomplished thus far. At the present time the patient can continue to be monitored. The patient can be considered for further evaluation with diagnostic cardiac catheterization. However her anticoagulant will have to be placed on hold and her INR will have to be allowed to decrease. Once that occurs her anticoagulant therapy can be adjusted to IV heparin as a bridge with respect to her aortic valve prosthesis. She could then undergo diagnostic cardiac catheterization, and eventually be placed back on IV heparin and then subsequently her oral anticoagulant. 2. Status post aortic valve replacement The patient does have a mechanical aortic valve prosthesis. Her most recent noninvasive study is as noted above. It is unclear at this time, noting that the report states there is no significant change compared to previous [facility] echocardiogram, as to whether or not she is symptomatic with respect to her aortic valve based upon her gradients, etc. and what it can some point in time being need for a redo aortic valve replacement surgery. In the interim she should continue AHA antibiotic prophylaxis as deemed appropriate and anticoagulant therapy as deemed appropriate. 3. Paroxysmal atrial fibrillation At the present time she remains in sinus rhythm. She will continue a combination of rate control therapy, antiarrhythmic therapy, and anticoagulant therapy as deemed appropriate. 4. Bradycardia Apparently there is been concerns in the past that she has developed episodes of bradycardia especially post return to sinus rhythm. Thus her medications have been adjusted in the past. At the moment her rate and rhythm. Be stable. She will continue to be followed. 5. Hyperlipidemia She will continue medical management. 6. Hypertension Her blood pressure can be followed. Her medications can be adjusted as needed. 7. Diabetes The patient will need to continue on her care of internal medicine for her diabetes. 8. COPD The patient does have a history of COPD. This can contribute to her shortness of breath and dyspnea. He could also potentially contribute to concerns of her atrial dysrhythmia. She will need continue evaluation care per internal medicine and pulmonology as deemed appropriate. 9. Obesity The patient remains overweight. Again this could contribute to her shortness of breath and dyspnea as well. He has been counseled on dietary adjustment and exercise as best as possible and attempt to bring her weight under better control. This note was generated using a voice recognition system and there may be incorrect words, spelling or punctuation that were not noted when reviewing the office note prior to saving.
--- NOTE | 2018-04-18 20:48 | CON.PCM_ITS ---
Problem List (1) Chest pain Status: Acute (2) CAD (coronary artery disease) Status: Chronic (3) Hx of CABG Status: Chronic (4) H/O prosthetic aortic valve replacement Status: Chronic Comment: 1994 (5) Paroxysmal atrial fibrillation with RVR Status: Chronic (6) Sinus bradycardia Status: Inactive (7) HLD (hyperlipidemia) Status: Chronic (8) Hypertension Status: Chronic (9) Type 2 diabetes mellitus Status: Chronic (10) Chronic obstructive lung disease Status: Chronic (11) Morbid obesity Status: Chronic Reason for Consult Date of Consultation: 04/18/18 History of Present Illness: The patient is a 68 year old white female who has previously been followed by Dr. Wade Cramer formerly of [facility] cardiology who presents back to the [facility] for the third time this month for a variety of concerns of chest discomfort, palpitations, and anxiety that she may need a redo open heart surgery and a redo aortic valve replacement and readily admitting she is afraid to go home. She has been evaluated earlier this month x2 by Ferny Marie MD of the [facility]. During this time she is undergone noninvasive evaluation and medication adjustment. It appears that she had a transthoracic echocardiogram performed on 03/27/2018. At that time her left ventricle was described as normal with an LVEF of 60%, mild MR, a stable appearing mechanical aortic valve prosthesis with a peak grad ient of approximately 69 mmHg, mean gradient of approximately 36 mmHg, and an aortic valve area of approximately 1.0 cm?. According to previous medical records it appeared that this was considered similar to previous outside [facility] echocardiographic studies. She also underwent evaluation with a pharmacologic stress nuclear imaging study on 03/28/2018. According to report a small anterolateral infarct cannot be completely excluded, there is no evidence of inducible ischemia, the LVEF was 64%. There apparently were concerns based upon her underlying cardiac rate and rhythm with atrial fibrillation with subsequent postconversion pauses and bradycardia. Her medications were adjusted. She was eventually released home. However, there were comments that she should be considered for further gumaro luation with diagnostic cardiac catheterization. This did not occur during either 1 of her hospitalizations. She notes she was to follow-up with Dr. Schrader today. However she states based upon concerns of recurrent chest pressure, a quivering sensation in her chest, followed by the anxiety of being at home, superimposed upon chronic shortness of breath/dyspnea and peripheral pitting edema, she elected to present back to the hospital for reevaluation. Thus far her cardiac enzymes have been negative. Her ECG has demonstrated sinus rhythm with nonspecific ST segment abnormality. Her INR was therapeutic at 4.0. [] Past Medical History Allergies/Adverse Reactions: Allergies adhesive Allergy (Verified 04/18/18 02:03) Rash fluticasone propionate [From Advair Diskus] Allergy (Verified 04/18/18 02:03) chest pain gabapentin [From Neurontin] Allergy (Verified 04/18/18 02:03) Swelling of feet and legs salmeterol xinafoate [From Advair Diskus] Allergy (Verified 04/18/18 02:03) chest pains albuterol [From Ventolin HFA] Adverse Reaction (Verified 04/18/18 02:03) jittery TOO JITTERY cephalexin monohydrate [From Keflex] Adverse Reaction (Verified 04/18/18 02:03) abdominal cramping diltiazem [From Cardizem] Adverse Reaction (Verified 04/18/18 06:08) Other pregabalin Adverse Reaction (Verified 04/18/18 02:03) makes me slow to respond Home Medications: Ambulatory Orders Medication Instructions Recorded Aspirin [Aspirin EC] 81 mg PO DAILY 10/23/16 Furosemide [Lasix] 20 mg PO DAILY 10/23/16 Lansoprazole [Prevacid] 30 mg PO BID 10/23/16 Loratadine 10 mg PO DAILY 10/23/16 Losartan Potassium [Cozaar] 100 mg PO QHS 10/23/16 Metformin(XR) [Glucophage Xr] 1,000 mg PO BID 10/23/16 Polyethylene Glycol 3350 17 gm PO DAILY PRN 10/23/16 Warfarin [Coumadin] 6 mg PO SUMOWEFRSA 10/23/16 glipiZIDE [Glucotrol] 10 mg PO DAILY@0730 10/23/16 Atorvastatin Calcium [Lipitor] 20 mg PO QHS 03/26/18 Ferrous Sulfate 325 mg PO BIDCM 03/26/18 Meclizine HCl [Antivert] 25 mg PO TID PRN PRN 03/26/18 Mupirocin [Bactroban] 1 applicatio NASAL TID PRN 03/26/18 Nitroglycerin [Nitrostat] 0.4 mg SUBLINGUAL Q5M PRN 03/26/18 Nystatin 1 applicatio TP BID PRN 03/26/18 Oxybutynin Chloride [Ditropan Xl] 10 mg PO DAILY 03/26/18 Tizanidine HCl 4 mg PO QHS PRN 03/26/18 Warfarin Sodium 3 mg PO TUTH 03/26/18 Amlodipine [Norvasc] 10 mg PO DAILY #30 tablet 03/28/18 Atenolol [Tenormin (beta yi)] 50 mg PO DAILY #30 tablet 03/28/18 Isosorbide Mononitrate [Imdur] 120 mg PO DAILY #30 tablet 03/28/18 Amiodarone HCl [Cordarone] 200 mg PO DAILY #30 tablet 04/13/18 Linagliptin [Tradjenta] 5 mg PO DAILY #30 tablet 04/13/18 Magnesium Oxide [Mag-Ox 400] 400 mg PO DAILYCM #30 tablet 04/13/18 Potassium Chloride [K-Dur] 20 meq PO DAILYCM #30 tablet 04/13/18 busPIRone [Buspar] 5 mg PO TID #90 tablet 04/13/18 Albuterol IH (ProAir) [Proair Hfa 2 puff INHALATION Q4H PRN PRN 04/18/18 (SP)Vent Pts] Past Medical History (Chronic Problems): Chronic Problems HLD (hyperlipidemia) (Chronic) Moderate aortic stenosis (Chronic) Morbid obesity (Chronic) Paroxysmal atrial fibrillation with RVR (Chronic) H/O prosthetic aortic valve replacement (Chronic) 1994 CAD (coronary artery disease) (Chronic) Hx of CABG (Chronic) Type 2 diabetes mellitus (Chronic) Hypertension (Chronic) Chronic obstructive lung disease (Chronic) Surgical History: - - aortic valve replacement 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: No pertinent psych hx 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 Denies: Orthopnea, PND, Peripheral Edema, Lightheadedness, Dizziness, Near Syncope, Syncope Respiratory: Reports: Shortness of Breath. Denies: Cough, Sputum Production, Hemoptysis Gastrointestinal: Denies: Hematemesis, Hematochezia, Melena Genitourinary: Denies: Dysuria, Hematuria Skin: Denies: Rash Subjectve: This is a 68-year-old white female who appears resting comfortably at the moment in no acute distress. Objective: Vital Signs Temp Pulse Resp BP Pulse Ox 97 F L 65 16 133/49 H 92 04/18/18 15:29 04/18/18 19:05 04/18/18 15:29 04/18/18 15:29 04/18/18 15:29 Oxygen Flow Rate (L/min) 2 Oxygen Delivery Method Room Air Weight: 231 lb 14.821 oz Body Mass Index (BMI) 41.1 Intake and Output for Last 24 Hours 04/16/18 04/17/18 04/18/18 23:59 23:59 23:59 Intake Total 770 / 770 Balance 770 / 770 General: Awake, Alert, Oriented x 3, Cooperative, No Acute Distress, Obese HEENT: Atraumatic, Normocephalic, PERRL, EOMI, Sclera Non Icteric Oral: Moist Mucosa Neck: Supple, Good ROM, No JVD Lungs: Clear to auscultation Cardiovascular: Regular Rhythm, Normal S1, Bollinger Prosthetic S2 Vascular: No Carotid Bruits Abdomen: Bowel Sounds Present, Soft Extremities: No Cyanosis, No Clubbing, No edema Neurological: No Focal Motor or Sensory Deficit Psych/Mental Status: Appropriate 04/18/18 02:10: WBC 5.5, RBC 4.29, Hgb 11.7 L, Hct 35.5 L, MCV 82.8, MCH 27.3, MCHC 33.0, RDW 16.0 H, RDW Differential 48.1 H, Plt Count 169, MPV 11.8, Immature Gran % (Auto) 0.400, Neut % (Auto) 57.8, Lymph % (Auto) 26.6, [place] % (Auto) 9.4, Eos % (Auto) 4.5, Baso % (Auto) 1.3 H, Absolute Neuts (auto) 3.2, Total Counted Not Reportable 04/18/18 02:10: Sodium 139, Potassium 3.8, Chloride 107, Carbon Dioxide 22.0, Anion Gap 10, BUN 18, Creatinine 0.83, Est GFR (MDRD) Af Amer 87, Est GFR (MDRD) Non-Af 72, BUN/Creatinine Ratio 21.6 H, Glucose 178 H, Calcium 8.9, Magnesium 2.0, Troponin I < 0.015 04/18/18 03:00: PT 39.1 H, INR 4.0 H* 04/18/18 05:55: Triglycerides 205 H, Cholesterol 123, LDL Cholesterol 59, VLDL Cholesterol 41 H, HDL Cholesterol 23 L 04/18/18 05:55: Troponin I < 0.015 04/18/18 09:03: Troponin I < 0.015 Rhythm: Sinus rhythm EKG: As noted above ECHO: As noted above Stress Test: As noted above CT Surgery: VS report unavailable for review at this time, however, based on previous [facility] medical record there is comments that the patient received a SHELBY to the LAD, and SVG to the LCx, and an SVG to the RCA CXR: Preliminary evaluation: Postoperative changes: No acute cardiopulmonary disease process appreciated: Please see official report Assessment/Plan 1. CAD status post CABG-remote The patient has a history of CAD status post remote CABG. She has been having recurrent chest discomfort. She has undergone evaluation with cardiac enzymes which have been negative. Her ECG demonstrates no acute changes. She is also undergone evaluation earlier this month with both a transthoracic echocardiogram and an exercise tolerance test/imaging study-pharmacologic. The studies demonstrated her left ventricle to be preserved with respect to wall motion and systolic function and no definitive evidence of ongoing myocardial ischemia. The patient has been considered based on the previous cardiovascular consultation notes for cardiac catheterization. However this is not been accomplished thus far. At the present time the patient can continue to be monitored. The patient can be considered for further evaluation with diagnostic cardiac catheterization. However her anticoagulant will have to be placed on hold and her INR will have to be allowed to decrease. Once that occurs her anticoagulant therapy can be adjusted to IV heparin as a bridge with respect to her aortic valve prosthesis. She could then undergo diagnostic cardiac catheterization, and eventually be placed back on IV heparin and then subsequently her oral anticoagulant. 2. Status post aortic valve replacement The patient does have a mechanical aortic valve prosthesis. Her most recent noninvasive study is as noted above. It is unclear at this time, noting that the report states there is no significant change compared to previous [facility] echocardiogram, as to whether or not she is symptomatic with respect to her aortic valve based upon her gradients, etc. and what it can some point in time being need for a redo aortic valve replacement surgery. In the interim she should continue AHA antibiotic prophylaxis as deemed appropriate and anticoagulant therapy as deemed appropriate. 3. Paroxysmal atrial fibrillation At the present time she remains in sinus rhythm. She will continue a combination of rate control therapy, antiarrhythmic therapy, and anticoagulant therapy as deemed appropriate. 4. Bradycardia Apparently there is been concerns in the past that she has developed episodes of bradycardia especially post return to sinus rhythm. Thus her medications have been adjusted in the past. At the moment her rate and rhythm. Be stable. She will continue to be followed. 5. Hyperlipidemia She will continue medical management. 6. Hypertension Her blood pressure can be followed. Her medications can be adjusted as needed. 7. Diabetes The patient will need to continue on her care of internal medicine for her diabetes. 8. COPD The patient does have a history of COPD. This can contribute to her shortness of breath and dyspnea. He could also potentially contribute to concerns of her atrial dysrhythmia. She will need continue evaluation care per internal medicine and pulmonology as deemed appropriate. 9. Obesity The patient remains overweight. Again this could contribute to her shortness of breath and dyspnea as well. He has been counseled on dietary adjustment and exercise as best as possible and attempt to bring her weight under better control. This note was generated using a voice recognition system and there may be incorrect words, spelling or punctuation that were not noted when reviewing the office note prior to saving.
[2018-04-18] MEDS: Atorvastatin Calcium 20 MG Tablet PO (21:07)
[2018-04-18] MEDS: Losartan Potassium 100 MG Tablet PO (21:07)
[2018-04-19] VITALS (11 sets, daily range): BP systolic 113–157; BP diastolic 42–57; PULSE 53–63; RESP 16–18; TEMP 36.3–36.7; O2SAT 92–97
[2018-04-19] MEDS: MELATONIN 10 MG TABLET 5 MG PO ×2 (00:23→21:12)
[2018-04-19 00:36] LABS: Bedside Glucose 130 mg/dL (70-110)
[2018-04-19] MEDS: Insulin Lispro 100 UNIT/ML INSULN.PEN SQ ×4 (07:05→23:57)
[2018-04-19] MEDS: busPIRone 5 MG Tablet PO ×3 (07:05→21:12)
[2018-04-19 07:11] LABS: Bedside Glucose 154 mg/dL (70-110)
[2018-04-19 07:29] LABS: International Normalized Ratio 3.3; Prothrombin Time (Protime)PT. 33.7 SECONDS (11.7-14.9)
--- NOTE | 2018-04-19 07:42 | CASEMGMT ---
Patient has healthcare POA and healthcare LW on file. Demi QUINTERO SHELL SIEVE OPERATOR
[2018-04-19] MEDS: Tolterodine Tartrate 2 MG CAP.SA PO (09:03)
[2018-04-19] MEDS: Furosemide 20 MG Tablet PO (09:03)
[2018-04-19] MEDS: Pantoprazole Sodium 40 MG Tablet PO ×2 (09:03→21:13)
[2018-04-19] MEDS: Amiodarone 200 MG Tablet PO (09:03)
[2018-04-19] MEDS: Magnesium Oxide 400 MG Tablet PO (09:03)
[2018-04-19] MEDS: Atenolol 50 MG Tablet PO (09:03)
[2018-04-19] MEDS: Loratadine 10 MG Tablet PO (09:03)
[2018-04-19] MEDS: Aspirin E.C. 81 MG Tablet PO (09:04)
[2018-04-19] MEDS: amLODIPine 10 MG Tablet PO (09:05)
[2018-04-19] MEDS: Ferrous Sulfate 325 MG Tablet PO ×2 (11:47→17:24)
[2018-04-19] MEDS: Phytonadione (Vit K) 10 MG/ML Ampul 5 MG PO ×2 (11:48→18:47)
[2018-04-19 12:05] LABS: Bedside Glucose 216 mg/dL (70-110)
--- NOTE | 2018-04-19 13:13 | CASEMGMT ---
RN CM NOTE: FERRELL form reviewed with pt and questions answered. Copy of form made and placed on pt's chart. Pt given original. Adeel CALDERON RN CM
--- NOTE | 2018-04-19 13:35 | PCM.PN.HOSP ---
Patient Problems: Active and Suspected Problems Chest pain at rest (Acute) Chest pain (Acute) Subjective: anxious about heart cath tentatively for 04/20. Vitals/I&O's: Vital Signs Temp Pulse Resp BP Pulse Ox 36.3 C L 60 18 120/54 L 94 04/19/18 09:00 04/19/18 09:00 04/19/18 09:00 04/19/18 09:00 04/19/18 09:00 Oxygen Flow Rate (L/min) 3 Oxygen Delivery Method Room Air Weight: 105.2 kg Body Mass Index (BMI) 41.1 Intake and Output for Last 24 Hours 04/17/18 04/18/18 04/19/18 23:59 23:59 23:59 Intake Total 770 / 770 600 / 600 Balance 770 / 770 600 / 600 General: Alert, Cooperative, No apparent distress HEENT: Atraumatic, Normocephalic Oral: Moist Mucosa, No Gingival or Mucosal Lesions/ Ulcerations Neck: No Nodes, Thyroid Normal Size and Texture Lungs: Clear to auscultation, Normal air movement, No rhonchi, No wheeze Cardiovascular: Regular rate, Regular Rhythm, Normal S1, Normal S2, No murmurs Abdomen: Bowel Sounds Present, Soft, Non Tender, Non-Distended, No Hepato-splenomegaly Extremities: No edema, No Calf Tenderness Laboratory Results 04/18/18 17:28: POC Glucose 186 H 04/19/18 00:22: POC Glucose 130 H 04/19/18 06:45: PT 33.7 H, INR 3.3 04/19/18 07:04: POC Glucose 154 H 04/19/18 11:55: POC Glucose 216 H Current Medications Acetaminophen (Tylenol) 650 mg PO Q6H PRN PRN PRN Reason: Mild Pain (1-3)/Temp > 100.7 F [facility] Last Admin: 04/19/18 09:03 Dose: 200 mg Amlodipine Besylate (Norvasc) 10 mg PO DAILY [facility] Last Admin: 04/19/18 09:05 Dose: 10 mg Aspirin (Ecotrin) [facility] Last Admin: 04/19/18 09:04 Dose: 81 mg Atenolol (Tenormin (Beta Arie)) 50 mg PO DAILY [facility] Last Admin: 04/19/18 09:03 Dose: 50 mg Atorvastatin Calcium (Lipitor) 20 mg PO QHS [facility] Last Admin: 04/18/18 21:07 Dose: 20 mg Buspirone HCl (Buspar) 5 mg PO TID [facility] Last Admin: 04/19/18 07:05 Dose: 5 mg Dextrose (D50w Syringe) 0 gm IV X1 PRN; Protocol PRN Reason: Hypoglycemia Ferrous Sulfate (Ferrous Sulfate) 325 mg PO BIDCM@1200,1700 [facility] Last Admin: 04/19/18 11:47 Dose: 325 mg Furosemide (Lasix) 20 mg PO DAILY [facility] Last Admin: 04/19/18 09:03 Dose: 20 mg Glucagon () 1 mg IM .X1 PRN PRN Reason: Hypoglycemia Insulin Human Lispro (Humalog Kwikpen (Bkc)) 0 unit SQ Q6 [facility]; Protocol Last Admin: 04/19/18 11:56 Dose: 1 u Isosorbide Mononitrate (Imdur) 120 mg PO DAILY [facility] Last Admin: 04/19/18 09:03 Dose: 120 mg Labetalol HCl (Trandate) 10 mg IV Q4H PRN PRN PRN Reason: SBP > 160 Loratadine (Claritin) 10 mg PO DAILY [facility] Last Admin: 04/19/18 09:03 Dose: 10 mg Losartan Potassium (Cozaar) 100 mg PO QHS [facility] Last Admin: 04/18/18 21:07 Dose: 100 mg Magnesium Hydroxide (Milk Of Magnesia) 30 ml PO DAILY PRN PRN Reason: Constipation Magnesium Oxide (Mag-Ox 400) [facility] Last Admin: 04/19/18 09:03 Dose: 400 mg Meclizine HCl (Antivert) 25 mg PO TID PRN PRN PRN Reason: DIZZINESS Melatonin (Melatonin) 5 mg PO QHS PRN PRN Reason: SLEEP Last Admin: 04/19/18 00:23 Dose: 5 mg Morphine Sulfate () 2 - 4 mg IV Q4H PRN PRN PRN Reason: MOD-SEVERE PAIN (4-10/10) Morphine Sulfate () 2 - 4 mg IV Q4H PRN PRN PRN Reason: MOD-SEVERE PAIN (4-10/10) Nitroglycerin (Nitrostat) 0.4 mg SUBLINGUAL Q5M PRN PRN Reason: CHEST PAIN Nystatin (Mycostatin) 1 applic TOPICAL BID PRN PRN PRN Reason: redness in groin Pantoprazole Sodium (Protonix) 40 mg PO BID [facility] Last Admin: 04/19/18 09:03 Dose: 40 mg Potassium Chloride (K-Dur) 20 meq PO DAILYCM [facility] Last Admin: 04/19/18 09:03 Dose: 20 meq Sodium Chloride () 5 - 15 ml IV UD PRN PRN Reason: SALINE FLUSH Tizanidine HCl (Zanaflex) 4 mg PO QHS PRN PRN Reason: SPASMS Tolterodine Tartrate (Detrol La) 2 mg PO DAILY [facility] Last Admin: 04/19/18 09:03 Dose: 2 mg Medical Necessity - Tobacco Use Smoking Status: Former smoker Tobacco Use: Cigarettes Assessment/Plan All Active Problems Chest pain at rest (Acute) Chest pain (Acute) Anxiety about health (Acute) Subtherapeutic international normalized ratio (INR) (Acute) 1. chest pain known CAD stress test negative on 03/28 cardiology on consult. plan for LHC on 04.20 2. DM2 fair control 3. Mechanical AVR coumadin held in anticipation of LHC INR still 3.3 today received 5mg of Vitamin K today will need heparin or LMWH to bridge back to goal INR Code Visit OBSV E&M: 09933 Subsequent observation care L2
--- NOTE | 2018-04-19 13:39 | PN_ITS ---
Patient Problems: Active and Suspected Problems Chest pain at rest (Acute) Chest pain (Acute) Subjective: anxious about heart cath tentatively for 04/20. Vitals/I&O's: Vital Signs Temp Pulse Resp BP Pulse Ox 36.3 C L 60 18 120/54 L 94 04/19/18 09:00 04/19/18 09:00 04/19/18 09:00 04/19/18 09:00 04/19/18 09:00 Oxygen Flow Rate (L/min) 3 Oxygen Delivery Method Room Air Weight: 105.2 kg Body Mass Index (BMI) 41.1 Intake and Output for Last 24 Hours 04/17/18 04/18/18 04/19/18 23:59 23:59 23:59 Intake Total 770 / 770 600 / 600 Balance 770 / 770 600 / 600 General: Alert, Cooperative, No apparent distress HEENT: Atraumatic, Normocephalic Oral: Moist Mucosa, No Gingival or Mucosal Lesions/ Ulcerations Neck: No Nodes, Thyroid Normal Size and Texture Lungs: Clear to auscultation, Normal air movement, No rhonchi, No wheeze Cardiovascular: Regular rate, Regular Rhythm, Normal S1, Normal S2, No murmurs Abdomen: Bowel Sounds Present, Soft, Non Tender, Non-Distended, No Hepato- splenomegaly Extremities: No edema, No Calf Tenderness Laboratory Results 04/18/18 17:28: POC Glucose 186 H 04/19/18 00:22: POC Glucose 130 H 04/19/18 06:45: PT 33.7 H, INR 3.3 04/19/18 07:04: POC Glucose 154 H 04/19/18 11:55: POC Glucose 216 H Current Medications Acetaminophen (Tylenol) 650 mg PO Q6H PRN PRN PRN Reason: Mild Pain (1-3)/Temp > 100.7 F Amiod[facility]) [facility] Admin: 04/19/18 09:03 Dose: 200 mg Amlodipine Besylate (Norvasc) 10 mg PO DAILY [facility] Last Admin: 04/19/18 09:05 Dose: 10 mg Aspirin (Ecotrin) [facility] Last Admin: 04/19/18 09:04 Dose: 81 mg Atenolol (Tenormin (Beta Arie)) 50 mg PO DAILY [facility] Last Admin: 04/19/18 09:03 Dose: 50 mg Atorvastatin Calcium (Lipitor) 20 mg PO QHS [facility] Last Admin: 04/18/18 21:07 Dose: 20 mg Buspirone HCl (Buspar) 5 mg PO TID [facility] Last Admin: 04/19/18 07:05 Dose: 5 mg Dextrose (D50w Syringe) 0 gm IV X1 PRN; Protocol PRN Reason: Hypoglycemia Ferrous Sulfate (Ferrous Sulfate) 325 mg PO BIDCM@1200,1700 [facility] Last Admin: 04/19/18 11:47 Dose: 325 mg Furosemide (Lasix) 20 mg PO DAILY [facility] Last Admin: 04/19/18 09:03 Dose: 20 mg Glucagon () 1 mg IM .X1 PRN PRN Reason: Hypoglycemia Insulin Human Lispro (Humalog Kwikpen (Bkc)) 0 unit SQ Q6 [facility]; Protocol Last Admin: 04/19/18 11:56 Dose: 1 u Isosorbide Mononitrate (Imdur) 120 mg PO DAILY [facility] Last Admin: 04/19/18 09:03 Dose: 120 mg Labetalol HCl (Trandate) 10 mg IV Q4H PRN PRN PRN Reason: SBP > 160 Loratadine (Claritin) 10 mg PO DAILY [facility] Last Admin: 04/19/18 09:03 Dose: 10 mg Losartan Potassium (Cozaar) 100 mg PO QHS [facility] Last Admin: 04/18/18 21:07 Dose: 100 mg Magnesium Hydroxide (Milk Of Magnesia) 30 ml PO DAILY PRN PRN Reason: Constipation Magnesium Oxide (Mag-Ox 400) [facility] Last Admin: 04/19/18 09:03 Dose: 400 mg Meclizine HCl (Antivert) 25 mg PO TID PRN PRN PRN Reason: DIZZINESS Melatonin (Melatonin) 5 mg PO QHS PRN PRN Reason: SLEEP Last Admin: 04/19/18 00:23 Dose: 5 mg Morphine Sulfate () 2 - 4 mg IV Q4H PRN PRN PRN Reason: MOD-SEVERE PAIN (4-10/10) Morphine Sulfate () 2 - 4 mg IV Q4H PRN PRN PRN Reason: MOD-SEVERE PAIN (4-10/10) Nitroglycerin (Nitrostat) 0.4 mg SUBLINGUAL Q5M PRN PRN Reason: CHEST PAIN Nystatin (Mycostatin) 1 applic TOPICAL BID PRN PRN PRN Reason: redness in groin Pantoprazole Sodium (Protonix) 40 mg PO BID [facility] Last Admin: 04/19/18 09:03 Dose: 40 mg Potassium Chloride (K-Dur) 20 meq PO DAILYCM [facility] Last Admin: 04/19/18 09:03 Dose: 20 meq Sodium Chloride () 5 - 15 ml IV UD PRN PRN Reason: SALINE FLUSH Tizanidine HCl (Zanaflex) 4 mg PO QHS PRN PRN Reason: SPASMS Tolterodine Tartrate (Detrol La) 2 mg PO DAILY [facility] Last Admin: 04/19/18 09:03 Dose: 2 mg Medical Necessity - Tobacco Use Smoking Status: Former smoker Tobacco Use: Cigarettes Assessment/Plan All Active Problems Chest pain at rest (Acute) Chest pain (Acute) Anxiety about health (Acute) Subtherapeutic international normalized ratio (INR) (Acute) 1. chest pain * known CAD * stress test negative on 03/28 * cardiology on consult. * plan for LHC on 04.20 2. DM2 * fair control 3. Mechanical AVR * coumadin held in anticipation of LHC * INR still 3.3 today * received 5mg of Vitamin K today * will need heparin or LMWH to bridge back to goal INR Code Visit OBSV E&M: 01975 Subsequent observation care L2
[2018-04-19 16:44] LABS: International Normalized Ratio 3.1
--- NOTE | 2018-04-19 17:24 | PN.CARD_ITS ---
Subjectve: The patient describes no new acute symptoms and/or events. Objective: Vital Signs Temp Pulse Resp BP Pulse Ox 97.7 F L 63 16 157/50 H 96 04/19/18 15:00 04/19/18 15:31 04/19/18 15:00 04/19/18 15:00 04/19/18 15:00 Oxygen Flow Rate (L/min) 3 Oxygen Delivery Method Room Air Weight: 231 lb 14.821 oz Body Mass Index (BMI) 41.1 Intake and Output for Last 24 Hours 04/17/18 04/18/18 04/19/18 23:59 23:59 23:59 Intake Total 770 / 770 600 / 600 Balance 770 / 770 600 / 600 General: Awake, Alert, Oriented x 3, Cooperative, No Acute Distress, Obese HEENT: Atraumatic, Normocephalic Neck: Supple, Good ROM, No JVD Lungs: Clear to auscultation Cardiovascular: Regular Rhythm, Normal S1, Elk Prosthetic S2 Abdomen: Bowel Sounds Present, Soft, Non Tender, Obese Extremities: No Cyanosis, No Clubbing, Trace RLE Edema, Trace LLE Edema Neurological: No Focal Motor or Sensory Deficit Psych/Mental Status: Appropriate 04/19/18 06:45: PT 33.7 H, INR 3.3 04/19/18 16:05: PT 32.0 H, INR 3.1 Rhythm: Sinus rhythm Medical Necessity - Tobacco Use Smoking Status: Former smoker Tobacco Use: Cigarettes Assessment/Plan 1. CAD status post CABG-remote The patient has a history of CAD status post remote CABG. The patient states that this was remote at [facility] in [facility]. She has been having recurrent chest discomfort. She has undergone evaluation with cardiac enzymes which have been negative. Her ECG demonstrates no acute changes. She is also undergone evaluation earlier this month with both a transthoracic echocardiogram and an exercise tolerance test/imaging study-pharmacologic. The studies demonstrated her left ventricle to be preserved with respect to wall motion and systolic function and no definitive evidence of ongoing myocardial ischemia. The patient has been considered based on the previous cardiovascular consultation notes for cardiac catheterization. However this is not been accomplished thus far. At the present time the patient can continue to be monitored. The patient can be considered for further evaluation with diagnostic cardiac catheterization. However her anticoagulant will have to be placed on hold and her INR will have to be allowed to decrease. Once that occurs her anticoagulant therapy can be adjusted to IV heparin as a bridge with respect to her aortic valve prosthesis. She could then undergo diagnostic cardiac catheterization, and eventually be placed back on IV heparin and then subsequently her oral anticoagulant. 2. Status post aortic valve replacement The patient does have a mechanical aortic valve prosthesis. Her most recent noninvasive study is as noted above. It is unclear at this time, noting that the report states there is no significant change compared to previous [facility] echocardiogram, as to whether or not she is symptomatic with respect to her aortic valve based upon her gradients, etc. and what it can some point in time being need for a redo aortic valve replacement surgery. In the interim she should continue AHA antibiotic prophylaxis as deemed appropriate and anticoagulant therapy as deemed appropriate. 3. Paroxysmal atrial fibrillation At the present time she remains in sinus rhythm. She will continue a combination of rate control therapy, antiarrhythmic therapy, and anticoagulant therapy as deemed appropriate. 4. Bradycardia Apparently there is been concerns in the past that she has developed episodes of bradycardia especially post return to sinus rhythm. Thus her medications have been adjusted in the past. At the moment her rate and rhythm. Be stable. She will continue to be followed. 5. Hyperlipidemia She will continue medical management. 6. Hypertension Her blood pressure can be followed. Her medications can be adjusted as needed. 7. Diabetes The patient will need to continue on her care of internal medicine for her natalia lamont. 8. COPD The patient does have a history of COPD. This can contribute to her shortness of breath and dyspnea. He could also potentially contribute to concerns of her atrial dysrhythmia. She will need continue evaluation care per internal medicine and pulmonology as deemed appropriate. 9. Obesity The patient remains overweight. Again this could contribute to her shortness of breath and dyspnea as well. He has been counseled on dietary adjustment and exercise as best as possible and attempt to bring her weight under better control. Overall, at the present time, patient has had no new acute adverse events. She will continue to be followed. Her INR will be followed. She can receive vitamin K in order to bring her INR down to allow her to proceed with further invasive evaluation and care. She would then need bridging with IV heparin until she is able to resume anticoagulant therapy with warfarin/Coumadin. This note was generated using a voice recognition system and there may be incorrect words, spelling or punctuation that were not noted when reviewing the office note prior to saving.
[2018-04-19 17:41] LABS: Bedside Glucose 172 mg/dL (70-110)
[2018-04-19] MEDS: Clopidogrel Bisulfate 300 MG Tablet PO (21:11)
[2018-04-19] MEDS: Atorvastatin Calcium 20 MG Tablet PO (21:13)
[2018-04-19] MEDS: Losartan Potassium 100 MG Tablet PO (21:13)
[2018-04-19 22:54] LABS: Mucous, Urine 0 SEEN /hpf (<or=2+); Red Blood Cells-Urine 0 SEEN /hpf (0-5)
[2018-04-19 22:58] LABS: Color, Urine Straw (Yellow); Glucose, Dipstick Normal (Normal); Ketone-Dipstick Negative (Negative); Leukocyte Esterase-Dipstick 25 /ul (Negative); Nitrite-Dipstick Negative (Negative); Occult Blood-Urine Negative /ul (Negative); Protein-Dipstick Negative (Negative); Urine Bilirubin Dipstick Negative (Negative); Urine Clarity Clear (Clear); Urine Urobilinogen Normal (Normal)
[2018-04-19 23:05] LABS: Squamous Epithelial Cells - UA 0-5 SEEN /hpf (5-10)
[2018-04-19 23:06] LABS: White Blood Cells 0-5 SEEN /hpf (0-5)
[2018-04-19 23:07] LABS: Bacteria RARE /hpf (None Seen)
[2018-04-20] VITALS (27 sets, daily range): BP systolic 95–153; BP diastolic 22–82; PULSE 51–68; RESP 14–24; TEMP 36.6–37; O2SAT 90–98
[2018-04-20 00:06] LABS: Bedside Glucose 192 mg/dL (70-110)
[2018-04-20 05:46] LABS: Absolute Lymphocyte Count 1.73 X10^3/ul (0.83-4.51); Absolute Neutrophil Count 3.5 X10^3/uL (2.0-7.7); Basophil# 0.06 X10^3/uL; Eosinophil# 0.19 X10^3/uL; Eosinophils% 3.2 % (0-5); Hematocrit 35.4 % (37-47); Hemoglobin 11.3 g/dl (12.0-15.0); Lymphocyte # 1.73 X10^3/ul (4.0); Lymphocyte % 28.7 % (19-41); Mean Corp Hgb Conc 31.9 g/gl (32-36); Mean Corpuscular Hgb 26.8 pg (27.0-32.0); Mean Corpuscular Volume 84.1 fL (81-99); Mean Platelet Vol. 11.5 fl (6.2-12.0); Monocyte# 0.54 X10^3/uL; Neutrophil # 3.48 X10^3/uL (2.7-7.7); Neutrophil % 57.6 % (47-70); Platelet Count 160 K/mm3 (150-450); RBC Distribution Width CV 15.9 % (11.6-14.6); RBC Distribution Width SD 48.3 fl (35.1-43.9); Red Blood Count 4.21 M/mm3 (4.2-5.4)
[2018-04-20 05:50] LABS: POSITIVE COUNT NO; POSITIVE DIFFERENTIAL NO; POSITIVE MORPHOLOGY NO
--- NOTE | 2018-04-20 05:55 | EKG12_ITS ---
Test Reason : MORNING EKG Blood Pressure : / mmHG Vent. Rate : 062 BPM Atrial Rate : 062 BPM P-R Int : 172 ms QRS Dur : 118 ms QT Int : 442 ms P-R-T Axes : 024 074 019 degrees QTc Int : 448 ms Normal sinus rhythm Non-specific intra-ventricular conduction delay Borderline ECG Confirmed by JENNIFFER ONEAL, NIEVES ([id number]), image editor SOUMYA BARTH ([id number]) on 04/23/2018 1:32:04 PM Referred By: DANIA Confirmed By:NIEVES ABAD MD
[2018-04-20 06:02] LABS: International Normalized Ratio 1.8; Prothrombin Time (Protime)PT. 20.8 SECONDS (11.7-14.9)
[2018-04-20 06:03] LABS: Partial Thromboplast Time 42.7 Seconds (24.1-36.2)
[2018-04-20 06:05] LABS: Anion Gap 7 (5-15); BUN 17 mg/dL (7-18); BUN/Creat Ratio 23.8 RATIO (10-20); Calcium,Total 8.7 mg/dL (8.5-10.1); Chloride 107 mmol/L (98-107); Creatinine, Serum 0.71 mg/dL (0.55-1.02); EST Glomerular Filtration Rate 86 mL/min (>60); Est Glom Filt Rate - Afr Amer 104 mL/min (>60); Estimated Creatinine Clearance 43.92 ml/min; Glucose 160 mg/dL (74-106); Potassium 4.3 mmol/L (3.5-5.1); Sodium Level 140 mmol/L (136-145)
[2018-04-20] MEDS: busPIRone 5 MG Tablet PO ×2 (06:42→21:11)
[2018-04-20] MEDS: Aspirin E.C. 81 MG Tablet PO (06:42)
[2018-04-20] MEDS: amLODIPine 10 MG Tablet PO (06:42)
[2018-04-20] MEDS: Clopidogrel Bisulfate 75 MG Tablet PO (06:42)
[2018-04-20] MEDS: Atenolol 50 MG Tablet PO (06:44)
[2018-04-20 06:55] LABS: Bedside Glucose 156 mg/dL (70-110)
--- NOTE | 2018-04-20 08:44 | CASEMGMT ---
Insurance Review for In-Network facilities for [facility] insurance if transfer is recommended: [facility], Pending sale to [facility], [facility], [place], [facility], [facility], [facility], [facility], [facility], [facility], and [facility]. Adeel BSN RN CM
[2018-04-20] MEDS: Pantoprazole Sodium 40 MG Tablet PO ×2 (09:29→21:12)
[2018-04-20] MEDS: Magnesium Oxide 400 MG Tablet PO (09:29)
[2018-04-20] MEDS: Loratadine 10 MG Tablet PO (09:29)
[2018-04-20] MEDS: Tolterodine Tartrate 2 MG CAP.SA PO (09:29)
[2018-04-20] MEDS: Amiodarone 200 MG Tablet PO (09:33)
[2018-04-20] MEDS: 0.9% NaCl Peripheral Flush Adult/Peds IV (09:38)
[2018-04-20] MEDS: LORazepam 1 MG Tablet PO (10:59)
--- NOTE | 2018-04-20 11:17 | NURSING ---
1100- report called to Moni KAPADIA in pit laborer. family escorted to pit laborer waiting room by this RN
--- NOTE | 2018-04-20 12:47 | NURSING ---
report called to Vanessa KAPADIA in ICU
--- NOTE | 2018-04-20 13:50 | NURSING ---
In ICU 202 per bed from asset availability leader. laboratory machinist RN in attendance
--- NOTE | 2018-04-20 13:52 | CL.I_ITS ---
Patient Name: KYLIE CASE Study Date: 04/20/2018 Performing: Rich Shaw MD Ht: 62.99 inches 160 cm : 1950 Wt: 231.49 lbs 105 kg Age: 68 Gender: female BSA: 2.06 PROCEDURE(S) PERFORMED [id number], SINGLE CORONARY ARTERY CLINICAL PROFILE AND CO-MORBIDITIES Indications: Suspected CAD Heart Failure: None Stress/Imaging Stress/Image Study Performed: No Angina Classification Anginal Classification w/in 2 Weeks: CCS IV CAD Presentations: Unstable angina. CONCLUSIONS Unsuccessful PCI of the proximal RCA RECOMMENDATIONS Follow up with primary research group director continue ASA and plavix to be discharges at the discretion of attending physicain DESCRIPTION OF PROCEDURE The patient arrived to the procedure lab. The risks and benefits of the procedure as well as a full d escription of our services here and current unavailability of surgical backup were fully explained to the patient and/or their significant other prior to the catheterization. The Timeout was completed, verifying the correct patient and procedure. The patient's procedural site was prepped and draped in the usual fashion. Local anesthetic was given subcutaneously to left radial region with Lidocaine 2% Using a modified Seldinger technique,arterial access was obtained via the left radial artery, a 6Fr s debra was inserted. Left Coronary Artery selective angiography was performed in multiple views using a 5 Fr. 4.0 Hawthorne catheter. Right Coronary Artery selective angiography was then performed in multipl e views using a 5 Fr. 4.0 Hawthorne catheter. Saphenous Vein graft to the unknown artery (occluded graft) selective angiography was performed in single view using a 5 Fr. JR 4 catheter. Saphenous Vein graft to the unknown artery (occluded graft) selective angiography was performed in single view using a 5 Fr. JR 4 catheter. Left internal mammary artery graft to the LAD selective angiography was performed in multiple views using a 5 Fr. IM catheter.The images were reviewed and options discussed. A decision was then made to proceed with an Intervention, IVUS or other adjunct procedure. JR4 Guide catheter was inserted and engaged into the RCA. BMW Guide wire was advanced to the RCA. 2.5X15 NC EMERGE Balloon catheter was inserted. 1.50X15 EMERGE Balloon catheter was advanced across lesion in the right coronary, proximal. PTCA balloon inflated at 6 atms for 12 secs. PTCA balloon inf lated at 14 atms for 20 secs. 2.50X15 NC EMERGE Balloon catheter was inserted. 2.5X15 NC EMERGE Ballo on catheter was inserted. BMW Guide wire was inserted as a kris wire WHISPER Guide wire was inserted as a kris wire 2.5X15 NC EMERGE Balloon catheter was inserted. 2.00X8 EMERGE Balloon catheter was i nserted. 1.5X15 EMERGE Balloon catheter was advanced across lesion in the right coronary, proximal. P TCA balloon inflated at 12 atms for 30 secs. PTCA balloon inflated at 14 atms for 30 secs. 2.0X8 VONDA GE Balloon catheter was inserted. PTCA balloon inflated at 14 atms for 30 secs. 2.50X15 NC EMERGE Bal loon catheter was advanced across lesion in the right coronary, proximal. PTCA balloon inflated at 18 atms for 40 secs. 2.5x12 ELUNIR Drug Eluting stent was inserted. Drug Eluting stent wa s removed intact, failed to cross lesion The arterial sheath was pulled and a TR Band was applied f or hemostasis-16CC AIR INTERVENTION INFORMATION LESION SITE: RCA (Proximal) Lesion Complexity: Non-High/Non-C, chronic total occlusion: No, lesion at bifurcation: No, thrombus p resent: No, culprit lesion: Yes, In-stent restenosis: No, lesion length: 15 mm Pre Stenosis: 95 % Pre intervention TD flow: 3 PROCEDURE: Balloon Angioplasty, SUSHMA placement unsuccessful delivery severly calcified, eccentric proximal dominatant RCA with 100% closure of mid RCA after takeoff of la rge and long RV branch. lesion severley calcified and could not be adequately dilated despite very hi gh pressure with a non-compliant balloon at 18atm. attempted stenting of prox RCA was unsuccessful, s tent could not be delivered and therefore was removed. Post Stenosis: 80 % Post intervention TD flow: 2 Lesion Devices: Conde .014 BMW [place] Straight 190cm Medtronic 6 Fr JR4.0 100cm Guide Catheter Julito Sci NC EMERGE MR 2.50x15 BALLOON Julito Sci EMERGE MR 1.50x15 BALLOON Vascular Solutions 6 Citizen [place] GuideLiner Conde .014 BMW [place] Straight 190cm Conde .014 HT Whisper MS Straight 190cm Julito Sci EMERGE MR 2.00x08 BALLOON Cardinal Elunir SUSHMA RX 2.5x12 COMPLICATIONS No Complications PROCEDURE MEDICATIONS Versed 1 mg IV Fentanyl 50 mcg IV Fentanyl 50 mcg IV Versed 1 mg IV Versed 1 mg IV Fentanyl 25 mcg IV Oxygen: 2 L/min via nasal cannula Angiomax 15.8 ml's 04/20/2018 12:43:26 Angiomax 5mg / ml 36.8 ml/hr IV 04/20/2018 12:44:59 Angiomax COMPLETE ^FreeText^ @ 04/20/2018 13:32:59 SUMMARY OF HEMODYNAMIC DATA Time AIR REST ECG 11:13:51 AO 154/63 (92) SA 12:03:51 Signed By Rich Shaw MD On 04/20/2018 13:51:44 Rich Shaw MD
[2018-04-20] MEDS: 0.9% Normal Saline 1,000 ML 75 ML IV (14:30)
[2018-04-20 14:51] LABS: Bedside Glucose 156 mg/dL (70-110)
--- NOTE | 2018-04-20 15:07 | PCM.PN.HOSP ---
Patient Problems: Active and Suspected Problems Chest pain at rest (Acute) Chest pain (Acute) Subjective: underwent LHC today that showed an RCA in-stent stenosis. It was unable to be cannulated. No chest pain. No shortness of breath. Afraid of Lovenox because of the knots that it gave her (she did not give it to herself, her daughter did). Vitals/I&O's: Vital Signs Temp Pulse Resp BP Pulse Ox 37.0 C 59 L 22 H 112/82 H 91 04/20/18 14:00 04/20/18 14:45 04/20/18 14:45 04/20/18 14:45 04/20/18 14:45 Oxygen Flow Rate (L/min) 3 Oxygen Delivery Method Room Air Weight: 105.2 kg Body Mass Index (BMI) 41.1 Intake and Output for Last 24 Hours 04/18/18 04/19/18 04/20/18 23:59 23:59 23:59 Intake Total 770 / 770 1080 / 1080 200 / 200 Balance 770 / 770 1080 / 1080 200 / 200 General: Alert, No apparent distress HEENT: Atraumatic, Normocephalic Oral: Moist Mucosa, No Gingival or Mucosal Lesions/ Ulcerations Neck: No Nodes, Thyroid Normal Size and Texture Lungs: Clear to auscultation, Normal air movement, No rhonchi, No wheeze Cardiovascular: Regular rate, Regular Rhythm, Normal S1, Normal S2 Abdomen: Bowel Sounds Present, Soft, Non Tender, Non-Distended, Obese Extremities: No edema, No Calf Tenderness Psych/Mental Status: Appropriate, Anxious Laboratory Results 04/19/18 16:05: PT 32.0 H, INR 3.1 04/19/18 17:21: POC Glucose 172 H 04/19/18 21:30: Urine Color Straw, Urine Clarity Clear, Urine pH 6.0, Ur Specific Qu[place]ult 1.010, Urine Protein Negative, Urine Glucose (UA) Normal, Urine Ketones Negative, Urine Occult Blood Negative, Urine Nitrite Negative, Urine Bilirubin Negative, Urine Urobilinogen Normal, Ur Leukocyte Esterase 25 H, Urine RBC 0 SEEN, Urine WBC 0-5 SEEN, Ur Squamous Epith Cells 0-5 SEEN, Urine Bacteria RARE, Urine Mucus 0 SEEN 04/19/18 23:55: POC Glucose 192 H 04/20/18 05:18: WBC 6.0, RBC 4.21, Hgb 11.3 L, Hct 35.4 L, MCV 84.1, MCH 26.8 L, MCHC 31.9 L, RDW 15.9 H, RDW Differential 48.3 H, Plt Count 160, MPV 11.5, Immature Gran % (Auto) 0.500, Neut % (Auto) 57.6, Lymph % (Auto) 28.7, Sterling % (Auto) 9.0, Eos % (Auto) 3.2, Baso % (Auto) 1.0, Absolute Neuts (auto) 3.5, Absolute Lymphs (auto) 1.73, Total Counted Not Reportable 04/20/18 05:18: PT 20.8 H, INR 1.8, APTT 42.7 H 04/20/18 05:18: Sodium 140, Potassium 4.3, Chloride 107, Carbon Dioxide 26.0, Anion Gap 7, BUN 17, Creatinine 0.71, Estim Creat Clear Calc 43.92, Est GFR (MDRD) Af Amer 104, Est GFR (MDRD) Non-Af 86, BUN/Creatinine Ratio 23.8 H, Glucose 160 H, Calcium 8.7 04/20/18 06:48: POC Glucose 156 H 04/20/18 14:46: POC Glucose 156 H Current Medications Acetaminophen (Tylenol) 650 mg PO Q6H PRN PRN PRN Reason: Mild Pain (1-3)/Temp > 100.7 F [facility] Last Admin: 04/20/18 09:33 Dose: 200 mg Amlodipine Besylate (Norvasc) 10 mg PO DAILY [facility] Last Admin: 04/20/18 06:42 Dose: 10 mg Aspirin (Ecotrin) [facility] Last Admin: 04/20/18 06:42 Dose: 81 mg Atenolol (Tenormin (Beta Arie)) 50 mg PO DAILY [facility] Last Admin: 04/20/18 06:44 Dose: 50 mg Atorvastatin Calcium (Lipitor) 20 mg PO QHS [facility] Last Admin: 04/19/18 21:13 Dose: 20 mg Buspirone HCl (Buspar) 5 mg PO TID [facility] Last Admin: 04/20/18 06:42 Dose: 5 mg Clopidogrel Bisulfate (Plavix) 75 mg PO DAILY [facility] Last Admin: 04/20/18 06:42 Dose: 75 mg Dextrose (D50w Syringe) 0 gm IV X1 PRN; Protocol PRN Reason: Hypoglycemia Ferrous Sulfate (Ferrous Sulfate) 325 mg PO BIDCM@1200,1700 [facility] Last Admin: 04/19/18 17:24 Dose: 325 mg Furosemide (Lasix) 20 mg PO DAILY [facility] Last Admin: 04/19/18 09:03 Dose: 20 mg Glucagon () 1 mg IM .X1 PRN PRN Reason: Hypoglycemia Sodium Chloride () 1,000 mls @ 0 mls/hr IV .Q0M HENRIK Sodium Chloride () 1,000 mls @ 75 mls/hr IV .[id number] [facility] Heparin Sodium/Dextrose () 25,000 units in 250 mls @ 0 mls/hr IV .Q0M [facility]; Protocol Insulin Human Lispro (Humalog Kwikpen (Bkc)) 0 unit SQ Q6 [facility]; Protocol Last Admin: 04/20/18 06:42 Dose: Not Given Isosorbide Mononitrate (Imdur) 120 mg PO DAILY [facility] Last Admin: 04/20/18 06:42 Dose: 120 mg Labetalol HCl (Trandate) 10 mg IV Q4H PRN PRN PRN Reason: SBP > 160 Loratadine (Claritin) 10 mg PO DAILY [facility] Last Admin: 04/20/18 09:29 Dose: 10 mg Losartan Potassium (Cozaar) 100 mg PO QHS [facility] Last Admin: 04/19/18 21:13 Dose: 100 mg Magnesium Hydroxide (Milk Of Magnesia) 30 ml PO DAILY PRN PRN Reason: Constipation Magnesium Oxide (Mag-Ox 400) [facility] Last Admin: 04/20/18 09:29 Dose: 400 mg Meclizine HCl (Antivert) 25 mg PO TID PRN PRN PRN Reason: DIZZINESS Melatonin (Melatonin) 5 mg PO QHS PRN PRN Reason: SLEEP Last Admin: 04/19/18 21:12 Dose: 5 mg Morphine Sulfate () 2 - 4 mg IV Q4H PRN PRN PRN Reason: MOD-SEVERE PAIN (4-10/10) Morphine Sulfate () 2 - 4 mg IV Q4H PRN PRN PRN Reason: MOD-SEVERE PAIN (4-10/10) Nitroglycerin (Nitrostat) 0.4 mg SUBLINGUAL Q5M PRN PRN Reason: CHEST PAIN Nystatin (Mycostatin) 1 applic TOPICAL BID PRN PRN PRN Reason: redness in groin Pantoprazole Sodium (Protonix) 40 mg PO BID [facility] Last Admin: 04/20/18 09:29 Dose: 40 mg Potassium Chloride (K-Dur) 20 meq [facility] Last Admin: 04/20/18 09:29 Dose: 20 meq Ranolazine (Ranexa) 500 mg PO BID [facility] Sodium Chloride () 5 - 15 ml IV UD PRN PRN Reason: SALINE FLUSH Last Admin: 04/20/18 09:38 Dose: 10 ml Tizanidine HCl (Zanaflex) 4 mg PO QHS PRN PRN Reason: SPASMS Tolterodine Tartrate (Detrol La) 2 mg PO DAILY [facility] Last Admin: 04/20/18 09:29 Dose: 2 mg Warfarin Sodium (Coumadin (Pbkc)) 6 mg PO DAILY@1700 [facility] Medical Necessity - Tobacco Use Smoking Status: Former smoker Tobacco Use: Cigarettes Assessment/Plan All Active Problems Chest pain at rest (Acute) Chest pain (Acute) Anxiety about health (Acute) Subtherapeutic international normalized ratio (INR) (Acute) 1. chest pain known CAD stress test negative on 03/28 [facility] showed in-stent stenosis at the RCA. PCI attempted, but unsuccessful medical mgmt per cardiology. 2. DM2 fair control 3. Mechanical AVR resume coumadin INR 1.8 today will give 7.5 mg of coumadin today bridge with heparin gtt today, if no complications, then will transition to LMWH (weight-based). Patient is apprehensive about LMWH, because of the knots it gave her. I reassured her that it is only temporary until her INR is therapuetic (between 2-3) If INR is therapuetic 04/21, then can discharge with just coumadin. Code Visit Inpatient E&M: 36187 Subs Hosp L2
--- NOTE | 2018-04-20 15:19 | PN_ITS ---
Patient Problems: Active and Suspected Problems Chest pain at rest (Acute) Chest pain (Acute) Subjective: underwent LHC today that showed an RCA in-stent stenosis. It was unable to be cannulated. No chest pain. No shortness of breath. Afraid of Lovenox because of the knots that it gave her (she did not give it to herself, her daughter did). Vitals/I&O's: Vital Signs Temp Pulse Resp BP Pulse Ox 37.0 C 59 L 22 H 112/82 H 91 04/20/18 14:00 04/20/18 14:45 04/20/18 14:45 04/20/18 14:45 04/20/18 14:45 Oxygen Flow Rate (L/min) 3 Oxygen Delivery Method Room Air Weight: 105.2 kg Body Mass Index (BMI) 41.1 Intake and Output for Last 24 Hours 04/18/18 04/19/18 04/20/18 23:59 23:59 23:59 Intake Total 770 / 770 1080 / 1080 200 / 200 Balance 770 / 770 1080 / 1080 200 / 200 General: Alert, No apparent distress HEENT: Atraumatic, Normocephalic Oral: Moist Mucosa, No Gingival or Mucosal Lesions/ Ulcerations Neck: No Nodes, Thyroid Normal Size and Texture Lungs: Clear to auscultation, Normal air movement, No rhonchi, No wheeze Cardiovascular: Regular rate, Regular Rhythm, Normal S1, Normal S2 Abdomen: Bowel Sounds Present, Soft, Non Tender, Non-Distended, Obese Extremities: No edema, No Calf Tenderness Psych/Mental Status: Appropriate, Anxious Laboratory Results 04/19/18 16:05: PT 32.0 H, INR 3.1 04/19/18 17:21: POC Glucose 172 H 04/19/18 21:30: Urine Color Straw, Urine Clarity Clear, Urine pH 6.0, Ur Specific [place] 1.010, Urine Protein Negative, Urine Glucose (UA) Normal, Urine Ketones Negative, Urine Occult Blood Negative, Urine Nitrite Negative, Urine Bilirubin Negative, Urine Urobilinogen Normal, Ur Leukocyte Esterase 25 H, Urine RBC 0 SEEN, Urine WBC 0-5 SEEN, Ur Squamous Epith Cells 0-5 SEEN, Urine Bacteria RARE, Urine Mucus 0 SEEN 04/19/18 23:55: POC Glucose 192 H 04/20/18 05:18: WBC 6.0, RBC 4.21, Hgb 11.3 L, Hct 35.4 L, MCV 84.1, MCH 26.8 L, MCHC 31.9 L, RDW 15.9 H, RDW Differential 48.3 H, Plt Count 160, MPV 11.5, Immature Gran % (Auto) 0.500, Neut % (Auto) 57.6, Lymph % (Auto) 28.7, [place] % (Auto) 9.0, Eos % (Auto) 3.2, Baso % (Auto) 1.0, Absolute Neuts (auto) 3.5, Absolute Lymphs (auto) 1.73, Total Counted Not Reportable 04/20/18 05:18: PT 20.8 H, INR 1.8, APTT 42.7 H 04/20/18 05:18: Sodium 140, Potassium 4.3, Chloride 107, Carbon Dioxide 26.0, Anion Gap 7, BUN 17, Creatinine 0.71, Estim Creat Clear Calc 43.92, Est GFR (MDRD) Af Amer 104, Est GFR (MDRD) Non-Af 86, BUN/Creatinine Ratio 23.8 H, Glucose 160 H, Calcium 8.7 04/20/18 06:48: POC Glucose 156 H 04/20/18 14:46: POC Glucose 156 H Current Medications Acetaminophen (Tylenol) 650 mg PO Q6H PRN PRN PRN Reason: Mild Pain (1-3)/Temp > 100.7 F [facility] Admin: 04/20/18 09:33 Dose: 200 mg Amlodipine Besylate (Norvasc) 10 mg PO DAILY [facility] Last Admin: 04/20/18 06:42 Dose: 10 mg Aspirin ([facility]cotrin) [facility] Last Admin: 04/20/18 06:42 Dose: 81 mg Atenolol (Tenormin (Beta Arie)) 50 mg PO DAILY [facility] Last Admin: 04/20/18 06:44 Dose: 50 mg Atorvastatin Calcium (Lipitor) 20 mg PO QHS [facility] Last Admin: 04/19/18 21:13 Dose: 20 mg Buspirone HCl (Buspar) 5 mg PO TID [facility] Last Admin: 04/20/18 06:42 Dose: 5 mg Clopidogrel Bisulfate (Plavix) 75 mg PO DAILY [facility] Last Admin: 04/20/18 06:42 Dose: 75 mg Dextrose (D50w Syringe) 0 gm IV X1 PRN; Protocol PRN Reason: Hypoglycemia Ferrous Sulfate (Ferrous Sulfate) 325 mg PO BIDCM@1200,1700 [facility] Last Admin: 04/19/18 17:24 Dose: 325 mg Furosemide (Lasix) 20 mg PO DAILY [facility] Last Admin: 04/19/18 09:03 Dose: 20 mg Glucagon () 1 mg IM .X1 PRN PRN Reason: Hypoglycemia Sodium Chloride () 1,000 mls @ 0 mls/hr IV .Q0M HENRIK Sodium Chloride () 1,000 mls @ 75 mls/hr IV .[id number] [facility] Heparin Sodium/Dextrose () 25,000 units in 250 mls @ 0 mls/hr IV .Q0M [facility]; Protocol Insulin Human Lispro (Humalog Kwikpen (Bkc)) 0 unit SQ Q6 [facility]; Protocol Last Admin: 04/20/18 06:42 Dose: Not Given Isosorbide Mononitrate (Imdur) 120 mg PO DAILY [facility] Last Admin: 04/20/18 06:42 Dose: 120 mg Labetalol HCl (Trandate) 10 mg IV Q4H PRN PRN PRN Reason: SBP > 160 Loratadine (Claritin) 10 mg PO DAILY [facility] Last Admin: 04/20/18 09:29 Dose: 10 mg Losartan Potassium (Cozaar) 100 mg PO QHS [facility] Last Admin: 04/19/18 21:13 Dose: 100 mg Magnesium Hydroxide (Milk Of Magnesia) 30 ml PO DAILY PRN PRN Reason: Constipation Magnesium Oxide (Mag-Ox 400) [facility] Last Admin: 04/20/18 09:29 Dose: 400 mg Meclizine HCl (Antivert) 25 mg PO TID PRN PRN PRN Reason: DIZZINESS Melatonin (Melatonin) 5 mg PO QHS PRN PRN Reason: SLEEP Last Admin: 04/19/18 21:12 Dose: 5 mg Morphine Sulfate () 2 - 4 mg IV Q4H PRN PRN PRN Reason: MOD-SEVERE PAIN (4-10/10) Morphine Sulfate () 2 - 4 mg IV Q4H PRN PRN PRN Reason: MOD-SEVERE PAIN (4-10/10) Nitroglycerin (Nitrostat) 0.4 mg SUBLINGUAL Q5M PRN PRN Reason: CHEST PAIN Nystatin (Mycostatin) 1 applic TOPICAL BID PRN PRN PRN Reason: redness in groin Pantoprazole Sodium (Protonix) 40 mg PO BID [facility] Last Admin: 04/20/18 09:29 Dose: 40 mg Potassium Chloride (K-Dur) 20 meq [facility] Last Admin: 04/20/18 09:29 Dose: 20 meq Ranolazine (Ranexa) 500 mg PO BID [facility] Sodium Chloride () 5 - 15 ml IV UD PRN PRN Reason: SALINE FLUSH Last Admin: 04/20/18 09:38 Dose: 10 ml Tizanidine HCl (Zanaflex) 4 mg PO QHS PRN PRN Reason: SPASMS Tolterodine Tartrate (Detrol La) 2 mg PO DAILY [facility] Last Admin: 04/20/18 09:29 Dose: 2 mg Warfarin Sodium (Coumadin (Pbkc)) 6 mg PO DAILY@1700 [facility] Medical Necessity - Tobacco Use Smoking Status: Former smoker Tobacco Use: Cigarettes Assessment/Plan All Active Problems Chest pain at rest (Acute) Chest pain (Acute) Anxiety about health (Acute) Subtherapeutic international normalized ratio (INR) (Acute) 1. chest pain * known CAD * stress test negative on 03/28 * C showed in-stent stenosis at the RCA. PCI attempted, but unsuccessful * medical mgmt per cardiology. 2. DM2 * fair control 3. Mechanical AVR * resume coumadin * INR 1.8 today * will give 7.5 mg of coumadin today * bridge with heparin gtt today, if no complications, then will transition to LMWH (weight-based). * Patient is apprehensive about LMWH, because of the knots it gave her. I reassured her that it is only temporary until her INR is therapuetic (between 2-3) * If INR is therapuetic 04/21, then can discharge with just coumadin. Code Visit Inpatient E&M: 03835 Subs Hosp L2
--- NOTE | 2018-04-20 17:03 | CL.D_ITS ---
Patient Name: KLYIE CASE Study Date: 04/20/2018 Performing: Puneet Lei MD Ht: 62.99 inches 160 cm : 1950 Wt: 231.49 lbs 105 kg Age: 68 Gender: female BSA: 2.06 PROCEDURE(S) PERFORMED [id number]/CABG [id number], SINGLE CORONARY ARTERY CLINICAL PROFILE AND INDICATIONS Indications: Suspected CAD Heart Failure: None Stress/Imaging Stress/Image Study Performed: No Angina Classification Anginal Classification w/in 2 Weeks: CCS IV CAD Presentations: Unstable angina. CONCLUSIONS [place] Multivessel CAD SHELBY to LAD: patent SVG to LCX: occluded SVG to RCA: occluded AV: mechanical bileaflet: opening / closing appropriately RECOMMENDATIONS Risk factor modification Medical therapy Referred for immediate PCI (Proximal RCA: as moderate to large sized, long acute marginal branch is u nprotected) DESCRIPTION OF PROCEDURE The patient arrived to the procedure lab. The risks and benefits of the procedure as well as a full d escription of our services here and current unavailability of surgical backup were fully explained to the patient and/or their significant other prior to the catheterization. The Timeout was completed, verifying the correct patient and procedure. The patient's procedural site was prepped and draped in the usual fashion. Local anesthetic was given subcutaneously to left radial region with Lidocaine 2%. Using a modified Seldinger technique, arterial access was obtained via the left radial artery, a 6Fr sheath was inserted. Left Coronary Artery selective angiography was performed in multiple views usi ng a 5 Fr. 4.0 [place] catheter. Right Coronary Artery selective angiography was then performed in mult iple views using a 5 Fr. 4.0 [place] catheter. Saphenous Vein graft to the unknown artery (occluded gra ft) selective angiography was performed in single view using a 5 Fr. JR 4 catheter. Saphenous Vein graft to the unknown artery (occluded graft) selective angiography was performed in si ngle view using a 5 Fr. JR 4 catheter. Left internal mammary artery graft to the LAD selective angiog jarret was performed in multiple views using a 5 Fr. IM catheter.The arterial sheath was pulled and a TR Band was applied for hemostasis-16CC AIR CORONARY ANGIOGRAPHY DOMINANCE: Right Dominant LEFT HEART ASSESSMENT LEFT MAIN: Mild calcification, Distal: Eccentric: Hazy: 50 % Stenosis LEFT ANTERIOR DECENDING ARTERY: PROX LAD: Mild calcification, Eccentric: 85 % Stenosis MID LAD: filling from antegrade flow but predominantly from SHELBY graft flow DIAGONAL 1: Proximal - is occluded and fills late, partially, and faintly from left to left collatera l flow CIRCUMFLEX ARTERY: PROX CIRC: Mild calcification, Eccentric: Hazy: 25-50 % Stenosis OM 1: Proximal - Diffuse: Irregular: 25-50 % Stenosis RIGHT CORONARY ARTERY: PROX RCA: as moderate to large sized, long acute marginal branch is unprotected), Mild calcification, Eccentric: 95 % Stenosis MID RCA: Moderate calcification, Eccentic: 50 % Stenosis DISTAL RCA: Occluded: Fills from left to right collateral flow ACUTE MARGINAL: Moderate to large sized; long vessel GRAFTS: SHELBY graft to the Mid LAD is patent Saphenous Vein graft to the CIRC is totally occluded Saphenous Vein graft to the RCA is totally occluded COLLATERAL FLOW: Collateral flow from Left to Left Collateral flow from Left to Right VALVE FINDINGS: Mechanical AV: Bileaflet: appears to be opening / closing appropriately COMPLICATIONS No Complications PROCEDURE MEDICATIONS Versed 1 mg IV Fentanyl 50 mcg IV Fentanyl 50 mcg IV Versed 1 mg IV Versed 1 mg IV Fentanyl 25 mcg IV Oxygen: 2 L/min via nasal cannula Angiomax 15.8 ml's 04/20/2018 12:43:26 Angiomax 5mg / ml 36.8 ml/hr IV 04/20/2018 12:44:59 Angiomax COMPLETE ^FreeText^ @ 04/20/2018 13:32:59 SUMMARY OF HEMODYNAMIC DATA Time AIR REST ECG 11:13:51 AO 154/63 (92) SA 12:03:51 Signed By Puneet Lei MD On 04/20/2018 17:02:55 Puneet Lei MD
[2018-04-20 17:11] LABS: Bedside Glucose 140 mg/dL (70-110)
--- NOTE | 2018-04-20 17:43 | PN.CARD_ITS ---
Subjectve: She is now status post diagnostic cardiac catheterization, PTCA, and an attempted-unsuccessful stent procedure. The patient underwent diagnostic card iac catheterization earlier this day via the left radial artery approach without obvious adverse post procedure related events. She appears to be resting comfortably in the ICU at this time. Objective: Vital Signs Temp Pulse Resp BP Pulse Ox 98.2 F 56 L 24 H 122/30 H 92 04/20/18 16:00 04/20/18 17:00 04/20/18 17:00 04/20/18 17:00 04/20/18 17:00 Oxygen Flow Rate (L/min) 3 Oxygen Delivery Method Room Air Weight: 231 lb 14.821 oz Body Mass Index (BMI) 41.1 Intake and Output for Last 24 Hours 04/18/18 04/19/18 04/20/18 23:59 23:59 23:59 Intake Total 770 / 770 1080 / 1080 200 / 200 Balance 770 / 770 1080 / 1080 200 / 200 General: Awake, Alert, Oriented x 3, Cooperative, No Acute Distress, Obese HEENT: Atraumatic, Normocephalic, PERRL Neck: Supple, Good ROM, No JVD Lungs: Clear to auscultation Cardiovascular: Regular Rhythm, Normal S1, [place] Prosthetic S2 Vascular: Normal Radial Pulses Abdomen: Bowel Sounds Present, Soft, Non Tender Extremities: Trace RLE Edema, Trace LLE Edema Neurological: No Focal Motor or Sensory Deficit Psych/Mental Status: Appropriate 04/19/18 21:30: Urine Color Straw, Urine Clarity Clear, Urine pH 6.0, Ur Specific [place] 1.010, Urine Protein Negative, Urine Glucose (UA) Normal, Urine Ketones Negative, Urine Occult Blood Negative, Urine Nitrite Negative, Urine Bilirubin Negative, Urine Urobilinogen Normal, Ur Leukocyte Esterase 25 H, Urine RBC 0 SEEN, Urine WBC 0-5 SEEN 04/20/18 05:18: WBC 6.0, RBC 4.21, Hgb 11.3 L, Hct 35.4 L, MCV 84.1, MCH 26.8 L, MCHC 31.9 L, RDW 15.9 H, RDW Differential 48.3 H, Plt Count 160, MPV 11.5, Immature Gran % (Auto) 0.500, Neut % (Auto) 57.6, Lymph % (Auto) 28.7, [place] % (Auto) 9.0, Eos % (Auto) 3.2, Baso % (Auto) 1.0, Absolute Neuts (auto) 3.5, Total Counted Not Reportable 04/20/18 05:18: PT 20.8 H, INR 1.8, APTT 42.7 H 04/20/18 05:18: Sodium 140, Potassium 4.3, Chloride 107, Carbon Dioxide 26.0, Anion Gap 7, BUN 17, Creatinine 0.71, Est GFR (MDRD) Af Amer 104, Est GFR (MDRD) Non-Af 86, BUN/Creatinine Ratio 23.8 H, Glucose 160 H, Calcium 8.7 Rhythm: Sinus rhythm Cardiac catheterization: Please see official report PCI: Please see official report Medical Necessity - Tobacco Use Smoking Status: Former smoker Tobacco Use: Cigarettes Assessment/Plan 1. CAD status post CABG-remote The patient has a history of CAD status post remote CABG. The patient states that this was remote at [facility] in [facility]. She has been having recurrent chest discomfort. She has undergone evaluation with cardiac enzymes which have been negative. Her ECG demonstrates no acute changes. She is also undergone evaluation earlier this month with both a transthoracic echocardiogram and an exercise tolerance test/imaging study-pharmacologic. The studies demonstrated her left ventricle to be preserved with respect to wall motion and systolic function and no definitive evidence of ongoing myocardial ischemia. The patient is now status post diagnostic cardiac catheterization. She was found to have multivessel coronary artery disease. Her SHELBY graft to the LAD was patent. Her SVG graft to the LCx was occluded. Her SVG graft to the RCA was occluded. Her case was reviewed with Dr. Shaw of [facility]. The consensus was to proceed with an attempt at RCA proximal PTCA/stent to assist a moderate to large sized long unprotected acute marginal branch. This was attempted. A PTCA was performed. However successful stent placement was unable to be performed secondary to concerns of underlying calcification. Thus, the present time, the patient will continue medical management. This will include antiplatelet therapy with aspirin and medical/Plavix in addition to her anticoagulant therapy. It will also include continued antianginal therapy with her nitrates, beta-blockers, etc. Consideration will be given to an attempted additional antianginal therapy with Ranexa. 2. Status post aortic valve replacement The patient is mechanical prosthetic valve was evaluated under fluoroscopy this day. It appears to be a bileaflet valve. The leaflets appear to be opening and closing appropriately. The patient has been through anticoagulation bridging in the past. She states she has always been treated with IV heparin until her oral anticoagulant therapy is once again therapeutic. At the present time she will continue in the hospital post her cardiac catheterization/PTCA procedure-no stent with IV heparin pending her oral anticoagulant therapy becoming therapeutic with respect to her INR levels. In the interim she should continue AHA antibiotic prophylaxis. 3. Paroxysmal atrial fibrillation At the present time she remains in sinus rhythm. She will continue a combination of rate control therapy, antiarrhythmic therapy, and anticoagulant therapy as deemed appropriate. 4. Bradycardia Apparently there is been concerns in the past that she has developed episodes of bradycardia especially post return to sinus rhythm. Thus her medications have been adjusted in the past. At the moment her rate and rhythm. Be stable. She will continue to be followed. 5. Hyperlipidemia She will continue medical management. 6. Hypertension Her blood pressure can be followed. Her medications can be adjusted as needed. 7. Diabetes The patient will need to continue on her care of internal medicine for her diabetes. 8. COPD The patient does have a history of COPD. This can contribute to her shortness of breath and dyspnea. He could also potentially contribute to concerns of her atrial dysrhythmia. She will need continue evaluation care per internal medicine and pulmonology as deemed appropriate. 9. Obesity The patient remains overweight. Again this could contribute to her shortness of breath and dyspnea as well. He has been counseled on dietary adjustment and exercise as best as possible and attempt to bring her weight under better control. This note was generated using a voice recognition system and there may be incorrect words, spelling or punctuation that were not noted when reviewing the office note prior to saving.
[2018-04-20] MEDS: HEPARIN/D5w 25,000 UNITS 25,000 UNITS/250 ML IV.SOLN. 15 UNITS IV (18:57)
[2018-04-20] MEDS: Ferrous Sulfate 325 MG Tablet PO (21:11)
[2018-04-20] MEDS: Ranolazine 500 MG Tablet PO (21:12)
[2018-04-20] MEDS: Losartan Potassium 100 MG Tablet PO (21:12)
[2018-04-20] MEDS: Atorvastatin Calcium 20 MG Tablet PO (21:13)
[2018-04-20] MEDS: Insulin Lispro 100 UNIT/ML INSULN.PEN SQ (21:13)
[2018-04-20 21:20] LABS: Bedside Glucose 179 mg/dL (70-110)
[2018-04-21] VITALS (19 sets, daily range): BP systolic 130–175; BP diastolic 31–68; PULSE 51–75; RESP 16–30; TEMP 36.4–36.8; O2SAT 92–98
[2018-04-21 01:15] LABS: Partial Thromboplast Time 78.8 Seconds (24.1-36.2)
[2018-04-21] MEDS: busPIRone 5 MG Tablet PO ×3 (04:42→21:40)
[2018-04-21] MEDS: 0.9% NaCl Peripheral Flush Adult/Peds IV (04:43)
[2018-04-21 05:00] LABS: Absolute Lymphocyte Count 1.86 X10^3/ul (0.83-4.51); Absolute Neutrophil Count 3.2 X10^3/uL (2.0-7.7); Basophil# 0.06 X10^3/uL; Basophil% 1.1 % (0-1); Eosinophil# 0.19 X10^3/uL; Eosinophils% 3.3 % (0-5); Hematocrit 33.7 % (37-47); Hemoglobin 10.9 g/dl (12.0-15.0); Lymphocyte # 1.86 X10^3/ul (4.0); Lymphocyte % 32.6 % (19-41); Mean Corp Hgb Conc 32.3 g/gl (32-36); Mean Corpuscular Volume 83.4 fL (81-99); Mean Platelet Vol. 10.5 fl (6.2-12.0); Monocyte# 0.35 X10^3/uL; Monocyte% 6.1 % (0-10); Neutrophil # 3.23 X10^3/uL (2.7-7.7); Neutrophil % 56.5 % (47-70); Platelet Count 156 K/mm3 (150-450); RBC Distribution Width CV 16.1 % (11.6-14.6); RBC Distribution Width SD 49.2 fl (35.1-43.9); Red Blood Count 4.04 M/mm3 (4.2-5.4); White Blood Count 5.7 K/mm3 (4.4-11.0)
[2018-04-21 05:03] LABS: POSITIVE COUNT NO; POSITIVE DIFFERENTIAL NO; POSITIVE MORPHOLOGY NO
[2018-04-21 05:05] LABS: International Normalized Ratio 1.3; Prothrombin Time (Protime)PT. 16.3 SECONDS (11.7-14.9)
[2018-04-21 05:11] LABS: Anion Gap 8 (5-15); BUN 14 mg/dL (7-18); BUN/Creat Ratio 19.8 RATIO (10-20); Calcium,Total 8.3 mg/dL (8.5-10.1); Chloride 106 mmol/L (98-107); Creatinine, Serum 0.71 mg/dL (0.55-1.02); EST Glomerular Filtration Rate 87 mL/min (>60); Est Glom Filt Rate - Afr Amer 106 mL/min (>60); Estimated Creatinine Clearance 43.92 ml/min; Glucose 156 mg/dL (74-106); Sodium Level 141 mmol/L (136-145)
[2018-04-21 06:59] LABS: Partial Thromboplast Time 76.1 Seconds (24.1-36.2)
[2018-04-21 08:26] LABS: Bedside Glucose 157 mg/dL (70-110)
[2018-04-21] MEDS: Insulin Lispro 100 UNIT/ML INSULN.PEN SQ ×4 (08:28→21:42)
[2018-04-21] MEDS: Furosemide 20 MG Tablet PO (09:11)
[2018-04-21] MEDS: Pantoprazole Sodium 40 MG Tablet PO ×2 (09:11→21:39)
[2018-04-21] MEDS: Tolterodine Tartrate 2 MG CAP.SA PO (09:12)
[2018-04-21] MEDS: Amiodarone 200 MG Tablet PO (09:12)
[2018-04-21] MEDS: Ranolazine 500 MG Tablet PO ×2 (09:13→21:39)
[2018-04-21] MEDS: Magnesium Oxide 400 MG Tablet PO (09:13)
[2018-04-21] MEDS: Aspirin E.C. 81 MG Tablet PO (09:14)
[2018-04-21] MEDS: Clopidogrel Bisulfate 75 MG Tablet PO (09:14)
[2018-04-21] MEDS: Loratadine 10 MG Tablet PO (09:14)
[2018-04-21] MEDS: amLODIPine 10 MG Tablet PO (09:14)
--- NOTE | 2018-04-21 10:49 | CASEMGMT ---
STEFFI PARNELL assessment: Face to Face with patient for initial transition planning/care coordination assessment. STEFFI PARNELL introduced self and role at [facility], pt voices understanding and consents to assessment at this time. Pt is sitting up in chair in no distress at this time. Pt is A/O x4 at this time and answers all questions appropriately at this time. Care providers, pharmacy, and demographics verified at this time. PCP: Vera Specialists: ludin Cramer Pharmacy: [facility] Insurance: [employer] Prescription Benefit: [employer] Living Will/HPOA: Pt has LW/HPOA and they are on file at [facility] at this time. Pt states her grandson, Donal, is HPOA. LNOK: Luis Pablo, son; Bear Almanzar, daughter Living Arrangements: Pt states lives with great granddaughter in 1 story home and states no concerns at home at this time. Pt states her daughter stays with her everyday. Pt states no concerns with completing ADL's. Transportation: Pt states drives self and states no transportation concerns at this time. DME/HHC: Pt states has a shower chair and states no need for any further DME at this time. Pt states has had [facility] in the past but has never been to a SNF. Pt states no concerns with going home at time of discharge. Pt had referral to [facility] made in a recent previous visit. Pt states also has CM thru [facility]. Pt states is retired. Pt states does not smoke or drink ETOH. Pt states no further concerns/needs at this time. CM to follow for any further discharge planning/needs. Advised pt to ask for CM if any further questions/concerns/needs arise, voices understanding. Plan: [place] STEFFI PARNELL
--- NOTE | 2018-04-21 11:12 | PCM.PN.CARD ---
Subjectve: The patient is awake and alert. She has no new acute complaints. Objective: Vital Signs Temp Pulse Resp BP Pulse Ox 98.3 F 58 L 19 H 152/36 H 93 04/21/18 09:00 04/21/18 10:00 04/21/18 10:00 04/21/18 10:00 04/21/18 10:00 Oxygen Flow Rate (L/min) 2 Oxygen Delivery Method Room Air Weight: 229 lb 15.074 oz Body Mass Index (BMI) 41.1 Intake and Output for Last 24 Hours 04/19/18 04/20/18 04/21/18 23:59 23:59 23:59 Intake Total 1080 / 1080 696.5 / 696.5 718.8 / 718.8 Output Total 800 / 800 1050 / 1050 Balance 1080 / 1080 -103.5 / -103.5 -331.2 / -331.2 General: Awake, Alert, Oriented x 3, Cooperative, No Acute Distress HEENT: Atraumatic, Normocephalic, PERRL, EOMI, Sclera Non Icteric Oral: Moist Mucosa Neck: Supple, Good ROM, No JVD Lungs: Clear to auscultation Cardiovascular: Regular Rhythm, Normal S1, [place] Prosthetic S2 Vascular: Normal Radial Pulses Abdomen: Bowel Sounds Present, Soft, Non Tender Extremities: Trace RLE Edema, Trace LLE Edema Neurological: No Focal Motor or Sensory Deficit Psych/Mental Status: Appropriate 04/21/18 00:55: APTT 78.8 H 04/21/18 04:35: WBC 5.7, RBC 4.04 L, Hgb 10.9 L, Hct 33.7 L, MCV 83.4, MCH 27.0, MCHC 32.3, RDW 16.1 H, RDW Differential 49.2 H, Plt Count 156, MPV 10.5, Immature Gran % (Auto) 0.400, Neut % (Auto) 56.5, Lymph % (Auto) 32.6, [place] % (Auto) 6.1, Eos % (Auto) 3.3, Baso % (Auto) 1.1 H, Absolute Neuts (auto) 3.2, Total Counted Not Reportable 04/21/18 04:35: PT 16.3 H, INR 1.3 04/21/18 04:35: Sodium 141, Potassium 4.0, Chloride 106, Carbon Dioxide 27.0, Anion Gap 8, BUN 14, Creatinine 0.71, Est GFR (MDRD) Af Amer 106, Est GFR (MDRD) Non-Af 87, BUN/Creatinine Ratio 19.8, Glucose 156 H, Calcium 8.3 L 04/21/18 06:45: APTT 76.1 H Rhythm: Sinus rhythm EKG: Sinus bradycardia; nonspecific ST segment abnormality Medical Necessity - Tobacco Use Smoking Status: Former smoker Tobacco Use: Cigarettes Assessment/Plan 1. CAD status post CABG-remote The patient has a history of CAD status post remote CABG. The patient states that this was remote at [facility] in [facility]. She has been having recurrent chest discomfort. She has undergone evaluation with cardiac enzymes which have been negative. Her ECG demonstrates no acute changes. She is also undergone evaluation earlier this month with both a transthoracic echocardiogram and an exercise tolerance test/imaging study-pharmacologic. The studies demonstrated her left ventricle to be preserved with respect to wall motion and systolic function and no definitive evidence of ongoing myocardial ischemia. The patient is now status post diagnostic cardiac catheterization. She was found to have multivessel coronary artery disease. Her SHELBY graft to the LAD was patent. Her SVG graft to the LCx was occluded. Her SVG graft to the RCA was occluded. Her case was reviewed with Dr. Shaw of [facility]. The consensus was to proceed with an attempt at RCA proximal PTCA/stent to assist a moderate to large sized long unprotected acute marginal branch. This was attempted. A PTCA was performed. However successful stent placement was unable to be performed secondary to concerns of underlying calcification. The patient has been placed on additional medical therapy with Ranexa. If despite multiple medications she continues to have symptoms concerning for angina pectoris then she would need to be referred to a tertiary care center for consideration for high risk cardiac catheterization/PCI due to her [place] vessel calcification. 2. Status post aortic valve replacement The patient is mechanical prosthetic valve was evaluated under fluoroscopy this day. It appears to be a bileaflet valve. The leaflets appear to be opening and closing appropriately. The patient has been through anticoagulation bridging in the past. He notes that she did have an attempt at subcutaneous Lovenox in the past. She states it was extremely painful to her. At the present time she will continue in the hospital post her cardiac catheterization/PTCA procedure-no stent with IV heparin pending her oral anticoagulant therapy becoming therapeutic with respect to her INR levels. In the interim she should continue AHA antibiotic prophylaxis. 3. Paroxysmal atrial fibrillation At the present time she remains in sinus rhythm. She will continue a combination of rate control therapy, antiarrhythmic therapy, and anticoagulant therapy as deemed appropriate. 4. Bradycardia Apparently there is been concerns in the past that she has developed episodes of bradycardia especially post return to sinus rhythm. Thus her medications have been adjusted in the past. At the moment her rate and rhythm. Be stable. She will continue to be followed. 5. Hyperlipidemia She will continue medical management. 6. Hypertension Her blood pressure can be followed. Her medications can be adjusted as needed. 7. Diabetes The patient will need to continue on her care of internal medicine for her diabetes. 8. COPD The patient does have a history of COPD. This can contribute to her shortness of breath and dyspnea. He could also potentially contribute to concerns of her atrial dysrhythmia. She will need continue evaluation care per internal medicine and pulmonology as deemed appropriate. 9. Obesity The patient remains overweight. Again this could contribute to her shortness of breath and dyspnea as well. He has been counseled on dietary adjustment and exercise as best as possible and attempt to bring her weight under better control. Comment: The above was discussed and reviewed with the patient and Dr. Soni. This note was generated using a voice recognition system and there may be incorrect words, spelling or punctuation that were not noted when reviewing the office note prior to saving.
[2018-04-21] MEDS: Atenolol 50 MG Tablet PO (11:22)
--- NOTE | 2018-04-21 11:23 | PCM.PN.HOSP ---
Patient Problems: Active and Suspected Problems Chest pain at rest (Acute) Chest pain (Acute) Subjective: No events overnight. Still apprehensive about Lovenox injections. Vitals/I&O's: Vital Signs Temp Pulse Resp BP Pulse Ox 36.8 C 58 L 19 H 152/36 H 93 04/21/18 09:00 04/21/18 10:00 04/21/18 10:00 04/21/18 10:00 04/21/18 10:00 Oxygen Flow Rate (L/min) 2 Oxygen Delivery Method Room Air Weight: 104.3 kg Body Mass Index (BMI) 41.1 Intake and Output for Last 24 Hours 04/19/18 04/20/18 04/21/18 23:59 23:59 23:59 Intake Total 1080 / 1080 696.5 / 696.5 718.8 / 718.8 Output Total 800 / 800 1050 / 1050 Balance 1080 / 1080 -103.5 / -103.5 -331.2 / -331.2 General: Alert, No apparent distress HEENT: Atraumatic, Normocephalic Oral: Moist Mucosa, No Gingival or Mucosal Lesions/ Ulcerations Neck: No Nodes, Thyroid Normal Size and Texture Lungs: Clear to auscultation, Normal air movement, No rhonchi, No wheeze Cardiovascular: Regular rate, Regular Rhythm, Normal S1, Normal S2, No murmurs Abdomen: Bowel Sounds Present, Soft, Non Tender, Non-Distended, No Hepato-splenomegaly Extremities: No edema, No Calf Tenderness Laboratory Results 04/20/18 14:46: POC Glucose 156 H 04/20/18 17:02: POC Glucose 140 H 04/20/18 21:10: POC Glucose 179 H 04/21/18 00:55: APTT 78.8 H 04/21/18 04:35: WBC 5.7, RBC 4.04 L, Hgb 10.9 L, Hct 33.7 L, MCV 83.4, MCH 27.0, MCHC 32.3, RDW 16.1 H, RDW Differential 49.2 H, Plt Count 156, MPV 10.5, Immature Gran % (Auto) 0.400, Neut % (Auto) 56.5, Lymph % (Auto) 32.6, [place] % (Auto) 6.1, Eos % (Auto) 3.3, Baso % (Auto) 1.1 H, Absolute Neuts (auto) 3.2, Absolute Lymphs (auto) 1.86, Total Counted Not Reportable 04/21/18 04:35: PT 16.3 H, INR 1.3 04/21/18 04:35: Sodium 141, Potassium 4.0, Chloride 106, Carbon Dioxide 27.0, Anion Gap 8, BUN 14, Creatinine 0.71, Estim Creat Clear Calc 43.92, Est GFR (MDRD) Af Amer 106, Est GFR (MDRD) Non-Af 87, BUN/Creatinine Ratio 19.8, Glucose 156 H, Calcium 8.3 L 04/21/18 06:45: APTT 76.1 H 04/21/18 08:22: POC Glucose 157 H Current Medications Acetaminophen (Tylenol) 650 mg PO Q6H PRN PRN PRN Reason: Mild Pain (1-3)/Temp > 100.7 F [facility]: 04/21/18 09:12 Dose: 200 mg Amlodipine Besylate (Norvasc) 10 mg PO DAILY [facility] Last Admin: 04/21/18 09:14 Dose: 10 mg [facility]ir[facility] ([facility]) [facility] Last Admin: 04/21/18 09:14 Dose: 81 mg Atenolol (Tenormin (Beta Arie)) 50 mg PO DAILY [facility] Last Admin: 04/21/18 11:22 Dose: 50 mg Atorvastatin Calcium (Lipitor) 20 mg PO QHS [facility] Last Admin: 04/20/18 21:13 Dose: 20 mg Buspirone HCl (Buspar) 5 mg PO TID [facility] Last Admin: 04/21/18 04:42 Dose: 5 mg Clopidogrel Bisulfate (Plavix) 75 mg PO DAILY [facility] Last Admin: 04/21/18 09:14 Dose: 75 mg Dextrose (D50w Syringe) 0 gm IV X1 PRN; Protocol PRN Reason: Hypoglycemia Ferrous Sulfate (Ferrous Sulfate) 325 mg PO BIDCM@1200,1700 [facility] Last Admin: 04/20/18 21:11 Dose: 325 mg Furosemide (Lasix) 20 mg PO DAILY [facility] Last Admin: 04/21/18 09:11 Dose: 20 mg Glucagon () 1 mg IM .X1 PRN PRN Reason: Hypoglycemia Heparin Sodium (Porcine) (Heparin Na) 0 unit IV UD PRN; Protocol Sodium Chloride () 1,000 mls @ 0 mls/hr IV .Q0M [facility] Heparin Sodium/Dextrose () 25,000 units in 250 mls @ 15 mls/hr IV .[id number] [facility]; Protocol Last Admin: 04/20/18 18:57 Dose: 15 mls/hr Insulin Human Lispro (Humalog Kwikpen (Bkc)) 0 unit SQ ACHS [facility]; Protocol Last Admin: 04/21/18 08:28 Dose: 1 u Isosorbide Mononitrate (Imdur) 120 mg PO DAILY [facility] Last Admin: 04/21/18 09:12 Dose: 120 mg Labetalol HCl (Trandate) 10 mg IV Q4H PRN PRN PRN Reason: SBP > 160 Loratadine (Claritin) 10 mg PO DAILY [facility] Last Admin: 04/21/18 09:14 Dose: 10 mg Losartan Potassium (Cozaar) 100 mg PO QHS [facility] Last Admin: 04/20/18 21:12 Dose: 100 mg Magnesium Hydroxide (Milk Of Magnesia) 30 ml PO DAILY PRN PRN Reason: Constipation Magnesium Oxide (Mag-Ox 400) [facility] Last Admin: 04/21/18 09:13 Dose: 400 mg Meclizine HCl (Antivert) 25 mg PO TID PRN PRN PRN Reason: DIZZINESS Melatonin (Melatonin) 5 mg PO QHS PRN PRN Reason: SLEEP Last Admin: 04/19/18 21:12 Dose: 5 mg Morphine Sulfate () 2 - 4 mg IV Q4H PRN PRN PRN Reason: MOD-SEVERE PAIN (4-10/10) Morphine Sulfate () 2 - 4 mg IV Q4H PRN PRN PRN Reason: MOD-SEVERE PAIN (4-10/10) Nitroglycerin (Nitrostat) 0.4 mg SUBLINGUAL Q5M PRN PRN Reason: CHEST PAIN Nystatin (Mycostatin) 1 applic TOPICAL BID PRN PRN PRN Reason: redness in groin Pantoprazole Sodium (Protonix) 40 mg PO BID [facility] Last Admin: 04/21/18 09:11 Dose: 40 mg Potassium Chloride (K-Dur) [facility]q [facility] Last Admin: 04/21/18 09:12 Dose: 20 meq Ranolazine (Ranexa) 500 mg PO BID [facility] Last Admin: 04/21/18 09:13 Dose: 500 mg Sodium Chloride () 5 - 15 ml IV UD PRN PRN Reason: SALINE FLUSH Last Admin: 04/21/18 04:43 Dose: 15 ml Tizanidine HCl (Zanaflex) 4 mg PO QHS PRN PRN Reason: SPASMS Tolterodine Tartrate (Detrol La) 2 mg PO DAILY [facility] Last Admin: 04/21/18 09:12 Dose: 2 mg Warfarin Sodium (Coumadin (Pbkc)) 10 mg PO X1 ONE Stop: 04/21/18 17:01 Medical Necessity - Tobacco Use Smoking Status: Former smoker Tobacco Use: Cigarettes Assessment/Plan All Active Problems Chest pain at rest (Acute) Chest pain (Acute) Anxiety about health (Acute) Subtherapeutic international normalized ratio (INR) (Acute) 1. chest pain known CAD stress test negative on 03/28 [facility] showed in-stent stenosis at the RCA. PCI attempted, but unsuccessful medical mgmt per cardiology. 2. DM2 fair control 3. Mechanical AVR resume coumadin INR 1.3 today, despite 7.5 of coumadin on 04/20 will give 10 mg of coumadin today bridge with heparin gtt Pt does not want Lovenox, due to knots. Appears very anxious about it. As previous, explained to her that Lovenox is noninferior to heparin regards to bridging anticoagulation with medical aortic valves. Told her that there is no contraindication to her being on Lovenox. Patient is expressed extreme apprehension about it and apparently declined it. Therefore patient does need anticoagulation and I feel the patient can go home with Lovenox, however she continues to decline and insisting to be on heparin. I did explain to her that she would be at risk for further hospital-acquired infections by prolonged hospital stay with the anticoagulation of heparin. I did advise several occasions Lovenox as she can have this done at home. I did express to the patient that I am not sure how that if this would affect her reimbursement being that she has declined medical advice in regards to other anticoagulation options that can be easily done at home. Code Visit Inpatient E&M: 65827 Subs Hosp L2
--- NOTE | 2018-04-21 11:27 | PN_ITS ---
Patient Problems: Active and Suspected Problems Chest pain at rest (Acute) Chest pain (Acute) Subjective: No events overnight. Still apprehensive about Lovenox injections. Vitals/I&O's: Vital Signs Temp Pulse Resp BP Pulse Ox 36.8 C 58 L 19 H 152/36 H 93 04/21/18 09:00 04/21/18 10:00 04/21/18 10:00 04/21/18 10:00 04/21/18 10:00 Oxygen Flow Rate (L/min) 2 Oxygen Delivery Method Room Air Weight: 104.3 kg Body Mass Index (BMI) 41.1 Intake and Output for Last 24 Hours 04/19/18 04/20/18 04/21/18 23:59 23:59 23:59 Intake Total 1080 / 1080 696.5 / 696.5 718.8 / 718.8 Output Total 800 / 800 1050 / 1050 Balance 1080 / 1080 -103.5 / -103.5 -331.2 / -331.2 General: Alert, No apparent distress HEENT: Atraumatic, Normocephalic Oral: Moist Mucosa, No Gingival or Mucosal Lesions/ Ulcerations Neck: No Nodes, Thyroid Normal Size and Texture Lungs: Clear to auscultation, Normal air movement, No rhonchi, No wheeze Cardiovascular: Regular rate, Regular Rhythm, Normal S1, Normal S2, No murmurs Abdomen: Bowel Sounds Present, Soft, Non Tender, Non-Distended, No Hepato-splenomegaly Extremities: No edema, No Calf Tenderness Laboratory Results 04/20/18 14:46: POC Glucose 156 H 04/20/18 17:02: POC Glucose 140 H 04/20/18 21:10: POC Glucose 179 H 04/21/18 00:55: APTT 78.8 H 04/21/18 04:35: WBC 5.7, RBC 4.04 L, Hgb 10.9 L, Hct 33.7 L, MCV 83.4, MCH 27.0, MCHC 32.3, RDW 16.1 H, RDW Differential 49.2 H, Plt Count 156, MPV 10.5, Immature Gran % (Auto) 0.400, Neut % (Auto) 56.5, Lymph % (Auto) 32.6, [place] % (Auto) 6.1, Eos % (Auto) 3.3, Baso % (Auto) 1.1 H, Absolute Neuts (auto) 3.2, Absolute Lymphs (auto) 1.86, Total Counted Not Reportable 04/21/18 04:35: PT 16.3 H, INR 1.3 04/21/18 04:35: Sodium 141, Potassium 4.0, Chloride 106, Carbon Dioxide 27.0, Anion Gap 8, BUN 14, Creatinine 0.71, Estim Creat Clear Calc 43.92, Est GFR (MDRD) Af Amer 106, Est GFR (MDRD) Non-Af 87, BUN/Creatinine Ratio 19.8, Glucose 156 H, Calcium 8.3 L 04/21/18 06:45: APTT 76.1 H 04/21/18 08:22: POC Glucose 157 H Current Medications Acetaminophen (Tylenol) 650 mg PO Q6H PRN PRN PRN Reason: Mild Pain (1-3)/Temp > 100.7 F Amiodarone [facility] ([facility]) [facility] Last Admin: 04/21/18 09:12 Dose: 200 mg Amlodipine Besylate (Norvasc) 10 mg PO DAILY [facility] Last Admin: 04/21/18 09:14 Dose: 10 mg Aspirin (Ecotrin) [facility] Last Admin: 04/21/18 09:14 Dose: 81 mg Atenolol (Tenormin (Beta Arie)) 50 mg PO DAILY [facility] Last Admin: 04/21/18 11:22 Dose: 50 mg Atorvastatin Calcium (Lipitor) 20 mg PO QHS [facility] Last Admin: 04/20/18 21:13 Dose: 20 mg Buspirone HCl (Buspar) 5 mg PO TID [facility] Last Admin: 04/21/18 04:42 Dose: 5 mg Clopidogrel Bisulfate (Plavix) 75 mg PO DAILY [facility] Last Admin: 04/21/18 09:14 Dose: 75 mg Dextrose (D50w Syringe) 0 gm IV X1 PRN; Protocol PRN Reason: Hypoglycemia Ferrous Sulfate (Ferrous Sulfate) 325 mg PO BIDCM@1200,1700 [facility] Last Admin: 04/20/18 21:11 Dose: 325 mg Furosemide (Lasix) 20 mg PO DAILY [facility] Last Admin: 04/21/18 09:11 Dose: 20 mg Glucagon () 1 mg IM .X1 PRN PRN Reason: Hypoglycemia Heparin Sodium (Porcine) (Heparin Na) 0 unit IV UD PRN; Protocol Sodium Chloride () 1,000 mls @ 0 mls/hr IV .Q0M [facility] Heparin Sodium/Dextrose () 25,000 units in 250 mls @ 15 mls/hr IV .[id number] [facility]; Protocol Last Admin: 04/20/18 18:57 Dose: 15 mls/hr Insulin Human Lispro (Humalog Kwikpen (Bkc)) 0 unit SQ ACHS [facility]; Protocol Last Admin: 04/21/18 08:28 Dose: 1 u Isosorbide Mononitrate (Imdur) 120 mg PO DAILY [facility] Last Admin: 04/21/18 09:12 Dose: 120 mg Labetalol HCl (Trandate) 10 mg IV Q4H PRN PRN PRN Reason: SBP > 160 Loratadine (Claritin) 10 mg PO DAILY [facility] Last Admin: 04/21/18 09:14 Dose: 10 mg Losartan Potassium (Cozaar) 100 mg PO QHS [facility] Last Admin: 04/20/18 21:12 Dose: 100 mg Magnesium Hydroxide (Milk Of Magnesia) 30 ml PO DAILY PRN PRN Reason: Constipation Magnesium Oxide (Mag-Ox 400) [facility] Last Admin: 04/21/18 09:13 Dose: 400 mg Meclizine HCl (Antivert) 25 mg PO TID PRN PRN PRN Reason: DIZZINESS Melatonin (Melatonin) 5 mg PO QHS PRN PRN Reason: SLEEP Last Admin: 04/19/18 21:12 Dose: 5 mg Morphine Sulfate () 2 - 4 mg IV Q4H PRN PRN PRN Reason: MOD-SEVERE PAIN (4-10/10) Morphine Sulfate () 2 - 4 mg IV Q4H PRN PRN PRN Reason: MOD-SEVERE PAIN (4-10/10) Nitroglycerin (Nitrostat) 0.4 mg SUBLINGUAL Q5M PRN PRN Reason: CHEST PAIN Nystatin (Mycostatin) 1 applic TOPICAL BID PRN PRN PRN Reason: redness in groin Pantoprazole Sodium (Protonix) 40 mg PO BID [facility] Last Admin: 04/21/18 09:11 Dose: 40 mg Potassium Chloride (K-Dur) 20 meq [facility] Last Admin: 04/21/18 09:12 Dose: 20 meq Ranolazine (Ranexa) 500 mg PO BID [facility] Last Admin: 04/21/18 09:13 Dose: 500 mg Sodium Chloride () 5 - 15 ml IV UD PRN PRN Reason: SALINE FLUSH Last Admin: 04/21/18 04:43 Dose: 15 ml Tizanidine HCl (Zanaflex) 4 mg PO QHS PRN PRN Reason: SPASMS Tolterodine Tartrate (Detrol La) 2 mg PO DAILY [facility] Last Admin: 04/21/18 09:12 Dose: 2 mg Warfarin Sodium (Coumadin (Pbkc)) 10 mg PO X1 ONE Stop: 04/21/18 17:01 Medical Necessity - Tobacco Use Smoking Status: Former smoker Tobacco Use: Cigarettes Assessment/Plan All Active Problems Chest pain at rest (Acute) Chest pain (Acute) Anxiety about health (Acute) Subtherapeutic international normalized ratio (INR) (Acute) 1. chest pain * known CAD * stress test negative on 03/28 * [facility] showed in-stent stenosis at the RCA. PCI attempted, but unsuccessful * medical mgmt per cardiology. 2. DM2 * fair control 3. Mechanical AVR * resume coumadin * INR 1.3 today, despite 7.5 of coumadin on 04/20 * will give 10 mg of coumadin today * bridge with heparin gtt * Pt does not want Lovenox, due to knots. Appears very anxious about it. As previous, explained to her that Lovenox is noninferior to heparin regards to bridging anticoagulation with medical aortic valves. Told her that there is no contraindication to her being on Lovenox. Patient is expressed extreme apprehension about it and apparently declined it. Therefore patient does need anticoagulation and I feel the patient can go home with Lovenox, however she continues to decline and insisting to be on heparin. I did explain to her that she would be at risk for further hospital-acquired infections by p anders hospital stay with the anticoagulation of heparin. I did advise several occasions Lovenox as she can have this done at home. I did express to the patient that I am not sure how that if this would affect her reimbursement being that she has declined medical advice in regards to other anticoagulation options that can be easily done at home. Code Visit Inpatient E&M: 35901 Subs Hosp L2
[2018-04-21] MEDS: HEPARIN/D5w 25,000 UNITS 25,000 UNITS/250 ML IV.SOLN. 15 UNITS IV (11:37)
[2018-04-21] MEDS: Ferrous Sulfate 325 MG Tablet PO ×2 (12:05→16:44)
[2018-04-21 12:11] LABS: Bedside Glucose 184 mg/dL (70-110)
[2018-04-21] MEDS: Magnesium Hydroxide 30 ML UDC PO (16:42)
[2018-04-21 16:45] LABS: Bedside Glucose 201 mg/dL (70-110)
--- NOTE | 2018-04-21 19:20 | NURSING ---
HEPARIN DRIP CHECKED WITH THAIS KAPADIA. RUNNING @ 1500 UNITS/HOUR.
[2018-04-21] MEDS: Losartan Potassium 100 MG Tablet PO (21:39)
[2018-04-21] MEDS: Atorvastatin Calcium 20 MG Tablet PO (21:39)
[2018-04-21 22:06] LABS: Bedside Glucose 183 mg/dL (70-110)
[2018-04-22] VITALS (10 sets, daily range): BP systolic 128–162; BP diastolic 46–67; PULSE 63–69; RESP 16–18; TEMP 36.5–36.9; O2SAT 92–98
[2018-04-22 01:49] LABS: Partial Thromboplast Time 66.6 Seconds (24.1-36.2)
[2018-04-22 03:32] LABS: Absolute Lymphocyte Count 1.43 X10^3/ul (0.83-4.51); Absolute Neutrophil Count 4.8 X10^3/uL (2.0-7.7); Basophil# 0.07 X10^3/uL; Eosinophil# 0.21 X10^3/uL; Eosinophils% 2.9 % (0-5); Hematocrit 34.1 % (37-47); Hemoglobin 11.1 g/dl (12.0-15.0); Lymphocyte # 1.43 X10^3/ul (4.0); Lymphocyte % 19.9 % (19-41); Mean Corp Hgb Conc 32.6 g/gl (32-36); Mean Corpuscular Hgb 27.4 pg (27.0-32.0); Mean Corpuscular Volume 84.2 fL (81-99); Mean Platelet Vol. 11.5 fl (6.2-12.0); Monocyte# 0.66 X10^3/uL; Monocyte% 9.2 % (0-10); Neutrophil # 4.77 X10^3/uL (2.7-7.7); Neutrophil % 66.3 % (47-70); Platelet Count 166 K/mm3 (150-450); RBC Distribution Width CV 15.9 % (11.6-14.6); RBC Distribution Width SD 47.3 fl (35.1-43.9); Red Blood Count 4.05 M/mm3 (4.2-5.4); White Blood Count 7.2 K/mm3 (4.4-11.0)
[2018-04-22 03:35] LABS: Partial Thromboplast Time 38.7 Seconds (24.1-36.2)
[2018-04-22 03:43] LABS: POSITIVE COUNT NO; POSITIVE DIFFERENTIAL NO; POSITIVE MORPHOLOGY NO
[2018-04-22] MEDS: Magnesium Hydroxide 30 ML UDC PO (03:49)
[2018-04-22 04:00] LABS: International Normalized Ratio 1.3
[2018-04-22] MEDS: HEPARIN/D5w 25,000 UNITS 25,000 UNITS/250 ML IV.SOLN. 15 UNITS IV (06:19)
[2018-04-22] MEDS: busPIRone 5 MG Tablet PO ×3 (06:22→21:37)
[2018-04-22] MEDS: Insulin Lispro 100 UNIT/ML INSULN.PEN SQ ×4 (06:46→21:47)
[2018-04-22 06:56] LABS: Bedside Glucose 158 mg/dL (70-110)
[2018-04-22] MEDS: Atenolol 50 MG Tablet PO (08:35)
[2018-04-22] MEDS: amLODIPine 10 MG Tablet PO (08:36)
[2018-04-22] MEDS: Amiodarone 200 MG Tablet PO (08:36)
[2018-04-22] MEDS: Ranolazine 500 MG Tablet PO ×2 (08:36→21:37)
[2018-04-22] MEDS: Pantoprazole Sodium 40 MG Tablet PO ×2 (08:36→21:37)
[2018-04-22] MEDS: Loratadine 10 MG Tablet PO (08:36)
[2018-04-22] MEDS: Magnesium Oxide 400 MG Tablet PO (08:36)
[2018-04-22] MEDS: Furosemide 20 MG Tablet PO (08:37)
[2018-04-22] MEDS: Aspirin E.C. 81 MG Tablet PO (08:37)
[2018-04-22] MEDS: Tolterodine Tartrate 2 MG CAP.SA PO (08:38)
[2018-04-22] MEDS: Clopidogrel Bisulfate 75 MG Tablet PO (08:42)
--- NOTE | 2018-04-22 11:04 | PCM.PN.HOSP ---
Patient Problems: Active and Suspected Problems Chest pain at rest (Acute) Chest pain (Acute) Hematuria (Acute) Subjective: developed hematuria last night. has had hematuria x2 remotely. work up was unremarkable. Vitals/I&O's: Vital Signs Temp Pulse Resp BP Pulse Ox 36.5 C L 67 18 162/46 H 97 04/22/18 08:35 04/22/18 08:35 04/22/18 08:35 04/22/18 08:35 04/22/18 08:35 Oxygen Flow Rate (L/min) 2 Oxygen Delivery Method Room Air Weight: 104.3 kg Body Mass Index (BMI) 41.1 Intake and Output for Last 24 Hours 04/20/18 04/21/18 04/22/18 23:59 23:59 23:59 Intake Total 696.5 / 696.5 1433.8 / 1433.8 1218.1 / 1218.1 Output Total 800 / 800 1850 / 1850 1150 / 1150 Balance -103.5 / -103.5 -416.2 / -416.2 68.1 / 68.1 General: Alert, No apparent distress HEENT: Atraumatic, Normocephalic Oral: Moist Mucosa, No Gingival or Mucosal Lesions/ Ulcerations Neck: No Nodes, Thyroid Normal Size and Texture Lungs: Clear to auscultation, Normal air movement, No rhonchi, No wheeze Cardiovascular: Regular rate, Regular Rhythm, Normal S1, Normal S2, - - aortic click Abdomen: Bowel Sounds Present, Soft, Non Tender, Non-Distended, No Hepato-splenomegaly Extremities: No edema, No Calf Tenderness Skin: No rashes, No breakdown Psych/Mental Status: Normal Affect, Appropriate Comment: dark red urine in toilet saunders. Laboratory Results 04/21/18 12:03: POC Glucose 184 H 04/21/18 16:35: POC Glucose 201 H 04/21/18 21:42: POC Glucose 183 H 04/22/18 01:15: APTT 66.6 H 04/22/18 03:10: PT 16.0 H, INR 1.3, APTT Cancelled 04/22/18 03:10: WBC 7.2, RBC 4.05 L, Hgb 11.1 L, Hct 34.1 L, MCV 84.2, MCH 27.4, MCHC 32.6, RDW 15.9 H, RDW Differential 47.3 H, Plt Count 166, MPV 11.5, Immature Gran % (Auto) 0.700, Neut % (Auto) 66.3, Lymph % (Auto) 19.9, [place] % (Auto) 9.2, Eos % (Auto) 2.9, Baso % (Auto) 1.0, Absolute Neuts (auto) 4.8, Absolute Lymphs (auto) 1.43, Total Counted Not Reportable 04/22/18 03:10: APTT 38.7 H 04/22/18 06:44: POC Glucose 158 H Current Medications Acetaminophen (Tylenol) 650 mg PO Q6H PRN PRN PRN Reason: Mild Pain (1-3)/Temp > 100.7 F Amiodarone HCl (Cordarone) [facility] Last Admin: 04/22/18 08:36 Dose: 200 mg Amlodipine Besylate (Norvasc) 10 mg PO DAILY [facility] Last Admin: 04/22/18 08:36 Dose: 10 mg Aspirin (Ecotrin) 81 mg [facility] Last Admin: 04/22/18 08:37 Dose: 81 mg Atenolol (Tenormin (Beta Arie)) 50 mg PO DAILY [facility] Last Admin: 04/22/18 08:35 Dose: 50 mg Atorvastatin Calcium (Lipitor) 20 mg PO QHS [facility] Last Admin: 04/21/18 21:39 Dose: 20 mg Buspirone HCl (Buspar) 5 mg PO TID [facility] Last Admin: 04/22/18 06:22 Dose: 5 mg Clopidogrel Bisulfate (Plavix) 75 mg PO DAILY [facility] Last Admin: 04/22/18 08:42 Dose: 75 mg Dextrose (D50w Syringe) 0 gm IV X1 PRN; Protocol PRN Reason: Hypoglycemia Ferrous Sulfate (Ferrous Sulfate) 325 mg PO BIDCM@1200,1700 [facility] Last Admin: 04/21/18 16:44 Dose: 325 mg Furosemide (Lasix) 20 mg PO DAILY [facility] Last Admin: 04/22/18 08:37 Dose: 20 mg Glucagon () 1 mg IM .X1 PRN PRN Reason: Hypoglycemia Sodium Chloride () 1,000 mls @ 0 mls/hr IV .Q0M [facility] Insulin Human Lispro (Humalog Kwikpen (Bkc)) 0 unit SQ ACHS [facility]; Protocol Last Admin: 04/22/18 06:46 Dose: 1 u Isosorbide Mononitrate (Imdur) 120 mg PO DAILY [facility] Last Admin: 04/22/18 08:37 Dose: 120 mg Labetalol HCl (Trandate) 10 mg IV Q4H PRN PRN PRN Reason: SBP > 160 Loratadine (Claritin) 10 mg PO DAILY [facility] Last Admin: 04/22/18 08:36 Dose: 10 mg Losartan Potassium (Cozaar) 100 mg PO QHS [facility] Last Admin: 04/21/18 21:39 Dose: 100 mg Magnesium Hydroxide (Milk Of Magnesia) 30 ml PO DAILY PRN PRN Reason: Constipation Last Admin: 04/22/18 03:49 Dose: 30 ml Magnesium Oxide (Mag-Ox 400) 400 mg PO [facility]ILY[facility] Last Admin: 04/22/18 08:36 Dose: 400 mg Meclizine HCl (Antivert) 25 mg PO TID PRN PRN PRN Reason: DIZZINESS Melatonin (Melatonin) 5 mg PO QHS PRN PRN Reason: SLEEP Last Admin: 04/19/18 21:12 Dose: 5 mg Nitroglycerin (Nitrostat) 0.4 mg SUBLINGUAL Q5M PRN PRN Reason: CHEST PAIN Nystatin (Mycostatin) 1 applic TOPICAL BID PRN PRN PRN Reason: redness in groin Pantoprazole Sodium (Protonix) 40 mg PO BID [facility] Last Admin: 04/22/18 08:36 Dose: 40 mg Potassium Chloride (K-Dur) 20 meq PO DAILYUN[facility] Last Admin: 04/22/18 08:37 Dose: 20 meq Ranolazine (Ranexa) 500 mg PO BID [facility] Last Admin: 04/22/18 08:36 Dose: 500 mg Sodium Chloride () 5 - 15 ml IV UD PRN PRN Reason: SALINE FLUSH Last Admin: 04/21/18 04:43 Dose: 15 ml Tizanidine HCl (Zanaflex) 4 mg PO QHS PRN PRN Reason: SPASMS Tolterodine Tartrate (Detrol La) 2 mg PO DAILY [facility] Last Admin: 04/22/18 08:38 Dose: 2 mg Medical Necessity - Tobacco Use Smoking Status: Former smoker Tobacco Use: Cigarettes Assessment/Plan All Active Problems Chest pain at rest (Acute) Chest pain (Acute) Hematuria (Acute) Anxiety about health (Acute) Subtherapeutic international normalized ratio (INR) (Acute) 1. chest pain known CAD stress test negative on 03/28 [facility] showed in-stent stenosis at the RCA. PCI attempted, but unsuccessful medical mgmt per cardiology. on ASA, Plavix, atorvastatin. 2. DM2 fair control 3. Mechanical AVR INR 1.3 resume Coumadin after hematuria resolved 4. Hematuria acute patient did not have a catheter during this admission heparin stopped resume heparin after hematuria can be stopped if persists, then will require catheter and irrigation previous work up (per patient) has been negative check UA (UA on the was negative) if persists, may need urology evaluation. 5. DVT proph: SCDs while anticoagulation held. Code Visit Inpatient E&M: 12744 Subs Hosp L2
--- NOTE | 2018-04-22 11:09 | PN_ITS ---
Patient Problems: Active and Suspected Problems Chest pain at rest (Acute) Chest pain (Acute) Hematuria (Acute) Subjective: developed hematuria last night. has had hematuria x2 remotely. work up was unremarkable. Vitals/I&O's: Vital Signs Temp Pulse Resp BP Pulse Ox 36.5 C L 67 18 162/46 H 97 04/22/18 08:35 04/22/18 08:35 04/22/18 08:35 04/22/18 08:35 04/22/18 08:35 Oxygen Flow Rate (L/min) 2 Oxygen Delivery Method Room Air Weight: 104.3 kg Body Mass Index (BMI) 41.1 Intake and Output for Last 24 Hours 04/20/18 04/21/18 04/22/18 23:59 23:59 23:59 Intake Total 696.5 / 696.5 1433.8 / 1433.8 1218.1 / 1218.1 Output Total 800 / 800 1850 / 1850 1150 / 1150 Balance -103.5 / -103.5 -416.2 / -416.2 68.1 / 68.1 General: Alert, No apparent distress HEENT: Atraumatic, Normocephalic Oral: Moist Mucosa, No Gingival or Mucosal Lesions/ Ulcerations Neck: No Nodes, Thyroid Normal Size and Texture Lungs: Clear to auscultation, Normal air movement, No rhonchi, No wheeze Cardiovascular: Regular rate, Regular Rhythm, Normal S1, Normal S2, - - aortic click Abdomen: Bowel Sounds Present, Soft, Non Tender, Non-Distended, No Hepato- splenomegaly Extremities: No edema, No Calf Tenderness Skin: No rashes, No breakdown Psych/Mental Status: Normal Affect, Appropriate Comment: dark red urine in toilet saunders. Laboratory Results 04/21/18 12:03: POC Glucose 184 H 04/21/18 16:35: POC Glucose 201 H 04/21/18 21:42: POC Glucose 183 H 04/22/18 01:15: APTT 66.6 H 04/22/18 03:10: PT 16.0 H, INR 1.3, APTT Cancelled 04/22/18 03:10: WBC 7.2, RBC 4.05 L, Hgb 11.1 L, Hct 34.1 L, MCV 84.2, MCH 27.4, MCHC 32.6, RDW 15.9 H, RDW Differential 47.3 H, Plt Count 166, MPV 11.5, Immature Gran % (Auto) 0.700, Neut % (Auto) 66.3, Lymph % (Auto) 19.9, [place] % (Auto) 9.2, Eos % (Auto) 2.9, Baso % (Auto) 1.0, Absolute Neuts (auto) 4.8, Absolute Lymphs (auto) 1.43, Total Counted Not Reportable 04/22/18 03:10: APTT 38.7 H 04/22/18 06:44: POC Glucose 158 H Current Medications Acetaminophen (Tylenol) 650 mg PO Q6H PRN PRN PRN Reason: Mild Pain (1-3)/Temp > 100.7 F [facility] Last Admin: 04/22/18 08:36 Dose: 200 mg Amlodipine Besylate (Norvasc) 10 mg PO DAILY [facility] Last Admin: 04/22/18 08:36 Dose: 10 mg Aspirin (Ecotrin) [facility] Last Admin: 04/22/18 08:37 Dose: 81 mg Atenolol (Tenormin (Beta Arie)) 50 mg PO DAILY [facility] Last Admin: 04/22/18 08:35 Dose: 50 mg Atorvastatin Calcium (Lipitor) 20 mg PO QHS [facility] Last Admin: 04/21/18 21:39 Dose: 20 mg Buspirone HCl (Buspar) 5 mg PO TID [facility] Last Admin: 04/22/18 06:22 Dose: 5 mg Clopidogrel Bisulfate (Plavix) 75 mg PO DAILY [facility] Last Admin: 04/22/18 08:42 Dose: 75 mg Dextrose (D50w Syringe) 0 gm IV X1 PRN; Protocol PRN Reason: Hypoglycemia Ferrous Sulfate (Ferrous Sulfate) 325 mg PO BIDCM@1200,1700 [facility] Last Admin: 04/21/18 16:44 Dose: 325 mg Furosemide (Lasix) 20 mg PO DAILY [facility] Last Admin: 04/22/18 08:37 Dose: 20 mg Glucagon () 1 mg IM .X1 PRN PRN Reason: Hypoglycemia Sodium Chloride () 1,000 mls @ 0 mls/hr IV .Q0M [facility] Insulin Human Lispro (Humalog Kwikpen (Bkc)) 0 unit SQ ACHS [facility]; Protocol Last Admin: 04/22/18 06:46 Dose: 1 u Isosorbide Mononitrate (Imdur) 120 mg PO DAILY [facility] Last Admin: 04/22/18 08:37 Dose: 120 mg Labetalol HCl (Trandate) 10 mg IV Q4H PRN PRN PRN Reason: SBP > 160 Loratadine (Claritin) 10 mg PO DAILY [facility] Last Admin: 04/22/18 08:36 Dose: 10 mg Losartan Potassium (Cozaar) 100 mg PO QHS [facility] Last Admin: 04/21/18 21:39 Dose: 100 mg Magnesium Hydroxide (Milk Of Magnesia) 30 ml PO DAILY PRN PRN Reason: Constipation Last Admin: 04/22/18 03:49 Dose: 30 ml Magnesium Oxide (Mag-Ox 400) [facility] Last Admin: 04/22/18 08:36 Dose: 400 mg Meclizine HCl (Antivert) 25 mg PO TID PRN PRN PRN Reason: DIZZINESS Melatonin (Melatonin) 5 mg PO QHS PRN PRN Reason: SLEEP Last Admin: 04/19/18 21:12 Dose: 5 mg Nitroglycerin (Nitrostat) 0.4 mg SUBLINGUAL Q5M PRN PRN Reason: CHEST PAIN Nystatin (Mycostatin) 1 applic TOPICAL BID PRN PRN PRN Reason: redness in groin Pantoprazole Sodium (Protonix) 40 mg PO BID [facility] Last Admin: 04/22/18 08:36 Dose: 40 mg Potassium Chloride (K-Dur) [facility]q [facility] Last Admin: 04/22/18 08:37 Dose: 20 meq Ranolazine (Ranexa) 500 mg PO BID [facility] Last Admin: 04/22/18 08:36 Dose: 500 mg Sodium Chloride () 5 - 15 ml IV UD PRN PRN Reason: SALINE FLUSH Last Admin: 04/21/18 04:43 Dose: 15 ml Tizanidine HCl (Zanaflex) 4 mg PO QHS PRN PRN Reason: SPASMS Tolterodine Tartrate (Detrol La) 2 mg PO DAILY [facility] Last Admin: 04/22/18 08:38 Dose: 2 mg Medical Necessity - Tobacco Use Smoking Status: Former smoker Tobacco Use: Cigarettes Assessment/Plan All Active Problems Chest pain at rest (Acute) Chest pain (Acute) Hematuria (Acute) Anxiety about health (Acute) Subtherapeutic international normalized ratio (INR) (Acute) 1. chest pain * known CAD * stress test negative on 03/28 * C showed in-stent stenosis at the RCA. PCI attempted, but unsuccessful * medical mgmt per cardiology. * on ASA, Plavix, atorvastatin. 2. DM2 * fair control 3. Mechanical AVR * INR 1.3 * resume Coumadin after hematuria resolved 4. Hematuria * acute * patient did not have a catheter during this admission * heparin stopped * resume heparin after hematuria can be stopped * if persists, then will require catheter and irrigation * previous work up (per patient) has been negative * check UA (UA on the was negative) * if persists, may need urology evaluation. 5. DVT proph: SCDs while anticoagulation held. Code Visit Inpatient E&M: 40549 Subs Hosp L2
[2018-04-22 11:23] LABS: Mucous, Urine 0 SEEN /hpf (<or=2+); Squamous Epithelial Cells - UA 0 SEEN /hpf (5-10)
[2018-04-22 11:27] LABS: Color, Urine Red (Yellow); Glucose, Dipstick Normal (Normal); Ketone-Dipstick Negative (Negative); Leukocyte Esterase-Dipstick 100 /ul (Negative); Nitrite-Dipstick Positive (Negative); Occult Blood-Urine 250 /ul (Negative); Protein-Dipstick 100 mg/dl (Negative); Urine Bilirubin Dipstick Negative (Negative); Urine Clarity Cloudy (Clear); Urine Urobilinogen Normal (Normal)
[2018-04-22 11:35] LABS: Bacteria 1+ /hpf (None Seen); Red Blood Cells-Urine > 100 SEEN /hpf (0-5); White Blood Cells 10-25 SEEN /hpf (0-5)
[2018-04-22] MEDS: Ferrous Sulfate 325 MG Tablet PO ×2 (11:47→16:24)
[2018-04-22 11:56] LABS: Bedside Glucose 255 mg/dL (70-110)
--- NOTE | 2018-04-22 12:20 | PCM.PN.CARD ---
Subjectve: The patient is awake and alert. She has been up and ambulating. She denies any ongoing chest discomfort or worsening shortness of breath. Objective: Vital Signs Temp Pulse Resp BP Pulse Ox 97.7 F L 65 18 162/46 H 97 04/22/18 08:35 04/22/18 12:00 04/22/18 08:35 04/22/18 08:35 04/22/18 08:35 Oxygen Flow Rate (L/min) 2 Oxygen Delivery Method Room Air Weight: 229 lb 15.074 oz Body Mass Index (BMI) 41.1 Intake and Output for Last 24 Hours 04/20/18 04/21/18 04/22/18 23:59 23:59 23:59 Intake Total 696.5 / 696.5 1433.8 / 1433.8 1800.1 / 1800.1 Output Total 800 / 800 1850 / 1850 2049 / 2049 Balance -103.5 / -103.5 -416.2 / -416.2 -249.9 / -249.9 General: Awake, Alert, Oriented x 3, Cooperative, No Acute Distress HEENT: Atraumatic, Normocephalic, PERRL, EOMI, Sclera Non Icteric Oral: Moist Mucosa Neck: Supple, Good ROM, No JVD Lungs: Clear to auscultation Cardiovascular: Regular Rhythm, Normal S1, [place] Prosthetic S2 Vascular: Normal Radial Pulses Abdomen: Bowel Sounds Present, Soft, Non Tender Extremities: Trace RLE Edema, Trace LLE Edema Neurological: No Focal Motor or Sensory Deficit Psych/Mental Status: Appropriate 04/22/18 01:15: APTT 66.6 H 04/22/18 03:10: PT 16.0 H, INR 1.3, APTT Cancelled 04/22/18 03:10: WBC 7.2, RBC 4.05 L, Hgb 11.1 L, Hct 34.1 L, MCV 84.2, MCH 27.4, MCHC 32.6, RDW 15.9 H, RDW Differential 47.3 H, Plt Count 166, MPV 11.5, Immature Gran % (Auto) 0.700, Neut % (Auto) 66.3, Lymph % (Auto) 19.9, [place] % (Auto) 9.2, Eos % (Auto) 2.9, Baso % (Auto) 1.0, Absolute Neuts (auto) 4.8, Total Counted Not Reportable 04/22/18 03:10: APTT 38.7 H 04/22/18 09:15: Urine Color Red, Urine Clarity Cloudy, Urine pH 8.0, Ur Specific [place] 1.010, Urine Protein 100 H, Urine Glucose (UA) Normal, Urine Ketones Negative, Urine Occult Blood 250 H, Urine Nitrite Positive H, Urine Bilirubin Negative, Urine Urobilinogen Normal, Ur Leukocyte Esterase 100 H, Urine RBC > 100 SEEN, Urine WBC 10-25 SEEN Rhythm: sinus rhythm Medical Necessity - Tobacco Use Smoking Status: Former smoker Tobacco Use: Cigarettes Assessment/Plan 1. CAD status post CABG-remote The patient has a history of CAD status post remote CABG. The patient states that this was remote at [facility] in [facility]. The patient is now status post diagnostic cardiac catheterization. She was found to have multivessel coronary artery disease. Her SHELBY graft to the LAD was patent. Her SVG graft to the LCx was occluded. Her SVG graft to the RCA was occluded. Her case was reviewed with Dr. Shaw of [facility] interventional cardiology. The consensus was to proceed with an attempt at RCA proximal PTCA/stent to assist a moderate to large sized long unprotected acute marginal branch. This was attempted. A PTCA was performed. However successful stent placement was unable to be performed secondary to concerns of underlying calcification. The patient has been placed on additional medical therapy with Ranexa. If despite multiple medications she continues to have symptoms concerning for angina pectoris then she would need to be referred to a tertiary care center for consideration for high risk cardiac catheterization/PCI due to her [place] vessel calcification. 2. Status post aortic valve replacement The patient is mechanical prosthetic valve was evaluated under fluoroscopy this day. It appears to be a bileaflet valve. The leaflets appear to be opening and closing appropriately. The patient has been through anticoagulation bridging in the past. He notes that she did have an attempt at subcutaneous Lovenox in the past. She states it was extremely painful to her. At the present time she will continue in the hospital post her cardiac catheterization/PTCA procedure-no stent with IV heparin pending her oral anticoagulant therapy becoming therapeutic with respect to her INR levels. In the interim she should continue [facility] antibiotic prophylaxis. 3. Paroxysmal atrial fibrillation At the present time she remains in sinus rhythm. She will continue a combination of rate control therapy, antiarrhythmic therapy, and anticoagulant therapy as deemed appropriate. 4. Bradycardia Apparently there is been concerns in the past that she has developed episodes of bradycardia especially post return to sinus rhythm. Thus her medications have been adjusted in the past. At the moment her rate and rhythm. Be stable. She will continue to be followed. 5. Hyperlipidemia She will continue medical management. 6. Hypertension Her blood pressure can be followed. Her medications can be adjusted as needed. 7. Diabetes The patient will need to continue on her care of internal medicine for her diabetes. 8. COPD The patient does have a history of COPD. This can contribute to her shortness of breath and dyspnea. This could also potentially contribute to concerns of her atrial dysrhythmia. She will need continue evaluation care per internal medicine and pulmonology as deemed appropriate. 9. Obesity The patient remains overweight. Again this could contribute to her shortness of breath and dyspnea as well. He has been counseled on dietary adjustment and exercise as best as possible and attempt to bring her weight under better control. Comment: The above was discussed and reviewed with the patient. This note was generated using a voice recognition system and there may be incorrect words, spelling or punctuation that were not noted when reviewing the office note prior to saving.
--- NOTE | 2018-04-22 12:23 | PN.CARD_ITS ---
Subjectve: The patient is awake and alert. She has been up and ambulating. She denies any ongoing chest discomfort or worsening shortness of breath. Objective: Vital Signs Temp Pulse Resp BP Pulse Ox 97.7 F L 65 18 162/46 H 97 04/22/18 08:35 04/22/18 12:00 04/22/18 08:35 04/22/18 08:35 04/22/18 08:35 Oxygen Flow Rate (L/min) 2 Oxygen Delivery Method Room Air Weight: 229 lb 15.074 oz Body Mass Index (BMI) 41.1 Intake and Output for Last 24 Hours 04/20/18 04/21/18 04/22/18 23:59 23:59 23:59 Intake Total 696.5 / 696.5 1433.8 / 1433.8 1800.1 / 1800.1 Output Total 800 / 800 1850 / 1850 2049 / 2049 Balance -103.5 / -103.5 -416.2 / -416.2 -249.9 / -249.9 General: Awake, Alert, Oriented x 3, Cooperative, No Acute Distress HEENT: Atraumatic, Normocephalic, PERRL, EOMI, Sclera Non Icteric Oral: Moist Mucosa Neck: Supple, Good ROM, No JVD Lungs: Clear to auscultation Cardiovascular: Regular Rhythm, Normal S1, [place] Prosthetic S2 Vascular: Normal Radial Pulses Abdomen: Bowel Sounds Present, Soft, Non Tender Extremities: Trace RLE Edema, Trace LLE Edema Neurological: No Focal Motor or Sensory Deficit Psych/Mental Status: Appropriate 04/22/18 01:15: APTT 66.6 H 04/22/18 03:10: PT 16.0 H, INR 1.3, APTT Cancelled 04/22/18 03:10: WBC 7.2, RBC 4.05 L, Hgb 11.1 L, Hct 34.1 L, MCV 84.2, MCH 27.4, MCHC 32.6, RDW 15.9 H, RDW Differential 47.3 H, Plt Count 166, MPV 11.5, Immature Gran % (Auto) 0.700, Neut % (Auto) 66.3, Lymph % (Auto) 19.9, [place] % (Auto) 9.2, Eos % (Auto) 2.9, Baso % (Auto) 1.0, Absolute Neuts (auto) 4.8, Total Counted Not Reportable 04/22/18 03:10: APTT 38.7 H 04/22/18 09:15: Urine Color Red, Urine Clarity Cloudy, Urine pH 8.0, Ur Specific [place] 1.010, Urine Protein 100 H, Urine Glucose (UA) Normal, Urine Ketones Negative, Urine Occult Blood 250 H, Urine Nitrite Positive H, Urine Bilirubin Negative, Urine Urobilinogen Normal, Ur Leukocyte Esterase 100 H, Urine RBC > 100 SEEN, Urine WBC 10-25 SEEN Rhythm: sinus rhythm Medical Necessity - Tobacco Use Smoking Status: Former smoker Tobacco Use: Cigarettes Assessment/Plan 1. CAD status post CABG-remote The patient has a history of CAD status post remote CABG. The patient states that this was remote at [facility] in [facility]. The patient is now status post diagnostic cardiac catheterization. She was found to have multivessel coronary artery disease. Her SHELBY graft to the LAD was patent. Her SVG graft to the LCx was occluded. Her SVG graft to the RCA was occluded. Her case was reviewed with Dr. Shaw of [facility] interventional cardiology. The consensus was to proceed with an attempt at RCA proximal PTCA/stent to assist a moderate to large sized long unprotected acute marginal branch. This was attempted. A PTCA was performed. However successful stent placement was unable to be performed secondary to concerns of underlying calcification. The patient has been placed on additional medical therapy with Ranexa. If despite multiple medications she continues to have symptoms concerning for angina pectoris then she would need to be referred to a tertiary care center for consideration for high risk cardiac catheterization/PCI due to her [place] vessel calcification. 2. Status post aortic valve replacement The patient is mechanical prosthetic valve was evaluated under fluoroscopy this day. It appears to be a bileaflet valve. The leaflets appear to be opening and closing appropriately. The patient has been through anticoagulation bridging in the past. He notes that she did have an attempt at subcutaneous Lovenox in the past. She states it was extremely painful to her. At the present time she will continue in the hospital post her cardiac catheterization/PTCA procedure-no stent with IV heparin pending her oral anti coagulant therapy becoming therapeutic with respect to her INR levels. In the interim she should continue [facility] antibiotic prophylaxis. 3. Paroxysmal atrial fibrillation At the present time she remains in sinus rhythm. She will continue a combination of rate control therapy, antiarrhythmic therapy, and anticoagulant therapy as deemed appropriate. 4. Bradycardia Apparently there is been concerns in the past that she has developed episodes of bradycardia especially post return to sinus rhythm. Thus her medications have been adjusted in the past. At the moment her rate and rhythm. Be stable. She will continue to be followed. 5. Hyperlipidemia She will continue medical management. 6. Hypertension Her blood pressure can be followed. Her medications can be adjusted as needed. 7. Diabetes The patient will need to continue on her care of internal medicine for her diabetes. 8. COPD The patient does have a history of COPD. This can contribute to her shortness of breath and dyspnea. This could also potentially contribute to concerns of her atrial dysrhythmia. She will need continue evaluation care per internal medicine and pulmonology as deemed appropriate. 9. Obesity The patient remains overweight. Again this could contribute to her shortness of breath and dyspnea as well. He has been counseled on dietary adjustment and exercise as best as possible and attempt to bring her weight under better control. Comment: The above was discussed and reviewed with the patient. This note was generated using a voice recognition system and there may be incorrect words, spelling or punctuation that were not noted when reviewing the office note prior to saving.
[2018-04-22 12:49] LABS: International Normalized Ratio 1.3
--- NOTE | 2018-04-22 16:51 | NURSING ---
ATTEMPT X2 RN'S TO PLACE [address] BILL FOR IRRIGATION WITHOUT SUCCESS. WILL NOTIFY .
[2018-04-22 17:15] LABS: Bedside Glucose 237 mg/dL (70-110)
[2018-04-22] MEDS: Acetaminophen 325 MG Tablet 650 MG PO (20:48)
[2018-04-22] MEDS: Losartan Potassium 100 MG Tablet PO (21:37)
[2018-04-22] MEDS: Atorvastatin Calcium 20 MG Tablet PO (21:37)
[2018-04-22 21:56] LABS: Bedside Glucose 200 mg/dL (70-110)
[2018-04-23] VITALS (11 sets, daily range): BP systolic 127–150; BP diastolic 47–63; PULSE 61–68; RESP 16–18; TEMP 36.5–36.9; O2SAT 94–97
[2018-04-23] MEDS: busPIRone 5 MG Tablet PO ×3 (05:42→20:40)
[2018-04-23 05:58] LABS: International Normalized Ratio 1.6; Prothrombin Time (Protime)PT. 18.7 SECONDS (11.7-14.9)
[2018-04-23 06:06] LABS: Hematocrit 35.4 % (37-47); Hemoglobin 11.5 g/dl (12.0-15.0); Mean Corp Hgb Conc 32.5 g/gl (32-36); Mean Corpuscular Hgb 27.4 pg (27.0-32.0); Mean Corpuscular Volume 84.5 fL (81-99); Mean Platelet Vol. 11.1 fl (6.2-12.0); Platelet Count 167 K/mm3 (150-450); RBC Distribution Width CV 16.5 % (11.6-14.6); RBC Distribution Width SD 48.7 fl (35.1-43.9); Red Blood Count 4.19 M/mm3 (4.2-5.4); White Blood Count 8.4 K/mm3 (4.4-11.0)
[2018-04-23 06:07] LABS: Differential Indicated MANUAL DIFF; POSITIVE COUNT NO; POSITIVE DIFFERENTIAL NO; POSITIVE MORPHOLOGY YES
[2018-04-23 06:10] LABS: Anion Gap 10 (5-15); BUN 13 mg/dL (7-18); BUN/Creat Ratio 17.3 RATIO (10-20); Calcium,Total 8.7 mg/dL (8.5-10.1); Chloride 103 mmol/L (98-107); Creatinine, Serum 0.75 mg/dL (0.55-1.02); EST Glomerular Filtration Rate 81 mL/min (>60); Est Glom Filt Rate - Afr Amer 98 mL/min (>60); Estimated Creatinine Clearance 43.92 ml/min; Glucose 175 mg/dL (74-106); Potassium 4.1 mmol/L (3.5-5.1); Sodium Level 139 mmol/L (136-145)
[2018-04-23 06:24] LABS: Basophil 1 % (0-1); Eosinophil 2 % (0-5); Lymphocyte 15 % (19-41); Monocyte 6 % (0-10); Neutrophil-Segmented 76 % (47-70); Platelet Estimate ADEQUATE (ADEQ); Red Cell Morphology NORM C+C NORMAL (NORM C&C); Total Cells Counted 100 (MANUAL DIFF)
[2018-04-23 06:25] LABS: Absolute Lymphocyte Count 1.26 X10^3/ul (0.83-4.51); Absolute Neutrophil Count 6.4 X10^3/uL (2.0-7.7); Lymphocyte # 1.26 X10^3/ul (4.0); Neutrophil # 6.38 X10^3/uL (2.7-7.7); Pathologist Review May foll
[2018-04-23] MEDS: Insulin Lispro 100 UNIT/ML INSULN.PEN SQ ×4 (06:42→20:41)
[2018-04-23 06:46] LABS: Bedside Glucose 183 mg/dL (70-110)
[2018-04-23] MEDS: Aspirin E.C. 81 MG Tablet PO (09:20)
[2018-04-23] MEDS: Atenolol 50 MG Tablet PO (09:20)
[2018-04-23] MEDS: Magnesium Oxide 400 MG Tablet PO (09:20)
[2018-04-23] MEDS: Tolterodine Tartrate 2 MG CAP.SA PO (09:20)
[2018-04-23] MEDS: Ranolazine 500 MG Tablet PO ×2 (09:21→20:42)
[2018-04-23] MEDS: Amiodarone 200 MG Tablet PO (09:21)
[2018-04-23] MEDS: Pantoprazole Sodium 40 MG Tablet PO ×2 (09:21→20:42)
[2018-04-23] MEDS: Furosemide 20 MG Tablet PO (09:21)
[2018-04-23] MEDS: amLODIPine 10 MG Tablet PO (09:21)
[2018-04-23] MEDS: Loratadine 10 MG Tablet PO (09:21)
[2018-04-23] MEDS: Clopidogrel Bisulfate 75 MG Tablet PO (09:22)
--- NOTE | 2018-04-23 10:41 | PCM.CONS.GEN ---
Problem List (1) Hematuria Status: Resolved Reason for Consult Date of Consultation: 04/23/18 Reason for Consultation: gross hematuria History of Present Illness: The patient is a 68 year old F receiving anticoagulation secondary to cardiac condition and procedure. She developed gross hematuria on heparin anticoagulation and urology consultation was placed. The patient is a patient of the [facility] and has had gross hematuria in the past approximately 2 years ago. She had a full evaluation at that time revealing no evidence of etiology. She denies history of urinary tract infections in the past and does not have any dysuria, increase in urgency or frequency at this time. She does have a history of overactive bladder and this is being successfully treated with oxybutynin. She is engaged and understands the importance of follow-up after discharge in regards to her hematuria. Past Medical History Past Medical History (Chronic Problems): Chronic Problems HLD (hyperlipidemia) (Chronic) Moderate aortic stenosis (Chronic) Morbid obesity (Chronic) Paroxysmal atrial fibrillation with RVR (Chronic) H/O prosthetic aortic valve replacement (Chronic) 1994 CAD (coronary artery disease) (Chronic) Hx of CABG (Chronic) Type 2 diabetes mellitus (Chronic) Hypertension (Chronic) Chronic obstructive lung disease (Chronic) Allergies adhesive Allergy (Verified 04/18/18 02:03) Rash fluticasone propionate [From Advair Diskus] Allergy (Verified 04/18/18 02:03) chest pain gabapentin [From Neurontin] Allergy (Verified 04/18/18 02:03) Swelling of feet and legs salmeterol xinafoate [From Advair Diskus] Allergy (Verified 04/18/18 02:03) chest pains albuterol [From Ventolin HFA] Adverse Reaction (Verified 04/18/18 02:03) jittery TOO JITTERY cephalexin monohydrate [From Keflex] Adverse Reaction (Verified 04/18/18 02:03) abdominal cramping diltiazem [From Cardizem] Adverse Reaction (Verified 04/18/18 06:08) Other pregabalin Adverse Reaction (Verified 04/18/18 02:03) makes me slow to respond Home Medications: Ambulatory Orders Medication Instructions Recorded Aspirin [Aspirin EC] 81 mg PO DAILY 10/23/16 Furosemide [Lasix] 20 mg PO DAILY 10/23/16 Lansoprazole [Prevacid] 30 mg PO BID 07/02/17 Loratadine 10 mg PO DAILY 10/23/16 Losartan Potassium [Cozaar] 100 mg PO QHS 10/23/16 Metformin(XR) [Glucophage Xr] 1,000 mg PO BID 10/23/16 Polyethylene Glycol 3350 17 gm PO DAILY PRN 10/23/16 Warfarin [Coumadin] 6 mg PO SUMOWEFRSA 10/23/16 glipiZIDE [Glucotrol] 10 mg PO DAILY@0730 10/23/16 Atorvastatin Calcium [Lipitor] 20 mg PO QHS 03/26/18 Ferrous Sulfate 325 mg PO BIDCM 03/26/18 Meclizine HCl [Antivert] 25 mg PO TID PRN PRN 03/26/18 Mupirocin [Bactroban] 1 applicatio NASAL TID PRN 03/26/18 Nitroglycerin [Nitrostat] 0.4 mg SUBLINGUAL Q5M PRN 03/26/18 Nystatin 1 applicatio TP BID PRN 03/26/18 Oxybutynin Chloride [Ditropan Xl] 10 mg PO DAILY 03/26/18 Tizanidine HCl 4 mg PO QHS PRN 03/26/18 Warfarin Sodium 3 mg PO TUTH 03/26/18 Amlodipine [Norvasc] 10 mg PO DAILY #30 tablet 03/28/18 Atenolol [Tenormin (beta yi)] 50 mg PO DAILY #30 tablet 03/28/18 Isosorbide Mononitrate [Imdur] 120 mg PO DAILY #30 tablet 03/28/18 Amiodarone HCl [Cordarone] 200 mg PO DAILY #30 tablet 04/13/18 Linagliptin [Tradjenta] 5 mg PO DAILY #30 tablet 04/13/18 Magnesium Oxide [Mag-Ox 400] 400 mg PO DAILYCM #30 tablet 04/13/18 Potassium Chloride [K-Dur] 20 meq PO DAILYCM #30 tablet 04/13/18 busPIRone [Buspar] 5 mg PO TID #90 tablet 04/13/18 Albuterol IH (ProAir) [Proair Hfa 2 puff INHALATION Q4H PRN PRN 04/18/18 (SP)Vent Pts] Surgical History: - - aortic valve replacement 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: No pertinent psych hx OVEREDGER History: No pertinent OVEREDGER history Lives: With Family Smoking Status: Former smoker Tobacco Use: Cigarettes - *Family History Sibling History Items: Cancer - colorectal cancer in sister, Heart Disease Maternal History Items: Heart Disease, Hypertension Paternal History Items: Heart Disease, Hypertension Review of Systems Constitutional: Denies: Fever Eyes: Denies: Vision Change HEENT: Denies: Difficulty Hearing Gastrointestinal: Denies: Abdominal Pain Genitourinary: Reports: Hematuria. Denies: Dysuria, Frequency, Hesitancy - Please see HPI, she has known urgency and frequency with her overactive bladder. This is not increased., Urgency Patient Problems: Active and Suspected Problems Chest pain at rest (Acute) Chest pain (Acute) - Physical Exam General: Alert, Oriented x3, Cooperative, No apparent distress HEENT: Atraumatic, Normocephalic Oral: Moist Mucosa Neck: Supple, Trachea Midline Lungs: Normal air movement Cardiovascular: Regular rate Abdomen: Soft Extremities: Edema Musculoskeletal: No Muscle Wasting Neurological: Cranial nerves II-XII grossly intact, Neuro grossly intact Psych/Mental Status: Normal Affect Vital Signs Temp Pulse Resp BP Pulse Ox 98.5 F 67 18 127/63 H 95 04/23/18 02:48 04/23/18 04:04 04/23/18 02:48 04/23/18 02:48 04/23/18 02:48 Oxygen Flow Rate (L/min) 2 Oxygen Delivery Method Room Air Weight: 104.3 kg Body Mass Index (BMI) 41.1 Intake and Output for Last 24 Hours 04/21/18 04/22/18 04/23/18 23:59 23:59 23:59 Intake Total 1433.8 / 1433.8 2673.1 / 2673.1 695.2 / 695.2 Output Total 1850 / 1850 4275 / 4275 1175 / 1175 Balance -416.2 / -416.2 -1601.9 / -1601.9 -479.8 / -479.8 Laboratory Tests Past 24 Hrs 04/22/18 04/22/18 04/23/18 09:15 12:30 05:30 WBC 8.4 RBC 4.19 L Hgb 11.5 L Hct 35.4 L MCV 84.5 MCH 27.4 MCHC 32.5 RDW 16.5 H RDW Differential 48.7 H Plt Count 167 MPV 11.1 Neut % (Auto) Not Reportable Absolute Neuts (auto) 6.4 Absolute Lymphs (auto) 1.26 Total Counted 100 Neutrophils % (Manual) 76 H Lymphocytes % (Manual) 15 L Monocytes % (Manual) 6 Eosinophils % (Manual) 2 Basophils % (Manual) 1 Diff Path Review May foll Platelet Estimate ADEQUATE RBC Morphology NORM C+C PT 16.0 H INR 1.3 Sodium Potassium Chloride Carbon Dioxide Anion Gap BUN Creatinine Estim Creat Clear Calc Est GFR (MDRD) Af Amer Est GFR (MDRD) Non-Af BUN/Creatinine Ratio Glucose Calcium Urine Color Red Urine Clarity Cloudy Urine pH 8.0 Ur Specific [place] 1.010 Urine Protein 100 H Urine Glucose (UA) Normal Urine Ketones Negative Urine Occult Blood 250 H Urine Nitrite Positive H Urine Bilirubin Negative Urine Urobilinogen Normal Ur Leukocyte Esterase 100 H Urine RBC > 100 SEEN Urine WBC 10-25 SEEN Ur Squamous Epith Cells 0 SEEN Urine Bacteria 1+ Urine Mucus 0 SEEN 04/23/18 04/23/18 05:30 05:30 WBC RBC Hgb Hct MCV MCH MCHC RDW RDW Differential Plt Count MPV Neut % (Auto) Absolute Neuts (auto) Absolute Lymphs (auto) Total Counted Neutrophils % (Manual) Lymphocytes % (Manual) Monocytes % (Manual) Eosinophils % (Manual) Basophils % (Manual) Diff Path Review Platelet Estimate RBC Morphology PT 18.7 H INR 1.6 Sodium 139 Potassium 4.1 Chloride 103 Carbon Dioxide 26.0 Anion Gap 10 BUN 13 Creatinine 0.75 Estim Creat Clear Calc 43.92 Est GFR (MDRD) Af Amer 98 Est GFR (MDRD) Non-Af 81 BUN/Creatinine Ratio 17.3 Glucose 175 H Calcium 8.7 Urine Color Urine Clarity Urine pH Ur Specific [place] Urine Protein Urine Glucose (UA) Urine Ketones Urine Occult Blood Urine Nitrite Urine Bilirubin Urine Urobilinogen Ur Leukocyte Esterase Urine RBC Urine WBC Ur Squamous Epith Cells Urine Bacteria Urine Mucus POC Glucose 04/23/18 04/22/18 04/22/18 06:39 21:46 16:22 POC Glucose 183 H 200 H 237 H 04/22/18 11:44 POC Glucose 255 H Assessment/Plan All Active Problems Hematuria (Resolved) Chest pain at rest (Acute) Chest pain (Acute) Anxiety about health (Acute) Subtherapeutic international normalized ratio (INR) (Acute) Urine has cleared and aden is out. Urine for cytology. Await urine culture, treat with appropriate antibiotics. Will consider repeat cystoscopy as out patient. Renal imaging for hematuria. Can be done in few weeks as outpatient due to recent dye load. Ok to follow up with or with me in the office. Thank you for the consult.
[2018-04-23] MEDS: Ferrous Sulfate 325 MG Tablet PO ×2 (11:20→16:39)
[2018-04-23 11:40] LABS: Bedside Glucose 295 mg/dL (70-110)
--- NOTE | 2018-04-23 11:51 | PCM.PROGNOTE ---
Patient Problems: Active and Suspected Problems Chest pain at rest (Acute) Chest pain (Acute) Subjective: Patient is a 68-year-old female well-known to me from a previous admission in March 2018 when she was admitted for atrial fibrillation with rapid ventricular response and type II NSTEMI. Stress test earlier in the month was negative for ischemia. She presented to the emergency department at [facility] on 04/18/2018 complaining of chest pain with radiation into both sides of her neck. Cardiac catheterization revealed a 100% occlusion of the saphenous vein graft to the RCA and occlusion of a left circumflex saphenous vein graft. She was referred for PCI but the RCA was heavily calcified and could not be successfully dilated. The preprocedure stenosis was 95-100% and post procedure 80% stenosis. She was started on Ranexa. All events the past 24 hours of been reviewed. Afebrile since admission. Vital signs are stable. All lab was reviewed. White blood cell count is within normal limits and the hemoglobin is 11.5 and stable. INR is 1.6 today. Electrolytes are within normal limits and the BUN is 13 with a creatinine of 0.75. UA on 04/22/2018 showed greater than 100 RBCs per high-power field and 10-25 WBCs. Urine today is clear and yellow. Echo biology: Urine obtained on a clean-catch from this 68-year-old obese female was presumptive for E. coli however she has a normal white blood cell count and is afebrile so I suspect this may be a contaminant. A repeat urine was obtained today via straight cath and culture is pending. He has been ambulating in the halls and denies any chest pain. Telemetry shows normal sinus rhythm with no atrial fibrillation. I did review Dr. Lei's progress note from today and Dr. Orellana's consultation. Objective: PHYSICAL EXAM: GENERAL: alert, oriented X 3, Cooperative, NAD ORAL: moist mucosa, no mucosal lesions NECK: No JVD, supple, trachea midline LUNGS: CTA, symmetric chest expansion, no conversational dyspnea, not tachypneic, no accessory muscle use HEART: RRR, Normal S1 and S2, no rub, no gallop, she has a mechanical valve click at the second RICS ABDOMEN: soft, NT, ND, BS present, no guarding with palpation, obese EXTREMITIES: no edema, no cyanosis, no calf tenderness SKIN: No rashes, no breakdown NEUROLOGIC: no focal neurologic deficits PSYCH: appropriate, normal affect, pleasant - Physical Exam Vital Signs Temp Pulse Resp BP Pulse Ox 97.7 F L 64 16 150/47 H 95 04/23/18 09:15 04/23/18 09:15 04/23/18 09:15 04/23/18 09:15 04/23/18 09:15 Oxygen Flow Rate (L/min) 2 Oxygen Delivery Method Room Air Weight: 229 lb 15.074 oz Body Mass Index (BMI) 41.1 Intake and Output for Last 24 Hours 04/21/18 04/22/18 04/23/18 23:59 23:59 23:59 Intake Total 1433.8 / 1433.8 2673.1 / 2673.1 1549.2 / 1549.2 Output Total 1850 / 1850 4275 / 4275 1875 / 1875 Balance -416.2 / -416.2 -1601.9 / -1601.9 -325.8 / -325.8 Microbiology Past 72 Hours 04/22/18 09:15 Urine Culture - Preliminary Urine, Clean Catch Presumptive E. coli Laboratory Tests Past 24 Hrs 04/22/18 04/23/18 04/23/18 12:30 05:30 05:30 WBC 8.4 RBC 4.19 L Hgb 11.5 L Hct 35.4 L MCV 84.5 MCH 27.4 MCHC 32.5 RDW 16.5 H RDW Differential 48.7 H Plt Count 167 MPV 11.1 Neut % (Auto) Not Reportable Absolute Neuts (auto) 6.4 Absolute Lymphs (auto) 1.26 Total Counted 100 Neutrophils % (Manual) 76 H Lymphocytes % (Manual) 15 L Monocytes % (Manual) 6 Eosinophils % (Manual) 2 Basophils % (Manual) 1 Diff Path Review May foll Platelet Estimate ADEQUATE RBC Morphology NORM C+C PT 16.0 H 18.7 H INR 1.3 1.6 Sodium Potassium Chloride Carbon Dioxide Anion Gap BUN Creatinine Estim Creat Clear Calc Est GFR (MDRD) Af Amer Est GFR (MDRD) Non-Af BUN/Creatinine Ratio Glucose Calcium 04/23/18 05:30 WBC RBC Hgb Hct MCV MCH MCHC RDW RDW Differential Plt Count MPV Neut % (Auto) Absolute Neuts (auto) Absolute Lymphs (auto) Total Counted Neutrophils % (Manual) Lymphocytes % (Manual) Monocytes % (Manual) Eosinophils % (Manual) Basophils % (Manual) Diff Path Review Platelet Estimate RBC Morphology PT INR Sodium 139 Potassium 4.1 Chloride 103 Carbon Dioxide 26.0 Anion Gap 10 BUN 13 Creatinine 0.75 Estim Creat Clear Calc 43.92 Est GFR (MDRD) Af Amer 98 Est GFR (MDRD) Non-Af 81 BUN/Creatinine Ratio 17.3 Glucose 175 H Calcium 8.7 POC Glucose 04/23/18 04/23/18 04/22/18 11:17 06:39 21:46 POC Glucose 295 H 183 H 200 H 04/22/18 04/22/18 16:22 11:44 POC Glucose 237 H 255 H Medical Necessity - Tobacco Use Smoking Status: Former smoker Tobacco Use: Cigarettes Assessment/Plan All Active Problems Hematuria (Resolved) Chest pain at rest (Acute) Chest pain (Acute) Anxiety about health (Acute) Subtherapeutic international normalized ratio (INR) (Acute) Impressions 1. Hematuria 2. UTI versus contaminated urine with E. Coli on the culture but no fever and normal WBC 3. Recent history of paroxysmal atrial fibrillation with rapid ventricular response 4. Coronary artery disease 5. Unstable angina/acute coronary syndrome-status post cardiac cath revealing occlusion of the circumflex and RCA. PTCA was attempted on the RCA however the artery is heavily calcified and the intervention was not successful 6. History of aortic stenosis with aortic valve replacement -mechanical valve 7. Chronic anticoagulation with warfarin 8. Uncontrolled diabetes mellitus-was discharged on Tradjenta on her last admission but somehow this got discontinued so will reorder 9. Anxiety-controlled with BuSpar 5 mg 3 times daily 10 mg of Coumadin today-recheck PT/INR in a.m. Hold discharge until she is therapeutic on warfarin Encouraged her to continue ambulating in the halls Continue Adamexa Appreciate Dr. Lei's participation in management Code Visit Inpatient E&M: 55083 Subs Hosp L2
[2018-04-23] MEDS: Magnesium Hydroxide 30 ML UDC PO (13:59)
--- NOTE | 2018-04-23 14:00 | CYSPIN_PTH ---
PATIENT: KYLIE CASE LOC: MS2 U#:[id number] AGE/SX: 68/F ROOM: [facility] [place] RE04/20/[address]: Dr. Amy Mcconnell DO : 1950 BED: 1 DIS: 04/25/2018 SPEC #: [id number] RECD: 04/25/18 08:58 STATUS: NIK REQ #: [id number] AJIT: 04/23/18 14:[address]: Amy Mcconnell DEPT: CYTOLOGY RECD BY: Manuel Barros ENTERED: 04/25/18 08:58 SP TYPE: CYSPIN FL OTHR DR: MD Dr. Jasmina Cronin MD Dr. Joseph Agyepong, MD Dr. Paul Moodispaw, MD Tissues: Urine Procedures: Pap Stain (control) Special Stain Group II Cytospin Fluid HEADER OPERATION: Not noted PRE-OP DIAGNOSIS: Gross hematuria TISSUE SUBMITTED: Urine for cytology DIAGNOSIS CYTOLOGY Urine for cytology (cytospin): Negative for malignant cells. Acute inflammation and bacterial colonies. AM:matthew 04/26/18 CYTOLOGY STUDY Slides are reviewed. CYTOLOGY GROSS Received is 7.5 ml of clear yellow fluid labeled with the patient's name and and designated per the requisition as urine. Submitted for cytology preparation. 04/25/18 TC:2 CPT: 18034
[2018-04-23 14:19] LABS: Cytology, Body Fluid / CSF SEE PATHOLOGY REPORT
[2018-04-23 16:50] LABS: Bedside Glucose 238 mg/dL (70-110)
--- NOTE | 2018-04-23 16:58 | PN.CARD_ITS ---
Subjectve: The patient is without acute symptoms and/or change. Objective: Vital Signs Temp Pulse Resp BP Pulse Ox 98.1 F 61 16 140/49 H 94 04/23/18 13:50 04/23/18 15:59 04/23/18 13:50 04/23/18 13:50 04/23/18 13:50 Oxygen Flow Rate (L/min) 2 Oxygen Delivery Method Room Air Weight: 229 lb 15.074 oz Body Mass Index (BMI) 41.1 Intake and Output for Last 24 Hours 04/21/18 04/22/18 04/23/18 23:59 23:59 23:59 Intake Total 1433.8 / 1433.8 2673.1 / 2673.1 1549.2 / 1549.2 Output Total 1850 / 1850 4275 / 4275 1875 / 1875 Balance -416.2 / -416.2 -1601.9 / -1601.9 -325.8 / -325.8 General: Awake, Alert, Oriented x 3, Cooperative, No Acute Distress, Obese HEENT: Atraumatic, Normocephalic, PERRL, EOMI, Sclera Non Icteric Oral: Moist Mucosa Neck: Supple, Good ROM, No JVD Lungs: Clear to auscultation Cardiovascular: Regular Rhythm, Normal S1, [place] Prosthetic S2 Abdomen: Bowel Sounds Present, Soft, Non Tender Extremities: Trace RLE Edema, Trace LLE Edema Neurological: No Focal Motor or Sensory Deficit Psych/Mental Status: Appropriate 04/23/18 05:30: WBC 8.4, RBC 4.19 L, Hgb 11.5 L, Hct 35.4 L, MCV 84.5, MCH 27.4, MCHC 32.5, RDW 16.5 H, RDW Differential 48.7 H, Plt Count 167, MPV 11.1, Neut % (Auto) Not Reportable, Absolute Neuts (auto) 6.4, Total Counted 100, Neutrophils % (Manual) 76 H, Lymphocytes % (Manual) 15 L, Monocytes % (Manual) 6, Eosinophils % (Manual) 2, Basophils % (Manual) 1 04/23/18 05:30: PT 18.7 H, INR 1.6 04/23/18 05:30: Sodium 139, Potassium 4.1, Chloride 103, Carbon Dioxide 26.0, Anion Gap 10, BUN 13, Creatinine 0.75, Est GFR (MDRD) Af Amer 98, Est GFR (MDRD) Non-Af 81, BUN/Creatinine Ratio 17.3, Glucose 175 H, Calcium 8.7 Rhythm: Sinus rhythm Medical Necessity - Tobacco Use Smoking Status: Former smoker Tobacco Use: Cigarettes Assessment/Plan 1. CAD status post CABG-remote The patient has a history of CAD status post remote CABG. The patient states that this was remote at [facility] in [facility]. The patient is now status post diagnostic cardiac catheterization. She was found to have multivessel coronary artery disease. Her SHELBY graft to the LAD was patent. Her SVG graft to the LCx was occluded. Her SVG graft to the RCA was occluded. Her case was reviewed with Dr. Shaw of [facility]. The consensus was to proceed with an attempt at RCA proximal PTCA/stent to assist a moderate to large sized long unprotected acute marginal branch. This was attempted. A PTCA was performed. However successful stent placement was unable to be performed secondary to concerns of underlying calcification. The patient has been placed on additional medical therapy with Ranexa. If despite multiple medications she continues to have symptoms concerning for angina pectoris then she would need to be referred to a tertiary care center for consideration for high risk cardiac catheterization/PCI due to her [place] vessel calcification. 2. Status post aortic valve replacement The patient is mechanical prosthetic valve was evaluated under fluoroscopy this day. It appears to be a bileaflet valve. The leaflets appear to be opening and closing appropriately. The patient has been through anticoagulation bridging in the past. He notes that she did have an attempt at subcutaneous Lovenox in the past. She states it was extremely painful to her. At the present time she will continue in the hospital post her cardiac catheterization/PTCA procedure-no stent with IV heparin pending her oral anticoagulant therapy becoming therapeutic with respect to her INR levels which have increased to 1.6. Her, this is still subtherapeutic, thus she will continue with her IV heparin until her warfarin/Coumadin/INR levels become therapeutic. In the interim she should continue AHA antibiotic prophylaxis. 3. Paroxysmal atrial fibrillation At the present time she remains in sinus rhythm. She will continue a combination of rate control therapy, antiarrhythmic therapy, and anticoagulant therapy as deemed appropriate. 4. Bradycardia Apparently there is been concerns in the past that she has developed episodes of bradycardia especially post return to sinus rhythm. Thus her medications have been adjusted in the past. At the moment her rate and rhythm. Be stable. She will continue to be followed. 5. Hyperlipidemia She will continue medical management. 6. Hypertension Her blood pressure can be followed. Her medications can be adjusted as needed. 7. Diabetes The patient will need to continue on her care of internal medicine for her diabetes. 8. COPD The patient does have a history of COPD. This can contribute to her shortness of breath and dyspnea. This could also potentially contribute to concerns of her atrial dysrhythmia. She will need continue evaluation care per internal medicine and pulmonology as deemed appropriate. 9. Obesity The patient remains overweight. Again this could contribute to her shortness of breath and dyspnea as well. He has been counseled on dietary adjustment and exercise as best as possible and attempt to bring her weight under better control. Comment: The above was discussed and reviewed with the patient and Dr. Mcconnell. This note was generated using a voice recognition system and there may be incorrect words, spelling or punctuation that were not noted when reviewing the office note prior to saving.
[2018-04-23] MEDS: Losartan Potassium 100 MG Tablet PO (20:40)
[2018-04-23] MEDS: Atorvastatin Calcium 20 MG Tablet PO (20:42)
[2018-04-23 20:50] LABS: Bedside Glucose 200 mg/dL (70-110)
[2018-04-24] VITALS (8 sets, daily range): BP systolic 124–135; BP diastolic 43–52; PULSE 60–64; RESP 16–18; TEMP 36.6–36.7; O2SAT 99
[2018-04-24 01:16] LABS: Bedside Glucose 252 mg/dL (70-110)
--- NOTE | 2018-04-24 01:37 | EKG12_ITS ---
Test Reason : CP Blood Pressure : / mmHG Vent. Rate : 067 BPM Atrial Rate : 067 BPM P-R Int : 182 ms QRS Dur : 116 ms QT Int : 442 ms P-R-T Axes : 047 075 029 degrees QTc Int : 467 ms Normal sinus rhythm Incomplete left bundle branch block Borderline ECG When compared with ECG of 20-APR-2018 13:57, MANUAL COMPARISON REQUIRED, DATA IS UNCONFIRMED Confirmed by ROSALBA ONEAL, GREG ([id number]), editor city SOUMYA BARTH ([id number]) on 05/07/2018 10:31:24 AM Referred By: DR MCLAUGHLIN Confirmed By:GREG NAVARRETE MD
--- NOTE | 2018-04-24 01:45 | NURSING ---
called to room by ENVIRONMENTAL PROTECTION ECONOMIST d/t patient c/o chest pressure. Patient states intense midsternal chest pressure and heaviness. VS 98, 75, 26, 190/70, 95% on R/A. Placed on 2L NC. Call for EKG. EGK completed. Pt states decrease in chest pressure after 4 minutes. VS 97.8, 68, 18, 134/51, 100% on 2L. Dr. Sheikh notified. Troponin series ordered.
[2018-04-24 05:27] LABS: International Normalized Ratio 1.9; Prothrombin Time (Protime)PT. 21.6 SECONDS (11.7-14.9)
[2018-04-24] MEDS: busPIRone 5 MG Tablet PO ×3 (06:26→22:04)
[2018-04-24] MEDS: Insulin Lispro 100 UNIT/ML INSULN.PEN SQ ×4 (06:28→22:03)
[2018-04-24 06:36] LABS: Bedside Glucose 211 mg/dL (70-110)
--- NOTE | 2018-04-24 08:42 | PCM.PROGNOTE ---
Subjective: All events the past 24 hours of been reviewed. She remains afebrile with stable vital signs. Pulse ox on room air is 99%. INR is 1.9 today Fasting blood sugar is 211 today and she was restarted on Tradjenta just yesterday. Urine culture is pending. Initial urine culture grew E. coli however the patient has been afebrile with a normal white blood cell count and unremarkable differential. She denies dysuria. A urine culture was sent from a straight cath yesterday. Objective: GENERAL: alert, oriented X 3, Cooperative, NAD ORAL: moist mucosa, no mucosal lesions NECK: No JVD, supple, trachea midline LUNGS: CTA, symmetric chest expansion, no conversational dyspnea, not tachypneic, no accessory muscle use HEART: RRR, Normal S1 and S2, no rub, no gallop, she has a mechanical valve click at the second RICS ABDOMEN: soft, NT, ND, BS present, no guarding with palpation, obese EXTREMITIES: no edema, no cyanosis, no calf tenderness SKIN: No rashes, no breakdown NEUROLOGIC: no focal neurologic deficits PSYCH: appropriate, normal affect, pleasant - Physical Exam Vital Signs Temp Pulse Resp BP Pulse Ox 98 F 60 16 124/43 H 99 04/24/18 02:07 04/24/18 04:07 04/24/18 02:07 04/24/18 02:07 04/24/18 02:07 Oxygen Flow Rate (L/min) 2 Oxygen Delivery Method Room Air Weight: 229 lb 15.074 oz Body Mass Index (BMI) 41.1 Intake and Output for Last 24 Hours 04/22/18 04/23/18 04/24/18 23:59 23:59 23:59 Intake Total 2673.1 / 2673.1 2149.2 / 2149.2 250 / 250 Output Total 4275 / 4275 2275 / 2275 1500 / 1500 Balance -1601.9 / -1601.9 -125.8 / -125.8 -1250 / -1250 Microbiology Past 72 Hours 04/22/18 09:15 Urine Culture - Final Urine, Clean Catch Presumptive E. coli Laboratory Tests Past 24 Hrs 04/23/18 04/24/18 04/24/18 14:00 01:38 04:30 PT 21.6 H INR 1.9 Troponin I < 0.015 Miscellaneous Cytology Pending 04/24/18 04/24/18 04:30 07:50 PT INR Troponin I < 0.015 < 0.015 Miscellaneous Cytology POC Glucose 04/24/18 04/24/18 04/23/18 06:26 01:05 20:38 POC Glucose 211 H 252 H 200 H 04/23/18 04/23/18 16:37 11:17 POC Glucose 238 H 295 H Medical Necessity - Tobacco Use Smoking Status: Former smoker Tobacco Use: Cigarettes Assessment/Plan All Active Problems S/P coronary angioplasty (Resolved ~04/20/18) Hematuria (Resolved) Chest pain at rest (Acute) Chest pain (Acute) Anxiety about health (Acute) Subtherapeutic international normalized ratio (INR) (Acute) Impressions 1. Hematuria 2. UTI versus contaminated urine with E. Coli on the culture but no fever and normal WBC 3. Recent history of paroxysmal atrial fibrillation with rapid ventricular response 4. Coronary artery disease 5. Unstable angina/acute coronary syndrome-status post cardiac cath revealing occlusion of the circumflex and RCA. PTCA was attempted on the RCA however the artery is heavily calcified and the intervention was not successful 6. History of aortic stenosis with aortic valve replacement -mechanical valve 7. Chronic anticoagulation with warfarin 8. Uncontrolled diabetes mellitus-was discharged on Tradjenta on her last admission but somehow this got discontinued so will reorder 9. Anxiety-controlled with BuSpar 5 mg 3 times daily 10 mg of Coumadin today-recheck PT/INR in a.m. Hold discharge until she is therapeutic on warfarin Encouraged her to continue ambulating in the halls Continue [place] Appreciate Dr. Lei's participation in management Code Visit Inpatient E&M: 49403 Subs Hosp L2
[2018-04-24] MEDS: Pantoprazole Sodium 40 MG Tablet PO ×2 (09:45→22:04)
[2018-04-24] MEDS: Atenolol 50 MG Tablet PO (09:45)
[2018-04-24] MEDS: Tolterodine Tartrate 2 MG CAP.SA PO (09:45)
[2018-04-24] MEDS: LINAGLIPTIN 5 MG TABLET PO (09:45)
[2018-04-24] MEDS: Ranolazine 500 MG Tablet PO ×2 (09:45→22:04)
[2018-04-24] MEDS: Loratadine 10 MG Tablet PO (09:45)
[2018-04-24] MEDS: Magnesium Oxide 400 MG Tablet PO (09:45)
[2018-04-24] MEDS: amLODIPine 10 MG Tablet PO (09:45)
[2018-04-24] MEDS: Amiodarone 200 MG Tablet PO (09:46)
[2018-04-24] MEDS: Aspirin E.C. 81 MG Tablet PO (09:46)
[2018-04-24] MEDS: Furosemide 20 MG Tablet PO (09:46)
[2018-04-24] MEDS: Clopidogrel Bisulfate 75 MG Tablet PO (09:52)
--- NOTE | 2018-04-24 11:44 | PN.CARD_ITS ---
Subjectve: has been up and ambulating today. She has no new acute symptoms or concerns today. Objective: Vital Signs Temp Pulse Resp BP Pulse Ox 98.0 F 62 18 135/52 H 99 04/24/18 09:53 04/24/18 09:53 04/24/18 09:53 04/24/18 09:53 04/24/18 09:53 Oxygen Flow Rate (L/min) 2 Oxygen Delivery Method Room Air Weight: 229 lb 15.074 oz Body Mass Index (BMI) 41.1 Intake and Output for Last 24 Hours 04/22/18 04/23/18 04/24/18 23:59 23:59 23:59 Intake Total 2673.1 / 2673.1 2149.2 / 2149.2 250 / 250 Output Total 4275 / 4275 2275 / 2275 1500 / 1500 Balance -1601.9 / -1601.9 -125.8 / -125.8 -1250 / -1250 General: Awake, Alert, Oriented x 3, Cooperative, No Acute Distress HEENT: Atraumatic, Normocephalic, PERRL, EOMI, Sclera Non Icteric Oral: Moist Mucosa Neck: Supple, Good ROM, No JVD Lungs: Clear to auscultation Cardiovascular: Regular Rhythm, Normal S1, Bib[place] Prosthetic S2 Abdomen: Bowel Sounds Present, Soft, Non Tender, Obese Extremities: No edema Psych/Mental Status: Appropriate 04/24/18 01:38: Troponin I < 0.015 04/24/18 04:30: PT 21.6 H, INR 1.9 04/24/18 04:30: Troponin I < 0.015 04/24/18 07:50: Troponin I < 0.015 Rhythm: Sinus rhythm Medical Necessity - Tobacco Use Smoking Status: Former smoker Tobacco Use: Cigarettes Assessment/Plan 1. CAD status post CABG-remote The patient has a history of CAD status post remote CABG. The patient states that this was remote at [facility] in [facility]. The patient is now status post diagnostic cardiac catheterization. She was found to have multivessel coronary artery disease. Her SHELBY graft to the LAD was patent. Her SVG graft to the LCx was occluded. Her SVG graft to the RCA was occluded. Her case was reviewed with Dr. Shaw of [facility]. The consensus was to proceed with an attempt at RCA proximal PTCA/stent to assist a moderate to large sized long unprotected acute marginal branch. This was attempted. A PTCA was performed. However successful stent placement was unable to be performed secondary to concerns of underlying calcification. The patient has been placed on additional medical therapy with Ranexa. If despite multiple medications she continues to have symptoms concerning for angina pectoris then she would need to be referred to a tertiary care center for consideration for high risk cardiac catheterization/PCI due to her [place] vessel calcification. 2. Status post aortic valve replacement The patient is mechanical prosthetic valve was evaluated under fluoroscopy this day. It appears to be a bileaflet valve. The leaflets appear to be opening and closing appropriately. The patient has been through anticoagulation bridging in the past. He notes that she did have an attempt at subcutaneous Lovenox in the past. She states it was extremely painful to her. At the present time she will continue in the hospital post her cardiac catheterization/PTCA procedure-no stent with IV heparin pending her oral anticoagulant therapy becoming therapeutic with respect to her INR levels which have increased to 1.9. Her INR will be rechecked again later today. If she has increasing INR then perhaps she will be to be released home later today for continued outpatient follow-up. In the interim she should continue AHA antibiotic prophylaxis. 3. Paroxysmal atrial fibrillation At the present time she remains in sinus rhythm. She will continue a combina tion of rate control therapy, antiarrhythmic therapy, and anticoagulant therapy as deemed appropriate. 4. Bradycardia Apparently there is been concerns in the past that she has developed episodes of bradycardia especially post return to sinus rhythm. Thus her medications have been adjusted in the past. At the moment her rate and rhythm appear to be stable. 5. Hyperlipidemia She will continue medical management. 6. Hypertension Her blood pressure can be followed. Her medications can be adjusted as needed. 7. Diabetes The patient will need to continue on her care of internal medicine for her diabetes. 8. COPD The patient does have a history of COPD. This can contribute to her shortness of breath and dyspnea. This could also potentially contribute to concerns of her atrial dysrhythmia. She will need continue evaluation care per internal medicine and pulmonology as deemed appropriate. 9. Obesity The patient remains overweight. Again this could contribute to her shortness of breath and dyspnea as well. He has been counseled on dietary adjustment and exercise as best as possible and attempt to bring her weight under better control. 10. Anxiety The patient did have what was reported to be a panic attack yesterday evening. She has been evaluated by internal medicine. Her anxiolytic therapy is being adjusted. Comment: The above was discussed and reviewed with the patient and Dr. Mcconnell. This note was generated using a voice recognition system and there may be incorrect words, spelling or punctuation that were not noted when reviewing the office note prior to saving.
[2018-04-24] MEDS: Ferrous Sulfate 325 MG Tablet PO ×2 (11:55→15:43)
[2018-04-24 12:07] LABS: Bedside Glucose 262 mg/dL (70-110)
[2018-04-24 12:11] LABS: International Normalized Ratio 1.8; Prothrombin Time (Protime)PT. 20.9 SECONDS (11.7-14.9)
[2018-04-24 15:52] LABS: Bedside Glucose 267 mg/dL (70-110)
[2018-04-24] MEDS: Losartan Potassium 100 MG Tablet PO (22:04)
[2018-04-24] MEDS: Atorvastatin Calcium 20 MG Tablet PO (22:04)
[2018-04-24 22:55] LABS: Bedside Glucose 208 mg/dL (70-110)
[2018-04-25 02:44] VITALS: BP 119/45; PULSE 61; RESP 16; TEMP 36.7; O2SAT 96
[2018-04-25 02:52] VITALS: PULSE 58
[2018-04-25 05:48] LABS: International Normalized Ratio 2.2; Prothrombin Time (Protime)PT. 24.3 SECONDS (11.7-14.9)
[2018-04-25] MEDS: busPIRone 5 MG Tablet PO ×2 (06:01→13:09)
[2018-04-25] MEDS: Insulin Lispro 100 UNIT/ML INSULN.PEN SQ ×2 (06:31→11:11)
[2018-04-25 06:40] LABS: Bedside Glucose 194 mg/dL (70-110)
[2018-04-25 07:23] VITALS: PULSE 62
[2018-04-25 08:16] VITALS: BP 132/56; PULSE 65; RESP 18; TEMP 36.6; O2SAT 95
[2018-04-25] MEDS: Pantoprazole Sodium 40 MG Tablet PO (08:17)
[2018-04-25] MEDS: Loratadine 10 MG Tablet PO (08:17)
[2018-04-25] MEDS: Furosemide 20 MG Tablet PO (08:18)
[2018-04-25] MEDS: Tolterodine Tartrate 2 MG CAP.SA PO (08:18)
[2018-04-25] MEDS: Atenolol 50 MG Tablet PO (08:18)
[2018-04-25] MEDS: amLODIPine 10 MG Tablet PO (08:18)
[2018-04-25] MEDS: Aspirin E.C. 81 MG Tablet PO (08:18)
[2018-04-25] MEDS: Magnesium Oxide 400 MG Tablet PO (08:18)
[2018-04-25] MEDS: Ranolazine 500 MG Tablet PO (08:19)
[2018-04-25] MEDS: Clopidogrel Bisulfate 75 MG Tablet PO (08:19)
[2018-04-25] MEDS: Amiodarone 200 MG Tablet PO (08:19)
[2018-04-25] MEDS: LINAGLIPTIN 5 MG TABLET PO (08:19)
[2018-04-25] MEDS: Ferrous Sulfate 325 MG Tablet PO (11:11)
[2018-04-25 11:17] VITALS: PULSE 69
[2018-04-25 11:26] LABS: Bedside Glucose 250 mg/dL (70-110)
--- NOTE | 2018-04-25 14:15 | DCINST_ITS ---
- Discharge Diagnoses Current Active Problems: Current Active and Chronic Problems Chest pain at rest (Acute) Chest pain (Acute) HLD (hyperlipidemia) (Chronic) You will use the following diet at home:: Calorie/Carbohydrate Controlled (specify 1200, 1400, etc), Cardiac Your food should be the consistency of: Regular Your liquids should be the consistency of: Regular/Thin Discharge Activity: Return to Normal Activity Call your doctor if you observe: Fever of 101 or Higher, Shortness of breath, Dizziness, Fainting spells, Swelling in the ankles, Chest pain, Calf discomfort, - - palpitations Instructions: Your Body's Response to Anxiety, Understanding Panic Disorder (Panic Attack) Additional Instructions: I have given you a prescription for a medication called Alprazolam (Xanax). this medication is to be used for a panic attack........when you get anxious and feel like the breath will not go the whole way down and you get tingling in your fingers and around your mouth and when your hair stands on end and you feel like you are going to . Allergies/Adverse Reactions: Allergies adhesive Allergy (Verified 04/18/18 02:03) Rash fluticasone propionate [From Advair Diskus] Allergy (Verified 04/18/18 02:03) chest pain gabapentin [From Neurontin] Allergy (Verified 04/18/18 02:03) Swelling of feet and legs salmeterol xinafoate [From Advair Diskus] Allergy (Verified 04/18/18 02:03) chest pains albuterol [From Ventolin HFA] Adverse Reaction (Verified 04/18/18 02:03) jittery TOO JITTERY cephalexin monohydrate [From Keflex] Adverse Reaction (Verified 04/18/18 02:03) abdominal cramping diltiazem [From Cardizem] Adverse Reaction (Verified 04/18/18 06:08) Other pregabalin Adverse Reaction (Verified 04/18/18 02:03) makes me slow to respond Medications to take at Discharge Aspirin [Aspirin EC] 81 mg PO DAILY 10/23/16 Furosemide [Lasix] 20 mg PO DAILY 10/23/16 Lansoprazole [Prevacid] 30 mg PO BID 10/23/16 Loratadine 10 mg PO DAILY 10/23/16 Losartan Potassium [Cozaar] 100 mg PO QHS 10/23/16 Metformin(XR) [Glucophage Xr] 1,000 mg PO BID 10/23/16 Polyethylene Glycol 3350 17 gm PO DAILY PRN 10/23/16 Warfarin [Coumadin] 6 mg PO SUMOWEFRSA 10/23/16 glipiZIDE [Glucotrol] 10 mg PO DAILY@0730 10/23/16 Atorvastatin Calcium [Lipitor] 20 mg PO QHS 03/26/18 Ferrous Sulfate 325 mg PO BIDCM 03/26/18 Meclizine HCl [Antivert] 25 mg PO TID PRN PRN 03/26/18 Mupirocin [Bactroban] 1 applicatio NASAL TID PRN 03/26/18 Nitroglycerin [Nitrostat] 0.4 mg SUBLINGUAL Q5M PRN 03/26/18 Nystatin 1 applicatio TP BID PRN 03/26/18 Oxybutynin Chloride [Ditropan Xl] 10 mg PO DAILY 03/26/18 Tizanidine HCl 4 mg PO QHS PRN 03/26/18 Warfarin Sodium 3 mg PO TUTH 03/26/18 Amlodipine [Norvasc] 10 mg PO DAILY #30 tablet 03/28/18 Atenolol [Tenormin (beta yi)] 50 mg PO DAILY #30 tablet 03/28/18 Isosorbide Mononitrate [Imdur] 120 mg PO DAILY #30 tablet 03/28/18 Amiodarone HCl [Cordarone] 200 mg PO DAILY #30 tablet 04/13/18 Linagliptin [Tradjenta] 5 mg PO DAILY #30 tablet 04/13/18 Magnesium Oxide [Mag-Ox 400] 400 mg PO DAILYCM #30 tablet 04/13/18 Potassium Chloride [K-Dur] 20 meq PO DAILYCM #30 tablet 04/13/18 busPIRone [Buspar] 5 mg PO TID #90 tablet 04/13/18 Albuterol IH (ProAir) [Proair Hfa] 2 puff INHALATION Q4H PRN PRN 04/18/18 Amoxicillin [Amoxil] 500 mg PO Q8H #30 capsule 04/25/18 Ranolazine [Ranexa] 500 mg PO BID #60 tablet 04/25/18 The following prescriptions were given: Amoxicillin [Amoxil] 500 mg PO Q8H #30 capsule Ranolazine [Ranexa] 500 mg PO BID #60 tablet Primary Care Physician: Collin Gamez MD [Primary Care Provider] - Please follow up with your Primary Care Physician in: 1-2 weeks Test Results: Test results from this visit will be discussed in further detail at your follow- up appointment, if applicable. Please Follow Up With: Puneet Lei MD When: 2-3 weeks Please Follow Up With: Jasmina Mahajan MD When: as needed Proposed Discharge Date: 04/25/18
--- NOTE | 2018-04-25 14:24 | PCM.DC.SUM ---
Discharge Date and Diagnosis - Problem List Patient Problems: Active and Suspected Problems Chest pain at rest (Acute) Chest pain (Acute) Date of Admission: 04/18/18 Date of Discharge: 04/25/18 - Primary Discharge Diagnosis Active and Suspected Problems unstable angina/ACS Hematuria Cystitis due to E. Coli - Secondary Discharge Diagnosis Chronic Problems HLD (hyperlipidemia) (Chronic) Moderate aortic stenosis (Chronic) Morbid obesity (Chronic) Paroxysmal atrial fibrillation with RVR (Chronic) H/O prosthetic aortic valve replacement (Chronic) 1994 CAD (coronary artery disease) (Chronic) Hx of CABG (Chronic) Type 2 diabetes mellitus (Chronic) Hypertension (Chronic) Chronic obstructive lung disease (Chronic) Hospital Course and Treatment Imaging Results: Clinical Impression(s) from Imaging Studies Chest X-Ray 04/18/18 02:50 IMPRESSION: Postoperative changes and mild cardiomegaly without evidence of acute cardiopulmonary disease. Electronically Signed: Brittany Newman MD at 3:12 EST , Service support , Dr. Jasmina Mahajan -urology Dr. Puneet Lei-[facility] Operations: None Procedures: Cardiac catheterization - [place] multivessel coronary artery disease, SHELBY to LAD patent, SVG to LCx occluded, SVG to RCA occluded, aortic valve: Mechanical bileaflet opening and closing appropriately. Attempt was made to PTCA the RCA but the vessel was too heavily calcified and the procedure was not successful Summary of Care Provided: Mrs Pablo is a 68 YO female with a PMH of DM II, CAD with hx of CABG, mechanical AVR,COPD, HTN, paroxysmal atrial fibrillation, chronic anticoagulation with warfarin, anxiety and obesity who presented to the emergency department at [facility] on 04/18/2018 complaining of chest pain radiating into both sides of her neck. It was a associated with shortness of breath and diaphoresis. Earlier in the month she had a stress test that was negative for ischemia. She has had 2 recent admissions for paroxysmal atrial fibrillation with rapid ventricular response. He was admitted to a monitored bed and serial cardiac enzymes were ordered. Troponin x3 was less than 0.015. She was seen in consultation by Dr. Puneet Lei who felt that since this was her third admission in less than 30 days for chest pain that she should have a cardiac catheterization. The patient was agreeable. Cardiac catheterization was done on 04/20/2018 and revealed a 100% occlusion of the saphenous vein graft to the RCA, occluded left circumflex saphenous vein graft and a patent SHELBY to the LAD. The AV was a bileaflet valve which opened and closed appropriately. She was referred for PCI but the RCA was heavily calcified and could not be successfully dilated. The preprocedure stenosis was 95-100% and post procedure the RCA had a 80% stenosis. She was started on Ranexa. The INR at admission was 4 and she had gross hematuria. Warfarin was held and she was started on a Heparin drip when the INR dropped below 2. she was seen in consult by Dr. Mahajan from urology. The urine cleared and the aden was removed. The patient is going to follow up with Dr. Mahajan in the office for renal imaging for hematuria and possible cystoscopy. Warfarin was restarted and a heparin infusion was used to bridge. She had no further hematuria. She began c/o urinary frequency and a straight cath was done and the urine was sent for culture which grew a saunders-sensitive E. Coli. She was started on Amoxil 500 mg TID. She was discharged home on 04/25/18. She will be continued on Buspar which has significantly improved her anxiety and she was given a RX for Xanax 0.25 mg and will take 1 every 4 hours as needed for panic attack. She was given literature at [facility] about anxiety disorders, panic attacks and medical and non-pharmacologic treatments for anxiety with panic attacks. She will follow-up with Dr. Gamez in the office in 1-[address] Lei in 2-3 weeks. She is also going to follow-up with Dr. Mahajan in the future. GENERAL: alert, oriented X 3, Cooperative, NAD ORAL: moist mucosa, no mucosal lesions NECK: No JVD, supple, trachea midline LUNGS: CTA, symmetric chest expansion, no conversational dyspnea, not tachypneic, no accessory muscle use HEART: RRR, Normal S1 and S2, no rub, no gallop, she has a mechanical valve click at the second RICS ABDOMEN: soft, NT, ND, BS present, no guarding with palpation, obese EXTREMITIES: no edema, no cyanosis, no calf tenderness SKIN: No rashes, no breakdown NEUROLOGIC: no focal neurologic deficits PSYCH: appropriate, normal affect, pleasant This note was generated with [email or web address] dictation software. It may contain incorrect words, spelling, and punctuation that were not noted in checking the note before signing. Patient Problems: Active and Suspected Problems Chest pain at rest (Acute) Chest pain (Acute) - Physical Exam Vital Signs Temp Pulse Resp BP Pulse Ox 97.9 F 69 18 132/56 H 95 04/25/18 08:16 04/25/18 11:17 04/25/18 08:16 04/25/18 08:16 04/25/18 08:16 Oxygen Flow Rate (L/min) 2 Oxygen Delivery Method Room Air Weight: 229 lb 15.074 oz Body Mass Index (BMI) 41.1 Intake and Output for Last 24 Hours 04/23/18 04/24/18 04/25/18 23:59 23:59 23:59 Intake Total 2149.2 / 2149.2 2550 / 2550 1460 / 1460 Output Total 2275 / 2275 1500 / 1500 Balance -125.8 / -125.8 1050 / 1050 1460 / 1460 Microbiology Past 72 Hours 04/23/18 16:55 Urine Culture - Final Urine Catheter - Catheter Presumptive E. coli 04/22/18 09:15 Urine Culture - Final Urine, Clean Catch Presumptive E. coli Laboratory Tests Past 24 Hrs 04/25/18 05:30 PT 24.3 H INR 2.2 POC Glucose 04/25/18 04/25/18 04/24/18 11:09 06:29 21:59 POC Glucose 250 H 194 H 208 H 04/24/18 15:40 POC Glucose 267 H Discharge Activity: Return to Normal Activity Call your doctor if you observe: Fever of 101 or Higher, Shortness of breath, Dizziness, Fainting spells, Swelling in the ankles, Chest pain, Calf discomfort, - - palpitations Home Medications: Medications to take at Discharge Aspirin [Aspirin EC] 81 mg PO DAILY 10/23/16 Furosemide [Lasix] 20 mg PO DAILY 10/23/16 Lansoprazole [Prevacid] 30 mg PO BID 10/23/16 Loratadine 10 mg PO DAILY 10/23/16 Losartan Potassium [Cozaar] 100 mg PO QHS 10/23/16 Metformin(XR) [Glucophage Xr] 1,000 mg PO BID 10/23/16 Polyethylene Glycol 3350 17 gm PO DAILY PRN 10/23/16 Warfarin [Coumadin] 6 mg PO SUMOWEFRSA 10/23/16 glipiZIDE [Glucotrol] 10 mg PO DAILY@0730 10/23/16 Atorvastatin Calcium [Lipitor] 20 mg PO QHS 03/26/18 Ferrous Sulfate 325 mg PO BIDCM 03/26/18 Meclizine HCl [Antivert] 25 mg PO TID PRN PRN 03/26/18 Mupirocin [Bactroban] 1 applicatio NASAL TID PRN 03/26/18 Nitroglycerin [Nitrostat] 0.4 mg SUBLINGUAL Q5M PRN 03/26/18 Nystatin 1 applicatio TP BID PRN 03/26/18 Oxybutynin Chloride [Ditropan Xl] 10 mg PO DAILY 03/26/18 Tizanidine HCl 4 mg PO QHS PRN 03/26/18 Warfarin Sodium 3 mg PO TUTH 03/26/18 Amlodipine [Norvasc] 10 mg PO DAILY #30 tablet 03/28/18 Atenolol [Tenormin (beta yi)] 50 mg PO DAILY #30 tablet 03/28/18 Isosorbide Mononitrate [Imdur] 120 mg PO DAILY #30 tablet 03/28/18 Amiodarone HCl [Cordarone] 200 mg PO DAILY #30 tablet 04/13/18 Linagliptin [Tradjenta] 5 mg PO DAILY #30 tablet 04/13/18 Magnesium Oxide [Mag-Ox 400] 400 mg PO DAILYCM #30 tablet 04/13/18 Potassium Chloride [K-Dur] 20 meq PO DAILYCM #30 tablet 04/13/18 busPIRone [Buspar] 5 mg PO TID #90 tablet 04/13/18 Albuterol IH (ProAir) [Proair Hfa] 2 puff INHALATION Q4H PRN PRN 04/18/18 Alprazolam [Xanax] 0.25 mg PO Q6H PRN PRN #20 tab 04/25/18 Amoxicillin [Amoxil] 500 mg PO Q8H #30 capsule 04/25/18 Ranolazine [Ranexa] 500 mg PO BID #60 tablet 04/25/18 Following Prescrptions Were Given to Patient: Alprazolam [Xanax] 0.25 mg PO Q6H PRN PRN #20 tab PRN Reason: panic attack Amoxicillin [Amoxil] 500 mg PO Q8H #30 capsule Ranolazine [Ranexa] 500 mg PO BID #60 tablet Primary Care Physician: Collin Gamez MD [Primary Care Provider] - Please follow up with your Primary Care Physician in: 1-2 weeks Please Follow Up With: Puneet Lei MD When: 2-3 weeks Please Follow Up With: Jasmina Mahajan MD When: as needed Patient Instructions: Your Body's Response to Anxiety, Understanding Panic Disorder (Panic Attack) Disposition: Home Minutes spent on discharge:: 35 Patient Condition:: Good Medical Necessity - Tobacco Use Smoking Status: Former smoker Tobacco Use: Cigarettes Meaningful Use Info Meaningful Use Diagnoses (Choose all that apply): None applicable Code Visit Inpatient E&M: 75570 Disch Hosp
--- NOTE | 2018-04-25 14:28 | DS.PCM_ITS ---
Discharge Date and Diagnosis - Problem List Patient Problems: Active and Suspected Problems Chest pain at rest (Acute) Chest pain (Acute) Date of Admission: 04/18/18 Date of Discharge: 04/25/18 - Primary Discharge Diagnosis Active and Suspected Problems unstable angina/ACS Hematuria Cystitis due to E. Coli - Secondary Discharge Diagnosis Chronic Problems HLD (hyperlipidemia) (Chronic) Moderate aortic stenosis (Chronic) Morbid obesity (Chronic) Paroxysmal atrial fibrillation with RVR (Chronic) H/O prosthetic aortic valve replacement (Chronic) 1994 CAD (coronary artery disease) (Chronic) Hx of CABG (Chronic) Type 2 diabetes mellitus (Chronic) Hypertension (Chronic) Chronic obstructive lung disease (Chronic) Hospital Course and Treatment Imaging Results: Clinical Impression(s) from Imaging Studies Chest X-Ray 04/18/18 02:50 IMPRESSION: Postoperative changes and mild cardiomegaly without evidence of acute cardiopulmonary disease. Electronically Signed: Brittany Newman MD at 3:12 EST , Service support , Dr. Jasmina Mahajan -urology Dr. Puneet Lei-[place] [facility] Operations: None Procedures: Cardiac catheterization - [place] multivessel coronary artery disease, SHELBY to LAD patent, SVG to LCx occluded, SVG to RCA occluded, aortic valve: Mechanical bileaflet opening and closing appropriately. Attempt was made to PTCA the RCA but the vessel was too heavily calcified and the procedure was not successful Summary of Care Provided: Mrs Pablo is a 68 YO female with a PMH of DM II, CAD with hx of CABG, mechanical AVR,COPD, HTN, paroxysmal atrial fibrillation, chronic anticoagulation with warfarin, anxiety and obesity who presented to the emergency department at [facility] on 04/18/2018 complaining of chest pain radiating into both sides of her neck. It was a associated with shortness of breath and diaphoresis. Earlier in the month she had a stress test that was negative for ischemia. She has had 2 recent admissions for paroxysmal atrial fibrillation with rapid ventricular response. He was admitted to a monitored bed and serial cardiac enzymes were ordered. Troponin x3 was less than 0.015. She was seen in consultation by Dr. Puneet Lei who felt that since this was her third admission in less than 30 days for chest pain that she should have a cardiac catheterization. The patient was agreeable. Cardiac catheterization was done on 04/20/2018 and revealed a 100% occlusion of the saphenous vein graft to the RCA, occluded left circumflex saphenous vein graft and a patent SHELBY to the LAD. The AV was a bileaflet valve which opened and closed appropriately. She was referred for PCI but the RCA was heavily calcified and could not be successfully dilated. The preprocedure stenosis was 95-100% and post procedure the RCA had a 80% stenosis. She was started on Ranexa. The INR at admission was 4 and she had gross hematuria. Warfarin was held and she was started on a Heparin drip when the INR dropped below 2. she was seen in consult by Dr. Mahajan from urology. The urine cleared and the aden was removed. The patient is going to follow up with Dr. Mahajan in the office f or renal imaging for hematuria and possible cystoscopy. Warfarin was restarted and a heparin infusion was used to bridge. She had no further hematuria. She began c/o urinary frequency and a straight cath was done and the urine was sent for culture which grew a saunders-sensitive E. Coli. She was started on Amoxil 500 mg TID. She was discharged home on 04/25/18. She will be continued on Buspar which has significantly improved her anxiety and she was given a RX for Xanax 0.25 mg and will take 1 every 4 hours as needed for panic attack. She was given literature [facility] about anxiety disorders, panic attacks and medical and non- pharmacologic treatments for anxiety with panic attacks. She will follow-up with Dr. Gamez in the office in 1-[address] Lei in 2-3 weeks. She is also going to follow-up with Dr. Mahajan in the future. GENERAL: alert, oriented X 3, Cooperative, NAD ORAL: moist mucosa, no mucosal lesions NECK: No JVD, supple, trachea midline LUNGS: CTA, symmetric chest expansion, no conversational dyspnea, not tachypneic, no accessory muscle use HEART: RRR, Normal S1 and S2, no rub, no gallop, she has a mechanical valve click at the second RICS ABDOMEN: soft, NT, ND, BS present, no guarding with palpation, obese EXTREMITIES: no edema, no cyanosis, no calf tenderness SKIN: No rashes, no breakdown NEUROLOGIC: no focal neurologic deficits PSYCH: appropriate, normal affect, pleasant This note was generated with [employer] dictation software. It may contain incorrect words, spelling, and punctuation that were not noted in checking the note before signing. Patient Problems: Active and Suspected Problems Chest pain at rest (Acute) Chest pain (Acute) - Physical Exam Vital Signs Temp Pulse Resp BP Pulse Ox 97.9 F 69 18 132/56 H 95 04/25/18 08:16 04/25/18 11:17 04/25/18 08:16 04/25/18 08:16 04/25/18 08:16 Oxygen Flow Rate (L/min) 2 Oxygen Delivery Method Room Air Weight: 229 lb 15.074 oz Body Mass Index (BMI) 41.1 Intake and Output for Last 24 Hours 04/23/18 04/24/18 04/25/18 23:59 23:59 23:59 Intake Total 2149.2 / 2149.2 2550 / 2550 1460 / 1460 Output Total 2275 / 2275 1500 / 1500 Balance -125.8 / -125.8 1050 / 1050 1460 / 1460 Microbiology Past 72 Hours 04/23/18 16:55 Urine Culture - Final Urine Catheter - Catheter Presumptive E. coli 04/22/18 09:15 Urine Culture - Final Urine, Clean Catch Presumptive E. coli Laboratory Tests Past 24 Hrs 04/25/18 05:30 PT 24.3 H INR 2.2 POC Glucose 04/25/18 04/25/18 04/24/18 11:09 06:29 21:59 POC Glucose 250 H 194 H 208 H 04/24/18 15:40 POC Glucose 267 H Discharge Activity: Return to Normal Activity Call your doctor if you observe: Fever of 101 or Higher, Shortness of breath, Dizziness, Fainting spells, Swelling in the ankles, Chest pain, Calf discomfort, - - palpitations Home Medications: Medications to take at Discharge Aspirin [Aspirin EC] 81 mg PO DAILY 10/23/16 Furosemide [Lasix] 20 mg PO DAILY 10/23/16 Lansoprazole [Prevacid] 30 mg PO BID 10/23/16 Loratadine 10 mg PO DAILY 10/23/16 Losartan Potassium [Cozaar] 100 mg PO QHS 10/23/16 Metformin(XR) [Glucophage Xr] 1,000 mg PO BID 10/23/16 Polyethylene Glycol 3350 17 gm PO DAILY PRN 10/23/16 Warfarin [Coumadin] 6 mg PO SUMOWEFRSA 10/23/16 glipiZIDE [Glucotrol] 10 mg PO DAILY@0730 10/23/16 Atorvastatin Calcium [Lipitor] 20 mg PO QHS 03/26/18 Ferrous Sulfate 325 mg PO BIDCM 03/26/18 Meclizine HCl [Antivert] 25 mg PO TID PRN PRN 03/26/18 Mupirocin [Bactroban] 1 applicatio NASAL TID PRN 03/26/18 Nitroglycerin [Nitrostat] 0.4 mg SUBLINGUAL Q5M PRN 03/26/18 Nystatin 1 applicatio TP BID PRN 03/26/18 Oxybutynin Chloride [Ditropan Xl] 10 mg PO DAILY 03/26/18 Tizanidine HCl 4 mg PO QHS PRN 03/26/18 Warfarin Sodium 3 mg PO TUTH 03/26/18 Amlodipine [Norvasc] 10 mg PO DAILY #30 tablet 03/28/18 Atenolol [Tenormin (beta yi)] 50 mg PO DAILY #30 tablet 03/28/18 Isosorbide Mononitrate [Imdur] 120 mg PO DAILY #30 tablet 03/28/18 Amiodarone HCl [Cordarone] 200 mg PO DAILY #30 tablet 04/13/18 Linagliptin [Tradjenta] 5 mg PO DAILY #30 tablet 04/13/18 Magnesium Oxide [Mag-Ox 400] 400 mg PO DAILYCM #30 tablet 04/13/18 Potassium Chloride [K-Dur] 20 meq PO DAILYCM #30 tablet 04/13/18 busPIRone [Buspar] 5 mg PO TID #90 tablet 04/13/18 Albuterol IH (ProAir) [Proair Hfa] 2 puff INHALATION Q4H PRN PRN 04/18/18 Alprazolam [Xanax] 0.25 mg PO Q6H PRN PRN #20 tab 04/25/18 Amoxicillin [Amoxil] 500 mg PO Q8H #30 capsule 04/25/18 Ranolazine [Ranexa] 500 mg PO BID #60 tablet 04/25/18 Following Prescrptions Were Given to Patient: Alprazolam [Xanax] 0.25 mg PO Q6H PRN PRN #20 tab PRN Reason: panic attack Amoxicillin [Amoxil] 500 mg PO Q8H #30 capsule Ranolazine [Ranexa] 500 mg PO BID #60 tablet Primary Care Physician: Collin Gamez MD [Primary Care Provider] - Please follow up with your Primary Care Physician in: 1-2 weeks Please Follow Up With: Puneet Lei MD When: 2-3 weeks Please Follow Up With: Jasmina Mahajan MD When: as needed Patient Instructions: Your Body's Response to Anxiety, Understanding Panic Disorder (Panic Attack) Disposition: Home Minutes spent on discharge:: 35 Patient Condition:: Good Medical Necessity - Tobacco Use Smoking Status: Former smoker Tobacco Use: Cigarettes Meaningful Use Info Meaningful Use Diagnoses (Choose all that apply): None applicable Code Visit Inpatient E&M: 54607 Disch Hosp
[2018-04-25 14:40] VITALS: BP 133/64; PULSE 71; RESP 18; TEMP 35.9; O2SAT 95
--- NOTE | 2018-04-26 14:40 | CASEMGMT ---
RN CM DC Phone Call DC DATE: 04/25/18 DC Disposition: Home LACE 05/08 Intro role of CM to patient via phone. Pt states she is feeling better, no questions re: dc instructions, f/u or prescriptions. Pt states care @ [facility] was excellent and no suggestions for improvement. Kevin REYESN RN ACM
== END 2018-04-25 15:12 | disposition home or self-care (01) | DRG 251 ==
LOC: ED 02:52 → PCU 04:37 → ICU 04-20 16:44 → MS2 04-21 12:41
PROVIDERS: Internal Medicine Cardiovascular Disease; Urology; Admitting Provider Hospitalist; Emergency Provider Emergency Medicine; Family Provider Family Medicine; PCP Family Medicine; Visit Provider Internal Medicine
DX: I25.110 Atherosclerotic heart disease of native coronary artery with unstable angina pectoris (principal); I24.9 Acute ischemic heart disease, unspecified; I16.1 Hypertensive emergency; Z68.41 Body mass index [BMI] 40.0-44.9, adult; I25.710 Atherosclerosis of autologous vein coronary artery bypass graft(s) with unstable angina pectoris; E66.01 Morbid (severe) obesity due to excess calories; J44.9 Chronic obstructive pulmonary disease, unspecified; N32.81 Overactive bladder; I48.0 Paroxysmal atrial fibrillation; E78.5 Hyperlipidemia, unspecified; E11.65 Type 2 diabetes mellitus with hyperglycemia; I10 Essential (primary) hypertension; R31.0 Gross hematuria; I35.0 Nonrheumatic aortic (valve) stenosis; N30.90 Cystitis, unspecified without hematuria; B96.20 Unspecified Escherichia coli [E. coli] as the cause of diseases classified elsewhere; Z79.899 Other long term (current) drug therapy; Z95.2 Presence of prosthetic heart valve; Z95.1 Presence of aortocoronary bypass graft; Z79.01 Long term (current) use of anticoagulants; Z87.891 Personal history of nicotine dependence; Z79.84 Long term (current) use of oral hypoglycemic drugs
CPT/HCPCS: 36415; 71045; 80048; 80061; 81001; 82962; 83735; 84484; 85025; 85610; 85730; 87086; 87088; 87186; 88108; 88313; 92920; 93005; 93455; 97802; 99152; 99153; 99282; J7030; Q9967; A4216; C1725; C1769; C1874; C1887; C1894; J0583

== ENCOUNTER 2018-05-08 14:41 | Emergency (ER) | payer MEDICARE, SELFPAY ==
[2018-04-18 05:41] VITALS: BMI 41.1
[2018-05-08] VITALS (11 sets, daily range): BP systolic 131–144; BP diastolic 38–62; PULSE 43–68; RESP 16–20; TEMP 36.8; O2SAT 97–99; BMI 41.1
--- NOTE | 2018-05-08 15:05 | RAD_ITS ---
STUDY: X-RAY CHEST REASON FOR EXAM: Female, 68 years old. Chest pain and chest pressure. TECHNIQUE: Single AP portable view of the chest. COMPARISON: Comparison is made with prior study dated April 18, 2018. FINDINGS: EKG electrodes are seen. Findings suggestive of a minimal degree of vascular congestion. There is no demonstrated pleural abnormality. Sternal cerclage wires and vascular clips are present from a prior sternotomy and coronary artery bypass graft procedure (CABG). Cardiomegaly. Normal mediastinum and janice. Normal visualized pulmonary arteries. There is atherosclerotic calcification of the aortic arch with tortuosity. Normal visualized thoracic spine. Normal visualized ribs, clavicles, and shoulders. There is no demonstrated abnormality of the visualized soft tissue structures of the upper abdomen. RAD/Chest 1 View (Portable) IMPRESSION: Findings suggestive of a mild degree of vascular congestion. Electronically Signed: Krishan Booker MD at 15:45 EST Tel [phone], Service support ,
--- NOTE | 2018-05-08 15:05 | EKG12_ITS ---
Test Reason : REPEAT EKG Blood Pressure : / mmHG Vent. Rate : 044 BPM Atrial Rate : 044 BPM P-R Int : 172 ms QRS Dur : 104 ms QT Int : 488 ms P-R-T Axes : 018 071 081 degrees QTc Int : 417 ms Marked sinus bradycardia Nonspecific ST abnormality Abnormal ECG Confirmed by JENNIFEFR ONEAL, NIEVES ([id number]), food editor SOUMYA BARTH ([id number]) on 05/10/2018 3:49:17 PM Referred By: BALTAZAR Confirmed By:NIEVES ABAD MD
[2018-05-08 15:19] LABS: Absolute Lymphocyte Count 1.19 X10^3/ul (0.83-4.51); Absolute Neutrophil Count 4.6 X10^3/uL (2.0-7.7); Basophil# 0.04 X10^3/uL; Basophil% 0.6 % (0-1); Eosinophils% 3.1 % (0-5); Hematocrit 35.1 % (37-47); Hemoglobin 11.3 g/dl (12.0-15.0); Lymphocyte # 1.19 X10^3/ul (4.0); Lymphocyte % 18.4 % (19-41); Mean Corp Hgb Conc 32.2 g/gl (32-36); Mean Corpuscular Hgb 26.9 pg (27.0-32.0); Mean Corpuscular Volume 83.6 fL (81-99); Mean Platelet Vol. 11.2 fl (6.2-12.0); Monocyte# 0.38 X10^3/uL; Monocyte% 5.9 % (0-10); Neutrophil # 4.62 X10^3/uL (2.7-7.7); Neutrophil % 71.5 % (47-70); Platelet Count 196 K/mm3 (150-450); RBC Distribution Width CV 16.9 % (11.6-14.6); RBC Distribution Width SD 50.1 fl (35.1-43.9); White Blood Count 6.5 K/mm3 (4.4-11.0)
[2018-05-08] MEDS: Aspirin 81 MG TAB.CHEW 324 MG PO (15:26)
[2018-05-08 15:27] LABS: Anion Gap 9 (5-15); BUN 14 mg/dL (7-18); BUN/Creat Ratio 17.5 RATIO (10-20); Calcium,Total 8.3 mg/dL (8.5-10.1); Chloride 107 mmol/L (98-107); EST Glomerular Filtration Rate 76 mL/min (>60); Est Glom Filt Rate - Afr Amer 91 mL/min (>60); Glucose 186 mg/dL (74-106); Potassium 4.3 mmol/L (3.5-5.1); Sodium Level 138 mmol/L (136-145)
[2018-05-08 15:29] LABS: International Normalized Ratio 2.6; Prothrombin Time (Protime)PT. 28.3 SECONDS (11.7-14.9)
[2018-05-08 15:30] LABS: Partial Thromboplast Time 48.8 Seconds (24.1-36.2)
[2018-05-08 15:31] LABS: POSITIVE COUNT NO; POSITIVE DIFFERENTIAL NO; POSITIVE MORPHOLOGY NO
[2018-05-08] MEDS: Ipratropium 0.5 MG/2.5 ML SOLUTION INHALATION (16:37)
--- NOTE | 2018-05-08 16:43 | EKG12_ITS ---
Test Reason : CHEST PAIN Blood Pressure : / mmHG Vent. Rate : 048 BPM Atrial Rate : 048 BPM P-R Int : 174 ms QRS Dur : 110 ms QT Int : 496 ms P-R-T Axes : 029 074 062 degrees QTc Int : 443 ms Sinus bradycardia Otherwise normal ECG Confirmed by JENNIFFER ONEAL, NIEVES ([id number]), technical editor SOUMYA BARTH ([id number]) on 05/10/2018 3:55:17 PM Referred By: DAVID Confirmed By:NIEVES ABAD MD
--- NOTE | 2018-05-08 16:43 | ED.VISSUMM ---
- ER Visit Summary Date of Service: 05/08/18 Chief Complaint: Chest pain History of Present Illness: The patient is a 68 F who presents for the evaluation of chest pain. Patient states that today at approximately 1330 hrs. while doing dishes she suddenly got dizzy weak and developed a pressure in her chest. She felt that maybe her blood sugar was low so she took it was 117. She felt her heart fluttering so she took her heart rate and blood pressure and they were lower than normal for her. She states her heart rate typically is in the 50-70 range. Patient has cardiac history of having had a mechanical aortic valve replacement and is on Coumadin. She also has a history of having had a CABG in 1996. She is on amiodarone and also takes 50 of atenolol a day. Also history of COPD and lung cancer. She is recently treated with amoxicillin and a cough medicine through her primary care physician for what sounds like a bronchitis. In March she was admitted several times for chest pain and her last admission underwent cardiac catheterization. She was found to have multivessel coronary artery disease her SHELBY graft to the LAD was patent. Her SVG graft to the LCx was occluded. Her SVG graft to the RCA was occluded. The proximal right coronary artery was moderate to large sized in a long acute marginal branch was unprotected. There is a mild calcification and eccentric 95% stenosis. It was made to stent this and was unsuccessful due to underlying calcification. Because of this it was felt that if despite medical management she was continued to have symptoms that she would need referral to tertiary care facility for high risk pCI. Physical Examination: Afebrile heart rate noted at 47 otherwise vital signs are stable Gen: Well-nourished well-developed obese Head: Normocephalic atraumatic Eyes: Perrl EOMI ENT: TMs clear no rhinorrhea moist mucous membranes Neck: Supple no lymphadenopathy no JVD nontender CVS: Regular rate bradycardic rhythm no murmurs normal S1-S2 Respiratory: No distress clear to auscultation bilaterally chest nontender Abdomen: Soft nontender nondistended normal bowel sounds no masses Back: Nontender Extremity: Nontender 1+ bilateral edema Skin: Normal color no rash Neuro: alert orientated ?3 CN II-XII intact normal strength sensation reflexes gait cerebellar Psych: Normal affect normal mood Test Results: EKG showed a sinus bradycardia at a rate of 48. CBC showed a hemoglobin 11.3. Glucose of 186. INR 2.6. Troponin less than 0.015. Chest x-ray showed no acute findings. Emergency Department Course and Treatment: Patient was discussed with Dr. Lei who confirms that the patient should be transferred. Patient has requested [facility]. I have contacted [facility]. Impression: 1. Acute chest pain 2. Coronary artery disease This note was generated with [employer] dictation software. It may contain incorrect words, spelling, and punctuation that were not noted in review of the chart prior to signing ED Disposition - Plan for ED Patient: Chief Complaint: Chest Pain Referrals: Collin Gamez MD [Primary Care Provider] -
--- NOTE | 2018-05-08 16:48 | ED.DCSUM_ITS ---
- ER Visit Summary Date of Service: 05/08/18 Chief Complaint: Chest pain History of Present Illness: The patient is a 68 F who presents for the evaluation of chest pain. Patient states that today at approximately 1330 hrs. while doing dishes she suddenly got dizzy weak and developed a pressure in her chest. She felt that maybe her blood sugar was low so she took it was 117. She felt her heart fluttering so she took her heart rate and blood pressure and they were lower than normal for her. She states her heart rate typically is in the 50-70 range. Patient has cardiac history of having had a mechanical aortic valve replacement and is on Coumadin. She also has a history of having had a CABG in 1996. She is on amiodarone and also takes 50 of atenolol a day. Also history of COPD and lung cancer. She is recently treated with amoxicillin and a cough medicine through her primary care physician for what sounds like a bronchitis. In March she was admitted several times for chest pain and her last admission underwent cardiac catheterization. She was found to have multivessel coronary artery disease her SHELBY graft to the LAD was patent. Her SVG graft to the LCx was occluded. Her SVG graft to the RCA was occluded. The proximal right coronary artery was moderate to large sized in a long acute marginal branch was unprotected. There is a mild calcification and eccentric 95% stenosis. It was made to stent this and was unsuccessful due to underlying calcification. Because of this it was felt that if despite medical management she was continued to have symptoms that she would need referral to tertiary care facility for high risk pCI. Physical Examination: Afebrile heart rate noted at 47 otherwise vital signs are stable Gen: Well-nourished well-developed obese Head: Normocephalic atraumatic Eyes: Perrl EOMI ENT: TMs clear no rhinorrhea moist mucous membranes Neck: Supple no lymphadenopathy no JVD nontender CVS: Regular rate bradycardic rhythm no murmurs normal S1-S2 Respiratory: No distress clear to auscultation bilaterally chest nontender Abdomen: Soft nontender nondistended normal bowel sounds no masses Back: Nontender Extremity: Nontender 1+ bilateral edema Skin: Normal color no rash Neuro: alert orientated ?3 CN II-XII intact normal strength sensation reflexes gait cerebellar Psych: Normal affect normal mood Test Results: EKG showed a sinus bradycardia at a rate of 48. CBC showed a hemoglobin 11.3. Glucose of 186. INR 2.6. Troponin less than 0.015. Chest x- ray showed no acute findings. Emergency Department Course and Treatment: Patient was discussed with Dr. Lei who confirms that the patient should be transferred. Patient has requested [facility]. I have contacted [facility]. Impression: 1. Acute chest pain 2. Coronary artery disease This note was generated with [employer] dictation software. It may contain incorrect words, spelling, and punctuation that were not noted in review of the chart prior to signing ED Disposition - Plan for ED Patient: Chief Complaint: Chest Pain Referrals: Collin Gamez MD [Primary Care Provider] -
--- NOTE | 2018-05-08 17:06 | NURSING ---
CALLED [facility] TRANSFER LINE, TALKED TO LASHONDA. SHE WILL HAVE A PHYSICAN CALL US BACK
--- NOTE | 2018-05-08 17:50 | NURSING ---
DR WEI , CARDIOLOGY [facility], FOR DR LEDESMA
[2018-05-08] MEDS: ALPRAZolam 0.5 MG Tablet PO (19:39)
--- NOTE | 2018-05-08 20:04 | NURSING ---
CALLED [facility] MAIN AND ASKED ABOUT ROOM ASSIGNMENT AND WAS TOLD THERE'S A REQUEST BUT NO ROOM ASSIGNED YET.
--- NOTE | 2018-05-08 21:53 | NURSING ---
ROOM [id number] [phone] REPORT
--- NOTE | 2018-05-08 22:36 | ED.RN ---
ATTEMPTED TO CALL REPORT. OFFICE PHONES RING TROUGH TO FLOOR AND TRANSFER LINE NUMBER, RECORD STATES THESE CALLS CANNOT BE CONNECTED. HOSPITAL COUNTERSINKER TRIED BOTH LINES WELL WITH SIMILAR RESULTS. I USED MY PERSONAL PHONE, BOTH LINES RING FOR AN EXTENDED PERIOD, NO ANSWER, PHONE CALL IS DROPPED. WILL ATTEMPT TO CALL REPORT LATER.
== END 2018-05-08 23:10 | disposition short-term general hospital (02) ==
PROVIDERS: Emergency Provider Emergency Medicine; Family Provider Family Medicine; PCP Family Medicine
DX: R07.9 Chest pain, unspecified (principal); I25.110 Atherosclerotic heart disease of native coronary artery with unstable angina pectoris; R60.0 Localized edema; E66.9 Obesity, unspecified; J44.9 Chronic obstructive pulmonary disease, unspecified; E11.9 Type 2 diabetes mellitus without complications; I10 Essential (primary) hypertension; E78.00 Pure hypercholesterolemia, unspecified; I48.91 Unspecified atrial fibrillation; Z85.118 Personal history of other malignant neoplasm of bronchus and lung; Z95.2 Presence of prosthetic heart valve; Z95.1 Presence of aortocoronary bypass graft; Z79.01 Long term (current) use of anticoagulants; Z79.82 Long term (current) use of aspirin; Z79.84 Long term (current) use of oral hypoglycemic drugs; Z79.899 Other long term (current) drug therapy; Z87.891 Personal history of nicotine dependence
CPT/HCPCS: 71045; 80048; 84484; 85025; 85610; 85730; 93005; 94640; 99285; A4216

== ENCOUNTER 2018-07-01 13:04 | Emergency (ER) | payer MEDICARE, SELFPAY ==
[2018-05-08 14:43] VITALS: BMI 41.1
[2018-07-01 13:06] VITALS: BP 144/65; PULSE 89; RESP 20; TEMP 35.9; O2SAT 97; BMI 35.5
--- NOTE | 2018-07-01 13:28 | RAD_ITS ---
STUDY: X-RAY CHEST REASON FOR EXAM: Female, 68 years old. Shortness of breath, dyspnea TECHNIQUE: AP COMPARISON: 05/08/2018 FINDINGS: EKG leads project over the chest. Slight amount of atelectasis in the left lung base is new since the prior study. No pneumothorax. No sizable pleural effusion. There is mild cardiac enlargement. Intervening new sternotomy with placement of cardiac valves including aortic valve (revision). Normal mediastinum and janice. Normal visualized pulmonary arteries. Normal visualized aortic arch and descending thoracic aorta. No acute bony process. There is no demonstrated abnormality of the visualized soft tissue structures of the upper abdomen. RAD/Chest 1 View (Portable) IMPRESSION: 1. No airspace consolidation or pleural effusion. 2. Slight atelectasis or scarring left lung base. 3. Cardiac valve replacement with new sternotomy. Electronically Signed: Charly Jimenez MD at 14:34 EDT , Service support ,
--- NOTE | 2018-07-01 13:32 | ED.DCSUM_ITS ---
- ER Visit Summary Date of Service: 07/01/18 Chief Complaint: Cough congestion History of Present Illness: The patient is a 68 F with 2-day history of cough and congestion. Now she feels like it settled in her bronchi, she has yellow sputum. She denies any fever chills or chest pain. She was seen at an urgent care center. She denies any back pain abdominal pain or urinary symptoms. Physical exam reveals no acute distress, moist mucous membranes there is postnasal drip and some rhinorrhea. Lungs are coarse bilaterally some bronchial breath sounds, scant wheezing. Regular rate and rhythm, abdomen is soft and nontender normal exam of the Emergency Department Course and Treatment: Patient has COPD, her symptoms worsen, her sputum has changed and increased, therefore she meets criteria for antibiotic treatment. She otherwise appears well and had an unremarkable workup Discharge stable condition Impression: [Bronchitis COPD exacerbation] This note was generated with [employer] dictation software. It may contain incorrect words, spelling, and punctuation that were not noted in review of the chart prior to signing ED Disposition - Plan for ED Patient: Disposition: Home or Assisted Living Instructions: ED COPD Flare Prescriptions: Azithromycin 250 mg PO DAILY 5 Days #6 tab Referrals: Collin Gamez MD [Primary Care Provider] -
[2018-07-01] MEDS: Ipratropium/Albuterol Sulfate 3 ML AMPUL.NEB INHALATION (13:47)
[2018-07-01 13:48] VITALS: PULSE 83; RESP 16; O2SAT 96
[2018-07-01 13:57] LABS: Absolute Lymphocyte Count 0.92 X10^3/ul (0.83-4.51); Absolute Neutrophil Count 4.5 X10^3/uL (2.0-7.7); Basophil# 0.06 X10^3/uL; Eosinophil# 0.21 X10^3/uL; Eosinophils% 3.4 % (0-5); Hematocrit 30.6 % (37-47); Hemoglobin 9.3 g/dl (12.0-15.0); Lymphocyte # 0.92 X10^3/ul (4.0); Lymphocyte % 14.9 % (19-41); Mean Corp Hgb Conc 30.4 g/gl (32-36); Mean Corpuscular Hgb 25.5 pg (27.0-32.0); Mean Corpuscular Volume 84.1 fL (81-99); Mean Platelet Vol. 10.8 fl (6.2-12.0); Monocyte# 0.47 X10^3/uL; Monocyte% 7.6 % (0-10); Neutrophil # 4.48 X10^3/uL (2.7-7.7); Neutrophil % 72.8 % (47-70); POSITIVE COUNT NO; POSITIVE DIFFERENTIAL NO; POSITIVE MORPHOLOGY NO; Platelet Count 208 K/mm3 (150-450); RBC Distribution Width CV 16.1 % (11.6-14.6); RBC Distribution Width SD 47.7 fl (35.1-43.9); Red Blood Count 3.64 M/mm3 (4.2-5.4); White Blood Count 6.2 K/mm3 (4.4-11.0)
[2018-07-01 13:58] VITALS: O2SAT 96
[2018-07-01 14:04] LABS: International Normalized Ratio 2.6; Prothrombin Time (Protime)PT. 27.8 SECONDS (11.7-14.9)
[2018-07-01 14:15] LABS: ALB/GLOB Ratio 1.1 RATIO (0.9-2.4); AST(SGOT) 21 U/L (15-37); Alanine Aminotransfer ALT/SGPT 20 U/L (13-56); Albumin, Serum 3.6 g/dL (3.2-5.0); Alkaline Phosphatase 93 U/L (45-117); Anion Gap 10 (5-15); BUN 9 mg/dL (7-18); BUN/Creat Ratio 16.9 RATIO (10-20); Calcium,Total 8.7 mg/dL (8.5-10.1); Chloride 106 mmol/L (98-107); Creatinine, Serum 0.53 mg/dL (0.55-1.02); EST Glomerular Filtration Rate 121 mL/min (>60); Est Glom Filt Rate - Afr Amer 147 mL/min (>60); Estimated Creatinine Clearance 43.92 ml/min; Globulin 3.4 g/dL (2.2-4.2); Glucose 107 mg/dL (74-106); Potassium 3.6 mmol/L (3.5-5.1); Sodium Level 140 mmol/L (136-145)
--- NOTE | 2018-07-01 15:42 | ED.DEP ---
ED Disposition - Plan for ED Patient: Disposition: Home or Assisted Living Instructions: ED COPD Flare Prescriptions: Azithromycin 250 mg PO DAILY 5 Days #6 tab Guaifenesin [Mucinex] 600 mg PO BID #20 tab.er.12h Referrals: Collin Gamez MD [Primary Care Provider] - 3-5 Days
[2018-07-01 15:44] VITALS: BP 135/53; PULSE 92; RESP 18; TEMP 36.1; O2SAT 96
== END 2018-07-01 15:45 | disposition home or self-care (01) ==
PROVIDERS: Emergency Provider Emergency Medicine; Family Provider Family Medicine; PCP Family Medicine
DX: J44.1 Chronic obstructive pulmonary disease with (acute) exacerbation (principal); J40 Bronchitis, not specified as acute or chronic; I25.10 Atherosclerotic heart disease of native coronary artery without angina pectoris; E11.9 Type 2 diabetes mellitus without complications; Z79.01 Long term (current) use of anticoagulants; Z79.84 Long term (current) use of oral hypoglycemic drugs; Z79.82 Long term (current) use of aspirin; Z79.899 Other long term (current) drug therapy; Z95.1 Presence of aortocoronary bypass graft
CPT/HCPCS: 71045; 80053; 84484; 85025; 85610; 94640; 99283; A4216

== ENCOUNTER → 2018-07-30 14:14 | Outpatient (CLI) | payer MEDICARE, SELFPAY ==
[2018-07-01 13:06] VITALS: BMI 35.5
[2018-07-30 15:24] LABS: International Normalized Ratio 2.3; Prothrombin Time (Protime)PT. 25.5 SECONDS (11.7-14.9)
== END ==
PROVIDERS: Family Provider Family Medicine; PCP Family Medicine; Referring Provider Family Medicine; Visit Provider Family Medicine
DX: T82.9XXA Unspecified complication of cardiac and vascular prosthetic device, implant and graft, initial encounter (principal)
CPT/HCPCS: 85610

== ENCOUNTER → 2019-01-07 14:08 | Outpatient (CLI) | payer MEDICARE, SELFPAY ==
[2019-01-07 14:34] LABS: International Normalized Ratio 2.4; Prothrombin Time (Protime)PT. 26.1 SECONDS (11.7-14.9)
== END ==
PROVIDERS: Family Provider Family Medicine; PCP Family Medicine; Referring Provider Family Medicine; Visit Provider Family Medicine
DX: I25.10 Atherosclerotic heart disease of native coronary artery without angina pectoris (principal); Z95.2 Presence of prosthetic heart valve
CPT/HCPCS: 85610

== ENCOUNTER → 2019-09-24 | Outpatient (CLI) | payer MEDICARE, MEDICAID, SELFPAY | END | disposition home or self-care (01) | LOC: LABSPEC 13:03 | PROVIDERS: PCP Family Medicine; Referring Provider Family Medicine; Visit Provider Family Medicine | DX: Z95.2 Presence of prosthetic heart valve (principal) ==

== ENCOUNTER → 2020-10-14 | Outpatient (CLI) | payer MEDICARE, MEDICAID, SELFPAY ==
[2020-10-14 16:41] LABS: International Normalized Ratio 2.5
== END | disposition home or self-care (01) ==
PROVIDERS: PCP Family Medicine; Visit Provider Family Medicine
DX: Z95.2 Presence of prosthetic heart valve (principal)
CPT/HCPCS: 85610

== ENCOUNTER → 2021-04-07 10:58 | Outpatient (CLI) | payer MEDICARE, MEDICAID, SELFPAY ==
--- NOTE | 2021-04-07 11:05 | RAD_ITS ---
INDICATION: BACK PAIN EXAMINATION/TECHNIQUE: X-RAY - XR Spine Lumbar 2 or 3 Views COMPARISON: None. FINDINGS: VERTEBRAE: Preserved vertebral body height. No fracture. 3 mm anterolisthesis L4 on L5. Preservation of the normal lumbar lordosis. Severe multilevel facet arthropathy. DISCS: Severe multilevel degenerative disease and spondylosis. INCLUDED ABDOMEN: Included bowel gas pattern is non-obstructive. RAD/Lumbar Spine 2 or 3 Views IMPRESSION: Grade 1 anterolisthesis L4 on L5. Severe multilevel degenerative disease and spondylosis. Electronically Signed: Jim Louis MD at 18:11 EST Tel , Service support ,
--- NOTE | 2021-04-07 11:10 | RAD_ITS ---
INDICATION: NECK PAIN EXAMINATION/TECHNIQUE: X-RAY - XR Spine Cervical 2 or 3 Views COMPARISON: None. FINDINGS: VERTEBRAE: Preserved vertebral body height. No fracture. No spondylolisthesis. Preservation of the normal cervical lordosis. Moderate multilevel facet arthropathy. DISCS: Moderate multilevel degenerative disc disease and spondylosis. NECK SOFT TISSUES: No prevertebral soft tissue widening. LUNG APICES: Clear. RAD/Cerv Spine 2 or 3 Views IMPRESSION: No acute abnormalities. Moderate multilevel degenerative disc disease and spondylosis. Electronically Signed: Jim Louis MD at 17:23 EST Tel , Service support ,
== END ==
PROVIDERS: PCP Family Medicine; Referring Provider Anesthesiology Pain Medicine; Visit Provider Anesthesiology Pain Medicine
DX: M54.2 Cervicalgia (principal); M54.9 Dorsalgia, unspecified
CPT/HCPCS: 72040; 72100

== ENCOUNTER → 2021-09-08 | Outpatient (CLI) | payer MEDICARE, MEDICAID, SELFPAY ==
[2021-09-08 17:29] LABS: International Normalized Ratio 1.9; Prothrombin Time (Protime)PT. 21.8 SECONDS (11.7-14.9)
== END | disposition home or self-care (01) ==
PROVIDERS: PCP Family Medicine; Referring Provider Family Medicine; Visit Provider Family Medicine
DX: Z95.2 Presence of prosthetic heart valve (principal)
CPT/HCPCS: 85610

== ENCOUNTER → 2021-09-24 | Outpatient (CLI) | payer MEDICARE, MEDICAID, SELFPAY ==
[2021-09-24 16:09] LABS: International Normalized Ratio 2.1; Prothrombin Time (Protime)PT. 23.4 SECONDS (11.7-14.9)
== END | disposition home or self-care (01) ==
LOC: LABSPEC 15:39
PROVIDERS: PCP Family Medicine; Visit Provider Family Medicine
DX: Z95.2 Presence of prosthetic heart valve (principal)
CPT/HCPCS: 85610